=== PATIENT | male | born 1975 | race American Indian/Alaskan Native ===

== ENCOUNTER 2018-06-12 22:10 | Inpatient (IN) | payer MEDICAID ==
[2018-06-13] MEDS ORDERED: NACL 0.9% 1000 ML IV ONE (00:13)
[2018-06-13 00:45] LABS: Basophils % (Auto) 0.1 % (0.0-1.8); Eosinophils % (Auto) 0.2 % (0.0-4.3); Hematocrit 37.9 % (35.5-45.6); Hemoglobin 12.5 gm/dl (11.8-15.2); Lymphocytes # (Auto) 0.9 K/mm3 (1.2-5.4); Mean Corpuscular HGB Conc 33 % (32-34); Mean Corpuscular Volume 89 fl (84-94); Monocytes # (Auto) 0.3 K/mm3 (0.0-0.8); Monocytes % (Auto) 5.5 % (0.0-7.3); Platelet Count 197 K/mm3 (140-440); Red Blood Count 4.28 M/mm3 (3.65-5.03); Red Cell Distribution Width 14.5 % (13.2-15.2)
[2018-06-13 01:24] LABS: Alanine Aminotransferase 35 units/L (7-56); Albumin 4.2 g/dL (3.9-5); BUN/Creatinine Ratio 16; Blood Urea Nitrogen 23 mg/dL (9-20); Calcium 9.1 mg/dL (8.4-10.2); Hemolysis Index 37
--- NOTE | 2018-06-13 01:36 | XRay Report ---
FINAL REPORT EXAM: XR CHEST ROUTINE 2V HISTORY: cough, fever TECHNIQUE: PA and lateral views of the chest were submitted. FINDINGS: The lungs are hyperinflated. There is patchy airspace disease in the left lower lobe and lingula comp atible with pneumonia. The right lung is clear. The heart size is normal. Pleural fluid is not seen. The skeletal structures do not show any acute changes. IMPRESSION: COPD. Patchy pneumonia in the left lower lobe and lingula.
[2018-06-13] MEDS ORDERED: ZITHROMAX 500 MG in NACL 0.9% 250ML 250 ML IV ONE (01:49)
[2018-06-13] MEDS ORDERED: ROCEPHIN/NS 2 GM/100 ML 2 GM/100 ML BAG IV ONE (01:49)
--- NOTE | 2018-06-13 02:21 | Emergency Department Report ---
- General Chief Complaint: Upper Respiratory Infection Stated Complaint: FLU LIKE SX Time Seen by Provider: 06/13/18 00:15 Source: patient, EMS Mode of arrival: Ambulatory Limitations: No Limitations - History of Present Illness Initial Comments: Patient is a 42-year-old [place] male who has a past history of HIV who does not know his CD4 count and states he is on medications but does not show which ones who is coming in with 4 days of flulike symptoms. Patient states had a c ough congestion with subjective fevers or throat. Patient also has had body aches and diarrhea as well. Patient denies any vomiting. Patient states he has diarrhea every time he eats. Associated Symptoms: fever, chills, myalgias, diaphoresis, nasal congestion, sore throat, cough, diarrhea, weight loss. denies: headache, rhinorrhea, stiff neck, chest pain, shortness of breath, abdominal pain, nausea, vomiting, rash, confusion, right sweats, epistaxis, hoarseness, ear pain - Related Data Allergies Allergy/AdvReac Type Severity Reaction Status Date / Time No Known Allergies Allergy Verified 06/13/18 01:52 ED Review of Systems ROS: Stated complaint: FLU LIKE SX Other details as noted in HPI Comment: All other systems reviewed and negative ED Past Medical Hx - Past Medical History Previous Medical History?: Yes Hx HIV: Yes - Surgical History Past Surgical History?: No - Social History Smoking Status: Never Smoker ED Physical Exam - General Limitations: No Limitations General appearance: alert, in no apparent distress - Head Head exam: Present: atraumatic, normocephalic - Eye Eye exam: Present: normal appearance - ENT ENT exam: Present: mucous membranes moist - Neck Neck exam: Present: normal inspection - Respiratory Respiratory exam: Present: normal lung sounds bilaterally, rhonchi. Absent: respiratory distress, wheezes, rales, stridor - Cardiovascular Cardiovascular Exam: Present: regular rate, normal rhythm, normal heart sounds. Absent: systolic murmur, diastolic murmur, rubs, gallop - GI/Abdominal GI/Abdominal exam: Present: soft, normal bowel sounds. Absent: distended, tenderness, guarding, rebound - Rectal Rectal exam: Present: deferred - Extremities Exam Extremities exam: Present: normal inspection - Back Exam Back exam: Present: normal inspection - Neurological Exam Neurological exam: Present: alert, oriented X3 - Psychiatric Psychiatric exam: Present: normal affect, normal mood - Skin Skin exam: Present: warm, dry, intact, normal color. Absent: rash ED Course Vital Signs 06/12/18 06/12/18 06/13/18 22:35 23:45 00:46 Temperature 98.2 F 98.2 F Pulse Rate 89 89 89 Respiratory 20 20 19 Rate Blood Pressure 189/166 88/60 102/71 O2 Sat by Pulse 96 94 98 Oximetry 06/13/18 01:19 Temperature Pulse Rate 66 Respiratory 16 Rate Blood Pressure 94/66 O2 Sat by Pulse Oximetry ED Medical Decision Making - Lab Data Result diagrams: 06/13/18 00:31 06/13/18 00:31 Labs 06/13/18 06/13/18 06/13/18 00:31 00:31 00:31 WBC 4.6 RBC 4.28 Hgb 12.5 Hct 37.9 MCV 89 MCH 29 MCHC 33 RDW 14.5 Plt Count 197 Lymph % (Auto) 20.0 [place] % (Auto) 5.5 Eos % (Auto) 0.2 Baso % (Auto) 0.1 Lymph # 0.9 L [place] # 0.3 Eos # 0.0 Baso # 0.0 Seg Neutrophils % 74.2 H Seg Neutrophils # 3.4 VBG pH Sodium 141 Potassium 4.1 Chloride 102.9 Carbon Dioxide 19 L Anion Gap 23 BUN 23 H Creatinine 1.4 Estimated GFR > 60 BUN/Creatinine Ratio 16 Glucose 111 H Lactic Acid 2.90 H* Calcium 9.1 Total Bilirubin 0.20 AST 72 H ALT 35 Alkaline Phosphatase 117 Total Protein 8.5 H Albumin 4.2 Albumin/Globulin Ratio 1.0 06/13/18 00:31 WBC RBC Hgb Hct MCV MCH MCHC RDW Plt Count Lymph % (Auto) [place] % (Auto) Eos % (Auto) Baso % (Auto) Lymph # Cotton # Eos # Baso # Seg Neutrophils % Seg Neutrophils # VBG pH 7.313 L Sodium Potassium Chloride Carbon Dioxide Anion Gap BUN Creatinine Estimated GFR BUN/Creatinine Ratio Glucose Lactic Acid Calcium Total Bilirubin AST ALT Alkaline Phosphatase Total Protein Albumin Albumin/Globulin Ratio - EKG Data -: EKG Interpreted by Oh EKG shows normal: sinus rhythm, axis, intervals, QRS complexes, ST-T waves Rate: normal - EKG Data Interpretation: normal EKG - Radiology Data Chest x-ray shows changes consistent with COPD. There is patchy pneumonia in the left lower lobe and lingula - Medical Decision Making Patient's brief hypotension was corrected with IV fluids. Patient was subjective fevers at home and diagnosed with pneumonia here in emergency department. Because of his immunocompromised patient will be admitted to the hospitalist under Dr. Starkey. Critical Care Time: Yes (30) Critical care attestation.: If time is entered above; I have spent that time in minutes in the direct care of this critically ill patient, excluding procedure time. ED Disposition Clinical Impression: Pneumonia Qualifiers: Pneumonia type: due to unspecified organism Laterality: left Lung location: lower lobe of lung Qualified Code(s): J18.1 - Lobar pneumonia, unspecified organism Disposition: DC-09 OP ADMIT IP TO THIS HOSP Is pt being admited?: Yes Does the pt Need Aspirin: No Condition: Stable Instructions: Bacterial Pneumonia (ED) Referrals: PRIMARY CARE, [Primary Care Provider] - 3-5 Days Time of Disposition: 02:21
[2018-06-13] MEDS ORDERED: DIFLUCAN 200 MG/100 ML BAG IV ONE (02:34)
[2018-06-13] MEDS ORDERED: DIFLUCAN PO ONE (02:35)
[2018-06-13] MEDS ORDERED: SODIUM CHLORIDE FLUSH SYRINGE 10 ML IV PRN (02:57)
[2018-06-13] MEDS ORDERED: TYLENOL PO PRN (02:57)
[2018-06-13] MEDS ORDERED: ZOFRAN IV PRN (02:57)
--- NOTE | 2018-06-13 03:08 | History and Physical Report ---
History of Present Illness Date of examination: 06/13/18 History of present illness: 42-year-old male with a history of HIV, unknown CD4 count comes emergency room with complaints of cough productive of yellow phlegm, nausea vomiting and diarrhea 4 days. Also complaining of generalized weakness, difficulty eating Review of systems Constitutional: no weight loss, chills, fever Ears, eyes, nose, mouth and throat: no nasal congestion, no nasal discharge, no sinus pressure, no vision change, no red eye. Neck: No neck pain or rigidity. Cardiovascular: no palpitations, chest pain Respiratory: no shortness of breath Gastrointestinal: no hematochezia, abdominal pain Genitourinary : no frequency , no hematuria Musculoskeletal: no joint swelling or muscle ache Integumentary: no rash, no pruritis Neurological: no parathesias, no focal weakness Endocrine: no cold or heat intolerance, no polyuria or polydipsia Hematologic/Lymphatic: no easy bruising, no easy bleeding, no gland swelling Allergic/Immunologic: no urticaria, no angioedema. PAST MEDICAL HISTORY: HIV, unknown CD4 PAST SURGICAL HISTORY: None SOCIAL HISTORY: Denies alcohol, drugs, tobacco FAMILY HISTORY: Hypertension Medications and Allergies Allergies Allergy/AdvReac Type Severity Reaction Status Date / Time No Known Allergies Allergy Verified 06/13/18 01:52 Home Medications Medication Instructions Recorded Confirmed Last Taken Type Unobtainable 06/13/18 06/13/18 Unknown History Active Meds: Active Medications Acetaminophen (Tylenol) 650 mg PO Q4H PRN PRN Reason: Pain MILD(1-3)/Fever >100.5/VILLAREAL Azithromycin (Zithromax) 500 mg PO DAILY [facility] Enoxaparin Sodium (Lovenox) 30 mg SUB-Q QDAY [facility] Fluconazole (Diflucan) 200 mg PO ONCE ONE Stop: 06/13/18 02:36 Last Admin: 06/13/18 02:53 Dose: Not Given Documented by: Fluconazole (Diflucan) 100 mg PO QDAY [facility] Fluconazole (Diflucan) 200 mg in 100 mls @ 100 mls/hr IV ONCE ONE; Protocol Stop: 06/13/18 03:33 Last Admin: 06/13/18 03:02 Dose: 100 mls/hr Documented by: Sodium Chloride (Nacl 0.9% 1000 Ml) 1,000 mls @ 125 mls/hr IV DIRECT [facility] Ceftriaxone Sodium (Rocephin/Ns 1 Gm/50 Ml) 1 gm in 50 mls @ 100 mls/hr IV Q24HR [facility]; Protocol Ondansetron HCl (Zofran) 4 mg IV Q8H PRN PRN Reason: Nausea And Vomiting Sodium Chloride (Sodium Chloride Flush Syringe 10 Ml) 10 ml IV BID [facility] Sodium Chloride (Sodium Chloride Flush Syringe 10 Ml) 10 ml IV PRN PRN PRN Reason: LINE FLUSH Exam - Physical Exam Narrative exam: General Apperance: The patient lying in bed, breathing comfortable HEENT: Normocephalic, atraumatic. Pupils equally round and reactive to light, EOMI, no sclericterus or JVD or thyromegaly or nodule. , no carotid bruit, mucous membranes moist, positive white exudate, no erythema Heart: S1-S2, regular is rhythm Lungs: Crackles on the left, breathing comfortable Abdomen: Positive bowel sounds, soft, nontender, nondistended, no organomegaly Extremities: No edema cyanosis clubbing Skin: no rash, nodule, warm and dry Neuro: cranial nerves 2-12 intact, speech is fluent, motor/sensory intact - Constitutional Vitals: Temp Pulse Resp BP Pulse Ox 98.2 F 86 20 106/53 99 06/12/18 23:45 06/13/18 02:30 06/13/18 02:30 06/13/18 02:30 06/13/18 02:30 Results - Labs CBC & Chem 7: 06/13/18 00:31 06/13/18 00:31 Labs: Abnormal lab results 06/13/18 06/13/18 06/13/18 Range/Units 00:31 00:31 00:31 Lymph # 0.9 L (1.2-5.4) K/mm3 Seg Neutrophils % 74.2 H (40.0-70.0) % VBG pH (7.320-7.420) Carbon Dioxide 19 L (22-30) mmol/L BUN 23 H (9-20) mg/dL Glucose 111 H (75-100) mg/dL Lactic Acid 2.90 H* (0.7-2.0) mmol/L AST 72 H (5-40) units/L Total Protein 8.5 H (6.3-8.2) g/dL 06/13/18 06/13/18 Range/Units 00:31 02:09 Lymph # (1.2-5.4) K/mm3 Seg Neutrophils % (40.0-70.0) % VBG pH 7.313 L (7.320-7.420) Carbon Dioxide (22-30) mmol/L BUN (9-20) mg/dL Glucose (75-100) mg/dL Lactic Acid 2.10 H* (0.7-2.0) mmol/L AST (5-40) units/L Total Protein (6.3-8.2) g/dL - Imaging and Cardiology Chest x-ray: report reviewed Assessment and Plan Assessment Community-acquired pneumonia Oral candidiasis Diarrhea Plan Admit to medicine Start IV fluid, Rocephin, azithromycin Follow cultures, check stool cultures Start fluconazole DVT prophylaxis
[2018-06-13] MEDS: NACL 0.9% 1000 ML 1,000 ML IV SCH ×3 (04:55→21:42)
[2018-06-13 07:34] LABS: Basophils % (Auto) 0.4 % (0.0-1.8); Eosinophils % (Auto) 0.3 % (0.0-4.3); Hematocrit 29.2 % (35.5-45.6); Hemoglobin 9.5 gm/dl (11.8-15.2); Lymphocytes # (Auto) 0.4 K/mm3 (1.2-5.4); Lymphocytes % (Auto) 16.1 % (13.4-35.0); Mean Corpuscular HGB Conc 33 % (32-34); Mean Corpuscular Volume 86 fl (84-94); Monocytes # (Auto) 0.3 K/mm3 (0.0-0.8); Monocytes % (Auto) 10.5 % (0.0-7.3); Platelet Count 184 K/mm3 (140-440); Red Blood Count 3.39 M/mm3 (3.65-5.03)
[2018-06-13 08:12] LABS: BUN/Creatinine Ratio 14; Blood Urea Nitrogen 17 mg/dL (9-20); Calcium 7.9 mg/dL (8.4-10.2); Hemolysis Index 3
[2018-06-13] MEDS: LOVENOX SUB-Q SCH ×2 (09:04→09:06)
[2018-06-13] MEDS: SODIUM CHLORIDE FLUSH SYRINGE 10 ML IV SCH ×2 (09:05→21:43)
[2018-06-13] MEDS ORDERED: LOVENOX SUB-Q SCH (10:00)
--- NOTE | 2018-06-13 10:32 | Event Note ---
Date: 06/13/18 Patient reevaluated Doing better
[2018-06-14] MEDS: NACL 0.9% 1000 ML 1,000 ML IV SCH ×2 (04:11→16:37)
--- NOTE | 2018-06-14 08:26 | Progress Note ---
Assessment and Plan Assessment and plan: 42-year-old male with a history of HIV, unknown CD4 count comes emergency room with complaints of cough productive of yellow phlegm, nausea vomiting and diarrhea 4 days. Also complaining of generalized weakness, difficulty eating. In the ED the patient was Hypotensive requiring fluid resuscitation. Imaging was concrning for Patcy Pneumonia in the left lower lobe and Lingular. Rapid flu test was doen and is negative. Patient was admitted for monitoring due to his immunocompromised state. * Radiology Data: Chest x-ray shows changes consistent with COPD. There is patchy pneumonia in the left lower lobe and lingula Community-acquired pneumonia-Left lobar in an immunocompromised patient Oral candidiasis HIV Leukopenia Diarrhea Plan Continue supportive care Obtain ID consult Check status of the lymphocytes Start IV fluid, Rocephin, azithromycin Follow cultures, await check stool cultures Start fluconazole DVT prophylaxis History Interval history: Patient is seen today for: Diarrhea, shortness of breath Seen and examined at bedside; 24hour events reviewed; nursing staff ; no adverse overnight events reported to me; Denies any chest pain, nausea, vomiting. Still reports diarrhea. No fever noted blood pressure controlled Hospitalist Physical - Physical exam Narrative exam: VITAL SIGNS: Reviewed. GENERAL: The patient appeared ill appearing lethargic. Vital signs as documented. HEAD: No signs of head trauma. EYES: Pupils are equal. Extraocular motions intact. EARS: Hearing grossly intact. MOUTH: Oropharynx clear opacities over the phone. NECK: No adenopathy, no JVD. CHEST: Chest with diminished breath sounds bilaterally. No wheezes, rales, or rhonchi. CARDIAC: Regular rate and rhythm. S1 and S2, without murmurs, gallops, or rubs. VASCULAR: No Edema. Peripheral pulses normal and equal in all extremities. ABDOMEN: Soft, without detectable tenderness. No sign of distention. No rebound or guarding, and no masses palpated. Bowel Sounds normal. MUSCULOSKELETAL: Good range of motion of all major joints. Extremities without clubbing, cyanosis or edema. NEUROLOGIC EXAM: Awake but lethargic otherwise oriented x 3. No focal sensory or strength deficits. Speech normal. Follows commands. PSYCHIATRIC: Mood normal. SKIN: Cellulitic lesion over the perera - Constitutional Vitals: Temp Pulse Resp BP Pulse Ox 98.1 F 53 L 20 100/71 98 06/14/18 04:08 06/14/18 04:08 06/14/18 04:08 06/14/18 04:08 06/14/18 04:08 Results - Labs CBC & Chem 7: 06/13/18 07:11 06/13/18 07:11 Labs: Laboratory Last Values WBC 2.7 K/mm3 (4.5-11.0) L 06/13/18 07:11 RBC 3.39 M/mm3 (3.65-5.03) L 06/13/18 07:11 Hgb 9.5 gm/dl (11.8-15.2) L D 06/13/18 07:11 Hct 29.2 % (35.5-45.6) L D 06/13/18 07:11 MCV 86 fl (84-94) 06/13/18 07:11 MCH 28 pg (28-32) 06/13/18 07:11 MCHC 33 % (32-34) 06/13/18 07:11 RDW 14.0 % (13.2-15.2) 06/13/18 07:11 Plt Count 184 K/mm3 (140-440) 06/13/18 07:11 Lymph % (Auto) 16.1 % (13.4-35.0) 06/13/18 07:11 [place] % (Auto) 10.5 % (0.0-7.3) H 06/13/18 07:11 Eos % (Auto) 0.3 % (0.0-4.3) 06/13/18 07:11 Baso % (Auto) 0.4 % (0.0-1.8) 06/13/18 07:11 Lymph # 0.4 K/mm3 (1.2-5.4) L 06/13/18 07:11 [place] # 0.3 K/mm3 (0.0-0.8) 06/13/18 07:11 Eos # 0.0 K/mm3 (0.0-0.4) 06/13/18 07:11 Baso # 0.0 K/mm3 (0.0-0.1) 06/13/18 07:11 Seg Neutrophils % 72.7 % (40.0-70.0) H 06/13/18 07:11 Seg Neutrophils # 2.0 K/mm3 (1.8-7.7) 06/13/18 07:11 VBG pH 7.313 (7.320-7.420) L 06/13/18 00:31 Sodium 141 mmol/L (137-145) 06/13/18 07:11 Potassium 3.3 mmol/L (3.6-5.0) L 06/13/18 07:11 Chloride 109.8 mmol/L (98-107) H 06/13/18 07:11 Carbon Dioxide 19 mmol/L (22-30) L 06/13/18 07:11 Anion Gap 16 mmol/L 06/13/18 07:11 BUN 17 mg/dL (9-20) 06/13/18 07:11 Creatinine 1.2 mg/dL (0.8-1.5) 06/13/18 07:11 Estimated GFR > 60 ml/min 06/13/18 07:11 BUN/Creatinine Ratio 14 % 06/13/18 07:11 Glucose 88 mg/dL (75-100) 06/13/18 07:11 Lactic Acid 1.20 mmol/L (0.7-2.0) 06/13/18 07:11 Calcium 7.9 mg/dL (8.4-10.2) L 06/13/18 07:11 Total Bilirubin 0.20 mg/dL (0.1-1.2) 06/13/18 00:31 AST 72 units/L (5-40) H 06/13/18 00:31 ALT 35 units/L (7-56) 06/13/18 00:31 Alkaline Phosphatase 117 units/L (35-129) 06/13/18 00:31 Total Protein 8.5 g/dL (6.3-8.2) H 06/13/18 00:31 Albumin 4.2 g/dL (3.9-5) 06/13/18 00:31 Albumin/Globulin Ratio 1.0 % 06/13/18 00:31 C. difficile Toxin A&B Negative (Negative) 06/13/18 Unknown
[2018-06-14] MEDS ORDERED: DIFLUCAN PO SCH (10:00)
--- NOTE | 2018-06-14 10:18 | Consultation ---
History of Present Illness - Reason for Consult Consult date: 06/14/18 Community Acquired Pnuemonia, HIV Requesting physician: JOSH WELCH - History of Present Illness This patient is a 42 year old male with a past medical history of HIV. who does not know his current CD4 count, who came to the ED on 06/13/18 with complaints of a 4 day history of flulike symptoms. Patient states that he had cough, congestion, fevers body aches and diarrhea. On admission WBC 2.7, Creatine 1.2, Lactic acid 2.9, Temperature 98.2, HR 89, BP 102/71, Chest xray shows patchy pneumonia in the left lower lobe and linguina., C-Diff toxin A & B was negative. Patient is a poor historian, but states that he was diagnosed with HIV in 2009. He states that he gets his antiretroviral drugs at the [facility] on [address], however he has not taken his medication in over a year because of transportation issues, He remembers his last CD4 count being 40? He states that he has not been feeling well over the last month, but 4 days ago his symptoms of general malaise, nausea, vomiting and diarrhea became increasingly worse. Review of Systems: General: no fever, +chills, nightsweats, weight change, and decreased appetite Cutaneous: no rash, pruritus Head: no headaches or injury Eyes: no changes in vision, eye pain, double vision Ears: no ear pain, ear discharge, ringing or hearing loss Nose: no nose bleeding, stuffiness Mouth & throat: white lesions on the tongue and and inner cheeks, +sore throat Neck: + pain, and tenderness, no node enlargement/lumps Respiratory: +no cough, wheezing, sputum, hemoptysis, pleuritic chest pain Cardiovascular: no chest pain, leg edema, cyanosis, VILLALTA, orthopnea Musculoskeletal: generalized weakness, muscle aches, no joint swelling Gastrointestinal: + nausea, +vomiting, +diarrhea, , no constipation, melena, bright red blood in stools, fecal incontinence, jaundice Genitourinary/Reproductive: no frequent urination, no dysuria, hematuria, incontinence Neurogical: no seizures, no headaches, generalized weakness no weakness Psychiatric: stable mood; no excessive anxiety,+ depression, + moodiness Medications and Allergies Allergies Allergy/AdvReac Type Severity Reaction Status Date / Time No Known Allergies Allergy Verified 06/13/18 01:52 Home Medications Medication Instructions Recorded Confirmed Last Taken Type Unobtainable 06/13/18 06/13/18 Unknown History Active Meds: Active Medications Acetaminophen (Tylenol) 650 mg PO Q4H PRN PRN Reason: Pain MILD(1-3)/Fever >100.5/VILLAREAL Azithromycin (Zithromax) 500 mg PO DAILY [facility] Enoxaparin Sodium (Lovenox) 40 mg SUB-Q QDAY@1000 [facility] Last Admin: 06/13/18 09:06 Dose: Not Given Documented by: Fluconazole (Diflucan) 100 mg PO QDAY [facility] Sodium Chloride (Nacl 0.9% 1000 Ml) 1,000 mls @ 125 mls/hr IV DIRECT [facility] Last Admin: 06/14/18 04:11 Dose: 125 mls/hr Documented by: Ceftriaxone Sodium (Rocephin/Ns 1 Gm/50 Ml) 1 gm in 50 mls @ 100 mls/hr IV Q24HR [facility]; Protocol Ondansetron HCl (Zofran) 4 mg IV Q8H PRN PRN Reason: Nausea And Vomiting Sodium Chloride (Sodium Chloride Flush Syringe 10 Ml) 10 ml IV BID [facility] Last Admin: 06/13/18 21:43 Dose: 10 ml Documented by: Sodium Chloride (Sodium Chloride Flush Syringe 10 Ml) 10 ml IV PRN PRN PRN Reason: LINE FLUSH Physical Examination - Physical Exam Narrative exam: Constitutional: Alert, slightly agitated, cachexia , Generalized weakness Head, Ears, Nose: Normocephalic, atraumatic. External ears, nose normal Eyes: Conjunctivae/corneas clear. No icterus. No ptosis. Neck: Supple, no meningeal signs Oral: dentition poor., +thrush Cardiovascular: S1, S2 normal. Respiratory: Good air entry, clear to auscultation bilaterally, diminished at the bases GI: Soft, non-tender; bowel sounds normal. No peritoneal signs Musculoskeletal: No pedal edema, no cyanosis, generalized weakness. Skin: No rash or abscess. Dry skin Hem/Lymphatic: No palpable cervical or supraclavicular nodes. No lymphangitis Psych: Affect: Flat Neurological: Awake, mostly noncommunicative - Constitutional Vitals: Vital Signs Temp Pulse Resp BP Pulse Ox 98.1 F 53 L 20 100/71 98 06/14/18 04:08 06/14/18 04:08 06/14/18 04:08 06/14/18 04:08 06/14/18 08:52 Temperature -Last 24 Hours Temperature 98.1 F Temperature 98.4 F Temperature 98.4 F Temperature 98.4 F Temperature 98.6 F Results - Labs CBC & Chem 7: 06/13/18 07:11 06/13/18 07:11 Assessment and Plan Imaging 06/13/2018 Chest:COPD. Patchy pneumonia in the left lower lobe and linguina Cultures: 06/13/2018 Blood; no growth to date 06/13/2018 Stool: Negative 06/13/2018 Urine: no growth to date A/P: 42-year-old male with a past medical history of HIV, unknown CD4 count, admitted with: 1.Community Acquired Pneumonia - Chest xray reveals Pnuemonia in the left lower lobe. Immunocopromised, HIV positive. Curently being treated with azithormycin and ceftriaxone 2. HIV- Unknown CD4 count/ Viral. 3. Oral Carolann Albicans - Continue Fluconazole at 200mg q day. Will order Magic mouthwash. 4. Diarrhea - C-diff and stool cultures negative Plan: -f/u Influenza rapid -f/u CD4 and Viral load -continue fluconazole at 200 mg q day for oral candidiasis -Continue azithromycin and Ceftriaxone -send stool for Giardia antigen and Cryptosporidium -If odynophagia is not better in 2-3 days consider GI med eval for EGD/esophageal biopsy -Order Magic mouth wash -Order Bactrim DS 2 tabs q 8 hours [facility] M: [phone] O:[phone]
[2018-06-14] MEDS: ZITHROMAX PO SCH (11:07)
[2018-06-14] MEDS: LOVENOX SUB-Q SCH ×2 (11:07→11:19)
[2018-06-14] MEDS: ROCEPHIN/NS 1 GM/50 ML 1 GM/50 ML BAG IV SCH (11:08)
[2018-06-14] MEDS: SODIUM CHLORIDE FLUSH SYRINGE 10 ML IV SCH ×2 (11:09→21:14)
[2018-06-14] MEDS: BACTRIM DS PO SCH ×2 (16:38→21:13)
[2018-06-14] MEDS: MAGIC MOUTHWASH PO SCH ×2 (20:54→21:13)
[2018-06-15] MEDS: BACTRIM DS PO SCH ×3 (05:40→21:38)
[2018-06-15 06:01] LABS: Hematocrit 28.6 % (35.5-45.6); Hemoglobin 9.5 gm/dl (11.8-15.2); Mean Corpuscular HGB Conc 33 % (32-34); Mean Corpuscular Volume 86 fl (84-94); Platelet Count 177 K/mm3 (140-440); Red Blood Count 3.34 M/mm3 (3.65-5.03); Red Cell Distribution Width 13.9 % (13.2-15.2)
[2018-06-15 07:37] LABS: BUN/Creatinine Ratio 2; Blood Urea Nitrogen 2 mg/dL (9-20); Calcium 7.7 mg/dL (8.4-10.2); Hemolysis Index 2
--- NOTE | 2018-06-15 08:47 | Progress Note ---
Assessment and Plan Imaging 06/13/2018 Chest:COPD. Patchy pneumonia in the left lower lobe and linguina Cultures: 06/13/2018 Blood; no growth to date 06/13/2018 Stool: Negative 06/13/2018 Urine: no growth to date A/P: 42-year-old male with a past medical history of HIV, unknown CD4 count, admitted with: 1.Community Acquired Pneumonia - Chest xray reveals Pneumonia in the left lower lobe. Immunocompromised, HIV positive. Currently being treated with bactrim, azithromycin and ceftriaxone 2. HIV- Unknown CD4 count/ Viral. 3. Severe Oral Candidiasis- Continue Fluconazole at 200mg q day. Will order Magic mouthwash. 4. Diarrhea - C-diff and stool cultures negative, diarrhea continuing Plan: -consult GI to eval for esophageal candidadis -f/u Influenza rapid -f/u CD4 and Viral load - pending -continue fluconazole at 200 mg q day for oral candidiasis D2 / total 14 days -Continue azithromycin and Ceftriaxone D2 -f/u stool for Giardia antigen and Cryptosporidium -continue Bactrim DS 2 tabs q 8 hours D2 [facility] M: [phone] O:[phone] Subjective Date of service: 06/15/18 Interval history: Patient seen and examined. Continues to complain about difficulty swallowing. Acute distress observed. Objective - Exam Narrative Exam: Constitutional: Alert, , cachexia , Generalized weakness Head, Ears, Nose: Normocephalic, atraumatic. External ears, nose normal Eyes: Conjunctivae/corneas clear. No icterus. No ptosis. Neck: Supple, no meningeal signs Oral: dentition poor., +thrush Cardiovascular: S1, S2 normal. Respiratory: Good air entry, clear to auscultation bilaterally, diminished at the bases GI: Soft, non-tender; bowel sounds normal. No peritoneal signs Musculoskeletal: No pedal edema, no cyanosis, generalized weakness. Skin: No rash or abscess. Dry skin Hem/Lymphatic: No palpable cervical or supraclavicular nodes. No lymphangitis Psych: Affect: Flat Neurological: Awake, mostly noncommunicative - Constitutional Vitals: Vital Signs Temp Pulse Resp BP Pulse Ox 99.0 F 57 L 18 106/62 98 06/15/18 06:39 06/15/18 06:39 06/15/18 06:39 06/15/18 06:39 06/15/18 06:39 Temperature -Last 24 Hours Temperature 99.0 F Temperature 98.7 F Temperature 99.6 F Temperature 98.4 F - Labs CBC & Chem 7: 06/15/18 04:18 06/15/18 06:37 Labs: Abnormal lab results 06/15/18 06/15/18 Range/Units 04:18 06:37 WBC 2.1 L (4.5-11.0) K/mm3 RBC 3.34 L (3.65-5.03) M/mm3 Hgb 9.5 L (11.8-15.2) gm/dl Hct 28.6 L (35.5-45.6) % Potassium 3.1 L (3.6-5.0) mmol/L Chloride 112.7 H (98-107) mmol/L Carbon Dioxide 17 L (22-30) mmol/L BUN 2 L (9-20) mg/dL Calcium 7.7 L (8.4-10.2) mg/dL
[2018-06-15] MEDS: ROCEPHIN/NS 1 GM/50 ML 1 GM/50 ML BAG IV SCH (10:16)
[2018-06-15] MEDS: DIFLUCAN PO SCH (10:16)
[2018-06-15] MEDS: ZITHROMAX PO SCH (10:16)
[2018-06-15] MEDS: LOVENOX SUB-Q SCH ×2 (10:16→10:25)
[2018-06-15] MEDS: MAGIC MOUTHWASH PO SCH ×3 (10:16→20:19)
[2018-06-15] MEDS: SODIUM CHLORIDE FLUSH SYRINGE 10 ML IV SCH ×2 (10:17→21:37)
--- NOTE | 2018-06-15 10:58 | Progress Note ---
Assessment and Plan Assessment and plan: 42-year-old male with a history of HIV, unknown CD4 count comes emergency room with complaints of cough productive of yellow phlegm, nausea vomiting and diarrhea 4 days. Also complaining of generalized weakness, difficulty eating. In the ED the patient was Hypotensive requiring fluid resuscitation. Imaging was concrning for Patcy Pneumonia in the left lower lobe and Lingular. Rapid flu test was doen and is negative. Patient was admitted for monitoring due to his immunocompromised state. * Radiology Data: Chest x-ray shows changes consistent with COPD. There is patchy pneumonia in the left lower lobe and lingula Community-acquired pneumonia-Left lobar in an immunocompromised patient Oral candidiasis-sever HIV Leukopenia Diarrhea Plan Continue supportive care ID input noted Monitor for resolution of Leukopenia GI consult Check status of the lymphocytes Antibiotics per ID Continue fluconazole AND MAGIC MOUTHWASH Follow cultures, await check stool cultures DVT prophylaxis Plan discussed with patient and GI History Interval history: Patient is seen today for: Diarrhea, shortness of breath Seen and examined at bedside; 24hour events reviewed; nursing staff ; no adverse overnight events reported to me; Denies any chest pain, nausea, vomiting. No further diarrhea but reports significant oral pain No fever noted blood pressure controlled Hospitalist Physical - Physical exam Narrative exam: VITAL SIGNS: Reviewed. GENERAL: The patient appeared ill appearing lethargic. Vital signs as documented. HEAD: No signs of head trauma. EYES: Pupils are equal. Extraocular motions intact. EARS: Hearing grossly intact. MOUTH: Oropharynx clear opacities -severe. NECK: No adenopathy, no JVD. CHEST: Chest with diminished breath sounds bilaterally. No wheezes, rales, or rhonchi. CARDIAC: Regular rate and rhythm. S1 and S2, without murmurs, gallops, or rubs. VASCULAR: No Edema. Peripheral pulses normal and equal in all extremities. ABDOMEN: Soft, without detectable tenderness. No sign of distention. No rebound or guarding, and no masses palpated. Bowel Sounds normal. MUSCULOSKELETAL: Good range of motion of all major joints. Extremities without clubbing, cyanosis or edema. NEUROLOGIC EXAM: Awake but lethargic otherwise oriented x 3. No focal sensory or strength deficits. Speech normal. Follows commands. PSYCHIATRIC: Mood normal. SKIN: Cellulitic lesion over the perera - Constitutional Vitals: Temp Pulse Resp BP Pulse Ox 99.0 F 57 L 18 106/62 98 06/15/18 06:39 06/15/18 06:39 06/15/18 06:39 06/15/18 06:39 06/15/18 06:39 Results - Labs CBC & Chem 7: 06/15/18 04:18 06/15/18 06:37 Labs: Laboratory Last Values WBC 2.1 K/mm3 (4.5-11.0) L 06/15/18 04:18 RBC 3.34 M/mm3 (3.65-5.03) L 06/15/18 04:18 Hgb 9.5 gm/dl (11.8-15.2) L 06/15/18 04:18 Hct 28.6 % (35.5-45.6) L 06/15/18 04:18 MCV 86 fl (84-94) 06/15/18 04:18 MCH 28 pg (28-32) 06/15/18 04:18 MCHC 33 % (32-34) 06/15/18 04:18 RDW 13.9 % (13.2-15.2) 06/15/18 04:18 Plt Count 177 K/mm3 (140-440) 06/15/18 04:18 Lymph % (Auto) 16.1 % (13.4-35.0) 06/13/18 07:11 [place] % (Auto) 10.5 % (0.0-7.3) H 06/13/18 07:11 Eos % (Auto) 0.3 % (0.0-4.3) 06/13/18 07:11 Baso % (Auto) 0.4 % (0.0-1.8) 06/13/18 07:11 Lymph # 0.4 K/mm3 (1.2-5.4) L 06/13/18 07:11 [place] # 0.3 K/mm3 (0.0-0.8) 06/13/18 07:11 Eos # 0.0 K/mm3 (0.0-0.4) 06/13/18 07:11 Baso # 0.0 K/mm3 (0.0-0.1) 06/13/18 07:11 Seg Neutrophils % 72.7 % (40.0-70.0) H 06/13/18 07:11 Seg Neutrophils # 2.0 K/mm3 (1.8-7.7) 06/13/18 07:11 VBG pH 7.313 (7.320-7.420) L 06/13/18 00:31 Sodium 142 mmol/L (137-145) 06/15/18 06:37 Potassium 3.1 mmol/L (3.6-5.0) L 06/15/18 06:37 Chloride 112.7 mmol/L (98-107) H 06/15/18 06:37 Carbon Dioxide 17 mmol/L (22-30) L 06/15/18 06:37 Anion Gap 15 mmol/L 06/15/18 06:37 BUN 2 mg/dL (9-20) L 06/15/18 06:37 Creatinine 1.0 mg/dL (0.8-1.5) 06/15/18 06:37 Estimated GFR > 60 ml/min 06/15/18 06:37 BUN/Creatinine Ratio 2 % 06/15/18 06:37 Glucose 97 mg/dL (75-100) 06/15/18 06:37 Lactic Acid 1.20 mmol/L (0.7-2.0) 06/13/18 07:11 Calcium 7.7 mg/dL (8.4-10.2) L 06/15/18 06:37 Total Bilirubin 0.20 mg/dL (0.1-1.2) 06/13/18 00:31 AST 72 units/L (5-40) H 06/13/18 00:31 ALT 35 units/L (7-56) 06/13/18 00:31 Alkaline Phosphatase 117 units/L (35-129) 06/13/18 00:31 Total Protein 8.5 g/dL (6.3-8.2) H 06/13/18 00:31 Albumin 4.2 g/dL (3.9-5) 06/13/18 00:31 Albumin/Globulin Ratio 1.0 % 06/13/18 00:31 C. difficile Toxin A&B Negative (Negative) 06/13/18 Unknown
[2018-06-15] MEDS ORDERED: K-DUR PO ONE (12:00)
[2018-06-15] MEDS: NACL 0.9% 1000 ML 1,000 ML IV SCH (12:53)
--- NOTE | 2018-06-15 14:15 | Gastroenterology Consultation ---
Addendum entered and electronically signed by LUNA PECK MD 06/15/18 18:35: I have personally interviewed and examined the patient. I agree with the above A/P. The patient has gross oral candidiasis, and this will probably respond to IV fluconazole. Will monitor stool studies for diarrhea. Mechanical soft (or liquid diet) until symptoms improved. Original Note: History of Present Illness - Reason for Consult Consult date: 06/15/18 difficultly eating/oral candidiasis Requesting physician: JOSH WELCH - History of Present Illness Patient is a 42 y/o male with PMH of HIV (off antiretroviral meds for over a year; unknown CD4 count) who presented to ED with c/o flulike symptoms to include fever, cough, body aches, generalized weakness, and diarrhea. Upon admission, CXR showed pneumonia to which he was admitted and currently being treated for, along with HIV, leukopenia, diarrhea, and severe oral candidiasis with associated difficulty eating to which GI has been consulted. ID following. This afternoon patient was resting in bed, ill appearing, but w/o acute distress. Reports pain with swallowing x 4 days. Admits to recent wt loss due to current symptoms but denies CP, SOB, abd pain, N/V, dysphagia, signs of bleeding or constipation. Currently tolerating regular diet. No previous EGD. Past History Past Medical History: HIV/AIDS Past Surgical History: No surgical history Social history: denies: smoking, alcohol abuse Family history: hypertension Medications and Allergies Allergies Allergy/AdvReac Type Severity Reaction Status Date / Time No Known Allergies Allergy Verified 06/13/18 01:52 Home Medications Medication Instructions Recorded Confirmed Last Taken Type Unobtainable 06/13/18 06/13/18 Unknown History Active Meds: Active Medications Acetaminophen (Tylenol) 650 mg PO Q4H PRN PRN Reason: Pain MILD(1-3)/Fever >100.5/VILLAREAL Azithromycin (Zithromax) 500 mg PO DAILY ON LICENSE OF [facility] Last Admin: 06/15/18 10:16 Dose: 500 mg Documented by: Enoxaparin Sodium (Lovenox) 40 mg SUB-Q QDAY@1000 ON LICENSE OF [facility] Last Admin: 06/15/18 10:25 Dose: Not Given Documented by: Fluconazole (Diflucan) 200 mg PO QDAY ON LICENSE OF [facility] Last Admin: 06/15/18 10:16 Dose: 200 mg Documented by: Sodium Chloride (Nacl 0.9% 1000 Ml) 1,000 mls @ 125 mls/hr IV DIRECT ON LICENSE OF [facility] Last Admin: 06/15/18 12:53 Dose: 125 mls/hr Documented by: Ceftriaxone Sodium (Rocephin/Ns 1 Gm/50 Ml) 1 gm in 50 mls @ 100 mls/hr IV Q24HR ON LICENSE OF [facility]; Protocol Last Admin: 06/15/18 10:16 Dose: 100 mls/hr Documented by: Lidocaine HCl (Magic Mouthwash) 15 ml PO TID ON LICENSE OF [facility] Last Admin: 06/15/18 10:16 Dose: 15 ml Documented by: Ondansetron HCl (Zofran) 4 mg IV Q8H PRN PRN Reason: Nausea And Vomiting Sodium Chloride (Sodium Chloride Flush Syringe 10 Ml) 10 ml IV BID ON LICENSE OF [facility] Last Admin: 06/15/18 10:17 Dose: Not Given Documented by: Sodium Chloride (Sodium Chloride Flush Syringe 10 Ml) 10 ml IV PRN PRN PRN Reason: LINE FLUSH Trimethoprim/Sulfamethoxazole (Bactrim Ds) 2 each PO Q8HR ON LICENSE OF [facility] Last Admin: 06/15/18 05:40 Dose: 2 each Documented by: medications reviewed/updated as required Review of Systems - Review of Systems All systems: negative Constitutional: weight loss, chills, weakness, poor appetite Ears, Nose, Throat: mouth pain, painful swallowing Respiratory: cough Gastrointestinal: diarrhea Exam - Constitutional Vital Signs: Temp Pulse Resp BP Pulse Ox 99.0 F 57 L 18 106/62 98 06/15/18 06:39 06/15/18 06:39 06/15/18 06:39 06/15/18 06:39 06/15/18 06:39 General appearance: no acute distress, disheveled - EENT ENT: thrush - Respiratory Respiratory: bilateral: diminished - Cardiovascular Rhythm: regular Heart Sounds: Present: S1 & S2 - Gastrointestinal General gastrointestinal: Present: soft, non-tender, non-distended, normal bowel sounds - Neurologic Neurological: alert and oriented x3 - Labs CBC & Chem 7: 06/15/18 04:18 06/15/18 06:37 Lab Results: Laboratory Results - last 24 hr 06/15/18 06/15/18 04:18 06:37 WBC 2.1 L RBC 3.34 L Hgb 9.5 L Hct 28.6 L MCV 86 MCH 28 MCHC 33 RDW 13.9 Plt Count 177 Sodium 142 Potassium 3.1 L Chloride 112.7 H Carbon Dioxide 17 L Anion Gap 15 BUN 2 L Creatinine 1.0 Estimated GFR > 60 BUN/Creatinine Ratio 2 Glucose 97 Calcium 7.7 L Assessment and Plan 1.odynophagia -etiology-likely 2/2 mehnaz esophagitis vs other -clinically, patient report pain with swallowing but denies dysphagia, abd pain, or N/V. Tolerating diet -agree with fluconazole per ID recommendations -start on PPI -no plans for EGD at this time unless symptoms fail to improve/resolve -continue supportive care -further recommendations to follow 2.severe oral candidiasis 3.community acquired penumonia 3.HIV 4.diarrhea -C-diff and WBCs negative -stool culture, Giardia antigen, and cryptosporidium pending
[2018-06-15] MEDS: PROTONIX IV SCH (15:37)
[2018-06-16] MEDS: NACL 0.9% 1000 ML 1,000 ML IV SCH ×2 (06:08→22:54)
[2018-06-16] MEDS: BACTRIM DS PO SCH ×3 (06:08→23:00)
[2018-06-16] MEDS: MAGIC MOUTHWASH PO SCH ×3 (08:25→22:53)
--- NOTE | 2018-06-16 09:27 | Progress Note ---
Assessment and Plan Assessment and plan: 42-year-old male with a history of HIV, unknown CD4 count comes emergency room with complaints of cough productive of yellow phlegm, nausea vomiting and diarrhea 4 days. Also complaining of generalized weakness, difficulty eating. In the ED the patient was Hypotensive requiring fluid resuscitation. Imaging was concrning for Patcy Pneumonia in the left lower lobe and Lingular. Rapid flu test was doen and is negative. Patient was admitted for monitoring due to his immunocompromised state. * Radiology Data: Chest x-ray shows changes consistent with COPD. There is patchy pneumonia in the left lower lobe and lingula Community-acquired pneumonia-Left lobar in an immunocompromised patient Oral candidiasis-severe Hypotensive HIV Leukopenia Diarrhea Plan Continue supportive care ID input noted Increase fluid to 150cc/hr after 1 liter bolus Discuss with ID about changing flucanozole to IV GI input noted Monitor for resolution of Leukopenia Antibiotics per ID Continue fluconazole AND MAGIC MOUTHWASH Follow cultures, await check stool cultures DVT prophylaxis Plan discussed with patient and GI History Interval history: Patient is seen today for: Diarrhea, shortness of breath Seen and examined at bedside; 24hour events reviewed; nursing staff ; no adverse overnight events reported to me; Denies any chest pain, nausea, vomiting. No further diarrhea but reports significant oral pain and is still persist although some improvement. Patient is tolerating some by mouth. No fever noted blood pressure controlled Hospitalist Physical - Physical exam Narrative exam: VITAL SIGNS: Reviewed. GENERAL: The patient appeared ill appearing lethargic. Vital signs as documented. HEAD: No signs of head trauma. EYES: Pupils are equal. Extraocular motions intact. EARS: Hearing grossly intact. MOUTH: Oropharynx clear opacities -severe. NECK: No adenopathy, no JVD. CHEST: Chest with diminished breath sounds bilaterally. No wheezes, rales, or rhonchi. CARDIAC: Regular rate and rhythm. S1 and S2, without murmurs, gallops, or rubs. VASCULAR: No Edema. Peripheral pulses normal and equal in all extremities. ABDOMEN: Soft, without detectable tenderness. No sign of distention. No rebound or guarding, and no masses palpated. Bowel Sounds normal. MUSCULOSKELETAL: Good range of motion of all major joints. Extremities without clubbing, cyanosis or edema. NEUROLOGIC EXAM: Awake but lethargic otherwise oriented x 3. No focal sensory or strength deficits. Speech normal. Follows commands. PSYCHIATRIC: Mood normal. SKIN: Cellulitic lesion over the perera - Constitutional Vitals: Temp Pulse Resp BP Pulse Ox 98.8 F 57 L 18 89/53 95 06/16/18 05:37 06/16/18 05:37 06/16/18 05:37 06/16/18 05:37 06/16/18 05:37 Results - Labs CBC & Chem 7: 06/15/18 04:18 06/15/18 06:37 Labs: Laboratory Last Values WBC 2.1 K/mm3 (4.5-11.0) L 06/15/18 04:18 RBC 3.34 M/mm3 (3.65-5.03) L 06/15/18 04:18 Hgb 9.5 gm/dl (11.8-15.2) L 06/15/18 04:18 Hct 28.6 % (35.5-45.6) L 06/15/18 04:18 MCV 86 fl (84-94) 06/15/18 04:18 MCH 28 pg (28-32) 06/15/18 04:18 MCHC 33 % (32-34) 06/15/18 04:18 RDW 13.9 % (13.2-15.2) 06/15/18 04:18 Plt Count 177 K/mm3 (140-440) 06/15/18 04:18 Lymph % (Auto) 16.1 % (13.4-35.0) 06/13/18 07:11 [place] % (Auto) 10.5 % (0.0-7.3) H 06/13/18 07:11 Eos % (Auto) 0.3 % (0.0-4.3) 06/13/18 07:11 Baso % (Auto) 0.4 % (0.0-1.8) 06/13/18 07:11 Lymph # 0.4 K/mm3 (1.2-5.4) L 06/13/18 07:11 [place] # 0.3 K/mm3 (0.0-0.8) 06/13/18 07:11 Eos # 0.0 K/mm3 (0.0-0.4) 06/13/18 07:11 Baso # 0.0 K/mm3 (0.0-0.1) 06/13/18 07:11 Seg Neutrophils % 72.7 % (40.0-70.0) H 06/13/18 07:11 Seg Neutrophils # 2.0 K/mm3 (1.8-7.7) 06/13/18 07:11 VBG pH 7.313 (7.320-7.420) L 06/13/18 00:31 Sodium 142 mmol/L (137-145) 06/15/18 06:37 Potassium 3.1 mmol/L (3.6-5.0) L 06/15/18 06:37 Chloride 112.7 mmol/L (98-107) H 06/15/18 06:37 Carbon Dioxide 17 mmol/L (22-30) L 06/15/18 06:37 Anion Gap 15 mmol/L 06/15/18 06:37 BUN 2 mg/dL (9-20) L 06/15/18 06:37 Creatinine 1.0 mg/dL (0.8-1.5) 06/15/18 06:37 Estimated GFR > 60 ml/min 06/15/18 06:37 BUN/Creatinine Ratio 2 % 06/15/18 06:37 Glucose 97 mg/dL (75-100) 06/15/18 06:37 Lactic Acid 1.20 mmol/L (0.7-2.0) 06/13/18 07:11 Calcium 7.7 mg/dL (8.4-10.2) L 06/15/18 06:37 Total Bilirubin 0.20 mg/dL (0.1-1.2) 06/13/18 00:31 AST 72 units/L (5-40) H 06/13/18 00:31 ALT 35 units/L (7-56) 06/13/18 00:31 Alkaline Phosphatase 117 units/L (35-129) 06/13/18 00:31 Total Protein 8.5 g/dL (6.3-8.2) H 06/13/18 00:31 Albumin 4.2 g/dL (3.9-5) 06/13/18 00:31 Albumin/Globulin Ratio 1.0 % 06/13/18 00:31 C. difficile Toxin A&B Negative (Negative) 06/13/18 Unknown
[2018-06-16] MEDS ORDERED: NACL 0.9% 1000 ML 1,000 ML IV ONE (10:00)
[2018-06-16] MEDS: ROCEPHIN/NS 1 GM/50 ML 1 GM/50 ML BAG IV SCH (11:25)
[2018-06-16] MEDS: DIFLUCAN PO SCH (11:25)
[2018-06-16] MEDS: PROTONIX IV SCH (11:25)
[2018-06-16] MEDS: ZITHROMAX PO SCH (11:44)
[2018-06-16] MEDS: LOVENOX SUB-Q SCH (11:46)
[2018-06-16] MEDS: SODIUM CHLORIDE FLUSH SYRINGE 10 ML IV SCH (11:47)
--- NOTE | 2018-06-16 12:09 | Progress Note ---
Assessment and Plan Imaging 06/13/2018 Chest:COPD. Patchy pneumonia in the left lower lobe and linguina Cultures: 06/13/2018 Blood; no growth to date 06/13/2018 Stool: Negative 06/13/2018 Urine: no growth to date A/P: 42-year-old male with a past medical history of HIV, unknown CD4 count, admitted with: 1.Community Acquired Pneumonia - Chest xray reveals Pneumonia in the left lower lobe. Immunocompromised, HIV positive. Currently being treated with bactrim, azithromycin and ceftriaxone 2. HIV- Unknown CD4 count/ Viral. 3. Severe Oral Candidiasis- Continue Fluconazole at 200mg q day. Will order Magic mouthwash.GI consult for EGD - started on PPI 4. Diarrhea - C-diff and stool cultures negative, diarrhea continuing Plan: -f/u Influenza rapid -f/u CD4 and Viral load - pending -continue fluconazole at 200 mg q day for oral candidiasis D2 / total 14 days -Continue azithromycin and Ceftriaxone D2 -f/u stool for Giardia antigen and Cryptosporidium -continue Bactrim DS 2 tabs q 8 hours D2 [facility] M: [id number] O:[phone] Subjective Date of service: 06/16/18 Interval history: Patient seen and examined. Continues to complain about difficulty swallowing. Acute distress observed. Objective - Exam Narrative Exam: Constitutional: Alert, , cachexia , Generalized weakness Head, Ears, Nose: Normocephalic, atraumatic. External ears, nose normal Eyes: Conjunctivae/corneas clear. No icterus. No ptosis. Neck: Supple, no meningeal signs Oral: dentition poor., +thrush Cardiovascular: S1, S2 normal. Respiratory: Good air entry, clear to auscultation bilaterally, diminished at the bases GI: Soft, non-tender; bowel sounds normal. No peritoneal signs Musculoskeletal: No pedal edema, no cyanosis, generalized weakness. Skin: No rash or abscess. Dry skin Hem/Lymphatic: No palpable cervical or supraclavicular nodes. No lymphangitis Psych: Affect: Flat Neurological: Awake, mostly noncommunicative - Constitutional Vitals: Vital Signs Temp Pulse Resp BP Pulse Ox 98.8 F 57 L 18 89/53 95 06/16/18 05:37 06/16/18 05:37 06/16/18 05:37 06/16/18 05:37 06/16/18 05:37 Temperature -Last 24 Hours Temperature 98.8 F Temperature 99.3 F Temperature 99.4 F Temperature 98.5 F - Labs CBC & Chem 7: 06/15/18 04:18 06/15/18 06:37
--- NOTE | 2018-06-16 12:46 | Gastroenterology Progress Note ---
Addendum entered and electronically signed by LUNA PECK MD 06/16/18 22:39: I have personally interviewed and examined the patient. I agree with the above A/P. Patient clinically stable but still gravely ill. Will follow. No change in plan. Original Note: Assessment and Plan 1.odynophagia -etiology-likely 2/2 mehnaz esophagitis vs other -clinically, patient report continued mouth pain and discomfort with swallowing. No dysphagia, abd pain, or N/V. Tolerating diet. -continue fluconazole per ID recommendations -continue PPI -mechanical soft diet until symptoms improved -no plans for EGD at this time unless symptoms fail to improve/resolve -continue supportive care 2.severe oral candidiasis 3.community acquired penumonia 3.HIV 4.diarrhea -improved per nursing -C-diff and WBCs negative -stool culture, Giardia antigen, and cryptosporidium pending Subjective Date of service: 06/16/18 Principal diagnosis: oral candidiasis Interval history: No acute distress. Reports continued mouth pain and discomfort with swallowing, but able to tolerate diet. No dysphagia. Denies abd pain or N/V. Objective - Constitutional Vitals: Temp Pulse Resp BP Pulse Ox 99.1 F 57 L 18 95/62 96 06/16/18 11:44 06/16/18 11:44 06/16/18 11:44 06/16/18 11:44 06/16/18 11:44 General appearance: no acute distress - EENT ENT: thrush - Respiratory Respiratory: bilateral: diminished - Cardiovascular Rhythm: other (bradycardia) - Gastrointestinal General gastrointestinal: Present: soft, non-tender, non-distended, normal bowel sounds - Neurologic Neurological: alert and oriented x3 - Labs CBC & Chem 7: 06/15/18 04:18 06/15/18 06:37
[2018-06-16 20:45] LABS: CD4/CD8 Ratio 0.03 (0.86-5.00)
[2018-06-17 04:45] LABS: Hematocrit 30.7 % (35.5-45.6); Hemoglobin 10.1 gm/dl (11.8-15.2); Mean Corpuscular HGB Conc 33 % (32-34); Mean Corpuscular Volume 86 fl (84-94); Platelet Count 154 K/mm3 (140-440); Red Blood Count 3.57 M/mm3 (3.65-5.03); Red Cell Distribution Width 13.9 % (13.2-15.2)
[2018-06-17 05:01] LABS: BUN/Creatinine Ratio 3; Blood Urea Nitrogen 3 mg/dL (9-20); Calcium 7.5 mg/dL (8.4-10.2); Hemolysis Index 7
[2018-06-17] MEDS: NACL 0.9% 1000 ML 1,000 ML IV SCH ×2 (05:49→15:18)
[2018-06-17] MEDS: BACTRIM DS PO SCH ×3 (05:50→21:47)
[2018-06-17] MEDS ORDERED: MAGNESIUM SULFATE IV ONE (08:17)
--- NOTE | 2018-06-17 08:32 | Progress Note ---
Assessment and Plan Assessment and plan: 42-year-old male with a history of HIV, unknown CD4 count comes emergency room with complaints of cough productive of yellow phlegm, nausea vomiting and diarrhea 4 days. Also complaining of generalized weakness, difficulty eating. In the ED the patient was Hypotensive requiring fluid resuscitation. Imaging was concrning for Patcy Pneumonia in the left lower lobe and Lingular. Rapid flu test was doen and is negative. Patient was admitted for monitoring due to his immunocompromised state. * Radiology Data: Chest x-ray shows changes consistent with COPD. There is patchy pneumonia in the left lower lobe and lingula Community-acquired pneumonia-Left lobar in an immunocompromised patient Oral candidiasis-severe Hypotensive HIV Hypokalemia Leukopenia-PERSIST Diarrhea Plan Continue supportive care ID input noted Replace K Continue fluid at 150cc/hr Change flucanozole to IV GI input noted Monitor for resolution of Leukopenia Antibiotics per ID Continue fluconazole AND MAGIC MOUTHWASH cultures and stool studies so far unremarkable DVT prophylaxis Plan discussed with patient and GI ANTICIPATE DISCHARGE IN AM History Interval history: Patient is seen today for: Diarrhea, shortness of breath Seen and examined at bedside; 24hour events reviewed; nursing staff ; no adverse overnight events reported to me; Denies any chest pain, nausea, vomiting. No further diarrhea but reports significant oral pain and is still persist although some improvement. Patient is tolerating some by mouth. No fever noted blood pressure controlled Hospitalist Physical - Physical exam Narrative exam: VITAL SIGNS: Reviewed. GENERAL: The patient appeared ill appearing lethargic. Vital signs as documented. HEAD: No signs of head trauma. EYES: Pupils are equal. Extraocular motions intact. EARS: Hearing grossly intact. MOUTH: Oropharynx clear opacities -severe. NECK: No adenopathy, no JVD. CHEST: Chest with diminished breath sounds bilaterally. No wheezes, rales, or rhonchi. CARDIAC: Regular rate and rhythm. S1 and S2, without murmurs, gallops, or rubs. VASCULAR: No Edema. Peripheral pulses normal and equal in all extremities. ABDOMEN: Soft, without detectable tenderness. No sign of distention. No rebound or guarding, and no masses palpated. Bowel Sounds normal. MUSCULOSKELETAL: Good range of motion of all major joints. Extremities without clubbing, cyanosis or edema. NEUROLOGIC EXAM: Awake but lethargic otherwise oriented x 3. No focal sensory or strength deficits. Speech normal. Follows commands. PSYCHIATRIC: Mood normal. SKIN: Cellulitic lesion over the perera - Constitutional Vitals: Temp Pulse Resp BP Pulse Ox 98.9 F 53 L 24 100/72 98 06/17/18 04:39 06/17/18 04:39 06/17/18 04:39 06/17/18 04:39 06/17/18 04:39 Results - Labs CBC & Chem 7: 06/17/18 04:06 06/17/18 04:06 Labs: Laboratory Last Values WBC 2.0 K/mm3 (4.5-11.0) L 06/17/18 04:06 RBC 3.57 M/mm3 (3.65-5.03) L 06/17/18 04:06 Hgb 10.1 gm/dl (11.8-15.2) L 06/17/18 04:06 Hct 30.7 % (35.5-45.6) L 06/17/18 04:06 MCV 86 fl (84-94) 06/17/18 04:06 MCH 28 pg (28-32) 06/17/18 04:06 MCHC 33 % (32-34) 06/17/18 04:06 RDW 13.9 % (13.2-15.2) 06/17/18 04:06 Plt Count 154 K/mm3 (140-440) 06/17/18 04:06 Lymph % (Auto) 16.1 % (13.4-35.0) 06/13/18 07:11 [place] % (Auto) 10.5 % (0.0-7.3) H 06/13/18 07:11 Eos % (Auto) 0.3 % (0.0-4.3) 06/13/18 07:11 Baso % (Auto) 0.4 % (0.0-1.8) 06/13/18 07:11 Lymph # 0.4 K/mm3 (1.2-5.4) L 06/13/18 07:11 [place] # 0.3 K/mm3 (0.0-0.8) 06/13/18 07:11 Eos # 0.0 K/mm3 (0.0-0.4) 06/13/18 07:11 Baso # 0.0 K/mm3 (0.0-0.1) 06/13/18 07:11 Seg Neutrophils % 72.7 % (40.0-70.0) H 06/13/18 07:11 Seg Neutrophils # 2.0 K/mm3 (1.8-7.7) 06/13/18 07:11 Abs Lymphs (Manual) 313 cells/uL (850-3900) L 06/14/18 08:48 VBG pH 7.313 (7.320-7.420) L 06/13/18 00:31 Sodium 138 mmol/L (137-145) 06/17/18 04:06 Potassium 3.0 mmol/L (3.6-5.0) L 06/17/18 04:06 Chloride 109.0 mmol/L (98-107) H 06/17/18 04:06 Carbon Dioxide 18 mmol/L (22-30) L 06/17/18 04:06 Anion Gap 14 mmol/L 06/17/18 04:06 BUN 3 mg/dL (9-20) L 06/17/18 04:06 Creatinine 1.0 mg/dL (0.8-1.5) 06/17/18 04:06 Estimated GFR > 60 ml/min 06/17/18 04:06 BUN/Creatinine Ratio 3 % 06/17/18 04:06 Glucose 79 mg/dL (75-100) 06/17/18 04:06 Lactic Acid 1.20 mmol/L (0.7-2.0) 06/13/18 07:11 Calcium 7.5 mg/dL (8.4-10.2) L 06/17/18 04:06 Total Bilirubin 0.20 mg/dL (0.1-1.2) 06/13/18 00:31 AST 72 units/L (5-40) H 06/13/18 00:31 ALT 35 units/L (7-56) 06/13/18 00:31 Alkaline Phosphatase 117 units/L (35-129) 06/13/18 00:31 Total Protein 8.5 g/dL (6.3-8.2) H 06/13/18 00:31 Albumin 4.2 g/dL (3.9-5) 06/13/18 00:31 Albumin/Globulin Ratio 1.0 % 06/13/18 00:31 Lymph Enumerat CD4/CD8 0.03 (0.86-5.00) L 06/14/18 08:48 % CD3 Cells 91 % (57-85) H 06/14/18 08:48 Absolute CD3 Count 283 cells/uL (840-3060) L 06/14/18 08:48 % CD4 Cells 3 % (30-61) L 06/14/18 08:48 Absolute CD4 Count 11 cells/uL (490-1740) L 06/14/18 08:48 % CD8 Cells 86 % (12-42) H 06/14/18 08:48 Absolute CD8 Count 268 cells/uL (180-1170) 06/14/18 08:48 % CD19 Cells 2 % (6-29) L 06/14/18 08:48 Absolute CD19 Count 6 cells/uL (110-660) L 06/14/18 08:48 C. difficile Toxin A&B Negative (Negative) 06/13/18 Unknown Influenza A (Rapid) Negative (Negative) 06/13/18 12:22 Influenza B (Rapid) Negative (Negative) 06/13/18 12:22
[2018-06-17] MEDS ORDERED: POTASSIUM CHLORIDE FEEDTUBE ONE ×2 (09:00→15:30)
[2018-06-17] MEDS: MAGIC MOUTHWASH PO SCH ×3 (09:02→21:46)
--- NOTE | 2018-06-17 09:31 | Progress Note ---
Assessment and Plan Imaging 06/13/2018 Chest: COPD. Patchy pneumonia in the left lower lobe and linguina Cultures: 06/13/2018 Blood; no growth to date 06/13/2018 Stool: Negative 06/13/2018 Urine: no growth to date A/P: 42-year-old male with a past medical history of HIV, unknown CD4 count, admitted with: 1.Community Acquired Pneumonia - Chest xray reveals Pneumonia in the left lower lobe. Immunocompromised, HIV positive. Currently being treated with bactrim, azithromycin and ceftriaxone. Influenza negative 2. HIV/AIDS - CD4 count 11. Viral load pending 3. Severe Oral Candidiasis- Continue Fluconazole at 200mg q day and Magic mouthwash. Oral care BID, with assistance from bedside nurse- order placed. 4. Diarrhea - Diarrhea Improving - C.Diff , Giardia and Cryptosporidium negative. Plan: -f/u Viral load , obtain HIV genotype -continue fluconazole at 200 mg q day for oral candidiasis D2 / total 14 days -Continue azithromycin and Ceftriaxone D4 of D5, after day 5 will do azithromycin 1200 once a week indefinably -continue Bactrim DS 2 tabs q 8 hours D4 of D21, after will do Bactrim DS 1 tab q day until CD4 is >200 -request oral care by nursing staff -Psych consult to evaluate for depression -ID follow up 2 weeks after discharge x 1, then with primary HIV provider [facility] M: [phone] O:[phone] Subjective Date of service: 06/17/18 Principal diagnosis: oral candidiasis Interval history: Patient seen and examined. Depressed affect. Discussion about importance of going to [facility] for medication. Labs reviewed with patient, questions answered. Objective - Exam Narrative Exam: Constitutional: Alert, , cachexia , Generalized weakness Head, Ears, Nose: Normocephalic, atraumatic. External ears, nose normal Eyes: Conjunctivae/corneas clear. No icterus. No ptosis. Neck: Supple, no meningeal signs Oral: dentition poor., +thrush Cardiovascular: S1, S2 normal. Respiratory: Good air entry, clear to auscultation bilaterally, diminished at the bases GI: Soft, non-tender; bowel sounds normal. No peritoneal signs Musculoskeletal: No pedal edema, no cyanosis, generalized weakness. Skin: No rash or abscess. Dry skin Hem/Lymphatic: No palpable cervical or supraclavicular nodes. No lymphangitis Psych: Depressed Affect: Flat Neurological: Awake, mostly noncommunicative - Constitutional Vitals: Vital Signs Temp Pulse Resp BP Pulse Ox 98.9 F 53 L 24 100/72 98 06/17/18 04:39 06/17/18 04:39 06/17/18 04:39 06/17/18 04:39 06/17/18 04:39 Temperature -Last 24 Hours Temperature 98.9 F Temperature 98.6 F Temperature 99.1 F - Labs CBC & Chem 7: 06/17/18 04:06 06/17/18 04:06 Labs: Abnormal lab results 06/14/18 06/17/18 06/17/18 Range/Units 08:48 04:06 04:06 WBC 2.0 L (4.5-11.0) K/mm3 RBC 3.57 L (3.65-5.03) M/mm3 Hgb 10.1 L (11.8-15.2) gm/dl Hct 30.7 L (35.5-45.6) % Abs Lymphs (Manual) 313 L (850-3900) cells/uL Potassium 3.0 L (3.6-5.0) mmol/L Chloride 109.0 H (98-107) mmol/L Carbon Dioxide 18 L (22-30) mmol/L BUN 3 L (9-20) mg/dL Calcium 7.5 L (8.4-10.2) mg/dL Lymph Enumerat CD4/CD8 0.03 L (0.86-5.00) % CD3 Cells 91 H (57-85) % Absolute CD3 Count 283 L (840-3060) cells/uL % CD4 Cells 3 L (30-61) % Absolute CD4 Count 11 L (490-1740) cells/uL % CD8 Cells 86 H (12-42) % % CD19 Cells 2 L (6-29) % Absolute CD19 Count 6 L (110-660) cells/uL
[2018-06-17] MEDS ORDERED: MAGNESIUM SULFATE 1 GM in NACL 0.9% 50 ML IV ONE (10:00)
[2018-06-17] MEDS: PROTONIX IV SCH (10:17)
[2018-06-17] MEDS: ZITHROMAX PO SCH (10:17)
[2018-06-17] MEDS: LOVENOX SUB-Q SCH (10:17)
[2018-06-17] MEDS: SODIUM CHLORIDE FLUSH SYRINGE 10 ML IV SCH ×3 (10:18→21:47)
[2018-06-17] MEDS: DIFLUCAN 200 MG/100 ML BAG IV SCH (10:20)
[2018-06-17] MEDS: KCL 10MEQ/100ML 10 MEQ/100 ML BAG IV SCH ×2 (10:20→10:21)
[2018-06-17] MEDS: ROCEPHIN/NS 1 GM/50 ML 1 GM/50 ML BAG IV SCH (10:44)
--- NOTE | 2018-06-17 11:19 | Gastroenterology Progress Note ---
Addendum entered and electronically signed by LUNA PECK MD 06/17/18 14:58: I have personally interviewed and examined the patient. I agree with the above A/P. The patient's oral thrush is much better; suspect dysphagia will rapidly improve. Original Note: Assessment and Plan 1.odynophagia -etiology-likely 2/2 mehnaz esophagitis vs other -clinically, patient reports slight improvement in mouth pain and discomfort with swallowing today. No dysphagia, abd pain, or N/V. Tolerating diet. -continue fluconazole x 14days per ID recommendations -continue PPI -no plans for EGD at this time- will consider as outpatient if symptoms fail to resolve after completion of fluconazole treatment -continue supportive care -recommend patient follow up in clinic in ~3 weeks upon d/c -will sign off, please call if needed 2.severe oral candidiasis 3.community acquired penumonia 3.HIV 4.diarrhea -improved - stool studies negative Subjective Date of service: 06/17/18 Principal diagnosis: oral candidiasis Interval history: No acute distress. Reports slight improvement in mouth pain and pain with swallowing today. Denies abd pain, dysphagia, or N/V. Tolerating diet. Objective - Constitutional Vitals: Temp Pulse Resp BP Pulse Ox 98.9 F 53 L 24 100/72 98 06/17/18 04:39 06/17/18 04:39 06/17/18 04:39 06/17/18 04:39 06/17/18 04:39 General appearance: no acute distress - EENT ENT: thrush - Respiratory Respiratory: bilateral: CTA - Cardiovascular Rhythm: other (bradycardia) - Gastrointestinal General gastrointestinal: Present: soft, non-tender, non-distended, normal bowel sounds - Labs CBC & Chem 7: 06/17/18 04:06 06/17/18 04:06 Labs: Laboratory Results - last 24 hr 06/13/18 06/14/18 06/17/18 12:22 08:48 04:06 WBC 2.0 L RBC 3.57 L Hgb 10.1 L Hct 30.7 L MCV 86 MCH 28 MCHC 33 RDW 13.9 Plt Count 154 Abs Lymphs (Manual) 313 L Sodium Potassium Chloride Carbon Dioxide Anion Gap BUN Creatinine Estimated GFR BUN/Creatinine Ratio Glucose Calcium Lymph Enumerat CD4/CD8 0.03 L % CD3 Cells 91 H Absolute CD3 Count 283 L % CD4 Cells 3 L Absolute CD4 Count 11 L % CD8 Cells 86 H Absolute CD8 Count 268 % CD19 Cells 2 L Absolute CD19 Count 6 L Influenza A (Rapid) Negative Influenza B (Rapid) Negative 06/17/18 04:06 WBC RBC Hgb Hct MCV MCH MCHC RDW Plt Count Abs Lymphs (Manual) Sodium 138 Potassium 3.0 L Chloride 109.0 H Carbon Dioxide 18 L Anion Gap 14 BUN 3 L Creatinine 1.0 Estimated GFR > 60 BUN/Creatinine Ratio 3 Glucose 79 Calcium 7.5 L Lymph Enumerat CD4/CD8 % CD3 Cells Absolute CD3 Count % CD4 Cells Absolute CD4 Count % CD8 Cells Absolute CD8 Count % CD19 Cells Absolute CD19 Count Influenza A (Rapid) Influenza B (Rapid)
[2018-06-17 14:28] LABS: HIV-1 RNA QN PCR 6.93 Log cps/mL
[2018-06-18] MEDS: NACL 0.9% 1000 ML 1,000 ML IV SCH ×5 (04:31→16:30)
[2018-06-18 05:44] LABS: Hematocrit 29.7 % (35.5-45.6); Hemoglobin 9.9 gm/dl (11.8-15.2); Mean Corpuscular HGB Conc 33 % (32-34); Mean Corpuscular Volume 85 fl (84-94); Platelet Count 143 K/mm3 (140-440); Red Cell Distribution Width 14.2 % (13.2-15.2)
[2018-06-18 06:14] LABS: BUN/Creatinine Ratio 3; Blood Urea Nitrogen 3 mg/dL (9-20); Calcium 7.6 mg/dL (8.4-10.2); Hemolysis Index 7
[2018-06-18] MEDS: BACTRIM DS PO SCH ×3 (06:23→21:38)
[2018-06-18] MEDS ORDERED: MAGNESIUM SULFATE IV ONE (07:56)
[2018-06-18] MEDS: MAGIC MOUTHWASH PO SCH ×3 (09:00→21:38)
--- NOTE | 2018-06-18 09:10 | Discharge Summary ---
Providers - Providers Date of Admission: 06/13/18 02:57 Attending physician: JOSH WELCH MD 06/14/18 08:26 Consult to Physician [CONS] Routine Comment: Consulting Provider: HAILEY MARTINEZ Physician Instructions: Reason For Exam: PENUMONIA IN IMMUNOCOMPROMISED PATIENT 06/15/18 16:45 Consult to Physician [CONS] Routine Comment: Consulting Provider: LUNA PECK Physician Instructions: Reason For Exam: oral candidiasis 06/17/18 14:11 Consult to Mental Health [CONS] Routine Reason For Exam: DEPRESSION Place consult to:: MENTAL HEALTH Notified:: Phone number called:: [phone] Was contact made?: Yes If yes, spoke with:: rachel Time called:: 15:14 Primary care physician: CHILD THERAPIST Hospitalization Reason for admission: diarrhea Condition: Stable Hospital course: 42-year-old male with a history of HIV, unknown CD4 count comes emergency room with complaints of cough productive of yellow phlegm, nausea vomiting and diarrhea 4 days. Also complaining of generalized weakness, difficulty eating. In the ED the patient was Hypotensive requiring fluid resuscitation. Imaging was concrning for Patcy Pneumonia in the left lower lobe and Lingular. Rapid flu test was doen and is negative. Patient was admitted for monitoring due to his immunocompromised state. * Radiology Data: Chest x-ray shows changes consistent with COPD. There is patchy pneumonia in the left lower lobe and lingula On presentation the patient was sent by infectious disease with subsequent consults to gastroenterology due to severe oral candidiasis. The patient was followed off treatment of fluconazole IV multiple replacement of electrolytes with potassium remained significantly low. His diarrhea did improve we did have extensive discussion about his HIV/AIDS management the patient does not appear to comprehend a significant on the severity of his disease. I'll offer for placement in a personal shelter to assist with his management was declined by the patient. He was counseled on need to follow up at the [facility]. He did improve to being able to tolerate diet he remained hypotensive despite multiple fluids but was asymptomatic. We did add midodrine on discharge for him and again extensively counseled on compliance with medication. He was consulted but the patient refused to speak with him. Antibiotics recommendation was discussed and ordered. Community-acquired pneumonia-Left lobar in an immunocompromised patient Oral candidiasis-severe Hypotensive-shocklike state HIV/AIDS CD4 count is 11 Hypokalemia Leukopenia-PERSIST Diarrhea Depression Disposition: DC-01 TO HOME OR SELFCARE Time spent for discharge: 35 mins Core Measure Documentation - Palliative Care Palliative Care/ Comfort Measures: Not Applicable - Core Measures Any of the following diagnoses?: none Exam - Physical Exam Narrative exam: VITAL SIGNS: Reviewed. GENERAL: The patient appeared ill appearing lethargic. Vital signs as documented. HEAD: No signs of head trauma. EYES: Pupils are equal. Extraocular motions intact. EARS: Hearing grossly intact. MOUTH: Oropharynx clear opacities -severe. NECK: No adenopathy, no JVD. CHEST: Chest with diminished breath sounds bilaterally. No wheezes, rales, or rhonchi. CARDIAC: Regular rate and rhythm. S1 and S2, without murmurs, gallops, or rubs. VASCULAR: No Edema. Peripheral pulses normal and equal in all extremities. ABDOMEN: Soft, without detectable tenderness. No sign of distention. No rebound or guarding, and no masses palpated. Bowel Sounds normal. MUSCULOSKELETAL: Good range of motion of all major joints. Extremities without clubbing, cyanosis or edema. NEUROLOGIC EXAM: Awake and oriented x 3. No focal sensory or strength deficits. Speech normal. Follows commands. PSYCHIATRIC: Mood normal. SKIN: Cellulitic lesion over the perera - Constitutional Vitals: Temp Pulse Resp BP Pulse Ox 99.2 F 52 L 18 85/51 97 06/18/18 05:00 06/18/18 05:00 06/18/18 05:00 06/18/18 05:00 06/18/18 05:00 Plan Activity: advance as tolerated, fall precautions Diet: regular Special Instructions: record daily weights, smoking cessation Follow up with: PRIMARY CAREMD [Primary Care Provider] - 3-5 Days LUNA PECK MD [Staff Physician] - 14 Days DILLON BORDEN MD [Staff Physician] - 7 Days Prescriptions: Azithromycin [Zithromax TAB] 1,200 mg PO QWEEK #4 tablet Fluconazole [Diflucan] 200 mg PO DAILY #7 tablet Loperamide [Imodium] 2 mg PO Q2H PRN #60 capsule PRN Reason: Diarrhea Midodrine HCl 2.5 mg PO DAILY #30 tablet Nystas/Diphen/Xyl Visc/Mylanta [Magic Mouthwash] 15 ml PO TID 14 Days oral.liqd Pantoprazole [Protonix TAB] 40 mg PO DAILY #30 tablet Sulfamethoxazole/Trimethoprim [Bactrim DS TAB] 2 each PO Q8HR 16 Days tablet
--- NOTE | 2018-06-18 09:20 | Progress Note ---
Assessment and Plan Imaging 06/13/2018 Chest: COPD. Patchy pneumonia in the left lower lobe and linguina Cultures: 06/13/2018 Blood; no growth to date 06/13/2018 Stool: Negative 06/13/2018 Urine: no growth to date A/P: 42-year-old male with a past medical history of HIV, unknown CD4 count, admitted with: 1.Community Acquired Pneumonia - Chest xray reveals Pneumonia in the left lower lobe. Immunocompromised, HIV positive. Currently being treated with bactrim, azithromycin and ceftriaxone. Influenza negative 2. HIV/AIDS - CD4 count 11. Viral load [id number] 3. Severe Oral Candidiasis- Continue Fluconazole at 200mg q day and Magic mouthwash. Oral care BID, with assistance from bedside nurse- order placed. 4. Diarrhea - Diarrhea Improving - C.Diff , Giardia and Cryptosporidium negative. Plan: -f/u Viral load , obtain HIV genotype -continue fluconazole at 200 mg q day for oral candidiasis D2 / total 14 days -Continue azithromycin and Ceftriaxone D5 of D5, after day 5 will do azithromycin 1200 once a week indefinably, -continue Bactrim DS 2 tabs q 8 hours D5 of D21 after will do Bactrim DS 1 tab q day until CD4 is >200 -request oral care by nursing staff - F/u Psych consult to evaluate for depression -ID follow up 2 weeks after discharge x 1,- 07/01/18, then with primary HIV provider [facility] M: [phone] O:[phone] Subjective Date of service: 06/18/18 Principal diagnosis: oral candidiasis Interval history: Patient seen and examined. Depressed affect, denies suicidal ideation. Discussion about going to personal correction vs hospice. Statd he could take care of himself at home. Discussed following up with ID clinic on 07/01/17 to get results of HIV genotype. Discharge medications discussed, verbalized understanding. Objective - Exam Narrative Exam: Constitutional: Alert, , cachexia , Generalized weakness Head, Ears, Nose: Normocephalic, atraumatic. External ears, nose normal Eyes: Conjunctivae/corneas clear. No icterus. No ptosis. Neck: Supple, no meningeal signs Oral: dentition poor., +thrush Cardiovascular: S1, S2 normal. Respiratory: Good air entry, clear to auscultation bilaterally, diminished at the bases GI: Soft, non-tender; bowel sounds normal. No peritoneal signs Musculoskeletal: No pedal edema, no cyanosis, generalized weakness. Skin: No rash or abscess. Dry skin Hem/Lymphatic: No palpable cervical or supraclavicular nodes. No lymphangitis Psych: Depressed, no suicidal ideation expressed. Affect: Flat Neurological: Awake, mostly noncommunicative - Constitutional Vitals: Vital Signs Temp Pulse Resp BP Pulse Ox 99.2 F 52 L 18 85/51 97 06/18/18 05:00 06/18/18 05:00 06/18/18 05:00 06/18/18 05:00 06/18/18 05:00 Temperature -Last 24 Hours Temperature 99.2 F Temperature 99.4 F Temperature 98.4 F Temperature 97.8 F - Labs CBC & Chem 7: 06/18/18 04:21 06/18/18 04:21 Labs: Abnormal lab results 06/15/18 06/18/18 06/18/18 Range/Units 08:50 04:21 04:21 WBC 2.5 L (4.5-11.0) K/mm3 RBC 3.50 L (3.65-5.03) M/mm3 Hgb 9.9 L (11.8-15.2) gm/dl Hct 29.7 L (35.5-45.6) % Potassium 3.3 L (3.6-5.0) mmol/L Chloride 110.1 H (98-107) mmol/L Carbon Dioxide 17 L (22-30) mmol/L BUN 3 L (9-20) mg/dL Calcium 7.6 L (8.4-10.2) mg/dL HIV-1 RNA PCR copies/ml [id number] H Copies/mL HIV-1 RNA (PCR) log 6.93 H Log cps/mL
[2018-06-18] MEDS ORDERED: MAGNESIUM SULFATE 1 GM in NACL 0.9% 50 ML IV ONE (11:00)
[2018-06-18] MEDS: ROCEPHIN/NS 1 GM/50 ML 1 GM/50 ML BAG IV SCH (11:16)
[2018-06-18] MEDS: PROTONIX IV SCH (11:16)
[2018-06-18] MEDS: ZITHROMAX PO SCH (11:16)
[2018-06-18] MEDS: DIFLUCAN 200 MG/100 ML BAG IV SCH (11:17)
[2018-06-18] MEDS: KCL 10MEQ/100ML 10 MEQ/100 ML BAG IV SCH ×4 (11:17→16:20)
[2018-06-18] MEDS: LOVENOX SUB-Q SCH (11:17)
[2018-06-18] MEDS: SODIUM CHLORIDE FLUSH SYRINGE 10 ML IV SCH ×2 (11:19→21:40)
--- NOTE | 2018-06-18 12:53 | Query-Anemia ---
Bronwyn Lombardo__Margarita Date:____06/18/18 Sales Operations Consultant/CDS:__mandy Phone#:____[phone] Exercise your independent professional judgment when responding to this query. Questions asked do not imply a particular answer is desired or expected. We greatly appreciate your clarification on this issue. Clinical Documentation States: 42-year-old male with a past medical history of HIV, unknown CD4 count, admitted with: 1.Community Acquired Pneumonia - Chest xray reveals Pneumonia in the left lower lobe. Immunocompromised, HIV positive. Currently being treated with bactrim, azithromycin and ceftriaxone. Influenza negative 2. HIV/AIDS - CD4 count 11. Viral load pending 3. Severe Oral Candidiasis- Continue Fluconazole at 200mg q day and Magic mouthwash. Oral care BID, with assistance from bedside nurse- order placed. 4. Diarrhea Clinical Findings Show: 06/13/18 06/15/18 Hb 12.5 9.5 Hct 37.9 28.6 Etiology: [ ] Anemia due to acute blood loss [ ] Anemia due to chronic blood loss [ ] Anemia secondary to ESRD [ ] Anemia secondary to neoplastic disease [ ] Iron deficiency anemia due to malabsorption [ ] GI Bleed from: [ x] Anemia of chronic disease ,Other:__AIDS [ ] Precipitous Drop in Hemoglobin [ ] Precipitous Drop in Hematocrit [ ] Other: [ ] Unable to determine [ ] Comment/Explanation: Present on Admission: [ X] Yes (Y) [ ] Clinically undeterminable (W) [ ] No (N) Please also document response in your Progress Notes and/or Discharge Summary and indicate if the condition was present on admission. MTDD
--- NOTE | 2018-06-18 12:54 | Consultation ---
History of Present Illness - Reason for Consult Consult date: 06/18/18 Reason for consult: Mental Health Evaluation Requesting physician: JOSH WELCH - Chief Complaint Chief complaint: "I don't want to talk right now" - History of Present Psychiatric Illness 42-year-old AA male who has a past history of HIV who presented to the ER with flu like symptoms. Today the patient refused to talk during the assessment. He was asked several questions, he stated, "I don't want to talk." Medications and Allergies Allergies Allergy/AdvReac Type Severity Reaction Status Date / Time No Known Allergies Allergy Verified 06/13/18 01:52 Home Medications Medication Instructions Recorded Confirmed Last Taken Type Azithromycin [Zithromax TAB] 1,200 mg PO QWEEK #4 tablet 06/18/18 Unknown Rx Fluconazole [Diflucan] 200 mg PO DAILY #7 tablet 06/18/18 Unknown Rx Nystas/Diphen/Xyl Visc/Mylanta 15 ml PO TID 14 Days oral.liqd 06/18/18 Unknown Rx [Magic Mouthwash] Sulfamethoxazole/Trimethoprim 2 each PO Q8HR 16 Days tablet 06/18/18 Unknown Rx [Bactrim DS TAB] Active Meds: Active Medications Acetaminophen (Tylenol) 650 mg PO Q4H PRN PRN Reason: Pain MILD(1-3)/Fever >100.5/VILLAREAL Azithromycin (Zithromax) 500 mg PO DAILY [facility] Last Admin: 06/18/18 11:16 Dose: 500 mg Documented by: Enoxaparin Sodium (Lovenox) 40 mg SUB-Q QDAY@1000 GLEN Last Admin: 06/18/18 11:17 Dose: Not Given Documented by: Sodium Chloride (Nacl 0.9% 1000 Ml) 1,000 mls @ 150 mls/hr IV DIRECT GLEN Last Admin: 06/18/18 11:41 Dose: 125 mls/hr Documented by: Ceftriaxone Sodium (Rocephin/Ns 1 Gm/50 Ml) 1 gm in 50 mls @ 100 mls/hr IV Q24HR GLEN; Protocol Last Admin: 06/18/18 11:16 Dose: 100 mls/hr Documented by: Fluconazole (Diflucan) 200 mg in 100 mls @ 100 mls/hr IV Q24HR GLEN; Protocol Last Admin: 06/18/18 11:17 Dose: 100 mls/hr Documented by: Potassium Chloride (Kcl 10meq/100ml) 10 meq in 100 mls @ 100 mls/hr IV Q1H [facility] Stop: 06/18/18 13:59 Last Admin: 06/18/18 11:21 Dose: 100 mls/hr Documented by: Lidocaine HCl (Magic Mouthwash) 15 ml PO TID [facility] Last Admin: 06/18/18 09:00 Dose: 15 ml Documented by: Ondansetron HCl (Zofran) 4 mg IV Q8H PRN PRN Reason: Nausea And Vomiting Pantoprazole Sodium (Protonix) 40 mg IV QDAY [facility] Last Admin: 06/18/18 11:16 Dose: 40 mg Documented by: Sodium Chloride (Sodium Chloride Flush Syringe 10 Ml) 10 ml IV BID [facility] Last Admin: 06/18/18 11:19 Dose: 10 ml Documented by: Sodium Chloride (Sodium Chloride Flush Syringe 10 Ml) 10 ml IV PRN PRN PRN Reason: LINE FLUSH Trimethoprim/Sulfamethoxazole (Bactrim Ds) 2 each PO Q8HR [facility] Last Admin: 06/18/18 06:23 Dose: 2 each Documented by: Past psychiatric history - Past Medical History Past Medical History: HIV/AIDS Past Surgical History: Other (Unable to obtain ) - past Psychiatric treatment and history psychiatric treatment history: Unable to obtain a psy hx and a fam psy hx. - Social History Social history: other (Unable to obtain ) Mental Status Exam - Vital signs Last Vital Signs Temp 99.2 F 06/18/18 05:00 Pulse 52 L 06/18/18 05:00 Resp 18 06/18/18 05:00 BP 85/51 06/18/18 05:00 Pulse Ox 97 06/18/18 05:00 - Exam Narrative exam: Unable to complete the MSE because the patient refused to cooperate. Results Result Diagrams: 06/18/18 04:21 06/18/18 04:21 Abnormal lab results 06/15/18 06/18/18 06/18/18 Range/Units 08:50 04:21 04:21 WBC 2.5 L (4.5-11.0) K/mm3 RBC 3.50 L (3.65-5.03) M/mm3 Hgb 9.9 L (11.8-15.2) gm/dl Hct 29.7 L (35.5-45.6) % Potassium 3.3 L (3.6-5.0) mmol/L Chloride 110.1 H (98-107) mmol/L Carbon Dioxide 17 L (22-30) mmol/L BUN 3 L (9-20) mg/dL Calcium 7.6 L (8.4-10.2) mg/dL HIV-1 RNA PCR copies/ml [id number] H Copies/mL HIV-1 RNA (PCR) log 6.93 H Log cps/mL All other labs normal. Assessment and Plan Assessment and plan: Impression: The patient refused to talk during the assessment. Recommendation/Plan: Attempt to reassess the patient in 24 hours if he is still in the hospital. Will staff with Dr Reyes.
--- NOTE | 2018-06-18 16:28 | Progress Note ---
Assessment and Plan Assessment and plan: 42-year-old male with a history of HIV, unknown CD4 count comes emergency room with complaints of cough productive of yellow phlegm, nausea vomiting and diarrhea 4 days. Also complaining of generalized weakness, difficulty eating. In the ED the patient was Hypotensive requiring fluid resuscitation. Imaging was concrning for Patcy Pneumonia in the left lower lobe and Lingular. Rapid flu test was doen and is negative. Patient was admitted for monitoring due to his immunocompromised state. * Radiology Data: Chest x-ray shows changes consistent with COPD. There is patchy pneumonia in the left lower lobe and lingula Community-acquired pneumonia-Left lobar in an immunocompromised patient Oral candidiasis-severe Hypotensive-shocklike state HIV Hypokalemia Leukopenia-PERSIST Diarrhea Depression Plan Continue supportive care despite multiple fluids given patient's blood pressure did dip close to the 70s systolic will hold plan discharge give additional bolus of fluid and discharge in a.m. if remains stable with discussed possible placement at a personal assisted versus home hospice the patient declines both. He also refused to speak to psychiatry for presumed depression ID input noted Replace K Continue fluid at 150cc/hr Change flucanozole to IV GI input noted Monitor for resolution of Leukopenia Antibiotics per ID Continue fluconazole AND MAGIC MOUTHWASH cultures and stool studies so far unremarkable DVT prophylaxis Plan discussed with patient and GI ANTICIPATE DISCHARGE IN AM Poor prognosis History Interval history: Patient is seen today for: Diarrhea, shortness of breath Seen and examined at bedside; 24hour events reviewed; nursing staff ; no adverse overnight events reported to me; Denies any chest pain, nausea, vomiting. No further diarrhea improved today but hypotensive more than usual. Patient is tolerating some by mouth. No fever noted Hospitalist Physical - Physical exam Narrative exam: VITAL SIGNS: Reviewed. GENERAL: The patient appeared ill appearing lethargic. Vital signs as documented. HEAD: No signs of head trauma. EYES: Pupils are equal. Extraocular motions intact. EARS: Hearing grossly intact. MOUTH: Oropharynx clear opacities -severe. NECK: No adenopathy, no JVD. CHEST: Chest with diminished breath sounds bilaterally. No wheezes, rales, or rhonchi. CARDIAC: Regular rate and rhythm. S1 and S2, without murmurs, gallops, or rubs. VASCULAR: No Edema. Peripheral pulses normal and equal in all extremities. ABDOMEN: Soft, without detectable tenderness. No sign of distention. No rebound or guarding, and no masses palpated. Bowel Sounds normal. MUSCULOSKELETAL: Good range of motion of all major joints. Extremities without clubbing, cyanosis or edema. NEUROLOGIC EXAM: Awake but lethargic otherwise oriented x 3. No focal sensory or strength deficits. Speech normal. Follows commands. PSYCHIATRIC: Mood normal. SKIN: Cellulitic lesion over the perera - Constitutional Vitals: Temp Pulse Resp BP Pulse Ox 98.7 F 56 L 14 87/50 98 06/18/18 12:35 06/18/18 12:35 06/18/18 12:35 06/18/18 12:35 06/18/18 12:35 Results - Labs CBC & Chem 7: 06/18/18 04:21 06/18/18 04:21 Labs: Laboratory Last Values WBC 2.5 K/mm3 (4.5-11.0) L 06/18/18 04:21 RBC 3.50 M/mm3 (3.65-5.03) L 06/18/18 04:21 Hgb 9.9 gm/dl (11.8-15.2) L 06/18/18 04:21 Hct 29.7 % (35.5-45.6) L 06/18/18 04:21 MCV 85 fl (84-94) 06/18/18 04:21 MCH 28 pg (28-32) 06/18/18 04:21 MCHC 33 % (32-34) 06/18/18 04:21 RDW 14.2 % (13.2-15.2) 06/18/18 04:21 Plt Count 143 K/mm3 (140-440) 06/18/18 04:21 Lymph % (Auto) 16.1 % (13.4-35.0) 06/13/18 07:11 [place] % (Auto) 10.5 % (0.0-7.3) H 06/13/18 07:11 Eos % (Auto) 0.3 % (0.0-4.3) 06/13/18 07:11 Baso % (Auto) 0.4 % (0.0-1.8) 06/13/18 07:11 Lymph # 0.4 K/mm3 (1.2-5.4) L 06/13/18 07:11 [place]elope # 0.3 K/mm3 (0.0-0.8) 06/13/18 07:11 Eos # 0.0 K/mm3 (0.0-0.4) 06/13/18 07:11 Baso # 0.0 K/mm3 (0.0-0.1) 06/13/18 07:11 Seg Neutrophils % 72.7 % (40.0-70.0) H 06/13/18 07:11 Seg Neutrophils # 2.0 K/mm3 (1.8-7.7) 06/13/18 07:11 Abs Lymphs (Manual) 313 cells/uL (850-3900) L 06/14/18 08:48 VBG pH 7.313 (7.320-7.420) L 06/13/18 00:31 Sodium 141 mmol/L (137-145) 06/18/18 04:21 Potassium 3.3 mmol/L (3.6-5.0) L 06/18/18 04:21 Chloride 110.1 mmol/L (98-107) H 06/18/18 04:21 Carbon Dioxide 17 mmol/L (22-30) L 06/18/18 04:21 Anion Gap 17 mmol/L 06/18/18 04:21 BUN 3 mg/dL (9-20) L 06/18/18 04:21 Creatinine 0.9 mg/dL (0.8-1.5) 06/18/18 04:21 Estimated GFR > 60 ml/min 06/18/18 04:21 BUN/Creatinine Ratio 3 % 06/18/18 04:21 Glucose 79 mg/dL (75-100) 06/18/18 04:21 Lactic Acid 1.20 mmol/L (0.7-2.0) 06/13/18 07:11 Calcium 7.6 mg/dL (8.4-10.2) L 06/18/18 04:21 Total Bilirubin 0.20 mg/dL (0.1-1.2) 06/13/18 00:31 AST 72 units/L (5-40) H 06/13/18 00:31 ALT 35 units/L (7-56) 06/13/18 00:31 Alkaline Phosphatase 117 units/L (35-129) 06/13/18 00:31 Total Protein 8.5 g/dL (6.3-8.2) H 06/13/18 00:31 Albumin 4.2 g/dL (3.9-5) 06/13/18 00:31 Albumin/Globulin Ratio 1.0 % 06/13/18 00:31 Lymph Enumerat CD4/CD8 0.03 (0.86-5.00) L 06/14/18 08:48 % CD3 Cells 91 % (57-85) H 06/14/18 08:48 Absolute CD3 Count 283 cells/uL (840-3060) L 06/14/18 08:48 % CD4 Cells 3 % (30-61) L 06/14/18 08:48 Absolute CD4 Count 11 cells/uL (490-1740) L 06/14/18 08:48 % CD8 Cells 86 % (12-42) H 06/14/18 08:48 Absolute CD8 Count 268 cells/uL (180-1170) 06/14/18 08:48 % CD19 Cells 2 % (6-29) L 06/14/18 08:48 Absolute CD19 Count 6 cells/uL (110-660) L 06/14/18 08:48 C. difficile Toxin A&B Negative (Negative) 06/13/18 Unknown HIV-1 RNA PCR copies/ml [id number] Copies/mL H 06/15/18 08:50 HIV-1 RNA (PCR) log 6.93 Log cps/mL H 06/15/18 08:50 Influenza A (Rapid) Negative (Negative) 06/13/18 12:22 Influenza B (Rapid) Negative (Negative) 06/13/18 12:22 Nutrition/Malnutrition Assess - Dietary Evaluation Nutrition/Malnutrition Findings: Nutrition Notes Start: 06/18/18 10:23 Freq: Status: Active Protocol: Document 06/18/18 10:24 LM (Rec: 06/18/18 11:21 LM [id number]) Co-Sign 06/18/18 10:24 LP Nutrition Notes Need for Assessment generated from: LOS Initial or Follow up Assessment Other Pertinent Diagnosis Pneumonia, HIV, oral candidiasis Current Diet Mechanical soft Labs/Tests Reviewed Pertinent Medications Reviewed Height 5 ft 4 in Weight 56.5 kg [place] Body Weight (lbs) 130.0 BMI 21.4 Subjective/Other Information Screen for LOS. Pt had trouble speaking due to oral candidiasis. Pt siad he ate a little of his breakfast. Patient stated [employer]ICE he eats 3 meals a day. Pt was unaware of any weight changes or his usual body weight but stated he is always light. Offered ONS to pt and pt said he is going home today but was open to trying a supplement if not discharged. Burn Absent Trauma Absent #1 Nutrition Diagnosis Inadequate oral intake Etiology oral candidiasis As Evidenced by Signs and Symptoms Pt consuming less than 50% of meals Is patient on ventilator? No Is Patient Ambulatory and/or Out of Bed Yes REE-([facility]-ambulatory/OOB) [ 1788.800 NUTR.[id number]] Calculation Used for Recommendations [facility] Additional Notes Protein needs: 45-57 g (0.8-1 g/kg) Fluids: 1 mL/kcal Nutrition Intervention Change Diet Order: Continue mecahnical soft diet Add Supplement/Snack (indicate name/kcal Ensure Enlive Vanilla once a /protein ) day Provides kCal: 350 Provides Protein (gm) 20 Goal #1 Meet at least 75% of energy and protein needs Anticipated Discharge Needs: Unable to determine at this time Follow-Up By: 06/21/18 Additional Comments F/U for PO/ONS intakes, diet advancement
[2018-06-18] MEDS ORDERED: IMODIUM PO PRN (16:40)
[2018-06-19] MEDS: BACTRIM DS PO SCH (06:14)
[2018-06-19] MEDS: NACL 0.9% 1000 ML 1,000 ML IV SCH (06:14)
[2018-06-19] MEDS ORDERED: PROTONIX PO SCH (10:00)
[2018-06-19] MEDS ORDERED: PROAMATINE PO ONE (10:08)
[2018-06-19] MEDS: LOVENOX SUB-Q SCH (11:00)
[2018-06-19] MEDS: ROCEPHIN/NS 1 GM/50 ML 1 GM/50 ML BAG IV SCH (11:00)
[2018-06-19] MEDS: DIFLUCAN 200 MG/100 ML BAG IV SCH (12:00)
[2018-06-19] MEDS: ZITHROMAX PO SCH (12:02)
[2018-06-19] MEDS: MAGIC MOUTHWASH PO SCH (12:04)
[2018-06-19 13:55] VITALS: BP 92/57
--- NOTE | 2018-06-24 10:38 | Query- SIRS ---
Deagovind Lombardo__Margarita Date:___06/24/2018 Agricultural Economics Professor/CDS:___Leigha/Tara Phone#:___[phone] Exercise your independent professional judgment when responding to query. Questions asked do not imply a particular answer is desired or expected. We greatly appreciate your clarification on this issue. Clinical Documentation States: 42-year-old male with a history of HIV, unknown CD4 count comes emergency room with complaints of cough productive of yellow phlegm, nausea vomiting and diarrhea 4 days. Also complaining of generalized weakness, difficulty eating. In the ED the patient was Hypotensive requiring fluid resuscitation. Discharge summary "Community-acquired pneumonia-Left lobar in an immunocompromised patient Oral candidiasis-severe Hypotensive-shocklike state HIV/AIDS CD4 count is 11 Leukopenia-PERSIST." Clinical Findings Show (include reference to source document): WBC: 2.7 MA: 93 RR: 25 Based on the above clinical scenario and your knowledge of the patient, please indicate the most appropriate diagnosis: [x ] SIRS (non-infectious) with Acute Organ Dysfunction [ ] SIRS (non-infectious) without Acute Organ Dysfunction [ ] Other: [ ] Unable to determine [ ] Comment/Explanation: Present on Admission: [x ] Yes (Y) [ ] Clinically undeterminable (W) [ ] No (N) Please also document response in your Progress Notes and/or Discharge Summary and indicate if the condition was present on admission. ROMINAD
== END 2018-06-19 17:45 | disposition home or self-care (01) | DRG 974 ==
LOC: ED 22:10 → 3A 06-13 02:57
PROVIDERS: ADMIT Internal Medicine; ATTEND Internal Medicine
DX: B20 Human immunodeficiency virus [HIV] disease (principal); J18.1 Lobar pneumonia, unspecified organism; R65.11 Systemic inflammatory response syndrome (SIRS) of non-infectious origin with acute organ dysfunction; B37.0 Candidal stomatitis; R19.7 Diarrhea, unspecified; I95.9 Hypotension, unspecified; E87.6 Hypokalemia; R13.10 Dysphagia, unspecified; F32.9 Major depressive disorder, single episode, unspecified; D63.8 Anemia in other chronic diseases classified elsewhere; Z82.49 Family history of ischemic heart disease and other diseases of the circulatory system
CPT/HCPCS: 36415; 71046; 80048; 80053; 82024; 82140; 82805; 85007; 85025; 85027; 87040; 87045; 87086; 87177; 87324; 87400; 87536; 87901; 93005; 93010; 96361; 96365; 96367; 96375; G0378; C9113; J0456; J0696; J1450; J1650; J3475; J3480; J7030; J7050

== ENCOUNTER 2018-07-18 12:52 | Inpatient (IN) | payer MEDICAID ==
[2018-07-18] MEDS ORDERED: NACL 0.9% 1000 ML 1,000 ML IV ONE ×2 (14:14→15:25)
--- NOTE | 2018-07-18 14:47 | Emergency Department Report ---
ED General Adult HPI - General Chief complaint: Weakness Stated complaint: SWOLLEN LIPS/HYPOTENSION Time Seen by Provider: 07/18/18 12:57 Source: patient, EMS Mode of arrival: Stretcher Limitations: No Limitations - History of Present Illness Initial comments: 42-year-old male with a past medical history of AIDS with recent CD4 count of 11, severe or candidiasis, chronic diarrhea, and admission in June for acquired pneumonia and sepsis presents to the hospital from [facility] [place] [facility] for evaluation for possible continued mouth infection and decreased by mouth intake. Patient states he is able to drink but admits food intake has decreased. Patient noticed to have a significant white plaque on the inner portion of his lips, tongue, and oropharynx. As per medical record this was noted in June 2018 and he was to take fluconazole 200 mg daily and Magic mouth where with oral care twice a day. Patient was given a 7 day supply of fluconazole and a 14 day supply of Magic mouthwash, 16 day supply of Bactrim, and azithromycin 1200 mg every week 4 doses . Pt was also prescribed Midorine. Patient states the [facility] he is responsible for taking his oral medication and he nods that he is taking the meds. Patient does not speaking during examination and but he does nod yes or no to questions. He is able to talk somewhat but difficult to understand. I am unclear if he is currently on any antiretrovirals. He continues to have chronic diarrhea. Apparently patient did not want to come to the ER but [facility] insisted. Severity scale (0 -10): 0 - Related Data Previous Rx's Medication Instructions Recorded Last Taken Type Azithromycin [Zithromax TAB] 1,200 mg PO QWEEK #4 tablet 06/18/18 Unknown Rx Sulfamethoxazole/Trimethoprim 2 each PO Q8HR 16 Days tablet 06/18/18 Unknown Rx [Bactrim DS TAB] Loperamide [Imodium] 2 mg PO Q2H PRN #60 capsule 06/19/18 Unknown Rx Midodrine HCl 2.5 mg PO DAILY #30 tablet 06/19/18 Unknown Rx Pantoprazole [Protonix TAB] 40 mg PO DAILY #30 tablet 06/19/18 Unknown Rx Fluconazole [Diflucan] 200 mg PO DAILY #7 tablet 07/18/18 Unknown Rx Nystas/Diphen/Xyl Visc/Mylanta 15 ml PO TID 14 Days oral.liqd 07/18/18 Unknown Rx [Magic Mouthwash] Allergies Allergy/AdvReac Type Severity Reaction Status Date / Time No Known Allergies Allergy Verified 07/18/18 14:08 ED Review of Systems ROS: Stated complaint: SWOLLEN LIPS/HYPOTENSION Other details as noted in HPI Comment: All other systems reviewed and negative ED Past Medical Hx - Past Medical History Previous Medical History?: Yes Hx Congestive Heart Failure: No Hx Diabetes: No Hx Asthma: No Hx COPD: No Hx Tuberculosis: No Hx HIV: Yes - Social History Smoking Status: Never Smoker Substance Use Type: None - Medications Home Medications: Home Medications Medication Instructions Recorded Confirmed Last Taken Type Azithromycin [Zithromax TAB] 1,200 mg PO QWEEK #4 tablet 06/18/18 Unknown Rx Sulfamethoxazole/Trimethoprim 2 each PO Q8HR 16 Days tablet 06/18/18 Unknown Rx [Bactrim DS TAB] Loperamide [Imodium] 2 mg PO Q2H PRN #60 capsule 06/19/18 Unknown Rx Midodrine HCl 2.5 mg PO DAILY #30 tablet 06/19/18 Unknown Rx Pantoprazole [Protonix TAB] 40 mg PO DAILY #30 tablet 06/19/18 Unknown Rx Fluconazole [Diflucan] 200 mg PO DAILY #7 tablet 07/18/18 Unknown Rx Nystas/Diphen/Xyl Visc/Mylanta 15 ml PO TID 14 Days oral.liqd 07/18/18 Unknown Rx [Magic Mouthwash] ED Physical Exam - General Limitations: No Limitations - Other Other exam information: General: Thin and frail-appearing Head exam: Atraumatic, normocephalic Eyes exam: Normal appearance ENT: White plaque to lips, tongue, and oropharynx likely secondary to severe mehnaz Neck exam: Normal inspection, full range of motion, no meningismus nontender Respiratory exam: Clear to auscultation bilateral, no wheezes, rales, crackles Cardiovascular: Normal rate and rhythm Abdomen: Soft, nondistended, and nontender, with normal bowel sounds, no rebound, or guarding Extremity: Full range of motion normal inspection no deformity Back: Normal Inspection, full range of motion, no tenderness Neurologic: Alert, oriented x3, cranial nerves intact, no motor or sensory deficit Psychiatric: normal affect, normal mood Skin: Warm, dry, intact ED Course Vital Signs 07/18/18 14:03 Temperature 98.9 F Pulse Rate 101 H Respiratory 16 Rate Blood Pressure 103/73 O2 Sat by Pulse 98 Oximetry ED Medical Decision Making - Lab Data Result diagrams: 07/18/18 15:41 07/18/18 14:31 Lab Results 07/18/18 07/18/18 Range/Units 14:31 15:41 WBC 4.5 (4.5-11.0) K/mm3 RBC 3.89 (3.65-5.03) M/mm3 Hgb 10.9 L (11.8-15.2) gm/dl Hct 33.2 L (35.5-45.6) % MCV 86 (84-94) fl MCH 28 (28-32) pg MCHC 33 (32-34) % RDW 15.5 H (13.2-15.2) % Plt Count 225 (140-440) K/mm3 Lymph % (Auto) Claims Sorter [place] % (Auto) Claims Sorter Eos % (Auto) Claims Sorter Baso % (Auto) Claims Sorter Lymph # Claims Sorter [place] # Claims Sorter Eos # Claims Sorter Baso # Claims Sorter Seg Neutrophils % Claims Sorter Seg Neutrophils # Claims Sorter Sodium 140 (137-145) mmol/L Potassium 5.5 H (3.6-5.0) mmol/L Chloride 106.3 (98-107) mmol/L Carbon Dioxide 23 (22-30) mmol/L Anion Gap 16 mmol/L BUN 46 H (9-20) mg/dL Creatinine 0.8 (0.8-1.5) mg/dL Estimated GFR > 60 ml/min BUN/Creatinine Ratio 58 % Glucose 90 (75-100) mg/dL Calcium 9.4 (8.4-10.2) mg/dL Total Bilirubin 0.20 (0.1-1.2) mg/dL AST 85 H (5-40) units/L ALT 55 (7-56) units/L Alkaline Phosphatase 141 H (35-129) units/L Total Protein 7.9 (6.3-8.2) g/dL Albumin 3.7 L (3.9-5) g/dL Albumin/Globulin Ratio 0.9 % - Medical Decision Making Case was discussed with hospitalist who is agreeable to admit for dehydration and treatment of severe oral thrush and likely esophageal candidiasis. While speaking to the hospitalist, nurse informed me that patient has refused IV treatment, IV fluids, and does not want any further treatment. Patient will be signed out AGAINST MEDICAL ADVICE. he was prescribed medication for thrush. Kayexylate 15g ordered for mild hyperkalemia. Pt refused to take the med. - Differential Diagnosis dehydration, arthritis, esophageal candidiasis Critical Care Time: No Critical care attestation.: If time is entered above; I have spent that time in minutes in the direct care of this critically ill patient, excluding procedure time. ED Disposition Clinical Impression: Dehydration, AIDS, Oral candidosis, Hyperkalemia Disposition: LEFT AGAINST MED ADVICE Is pt being admited?: Yes Does the pt Need Aspirin: No Condition: Stable Instructions: Dehydration (ED), Oral Candidiasis (ED), Hyperkalemia (ED), Human Immunodeficiency Virus Infection (ED) Additional Instructions: Take the medication as prescribed. Follow up with your doctor or the clinic/doctor provided. Return if symptoms worsen as indicated by your discharge instructions Prescriptions: Fluconazole [Diflucan] 200 mg PO DAILY #7 tablet Nystas/Diphen/Xyl Visc/Mylanta [Magic Mouthwash] 15 ml PO TID 14 Days oral.liqd Referrals: ELDER WILSON MD [Staff Physician] - 3-5 Days your, ID doctor [Other] - 3-5 Days Forms: AMA Form Time of Disposition: 16:28
[2018-07-18 15:03] LABS: Alanine Aminotransferase 55 units/L (7-56); Albumin 3.7 g/dL (3.9-5); BUN/Creatinine Ratio 58; Blood Urea Nitrogen 46 mg/dL (9-20); Calcium 9.4 mg/dL (8.4-10.2); Hemolysis Index 22
[2018-07-18 15:54] LABS: Hematocrit 33.2 % (35.5-45.6); Hemoglobin 10.9 gm/dl (11.8-15.2); Mean Corpuscular HGB Conc 33 % (32-34); Mean Corpuscular Volume 86 fl (84-94); Platelet Count 225 K/mm3 (140-440); Red Blood Count 3.89 M/mm3 (3.65-5.03); Red Cell Distribution Width 15.5 % (13.2-15.2)
[2018-07-18] MEDS ORDERED: ZOFRAN IV PRN ×2 (16:26→16:28)
[2018-07-18] MEDS ORDERED: SODIUM CHLORIDE FLUSH SYRINGE 10 ML IV PRN (16:26)
[2018-07-18] MEDS ORDERED: TYLENOL PO PRN (16:26)
[2018-07-18] MEDS ORDERED: PROVENTIL IH PRN (16:28)
[2018-07-18] MEDS ORDERED: IMODIUM PO PRN (16:29)
--- NOTE | 2018-07-18 16:31 | History and Physical Report ---
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 Pt stats that he has experienced weakness and difficulty swallowing over the past 1 week. EMS notified and upon arrival the patient was found to be in distress. Pt spain sported to [facility] for further care and evaluation. Pt seen and evaluated in ED and found to have AIDS, Dysphagia secondary to Candidia Esophagitis. Pt denies fever, chills, CP, Palpitations, NVD, Trauma, skin rash, hemoptysis, productive cough, medication noncompliance, or recent ill contacts. Past History Past Medical History: HIV/AIDS Past Surgical History: No surgical history (reviewed) Social history: single. denies: smoking, alcohol abuse, prescription drug abuse Family history: no significant family history (reviewed) Medications and Allergies Allergies Allergy/AdvReac Type Severity Reaction Status Date / Time No Known Allergies Allergy Verified 07/18/18 14:08 Home Medications Medication Instructions Recorded Confirmed Last Taken Type Azithromycin [Zithromax TAB] 1,200 mg PO QWEEK #4 tablet 06/18/18 Unknown Rx Sulfamethoxazole/Trimethoprim 2 each PO Q8HR 16 Days tablet 06/18/18 Unknown Rx [Bactrim DS TAB] Loperamide [Imodium] 2 mg PO Q2H PRN #60 capsule 06/19/18 Unknown Rx Midodrine HCl 2.5 mg PO DAILY #30 tablet 06/19/18 Unknown Rx Pantoprazole [Protonix TAB] 40 mg PO DAILY #30 tablet 06/19/18 Unknown Rx Fluconazole [Diflucan] 200 mg PO DAILY #7 tablet 07/18/18 Unknown Rx Nystas/Diphen/Xyl Visc/Mylanta 15 ml PO TID 14 Days oral.liqd 07/18/18 Unknown Rx [Magic Mouthwash] Active Meds: Active Medications Acetaminophen (Tylenol) 650 mg PO Q4H PRN PRN Reason: Pain MILD(1-3)/Fever >100.5/VILLAREAL Acetaminophen (Tylenol) 650 mg PO Q4H PRN PRN Reason: Pain MILD(1-3)/Fever >100.5/VILLAREAL Albuterol (Proventil) 2.5 mg IH Q4HRT PRN PRN Reason: Shortness Of Breath Azithromycin (Zithromax) 1,200 mg PO QWEEK [facility] Famotidine (Pepcid) 20 mg IV BID [facility] Fluconazole (Diflucan) 200 mg PO DAILY [facility] Sodium Chloride (Nacl 0.9% 1000 Ml) 1,000 mls @ 100 mls/hr IV DIRECT GLEN Lidocaine HCl (Magic Mouthwash) 15 ml PO TID [facility] Loperamide HCl (Imodium) 2 mg PO Q2H PRN PRN Reason: Diarrhea Midodrine (Proamatine) 2.5 mg PO DAILY [facility] Ondansetron HCl (Zofran) 4 mg IV Q8H PRN PRN Reason: Nausea And Vomiting Ondansetron HCl (Zofran) 4 mg IV Q8H PRN PRN Reason: Nausea And Vomiting Sodium Chloride (Sodium Chloride Flush Syringe 10 Ml) 10 ml IV BID [facility] Sodium Chloride (Sodium Chloride Flush Syringe 10 Ml) 10 ml IV PRN PRN PRN Reason: LINE FLUSH Sodium Chloride (Sodium Chloride Flush Syringe 10 Ml) 10 ml IV BID [facility] Sodium Chloride (Sodium Chloride Flush Syringe 10 Ml) 10 ml IV PRN PRN PRN Reason: LINE FLUSH Trimethoprim/Sulfamethoxazole (Bactrim Ds) 2 each PO Q8HR [facility] Review of Systems Constitutional: weight loss, weakness, no fever, no chills Ears, nose, mouth and throat: mouth pain, dysphagia, no ear pain, no ear discharge, no tinnitis, no decreased hearing Cardiovascular: no chest pain, no orthopnea, no palpitations, no rapid/irregular heart beat, no edema Respiratory: no cough, no cough with sputum, no excessive sputum, no hemoptysis Gastrointestinal: no abdominal pain, no nausea, no vomiting, no diarrhea Genitourinary Male: no hematuria, no flank pain, no discharge, no urinary frequency, no urinary hesitancy Rectal: no pain, no incontinence, no bleeding Musculoskeletal: no neck stiffness, no neck pain, no shooting arm pain, no arm numbness/tingling, no low back pain Integumentary: no rash, no pruritis, no redness, no sores, no wounds Neurological: no paralysis, no weakness, no parathesias, no numbness, no tingling Psychiatric: no anxiety, no memory loss, no change in sleep habits, no sleep dis turbances, no insomnia, no hypersomnia Endocrine: no cold intolerance, no heat intolerance, no polyphagia, no excessive thirst, no polydipsia Hematologic/Lymphatic: no lymphadenopathy, no lymphedema Allergic/Immunologic: no urticaria, no allergic rhinitis, no wheezing, no persistent infections, no anaphylaxis, no angioedema Exam - Constitutional Vitals: Temp Pulse Resp BP Pulse Ox 98.9 F 101 H 16 103/73 98 07/18/18 14:03 07/18/18 14:03 07/18/18 14:03 07/18/18 14:03 07/18/18 14:03 General appearance: Present: mild distress, cachectic, disheveled - EENT Eyes: Present: PERRL ENT: hearing intact, thrush - Neck Neck: Present: supple, normal ROM - Respiratory Respiratory effort: normal Respiratory: bilateral: CTA - Cardiovascular Heart Sounds: Present: S1 & S2. Absent: rub, click - Extremities Extremities: pulses symmetrical, No edema Peripheral Pulses: within normal limits - Abdominal General gastrointestinal: Present: soft, non-tender, non-distended, normal bowel sounds Male genitourinary: Present: normal - Integumentary Integumentary: Present: clear, warm, dry - Musculoskeletal Musculoskeletal: generalized weakness - Psychiatric Psychiatric: appropriate mood/affect, intact judgment & insight - Neurologic Neurologic: CNII-XII intact, moves all extremities Results - Labs CBC & Chem 7: 07/18/18 15:41 07/18/18 14:31 Labs: Abnormal lab results 07/18/18 07/18/18 Range/Units 14:31 15:41 Hgb 10.9 L (11.8-15.2) gm/dl Hct 33.2 L (35.5-45.6) % RDW 15.5 H (13.2-15.2) % Potassium 5.5 H (3.6-5.0) mmol/L BUN 46 H (9-20) mg/dL AST 85 H (5-40) units/L Alkaline Phosphatase 141 H (35-129) units/L Albumin 3.7 L (3.9-5) g/dL Assessment and Plan - Patient Problems (1) AIDS Current Visit: Yes Status: Acute Plan to address problem: Outpatient ID F/U care, Continue PCP/MAC prophylaxis, Pending HIV Genotype, ID consulted (2) Oral candidiasis Current Visit: Yes Status: Acute Plan to address problem: IV fluconazole, suppportive care, magic mouthwash, oral care, oral suction prn (3) Volume depletion Current Visit: Yes Status: Acute Plan to address problem: IVF resuscitation, monitor uop q shift. (4) Severe malnutrition Current Visit: Yes Status: Acute Plan to address problem: Treat candidiasis, encourage increased protein intake, (5) DVT prophylaxis Current Visit: Yes Status: Acute Plan to address problem: SCD to BLE while in bed.
[2018-07-18] MEDS ORDERED: KIONEX PO ONE (16:33)
[2018-07-18] MEDS ORDERED: NACL 0.9% 1000 ML 1,000 ML ONE (20:01)
[2018-07-18] MEDS: MAGIC MOUTHWASH PO SCH (20:13)
[2018-07-18] MEDS: NACL 0.9% 1000 ML 1,000 ML IV SCH (20:13)
[2018-07-18] MEDS ORDERED: SODIUM CHLORIDE FLUSH SYRINGE 10 ML IV SCH (22:00)
[2018-07-18] MEDS: PEPCID IV SCH (22:44)
[2018-07-18] MEDS: BACTRIM DS PO SCH (22:45)
[2018-07-18] MEDS: SODIUM CHLORIDE FLUSH SYRINGE 10 ML IV SCH (22:45)
[2018-07-19] MEDS: BACTRIM DS PO SCH ×2 (06:50→14:17)
[2018-07-19] MEDS ORDERED: DIFLUCAN PO SCH (10:00)
[2018-07-19] MEDS ORDERED: DIFLUCAN 200 MG/100 ML BAG IV SCH (10:00)
[2018-07-19] MEDS: PROTONIX PO SCH (10:32)
[2018-07-19] MEDS: PEPCID IV SCH ×2 (10:32→21:06)
[2018-07-19] MEDS: SODIUM CHLORIDE FLUSH SYRINGE 10 ML IV SCH ×2 (10:38→21:07)
[2018-07-19] MEDS: NACL 0.9% 1000 ML 1,000 ML IV SCH (12:39)
[2018-07-19] MEDS: MAGIC MOUTHWASH PO SCH ×4 (12:40→21:06)
[2018-07-19] MEDS: PROAMATINE PO SCH (12:40)
--- NOTE | 2018-07-19 15:19 | Consultation ---
History of Present Illness - Reason for Consult Consult date: 07/19/18 HIV/AIDS Requesting physician: RISHABH GROVER - History of Present Illness This patient is a 42-year old male, known to ID from recent admission on 06/13/18- 06/19/18, for CAP, HIV/AIDS with a CD4 count of 11 and [place] load 847,0000., severe oral candidiasis and diarrhea. He now presents in the ED on 07/18/18 from [place] for evaluation for possible continued mouth infection and decreased oral intake. Upon further evaluation, he has significant white plaque on the inner portion of his lips, tongue and orophanynx. patient stated that he is able to drink but his food intake has decreased. He also stated that he continues to have chronic diarrhea. Upon discharge patient was given a 7- day supply of fluconazole and 14 day supply of magic mouthwash, 16 day supply of Bactrim and Azithromycin 1200mg every week times 4 doses. He was suppose to follow-up with our clinic 2 weeks after discharge on 07/01/18 and start ART therapy with an HIV provider at [place]. On admission WBC 4.5, Creatinine 0.8, AST 85, ALT 55, AP 141, Temperature 98.9, HR 91, Chest Xray was not done. Patient states that he currently lives at [facility]. He has not been able to take his oral meds or eat adequately because of the oral candidiasis, that has worsened since his last admission in June, He has not taken ART therapy for his HIV due to the center's "disorganization" per patient. He also failed to come to our clinic for follow-up because of transportation issues. Review of Systems: General: no fever, chills, nightsweats, + unintentional weight change, + change in appetite Cutaneous: no rash, pruritus Head: no headaches or injury Eyes: no changes in vision, eye pain, double vision Ears: no ear pain, ear discharge, ringing or hearing loss Nose: no nose bleeding, stuffiness Mouth & throat: significant white plaque on the inner portion of his lips, tongue, and oropharynx Neck: no pain, node enlargement/lumps, tyroid enlargement or tenderness Respiratory: no cough, wheezing, sputum, hemoptysis, pleuritic chest pain Cardiovascular: no chest pain, leg edema, cyanosis, VILLALTA, orthopnea Musculoskeletal: no decreased joint motion, bone or joint pain, joint swelling, muscle aches Gastrointestinal: no nausea, vomiting, hematemesis, + diarrhea Genitourinary/Reproductive: no frequent urination, no dysuria, hematuria, incontinence Neurogical: no seizures, no headaches, no weakness, no paresthesias, no loss of speech or vision; no memory loss, no vertigo, no tremors, no numbness Psychiatric: stable mood; +anxiety,+moodiness Past History Past Medical History: HIV/AIDS Past Surgical History: No surgical history (reviewed) Social history: single. denies: smoking, alcohol abuse, prescription drug abuse Family history: no significant family history (reviewed) Medications and Allergies Allergies Allergy/AdvReac Type Severity Reaction Status Date / Time No Known Allergies Allergy Verified 07/18/18 14:08 Home Medications Medication Instructions Recorded Confirmed Last Taken Type Azithromycin [Zithromax TAB] 1,200 mg PO QWEEK #4 tablet 06/18/18 Unknown Rx Sulfamethoxazole/Trimethoprim 2 each PO Q8HR 16 Days tablet 06/18/18 Unknown Rx [Bactrim DS TAB] Loperamide [Imodium] 2 mg PO Q2H PRN #60 capsule 06/19/18 Unknown Rx Midodrine HCl 2.5 mg PO DAILY #30 tablet 06/19/18 Unknown Rx Pantoprazole [Protonix TAB] 40 mg PO DAILY #30 tablet 06/19/18 Unknown Rx Fluconazole [Diflucan] 200 mg PO DAILY #7 tablet 07/18/18 Unknown Rx Nystas/Diphen/Xyl Visc/Mylanta 15 ml PO TID 14 Days oral.liqd 07/18/18 Unknown Rx [Magic Mouthwash] Active Meds: Active Medications Acetaminophen (Tylenol) 650 mg PO Q4H PRN PRN Reason: Pain MILD(1-3)/Fever >100.5/VILLAREAL Albuterol (Proventil) 2.5 mg IH Q4HRT PRN PRN Reason: Shortness Of Breath Azithromycin (Zithromax) 1,200 mg PO QWEEK [facility] Famotidine (Pepcid) 20 mg IV BID [facility] Last Admin: 07/19/18 10:32 Dose: 20 mg Documented by: Sodium Chloride (Nacl 0.9% 1000 Ml) 1,000 mls @ 100 mls/hr IV DIRECT [facility] Last Admin: 07/19/18 12:39 Dose: 100 mls/hr Documented by: Fluconazole (Diflucan) 200 mg in 100 mls @ 100 mls/hr IV Q24HR [facility]; Protocol Stop: 07/23/18 23:59 Last Admin: 07/19/18 10:32 Dose: 100 mls/hr Documented by: Lidocaine HCl (Magic Mouthwash) 15 ml PO TID [facility] Last Admin: 07/19/18 14:15 Dose: 15 ml Documented by: Loperamide HCl (Imodium) 2 mg PO Q2H PRN PRN Reason: Diarrhea Midodrine (Proamatine) 2.5 mg PO DAILY [facility] Last Admin: 07/19/18 12:40 Dose: 2.5 mg Documented by: Ondansetron HCl (Zofran) 4 mg IV Q8H PRN PRN Reason: Nausea And Vomiting Ondansetron HCl (Zofran) 4 mg IV Q8H PRN PRN Reason: Nausea And Vomiting Last Admin: 07/18/18 17:20 Dose: 4 mg Documented by: Pantoprazole Sodium (Protonix) 40 mg PO DAILY [facility] Last Admin: 07/19/18 10:32 Dose: 40 mg Documented by: Sodium Chloride (Sodium Chloride Flush Syringe 10 Ml) 10 ml IV PRN PRN PRN Reason: LINE FLUSH Sodium Chloride (Sodium Chloride Flush Syringe 10 Ml) 10 ml IV BID [facility] Last Admin: 07/19/18 10:38 Dose: 10 ml Documented by: Sodium Chloride (Sodium Chloride Flush Syringe 10 Ml) 10 ml IV PRN PRN PRN Reason: LINE FLUSH Trimethoprim/Sulfamethoxazole (Bactrim Ds) 2 each PO Q8HR [facility] Last Admin: 07/19/18 14:17 Dose: 2 each Documented by: Physical Examination - Physical Exam Narrative exam: Constitutional: Alert, anxious, acute distress observed Head, Ears, Nose: Normocephalic, atraumatic. External ears, nose normal Eyes: Conjunctivae/corneas clear. No icterus. No ptosis. Neck: Supple, no meningeal signs Oral: dentition poor., + Thrush ,significant white plaque on the inner portion of his lips, tongue, and oropharynx. Cardiovascular: S1, S2 normal. Respiratory: Good air entry, clear to auscultation bilaterally GI: Soft, non-tender; bowel sounds normal. No peritoneal signs Musculoskeletal: No pedal edema, no cyanosis. Skin: No rash or abscess. Hem/Lymphatic: No palpable cervical or supraclavicular nodes. No lymphangitis Psych: Mood ok. Affect flat Neurological: Awake, alert, +agitated. - Constitutional Vitals: Vital Signs Temp Pulse Resp BP Pulse Ox 97.6 F 78 18 97/59 94 07/19/18 12:10 07/19/18 12:10 07/19/18 12:10 07/19/18 12:10 07/19/18 12:10 Temperature -Last 24 Hours Temperature 97.6 F Temperature 98.9 F Temperature 97.5 F Results - Labs CBC & Chem 7: 07/18/18 15:41 07/18/18 14:31 Labs: Abnormal lab results 07/18/18 Range/Units 15:41 Hgb 10.9 L (11.8-15.2) gm/dl Hct 33.2 L (35.5-45.6) % RDW 15.5 H (13.2-15.2) % Assessment and Plan Cultures: none drawn A/P: 42-year-old male known to ID from recent admission on 06/23/18-06/19/18 for community acquired pneumonia, HIV/AIDS, oral candidiasis and diarrhea, now with: 1. Severe Oral Candidias: on exam significant white plaque on the oropharynx, tongue, inner and outer portion of lips. Will start Flucanazole 800mg IV loading dose, followed by 200 ml every 24 hours. Oral care BID, with assistance from bedside nurse. 2. HIV/AIDS: Last admission in June CD4 count 11. Viral load [id number] 3. Diarrhea: 4 loose stool yesterday, none today. Will obtain stool cultures, Ova and parasite antigen and Stool WBC 4. Severe Malnutrition: Plan: -Start Flucanazole 800mg IV loading dose, followed by 200 ml every 24 hours -continue Azithromycin 1200mg , PO q weeek -Continue Majic mouthwash -start Bactrium DS , PO every 24 hours -order stool cultures, Ova and parasite antigen and Stool WBC -Oral care BID with assistance from bedside nurse d/w Dr. Aleksey Vyas, [facility] M: [phone] O:[phone]
[2018-07-19] MEDS ORDERED: VIAFLEX EMPTY CONTAINER IV ONE (18:00)
[2018-07-19] MEDS ORDERED: DIFLUCAN IV ONE (18:00)
--- NOTE | 2018-07-19 18:35 | Progress Note ---
Assessment and Plan (1) AIDS Current Visit: Yes Status: Acute Plan to address problem: Outpatient ID F/U care, Continue PCP/MAC prophylaxis, Pending HIV Genotype, ID consulted (2) Oral candidiasis Current Visit: Yes Status: Acute Plan to address problem: IV fluconazole, suppportive care, magic mouthwash, oral care, oral suction prn Possible esophageal candidiasis (3) Volume depletion Current Visit: Yes Status: Acute Plan to address problem: IVF resuscitation, monitor uop q shift. (4) Severe malnutrition Current Visit: Yes Status: Acute Plan to address problem: Treat candidiasis, encourage increased protein intake, (5) DVT prophylaxis Current Visit: Yes Status: Acute Plan to address problem: SCD to BLE while in bed. Subjective Date of service: 07/19/18 Principal diagnosis: Candidiasis,AIDS Interval history: Same condition.Looks emaciated and distressed Objective - Constitutional Vitals: Vital Signs - 12hr 07/19/18 07/19/18 07/19/18 10:00 12:10 17:44 Temperature 97.6 F 97.9 F Pulse Rate 78 72 Respiratory 18 18 Rate Blood Pressure 97/59 92/65 O2 Sat by Pulse 99 94 98 Oximetry General appearance: Present: mild distress - EENT ENT: other (Oral candidiasis) - Cardiovascular Heart rate: 98 Extremities: no ischemia - Labs CBC & Chem 7: 07/18/18 15:41 07/18/18 14:31
--- NOTE | 2018-07-20 08:49 | Progress Note ---
Assessment and Plan Cultures: 07/20/18 Blood: In progress A/P: 42-year-old male known to ID from recent admission on 06/23/18-06/19/18 for community acquired pneumonia, HIV/AIDS, oral candidiasis and diarrhea, now with: 1. Severe Oral Candidias: likely associated mehnaz esophagitis. on exam significant white plaque on the oropharynx, tongue, inner and outer portion of lips. Will give Fluconazole 800 mg loading dose followed by 400 mg daily tomorrow onwards. Oral care BID, with assistance from bedside nurse. 2. HIV/AIDS: Last admission in June CD4 count 11. Viral load [id number] Remains non compliant with HIV therapy, did not follow up in our clinic as well. 3. Diarrhea: 4 loose stool yesterday, none today. Will obtain stool cultures, Ova and parasite antigen and Stool WBC 4. Severe Malnutrition: 5. New Fevers: etiology unclear, will order Blood Cultures , u/a and chest xray. -Chest Xray - There is mild residual patchy infiltrate in the left lower lobe and lingula. This has decreased by 25-50% since 06/13/18. The remainder of the lungs are clear. Plan: -Continue Flucanazole 400 mg every 24 hours -continue Azithromycin 1200mg , PO q week -Continue Majic mouthwash -Continue Bactrium DS , PO every 24 hours -f/u stool cultures, Ova and parasite antigen and Stool WBC - Continue Oral care BID with assistance from bedside nurse -Order Bloods cultures -Order U/A [facility] M: [phone] O:[phone] Subjective Date of service: 07/20/18 Principal diagnosis: Candidiasis,AIDS Interval history: Patient seen and examined. + thrush improvement noted. Stated that he was feeling somewhat better, continues to have problems swallowing. Objective - Exam Narrative Exam: Constitutional: Alert, anxious, acute distress observed Head, Ears, Nose: Normocephalic, atraumatic. External ears, nose normal Eyes: Conjunctivae/corneas clear. No icterus. No ptosis. Neck: Supple, no meningeal signs Oral: dentition poor., + Thrush ,significant white plaque on the inner portion of his lips, tongue, and oropharynx. Cardiovascular: S1, S2 normal. Respiratory: Good air entry, clear to auscultation bilaterally GI: Soft, non-tender; bowel sounds normal. No peritoneal signs Musculoskeletal: No pedal edema, no cyanosis. Skin: No rash or abscess. Hem/Lymphatic: No palpable cervical or supraclavicular nodes. No lymphangitis Psych: Mood ok. Affect flat Neurological: Awake, alert, less anxious - Constitutional Vitals: Vital Signs Temp Pulse Resp BP Pulse Ox 100.1 F H 78 20 94/59 99 07/20/18 04:24 07/20/18 04:24 07/20/18 04:24 07/20/18 04:24 07/20/18 04:24 Temperature -Last 24 Hours Temperature 100.1 F Temperature 99.9 F Temperature 97.9 F Temperature 97.6 F - Labs CBC & Chem 7: 07/20/18 10:32 07/18/18 14:31
--- NOTE | 2018-07-20 09:32 | XRay Report ---
AP CHEST: HISTORY: Spiking fevers There is mild residual patchy infiltrate in the left lower lobe and lingula. This has decreased by 25-50% since 06/13/18. The remainder of the lungs are clear. No pleural effusion or pneumothorax. Normal heart and mediastinal structures. Normal bony thorax. IMPRESSION: There is mild residual infiltrate at the left lung base as described.
[2018-07-20 11:06] LABS: Basophils % (Auto) 0.2 % (0.0-1.8); Eosinophils % (Auto) 0.1 % (0.0-4.3); Hematocrit 26.3 % (35.5-45.6); Hemoglobin 8.7 gm/dl (11.8-15.2); Lymphocytes # (Auto) 0.3 K/mm3 (1.2-5.4); Lymphocytes % (Auto) 11.7 % (13.4-35.0); Mean Corpuscular HGB Conc 33 % (32-34); Mean Corpuscular Volume 83 fl (84-94); Monocytes # (Auto) 0.3 K/mm3 (0.0-0.8); Monocytes % (Auto) 9.8 % (0.0-7.3); Platelet Count 199 K/mm3 (140-440); Red Blood Count 3.16 M/mm3 (3.65-5.03); Red Cell Distribution Width 15.2 % (13.2-15.2)
[2018-07-20] MEDS: NACL 0.9% 1000 ML 1,000 ML IV SCH (11:06)
[2018-07-20] MEDS: DIFLUCAN 200 ML IV SCH (11:08)
[2018-07-20] MEDS: ZITHROMAX PO SCH (11:08)
[2018-07-20] MEDS: PEPCID IV SCH ×2 (11:08→21:59)
[2018-07-20] MEDS: PROAMATINE PO SCH (11:09)
[2018-07-20] MEDS: PROTONIX PO SCH (11:09)
[2018-07-20] MEDS: BACTRIM DS PO SCH (11:09)
[2018-07-20] MEDS: MAGIC MOUTHWASH PO SCH ×4 (11:53→21:59)
[2018-07-20] MEDS: SODIUM CHLORIDE FLUSH SYRINGE 10 ML IV SCH ×2 (11:55→21:59)
--- NOTE | 2018-07-20 17:48 | Progress Note ---
Assessment and Plan Assessment and plan: (1) AIDS Current Visit: Yes Status: Acute Plan to address problem: Outpatient ID F/U care, Continue PCP/MAC prophylaxis, Pending HIV Genotype, ID consulted Patient is on azithromycin and bactrim Low CD4 count (2) Oral candidiasis Current Visit: Yes Status: Acute Plan to address problem: IV fluconazole, suppportive care, magic mouthwash, oral care, oral suction prn (3) Volume depletion Current Visit: Yes Status: Acute Plan to address problem: IVF resuscitation, monitor uop q shift. (4) Severe malnutrition Current Visit: Yes Status: Acute Plan to address problem: Treat candidiasis, encourage increased protein intake (5) DVT prophylaxis Current Visit: Yes Status: Acute Plan to address problem: SCD to BLE while in bed. ID wants him to continue inpatient treatment for next 2 days. History Interval history: Patient was seen and evaluated this morning, patient didn't have any complaints. Hospitalist Physical - Physical exam Narrative exam: Not in cardiopulmonary distress. The patient is emaciated. Vital signs as documented. Head exam is unremarkable. Lip swelling and oral thrush No scleral icterus . Neck is without jugular venous distension, thyromegaly, or carotid bruits. Lungs are clear to auscultation. Cardiac exam reveals regular rate and Rhythm. Abdominal exam reveals normal bowel sounds. Extremities are nonedematous and both femoral and pedal pulses are normal. CHILD CARE TEAM LEAD: Alert and oriented 3. No focal weakness. - Constitutional Vitals: Temp Pulse Resp BP Pulse Ox 98.4 F 89 20 92/65 96 07/20/18 17:38 07/20/18 17:38 07/20/18 17:38 07/20/18 17:38 07/20/18 17:38 General appearance: Present: mild distress Results - Labs CBC & Chem 7: 07/21/18 04:39 07/21/18 04:39 Labs: Laboratory Last Values WBC 2.6 K/mm3 (4.5-11.0) L 07/20/18 10:32 RBC 3.16 M/mm3 (3.65-5.03) L 07/20/18 10:32 Hgb 8.7 gm/dl (11.8-15.2) L 07/20/18 10:32 Hct 26.3 % (35.5-45.6) L D 07/20/18 10:32 MCV 83 fl (84-94) L 07/20/18 10:32 MCH 28 pg (28-32) 07/20/18 10:32 MCHC 33 % (32-34) 07/20/18 10:32 RDW 15.2 % (13.2-15.2) 07/20/18 10:32 Plt Count 199 K/mm3 (140-440) 07/20/18 10:32 Lymph % (Auto) 11.7 % (13.4-35.0) L 07/20/18 10:32 [place] % (Auto) 9.8 % (0.0-7.3) H 07/20/18 10:32 Eos % (Auto) 0.1 % (0.0-4.3) 07/20/18 10:32 Baso % (Auto) 0.2 % (0.0-1.8) 07/20/18 10:32 Lymph # 0.3 K/mm3 (1.2-5.4) L 07/20/18 10:32 [place] # 0.3 K/mm3 (0.0-0.8) 07/20/18 10:32 Eos # 0.0 K/mm3 (0.0-0.4) 07/20/18 10:32 Baso # 0.0 K/mm3 (0.0-0.1) 07/20/18 10:32 Seg Neutrophils % 78.2 % (40.0-70.0) H 07/20/18 10:32 Seg Neutrophils # 2.0 K/mm3 (1.8-7.7) 07/20/18 10:32 Sodium 140 mmol/L (137-145) 07/18/18 14:31 Potassium 5.5 mmol/L (3.6-5.0) H 07/18/18 14:31 Chloride 106.3 mmol/L (98-107) 07/18/18 14:31 Carbon Dioxide 23 mmol/L (22-30) 07/18/18 14:31 Anion Gap 16 mmol/L 07/18/18 14:31 BUN 46 mg/dL (9-20) H 07/18/18 14:31 Creatinine 0.8 mg/dL (0.8-1.5) 07/18/18 14:31 Estimated GFR > 60 ml/min 07/18/18 14:31 BUN/Creatinine Ratio 58 % 07/18/18 14:31 Glucose 90 mg/dL (75-100) 07/18/18 14:31 Calcium 9.4 mg/dL (8.4-10.2) 07/18/18 14:31 Total Bilirubin 0.20 mg/dL (0.1-1.2) 07/18/18 14:31 AST 85 units/L (5-40) H 07/18/18 14:31 ALT 55 units/L (7-56) 07/18/18 14:31 Alkaline Phosphatase 141 units/L (35-129) H 07/18/18 14:31 Total Protein 7.9 g/dL (6.3-8.2) 07/18/18 14:31 Albumin 3.7 g/dL (3.9-5) L 07/18/18 14:31 Albumin/Globulin Ratio 0.9 % 07/18/18 14:31 Nutrition/Malnutrition Assess - Dietary Evaluation Nutrition/Malnutrition Findings: Nutrition Notes Start: 07/20/18 14:03 Freq: Status: Active Protocol: Document 07/20/18 14:04 ER (Rec: 07/20/18 14:22 ER [id number]) Co-Sign 07/20/18 14:04 LP Nutrition Notes Need for Assessment generated from: Low BMI Initial or Follow up Assessment Other Pertinent Diagnosis AIDS, dysphagia, oral candidiasis, severe malnutrition Current Diet Regular diet Labs/Tests K: 5.5 Pertinent Medications Reviewed Height 5 ft 7 in Weight 50.6 kg [place] Body Weight (kg) 67.27 BMI 17.4 Subjective/Other Information Pt. screen for low BMI. Pt. denied having any N/V/D/C. RN was in the room at time of visit and encouraged pt. to talk. Pt. has had poor PO intake d/t chewing/swallowing difficulties and oral pain. Pt . would like to have Ensure Enlive strawberry TID. Burn Absent Trauma Absent Difficulty In Swallowing #1 Nutrition Diagnosis Predicted suboptimal energy intake Etiology dysphagia and oral candidiasis As Evidenced by Signs and Symptoms poor PO intake and oral pain secondary to candidiasis Is patient on ventilator? No Is Patient Ambulatory and/or Out of Bed No REE-([facility]-confined to bed) 1640.976 Kcal/Kg value to use for calculation 40 Approximate Energy Requirements Using 2023 kcal/Kg Calculation Used for Recommendations Kcal/kg Additional Notes PRO needs: 51-77g (1-1.5g/kg) Fluid needs: 1 mL/kcal Nutrition Intervention Add Supplement/Snack (indicate name/kcal Ensure Enlive TID (strawberry) /protein ) Provides kCal: 1,050 Provides Protein (gm) 60 Goal #1 Pt. to meet at least 80% of energy and protein needs through PO and ONS intakes. Goal #2 ONS tolerance Follow-Up By: 07/22/18 Additional Comments F/U: PO and ONS intake
[2018-07-20] MEDS: TYLENOL PO PRN (17:52)
[2018-07-20 20:32] LABS: Bilirubin,Urine NEG (Negative); Blood,Urine NEG (Negative); Color,Urine Yellow (Yellow); Protein,Urine <15 mg/dL mg/dL (Negative); Urobilinogen,Urine < 2.0 mg/dL (<2.0)
[2018-07-21] MEDS: NACL 0.9% 1000 ML 1,000 ML IV SCH ×2 (00:21→09:46)
[2018-07-21 05:36] LABS: Hematocrit 28.4 % (35.5-45.6); Hemoglobin 9.2 gm/dl (11.8-15.2); Mean Corpuscular HGB Conc 32 % (32-34); Mean Corpuscular Volume 86 fl (84-94); Platelet Count 182 K/mm3 (140-440); Red Blood Count 3.31 M/mm3 (3.65-5.03); Red Cell Distribution Width 15.7 % (13.2-15.2)
[2018-07-21 05:54] LABS: BUN/Creatinine Ratio 14; Blood Urea Nitrogen 11 mg/dL (9-20); Calcium 8.2 mg/dL (8.4-10.2); Hemolysis Index 5
[2018-07-21 06:18] LABS: Anisocytosis 1+; Band Neutrophils # (Manual) 0.1 K/mm3; Basophils % (Manual) 0 % (0.0-1.8); Eosinophils % (Manual) 0 % (0.0-4.3); Ovalocytes 2+; Poikilocytosis 2+; Total Cells Counted 50
[2018-07-21 06:19] LABS: Helmet Cells Few; Large Platelets Rare; Schistocytes Rare; Tear Drop Cells 1+
[2018-07-21] MEDS ORDERED: NACL 0.9% 1000 ML 500 ML IV SCH (08:00)
[2018-07-21] MEDS ORDERED: NACL 0.9% 500 ML 500 ML IV ONE (08:00)
--- NOTE | 2018-07-21 09:45 | Progress Note ---
Assessment and Plan Cultures: 07/20/18 Blood: No growth to date 07/20/18 Stool WBC : in progress 07/20/18 Crypto: negative 07/20/18 Giardia: negative A/P: 42-year-old male known to ID from recent admission on 06/23/18-06/19/18 for community acquired pneumonia, HIV/AIDS, oral candidiasis and diarrhea, now with: 1. Severe Oral Candidias: Improved likely associated mehnaz esophagitis. on exam significant white plaque on the oropharynx, tongue, inner and outer portion of lips. Will give Fluconazole 800 mg loading dose followed by 400 mg daily luis orrow onwards. Oral care BID, with assistance from bedside nurse. 2. HIV/AIDS: Last admission in June CD4 count 11. Viral load [id number] Remains non compliant with HIV therapy, did not follow up in our clinic as well. 3. Diarrhea: Improved 2 loose stools yesterday, none today. Stool cultures negative thus far 4. Severe Malnutrition: currently able to tolerate liquids, consider protein supplements 5. New Fevers: Resolved. etiology unclear, Blood cultures pending, U/A negative. -Chest Xray - There is mild residual patchy infiltrate in the left lower lobe and lingula. This has decreased by 25-50% since 06/13/18. The remainder of the lungs are clear. 6. Leukopenia: probably related to end stage HIV/AIDS Plan: -Continue Flucanazole 400 mg every 24 hours -continue Azithromycin 1200mg , PO q week -Continue Majic mouthwash -Continue Bactrium DS , PO every 24 hours - Continue Oral care BID with assistance from bedside nurse - f/u Bloods cultures [facility] M: [phone] O:[phone] Subjective Date of service: 07/21/18 Principal diagnosis: Candidiasis,AIDS Interval history: Patient seen and examined. + thrush improvement noted. Stated that he was feeling somewhat better, no diarrhea today. Continues to have problems eating, but can drink liquids now. Objective - Exam Narrative Exam: Constitutional: Alert, awake, no acute distress Head, Ears, Nose: Normocephalic, atraumatic. External ears, nose normal Eyes: Conjunctivae/corneas clear. No icterus. No ptosis. Neck: Supple, no meningeal signs Oral: dentition poor., + Thrush ,significant white plaque on the inner portion of his lips, tongue, and oropharynx.- improved Cardiovascular: S1, S2 normal. Respiratory: Good air entry, clear to auscultation bilaterally GI: Soft, non-tender; bowel sounds normal. No peritoneal signs Musculoskeletal: No pedal edema, no cyanosis. Skin: No rash or abscess. Hem/Lymphatic: No palpable cervical or supraclavicular nodes. No lymphangitis Psych: Mood ok. Affect flat Neurological: Awake, alert, more conversant - Constitutional Vitals: Vital Signs Temp Pulse Resp BP Pulse Ox 98.0 F 74 16 82/50 98 07/21/18 05:06 07/21/18 05:05 07/21/18 05:06 07/21/18 05:06 07/21/18 05:05 Temperature -Last 24 Hours Temperature 98.0 F Temperature 98.0 F Temperature 98.9 F Temperature 98.4 F Temperature 98.2 F Temperature 98.8 F - Labs CBC & Chem 7: 07/21/18 04:39 07/21/18 04:39 Labs: Abnormal lab results 07/20/18 07/21/18 07/21/18 Range/Units 10:32 04:39 04:39 WBC 2.6 L 2.3 L (4.5-11.0) K/mm3 RBC 3.16 L 3.31 L (3.65-5.03) M/mm3 Hgb 8.7 L 9.2 L (11.8-15.2) gm/dl Hct 26.3 L D 28.4 L (35.5-45.6) % MCV 83 L (84-94) fl RDW 15.7 H (13.2-15.2) % Lymph % (Auto) 11.7 L (13.4-35.0) % [place] % (Auto) 9.8 H (0.0-7.3) % Lymph # 0.3 L (1.2-5.4) K/mm3 Seg Neutrophils % 78.2 H (40.0-70.0) % Seg Neuts % (Manual) 88.0 H (40.0-70.0) % Lymphocytes % (Manual) 4.0 L (13.4-35.0) % Lymphocytes # (Manual) 0.1 L (1.2-5.4) K/mm3 Carbon Dioxide 21 L (22-30) mmol/L Calcium 8.2 L (8.4-10.2) mg/dL
[2018-07-21] MEDS: PROAMATINE PO SCH (09:46)
[2018-07-21] MEDS: BACTRIM DS PO SCH (09:46)
[2018-07-21] MEDS: PROTONIX PO SCH (09:46)
[2018-07-21] MEDS: PEPCID IV SCH (09:46)
[2018-07-21] MEDS: MAGIC MOUTHWASH PO SCH ×3 (09:46→19:47)
[2018-07-21] MEDS: SODIUM CHLORIDE FLUSH SYRINGE 10 ML IV SCH (09:48)
[2018-07-21] MEDS: DIFLUCAN 200 ML IV SCH (12:37)
--- NOTE | 2018-07-21 13:23 | Progress Note ---
Assessment and Plan Assessment and plan: (1) AIDS Current Visit: Yes Status: Acute Plan to address problem: Outpatient ID F/U care, Continue PCP/MAC prophylaxis, Pending HIV Genotype, ID consulted Patient is on azithromycin and bactrim Low CD4 count (2) Oral candidiasis Current Visit: Yes Status: Acute Plan to address problem: IV fluconazole, suppportive care, magic mouthwash, oral care, oral suction prn (3) Volume depletion Current Visit: Yes Status: Acute Plan to address problem: IVF resuscitation, monitor uop q shift. (4) Severe malnutrition Current Visit: Yes Status: Acute Plan to address problem: Treat candidiasis, encourage increased protein intake (5) DVT prophylaxis Current Visit: Yes Status: Acute Plan to address problem: SCD to BLE while in bed. ID wants him to continue inpatient treatment for next 2 days. Patient was hypotensive this morning and was given 500 mL of bolus. History Interval history: Patient was seen and evaluated this morning, patient didn't have any complaints. Hospitalist Physical - Physical exam Narrative exam: Not in cardiopulmonary distress. The patient is emaciated. Vital signs as documented. Head exam is unremarkable. Lip swelling and oral thrush No scleral icterus . Neck is without jugular venous distension, thyromegaly, or carotid bruits. Lungs are clear to auscultation. Cardiac exam reveals regular rate and Rhythm. Abdominal exam reveals normal bowel sounds. Extremities are nonedematous and both femoral and pedal pulses are normal. PHYS THERAPIST: Alert and oriented 3. No focal weakness. - Constitutional Vitals: Temp Pulse Resp BP Pulse Ox 98.0 F 98 H 16 98/71 98 07/21/18 05:06 07/21/18 09:54 07/21/18 05:06 07/21/18 09:54 07/21/18 05:05 General appearance: Present: mild distress Results - Labs CBC & Chem 7: 07/21/18 04:39 07/21/18 04:39 Labs: Laboratory Last Values WBC 2.3 K/mm3 (4.5-11.0) L 07/21/18 04:39 RBC 3.31 M/mm3 (3.65-5.03) L 07/21/18 04:39 Hgb 9.2 gm/dl (11.8-15.2) L 07/21/18 04:39 Hct 28.4 % (35.5-45.6) L 07/21/18 04:39 MCV 86 fl (84-94) 07/21/18 04:39 MCH 28 pg (28-32) 07/21/18 04:39 MCHC 32 % (32-34) 07/21/18 04:39 RDW 15.7 % (13.2-15.2) H 07/21/18 04:39 Plt Count 182 K/mm3 (140-440) 07/21/18 04:39 Lymph % (Auto) 11.7 % (13.4-35.0) L 07/20/18 10:32 [place] % (Auto) 9.8 % (0.0-7.3) H 07/20/18 10:32 Eos % (Auto) 0.1 % (0.0-4.3) 07/20/18 10:32 Baso % (Auto) 0.2 % (0.0-1.8) 07/20/18 10:32 Lymph # 0.3 K/mm3 (1.2-5.4) L 07/20/18 10:32 [place] # 0.3 K/mm3 (0.0-0.8) 07/20/18 10:32 Eos # 0.0 K/mm3 (0.0-0.4) 07/20/18 10:32 Baso # 0.0 K/mm3 (0.0-0.1) 07/20/18 10:32 Add Manual Diff Complete 07/21/18 04:39 Total Counted 50 07/21/18 04:39 Seg Neutrophils % 78.2 % (40.0-70.0) H 07/20/18 10:32 Seg Neuts % (Manual) 88.0 % (40.0-70.0) H 07/21/18 04:39 Band Neutrophils % 4.0 % 07/21/18 04:39 Lymphocytes % (Manual) 4.0 % (13.4-35.0) L 07/21/18 04:39 Reactive Lymphs % (Man) 0 % 07/21/18 04:39 Monocytes % (Manual) 4.0 % (0.0-7.3) 07/21/18 04:39 Eosinophils % (Manual) 0 % (0.0-4.3) 07/21/18 04:39 Basophils % (Manual) 0 % (0.0-1.8) 07/21/18 04:39 Metamyelocytes % 0 % 07/21/18 04:39 Myelocytes % 0 % 07/21/18 04:39 Promyelocytes % 0 % 07/21/18 04:39 Blast Cells % 0 % 07/21/18 04:39 Nucleated RBC % Not Reportable 07/21/18 04:39 Seg Neutrophils # 2.0 K/mm3 (1.8-7.7) 07/20/18 10:32 Seg Neutrophils # Man 2.0 K/mm3 (1.8-7.7) 07/21/18 04:39 Band Neutrophils # 0.1 K/mm3 07/21/18 04:39 Lymphocytes # (Manual) 0.1 K/mm3 (1.2-5.4) L 07/21/18 04:39 Abs React Lymphs (Man) 0.0 K/mm3 07/21/18 04:39 Monocytes # (Manual) 0.1 K/mm3 (0.0-0.8) 07/21/18 04:39 Eosinophils # (Manual) 0.0 K/mm3 (0.0-0.4) 07/21/18 04:39 Basophils # (Manual) 0.0 K/mm3 (0.0-0.1) 07/21/18 04:39 Metamyelocytes # 0.0 K/mm3 07/21/18 04:39 Myelocytes # 0.0 K/mm3 07/21/18 04:39 Promyelocytes # 0.0 K/mm3 07/21/18 04:39 Blast Cells # 0.0 K/mm3 07/21/18 04:39 WBC Morphology Not Reportable 07/21/18 04:39 Hypersegmented Neuts Not Reportable 07/21/18 04:39 Hyposegmented Neuts Not Reportable 07/21/18 04:39 Hypogranular Neuts Not Reportable 07/21/18 04:39 Smudge Cells Not Reportable 07/21/18 04:39 Toxic Granulation Not Reportable 07/21/18 04:39 Toxic Vacuolation Not Reportable 07/21/18 04:39 Dohle Bodies Not Reportable 07/21/18 04:39 Pelger-Huet Anomaly Not Reportable 07/21/18 04:39 Giovanni Rods Not Reportable 07/21/18 04:39 Platelet Estimate Appears normal 07/21/18 04:39 Clumped Platelets Not Reportable 07/21/18 04:39 Plt Clumps, EDTA Not Reportable 07/21/18 04:39 Large Platelets Rare 07/21/18 04:39 Giant Platelets Not Reportable 07/21/18 04:39 Platelet Satelliting Not Reportable 07/21/18 04:39 Plt Morphology Comment Not Reportable 07/21/18 04:39 RBC Morphology Not Reportable 07/21/18 04:39 Dimorphic RBCs Not Reportable 07/21/18 04:39 Polychromasia Not Reportable 07/21/18 04:39 Hypochromasia Not Reportable 07/21/18 04:39 Poikilocytosis 2+ 07/21/18 04:39 Anisocytosis 1+ 07/21/18 04:39 Microcytosis 1+ 07/21/18 04:39 Macrocytosis Not Reportable 07/21/18 04:39 Spherocytes Not Reportable 07/21/18 04:39 Pappenheimer Bodies Not Reportable 07/21/18 04:39 Sickle Cells Not Reportable 07/21/18 04:39 Target Cells Not Reportable 07/21/18 04:39 Tear Drop Cells 1+ 07/21/18 04:39 Ovalocytes 2+ 07/21/18 04:39 Helmet Cells Few 07/21/18 04:39 [place] Bodies Not Reportable 07/21/18 04:39 [place] Rings Not Reportable 07/21/18 04:39 Cinthya Cells Not Reportable 07/21/18 04:39 Bite Cells Not Reportable 07/21/18 04:39 Crenated Cell Not Reportable 07/21/18 04:39 Elliptocytes 2+ 07/21/18 04:39 Acanthocytes (Spur) Not Reportable 07/21/18 04:39 Rouleaux Not Reportable 07/21/18 04:39 Hemoglobin C Crystals Not Reportable 07/21/18 04:39 Schistocytes Rare 07/21/18 04:39 Malaria parasites Not Reportable 07/21/18 04:39 Carlos A Bodies Not Reportable 07/21/18 04:39 Hem Pathologist Commnt No 07/21/18 04:39 Sodium 138 mmol/L (137-145) 07/21/18 04:39 Potassium 4.0 mmol/L (3.6-5.0) D 07/21/18 04:39 Chloride 107.0 mmol/L (98-107) 07/21/18 04:39 Carbon Dioxide 21 mmol/L (22-30) L 07/21/18 04:39 Anion Gap 14 mmol/L 07/21/18 04:39 BUN 11 mg/dL (9-20) 07/21/18 04:39 Creatinine 0.8 mg/dL (0.8-1.5) 07/21/18 04:39 Estimated GFR > 60 ml/min 07/21/18 04:39 BUN/Creatinine Ratio 14 % 07/21/18 04:39 Glucose 79 mg/dL (75-100) 07/21/18 04:39 Calcium 8.2 mg/dL (8.4-10.2) L 07/21/18 04:39 Total Bilirubin 0.20 mg/dL (0.1-1.2) 07/18/18 14:31 AST 85 units/L (5-40) H 07/18/18 14:31 ALT 55 units/L (7-56) 07/18/18 14:31 Alkaline Phosphatase 141 units/L (35-129) H 07/18/18 14:31 Total Protein 7.9 g/dL (6.3-8.2) 07/18/18 14:31 Albumin 3.7 g/dL (3.9-5) L 07/18/18 14:31 Albumin/Globulin Ratio 0.9 % 07/18/18 14:31 Urine Color Yellow (Yellow) 07/20/18 19:16 Urine Turbidity Clear (Clear) 07/20/18 19:16 Urine pH 7.0 (5.0-7.0) 07/20/18 19:16 Ur Specific [place] 1.008 (1.003-1.030) 07/20/18 19:16 Urine Protein <15 mg/dl mg/dL (Negative) 07/20/18 19:16 Urine Glucose (UA) Neg mg/dL (Negative) 07/20/18 19:16 Urine Ketones Neg mg/dL (Negative) 07/20/18 19:16 Urine Blood Neg (Negative) 07/20/18 19:16 Urine Nitrite Neg (Negative) 07/20/18 19:16 Urine Bilirubin Neg (Negative) 07/20/18 19:16 Urine Urobilinogen < 2.0 mg/dL (<2.0) 07/20/18 19:16 Ur Leukocyte Esterase Neg (Negative) 07/20/18 19:16 Urine WBC (Auto) 2.0 /HPF (0.0-6.0) 07/20/18 19:16 Urine RBC (Auto) 3.0 /HPF (0.0-6.0) 07/20/18 19:16 Nutrition/Malnutrition Assess - Dietary Evaluation Nutrition/Malnutrition Findings: Nutrition Notes Start: 07/20/18 14:03 Freq: Status: Active Protocol: Document 07/20/18 14:04 ER (Rec: 07/20/18 14:22 ER [id number]) Co-Sign 07/20/18 14:04 LP Nutrition Notes Need for Assessment generated from: Low BMI Initial or Follow up Assessment Other Pertinent Diagnosis AIDS, dysphagia, oral candidiasis, severe malnutrition Current Diet Regular diet Labs/Tests K: 5.5 Pertinent Medications Reviewed Height 5 ft 7 in Weight 50.6 kg [place] Body Weight (kg) 67.27 BMI 17.4 Subjective/Other Information Pt. screen for low BMI. Pt. denied having any N/V/D/C. RN was in the room at time of visit and encouraged pt. to talk. Pt. has had poor PO intake d/t chewing/swallowing difficulties and oral pain. Pt . would like to have Ensure Enlive [place] TID. Burn Absent Trauma Absent Difficulty In Swallowing #1 Nutrition Diagnosis Predicted suboptimal energy intake Etiology dysphagia and oral candidiasis As Evidenced by Signs and Symptoms poor PO intake and oral pain secondary to candidiasis Is patient on ventilator? No Is Patient Ambulatory and/or Out of Bed No REE-([facility]-confined to bed) 1640.976 Kcal/Kg value to use for calculation 40 Approximate Energy Requirements Using 2023 kcal/Kg Calculation Used for Recommendations Kcal/kg Additional Notes PRO needs: 51-77g (1-1.5g/kg) Fluid needs: 1 mL/kcal Nutrition Intervention Add Supplement/Snack (indicate name/kcal Ensure Enlive TID (strawberry) /protein ) Provides kCal: 1,050 Provides Protein (gm) 60 Goal #1 Pt. to meet at least 80% of energy and protein needs through PO and ONS intakes. Goal #2 ONS tolerance Follow-Up By: 07/22/18 Additional Comments F/U: PO and ONS intake
--- NOTE | 2018-07-22 09:26 | Progress Note ---
Assessment and Plan Cultures: 07/20/18 Blood: No growth to date 07/20/18 Stool WBC : negative 07/20/18 Crypto: negative 07/20/18 Giardia: negative A/P: 42-year-old male known to ID from recent admission on 06/23/18-06/19/18 for community acquired pneumonia, HIV/AIDS, oral candidiasis and diarrhea, now with: 1. Severe Oral Candidias: Improved likely associated mehnaz esophagitis. on exam significant white plaque on the oropharynx, tongue, inner and outer portion of lips. Will give Fluconazole 800 mg loading dose followed by 400 mg daily tomorrow onwards. Oral care BID, with assistance from bedside nurse. 2. HIV/AIDS: Last admission in June CD4 count 11. Viral load [id number] Remains non compliant with HIV therapy, did not follow up in our clinic as well. 3. Diarrhea: Improved 2 loose stools yesterday, none today. Stool cultures negative thus far 4. Severe Malnutrition: currently able to tolerate liquids, consider protein supplements 5. New Fevers: Resolved. etiology unclear, Blood cultures pending, U/A negative. -Chest Xray - There is mild residual patchy infiltrate in the left lower lobe and lingula. This has decreased by 25-50% since 06/13/18. The remainder of the lungs are clear. 6. Leukopenia: probably related to end stage HIV/AIDS Plan: -Continue Flucanazole 400 mg every 24 hours -continue Azithromycin 1200mg , PO q week -Continue [place] mouthwash -Continue Bactrium DS , PO every 24 hours - Continue Oral care BID with assistance from bedside nurse - f/u Bloods cultures [facility] M: [phone] O:[phone] Subjective Date of service: 07/22/18 Principal diagnosis: Candidiasis,AIDS Interval history: Patient seen and examined. + thrush improvement noted. Stated that he was feeling somewhat better, no diarrhea today. Continues to drink fluids without complications, able to eat 50% of solid food tray. Objective - Exam Narrative Exam: Constitutional: Alert, awake, no acute distress Head, Ears, Nose: Normocephalic, atraumatic. External ears, nose normal Eyes: Conjunctivae/corneas clear. No icterus. No ptosis. Neck: Supple, no meningeal signs Oral: dentition poor., + Thrush ,significant white plaque on the inner portion of his lips, tongue, and oropharynx.- improved Cardiovascular: S1, S2 normal. Respiratory: Good air entry, clear to auscultation bilaterally GI: Soft, non-tender; bowel sounds normal. No peritoneal signs Musculoskeletal: No pedal edema, no cyanosis. Skin: No rash or abscess. Hem/Lymphatic: No palpable cervical or supraclavicular nodes. No lymphangitis Psych: Mood ok. Affect flat Neurological: Awake, alert, more conversant - Constitutional Vitals: Vital Signs Temp Pulse Resp BP Pulse Ox 99.4 F 83 20 99/60 99 07/22/18 06:18 07/22/18 06:18 07/22/18 06:18 07/22/18 06:18 07/22/18 06:18 Temperature -Last 24 Hours Temperature 99.4 F Temperature 99.4 F Temperature 100.8 F Temperature 99.1 F - Labs CBC & Chem 7: 07/21/18 04:39 07/21/18 04:39
[2018-07-22] MEDS: MAGIC MOUTHWASH PO SCH ×4 (09:52→23:13)
[2018-07-22] MEDS: DIFLUCAN 200 ML IV SCH (09:53)
[2018-07-22] MEDS: SODIUM CHLORIDE FLUSH SYRINGE 10 ML IV SCH (09:53)
[2018-07-22] MEDS: PROTONIX PO SCH (10:00)
[2018-07-22] MEDS: PROAMATINE PO SCH (10:00)
[2018-07-22] MEDS: BACTRIM DS PO SCH (10:00)
--- NOTE | 2018-07-22 13:56 | Progress Note ---
Assessment and Plan Assessment and plan: (1) AIDS Current Visit: Yes Status: Acute Plan to address problem: Outpatient ID F/U care, Continue PCP/MAC prophylaxis, Pending HIV Genotype, ID consulted Patient is on azithromycin and bactrim Low CD4 count (2) Oral candidiasis Current Visit: Yes Status: Acute Plan to address problem: IV fluconazole, suppportive care, magic mouthwash, oral care, oral suction prn (3) Volume depletion Current Visit: Yes Status: Acute Plan to address problem: IVF resuscitation, monitor uop q shift. (4) Severe malnutrition Current Visit: Yes Status: Acute Plan to address problem: Treat candidiasis, encourage increased protein intake (5) DVT prophylaxis Current Visit: Yes Status: Acute Plan to address problem: SCD to BLE while in bed. Disposition; per ID. History Interval history: Patient was seen and evaluated this morning, patient didn't have any complaints. No dysphagia. Hospitalist Physical - Physical exam Narrative exam: Not in cardiopulmonary distress. The patient is emaciated. Vital signs as documented. Head exam is unremarkable. Lip swelling and oral thrush No scleral icterus . Neck is without jugular venous distension, thyromegaly, or carotid bruits. Lungs are clear to auscultation. Cardiac exam reveals regular rate and Rhythm. Abdominal exam reveals normal bowel sounds. Extremities are nonedematous and both femoral and pedal pulses are normal. HAND COUNTER: Alert and oriented 3. No focal weakness. - Constitutional Vitals: Temp Pulse Resp BP Pulse Ox 98.3 F 78 18 96/63 98 07/22/18 12:06 07/22/18 12:06 07/22/18 12:06 07/22/18 12:06 07/22/18 12:06 General appearance: Present: mild distress Results - Labs CBC & Chem 7: 07/21/18 04:39 07/21/18 04:39 Labs: Laboratory Last Values WBC 2.3 K/mm3 (4.5-11.0) L 07/21/18 04:39 RBC 3.31 M/mm3 (3.65-5.03) L 07/21/18 04:39 Hgb 9.2 gm/dl (11.8-15.2) L 07/21/18 04:39 Hct 28.4 % (35.5-45.6) L 07/21/18 04:39 MCV 86 fl (84-94) 07/21/18 04:39 MCH 28 pg (28-32) 07/21/18 04:39 MCHC 32 % (32-34) 07/21/18 04:39 RDW 15.7 % (13.2-15.2) H 07/21/18 04:39 Plt Count 182 K/mm3 (140-440) 07/21/18 04:39 Lymph % (Auto) 11.7 % (13.4-35.0) L 07/20/18 10:32 [place] % (Auto) 9.8 % (0.0-7.3) H 07/20/18 10:32 Eos % (Auto) 0.1 % (0.0-4.3) 07/20/18 10:32 Baso % (Auto) 0.2 % (0.0-1.8) 07/20/18 10:32 Lymph # 0.3 K/mm3 (1.2-5.4) L 07/20/18 10:32 [place] # 0.3 K/mm3 (0.0-0.8) 07/20/18 10:32 Eos # 0.0 K/mm3 (0.0-0.4) 07/20/18 10:32 Baso # 0.0 K/mm3 (0.0-0.1) 07/20/18 10:32 Add Manual Diff Complete 07/21/18 04:39 Total Counted 50 07/21/18 04:39 Seg Neutrophils % 78.2 % (40.0-70.0) H 07/20/18 10:32 Seg Neuts % (Manual) 88.0 % (40.0-70.0) H 07/21/18 04:39 Band Neutrophils % 4.0 % 07/21/18 04:39 Lymphocytes % (Manual) 4.0 % (13.4-35.0) L 07/21/18 04:39 Reactive Lymphs % (Man) 0 % 07/21/18 04:39 Monocytes % (Manual) 4.0 % (0.0-7.3) 07/21/18 04:39 Eosinophils % (Manual) 0 % (0.0-4.3) 07/21/18 04:39 Basophils % (Manual) 0 % (0.0-1.8) 07/21/18 04:39 Metamyelocytes % 0 % 07/21/18 04:39 Myelocytes % 0 % 07/21/18 04:39 Promyelocytes % 0 % 07/21/18 04:39 Blast Cells % 0 % 07/21/18 04:39 Nucleated RBC % Not Reportable 07/21/18 04:39 Seg Neutrophils # 2.0 K/mm3 (1.8-7.7) 07/20/18 10:32 Seg Neutrophils # Man 2.0 K/mm3 (1.8-7.7) 07/21/18 04:39 Band Neutrophils # 0.1 K/mm3 07/21/18 04:39 Lymphocytes # (Manual) 0.1 K/mm3 (1.2-5.4) L 07/21/18 04:39 Abs React Lymphs (Man) 0.0 K/mm3 07/21/18 04:39 Monocytes # (Manual) 0.1 K/mm3 (0.0-0.8) 07/21/18 04:39 Eosinophils # (Manual) 0.0 K/mm3 (0.0-0.4) 07/21/18 04:39 Basophils # (Manual) 0.0 K/mm3 (0.0-0.1) 07/21/18 04:39 Metamyelocytes # 0.0 K/mm3 07/21/18 04:39 Myelocytes # 0.0 K/mm3 07/21/18 04:39 Promyelocytes # 0.0 K/mm3 07/21/18 04:39 Blast Cells # 0.0 K/mm3 07/21/18 04:39 WBC Morphology Not Reportable 07/21/18 04:39 Hypersegmented Neuts Not Reportable 07/21/18 04:39 Hyposegmented Neuts Not Reportable 07/21/18 04:39 Hypogranular Neuts Not Reportable 07/21/18 04:39 Smudge Cells Not Reportable 07/21/18 04:39 Toxic Granulation Not Reportable 07/21/18 04:39 Toxic Vacuolation Not Reportable 07/21/18 04:39 Dohle Bodies Not Reportable 07/21/18 04:39 Pelger-Huet Anomaly Not Reportable 07/21/18 04:39 Giovanni Rods Not Reportable 07/21/18 04:39 Platelet Estimate Appears normal 07/21/18 04:39 Clumped Platelets Not Reportable 07/21/18 04:39 Plt Clumps, EDTA Not Reportable 07/21/18 04:39 Large Platelets Rare 07/21/18 04:39 Giant Platelets Not Reportable 07/21/18 04:39 Platelet Satelliting Not Reportable 07/21/18 04:39 Plt Morphology Comment Not Reportable 07/21/18 04:39 RBC Morphology Not Reportable 07/21/18 04:39 Dimorphic RBCs Not Reportable 07/21/18 04:39 Polychromasia Not Reportable 07/21/18 04:39 Hypochromasia Not Reportable 07/21/18 04:39 Poikilocytosis 2+ 07/21/18 04:39 Anisocytosis 1+ 07/21/18 04:39 Microcytosis 1+ 07/21/18 04:39 Macrocytosis Not Reportable 07/21/18 04:39 Spherocytes Not Reportable 07/21/18 04:39 Pappenheimer Bodies Not Reportable 07/21/18 04:39 Sickle Cells Not Reportable 07/21/18 04:39 Target Cells Not Reportable 07/21/18 04:39 Tear Drop Cells 1+ 07/21/18 04:39 Ovalocytes 2+ 07/21/18 04:39 Helmet Cells Few 07/21/18 04:39 [place] Bodies Not Reportable 07/21/18 04:39 [place] Rings Not Reportable 07/21/18 04:39 Cinthya Cells Not Reportable 07/21/18 04:39 Bite Cells Not Reportable 07/21/18 04:39 Crenated Cell Not Reportable 07/21/18 04:39 Elliptocytes 2+ 07/21/18 04:39 Acanthocytes (Spur) Not Reportable 07/21/18 04:39 Rouleaux Not Reportable 07/21/18 04:39 Hemoglobin C Crystals Not Reportable 07/21/18 04:39 Schistocytes Rare 07/21/18 04:39 Malaria parasites Not Reportable 07/21/18 04:39 Carlos A Bodies Not Reportable 07/21/18 04:39 Hem Pathologist Commnt No 07/21/18 04:39 Sodium 138 mmol/L (137-145) 07/21/18 04:39 Potassium 4.0 mmol/L (3.6-5.0) D 07/21/18 04:39 Chloride 107.0 mmol/L (98-107) 07/21/18 04:39 Carbon Dioxide 21 mmol/L (22-30) L 07/21/18 04:39 Anion Gap 14 mmol/L 07/21/18 04:39 BUN 11 mg/dL (9-20) 07/21/18 04:39 Creatinine 0.8 mg/dL (0.8-1.5) 07/21/18 04:39 Estimated GFR > 60 ml/min 07/21/18 04:39 BUN/Creatinine Ratio 14 % 07/21/18 04:39 Glucose 79 mg/dL (75-100) 07/21/18 04:39 Calcium 8.2 mg/dL (8.4-10.2) L 07/21/18 04:39 Total Bilirubin 0.20 mg/dL (0.1-1.2) 07/18/18 14:31 AST 85 units/L (5-40) H 07/18/18 14:31 ALT 55 units/L (7-56) 07/18/18 14:31 Alkaline Phosphatase 141 units/L (35-129) H 07/18/18 14:31 Total Protein 7.9 g/dL (6.3-8.2) 07/18/18 14:31 Albumin 3.7 g/dL (3.9-5) L 07/18/18 14:31 Albumin/Globulin Ratio 0.9 % 07/18/18 14:31 Urine Color Yellow (Yellow) 07/20/18 19:16 Urine Turbidity Clear (Clear) 07/20/18 19:16 Urine pH 7.0 (5.0-7.0) 07/20/18 19:16 Ur Specific [place] 1.008 (1.003-1.030) 07/20/18 19:16 Urine Protein <15 mg/dl mg/dL (Negative) 07/20/18 19:16 Urine Glucose (UA) Neg mg/dL (Negative) 07/20/18 19:16 Urine Ketones Neg mg/dL (Negative) 07/20/18 19:16 Urine Blood Neg (Negative) 07/20/18 19:16 Urine Nitrite Neg (Negative) 07/20/18 19:16 Urine Bilirubin Neg (Negative) 07/20/18 19:16 Urine Urobilinogen < 2.0 mg/dL (<2.0) 07/20/18 19:16 Ur Leukocyte Esterase Neg (Negative) 07/20/18 19:16 Urine WBC (Auto) 2.0 /HPF (0.0-6.0) 07/20/18 19:16 Urine RBC (Auto) 3.0 /HPF (0.0-6.0) 07/20/18 19:16 Nutrition/Malnutrition Assess - Dietary Evaluation Nutrition/Malnutrition Findings: Nutrition Notes Start: 07/20/18 14:03 Freq: Status: Active Protocol: Document 07/22/18 11:05 TW (Rec: 07/22/18 12:04 [id number]) Co-Sign 07/22/18 11:05 Nutrition Notes Initial or Follow up Reassessment Other Pertinent Diagnosis AIDS, dysphagia, oral candidiasis, severe malnutrition Current Diet Regular diet w/Ensure Enlive [place] TID Labs/Tests Reviewed. Pertinent Medications Reviewed Height 5 ft 7 in Weight 45 kg [place] Body Weight (kg) 67.27 BMI 15.5 Weight change and time frame Current wt obtained by [facility]. Subjective/Other Information Pt stated his appetite is fair and that he is eating about half of his meals and Ensures. Pt denied swallowing difficulty. Percent of energy/protein needs met: 94%/100% Burn Absent Trauma Absent #1 Nutrition Diagnosis Predicted suboptimal energy intake As Evidenced by Signs and Symptoms Pt meeting 94% of kcal needs and 100% of protein needs Diagnosis Progress(for reassessment Improved documentation) Is patient on ventilator? No Is Patient Ambulatory and/or Out of Bed No REE-([facility]-confined to bed) 1573.848 Kcal/Kg value to use for calculation 40 Approximate Energy Requirements Using 1800 kcal/Kg Calculation Used for Recommendations Kcal/kg Additional Notes PRO needs: 55-77g (1.2-1.5g/kg ) Fluid needs: 1 mL/kcal Nutrition Intervention Add Supplement/Snack (indicate name/kcal Ensure Enlive TID (strawberry) /protein ) Provides kCal: 1,050 Provides Protein (gm) 60 Goal #1 Continue to meet at least 75% of energy and protein needs through PO and ONS intakes. Follow-Up By: 07/28/18 Additional Comments F/U: PO and ONS intake
[2018-07-22] MEDS: NACL 0.9% 1000 ML 1,000 ML IV SCH (19:35)
[2018-07-22] MEDS: TYLENOL PO PRN (23:14)
[2018-07-22] MEDS: SODIUM CHLORIDE FLUSH SYRINGE 10 ML IV PRN ×2 (23:15→23:16)
[2018-07-23] MEDS: MAGIC MOUTHWASH PO SCH ×5 (00:11→21:40)
[2018-07-23] MEDS: SODIUM CHLORIDE FLUSH SYRINGE 10 ML IV SCH ×4 (00:12→21:45)
[2018-07-23] MEDS: NACL 0.9% 1000 ML 1,000 ML IV SCH (06:06)
--- NOTE | 2018-07-23 09:51 | Progress Note ---
Assessment and Plan Cultures: 07/20/18 Blood: No growth to date 07/20/18 Stool WBC : negative 07/20/18 Crypto: negative 07/20/18 Giardia: negative A/P: 42-year-old male known to ID from recent admission on 06/23/18-06/19/18 for community acquired pneumonia, HIV/AIDS, oral candidiasis and diarrhea, now with: 1. Severe Oral Candidias: Worsening Oraphageal lesions on exam significant white plaque on the oropharynx, tongue, inner and outer portion of lips. Possibly resistant to Carolann. Will discontiue flucanazole and start micafungin. + increased inflammation and swelling around lips, will order CT of face and neck to evaluate infiltrate process. +/- HSV activation, will start acyclovir. 2. HIV/AIDS: Last admission in June CD4 count 11. Viral load [id number] Remains non compliant with HIV therapy, did not follow up in our clinic as well. 3. Diarrhea: Resolved 4. Severe Malnutrition: currently able to tolerate liquids, consider protein supplements 5. New Fevers: Resolved. etiology unclear, Blood cultures pending, U/A negative. -Chest Xray - There is mild residual patchy infiltrate in the left lower lobe and lingula. This has decreased by 25-50% since 06/13/18. The remainder of the lungs are clear. 6. Leukopenia: probably related to end stage HIV/AIDS Plan: -Discontnue Flucanazole, possibly resistant to Carolann. -Start Micafungin 100 mg IV q day -Start Acyclovir 400mg IV every 8 hours for possible HSV activation -continue Azithromycin 1200mg , PO q week -Continue Magic mouthwash -Continue Bactrium DS , PO every 24 hours -Continue Oral care BID with assistance from bedside nurse Dr. Ryder will be independent contractor this weekend , please call for questions. JAIME [facility] M: [phone] O:[phone] Subjective Date of service: 07/23/18 Principal diagnosis: Candidiasis,AIDS Interval history: Patient seen and examined. Unable to speak clearly today, worsening thrush. States that he is unable to eat solid foods, continues to drink fluids only. Also states that his lips are hurting. Objective - Exam Narrative Exam: Constitutional: Alert, awake, acute distress Head, Ears, Nose: Normocephalic, atraumatic. External ears, nose normal Eyes: Conjunctivae/corneas clear. No icterus. No ptosis. Neck: Supple, no meningeal signs Oral: dentition poor., + Thrush ,significant white plaque on the inner portion of his lips, tongue, and oropharynx.- Worsening Cardiovascular: S1, S2 normal. Respiratory: Good air entry, clear to auscultation bilaterally GI: Soft, non-tender; bowel sounds normal. No peritoneal signs Musculoskeletal: No pedal edema, no cyanosis. Skin: No rash or abscess. Hem/Lymphatic: No palpable cervical or supraclavicular nodes. No lymphangitis Psych: Mood ok. Affect flat Neurological: mostly nonconversant, difficult to speak , + thrush - Constitutional Vitals: Vital Signs Temp Pulse Resp BP Pulse Ox 98.6 F 75 18 90/58 90 07/23/18 07:45 07/23/18 07:45 07/23/18 07:45 07/23/18 07:45 07/23/18 07:45 Temperature -Last 24 Hours Temperature 98.6 F Temperature 98.8 F Temperature 100.6 F Temperature 99.1 F Temperature 98.3 F - Labs CBC & Chem 7: 07/21/18 04:39 07/21/18 04:39
[2018-07-23] MEDS: BACTRIM DS PO SCH (11:06)
[2018-07-23] MEDS: PROTONIX PO SCH (11:06)
[2018-07-23] MEDS: PROAMATINE PO SCH (11:07)
[2018-07-23] MEDS: DIFLUCAN 200 ML IV SCH (11:07)
--- NOTE | 2018-07-23 14:20 | Progress Note ---
Assessment and Plan Assessment and plan: (1) AIDS Current Visit: Yes Status: Acute Plan to address problem: Outpatient ID F/U care, Continue PCP/MAC prophylaxis, Pending HIV Genotype, ID consulted Patient is on azithromycin and bactrim Low CD4 count (2) Oral candidiasis getting worse on fluconazole - ID consulted and will change his anti fungals - CT neck and facial bones ordered - suppportive care, magic mouthwash, oral care, oral suction prn (3) Volume depletion Current Visit: Yes Status: Acute Plan to address problem: IVF resuscitation, monitor uop q shift. will give him bolus as needed (4) Severe malnutrition Current Visit: Yes Status: Acute Plan to address problem: Treat candidiasis, encourage increased protein intake (5) DVT prophylaxis Current Visit: Yes Status: Acute Plan to address problem: SCD to BLE while in bed. Disposition; per ID continue inpatient care, CT if there is mass patient needs ENT evaluation for possible biopsy. History Interval history: Patient was seen and evaluated this morning, patient said he is not able to eat and the swelling is getting worse. Hospitalist Physical - Physical exam Narrative exam: Not in cardiopulmonary distress. The patient is emaciated. Vital signs as documented. Head exam is unremarkable. Lip swelling and oral thrush No scleral icterus . Neck is without jugular venous distension, thyromegaly, or carotid bruits. Lungs are clear to auscultation. Cardiac exam reveals regular rate and Rhythm. Abdominal exam reveals normal bowel sounds. Extremities are nonedematous and both femoral and pedal pulses are normal. 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 No focal weakness. - Constitutional Vitals: Temp Pulse Resp BP Pulse Ox 99.1 F 81 19 92/57 96 07/23/18 12:26 07/23/18 12:26 07/23/18 12:26 07/23/18 12:26 07/23/18 12:26 General appearance: Present: mild distress Results - Labs CBC & Chem 7: 07/21/18 04:39 07/21/18 04:39 Labs: Laboratory Last Values WBC 2.3 K/mm3 (4.5-11.0) L 07/21/18 04:39 RBC 3.31 M/mm3 (3.65-5.03) L 07/21/18 04:39 Hgb 9.2 gm/dl (11.8-15.2) L 07/21/18 04:39 Hct 28.4 % (35.5-45.6) L 07/21/18 04:39 MCV 86 fl (84-94) 07/21/18 04:39 MCH 28 pg (28-32) 07/21/18 04:39 MCHC 32 % (32-34) 07/21/18 04:39 RDW 15.7 % (13.2-15.2) H 07/21/18 04:39 Plt Count 182 K/mm3 (140-440) 07/21/18 04:39 Lymph % (Auto) 11.7 % (13.4-35.0) L 07/20/18 10:32 [facility] % (Auto) 9.8 % (0.0-7.3) H 07/20/18 10:32 Eos % (Auto) 0.1 % (0.0-4.3) 07/20/18 10:32 Baso % (Auto) 0.2 % (0.0-1.8) 07/20/18 10:32 Lymph # 0.3 K/mm3 (1.2-5.4) L 07/20/18 10:32 [facility] # 0.3 K/mm3 (0.0-0.8) 07/20/18 10:32 Eos # 0.0 K/mm3 (0.0-0.4) 07/20/18 10:32 Baso # 0.0 K/mm3 (0.0-0.1) 07/20/18 10:32 Add Manual Diff Complete 07/21/18 04:39 Total Counted 50 07/21/18 04:39 Seg Neutrophils % 78.2 % (40.0-70.0) H 07/20/18 10:32 Seg Neuts % (Manual) 88.0 % (40.0-70.0) H 07/21/18 04:39 Band Neutrophils % 4.0 % 07/21/18 04:39 Lymphocytes % (Manual) 4.0 % (13.4-35.0) L 07/21/18 04:39 Reactive Lymphs % (Man) 0 % 07/21/18 04:39 Monocytes % (Manual) 4.0 % (0.0-7.3) 07/21/18 04:39 Eosinophils % (Manual) 0 % (0.0-4.3) 07/21/18 04:39 Basophils % (Manual) 0 % (0.0-1.8) 07/21/18 04:39 Metamyelocytes % 0 % 07/21/18 04:39 Myelocytes % 0 % 07/21/18 04:39 Promyelocytes % 0 % 07/21/18 04:39 Blast Cells % 0 % 07/21/18 04:39 Nucleated RBC % Not Reportable 07/21/18 04:39 Seg Neutrophils # 2.0 K/mm3 (1.8-7.7) 07/20/18 10:32 Seg Neutrophils # Man 2.0 K/mm3 (1.8-7.7) 07/21/18 04:39 Band Neutrophils # 0.1 K/mm3 07/21/18 04:39 Lymphocytes # (Manual) 0.1 K/mm3 (1.2-5.4) L 07/21/18 04:39 Abs React Lymphs (Man) 0.0 K/mm3 07/21/18 04:39 Monocytes # (Manual) 0.1 K/mm3 (0.0-0.8) 07/21/18 04:39 Eosinophils # (Manual) 0.0 K/mm3 (0.0-0.4) 07/21/18 04:39 Basophils # (Manual) 0.0 K/mm3 (0.0-0.1) 07/21/18 04:39 Metamyelocytes # 0.0 K/mm3 07/21/18 04:39 Myelocytes # 0.0 K/mm3 07/21/18 04:39 Promyelocytes # 0.0 K/mm3 07/21/18 04:39 Blast Cells # 0.0 K/mm3 07/21/18 04:39 WBC Morphology Not Reportable 07/21/18 04:39 Hypersegmented Neuts Not Reportable 07/21/18 04:39 Hyposegmented Neuts Not Reportable 07/21/18 04:39 Hypogranular Neuts Not Reportable 07/21/18 04:39 Smudge Cells Not Reportable 07/21/18 04:39 Toxic Granulation Not Reportable 07/21/18 04:39 Toxic Vacuolation Not Reportable 07/21/18 04:39 Dohle Bodies Not Reportable 07/21/18 04:39 Pelger-Huet Anomaly Not Reportable 07/21/18 04:39 Giovanni Rods Not Reportable 07/21/18 04:39 Platelet Estimate Appears normal 07/21/18 04:39 Clumped Platelets Not Reportable 07/21/18 04:39 Plt Clumps, EDTA Not Reportable 07/21/18 04:39 Large Platelets Rare 07/21/18 04:39 Giant Platelets Not Reportable 07/21/18 04:39 Platelet Satelliting Not Reportable 07/21/18 04:39 Plt Morphology Comment Not Reportable 07/21/18 04:39 RBC Morphology Not Reportable 07/21/18 04:39 Dimorphic RBCs Not Reportable 07/21/18 04:39 Polychromasia Not Reportable 07/21/18 04:39 Hypochromasia Not Reportable 07/21/18 04:39 Poikilocytosis 2+ 07/21/18 04:39 Anisocytosis 1+ 07/21/18 04:39 Microcytosis 1+ 07/21/18 04:39 Macrocytosis Not Reportable 07/21/18 04:39 Spherocytes Not Reportable 07/21/18 04:39 Pappenheimer Bodies Not Reportable 07/21/18 04:39 Sickle Cells Not Reportable 07/21/18 04:39 Target Cells Not Reportable 07/21/18 04:39 Tear Drop Cells 1+ 07/21/18 04:39 Ovalocytes 2+ 07/21/18 04:39 Helmet Cells Few 07/21/18 04:39 [place] Bodies Not Reportable 07/21/18 04:39 [employer] Rings Not Reportable 07/21/18 04:39 [place] Cells Not Reportable 07/21/18 04:39 Bite Cells Not Reportable 07/21/18 04:39 Crenated Cell Not Reportable 07/21/18 04:39 Elliptocytes 2+ 07/21/18 04:39 Acanthocytes (Spur) Not Reportable 07/21/18 04:39 Rouleaux Not Reportable 07/21/18 04:39 Hemoglobin C Crystals Not Reportable 07/21/18 04:39 Schistocytes Rare 07/21/18 04:39 Malaria parasites Not Reportable 07/21/18 04:39 Carlos A Bodies Not Reportable 07/21/18 04:39 Hem Pathologist Commnt No 07/21/18 04:39 Sodium 138 mmol/L (137-145) 07/21/18 04:39 Potassium 4.0 mmol/L (3.6-5.0) D 07/21/18 04:39 Chloride 107.0 mmol/L (98-107) 07/21/18 04:39 Carbon Dioxide 21 mmol/L (22-30) L 07/21/18 04:39 Anion Gap 14 mmol/L 07/21/18 04:39 BUN 11 mg/dL (9-20) 07/21/18 04:39 Creatinine 0.8 mg/dL (0.8-1.5) 07/21/18 04:39 Estimated GFR > 60 ml/min 07/21/18 04:39 BUN/Creatinine Ratio 14 % 07/21/18 04:39 Glucose 79 mg/dL (75-100) 07/21/18 04:39 Calcium 8.2 mg/dL (8.4-10.2) L 07/21/18 04:39 Total Bilirubin 0.20 mg/dL (0.1-1.2) 07/18/18 14:31 AST 85 units/L (5-40) H 07/18/18 14:31 ALT 55 units/L (7-56) 07/18/18 14:31 Alkaline Phosphatase 141 units/L (35-129) H 07/18/18 14:31 Total Protein 7.9 g/dL (6.3-8.2) 07/18/18 14:31 Albumin 3.7 g/dL (3.9-5) L 07/18/18 14:31 Albumin/Globulin Ratio 0.9 % 07/18/18 14:31 Urine Color Yellow (Yellow) 07/20/18 19:16 Urine Turbidity Clear (Clear) 07/20/18 19:16 Urine pH 7.0 (5.0-7.0) 07/20/18 19:16 Ur Specific [place] 1.008 (1.003-1.030) 07/20/18 19:16 Urine Protein <15 mg/dl mg/dL (Negative) 07/20/18 19:16 Urine Glucose (UA) Neg mg/dL (Negative) 07/20/18 19:16 Urine Ketones Neg mg/dL (Negative) 07/20/18 19:16 Urine Blood Neg (Negative) 07/20/18 19:16 Urine Nitrite Neg (Negative) 07/20/18 19:16 Urine Bilirubin Neg (Negative) 07/20/18 19:16 Urine Urobilinogen < 2.0 mg/dL (<2.0) 07/20/18 19:16 Ur Leukocyte Esterase Neg (Negative) 07/20/18 19:16 Urine WBC (Auto) 2.0 /HPF (0.0-6.0) 07/20/18 19:16 Urine RBC (Auto) 3.0 /HPF (0.0-6.0) 07/20/18 19:16 Nutrition/Malnutrition Assess - Dietary Evaluation Nutrition/Malnutrition Findings: Nutrition Notes Start: 07/20/18 14:03 Freq: Status: Active Protocol: Document 07/22/18 11:05 TW (Rec: 07/22/18 12:04 TW [id number]) Co-Sign 07/22/18 11:05 Nutrition Notes Initial or Follow up Reassessment Other Pertinent Diagnosis AIDS, dysphagia, oral candidiasis, severe malnutrition Current Diet Regular diet w/Ensure Enlive [place] TID Labs/Tests Reviewed. Pertinent Medications Reviewed Height 5 ft 7 in Weight 45 kg [place] Body Weight (kg) 67.27 BMI 15.5 Weight change and time frame [facility] Subjective/Other Information Pt stated his appetite is fair and that he is eating about half of his meals and Ensures. Pt denied swallowing difficulty. Percent of energy/protein needs met: 94%/100% Burn Absent Trauma Absent #1 Nutrition Diagnosis Predicted suboptimal energy intake As Evidenced by Signs and Symptoms Pt meeting 94% of kcal needs and 100% of protein needs Diagnosis Progress(for reassessment Improved documentation) Is patient on ventilator? No Is Patient Ambulatory and/or Out of Bed No REE-([place]-confined to bed) 1573.848 Kcal/Kg value to use for calculation 40 Approximate Energy Requirements Using 1800 kcal/Kg Calculation Used for Recommendations Kcal/kg Additional Notes PRO needs: 55-77g (1.2-1.5g/kg ) Fluid needs: 1 mL/kcal Nutrition Intervention Add Supplement/Snack (indicate name/kcal Ensure Enlive TID (strawberry) /protein ) Provides kCal: 1,050 Provides Protein (gm) 60 Goal #1 Continue to meet at least 75% of energy and protein needs through PO and ONS intakes. Follow-Up By: 07/28/18 Additional Comments F/U: PO and ONS intake
[2018-07-23] MEDS: NACL 0.9% IV SCH ×2 (14:53→21:39)
[2018-07-23] MEDS: MYCAMINE 100 MG in NACL 0.9% 100 ML IV SCH (14:53)
[2018-07-23] MEDS: ZOVIRAX IV SCH ×2 (14:53→21:39)
--- NOTE | 2018-07-23 16:56 | Cat Scan Report ---
FINAL REPORT EXAM: CT NECK W CON HISTORY: AIDS, worsening oropharyngeal lesions TECHNIQUE: CT examination of the neck with IV contrast PRIORS: None. FINDINGS: Visualized brain: No focal abnormality Paranasal sinuses: Slight mucosal thickening left maxillary and left sphenoid sinuses. Visualized lung apices: No focal abnormality [place] tonsils: No focal abnormality Parapharyngeal fat planes: No focal abnormality Nonspecific small hypodensity appears to contain ring enhancement in the right soft palate region marvin suring 6 x 12 mm. This may be a small abscess. Lymph nodes: No focal abnormality or gross enlargement Torus tubaris: No focal abnormality Fossa of [place]: No focal abnormality Parotid and submandibular glands: No focal abnormality Vessels: No focal abnormality Cervical spine: Multilevel degenerative change Epiglottis: No focal abnormality Vallecula: No focal abnormality Piriform sinus: No focal abnormality Vocal cord region: No focal abnormality Thyroid: No focal abnormality IMPRESSION: Nonspecific small hypodensity appears to contain ring enhancement in the right soft palate region marvin suring 6 x 12 mm. This may be a small abscess.
[2018-07-24] MEDS: TYLENOL PO PRN (00:36)
[2018-07-24] MEDS: NACL 0.9% 1000 ML 1,000 ML IV SCH ×2 (00:37→13:18)
[2018-07-24] MEDS: ZOVIRAX IV SCH ×3 (05:43→22:14)
[2018-07-24] MEDS: NACL 0.9% IV SCH ×3 (05:43→22:14)
[2018-07-24 06:56] LABS: BUN/Creatinine Ratio 29; Blood Urea Nitrogen 20 mg/dL (9-20); Calcium 8.4 mg/dL (8.4-10.2); Hemolysis Index 2
[2018-07-24] MEDS: PROAMATINE PO SCH (09:46)
[2018-07-24] MEDS: PROTONIX PO SCH (09:47)
[2018-07-24] MEDS: MYCAMINE 100 MG in NACL 0.9% 100 ML IV SCH (09:47)
[2018-07-24] MEDS: BACTRIM DS PO SCH (09:47)
[2018-07-24] MEDS: MAGIC MOUTHWASH PO SCH ×4 (09:50→22:14)
[2018-07-24] MEDS: SODIUM CHLORIDE FLUSH SYRINGE 10 ML IV SCH ×2 (09:51→22:15)
--- NOTE | 2018-07-24 12:28 | XRay Report ---
FINAL REPORT EXAM: XR CHEST 1V AP HISTORY: fever COMPARISON: Chest radiograph performed on 06/12/2018 TECHNIQUE: Frontal view of the chest FINDINGS: The cardiomediastinal silhouette is normal in appearance. There are patchy opacities in the left lung base, slightly increased since the previous study. The ri ght lung is clear. No pleural effusion or pneumothorax. No acute bony or soft tissue abnormality. IMPRESSION: Patchy pneumonia in the left lung base.
[2018-07-24] MEDS: UNASYN/NS 3 GM/100 ML 3 GM/100 ML BAG IV SCH ×2 (12:40→20:27)
--- NOTE | 2018-07-24 13:13 | Progress Note ---
Assessment and Plan Cultures: 07/20/18 Blood: No growth to date 07/20/18 Stool WBC : negative 07/20/18 Crypto: negative 07/20/18 Giardia: negative 07/23/2018 Blood culture: no growth at 24 hours A/P: 42-year-old male known to ID from recent admission on 06/23/18-06/19/18 for community acquired pneumonia, HIV/AIDS, oral candidiasis and diarrhea, now with: 1. 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 Minimal response to flucanazole, hence switched to IV micafungin on 07/23/2018. CT of face and neck also shows small right soft palatine abscess - added Unasyn on 07/24/2018. HSV reactivation cannot be ruled out, hence started acyclovir 07/23/2018. 2. HIV/AIDS: Last admission in June CD4 count 11. Viral load [id number]. Remains non compliant, did not follow up in our clinic as well. Guarded prognosis. 3. Diarrhea: Resolved 4. Severe Malnutrition: currently able to tolerate liquids, consider protein supplements. 5. New Fevers: Blood cultures no growth thus far, U/A negative. -Chest Xray - There is mild residual patchy infiltrate in the left lower lobe and lingula. This has decreased by 25-50% since 06/13/18. The remainder of the lungs are clear. 6. Leukopenia: probably related to end stage HIV/AIDS. Will check CMV PCR. Plan: -start IV Unasyn 3 gm q6 hrs -continue Micafungin 100 mg IV q day -continue Acyclovir 400mg IV every 8 hours -continue Azithromycin 1200mg PO q week -Continue Magic mouthwash -Continue Bactrim DS PO every 24 hours -Continue Oral care BID with assistance from bedside nurse -CMV PCR ordered for AM -if he fails to continues to worsen, may need transfer for ENT evaluation -if oral intake remains poor, may have to consider a PEG tube D/W Dr. Shaw. Chanel Ryder MD Subjective Date of service: 07/24/18 Principal diagnosis: Candidiasis,AIDS Interval history: Had another fever. Oral lesions remain, still painful. Oral intake limited. No diarrhea. No abdominal pain. Objective - Exam Narrative Exam: Constitutional: Alert, awake, no distress. Cachexia Head, Ears, Nose: Normocephalic, atraumatic. External ears, nose normal Eyes: Conjunctivae/corneas clear. No icterus. No ptosis. Neck: Supple, no meningeal signs Oral: dentition poor, + extensive whitish plaque / thrush involving lips, tongue, and oropharynx Cardiovascular: S1, S2 normal. Respiratory: Good air entry, clear to auscultation bilaterally GI: Soft, non-tender; bowel sounds normal. No peritoneal signs Musculoskeletal: No pedal edema, no cyanosis. Skin: No rash or abscess. Hem/Lymphatic: No palpable cervical or supraclavicular nodes. No lymphangitis Psych: Mood ok. Affect flat Neurological: awake, alert - Constitutional Vitals: Vital Signs Temp Pulse Resp BP Pulse Ox 98.2 F 83 18 107/61 98 07/24/18 12:14 07/24/18 12:14 07/24/18 12:14 07/24/18 12:14 07/24/18 12:14 Temperature -Last 24 Hours Temperature 98.2 F Temperature 98.4 F Temperature 101.0 F Temperature 100.1 F - Labs CBC & Chem 7: 07/21/18 04:39 07/24/18 05:57 Labs: Abnormal lab results 07/24/18 Range/Units 05:57 Chloride 107.2 H (98-107) mmol/L Creatinine 0.7 L (0.8-1.5) mg/dL - Imaging and cardiology CT Scan - head: report reviewed, image reviewed (CT neck, palate showed small right palatine abscess)
--- NOTE | 2018-07-24 13:31 | Progress Note ---
Assessment and Plan Assessment and plan: (1) AIDS Current Visit: Yes Status: Acute Plan to address problem: Outpatient ID F/U care, Continue PCP/MAC prophylaxis, Pending HIV Genotype, ID consulted Patient is on azithromycin and bactrim Low CD4 count (2) Oral candidiasis getting worse on fluconazole - ID consulted and will change his anti fungals to micafungin - CT neck and facial bones showed small palatine abscess - suppportive care, magic mouthwash, oral care, oral suction prn (3) Volume depletion Current Visit: Yes Status: Acute Plan to address problem: IVF resuscitation, monitor uop q shift. will give him bolus as needed (4) Severe malnutrition Current Visit: Yes Status: Acute Plan to address problem: Treat candidiasis, encourage increased protein intake (5) DVT prophylaxis Current Visit: Yes Status: Acute Plan to address problem: SCD to BLE while in bed. Disposition; per ID continue inpatient care, CT if there is mass patient needs ENT evaluation for possible biopsy. Patient has been shooting fever, CXR showed left sided infiltartes and patient started on unasyn. Patient is not eating but said he is using a lot of booster. I changed his diet to full liquid diet. History Interval history: Patient was seen and evaluated this morning, patient said he is not able to eat and the trush and swelling is not getting better. Hospitalist Physical - Physical exam Narrative exam: Not in cardiopulmonary distress. The patient is emaciated. Vital signs as documented. Head exam is unremarkable. Lip swelling and oral thrush No scleral icterus . Neck is without jugular venous distension, thyromegaly, or carotid bruits. Lungs are clear to auscultation. Cardiac exam reveals regular rate and Rhythm. Abdominal exam reveals normal bowel sounds. Extremities are nonedematous and both femoral and pedal pulses are normal. 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 No focal weakness. - Constitutional Vitals: Temp Pulse Resp BP Pulse Ox 98.2 F 83 18 107/61 98 07/24/18 12:14 07/24/18 12:14 07/24/18 12:14 07/24/18 12:14 07/24/18 12:14 General appearance: Present: mild distress Results - Labs CBC & Chem 7: 07/21/18 04:39 07/24/18 05:57 Labs: Laboratory Last Values WBC 2.3 K/mm3 (4.5-11.0) L 07/21/18 04:39 RBC 3.31 M/mm3 (3.65-5.03) L 07/21/18 04:39 Hgb 9.2 gm/dl (11.8-15.2) L 07/21/18 04:39 Hct 28.4 % (35.5-45.6) L 07/21/18 04:39 MCV 86 fl (84-94) 07/21/18 04:39 MCH 28 pg (28-32) 07/21/18 04:39 MCHC 32 % (32-34) 07/21/18 04:39 RDW 15.7 % (13.2-15.2) H 07/21/18 04:39 Plt Count 182 K/mm3 (140-440) 07/21/18 04:39 Lymph % (Auto) 11.7 % (13.4-35.0) L 07/20/18 10:32 [place] % (Auto) 9.8 % (0.0-7.3) H 07/20/18 10:32 Eos % (Auto) 0.1 % (0.0-4.3) 07/20/18 10:32 Baso % (Auto) 0.2 % (0.0-1.8) 07/20/18 10:32 Lymph # 0.3 K/mm3 (1.2-5.4) L 07/20/18 10:32 [place] # 0.3 K/mm3 (0.0-0.8) 07/20/18 10:32 Eos # 0.0 K/mm3 (0.0-0.4) 07/20/18 10:32 Baso # 0.0 K/mm3 (0.0-0.1) 07/20/18 10:32 Add Manual Diff Complete 07/21/18 04:39 Total Counted 50 07/21/18 04:39 Seg Neutrophils % 78.2 % (40.0-70.0) H 07/20/18 10:32 Seg Neuts % (Manual) 88.0 % (40.0-70.0) H 07/21/18 04:39 Band Neutrophils % 4.0 % 07/21/18 04:39 Lymphocytes % (Manual) 4.0 % (13.4-35.0) L 07/21/18 04:39 Reactive Lymphs % (Man) 0 % 07/21/18 04:39 Monocytes % (Manual) 4.0 % (0.0-7.3) 07/21/18 04:39 Eosinophils % (Manual) 0 % (0.0-4.3) 07/21/18 04:39 Basophils % (Manual) 0 % (0.0-1.8) 07/21/18 04:39 Metamyelocytes % 0 % 07/21/18 04:39 Myelocytes % 0 % 07/21/18 04:39 Promyelocytes % 0 % 07/21/18 04:39 Blast Cells % 0 % 07/21/18 04:39 Nucleated RBC % Not Reportable 07/21/18 04:39 Seg Neutrophils # 2.0 K/mm3 (1.8-7.7) 07/20/18 10:32 Seg Neutrophils # Man 2.0 K/mm3 (1.8-7.7) 07/21/18 04:39 Band Neutrophils # 0.1 K/mm3 07/21/18 04:39 Lymphocytes # (Manual) 0.1 K/mm3 (1.2-5.4) L 07/21/18 04:39 Abs React Lymphs (Man) 0.0 K/mm3 07/21/18 04:39 Monocytes # (Manual) 0.1 K/mm3 (0.0-0.8) 07/21/18 04:39 Eosinophils # (Manual) 0.0 K/mm3 (0.0-0.4) 07/21/18 04:39 Basophils # (Manual) 0.0 K/mm3 (0.0-0.1) 07/21/18 04:39 Metamyelocytes # 0.0 K/mm3 07/21/18 04:39 Myelocytes # 0.0 K/mm3 07/21/18 04:39 Promyelocytes # 0.0 K/mm3 07/21/18 04:39 Blast Cells # 0.0 K/mm3 07/21/18 04:39 WBC Morphology Not Reportable 07/21/18 04:39 Hypersegmented Neuts Not Reportable 07/21/18 04:39 Hyposegmented Neuts Not Reportable 07/21/18 04:39 Hypogranular Neuts Not Reportable 07/21/18 04:39 Smudge Cells Not Reportable 07/21/18 04:39 Toxic Granulation Not Reportable 07/21/18 04:39 Toxic Vacuolation Not Reportable 07/21/18 04:39 Dohle Bodies Not Reportable 07/21/18 04:39 Pelger-Huet Anomaly Not Reportable 07/21/18 04:39 Giovanni Rods Not Reportable 07/21/18 04:39 Platelet Estimate Appears normal 07/21/18 04:39 Clumped Platelets Not Reportable 07/21/18 04:39 Plt Clumps, EDTA Not Reportable 07/21/18 04:39 Large Platelets Rare 07/21/18 04:39 Giant Platelets Not Reportable 07/21/18 04:39 Platelet Satelliting Not Reportable 07/21/18 04:39 Plt Morphology Comment Not Reportable 07/21/18 04:39 RBC Morphology Not Reportable 07/21/18 04:39 Dimorphic RBCs Not Reportable 07/21/18 04:39 Polychromasia Not Reportable 07/21/18 04:39 Hypochromasia Not Reportable 07/21/18 04:39 Poikilocytosis 2+ 07/21/18 04:39 Anisocytosis 1+ 07/21/18 04:39 Microcytosis 1+ 07/21/18 04:39 Macrocytosis Not Reportable 07/21/18 04:39 Spherocytes Not Reportable 07/21/18 04:39 Pappenheimer Bodies Not Reportable 07/21/18 04:39 Sickle Cells Not Reportable 07/21/18 04:39 Target Cells Not Reportable 07/21/18 04:39 Tear Drop Cells 1+ 07/21/18 04:39 Ovalocytes 2+ 07/21/18 04:39 Helmet Cells Few 07/21/18 04:39 [place] Bodies Not Reportable 07/21/18 04:39 [place] Rings Not Reportable 07/21/18 04:39 [place] Cells Not Reportable 07/21/18 04:39 Bite Cells Not Reportable 07/21/18 04:39 Crenated Cell Not Reportable 07/21/18 04:39 Elliptocytes 2+ 07/21/18 04:39 Acanthocytes (Spur) Not Reportable 07/21/18 04:39 Rouleaux Not Reportable 07/21/18 04:39 Hemoglobin C Crystals Not Reportable 07/21/18 04:39 Schistocytes Rare 07/21/18 04:39 Malaria parasites Not Reportable 07/21/18 04:39 Carlos A Bodies Not Reportable 07/21/18 04:39 Hem Pathologist Commnt No 07/21/18 04:39 Sodium 138 mmol/L (137-145) 07/24/18 05:57 Potassium 4.1 mmol/L (3.6-5.0) 07/24/18 05:57 Chloride 107.2 mmol/L (98-107) H 07/24/18 05:57 Carbon Dioxide 22 mmol/L (22-30) 07/24/18 05:57 Anion Gap 13 mmol/L 07/24/18 05:57 BUN 20 mg/dL (9-20) 07/24/18 05:57 Creatinine 0.7 mg/dL (0.8-1.5) L 07/24/18 05:57 Estimated GFR > 60 ml/min 07/24/18 05:57 BUN/Creatinine Ratio 29 % 07/24/18 05:57 Glucose 99 mg/dL (75-100) 07/24/18 05:57 Calcium 8.4 mg/dL (8.4-10.2) 07/24/18 05:57 Total Bilirubin 0.20 mg/dL (0.1-1.2) 07/18/18 14:31 AST 85 units/L (5-40) H 07/18/18 14:31 ALT 55 units/L (7-56) 07/18/18 14:31 Alkaline Phosphatase 141 units/L (35-129) H 07/18/18 14:31 Total Protein 7.9 g/dL (6.3-8.2) 07/18/18 14:31 Albumin 3.7 g/dL (3.9-5) L 07/18/18 14:31 Albumin/Globulin Ratio 0.9 % 07/18/18 14:31 Urine Color Yellow (Yellow) 07/20/18 19:16 Urine Turbidity Clear (Clear) 07/20/18 19:16 Urine pH 7.0 (5.0-7.0) 07/20/18 19:16 Ur Specific [place] 1.008 (1.003-1.030) 07/20/18 19:16 Urine Protein <15 mg/dl mg/dL (Negative) 07/20/18 19:16 Urine Glucose (UA) Neg mg/dL (Negative) 07/20/18 19:16 Urine Ketones Neg mg/dL (Negative) 07/20/18 19:16 Urine Blood Neg (Negative) 07/20/18 19:16 Urine Nitrite Neg (Negative) 07/20/18 19:16 Urine Bilirubin Neg (Negative) 07/20/18 19:16 Urine Urobilinogen < 2.0 mg/dL (<2.0) 07/20/18 19:16 Ur Leukocyte Esterase Neg (Negative) 07/20/18 19:16 Urine WBC (Auto) 2.0 /HPF (0.0-6.0) 07/20/18 19:16 Urine RBC (Auto) 3.0 /HPF (0.0-6.0) 07/20/18 19:16 Nutrition/Malnutrition Assess - Dietary Evaluation Nutrition/Malnutrition Findings: Nutrition Notes Start: 07/20/18 14:03 Freq: Status: Active Protocol: Document 07/22/18 11:05 (Rec: 07/22/18 12:04 [email or web address]) Co-Sign 07/22/18 11:05 Nutrition Notes Initial or Follow up Reassessment Other Pertinent Diagnosis AIDS, dysphagia, oral candidiasis, severe malnutrition Current Diet Regular diet w/Ensure Enlive [place] TID Labs/Tests Reviewed. Pertinent Medications Reviewed Height 5 ft 7 in Weight 45 kg [place] Body Weight (kg) 67.27 BMI 15.5 Weight change and time frame [facility] Subjective/Other Information Pt stated his appetite is fair and that he is eating about half of his meals and Ensures. Pt denied swallowing difficulty. Percent of energy/protein needs met: 94%/100% Burn Absent Trauma Absent #1 Nutrition Diagnosis Predicted suboptimal energy intake As Evidenced by Signs and Symptoms Pt meeting 94% of kcal needs and 100% of protein needs Diagnosis Progress(for reassessment Improved documentation) Is patient on ventilator? No Is Patient Ambulatory and/or Out of Bed No REE-([facility]-confined to bed) 1573.848 Kcal/Kg value to use for calculation 40 Approximate Energy Requirements Using 1800 kcal/Kg Calculation Used for Recommendations Kcal/kg Additional Notes PRO needs: 55-77g (1.2-1.5g/kg ) Fluid needs: 1 mL/kcal Nutrition Intervention Add Supplement/Snack (indicate name/kcal Ensure Enlive TID (strawberry) /protein ) Provides kCal: 1,050 Provides Protein (gm) 60 Goal #1 Continue to meet at least 75% of energy and protein needs through PO and ONS intakes. Follow-Up By: 07/28/18 Additional Comments F/U: PO and ONS intake
[2018-07-25] MEDS: UNASYN/NS 3 GM/100 ML 3 GM/100 ML BAG IV SCH ×4 (01:26→17:07)
[2018-07-25] MEDS: ZOVIRAX IV SCH ×3 (05:00→22:45)
[2018-07-25] MEDS: NACL 0.9% IV SCH ×3 (05:00→22:45)
[2018-07-25] MEDS: NACL 0.9% 1000 ML 1,000 ML IV SCH ×2 (09:42→23:07)
[2018-07-25] MEDS: BACTRIM DS PO SCH (09:45)
[2018-07-25] MEDS: PROAMATINE PO SCH (09:45)
[2018-07-25] MEDS: MAGIC MOUTHWASH PO SCH ×4 (09:45→22:46)
[2018-07-25] MEDS: MYCAMINE 100 MG in NACL 0.9% 100 ML IV SCH (09:45)
[2018-07-25] MEDS: PROTONIX PO SCH (09:45)
[2018-07-25] MEDS: SODIUM CHLORIDE FLUSH SYRINGE 10 ML IV SCH ×2 (09:50→22:48)
--- NOTE | 2018-07-25 10:48 | Progress Note ---
Assessment and Plan Assessment and plan: (1) AIDS Current Visit: Yes Status: Acute Plan to address problem: Outpatient ID F/U care, Continue PCP/MAC prophylaxis, Pending HIV Genotype, ID consulted Patient is on azithromycin and bactrim Low CD4 count (2) Oral candidiasis getting worse on fluconazole - ID consulted and will change his anti fungals to micafungin - CT neck and facial bones showed small palatine abscess - suppportive care, magic mouthwash, oral care, oral suction prn (3) Volume depletion Current Visit: Yes Status: Acute Plan to address problem: IVF resuscitation, monitor uop q shift. will give him bolus as needed (4) Severe malnutrition Current Visit: Yes Status: Acute Plan to address problem: Treat candidiasis, encourage increased protein intake (5) DVT prophylaxis Current Visit: Yes Status: Acute Plan to address problem: SCD to BLE while in bed. Disposition; per ID continue inpatient care, CT if there is mass patient needs ENT evaluation for possible biopsy. Patient has been shooting fever, CXR showed left sided infiltartes and patient started on unasyn. Patient is not eating but said he is using a lot of booster. I changed his diet to full liquid diet. History Interval history: Patient was seen and evaluated this morning, patient said he is not able to eat and the oral trush and swelling is getting better. Hospitalist Physical - Physical exam Narrative exam: Not in cardiopulmonary distress. The patient is emaciated. Vital signs as documented. Head exam is unremarkable. Lip swelling and oral thrush No scleral icterus . Neck is without jugular venous distension, thyromegaly, or carotid bruits. Lungs are clear to auscultation. Cardiac exam reveals regular rate and Rhythm. Abdominal exam reveals normal bowel sounds. Extremities are nonedematous and both femoral and pedal pulses are normal. 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 No focal weakness. - Constitutional Vitals: Temp Pulse Resp BP Pulse Ox 98.1 F 88 20 95/55 95 07/25/18 05:29 07/25/18 05:29 07/25/18 05:29 07/25/18 09:47 07/25/18 05:29 General appearance: Present: mild distress Results - Labs CBC & Chem 7: 07/21/18 04:39 07/24/18 05:57 Labs: Laboratory Last Values WBC 2.3 K/mm3 (4.5-11.0) L 07/21/18 04:39 RBC 3.31 M/mm3 (3.65-5.03) L 07/21/18 04:39 Hgb 9.2 gm/dl (11.8-15.2) L 07/21/18 04:39 Hct 28.4 % (35.5-45.6) L 07/21/18 04:39 MCV 86 fl (84-94) 07/21/18 04:39 MCH 28 pg (28-32) 07/21/18 04:39 MCHC 32 % (32-34) 07/21/18 04:39 RDW 15.7 % (13.2-15.2) H 07/21/18 04:39 Plt Count 182 K/mm3 (140-440) 07/21/18 04:39 Lymph % (Auto) 11.7 % (13.4-35.0) L 07/20/18 10:32 [place] % (Auto) 9.8 % (0.0-7.3) H 07/20/18 10:32 Eos % (Auto) 0.1 % (0.0-4.3) 07/20/18 10:32 Baso % (Auto) 0.2 % (0.0-1.8) 07/20/18 10:32 Lymph # 0.3 K/mm3 (1.2-5.4) L 07/20/18 10:32 [place] # 0.3 K/mm3 (0.0-0.8) 07/20/18 10:32 Eos # 0.0 K/mm3 (0.0-0.4) 07/20/18 10:32 Baso # 0.0 K/mm3 (0.0-0.1) 07/20/18 10:32 Add Manual Diff Complete 07/21/18 04:39 Total Counted 50 07/21/18 04:39 Seg Neutrophils % 78.2 % (40.0-70.0) H 07/20/18 10:32 Seg Neuts % (Manual) 88.0 % (40.0-70.0) H 07/21/18 04:39 Band Neutrophils % 4.0 % 07/21/18 04:39 Lymphocytes % (Manual) 4.0 % (13.4-35.0) L 07/21/18 04:39 Reactive Lymphs % (Man) 0 % 07/21/18 04:39 Monocytes % (Manual) 4.0 % (0.0-7.3) 07/21/18 04:39 Eosinophils % (Manual) 0 % (0.0-4.3) 07/21/18 04:39 Basophils % (Manual) 0 % (0.0-1.8) 07/21/18 04:39 Metamyelocytes % 0 % 07/21/18 04:39 Myelocytes % 0 % 07/21/18 04:39 Promyelocytes % 0 % 07/21/18 04:39 Blast Cells % 0 % 07/21/18 04:39 Nucleated RBC % Not Reportable 07/21/18 04:39 Seg Neutrophils # 2.0 K/mm3 (1.8-7.7) 07/20/18 10:32 Seg Neutrophils # Man 2.0 K/mm3 (1.8-7.7) 07/21/18 04:39 Band Neutrophils # 0.1 K/mm3 07/21/18 04:39 Lymphocytes # (Manual) 0.1 K/mm3 (1.2-5.4) L 07/21/18 04:39 Abs React Lymphs (Man) 0.0 K/mm3 07/21/18 04:39 Monocytes # (Manual) 0.1 K/mm3 (0.0-0.8) 07/21/18 04:39 Eosinophils # (Manual) 0.0 K/mm3 (0.0-0.4) 07/21/18 04:39 Basophils # (Manual) 0.0 K/mm3 (0.0-0.1) 07/21/18 04:39 Metamyelocytes # 0.0 K/mm3 07/21/18 04:39 Myelocytes # 0.0 K/mm3 07/21/18 04:39 Promyelocytes # 0.0 K/mm3 07/21/18 04:39 Blast Cells # 0.0 K/mm3 07/21/18 04:39 WBC Morphology Not Reportable 07/21/18 04:39 Hypersegmented Neuts Not Reportable 07/21/18 04:39 Hyposegmented Neuts Not Reportable 07/21/18 04:39 Hypogranular Neuts Not Reportable 07/21/18 04:39 Smudge Cells Not Reportable 07/21/18 04:39 Toxic Granulation Not Reportable 07/21/18 04:39 Toxic Vacuolation Not Reportable 07/21/18 04:39 Dohle Bodies Not Reportable 07/21/18 04:39 Pelger-Huet Anomaly Not Reportable 07/21/18 04:39 Giovanni Rods Not Reportable 07/21/18 04:39 Platelet Estimate Appears normal 07/21/18 04:39 Clumped Platelets Not Reportable 07/21/18 04:39 Plt Clumps, EDTA Not Reportable 07/21/18 04:39 Large Platelets Rare 07/21/18 04:39 Giant Platelets Not Reportable 07/21/18 04:39 Platelet Satelliting Not Reportable 07/21/18 04:39 Plt Morphology Comment Not Reportable 07/21/18 04:39 RBC Morphology Not Reportable 07/21/18 04:39 Dimorphic RBCs Not Reportable 07/21/18 04:39 Polychromasia Not Reportable 07/21/18 04:39 Hypochromasia Not Reportable 07/21/18 04:39 Poikilocytosis 2+ 07/21/18 04:39 Anisocytosis 1+ 07/21/18 04:39 Microcytosis 1+ 07/21/18 04:39 Macrocytosis Not Reportable 07/21/18 04:39 Spherocytes Not Reportable 07/21/18 04:39 Pappenheimer Bodies Not Reportable 07/21/18 04:39 Sickle Cells Not Reportable 07/21/18 04:39 Target Cells Not Reportable 07/21/18 04:39 Tear Drop Cells 1+ 07/21/18 04:39 Ovalocytes 2+ 07/21/18 04:39 Helmet Cells Few 07/21/18 04:39 [place] Bodies Not Reportable 07/21/18 04:39 [place] Rings Not Reportable 07/21/18 04:39 [place] Cells Not Reportable 07/21/18 04:39 Bite Cells Not Reportable 07/21/18 04:39 Crenated Cell Not Reportable 07/21/18 04:39 Elliptocytes 2+ 07/21/18 04:39 Acanthocytes (Spur) Not Reportable 07/21/18 04:39 Rouleaux Not Reportable 07/21/18 04:39 Hemoglobin C Crystals Not Reportable 07/21/18 04:39 Schistocytes Rare 07/21/18 04:39 Malaria parasites Not Reportable 07/21/18 04:39 Carlos A Bodies Not Reportable 07/21/18 04:39 Hem Pathologist Commnt No 07/21/18 04:39 Sodium 138 mmol/L (137-145) 07/24/18 05:57 Potassium 4.1 mmol/L (3.6-5.0) 07/24/18 05:57 Chloride 107.2 mmol/L (98-107) H 07/24/18 05:57 Carbon Dioxide 22 mmol/L (22-30) 07/24/18 05:57 Anion Gap 13 mmol/L 07/24/18 05:57 BUN 20 mg/dL (9-20) 07/24/18 05:57 Creatinine 0.7 mg/dL (0.8-1.5) L 07/24/18 05:57 Estimated GFR > 60 ml/min 07/24/18 05:57 BUN/Creatinine Ratio 29 % 07/24/18 05:57 Glucose 99 mg/dL (75-100) 07/24/18 05:57 Calcium 8.4 mg/dL (8.4-10.2) 07/24/18 05:57 Total Bilirubin 0.20 mg/dL (0.1-1.2) 07/18/18 14:31 AST 85 units/L (5-40) H 07/18/18 14:31 ALT 55 units/L (7-56) 07/18/18 14:31 Alkaline Phosphatase 141 units/L (35-129) H 07/18/18 14:31 Total Protein 7.9 g/dL (6.3-8.2) 07/18/18 14:31 Albumin 3.7 g/dL (3.9-5) L 07/18/18 14:31 Albumin/Globulin Ratio 0.9 % 07/18/18 14:31 Urine Color Yellow (Yellow) 07/20/18 19:16 Urine Turbidity Clear (Clear) 07/20/18 19:16 Urine pH 7.0 (5.0-7.0) 07/20/18 19:16 Ur Specific [place] 1.008 (1.003-1.030) 07/20/18 19:16 Urine Protein <15 mg/dl mg/dL (Negative) 07/20/18 19:16 Urine Glucose (UA) Neg mg/dL (Negative) 07/20/18 19:16 Urine Ketones Neg mg/dL (Negative) 07/20/18 19:16 Urine Blood Neg (Negative) 07/20/18 19:16 Urine Nitrite Neg (Negative) 07/20/18 19:16 Urine Bilirubin Neg (Negative) 07/20/18 19:16 Urine Urobilinogen < 2.0 mg/dL (<2.0) 07/20/18 19:16 Ur Leukocyte Esterase Neg (Negative) 07/20/18 19:16 Urine WBC (Auto) 2.0 /HPF (0.0-6.0) 07/20/18 19:16 Urine RBC (Auto) 3.0 /HPF (0.0-6.0) 07/20/18 19:16 Nutrition/Malnutrition Assess - Dietary Evaluation Nutrition/Malnutrition Findings: Nutrition Notes Start: 07/20/18 14:03 Freq: Status: Active Protocol: Document 07/22/18 11:05 (Rec: 07/22/18 12:04 [email or web address]) Co-Sign 07/22/18 11:05 Nutrition Notes Initial or Follow up Reassessment Other Pertinent Diagnosis AIDS, dysphagia, oral candidiasis, severe malnutrition Current Diet Regular diet w/Ensure Enlive [place] TID Labs/Tests Reviewed. Pertinent Medications Reviewed Height 5 ft 7 in Weight 45 kg [place] Body Weight (kg) 67.27 BMI 15.5 Weight change and time frame [facility] Subjective/Other Information Pt stated his appetite is fair and that he is eating about half of his meals and Ensures. Pt denied swallowing difficulty. Percent of energy/protein needs met: 94%/100% Burn Absent Trauma Absent #1 Nutrition Diagnosis Predicted suboptimal energy intake As Evidenced by Signs and Symptoms Pt meeting 94% of kcal needs and 100% of protein needs Diagnosis Progress(for reassessment Improved documentation) Is patient on ventilator? No Is Patient Ambulatory and/or Out of Bed No REE-([facility]-confined to bed) 1573.848 Kcal/Kg value to use for calculation 40 Approximate Energy Requirements Using 1800 kcal/Kg Calculation Used for Recommendations Kcal/kg Additional Notes PRO needs: 55-77g (1.2-1.5g/kg ) Fluid needs: 1 mL/kcal Nutrition Intervention Add Supplement/Snack (indicate name/kcal Ensure Enlive TID (strawberry) /protein ) Provides kCal: 1,050 Provides Protein (gm) 60 Goal #1 Continue to meet at least 75% of energy and protein needs through PO and ONS intakes. Follow-Up By: 07/28/18 Additional Comments F/U: PO and ONS intake
[2018-07-26] MEDS: UNASYN/NS 3 GM/100 ML 3 GM/100 ML BAG IV SCH ×5 (00:03→23:47)
[2018-07-26] MEDS: TYLENOL PO PRN (00:03)
[2018-07-26] MEDS: ZOVIRAX IV SCH ×3 (06:23→22:29)
[2018-07-26] MEDS: NACL 0.9% IV SCH ×3 (06:23→22:29)
--- NOTE | 2018-07-26 09:55 | Progress Note ---
Assessment and Plan Cultures: 07/20/18 Blood: No growth to date 07/20/18 Stool WBC : negative 07/20/18 Crypto: negative 07/20/18 Giardia: negative 07/23/2018 Blood culture: no growth at 24 hours A/P: 42-year-old male known to ID from recent admission on 06/23/18-06/19/18 for community acquired pneumonia, HIV/AIDS, oral candidiasis and diarrhea, now with: 1. 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 Minimal res ponse to flucanazole, hence switched to IV micafungin on 07/23/2018. CT of face and neck also shows small right soft palatine abscess - added Unasyn on 07/24/2018. HSV reactivation cannot be ruled out, hence started acyclovir 07/23/2018. 2. HIV/AIDS: Last admission in June CD4 count 11. Viral load [id number]. Remains non compliant, did not follow up in our clinic as well. Guarded prognosis. 3. Diarrhea: Resolved 4. Severe Malnutrition: currently able to tolerate liquids, consider protein supplements. 5. New Fevers: Blood cultures no growth thus far, U/A negative. -Chest Xray - There is mild residual patchy infiltrate in the left lower lobe and lingula. This has decreased by 25-50% since 06/13/18. The remainder of the lungs are clear. 6. Leukopenia: probably related to end stage HIV/AIDS. Will check CMV PCR. Plan: -start IV Unasyn 3 gm q6 hrs -continue Micafungin 100 mg IV q day -continue Acyclovir 400mg IV every 8 hours -continue Azithromycin 1200mg PO q week -Continue Magic mouthwash -Continue Bactrim DS PO every 24 hours -Continue Oral care BID with assistance from bedside nurse -CMV PCR -pending [facility] M: [phone] O:[phone] Subjective Date of service: 07/26/18 Principal diagnosis: Candidiasis,AIDS Interval history: Patient seen and examined. Improved oropharyngeal lesions on mouth, tongue and inner jaws. Able to eat and drink without pain. Nurses notes, labs and reports reviewed, discussed with patient, verbalized understanding. Objective - Exam Narrative Exam: Constitutional: Alert, awake, no distress. Cachexia Head, Ears, Nose: Normocephalic, atraumatic. External ears, nose normal Eyes: Conjunctivae/corneas clear. No icterus. No ptosis. Neck: Supple, no meningeal signs Oral: dentition poor, + extensive whitish plaque / thrush involving lips, tongue, and oropharynx - improved Cardiovascular: S1, S2 normal. Respiratory: Good air entry, clear to auscultation bilaterally GI: Soft, non-tender; bowel sounds normal. No peritoneal signs Musculoskeletal: No pedal edema, no cyanosis. Skin: No rash or abscess. Hem/Lymphatic: No palpable cervical or supraclavicular nodes. No lymphangitis Psych: Mood ok. Affect flat Neurological: awake, alert - Constitutional Vitals: Vital Signs Temp Pulse Resp BP Pulse Ox 97.7 F 80 18 87/54 97 07/26/18 06:14 07/26/18 06:14 07/26/18 06:14 07/26/18 06:14 07/26/18 06:14 Temperature -Last 24 Hours Temperature 97.7 F Temperature 98.6 F Temperature 98.7 F Temperature 97.9 F Temperature 98.0 F - Labs CBC & Chem 7: 07/21/18 04:39 07/24/18 05:57 Labs: Abnormal lab results 07/25/18 Range/Units 22:00 POC Glucose 136 H (70-105)
[2018-07-26] MEDS: BACTRIM DS PO SCH (11:09)
[2018-07-26] MEDS: MYCAMINE 100 MG in NACL 0.9% 100 ML IV SCH (11:10)
[2018-07-26] MEDS: MAGIC MOUTHWASH PO SCH ×4 (11:10→22:31)
[2018-07-26] MEDS: PROAMATINE PO SCH (11:11)
[2018-07-26] MEDS: PROTONIX PO SCH (11:11)
[2018-07-26] MEDS: SODIUM CHLORIDE FLUSH SYRINGE 10 ML IV SCH ×2 (11:12→22:29)
--- NOTE | 2018-07-26 12:05 | Progress Note ---
Assessment and Plan Assessment and plan: (1) AIDS Current Visit: Yes Status: Acute Plan to address problem: Outpatient ID F/U care, Continue PCP/MAC prophylaxis, Pending HIV Genotype, ID consulted Patient is on azithromycin and bactrim Low CD4 count (2) Oral candidiasis getting worse on fluconazole - ID consulted and will change his anti fungals to micafungin - CT neck and facial bones showed small palatine abscess - There is marked improvement in the oral trush. - suppportive care, magic mouthwash, oral care, oral suction prn (3) Volume depletion Current Visit: Yes Status: Acute Plan to address problem: IVF resuscitation, monitor uop q shift. will give him bolus as needed (4) Severe malnutrition Current Visit: Yes Status: Acute Plan to address problem: Treat candidiasis, encourage increased protein intake (5) DVT prophylaxis Current Visit: Yes Status: Acute Plan to address problem: SCD to BLE while in bed. Disposition; per IDrecommendation. History Interval history: Patient was seen and evaluated this morning, patient looks better today, he was eating breakfast by the time I saw him. NO fever, no pain in the mouth. Hospitalist Physical - Physical exam Narrative exam: Not in cardiopulmonary distress. The patient is emaciated. Vital signs as documented. Lip swelling and trush resolving. No scleral icterus . Neck is without jugular venous distension, thyromegaly, or carotid bruits. Lungs are clear to auscultation. Cardiac exam reveals regular rate and Rhythm. Abdominal exam reveals normal bowel sounds. Extremities are nonedematous and both femoral and pedal pulses are normal. 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 No focal weakness. - Constitutional Vitals: Temp Pulse Resp BP Pulse Ox 97.7 F 80 18 87/54 97 07/26/18 06:14 07/26/18 06:14 07/26/18 06:14 07/26/18 06:14 07/26/18 06:14 General appearance: Present: mild distress Results - Labs CBC & Chem 7: 07/21/18 04:39 07/24/18 05:57 Labs: Laboratory Last Values WBC 2.3 K/mm3 (4.5-11.0) L 07/21/18 04:39 RBC 3.31 M/mm3 (3.65-5.03) L 07/21/18 04:39 Hgb 9.2 gm/dl (11.8-15.2) L 07/21/18 04:39 Hct 28.4 % (35.5-45.6) L 07/21/18 04:39 MCV 86 fl (84-94) 07/21/18 04:39 MCH 28 pg (28-32) 07/21/18 04:39 MCHC 32 % (32-34) 07/21/18 04:39 RDW 15.7 % (13.2-15.2) H 07/21/18 04:39 Plt Count 182 K/mm3 (140-440) 07/21/18 04:39 Lymph % (Auto) 11.7 % (13.4-35.0) L 07/20/18 10:32 [place] % (Auto) 9.8 % (0.0-7.3) H 07/20/18 10:32 Eos % (Auto) 0.1 % (0.0-4.3) 07/20/18 10:32 Baso % (Auto) 0.2 % (0.0-1.8) 07/20/18 10:32 Lymph # 0.3 K/mm3 (1.2-5.4) L 07/20/18 10:32 [place] # 0.3 K/mm3 (0.0-0.8) 07/20/18 10:32 Eos # 0.0 K/mm3 (0.0-0.4) 07/20/18 10:32 Baso # 0.0 K/mm3 (0.0-0.1) 07/20/18 10:32 Add Manual Diff Complete 07/21/18 04:39 Total Counted 50 07/21/18 04:39 Seg Neutrophils % 78.2 % (40.0-70.0) H 07/20/18 10:32 Seg Neuts % (Manual) 88.0 % (40.0-70.0) H 07/21/18 04:39 Band Neutrophils % 4.0 % 07/21/18 04:39 Lymphocytes % (Manual) 4.0 % (13.4-35.0) L 07/21/18 04:39 Reactive Lymphs % (Man) 0 % 07/21/18 04:39 Monocytes % (Manual) 4.0 % (0.0-7.3) 07/21/18 04:39 Eosinophils % (Manual) 0 % (0.0-4.3) 07/21/18 04:39 Basophils % (Manual) 0 % (0.0-1.8) 07/21/18 04:39 Metamyelocytes % 0 % 07/21/18 04:39 Myelocytes % 0 % 07/21/18 04:39 Promyelocytes % 0 % 07/21/18 04:39 Blast Cells % 0 % 07/21/18 04:39 Nucleated RBC % Not Reportable 07/21/18 04:39 Seg Neutrophils # 2.0 K/mm3 (1.8-7.7) 07/20/18 10:32 Seg Neutrophils # Man 2.0 K/mm3 (1.8-7.7) 07/21/18 04:39 Band Neutrophils # 0.1 K/mm3 07/21/18 04:39 Lymphocytes # (Manual) 0.1 K/mm3 (1.2-5.4) L 07/21/18 04:39 Abs React Lymphs (Man) 0.0 K/mm3 07/21/18 04:39 Monocytes # (Manual) 0.1 K/mm3 (0.0-0.8) 07/21/18 04:39 Eosinophils # (Manual) 0.0 K/mm3 (0.0-0.4) 07/21/18 04:39 Basophils # (Manual) 0.0 K/mm3 (0.0-0.1) 07/21/18 04:39 Metamyelocytes # 0.0 K/mm3 07/21/18 04:39 Myelocytes # 0.0 K/mm3 07/21/18 04:39 Promyelocytes # 0.0 K/mm3 07/21/18 04:39 Blast Cells # 0.0 K/mm3 07/21/18 04:39 WBC Morphology Not Reportable 07/21/18 04:39 Hypersegmented Neuts Not Reportable 07/21/18 04:39 Hyposegmented Neuts Not Reportable 07/21/18 04:39 Hypogranular Neuts Not Reportable 07/21/18 04:39 Smudge Cells Not Reportable 07/21/18 04:39 Toxic Granulation Not Reportable 07/21/18 04:39 Toxic Vacuolation Not Reportable 07/21/18 04:39 Dohle Bodies Not Reportable 07/21/18 04:39 Pelger-Huet Anomaly Not Reportable 07/21/18 04:39 Giovanni Rods Not Reportable 07/21/18 04:39 Platelet Estimate Appears normal 07/21/18 04:39 Clumped Platelets Not Reportable 07/21/18 04:39 Plt Clumps, EDTA Not Reportable 07/21/18 04:39 Large Platelets Rare 07/21/18 04:39 Giant Platelets Not Reportable 07/21/18 04:39 Platelet Satelliting Not Reportable 07/21/18 04:39 Plt Morphology Comment Not Reportable 07/21/18 04:39 RBC Morphology Not Reportable 07/21/18 04:39 Dimorphic RBCs Not Reportable 07/21/18 04:39 Polychromasia Not Reportable 07/21/18 04:39 Hypochromasia Not Reportable 07/21/18 04:39 Poikilocytosis 2+ 07/21/18 04:39 Anisocytosis 1+ 07/21/18 04:39 Microcytosis 1+ 07/21/18 04:39 Macrocytosis Not Reportable 07/21/18 04:39 Spherocytes Not Reportable 07/21/18 04:39 Pappenheimer Bodies Not Reportable 07/21/18 04:39 Sickle Cells Not Reportable 07/21/18 04:39 Target Cells Not Reportable 07/21/18 04:39 Tear Drop Cells 1+ 07/21/18 04:39 Ovalocytes 2+ 07/21/18 04:39 Helmet Cells Few 07/21/18 04:39 [place] Bodies Not Reportable 07/21/18 04:39 [place] Rings Not Reportable 07/21/18 04:39 [place] Cells Not Reportable 07/21/18 04:39 Bite Cells Not Reportable 07/21/18 04:39 Crenated Cell Not Reportable 07/21/18 04:39 Elliptocytes 2+ 07/21/18 04:39 Acanthocytes (Spur) Not Reportable 07/21/18 04:39 Rouleaux Not Reportable 07/21/18 04:39 Hemoglobin C Crystals Not Reportable 07/21/18 04:39 Schistocytes Rare 07/21/18 04:39 Malaria parasites Not Reportable 07/21/18 04:39 Carlos A Bodies Not Reportable 07/21/18 04:39 Hem Pathologist Commnt No 07/21/18 04:39 Sodium 138 mmol/L (137-145) 07/24/18 05:57 Potassium 4.1 mmol/L (3.6-5.0) 07/24/18 05:57 Chloride 107.2 mmol/L (98-107) H 07/24/18 05:57 Carbon Dioxide 22 mmol/L (22-30) 07/24/18 05:57 Anion Gap 13 mmol/L 07/24/18 05:57 BUN 20 mg/dL (9-20) 07/24/18 05:57 Creatinine 0.7 mg/dL (0.8-1.5) L 07/24/18 05:57 Estimated GFR > 60 ml/min 07/24/18 05:57 BUN/Creatinine Ratio 29 % 07/24/18 05:57 Glucose 99 mg/dL (75-100) 07/24/18 05:57 POC Glucose 136 (70-105) H 07/25/18 22:00 Calcium 8.4 mg/dL (8.4-10.2) 07/24/18 05:57 Total Bilirubin 0.20 mg/dL (0.1-1.2) 07/18/18 14:31 AST 85 units/L (5-40) H 07/18/18 14:31 ALT 55 units/L (7-56) 07/18/18 14:31 Alkaline Phosphatase 141 units/L (35-129) H 07/18/18 14:31 Total Protein 7.9 g/dL (6.3-8.2) 07/18/18 14:31 Albumin 3.7 g/dL (3.9-5) L 07/18/18 14:31 Albumin/Globulin Ratio 0.9 % 07/18/18 14:31 Urine Color Yellow (Yellow) 07/20/18 19:16 Urine Turbidity Clear (Clear) 07/20/18 19:16 Urine pH 7.0 (5.0-7.0) 07/20/18 19:16 Ur Specific [place] 1.008 (1.003-1.030) 07/20/18 19:16 Urine Protein <15 mg/dl mg/dL (Negative) 07/20/18 19:16 Urine Glucose (UA) Neg mg/dL (Negative) 07/20/18 19:16 Urine Ketones Neg mg/dL (Negative) 07/20/18 19:16 Urine Blood Neg (Negative) 07/20/18 19:16 Urine Nitrite Neg (Negative) 07/20/18 19:16 Urine Bilirubin Neg (Negative) 07/20/18 19:16 Urine Urobilinogen < 2.0 mg/dL (<2.0) 07/20/18 19:16 Ur Leukocyte Esterase Neg (Negative) 07/20/18 19:16 Urine WBC (Auto) 2.0 /HPF (0.0-6.0) 07/20/18 19:16 Urine RBC (Auto) 3.0 /HPF (0.0-6.0) 07/20/18 19:16 Nutrition/Malnutrition Assess - Dietary Evaluation Nutrition/Malnutrition Findings: Nutrition Notes Start: 07/20/18 14:03 Freq: Status: Active Protocol: Document 07/22/18 11:05 (Rec: 07/22/18 12:04 [email or web address]) Co-Sign 07/22/18 11:05 Nutrition Notes Initial or Follow up Reassessment Other Pertinent Diagnosis AIDS, dysphagia, oral candidiasis, severe malnutrition Current Diet Regular diet w/Ensure Enlive [place] TID Labs/Tests Reviewed. Pertinent Medications Reviewed Height 5 ft 7 in Weight 45 kg [place] Body Weight (kg) 67.27 BMI 15.5 Weight change and time frame [facility] Subjective/Other Information Pt stated his appetite is fair and that he is eating about half of his meals and Ensures. Pt denied swallowing difficulty. Percent of energy/protein needs met: 94%/100% Burn Absent Trauma Absent #1 Nutrition Diagnosis Predicted suboptimal energy intake As Evidenced by Signs and Symptoms Pt meeting 94% of kcal needs and 100% of protein needs Diagnosis Progress(for reassessment Improved documentation) Is patient on ventilator? No Is Patient Ambulatory and/or Out of Bed No REE-([facility]-confined to bed) 1573.848 Kcal/Kg value to use for calculation 40 Approximate Energy Requirements Using 1800 kcal/Kg Calculation Used for Recommendations Kcal/kg Additional Notes PRO needs: 55-77g (1.2-1.5g/kg ) Fluid needs: 1 mL/kcal Nutrition Intervention Add Supplement/Snack (indicate name/kcal Ensure Enlive TID (strawberry) /protein ) Provides kCal: 1,050 Provides Protein (gm) 60 Goal #1 Continue to meet at least 75% of energy and protein needs through PO and ONS intakes. Follow-Up By: 07/28/18 Additional Comments F/U: PO and ONS intake
[2018-07-26] MEDS: NACL 0.9% 1000 ML 1,000 ML IV SCH (13:29)
[2018-07-27] MEDS: NACL 0.9% 1000 ML 1,000 ML IV SCH ×2 (02:53→17:08)
[2018-07-27] MEDS: NACL 0.9% IV SCH ×3 (05:23→22:46)
[2018-07-27] MEDS: ZOVIRAX IV SCH ×3 (05:23→22:46)
[2018-07-27] MEDS: UNASYN/NS 3 GM/100 ML 3 GM/100 ML BAG IV SCH ×3 (05:24→17:09)
[2018-07-27] MEDS: MYCAMINE 100 MG in NACL 0.9% 100 ML IV SCH (09:27)
[2018-07-27] MEDS: PROTONIX PO SCH (09:27)
[2018-07-27] MEDS: PROAMATINE PO SCH (09:27)
[2018-07-27] MEDS: MAGIC MOUTHWASH PO SCH ×4 (09:28→22:46)
[2018-07-27] MEDS: SODIUM CHLORIDE FLUSH SYRINGE 10 ML IV SCH ×2 (09:28→22:47)
[2018-07-27] MEDS: BACTRIM DS PO SCH (09:28)
[2018-07-27] MEDS: ZITHROMAX PO SCH (09:29)
--- NOTE | 2018-07-27 09:50 | Progress Note ---
Assessment and Plan Cultures: 07/20/18 Blood: No growth to date 07/20/18 Stool WBC : negative 07/20/18 Crypto: negative 07/20/18 Giardia: negative 07/23/2018 Blood culture: no growth at 24 hours A/P: 42-year-old male known to ID from recent admission on 06/23/18-06/19/18 for community acquired pneumonia, HIV/AIDS, oral candidiasis and diarrhea, now with: 1. 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 Minimal res ponse to flucanazole, hence switched to IV micafungin on 07/23/2018. CT of face and neck also shows small right soft palatine abscess - added Unasyn on 07/24/2018. HSV reactivation cannot be ruled out, hence started acyclovir 07/23/2018- good response to Micafungin, Acyclovir and Unasyn. 2. HIV/AIDS: Last admission in June CD4 count 11. Viral load [id number]. Remains non compliant, did not follow up in our clinic as well. Guarded prognosis. 3. Diarrhea: Resolved 4. Severe Malnutrition: currently able to tolerate liquids, consider protein supplements. 5. New Fevers: Blood cultures no growth thus far, U/A negative. -Chest Xray - There is mild residual patchy infiltrate in the left lower lobe and lingula. This has decreased by 25-50% since 06/13/18. The remainder of the lungs are clear. 6. Leukopenia: probably related to end stage HIV/AIDS. Will check CMV PCR. Plan: -continue IV Unasyn 3 gm q6 hrs -continue Micafungin 100 mg IV q day -continue Acyclovir 400mg IV every 8 hours -continue Azithromycin 1200mg PO q week -Continue Magic mouthwash -Continue Bactrim DS PO every 24 hours -Continue Oral care BID with assistance from bedside nurse -CMV PCR -pending - upon discharge will do 3 weeks of micafungin 100mg IV q day ending 08-17-18 - PICC line ordered -Order placed with case management -f/u ID clinic 08-17-18 [facility] M: [phone] O:[phone] Subjective Date of service: 07/27/18 Principal diagnosis: Candidiasis,AIDS Interval history: Patient seen and examined. Improved oropharyngeal lesions on mouth, tongue and inner jaws. Able to eat and drink without pain. Nurses notes, labs and reports reviewed, discussed with patient, verbalized understanding. Objective - Exam Narrative Exam: Constitutional: Alert, awake, agitated. Cachexia Head, Ears, Nose: Normocephalic, atraumatic. External ears, nose normal Eyes: Conjunctivae/corneas clear. No icterus. No ptosis. Neck: Supple, no meningeal signs Oral: dentition poor, + extensive whitish plaque / thrush involving lips, tongue, and oropharynx - improved Cardiovascular: S1, S2 normal. Respiratory: Good air entry, clear to auscultation bilaterally GI: Soft, non-tender; bowel sounds normal. No peritoneal signs Musculoskeletal: No pedal edema, no cyanosis. Skin: No rash or abscess. Hem/Lymphatic: No palpable cervical or supraclavicular nodes. No lymphangitis Psych: agitated Neurological: awake, alert - Constitutional Vitals: Vital Signs Temp Pulse Resp BP Pulse Ox 98.0 F 102 H 16 92/58 98 07/27/18 05:48 07/27/18 05:50 07/27/18 05:48 07/27/18 05:48 07/27/18 05:50 Temperature -Last 24 Hours Temperature 98.0 F Temperature 99.1 F Temperature 98.7 F Temperature 98.3 F - Labs CBC & Chem 7: 07/21/18 04:39 07/24/18 05:57
--- NOTE | 2018-07-27 14:09 | Progress Note ---
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 Pt stats that he has experienced weakness and difficulty swallowing over the past 1 week. EMS notified and upon arrival the patient was found to be in distress. Pt transported to [facility] for further care and evaluation. Pt seen and evaluated in ED and found to have AIDS, Dysphagia secondary to Candidia Esophagitis. Pt denies fever, chills, CP, Palpitations, NVD, Trauma, skin rash, hemoptysis, productive cough, medication noncompliance, or recent ill contacts. He was recently discharged from the hospital following prolonged stay and was non complaint with follow up appt. Oral candidiasis getting worse on fluconazole - ID consulted and will change his anti fungals to micafungin - CT neck and facial bones showed small palatine abscess - Unasyn added and also Acylovir started - There is marked improvement in the oral trush. - suppportive care, magic mouthwash, oral care, oral suction prn AIDS -Outpatient ID F/U care, Continue PCP/MAC prophylaxis, Pending HIV Genotype, -Patient is on azithromycin and bactrim -Low CD4 count Compliance stressed Diarrhea: Resolved Dehyration: Continue to rehydrate Severe Malnutrition: Nutrition consult New Fevers: Blood cultures no growth thus far, U/A negative. -Chest Xray - There is mild residual patchy infiltrate in the left lower lobe and lingula. This has decreased by 25-50% since 06/13/18. The remainder of the lungs are clear. Leukopenia: probably related to end stage HIV/AIDS. Will check CMV PCR. History Interval history: Patient is seen today for: SEVERE ORAL CANDIDASIS Seen and examined at bedside; 24hour events reviewed; nursing staff ; no adverse overnight events reported to me; Denies any chest pain, nausea, vomiting, diarrhea No fever noted blood pressure controlled Hospitalist Physical - Physical exam Narrative exam: VITAL SIGNS: Reviewed. GENERAL: The patient appeared Chronically ill, emaciated, anorexic Vital signs as documented. HEAD: No signs of head trauma. EYES: Pupils are equal. Extraocular motions intact. EARS: Hearing grossly intact. MOUTH: severe oral thrush. NECK: No adenopathy, no JVD. CHEST: Chest with clear breath sounds bilaterally. No wheezes, rales, or rhonchi. CARDIAC: Regular rate and rhythm. S1 and S2, without murmurs, gallops, or rubs. VASCULAR: No Edema. Peripheral pulses normal and equal in all extremities. ABDOMEN: Soft, without detectable tenderness. No sign of distention. No rebound or guarding, and no masses palpated. Bowel Sounds normal. MUSCULOSKELETAL: Good range of motion of all major joints. Extremities without clubbing, cyanosis or edema. NEUROLOGIC EXAM: Alert and oriented x 3. No focal sensory or strength deficits. Speech normal. Follows commands. PSYCHIATRIC: Mood normal. SKIN: No rash or lesions. - Constitutional Vitals: Temp Pulse Resp BP Pulse Ox 98.3 F 89 20 96/68 98 07/27/18 11:52 07/27/18 11:52 07/27/18 11:52 07/27/18 11:52 07/27/18 11:52 General appearance: Present: mild distress Results - Labs CBC & Chem 7: 07/21/18 04:39 07/24/18 05:57 Labs: Laboratory Last Values WBC 2.3 K/mm3 (4.5-11.0) L 07/21/18 04:39 RBC 3.31 M/mm3 (3.65-5.03) L 07/21/18 04:39 Hgb 9.2 gm/dl (11.8-15.2) L 07/21/18 04:39 Hct 28.4 % (35.5-45.6) L 07/21/18 04:39 MCV 86 fl (84-94) 07/21/18 04:39 MCH 28 pg (28-32) 07/21/18 04:39 MCHC 32 % (32-34) 07/21/18 04:39 RDW 15.7 % (13.2-15.2) H 07/21/18 04:39 Plt Count 182 K/mm3 (140-440) 07/21/18 04:39 Lymph % (Auto) 11.7 % (13.4-35.0) L 07/20/18 10:32 [place] % (Auto) 9.8 % (0.0-7.3) H 07/20/18 10:32 Eos % (Auto) 0.1 % (0.0-4.3) 07/20/18 10:32 Baso % (Auto) 0.2 % (0.0-1.8) 07/20/18 10:32 Lymph # 0.3 K/mm3 (1.2-5.4) L 07/20/18 10:32 [place] # 0.3 K/mm3 (0.0-0.8) 07/20/18 10:32 Eos # 0.0 K/mm3 (0.0-0.4) 07/20/18 10:32 Baso # 0.0 K/mm3 (0.0-0.1) 07/20/18 10:32 Add Manual Diff Complete 07/21/18 04:39 Total Counted 50 07/21/18 04:39 Seg Neutrophils % 78.2 % (40.0-70.0) H 07/20/18 10:32 Seg Neuts % (Manual) 88.0 % (40.0-70.0) H 07/21/18 04:39 Band Neutrophils % 4.0 % 07/21/18 04:39 Lymphocytes % (Manual) 4.0 % (13.4-35.0) L 07/21/18 04:39 Reactive Lymphs % (Man) 0 % 07/21/18 04:39 Monocytes % (Manual) 4.0 % (0.0-7.3) 07/21/18 04:39 Eosinophils % (Manual) 0 % (0.0-4.3) 07/21/18 04:39 Basophils % (Manual) 0 % (0.0-1.8) 07/21/18 04:39 Metamyelocytes % 0 % 07/21/18 04:39 Myelocytes % 0 % 07/21/18 04:39 Promyelocytes % 0 % 07/21/18 04:39 Blast Cells % 0 % 07/21/18 04:39 Nucleated RBC % Not Reportable 07/21/18 04:39 Seg Neutrophils # 2.0 K/mm3 (1.8-7.7) 07/20/18 10:32 Seg Neutrophils # Man 2.0 K/mm3 (1.8-7.7) 07/21/18 04:39 Band Neutrophils # 0.1 K/mm3 07/21/18 04:39 Lymphocytes # (Manual) 0.1 K/mm3 (1.2-5.4) L 07/21/18 04:39 Abs React Lymphs (Man) 0.0 K/mm3 07/21/18 04:39 Monocytes # (Manual) 0.1 K/mm3 (0.0-0.8) 07/21/18 04:39 Eosinophils # (Manual) 0.0 K/mm3 (0.0-0.4) 07/21/18 04:39 Basophils # (Manual) 0.0 K/mm3 (0.0-0.1) 07/21/18 04:39 Metamyelocytes # 0.0 K/mm3 07/21/18 04:39 Myelocytes # 0.0 K/mm3 07/21/18 04:39 Promyelocytes # 0.0 K/mm3 07/21/18 04:39 Blast Cells # 0.0 K/mm3 07/21/18 04:39 WBC Morphology Not Reportable 07/21/18 04:39 Hypersegmented Neuts Not Reportable 07/21/18 04:39 Hyposegmented Neuts Not Reportable 07/21/18 04:39 Hypogranular Neuts Not Reportable 07/21/18 04:39 Smudge Cells Not Reportable 07/21/18 04:39 Toxic Granulation Not Reportable 07/21/18 04:39 Toxic Vacuolation Not Reportable 07/21/18 04:39 Dohle Bodies Not Reportable 07/21/18 04:39 Pelger-Huet Anomaly Not Reportable 07/21/18 04:39 Giovanni Rods Not Reportable 07/21/18 04:39 Platelet Estimate Appears normal 07/21/18 04:39 Clumped Platelets Not Reportable 07/21/18 04:39 Plt Clumps, EDTA Not Reportable 07/21/18 04:39 Large Platelets Rare 07/21/18 04:39 Giant Platelets Not Reportable 07/21/18 04:39 Platelet Satelliting Not Reportable 07/21/18 04:39 Plt Morphology Comment Not Reportable 07/21/18 04:39 RBC Morphology Not Reportable 07/21/18 04:39 Dimorphic RBCs Not Reportable 07/21/18 04:39 Polychromasia Not Reportable 07/21/18 04:39 Hypochromasia Not Reportable 07/21/18 04:39 Poikilocytosis 2+ 07/21/18 04:39 Anisocytosis 1+ 07/21/18 04:39 Microcytosis 1+ 07/21/18 04:39 Macrocytosis Not Reportable 07/21/18 04:39 Spherocytes Not Reportable 07/21/18 04:39 Pappenheimer Bodies Not Reportable 07/21/18 04:39 Sickle Cells Not Reportable 07/21/18 04:39 Target Cells Not Reportable 07/21/18 04:39 Tear Drop Cells 1+ 07/21/18 04:39 Ovalocytes 2+ 07/21/18 04:39 Helmet Cells Few 07/21/18 04:39 [place] Bodies Not Reportable 07/21/18 04:39 [place] Rings Not Reportable 07/21/18 04:39 [place] Cells Not Reportable 07/21/18 04:39 Bite Cells Not Reportable 07/21/18 04:39 Crenated Cell Not Reportable 07/21/18 04:39 Elliptocytes 2+ 07/21/18 04:39 Acanthocytes (Spur) Not Reportable 07/21/18 04:39 Rouleaux Not Reportable 07/21/18 04:39 Hemoglobin C Crystals Not Reportable 07/21/18 04:39 Schistocytes Rare 07/21/18 04:39 Malaria parasites Not Reportable 07/21/18 04:39 Carlos A Bodies Not Reportable 07/21/18 04:39 Hem Pathologist Commnt No 07/21/18 04:39 Sodium 138 mmol/L (137-145) 07/24/18 05:57 Potassium 4.1 mmol/L (3.6-5.0) 07/24/18 05:57 Chloride 107.2 mmol/L (98-107) H 07/24/18 05:57 Carbon Dioxide 22 mmol/L (22-30) 07/24/18 05:57 Anion Gap 13 mmol/L 07/24/18 05:57 BUN 20 mg/dL (9-20) 07/24/18 05:57 Creatinine 0.7 mg/dL (0.8-1.5) L 07/24/18 05:57 Estimated GFR > 60 ml/min 07/24/18 05:57 BUN/Creatinine Ratio 29 % 07/24/18 05:57 Glucose 99 mg/dL (75-100) 07/24/18 05:57 POC Glucose 136 (70-105) H 07/25/18 22:00 Calcium 8.4 mg/dL (8.4-10.2) 07/24/18 05:57 Total Bilirubin 0.20 mg/dL (0.1-1.2) 07/18/18 14:31 AST 85 units/L (5-40) H 07/18/18 14:31 ALT 55 units/L (7-56) 07/18/18 14:31 Alkaline Phosphatase 141 units/L (35-129) H 07/18/18 14:31 Total Protein 7.9 g/dL (6.3-8.2) 07/18/18 14:31 Albumin 3.7 g/dL (3.9-5) L 07/18/18 14:31 Albumin/Globulin Ratio 0.9 % 07/18/18 14:31 Urine Color Yellow (Yellow) 07/20/18 19:16 Urine Turbidity Clear (Clear) 07/20/18 19:16 Urine pH 7.0 (5.0-7.0) 07/20/18 19:16 Ur Specific [place] 1.008 (1.003-1.030) 07/20/18 19:16 Urine Protein <15 mg/dl mg/dL (Negative) 07/20/18 19:16 Urine Glucose (UA) Neg mg/dL (Negative) 07/20/18 19:16 Urine Ketones Neg mg/dL (Negative) 07/20/18 19:16 Urine Blood Neg (Negative) 07/20/18 19:16 Urine Nitrite Neg (Negative) 07/20/18 19:16 Urine Bilirubin Neg (Negative) 07/20/18 19:16 Urine Urobilinogen < 2.0 mg/dL (<2.0) 07/20/18 19:16 Ur Leukocyte Esterase Neg (Negative) 07/20/18 19:16 Urine WBC (Auto) 2.0 /HPF (0.0-6.0) 07/20/18 19:16 Urine RBC (Auto) 3.0 /HPF (0.0-6.0) 07/20/18 19:16 Nutrition/Malnutrition Assess - Dietary Evaluation Nutrition/Malnutrition Findings: Nutrition Notes Start: 07/20/18 14:03 Freq: Status: Active Protocol: Document 07/22/18 11:05 TW (Rec: 07/22/18 12:04 [facility] [id number]) Co-Sign 07/22/18 11:05 RM Nutrition Notes Initial or Follow up Reassessment Other Pertinent Diagnosis AIDS, dysphagia, oral candidiasis, severe malnutrition Current Diet Regular diet w/Ensure Enlive [place] TID Labs/Tests Reviewed. Pertinent Medications Reviewed Height 5 ft 7 in Weight 45 kg [place] Body Weight (kg) 67.27 BMI 15.5 Weight change and time frame Current wt obtained by bedscale. Subjective/Other Information Pt stated his appetite is fair and that he is eating about half of his meals and Ensures. Pt denied swallowing difficulty. Percent of energy/protein needs met: 94%/100% Burn Absent Trauma Absent #1 Nutrition Diagnosis Predicted suboptimal energy intake As Evidenced by Signs and Symptoms Pt meeting 94% of kcal needs and 100% of protein needs Diagnosis Progress(for reassessment Improved documentation) Is patient on ventilator? No Is Patient Ambulatory and/or Out of Bed No REE-([facility]-confined to bed) 1573.848 Kcal/Kg value to use for calculation 40 Approximate Energy Requirements Using 1800 kcal/Kg Calculation Used for Recommendations Kcal/kg Additional Notes PRO needs: 55-77g (1.2-1.5g/kg ) Fluid needs: 1 mL/kcal Nutrition Intervention Add Supplement/Snack (indicate name/kcal Ensure Enlive TID (strawberry) /protein ) Provides kCal: 1,050 Provides Protein (gm) 60 Goal #1 Continue to meet at least 75% of energy and protein needs through PO and ONS intakes. Follow-Up By: 07/28/18 Additional Comments F/U: PO and ONS intake
[2018-07-28] MEDS: UNASYN/NS 3 GM/100 ML 3 GM/100 ML BAG IV SCH ×4 (00:58→17:23)
[2018-07-28] MEDS: ZOVIRAX IV SCH ×3 (05:16→22:23)
[2018-07-28] MEDS: NACL 0.9% IV SCH ×3 (05:16→22:23)
[2018-07-28 06:09] LABS: Hemoglobin 9.1 gm/dl (11.8-15.2); Mean Corpuscular HGB Conc 32 % (32-34); Mean Corpuscular Volume 85 fl (84-94); Platelet Count 146 K/mm3 (140-440); Red Blood Count 3.29 M/mm3 (3.65-5.03); Red Cell Distribution Width 16.7 % (13.2-15.2)
[2018-07-28 06:29] LABS: BUN/Creatinine Ratio 32; Blood Urea Nitrogen 19 mg/dL (9-20); Calcium 8.5 mg/dL (8.4-10.2); Hemolysis Index 4
[2018-07-28] MEDS: NACL 0.9% 1000 ML 1,000 ML IV SCH (09:09)
--- NOTE | 2018-07-28 12:25 | XRay Report ---
PORTABLE CHEST INDICATION: Left upper arm PICC placement. COMPARISON: 07/24/2018 FINDINGS: Portable, frontal chest radiograph demonstrates new left upper extremity PICC tip about the cavoatrial junction. Stable cardiomediastinal silhouette. Patchy left lower lung infiltrate again noted. Clear remainder lungs without pleural effusions or CHF. EKG leads. CONCLUSION: Interval uncomplicated left upper extremity PICC placement, as described. Thank you for the opportunity to participate in this patient's care.
[2018-07-28] MEDS: PROTONIX PO SCH (12:50)
[2018-07-28] MEDS: MYCAMINE 100 MG in NACL 0.9% 100 ML IV SCH (12:50)
[2018-07-28] MEDS: PROAMATINE PO SCH (12:51)
[2018-07-28] MEDS: BACTRIM DS PO SCH (12:51)
[2018-07-28] MEDS: SODIUM CHLORIDE FLUSH SYRINGE 10 ML IV SCH ×2 (12:52→22:24)
--- NOTE | 2018-07-28 13:13 | Progress Note ---
Assessment and Plan Cultures: 07/20/18 Blood: No growth to date 07/20/18 Stool WBC : negative 07/20/18 Crypto: negative 07/20/18 Giardia: negative 07/23/2018 Blood culture: no growth A/P: 42-year-old male known to ID from recent admission on 06/23/18-06/19/18 for community acquired pneumonia, HIV/AIDS, oral candidiasis and diarrhea, now with: 1. 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 Minimal response to flucanazole, hence switched to IV micafungin on 07/23/2018. CT of face and neck also shows small right soft palatine abscess - added Unasyn on 07/24/2018. HSV reactivation cannot be ruled out, hence started acyclovir - good response to Micafungin, Acyclovir and Unasyn. 2. HIV/AIDS: Last admission in June CD4 count 11. Viral load [id number]. Remains non compliant, did not follow up in our clinic as well. Guarded prognosis. 3. Diarrhea: Resolved 4. Severe Malnutrition: currently able to tolerate liquids, consider protein supplements. 5. Fevers: Blood cultures no growth thus far, U/A negative. Resolved. Likely from untreated HIV/AIDS. 6. Leukopenia: probably related to end stage HIV/AIDS. f/u CMV PCR. Plan: -continue IV Unasyn 3 gm q6 hrs while inpatient, upon discharge, switch to PO Augmentin 875 mg BID -continue Micafungin 100 mg IV q day, will need to continue for 3 weeks ending 08/17/2018 via PICC -continue Acyclovir 400mg IV every 8 hours, upon discharge, switch to PO acyclovir 400 mg TID -continue Azithromycin 1200mg PO q week -Continue Magic mouthwash -Continue Bactrim DS PO every 24 hours -Continue Oral care -Order placed with case management -f/u ID clinic 08-17-18 Chanel Ryder MD Subjective Date of service: 07/28/18 Principal diagnosis: Candidiasis,AIDS Interval history: Patient complaining about why he got the PICC line. Explained the need for Rx. Eating drinking much better. No fever. No dysphagia. Objective - Exam Narrative Exam: Constitutional: Alert, awake, no distress. Cachexia Head, Ears, Nose: Normocephalic, atraumatic. External ears, nose normal Eyes: Conjunctivae/corneas clear. No icterus. No ptosis. Neck: Supple, no meningeal signs Oral: dentition poor, + thrush almost resolved Cardiovascular: S1, S2 normal. Respiratory: Good air entry, clear to auscultation bilaterally GI: Soft, non-tender; bowel sounds normal. No peritoneal signs Musculoskeletal: No pedal edema, no cyanosis. Skin: No rash or abscess. Hem/Lymphatic: No palpable cervical or supraclavicular nodes. No lymphangitis Psych: Mood ok. Affect flat Neurological: awake, alert - Constitutional Vitals: Vital Signs Temp Pulse Resp BP Pulse Ox 98.8 F 82 18 96/57 100 07/28/18 11:52 07/28/18 11:52 07/28/18 11:52 07/28/18 11:52 07/28/18 11:52 Temperature -Last 24 Hours Temperature 98.8 F Temperature 98.0 F Temperature 99.1 F Temperature 99.1 F - Labs CBC & Chem 7: 07/28/18 05:27 07/28/18 05:27 Labs: Abnormal lab results 07/28/18 07/28/18 Range/Units 05:27 05:27 WBC 1.3 L* (4.5-11.0) K/mm3 RBC 3.29 L (3.65-5.03) M/mm3 Hgb 9.1 L (11.8-15.2) gm/dl Hct 28.0 L (35.5-45.6) % RDW 16.7 H (13.2-15.2) % Sodium 135 L (137-145) mmol/L Chloride 107.4 H (98-107) mmol/L Carbon Dioxide 19 L (22-30) mmol/L Creatinine 0.6 L (0.8-1.5) mg/dL Glucose 102 H (75-100) mg/dL
[2018-07-28] MEDS: MAGIC MOUTHWASH PO SCH ×4 (14:00→22:24)
--- NOTE | 2018-07-28 17:11 | Progress Note ---
Assessment and Plan Assessment and plan: 42 YO Male Longterm Resident at [place] with AIDS with CD4 count of 11 on PCP/MAC Prophylaxis, Oral Candidiasis presents to ED for evaluation. Pt stats that he has experienced weakness and difficulty swallowing over the past 1 week. EMS notified and upon arrival the patient was found to be in distress. Pt transported to [facility] for further care and evaluation. Pt seen and evaluated in ED and found to have AIDS, Dysphagia secondary to Candidia Esophagitis. Pt denies fever, chills, CP, Palpitations, NVD, Trauma, skin rash, hemoptysis, productive cough, medication noncompliance, or recent ill contacts. He was recently discharged from the hospital following prolonged stay and was non complaint with follow up appt. 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 Minimal resp onse to flucanazole, hence switched to IV micafungin on 07/23/2018. CT of face and neck also shows small right soft palatine abscess - added Unasyn on 07/24/2018. HSV reactivation cannot be ruled out, hence started acyclovir 07/23/2018- good response to Micafungin, Acyclovir and Unasyn. 2. HIV/AIDS: Last admission in June CD4 count 11. Viral load [id number]. Remains non compliant, did not follow up in our clinic as well. Guarded prognosis. 3. Diarrhea: Resolved 4. Severe Malnutrition: currently able to tolerate liquids, consider protein supplements. 5. Fevers: Blood cultures no growth thus far, U/A negative. Resolved. Likely from untreated HIV/AIDS. 6. Leukopenia: probably related to end stage HIV/AIDS. f/u CMV PCR. Plan: -continue IV Unasyn 3 gm q6 hrs while inpatient, upon discharge, switch to PO Augmentin 875 mg BID -continue Micafungin 100 mg IV q day, will need to continue for 3 weeks ending 08/17/2018 via PICC -continue Acyclovir 400mg IV every 8 hours, upon discharge, switch to PO acyclovir 400 mg TID -continue Azithromycin 1200mg PO q week -Continue Magic mouthwash -Continue Bactrim DS PO every 24 hours -Continue Oral care Oral candidiasis getting worse on fluconazole - ID consulted and will change his anti fungals to micafungin - CT neck and facial bones showed small palatine abscess - Unasyn added and also Acylovir started - There is marked improvement in the oral trush. - suppportive care, magic mouthwash, oral care, oral suction prn AIDS -Outpatient ID F/U care, Continue PCP/MAC prophylaxis, Pending HIV Genotype, -Patient is on azithromycin and bactrim -Low CD4 count Compliance stressed Diarrhea: Resolved Dehydration: Continue to rehydrate Severe Malnutrition: Nutrition consult Sepsis: Blood cultures no growth thus far, U/A negative. -Chest Xray - There is mild residual patchy infiltrate in the left lower lobe and lingula. This has decreased by 25-50% since 06/13/18. The remainder of the lungs are clear. Leukopenia: probably related to end stage HIV/AIDS. Will check CMV PCR. DVT/GI prophy Anticipate discharge in am History Interval history: Patient is seen today for: SEVERE ORAL CANDIDASIS Seen and examined at bedside; 24hour events reviewed; nursing staff ; no adverse overnight events reported to me; Denies any chest pain, nausea, vomiting, diarrhea Picc line today. Sitting up at bedside. reports tolerating diet. Doubt comprehension of severity of illness No fever noted blood pressure controlled Hospitalist Physical - Physical exam Narrative exam: VITAL SIGNS: Reviewed. GENERAL: The patient appeared Chronically ill, emaciated, anorexic Vital signs as documented. HEAD: No signs of head trauma. EYES: Pupils are equal. Extraocular motions intact. EARS: Hearing grossly intact. MOUTH: severe oral thrush. NECK: No adenopathy, no JVD. CHEST: Chest with clear breath sounds bilaterally. No wheezes, rales, or rhonchi. CARDIAC: Regular rate and rhythm. S1 and S2, without murmurs, gallops, or rubs. VASCULAR: No Edema. Peripheral pulses normal and equal in all extremities. ABDOMEN: Soft, without detectable tenderness. No sign of distention. No rebound or guarding, and no masses palpated. Bowel Sounds normal. MUSCULOSKELETAL: Good range of motion of all major joints. Extremities without clubbing, cyanosis or edema. NEUROLOGIC EXAM: Alert and oriented x 3. No focal sensory or strength deficits. Speech normal. Follows commands. PSYCHIATRIC: Mood normal. SKIN: No rash or lesions. - Constitutional Vitals: Temp Pulse Resp BP Pulse Ox 98.8 F 82 18 96/57 100 07/28/18 11:52 07/28/18 11:52 07/28/18 11:52 07/28/18 11:52 07/28/18 11:52 General appearance: Present: mild distress Results - Labs CBC & Chem 7: 07/28/18 05:27 07/28/18 05:27 Labs: Laboratory Last Values WBC 1.3 K/mm3 (4.5-11.0) L* 07/28/18 05:27 RBC 3.29 M/mm3 (3.65-5.03) L 07/28/18 05:27 Hgb 9.1 gm/dl (11.8-15.2) L 07/28/18 05:27 Hct 28.0 % (35.5-45.6) L 07/28/18 05:27 MCV 85 fl (84-94) 07/28/18 05:27 MCH 28 pg (28-32) 07/28/18 05:27 MCHC 32 % (32-34) 07/28/18 05:27 RDW 16.7 % (13.2-15.2) H 07/28/18 05:27 Plt Count 146 K/mm3 (140-440) 07/28/18 05:27 Lymph % (Auto) 11.7 % (13.4-35.0) L 07/20/18 10:32 [place] % (Auto) 9.8 % (0.0-7.3) H 07/20/18 10:32 Eos % (Auto) 0.1 % (0.0-4.3) 07/20/18 10:32 Baso % (Auto) 0.2 % (0.0-1.8) 07/20/18 10:32 Lymph # 0.3 K/mm3 (1.2-5.4) L 07/20/18 10:32 [place] # 0.3 K/mm3 (0.0-0.8) 07/20/18 10:32 Eos # 0.0 K/mm3 (0.0-0.4) 07/20/18 10:32 Baso # 0.0 K/mm3 (0.0-0.1) 07/20/18 10:32 Add Manual Diff Complete 07/21/18 04:39 Total Counted 50 07/21/18 04:39 Seg Neutrophils % 78.2 % (40.0-70.0) H 07/20/18 10:32 Seg Neuts % (Manual) 88.0 % (40.0-70.0) H 07/21/18 04:39 Band Neutrophils % 4.0 % 07/21/18 04:39 Lymphocytes % (Manual) 4.0 % (13.4-35.0) L 07/21/18 04:39 Reactive Lymphs % (Man) 0 % 07/21/18 04:39 Monocytes % (Manual) 4.0 % (0.0-7.3) 07/21/18 04:39 Eosinophils % (Manual) 0 % (0.0-4.3) 07/21/18 04:39 Basophils % (Manual) 0 % (0.0-1.8) 07/21/18 04:39 Metamyelocytes % 0 % 07/21/18 04:39 Myelocytes % 0 % 07/21/18 04:39 Promyelocytes % 0 % 07/21/18 04:39 Blast Cells % 0 % 07/21/18 04:39 Nucleated RBC % Not Reportable 07/21/18 04:39 Seg Neutrophils # 2.0 K/mm3 (1.8-7.7) 07/20/18 10:32 Seg Neutrophils # Man 2.0 K/mm3 (1.8-7.7) 07/21/18 04:39 Band Neutrophils # 0.1 K/mm3 07/21/18 04:39 Lymphocytes # (Manual) 0.1 K/mm3 (1.2-5.4) L 07/21/18 04:39 Abs React Lymphs (Man) 0.0 K/mm3 07/21/18 04:39 Monocytes # (Manual) 0.1 K/mm3 (0.0-0.8) 07/21/18 04:39 Eosinophils # (Manual) 0.0 K/mm3 (0.0-0.4) 07/21/18 04:39 Basophils # (Manual) 0.0 K/mm3 (0.0-0.1) 07/21/18 04:39 Metamyelocytes # 0.0 K/mm3 07/21/18 04:39 Myelocytes # 0.0 K/mm3 07/21/18 04:39 Promyelocytes # 0.0 K/mm3 07/21/18 04:39 Blast Cells # 0.0 K/mm3 07/21/18 04:39 WBC Morphology Not Reportable 07/21/18 04:39 Hypersegmented Neuts Not Reportable 07/21/18 04:39 Hyposegmented Neuts Not Reportable 07/21/18 04:39 Hypogranular Neuts Not Reportable 07/21/18 04:39 Smudge Cells Not Reportable 07/21/18 04:39 Toxic Granulation Not Reportable 07/21/18 04:39 Toxic Vacuolation Not Reportable 07/21/18 04:39 Dohle Bodies Not Reportable 07/21/18 04:39 Pelger-Huet Anomaly Not Reportable 07/21/18 04:39 Giovanni Rods Not Reportable 07/21/18 04:39 Platelet Estimate Appears normal 07/21/18 04:39 Clumped Platelets Not Reportable 07/21/18 04:39 Plt Clumps, EDTA Not Reportable 07/21/18 04:39 Large Platelets Rare 07/21/18 04:39 Giant Platelets Not Reportable 07/21/18 04:39 Platelet Satelliting Not Reportable 07/21/18 04:39 Plt Morphology Comment Not Reportable 07/21/18 04:39 RBC Morphology Not Reportable 07/21/18 04:39 Dimorphic RBCs Not Reportable 07/21/18 04:39 Polychromasia Not Reportable 07/21/18 04:39 Hypochromasia Not Reportable 07/21/18 04:39 Poikilocytosis 2+ 07/21/18 04:39 Anisocytosis 1+ 07/21/18 04:39 Microcytosis 1+ 07/21/18 04:39 Macrocytosis Not Reportable 07/21/18 04:39 Spherocytes Not Reportable 07/21/18 04:39 Pappenheimer Bodies Not Reportable 07/21/18 04:39 Sickle Cells Not Reportable 07/21/18 04:39 Target Cells Not Reportable 07/21/18 04:39 Tear Drop Cells 1+ 07/21/18 04:39 Ovalocytes 2+ 07/21/18 04:39 Helmet Cells Few 07/21/18 04:39 [place]-Ward Bodies Not Reportable 07/21/18 04:39 [place] Rings Not Reportable 07/21/18 04:39 Cinthya Cells Not Reportable 07/21/18 04:39 Bite Cells Not Reportable 07/21/18 04:39 Crenated Cell Not Reportable 07/21/18 04:39 Elliptocytes 2+ 07/21/18 04:39 Acanthocytes (Spur) Not Reportable 07/21/18 04:39 Rouleaux Not Reportable 07/21/18 04:39 Hemoglobin C Crystals Not Reportable 07/21/18 04:39 Schistocytes Rare 07/21/18 04:39 Malaria parasites Not Reportable 07/21/18 04:39 Carlos A Bodies Not Reportable 07/21/18 04:39 Hem Pathologist Commnt No 07/21/18 04:39 Sodium 135 mmol/L (137-145) L 07/28/18 05:27 Potassium 4.2 mmol/L (3.6-5.0) 07/28/18 05:27 Chloride 107.4 mmol/L (98-107) H 07/28/18 05:27 Carbon Dioxide 19 mmol/L (22-30) L 07/28/18 05:27 Anion Gap 13 mmol/L 07/28/18 05:27 BUN 19 mg/dL (9-20) 07/28/18 05:27 Creatinine 0.6 mg/dL (0.8-1.5) L 07/28/18 05:27 Estimated GFR > 60 ml/min 07/28/18 05:27 BUN/Creatinine Ratio 32 % 07/28/18 05:27 Glucose 102 mg/dL (75-100) H 07/28/18 05:27 POC Glucose 136 (70-105) H 07/25/18 22:00 Calcium 8.5 mg/dL (8.4-10.2) 07/28/18 05:27 Total Bilirubin 0.20 mg/dL (0.1-1.2) 07/18/18 14:31 AST 85 units/L (5-40) H 07/18/18 14:31 ALT 55 units/L (7-56) 07/18/18 14:31 Alkaline Phosphatase 141 units/L (35-129) H 07/18/18 14:31 Total Protein 7.9 g/dL (6.3-8.2) 07/18/18 14:31 Albumin 3.7 g/dL (3.9-5) L 07/18/18 14:31 Albumin/Globulin Ratio 0.9 % 07/18/18 14:31 Urine Color Yellow (Yellow) 07/20/18 19:16 Urine Turbidity Clear (Clear) 07/20/18 19:16 Urine pH 7.0 (5.0-7.0) 07/20/18 19:16 Ur Specific [place] 1.008 (1.003-1.030) 07/20/18 19:16 Urine Protein <15 mg/dl mg/dL (Negative) 07/20/18 19:16 Urine Glucose (UA) Neg mg/dL (Negative) 07/20/18 19:16 Urine Ketones Neg mg/dL (Negative) 07/20/18 19:16 Urine Blood Neg (Negative) 07/20/18 19:16 Urine Nitrite Neg (Negative) 07/20/18 19:16 Urine Bilirubin Neg (Negative) 07/20/18 19:16 Urine Urobilinogen < 2.0 mg/dL (<2.0) 07/20/18 19:16 Ur Leukocyte Esterase Neg (Negative) 07/20/18 19:16 Urine WBC (Auto) 2.0 /HPF (0.0-6.0) 07/20/18 19:16 Urine RBC (Auto) 3.0 /HPF (0.0-6.0) 07/20/18 19:16 Nutrition/Malnutrition Assess - Dietary Evaluation Nutrition/Malnutrition Findings: Nutrition Notes Start: 07/20/18 14:03 Freq: Status: Active Protocol: Document 07/28/18 13:30 (Rec: 07/28/18 14:11 [email or web address]) Co-Sign 07/28/18 13:30 LP Nutrition Notes Initial or Follow up Reassessment Other Pertinent Diagnosis AIDS, dysphagia, oral candidiasis, severe malnutrition Current Diet Regular diet w/Ensure Enlive Brogan TID Labs/Tests Reviewed Pertinent Medications Reviewed Height 5 ft 7 in Weight 52 kg [place] Body Weight (kg) 67.27 BMI 17.9 Weight change and time frame Current wt. obtained form bed scale Subjective/Other Information Pt f/u for PO and ONS intakes. Observed 25% of breakfast tray eaten. Observed unopened strawberry Ensure in room. Pt. stated he did not like the Ensure. Also observed a half empty boost in room that pt. stated someone brought for him . Pt. denied chewing/ swallowing difficulties. Burn Absent Trauma Absent #2 Nutrition Diagnosis Increased nutrient needs ( specify in comment below) Comments: Protein Etiology HIV-related oppurtunistic infection As Evidenced by Signs and Symptoms oral candidiasis #1 Nutrition Diagnosis Predicted suboptimal energy intake Diagnosis Progress(for reassessment Resolved documentation) Is patient on ventilator? No Is Patient Ambulatory and/or Out of Bed Yes REE-([facility]-ambulatory/OOB) [ 1792.219 NUTR.[id number]] Kcal/Kg value to use for calculation 43 Approximate Energy Requirements Using 2236 kcal/Kg Calculation Used for Recommendations Kcal/kg Additional Notes Pro needs:65g-78g/day (1.25-1. 5 g/kg BW) Fluid needs: 1 ml/kcal Nutrition Intervention Change Diet Order: Continue Regular Diet Add Supplement/Snack (indicate name/kcal D/C Ensure Enlive /protein ) Goal #1 Meet at least 75% of energy protein needs via PO and ONS intakes Anticipated Discharge Needs: Regular Diet with ONS PRN Follow-Up By: 07/29/18 Additional Comments F/u: NFPA for malnutrition Dx, amount of Boost consumed daily - Attestation Statement I have reviewed and agreed w/ Malnutrition eval & tx plan: Yes
[2018-07-29] MEDS: UNASYN/NS 3 GM/100 ML 3 GM/100 ML BAG IV SCH ×5 (01:01→23:31)
[2018-07-29] MEDS: ZOVIRAX IV SCH ×3 (05:17→21:36)
[2018-07-29] MEDS: NACL 0.9% IV SCH ×3 (05:17→21:36)
[2018-07-29] MEDS: NACL 0.9% 1000 ML 1,000 ML IV SCH (06:52)
--- NOTE | 2018-07-29 08:06 | Discharge Summary ---
Providers - Providers Date of Admission: 07/18/18 16:26 Attending physician: JOSH WELCH MD 07/18/18 19:57 Consult to Physician [CONS] Routine Comment: Consulting Provider: DILLON BORDEN Physician Instructions: Reason For Exam: Aids 07/27/18 15:50 Consult to Case Management [CONS] Urgent Services Needed at Discharge: Home Health Services Notified:: yes Additional Physician Instructions: [facility] M [phone] O [phone] F [phone] OUTPATIENT PARENTERAL ANTIBIOTIC THERAPY ORDERS Diagnoses: Mehnaz Esophagitis/Small soft palate abscess Antimicrobial administration: upon discharge will do Micafungin 100mg IV q day ending 08-17-18 Remove PICC line after last dose unless otherwise instructed. Lines: PICC Lab monitoring: CBC, BUN, Creatinine, ALT, AST, CK, once a week preferly on Thursday morning. Please fax results to [phone] and call [phone] for critical lab results. Dee Vyas NP/ Dr. Ryder Date: 07/27/18 07/27/18 15:54 PICC Line Placement [Consult to PICC Line RN] [CONS] Urgent Reason For Exam: out patient antibiotic therapy Type Line:: PICC Primary care physician: PUBLIC HEALTH TECHNICIAN Hospitalization Reason for admission: sepsis Condition: Stable Hospital course: 42 YO Male Fpc Resident at [place] with AIDS with CD4 count of 11 on PCP/MAC Prophylaxis, Oral Candidiasis presents to ED for evaluation. Pt stats that he has experienced weakness and difficulty swallowing over the past 1 week. EMS notified and upon arrival the patient was found to be in distress. Pt transported to [facility] for further care and evaluation. Pt seen and evaluated in ED and found to have AIDS, Dysphagia secondary to Candidia Esophagitis. Pt denies fever, chills, CP, Palpitations, NVD, Trauma, skin rash, hemoptysis, productive cough, medication noncompliance, or recent ill contacts. He was recently discharged from the hospital following prolonged stay and was non complaint with follow up appt. Per Pysch Severe Oral Candidiasis, Improved, small soft palate abscess, likely mehnaz esophagitis: Worsening oropharyngeal lesions, significant white plaque on the oropharynx, tongue, inner and outer portion of lips, buccal mucosa. Minimal response to flucanazole, hence switched to IV micafungin on 07/23/2018. CT of face and neck also shows small right soft palatine abscess - added Unasyn on 07/24/2018. HSV reactivation cannot be ruled out, hence started acyclovir 07/23/2018- good response to Micafungin, Acyclovir and Unasyn. 2. HIV/AIDS: Last admission in June CD4 count 11. Viral load [id number]. Remains non compliant, did not follow up in our clinic as well. Guarded prognosis. 3. Diarrhea: Resolved 4. Severe Malnutrition: currently able to tolerate liquids, consider protein supplements. 5. Fevers: Blood cultures no growth thus far, U/A negative. Resolved. Likely from untreated HIV/AIDS. 6. Leukopenia: probably related to end stage HIV/AIDS. f/u CMV PCR. Plan: -continue IV Unasyn 3 gm q6 hrs while inpatient, upon discharge, switch to PO Augmentin 875 mg BID -continue Micafungin 100 mg IV q day, will need to continue for 3 weeks ending 08/17/2018 via PICC -continue Acyclovir 400mg IV every 8 hours, upon discharge, switch to PO acyclovir 400 mg TID -continue Azithromycin 1200mg PO q week -Continue Magic mouthwash -Continue Bactrim DS PO every 24 hours -Continue Oral care Oral candidiasis getting worse on fluconazole - ID consulted and will change his anti fungals to micafungin - CT neck and facial bones showed small palatine abscess - Unasyn added and also Acylovir started - There is marked improvement in the oral trush. - suppportive care, magic mouthwash, oral care, oral suction prn AIDS -Outpatient ID F/U care, Continue PCP/MAC prophylaxis, Pending HIV Genotype, -Patient is on azithromycin and bactrim -Low CD4 count Compliance stressed Diarrhea: Resolved Dehydration: Continue to rehydrate Severe Malnutrition: Nutrition consult Sepsis: Blood cultures no growth thus far, U/A negative. -Chest Xray - There is mild residual patchy infiltrate in the left lower lobe and lingula. This has decreased by 25-50% since 06/13/18. The remainder of the lungs are clear. Leukopenia: probably related to end stage HIV/AIDS. Will check CMV PCR. DVT/GI prophy Anticipate discharge in am [facility] Time spent for discharge: 35 mins Core Measure Documentation - Palliative Care Palliative Care/ Comfort Measures: Not Applicable - Core Measures Any of the following diagnoses?: none Exam - Physical Exam Narrative exam: VITAL SIGNS: Reviewed. GENERAL: The patient appeared Chronically ill, emaciated, anorexic Vital signs as documented. HEAD: No signs of head trauma. EYES: Pupils are equal. Extraocular motions intact. EARS: Hearing grossly intact. MOUTH: severe oral thrush. NECK: No adenopathy, no JVD. CHEST: Chest with clear breath sounds bilaterally. No wheezes, rales, or rhonchi. CARDIAC: Regular rate and rhythm. S1 and S2, without murmurs, gallops, or rubs. VASCULAR: No Edema. Peripheral pulses normal and equal in all extremities. ABDOMEN: Soft, without detectable tenderness. No sign of distention. No rebound or guarding, and no masses palpated. Bowel Sounds normal. MUSCULOSKELETAL: Good range of motion of all major joints. Extremities without clubbing, cyanosis or edema. NEUROLOGIC EXAM: Alert and oriented x 3. No focal sensory or strength deficits. Speech normal. Follows commands. PSYCHIATRIC: Mood normal. SKIN: No rash or lesions. - Constitutional Vitals: Temp Pulse Resp BP Pulse Ox 97.7 F 113 H 18 106/76 97 07/29/18 05:58 07/29/18 05:58 07/29/18 05:58 07/29/18 05:58 07/29/18 05:58 Plan Activity: advance as tolerated, fall precautions Diet: regular Special Instructions: record daily weights, record daily BP diary Follow up with: your, ID doctor [Other] - 3-5 Days ELDER WILSON MD [Staff Physician] - 3-5 Days Prescriptions: Fluconazole [Diflucan] 200 mg PO DAILY #7 tablet Fluconazole [Diflucan TAB] 400 mg PO QDAY 30 Days #60 tablet Nystas/Diphen/Xyl Visc/Mylanta [Magic Mouthwash] 15 ml PO TID 14 Days oral.liqd Nystas/Diphen/Xyl Visc/Mylanta [Magic Mouthwash] 15 ml PO TID 30 Days #1 udc Sulfamethoxazole/Trimethoprim [Bactrim DS TAB] 1 each PO QDAY 30 Days #30 tablet
--- NOTE | 2018-07-29 10:02 | Progress Note ---
Assessment and Plan Cultures: 07/20/18 Blood: No growth to date 07/20/18 Stool WBC : negative 07/20/18 Crypto: negative 07/20/18 Giardia: negative 07/23/2018 Blood culture: no growth A/P: 42-year-old male known to ID from recent admission on 06/23/18-06/19/18 for community acquired pneumonia, HIV/AIDS, oral candidiasis and diarrhea, now with: 1. 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 Minimal response to flucanazole, hence switched to IV micafungin on 07/23/2018. CT of face and neck also shows small right soft palatine abscess - added Unasyn on 07/24/2018. HSV reactivation cannot be ruled out, hence started acyclovir 07/23/2018- good response to Micafungin, Acyclovir and Unasyn. 2. HIV/AIDS: Last admission in June CD4 count 11. Viral load [id number]. Remains non compliant, did not follow up in our clinic as well. Guarded prognosis. 3. Diarrhea: Resolved 4. Severe Malnutrition: currently able to tolerate liquids, consider protein supplements. 5. Fevers: Blood cultures no growth thus far, U/A negative. Resolved. Likely from untreated HIV/AIDS. 6. Leukopenia: probably related to end stage HIV/AIDS. f/u CMV PCR. Plan: -continue IV Unasyn 3 gm q6 hrs while inpatient, upon discharge, switch to PO Augmentin 875 mg BID -continue Micafungin 100 mg IV q day, will need to continue for 3 weeks ending 08/17/2018 via PICC -continue Acyclovir 400mg IV every 8 hours, upon discharge, switch to PO acyclovir 400 mg TID -continue Azithromycin 1200mg PO q week -Continue Magic mouthwash -Continue Bactrim DS PO every 24 hours -Continue Oral care -Order placed with case management -f/u ID clinic 08-17-18 @ 09:20 AM [facility] M: [phone] O:[phone] Subjective Date of service: 07/29/18 Principal diagnosis: Candidiasis,AIDS Interval history: Patient seen and examined. Improved oropharyngeal lesions on mouth, tongue and inner jaws. Able to eat and drink without pain. Discussed importance of following up with ID on 08-17-18. patient doesn't have a phone. Verbalized un derstanding. Objective - Exam Narrative Exam: Constitutional: Alert, awake, no acute distress. Cachexia Head, Ears, Nose: Normocephalic, atraumatic. External ears, nose normal Eyes: Conjunctivae/corneas clear. No icterus. No ptosis. Neck: Supple, no meningeal signs Oral: dentition poor, + extensive whitish plaque / thrush involving lips, tongue, and oropharynx - improved Cardiovascular: S1, S2 normal. Respiratory: Good air entry, clear to auscultation bilaterally GI: Soft, non-tender; bowel sounds normal. No peritoneal signs Musculoskeletal: No pedal edema, no cyanosis. Skin: No rash or abscess. Hem/Lymphatic: No palpable cervical or supraclavicular nodes. No lymphangitis Psych: agitated Neurological: awake, alert - Constitutional Vitals: Vital Signs Temp Pulse Resp BP Pulse Ox 97.7 F 113 H 18 106/76 97 07/29/18 05:58 07/29/18 05:58 07/29/18 05:58 07/29/18 05:58 07/29/18 05:58 Temperature -Last 24 Hours Temperature 97.7 F Temperature 98.6 F Temperature 98.8 F - Labs CBC & Chem 7: 07/28/18 05:27 07/28/18 05:27
[2018-07-29] MEDS: PROAMATINE PO SCH (11:23)
[2018-07-29] MEDS: PROTONIX PO SCH (11:24)
[2018-07-29] MEDS: SODIUM CHLORIDE FLUSH SYRINGE 10 ML IV SCH ×2 (11:25→21:37)
[2018-07-29] MEDS: MYCAMINE 100 MG in NACL 0.9% 100 ML IV SCH (11:29)
[2018-07-29] MEDS: MAGIC MOUTHWASH PO SCH ×4 (11:36→21:37)
[2018-07-29] MEDS: BACTRIM DS PO SCH (11:36)
--- NOTE | 2018-07-29 14:26 | Progress Note ---
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 Pt stats that he has experienced weakness and difficulty swallowing over the past 1 week. EMS notified and upon arrival the patient was found to be in distress. Pt transported to [facility] for further care and evaluation. Pt seen and evaluated in ED and found to have AIDS, Dysphagia secondary to Candidia Esophagitis. Pt denies fever, chills, CP, Palpitations, NVD, Trauma, skin rash, hemoptysis, productive cough, medication noncompliance, or recent ill contacts. He was recently discharged from the hospital following prolonged stay and was non complaint with follow up appt. 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 Minimal resp onse to flucanazole, hence switched to IV micafungin on 07/23/2018. CT of face and neck also shows small right soft palatine abscess - added Unasyn on 07/24/2018. HSV reactivation cannot be ruled out, hence started acyclovir 07/23/2018- good response to Micafungin, Acyclovir and Unasyn. 2. HIV/AIDS: Last admission in June CD4 count 11. Viral load [id number]. Remains non compliant, did not follow up in our clinic as well. Guarded prognosis. 3. Diarrhea: Resolved 4. Severe Malnutrition: currently able to tolerate liquids, consider protein supplements. 5. Fevers: Blood cultures no growth thus far, U/A negative. Resolved. Likely from untreated HIV/AIDS. 6. Leukopenia: probably related to end stage HIV/AIDS. f/u CMV PCR. Plan: -continue IV Unasyn 3 gm q6 hrs while inpatient, upon discharge, switch to PO Augmentin 875 mg BID -continue Micafungin 100 mg IV q day, will need to continue for 3 weeks ending 08/17/2018 via PICC -continue Acyclovir 400mg IV every 8 hours, upon discharge, switch to PO acyclovir 400 mg TID -continue Azithromycin 1200mg PO q week -Continue Magic mouthwash -Continue Bactrim DS PO every 24 hours -Continue Oral care Oral candidiasis getting worse on fluconazole - ID consulted and will change his anti fungals to micafungin - CT neck and facial bones showed small palatine abscess - Unasyn added and also Acylovir started - There is marked improvement in the oral trush. - suppportive care, magic mouthwash, oral care, oral suction prn AIDS -Outpatient ID F/U care, Continue PCP/MAC prophylaxis, Pending HIV Genotype, -Patient is on azithromycin and bactrim -Low CD4 count Compliance stressed Diarrhea: Resolved Dehydration: Continue to rehydrate Severe Malnutrition: Nutrition consult Sepsis: Blood cultures no growth thus far, U/A negative. -Chest Xray - There is mild residual patchy infiltrate in the left lower lobe and lingula. This has decreased by 25-50% since 06/13/18. The remainder of the lungs are clear. Leukopenia: probably related to end stage HIV/AIDS. Will check CMV PCR. DVT/GI prophy Cleared for discharge awaiting insurance History Interval history: Patient is seen today for: SEVERE ORAL CANDIDASIS Seen and examined at bedside; 24hour events reviewed; nursing staff ; no adverse overnight events reported to me; Denies any chest pain, nausea, vomiting, diarrhea Sitting up at bedside. reports tolerating diet. Doubt comprehension of severity of illness No fever noted blood pressure controlled Hospitalist Physical - Physical exam Narrative exam: VITAL SIGNS: Reviewed. GENERAL: The patient appeared Chronically ill, emaciated, anorexic Vital signs as documented. HEAD: No signs of head trauma. EYES: Pupils are equal. Extraocular motions intact. EARS: Hearing grossly intact. MOUTH: severe oral thrush. NECK: No adenopathy, no JVD. CHEST: Chest with clear breath sounds bilaterally. No wheezes, rales, or rhonchi. CARDIAC: Regular rate and rhythm. S1 and S2, without murmurs, gallops, or rubs. VASCULAR: No Edema. Peripheral pulses normal and equal in all extremities. ABDOMEN: Soft, without detectable tenderness. No sign of distention. No rebound or guarding, and no masses palpated. Bowel Sounds normal. MUSCULOSKELETAL: Good range of motion of all major joints. Extremities without clubbing, cyanosis or edema. NEUROLOGIC EXAM: Alert and oriented x 3. No focal sensory or strength deficits. Speech normal. Follows commands. PSYCHIATRIC: Mood normal. SKIN: No rash or lesions. - Constitutional Vitals: Temp Pulse Resp BP Pulse Ox 97.8 F 69 18 94/62 96 07/29/18 13:11 07/29/18 13:11 07/29/18 05:58 07/29/18 13:11 07/29/18 13:11 General appearance: Present: mild distress Results - Labs CBC & Chem 7: 07/28/18 05:27 07/28/18 05:27 Labs: Laboratory Last Values WBC 1.3 K/mm3 (4.5-11.0) L* 07/28/18 05:27 RBC 3.29 M/mm3 (3.65-5.03) L 07/28/18 05:27 Hgb 9.1 gm/dl (11.8-15.2) L 07/28/18 05:27 Hct 28.0 % (35.5-45.6) L 07/28/18 05:27 MCV 85 fl (84-94) 07/28/18 05:27 MCH 28 pg (28-32) 07/28/18 05:27 MCHC 32 % (32-34) 07/28/18 05:27 RDW 16.7 % (13.2-15.2) H 07/28/18 05:27 Plt Count 146 K/mm3 (140-440) 07/28/18 05:27 Lymph % (Auto) 11.7 % (13.4-35.0) L 07/20/18 10:32 [place] % (Auto) 9.8 % (0.0-7.3) H 07/20/18 10:32 Eos % (Auto) 0.1 % (0.0-4.3) 07/20/18 10:32 Baso % (Auto) 0.2 % (0.0-1.8) 07/20/18 10:32 Lymph # 0.3 K/mm3 (1.2-5.4) L 07/20/18 10:32 [place] # 0.3 K/mm3 (0.0-0.8) 07/20/18 10:32 Eos # 0.0 K/mm3 (0.0-0.4) 07/20/18 10:32 Baso # 0.0 K/mm3 (0.0-0.1) 07/20/18 10:32 Add Manual Diff Complete 07/21/18 04:39 Total Counted 50 02/13/19 04:39 Seg Neutrophils % 78.2 % (40.0-70.0) H 07/20/18 10:32 Seg Neuts % (Manual) 88.0 % (40.0-70.0) H 07/21/18 04:39 Band Neutrophils % 4.0 % 07/21/18 04:39 Lymphocytes % (Manual) 4.0 % (13.4-35.0) L 07/21/18 04:39 Reactive Lymphs % (Man) 0 % 07/21/18 04:39 Monocytes % (Manual) 4.0 % (0.0-7.3) 07/21/18 04:39 Eosinophils % (Manual) 0 % (0.0-4.3) 07/21/18 04:39 Basophils % (Manual) 0 % (0.0-1.8) 07/21/18 04:39 Metamyelocytes % 0 % 07/21/18 04:39 Myelocytes % 0 % 07/21/18 04:39 Promyelocytes % 0 % 07/21/18 04:39 Blast Cells % 0 % 07/21/18 04:39 Nucleated RBC % Not Reportable 07/21/18 04:39 Seg Neutrophils # 2.0 K/mm3 (1.8-7.7) 07/20/18 10:32 Seg Neutrophils # Man 2.0 K/mm3 (1.8-7.7) 07/21/18 04:39 Band Neutrophils # 0.1 K/mm3 07/21/18 04:39 Lymphocytes # (Manual) 0.1 K/mm3 (1.2-5.4) L 07/21/18 04:39 Abs React Lymphs (Man) 0.0 K/mm3 07/21/18 04:39 Monocytes # (Manual) 0.1 K/mm3 (0.0-0.8) 07/21/18 04:39 Eosinophils # (Manual) 0.0 K/mm3 (0.0-0.4) 07/21/18 04:39 Basophils # (Manual) 0.0 K/mm3 (0.0-0.1) 07/21/18 04:39 Metamyelocytes # 0.0 K/mm3 07/21/18 04:39 Myelocytes # 0.0 K/mm3 07/21/18 04:39 Promyelocytes # 0.0 K/mm3 07/21/18 04:39 Blast Cells # 0.0 K/mm3 07/21/18 04:39 WBC Morphology Not Reportable 07/21/18 04:39 Hypersegmented Neuts Not Reportable 07/21/18 04:39 Hyposegmented Neuts Not Reportable 07/21/18 04:39 Hypogranular Neuts Not Reportable 07/21/18 04:39 Smudge Cells Not Reportable 07/21/18 04:39 Toxic Granulation Not Reportable 07/21/18 04:39 Toxic Vacuolation Not Reportable 07/21/18 04:39 Dohle Bodies Not Reportable 07/21/18 04:39 Pelger-Huet Anomaly Not Reportable 07/21/18 04:39 Giovanni Rods Not Reportable 07/21/18 04:39 Platelet Estimate Appears normal 07/21/18 04:39 Clumped Platelets Not Reportable 07/21/18 04:39 Plt Clumps, EDTA Not Reportable 07/21/18 04:39 Large Platelets Rare 07/21/18 04:39 Giant Platelets Not Reportable 07/21/18 04:39 Platelet Satelliting Not Reportable 07/21/18 04:39 Plt Morphology Comment Not Reportable 07/21/18 04:39 RBC Morphology Not Reportable 07/21/18 04:39 Dimorphic RBCs Not Reportable 07/21/18 04:39 Polychromasia Not Reportable 07/21/18 04:39 Hypochromasia Not Reportable 07/21/18 04:39 Poikilocytosis 2+ 07/21/18 04:39 Anisocytosis 1+ 07/21/18 04:39 Microcytosis 1+ 07/21/18 04:39 Macrocytosis Not Reportable 07/21/18 04:39 Spherocytes Not Reportable 07/21/18 04:39 Pappenheimer Bodies Not Reportable 07/21/18 04:39 Sickle Cells Not Reportable 07/21/18 04:39 Target Cells Not Reportable 07/21/18 04:39 Tear Drop Cells 1+ 07/21/18 04:39 Ovalocytes 2+ 07/21/18 04:39 Helmet Cells Few 07/21/18 04:39 [place] Bodies Not Reportable 07/21/18 04:39 [place] Rings Not Reportable 07/21/18 04:39 [place] Cells Not Reportable 07/21/18 04:39 Bite Cells Not Reportable 07/21/18 04:39 Crenated Cell Not Reportable 07/21/18 04:39 Elliptocytes 2+ 07/21/18 04:39 Acanthocytes (Spur) Not Reportable 07/21/18 04:39 Rouleaux Not Reportable 07/21/18 04:39 Hemoglobin C Crystals Not Reportable 07/21/18 04:39 Schistocytes Rare 07/21/18 04:39 Malaria parasites Not Reportable 07/21/18 04:39 Carlos A Bodies Not Reportable 07/21/18 04:39 Hem Pathologist Commnt No 07/21/18 04:39 Sodium 135 mmol/L (137-145) L 07/28/18 05:27 Potassium 4.2 mmol/L (3.6-5.0) 07/28/18 05:27 Chloride 107.4 mmol/L (98-107) H 07/28/18 05:27 Carbon Dioxide 19 mmol/L (22-30) L 07/28/18 05:27 Anion Gap 13 mmol/L 07/28/18 05:27 BUN 19 mg/dL (9-20) 07/28/18 05:27 Creatinine 0.6 mg/dL (0.8-1.5) L 07/28/18 05:27 Estimated GFR > 60 ml/min 07/28/18 05:27 BUN/Creatinine Ratio 32 % 07/28/18 05:27 Glucose 102 mg/dL (75-100) H 07/28/18 05:27 POC Glucose 136 (70-105) H 07/25/18 22:00 Calcium 8.5 mg/dL (8.4-10.2) 07/28/18 05:27 Total Bilirubin 0.20 mg/dL (0.1-1.2) 07/18/18 14:31 AST 85 units/L (5-40) H 07/18/18 14:31 ALT 55 units/L (7-56) 07/18/18 14:31 Alkaline Phosphatase 141 units/L (35-129) H 07/18/18 14:31 Total Protein 7.9 g/dL (6.3-8.2) 07/18/18 14:31 Albumin 3.7 g/dL (3.9-5) L 07/18/18 14:31 Albumin/Globulin Ratio 0.9 % 07/18/18 14:31 Urine Color Yellow (Yellow) 07/20/18 19:16 Urine Turbidity Clear (Clear) 07/20/18 19:16 Urine pH 7.0 (5.0-7.0) 07/20/18 19:16 Ur Specific [place] 1.008 (1.003-1.030) 07/20/18 19:16 Urine Protein <15 mg/dl mg/dL (Negative) 07/20/18 19:16 Urine Glucose (UA) Neg mg/dL (Negative) 07/20/18 19:16 Urine Ketones Neg mg/dL (Negative) 07/20/18 19:16 Urine Blood Neg (Negative) 07/20/18 19:16 Urine Nitrite Neg (Negative) 07/20/18 19:16 Urine Bilirubin Neg (Negative) 07/20/18 19:16 Urine Urobilinogen < 2.0 mg/dL (<2.0) 07/20/18 19:16 Ur Leukocyte Esterase Neg (Negative) 07/20/18 19:16 Urine WBC (Auto) 2.0 /HPF (0.0-6.0) 07/20/18 19:16 Urine RBC (Auto) 3.0 /HPF (0.0-6.0) 07/20/18 19:16 Nutrition/Malnutrition Assess - Dietary Evaluation Nutrition/Malnutrition Findings: Nutrition Notes Start: 07/20/18 14:03 Freq: Status: Active Protocol: Document 07/28/18 13:30 (Rec: 07/28/18 14:11 [email or web address]) Co-Sign 07/28/18 13:30 LP Nutrition Notes Initial or Follow up Reassessment Other Pertinent Diagnosis AIDS, dysphagia, oral candidiasis, severe malnutrition Current Diet Regular diet w/Ensure Enlive [place] TID Labs/Tests Reviewed Pertinent Medications Reviewed Height 5 ft 7 in Weight 52 kg [place] Body Weight (kg) 67.27 BMI 17.9 Weight change and time frame Current wt. obtained form bed scale Subjective/Other Information Pt f/u for PO and ONS intakes. Observed 25% of breakfast tray eaten. Observed unopened strawberry Ensure in room. Pt. stated he did not like the Ensure. Also observed a half empty boost in room that pt. stated someone brought for him . Pt. denied chewing/ swallowing difficulties. Burn Absent Trauma Absent #2 Nutrition Diagnosis Increased nutrient needs ( specify in comment below) Comments: Protein Etiology HIV-related oppurtunistic infection As Evidenced by Signs and Symptoms oral candidiasis #1 Nutrition Diagnosis Predicted suboptimal energy intake Diagnosis Progress(for reassessment Resolved documentation) Is patient on ventilator? No Is Patient Ambulatory and/or Out of Bed Yes [facility] [ 1792.219 NUTR.MSJOOB] Kcal/Kg value to use for calculation 43 Approximate Energy Requirements Using 2236 kcal/Kg Calculation Used for Recommendations Kcal/kg Additional Notes Pro needs:65g-78g/day (1.25-1. 5 g/kg BW) Fluid needs: 1 ml/kcal Nutrition Intervention Change Diet Order: Continue Regular Diet Add Supplement/Snack (indicate name/kcal D/C Ensure Enlive /protein ) Goal #1 Meet at least 75% of energy protein needs via PO and ONS intakes Anticipated Discharge Needs: Regular Diet with ONS PRN Follow-Up By: 07/30/18 Additional Comments F/u: NFPA for malnutrition Dx, amount of Boost consumed daily
[2018-07-30] MEDS: UNASYN/NS 3 GM/100 ML 3 GM/100 ML BAG IV SCH ×3 (05:34→19:35)
[2018-07-30] MEDS: NACL 0.9% IV SCH ×3 (06:11→22:41)
[2018-07-30] MEDS: ZOVIRAX IV SCH ×3 (06:11→22:41)
[2018-07-30] MEDS: PROTONIX PO SCH (09:36)
[2018-07-30] MEDS: MYCAMINE 100 MG in NACL 0.9% 100 ML IV SCH (09:36)
[2018-07-30] MEDS: BACTRIM DS PO SCH (09:36)
[2018-07-30] MEDS: PROAMATINE PO SCH (09:36)
[2018-07-30] MEDS: SODIUM CHLORIDE FLUSH SYRINGE 10 ML IV SCH ×2 (09:48→22:42)
[2018-07-30] MEDS: MAGIC MOUTHWASH PO SCH ×4 (09:49→21:55)
--- NOTE | 2018-07-30 10:52 | Progress Note ---
Assessment and Plan Cultures: 07/20/18 Blood: No growth to date 07/20/18 Stool WBC : negative 07/20/18 Crypto: negative 07/20/18 Giardia: negative 07/23/2018 Blood culture: no growth A/P: 42-year-old male known to ID from recent admission on 06/23/18-06/19/18 for community acquired pneumonia, HIV/AIDS, oral candidiasis and diarrhea, now with: 1. 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 Minimal response to flucanazole, hence switched to IV micafungin on 07/23/2018. CT of face and neck also shows small right soft palatine abscess - added Unasyn on 07/24/2018. HSV reactivation cannot be ruled out, hence started acyclovir 07/23/2018- good response to Micafungin, Acyclovir and Unasyn. 2. HIV/AIDS: Last admission in June CD4 count 11. Viral load [id number]. HIV Genotype 111 with NRTI restrictions. Remains non compliant, did not follow up in our clinic as well. Guarded prognosis. 3. Diarrhea: Resolved 4. Severe Malnutrition: currently able to tolerate liquids, consider protein supplements. 5. Fevers: Blood cultures no growth thus far, U/A negative. Resolved. Likely from untreated HIV/AIDS. 6. Leukopenia: probably related to end stage HIV/AIDS. f/u CMV PCR. Plan: -continue IV Unasyn 3 gm q6 hrs while inpatient, upon discharge, switch to PO Augmentin 875 mg BID -continue Micafungin 100 mg IV q day, will need to continue for 3 weeks ending 08/17/2018 via PICC -continue Acyclovir 400mg IV every 8 hours, upon discharge, switch to PO acyclovir 400 mg TID -continue Azithromycin 1200mg PO q week -Continue Magic mouthwash -Continue Bactrim DS PO every 24 hours -Continue Oral care -Order placed with case management -f/u ID clinic 08-17-18 @ 09:[address] 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 Please call for questions. [facility] M: [phone] O:[phone] Subjective Date of service: 07/30/18 Principal diagnosis: Candidiasis,AIDS Interval history: Patient seen and examined. Improved oropharyngeal lesions on mouth, tongue and inner jaws. Able to eat and drink without pain. Discussed importance of following up with ID on 08-17-18. patient doesn't have a phone. Verbalized understanding. Objective - Exam Narrative Exam: Constitutional: Alert, awake, no acute distress. Cachexia Head, Ears, Nose: Normocephalic, atraumatic. External ears, nose normal Eyes: Conjunctivae/corneas clear. No icterus. No ptosis. Neck: Supple, no meningeal signs Oral: dentition poor, + extensive whitish plaque / thrush involving lips, tongue, and oropharynx - improved Cardiovascular: S1, S2 normal. Respiratory: Good air entry, clear to auscultation bilaterally GI: Soft, non-tender; bowel sounds normal. No peritoneal signs Musculoskeletal: No pedal edema, no cyanosis. Skin: No rash or abscess. Hem/Lymphatic: No palpable cervical or supraclavicular nodes. No lymphangitis Psych: agitated Neurological: awake, alert - Constitutional Vitals: Vital Signs Temp Pulse Resp BP Pulse Ox 97.9 F 76 16 98/58 97 07/30/18 04:48 07/30/18 04:48 07/30/18 04:48 07/30/18 04:48 07/30/18 04:48 Temperature -Last 24 Hours Temperature 97.9 F Temperature 97.9 F Temperature 97.7 F Temperature 97.8 F - Labs CBC & Chem 7: 07/28/18 05:27 07/28/18 05:27
[2018-07-30] MEDS: NACL 0.9% 1000 ML 1,000 ML IV SCH (12:32)
--- NOTE | 2018-07-30 14:36 | Progress Note ---
Assessment and Plan Assessment and plan: 42 YO Male Long-Term Resident at [place] with AIDS with CD4 count of 11 on PCP/MAC Prophylaxis, Oral Candidiasis presents to ED for evaluation. Pt stats that he has experienced weakness and difficulty swallowing over the past 1 week. EMS notified and upon arrival the patient was found to be in distress. Pt transported to [facility] for further care and evaluation. Pt seen and evaluated in ED and found to have AIDS, Dysphagia secondary to Candidia Esophagitis. Pt denies fever, chills, CP, Palpitations, NVD, Trauma, skin rash, hemoptysis, productive cough, medication noncompliance, or recent ill contacts. He was recently discharged from the hospital following prolonged stay and was non complaint with follow up appt. Per Pysch ID input noted AIDS -Outpatient ID F/U care, Continue PCP/MAC prophylaxis, Pending HIV Genotype, -Patient is on azithromycin and bactrim -Low CD4 count Compliance stressed Diarrhea: Resolved Dehydration: Continue to rehydrate Severe Malnutrition: Nutrition consult Sepsis: Blood cultures no growth thus far, U/A negative. -Chest Xray - There is mild residual patchy infiltrate in the left lower lobe and lingula. This has decreased by 25-50% since 06/13/18. The remainder of the lungs are clear. - Management per ID Leukopenia: probably related to end stage HIV/AIDS. Poor prognosis DVT/GI prophy Cleared for discharge awaiting insurance History Interval history: Patient is seen today for: SEVERE ORAL CANDIDASIS Seen and examined at bedside; 24hour events reviewed; nursing staff ; no adverse overnight events reported to me; Denies any chest pain, nausea, vomiting, diarrhea Reports tolerating diet. Doubt comprehension of severity of illness No fever noted blood pressure controlled Hospitalist Physical - Physical exam Narrative exam: VITAL SIGNS: Reviewed. GENERAL: The patient appeared Chronically ill, emaciated, anorexic Vital signs as documented. HEAD: No signs of head trauma. EYES: Pupils are equal. Extraocular motions intact. EARS: Hearing grossly intact. MOUTH: severe oral thrush. NECK: No adenopathy, no JVD. CHEST: Chest with clear breath sounds bilaterally. No wheezes, rales, or rhonchi. CARDIAC: Regular rate and rhythm. S1 and S2, without murmurs, gallops, or rubs. VASCULAR: No Edema. Peripheral pulses normal and equal in all extremities. ABDOMEN: Soft, without detectable tenderness. No sign of distention. No rebound or guarding, and no masses palpated. Bowel Sounds normal. MUSCULOSKELETAL: Good range of motion of all major joints. Extremities without clubbing, cyanosis or edema. NEUROLOGIC EXAM: Alert and oriented x 3. lethargic. No focal sensory or strength deficits. Speech normal. Follows commands. PSYCHIATRIC: Mood normal. SKIN: No rash or lesions. - Constitutional Vitals: Temp Pulse Resp BP Pulse Ox 97.9 F 76 16 98/58 97 07/30/18 04:48 07/30/18 04:48 07/30/18 04:48 07/30/18 04:48 07/30/18 04:48 General appearance: Present: mild distress Results - Labs CBC & Chem 7: 07/28/18 05:27 07/28/18 05:27 Labs: Laboratory Last Values WBC 1.3 K/mm3 (4.5-11.0) L* 07/28/18 05:27 RBC 3.29 M/mm3 (3.65-5.03) L 07/28/18 05:27 Hgb 9.1 gm/dl (11.8-15.2) L 07/28/18 05:27 Hct 28.0 % (35.5-45.6) L 07/28/18 05:27 MCV 85 fl (84-94) 07/28/18 05:27 MCH 28 pg (28-32) 07/28/18 05:27 MCHC 32 % (32-34) 07/28/18 05:27 RDW 16.7 % (13.2-15.2) H 07/28/18 05:27 Plt Count 146 K/mm3 (140-440) 07/28/18 05:27 Lymph % (Auto) 11.7 % (13.4-35.0) L 07/20/18 10:32 [place] % (Auto) 9.8 % (0.0-7.3) H 07/20/18 10:32 Eos % (Auto) 0.1 % (0.0-4.3) 07/20/18 10:32 Baso % (Auto) 0.2 % (0.0-1.8) 07/20/18 10:32 Lymph # 0.3 K/mm3 (1.2-5.4) L 07/20/18 10:32 [place] # 0.3 K/mm3 (0.0-0.8) 07/20/18 10:32 Eos # 0.0 K/mm3 (0.0-0.4) 07/20/18 10:32 Baso # 0.0 K/mm3 (0.0-0.1) 07/20/18 10:32 Add Manual Diff Complete 07/21/18 04:39 Total Counted 50 07/21/18 04:39 Seg Neutrophils % 78.2 % (40.0-70.0) H 07/20/18 10:32 Seg Neuts % (Manual) 88.0 % (40.0-70.0) H 07/21/18 04:39 Band Neutrophils % 4.0 % 07/21/18 04:39 Lymphocytes % (Manual) 4.0 % (13.4-35.0) L 07/21/18 04:39 Reactive Lymphs % (Man) 0 % 07/21/18 04:39 Monocytes % (Manual) 4.0 % (0.0-7.3) 07/21/18 04:39 Eosinophils % (Manual) 0 % (0.0-4.3) 07/21/18 04:39 Basophils % (Manual) 0 % (0.0-1.8) 07/21/18 04:39 Metamyelocytes % 0 % 07/21/18 04:39 Myelocytes % 0 % 07/21/18 04:39 Promyelocytes % 0 % 07/21/18 04:39 Blast Cells % 0 % 07/21/18 04:39 Nucleated RBC % Not Reportable 07/21/18 04:39 Seg Neutrophils # 2.0 K/mm3 (1.8-7.7) 07/20/18 10:32 Seg Neutrophils # Man 2.0 K/mm3 (1.8-7.7) 07/21/18 04:39 Band Neutrophils # 0.1 K/mm3 07/21/18 04:39 Lymphocytes # (Manual) 0.1 K/mm3 (1.2-5.4) L 07/21/18 04:39 Abs React Lymphs (Man) 0.0 K/mm3 07/21/18 04:39 Monocytes # (Manual) 0.1 K/mm3 (0.0-0.8) 07/21/18 04:39 Eosinophils # (Manual) 0.0 K/mm3 (0.0-0.4) 07/21/18 04:39 Basophils # (Manual) 0.0 K/mm3 (0.0-0.1) 07/21/18 04:39 Metamyelocytes # 0.0 K/mm3 07/21/18 04:39 Myelocytes # 0.0 K/mm3 07/21/18 04:39 Promyelocytes # 0.0 K/mm3 07/21/18 04:39 Blast Cells # 0.0 K/mm3 07/21/18 04:39 WBC Morphology Not Reportable 07/21/18 04:39 Hypersegmented Neuts Not Reportable 07/21/18 04:39 Hyposegmented Neuts Not Reportable 07/21/18 04:39 Hypogranular Neuts Not Reportable 07/21/18 04:39 Smudge Cells Not Reportable 07/21/18 04:39 Toxic Granulation Not Reportable 07/21/18 04:39 Toxic Vacuolation Not Reportable 07/21/18 04:39 Dohle Bodies Not Reportable 07/21/18 04:39 Pelger-Huet Anomaly Not Reportable 07/21/18 04:39 Giovanni Rods Not Reportable 07/21/18 04:39 Platelet Estimate Appears normal 07/21/18 04:39 Clumped Platelets Not Reportable 07/21/18 04:39 Plt Clumps, EDTA Not Reportable 07/21/18 04:39 Large Platelets Rare 07/21/18 04:39 Giant Platelets Not Reportable 07/21/18 04:39 Platelet Satelliting Not Reportable 07/21/18 04:39 Plt Morphology Comment Not Reportable 07/21/18 04:39 RBC Morphology Not Reportable 07/21/18 04:39 Dimorphic RBCs Not Reportable 07/21/18 04:39 Polychromasia Not Reportable 07/21/18 04:39 Hypochromasia Not Reportable 07/21/18 04:39 Poikilocytosis 2+ 07/21/18 04:39 Anisocytosis 1+ 07/21/18 04:39 Microcytosis 1+ 07/21/18 04:39 Macrocytosis Not Reportable 07/21/18 04:39 Spherocytes Not Reportable 07/21/18 04:39 Pappenheimer Bodies Not Reportable 07/21/18 04:39 Sickle Cells Not Reportable 07/21/18 04:39 Target Cells Not Reportable 07/21/18 04:39 Tear Drop Cells 1+ 07/21/18 04:39 Ovalocytes 2+ 07/21/18 04:39 Helmet Cells Few 07/21/18 04:39 [place] Bodies Not Reportable 07/21/18 04:39 [place] Rings Not Reportable 07/21/18 04:39 [place] Cells Not Reportable 07/21/18 04:39 Bite Cells Not Reportable 07/21/18 04:39 Crenated Cell Not Reportable 07/21/18 04:39 Elliptocytes 2+ 07/21/18 04:39 Acanthocytes (Spur) Not Reportable 07/21/18 04:39 Rouleaux Not Reportable 07/21/18 04:39 Hemoglobin C Crystals Not Reportable 07/21/18 04:39 Schistocytes Rare 07/21/18 04:39 Malaria parasites Not Reportable 07/21/18 04:39 Carlos A Bodies Not Reportable 07/21/18 04:39 Hem Pathologist Commnt No 07/21/18 04:39 Sodium 135 mmol/L (137-145) L 07/28/18 05:27 Potassium 4.2 mmol/L (3.6-5.0) 07/28/18 05:27 Chloride 107.4 mmol/L (98-107) H 07/28/18 05:27 Carbon Dioxide 19 mmol/L (22-30) L 07/28/18 05:27 Anion Gap 13 mmol/L 07/28/18 05:27 BUN 19 mg/dL (9-20) 07/28/18 05:27 Creatinine 0.6 mg/dL (0.8-1.5) L 07/28/18 05:27 Estimated GFR > 60 ml/min 07/28/18 05:27 BUN/Creatinine Ratio 32 % 07/28/18 05:27 Glucose 102 mg/dL (75-100) H 07/28/18 05:27 POC Glucose 136 (70-105) H 07/25/18 22:00 Calcium 8.5 mg/dL (8.4-10.2) 07/28/18 05:27 Total Bilirubin 0.20 mg/dL (0.1-1.2) 07/18/18 14:31 AST 85 units/L (5-40) H 07/18/18 14:31 ALT 55 units/L (7-56) 07/18/18 14:31 Alkaline Phosphatase 141 units/L (35-129) H 07/18/18 14:31 Total Protein 7.9 g/dL (6.3-8.2) 07/18/18 14:31 Albumin 3.7 g/dL (3.9-5) L 07/18/18 14:31 Albumin/Globulin Ratio 0.9 % 07/18/18 14:31 Urine Color Yellow (Yellow) 07/20/18 19:16 Urine Turbidity Clear (Clear) 07/20/18 19:16 Urine pH 7.0 (5.0-7.0) 07/20/18 19:16 Ur Specific [place] 1.008 (1.003-1.030) 07/20/18 19:16 Urine Protein <15 mg/dl mg/dL (Negative) 07/20/18 19:16 Urine Glucose (UA) Neg mg/dL (Negative) 07/20/18 19:16 Urine Ketones Neg mg/dL (Negative) 07/20/18 19:16 Urine Blood Neg (Negative) 07/20/18 19:16 Urine Nitrite Neg (Negative) 07/20/18 19:16 Urine Bilirubin Neg (Negative) 07/20/18 19:16 Urine Urobilinogen < 2.0 mg/dL (<2.0) 07/20/18 19:16 Ur Leukocyte Esterase Neg (Negative) 07/20/18 19:16 Urine WBC (Auto) 2.0 /HPF (0.0-6.0) 07/20/18 19:16 Urine RBC (Auto) 3.0 /HPF (0.0-6.0) 07/20/18 19:16 CMV DNA PCR log marble coper/mL See scanned result 07/25/18 04:56 Nutrition/Malnutrition Assess - Dietary Evaluation Nutrition/Malnutrition Findings: Nutrition Notes Start: 07/20/18 14:03 Freq: Status: Active Protocol: Document 07/30/18 11:57 KH (Rec: 07/30/18 12:40 [email or web address]) Co-Sign 07/30/18 11:57 LP Nutrition Notes Initial or Follow up Reassessment Other Pertinent Diagnosis AIDS, dysphagia, oral candidiasis, severe malnutrition Current Diet Regular Diet Labs/Tests Reviewed Pertinent Medications Reviewed Height 5 ft 7 in Weight 52 kg [place] Body Weight (kg) 67.27 BMI 17.9 Subjective/Other Information Pt f/u for PO intakes and Boost intake. Observed ot. breakfast tray with 75% of food eaten. Pt stated he has not had a Boost in a couple of days. Pt. agreed to try Ensure High Protein due to not liking consistency of Ensure Enlive. Percent of energy/protein needs met: 78%/100% Burn Absent Trauma Absent #2 Nutrition Diagnosis Increased nutrient needs ( specify in comment below) Diagnosis Progress(for reassessment Continues documentation) #1 Nutrition Diagnosis Predicted suboptimal energy intake Diagnosis Progress(for reassessment Resolved documentation) Is patient on ventilator? No Is Patient Ambulatory and/or Out of Bed Yes REE-([place]-ambulatory/OOB) [ 1792.219 NUTR.MSJOOB] Kcal/Kg value to use for calculation 43 Approximate Energy Requirements Using 2236 kcal/Kg Calculation Used for Recommendations Kcal/kg Additional Notes Pro needs:65g-78g/day (1.25-1. 5 g/kg BW) Fluid needs: 1 ml/kcal Nutrition Intervention Change Diet Order: Continue Regular Diet Add Supplement/Snack (indicate name/kcal Ensure High Protein /protein ) Provides kCal: 160 Provides Protein (gm) 16 Goal #1 Meet at least 80% of energy protein needs via PO and ONS intakes Anticipated Discharge Needs: Regular Diet with ONS PRN Follow-Up By: 08/03/18 Additional Comments F/u for PO and ONS intakes
[2018-07-31] MEDS: UNASYN/NS 3 GM/100 ML 3 GM/100 ML BAG IV SCH ×4 (00:06→18:10)
[2018-07-31] MEDS: NACL 0.9% IV SCH ×3 (05:46→23:43)
[2018-07-31] MEDS: ZOVIRAX IV SCH ×3 (05:46→23:43)
[2018-07-31 06:55] LABS: Hematocrit 23.2 % (35.5-45.6); Mean Corpuscular HGB Conc 34 % (32-34); Mean Corpuscular Volume 84 fl (84-94); Platelet Count 142 K/mm3 (140-440); Red Blood Count 2.78 M/mm3 (3.65-5.03); Red Cell Distribution Width 16.6 % (13.2-15.2)
[2018-07-31 07:00] LABS: BUN/Creatinine Ratio 13; Blood Urea Nitrogen 9 mg/dL (9-20); Calcium 7.7 mg/dL (8.4-10.2); Hemolysis Index 3
[2018-07-31] MEDS: BACTRIM DS PO SCH (10:43)
[2018-07-31] MEDS: MYCAMINE 100 MG in NACL 0.9% 100 ML IV SCH (10:43)
[2018-07-31] MEDS: PROTONIX PO SCH (10:45)
[2018-07-31] MEDS: MAGIC MOUTHWASH PO SCH ×4 (10:45→23:44)
[2018-07-31] MEDS: PROAMATINE PO SCH (10:45)
[2018-07-31] MEDS: SODIUM CHLORIDE FLUSH SYRINGE 10 ML IV SCH ×2 (10:46→23:44)
[2018-07-31] MEDS ORDERED: NACL 0.9% 1000 ML 1,000 ML IV ONE (14:47)
--- NOTE | 2018-07-31 14:47 | Progress Note ---
Assessment and Plan Assessment and plan: 42 YO Male [facility] Resident at [place] with AIDS with CD4 count of 11 on PCP/MAC Prophylaxis, Oral Candidiasis presents to ED for evaluation. Pt stats that he has experienced weakness and difficulty swallowing over the past 1 week. EMS notified and upon arrival the patient was found to be in distress. Pt transported to [facility] for further care and evaluation. Pt seen and evaluated in ED and found to have AIDS, Dysphagia secondary to Candidia Esophagitis. Pt denies fever, chills, CP, Palpitations, NVD, Trauma, skin rash, hemoptysis, productive cough, medication noncompliance, or recent ill contacts. He was recently discharged from the hospital following prolonged stay and was non complaint with follow up appt. Per Pysch ID input noted AIDS -Outpatient ID F/U care, Continue PCP/MAC prophylaxis, -Patient is on azithromycin and bactrim -Low CD4 count Compliance stressed Diarrhea: Resolved Hypotension: Give some more fluids Dehydration: Continue to rehydrate Severe Malnutrition: Nutrition consult Sepsis: Blood cultures no growth thus far, U/A negative. -Chest Xray - There is mild residual patchy infiltrate in the left lower lobe and lingula. This has decreased by 25-50% since 06/13/18. The remainder of the lungs are clear. - Management per ID Leukopenia: probably related to end stage HIV/AIDS. Poor prognosis DVT/GI prophy Cleared for discharge awaiting insurance History Interval history: Patient is seen today for: SEVERE ORAL CANDIDASIS Seen and examined at bedside; 24hour events reviewed; nursing staff ; no adverse overnight events reported to me; Denies any chest pain, nausea, vomiting, diarrhea Reports tolerating diet. Doubt comprehension of severity of illness No fever noted blood pressure controlled Hospitalist Physical - Physical exam Narrative exam: VITAL SIGNS: Reviewed. GENERAL: The patient appeared Chronically ill, emaciated, anorexic Vital signs as documented. HEAD: No signs of head trauma. EYES: Pupils are equal. Extraocular motions intact. EARS: Hearing grossly intact. MOUTH: severe oral thrush. NECK: No adenopathy, no JVD. CHEST: Chest with clear breath sounds bilaterally. No wheezes, rales, or rhonchi. CARDIAC: Regular rate and rhythm. S1 and S2, without murmurs, gallops, or rubs. VASCULAR: No Edema. Peripheral pulses normal and equal in all extremities. ABDOMEN: Soft, without detectable tenderness. No sign of distention. No rebound or guarding, and no masses palpated. Bowel Sounds normal. MUSCULOSKELETAL: Good range of motion of all major joints. Extremities without clubbing, cyanosis or edema. NEUROLOGIC EXAM: Alert and oriented x 3. lethargic. No focal sensory or strength deficits. Speech normal. Follows commands. PSYCHIATRIC: Mood normal. SKIN: No rash or lesions. - Constitutional Vitals: Temp Pulse Resp BP Pulse Ox 97.7 F 71 20 85/53 100 07/31/18 05:25 07/31/18 06:00 07/31/18 05:25 07/31/18 06:00 07/31/18 06:00 General appearance: Present: mild distress Results - Labs CBC & Chem 7: 07/31/18 Unknown 07/31/18 Unknown Labs: Laboratory Last Values WBC 1.1 K/mm3 (4.5-11.0) L* 07/31/18 Unknown RBC 2.78 M/mm3 (3.65-5.03) L 07/31/18 Unknown Hgb 8.0 gm/dl (11.8-15.2) L 07/31/18 Unknown Hct 23.2 % (35.5-45.6) L 07/31/18 Unknown MCV 84 fl (84-94) 07/31/18 Unknown MCH 29 pg (28-32) 07/31/18 Unknown MCHC 34 % (32-34) 07/31/18 Unknown RDW 16.6 % (13.2-15.2) H 07/31/18 Unknown Plt Count 142 K/mm3 (140-440) 07/31/18 Unknown Lymph % (Auto) 11.7 % (13.4-35.0) L 07/20/18 10:32 [place] % (Auto) 9.8 % (0.0-7.3) H 07/20/18 10:32 Eos % (Auto) 0.1 % (0.0-4.3) 07/20/18 10:32 Baso % (Auto) 0.2 % (0.0-1.8) 07/20/18 10:32 Lymph # 0.3 K/mm3 (1.2-5.4) L 07/20/18 10:32 [place] # 0.3 K/mm3 (0.0-0.8) 07/20/18 10:32 Eos # 0.0 K/mm3 (0.0-0.4) 07/20/18 10:32 Baso # 0.0 K/mm3 (0.0-0.1) 07/20/18 10:32 Add Manual Diff Complete 07/21/18 04:39 Total Counted 50 07/21/18 04:39 Seg Neutrophils % 78.2 % (40.0-70.0) H 07/20/18 10:32 Seg Neuts % (Manual) 88.0 % (40.0-70.0) H 07/21/18 04:39 Band Neutrophils % 4.0 % 07/21/18 04:39 Lymphocytes % (Manual) 4.0 % (13.4-35.0) L 07/21/18 04:39 Reactive Lymphs % (Man) 0 % 07/21/18 04:39 Monocytes % (Manual) 4.0 % (0.0-7.3) 07/21/18 04:39 Eosinophils % (Manual) 0 % (0.0-4.3) 07/21/18 04:39 Basophils % (Manual) 0 % (0.0-1.8) 07/21/18 04:39 Metamyelocytes % 0 % 07/21/18 04:39 Myelocytes % 0 % 07/21/18 04:39 Promyelocytes % 0 % 07/21/18 04:39 Blast Cells % 0 % 07/21/18 04:39 Nucleated RBC % Not Reportable 07/21/18 04:39 Seg Neutrophils # 2.0 K/mm3 (1.8-7.7) 07/20/18 10:32 Seg Neutrophils # Man 2.0 K/mm3 (1.8-7.7) 07/21/18 04:39 Band Neutrophils # 0.1 K/mm3 07/21/18 04:39 Lymphocytes # (Manual) 0.1 K/mm3 (1.2-5.4) L 07/21/18 04:39 Abs React Lymphs (Man) 0.0 K/mm3 07/21/18 04:39 Monocytes # (Manual) 0.1 K/mm3 (0.0-0.8) 07/21/18 04:39 Eosinophils # (Manual) 0.0 K/mm3 (0.0-0.4) 07/21/18 04:39 Basophils # (Manual) 0.0 K/mm3 (0.0-0.1) 07/21/18 04:39 Metamyelocytes # 0.0 K/mm3 07/21/18 04:39 Myelocytes # 0.0 K/mm3 07/21/18 04:39 Promyelocytes # 0.0 K/mm3 07/21/18 04:39 Blast Cells # 0.0 K/mm3 07/21/18 04:39 WBC Morphology Not Reportable 07/21/18 04:39 Hypersegmented Neuts Not Reportable 07/21/18 04:39 Hyposegmented Neuts Not Reportable 07/21/18 04:39 Hypogranular Neuts Not Reportable 07/21/18 04:39 Smudge Cells Not Reportable 07/21/18 04:39 Toxic Granulation Not Reportable 07/21/18 04:39 Toxic Vacuolation Not Reportable 07/21/18 04:39 Dohle Bodies Not Reportable 07/21/18 04:39 Pelger-Huet Anomaly Not Reportable 07/21/18 04:39 Giovanni Rods Not Reportable 07/21/18 04:39 Platelet Estimate Appears normal 07/21/18 04:39 Clumped Platelets Not Reportable 07/21/18 04:39 Plt Clumps, EDTA Not Reportable 07/21/18 04:39 Large Platelets Rare 07/21/18 04:39 Giant Platelets Not Reportable 07/21/18 04:39 Platelet Satelliting Not Reportable 07/21/18 04:39 Plt Morphology Comment Not Reportable 07/21/18 04:39 RBC Morphology Not Reportable 07/21/18 04:39 Dimorphic RBCs Not Reportable 07/21/18 04:39 Polychromasia Not Reportable 07/21/18 04:39 Hypochromasia Not Reportable 07/21/18 04:39 Poikilocytosis 2+ 07/21/18 04:39 Anisocytosis 1+ 07/21/18 04:39 Microcytosis 1+ 07/21/18 04:39 Macrocytosis Not Reportable 07/21/18 04:39 Spherocytes Not Reportable 07/21/18 04:39 Pappenheimer Bodies Not Reportable 07/21/18 04:39 Sickle Cells Not Reportable 07/21/18 04:39 Target Cells Not Reportable 07/21/18 04:39 Tear Drop Cells 1+ 07/21/18 04:39 Ovalocytes 2+ 07/21/18 04:39 Helmet Cells Few 07/21/18 04:39 [place] Bodies Not Reportable 07/21/18 04:39 [place] Rings Not Reportable 07/21/18 04:39 C[place]ya Cells Not Reportable 07/21/18 04:39 Bite Cells Not Reportable 07/21/18 04:39 Crenated Cell Not Reportable 07/21/18 04:39 Elliptocytes 2+ 07/21/18 04:39 Acanthocytes (Spur) Not Reportable 07/21/18 04:39 Rouleaux Not Reportable 07/21/18 04:39 Hemoglobin C Crystals Not Reportable 07/21/18 04:39 Schistocytes Rare 07/21/18 04:39 Malaria parasites Not Reportable 07/21/18 04:39 Carlos A Bodies Not Reportable 07/21/18 04:39 Hem Pathologist Commnt No 07/21/18 04:39 Sodium 136 mmol/L (137-145) L 07/31/18 Unknown Potassium 3.5 mmol/L (3.6-5.0) L 07/31/18 Unknown Chloride 109.1 mmol/L (98-107) H 07/31/18 Unknown Carbon Dioxide 18 mmol/L (22-30) L 07/31/18 Unknown Anion Gap 12 mmol/L 07/31/18 Unknown BUN 9 mg/dL (9-20) 07/31/18 Unknown Creatinine 0.7 mg/dL (0.8-1.5) L 07/31/18 Unknown Estimated GFR > 60 ml/min 07/31/18 Unknown BUN/Creatinine Ratio 13 % 07/31/18 Unknown Glucose 116 mg/dL (75-100) H 07/31/18 Unknown POC Glucose 136 (70-105) H 07/25/18 22:00 Calcium 7.7 mg/dL (8.4-10.2) L 07/31/18 Unknown Total Bilirubin 0.20 mg/dL (0.1-1.2) 07/18/18 14:31 AST 85 units/L (5-40) H 07/18/18 14:31 ALT 55 units/L (7-56) 07/18/18 14:31 Alkaline Phosphatase 141 units/L (35-129) H 07/18/18 14:31 Total Protein 7.9 g/dL (6.3-8.2) 07/18/18 14:31 Albumin 3.7 g/dL (3.9-5) L 07/18/18 14:31 Albumin/Globulin Ratio 0.9 % 07/18/18 14:31 Urine Color Yellow (Yellow) 07/20/18 19:16 Urine Turbidity Clear (Clear) 07/20/18 19:16 Urine pH 7.0 (5.0-7.0) 07/20/18 19:16 Ur Specific [place] 1.008 (1.003-1.030) 07/20/18 19:16 Urine Protein <15 mg/dl mg/dL (Negative) 07/20/18 19:16 Urine Glucose (UA) Neg mg/dL (Negative) 07/20/18 19:16 Urine Ketones Neg mg/dL (Negative) 07/20/18 19:16 Urine Blood Neg (Negative) 07/20/18 19:16 Urine Nitrite Neg (Negative) 07/20/18 19:16 Urine Bilirubin Neg (Negative) 07/20/18 19:16 Urine Urobilinogen < 2.0 mg/dL (<2.0) 07/20/18 19:16 Ur Leukocyte Esterase Neg (Negative) 07/20/18 19:16 Urine WBC (Auto) 2.0 /HPF (0.0-6.0) 07/20/18 19:16 Urine RBC (Auto) 3.0 /HPF (0.0-6.0) 07/20/18 19:16 CMV DNA PCR log helicopter pilot/mL See scanned result 07/25/18 04:56 Nutrition/Malnutrition Assess - Dietary Evaluation Nutrition/Malnutrition Findings: Nutrition Notes Start: 07/20/18 14:03 Freq: Status: Active Protocol: Document 07/30/18 11:57 GABRIEL (Rec: 07/30/18 12:40 [email or web address]) Co-Sign 07/30/18 11:57 LP Nutrition Notes Initial or Follow up Reassessment Other Pertinent Diagnosis AIDS, dysphagia, oral candidiasis, severe malnutrition Current Diet Regular Diet Labs/Tests Reviewed Pertinent Medications Reviewed Height 5 ft 7 in Weight 52 kg [place] Body Weight (kg) 67.27 BMI 17.9 Subjective/Other Information Pt f/u for PO intakes and Boost intake. Observed ot. breakfast tray with 75% of food eaten. Pt stated he has not had a Boost in a couple of days. Pt. agreed to try Ensure High Protein due to not liking consistency of Ensure Enlive. Percent of energy/protein needs met: 78%/100% Burn Absent Trauma Absent #2 Nutrition Diagnosis Increased nutrient needs ( specify in comment below) Diagnosis Progress(for reassessment Continues documentation) #1 Nutrition Diagnosis Predicted suboptimal energy intake Diagnosis Progress(for reassessment Resolved documentation) Is patient on ventilator? No Is Patient Ambulatory and/or Out of Bed Yes REE-([place] or-ambulatory/OOB) [ 1792.219 NUTR.MSJOOB] Kcal/Kg value to use for calculation 43 Approximate Energy Requirements Using 2236 kcal/Kg Calculation Used for Recommendations Kcal/kg Additional Notes Pro needs:65g-78g/day (1.25-1. 5 g/kg BW) Fluid needs: 1 ml/kcal Nutrition Intervention Change Diet Order: Continue Regular Diet Add Supplement/Snack (indicate name/kcal Ensure High Protein /protein ) Provides kCal: 160 Provides Protein (gm) 16 Goal #1 Meet at least 80% of energy protein needs via PO and ONS intakes Anticipated Discharge Needs: Regular Diet with ONS PRN Follow-Up By: 08/03/18 Additional Comments F/u for PO and ONS intakes
[2018-08-01] MEDS: UNASYN/NS 3 GM/100 ML 3 GM/100 ML BAG IV SCH ×5 (00:55→22:46)
[2018-08-01] MEDS: ZOVIRAX IV SCH ×3 (05:08→22:46)
[2018-08-01] MEDS: NACL 0.9% IV SCH ×3 (05:08→22:46)
[2018-08-01] MEDS: MYCAMINE 100 MG in NACL 0.9% 100 ML IV SCH (10:44)
[2018-08-01] MEDS: PROAMATINE PO SCH (10:45)
[2018-08-01] MEDS: SODIUM CHLORIDE FLUSH SYRINGE 10 ML IV SCH ×2 (10:45→22:47)
[2018-08-01] MEDS: SODIUM BICARBONATE PO SCH ×2 (10:45→22:46)
[2018-08-01] MEDS: PROTONIX PO SCH (10:45)
[2018-08-01] MEDS: BACTRIM DS PO SCH (10:45)
[2018-08-01] MEDS: MAGIC MOUTHWASH PO SCH ×4 (10:46→22:47)
[2018-08-01] MEDS: NACL 0.9% 1000 ML 1,000 ML IV SCH (10:58)
--- NOTE | 2018-08-01 11:06 | Progress Note ---
Assessment and Plan Cultures: 07/20/18 Blood: No growth to date 07/20/18 Stool WBC : negative 07/20/18 Crypto: negative 07/20/18 Giardia: negative 07/23/2018 Blood culture: no growth A/P: 42-year-old male known to ID from recent admission on 06/23/18-06/19/18 for community acquired pneumonia, HIV/AIDS, oral candidiasis and diarrhea, now with: 1. 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 Minimal response to flucanazole, hence switched to IV micafungin on 07/23/2018. CT of face and neck also shows small right soft palatine abscess - added Unasyn on 07/24/2018. HSV reactivation cannot be ruled out, hence started acyclovir 07/23/2018- good response to Micafungin, Acyclovir and Unasyn. 2. HIV/AIDS: Last admission in June CD4 count 11. Viral load [id number]. HIV Genotype 111 with NRTI restrictions. Remains non compliant, did not follow up in our clinic as well. Guarded prognosis. CMV negative 3. Diarrhea: Resolved 4. Severe Malnutrition: currently able to tolerate liquids, consider protein supplements. 5. Fevers: Resolved. Blood cultures no growth thus far, U/A negative. Resolved. Likely from untreated HIV/AIDS. 6. Leukopenia: probably related to end stage HIV/AIDS. f/u CMV PCR. Plan: -continue IV Unasyn 3 gm q6 hrs while inpatient, upon discharge, switch to PO Augmentin 875 mg BID -continue Micafungin 100 mg IV q day, will need to continue for 3 weeks ending 08/17/2018 via PICC -continue Acyclovir 400mg IV every 8 hours, upon discharge, switch to PO acyclovir 400 mg TID -continue Azithromycin 1200mg PO q week -Continue Magic mouthwash -Continue Bactrim DS PO every 24 hours -Continue Oral care -Order placed with case management -f/u ID clinic 08-17-18 @ 09:[address] Carranza will be [employer] consultant this weekend, . Please call for questions. [facility] M: [phone] O:[phone] Subjective Date of service: 08/01/18 Principal diagnosis: Candidiasis,AIDS Interval history: Patient seen and examined. Improved oropharyngeal lesions on mouth, tongue and inner jaws. Able to eat and drink without pain. No fevers. Objective - Exam Narrative Exam: Constitutional: Alert, awake, no acute distress. Cachexia Head, Ears, Nose: Normocephalic, atraumatic. External ears, nose normal Eyes: Conjunctivae/corneas clear. No icterus. No ptosis. Neck: Supple, no meningeal signs Oral: dentition poor, + extensive whitish plaque / thrush involving lips, tongue, and oropharynx - improved Cardiovascular: S1, S2 normal. Respiratory: Good air entry, clear to auscultation bilaterally GI: Soft, non-tender; bowel sounds normal. No peritoneal signs Musculoskeletal: No pedal edema, no cyanosis. Skin: No rash or abscess. Hem/Lymphatic: No palpable cervical or supraclavicular nodes. No lymphangitis Psych: affect: ok Neurological: awake, alert - Constitutional Vitals: Vital Signs Temp Pulse Resp BP Pulse Ox 98.8 F 79 16 99/61 100 08/01/18 00:24 08/01/18 00:24 08/01/18 00:24 08/01/18 00:24 08/01/18 00:24 Temperature -Last 24 Hours Temperature 98.8 F Temperature 98.9 F Temperature 97.7 F - Labs CBC & Chem 7: 07/31/18 Unknown 07/31/18 Unknown
--- NOTE | 2018-08-01 11:58 | Progress Note ---
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 Pt stats that he has experienced weakness and difficulty swallowing over the past 1 week. EMS notified and upon arrival the patient was found to be in distress. Pt transported to [facility] for further care and evaluation. Pt seen and evaluated in ED and found to have AIDS, Dysphagia secondary to Candidia Esophagitis. Pt denies fever, chills, CP, Palpitations, NVD, Trauma, skin rash, hemoptysis, productive cough, medication noncompliance, or recent ill contacts. He was recently discharged from the hospital following prolonged stay and was non complaint with follow up appt. Per Pysch ID input noted AIDS -Outpatient ID F/U care, Continue PCP/MAC prophylaxis, -Patient is on azithromycin and bactrim -Low CD4 count Compliance stressed Diarrhea: Resolved Hypotension: Give some more fluids Dehydration: Continue to rehydrate Severe Malnutrition: Nutrition consult Sepsis: Blood cultures no growth thus far, U/A negative. -Chest Xray - There is mild residual patchy infiltrate in the left lower lobe and lingula. This has decreased by 25-50% since 06/13/18. The remainder of the lungs are clear. - Management per ID Leukopenia: probably related to end stage HIV/AIDS. Poor prognosis Nuetropenic precautions DVT/GI prophy Cleared for discharge awaiting insurance History Interval history: Patient is seen today for: SEVERE ORAL CANDIDASIS Seen and examined at bedside; 24hour events reviewed; nursing staff ; no adverse overnight events reported to me; Denies any chest pain, nausea, vomiting, diarrhea Reports tolerating diet. Doubt comprehension of severity of illness No fever noted blood pressure controlled Hospitalist Physical - Physical exam Narrative exam: VITAL SIGNS: Reviewed. GENERAL: The patient appeared Chronically ill, emaciated, anorexic Vital signs as documented. HEAD: No signs of head trauma. EYES: Pupils are equal. Extraocular motions intact. EARS: Hearing grossly intact. MOUTH: severe oral thrush. NECK: No adenopathy, no JVD. CHEST: Chest with clear breath sounds bilaterally. No wheezes, rales, or rhonchi. CARDIAC: Regular rate and rhythm. S1 and S2, without murmurs, gallops, or rubs. VASCULAR: No Edema. Peripheral pulses normal and equal in all extremities. ABDOMEN: Soft, without detectable tenderness. No sign of distention. No rebound or guarding, and no masses palpated. Bowel Sounds normal. MUSCULOSKELETAL: Good range of motion of all major joints. Extremities without clubbing, cyanosis or edema. NEUROLOGIC EXAM: Alert and oriented x 3. lethargic. No focal sensory or strength deficits. Speech normal. Follows commands. PSYCHIATRIC: Mood normal. SKIN: No rash or lesions. - Constitutional Vitals: Temp Pulse Resp BP Pulse Ox 98.8 F 79 16 99/61 100 08/01/18 00:24 08/01/18 00:24 08/01/18 00:24 08/01/18 00:24 08/01/18 00:24 General appearance: Present: mild distress Results - Labs CBC & Chem 7: 07/31/18 Unknown 07/31/18 Unknown Labs: Laboratory Last Values WBC 1.1 K/mm3 (4.5-11.0) L* 07/31/18 Unknown RBC 2.78 M/mm3 (3.65-5.03) L 07/31/18 Unknown Hgb 8.0 gm/dl (11.8-15.2) L 07/31/18 Unknown Hct 23.2 % (35.5-45.6) L 07/31/18 Unknown MCV 84 fl (84-94) 07/31/18 Unknown MCH 29 pg (28-32) 07/31/18 Unknown MCHC 34 % (32-34) 07/31/18 Unknown RDW 16.6 % (13.2-15.2) H 07/31/18 Unknown Plt Count 142 K/mm3 (140-440) 07/31/18 Unknown Lymph % (Auto) 11.7 % (13.4-35.0) L 07/20/18 10:32 [place] % (Auto) 9.8 % (0.0-7.3) H 07/20/18 10:32 Eos % (Auto) 0.1 % (0.0-4.3) 07/20/18 10:32 Baso % (Auto) 0.2 % (0.0-1.8) 07/20/18 10:32 Lymph # 0.3 K/mm3 (1.2-5.4) L 07/20/18 10:32 [place] # 0.3 K/mm3 (0.0-0.8) 07/20/18 10:32 Eos # 0.0 K/mm3 (0.0-0.4) 07/20/18 10:32 Baso # 0.0 K/mm3 (0.0-0.1) 07/20/18 10:32 Add Manual Diff Complete 07/21/18 04:39 Total Counted 50 07/21/18 04:39 Seg Neutrophils % 78.2 % (40.0-70.0) H 07/20/18 10:32 Seg Neuts % (Manual) 88.0 % (40.0-70.0) H 07/21/18 04:39 Band Neutrophils % 4.0 % 07/21/18 04:39 Lymphocytes % (Manual) 4.0 % (13.4-35.0) L 07/21/18 04:39 Reactive Lymphs % (Man) 0 % 07/21/18 04:39 Monocytes % (Manual) 4.0 % (0.0-7.3) 07/21/18 04:39 Eosinophils % (Manual) 0 % (0.0-4.3) 07/21/18 04:39 Basophils % (Manual) 0 % (0.0-1.8) 07/21/18 04:39 Metamyelocytes % 0 % 07/21/18 04:39 Myelocytes % 0 % 07/21/18 04:39 Promyelocytes % 0 % 07/21/18 04:39 Blast Cells % 0 % 07/21/18 04:39 Nucleated RBC % Not Reportable 07/21/18 04:39 Seg Neutrophils # 2.0 K/mm3 (1.8-7.7) 07/20/18 10:32 Seg Neutrophils # Man 2.0 K/mm3 (1.8-7.7) 07/21/18 04:39 Band Neutrophils # 0.1 K/mm3 07/21/18 04:39 Lymphocytes # (Manual) 0.1 K/mm3 (1.2-5.4) L 07/21/18 04:39 Abs React Lymphs (Man) 0.0 K/mm3 07/21/18 04:39 Monocytes # (Manual) 0.1 K/mm3 (0.0-0.8) 07/21/18 04:39 Eosinophils # (Manual) 0.0 K/mm3 (0.0-0.4) 07/21/18 04:39 Basophils # (Manual) 0.0 K/mm3 (0.0-0.1) 07/21/18 04:39 Metamyelocytes # 0.0 K/mm3 07/21/18 04:39 Myelocytes # 0.0 K/mm3 07/21/18 04:39 Promyelocytes # 0.0 K/mm3 07/21/18 04:39 Blast Cells # 0.0 K/mm3 07/21/18 04:39 WBC Morphology Not Reportable 07/21/18 04:39 Hypersegmented Neuts Not Reportable 07/21/18 04:39 Hyposegmented Neuts Not Reportable 07/21/18 04:39 Hypogranular Neuts Not Reportable 07/21/18 04:39 Smudge Cells Not Reportable 07/21/18 04:39 Toxic Granulation Not Reportable 07/21/18 04:39 Toxic Vacuolation Not Reportable 07/21/18 04:39 Dohle Bodies Not Reportable 07/21/18 04:39 Pelger-Huet Anomaly Not Reportable 07/21/18 04:39 Giovanni Rods Not Reportable 07/21/18 04:39 Platelet Estimate Appears normal 07/21/18 04:39 Clumped Platelets Not Reportable 07/21/18 04:39 Plt Clumps, EDTA Not Reportable 07/21/18 04:39 Large Platelets Rare 07/21/18 04:39 Giant Platelets Not Reportable 07/21/18 04:39 Platelet Satelliting Not Reportable 07/21/18 04:39 Plt Morphology Comment Not Reportable 07/21/18 04:39 RBC Morphology Not Reportable 07/21/18 04:39 Dimorphic RBCs Not Reportable 07/21/18 04:39 Polychromasia Not Reportable 07/21/18 04:39 Hypochromasia Not Reportable 07/21/18 04:39 Poikilocytosis 2+ 07/21/18 04:39 Anisocytosis 1+ 07/21/18 04:39 Microcytosis 1+ 07/21/18 04:39 Macrocytosis Not Reportable 07/21/18 04:39 Spherocytes Not Reportable 07/21/18 04:39 Pappenheimer Bodies Not Reportable 07/21/18 04:39 Sickle Cells Not Reportable 07/21/18 04:39 Target Cells Not Reportable 07/21/18 04:39 Tear Drop Cells 1+ 07/21/18 04:39 Ovalocytes 2+ 07/21/18 04:39 Helmet Cells Few 07/21/18 04:39 Holbrook-Dermott Bodies Not Reportable 07/21/18 04:39 [place] Rings Not Reportable 07/21/18 04:39 Cinthya Cells Not Reportable 07/21/18 04:39 Bite Cells Not Reportable 07/21/18 04:39 Crenated Cell Not Reportable 07/21/18 04:39 Elliptocytes 2+ 07/21/18 04:39 Acanthocytes (Spur) Not Reportable 07/21/18 04:39 Rouleaux Not Reportable 07/21/18 04:39 Hemoglobin C Crystals Not Reportable 07/21/18 04:39 Schistocytes Rare 07/21/18 04:39 Malaria parasites Not Reportable 07/21/18 04:39 Carlos A Bodies Not Reportable 07/21/18 04:39 Hem Pathologist Commnt No 07/21/18 04:39 Sodium 136 mmol/L (137-145) L 07/31/18 Unknown Potassium 3.5 mmol/L (3.6-5.0) L 07/31/18 Unknown Chloride 109.1 mmol/L (98-107) H 07/31/18 Unknown Carbon Dioxide 18 mmol/L (22-30) L 07/31/18 Unknown Anion Gap 12 mmol/L 07/31/18 Unknown BUN 9 mg/dL (9-20) 07/31/18 Unknown Creatinine 0.7 mg/dL (0.8-1.5) L 07/31/18 Unknown Estimated GFR > 60 ml/min 07/31/18 Unknown BUN/Creatinine Ratio 13 % 07/31/18 Unknown Glucose 116 mg/dL (75-100) H 07/31/18 Unknown POC Glucose 136 (70-105) H 07/25/18 22:00 Calcium 7.7 mg/dL (8.4-10.2) L 07/31/18 Unknown Total Bilirubin 0.20 mg/dL (0.1-1.2) 07/18/18 14:31 AST 85 units/L (5-40) H 07/18/18 14:31 ALT 55 units/L (7-56) 07/18/18 14:31 Alkaline Phosphatase 141 units/L (35-129) H 07/18/18 14:31 Total Protein 7.9 g/dL (6.3-8.2) 07/18/18 14:31 Albumin 3.7 g/dL (3.9-5) L 07/18/18 14:31 Albumin/Globulin Ratio 0.9 % 07/18/18 14:31 Urine Color Yellow (Yellow) 07/20/18 19:16 Urine Turbidity Clear (Clear) 07/20/18 19:16 Urine pH 7.0 (5.0-7.0) 07/20/18 19:16 Ur Specific [place] 1.008 (1.003-1.030) 07/20/18 19:16 Urine Protein <15 mg/dl mg/dL (Negative) 07/20/18 19:16 Urine Glucose (UA) Neg mg/dL (Negative) 07/20/18 19:16 Urine Ketones Neg mg/dL (Negative) 07/20/18 19:16 Urine Blood Neg (Negative) 07/20/18 19:16 Urine Nitrite Neg (Negative) 07/20/18 19:16 Urine Bilirubin Neg (Negative) 07/20/18 19:16 Urine Urobilinogen < 2.0 mg/dL (<2.0) 07/20/18 19:16 Ur Leukocyte Esterase Neg (Negative) 07/20/18 19:16 Urine WBC (Auto) 2.0 /HPF (0.0-6.0) 07/20/18 19:16 Urine RBC (Auto) 3.0 /HPF (0.0-6.0) 07/20/18 19:16 CMV DNA PCR log [employer]/mL See scanned result 07/25/18 04:56 Nutrition/Malnutrition Assess - Dietary Evaluation Nutrition/Malnutrition Findings: Nutrition Notes Start: 07/20/18 14:03 Freq: Status: Active Protocol: Document 07/30/18 11:57 GABRIEL (Rec: 07/30/18 12:40 [email or web address]) Co-Sign 07/30/18 11:57 LP Nutrition Notes Initial or Follow up Reassessment Other Pertinent Diagnosis AIDS, dysphagia, oral candidiasis, severe malnutrition Current Diet Regular Diet Labs/Tests Reviewed Pertinent Medications Reviewed Height 5 ft 7 in Weight 52 kg [place] Body Weight (kg) 67.27 BMI 17.9 Subjective/Other Information Pt f/u for PO intakes and Boost intake. Observed ot. breakfast tray with 75% of food eaten. Pt stated he has not had a Boost in a couple of days. Pt. agreed to try Ensure High Protein due to not liking consistency of Ensure Enlive. Percent of energy/protein needs met: 78%/100% Burn Absent Trauma Absent #2 Nutrition Diagnosis Increased nutrient needs ( specify in comment below) Diagnosis Progress(for reassessment Continues documentation) #1 Nutrition Diagnosis Predicted suboptimal energy intake Diagnosis Progress(for reassessment Resolved documentation) Is patient on ventilator? No Is Patient Ambulatory and/or Out of Bed Yes REE-(Pratt-St. or-ambulatory/OOB) [ 1792.219 NUTR.MSJOOB] Kcal/Kg value to use for calculation 43 Approximate Energy Requirements Using 2236 kcal/Kg Calculation Used for Recommendations Kcal/kg Additional Notes Pro needs:65g-78g/day (1.25-1. 5 g/kg BW) Fluid needs: 1 ml/kcal Nutrition Intervention Change Diet Order: Continue Regular Diet Add Supplement/Snack (indicate name/kcal Ensure High Protein /protein ) Provides kCal: 160 Provides Protein (gm) 16 Goal #1 Meet at least 80% of energy protein needs via PO and ONS intakes Anticipated Discharge Needs: Regular Diet with ONS PRN Follow-Up By: 08/03/18 Additional Comments F/u for PO and ONS intakes
[2018-08-02] MEDS: UNASYN/NS 3 GM/100 ML 3 GM/100 ML BAG IV SCH ×6 (01:43→23:30)
[2018-08-02] MEDS: NACL 0.9% 1000 ML 1,000 ML IV SCH ×2 (04:02→23:29)
[2018-08-02] MEDS: TYLENOL PO PRN (04:45)
[2018-08-02] MEDS: ZOVIRAX IV SCH ×3 (05:10→21:42)
[2018-08-02] MEDS: NACL 0.9% IV SCH ×3 (05:10→21:42)
[2018-08-02 07:02] LABS: Hematocrit 24.2 % (35.5-45.6); Hemoglobin 8.4 gm/dl (11.8-15.2); Mean Corpuscular HGB Conc 35 % (32-34); Mean Corpuscular Volume 83 fl (84-94); Platelet Count 120 K/mm3 (140-440); Red Cell Distribution Width 16.8 % (13.2-15.2)
[2018-08-02 07:15] LABS: BUN/Creatinine Ratio 9; Blood Urea Nitrogen 6 mg/dL (9-20); Calcium 7.9 mg/dL (8.4-10.2); Hemolysis Index 3
[2018-08-02] MEDS ORDERED: POTASSIUM CHLORIDE PO NR (08:49)
--- NOTE | 2018-08-02 09:34 | Progress Note ---
Assessment and Plan Cultures: 07/20/18 Blood: No growth to date 07/20/18 Stool WBC : negative 07/20/18 Crypto: negative 07/20/18 Giardia: negative 07/23/2018 Blood culture: no growth A/P: 42-year-old male known to ID from recent admission on 06/23/18-06/19/18 for community acquired pneumonia, HIV/AIDS, oral candidiasis and diarrhea, now with: 1. 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 Minimal response to flucanazole, hence switched to IV micafungin on 07/23/2018. CT of face and neck also shows small right soft palatine abscess - added Unasyn on 07/24/2018. HSV reactivation cannot be ruled out, hence started acyclovir 07/23/2018- good response to Micafungin, Acyclovir and Unasyn. 2. HIV/AIDS: Last admission in June CD4 count 11. Viral load [id number]. HIV Genotype 111 with NRTI restrictions. Remains non compliant, did not follow up in our clinic as well. Guarded prognosis. CMV negative 3. Diarrhea: Resolved 4. Severe Malnutrition: currently able to tolerate liquids, consider protein supplements. 5. Fevers: Resolved. Blood cultures no growth thus far, U/A negative. Resolved. Likely from untreated HIV/AIDS. 6. Leukopenia: probably related to end stage HIV/AIDS. f/u CMV PCR. Plan: -continue IV Unasyn 3 gm q6 hrs while inpatient, upon discharge, switch to PO Augmentin 875 mg BID -continue Micafungin 100 mg IV q day, will need to continue for 3 weeks ending 08/17/2018 via PICC -continue Acyclovir 400mg IV every 8 hours, upon discharge, switch to PO acyclovir 400 mg TID -continue Azithromycin 1200mg PO q week -Continue Magic mouthwash -Continue Bactrim DS PO every 24 hours -Order placed with case management -f/u ID clinic 08-17-18 @ 09:20 AM [facility] M: [phone] O:[phone] Subjective Date of service: 08/02/18 Principal diagnosis: Candidiasis,AIDS Interval history: Patient seen and examined. Denied pain, SOB or fevers. Reported generalized w eakness. Objective - Exam Narrative Exam: Constitutional: Alert, awake, generalized weakness. Cachexia Head, Ears, Nose: Normocephalic, atraumatic. External ears, nose normal Eyes: Conjunctivae/corneas clear. No icterus. No ptosis. Neck: Supple, no meningeal signs Oral: dentition poor, minimal thrush observed Cardiovascular: S1, S2 normal. Respiratory: Good air entry, clear to auscultation bilaterally GI: Soft, non-tender; bowel sounds normal. No peritoneal signs Musculoskeletal: No pedal edema, no cyanosis. Skin: No rash or abscess. Hem/Lymphatic: No palpable cervical or supraclavicular nodes. No lymphangitis Psych: affect: ok Neurological: awake, alert - Constitutional Vitals: Vital Signs Temp Pulse Resp BP Pulse Ox 98.6 F 85 18 97/59 98 08/02/18 05:17 08/02/18 05:17 08/02/18 05:17 08/02/18 05:17 08/02/18 05:17 Temperature -Last 24 Hours Temperature 98.6 F Temperature 99.3 F Temperature 98.8 F Temperature 98.3 F - Labs CBC & Chem 7: 08/02/18 06:40 08/02/18 06:40 Labs: Abnormal lab results 08/02/18 08/02/18 Range/Units 06:40 06:40 WBC 1.1 L* (4.5-11.0) K/mm3 RBC 2.90 L (3.65-5.03) M/mm3 Hgb 8.4 L (11.8-15.2) gm/dl Hct 24.2 L (35.5-45.6) % MCV 83 L (84-94) fl MCHC 35 H (32-34) % RDW 16.8 H (13.2-15.2) % Plt Count 120 L (140-440) K/mm3 Potassium 3.4 L (3.6-5.0) mmol/L Chloride 109.6 H (98-107) mmol/L BUN 6 L (9-20) mg/dL Creatinine 0.7 L (0.8-1.5) mg/dL Glucose 104 H (75-100) mg/dL Calcium 7.9 L (8.4-10.2) mg/dL
[2018-08-02] MEDS: BACTRIM DS PO SCH (09:41)
[2018-08-02] MEDS: PROTONIX PO SCH (09:41)
[2018-08-02] MEDS: PROAMATINE PO SCH (09:41)
[2018-08-02] MEDS: SODIUM BICARBONATE PO SCH ×2 (09:41→21:42)
[2018-08-02] MEDS: SODIUM CHLORIDE FLUSH SYRINGE 10 ML IV SCH ×2 (09:42→21:43)
[2018-08-02] MEDS: MAGIC MOUTHWASH PO SCH ×4 (09:52→21:42)
[2018-08-02] MEDS: MYCAMINE 100 MG in NACL 0.9% 100 ML IV SCH (12:38)
--- NOTE | 2018-08-02 22:18 | Progress Note ---
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 Pt stats that he has experienced weakness and difficulty swallowing over the past 1 week. EMS notified and upon arrival the patient was found to be in distress. Pt transported to [facility] for further care and evaluation. Pt seen and evaluated in ED and found to have AIDS, Dysphagia secondary to Candidia Esophagitis. Pt denies fever, chills, CP, Palpitations, NVD, Trauma, skin rash, hemoptysis, productive cough, medication noncompliance, or recent ill contacts. He was recently discharged from the hospital following prolonged stay and was non complaint with follow up appt. Per Pysch ID input noted AIDS -Outpatient ID F/U care, Continue PCP/MAC prophylaxis, -Patient is on azithromycin and bactrim -Low CD4 count -Compliance stressed Diarrhea: Resolved Hypotension: Give some more fluids Dehydration: Continue to rehydrate Severe Malnutrition: Nutrition consult Non compliance: Counselling provided Sepsis: Blood cultures no growth thus far, U/A negative. -Chest Xray - There is mild residual patchy infiltrate in the left lower lobe and lingula. This has decreased by 25-50% since 06/13/18. The remainder of the lungs are clear. - Management per ID Leukopenia: probably related to end stage HIV/AIDS. Poor prognosis Nuetropenic precautions DVT/GI prophy Cleared for discharge awaiting insurance for medication approval History Interval history: Patient is seen today for: SEVERE ORAL CANDIDASIS Seen and examined at bedside; 24hour events reviewed; nursing staff ; no adverse overnight events reported to me; Denies any chest pain, nausea, vomiting, diarrhea Reports tolerating diet. Doubt comprehension of severity of illness No fever noted blood pressure controlled Hospitalist Physical - Physical exam Narrative exam: VITAL SIGNS: Reviewed. GENERAL: The patient appeared Chronically ill, emaciated, anorexic Vital signs as documented. HEAD: No signs of head trauma. EYES: Pupils are equal. Extraocular motions intact. EARS: Hearing grossly intact. MOUTH: severe oral thrush. NECK: No adenopathy, no JVD. CHEST: Chest with clear breath sounds bilaterally. No wheezes, rales, or rhonchi. CARDIAC: Regular rate and rhythm. S1 and S2, without murmurs, gallops, or rubs. VASCULAR: No Edema. Peripheral pulses normal and equal in all extremities. ABDOMEN: Soft, without detectable tenderness. No sign of distention. No rebound or guarding, and no masses palpated. Bowel Sounds normal. MUSCULOSKELETAL: Good range of motion of all major joints. Extremities without clubbing, cyanosis or edema. NEUROLOGIC EXAM: Alert and oriented x 3. lethargic. No focal sensory or strength deficits. Speech normal. Follows commands. PSYCHIATRIC: Mood normal. SKIN: No rash or lesions. - Constitutional Vitals: Temp Pulse Resp BP Pulse Ox 98.5 F 80 20 92/56 98 08/02/18 17:01 08/02/18 17:01 08/02/18 17:01 08/02/18 17:01 08/02/18 17:01 General appearance: Present: mild distress Results - Labs CBC & Chem 7: 08/02/18 06:40 08/02/18 06:40 Labs: Laboratory Last Values WBC 1.1 K/mm3 (4.5-11.0) L* 08/02/18 06:40 RBC 2.90 M/mm3 (3.65-5.03) L 08/02/18 06:40 Hgb 8.4 gm/dl (11.8-15.2) L 08/02/18 06:40 Hct 24.2 % (35.5-45.6) L 08/02/18 06:40 MCV 83 fl (84-94) L 08/02/18 06:40 MCH 29 pg (28-32) 08/02/18 06:40 MCHC 35 % (32-34) H 08/02/18 06:40 RDW 16.8 % (13.2-15.2) H 08/02/18 06:40 Plt Count 120 K/mm3 (140-440) L 08/02/18 06:40 Lymph % (Auto) 11.7 % (13.4-35.0) L 07/20/18 10:32 [place] % (Auto) 9.8 % (0.0-7.3) H 07/20/18 10:32 Eos % (Auto) 0.1 % (0.0-4.3) 07/20/18 10:32 Baso % (Auto) 0.2 % (0.0-1.8) 07/20/18 10:32 Lymph # 0.3 K/mm3 (1.2-5.4) L 07/20/18 10:32 Levy # 0.3 K/mm3 (0.0-0.8) 07/20/18 10:32 Eos # 0.0 K/mm3 (0.0-0.4) 07/20/18 10:32 Baso # 0.0 K/mm3 (0.0-0.1) 07/20/18 10:32 Add Manual Diff Complete 07/21/18 04:39 Total Counted 50 07/21/18 04:39 Seg Neutrophils % 78.2 % (40.0-70.0) H 07/20/18 10:32 Seg Neuts % (Manual) 88.0 % (40.0-70.0) H 07/21/18 04:39 Band Neutrophils % 4.0 % 07/21/18 04:39 Lymphocytes % (Manual) 4.0 % (13.4-35.0) L 07/21/18 04:39 Reactive Lymphs % (Man) 0 % 07/21/18 04:39 Monocytes % (Manual) 4.0 % (0.0-7.3) 07/21/18 04:39 Eosinophils % (Manual) 0 % (0.0-4.3) 07/21/18 04:39 Basophils % (Manual) 0 % (0.0-1.8) 07/21/18 04:39 Metamyelocytes % 0 % 07/21/18 04:39 Myelocytes % 0 % 07/21/18 04:39 Promyelocytes % 0 % 07/21/18 04:39 Blast Cells % 0 % 07/21/18 04:39 Nucleated RBC % Not Reportable 07/21/18 04:39 Seg Neutrophils # 2.0 K/mm3 (1.8-7.7) 07/20/18 10:32 Seg Neutrophils # Man 2.0 K/mm3 (1.8-7.7) 07/21/18 04:39 Band Neutrophils # 0.1 K/mm3 07/21/18 04:39 Lymphocytes # (Manual) 0.1 K/mm3 (1.2-5.4) L 07/21/18 04:39 Abs React Lymphs (Man) 0.0 K/mm3 07/21/18 04:39 Monocytes # (Manual) 0.1 K/mm3 (0.0-0.8) 07/21/18 04:39 Eosinophils # (Manual) 0.0 K/mm3 (0.0-0.4) 07/21/18 04:39 Basophils # (Manual) 0.0 K/mm3 (0.0-0.1) 07/21/18 04:39 Metamyelocytes # 0.0 K/mm3 07/21/18 04:39 Myelocytes # 0.0 K/mm3 07/21/18 04:39 Promyelocytes # 0.0 K/mm3 07/21/18 04:39 Blast Cells # 0.0 K/mm3 07/21/18 04:39 WBC Morphology Not Reportable 07/21/18 04:39 Hypersegmented Neuts Not Reportable 07/21/18 04:39 Hyposegmented Neuts Not Reportable 07/21/18 04:39 Hypogranular Neuts Not Reportable 07/21/18 04:39 Smudge Cells Not Reportable 07/21/18 04:39 Toxic Granulation Not Reportable 07/21/18 04:39 Toxic Vacuolation Not Reportable 07/21/18 04:39 Dohle Bodies Not Reportable 07/21/18 04:39 Pelger-Huet Anomaly Not Reportable 07/21/18 04:39 Giovanni Rods Not Reportable 07/21/18 04:39 Platelet Estimate Appears normal 07/21/18 04:39 Clumped Platelets Not Reportable 07/21/18 04:39 Plt Clumps, EDTA Not Reportable 07/21/18 04:39 Large Platelets Rare 07/21/18 04:39 Giant Platelets Not Reportable 07/21/18 04:39 Platelet Satelliting Not Reportable 07/21/18 04:39 Plt Morphology Comment Not Reportable 07/21/18 04:39 RBC Morphology Not Reportable 07/21/18 04:39 Dimorphic RBCs Not Reportable 07/21/18 04:39 Polychromasia Not Reportable 07/21/18 04:39 Hypochromasia Not Reportable 07/21/18 04:39 Poikilocytosis 2+ 07/21/18 04:39 Anisocytosis 1+ 07/21/18 04:39 Microcytosis 1+ 07/21/18 04:39 Macrocytosis Not Reportable 07/21/18 04:39 Spherocytes Not Reportable 07/21/18 04:39 Pappenheimer Bodies Not Reportable 07/21/18 04:39 Sickle Cells Not Reportable 07/21/18 04:39 Target Cells Not Reportable 07/21/18 04:39 Tear Drop Cells 1+ 07/21/18 04:39 Ovalocytes 2+ 07/21/18 04:39 Helmet Cells Few 07/21/18 04:39 [place] Bodies Not Reportable 07/21/18 04:39 [place] Rings Not Reportable 07/21/18 04:39 [place] Cells Not Reportable 07/21/18 04:39 Bite Cells Not Reportable 07/21/18 04:39 Crenated Cell Not Reportable 07/21/18 04:39 Elliptocytes 2+ 07/21/18 04:39 Acanthocytes (Spur) Not Reportable 07/21/18 04:39 Rouleaux Not Reportable 07/21/18 04:39 Hemoglobin C Crystals Not Reportable 07/21/18 04:39 Schistocytes Rare 07/21/18 04:39 Malaria parasites Not Reportable 07/21/18 04:39 Carlos A Bodies Not Reportable 07/21/18 04:39 Hem Pathologist Commnt No 07/21/18 04:39 Sodium 139 mmol/L (137-145) 08/02/18 06:40 Potassium 3.4 mmol/L (3.6-5.0) L 08/02/18 06:40 Chloride 109.6 mmol/L (98-107) H 08/02/18 06:40 Carbon Dioxide 22 mmol/L (22-30) 08/02/18 06:40 Anion Gap 11 mmol/L 08/02/18 06:40 BUN 6 mg/dL (9-20) L 08/02/18 06:40 Creatinine 0.7 mg/dL (0.8-1.5) L 08/02/18 06:40 Estimated GFR > 60 ml/min 08/02/18 06:40 BUN/Creatinine Ratio 9 % 08/02/18 06:40 Glucose 104 mg/dL (75-100) H 08/02/18 06:40 POC Glucose 136 (70-105) H 07/25/18 22:00 Calcium 7.9 mg/dL (8.4-10.2) L 08/02/18 06:40 Total Bilirubin 0.20 mg/dL (0.1-1.2) 07/18/18 14:31 AST 85 units/L (5-40) H 07/18/18 14:31 ALT 55 units/L (7-56) 07/18/18 14:31 Alkaline Phosphatase 141 units/L (35-129) H 07/18/18 14:31 Total Protein 7.9 g/dL (6.3-8.2) 07/18/18 14:31 Albumin 3.7 g/dL (3.9-5) L 07/18/18 14:31 Albumin/Globulin Ratio 0.9 % 07/18/18 14:31 Urine Color Yellow (Yellow) 07/20/18 19:16 Urine Turbidity Clear (Clear) 07/20/18 19:16 Urine pH 7.0 (5.0-7.0) 07/20/18 19:16 Ur Specific [place] 1.008 (1.003-1.030) 07/20/18 19:16 Urine Protein <15 mg/dl mg/dL (Negative) 07/20/18 19:16 Urine Glucose (UA) Neg mg/dL (Negative) 07/20/18 19:16 Urine Ketones Neg mg/dL (Negative) 07/20/18 19:16 Urine Blood Neg (Negative) 07/20/18 19:16 Urine Nitrite Neg (Negative) 07/20/18 19:16 Urine Bilirubin Neg (Negative) 07/20/18 19:16 Urine Urobilinogen < 2.0 mg/dL (<2.0) 07/20/18 19:16 Ur Leukocyte Esterase Neg (Negative) 07/20/18 19:16 Urine WBC (Auto) 2.0 /HPF (0.0-6.0) 07/20/18 19:16 Urine RBC (Auto) 3.0 /HPF (0.0-6.0) 07/20/18 19:16 CMV DNA PCR log copy messenger/mL See scanned result 07/25/18 04:56 Nutrition/Malnutrition Assess - Dietary Evaluation Nutrition/Malnutrition Findings: Nutrition Notes Start: 07/20/18 14:03 Freq: Status: Active Protocol: Document 07/30/18 11:57 GABRIEL (Rec: 07/30/18 12:40 KH [email or web address]) Co-Sign 07/30/18 11:57 LP Nutrition Notes Initial or Follow up Reassessment Other Pertinent Diagnosis AIDS, dysphagia, oral candidiasis, severe malnutrition Current Diet Regular Diet Labs/Tests Reviewed Pertinent Medications Reviewed Height 5 ft 7 in Weight 52 kg [place] Body Weight (kg) 67.27 BMI 17.9 Subjective/Other Information Pt f/u for PO intakes and Boost intake. Observed ot. breakfast tray with 75% of food eaten. Pt stated he has not had a Boost in a couple of days. Pt. agreed to try Ensure High Protein due to not liking consistency of Ensure Enlive. Percent of energy/protein needs met: 78%/100% Burn Absent Trauma Absent #2 Nutrition Diagnosis Increased nutrient needs ( specify in comment below) Diagnosis Progress(for reassessment Continues documentation) #1 Nutrition Diagnosis Predicted suboptimal energy intake Diagnosis Progress(for reassessment Resolved documentation) Is patient on ventilator? No Is Patient Ambulatory and/or Out of Bed Yes REE-([place]-St. Jeor-ambulatory/OOB) [ 1792.219 NUTR.MSJOOB] Kcal/Kg value to use for calculation 43 Approximate Energy Requirements Using 2236 kcal/Kg Calculation Used for Recommendations Kcal/kg Additional Notes Pro needs:65g-78g/day (1.25-1. 5 g/kg BW) Fluid needs: 1 ml/kcal Nutrition Intervention Change Diet Order: Continue Regular Diet Add Supplement/Snack (indicate name/kcal Ensure High Protein /protein ) Provides kCal: 160 Provides Protein (gm) 16 Goal #1 Meet at least 80% of energy protein needs via PO and ONS intakes Anticipated Discharge Needs: Regular Diet with ONS PRN Follow-Up By: 08/03/18 Additional Comments F/u for PO and ONS intakes
[2018-08-03] MEDS: ZOVIRAX IV SCH ×3 (05:04→21:20)
[2018-08-03] MEDS: NACL 0.9% IV SCH ×3 (05:04→21:20)
[2018-08-03] MEDS: UNASYN/NS 3 GM/100 ML 3 GM/100 ML BAG IV SCH ×3 (05:04→18:03)
[2018-08-03] MEDS: TYLENOL PO PRN ×2 (05:10→21:21)
[2018-08-03] MEDS: PROTONIX PO SCH (09:26)
[2018-08-03] MEDS: PROAMATINE PO SCH (09:26)
[2018-08-03] MEDS: SODIUM BICARBONATE PO SCH ×2 (09:26→21:20)
[2018-08-03] MEDS: BACTRIM DS PO SCH (09:26)
[2018-08-03] MEDS: MYCAMINE 100 MG in NACL 0.9% 100 ML IV SCH (09:27)
[2018-08-03] MEDS: SODIUM CHLORIDE FLUSH SYRINGE 10 ML IV SCH ×2 (09:27→21:21)
[2018-08-03] MEDS: MAGIC MOUTHWASH PO SCH ×4 (09:37→21:20)
--- NOTE | 2018-08-03 09:52 | Progress Note ---
Assessment and Plan Cultures: 07/20/18 Blood: No growth to date 07/20/18 Stool WBC : negative 07/20/18 Crypto: negative 07/20/18 Giardia: negative 07/23/2018 Blood culture: no growth A/P: 42-year-old male known to ID from recent admission on 06/23/18-06/19/18 for community acquired pneumonia, HIV/AIDS, oral candidiasis and diarrhea, now with: 1. 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 Minimal response to flucanazole, hence switched to IV micafungin on 07/23/2018. CT of face and neck also shows small right soft palatine abscess - added Unasyn on 07/24/2018. HSV reactivation cannot be ruled out, hence started acyclovir 07/23/2018- good response to Micafungin, Acyclovir and Unasyn. 2. HIV/AIDS: Last admission in June CD4 count 11. Viral load [id number]. HIV Genotype 111 with NRTI restrictions. Remains non compliant, did not follow up in our clinic as well. Guarded prognosis. CMV negative 3. Diarrhea: Resolved 4. Severe Malnutrition: currently able to tolerate liquids, consider protein supplements. 5. Fevers: Resolved. Blood cultures no growth thus far, U/A negative. Resolved. Likely from untreated HIV/AIDS. 6. Leukopenia: probably related to end stage HIV/AIDS. f/u CMV PCR. Plan: -continue IV Unasyn 3 gm q6 hrs while inpatient, upon discharge, switch to PO Augmentin 875 mg BID -continue Micafungin 100 mg IV q day, will need to continue for 3 weeks ending 08/17/2018 via PICC -continue Acyclovir 400mg IV every 8 hours, upon discharge, switch to PO acyclovir 400 mg TID -continue Azithromycin 1200mg PO q week -Continue Magic mouthwash -Continue Bactrim DS PO every 24 hours -Order placed with case management -f/u ID clinic 08-17-18 @ 09:20 AM -If unable to place in SNF for opat, may discharge with Posaconazole delayed- release 300mg PO BID times one day, then 300mg PO qday until 08/17/18 -Prescriptions on the chart, discussed with case management. Dee Vyas NP [facility] M: [phone] O:[phone] Subjective Date of service: 08/03/18 Principal diagnosis: Candidiasis,AIDS Interval history: Patient seen and examined. Denied pain, SOB or fevers. Reported generalized weakness. Objective - Exam Narrative Exam: Constitutional: Alert, awake, generalized weakness. Cachexia Head, Ears, Nose: Normocephalic, atraumatic. External ears, nose normal Eyes: Conjunctivae/corneas clear. No icterus. No ptosis. Neck: Supple, no meningeal signs Oral: dentition poor, minimal thrush observed Cardiovascular: S1, S2 normal. Respiratory: Good air entry, clear to auscultation bilaterally GI: Soft, non-tender; bowel sounds normal. No peritoneal signs Musculoskeletal: No pedal edema, no cyanosis. Skin: No rash or abscess. Hem/Lymphatic: No palpable cervical or supraclavicular nodes. No lymphangitis Psych: affect: ok Neurological: awake, alert - Constitutional Vitals: Vital Signs Temp Pulse Resp BP Pulse Ox 99.0 F 96 H 18 97/65 99 08/03/18 05:23 08/03/18 05:23 08/03/18 05:23 08/03/18 05:23 08/03/18 05:23 Temperature -Last 24 Hours Temperature 99.0 F Temperature 98.9 F Temperature 98.5 F Temperature 98.4 F - Labs CBC & Chem 7: 08/02/18 06:40 08/02/18 06:40
--- NOTE | 2018-08-03 10:04 | Progress Note ---
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 Pt stats that he has experienced weakness and difficulty swallowing over the past 1 week. EMS notified and upon arrival the patient was found to be in distress. Pt transported to [facility] for further care and evaluation. Pt seen and evaluated in ED and found to have AIDS, Dysphagia secondary to Candidia Esophagitis. Pt denies fever, chills, CP, Palpitations, NVD, Trauma, skin rash, hemoptysis, productive cough, medication noncompliance, or recent ill contacts. He was recently discharged from the hospital following prolonged stay and was non complaint with follow up appt. ID input noted AIDS -Outpatient ID F/U care, Continue PCP/MAC prophylaxis, -Patient is on azithromycin and bactrim -Low CD4 count -Compliance stressed Diarrhea: Resolved Hypotension: Give some more fluids Dehydration: Continue to rehydrate Severe Malnutrition: Nutrition consult Non compliance: Counselling provided Sepsis: Blood cultures no growth thus far, U/A negative. -Chest Xray - There is mild residual patchy infiltrate in the left lower lobe and lingula. This has decreased by 25-50% since 06/13/18. - Management per ID Leukopenia: probably related to end stage HIV/AIDS. Poor prognosis Nuetropenic precautions DVT/GI prophy Cleared for discharge awaiting insurance for medication approval History Interval history: Feels better Less gen weakness No pain currently Hospitalist Physical - Physical exam Narrative exam: GEN: Not in acute distress, lying in bed HEENT: Normocephalic, atraumatic, Neck: supple, No JVD Lungs: Clear to auscultation bilaterally, no crackles or wheeze Heart:S1 and S2 regular, no murmurs, rubs or gallop, Abd:soft, non tender, non distended, normal bowel sounds Ext: No edema, no clubbing or cyanosis Neuro:Awake,alert, moves all ext - Constitutional Vitals: Temp Pulse Resp BP Pulse Ox 99.0 F 96 H 18 97/65 99 08/03/18 05:23 08/03/18 05:23 08/03/18 05:23 08/03/18 05:23 08/03/18 05:23 Results - Labs CBC & Chem 7: 08/04/18 Unknown 08/04/18 Unknown Labs: Laboratory Last Values WBC 1.1 K/mm3 (4.5-11.0) L* 08/02/18 06:40 RBC 2.90 M/mm3 (3.65-5.03) L 08/02/18 06:40 Hgb 8.4 gm/dl (11.8-15.2) L 08/02/18 06:40 Hct 24.2 % (35.5-45.6) L 08/02/18 06:40 MCV 83 fl (84-94) L 08/02/18 06:40 MCH 29 pg (28-32) 08/02/18 06:40 MCHC 35 % (32-34) H 08/02/18 06:40 RDW 16.8 % (13.2-15.2) H 08/02/18 06:40 Plt Count 120 K/mm3 (140-440) L 08/02/18 06:40 Lymph % (Auto) 11.7 % (13.4-35.0) L 07/20/18 10:32 [place] % (Auto) 9.8 % (0.0-7.3) H 07/20/18 10:32 Eos % (Auto) 0.1 % (0.0-4.3) 07/20/18 10:32 Baso % (Auto) 0.2 % (0.0-1.8) 07/20/18 10:32 Lymph # 0.3 K/mm3 (1.2-5.4) L 07/20/18 10:32 [place] # 0.3 K/mm3 (0.0-0.8) 07/20/18 10:32 Eos # 0.0 K/mm3 (0.0-0.4) 07/20/18 10:32 Baso # 0.0 K/mm3 (0.0-0.1) 07/20/18 10:32 Add Manual Diff Complete 07/21/18 04:39 Total Counted 50 07/21/18 04:39 Seg Neutrophils % 78.2 % (40.0-70.0) H 07/20/18 10:32 Seg Neuts % (Manual) 88.0 % (40.0-70.0) H 07/21/18 04:39 Band Neutrophils % 4.0 % 07/21/18 04:39 Lymphocytes % (Manual) 4.0 % (13.4-35.0) L 07/21/18 04:39 Reactive Lymphs % (Man) 0 % 07/21/18 04:39 Monocytes % (Manual) 4.0 % (0.0-7.3) 07/21/18 04:39 Eosinophils % (Manual) 0 % (0.0-4.3) 07/21/18 04:39 Basophils % (Manual) 0 % (0.0-1.8) 07/21/18 04:39 Metamyelocytes % 0 % 07/21/18 04:39 Myelocytes % 0 % 07/21/18 04:39 Promyelocytes % 0 % 07/21/18 04:39 Blast Cells % 0 % 07/21/18 04:39 Nucleated RBC % Not Reportable 07/21/18 04:39 Seg Neutrophils # 2.0 K/mm3 (1.8-7.7) 07/20/18 10:32 Seg Neutrophils # Man 2.0 K/mm3 (1.8-7.7) 07/21/18 04:39 Band Neutrophils # 0.1 K/mm3 07/21/18 04:39 Lymphocytes # (Manual) 0.1 K/mm3 (1.2-5.4) L 07/21/18 04:39 Abs React Lymphs (Man) 0.0 K/mm3 07/21/18 04:39 Monocytes # (Manual) 0.1 K/mm3 (0.0-0.8) 07/21/18 04:39 Eosinophils # (Manual) 0.0 K/mm3 (0.0-0.4) 07/21/18 04:39 Basophils # (Manual) 0.0 K/mm3 (0.0-0.1) 07/21/18 04:39 Metamyelocytes # 0.0 K/mm3 07/21/18 04:39 Myelocytes # 0.0 K/mm3 07/21/18 04:39 Promyelocytes # 0.0 K/mm3 07/21/18 04:39 Blast Cells # 0.0 K/mm3 07/21/18 04:39 WBC Morphology Not Reportable 07/21/18 04:39 Hypersegmented Neuts Not Reportable 07/21/18 04:39 Hyposegmented Neuts Not Reportable 07/21/18 04:39 Hypogranular Neuts Not Reportable 07/21/18 04:39 Smudge Cells Not Reportable 07/21/18 04:39 Toxic Granulation Not Reportable 07/21/18 04:39 Toxic Vacuolation Not Reportable 07/21/18 04:39 Dohle Bodies Not Reportable 07/21/18 04:39 Pelger-Huet Anomaly Not Reportable 07/21/18 04:39 Giovanni Rods Not Reportable 07/21/18 04:39 Platelet Estimate Appears normal 07/21/18 04:39 Clumped Platelets Not Reportable 07/21/18 04:39 Plt Clumps, EDTA Not Reportable 07/21/18 04:39 Large Platelets Rare 07/21/18 04:39 Giant Platelets Not Reportable 07/21/18 04:39 Platelet Satelliting Not Reportable 07/21/18 04:39 Plt Morphology Comment Not Reportable 07/21/18 04:39 RBC Morphology Not Reportable 07/21/18 04:39 Dimorphic RBCs Not Reportable 07/21/18 04:39 Polychromasia Not Reportable 07/21/18 04:39 Hypochromasia Not Reportable 07/21/18 04:39 Poikilocytosis 2+ 07/21/18 04:39 Anisocytosis 1+ 07/21/18 04:39 Microcytosis 1+ 07/21/18 04:39 Macrocytosis Not Reportable 07/21/18 04:39 Spherocytes Not Reportable 07/21/18 04:39 Pappenheimer Bodies Not Reportable 07/21/18 04:39 Sickle Cells Not Reportable 07/21/18 04:39 Target Cells Not Reportable 07/21/18 04:39 Tear Drop Cells 1+ 07/21/18 04:39 Ovalocytes 2+ 07/21/18 04:39 Helmet Cells Few 07/21/18 04:39 [place] Bodies Not Reportable 07/21/18 04:39 [place] Rings Not Reportable 07/21/18 04:39 [place] Cells Not Reportable 07/21/18 04:39 Bite Cells Not Reportable 07/21/18 04:39 Crenated Cell Not Reportable 07/21/18 04:39 Elliptocytes 2+ 07/21/18 04:39 Acanthocytes (Spur) Not Reportable 07/21/18 04:39 Rouleaux Not Reportable 07/21/18 04:39 Hemoglobin C Crystals Not Reportable 07/21/18 04:39 Schistocytes Rare 07/21/18 04:39 Malaria parasites Not Reportable 07/21/18 04:39 Carlos A Bodies Not Reportable 07/21/18 04:39 Hem Pathologist Commnt No 07/21/18 04:39 Sodium 139 mmol/L (137-145) 08/02/18 06:40 Potassium 3.4 mmol/L (3.6-5.0) L 08/02/18 06:40 Chloride 109.6 mmol/L (98-107) H 08/02/18 06:40 Carbon Dioxide 22 mmol/L (22-30) 08/02/18 06:40 Anion Gap 11 mmol/L 08/02/18 06:40 BUN 6 mg/dL (9-20) L 08/02/18 06:40 Creatinine 0.7 mg/dL (0.8-1.5) L 08/02/18 06:40 Estimated GFR > 60 ml/min 08/02/18 06:40 BUN/Creatinine Ratio 9 % 08/02/18 06:40 Glucose 104 mg/dL (75-100) H 08/02/18 06:40 POC Glucose 136 (70-105) H 07/25/18 22:00 Calcium 7.9 mg/dL (8.4-10.2) L 08/02/18 06:40 Total Bilirubin 0.20 mg/dL (0.1-1.2) 07/18/18 14:31 AST 85 units/L (5-40) H 07/18/18 14:31 ALT 55 units/L (7-56) 07/18/18 14:31 Alkaline Phosphatase 141 units/L (35-129) H 07/18/18 14:31 Total Protein 7.9 g/dL (6.3-8.2) 07/18/18 14:31 Albumin 3.7 g/dL (3.9-5) L 07/18/18 14:31 Albumin/Globulin Ratio 0.9 % 07/18/18 14:31 Urine Color Yellow (Yellow) 07/20/18 19:16 Urine Turbidity Clear (Clear) 07/20/18 19:16 Urine pH 7.0 (5.0-7.0) 07/20/18 19:16 Ur Specific [place] 1.008 (1.003-1.030) 07/20/18 19:16 Urine Protein <15 mg/dl mg/dL (Negative) 07/20/18 19:16 Urine Glucose (UA) Neg mg/dL (Negative) 07/20/18 19:16 Urine Ketones Neg mg/dL (Negative) 07/20/18 19:16 Urine Blood Neg (Negative) 07/20/18 19:16 Urine Nitrite Neg (Negative) 07/20/18 19:16 Urine Bilirubin Neg (Negative) 07/20/18 19:16 Urine Urobilinogen < 2.0 mg/dL (<2.0) 07/20/18 19:16 Ur Leukocyte Esterase Neg (Negative) 07/20/18 19:16 Urine WBC (Auto) 2.0 /HPF (0.0-6.0) 07/20/18 19:16 Urine RBC (Auto) 3.0 /HPF (0.0-6.0) 07/20/18 19:16 CMV DNA PCR log presidential helicopter crew chief/mL See scanned result 07/25/18 04:56 Nutrition/Malnutrition Assess - Dietary Evaluation Nutrition/Malnutrition Findings: Nutrition Notes Start: 07/20/18 14:03 Freq: Status: Active Protocol: Document 07/30/18 11:57 (Rec: 07/30/18 12:40 [email or web address]) Co-Sign 07/30/18 11:57 LP Nutrition Notes Initial or Follow up Reassessment Other Pertinent Diagnosis AIDS, dysphagia, oral candidiasis, severe malnutrition Current Diet Regular Diet Labs/Tests Reviewed Pertinent Medications Reviewed Height 5 ft 7 in Weight 52 kg [place] Body Weight (kg) 67.27 BMI 17.9 Subjective/Other Information Pt f/u for PO intakes and Boost intake. Observed ot. breakfast tray with 75% of food eaten. Pt stated he has not had a Boost in a couple of days. Pt. agreed to try Ensure High Protein due to not liking consistency of Ensure Enlive. Percent of energy/protein needs met: 78%/100% Burn Absent Trauma Absent #2 Nutrition Diagnosis Increased nutrient needs ( specify in comment below) Diagnosis Progress(for reassessment Continues documentation) #1 Nutrition Diagnosis Predicted suboptimal energy intake Diagnosis Progress(for reassessment Resolved documentation) Is patient on ventilator? No Is Patient Ambulatory and/or Out of Bed Yes REE-([place]-St. Jeor-ambulatory/OOB) [ 1792.219 NUTR.MSJOOB] Kcal/Kg value to use for calculation 43 Approximate Energy Requirements Using 2236 kcal/Kg Calculation Used for Recommendations Kcal/kg Additional Notes Pro needs:65g-78g/day (1.25-1. 5 g/kg BW) Fluid needs: 1 ml/kcal Nutrition Intervention Change Diet Order: Continue Regular Diet Add Supplement/Snack (indicate name/kcal Ensure High Protein /protein ) Provides kCal: 160 Provides Protein (gm) 16 Goal #1 Meet at least 80% of energy protein needs via PO and ONS intakes Anticipated Discharge Needs: Regular Diet with ONS PRN Follow-Up By: 08/03/18 Additional Comments F/u for PO and ONS intakes
[2018-08-03] MEDS ORDERED: ZITHROMAX PO SCH (12:00)
[2018-08-03] MEDS: NACL 0.9% 1000 ML 1,000 ML IV SCH (22:39)
[2018-08-04] MEDS: UNASYN/NS 3 GM/100 ML 3 GM/100 ML BAG IV SCH ×3 (00:27→12:00)
[2018-08-04] MEDS: NACL 0.9% IV SCH ×2 (05:13→14:15)
[2018-08-04] MEDS: ZOVIRAX IV SCH ×2 (05:13→14:15)
[2018-08-04 08:04] LABS: Hematocrit 24.3 % (35.5-45.6); Hemoglobin 8.2 gm/dl (11.8-15.2); Mean Corpuscular HGB Conc 34 % (32-34); Mean Corpuscular Volume 84 fl (84-94); Red Cell Distribution Width 17.4 % (13.2-15.2)
[2018-08-04 08:12] LABS: Platelet Count 99 K/mm3 (140-440)
[2018-08-04 08:13] LABS: BUN/Creatinine Ratio 26; Blood Urea Nitrogen 13 mg/dL (9-20); Calcium 8.2 mg/dL (8.4-10.2); Hemolysis Index 37
--- NOTE | 2018-08-04 09:07 | Progress Note ---
Assessment and Plan Cultures: 07/20/18 Blood: No growth to date 07/20/18 Stool WBC : negative 07/20/18 Crypto: negative 07/20/18 Giardia: negative 07/23/2018 Blood culture: no growth A/P: 42-year-old male known to ID from recent admission on 06/23/18-06/19/18 for community acquired pneumonia, HIV/AIDS, oral candidiasis and diarrhea, now with: 1. 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 Minimal response to flucanazole, hence switched to IV micafungin on 07/23/2018. CT of face and neck also shows small right soft palatine abscess - added Unasyn on 07/24/2018. HSV reactivation cannot be ruled out, hence started acyclovir 07/23/2018- good response to Micafungin, Acyclovir and Unasyn. 2. HIV/AIDS: Last admission in June CD4 count 11. Viral load [id number]. HIV Genotype 111 with NRTI restrictions. Remains non compliant, did not follow up in our clinic as well. Guarded prognosis. CMV negative 3. Diarrhea: Resolved 4. Severe Malnutrition: currently able to tolerate liquids, consider protein supplements. 5. Fevers: Resolved. Blood cultures no growth thus far, U/A negative. Resolved. Likely from untreated HIV/AIDS. 6. Leukopenia: probably related to end stage HIV/AIDS. f/u CMV PCR. Plan: -discontinue Unysyn Continue Micafungin while inpatient -continue Acyclovir 400mg IV every 8 hours while inpatient -continue Azithromycin 1200mg PO q week while inpatient -Continue Magic mouthwash -Continue Bactrim DS PO every 24 hours D/C PICC line prior to discharge ok to discharge on PO acyclovir 400 mg TID, Azithromycin 1200mg PO q week, B actrim DS PO every 24 hours - 30 day RX on chart discharge with Posaconazole delayed-release 300mg PO BID times one day, then 300mg PO qday until 08/17/18 Prescriptions on the chart, discussed with case management. will follow up with [facility] -Oswaldo Andrade -f/u ID clinic 08-17-18 @ 09:20 AM - [facility] M: [phone] O:[phone] Subjective Date of service: 08/04/18 Principal diagnosis: Candidiasis,AIDS Interval history: Patient seen and examined. Denied pain, SOB or fevers. Discussion about going home on PO medications. Explained the importance of adherence to medication regimen, verbalized understanding. Will follow up at [facility] for HIV medication. Objective - Exam Narrative Exam: Constitutional: Alert, awake, generalized weakness. Cachexia Head, Ears, Nose: Normocephalic, atraumatic. External ears, nose normal Eyes: Conjunctivae/corneas clear. No icterus. No ptosis. Neck: Supple, no meningeal signs Oral: dentition poor, minimal thrush observed Cardiovascular: S1, S2 normal. Respiratory: Good air entry, clear to auscultation bilaterally GI: Soft, non-tender; bowel sounds normal. No peritoneal signs Musculoskeletal: No pedal edema, no cyanosis. Skin: No rash or abscess. Hem/Lymphatic: No palpable cervical or supraclavicular nodes. No lymphangitis Psych: affect: ok Neurological: awake, alert - Constitutional Vitals: Vital Signs Temp Pulse Resp BP Pulse Ox 98.7 F 79 20 108/61 98 08/04/18 05:27 08/04/18 05:33 08/04/18 05:33 08/04/18 05:33 08/04/18 05:33 Temperature -Last 24 Hours Temperature 98.7 F Temperature 98.4 F Temperature 97.5 F Temperature 97.8 F - Labs CBC & Chem 7: 08/04/18 Unknown 08/04/18 Unknown Labs: Abnormal lab results 08/04/18 08/04/18 Range/Units Unknown Unknown WBC 1.1 L* (4.5-11.0) K/mm3 RBC 2.90 L (3.65-5.03) M/mm3 Hgb 8.2 L (11.8-15.2) gm/dl Hct 24.3 L (35.5-45.6) % RDW 17.4 H (13.2-15.2) % Plt Count 99 L (140-440) K/mm3 Chloride 111.4 H (98-107) mmol/L Creatinine 0.5 L (0.8-1.5) mg/dL Calcium 8.2 L (8.4-10.2) mg/dL
[2018-08-04] MEDS: MYCAMINE 100 MG in NACL 0.9% 100 ML IV SCH (10:57)
[2018-08-04] MEDS: SODIUM BICARBONATE PO SCH (10:57)
[2018-08-04] MEDS: BACTRIM DS PO SCH (10:57)
[2018-08-04] MEDS: MAGIC MOUTHWASH PO SCH ×3 (10:57→17:16)
[2018-08-04] MEDS: PROTONIX PO SCH (10:57)
[2018-08-04] MEDS: SODIUM CHLORIDE FLUSH SYRINGE 10 ML IV SCH (10:58)
[2018-08-04] MEDS: PROAMATINE PO SCH (10:58)
--- NOTE | 2018-08-04 12:36 | Discharge Summary ---
Providers - Providers Date of Admission: 07/18/18 16:26 Date of discharge: 08/04/18 Attending physician: BRITTANI BORGES 07/18/18 19:57 Consult to Physician [CONS] Routine Comment: Consulting Provider: DILLON BORDEN Physician Instructions: Reason For Exam: Aids 07/27/18 15:50 Consult to Case Management [CONS] Urgent Services Needed at Discharge: Home Health Services Notified:: yes Additional Physician Instructions: [facility] M [phone] O [phone] F [phone] OUTPATIENT PARENTERAL ANTIBIOTIC THERAPY ORDERS Diagnoses: Carolann Esophagitis/Small soft palate abscess Antimicrobial administration: upon discharge will do Micafungin 100mg IV q day ending 08-17-18 F/u appointment 08-17-18 @ 9:20 a.m. Remove PICC line after last dose unless otherwise instructed. Lines: PICC Lab monitoring: CBC, BUN, Creatinine, ALT, AST, once a week preferly on Thursday morning. Please fax results to [phone] and call [phone] for critical lab results. Dee Vyas NP/ Dr. Martinez Date: 07/27/18 07/27/18 15:54 PICC Line Placement [Consult to PICC Line RN] [CONS] Urgent Reason For Exam: out patient antibiotic therapy Type Line:: PICC Primary care physician: INDUSTRIAL DESIGN ENGINEER Hospitalization Condition: Stable Hospital course: Patient is 42 YO Male Long-Term Resident at [facility] with AIDS with CD4 count of 11 on PCP/MAC Prophylaxis, Oral Candidiasis presents to ED for evaluation. Pt stats that he has experienced weakness and difficulty swallowing over the past 1 week. EMS notified and upon arrival the patient was found to be in distress. Pt transported to [facility] for further care and evaluation. Pt seen and evaluated in ED and found to have AIDS, Dysphagia secondary to oral candidiasis. Patient was admitted, evaluated by ID Physician. He was diagnosed with sepsis. Leukopenia, was having fevers. CT showed abscess in palate. He was on Micafungin, Acyclovir and Unasyn. He improved very slowly. Initial plan was to discharge to SNF but he was not accepted. he was therefore discharged home on Posaconazole and Acyclovir, Bactrim and Azithromycin. Total time spent on discharge 34 mins Disposition: DC- TO HOME OR SELFCARE - Discharge Diagnoses (1) Sepsis Status: Acute (2) AIDS Status: Acute (3) Dehydration Status: Acute (4) Oral candidiasis Status: Acute (5) Pneumonia Status: Acute Qualifiers: Pneumonia type: due to unspecified organism Laterality: left Lung location: lower lobe of lung Qualified Code(s): J18.1 - Lobar pneumonia, unspecified organism (6) Severe malnutrition Status: Acute (7) Volume depletion Status: Acute Core Measure Documentation - Palliative Care Palliative Care/ Comfort Measures: Not Applicable - Core Measures Any of the following diagnoses?: none Exam - Constitutional Vitals: Temp Pulse Resp BP Pulse Ox 98.7 F 79 20 108/61 98 08/04/18 05:27 08/04/18 05:33 08/04/18 05:33 08/04/18 05:33 08/04/18 05:33 Plan Activity: advance as tolerated Diet: regular Special Instructions: home health RN Additional Instructions: 1.Follow up with PCP or [facility] in 1 week. 2.Follow up with Dr. Martinez on 08/17/18 at 9:20am Follow up with: your, ID doctor [Other] - 3-5 Days HAILEY MARTINEZ MD [Staff Physician] - 08/17/18 9:20 am ELDER WILSON MD [Staff Physician] - 3-5 Days Prescriptions: Sulfamethoxazole/Trimethoprim [Bactrim DS TAB] 1 each PO QDAY 30 Days #30 tablet RX: Loperamide [Imodium] 2 mg PO Q2H PRN #30 capsule PRN Reason: Diarrhea RX: Nystas/Diphen/Xyl Visc/Mylanta [Magic Mouthwash] 15 ml PO TID 14 Days oral.liqd RX: Nystas/Diphen/Xyl Visc/Mylanta [Magic Mouthwash] 15 ml PO TID 30 Days #1 udc RX: Midodrine HCl 2.5 mg PO DAILY #30 tablet RX: Posaconazole [Noxafil] 300 mg PO BID 1 Days #6 tablet. RX: Posaconazole [Noxafil] 300 mg PO QDAY 13 Days #39 tablet. RX: Azithromycin [Zithromax TAB] 1,200 mg PO QDAY 30 Days #8 tablet RX: Acyclovir [Zovirax Tab] 400 mg PO Q8H 30 Days #90 tab
[2018-08-04 17:35] VITALS: BP 91/66
== END 2018-08-04 16:30 | disposition home or self-care (01) | DRG 974 ==
LOC: ED 12:52 → 3A 16:26
PROVIDERS: ADMIT Internal Medicine; ATTEND Internal Medicine
PROC: 02HV33Z Insertion of Infusion Device into Superior Vena Cava, Percutaneous Approach (ICD-10-PCS; principal; 2018-07-28)
DX: B20 Human immunodeficiency virus [HIV] disease (principal); E43 Unspecified severe protein-calorie malnutrition; E86.0 Dehydration; A41.9 Sepsis, unspecified organism; B37.0 Candidal stomatitis; E87.5 Hyperkalemia; B37.81 Candidal esophagitis; E86.9 Volume depletion, unspecified; R13.10 Dysphagia, unspecified; K12.2 Cellulitis and abscess of mouth; R19.7 Diarrhea, unspecified; Z79.899 Other long term (current) drug therapy; Z91.19 Patient's noncompliance with other medical treatment and regimen; Z68.1 Body mass index [BMI] 19.9 or less, adult
CPT/HCPCS: 36415; 70491; 71045; 80048; 80053; 81001; 82962; 85007; 85025; 85027; 87040; 87045; 87177; 87497; 96361; 96374; G0378; J0133; J0295; J1450; J2248; J2405; J7030; J7040; Q9967

== ENCOUNTER 2018-09-04 19:05 | Inpatient (IN) | payer MEDICAID ==
[2018-09-04] MEDS ORDERED: NACL 0.9% 1000 ML 1,000 ML IV ONE (20:37)
--- NOTE | 2018-09-04 20:39 | Emergency Department Report ---
HPI - General Time Seen by Provider: 09/04/18 19:56 - HPI HPI: 42-year-old Afro-[place]ish male presents to the emergency department via EMS from his residence at [place] with complaint of altered mental status. The patient is apparently altered per his roommate at that facility. The patient is a poor historian and just says "I feel sick." He has a past medical history of HI V/AIDS and has been here in the past secondary to dehydration, malnutrition, severe oral thrush and previous community-acquired pneumonia. ED Past Medical Hx - Past Medical History Hx Congestive Heart Failure: No Hx Diabetes: No Hx Deep Vein Thrombosis: No Hx Asthma: No Hx COPD: No Hx Tuberculosis: No Hx HIV: Yes - Surgical History Hx Pacemaker: No Hx Internal Defibrillator: No - Social History Smoking Status: Unknown if ever smoked Substance Use Type: Other - Medications Home Medications: Home Medications Medication Instructions Recorded Confirmed Last Taken Type Azithromycin [Zithromax TAB] 1,200 mg PO QWEEK #4 tablet 06/18/18 07/26/18 Unknown Rx Pantoprazole [Protonix TAB] 40 mg PO DAILY #30 tablet 06/19/18 07/26/18 Unknown Rx Nystas/Diphen/Xyl Visc/Mylanta 15 ml PO TID 14 Days oral.liqd 07/18/18 Unknown Rx [Magic Mouthwash] Nystas/Diphen/Xyl Visc/Mylanta 15 ml PO TID 30 Days #1 udc 07/23/18 Unknown Rx [Magic Mouthwash] Sulfamethoxazole/Trimethoprim 1 each PO QDAY 30 Days #30 tablet 07/23/18 Unknown Rx [Bactrim DS TAB] Posaconazole [Noxafil] 300 mg PO BID 1 Days #6 tablet. 08/03/18 Unknown Rx Posaconazole [Noxafil] 300 mg PO QDAY 13 Days #39 08/03/18 Unknown Rx tablet. Acyclovir [Zovirax Tab] 400 mg PO Q8H 30 Days #90 tab 08/04/18 Unknown Rx Azithromycin [Zithromax TAB] 1,200 mg PO QDAY 30 Days #8 tablet 08/04/18 Unknown Rx Loperamide [Imodium] 2 mg PO Q2H PRN #30 capsule 08/04/18 Unknown Rx Midodrine HCl 2.5 mg PO DAILY #30 tablet 08/04/18 Unknown Rx ED Review of Systems ROS: Stated complaint: AMS Other details as noted in HPI Comment: Unobtainable due to pts medical conditions Physical Exam - Physical Exam Vital Signs: Vital Signs 09/04/18 20:22 Temperature 98.7 F Pulse Rate 98 H Respiratory 14 Rate Blood Pressure 107/58 O2 Sat by Pulse 100 Oximetry Physical Exam: GENERAL: Patient is ill-appearing. HEENT: Normocephalic. Atraumatic. Patient has moist mucous membranes. There is oral thrush. EYES: Extraocular motions are intact. Pupils are equal and reactive to light bilaterally. NECK: Supple. Trachea is midline. CHEST/LUNGS: Clear to auscultation. There is no respiratory distress noted. HEART/CARDIOVASCULAR: Regular. There is no tachycardia. There is no obvious murmur. ABDOMEN: Abdomen is soft, nontender. Patient has normal bowel sounds. There is no abdominal distention. SKIN: Skin is warm and dry. NEURO: The patient is awake, alert but confused. Cranial nerves II through XII grossly intact. Withdraws from painful stimuli. MUSCULOSKELETAL: There is no tenderness or deformity. There is no evidence of acute injury. ED Course Vital Signs 09/04/18 20:22 Temperature 98.7 F Pulse Rate 98 H Respiratory 14 Rate Blood Pressure 107/58 O2 Sat by Pulse 100 Oximetry ED Medical Decision Making - Lab Data Result diagrams: 09/04/18 21:00 09/04/18 21:00 - EKG Data -: EKG Interpreted by Me EKG shows normal: sinus rhythm, axis, intervals, QRS complexes (Q waves to the septal leads.), ST-T waves Rate: tachycardia (105 bpm) - EKG Data When compared to previous EKG there are: previous EKG unavailable Interpretation: other (sinus tachycardia at 105 bpm, Q waves to the septal leads) - Radiology Data Radiology results: report reviewed PROCEDURE: CT HEAD/BRAIN WO CON TECHNIQUE: Computerized tomography of the head was performed without contrast material. CT DOSE LENGTH PRODUCT: 996 mGycm HISTORY: Altered Mental Status COMPARISONS: None . FINDINGS: Skull and scalp: Normal . Paranasal sinuses: Mucosal thickening is noted involving bilateral maxillary and ethmoid sinuses. . Ventricles and subarachnoid spaces: Prominent consistent with cerebral atrophy appropriate for patient's age. . Cerebrum: No evidence of hemorrhage, acute infarction or mass . Cerebellum and brainstem: No evidence of hemorrhage, acute infarction or mass . Vasculature: Normal . Other: None . ASPECTS: 10 IMPRESSION: No acute intracranial abnormality Chronic Maxillary and ethmoid sinusitis. This document is electronically signed by Rodrigo Davidson MD., September 04 2018 10:06:10 PM ET Transcribed By: [facility] [place] Dictated By: RODRIGO DAVIDSON Electronically Authenticated By: RODRIGO DAVIDSON Signed Date/Time: 09/04/182207 PROCEDURE: XR CHEST 1V AP TECHNIQUE: Frontal portable view of the chest HISTORY: AMS COMPARISONS: Chest x-ray dated July 28, 2018 FINDINGS: There is prominence of the interstitial markings in both lungs similar in appearance to the previous study. There has been interval decrease in the degree of patchy pulmonary consolidation in the left lung base. There is no evidence of pneumothorax or pleural fluid collection. The cardiomediastinal silhouette is normal in appearance. The bony structures are unremarkable. IMPRESSION: 1. Interval decrease in degree of pulmonary consolidation left lung base. 2. Otherwise no significant change since previous study dated July 28, 2017. If further imaging is required, CT chest may be helpful. This document is electronically signed by Miranda Fuller MD., September 04 2018 09:35:43 PM ET Transcribed By: Dictated By: MIRANDA FULLER MD Electronically Authenticated By: MIRANDA FULLER MD Signed Date/Time: 09/04/182136 PROCEDURE: US ABDOMEN LIMITED TECHNIQUE: Real-time sonography was performed of the gallbladder with image documentation. HISTORY: RUQ abd pain COMPARISONS: None . FINDINGS: The gallbladder lumen is contracted. The common bile duct is normal and measures 2 mm. Portions of the liver, right kidney and pancreas imaged are normal. . IMPRESSION: The gallbladder lumen is contracted. The common bile duct is normal measuring 2 mm. . This document is electronically signed by Roxy Corbin DO., September 05 2018 12:58:35 AM ET Transcribed By: [facility] Dictated By: ROXY CORBIN MD Electronically Authenticated By: ROXY CORBIN MD Signed Date/Time: 09/05/18 0100 - Medical Decision Making This patient presents to the emergency department from his alf house for evaluation of altered mental status. Patient does appear confused. At first, the patient had to urinate, he just turned to his side and started urinating on the floor. However later he was redirectable to use a bedside urinal. Patient is able to tell that he is not feeling well but he is not forthcoming about any signs or symptoms. He is ill-appearing with a cachectic appearance. He has oral thrush and appears dehydrated. CT of the head without contrast does not show any bleed, shift, mass, ischemia, or any other acute process. Chest x-ray shows interval improvement of previous pneumonia and/or consolidation. Patient's lab show some anemia, elevated LFTs and bilirubin. An ultrasound was done that was unremarkable and just shows a contracted gallbladder lumen. Patient was given IV fluid resuscitation. He will be admitted to the hospital for further evaluation and treatment and was accepted for admission by the hospitalist, Dr. Luong. - Differential Diagnosis AIDS, Pneumonia, Malnourishment, Dehydration, UTI Critical Care Time: No Critical care attestation.: If time is entered above; I have spent that time in minutes in the direct care of this critically ill patient, excluding procedure time. ED Disposition Clinical Impression: AIDS, Dehydration, Severe malnutrition, Thrush, oral, Lactic acidosis Disposition: OP ADMIT IP TO THIS HOSP Is pt being admited?: Yes Condition: Fair Referrals: PRIMARY CARE, [Primary Care Provider] - 3-5 Days Time of Disposition: 01:16
--- NOTE | 2018-09-04 21:37 | XRay Report ---
PROCEDURE: XR CHEST 1V AP TECHNIQUE: Frontal portable view of the chest HISTORY: AMS COMPARISONS: Chest x-ray dated July 28, 2018 FINDINGS: There is prominence of the interstitial markings in both lungs similar in appearance to the previous study. There has been interval decrease in the degree of patchy pulmonary consolidation in the left lung bas e. There is no evidence of pneumothorax or pleural fluid collection. The cardiomediastinal silhouette is normal in appearance. The bony structures are unremarkable. IMPRESSION: 1. Interval decrease in degree of pulmonary consolidation left lung base. 2. Otherwise no significant change since previous study dated July 28, 2017. If further imaging is required, CT chest may be helpful. This document is electronically signed by Miranda Fuller MD., September 04 2018 09:35:43 PM ET
[2018-09-04 21:49] LABS: Alanine Aminotransferase 136 units/L (7-56); Albumin 3.5 g/dL (3.9-5); BUN/Creatinine Ratio 31; Blood Urea Nitrogen 31 mg/dL (9-20); Calcium 8.2 mg/dL (8.4-10.2); Hemolysis Index 2
[2018-09-04 21:56] LABS: Basophils % (Auto) 0.3 % (0.0-1.8); Eosinophils % (Auto) 0.1 % (0.0-4.3); Hematocrit 28.9 % (35.5-45.6); Hemoglobin 9.6 gm/dl (11.8-15.2); Lymphocytes # (Auto) 0.7 K/mm3 (1.2-5.4); Lymphocytes % (Auto) 14.7 % (13.4-35.0); Mean Corpuscular HGB Conc 33 % (32-34); Mean Corpuscular Volume 89 fl (84-94); Monocytes # (Auto) 0.6 K/mm3 (0.0-0.8); Monocytes % (Auto) 12.5 % (0.0-7.3); Red Blood Count 3.23 M/mm3 (3.65-5.03); Red Cell Distribution Width 18.8 % (13.2-15.2)
--- NOTE | 2018-09-04 22:08 | Cat Scan Report ---
PROCEDURE: CT HEAD/BRAIN WO CON TECHNIQUE: Computerized tomography of the head was performed without contrast material. CT DOSE LENGTH PRODUCT: 996 mGycm HISTORY: Altered Mental Status COMPARISONS: None . FINDINGS: Skull and scalp: Normal . Paranasal sinuses: Mucosal thickening is noted involving bilateral maxillary and ethmoid sinuses. . Ventricles and subarachnoid spaces: Prominent consistent with cerebral atrophy appropriate for patie nt's age. . Cerebrum: No evidence of hemorrhage, acute infarction or mass . Cerebellum and brainstem: No evidence of hemorrhage, acute infarction or mass . Vasculature: Normal . Other: None . ASPECTS: 10 IMPRESSION: No acute intracranial abnormality Chronic Maxillary and ethmoid sinusitis. This document is electronically signed by Haris Davidson MD., September 04 2018 10:06:10 PM ET
[2018-09-04 22:09] LABS: Platelet Count 195 K/mm3 (140-440)
[2018-09-05 00:07] LABS: Bacteria,Urine 1+ /HPF (Negative); Bilirubin,Urine NEG (Negative); Blood,Urine NEG (Negative); Color,Urine Yellow (Yellow); Mucus,Urine FEW /HPF; Protein,Urine <15 mg/dL mg/dL (Negative); Urobilinogen,Urine < 2.0 mg/dL (<2.0)
[2018-09-05 00:22] LABS: Amphetamine Screen,Urine PRESUMPTIVE NEGATIVE; Benzodiazepines Screen,Urine PRESUMPTIVE NEGATIVE; Cannabinoid Screen,Urine PRESUMPTIVE NEGATIVE; Cocaine Screen,Urine PRESUMPTIVE NEGATIVE; Methadone Screen,Urine PRESUMPTIVE NEGATIVE; Opiate Screen,Urine PRESUMPTIVE NEGATIVE
--- NOTE | 2018-09-05 01:00 | Ultrasound Report ---
PROCEDURE: US ABDOMEN LIMITED TECHNIQUE: Real-time sonography was performed of the gallbladder with image documentation. HISTORY: RUQ abd pain COMPARISONS: None . FINDINGS: The gallbladder lumen is contracted. The common bile duct is normal and measures 2 mm. Portions of th e liver, right kidney and pancreas imaged are normal. . IMPRESSION: The gallbladder lumen is contracted. The common bile duct is normal measuring 2 mm. . This document is electronically signed by Roxy Corbin DO., September 05 2018 12:58:35 AM ET
[2018-09-05] MEDS ORDERED: ZOFRAN IV PRN (02:48)
[2018-09-05] MEDS ORDERED: SODIUM CHLORIDE FLUSH SYRINGE 10 ML IV PRN (02:48)
[2018-09-05] MEDS ORDERED: NACL 0.9% 1000 ML 1,000 ML IV ONE (03:01)
--- NOTE | 2018-09-05 04:33 | History and Physical Report ---
History of Present Illness Date of examination: 09/05/18 Date of admission: 09/05/18 02:48 Chief complaint: Altered mental status per report History of present illness: Patient is a 43-year-old -[place] male with history of HIV-AIDS who presented to the ED via EMS on account of altered mental status. Patient was unable to give history due to altered mental status. It was reported that the patient's roommate noted that he was confused and then called EMS. No other reported history and no family member was available during my history taking Past History Past Medical History: other (HIV/AIDS) Past Surgical History: Other (unable to obtain due to altered mental status) Social history: other (unable to obtain due to altered mental status) Family history: other (unable to obtain due to altered mental status) Medications and Allergies Allergies Allergy/AdvReac Type Severity Reaction Status Date / Time No Known Allergies Allergy Verified 07/18/18 14:08 Home Medications Medication Instructions Recorded Confirmed Last Taken Type Azithromycin [Zithromax TAB] 1,200 mg PO QWEEK #4 tablet 06/18/18 07/26/18 Unknown Rx Pantoprazole [Protonix TAB] 40 mg PO DAILY #30 tablet 06/19/18 07/26/18 Unknown Rx Nystas/Diphen/Xyl Visc/Mylanta 15 ml PO TID 14 Days oral.liqd 07/18/18 Unknown Rx [Magic Mouthwash] Nystas/Diphen/Xyl Visc/Mylanta 15 ml PO TID 30 Days #1 udc 07/23/18 Unknown Rx [Magic Mouthwash] Sulfamethoxazole/Trimethoprim 1 each PO QDAY 30 Days #30 tablet 07/23/18 Unknown Rx [Bactrim DS TAB] Posaconazole [Noxafil] 300 mg PO BID 1 Days #6 tablet. 08/03/18 Unknown Rx Posaconazole [Noxafil] 300 mg PO QDAY 13 Days #39 08/03/18 Unknown Rx tablet. Acyclovir [Zovirax Tab] 400 mg PO Q8H 30 Days #90 tab 08/04/18 Unknown Rx Azithromycin [Zithromax TAB] 1,200 mg PO QDAY 30 Days #8 tablet 08/04/18 Unknown Rx Loperamide [Imodium] 2 mg PO Q2H PRN #30 capsule 08/04/18 Unknown Rx Midodrine HCl 2.5 mg PO DAILY #30 tablet 08/04/18 Unknown Rx Active Meds: Active Medications Acetaminophen (Tylenol) 650 mg PO Q4H PRN PRN Reason: Pain MILD(1-3)/Fever >100.5/VILLAREAL Acetaminophen/Hydrocodone Bitart ([place] 5/325) 1 each PO Q4H PRN PRN Reason: Pain, Moderate (4-6) Enoxaparin Sodium (Lovenox) 40 mg SUB-Q QDAY GLEN Famotidine (Pepcid) 10 mg IV BID GLEN Fluconazole (Diflucan) 200 mg in 100 mls @ 100 mls/hr IV Q24HR GLEN; Protocol Dextrose/Sodium Chloride (D5ns) 1,000 mls @ 100 mls/hr IV DIRECT GLEN Ondansetron HCl (Zofran) 4 mg IV Q8H PRN PRN Reason: Nausea And Vomiting Sodium Chloride (Sodium Chloride Flush Syringe 10 Ml) 10 ml IV BID GLEN Sodium Chloride (Sodium Chloride Flush Syringe 10 Ml) 10 ml IV PRN PRN PRN Reason: LINE FLUSH Review of Systems ROS unobtainable: due to mental status (altered mental status) Exam - Constitutional Vitals: Temp Pulse Resp BP Pulse Ox 98.7 F 98 H 14 107/58 100 09/04/18 20:22 09/04/18 20:22 09/04/18 20:22 09/04/18 20:22 09/04/18 20:22 General appearance: Present: no acute distress, disheveled - EENT Eyes: Present: PERRL, EOM intact ENT: hearing intact, other (oral thrush noted) - Neck Neck: Present: supple, normal ROM - Respiratory Respiratory effort: normal Respiratory: bilateral: CTA - Cardiovascular Rhythm: regular Heart Sounds: Present: S1 & S2 - Extremities Extremities: No edema Peripheral Pulses: within normal limits - Abdominal General gastrointestinal: Present: soft, non-tender, non-distended, normal bowel sounds Male genitourinary: Present: deferred - Integumentary Integumentary: Present: clear, warm, dry - Musculoskeletal Musculoskeletal: generalized weakness - Psychiatric Psychiatric: other (could not be assessed due to altered mental status) - Neurologic Neurologic: moves all extremities Results - Labs CBC & Chem 7: 09/04/18 21:00 09/04/18 21:00 Labs: Laboratory Last Values WBC 4.8 K/mm3 (4.5-11.0) 09/04/18 21:00 RBC 3.23 M/mm3 (3.65-5.03) L 09/04/18 21:00 Hgb 9.6 gm/dl (11.8-15.2) L 09/04/18 21:00 Hct 28.9 % (35.5-45.6) L 09/04/18 21:00 MCV 89 fl (84-94) 09/04/18 21:00 MCH 30 pg (28-32) 09/04/18 21:00 MCHC 33 % (32-34) 09/04/18 21:00 RDW 18.8 % (13.2-15.2) H 09/04/18 21:00 Plt Count 195 K/mm3 (140-440) 09/04/18 21:00 Lymph % (Auto) 14.7 % (13.4-35.0) 09/04/18 21:00 [place] % (Auto) 12.5 % (0.0-7.3) H 09/04/18 21:00 Eos % (Auto) 0.1 % (0.0-4.3) 09/04/18 21:00 Baso % (Auto) 0.3 % (0.0-1.8) 09/04/18 21:00 Lymph # 0.7 K/mm3 (1.2-5.4) L 09/04/18 21:00 [place] # 0.6 K/mm3 (0.0-0.8) 09/04/18 21:00 Eos # 0.0 K/mm3 (0.0-0.4) 09/04/18 21:00 Baso # 0.0 K/mm3 (0.0-0.1) 09/04/18 21:00 Seg Neutrophils % 72.4 % (40.0-70.0) H 09/04/18 21:00 Seg Neutrophils # 3.5 K/mm3 (1.8-7.7) 09/04/18 21:00 Sodium 142 mmol/L (137-145) 09/04/18 21:00 Potassium 4.6 mmol/L (3.6-5.0) 09/04/18 21:00 Chloride 109.9 mmol/L (98-107) H 09/04/18 21:00 Carbon Dioxide 21 mmol/L (22-30) L 09/04/18 21:00 Anion Gap 16 mmol/L 09/04/18 21:00 BUN 31 mg/dL (9-20) H 09/04/18 21:00 Creatinine 1.0 mg/dL (0.8-1.5) 09/04/18 21:00 Estimated GFR > 60 ml/min 09/04/18 21:00 BUN/Creatinine Ratio 31 % 09/04/18 21:00 Glucose 92 mg/dL (75-100) 09/04/18 21:00 Lactic Acid 1.30 mmol/L (0.7-2.0) 09/05/18 03:50 Calcium 8.2 mg/dL (8.4-10.2) L 09/04/18 21:00 Total Bilirubin 0.30 mg/dL (0.1-1.2) 09/04/18 21:00 AST 200 units/L (5-40) H 09/04/18 21:00 ALT 136 units/L (7-56) H 09/04/18 21:00 Alkaline Phosphatase 138 units/L (35-129) H 09/04/18 21:00 Ammonia 64.0 umol/L (25-60) H 09/04/18 22:32 Total Creatine Kinase 101 units/L (55-170) 09/04/18 21:00 Troponin T 0.020 ng/mL (0.00-0.029) 09/04/18 21:00 Total Protein 7.1 g/dL (6.3-8.2) 09/04/18 21:00 Albumin 3.5 g/dL (3.9-5) L 09/04/18 21:00 Albumin/Globulin Ratio 1.0 % 09/04/18 21:00 TSH 0.960 mlU/mL (0.270-4.200) 09/04/18 21:00 Urine Color Yellow (Yellow) 09/04/18 23:30 Urine Turbidity Clear (Clear) 09/04/18 23:30 Urine pH 6.0 (5.0-7.0) 09/04/18 23:30 Ur Specific [place] 1.012 (1.003-1.030) 09/04/18 23:30 Urine Protein <15 mg/dl mg/dL (Negative) 09/04/18 23:30 Urine Glucose (UA) Neg mg/dL (Negative) 09/04/18 23:30 Urine Ketones Neg mg/dL (Negative) 09/04/18 23:30 Urine Blood Neg (Negative) 09/04/18 23:30 Urine Nitrite Neg (Negative) 09/04/18 23:30 Urine Bilirubin Neg (Negative) 09/04/18 23:30 Urine Urobilinogen < 2.0 mg/dL (<2.0) 09/04/18 23:30 Ur Leukocyte Esterase Neg (Negative) 09/04/18 23:30 Urine WBC (Auto) 1.0 /HPF (0.0-6.0) 09/04/18 23:30 Urine RBC (Auto) 2.0 /HPF (0.0-6.0) 09/04/18 23:30 Urine Bacteria (Auto) 1+ /HPF (Negative) 09/04/18 23:30 Urine Mucus Few /HPF 09/04/18 23:30 Urine Opiates Screen Presumptive negative 09/04/18 23:30 Urine Methadone Screen Presumptive negative 09/04/18 23:30 Ur Barbiturates Screen Presumptive negative 09/04/18 23:30 Ur Phencyclidine Scrn Presumptive negative 09/04/18 23:30 Ur Amphetamines Screen Presumptive negative 09/04/18 23:30 U Benzodiazepines Scrn Presumptive negative 09/04/18 23:30 Urine Cocaine Screen Presumptive negative 09/04/18 23:30 U Marijuana (THC) Screen Presumptive negative 09/04/18 23:30 Drugs of Abuse Note Disclamer 09/04/18 23:30 Plasma/Serum Alcohol < 0.01 % (0-0.07) 09/04/18 21:00 Assessment and Plan Assessment and plan: Oropharyngeal candidiasis -On IV Diflucan Acute metabolic encephalopathy -Head CT scan negative Adult failure to thrive -Dietitian consulted Recent history of pneumonia -Chest x-ray showed some improvement -Chest CT scan for further evaluation HIV/AIDS -ID consulted Transaminitis -We'll hydrate patient and monitor levels -Abdominal ultrasound neg Lactic acidosis -Resolved status post IV hydration Metabolic acidosis -On IV fluid, will monitor bicarbonate level Anemia of chronic disease -H&H stable Hyperammonemia -Lactulose ordered DVT prophylaxis with Lovenox Disposition: For discharge when medically stable Time spent: 38 minutes
--- NOTE | 2018-09-05 05:26 | Cat Scan Report ---
PROCEDURE: CT CHEST WO CON TECHNIQUE: Routine axial imaging was obtained of the chest without contrast with sagittal and myers l reconstructions. HISTORY: pneumonia COMPARISONS: Chest x-ray 09/04/2018 FINDINGS: There are patchy infiltrates in the left lower lobe. There are additional smaller infiltrates in the right lower lobe right middle lobe and left upper lobe to much lesser extent. Pleural fluid is not se en. There are atelectatic changes in the left lower lobe. There are scattered blebs in the left lung. The heart size is normal. There is no evidence of pericardial effusion. The thoracic aorta is normal in caliber. Adenopathy is not seen. In the upper abdomen the adrenal glands appear normal. The skele bao structures are well-maintained. IMPRESSION: Bilateral pneumonia with findings most prominent in the left lower lobe as described. Bronchiectatic changes in left lower lobe noted also. Scattered blebs in the left lung.. This document is electronically signed by Charles Hathaway MD., September 05 2018 05:24:17 AM ET
[2018-09-05] MEDS: CEPHULAC PO SCH ×2 (09:58→21:49)
[2018-09-05] MEDS: LOVENOX SUB-Q SCH ×2 (09:58→10:12)
[2018-09-05] MEDS: PEPCID IV SCH ×2 (09:58→21:49)
[2018-09-05] MEDS: SODIUM CHLORIDE FLUSH SYRINGE 10 ML IV SCH ×2 (09:59→21:53)
[2018-09-05] MEDS: DIFLUCAN 200 MG/100 ML BAG IV SCH (11:44)
--- NOTE | 2018-09-05 11:48 | Progress Note ---
Assessment and Plan Assessment and plan: Patient is a 42 yo man with a history of HIV/AIDs and anemia who [facility] with [facility]. Patient was just discharged from here on 08/04/2018 for sepsis, LLL, lingula pneumonia and severe oral candidiasis * CT chest wo contrast IMPRESSION: Bilateral pneumonia with findings most prominent in the left lower lobe as described. Bronchiectatic changes in left lower lobe noted also. Scattered blebs in the left lung.. * GB Ultrasound IMPRESSION: The gallbladder lumen is contracted. The common bile duct is normal measuring 2 mm[address] . * CT head without contrast Impression: No acute intracranial abnormality, chronic maxillary and ethmoid sinusitis -AMS due to acute metabolic encephalopathy from FTT/malnutrition, improving: consulted [employer], daily calorie count -HIV/AIDs: consulted ID -AOCD: monitor cbc daily -Severe Malnutrition: consulted [employer] -Acute Renal Failure, vasomotor nephropathy, poa, Cr is 1.0, up from baseline of 0.5: treat with IVF and bmp/cmp daily, if doesn't Cr doesn't improved get u/s -Oral Candidiasis, treated, tolerating a diet, will monitor, GI consulted -Worsening Transaminitis: consult GI, cmp daily, reviewed GB ultrasound -Non-adherence to medical therapy: counseling done -Lactic acidosis, Resolved status post IV hydration -Metabolic acidosis: On IV fluid, will monitor bicarbonate level -Hyperammonemia-Lactulose ordered DVT prophylaxis with Lovenox Disposition: continue inpatient care prolonged inpatient services 35 minutes History Interval history: Patient was seen and examined. Follow-up on current diagnosis. Overnight uneventful. Patient denies any chest pain, shortness breath, nausea/vomiting or severe headaches. Imaging, nursing note, chart, labs and old chart reviewed. Discussed with patient. PMH: as hpi PSH: SH: FH: ROS: Constitutional: denies: fever ENT: denies: throat or neck pain Respiratory: denies: cough, shortness of breath Cardiovascular: denies: chest pain Endocrine: denies unexplained weight loss or gain Gastrointestinal: denies: abdominal pain, nausea Genitourinary: denies: dysuria Rectal: denies no incontinence, no bleeding, no itching, no discharge Musculoskeletal: denies swelling, myaglia, muscle weakness Skin: denies: rash Neurological: denies: headache Hematological/Lymphatic: denies: easy bleeding or easy bruising Allergic/Immunologic: no urticaria, no allergic rhinitis, no anaphylaxis Psych: denies sadness or hopelessness, SI/HI If blood glucose (BG) is 150-200 then give 2 units of insulin, if BG 201-250 give 4 units, if BG 251-300 give 6 u, if BG 301-350 give 8 units, if BG 351-400 give 10 units, if BG 401-450 give 12 units, if BG 451-500 give 14 units. Call MD immediately if BG>400 or BG<70 Gen: WDWN, NAD, Awake, Alert, Orientated HEENT: NCAT, EOMI, PERRL, OP Clear Neck: supple, no adenopathy, no thyromegaly, no JVD CVS/Heart: RRR, normal S1S2, pulses present bilaterally Chest/Lungs: CTA B, Symmetrical chest expansion, good air entry bilaterally GI/Abdomen: soft, NTND, good bowel sounds, no guarding or rebound /Bladder: no suprapubic tenderness, no CVA or paraspinal tenderness Extermity/Skin: no c/c/e, no obvious rash MSK: FROM x 4 Neuro: CN 2-12 grossly intact, no new focal deficits Psych: calm Hospitalist Physical - Constitutional Vitals: Temp Pulse Resp BP Pulse Ox 99.6 F 74 20 99/61 93 09/05/18 05:21 09/05/18 05:21 09/05/18 05:21 09/05/18 11:20 09/05/18 11:33 General appearance: Present: no acute distress, disheveled Results - Labs CBC & Chem 7: 09/04/18 21:00 09/04/18 21:00 Labs: Laboratory Last Values WBC 4.8 K/mm3 (4.5-11.0) 09/04/18 21:00 RBC 3.23 M/mm3 (3.65-5.03) L 09/04/18 21:00 Hgb 9.6 gm/dl (11.8-15.2) L 09/04/18 21:00 Hct 28.9 % (35.5-45.6) L 09/04/18 21:00 MCV 89 fl (84-94) 09/04/18 21:00 MCH 30 pg (28-32) 09/04/18 21:00 MCHC 33 % (32-34) 09/04/18 21:00 RDW 18.8 % (13.2-15.2) H 09/04/18 21:00 Plt Count 195 K/mm3 (140-440) 09/04/18 21:00 Lymph % (Auto) 14.7 % (13.4-35.0) 09/04/18 21:00 [place] % (Auto) 12.5 % (0.0-7.3) H 09/04/18 21:00 Eos % (Auto) 0.1 % (0.0-4.3) 09/04/18 21:00 Baso % (Auto) 0.3 % (0.0-1.8) 09/04/18 21:00 Lymph # 0.7 K/mm3 (1.2-5.4) L 09/04/18 21:00 [place] # 0.6 K/mm3 (0.0-0.8) 09/04/18 21:00 Eos # 0.0 K/mm3 (0.0-0.4) 09/04/18 21:00 Baso # 0.0 K/mm3 (0.0-0.1) 09/04/18 21:00 Seg Neutrophils % 72.4 % (40.0-70.0) H 09/04/18 21:00 Seg Neutrophils # 3.5 K/mm3 (1.8-7.7) 09/04/18 21:00 Sodium 142 mmol/L (137-145) 09/04/18 21:00 Potassium 4.6 mmol/L (3.6-5.0) 09/04/18 21:00 Chloride 109.9 mmol/L (98-107) H 09/04/18 21:00 Carbon Dioxide 21 mmol/L (22-30) L 09/04/18 21:00 Anion Gap 16 mmol/L 09/04/18 21:00 BUN 31 mg/dL (9-20) H 09/04/18 21:00 Creatinine 1.0 mg/dL (0.8-1.5) 09/04/18 21:00 Estimated GFR > 60 ml/min 09/04/18 21:00 BUN/Creatinine Ratio 31 % 09/04/18 21:00 Glucose 92 mg/dL (75-100) 09/04/18 21:00 Lactic Acid 1.30 mmol/L (0.7-2.0) 09/05/18 03:50 Calcium 8.2 mg/dL (8.4-10.2) L 09/04/18 21:00 Total Bilirubin 0.30 mg/dL (0.1-1.2) 09/04/18 21:00 AST 200 units/L (5-40) H 09/04/18 21:00 ALT 136 units/L (7-56) H 09/04/18 21:00 Alkaline Phosphatase 138 units/L (35-129) H 09/04/18 21:00 Ammonia 64.0 umol/L (25-60) H 09/04/18 22:32 Total Creatine Kinase 101 units/L (55-170) 09/04/18 21:00 Troponin T 0.020 ng/mL (0.00-0.029) 09/04/18 21:00 Total Protein 7.1 g/dL (6.3-8.2) 09/04/18 21:00 Albumin 3.5 g/dL (3.9-5) L 09/04/18 21:00 Albumin/Globulin Ratio 1.0 % 09/04/18 21:00 TSH 0.960 mlU/mL (0.270-4.200) 09/04/18 21:00 Urine Color Yellow (Yellow) 09/04/18 23:30 Urine Turbidity Clear (Clear) 09/04/18 23:30 Urine pH 6.0 (5.0-7.0) 09/04/18 23:30 Ur Specific [place] 1.012 (1.003-1.030) 09/04/18 23:30 Urine Protein <15 mg/dl mg/dL (Negative) 09/04/18 23:30 Urine Glucose (UA) Neg mg/dL (Negative) 09/04/18 23:30 Urine Ketones Neg mg/dL (Negative) 09/04/18 23:30 Urine Blood Neg (Negative) 09/04/18 23:30 Urine Nitrite Neg (Negative) 09/04/18 23:30 Urine Bilirubin Neg (Negative) 09/04/18 23:30 Urine Urobilinogen < 2.0 mg/dL (<2.0) 09/04/18 23:30 Ur Leukocyte Esterase Neg (Negative) 09/04/18 23:30 Urine WBC (Auto) 1.0 /HPF (0.0-6.0) 09/04/18 23:30 Urine RBC (Auto) 2.0 /HPF (0.0-6.0) 09/04/18 23:30 Urine Bacteria (Auto) 1+ /HPF (Negative) 09/04/18 23:30 Urine Mucus Few /HPF 09/04/18 23:30 Urine Opiates Screen Presumptive negative 09/04/18 23:30 Urine Methadone Screen Presumptive negative 09/04/18 23:30 Ur Barbiturates Screen Presumptive negative 09/04/18 23:30 Ur Phencyclidine Scrn Presumptive negative 09/04/18 23:30 Ur Amphetamines Screen Presumptive negative 09/04/18 23:30 U Benzodiazepines Scrn Presumptive negative 09/04/18 23:30 Urine Cocaine Screen Presumptive negative 09/04/18 23:30 U Marijuana (THC) Screen Presumptive negative 09/04/18 23:30 Drugs of Abuse Note Disclamer 09/04/18 23:30 Plasma/Serum Alcohol < 0.01 % (0-0.07) 09/04/18 21:00 Active Medications - Current Medications Current Medications: Generic Name Dose Route Start Last Admin Trade Name Freq PRN Reason Stop Dose Admin Acetaminophen 650 mg 09/05/18 02:48 Tylenol PO Q4H PRN Pain MILD(1-3)/Fever >100.5/VILLAREAL Acetaminophen/Hydrocodone Bitart 1 each 09/05/18 02:48 [place] 5/325 PO Q4H PRN Pain, Moderate (4-6) Enoxaparin Sodium 40 mg 09/05/18 10:00 09/05/18 10:12 Lovenox SUB-Q Not Given QDAY GLEN Famotidine 10 mg 09/05/18 10:00 09/05/18 09:58 Pepcid IV 10 mg BID GLEN Administration Fluconazole 200 mg in 100 mls @ 100 mls/hr 09/05/18 10:00 Diflucan IV Q24HR GLEN Protocol Dextrose/Sodium Chloride 1,000 mls @ 100 mls/hr 09/05/18 04:00 D5ns IV DIRECT GLEN Lactulose 20 gm 09/05/18 10:00 09/05/18 09:58 Cephulac PO 09/08/18 09:59 20 gm BID GLEN Administration Ondansetron HCl 4 mg 09/05/18 02:48 Zofran IV Q8H PRN Nausea And Vomiting Sodium Chloride 10 ml 09/05/18 10:00 09/05/18 09:59 Sodium Chloride Flush Syringe 10 Ml IV 10 ml BID GLEN Administration Sodium Chloride 10 ml 09/05/18 02:48 Sodium Chloride Flush Syringe 10 Ml IV PRN PRN LINE FLUSH
--- NOTE | 2018-09-05 15:27 | Gastroenterology Consultation ---
History of Present Illness - Reason for Consult Consult date: 09/05/18 elevated liver enzymes Requesting physician: YADIRA DUNBAR - History of Present Illness This is a 43 yo male with pmh of HIV/AIDS with noncompliance, oral candidiasis admitted for altered mental status and confusion. History limited. GI consulted for elevated liver enzymes. Patient reports mid abdominal pain but unable to give much history regarding the pain. No prior history of liver disease or family hx of liver disease. Work up so far with abdominal US, which was unremarkable with normal appearing liver. Past History Past Medical History: other (HIV/AIDS) Past Surgical History: Other (unable to obtain due to altered mental status) Social history: other (unable to obtain due to altered mental status) Family history: other (unable to obtain due to altered mental status) Medications and Allergies Allergies Allergy/AdvReac Type Severity Reaction Status Date / Time No Known Allergies Allergy Verified 07/18/18 14:08 Home Medications Medication Instructions Recorded Confirmed Last Taken Type Azithromycin [Zithromax TAB] 1,200 mg PO QWEEK #4 tablet 06/18/18 07/26/18 Unknown Rx Pantoprazole [Protonix TAB] 40 mg PO DAILY #30 tablet 06/19/18 07/26/18 Unknown Rx Nystas/Diphen/Xyl Visc/Mylanta 15 ml PO TID 14 Days oral.liqd 07/18/18 Unknown Rx [Magic Mouthwash] Nystas/Diphen/Xyl Visc/Mylanta 15 ml PO TID 30 Days #1 udc 07/23/18 Unknown Rx [Magic Mouthwash] Sulfamethoxazole/Trimethoprim 1 each PO QDAY 30 Days #30 tablet 07/23/18 Unknown Rx [Bactrim DS TAB] Posaconazole [Noxafil] 300 mg PO BID 1 Days #6 tablet. 08/03/18 Unknown Rx Posaconazole [Noxafil] 300 mg PO QDAY 13 Days #39 08/03/18 Unknown Rx tablet. Acyclovir [Zovirax Tab] 400 mg PO Q8H 30 Days #90 tab 08/04/18 Unknown Rx Azithromycin [Zithromax TAB] 1,200 mg PO QDAY 30 Days #8 tablet 08/04/18 Unknown Rx Loperamide [Imodium] 2 mg PO Q2H PRN #30 capsule 08/04/18 Unknown Rx Midodrine HCl 2.5 mg PO DAILY #30 tablet 08/04/18 Unknown Rx Active Meds: Active Medications Acetaminophen (Tylenol) 650 mg PO Q4H PRN PRN Reason: Pain MILD(1-3)/Fever >100.5/VILLAREAL Acetaminophen/Hydrocodone Bitart ([place] 5/325) 1 each PO Q4H PRN PRN Reason: Pain, Moderate (4-6) Enoxaparin Sodium (Lovenox) 40 mg SUB-Q QDAY [facility] Last Admin: 09/05/18 10:12 Dose: Not Given Documented by: Famotidine (Pepcid) 10 mg IV BID [facility] Last Admin: 09/05/18 09:58 Dose: 10 mg Documented by: Fluconazole (Diflucan) 200 mg in 100 mls @ 100 mls/hr IV Q24HR [facility]; Protocol Last Admin: 09/05/18 11:44 Dose: 100 mls/hr Documented by: Dextrose/Sodium Chloride (D5ns) 1,000 mls @ 100 mls/hr IV DIRECT GLEN Lactulose (Cephulac) 20 gm PO BID [facility] Stop: 09/08/18 09:59 Last Admin: 09/05/18 09:58 Dose: 20 gm Documented by: Ondansetron HCl (Zofran) 4 mg IV Q8H PRN PRN Reason: Nausea And Vomiting Sodium Chloride (Sodium Chloride Flush Syringe 10 Ml) 10 ml IV BID [facility] Last Admin: 09/05/18 09:59 Dose: 10 ml Documented by: Sodium Chloride (Sodium Chloride Flush Syringe 10 Ml) 10 ml IV PRN PRN PRN Reason: LINE FLUSH Review of Systems - Review of Systems ROS unobtainable: due to mental status Exam - Constitutional Vital Signs: Temp Pulse Resp BP Pulse Ox 99.6 F 74 20 99/61 93 09/05/18 05:21 09/05/18 05:21 09/05/18 05:21 09/05/18 11:20 09/05/18 11:33 General appearance: no acute distress, well-nourished - EENT Eyes: EOM intact ENT: hearing intact, thrush - Neck Neck: supple, no masses or JVD - Respiratory Respiratory effort: normal Respiratory: bilateral: CTA - Breasts Breasts: deferred - Cardiovascular Rhythm: regular Heart Sounds: Present: S1 & S2. Absent: gallop, rub Extremities: pulses intact, No edema, normal color, Full ROM - Gastrointestinal General gastrointestinal: Present: soft, non-tender, non-distended, normal bowel sounds - Integumentary Integumentary: Present: clear, warm, dry - Neurologic Neurological: oriented to person, oriented to place - Psychiatric Psychiatric: cooperative - Labs CBC & Chem 7: 09/04/18 21:00 09/04/18 21:00 Lab Results: Laboratory Results - last 24 hr 09/04/18 09/04/18 09/04/18 21:00 21:00 21:00 WBC 4.8 RBC 3.23 L Hgb 9.6 L Hct 28.9 L MCV 89 MCH 30 MCHC 33 RDW 18.8 H Plt Count 195 Lymph % (Auto) 14.7 [place] % (Auto) 12.5 H Eos % (Auto) 0.1 Baso % (Auto) 0.3 Lymph # 0.7 L [place] # 0.6 Eos # 0.0 Baso # 0.0 Seg Neutrophils % 72.4 H Seg Neutrophils # 3.5 Sodium 142 Potassium 4.6 Chloride 109.9 H Carbon Dioxide 21 L Anion Gap 16 BUN 31 H Creatinine 1.0 Estimated GFR > 60 BUN/Creatinine Ratio 31 Glucose 92 Lactic Acid Calcium 8.2 L Total Bilirubin 0.30 AST 200 H ALT 136 H Alkaline Phosphatase 138 H Ammonia Total Creatine Kinase 101 Troponin T 0.020 Total Protein 7.1 Albumin 3.5 L Albumin/Globulin Ratio 1.0 TSH 0.960 Urine Color Urine Turbidity Urine pH Ur Specific [place] Urine Protein Urine Glucose (UA) Urine Ketones Urine Blood Urine Nitrite Urine Bilirubin Urine Urobilinogen Ur Leukocyte Esterase Urine WBC (Auto) Urine RBC (Auto) Urine Bacteria (Auto) Urine Mucus Urine Opiates Screen Urine Methadone Screen Ur Barbiturates Screen Ur Phencyclidine Scrn Ur Amphetamines Screen U Benzodiazepines Scrn Urine Cocaine Screen U Marijuana (THC) Screen Drugs of Abuse Note Plasma/Serum Alcohol 09/04/18 09/04/18 09/04/18 21:00 22:32 22:32 WBC RBC Hgb Hct MCV MCH MCHC RDW Plt Count Lymph % (Auto) [place] % (Auto) Eos % (Auto) Baso % (Auto) Lymph # [place] # Eos # Baso # Seg Neutrophils % Seg Neutrophils # Sodium Potassium Chloride Carbon Dioxide Anion Gap BUN Creatinine Estimated GFR BUN/Creatinine Ratio Glucose Lactic Acid 2.40 H* Calcium Total Bilirubin AST ALT Alkaline Phosphatase Ammonia 64.0 H Total Creatine Kinase Troponin T Total Protein Albumin Albumin/Globulin Ratio TSH Urine Color Urine Turbidity Urine pH Ur Specific [place] Urine Protein Urine Glucose (UA) Urine Ketones Urine Blood Urine Nitrite Urine Bilirubin Urine Urobilinogen Ur Leukocyte Esterase Urine WBC (Auto) Urine RBC (Auto) Urine Bacteria (Auto) Urine Mucus Urine Opiates Screen Urine Methadone Screen Ur Barbiturates Screen Ur Phencyclidine Scrn Ur Amphetamines Screen U Benzodiazepines Scrn Urine Cocaine Screen U Marijuana (THC) Screen Drugs of Abuse Note Plasma/Serum Alcohol < 0.01 09/04/18 09/04/18 09/05/18 23:30 23:30 03:50 WBC RBC Hgb Hct MCV MCH MCHC RDW Plt Count Lymph % (Auto) [place] % (Auto) Eos % (Auto) Baso % (Auto) Lymph # [place] # Eos # Baso # Seg Neutrophils % Seg Neutrophils # Sodium Potassium Chloride Carbon Dioxide Anion Gap BUN Creatinine Estimated GFR BUN/Creatinine Ratio Glucose Lactic Acid 1.30 Calcium Total Bilirubin AST ALT Alkaline Phosphatase Ammonia Total Creatine Kinase Troponin T Total Protein Albumin Albumin/Globulin Ratio TSH Urine Color Yellow Urine Turbidity Clear Urine pH 6.0 Ur Specific [place] 1.012 Urine Protein <15 mg/dl Urine Glucose (UA) Neg Urine Ketones Neg Urine Blood Neg Urine Nitrite Neg Urine Bilirubin Neg Urine Urobilinogen < 2.0 Ur Leukocyte Esterase Neg Urine WBC (Auto) 1.0 Urine RBC (Auto) 2.0 Urine Bacteria (Auto) 1+ Urine Mucus Few Urine Opiates Screen Presumptive negative Urine Methadone Screen Presumptive negative Ur Barbiturates Screen Presumptive negative Ur Phencyclidine Scrn Presumptive negative Ur Amphetamines Screen Presumptive negative U Benzodiazepines Scrn Presumptive negative Urine Cocaine Screen Presumptive negative U Marijuana (THC) Screen Presumptive negative Drugs of Abuse Note Disclamer Plasma/Serum Alcohol - Imaging Ultrasound: report reviewed Assessment and Plan This is a 43 yo male with pmh of HIV/AIDS with noncompliance, oral candidiasis admitted for altered mental status and confusion. History limited. GI consulted for elevated liver enzymes. # Elevated liver enzymes - AST/ALT/Alk phos 200/136/138, this is increased from prior mild elevation noted during last admission. - more of hepatocelluar pattern. - abdominal US unremarkable. - may be due to ischemic hepatitis, HIV/AIDs hepatopathy, infectious etiology with viral hepatitis, vs drug toxicity. Rec: - will check hepatitis panel and other liver serologies. - monitor CMP and INR. - will follow. - agree with ID consult. Reviewed patient's current medication
[2018-09-05 17:24] LABS: Alanine Aminotransferase 138 units/L (7-56); Albumin 3.1 g/dL (3.9-5); BUN/Creatinine Ratio 24; Blood Urea Nitrogen 19 mg/dL (9-20); Calcium 8.1 mg/dL (8.4-10.2); Hemolysis Index 3
[2018-09-05 17:25] LABS: Iron 91 ug/dL (49-181); Total Iron Binding Capacity 223 mcg/dL (250-450)
[2018-09-05 17:35] LABS: INR 0.99 (0.87-1.13)
[2018-09-05] MEDS: PROAMATINE PO SCH (19:48)
[2018-09-05] MEDS: D5NS 1,000 ML IV SCH (19:51)
[2018-09-06] MEDS: D5NS 1,000 ML IV SCH ×2 (06:58→18:36)
[2018-09-06] MEDS ORDERED: PROAMATINE PO SCH (08:00)
[2018-09-06] MEDS: PROAMATINE PO SCH ×3 (09:28→19:05)
[2018-09-06] MEDS: LOVENOX SUB-Q SCH (09:29)
[2018-09-06] MEDS: PEPCID IV SCH ×2 (09:29→22:00)
[2018-09-06] MEDS: CEPHULAC PO SCH ×2 (09:30→22:01)
[2018-09-06] MEDS: DIFLUCAN 200 MG/100 ML BAG IV SCH (09:59)
[2018-09-06] MEDS: SODIUM CHLORIDE FLUSH SYRINGE 10 ML IV SCH ×2 (10:00→22:01)
[2018-09-06 11:10] LABS: Basophils % (Auto) 0.3 % (0.0-1.8); Eosinophils % (Auto) 0.2 % (0.0-4.3); Hematocrit 23.7 % (35.5-45.6); Hemoglobin 7.7 gm/dl (11.8-15.2); Lymphocytes # (Auto) 0.2 K/mm3 (1.2-5.4); Mean Corpuscular HGB Conc 33 % (32-34); Mean Corpuscular Volume 89 fl (84-94); Monocytes # (Auto) 0.2 K/mm3 (0.0-0.8); Monocytes % (Auto) 8.4 % (0.0-7.3); Platelet Count 135 K/mm3 (140-440); Red Blood Count 2.67 M/mm3 (3.65-5.03); Red Cell Distribution Width 18.7 % (13.2-15.2)
[2018-09-06 11:32] LABS: Alanine Aminotransferase 143 units/L (7-56); Albumin 2.8 g/dL (3.9-5); BUN/Creatinine Ratio 14; Blood Urea Nitrogen 10 mg/dL (9-20); Calcium 7.8 mg/dL (8.4-10.2); Hemolysis Index 4
[2018-09-06 11:37] LABS: Bilirubin,Direct < 0.2 mg/dL (0-0.2)
--- NOTE | 2018-09-06 12:29 | Progress Note ---
Assessment and Plan Assessment and plan: Patient is a 42 yo man with a history of HIV/AIDs and anemia who presented to [facility] ED with AMS. Patient was just discharged from here on 08/04/2018 for sepsis, LLL, lingula pneumonia and severe oral candidiasis * CT chest wo contrast IMPRESSION: Bilateral pneumonia with findings most prominent in the left lower lobe as described. Bronchiectatic changes in left lower lobe noted also. Scattered blebs in the left lung.. * GB Ultrasound IMPRESSION: The gallbladder lumen is contracted. The common bile duct is normal measuring 2 mm[address] . * CT head without contrast Impression: No acute intracranial abnormality, chronic maxillary and ethmoid sinusitis -AMS due to acute metabolic encephalopathy from FTT/malnutrition, improving: consulted [employer], -HIV/AIDs: consulted ID -Worsening Transaminitis: consulted GI, cmp daily, reviewed GB ultrasound -AOCD: monitor cbc daily -Severe Malnutrition: consulted [employer] -Acute Renal Failure, vasomotor nephropathy, poa, Cr is 1.0, up from baseline of 0.5: treat with IVF and bmp/cmp daily, if doesn't Cr doesn't improved get u/s -Oral Candidiasis, treated, tolerating a diet, will monitor, GI consulted -Non-adherence to medical therapy: counseling done -Lactic acidosis, Resolved status post IV hydration -Metabolic acidosis: On IV fluid, will monitor bicarbonate level -Hyperammonemia-Lactulose ordered but patient refuses DVT prophylaxis with Lovenox but pt is refusing, counseling done again Disposition: continue inpatient care History Interval history: Patient was seen and examined. Follow-up on current diagnosis of AMS. Overnight uneventful. Patient denies any chest pain, shortness breath, nausea/vomiting or severe headaches. Imaging, nursing note, chart, labs and old chart reviewed. Discussed with patient. Hospitalist Physical - Physical exam Narrative exam: Gen: cachetic, unkempt, NAD, Awake, Alert, Orientated x 3 HEENT: NCAT, EOMI, PERRL, OP dry and crusty, whitish Neck: supple, no adenopathy, no thyromegaly, no JVD CVS/Heart: RRR, normal S1S2, pulses present bilaterally Chest/Lungs: CTA B, Symmetrical chest expansion, good air entry bilaterally GI/Abdomen: soft, NTND, good bowel sounds, no guarding or rebound /Bladder: no suprapubic tenderness, no CVA or paraspinal tenderness Extermity/Skin: no c/c/e, no obvious rash MSK: FROM x 4 Neuro: CN 2-12 grossly intact, no new focal deficits Psych: calm - Constitutional Vitals: Temp Pulse Resp BP Pulse Ox 98.5 F 59 L 20 99/59 96 09/06/18 11:59 09/06/18 11:59 09/06/18 11:59 09/06/18 11:59 09/06/18 11:59 General appearance: Present: no acute distress, disheveled Results - Labs CBC & Chem 7: 09/06/18 10:40 09/06/18 10:40 Labs: Laboratory Last Values WBC 2.4 K/mm3 (4.5-11.0) L 09/06/18 10:40 RBC 2.67 M/mm3 (3.65-5.03) L 09/06/18 10:40 Hgb 7.7 gm/dl (11.8-15.2) L 09/06/18 10:40 Hct 23.7 % (35.5-45.6) L 09/06/18 10:40 MCV 89 fl (84-94) 09/06/18 10:40 MCH 29 pg (28-32) 09/06/18 10:40 MCHC 33 % (32-34) 09/06/18 10:40 RDW 18.7 % (13.2-15.2) H 09/06/18 10:40 Plt Count 135 K/mm3 (140-440) L 09/06/18 10:40 Lymph % (Auto) 10.0 % (13.4-35.0) L 09/06/18 10:40 [place] % (Auto) 8.4 % (0.0-7.3) H 09/06/18 10:40 Eos % (Auto) 0.2 % (0.0-4.3) 09/06/18 10:40 Baso % (Auto) 0.3 % (0.0-1.8) 09/06/18 10:40 Lymph # 0.2 K/mm3 (1.2-5.4) L 09/06/18 10:40 [place] # 0.2 K/mm3 (0.0-0.8) 09/06/18 10:40 Eos # 0.0 K/mm3 (0.0-0.4) 09/06/18 10:40 Baso # 0.0 K/mm3 (0.0-0.1) 09/06/18 10:40 Seg Neutrophils % 81.1 % (40.0-70.0) H 09/06/18 10:40 Seg Neutrophils # 1.9 K/mm3 (1.8-7.7) 09/06/18 10:40 PT 13.7 Sec. (12.2-14.9) 09/05/18 16: INR 0.99 (0.87-1.13) 09/05/18 16:19 Sodium 141 mmol/L (137-145) 09/06/18 10:40 Potassium 4.0 mmol/L (3.6-5.0) 09/06/18 10:40 Chloride 112.1 mmol/L (98-107) H 09/06/18 10:40 Carbon Dioxide 19 mmol/L (22-30) L 09/06/18 10:40 Anion Gap 14 mmol/L 09/06/18 10:40 BUN 10 mg/dL (9-20) 09/06/18 10:40 Creatinine 0.7 mg/dL (0.8-1.5) L 09/06/18 10:40 Estimated GFR > 60 ml/min 09/06/18 10:40 BUN/Creatinine Ratio 14 % 09/06/18 10:40 Glucose 92 mg/dL (75-100) 09/06/18 10:40 Lactic Acid 1.30 mmol/L (0.7-2.0) 09/05/18 03:50 Calcium 7.8 mg/dL (8.4-10.2) L 09/06/18 10:40 Iron 91 ug/dL (49-181) 09/05/18 16: TIBC 223 mcg/dL (250-450) L 09/05/18 16: Ferritin 2880.0 ng/mL (13.0-400.0) H 09/05/18 16:19 Total Bilirubin 0.20 mg/dL (0.1-1.2) 09/06/18 10:40 Direct Bilirubin < 0.2 mg/dL (0-0.2) 09/06/18 10:40 Indirect Bilirubin 0.0 mg/dL 09/06/18 10:40 AST 263 units/L (5-40) H 09/06/18 10:40 ALT 143 units/L (7-56) H 09/06/18 10:40 Alkaline Phosphatase 110 units/L (35-129) 09/06/18 10:40 Ammonia 64.0 umol/L (25-60) H 09/04/18 22:32 Total Creatine Kinase 101 units/L (55-170) 09/04/18 21:00 Troponin T 0.020 ng/mL (0.00-0.029) 09/04/18 21:00 Total Protein 6.1 g/dL (6.3-8.2) L 09/06/18 10:40 Albumin 2.8 g/dL (3.9-5) L 09/06/18 10:40 Albumin/Globulin Ratio 0.8 % 09/06/18 10:40 TSH 0.960 mlU/mL (0.270-4.200) 09/04/18 21:00 Urine Color Yellow (Yellow) 09/04/18 23:30 Urine Turbidity Clear (Clear) 09/04/18 23:30 Urine pH 6.0 (5.0-7.0) 09/04/18 23:30 Ur Specific [place] 1.012 (1.003-1.030) 09/04/18 23:30 Urine Protein <15 mg/dl mg/dL (Negative) 09/04/18 23:30 Urine Glucose (UA) Neg mg/dL (Negative) 09/04/18 23:30 Urine Ketones Neg mg/dL (Negative) 09/04/18 23:30 Urine Blood Neg (Negative) 09/04/18 23:30 Urine Nitrite Neg (Negative) 09/04/18 23:30 Urine Bilirubin Neg (Negative) 09/04/18 23:30 Urine Urobilinogen < 2.0 mg/dL (<2.0) 09/04/18 23:30 Ur Leukocyte Esterase Neg (Negative) 09/04/18 23:30 Urine WBC (Auto) 1.0 /HPF (0.0-6.0) 09/04/18 23:30 Urine RBC (Auto) 2.0 /HPF (0.0-6.0) 09/04/18 23:30 Urine Bacteria (Auto) 1+ /HPF (Negative) 09/04/18 23:30 Urine Mucus Few /HPF 09/04/18 23:30 Urine Opiates Screen Presumptive negative 09/04/18 23:30 Urine Methadone Screen Presumptive negative 09/04/18 23:30 Ur Barbiturates Screen Presumptive negative 09/04/18 23:30 Ur Phencyclidine Scrn Presumptive negative 09/04/18 23:30 Ur Amphetamines Screen Presumptive negative 09/04/18 23:30 U Benzodiazepines Scrn Presumptive negative 09/04/18 23:30 Urine Cocaine Screen Presumptive negative 09/04/18 23:30 U Marijuana (THC) Screen Presumptive negative 09/04/18 23:30 Drugs of Abuse Note Disclamer 09/04/18 23:30 Plasma/Serum Alcohol < 0.01 % (0-0.07) 09/04/18 21:00 Active Medications - Current Medications Current Medications: Generic Name Dose Route Start Last Admin Trade Name Freq PRN Reason Stop Dose Admin Acetaminophen 650 mg 09/05/18 02:48 Tylenol PO Q4H PRN Pain MILD(1-3)/Fever >100.5/VILLAREAL Acetaminophen/Hydrocodone Bitart 1 each 09/05/18 02:48 [place] 5/325 PO Q4H PRN Pain, Moderate (4-6) Enoxaparin Sodium 40 mg 09/05/18 10:00 09/06/18 09:29 Lovenox SUB-Q Not Given QDAY GLEN Famotidine 10 mg 09/05/18 10:00 09/06/18 09:29 Pepcid IV 10 mg BID GLEN Administration Fluconazole 200 mg in 100 mls @ 100 mls/hr 09/05/18 10:00 09/06/18 09:59 Diflucan IV 100 mls/hr Q24HR GLEN Administration Protocol Dextrose/Sodium Chloride 1,000 mls @ 100 mls/hr 09/05/18 04:00 09/06/18 06:58 D5ns IV 100 mls/hr DIRECT GLEN Administration Lactulose 20 gm 09/05/18 10:00 09/06/18 09:30 Cephulac PO 09/08/18 09:59 Not Given BID GLEN Midodrine 10 mg 09/05/18 19:00 09/06/18 09:28 Proamatine PO 10 mg TID@0800,1200,1600 GLEN Administration Ondansetron HCl 4 mg 09/05/18 02:48 Zofran IV Q8H PRN Nausea And Vomiting Sodium Chloride 10 ml 09/05/18 10:00 09/06/18 10:00 Sodium Chloride Flush Syringe 10 Ml IV 10 ml BID GLEN Administration Sodium Chloride 10 ml 09/05/18 02:48 Sodium Chloride Flush Syringe 10 Ml IV PRN PRN LINE FLUSH
--- NOTE | 2018-09-06 14:26 | Gastroenterology Progress Note ---
Assessment and Plan This is a 43 yo male with pmh of HIV/AIDS with noncompliance, oral candidiasis admitted for altered mental status and confusion. History limited. GI consulted for elevated liver enzymes. # Elevated liver enzymes - AST/ALT/Alk phos 200/136/138, this is increased from prior mild elevation noted during last admission. - more of hepatocelluar pattern. - abdominal US unremarkable but notes only portions of liver examined. . - may be due to ischemic hepatitis, HIV/AIDs hepatopathy, infectious etiology with viral hepatitis, vs drug toxicity. Rec: - viral hepatitis panel and ASMA/AMA/iron studies pending. - will order CT abdomen to evaluate for underlying liver disease. - monitor CMP and INR. - will follow. - agree with ID consult. Reviewed patient's current medication Subjective Date of service: 09/06/18 Interval history: Patient reports no appetite but no nausea/vomiting. Mild abdominal discomfort. Not answering much questions. Objective - Constitutional Vitals: Temp Pulse Resp BP Pulse Ox 98.5 F 59 L 20 99/59 96 09/06/18 11:59 09/06/18 11:59 09/06/18 11:59 09/06/18 11:59 09/06/18 11:59 - EENT ENT: hearing intact, thrush, ulcerations - Neck Neck: supple, normal ROM - Respiratory Respiratory effort: normal Respiratory: bilateral: CTA - Cardiovascular Rhythm: regular - Extremities Extremities: pulses intact, No edema, normal color, Full ROM - Gastrointestinal General gastrointestinal: Present: soft, non-tender, non-distended, normal bowel sounds - Integumentary Integumentary: Present: clear, warm, dry - Neurologic Neurological: alert and oriented x3 - Labs CBC & Chem 7: 09/06/18 10:40 09/06/18 10:40 Labs: Laboratory Results - last 24 hr 09/05/18 09/05/18 09/05/18 16:19 16:19 16:19 WBC RBC Hgb Hct MCV MCH MCHC RDW Plt Count Lymph % (Auto) [place] % (Auto) Eos % (Auto) Baso % (Auto) Lymph # [place] # Eos # Baso # Seg Neutrophils % Seg Neutrophils # PT 13.7 INR 0.99 Sodium 139 Potassium 4.3 Chloride 112.4 H Carbon Dioxide 19 L Anion Gap 12 BUN 19 Creatinine 0.8 Estimated GFR > 60 BUN/Creatinine Ratio 24 Glucose 95 Calcium 8.1 L Iron 91 TIBC 223 L Ferritin Total Bilirubin 0.30 Direct Bilirubin Indirect Bilirubin AST 241 H ALT 138 H Alkaline Phosphatase 114 Total Protein 6.9 Albumin 3.1 L Albumin/Globulin Ratio 0.8 09/05/18 09/06/18 09/06/18 16:19 10:40 10:40 WBC 2.4 L RBC 2.67 L Hgb 7.7 L Hct 23.7 L MCV 89 MCH 29 MCHC 33 RDW 18.7 H Plt Count 135 L Lymph % (Auto) 10.0 L [place] % (Auto) 8.4 H Eos % (Auto) 0.2 Baso % (Auto) 0.3 Lymph # 0.2 L [place] # 0.2 Eos # 0.0 Baso # 0.0 Seg Neutrophils % 81.1 H Seg Neutrophils # 1.9 PT INR Sodium 141 Potassium 4.0 Chloride 112.1 H Carbon Dioxide 19 L Anion Gap 14 BUN 10 Creatinine 0.7 L Estimated GFR > 60 BUN/Creatinine Ratio 14 Glucose 92 Calcium 7.8 L Iron TIBC Ferritin 2880.0 H Total Bilirubin 0.20 Direct Bilirubin < 0.2 Indirect Bilirubin 0.0 AST 263 H ALT 143 H Alkaline Phosphatase 110 Total Protein 6.1 L Albumin 2.8 L Albumin/Globulin Ratio 0.8
--- NOTE | 2018-09-06 18:37 | Cat Scan Report ---
PROCEDURE: CT ABDOMEN W CON TECHNIQUE: After the injection of IV contrast routine axial cuts were acquired through the abdomen CTDI 15 DLP 581 HISTORY: elevated liver enzymes, abdominal pain COMPARISONS: None FINDINGS: Emphysematous changes at the lung bases with assumed chronic changes and cystic changes At the left base there are several faint nodules the largest of which measures 6 mm and is noncalcifi ed and is slightly spiculated highly recommend comparison to prior study and/or further workup this a lso could be related to scar but cannot rule out primary or secondary malignancy No focal consolidation with air bronchograms Small hiatal hernia Thick wall nondistended stomach The lack of internal body fat and lack oral contrast evaluation for free air or abscess, there is no definite large collection of free air but a contained perforation cannot be completely ruled out Prominent but not truly dilated slightly thick walled enhancing fluid-filled loops of small bowel que stion enteritis but no true small bowel obstruction Nondistended gallbladder with plus minus trace fluid in the gallbladder fossa No biliary tract dilatation Liver pancreas and spleen are unremarkable but evaluation of these structures is limited secondary to technique with the patient's arms overlying the abdominal cavity The liver is slightly inhomogeneous without definite discrete lesion No inflammatory changes around the pancreas No splenomegaly No adrenal lesion Kidneys enhance homogeneously Duplicated ureters right kidney Possible small right parapelvic cyst comparison to prior study or follow-up sonogram may be helpful No hydronephrosis No aortic dissection No aortic aneurysm No retroperitoneal collection Osseous structures appear age-appropriate Of note only the abdominal cavity was evaluated IMPRESSION: At the left base there are several faint nodules the largest of which measures 6 mm and is noncalcifi ed and is slightly spiculated highly recommend comparison to prior study and/or further workup this a lso could be related to scar but cannot rule out primary or secondary malignancy Prominent but not truly dilated slightly thick walled enhancing fluid-filled loops of small bowel que stion enteritis but no true small bowel obstruction Nondistended gallbladder with plus minus trace fluid in the gallbladder fossa No biliary tract dilatation. Kidneys enhance homogeneously Duplicated ureters right kidney Possible small right parapelvic cyst comparison to prior study or follow-up sonogram may be helpful No hydronephrosis This document is electronically signed by Luis Fernando Graves MD., September 06 2018 06:35:45 PM ET
[2018-09-06] MEDS: TYLENOL PO PRN (23:52)
[2018-09-07] MEDS ORDERED: NACL 0.9% 1000 ML 1,000 ML IV ONE (06:12)
[2018-09-07] MEDS: DIFLUCAN 200 MG/100 ML BAG IV SCH (09:15)
[2018-09-07] MEDS: PROAMATINE PO SCH ×3 (09:15→19:11)
[2018-09-07] MEDS: CEPHULAC PO SCH ×2 (09:16→22:35)
[2018-09-07] MEDS: LOVENOX SUB-Q SCH (09:16)
[2018-09-07] MEDS: PEPCID IV SCH ×2 (09:17→22:35)
[2018-09-07] MEDS: SODIUM CHLORIDE FLUSH SYRINGE 10 ML IV SCH ×2 (09:17→22:35)
[2018-09-07 11:28] LABS: Iron 26 ug/dL (49-181); Total Iron Binding Capacity 212 mcg/dL (250-450)
--- NOTE | 2018-09-07 15:41 | Progress Note ---
Assessment and Plan /AMS due to acute metabolic encephalopathy from FTT/malnutrition, improving: consulted Trim And Burr Operator, /HIV/AIDs: consulted ID, patient is noncompliant /Worsening Transaminitis: consulted GI, cmp daily, - abdominal US unremarkable but notes only portions of liver examined. - reviewed CT abdomen showing possible enteritis and somewhat inhomogenous liver. - may be due to ischemic hepatitis, HIV/AIDs hepatopathy, infectious etiology with viral hepatitis, vs drug toxicity. /AOCD: monitor cbc daily /Severe Malnutrition: consulted Trim And Burr Operator /? Acute Renal Failure, vasomotor nephropathy, poa, Cr is 1.0, up from baseline of 0.5: treat with IVF and bmp/cmp daily, /Oral Candidiasis, treated, tolerating a diet, will monitor, GI consulted /Non-adherence to medical therapy: counseling done /Lactic acidosis, Resolved status post IV hydration /Hyperammonemia-Lactulose ordered but patient refuses /Chronic hypotension, on midodrine DVT prophylaxis with Lovenox but pt is refusing, counseling done again Disposition: continue inpatient care Brief History Patient is a 42 yo man with a history of HIV/AIDs and anemia who presented to [facility] ED with AMS. Patient was just discharged from here on 08/04/2018 for sepsis, LLL, lingula pneumonia and severe oral candidiasis * CT chest wo contrast IMPRESSION: Bilateral pneumonia with findings most prominent in the left lower lobe as described. Bronchiectatic changes in left lower lobe noted also. Scattered blebs in the left lung.. * GB Ultrasound IMPRESSION: The gallbladder lumen is contracted. The common bile duct is normal measuring 2 mm. . * CT head without contrast Impression: No acute intracranial abnormality, chronic maxillary and ethmoid sinusitis Hospitalist Physical Gen: cachetic, unkempt, NAD, Awake, Alert, Orientated x 3 HEENT: NCAT, EOMI, PERRL, OP dry and crusty, whitish Neck: supple, no adenopathy, no thyromegaly, no JVD CVS/Heart: RRR, normal S1S2, pulses present bilaterally Chest/Lungs: CTA B, Symmetrical chest expansion, good air entry bilaterally GI/Abdomen: soft, NTND, good bowel sounds, no guarding or rebound /Bladder: no suprapubic tenderness, no CVA or paraspinal tenderness Extermity/Skin: no c/c/e, no obvious rash MSK: FROM x 4 Neuro: CN 2-12 grossly intact, no new focal deficits Psych: calm Subjective Date of service: 09/07/18 Interval history: Patient seen and examined c/o poor appetite, poor historian denies any chest pain Objective - Constitutional Vitals: Vital Signs - 12hr 09/07/18 09/07/18 09/07/18 06:04 09:00 11:08 Temperature 98.6 F 98.6 F Pulse Rate 73 80 63 Respiratory 16 20 18 Rate Blood Pressure 76/45 95/62 Blood Pressure 98/66 [Right] O2 Sat by Pulse 96 95 Oximetry - Labs CBC & Chem 7: 09/09/18 07:31 09/09/18 07:03 Labs: Abnormal lab results 09/07/18 09/07/18 Range/Units 10:38 10:38 Iron 26 L (49-181) ug/dL TIBC 212 L (250-450) mcg/dL Ferritin 2762.0 H (13.0-400.0) ng/mL
--- NOTE | 2018-09-07 15:58 | Gastroenterology Progress Note ---
Assessment and Plan This is a 43 yo male with pmh of HIV/AIDS with noncompliance, oral candidiasis admitted for altered mental status and confusion. History limited. GI consulted for elevated liver enzymes. # Elevated liver enzymes - AST/ALT/Alk phos 200/136/138, this is increased from prior mild elevation noted during last admission. Liver enzymes remains elevated but stable. - more of hepatocelluar pattern. - abdominal US unremarkable but notes only portions of liver examined. - reviewed CT abdomen showing possible enteritis and somewhat inhomogenous liver. - may be due to ischemic hepatitis, HIV/AIDs hepatopathy, infectious etiology with viral hepatitis, vs drug toxicity. Rec: - viral hepatitis panel and ASMA/AMA/iron studies pending. - order HSV/CMV testing. - monitor CMP and INR. - will follow. - agree with ID consult. Spoke with Dr. Ryder today. Subjective Date of service: 09/07/18 Interval history: No acute events o/n. Patient denies abdominal pain, nausea/vomiting. Objective - Constitutional Vitals: Temp Pulse Resp BP Pulse Ox 98.6 F 63 18 95/62 95 09/07/18 11:08 09/07/18 11:08 09/07/18 11:08 09/07/18 11:08 09/07/18 11:08 - EENT ENT: hearing intact, poor dentition, thrush - Neck Neck: supple, normal ROM - Respiratory Respiratory effort: normal Respiratory: bilateral: CTA - Cardiovascular Rhythm: regular - Extremities Extremities: pulses intact, No edema, normal color, Full ROM - Gastrointestinal General gastrointestinal: Present: soft, non-tender, non-distended, normal bowel sounds - Integumentary Integumentary: Present: clear, warm, dry - Musculoskeletal Musculoskeletal: deferred - Labs CBC & Chem 7: 09/06/18 10:40 09/06/18 10:40 Labs: Laboratory Results - last 24 hr 09/07/18 09/07/18 10:38 10:38 Iron 26 L TIBC 212 L Ferritin 2762.0 H - Imaging CT scan: report reviewed
--- NOTE | 2018-09-07 18:35 | Consultation ---
History of Present Illness - Reason for Consult Consult date: 09/07/18 HIV/AIDS Requesting physician: JOSEFINA FAIR - History of Present Illness This patient is a 42 year old male, know to ID from previous admission on 06/23/18-06/19/18 and 07/18/18- 08/04/18 for CAP, HIV/AIDS, severe oral candidiasis and diarrhea. In June CD4 count 11. Viral Load [id number]. HIV genotype 111 with NRTI restrictions. CMV negative. Patient followed up with ID clinic on 08-17-18 with his mother but was still noncompliant with his HAART medication with [facility]. He now [facility] ED on 09/05/18 with altered mental status. On admission WBC 4.6, Creatinine 0.7, Temperature 98.7, HR 91, BP 80/55. U/A was not consistent with a UTI. Chest xray showed no evidence of pneumothorax or pleural fluid collection. Head CT show no acute intracranial abnormality and chronic maxilllary and ethmoid sinusitis. Review of systems unobtainable patient has altered mental status. Past History Past Medical History: other (HIV/AIDS) Past Surgical History: Other (unable to obtain due to altered mental status) Social history: other (unable to obtain due to altered mental status) Family history: other (unable to obtain due to altered mental status) Medications and Allergies Allergies Allergy/AdvReac Type Severity Reaction Status Date / Time No Known Allergies Allergy Verified 07/18/18 14:08 Home Medications Medication Instructions Recorded Confirmed Last Taken Type Azithromycin [Zithromax TAB] 1,200 mg PO QWEEK #4 tablet 06/18/18 07/26/18 Unknown Rx Pantoprazole [Protonix TAB] 40 mg PO DAILY #30 tablet 06/19/18 07/26/18 Unknown Rx Nystas/Diphen/Xyl Visc/Mylanta 15 ml PO TID 14 Days oral.liqd 07/18/18 Unknown Rx [Magic Mouthwash] Nystas/Diphen/Xyl Visc/Mylanta 15 ml PO TID 30 Days #1 udc 07/23/18 Unknown Rx [Magic Mouthwash] Sulfamethoxazole/Trimethoprim 1 each PO QDAY 30 Days #30 tablet 07/23/18 Unknown Rx [Bactrim DS TAB] Posaconazole [Noxafil] 300 mg PO BID 1 Days #6 tablet. 08/03/18 Unknown Rx Posaconazole [Noxafil] 300 mg PO QDAY 13 Days #39 08/03/18 Unknown Rx tablet. Acyclovir [Zovirax Tab] 400 mg PO Q8H 30 Days #90 tab 08/04/18 Unknown Rx Azithromycin [Zithromax TAB] 1,200 mg PO QDAY 30 Days #8 tablet 08/04/18 Unknown Rx Loperamide [Imodium] 2 mg PO Q2H PRN #30 capsule 08/04/18 Unknown Rx Midodrine HCl 2.5 mg PO DAILY #30 tablet 08/04/18 Unknown Rx Active Meds: Active Medications Acetaminophen (Tylenol) 650 mg PO Q4H PRN PRN Reason: Pain MILD(1-3)/Fever >100.5/VILLAREAL Last Admin: 09/06/18 23:52 Dose: 650 mg Documented by: Acetaminophen/Hydrocodone Bitart (Holden 5/325) 1 each PO Q4H PRN PRN Reason: Pain, Moderate (4-6) Enoxaparin Sodium (Lovenox) 40 mg SUB-Q QDAY [facility] Last Admin: 09/07/18 09:16 Dose: Not Given Documented by: Famotidine (Pepcid) 10 mg IV BID [facility] Last Admin: 09/07/18 09:17 Dose: 10 mg Documented by: Fluconazole (Diflucan) 200 mg in 100 mls @ 100 mls/hr IV Q24HR [facility]; Protocol Last Admin: 09/07/18 09:15 Dose: 100 mls/hr Documented by: Dextrose/Sodium Chloride (D5ns) 1,000 mls @ 100 mls/hr IV DIRECT [facility] Last Admin: 09/06/18 18:36 Dose: 100 mls/hr Documented by: Lactulose (Cephulac) 20 gm PO BID [facility] Stop: 09/08/18 09:59 Last Admin: 09/07/18 09:16 Dose: Not Given Documented by: Midodrine (Proamatine) 10 mg PO TID@0800,1200,1600 [facility] Last Admin: 09/07/18 15:02 Dose: 10 mg Documented by: Ondansetron HCl (Zofran) 4 mg IV Q8H PRN PRN Reason: Nausea And Vomiting Sodium Chloride (Sodium Chloride Flush Syringe 10 Ml) 10 ml IV BID [facility] Last Admin: 09/07/18 09:17 Dose: 10 ml Documented by: Sodium Chloride (Sodium Chloride Flush Syringe 10 Ml) 10 ml IV PRN PRN PRN Reason: LINE FLUSH Physical Examination - Physical Exam Narrative exam: Constitutional: Alert, cooperative. Altered mental status Head, Ears, Nose: Normocephalic, atraumatic. External ears, nose normal Eyes: Conjunctivae/corneas clear. No icterus. No ptosis. Neck: Supple, no meningeal signs Oral: dentition poor. , Oral thrush white plague on orophaynx tongue, inner and outer portion of lips. Cardiovascular: S1, S2 normal. Respiratory: Good air entry, clear to auscultation bilaterally GI: Soft, non-tender; bowel sounds normal. No peritoneal signs Musculoskeletal: No pedal edema, no cyanosis. Skin: No rash or abscess. Hem/Lymphatic: No palpable cervical or supraclavicular nodes. No lymphangitis Psych: Mood ok. Affect flat Neurological: Awake, Altered mental status. - Constitutional Vitals: Vital Signs Temp Pulse Resp BP Pulse Ox 99.8 F H 61 18 100/62 98 09/07/18 18:05 09/07/18 18:05 09/07/18 18:05 09/07/18 18:05 09/07/18 18:05 Temperature -Last 24 Hours Temperature 99.8 F Temperature 98.6 F Temperature 98.6 F Temperature 102.3 F Results - Labs CBC & Chem 7: 09/06/18 10:40 09/06/18 10:40 Labs: Abnormal lab results 09/07/18 09/07/18 Range/Units 10:38 10:38 Iron 26 L (49-181) ug/dL TIBC 212 L (250-450) mcg/dL Ferritin 2762.0 H (13.0-400.0) ng/mL Assessment and Plan No blood cultures drawn A/P: 42 year old male, know to ID from previous admission on 06/23/18-06/19/18 and 07/18/18- 08/04/18 for CAP, HIV/AIDS, severe oral candidiasis and diarrhea., last admission in June CD4 count 11. Viral Load [id number]. HIV genotype 111 with NRTI restrictions. CMV negative. Patient followed up with ID clinic on 08-17-18 with his mother but was still noncompliant with his HAART therapy medication with [facility]. Now admitted with: 1. Altered Mental Status: patient was brought to the ER by roomate for AMS. On exam appeared somewhat altered, not answering questions appropriately. CT head shows no acute intracranial abnormality. + chronic maxillary and ethmoid sinusitis. DDX toxoplasmosis, meningoencephalitis, PML. Will order MRI brain with contrast. 2. Oral Candidiasis: Previous admission 07/23/18, CT of face and neck showed small right soft palatine abscess. Minimal response to flucanazole, switched to to IV micafungin. On exam + oral candidiasis, tongue and inner and outer portion of the lips, Will start Micafungin. 3. HIV/AIDS: Last admission in June CD4 count 11. Viral load [id number]. Remains non-compliant with follow up at [facility] for HAART therapy medication. 4. Severe Malnutrition: Plan: -start Micafungin 100 mg IV q day -start Bactrim 1 DS q day -Order MRI Brain with contrast -Order Cryptoccocal antigen d/w Dr. Alkesey Vyas, PASTEURIZER HELPER [facility] M: [phone] O:[phone]
[2018-09-07] MEDS: D5NS 1,000 ML IV SCH (19:30)
[2018-09-07] MEDS: BACTRIM DS PO SCH (22:34)
[2018-09-07] MEDS: MYCAMINE 100 MG in NACL 0.9% 100 ML IV SCH (22:34)
[2018-09-08] MEDS: D5NS 1,000 ML IV SCH ×2 (04:13→11:58)
[2018-09-08] MEDS: TYLENOL PO PRN (05:09)
[2018-09-08 06:56] LABS: Basophils % (Auto) 0.2 % (0.0-1.8); Hematocrit 25.2 % (35.5-45.6); Hemoglobin 8.3 gm/dl (11.8-15.2); Lymphocytes # (Auto) 0.3 K/mm3 (1.2-5.4); Lymphocytes % (Auto) 6.1 % (13.4-35.0); Mean Corpuscular HGB Conc 33 % (32-34); Mean Corpuscular Volume 88 fl (84-94); Monocytes # (Auto) 0.3 K/mm3 (0.0-0.8); Monocytes % (Auto) 6.4 % (0.0-7.3); Platelet Count 123 K/mm3 (140-440); Red Blood Count 2.86 M/mm3 (3.65-5.03); Red Cell Distribution Width 18.3 % (13.2-15.2)
[2018-09-08 07:18] LABS: BUN/Creatinine Ratio 8; Blood Urea Nitrogen 6 mg/dL (9-20); Calcium 7.5 mg/dL (8.4-10.2); Hemolysis Index 2
[2018-09-08] MEDS: PROAMATINE PO SCH ×3 (08:00→18:35)
--- NOTE | 2018-09-08 09:04 | Progress Note ---
Assessment and Plan Culture 09/07/2018 Cryptococcal Antigen: negative 09/07/2018 Blood: In progress A/P: 42 year old male, know to ID from previous admission on 06/23/18-06/19/18 and 07/18/18- 08/04/18 for CAP, HIV/AIDS, severe oral candidiasis and diarrhea., last admission in June CD4 count 11. Viral Load [id number]. HIV genotype 111 with NRTI restrictions. CMV negative. Patient followed up with ID clinic on 08-17-18 with his mother but was still noncompliant with his HAART therapy medication with [facility]. Now admitted with: 1. Altered Mental Status: Due to acute metabolic encephalopathy. On exam appeared somewhat altered, not answering questions appropriately. CT head shows no acute intracranial abnormality. + chronic maxillary and ethmoid sinusitis. Will need MRI to eval for possibility of INDIGO MIXER lesions: toxoplasma, PML, space occupying lesions, Cryptococcal meningitis. Brain MRI report pending. 2. Oral Candidiasis: Previous admission 07/23/18, CT of face and neck showed small right soft palatine abscess. Minimal response to flucanazole, switched to to IV micafungin. On exam + oral candidiasis, tongue and inner and outer portion of the lips, Will start Micafungin. 3. HIV/AIDS: Last admission in June CD4 count 11. Viral load [id number]. Remains non-compliant with follow up at [facility] for HAART therapy medication. 4. Severe Malnutrition: dietary consult 5. Worsening Transaminitis: elevated liver enzymes from last admission. Abdominal ultrasound unremarkable. CT abdomen showing possible enteritis and somewhat inhomogenous liver. may be due to ischemic hepatitis, HIV/AIDs hepatopathy, infectious etiology with viral hepatitis, vs drug toxicity- GI following. 6. New Fevers: noted fever spike of 102.2, etiology unknown. Multifactoral, noted above. Blood cultures ordered. 7. CAP vs PCP: Chest CT shows Bilateral pneumonia with findings most prominent in the left lower lobe as described. Bronchiectatic changes in left lower lobe noted also. Scattered blebs in the left lung.. Started IV Bactrim for PCP pneumonia. Plan: -continue Micafungin 100 mg IV q day, D2 -Switch to Bactrim IV - f/u MRI Brain - report pending -f/u blood cultures -Ordered Fungal blood cultures, fungitell -order CMV PCR -consider hospice, patient remains noncompliant with HIV Dee Vyas NP [facility] M: [phone] O:[phone] Subjective Date of service: 09/08/18 Interval history: Patient seen and examined. Asleep, easily arousable. Non-conversant. No acute distress observed. Objective - Exam Narrative Exam: Constitutional: Asleep, easily arousable. no acute distress. AMS. cachexia Head, Ears, Nose: Normocephalic, atraumatic. External ears, nose normal Eyes: Conjunctivae/corneas clear. No icterus. No ptosis. Neck: Supple, no meningeal signs Oral: dentition poor. , Oral thrush white plague on orophaynx tongue, inner and outer portion of lips. Cardiovascular: S1, S2 normal. Respiratory: Good air entry, clear to auscultation bilaterally GI: Soft, non-tender; bowel sounds normal. No peritoneal signs Musculoskeletal: No pedal edema, no cyanosis. Skin: No rash or abscess. Hem/Lymphatic: No palpable cervical or supraclavicular nodes. No lymphangitis Psych: Mood ok. Affect flat Neurological: Sleepy, easily arousable, mostly non- conversant - Constitutional Vitals: Vital Signs Temp Pulse Resp BP Pulse Ox 100.6 F H 96 H 20 92/52 96 09/08/18 06:14 09/08/18 04:41 09/08/18 04:41 09/08/18 04:41 09/08/18 04:41 Temperature -Last 24 Hours Temperature 100.6 F Temperature 102.2 F Temperature 98.6 F Temperature 99.8 F Temperature 98.6 F - Labs CBC & Chem 7: 09/08/18 06:39 09/08/18 06:39 Labs: Abnormal lab results 09/07/18 09/07/18 09/08/18 Range/Units 10:38 10:38 06:39 RBC 2.86 L (3.65-5.03) M/mm3 Hgb 8.3 L (11.8-15.2) gm/dl Hct 25.2 L (35.5-45.6) % RDW 18.3 H (13.2-15.2) % Plt Count 123 L (140-440) K/mm3 Lymph % (Auto) 6.1 L (13.4-35.0) % Lymph # 0.3 L (1.2-5.4) K/mm3 Seg Neutrophils % 87.3 H (40.0-70.0) % Potassium (3.6-5.0) mmol/L Chloride (98-107) mmol/L Carbon Dioxide (22-30) mmol/L BUN (9-20) mg/dL Glucose (75-100) mg/dL Calcium (8.4-10.2) mg/dL Iron 26 L (49-181) ug/dL TIBC 212 L (250-450) mcg/dL Ferritin 2762.0 H (13.0-400.0) ng/mL 09/08/18 Range/Units 06:39 RBC (3.65-5.03) M/mm3 Hgb (11.8-15.2) gm/dl Hct (35.5-45.6) % RDW (13.2-15.2) % Plt Count (140-440) K/mm3 Lymph % (Auto) (13.4-35.0) % Lymph # (1.2-5.4) K/mm3 Seg Neutrophils % (40.0-70.0) % Potassium 3.2 L (3.6-5.0) mmol/L Chloride 111.9 H (98-107) mmol/L Carbon Dioxide 13 L (22-30) mmol/L BUN 6 L (9-20) mg/dL Glucose 118 H (75-100) mg/dL Calcium 7.5 L (8.4-10.2) mg/dL Iron (49-181) ug/dL TIBC (250-450) mcg/dL Ferritin (13.0-400.0) ng/mL
[2018-09-08 09:53] LABS: Hepatitis B Surface Antigen Non-Reactive (Negative); Hepatitis C Virus Antibody Non-Reactive (NonReactive)
[2018-09-08] MEDS: PEPCID IV SCH ×2 (11:46→21:44)
[2018-09-08] MEDS: LOVENOX SUB-Q SCH (11:46)
[2018-09-08] MEDS: BACTRIM DS PO SCH ×2 (11:46→12:08)
[2018-09-08] MEDS: SODIUM CHLORIDE FLUSH SYRINGE 10 ML IV SCH ×2 (11:49→21:44)
--- NOTE | 2018-09-08 12:06 | Gastroenterology Progress Note ---
Assessment and Plan This is a 43 yo male with pmh of HIV/AIDS with noncompliance, oral candidiasis admitted for altered mental status and confusion. History limited. GI consulted for elevated liver enzymes. 1 Elevated liver enzymes - AST/ALT/Alk phos 263/143/110, this is increased from prior mild elevation noted during last admission. Liver enzymes remains elevated but stable. - more of hepatocelluar pattern. -hepatitis panel negative -iron 26, TIBC 212, Ferritin 2762 - abdominal US unremarkable but notes only portions of liver examined. - reviewed CT abdomen showing possible enteritis and somewhat inhomogenous liver. - may be due to ischemic hepatitis, HIV/AIDs hepatopathy, infectious etiology with viral hepatitis, vs drug toxicity. Rec: - ASMA/AMA pending. - order HSV/CMV testing. - monitor CMP and INR. - ID following - will follow 2.Altered mental status -MRI pending to eval for possibility of COLOR MATCHER lesions: toxoplasma, PML, space occupying lesions, Cryptococcal meningitis. 3.oral candidiasis -on micafungin 4.HIV/AIDS -noncompliant with f/u at [facility] for HAART therapy medication 5.fever -blood cultures pending Subjective Date of service: 09/08/18 Principal diagnosis: elevated LFTs, oral candidiasis Interval history: No acute distress. Denies abd pain or N/V. Objective - Constitutional Vitals: Temp Pulse Resp BP Pulse Ox 100.6 F H 96 H 20 92/52 96 09/08/18 06:14 09/08/18 04:41 09/08/18 04:41 09/08/18 04:41 09/08/18 04:41 General appearance: no acute distress - EENT ENT: thrush - Respiratory Respiratory effort: normal - Cardiovascular Rhythm: regular - Gastrointestinal General gastrointestinal: Present: soft, non-tender, non-distended, normal bowel sounds - Labs CBC & Chem 7: 09/08/18 06:39 09/08/18 06:39 Labs: Laboratory Results - last 24 hr 09/07/18 09/08/18 09/08/18 10:38 06:39 06:39 WBC 5.2 RBC 2.86 L Hgb 8.3 L Hct 25.2 L MCV 88 MCH 29 MCHC 33 RDW 18.3 H Plt Count 123 L Lymph % (Auto) 6.1 L [place] % (Auto) 6.4 Eos % (Auto) 0.0 Baso % (Auto) 0.2 Lymph # 0.3 L [place] # 0.3 Eos # 0.0 Baso # 0.0 Seg Neutrophils % 87.3 H Seg Neutrophils # 4.5 Sodium Potassium Chloride Carbon Dioxide Anion Gap BUN Creatinine Estimated GFR BUN/Creatinine Ratio Glucose Calcium Ferritin 2762.0 H Hepatitis A IgM Ab Non-reactive Hep Bs Antigen Non-reactive Hep B Core IgM Ab Non-reactive Hepatitis C Antibody Non-reactive 09/08/18 06:39 WBC RBC Hgb Hct MCV MCH MCHC RDW Plt Count Lymph % (Auto) [place] % (Auto) Eos % (Auto) Baso % (Auto) Lymph # [place] # Eos # Baso # Seg Neutrophils % Seg Neutrophils # Sodium 137 Potassium 3.2 L Chloride 111.9 H Carbon Dioxide 13 L Anion Gap 15 BUN 6 L Creatinine 0.8 Estimated GFR > 60 BUN/Creatinine Ratio 8 Glucose 118 H Calcium 7.5 L Ferritin Hepatitis A IgM Ab Hep Bs Antigen Hep B Core IgM Ab Hepatitis C Antibody
[2018-09-08 14:36] LABS: Alanine Aminotransferase 87 units/L (7-56); Albumin 2.6 g/dL (3.9-5)
[2018-09-08 14:41] LABS: Bilirubin,Direct < 0.2 mg/dL (0-0.2)
--- NOTE | 2018-09-08 17:00 | Progress Note ---
Assessment and Plan /AMS due to acute metabolic encephalopathy: CT head shows no acute intracranial abnormality. + chronic maxillary and ethmoid sinusitis. Per ID Will need MRI to eval for possibility of SOLUTIONS ENGINEER lesions: toxoplasma, PML, space occupying lesions, Cryptococcal meningitis. Brain MRI report pending. Continue supportive care /HIV/AIDs: consulted ID, patient is noncompliant. Offered hospice per ID, he and family making decision /Worsening Transaminitis: consulted GI, cmp daily, - abdominal US unremarkable but notes only portions of liver examined. - reviewed CT abdomen showing possible enteritis and somewhat inhomogenous liver. - may be due to ischemic hepatitis, HIV/AIDs hepatopathy, infectious etiology with viral hepatitis, vs drug toxicity. /AOCD: monitor cbc daily /Severe Malnutrition: consulted Superintendent Operating /? Acute Renal Failure, vasomotor nephropathy, poa, Cr is 1.0, up from baseline of 0.5: treat with IVF and bmp/cmp daily, /Oral Candidiasis, treated, tolerating a diet, will monitor, GI consulted /Non-adherence to medical therapy: counseling done /Lactic acidosis, Resolved status post IV hydration /Hyperammonemia-Lactulose ordered but patient refuses /Chronic hypotension, on midodrine DVT prophylaxis with Lovenox but pt is refusing, counseling done again Disposition: continue inpatient care Brief History Patient is a 42 yo man with a history of HIV/AIDs and anemia who presented to [facility] ED with AMS. Patient was just discharged from here on 08/04/2018 for sepsis, LLL, lingula pneumonia and severe oral candidiasis * CT chest wo contrast IMPRESSION: Bilateral pneumonia with findings most prominent in the left lower lobe as described. Bronchiectatic changes in left lower lobe noted also. Scattered blebs in the left lung.. * GB Ultrasound IMPRESSION: The gallbladder lumen is contracted. The common bile duct is normal measuring 2 mm. . * CT head without contrast Impression: No acute intracranial abnormality, chronic maxillary and ethmoid sinusitis Hospitalist Physical Gen: cachetic, unkempt, NAD, Awake, Alert, does not answers appropriately HEENT: NCAT, EOMI, PERRL, OP dry and crusty, whitish Neck: supple, no adenopathy, no thyromegaly, no JVD CVS/Heart: RRR, normal S1S2, pulses present bilaterally Chest/Lungs: CTA B, Symmetrical chest expansion, good air entry bilaterally GI/Abdomen: soft, NTND, good bowel sounds, no guarding or rebound /Bladder: no suprapubic tenderness, no CVA or paraspinal tenderness Extermity/Skin: no c/c/e, no obvious rash MSK: FROM x 4 Neuro: CN 2-12 grossly intact, no new focal deficits Psych: calm Subjective Date of service: 09/08/18 Principal diagnosis: elevated LFTs, oral candidiasis Interval history: Patient seen and examined c/o poor appetite, poor historian denies any chest pain Clinically unchanged Objective - Constitutional Vitals: Vital Signs - 12hr 09/08/18 09/08/18 06:14 11:41 Temperature 100.6 F H 98.2 F Pulse Rate 77 Respiratory 18 Rate Blood Pressure 94/51 O2 Sat by Pulse 98 Oximetry - Labs CBC & Chem 7: 09/09/18 07:31 09/09/18 07:03 Labs: Abnormal lab results 09/08/18 09/08/18 09/08/18 Range/Units 06:39 06:39 13:43 RBC 2.86 L (3.65-5.03) M/mm3 Hgb 8.3 L (11.8-15.2) gm/dl Hct 25.2 L (35.5-45.6) % RDW 18.3 H (13.2-15.2) % Plt Count 123 L (140-440) K/mm3 Lymph % (Auto) 6.1 L (13.4-35.0) % Lymph # 0.3 L (1.2-5.4) K/mm3 Seg Neutrophils % 87.3 H (40.0-70.0) % Potassium 3.2 L (3.6-5.0) mmol/L Chloride 111.9 H (98-107) mmol/L Carbon Dioxide 13 L (22-30) mmol/L BUN 6 L (9-20) mg/dL Glucose 118 H (75-100) mg/dL Calcium 7.5 L (8.4-10.2) mg/dL AST 117 H (5-40) units/L ALT 87 H (7-56) units/L Total Protein 5.6 L (6.3-8.2) g/dL Albumin 2.6 L (3.9-5) g/dL
[2018-09-08] MEDS ORDERED: D5W IV SCH (18:00)
[2018-09-08] MEDS ORDERED: BACTRIM IV SCH (18:00)
[2018-09-08] MEDS: BACTRIM IV SCH (18:37)
[2018-09-08] MEDS: D5W IV SCH (18:37)
--- NOTE | 2018-09-08 19:39 | Magnetic Resonance Report ---
PROCEDURE: MRI brain without with contrast. TECHNIQUE: Magnetic resonance imaging of the brain was performed before and after the IV injection o f paramagnetic contrast. HISTORY: Altered mental status, HIV. COMPARISONS: CT head 09/04/2018. FINDINGS: There is mild cerebral atrophy. There is mild FLAIR signal abnormality in the periventricular deep wh ite matter. This may represent chronic microvascular ischemic change. There are no mass lesions. Ther e is no intracranial hemorrhage. There are no signs of restricted diffusion. There are no signs of ab normal contrast enhancement. The mastoid air cells and paranasal sinuses are well aerated. IMPRESSION: Mild cerebral atrophy and mild white matter disease. This document is electronically signed by Martir Bradshaw MD., September 08 2018 07:36:56 PM ET
[2018-09-08] MEDS: MYCAMINE 100 MG in NACL 0.9% 100 ML IV SCH (21:44)
[2018-09-09] MEDS ORDERED: NACL 0.9% 250ML 250 ML IV ONE (00:01)
[2018-09-09] MEDS: BACTRIM IV SCH ×3 (02:16→18:21)
[2018-09-09] MEDS: D5W IV SCH ×3 (02:16→18:21)
[2018-09-09] MEDS: D5NS 1,000 ML IV SCH ×3 (05:50→18:27)
[2018-09-09] MEDS: TYLENOL PO PRN (06:44)
[2018-09-09] MEDS ORDERED: NACL 0.9% 1000 ML 1,000 ML ONE (07:18)
[2018-09-09] MEDS: PROAMATINE PO SCH ×3 (07:36→17:25)
[2018-09-09 07:46] LABS: Hematocrit 24.6 % (35.5-45.6); Hemoglobin 8.2 gm/dl (11.8-15.2); Mean Corpuscular HGB Conc 33 % (32-34); Mean Corpuscular Volume 87 fl (84-94); Platelet Count 136 K/mm3 (140-440); Red Blood Count 2.82 M/mm3 (3.65-5.03); Red Cell Distribution Width 18.8 % (13.2-15.2)
[2018-09-09] MEDS ORDERED: NACL 0.9% 1000 ML 1,000 ML IV ONE (08:00)
[2018-09-09] MEDS ORDERED: LEVOPHED DRIP 4 MG/NS 250 ML 4 MG/250 ML BAG IV SCH (08:00)
[2018-09-09 08:02] LABS: Alanine Aminotransferase 86 units/L (7-56); Albumin 2.6 g/dL (3.9-5); BUN/Creatinine Ratio 4; Blood Urea Nitrogen 4 mg/dL (9-20); Calcium 7.5 mg/dL (8.4-10.2); Hemolysis Index 2
[2018-09-09] MEDS: LOVENOX SUB-Q SCH (09:03)
[2018-09-09] MEDS: PEPCID IV SCH ×2 (09:03→22:55)
[2018-09-09] MEDS: SODIUM CHLORIDE FLUSH SYRINGE 10 ML IV SCH ×2 (09:15→23:07)
[2018-09-09] MEDS ORDERED: K-DUR PO ONE (10:00)
--- NOTE | 2018-09-09 10:23 | Event Note ---
Date: 09/09/18 Transferred to ICU for low blood pressure/fevers. Patient seen and examined. vitals, labs,medications, chart and imaging reviewed. Patient has responded to IVF and is not requiring vasopressor support for now. No hemodynamic instability at this time. Transfer IMCU, continue with volume support. Will follow closely. Full consult to follow.
--- NOTE | 2018-09-09 10:53 | Gastroenterology Progress Note ---
Assessment and Plan This is a 43 yo male with pmh of HIV/AIDS with noncompliance, oral candidiasis admitted for altered mental status and confusion. History limited. GI consulted for elevated liver enzymes. # Elevated liver enzymes - AST/ALT/Alk phos 200/136/138 on admission, this is increased from prior mild elevation noted during last admission. - more of hepatocelluar pattern. - abdominal US unremarkable but notes only portions of liver examined. - reviewed CT abdomen showing possible enteritis and somewhat inhomogenous liver. - may be due to ischemic hepatitis, HIV/AIDs hepatopathy, infectious etiology with viral hepatitis, vs drug toxicity. - acute hepatitis panel negative. - Liver enzymes trending down and stable currently. - transferred to ICU with code met for hypotension and fever on 09/09/2018, this morning. Rec: - ASMA/AMA/iron studies pending. - HSV/CMV testing pending. - monitor CMP and INR. - will follow. - ID on board. - management for sepsis per primary team. - will follow labs with CMP. no further recommendations at this time. Can consider liver biopsy either inpatient or outpatient once acute issues with sep sis resolve. Subjective Date of service: 09/09/18 Principal diagnosis: elevated LFTs, oral candidiasis Interval history: Patient transferred to ICU for hypotension and fever. Denies abdominal pain. Limited history. Objective - Constitutional Vitals: Temp Pulse Resp BP Pulse Ox 98.7 F 62 24 93/61 97 09/09/18 08:20 09/09/18 09:31 09/09/18 09:31 09/09/18 09:31 09/09/18 09:31 - EENT ENT: hearing intact, poor dentition, thrush - Neck Neck: supple - Respiratory Respiratory effort: normal Respiratory: bilateral: CTA - Cardiovascular Rhythm: regular - Extremities Extremities: pulses intact, No edema, normal color, Full ROM - Gastrointestinal General gastrointestinal: Present: soft, non-tender, non-distended, normal bowel sounds - Integumentary Integumentary: Present: clear, warm - Psychiatric Psychiatric: cooperative - Labs CBC & Chem 7: 09/09/18 07:31 09/09/18 07:03 Labs: Laboratory Results - last 24 hr 09/05/18 09/05/18 09/08/18 16:19 16:19 13:43 WBC RBC Hgb Hct MCV MCH MCHC RDW Plt Count Sodium Potassium Chloride Carbon Dioxide Anion Gap BUN Creatinine Estimated GFR BUN/Creatinine Ratio Glucose POC Glucose Calcium Total Bilirubin 0.30 Direct Bilirubin < 0.2 AST 117 H ALT 87 H Alkaline Phosphatase 111 Total Protein 5.6 L Albumin 2.6 L Albumin/Globulin Ratio 0.9 Sm (Starkey) Antibody <1.0 Mitochondria M2 Ab <=20.0 09/09/18 09/09/18 09/09/18 07:03 07:18 07:31 WBC 3.5 L RBC 2.82 L Hgb 8.2 L Hct 24.6 L MCV 87 MCH 29 MCHC 33 RDW 18.8 H Plt Count 136 L Sodium 138 Potassium 3.5 L Chloride 108.6 H Carbon Dioxide 15 L Anion Gap 18 BUN 4 L Creatinine 0.9 Estimated GFR > 60 BUN/Creatinine Ratio 4 Glucose 91 POC Glucose 91 Calcium 7.5 L Total Bilirubin 0.20 Direct Bilirubin AST 130 H ALT 86 H Alkaline Phosphatase 114 Total Protein 6.0 L Albumin 2.6 L Albumin/Globulin Ratio 0.8 Sm (Starkey) Antibody Mitochondria M2 Ab - Imaging MRI: report reviewed
--- NOTE | 2018-09-09 13:26 | Consultation ---
History of Present Illness Consult date: 09/09/18 Requesting physician: SNEHA ZARAGOZA Reason for consult: other (Severe sepsis) History of present illness: This patient is a 42 year old male,previous admission on 06/23/18-06/19/18 and 07/18/18- 08/04/18 for CAP, HIV/AIDS, severe oral candidiasis and diarrhea. In June CD4 count 11. Viral Load [id number]. HIV genotype 111 with NRTI restrictions. He presented to [facility] ED with AMS. * CT chest wo contrast IMPRESSION: Bilateral pneumonia with findings most prominent in the left lower lobe as described. * Bronchiectatic changes in left lower lobe noted also. Scattered blebs in the left lung.. * GB Ultrasound IMPRESSION: The gallbladder lumen is contracted. The common bile duct is normal measuring 2 mm. . * CT head without contrast Impression: No acute intracranial abnormality, chronic maxillary and ethmoid sinusitis On admission WBC 4.6, Creatinine 0.7, Temperature 98.7, HR 91, BP 80/55. U/A was not consistent with a UTI. Chest xray showed no evidence of pneumothorax or pleural fluid collection. Was being treated on the medical floor. He developed hypotension this morning, he received a fluid bolus and was transferred to the ICU in anticipation that he may need vasopressor support. I have been consulted for critical care management. Patient was seen and examined. Vitals, labs medications, chart and imaging reviewed. He is awake and alert, monosyllabic answers to questions. Review of systems Constitutional: denies: fever ENT: denies: throat or neck pain Respiratory: denies: cough, shortness of breath Cardiovascular: denies: chest pain Endocrine: denies unexplained weight loss or gain Gastrointestinal: denies: abdominal pain, nausea Genitourinary: denies: dysuria Rectal: denies no incontinence, no bleeding, no itching, no discharge Musculoskeletal: denies swelling, myaglia, muscle weakness Skin: denies: rash Neurological: denies: headache Hematological/Lymphatic: denies: easy bleeding or easy bruising Allergic/Immunologic: no urticaria, no allergic rhinitis, no anaphylaxis Psych: denies sadness or hopelessness, SI/HI Past History Past Medical History: other (HIV/AIDS) Past Surgical History: Other (unable to obtain due to altered mental status) Social history: other (unable to obtain due to altered mental status) Family history: other (unable to obtain due to altered mental status) Medications and Allergies Allergies Allergy/AdvReac Type Severity Reaction Status Date / Time No Known Allergies Allergy Verified 07/18/18 14:08 Home Medications Medication Instructions Recorded Confirmed Last Taken Type Azithromycin [Zithromax TAB] 1,200 mg PO QWEEK #4 tablet 06/18/18 07/26/18 Unknown Rx Pantoprazole [Protonix TAB] 40 mg PO DAILY #30 tablet 06/19/18 07/26/18 Unknown Rx Nystas/Diphen/Xyl Visc/Mylanta 15 ml PO TID 14 Days oral.liqd 07/18/18 Unknown Rx [Magic Mouthwash] Nystas/Diphen/Xyl Visc/Mylanta 15 ml PO TID 30 Days #1 udc 07/23/18 Unknown Rx [Magic Mouthwash] Sulfamethoxazole/Trimethoprim 1 each PO QDAY 30 Days #30 tablet 07/23/18 Unknown Rx [Bactrim DS TAB] Posaconazole [Noxafil] 300 mg PO BID 1 Days #6 tablet. 08/03/18 Unknown Rx Posaconazole [Noxafil] 300 mg PO QDAY 13 Days #39 08/03/18 Unknown Rx tablet. Acyclovir [Zovirax Tab] 400 mg PO Q8H 30 Days #90 tab 08/04/18 Unknown Rx Azithromycin [Zithromax TAB] 1,200 mg PO QDAY 30 Days #8 tablet 08/04/18 Unknown Rx Loperamide [Imodium] 2 mg PO Q2H PRN #30 capsule 08/04/18 Unknown Rx Midodrine HCl 2.5 mg PO DAILY #30 tablet 08/04/18 Unknown Rx Active Meds: Active Medications Acetaminophen (Tylenol) 650 mg PO Q4H PRN PRN Reason: Pain MILD(1-3)/Fever >100.5/VILLAREAL Last Admin: 09/09/18 06:44 Dose: 650 mg Documented by: Acetaminophen/Hydrocodone Bitart ([place] 5/325) 1 each PO Q4H PRN PRN Reason: Pain, Moderate (4-6) Enoxaparin Sodium (Lovenox) 40 mg SUB-Q QDAY [facility] Last Admin: 09/09/18 09:03 Dose: 40 mg Documented by: Famotidine (Pepcid) 10 mg IV BID [facility] Last Admin: 09/09/18 09:03 Dose: 10 mg Documented by: Dextrose/Sodium Chloride (D5ns) 1,000 mls @ 100 mls/hr IV DIRECT [facility] Last Admin: 09/09/18 09:04 Dose: 100 mls/hr Documented by: Micafungin Sodium 100 mg/ (Sodium Chloride) 100 mls @ 100 mls/hr IV DAILY@2000 [facility]; Protocol Last Admin: 09/08/18 21:44 Dose: 100 mls/hr Documented by: Trimethoprim/Sulfamethoxazole (320 mg/ Dextrose) 520 mls @ 343.75 mls/hr IV Q8H [facility] Last Admin: 09/09/18 09:21 Dose: 343.75 mls/hr Documented by: Norepinephrine (Levophed Drip 4 Mg/Ns 250 Ml) 4 mg in 250 mls @ 7.5 mls/hr IV TITR [facility]; Protocol Last Titration: 09/09/18 13:15 Dose: 0 mcg/min, 0 mls/hr Documented by: Midodrine (Proamatine) 10 mg PO TID@0800,1200,1600 [facility] Last Admin: 09/09/18 13:12 Dose: 10 mg Documented by: Ondansetron HCl (Zofran) 4 mg IV Q8H PRN PRN Reason: Nausea And Vomiting Sodium Chloride (Sodium Chloride Flush Syringe 10 Ml) 10 ml IV BID [facility] Last Admin: 09/09/18 09:15 Dose: 10 ml Documented by: Sodium Chloride (Sodium Chloride Flush Syringe 10 Ml) 10 ml IV PRN PRN PRN Reason: LINE FLUSH Physical Examination Vital signs: Vital Signs Temp Pulse Resp BP Pulse Ox 98.7 F 98 H 14 107/58 100 09/04/18 20:22 09/04/18 20:22 09/04/18 20:22 09/04/18 20:22 09/04/18 20:22 Gen: WDWN, NAD, Awake, Alert, Oriented, chronically ill looking with wasting of his temples HEENT: NCAT, EOMI, PERRL, OP Clear Neck: supple, no adenopathy, no thyromegaly, no JVD CVS/Heart: RRR, normal S1S2, pulses present bilaterally Chest/Lungs: CTA B, Symmetrical chest expansion, good air entry bilaterally GI/Abdomen: soft, NTND, good bowel sounds, no guarding or rebound /Bladder: no suprapubic tenderness, no CVA or paraspinal tenderness Extermity/Skin: no c/c/e, no obvious rash MSK: FROM x 4 Neuro: CN 2-12 grossly intact, no new focal deficits Psych: calm, flat affect Results - Laboratory Findings CBC and BMP: 09/10/18 04:26 09/10/18 04:26 PT/INR, D-dimer PT 13.7 Sec. (12.2-14.9) 09/05/18 16:19 INR 0.99 (0.87-1.13) 09/05/18 16:19 Abnormal lab findings: Abnormal Labs 09/04/18 09/04/18 09/04/18 21:00 21:00 22:32 WBC RBC 3.23 L Hgb 9.6 L Hct 28.9 L RDW 18.8 H Plt Count Lymph % (Auto) [place] % (Auto) 12.5 H Lymph # 0.7 L Seg Neutrophils % 72.4 H Potassium Chloride 109.9 H Carbon Dioxide 21 L BUN 31 H Creatinine Glucose Lactic Acid 2.40 H* Calcium 8.2 L Iron TIBC Ferritin AST 200 H ALT 136 H Alkaline Phosphatase 138 H Ammonia Total Protein Albumin 3.5 L 09/04/18 09/05/18 09/05/18 22:32 16:19 16:19 WBC RBC Hgb Hct RDW Plt Count Lymph % (Auto) [place] % (Auto) Lymph # Seg Neutrophils % Potassium Chloride 112.4 H Carbon Dioxide 19 L BUN Creatinine Glucose Lactic Acid Calcium 8.1 L Iron TIBC 223 L Ferritin AST 241 H ALT 138 H Alkaline Phosphatase Ammonia 64.0 H Total Protein Albumin 3.1 L 09/05/18 09/06/18 09/06/18 16:19 10:40 10:40 WBC 2.4 L RBC 2.67 L Hgb 7.7 L Hct 23.7 L RDW 18.7 H Plt Count 135 L Lymph % (Auto) 10.0 L [place] % (Auto) 8.4 H Lymph # 0.2 L Seg Neutrophils % 81.1 H Potassium Chloride 112.1 H Carbon Dioxide 19 L BUN Creatinine 0.7 L Glucose Lactic Acid Calcium 7.8 L Iron TIBC Ferritin 2880.0 H AST 263 H ALT 143 H Alkaline Phosphatase Ammonia Total Protein 6.1 L Albumin 2.8 L 09/07/18 09/07/18 09/08/18 10:38 10:38 06:39 WBC RBC 2.86 L Hgb 8.3 L Hct 25.2 L RDW 18.3 H Plt Count 123 L Lymph % (Auto) 6.1 L [place] % (Auto) Lymph # 0.3 L Seg Neutrophils % 87.3 H Potassium Chloride Carbon Dioxide BUN Creatinine Glucose Lactic Acid Calcium Iron 26 L TIBC 212 L Ferritin 2762.0 H AST ALT Alkaline Phosphatase Ammonia Total Protein Albumin 09/08/18 09/08/18 09/09/18 06:39 13:43 07:03 WBC RBC Hgb Hct RDW Plt Count Lymph % (Auto) [place] % (Auto) Lymph # Seg Neutrophils % Potassium 3.2 L 3.5 L Chloride 111.9 H 108.6 H Carbon Dioxide 13 L 15 L BUN 6 L 4 L Creatinine Glucose 118 H Lactic Acid Calcium 7.5 L 7.5 L Iron TIBC Ferritin AST 117 H 130 H ALT 87 H 86 H Alkaline Phosphatase Ammonia Total Protein 5.6 L 6.0 L Albumin 2.6 L 2.6 L 09/09/18 07:31 WBC 3.5 L RBC 2.82 L Hgb 8.2 L Hct 24.6 L RDW 18.8 H Plt Count 136 L Lymph % (Auto) [place] % (Auto) Lymph # Seg Neutrophils % Potassium Chloride Carbon Dioxide BUN Creatinine Glucose Lactic Acid Calcium Iron TIBC Ferritin AST ALT Alkaline Phosphatase Ammonia Total Protein Albumin - Diagnostic Findings Chest x-ray: image reviewed CT scan - chest: image reviewed Assessment and Plan Severe sepsis on background of chronic hypotension AMS due to acute metabolic encephalopathy: HIV/AIDS Panycytopenia Severe protein calorie malnutrition Transaminitis - may be due to ischemic hepatitis, HIV/AIDs hepatopathy, infectious etiology w ith viral hepatitis, vs drug toxicity. Anemia of chronic disease Acute Renal Failure, resolved Oral Candidiasis Non-adherence to medical therapy Hyperammonemia -Volume resuscitate as tolerated. He is asymptomatic with the hypotension. -Continue midodrine -Anti-infective per ID service -Nutritional support -SCDs for VTE prophylaxis, patient declines pharmacologic prophylaxis -PT/OT to treat -Limit blood draws, in view of anemia Discussed care plan with hospitalist service. Plan to transfer [facility], once his systolic blood pressure improves. He remains asymptomatic
--- NOTE | 2018-09-09 14:12 | Progress Note ---
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 + chronic maxillary and ethmoid sinusitis. s/p MRI brain to eval for possibility of [employer]E [employer]AX EXPERT lesions: toxoplasma, PML, space occupying lesions, Cryptococcal meningitis. Brain MRI report showed no acute process. Continue supportive care /HIV/AIDs: consulted ID, patient is noncompliant. Offered hospice per ID, patient refused /Worsening Transaminitis: consulted GI, cmp daily, - abdominal US unremarkable but notes only portions of liver examined. - reviewed CT abdomen showing possible enteritis and somewhat inhomogenous liver. - may be due to ischemic hepatitis, HIV/AIDs hepatopathy, infectious etiology with viral hepatitis, vs drug toxicity. /AOCD: monitor cbc daily /Severe Malnutrition: consulted Medication Care Manager /? Acute Renal Failure, vasomotor nephropathy, poa, Cr is 1.0, up from baseline of 0.5: treat with IVF and bmp/cmp daily, /Oral Candidiasis, treated, tolerating diet, will monitor, /Non-adherence to medical therapy: counseling done /Lactic acidosis, Resolved status post IV hydration /Hyperammonemia-Lactulose ordered but patient refuses DVT prophylaxis with Lovenox but pt is refusing, counseling done again Disposition: continue inpatient care The high probability of a clinically significant, sudden or life threatening deterioration of the [multiple] system(s) required my full and direct attention, intervention and personal management. The aggregate critical care time was [45] minutes. This time is in addition to time spent performing reported procedures but includes the following: [x] Data Review and interpretation [x] Patient assessment and monitoring of vital signs [x] Documentation [x] Medication orders and management Brief History Patient is a 42 yo man with a history of HIV/AIDs and anemia who presented to [facility] ED with AMS. Patient was just discharged from here on 08/04/2018 for sepsis, LLL, lingula pneumonia and severe oral candidiasis * CT chest wo contrast IMPRESSION: Bilateral pneumonia with findings most prominent in the left lower lobe as described. Bronchiectatic changes in left lower lobe noted also. Scattered blebs in the left lung.. * GB Ultrasound IMPRESSION: The gallbladder lumen is contracted. The common bile duct is normal measuring 2 mm. . * CT head without contrast Impression: No acute intracranial abnormality, chronic maxillary and ethmoid sinusitis * MRI Brain; Mild cerebral atrophy and mild white matter disease. Hospitalist Physical Gen: cachetic, NAD, Awake, Alert, does not answers appropriately HEENT: NCAT, EOMI, PERRL, OP dry and crusty, whitish Neck: supple, no adenopathy, no thyromegaly, no JVD CVS/Heart: + S1S2, pulses present bilaterally Chest/Lungs: CTA B, Symmetrical chest expansion, good air entry bilaterally GI/Abdomen: soft, NTND, good bowel sounds, no guarding or rebound /Bladder: no suprapubic tenderness, no CVA or paraspinal tenderness Extermity/Skin: no c/c/e, no obvious rash MSK: FROM x 4 Neuro: CN 2-12 grossly intact, no new focal deficits Psych: calm Subjective Date of service: 09/09/18 Principal diagnosis: elevated LFTs, oral candidiasis Interval history: Patient seen and examined Code med called this am for low BP patient's BP did not improve with Iv fluid, transferred to ICU for pressor support Objective - Constitutional Vitals: Vital Signs - 12hr 09/09/18 09/09/18 09/09/18 06:03 06:42 07:22 Temperature 101.9 F H 101.6 F H Pulse Rate 79 84 Pulse Rate [ From Monitor] Respiratory 20 18 Rate Blood Pressure 102/60 86/50 76/41 O2 Sat by Pulse 93 99 Oximetry 09/09/18 09/09/18 09/09/18 07:32 08:06 08:20 Temperature 98.5 F 98.7 F Pulse Rate 80 54 L 58 L Pulse Rate [ From Monitor] Respiratory 18 18 18 Rate Blood Pressure 85/43 79/40 99/61 O2 Sat by Pulse 98 98 98 Oximetry 09/09/18 09/09/18 09/09/18 08:41 08:50 08:51 Temperature 98.8 F Pulse Rate 61 53 L Pulse Rate [ From Monitor] Respiratory 15 24 Rate Blood Pressure 87/56 O2 Sat by Pulse 89 Oximetry 09/09/18 09/09/18 09/09/18 09:01 09:11 09:21 Temperature Pulse Rate 57 L 52 L 48 L Pulse Rate [ From Monitor] Respiratory 22 20 22 Rate Blood Pressure 87/56 83/57 83/57 O2 Sat by Pulse 88 98 97 Oximetry 09/09/18 09/09/18 09/09/18 09:31 09:40 09:50 Temperature Pulse Rate 62 51 L 46 L Pulse Rate [ From Monitor] Respiratory 24 24 20 Rate Blood Pressure 93/61 93/61 96/63 O2 Sat by Pulse 97 95 98 Oximetry 09/09/18 09/09/18 09/09/18 10:00 10:11 10:21 Temperature Pulse Rate 48 L 53 L 48 L Pulse Rate [ 48 L From Monitor] Respiratory 22 19 23 Rate Blood Pressure 96/63 109/73 109/73 O2 Sat by Pulse 99 99 98 Oximetry 09/09/18 09/09/18 09/09/18 10:30 10:41 10:50 Temperature Pulse Rate 45 L 47 L 50 L Pulse Rate [ From Monitor] Respiratory 22 22 23 Rate Blood Pressure 89/52 91/56 91/56 O2 Sat by Pulse 99 98 98 Oximetry 09/09/18 09/09/18 09/09/18 11:00 11:11 11:20 Temperature Pulse Rate 53 L 51 L 52 L Pulse Rate [ From Monitor] Respiratory 20 22 22 Rate Blood Pressure 86/50 86/50 92/69 O2 Sat by Pulse 97 100 Oximetry 09/09/18 09/09/18 09/09/18 11:31 11:40 11:50 Temperature Pulse Rate 51 L 49 L 53 L Pulse Rate [ From Monitor] Respiratory 22 20 23 Rate Blood Pressure 86/56 86/56 86/56 O2 Sat by Pulse 85 97 90 Oximetry 09/09/18 09/09/18 09/09/18 12:00 12:11 12:21 Temperature 98.2 F Pulse Rate 54 L 53 L 53 L Pulse Rate [ 54 L From Monitor] Respiratory 20 22 23 Rate Blood Pressure 86/58 86/58 78/53 O2 Sat by Pulse 97 98 98 Oximetry 09/09/18 09/09/18 09/09/18 12:30 12:41 12:49 Temperature 98.2 F Pulse Rate 57 L 50 L Pulse Rate [ From Monitor] Respiratory 19 22 Rate Blood Pressure 80/57 82/54 O2 Sat by Pulse 95 100 Oximetry 09/09/18 09/09/18 12:51 13:00 Temperature Pulse Rate 51 L 47 L Pulse Rate [ From Monitor] Respiratory 22 13 Rate Blood Pressure 85/55 85/55 O2 Sat by Pulse 100 100 Oximetry - Labs CBC & Chem 7: 09/09/18 07:31 09/09/18 07:03 Labs: Abnormal lab results 09/08/18 09/09/18 09/09/18 Range/Units 13:43 07:03 07:31 WBC 3.5 L (4.5-11.0) K/mm3 RBC 2.82 L (3.65-5.03) M/mm3 Hgb 8.2 L (11.8-15.2) gm/dl Hct 24.6 L (35.5-45.6) % RDW 18.8 H (13.2-15.2) % Plt Count 136 L (140-440) K/mm3 Potassium 3.5 L (3.6-5.0) mmol/L Chloride 108.6 H (98-107) mmol/L Carbon Dioxide 15 L (22-30) mmol/L BUN 4 L (9-20) mg/dL Calcium 7.5 L (8.4-10.2) mg/dL AST 117 H 130 H (5-40) units/L ALT 87 H 86 H (7-56) units/L Total Protein 5.6 L 6.0 L (6.3-8.2) g/dL Albumin 2.6 L 2.6 L (3.9-5) g/dL
--- NOTE | 2018-09-09 16:21 | Progress Note ---
Assessment and Plan Culture 09/08/2018 Blood culture: no growth 09/08/2018 Serum Cr Ag: negative 09/09/2018 Blood culture: in process A/P: 42 year old male, know to ID from previous admissions on 06/23/18-06/19/18 and 07/18/18- 08/04/18 for pneumonia, HIV/AIDS, severe oral candidiasis and diarrhea. CD4 count 11. Viral Load [id number]. HIV genotype 06/18/2018 with few resistance mutations. CMV negative. Patient remains noncompliant with his HAART therapy. Now admitted with: 1. Altered Mental Status: Does not seem that different from baseline. 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 CT head shows no acute intracranial abnormality. + chronic maxillary and ethmoid sinusitis. MRI images showing brain atrophy, no focal lesions to suggest toxoplasma, PML, ventriculitis, [employer]ING lymphoma or other space occupying lesions. Crypto Ag is negative. 2. Oral Candidiasis: h/o resistant Carolann. Continue IV micafungin. 3. HIV/AIDS: Last admission in June CD4 count 11. Viral load [id number]. Remains non-compliant. Prognosis is poor. 4. Severe Malnutrition: related to HIV AIDS 5. Transaminitis: elevated liver enzymes from last admission. Abdominal ultrasound unremarkable. CT abdomen showing possible enteritis and somewhat inhomogenous liver. may be due to ischemic hepatitis, HIV/AIDS hepatopathy, infectious etiology with viral hepatitis, vs drug toxicity- GI following. Stable to improving. Evaluating for disseminated MAC, fungal/mycolytic blood cultures in process. 6. New Fevers, hypotension and bradycardia. 7. CAP vs PCP: Chest CT shows Bilateral pneumonia with findings most prominent in the left lower lobe as described. Bronchiectatic changes in left lower lobe noted also. Scattered blebs in the left lung. Continue IV Bactrim for PCP pneumonia. Plan: -continue Micafungin 100 mg IV q day, D3 -continue Bactrim IV D2 -started IV Cefepime 1 gm q8 hrs -patient with new bradycardia. Consider TTE, EKG. ?HIV related cardiomyopathy -f/u blood cultures -f/u fungal blood cultures, fungitell -f/u CMV PCR -prognosis remains extremely poor. Hospice would be appropriate especially since patient has remained non compliant and is not interested in HIV therapy Discussed with Dr. Jimenes. Chanel Ryder MD Infectious Diseases Subjective Date of service: 09/09/18 Principal diagnosis: elevated LFTs, oral candidiasis Interval history: Patient got moved to ICU due to hypotension and fever. Got fluids. Feeling better. Denies any complaints, but patient is a poor historian. Objective - Exam Narrative Exam: Constitutional: Alert, awake, no distress. Cachexia Head, Ears, Nose: Normocephalic, atraumatic. External ears, nose normal Eyes: Conjunctivae/corneas clear. No icterus. No ptosis. Neck: Supple, no meningeal signs Oral: dentition poor, + thrush improving Cardiovascular: S1, S2 normal. Respiratory: Good air entry, clear to auscultation bilaterally GI: Soft, non-tender; bowel sounds normal. No peritoneal signs Musculoskeletal: No pedal edema, no cyanosis. Skin: No rash or abscess. Hem/Lymphatic: No palpable cervical or supraclavicular nodes. No lymphangitis Psych: Affect flat Neurological: awake, alert - Constitutional Vitals: Vital Signs Temp Pulse Resp BP Pulse Ox 98.2 F 46 L 14 114/79 98 09/09/18 12:49 09/09/18 14:41 09/09/18 14:41 09/09/18 14:41 09/09/18 14:41 Temperature -Last 24 Hours Temperature 98.2 F Temperature 98.2 F Temperature 98.8 F Temperature 98.7 F Temperature 98.5 F Temperature 101.6 F Temperature 101.9 F Temperature 98.1 F Temperature 99.0 F Temperature 97.7 F - Labs CBC & Chem 7: 09/09/18 07:31 09/09/18 07:03 Labs: Abnormal lab results 09/09/18 09/09/18 Range/Units 07:03 07:31 WBC 3.5 L (4.5-11.0) K/mm3 RBC 2.82 L (3.65-5.03) M/mm3 Hgb 8.2 L (11.8-15.2) gm/dl Hct 24.6 L (35.5-45.6) % RDW 18.8 H (13.2-15.2) % Plt Count 136 L (140-440) K/mm3 Potassium 3.5 L (3.6-5.0) mmol/L Chloride 108.6 H (98-107) mmol/L Carbon Dioxide 15 L (22-30) mmol/L BUN 4 L (9-20) mg/dL Calcium 7.5 L (8.4-10.2) mg/dL AST 130 H (5-40) units/L ALT 86 H (7-56) units/L Total Protein 6.0 L (6.3-8.2) g/dL Albumin 2.6 L (3.9-5) g/dL
[2018-09-09] MEDS: BABY ASPIRIN PO SCH (17:25)
[2018-09-09] MEDS: MAXIPIME/NS 1 GM/100 ML 1 GM/100 ML BAG IV SCH ×2 (18:44→22:57)
[2018-09-09] MEDS: MYCAMINE 100 MG in NACL 0.9% 100 ML IV SCH (21:08)
[2018-09-10] MEDS: D5W IV SCH ×3 (03:46→20:30)
[2018-09-10] MEDS: BACTRIM IV SCH ×3 (03:46→20:30)
[2018-09-10 05:17] LABS: Hematocrit 27.1 % (35.5-45.6); Mean Corpuscular HGB Conc 33 % (32-34); Mean Corpuscular Volume 87 fl (84-94); Platelet Count 139 K/mm3 (140-440); Red Cell Distribution Width 18.6 % (13.2-15.2)
[2018-09-10] MEDS: MAXIPIME/NS 1 GM/100 ML 1 GM/100 ML BAG IV SCH ×3 (05:34→22:10)
[2018-09-10 06:48] LABS: Alanine Aminotransferase 76 units/L (7-56); Albumin 2.8 g/dL (3.9-5); BUN/Creatinine Ratio 6; Blood Urea Nitrogen 5 mg/dL (9-20); Calcium 7.7 mg/dL (8.4-10.2); Hemolysis Index 2
[2018-09-10 07:01] LABS: Anisocytosis 2+; Basophils % (Manual) 0 % (0.0-1.8); Eosinophils % (Manual) 0 % (0.0-4.3); Ovalocytes 2+; Total Cells Counted 100
[2018-09-10 07:02] LABS: Platelet Estimate Consistent w Auto
[2018-09-10] MEDS: PROAMATINE PO SCH ×3 (09:48→17:58)
[2018-09-10] MEDS: PEPCID IV SCH ×2 (09:48→22:02)
[2018-09-10] MEDS: D5NS 1,000 ML IV SCH ×2 (09:49→22:04)
[2018-09-10] MEDS: BABY ASPIRIN PO SCH (09:49)
[2018-09-10] MEDS: LOVENOX SUB-Q SCH (09:49)
--- NOTE | 2018-09-10 10:26 | Gastroenterology Progress Note ---
Assessment and Plan 1. Elevated liver enzymes - AST/ALT/Alk phos 200/136/138 on admission, this is increased from prior mild elevation noted during last admission. - more of hepatocelluar pattern. - abdominal US unremarkable but notes only portions of liver examined. - reviewed CT abdomen showing possible enteritis and somewhat inhomogenous liver. - may be due to ischemic hepatitis, HIV/AIDs hepatopathy, infectious etiology wi th viral hepatitis, vs drug toxicity. - acute hepatitis panel negative. - Liver enzymes trending down each day and stable currently. - transferred to ICU with code met for hypotension and fever on 09/09/2018 - oral candidiasis-. Continue IV micafungin as per ID Rec: - ASMA-negative/AMA- negative/iron studies pending. - HSV/CMV testing pending. - monitor CMP and INR- check INR in AM - ID on board.- per note, pt is not interested in treatment for HIV. - management for sepsis per primary team. - will follow labs with CMP. no further recommendations at this time. Can consider liver biopsy either inpatient or outpatient once acute issues with sepsis resolve. Subjective Date of service: 09/10/18 Principal diagnosis: elevated LFTs, oral candidiasis Interval history: No acute events overnight. Objective - Constitutional Vitals: Temp Pulse Resp BP Pulse Ox 100 F H 75 28 H 93/46 98 09/10/18 08:00 09/10/18 08:30 09/10/18 08:30 09/10/18 08:30 09/10/18 08:30 General appearance: no acute distress - EENT Eyes: EOM intact ENT: hearing intact - Cardiovascular Rhythm: regular Heart Sounds: Present: S1 & S2 - Gastrointestinal General gastrointestinal: Present: soft, non-tender - Integumentary Integumentary: Present: warm, dry - Neurologic Neurological: alert and oriented x3 - Psychiatric Psychiatric: depressed - Labs CBC & Chem 7: 09/10/18 04:26 09/10/18 04:26 Labs: Laboratory Results - last 24 hr 09/09/18 09/10/18 09/10/18 19:26 00:20 04:26 WBC 2.1 L RBC 3.10 L Hgb 9.0 L Hct 27.1 L MCV 87 MCH 29 MCHC 33 RDW 18.6 H Plt Count 139 L Add Manual Diff Complete Total Counted 100 Seg Neuts % (Manual) 77.0 H Band Neutrophils % 0 Lymphocytes % (Manual) 11.0 L Reactive Lymphs % (Man) 1.0 Monocytes % (Manual) 11.0 H Eosinophils % (Manual) 0 Basophils % (Manual) 0 Metamyelocytes % 0 Myelocytes % 0 Promyelocytes % 0 Blast Cells % 0 Nucleated RBC % Not Reportable Seg Neutrophils # Man 1.6 L Band Neutrophils # 0.0 Lymphocytes # (Manual) 0.2 L Abs React Lymphs (Man) 0.0 Monocytes # (Manual) 0.2 Eosinophils # (Manual) 0.0 Basophils # (Manual) 0.0 Metamyelocytes # 0.0 Myelocytes # 0.0 Promyelocytes # 0.0 Blast Cells # 0.0 WBC Morphology Not Reportable Hypersegmented Neuts Not Reportable Hyposegmented Neuts Not Reportable Hypogranular Neuts Not Reportable Smudge Cells Not Reportable Toxic Granulation Not Reportable Toxic Vacuolation Not Reportable Dohle Bodies Not Reportable Pelger-Huet Anomaly Not Reportable Giovanni Rods Not Reportable Platelet Estimate Consistent w auto Clumped Platelets Not Reportable Plt Clumps, EDTA Not Reportable Large Platelets Not Reportable Giant Platelets Not Reportable Platelet Satelliting Not Reportable Plt Morphology Comment Not Reportable RBC Morphology Not Reportable Dimorphic RBCs Not Reportable Polychromasia Not Reportable Hypochromasia Not Reportable Poikilocytosis Not Reportable Anisocytosis 2+ Microcytosis Not Reportable Macrocytosis Not Reportable Spherocytes Not Reportable Pappenheimer Bodies Not Reportable Sickle Cells Not Reportable Target Cells Not Reportable Tear Drop Cells Not Reportable Ovalocytes 2+ Helmet Cells Not Reportable [place] Bodies Not Reportable [place] Rings Not Reportable [place] Cells Not Reportable Bite Cells Not Reportable Crenated Cell Not Reportable Elliptocytes Not Reportable Acanthocytes (Spur) Not Reportable Rouleaux Not Reportable Hemoglobin C Crystals Not Reportable Schistocytes Not Reportable Malaria parasites Not Reportable Carlos A Bodies Not Reportable Hem Pathologist Commnt No Sodium Potassium Chloride Carbon Dioxide Anion Gap BUN Creatinine Estimated GFR BUN/Creatinine Ratio Glucose Calcium Total Bilirubin AST ALT Alkaline Phosphatase Troponin T < 0.010 < 0.010 Total Protein Albumin Albumin/Globulin Ratio 09/10/18 09/10/18 04:26 04:26 WBC RBC Hgb Hct MCV MCH MCHC RDW Plt Count Add Manual Diff Total Counted Seg Neuts % (Manual) Band Neutrophils % Lymphocytes % (Manual) Reactive Lymphs % (Man) Monocytes % (Manual) Eosinophils % (Manual) Basophils % (Manual) Metamyelocytes % Myelocytes % Promyelocytes % Blast Cells % Nucleated RBC % Seg Neutrophils # Man Band Neutrophils # Lymphocytes # (Manual) Abs React Lymphs (Man) Monocytes # (Manual) Eosinophils # (Manual) Basophils # (Manual) Metamyelocytes # Myelocytes # Promyelocytes # Blast Cells # WBC Morphology Hypersegmented Neuts Hyposegmented Neuts Hypogranular Neuts Smudge Cells Toxic Granulation Toxic Vacuolation Dohle Bodies Pelger-Huet Anomaly Giovanni Rods Platelet Estimate Clumped Platelets Plt Clumps, EDTA Large Platelets Giant Platelets Platelet Satelliting Plt Morphology Comment RBC Morphology Dimorphic RBCs Polychromasia Hypochromasia Poikilocytosis Anisocytosis Microcytosis Macrocytosis Spherocytes Pappenheimer Bodies Sickle Cells Target Cells Tear Drop Cells Ovalocytes Helmet Cells [place] Bodies [place] Rings [place] Cells Bite Cells Crenated Cell Elliptocytes Acanthocytes (Spur) Rouleaux Hemoglobin C Crystals Schistocytes Malaria parasites Carlos A Bodies Hem Pathologist Commnt Sodium 138 Potassium 3.8 Chloride 112.7 H Carbon Dioxide 14 L Anion Gap 15 BUN 5 L Creatinine 0.9 Estimated GFR > 60 BUN/Creatinine Ratio 6 Glucose 109 H Calcium 7.7 L Total Bilirubin 0.20 AST 110 H ALT 76 H Alkaline Phosphatase 120 Troponin T < 0.010 Total Protein 6.0 L Albumin 2.8 L Albumin/Globulin Ratio 0.9
--- NOTE | 2018-09-10 11:55 | Progress Note ---
Assessment and Plan Severe sepsis on background of chronic hypotension AMS due to acute metabolic encephalopathy: HIV/AIDS Panycytopenia Severe protein calorie malnutrition Transaminitis - may be due to ischemic hepatitis, HIV/AIDs hepatopathy, infectious etiology with viral hepatitis, vs drug toxicity. Anemia of chronic disease Acute Renal Failure, resolved Oral Candidiasis Non-adherence to medical therapy Hyperammonemia Metabolic acidosis - Conitue with gentle IVF. He remains asymptomatic with the hypotension. -Continue midodrine -Anti-infective per ID service -Nutritional support, discussed possibility of nutritional supplements -SCDs for VTE prophylaxis, patient declines pharmacologic prophylaxis -PT/OT to treat -Limit blood draws, in view of anemia OK to transfer out of the ICU He remains asymptomatic Subjective Date of service: 09/10/18 Principal diagnosis: elevated LFTs, oral candidiasis Interval history: Patient is seen today for: severe sepsis, hypotension, acute encephaloapthy, HIV-AIDS Seen and examined at bedside; 24-hour events reviewed; nursing and respiratory care staff consulted; no adverse overnight events reported to me; Blood pressure is labile, but patient remains asymptomatic. He denies any fevers, no chills. Appetite is poor. He has a flat affect. Denies any chest pain, no shortness of breath. Objective - Exam Narrative Exam: Constitutional: Alert, awake, no distress. Cachexia Head, Ears, Nose: Normocephalic, atraumatic. External ears, nose normal Eyes: Conjunctivae/corneas clear. No icterus. No ptosis. Neck: Supple, no meningeal signs Oral: dentition poor, + thrush improving Cardiovascular: S1, S2 normal. Respiratory: Good air entry, clear to auscultation bilaterally GI: Soft, non-tender; bowel sounds normal. No peritoneal signs Musculoskeletal: No pedal edema, no cyanosis. Skin: No rash or abscess. Hem/Lymphatic: No palpable cervical or supraclavicular nodes. No lymphangitis Psych: Affect flat Neurological: awake, alert Vital Signs - 12hr 09/09/18 09/09/18 09/10/18 23:51 23:55 00:01 Temperature 98.2 F Pulse Rate 54 L 59 L Pulse Rate [ From Monitor] Respiratory 23 21 Rate Blood Pressure 122/71 120/50 O2 Sat by Pulse 100 100 Oximetry 09/10/18 09/10/18 09/10/18 00:11 00:21 00:31 Temperature Pulse Rate 96 H 69 63 Pulse Rate [ From Monitor] Respiratory 32 H 27 H 28 H Rate Blood Pressure 120/50 121/59 105/85 O2 Sat by Pulse 98 100 96 Oximetry 09/10/18 09/10/18 09/10/18 00:41 00:51 01:00 Temperature Pulse Rate 63 64 62 Pulse Rate [ From Monitor] Respiratory 29 H 28 H 27 H Rate Blood Pressure 105/85 111/62 130/98 O2 Sat by Pulse 93 94 98 Oximetry 09/10/18 09/10/18 09/10/18 01:11 01:21 01:30 Temperature Pulse Rate 62 60 61 Pulse Rate [ From Monitor] Respiratory 27 H 28 H 26 H Rate Blood Pressure 130/98 108/54 106/64 O2 Sat by Pulse 99 99 100 Oximetry 09/10/18 09/10/18 09/10/18 01:45 02:01 02:15 Temperature Pulse Rate 68 63 66 Pulse Rate [ From Monitor] Respiratory 27 H 30 H 27 H Rate Blood Pressure 107/60 96/47 106/55 O2 Sat by Pulse 99 100 Oximetry 09/10/18 09/10/18 09/10/18 02:30 02:45 03:00 Temperature Pulse Rate 68 64 66 Pulse Rate [ From Monitor] Respiratory 25 H 28 H 27 H Rate Blood Pressure 104/45 101/35 98/49 O2 Sat by Pulse 100 97 97 Oximetry 09/10/18 09/10/18 09/10/18 03:15 03:30 03:45 Temperature Pulse Rate 72 75 66 Pulse Rate [ From Monitor] Respiratory 26 H 25 H 26 H Rate Blood Pressure 98/49 91/57 100/40 O2 Sat by Pulse 96 94 Oximetry 09/10/18 09/10/18 09/10/18 04:00 04:15 04:30 Temperature 101 F H Pulse Rate 67 67 77 Pulse Rate [ 60 From Monitor] Respiratory 28 H 25 H 26 H Rate Blood Pressure 104/48 105/49 105/49 O2 Sat by Pulse 97 98 96 Oximetry 09/10/18 09/10/18 09/10/18 04:45 05:00 05:15 Temperature Pulse Rate 67 65 80 Pulse Rate [ From Monitor] Respiratory 25 H 23 22 Rate Blood Pressure 99/54 121/58 100/49 O2 Sat by Pulse 98 100 99 Oximetry 09/10/18 09/10/18 09/10/18 05:31 05:45 06:00 Temperature Pulse Rate 73 70 94 H Pulse Rate [ From Monitor] Respiratory 24 23 27 H Rate Blood Pressure 100/49 101/54 101/54 O2 Sat by Pulse 97 99 94 Oximetry 09/10/18 09/10/18 09/10/18 06:15 06:30 06:45 Temperature Pulse Rate 77 76 78 Pulse Rate [ From Monitor] Respiratory 27 H 25 H 24 Rate Blood Pressure 97/55 97/55 102/57 O2 Sat by Pulse 96 96 97 Oximetry 09/10/18 09/10/18 09/10/18 07:01 07:15 07:30 Temperature Pulse Rate 75 71 78 Pulse Rate [ From Monitor] Respiratory 21 25 H 17 Rate Blood Pressure 99/53 99/53 94/51 O2 Sat by Pulse 96 97 97 Oximetry 09/10/18 09/10/18 09/10/18 07:45 08:00 08:15 Temperature 100 F H Pulse Rate 98 H 71 69 Pulse Rate [ From Monitor] Respiratory 28 H 25 H 18 Rate Blood Pressure 94/51 92/49 97/41 O2 Sat by Pulse 88 98 97 Oximetry 09/10/18 08:30 Temperature Pulse Rate 75 Pulse Rate [ From Monitor] Respiratory 28 H Rate Blood Pressure 93/46 O2 Sat by Pulse 98 Oximetry CBC and BMP: 09/10/18 04:26 09/10/18 04:26 ABG, PT/INR, D-dimer: PT/INR, D-dimer PT 13.7 Sec. (12.2-14.9) 09/05/18 16:19 INR 0.99 (0.87-1.13) 09/05/18 16:19 Abnormal lab findings: Abnormal Labs 09/04/18 09/04/18 09/04/18 21:00 21:00 22:32 WBC RBC 3.23 L Hgb 9.6 L Hct 28.9 L RDW 18.8 H Plt Count Lymph % (Auto) Bartholomew % (Auto) 12.5 H Lymph # 0.7 L Seg Neutrophils % 72.4 H Seg Neuts % (Manual) Lymphocytes % (Manual) Monocytes % (Manual) Seg Neutrophils # Man Lymphocytes # (Manual) Potassium Chloride 109.9 H Carbon Dioxide 21 L BUN 31 H Creatinine Glucose Lactic Acid 2.40 H* Calcium 8.2 L Iron TIBC Ferritin AST 200 H ALT 136 H Alkaline Phosphatase 138 H Ammonia Total Protein Albumin 3.5 L 09/04/18 09/05/18 09/05/18 22:32 16:19 16:19 WBC RBC Hgb Hct RDW Plt Count Lymph % (Auto) Bartholomew % (Auto) Lymph # Seg Neutrophils % Seg Neuts % (Manual) Lymphocytes % (Manual) Monocytes % (Manual) Seg Neutrophils # Man Lymphocytes # (Manual) Potassium Chloride 112.4 H Carbon Dioxide 19 L BUN Creatinine Glucose Lactic Acid Calcium 8.1 L Iron TIBC 223 L Ferritin AST 241 H ALT 138 H Alkaline Phosphatase Ammonia 64.0 H Total Protein Albumin 3.1 L 09/05/18 09/06/18 09/06/18 16:19 10:40 10:40 WBC 2.4 L RBC 2.67 L Hgb 7.7 L Hct 23.7 L RDW 18.7 H Plt Count 135 L Lymph % (Auto) 10.0 L Bartholomew % (Auto) 8.4 H Lymph # 0.2 L Seg Neutrophils % 81.1 H Seg Neuts % (Manual) Lymphocytes % (Manual) Monocytes % (Manual) Seg Neutrophils # Man Lymphocytes # (Manual) Potassium Chloride 112.1 H Carbon Dioxide 19 L BUN Creatinine 0.7 L Glucose Lactic Acid Calcium 7.8 L Iron TIBC Ferritin 2880.0 H AST 263 H ALT 143 H Alkaline Phosphatase Ammonia Total Protein 6.1 L Albumin 2.8 L 09/07/18 09/07/18 09/08/18 10:38 10:38 06:39 WBC RBC 2.86 L Hgb 8.3 L Hct 25.2 L RDW 18.3 H Plt Count 123 L Lymph % (Auto) 6.1 L Bartholomew % (Auto) Lymph # 0.3 L Seg Neutrophils % 87.3 H Seg Neuts % (Manual) Lymphocytes % (Manual) Monocytes % (Manual) Seg Neutrophils # Man Lymphocytes # (Manual) Potassium Chloride Carbon Dioxide BUN Creatinine Glucose Lactic Acid Calcium Iron 26 L TIBC 212 L Ferritin 2762.0 H AST ALT Alkaline Phosphatase Ammonia Total Protein Albumin 09/08/18 09/08/18 09/09/18 06:39 13:43 07:03 WBC RBC Hgb Hct RDW Plt Count Lymph % (Auto) Bartholomew % (Auto) Lymph # Seg Neutrophils % Seg Neuts % (Manual) Lymphocytes % (Manual) Monocytes % (Manual) Seg Neutrophils # Man Lymphocytes # (Manual) Potassium 3.2 L 3.5 L Chloride 111.9 H 108.6 H Carbon Dioxide 13 L 15 L BUN 6 L 4 L Creatinine Glucose 118 H Lactic Acid Calcium 7.5 L 7.5 L Iron TIBC Ferritin AST 117 H 130 H ALT 87 H 86 H Alkaline Phosphatase Ammonia Total Protein 5.6 L 6.0 L Albumin 2.6 L 2.6 L 09/09/18 09/10/18 09/10/18 07:31 04:26 04:26 WBC 3.5 L 2.1 L RBC 2.82 L 3.10 L Hgb 8.2 L 9.0 L Hct 24.6 L 27.1 L RDW 18.8 H 18.6 H Plt Count 136 L 139 L Lymph % (Auto) Bartholomew % (Auto) Lymph # Seg Neutrophils % Seg Neuts % (Manual) 77.0 H Lymphocytes % (Manual) 11.0 L Monocytes % (Manual) 11.0 H Seg Neutrophils # Man 1.6 L Lymphocytes # (Manual) 0.2 L Potassium Chloride 112.7 H Carbon Dioxide 14 L BUN 5 L Creatinine Glucose 109 H Lactic Acid Calcium 7.7 L Iron TIBC Ferritin AST 110 H ALT 76 H Alkaline Phosphatase Ammonia Total Protein 6.0 L Albumin 2.8 L
--- NOTE | 2018-09-10 11:59 | Consultation ---
History of Present Illness Consult date: 09/10/18 Requesting physician: SNEHA ZARAGOZA Consult reason: bradycardia History of present illness: The pt is a 42 YO male with past medical history of HIV/AIDS, noncompliant with his HAART therapy. He is previously unknown to our practice. He presented on 09/05 from his residence at [place] for evaluation of AMS. He has been subsequently diagnosed with PNA, suspected sepsis with septic shock, encephalopathy, transaminitis. He was noted to have sinus bradycardia on telemetry and thus cardiology has been consulted. On evaluation, pt is lethargic and provides no historial information. He is in NSR with HR 60s. Tele reviewed - HR low of 41bpm noted since admission. Past History Past Medical History: other (HIV/AIDS) Past Surgical History: Other (unable to obtain due to altered mental status) Social history: other (unable to obtain due to altered mental status) Family history: other (unable to obtain due to altered mental status) Medications and Allergies Allergies Allergy/AdvReac Type Severity Reaction Status Date / Time No Known Allergies Allergy Verified 07/18/18 14:08 Home Medications Medication Instructions Recorded Confirmed Last Taken Type Azithromycin [Zithromax TAB] 1,200 mg PO QWEEK #4 tablet 06/18/18 07/26/18 Unknown Rx Pantoprazole [Protonix TAB] 40 mg PO DAILY #30 tablet 06/19/18 07/26/18 Unknown Rx Nystas/Diphen/Xyl Visc/Mylanta 15 ml PO TID 14 Days oral.liqd 07/18/18 Unknown Rx [Magic Mouthwash] Nystas/Diphen/Xyl Visc/Mylanta 15 ml PO TID 30 Days #1 udc 07/23/18 Unknown Rx [Magic Mouthwash] Sulfamethoxazole/Trimethoprim 1 each PO QDAY 30 Days #30 tablet 07/23/18 Unknown Rx [Bactrim DS TAB] Posaconazole [Noxafil] 300 mg PO BID 1 Days #6 tablet. 08/03/18 Unknown Rx Posaconazole [Noxafil] 300 mg PO QDAY 13 Days #39 08/03/18 Unknown Rx tablet. Acyclovir [Zovirax Tab] 400 mg PO Q8H 30 Days #90 tab 08/04/18 Unknown Rx Azithromycin [Zithromax TAB] 1,200 mg PO QDAY 30 Days #8 tablet 08/04/18 Unknown Rx Loperamide [Imodium] 2 mg PO Q2H PRN #30 capsule 08/04/18 Unknown Rx Midodrine HCl 2.5 mg PO DAILY #30 tablet 08/04/18 Unknown Rx Active Meds: Active Medications Acetaminophen (Tylenol) 650 mg PO Q4H PRN PRN Reason: Pain MILD(1-3)/Fever >100.5/VILLAREAL Last Admin: 09/09/18 06:44 Dose: 650 mg Documented by: Acetaminophen/Hydrocodone Bitart (Scheller 5/325) 1 each PO Q4H PRN PRN Reason: Pain, Moderate (4-6) Aspirin (Baby Aspirin) 81 mg PO QDAY [facility] Last Admin: 09/10/18 09:49 Dose: 81 mg Documented by: Enoxaparin Sodium (Lovenox) 40 mg SUB-Q QDAY [facility] Last Admin: 09/10/18 09:49 Dose: 40 mg Documented by: Famotidine (Pepcid) 10 mg IV BID [facility] Last Admin: 09/10/18 09:48 Dose: 10 mg Documented by: Dextrose/Sodium Chloride (D5ns) 1,000 mls @ 100 mls/hr IV DIRECT [facility] Last Admin: 09/10/18 09:49 Dose: 100 mls/hr Documented by: Micafungin Sodium 100 mg/ (Sodium Chloride) 100 mls @ 100 mls/hr IV DAILY@2000 [facility]; Protocol Last Admin: 09/09/18 21:08 Dose: 100 mls/hr Documented by: Trimethoprim/Sulfamethoxazole (320 mg/ Dextrose) 520 mls @ 343.75 mls/hr IV Q8H [facility] Last Admin: 09/10/18 09:49 Dose: 343.75 mls/hr Documented by: Norepinephrine (Levophed Drip 4 Mg/Ns 250 Ml) 4 mg in 250 mls @ 7.5 mls/hr IV TITR [facility]; Protocol Last Titration: 09/09/18 18:01 Dose: 0 mcg/min, 0 mls/hr Documented by: Cefepime HCl (Maxipime/Ns 1 Gm/100 Ml) 1 gm in 100 mls @ 200 mls/hr IV Q8HR [facility]; Protocol Last Admin: 09/10/18 05:34 Dose: 200 mls/hr Documented by: Midodrine (Proamatine) 10 mg PO TID@0800,1200,1600 [facility] Last Admin: 09/10/18 09:48 Dose: 10 mg Documented by: Ondansetron HCl (Zofran) 4 mg IV Q8H PRN PRN Reason: Nausea And Vomiting Sodium Chloride (Sodium Chloride Flush Syringe 10 Ml) 10 ml IV BID [facility] Last Admin: 09/09/18 23:07 Dose: 10 ml Documented by: Sodium Chloride (Sodium Chloride Flush Syringe 10 Ml) 10 ml IV PRN PRN PRN Reason: LINE FLUSH Review of Systems All systems: negative (no current complaints) Physical Examination Vital Signs Temp Pulse Resp BP Pulse Ox 98.7 F 98 H 14 107/58 100 09/04/18 20:22 09/04/18 20:22 09/04/18 20:22 09/04/18 20:22 09/04/18 20:22 General appearance: no acute distress, cachectic, other (lethargic) HEENT: Positive: PERRL Neck: Positive: neck supple, trachea midline Cardiac: Positive: Reg Rate and Rhythm, S1/S2 Lungs: Positive: Decreased Breath Sounds Neuro: Positive: Grossly Intact Abdomen: Negative: Tender Skin: Negative: Rash, Wound Musculoskeletal: No Pain Extremities: Absent: edema Results 09/10/18 04:26 09/10/18 04:26 Cardiac Enzymes 09/10/18 Range/Units 04:26 AST 110 H (5-40) units/L CBC 09/10/18 Range/Units 04:26 WBC 2.1 L (4.5-11.0) K/mm3 RBC 3.10 L (3.65-5.03) M/mm3 Hgb 9.0 L (11.8-15.2) gm/dl Hct 27.1 L (35.5-45.6) % Plt Count 139 L (140-440) K/mm3 Comprehensive Metabolic Panel 09/10/18 Range/Units 04:26 Sodium 138 (137-145) mmol/L Potassium 3.8 (3.6-5.0) mmol/L Chloride 112.7 H (98-107) mmol/L Carbon Dioxide 14 L (22-30) mmol/L BUN 5 L (9-20) mg/dL Creatinine 0.9 (0.8-1.5) mg/dL Glucose 109 H (75-100) mg/dL Calcium 7.7 L (8.4-10.2) mg/dL AST 110 H (5-40) units/L ALT 76 H (7-56) units/L Alkaline Phosphatase 120 (35-129) units/L Total Protein 6.0 L (6.3-8.2) g/dL Albumin 2.8 L (3.9-5) g/dL - Imaging and Cardiology Echo: pending EKG: report reviewed, image reviewed EKG interpretations - Telemetry EKG Rhythm: Sinus Rhythm - EKG Sinus rhythms and dysrhythmias: sinus rhythm Assessment and Plan TSH WNL. F/u echo. Cont to avoid AV sherwin blocking agents. Cont supportive measures. The patient has been seen in conjunction with Dr. Moore who agrees with the assessment and plan of care. - Patient Problems (1) Sinus bradycardia Current Visit: Yes Status: Acute (2) HIV (human immunodeficiency virus infection) Current Visit: Yes Status: Chronic (3) AIDS Current Visit: Yes Status: Chronic (4) Altered mental status Current Visit: Yes Status: Acute (5) Sepsis Current Visit: Yes Status: Suspected (6) Sepsis associated hypotension Current Visit: Yes Status: Suspected (7) Pneumonia Current Visit: Yes Status: Acute Qualifiers: Pneumonia type: due to unspecified organism Laterality: left Lung location: lower lobe of lung Qualified Code(s): J18.1 - Lobar pneumonia, unspecified organism (8) Oral candidiasis Current Visit: Yes Status: Acute (9) Pancytopenia Current Visit: Yes Status: Acute (10) Transaminitis Current Visit: Yes Status: Acute (11) Severe malnutrition Current Visit: Yes Status: Chronic
[2018-09-10] MEDS: SODIUM CHLORIDE FLUSH SYRINGE 10 ML IV SCH ×2 (13:07→22:19)
--- NOTE | 2018-09-10 14:34 | Progress Note ---
Assessment and Plan Culture 09/08/2018 Blood culture: no growth 09/08/2018 Serum Cr Ag: negative 09/09/2018 Blood culture: no growth thus far Fungal blood culture: in process A/P: 42 year old male, know to ID from previous admissions on 06/23/18-06/19/18 and 07/18/18- 08/04/18 for pneumonia, HIV/AIDS, severe oral candidiasis and diarrhea. CD4 count 11. Viral Load [id number]. HIV genotype 06/18/2018 with few resistance mutations. CMV negative. Patient remains noncompliant with his HAART therapy. Now admitted with: 1. Altered Mental Status/Acute encephalopathy: Seems back to baseline. 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 CT head shows no acute intracranial abnormality. + chronic maxillary and ethmoid sinusitis. MRI images showing brain atrophy, no focal lesions to suggest toxoplasma, PML, ventriculitis, [employer] lymphoma or other space occupying lesions. Crypto Ag is negative. 2. Oral Candidiasis: h/o resistant Carolann. improved, will switch to Nystatin. 3. HIV/AIDS: Last admission in June CD4 count 11. Viral load high. Remains non-compliant. Prognosis is poor. 4. Severe Malnutrition: related to HIV AIDS 5. Transaminitis: elevated liver enzymes from last admission. Abdominal ultrasound unremarkable. CT abdomen showing possible enteritis and somewhat inhomogenous liver. may be due to ischemic hepatitis, HIV/AIDS hepatopathy, infectious etiology with viral hepatitis, vs drug toxicity- GI following. Stable to improving. Evaluating for disseminated MAC, fungal/mycolytic blood cultures in process. 6. New Fevers, hypotension and bradycardia: on empiric abx. Follow up TTE. 7. CAP vs PCP: Chest CT shows Bilateral pneumonia with findings most prominent in the left lower lobe as described. Bronchiectatic changes in left lower lobe noted also. Scattered blebs in the left lung. Continue IV Bactrim for PCP pneumonia. Plan: -continue Micafungin 100 mg IV q day, D4 today, thrush has resolved, will switch to nystatin swish and swallow -continue Bactrim IV D3 -continue IV Cefepime 1 gm q8 hrs D2 -f/u TTE -f/u fungal blood cultures, fungitell -f/u CMV PCR -prognosis remains extremely poor. Hospice would be appropriate especially since patient has remained non compliant and is not interested in HIV therapy Chanel Ryder MD Infectious Diseases Subjective Date of service: 09/10/18 Principal diagnosis: elevated LFTs, oral candidiasis Interval history: One fever of 101F. Remains in ICU. Denies any complaints. Bradycardia + in the 40s. Objective - Exam Narrative Exam: Constitutional: Alert, awake, no distress. Cachexia Head, Ears, Nose: Normocephalic, atraumatic. External ears, nose normal Eyes: Conjunctivae/corneas clear. No icterus. No ptosis. Neck: Supple, no meningeal signs Oral: dentition poor, + thrush resolved Cardiovascular: S1, S2 normal. Respiratory: Good air entry, clear to auscultation bilaterally GI: Soft, non-tender; bowel sounds normal. No peritoneal signs Musculoskeletal: No pedal edema, no cyanosis. Skin: No rash or abscess. Hem/Lymphatic: No palpable cervical or supraclavicular nodes. No lymphangitis Psych: Affect flat Neurological: awake, alert - Constitutional Vitals: Vital Signs Temp Pulse Resp BP Pulse Ox 98.9 F 63 16 99/55 97 09/10/18 12:00 09/10/18 13:15 09/10/18 13:15 09/10/18 13:15 09/10/18 13:15 Temperature -Last 24 Hours Temperature 98.9 F Temperature 100 F Temperature 101 F Temperature 98.2 F Temperature 98.5 F Temperature 97.8 F - Labs CBC & Chem 7: 09/10/18 04:26 09/10/18 04:26 Labs: Abnormal lab results 09/10/18 09/10/18 Range/Units 04:26 04:26 WBC 2.1 L (4.5-11.0) K/mm3 RBC 3.10 L (3.65-5.03) M/mm3 Hgb 9.0 L (11.8-15.2) gm/dl Hct 27.1 L (35.5-45.6) % RDW 18.6 H (13.2-15.2) % Plt Count 139 L (140-440) K/mm3 Seg Neuts % (Manual) 77.0 H (40.0-70.0) % Lymphocytes % (Manual) 11.0 L (13.4-35.0) % Monocytes % (Manual) 11.0 H (0.0-7.3) % Seg Neutrophils # Man 1.6 L (1.8-7.7) K/mm3 Lymphocytes # (Manual) 0.2 L (1.2-5.4) K/mm3 Chloride 112.7 H (98-107) mmol/L Carbon Dioxide 14 L (22-30) mmol/L BUN 5 L (9-20) mg/dL Glucose 109 H (75-100) mg/dL Calcium 7.7 L (8.4-10.2) mg/dL AST 110 H (5-40) units/L ALT 76 H (7-56) units/L Total Protein 6.0 L (6.3-8.2) g/dL Albumin 2.8 L (3.9-5) g/dL
[2018-09-10] MEDS: NYSTATIN PO SCH (22:02)
[2018-09-10 22:20] LABS: ANA Screen, IFA Negative (Negative)
[2018-09-11] MEDS: BACTRIM IV SCH ×3 (02:01→18:20)
[2018-09-11] MEDS: D5W IV SCH ×3 (02:01→18:20)
[2018-09-11] MEDS: MAXIPIME/NS 1 GM/100 ML 1 GM/100 ML BAG IV SCH ×3 (05:36→22:14)
[2018-09-11 05:48] LABS: INR 1.12 (0.87-1.13)
[2018-09-11] MEDS: PROAMATINE PO SCH ×3 (08:32→17:27)
[2018-09-11] MEDS: NYSTATIN PO SCH ×4 (08:32→22:15)
[2018-09-11] MEDS: PEPCID IV SCH ×2 (09:38→22:14)
[2018-09-11] MEDS: BABY ASPIRIN PO SCH (09:38)
[2018-09-11] MEDS: LOVENOX SUB-Q SCH ×2 (09:39→09:55)
[2018-09-11] MEDS: SODIUM CHLORIDE FLUSH SYRINGE 10 ML IV SCH ×2 (09:42→22:15)
--- NOTE | 2018-09-11 10:00 | Progress Note ---
Assessment and Plan TTE revealed ef ~35% tele reveals sinus rhythm - hr 50s-70s - no avb or pause Still seems mildly volume depleted in the milieu of CAP/sepsis start gentle IVF Stress mpi once infection improves discussed with Dr. Sanchez - Patient Problems (1) Altered mental status Current Visit: Yes Status: Acute (2) Anemia Current Visit: Yes Status: Acute (3) Dehydration Current Visit: Yes Status: Acute (4) Lactic acidosis Current Visit: Yes Status: Acute (5) Oral candidiasis Current Visit: Yes Status: Acute (6) Pancytopenia Current Visit: Yes Status: Acute (7) Pneumonia Current Visit: Yes Status: Acute Qualifiers: Pneumonia type: due to unspecified organism Laterality: left Lung location: lower lobe of lung Qualified Code(s): J18.1 - Lobar pneumonia, unspecified organism (8) Sinus bradycardia Current Visit: Yes Status: Acute (9) HIV (human immunodeficiency virus infection) Current Visit: Yes Status: Chronic (10) Severe malnutrition Current Visit: Yes Status: Chronic (11) Sepsis Current Visit: Yes Status: Suspected (12) Sepsis associated hypotension Current Visit: Yes Status: Suspected (13) Thrush, oral Current Visit: No Status: Acute Subjective Date of service: 09/11/18 Principal diagnosis: elevated LFTs, oral candidiasis Interval history: no complaints Objective Vital Signs Temp Pulse Pulse Resp BP Pulse Ox 09/11/18 04:38 97.3 F L 53 L 18 75/41 99 09/11/18 00:39 97.5 F L 54 L 18 82/52 99 09/10/18 23:32 52 L 09/10/18 20:45 41 L 16 96 09/10/18 20:17 97.4 F L 48 L 20 73/39 98 09/10/18 18:30 43 L 18 116/70 99 09/10/18 18:16 45 L 14 116/70 97 09/10/18 18:00 41 L 18 116/70 100 09/10/18 17:46 39 L 20 107/57 100 09/10/18 17:30 43 L 20 107/57 100 09/10/18 17:16 40 L 19 99 09/10/18 17:00 40 L 17 107/57 100 09/10/18 16:45 41 L 20 104/57 100 09/10/18 16:31 46 L 20 104/57 99 09/10/18 16:15 43 L 15 104/57 98 09/10/18 16:00 97.9 F 39 L 44 L 18 104/57 98 09/10/18 15:45 45 L 17 109/56 97 09/10/18 15:31 47 L 20 109/56 96 09/10/18 15:15 47 L 20 109/56 98 09/10/18 15:00 47 L 15 87/48 96 09/10/18 14:45 58 L 20 109/56 97 09/10/18 14:31 42 L 20 109/56 99 09/10/18 14:15 43 L 19 109/56 100 09/10/18 14:00 43 L 22 109/56 100 09/10/18 13:45 44 L 22 99/55 100 09/10/18 13:31 44 L 20 99/55 98 09/10/18 13:15 63 16 99/55 97 09/10/18 13:00 54 L 22 99/55 99 09/10/18 12:45 62 16 101/55 98 09/10/18 12:31 63 24 101/55 89 09/10/18 12:15 61 17 101/55 100 09/10/18 12:00 98.9 F 59 L 23 101/55 100 09/10/18 11:45 64 20 93/50 97 09/10/18 11:31 70 15 93/50 100 09/10/18 11:15 56 L 25 H 100/49 100 09/10/18 11:00 61 25 H 100/49 99 09/10/18 10:45 67 21 93/50 100 09/10/18 10:30 61 26 H 93/50 09/10/18 10:15 67 24 91/46 99 09/10/18 10:00 66 27 H 90/47 99 - Physical Examination HEENT: Positive: PERRL Neck: Positive: neck supple, trachea midline Neuro: Positive: Grossly Intact Abdomen: Negative: Tender Skin: Negative: Rash, Wound Musculoskeletal: No Pain Extremities: Absent: edema - Labs and Meds Cardiac Enzymes 09/04/18 09/04/18 09/04/18 Range/Units 21:00 21:00 21:00 WBC 4.8 (4.5-11.0) K/mm3 RBC 3.23 L (3.65-5.03) M/mm3 Hgb 9.6 L (11.8-15.2) gm/dl Hct 28.9 L (35.5-45.6) % MCV 89 (84-94) fl MCH 30 (28-32) pg MCHC 33 (32-34) % RDW 18.8 H (13.2-15.2) % Plt Count 195 (140-440) K/mm3 Lymph % (Auto) 14.7 (13.4-35.0) % Ross % (Auto) 12.5 H (0.0-7.3) % Eos % (Auto) 0.1 (0.0-4.3) % Baso % (Auto) 0.3 (0.0-1.8) % Lymph # 0.7 L (1.2-5.4) K/mm3 Ross # 0.6 (0.0-0.8) K/mm3 Eos # 0.0 (0.0-0.4) K/mm3 Baso # 0.0 (0.0-0.1) K/mm3 Add Manual Diff Total Counted Seg Neutrophils % 72.4 H (40.0-70.0) % Seg Neuts % (Manual) (40.0-70.0) % Band Neutrophils % % Lymphocytes % (Manual) (13.4-35.0) % Reactive Lymphs % (Man) % Monocytes % (Manual) (0.0-7.3) % Eosinophils % (Manual) (0.0-4.3) % Basophils % (Manual) (0.0-1.8) % Metamyelocytes % % Myelocytes % % Promyelocytes % % Blast Cells % % Nucleated RBC % Seg Neutrophils # 3.5 (1.8-7.7) K/mm3 Seg Neutrophils # Man (1.8-7.7) K/mm3 Band Neutrophils # K/mm3 Lymphocytes # (Manual) (1.2-5.4) K/mm3 Abs React Lymphs (Man) K/mm3 Monocytes # (Manual) (0.0-0.8) K/mm3 Eosinophils # (Manual) (0.0-0.4) K/mm3 Basophils # (Manual) (0.0-0.1) K/mm3 Metamyelocytes # K/mm3 Myelocytes # K/mm3 Promyelocytes # K/mm3 Blast Cells # K/mm3 WBC Morphology Hypersegmented Neuts Hyposegmented Neuts Hypogranular Neuts Smudge Cells Toxic Granulation Toxic Vacuolation Dohle Bodies Pelger-Huet Anomaly Giovanni Rods Platelet Estimate Clumped Platelets Plt Clumps, EDTA Large Platelets Giant Platelets Platelet Satelliting Plt Morphology Comment RBC Morphology Dimorphic RBCs Polychromasia Hypochromasia Poikilocytosis Anisocytosis Microcytosis Macrocytosis Spherocytes Pappenheimer Bodies Sickle Cells Target Cells Tear Drop Cells Ovalocytes Helmet Cells [place] Bodies [place] Rings Cinthya Cells Bite Cells Crenated Cell Elliptocytes Acanthocytes (Spur) Rouleaux Hemoglobin C Crystals Schistocytes Malaria parasites Carlos A Bodies Hem Pathologist Commnt PT (12.2-14.9) Sec. INR (0.87-1.13) Sodium 142 (137-145) mmol/L Potassium 4.6 (3.6-5.0) mmol/L Chloride 109.9 H (98-107) mmol/L Carbon Dioxide 21 L (22-30) mmol/L Anion Gap 16 mmol/L BUN 31 H (9-20) mg/dL Creatinine 1.0 (0.8-1.5) mg/dL Estimated GFR > 60 ml/min BUN/Creatinine Ratio 31 % Glucose 92 (75-100) mg/dL POC Glucose (70-105) Lactic Acid (0.7-2.0) mmol/L Calcium 8.2 L (8.4-10.2) mg/dL Iron (49-181) ug/dL TIBC (250-450) mcg/dL Ferritin (13.0-400.0) ng/mL Total Bilirubin 0.30 (0.1-1.2) mg/dL Direct Bilirubin (0-0.2) mg/dL Indirect Bilirubin mg/dL ALT 136 H (7-56) units/L Alkaline Phosphatase 138 H (35-129) units/L Ammonia (25-60) umol/L Total Creatine Kinase 101 (55-170) units/L Troponin T 0.020 (0.00-0.029) ng/mL Total Protein 7.1 (6.3-8.2) g/dL Albumin 3.5 L (3.9-5) g/dL Albumin/Globulin Ratio 1.0 % TSH 0.960 (0.270-4.200) mlU/mL Urine Color (Yellow) Urine Turbidity (Clear) Urine pH (5.0-7.0) Ur Specific [place] (1.003-1.030) Urine Protein (Negative) mg/dL Urine Glucose (UA) (Negative) mg/dL Urine Ketones (Negative) mg/dL Urine Blood (Negative) Urine Nitrite (Negative) Urine Bilirubin (Negative) Urine Urobilinogen (<2.0) mg/dL Ur Leukocyte Esterase (Negative) Urine WBC (Auto) (0.0-6.0) /HPF Urine RBC (Auto) (0.0-6.0) /HPF Urine Bacteria (Auto) (Negative) /HPF Urine Mucus /HPF Urine Opiates Screen Urine Methadone Screen Ur Barbiturates Screen Ur Phencyclidine Scrn Ur Amphetamines Screen U Benzodiazepines Scrn Urine Cocaine Screen U Marijuana (THC) Screen Drugs of Abuse Note Plasma/Serum Alcohol (0-0.07) % JAMEEL Screen (Negative) Sm (Starkey) Antibody (<1.0) AI Mitochondria M2 Ab (<=20.0) U Hepatitis A IgM Ab (NonReactive) Hep Bs Antigen (Negative) Hep B Core IgM Ab (NonReactive) Hepatitis C Antibody (NonReactive) 09/04/18 09/04/18 09/04/18 Range/Units 21:00 22:32 22:32 WBC (4.5-11.0) K/mm3 RBC (3.65-5.03) M/mm3 Hgb (11.8-15.2) gm/dl Hct (35.5-45.6) % MCV (84-94) fl MCH (28-32) pg MCHC (32-34) % RDW (13.2-15.2) % Plt Count (140-440) K/mm3 Lymph % (Auto) (13.4-35.0) % Ross % (Auto) (0.0-7.3) % Eos % (Auto) (0.0-4.3) % Baso % (Auto) (0.0-1.8) % Lymph # (1.2-5.4) K/mm3 Ross # (0.0-0.8) K/mm3 Eos # (0.0-0.4) K/mm3 Baso # (0.0-0.1) K/mm3 Add Manual Diff Total Counted Seg Neutrophils % (40.0-70.0) % Seg Neuts % (Manual) (40.0-70.0) % Band Neutrophils % % Lymphocytes % (Manual) (13.4-35.0) % Reactive Lymphs % (Man) % Monocytes % (Manual) (0.0-7.3) % Eosinophils % (Manual) (0.0-4.3) % Basophils % (Manual) (0.0-1.8) % Metamyelocytes % % Myelocytes % % Promyelocytes % % Blast Cells % % Nucleated RBC % Seg Neutrophils # (1.8-7.7) K/mm3 Seg Neutrophils # Man (1.8-7.7) K/mm3 Band Neutrophils # K/mm3 Lymphocytes # (Manual) (1.2-5.4) K/mm3 Abs React Lymphs (Man) K/mm3 Monocytes # (Manual) (0.0-0.8) K/mm3 Eosinophils # (Manual) (0.0-0.4) K/mm3 Basophils # (Manual) (0.0-0.1) K/mm3 Metamyelocytes # K/mm3 Myelocytes # K/mm3 Promyelocytes # K/mm3 Blast Cells # K/mm3 WBC Morphology Hypersegmented Neuts Hyposegmented Neuts Hypogranular Neuts Smudge Cells Toxic Granulation Toxic Vacuolation Dohle Bodies Pelger-Huet Anomaly Giovanni Rods Platelet Estimate Clumped Platelets Plt Clumps, EDTA Large Platelets Giant Platelets Platelet Satelliting Plt Morphology Comment RBC Morphology Dimorphic RBCs Polychromasia Hypochromasia Poikilocytosis Anisocytosis Microcytosis Macrocytosis Spherocytes Pappenheimer Bodies Sickle Cells Target Cells Tear Drop Cells Ovalocytes Helmet Cells [place] Bodies [place] Rings Ages [place] Cells Bite Cells Crenated Cell Elliptocytes Acanthocytes (Spur) Rouleaux Hemoglobin C Crystals Schistocytes Malaria parasites Carlos A Bodies Hem Pathologist Commnt PT (12.2-14.9) Sec. INR (0.87-1.13) Sodium (137-145) mmol/L Potassium (3.6-5.0) mmol/L Chloride (98-107) mmol/L Carbon Dioxide (22-30) mmol/L Anion Gap mmol/L BUN (9-20) mg/dL Creatinine (0.8-1.5) mg/dL Estimated GFR ml/min BUN/Creatinine Ratio % Glucose (75-100) mg/dL POC Glucose (70-105) Lactic Acid 2.40 H* (0.7-2.0) mmol/L Calcium (8.4-10.2) mg/dL Iron (49-181) ug/dL TIBC (250-450) mcg/dL Ferritin (13.0-400.0) ng/mL Total Bilirubin (0.1-1.2) mg/dL Direct Bilirubin (0-0.2) mg/dL Indirect Bilirubin mg/dL ALT (7-56) units/L Alkaline Phosphatase (35-129) units/L Ammonia 64.0 H (25-60) umol/L Total Creatine Kinase (55-170) units/L Troponin T (0.00-0.029) ng/mL Total Protein (6.3-8.2) g/dL Albumin (3.9-5) g/dL Albumin/Globulin Ratio % TSH (0.270-4.200) mlU/mL Urine Color (Yellow) Urine Turbidity (Clear) Urine pH (5.0-7.0) Ur Specific [place] (1.003-1.030) Urine Protein (Negative) mg/dL Urine Glucose (UA) (Negative) mg/dL Urine Ketones (Negative) mg/dL Urine Blood (Negative) Urine Nitrite (Negative) Urine Bilirubin (Negative) Urine Urobilinogen (<2.0) mg/dL Ur Leukocyte Esterase (Negative) Urine WBC (Auto) (0.0-6.0) /HPF Urine RBC (Auto) (0.0-6.0) /HPF Urine Bacteria (Auto) (Negative) /HPF Urine Mucus /HPF Urine Opiates Screen Urine Methadone Screen Ur Barbiturates Screen Ur Phencyclidine Scrn Ur Amphetamines Screen U Benzodiazepines Scrn Urine Cocaine Screen U Marijuana (THC) Screen Drugs of Abuse Note Plasma/Serum Alcohol < 0.01 (0-0.07) % JAMEEL Screen (Negative) Sm (Starkey) Antibody (<1.0) AI Mitochondria M2 Ab (<=20.0) U Hepatitis A IgM Ab (NonReactive) Hep Bs Antigen (Negative) Hep B Core IgM Ab (NonReactive) Hepatitis C Antibody (NonReactive) 09/04/18 09/04/18 09/05/18 Range/Units 23:30 23:30 03:50 WBC (4.5-11.0) K/mm3 RBC (3.65-5.03) M/mm3 Hgb (11.8-15.2) gm/dl Hct (35.5-45.6) % MCV (84-94) fl MCH (28-32) pg MCHC (32-34) % RDW (13.2-15.2) % Plt Count (140-440) K/mm3 Lymph % (Auto) (13.4-35.0) % Ross % (Auto) (0.0-7.3) % Eos % (Auto) (0.0-4.3) % Baso % (Auto) (0.0-1.8) % Lymph # (1.2-5.4) K/mm3 Ross # (0.0-0.8) K/mm3 Eos # (0.0-0.4) K/mm3 Baso # (0.0-0.1) K/mm3 Add Manual Diff Total Counted Seg Neutrophils % (40.0-70.0) % Seg Neuts % (Manual) (40.0-70.0) % Band Neutrophils % % Lymphocytes % (Manual) (13.4-35.0) % Reactive Lymphs % (Man) % Monocytes % (Manual) (0.0-7.3) % Eosinophils % (Manual) (0.0-4.3) % Basophils % (Manual) (0.0-1.8) % Metamyelocytes % % Myelocytes % % Promyelocytes % % Blast Cells % % Nucleated RBC % Seg Neutrophils # (1.8-7.7) K/mm3 Seg Neutrophils # Man (1.8-7.7) K/mm3 Band Neutrophils # K/mm3 Lymphocytes # (Manual) (1.2-5.4) K/mm3 Abs React Lymphs (Man) K/mm3 Monocytes # (Manual) (0.0-0.8) K/mm3 Eosinophils # (Manual) (0.0-0.4) K/mm3 Basophils # (Manual) (0.0-0.1) K/mm3 Metamyelocytes # K/mm3 Myelocytes # K/mm3 Promyelocytes # K/mm3 Blast Cells # K/mm3 WBC Morphology Hypersegmented Neuts Hyposegmented Neuts Hypogranular Neuts Smudge Cells Toxic Granulation Toxic Vacuolation Dohle Bodies Pelger-Huet Anomaly Giovanni Rods Platelet Estimate Clumped Platelets Plt Clumps, EDTA Large Platelets Giant Platelets Platelet Satelliting Plt Morphology Comment RBC Morphology Dimorphic RBCs Polychromasia Hypochromasia Poikilocytosis Anisocytosis Microcytosis Macrocytosis Spherocytes Pappenheimer Bodies Sickle Cells Target Cells Tear Drop Cells Ovalocytes Helmet Cells [place] Bodies [place] Rings Ages [place] Cells Bite Cells Crenated Cell Elliptocytes Acanthocytes (Spur) Rouleaux Hemoglobin C Crystals Schistocytes Malaria parasites Carlos A Bodies Hem Pathologist Commnt PT (12.2-14.9) Sec. INR (0.87-1.13) Sodium (137-145) mmol/L Potassium (3.6-5.0) mmol/L Chloride (98-107) mmol/L Carbon Dioxide (22-30) mmol/L Anion Gap mmol/L BUN (9-20) mg/dL Creatinine (0.8-1.5) mg/dL Estimated GFR ml/min BUN/Creatinine Ratio % Glucose (75-100) mg/dL POC Glucose (70-105) Lactic Acid 1.30 (0.7-2.0) mmol/L Calcium (8.4-10.2) mg/dL Iron (49-181) ug/dL TIBC (250-450) mcg/dL Ferritin (13.0-400.0) ng/mL Total Bilirubin (0.1-1.2) mg/dL Direct Bilirubin (0-0.2) mg/dL Indirect Bilirubin mg/dL ALT (7-56) units/L Alkaline Phosphatase (35-129) units/L Ammonia (25-60) umol/L Total Creatine Kinase (55-170) units/L Troponin T (0.00-0.029) ng/mL Total Protein (6.3-8.2) g/dL Albumin (3.9-5) g/dL Albumin/Globulin Ratio % TSH (0.270-4.200) mlU/mL Urine Color Yellow (Yellow) Urine Turbidity Clear (Clear) Urine pH 6.0 (5.0-7.0) Ur Specific [place] 1.012 (1.003-1.030) Urine Protein <15 mg/dl (Negative) mg/dL Urine Glucose (UA) Neg (Negative) mg/dL Urine Ketones Neg (Negative) mg/dL Urine Blood Neg (Negative) Urine Nitrite Neg (Negative) Urine Bilirubin Neg (Negative) Urine Urobilinogen < 2.0 (<2.0) mg/dL Ur Leukocyte Esterase Neg (Negative) Urine WBC (Auto) 1.0 (0.0-6.0) /HPF Urine RBC (Auto) 2.0 (0.0-6.0) /HPF Urine Bacteria (Auto) 1+ (Negative) /HPF Urine Mucus Few /HPF Urine Opiates Screen Presumptive negative Urine Methadone Screen Presumptive negative Ur Barbiturates Screen Presumptive negative Ur Phencyclidine Scrn Presumptive negative Ur Amphetamines Screen Presumptive negative U Benzodiazepines Scrn Presumptive negative Urine Cocaine Screen Presumptive negative U Marijuana (THC) Screen Presumptive negative Drugs of Abuse Note Disclamer Plasma/Serum Alcohol (0-0.07) % JAMEEL Screen (Negative) Sm (Starkey) Antibody (<1.0) AI Mitochondria M2 Ab (<=20.0) U Hepatitis A IgM Ab (NonReactive) Hep Bs Antigen (Negative) Hep B Core IgM Ab (NonReactive) Hepatitis C Antibody (NonReactive) 09/05/18 09/05/18 09/05/18 Range/Units 16:19 16:19 16:19 WBC (4.5-11.0) K/mm3 RBC (3.65-5.03) M/mm3 Hgb (11.8-15.2) gm/dl Hct (35.5-45.6) % MCV (84-94) fl MCH (28-32) pg MCHC (32-34) % RDW (13.2-15.2) % Plt Count (140-440) K/mm3 Lymph % (Auto) (13.4-35.0) % Ross % (Auto) (0.0-7.3) % Eos % (Auto) (0.0-4.3) % Baso % (Auto) (0.0-1.8) % Lymph # (1.2-5.4) K/mm3 Ross # (0.0-0.8) K/mm3 Eos # (0.0-0.4) K/mm3 Baso # (0.0-0.1) K/mm3 Add Manual Diff Total Counted Seg Neutrophils % (40.0-70.0) % Seg Neuts % (Manual) (40.0-70.0) % Band Neutrophils % % Lymphocytes % (Manual) (13.4-35.0) % Reactive Lymphs % (Man) % Monocytes % (Manual) (0.0-7.3) % Eosinophils % (Manual) (0.0-4.3) % Basophils % (Manual) (0.0-1.8) % Metamyelocytes % % Myelocytes % % Promyelocytes % % Blast Cells % % Nucleated RBC % Seg Neutrophils # (1.8-7.7) K/mm3 Seg Neutrophils # Man (1.8-7.7) K/mm3 Band Neutrophils # K/mm3 Lymphocytes # (Manual) (1.2-5.4) K/mm3 Abs React Lymphs (Man) K/mm3 Monocytes # (Manual) (0.0-0.8) K/mm3 Eosinophils # (Manual) (0.0-0.4) K/mm3 Basophils # (Manual) (0.0-0.1) K/mm3 Metamyelocytes # K/mm3 Myelocytes # K/mm3 Promyelocytes # K/mm3 Blast Cells # K/mm3 WBC Morphology Hypersegmented Neuts Hyposegmented Neuts Hypogranular Neuts Smudge Cells Toxic Granulation Toxic Vacuolation Dohle Bodies Pelger-Huet Anomaly Giovanni Rods Platelet Estimate Clumped Platelets Plt Clumps, EDTA Large Platelets Giant Platelets Platelet Satelliting Plt Morphology Comment RBC Morphology Dimorphic RBCs Polychromasia Hypochromasia Poikilocytosis Anisocytosis Microcytosis Macrocytosis Spherocytes Pappenheimer Bodies Sickle Cells Target Cells Tear Drop Cells Ovalocytes Helmet Cells [place] Bodies [place] Rings Cinthya Cells Bite Cells Crenated Cell Elliptocytes Acanthocytes (Spur) Rouleaux Hemoglobin C Crystals Schistocytes Malaria parasites Carlos A Bodies Hem Pathologist Commnt PT 13.7 (12.2-14.9) Sec. INR 0.99 (0.87-1.13) Sodium 139 (137-145) mmol/L Potassium 4.3 (3.6-5.0) mmol/L Chloride 112.4 H (98-107) mmol/L Carbon Dioxide 19 L (22-30) mmol/L Anion Gap 12 mmol/L BUN 19 (9-20) mg/dL Creatinine 0.8 (0.8-1.5) mg/dL Estimated GFR > 60 ml/min BUN/Creatinine Ratio 24 % Glucose 95 (75-100) mg/dL POC Glucose (70-105) Lactic Acid (0.7-2.0) mmol/L Calcium 8.1 L (8.4-10.2) mg/dL Iron 91 (49-181) ug/dL TIBC 223 L (250-450) mcg/dL Ferritin (13.0-400.0) ng/mL Total Bilirubin 0.30 (0.1-1.2) mg/dL Direct Bilirubin (0-0.2) mg/dL Indirect Bilirubin mg/dL ALT 138 H (7-56) units/L Alkaline Phosphatase 114 (35-129) units/L Ammonia (25-60) umol/L Total Creatine Kinase (55-170) units/L Troponin T (0.00-0.029) ng/mL Total Protein 6.9 (6.3-8.2) g/dL Albumin 3.1 L (3.9-5) g/dL Albumin/Globulin Ratio 0.8 % TSH (0.270-4.200) mlU/mL Urine Color (Yellow) Urine Turbidity (Clear) Urine pH (5.0-7.0) Ur Specific [place] (1.003-1.030) Urine Protein (Negative) mg/dL Urine Glucose (UA) (Negative) mg/dL Urine Ketones (Negative) mg/dL Urine Blood (Negative) Urine Nitrite (Negative) Urine Bilirubin (Negative) Urine Urobilinogen (<2.0) mg/dL Ur Leukocyte Esterase (Negative) Urine WBC (Auto) (0.0-6.0) /HPF Urine RBC (Auto) (0.0-6.0) /HPF Urine Bacteria (Auto) (Negative) /HPF Urine Mucus /HPF Urine Opiates Screen Urine Methadone Screen Ur Barbiturates Screen Ur Phencyclidine Scrn Ur Amphetamines Screen U Benzodiazepines Scrn Urine Cocaine Screen U Marijuana (THC) Screen Drugs of Abuse Note Plasma/Serum Alcohol (0-0.07) % JAMEEL Screen (Negative) Sm (Starkey) Antibody (<1.0) AI Mitochondria M2 Ab (<=20.0) U Hepatitis A IgM Ab (NonReactive) Hep Bs Antigen (Negative) Hep B Core IgM Ab (NonReactive) Hepatitis C Antibody (NonReactive) 09/05/18 09/05/18 09/05/18 Range/Units 16:19 16:19 16:19 WBC (4.5-11.0) K/mm3 RBC (3.65-5.03) M/mm3 Hgb (11.8-15.2) gm/dl Hct (35.5-45.6) % MCV (84-94) fl MCH (28-32) pg MCHC (32-34) % RDW (13.2-15.2) % Plt Count (140-440) K/mm3 Lymph % (Auto) (13.4-35.0) % Ross % (Auto) (0.0-7.3) % Eos % (Auto) (0.0-4.3) % Baso % (Auto) (0.0-1.8) % Lymph # (1.2-5.4) K/mm3 Ross # (0.0-0.8) K/mm3 Eos # (0.0-0.4) K/mm3 Baso # (0.0-0.1) K/mm3 Add Manual Diff Total Counted Seg Neutrophils % (40.0-70.0) % Seg Neuts % (Manual) (40.0-70.0) % Band Neutrophils % % Lymphocytes % (Manual) (13.4-35.0) % Reactive Lymphs % (Man) % Monocytes % (Manual) (0.0-7.3) % Eosinophils % (Manual) (0.0-4.3) % Basophils % (Manual) (0.0-1.8) % Metamyelocytes % % Myelocytes % % Promyelocytes % % Blast Cells % % Nucleated RBC % Seg Neutrophils # (1.8-7.7) K/mm3 Seg Neutrophils # Man (1.8-7.7) K/mm3 Band Neutrophils # K/mm3 Lymphocytes # (Manual) (1.2-5.4) K/mm3 Abs React Lymphs (Man) K/mm3 Monocytes # (Manual) (0.0-0.8) K/mm3 Eosinophils # (Manual) (0.0-0.4) K/mm3 Basophils # (Manual) (0.0-0.1) K/mm3 Metamyelocytes # K/mm3 Myelocytes # K/mm3 Promyelocytes # K/mm3 Blast Cells # K/mm3 WBC Morphology Hypersegmented Neuts Hyposegmented Neuts Hypogranular Neuts Smudge Cells Toxic Granulation Toxic Vacuolation Dohle Bodies Pelger-Huet Anomaly Giovanni Rods Platelet Estimate Clumped Platelets Plt Clumps, EDTA Large Platelets Giant Platelets Platelet Satelliting Plt Morphology Comment RBC Morphology Dimorphic RBCs Polychromasia Hypochromasia Poikilocytosis Anisocytosis Microcytosis Macrocytosis Spherocytes Pappenheimer Bodies Sickle Cells Target Cells Tear Drop Cells Ovalocytes Helmet Cells [place] Bodies [place] Rings Ages [place] Cells Bite Cells Crenated Cell Elliptocytes Acanthocytes (Spur) Rouleaux Hemoglobin C Crystals Schistocytes Malaria parasites Carlos A Bodies Hem Pathologist Commnt PT (12.2-14.9) Sec. INR (0.87-1.13) Sodium (137-145) mmol/L Potassium (3.6-5.0) mmol/L Chloride (98-107) mmol/L Carbon Dioxide (22-30) mmol/L Anion Gap mmol/L BUN (9-20) mg/dL Creatinine (0.8-1.5) mg/dL Estimated GFR ml/min BUN/Creatinine Ratio % Glucose (75-100) mg/dL POC Glucose (70-105) Lactic Acid (0.7-2.0) mmol/L Calcium (8.4-10.2) mg/dL Iron (49-181) ug/dL TIBC (250-450) mcg/dL Ferritin 2880.0 H (13.0-400.0) ng/mL Total Bilirubin (0.1-1.2) mg/dL Direct Bilirubin (0-0.2) mg/dL Indirect Bilirubin mg/dL ALT (7-56) units/L Alkaline Phosphatase (35-129) units/L Ammonia (25-60) umol/L Total Creatine Kinase (55-170) units/L Troponin T (0.00-0.029) ng/mL Total Protein (6.3-8.2) g/dL Albumin (3.9-5) g/dL Albumin/Globulin Ratio % TSH (0.270-4.200) mlU/mL Urine Color (Yellow) Urine Turbidity (Clear) Urine pH (5.0-7.0) Ur Specific [place] (1.003-1.030) Urine Protein (Negative) mg/dL Urine Glucose (UA) (Negative) mg/dL Urine Ketones (Negative) mg/dL Urine Blood (Negative) Urine Nitrite (Negative) Urine Bilirubin (Negative) Urine Urobilinogen (<2.0) mg/dL Ur Leukocyte Esterase (Negative) Urine WBC (Auto) (0.0-6.0) /HPF Urine RBC (Auto) (0.0-6.0) /HPF Urine Bacteria (Auto) (Negative) /HPF Urine Mucus /HPF Urine Opiates Screen Urine Methadone Screen Ur Barbiturates Screen Ur Phencyclidine Scrn Ur Amphetamines Screen U Benzodiazepines Scrn Urine Cocaine Screen U Marijuana (THC) Screen Drugs of Abuse Note Plasma/Serum Alcohol (0-0.07) % JAMEEL Screen Negative (Negative) Sm ([place]) Antibody (<1.0) AI Mitochondria M2 Ab <=20.0 (<=20.0) U Hepatitis A IgM Ab (NonReactive) Hep Bs Antigen (Negative) Hep B Core IgM Ab (NonReactive) Hepatitis C Antibody (NonReactive) 09/05/18 09/06/18 09/06/18 Range/Units 16:19 10:40 10:40 WBC 2.4 L (4.5-11.0) K/mm3 RBC 2.67 L (3.65-5.03) M/mm3 Hgb 7.7 L (11.8-15.2) gm/dl Hct 23.7 L (35.5-45.6) % MCV 89 (84-94) fl MCH 29 (28-32) pg MCHC 33 (32-34) % RDW 18.7 H (13.2-15.2) % Plt Count 135 L (140-440) K/mm3 Lymph % (Auto) 10.0 L (13.4-35.0) % Ross % (Auto) 8.4 H (0.0-7.3) % Eos % (Auto) 0.2 (0.0-4.3) % Baso % (Auto) 0.3 (0.0-1.8) % Lymph # 0.2 L (1.2-5.4) K/mm3 Ross # 0.2 (0.0-0.8) K/mm3 Eos # 0.0 (0.0-0.4) K/mm3 Baso # 0.0 (0.0-0.1) K/mm3 Add Manual Diff Total Counted Seg Neutrophils % 81.1 H (40.0-70.0) % Seg Neuts % (Manual) (40.0-70.0) % Band Neutrophils % % Lymphocytes % (Manual) (13.4-35.0) % Reactive Lymphs % (Man) % Monocytes % (Manual) (0.0-7.3) % Eosinophils % (Manual) (0.0-4.3) % Basophils % (Manual) (0.0-1.8) % Metamyelocytes % % Myelocytes % % Promyelocytes % % Blast Cells % % Nucleated RBC % Seg Neutrophils # 1.9 (1.8-7.7) K/mm3 Seg Neutrophils # Man (1.8-7.7) K/mm3 Band Neutrophils # K/mm3 Lymphocytes # (Manual) (1.2-5.4) K/mm3 Abs React Lymphs (Man) K/mm3 Monocytes # (Manual) (0.0-0.8) K/mm3 Eosinophils # (Manual) (0.0-0.4) K/mm3 Basophils # (Manual) (0.0-0.1) K/mm3 Metamyelocytes # K/mm3 Myelocytes # K/mm3 Promyelocytes # K/mm3 Blast Cells # K/mm3 WBC Morphology Hypersegmented Neuts Hyposegmented Neuts Hypogranular Neuts Smudge Cells Toxic Granulation Toxic Vacuolation Dohle Bodies Pelger-Huet Anomaly Giovanni Rods Platelet Estimate Clumped Platelets Plt Clumps, EDTA Large Platelets Giant Platelets Platelet Satelliting Plt Morphology Comment RBC Morphology Dimorphic RBCs Polychromasia Hypochromasia Poikilocytosis Anisocytosis Microcytosis Macrocytosis Spherocytes Pappenheimer Bodies Sickle Cells Target Cells Tear Drop Cells Ovalocytes Helmet Cells [place] Bodies [place] Rings Cinthya Cells Bite Cells Crenated Cell Elliptocytes Acanthocytes (Spur) Rouleaux Hemoglobin C Crystals Schistocytes Malaria parasites Carlos A Bodies Hem Pathologist Commnt PT (12.2-14.9) Sec. INR (0.87-1.13) Sodium 141 (137-145) mmol/L Potassium 4.0 (3.6-5.0) mmol/L Chloride 112.1 H (98-107) mmol/L Carbon Dioxide 19 L (22-30) mmol/L Anion Gap 14 mmol/L BUN 10 (9-20) mg/dL Creatinine 0.7 L (0.8-1.5) mg/dL Estimated GFR > 60 ml/min BUN/Creatinine Ratio 14 % Glucose 92 (75-100) mg/dL POC Glucose (70-105) Lactic Acid (0.7-2.0) mmol/L Calcium 7.8 L (8.4-10.2) mg/dL Iron (49-181) ug/dL TIBC (250-450) mcg/dL Ferritin (13.0-400.0) ng/mL Total Bilirubin 0.20 (0.1-1.2) mg/dL Direct Bilirubin < 0.2 (0-0.2) mg/dL Indirect Bilirubin 0.0 mg/dL ALT 143 H (7-56) units/L Alkaline Phosphatase 110 (35-129) units/L Ammonia (25-60) umol/L Total Creatine Kinase (55-170) units/L Troponin T (0.00-0.029) ng/mL Total Protein 6.1 L (6.3-8.2) g/dL Albumin 2.8 L (3.9-5) g/dL Albumin/Globulin Ratio 0.8 % TSH (0.270-4.200) mlU/mL Urine Color (Yellow) Urine Turbidity (Clear) Urine pH (5.0-7.0) Ur Specific [place] (1.003-1.030) Urine Protein (Negative) mg/dL Urine Glucose (UA) (Negative) mg/dL Urine Ketones (Negative) mg/dL Urine Blood (Negative) Urine Nitrite (Negative) Urine Bilirubin (Negative) Urine Urobilinogen (<2.0) mg/dL Ur Leukocyte Esterase (Negative) Urine WBC (Auto) (0.0-6.0) /HPF Urine RBC (Auto) (0.0-6.0) /HPF Urine Bacteria (Auto) (Negative) /HPF Urine Mucus /HPF Urine Opiates Screen Urine Methadone Screen Ur Barbiturates Screen Ur Phencyclidine Scrn Ur Amphetamines Screen U Benzodiazepines Scrn Urine Cocaine Screen U Marijuana (THC) Screen Drugs of Abuse Note Plasma/Serum Alcohol (0-0.07) % JAMEEL Screen (Negative) Sm (Starkey) Antibody <1.0 (<1.0) AI Mitochondria M2 Ab (<=20.0) U Hepatitis A IgM Ab (NonReactive) Hep Bs Antigen (Negative) Hep B Core IgM Ab (NonReactive) Hepatitis C Antibody (NonReactive) 09/07/18 09/07/18 09/08/18 Range/Units 10:38 10:38 06:39 WBC (4.5-11.0) K/mm3 RBC (3.65-5.03) M/mm3 Hgb (11.8-15.2) gm/dl Hct (35.5-45.6) % MCV (84-94) fl MCH (28-32) pg MCHC (32-34) % RDW (13.2-15.2) % Plt Count (140-440) K/mm3 Lymph % (Auto) (13.4-35.0) % Ross % (Auto) (0.0-7.3) % Eos % (Auto) (0.0-4.3) % Baso % (Auto) (0.0-1.8) % Lymph # (1.2-5.4) K/mm3 Ross # (0.0-0.8) K/mm3 Eos # (0.0-0.4) K/mm3 Baso # (0.0-0.1) K/mm3 Add Manual Diff Total Counted Seg Neutrophils % (40.0-70.0) % Seg Neuts % (Manual) (40.0-70.0) % Band Neutrophils % % Lymphocytes % (Manual) (13.4-35.0) % Reactive Lymphs % (Man) % Monocytes % (Manual) (0.0-7.3) % Eosinophils % (Manual) (0.0-4.3) % Basophils % (Manual) (0.0-1.8) % Metamyelocytes % % Myelocytes % % Promyelocytes % % Blast Cells % % Nucleated RBC % Seg Neutrophils # (1.8-7.7) K/mm3 Seg Neutrophils # Man (1.8-7.7) K/mm3 Band Neutrophils # K/mm3 Lymphocytes # (Manual) (1.2-5.4) K/mm3 Abs React Lymphs (Man) K/mm3 Monocytes # (Manual) (0.0-0.8) K/mm3 Eosinophils # (Manual) (0.0-0.4) K/mm3 Basophils # (Manual) (0.0-0.1) K/mm3 Metamyelocytes # K/mm3 Myelocytes # K/mm3 Promyelocytes # K/mm3 Blast Cells # K/mm3 WBC Morphology Hypersegmented Neuts Hyposegmented Neuts Hypogranular Neuts Smudge Cells Toxic Granulation Toxic Vacuolation Dohle Bodies Pelger-Huet Anomaly Giovanni Rods Platelet Estimate Clumped Platelets Plt Clumps, EDTA Large Platelets Giant Platelets Platelet Satelliting Plt Morphology Comment RBC Morphology Dimorphic RBCs Polychromasia Hypochromasia Poikilocytosis Anisocytosis Microcytosis Macrocytosis Spherocytes Pappenheimer Bodies Sickle Cells Target Cells Tear Drop Cells Ovalocytes Helmet Cells [place] Bodies [place] Rings Cinthya Cells Bite Cells Crenated Cell Elliptocytes Acanthocytes (Spur) Rouleaux Hemoglobin C Crystals Schistocytes Malaria parasites Carlos A Bodies Hem Pathologist Commnt PT (12.2-14.9) Sec. INR (0.87-1.13) Sodium (137-145) mmol/L Potassium (3.6-5.0) mmol/L Chloride (98-107) mmol/L Carbon Dioxide (22-30) mmol/L Anion Gap mmol/L BUN (9-20) mg/dL Creatinine (0.8-1.5) mg/dL Estimated GFR ml/min BUN/Creatinine Ratio % Glucose (75-100) mg/dL POC Glucose (70-105) Lactic Acid (0.7-2.0) mmol/L Calcium (8.4-10.2) mg/dL Iron 26 L (49-181) ug/dL TIBC 212 L (250-450) mcg/dL Ferritin 2762.0 H (13.0-400.0) ng/mL Total Bilirubin (0.1-1.2) mg/dL Direct Bilirubin (0-0.2) mg/dL Indirect Bilirubin mg/dL ALT (7-56) units/L Alkaline Phosphatase (35-129) units/L Ammonia (25-60) umol/L Total Creatine Kinase (55-170) units/L Troponin T (0.00-0.029) ng/mL Total Protein (6.3-8.2) g/dL Albumin (3.9-5) g/dL Albumin/Globulin Ratio % TSH (0.270-4.200) mlU/mL Urine Color (Yellow) Urine Turbidity (Clear) Urine pH (5.0-7.0) Ur Specific [place] (1.003-1.030) Urine Protein (Negative) mg/dL Urine Glucose (UA) (Negative) mg/dL Urine Ketones (Negative) mg/dL Urine Blood (Negative) Urine Nitrite (Negative) Urine Bilirubin (Negative) Urine Urobilinogen (<2.0) mg/dL Ur Leukocyte Esterase (Negative) Urine WBC (Auto) (0.0-6.0) /HPF Urine RBC (Auto) (0.0-6.0) /HPF Urine Bacteria (Auto) (Negative) /HPF Urine Mucus /HPF Urine Opiates Screen Urine Methadone Screen Ur Barbiturates Screen Ur Phencyclidine Scrn Ur Amphetamines Screen U Benzodiazepines Scrn Urine Cocaine Screen U Marijuana (THC) Screen Drugs of Abuse Note Plasma/Serum Alcohol (0-0.07) % JAMEEL Screen (Negative) Sm (Starkey) Antibody (<1.0) AI Mitochondria M2 Ab (<=20.0) U Hepatitis A IgM Ab Non-reactive (NonReactive) Hep Bs Antigen Non-reactive (Negative) Hep B Core IgM Ab Non-reactive (NonReactive) Hepatitis C Antibody Non-reactive (NonReactive) 09/08/18 09/08/18 09/08/18 Range/Units 06:39 06:39 13:43 WBC 5.2 (4.5-11.0) K/mm3 RBC 2.86 L (3.65-5.03) M/mm3 Hgb 8.3 L (11.8-15.2) gm/dl Hct 25.2 L (35.5-45.6) % MCV 88 (84-94) fl MCH 29 (28-32) pg MCHC 33 (32-34) % RDW 18.3 H (13.2-15.2) % Plt Count 123 L (140-440) K/mm3 Lymph % (Auto) 6.1 L (13.4-35.0) % Ross % (Auto) 6.4 (0.0-7.3) % Eos % (Auto) 0.0 (0.0-4.3) % Baso % (Auto) 0.2 (0.0-1.8) % Lymph # 0.3 L (1.2-5.4) K/mm3 Ross # 0.3 (0.0-0.8) K/mm3 Eos # 0.0 (0.0-0.4) K/mm3 Baso # 0.0 (0.0-0.1) K/mm3 Add Manual Diff Total Counted Seg Neutrophils % 87.3 H (40.0-70.0) % Seg Neuts % (Manual) (40.0-70.0) % Band Neutrophils % % Lymphocytes % (Manual) (13.4-35.0) % Reactive Lymphs % (Man) % Monocytes % (Manual) (0.0-7.3) % Eosinophils % (Manual) (0.0-4.3) % Basophils % (Manual) (0.0-1.8) % Metamyelocytes % % Myelocytes % % Promyelocytes % % Blast Cells % % Nucleated RBC % Seg Neutrophils # 4.5 (1.8-7.7) K/mm3 Seg Neutrophils # Man (1.8-7.7) K/mm3 Band Neutrophils # K/mm3 Lymphocytes # (Manual) (1.2-5.4) K/mm3 Abs React Lymphs (Man) K/mm3 Monocytes # (Manual) (0.0-0.8) K/mm3 Eosinophils # (Manual) (0.0-0.4) K/mm3 Basophils # (Manual) (0.0-0.1) K/mm3 Metamyelocytes # K/mm3 Myelocytes # K/mm3 Promyelocytes # K/mm3 Blast Cells # K/mm3 WBC Morphology Hypersegmented Neuts Hyposegmented Neuts Hypogranular Neuts Smudge Cells Toxic Granulation Toxic Vacuolation Dohle Bodies Pelger-Huet Anomaly Giovanni Rods Platelet Estimate Clumped Platelets Plt Clumps, EDTA Large Platelets Giant Platelets Platelet Satelliting Plt Morphology Comment RBC Morphology Dimorphic RBCs Polychromasia Hypochromasia Poikilocytosis Anisocytosis Microcytosis Macrocytosis Spherocytes Pappenheimer Bodies Sickle Cells Target Cells Tear Drop Cells Ovalocytes Helmet Cells [place] Bodies [place] Rings Ages [place] Cells Bite Cells Crenated Cell Elliptocytes Acanthocytes (Spur) Rouleaux Hemoglobin C Crystals Schistocytes Malaria parasites Carlos A Bodies Hem Pathologist Commnt PT (12.2-14.9) Sec. INR (0.87-1.13) Sodium 137 (137-145) mmol/L Potassium 3.2 L (3.6-5.0) mmol/L Chloride 111.9 H (98-107) mmol/L Carbon Dioxide 13 L (22-30) mmol/L Anion Gap 15 mmol/L BUN 6 L (9-20) mg/dL Creatinine 0.8 (0.8-1.5) mg/dL Estimated GFR > 60 ml/min BUN/Creatinine Ratio 8 % Glucose 118 H (75-100) mg/dL POC Glucose (70-105) Lactic Acid (0.7-2.0) mmol/L Calcium 7.5 L (8.4-10.2) mg/dL Iron (49-181) ug/dL TIBC (250-450) mcg/dL Ferritin (13.0-400.0) ng/mL Total Bilirubin 0.30 (0.1-1.2) mg/dL Direct Bilirubin < 0.2 (0-0.2) mg/dL Indirect Bilirubin mg/dL ALT 87 H (7-56) units/L Alkaline Phosphatase 111 (35-129) units/L Ammonia (25-60) umol/L Total Creatine Kinase (55-170) units/L Troponin T (0.00-0.029) ng/mL Total Protein 5.6 L (6.3-8.2) g/dL Albumin 2.6 L (3.9-5) g/dL Albumin/Globulin Ratio 0.9 % TSH (0.270-4.200) mlU/mL Urine Color (Yellow) Urine Turbidity (Clear) Urine pH (5.0-7.0) Ur Specific [place] (1.003-1.030) Urine Protein (Negative) mg/dL Urine Glucose (UA) (Negative) mg/dL Urine Ketones (Negative) mg/dL Urine Blood (Negative) Urine Nitrite (Negative) Urine Bilirubin (Negative) Urine Urobilinogen (<2.0) mg/dL Ur Leukocyte Esterase (Negative) Urine WBC (Auto) (0.0-6.0) /HPF Urine RBC (Auto) (0.0-6.0) /HPF Urine Bacteria (Auto) (Negative) /HPF Urine Mucus /HPF Urine Opiates Screen Urine Methadone Screen Ur Barbiturates Screen Ur Phencyclidine Scrn Ur Amphetamines Screen U Benzodiazepines Scrn Urine Cocaine Screen U Marijuana (THC) Screen Drugs of Abuse Note Plasma/Serum Alcohol (0-0.07) % JAMEEL Screen (Negative) Sm (Starkey) Antibody (<1.0) AI Mitochondria M2 Ab (<=20.0) U Hepatitis A IgM Ab (NonReactive) Hep Bs Antigen (Negative) Hep B Core IgM Ab (NonReactive) Hepatitis C Antibody (NonReactive) 09/09/18 09/09/18 09/09/18 Range/Units 07:03 07:18 07:31 WBC 3.5 L (4.5-11.0) K/mm3 RBC 2.82 L (3.65-5.03) M/mm3 Hgb 8.2 L (11.8-15.2) gm/dl Hct 24.6 L (35.5-45.6) % MCV 87 (84-94) fl MCH 29 (28-32) pg MCHC 33 (32-34) % RDW 18.8 H (13.2-15.2) % Plt Count 136 L (140-440) K/mm3 Lymph % (Auto) (13.4-35.0) % Ross % (Auto) (0.0-7.3) % Eos % (Auto) (0.0-4.3) % Baso % (Auto) (0.0-1.8) % Lymph # (1.2-5.4) K/mm3 Ross # (0.0-0.8) K/mm3 Eos # (0.0-0.4) K/mm3 Baso # (0.0-0.1) K/mm3 Add Manual Diff Total Counted Seg Neutrophils % (40.0-70.0) % Seg Neuts % (Manual) (40.0-70.0) % Band Neutrophils % % Lymphocytes % (Manual) (13.4-35.0) % Reactive Lymphs % (Man) % Monocytes % (Manual) (0.0-7.3) % Eosinophils % (Manual) (0.0-4.3) % Basophils % (Manual) (0.0-1.8) % Metamyelocytes % % Myelocytes % % Promyelocytes % % Blast Cells % % Nucleated RBC % Seg Neutrophils # (1.8-7.7) K/mm3 Seg Neutrophils # Man (1.8-7.7) K/mm3 Band Neutrophils # K/mm3 Lymphocytes # (Manual) (1.2-5.4) K/mm3 Abs React Lymphs (Man) K/mm3 Monocytes # (Manual) (0.0-0.8) K/mm3 Eosinophils # (Manual) (0.0-0.4) K/mm3 Basophils # (Manual) (0.0-0.1) K/mm3 Metamyelocytes # K/mm3 Myelocytes # K/mm3 Promyelocytes # K/mm3 Blast Cells # K/mm3 WBC Morphology Hypersegmented Neuts Hyposegmented Neuts Hypogranular Neuts Smudge Cells Toxic Granulation Toxic Vacuolation Dohle Bodies Pelger-Huet Anomaly Giovanni Rods Platelet Estimate Clumped Platelets Plt Clumps, EDTA Large Platelets Giant Platelets Platelet Satelliting Plt Morphology Comment RBC Morphology Dimorphic RBCs Polychromasia Hypochromasia Poikilocytosis Anisocytosis Microcytosis Macrocytosis Spherocytes Pappenheimer Bodies Sickle Cells Target Cells Tear Drop Cells Ovalocytes Helmet Cells [place] Bodies [place] Rings Cinthya Cells Bite Cells Crenated Cell Elliptocytes Acanthocytes (Spur) Rouleaux Hemoglobin C Crystals Schistocytes Malaria parasites Carlos A Bodies Hem Pathologist Commnt PT (12.2-14.9) Sec. INR (0.87-1.13) Sodium 138 (137-145) mmol/L Potassium 3.5 L (3.6-5.0) mmol/L Chloride 108.6 H (98-107) mmol/L Carbon Dioxide 15 L (22-30) mmol/L Anion Gap 18 mmol/L BUN 4 L (9-20) mg/dL Creatinine 0.9 (0.8-1.5) mg/dL Estimated GFR > 60 ml/min BUN/Creatinine Ratio 4 % Glucose 91 (75-100) mg/dL POC Glucose 91 (70-105) Lactic Acid (0.7-2.0) mmol/L Calcium 7.5 L (8.4-10.2) mg/dL Iron (49-181) ug/dL TIBC (250-450) mcg/dL Ferritin (13.0-400.0) ng/mL Total Bilirubin 0.20 (0.1-1.2) mg/dL Direct Bilirubin (0-0.2) mg/dL Indirect Bilirubin mg/dL ALT 86 H (7-56) units/L Alkaline Phosphatase 114 (35-129) units/L Ammonia (25-60) umol/L Total Creatine Kinase (55-170) units/L Troponin T (0.00-0.029) ng/mL Total Protein 6.0 L (6.3-8.2) g/dL Albumin 2.6 L (3.9-5) g/dL Albumin/Globulin Ratio 0.8 % TSH (0.270-4.200) mlU/mL Urine Color (Yellow) Urine Turbidity (Clear) Urine pH (5.0-7.0) Ur Specific [place] (1.003-1.030) Urine Protein (Negative) mg/dL Urine Glucose (UA) (Negative) mg/dL Urine Ketones (Negative) mg/dL Urine Blood (Negative) Urine Nitrite (Negative) Urine Bilirubin (Negative) Urine Urobilinogen (<2.0) mg/dL Ur Leukocyte Esterase (Negative) Urine WBC (Auto) (0.0-6.0) /HPF Urine RBC (Auto) (0.0-6.0) /HPF Urine Bacteria (Auto) (Negative) /HPF Urine Mucus /HPF Urine Opiates Screen Urine Methadone Screen Ur Barbiturates Screen Ur Phencyclidine Scrn Ur Amphetamines Screen U Benzodiazepines Scrn Urine Cocaine Screen U Marijuana (THC) Screen Drugs of Abuse Note Plasma/Serum Alcohol (0-0.07) % JAMEEL Screen (Negative) Sm (Starkey) Antibody (<1.0) AI Mitochondria M2 Ab (<=20.0) U Hepatitis A IgM Ab (NonReactive) Hep Bs Antigen (Negative) Hep B Core IgM Ab (NonReactive) Hepatitis C Antibody (NonReactive) 09/09/18 09/10/18 09/10/18 Range/Units 19:26 00:20 04:26 WBC 2.1 L (4.5-11.0) K/mm3 RBC 3.10 L (3.65-5.03) M/mm3 Hgb 9.0 L (11.8-15.2) gm/dl Hct 27.1 L (35.5-45.6) % MCV 87 (84-94) fl MCH 29 (28-32) pg MCHC 33 (32-34) % RDW 18.6 H (13.2-15.2) % Plt Count 139 L (140-440) K/mm3 Lymph % (Auto) (13.4-35.0) % Ross % (Auto) (0.0-7.3) % Eos % (Auto) (0.0-4.3) % Baso % (Auto) (0.0-1.8) % Lymph # (1.2-5.4) K/mm3 Ross # (0.0-0.8) K/mm3 Eos # (0.0-0.4) K/mm3 Baso # (0.0-0.1) K/mm3 Add Manual Diff Complete Total Counted 100 Seg Neutrophils % (40.0-70.0) % Seg Neuts % (Manual) 77.0 H (40.0-70.0) % Band Neutrophils % 0 % Lymphocytes % (Manual) 11.0 L (13.4-35.0) % Reactive Lymphs % (Man) 1.0 % Monocytes % (Manual) 11.0 H (0.0-7.3) % Eosinophils % (Manual) 0 (0.0-4.3) % Basophils % (Manual) 0 (0.0-1.8) % Metamyelocytes % 0 % Myelocytes % 0 % Promyelocytes % 0 % Blast Cells % 0 % Nucleated RBC % Not Reportable Seg Neutrophils # (1.8-7.7) K/mm3 Seg Neutrophils # Man 1.6 L (1.8-7.7) K/mm3 Band Neutrophils # 0.0 K/mm3 Lymphocytes # (Manual) 0.2 L (1.2-5.4) K/mm3 Abs React Lymphs (Man) 0.0 K/mm3 Monocytes # (Manual) 0.2 (0.0-0.8) K/mm3 Eosinophils # (Manual) 0.0 (0.0-0.4) K/mm3 Basophils # (Manual) 0.0 (0.0-0.1) K/mm3 Metamyelocytes # 0.0 K/mm3 Myelocytes # 0.0 K/mm3 Promyelocytes # 0.0 K/mm3 Blast Cells # 0.0 K/mm3 WBC Morphology Not Reportable Hypersegmented Neuts Not Reportable Hyposegmented Neuts Not Reportable Hypogranular Neuts Not Reportable Smudge Cells Not Reportable Toxic Granulation Not Reportable Toxic Vacuolation Not Reportable Dohle Bodies Not Reportable Pelger-Huet Anomaly Not Reportable Giovanni Rods Not Reportable Platelet Estimate Consistent w auto Clumped Platelets Not Reportable Plt Clumps, EDTA Not Reportable Large Platelets Not Reportable Giant Platelets Not Reportable Platelet Satelliting Not Reportable Plt Morphology Comment Not Reportable RBC Morphology Not Reportable Dimorphic RBCs Not Reportable Polychromasia Not Reportable Hypochromasia Not Reportable Poikilocytosis Not Reportable Anisocytosis 2+ Microcytosis Not Reportable Macrocytosis Not Reportable Spherocytes Not Reportable Pappenheimer Bodies Not Reportable Sickle Cells Not Reportable Target Cells Not Reportable Tear Drop Cells Not Reportable Ovalocytes 2+ Helmet Cells Not Reportable [place] Bodies Not Reportable [place] Rings Not Reportable Ages [place] Cells Not Reportable Bite Cells Not Reportable Crenated Cell Not Reportable Elliptocytes Not Reportable Acanthocytes (Spur) Not Reportable Rouleaux Not Reportable Hemoglobin C Crystals Not Reportable Schistocytes Not Reportable Malaria parasites Not Reportable Carlos A Bodies Not Reportable Hem Pathologist Commnt No PT (12.2-14.9) Sec. INR (0.87-1.13) Sodium (137-145) mmol/L Potassium (3.6-5.0) mmol/L Chloride (98-107) mmol/L Carbon Dioxide (22-30) mmol/L Anion Gap mmol/L BUN (9-20) mg/dL Creatinine (0.8-1.5) mg/dL Estimated GFR ml/min BUN/Creatinine Ratio % Glucose (75-100) mg/dL POC Glucose (70-105) Lactic Acid (0.7-2.0) mmol/L Calcium (8.4-10.2) mg/dL Iron (49-181) ug/dL TIBC (250-450) mcg/dL Ferritin (13.0-400.0) ng/mL Total Bilirubin (0.1-1.2) mg/dL Direct Bilirubin (0-0.2) mg/dL Indirect Bilirubin mg/dL ALT (7-56) units/L Alkaline Phosphatase (35-129) units/L Ammonia (25-60) umol/L Total Creatine Kinase (55-170) units/L Troponin T < 0.010 < 0.010 (0.00-0.029) ng/mL Total Protein (6.3-8.2) g/dL Albumin (3.9-5) g/dL Albumin/Globulin Ratio % TSH (0.270-4.200) mlU/mL Urine Color (Yellow) Urine Turbidity (Clear) Urine pH (5.0-7.0) Ur Specific [place] (1.003-1.030) Urine Protein (Negative) mg/dL Urine Glucose (UA) (Negative) mg/dL Urine Ketones (Negative) mg/dL Urine Blood (Negative) Urine Nitrite (Negative) Urine Bilirubin (Negative) Urine Urobilinogen (<2.0) mg/dL Ur Leukocyte Esterase (Negative) Urine WBC (Auto) (0.0-6.0) /HPF Urine RBC (Auto) (0.0-6.0) /HPF Urine Bacteria (Auto) (Negative) /HPF Urine Mucus /HPF Urine Opiates Screen Urine Methadone Screen Ur Barbiturates Screen Ur Phencyclidine Scrn Ur Amphetamines Screen U Benzodiazepines Scrn Urine Cocaine Screen U Marijuana (THC) Screen Drugs of Abuse Note Plasma/Serum Alcohol (0-0.07) % JAMEEL Screen (Negative) Sm (Starkey) Antibody (<1.0) AI Mitochondria M2 Ab (<=20.0) U Hepatitis A IgM Ab (NonReactive) Hep Bs Antigen (Negative) Hep B Core IgM Ab (NonReactive) Hepatitis C Antibody (NonReactive) 09/10/18 09/10/18 09/10/18 Range/Units 04:26 04:26 12:14 WBC (4.5-11.0) K/mm3 RBC (3.65-5.03) M/mm3 Hgb (11.8-15.2) gm/dl Hct (35.5-45.6) % MCV (84-94) fl MCH (28-32) pg MCHC (32-34) % RDW (13.2-15.2) % Plt Count (140-440) K/mm3 Lymph % (Auto) (13.4-35.0) % Ross % (Auto) (0.0-7.3) % Eos % (Auto) (0.0-4.3) % Baso % (Auto) (0.0-1.8) % Lymph # (1.2-5.4) K/mm3 Ross # (0.0-0.8) K/mm3 Eos # (0.0-0.4) K/mm3 Baso # (0.0-0.1) K/mm3 Add Manual Diff Total Counted Seg Neutrophils % (40.0-70.0) % Seg Neuts % (Manual) (40.0-70.0) % Band Neutrophils % % Lymphocytes % (Manual) (13.4-35.0) % Reactive Lymphs % (Man) % Monocytes % (Manual) (0.0-7.3) % Eosinophils % (Manual) (0.0-4.3) % Basophils % (Manual) (0.0-1.8) % Metamyelocytes % % Myelocytes % % Promyelocytes % % Blast Cells % % Nucleated RBC % Seg Neutrophils # (1.8-7.7) K/mm3 Seg Neutrophils # Man (1.8-7.7) K/mm3 Band Neutrophils # K/mm3 Lymphocytes # (Manual) (1.2-5.4) K/mm3 Abs React Lymphs (Man) K/mm3 Monocytes # (Manual) (0.0-0.8) K/mm3 Eosinophils # (Manual) (0.0-0.4) K/mm3 Basophils # (Manual) (0.0-0.1) K/mm3 Metamyelocytes # K/mm3 Myelocytes # K/mm3 Promyelocytes # K/mm3 Blast Cells # K/mm3 WBC Morphology Hypersegmented Neuts Hyposegmented Neuts Hypogranular Neuts Smudge Cells Toxic Granulation Toxic Vacuolation Dohle Bodies Pelger-Huet Anomaly Giovanni Rods Platelet Estimate Clumped Platelets Plt Clumps, EDTA Large Platelets Giant Platelets Platelet Satelliting Plt Morphology Comment RBC Morphology Dimorphic RBCs Polychromasia Hypochromasia Poikilocytosis Anisocytosis Microcytosis Macrocytosis Spherocytes Pappenheimer Bodies Sickle Cells Target Cells Tear Drop Cells Ovalocytes Helmet Cells [place] Bodies [place] Rings Ages [place] Cells Bite Cells Crenated Cell Elliptocytes Acanthocytes (Spur) Rouleaux Hemoglobin C Crystals Schistocytes Malaria parasites Carlos A Bodies Hem Pathologist Commnt PT (12.2-14.9) Sec. INR (0.87-1.13) Sodium 138 (137-145) mmol/L Potassium 3.8 (3.6-5.0) mmol/L Chloride 112.7 H (98-107) mmol/L Carbon Dioxide 14 L (22-30) mmol/L Anion Gap 15 mmol/L BUN 5 L (9-20) mg/dL Creatinine 0.9 (0.8-1.5) mg/dL Estimated GFR > 60 ml/min BUN/Creatinine Ratio 6 % Glucose 109 H (75-100) mg/dL POC Glucose (70-105) Lactic Acid (0.7-2.0) mmol/L Calcium 7.7 L (8.4-10.2) mg/dL Iron (49-181) ug/dL TIBC (250-450) mcg/dL Ferritin (13.0-400.0) ng/mL Total Bilirubin 0.20 (0.1-1.2) mg/dL Direct Bilirubin (0-0.2) mg/dL Indirect Bilirubin mg/dL ALT 76 H (7-56) units/L Alkaline Phosphatase 120 (35-129) units/L Ammonia (25-60) umol/L Total Creatine Kinase (55-170) units/L Troponin T < 0.010 < 0.010 (0.00-0.029) ng/mL Total Protein 6.0 L (6.3-8.2) g/dL Albumin 2.8 L (3.9-5) g/dL Albumin/Globulin Ratio 0.9 % TSH (0.270-4.200) mlU/mL Urine Color (Yellow) Urine Turbidity (Clear) Urine pH (5.0-7.0) Ur Specific [place] (1.003-1.030) Urine Protein (Negative) mg/dL Urine Glucose (UA) (Negative) mg/dL Urine Ketones (Negative) mg/dL Urine Blood (Negative) Urine Nitrite (Negative) Urine Bilirubin (Negative) Urine Urobilinogen (<2.0) mg/dL Ur Leukocyte Esterase (Negative) Urine WBC (Auto) (0.0-6.0) /HPF Urine RBC (Auto) (0.0-6.0) /HPF Urine Bacteria (Auto) (Negative) /HPF Urine Mucus /HPF Urine Opiates Screen Urine Methadone Screen Ur Barbiturates Screen Ur Phencyclidine Scrn Ur Amphetamines Screen U Benzodiazepines Scrn Urine Cocaine Screen U Marijuana (THC) Screen Drugs of Abuse Note Plasma/Serum Alcohol (0-0.07) % JAMEEL Screen (Negative) Sm (Starkey) Antibody (<1.0) AI Mitochondria M2 Ab (<=20.0) U Hepatitis A IgM Ab (NonReactive) Hep Bs Antigen (Negative) Hep B Core IgM Ab (NonReactive) Hepatitis C Antibody (NonReactive) 09/11/18 Range/Units 05:22 WBC (4.5-11.0) K/mm3 RBC (3.65-5.03) M/mm3 Hgb (11.8-15.2) gm/dl Hct (35.5-45.6) % MCV (84-94) fl MCH (28-32) pg MCHC (32-34) % RDW (13.2-15.2) % Plt Count (140-440) K/mm3 Lymph % (Auto) (13.4-35.0) % Ross % (Auto) (0.0-7.3) % Eos % (Auto) (0.0-4.3) % Baso % (Auto) (0.0-1.8) % Lymph # (1.2-5.4) K/mm3 Ross # (0.0-0.8) K/mm3 Eos # (0.0-0.4) K/mm3 Baso # (0.0-0.1) K/mm3 Add Manual Diff Total Counted Seg Neutrophils % (40.0-70.0) % Seg Neuts % (Manual) (40.0-70.0) % Band Neutrophils % % Lymphocytes % (Manual) (13.4-35.0) % Reactive Lymphs % (Man) % Monocytes % (Manual) (0.0-7.3) % Eosinophils % (Manual) (0.0-4.3) % Basophils % (Manual) (0.0-1.8) % Metamyelocytes % % Myelocytes % % Promyelocytes % % Blast Cells % % Nucleated RBC % Seg Neutrophils # (1.8-7.7) K/mm3 Seg Neutrophils # Man (1.8-7.7) K/mm3 Band Neutrophils # K/mm3 Lymphocytes # (Manual) (1.2-5.4) K/mm3 Abs React Lymphs (Man) K/mm3 Monocytes # (Manual) (0.0-0.8) K/mm3 Eosinophils # (Manual) (0.0-0.4) K/mm3 Basophils # (Manual) (0.0-0.1) K/mm3 Metamyelocytes # K/mm3 Myelocytes # K/mm3 Promyelocytes # K/mm3 Blast Cells # K/mm3 WBC Morphology Hypersegmented Neuts Hyposegmented Neuts Hypogranular Neuts Smudge Cells Toxic Granulation Toxic Vacuolation Dohle Bodies Pelger-Huet Anomaly Giovanni Rods Platelet Estimate Clumped Platelets Plt Clumps, EDTA Large Platelets Giant Platelets Platelet Satelliting Plt Morphology Comment RBC Morphology Dimorphic RBCs Polychromasia Hypochromasia Poikilocytosis Anisocytosis Microcytosis Macrocytosis Spherocytes Pappenheimer Bodies Sickle Cells Target Cells Tear Drop Cells Ovalocytes Helmet Cells [place] Bodies [place] Rings Cinthya Cells Bite Cells Crenated Cell Elliptocytes Acanthocytes (Spur) Rouleaux Hemoglobin C Crystals Schistocytes Malaria parasites Carlos A Bodies Hem Pathologist Commnt PT 15.1 H (12.2-14.9) Sec. INR 1.12 (0.87-1.13) Sodium (137-145) mmol/L Potassium (3.6-5.0) mmol/L Chloride (98-107) mmol/L Carbon Dioxide (22-30) mmol/L Anion Gap mmol/L BUN (9-20) mg/dL Creatinine (0.8-1.5) mg/dL Estimated GFR ml/min BUN/Creatinine Ratio % Glucose (75-100) mg/dL POC Glucose (70-105) Lactic Acid (0.7-2.0) mmol/L Calcium (8.4-10.2) mg/dL Iron (49-181) ug/dL TIBC (250-450) mcg/dL Ferritin (13.0-400.0) ng/mL Total Bilirubin (0.1-1.2) mg/dL Direct Bilirubin (0-0.2) mg/dL Indirect Bilirubin mg/dL ALT (7-56) units/L Alkaline Phosphatase (35-129) units/L Ammonia (25-60) umol/L Total Creatine Kinase (55-170) units/L Troponin T (0.00-0.029) ng/mL Total Protein (6.3-8.2) g/dL Albumin (3.9-5) g/dL Albumin/Globulin Ratio % TSH (0.270-4.200) mlU/mL Urine Color (Yellow) Urine Turbidity (Clear) Urine pH (5.0-7.0) Ur Specific Grover (1.003-1.030) Urine Protein (Negative) mg/dL Urine Glucose (UA) (Negative) mg/dL Urine Ketones (Negative) mg/dL Urine Blood (Negative) Urine Nitrite (Negative) Urine Bilirubin (Negative) Urine Urobilinogen (<2.0) mg/dL Ur Leukocyte Esterase (Negative) Urine WBC (Auto) (0.0-6.0) /HPF Urine RBC (Auto) (0.0-6.0) /HPF Urine Bacteria (Auto) (Negative) /HPF Urine Mucus /HPF Urine Opiates Screen Urine Methadone Screen Ur Barbiturates Screen Ur Phencyclidine Scrn Ur Amphetamines Screen U Benzodiazepines Scrn Urine Cocaine Screen U Marijuana (THC) Screen Drugs of Abuse Note Plasma/Serum Alcohol (0-0.07) % JAMEEL Screen (Negative) Sm ([place]) Antibody (<1.0) AI Mitochondria M2 Ab (<=20.0) U Hepatitis A IgM Ab (NonReactive) Hep Bs Antigen (Negative) Hep B Core IgM Ab (NonReactive) Hepatitis C Antibody (NonReactive) Coagulation 09/11/18 Range/Units 05:22 PT 15.1 H (12.2-14.9) Sec. INR 1.12 (0.87-1.13) - Imaging and Cardiology EKG: report reviewed, image reviewed Echo: pending - EKG Sinus rhythms and dysrhythmias: sinus rhythm
--- NOTE | 2018-09-11 11:56 | Progress Note ---
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 + chronic maxillary and ethmoid sinusitis. s/p MRI brain to eval for possibility of PRODUCE [employer]NER lesions: toxoplasma, PML, space occupying lesions, Cryptococcal meningitis. Brain MRI report showed no acute pr ocess. Continue supportive care HIV/AIDs: consulted ID, patient is noncompliant. Offered hospice per ID, patient refused Worsening Transaminitis: consulted GI, cmp daily, - abdominal US unremarkable but notes only portions of liver examined. - reviewed CT abdomen showing possible enteritis and somewhat inhomogenous liver. - may be due to ischemic hepatitis, HIV/AIDs hepatopathy, infectious etiology with viral hepatitis, vs drug toxicity. AOCD: monitor cbc daily Severe Malnutrition: consulted [employer] Acute Renal Failure, vasomotor nephropathy, poa, Cr is 1.0, up from baseline of 0.5: treat with IVF and bmp/cmp daily, Oral Candidiasis, treated, tolerating diet, will monitor, Non-adherence to medical therapy: counseling done Lactic acidosis, Resolved status post IV hydration Hyperammonemia-Lactulose ordered but patient refuses DVT prophylaxis with Lovenox but pt is refusing, counseling done again Subjective Date of service: 09/10/18 Principal diagnosis: elevated LFTs, oral candidiasis Interval history: Symptomatically better Objective - Constitutional Vitals: Vital Signs - 12hr 09/11/18 09/11/18 00:39 04:38 Temperature 97.5 F L 97.3 F L Pulse Rate 54 L 53 L Respiratory 18 18 Rate Blood Pressure 82/52 75/41 O2 Sat by Pulse 99 99 Oximetry General appearance: Present: no acute distress, well-nourished - EENT Eyes: PERRL, EOM intact ENT: hearing intact, clear oral mucosa Ears: bilateral: normal - Neck Neck: supple, normal ROM - Respiratory Respiratory effort: normal Respiratory: bilateral: CTA - Breasts Breasts: normal - Cardiovascular Rhythm: regular Heart Sounds: Present: S1 & S2. Absent: gallop, rub Extremities: pulses intact, No edema, normal color, Full ROM - Gastrointestinal General gastrointestinal: Present: soft, non-tender, non-distended, normal bowel sounds - Genitourinary Male genitourinary: normal - Integumentary Integumentary: clear, warm, dry - Musculoskeletal Musculoskeletal: 1, strength equal bilaterally - Neurologic Neurologic: moves all extremities - Psychiatric Psychiatric: memory intact, appropriate mood/affect, intact judgment & insight - Labs CBC & Chem 7: 09/10/18 04:26 09/10/18 04:26 Labs: Abnormal lab results 09/11/18 Range/Units 05:22 PT 15.1 H (12.2-14.9) Sec.
--- NOTE | 2018-09-11 12:00 | Progress Note ---
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 Offered hospice per ID, patient refused Worsening Transaminitis: consulted GI, cmp daily, - abdominal US unremarkable but notes only portions of liver examined. - reviewed CT abdomen showing possible enteritis and somewhat inhomogenous liver. - may be due to ischemic hepatitis, HIV/AIDs hepatopathy, infectious etiology with viral hepatitis, vs drug toxicity. Severe Malnutrition: consulted [employer] Acute Renal Failure, vasomotor nephropathy, poa, Cr is 1.0, up from baseline of 0.5: treat with IVF and bmp/cmp daily, Oral Candidiasis Improved Non-adherence to medical therapy: counseling done Lactic acidosis, Resolved status post IV hydration Hyperammonemia-Lactulose ordered but patient refuses DVT prophylaxis Lovenox but pt is refusing, counseling done again Subjective Date of service: 09/11/18 Principal diagnosis: elevated LFTs, oral candidiasis Interval history: Symptomatically better Objective - Constitutional Vitals: Vital Signs - 12hr 09/11/18 09/11/18 00:39 04:38 Temperature 97.5 F L 97.3 F L Pulse Rate 54 L 53 L Respiratory 18 18 Rate Blood Pressure 82/52 75/41 O2 Sat by Pulse 99 99 Oximetry General appearance: Present: no acute distress, well-nourished - EENT Eyes: PERRL, EOM intact ENT: hearing intact, clear oral mucosa Ears: bilateral: normal - Neck Neck: supple, normal ROM - Respiratory Respiratory effort: normal Respiratory: bilateral: CTA - Breasts Breasts: normal - Cardiovascular Heart rate: 78 Rhythm: regular Heart Sounds: Present: S1 & S2. Absent: gallop, rub Extremities: no ischemia, pulses intact, No edema, normal color, Full ROM - Gastrointestinal General gastrointestinal: Present: soft, non-tender, non-distended, normal bowel sounds - Genitourinary Male genitourinary: normal - Integumentary Integumentary: clear, warm, dry - Musculoskeletal Musculoskeletal: 1, strength equal bilaterally - Neurologic Neurologic: moves all extremities - Psychiatric Psychiatric: memory intact, appropriate mood/affect, intact judgment & insight - Labs CBC & Chem 7: 09/10/18 04:26 09/10/18 04:26 Labs: Abnormal lab results 09/11/18 Range/Units 05:22 PT 15.1 H (12.2-14.9) Sec.
[2018-09-11] MEDS: NACL 0.9% 1000 ML 1,000 ML IV SCH (13:23)
--- NOTE | 2018-09-11 21:44 | Progress Note ---
Assessment and Plan Patient sleeping at this time on room air. No acute respiratory distress.O2 saturation 100%. - Patient Problems (1) Pneumonia Current Visit: Yes Status: Acute Qualifiers: Pneumonia type: due to unspecified organism Laterality: left Lung location: lower lobe of lung Qualified Code(s): J18.1 - Lobar pneumonia, unspecified organism Plan to address problem: Patient is on Cefepime and bactium. (2) AIDS Current Visit: Yes Status: Chronic Plan to address problem: Management as per infectious diseases. (3) Altered mental status Current Visit: Yes Status: Acute Plan to address problem: Can not assess at this time. Patient sleeping. (4) Oral candidiasis Current Visit: Yes Status: Acute Plan to address problem: Patient getting nystatin. Subjective Date of service: 09/11/18 Principal diagnosis: elevated LFTs, oral candidiasis Interval history: Patient sleeping at this time on room air. No acute respiratory distress.O2 saturation 100%. Objective Vital Signs - 12hr 09/11/18 09/11/18 09/11/18 10:00 13:00 16:18 Temperature 98.4 F Pulse Rate 54 L 46 L Pulse Rate [ 41 L From Monitor] Respiratory 16 18 Rate Blood Pressure 89/55 92/54 O2 Sat by Pulse 96 96 98 Oximetry 09/11/18 20:43 Temperature Pulse Rate Pulse Rate [ 55 L From Monitor] Respiratory 16 Rate Blood Pressure O2 Sat by Pulse 96 Oximetry Constitutional: no acute distress, asleep Eyes: non-icteric ENT: oropharynx moist Neck: supple, no lymphadenopathy Ascultation: Bilateral: diminished breath sounds, other (Prolonged expiratory phase.) Cardiovascular: regular rate and rhythm Gastrointestinal: normoactive bowel sounds, soft, non-tender Integumentary: normal Extremities: no cyanosis, no edema Neurologic: other (Patient is sleeping.) Psychiatric: other (Patient sleeping.) CBC and BMP: 09/10/18 04:26 09/10/18 04:26 ABG, PT/INR, D-dimer: PT/INR, D-dimer PT 15.1 Sec. (12.2-14.9) H 09/11/18 05:22 INR 1.12 (0.87-1.13) 09/11/18 05:22 Abnormal lab findings: Abnormal Labs 09/04/18 09/04/18 09/04/18 21:00 21:00 22:32 WBC RBC 3.23 L Hgb 9.6 L Hct 28.9 L RDW 18.8 H Plt Count Lymph % (Auto) [place] % (Auto) 12.5 H Lymph # 0.7 L Seg Neutrophils % 72.4 H Seg Neuts % (Manual) Lymphocytes % (Manual) Monocytes % (Manual) Seg Neutrophils # Man Lymphocytes # (Manual) PT Potassium Chloride 109.9 H Carbon Dioxide 21 L BUN 31 H Creatinine Glucose Lactic Acid 2.40 H* Calcium 8.2 L Iron TIBC Ferritin AST 200 H ALT 136 H Alkaline Phosphatase 138 H Ammonia Total Protein Albumin 3.5 L 09/04/18 09/05/18 09/05/18 22:32 16:19 16:19 WBC RBC Hgb Hct RDW Plt Count Lymph % (Auto) [place] % (Auto) Lymph # Seg Neutrophils % Seg Neuts % (Manual) Lymphocytes % (Manual) Monocytes % (Manual) Seg Neutrophils # Man Lymphocytes # (Manual) PT Potassium Chloride 112.4 H Carbon Dioxide 19 L BUN Creatinine Glucose Lactic Acid Calcium 8.1 L Iron TIBC 223 L Ferritin AST 241 H ALT 138 H Alkaline Phosphatase Ammonia 64.0 H Total Protein Albumin 3.1 L 09/05/18 09/06/18 09/06/18 16:19 10:40 10:40 WBC 2.4 L RBC 2.67 L Hgb 7.7 L Hct 23.7 L RDW 18.7 H Plt Count 135 L Lymph % (Auto) 10.0 L [place] % (Auto) 8.4 H Lymph # 0.2 L Seg Neutrophils % 81.1 H Seg Neuts % (Manual) Lymphocytes % (Manual) Monocytes % (Manual) Seg Neutrophils # Man Lymphocytes # (Manual) PT Potassium Chloride 112.1 H Carbon Dioxide 19 L BUN Creatinine 0.7 L Glucose Lactic Acid Calcium 7.8 L Iron TIBC Ferritin 2880.0 H AST 263 H ALT 143 H Alkaline Phosphatase Ammonia Total Protein 6.1 L Albumin 2.8 L 09/07/18 09/07/18 09/08/18 10:38 10:38 06:39 WBC RBC 2.86 L Hgb 8.3 L Hct 25.2 L RDW 18.3 H Plt Count 123 L Lymph % (Auto) 6.1 L [place] % (Auto) Lymph # 0.3 L Seg Neutrophils % 87.3 H Seg Neuts % (Manual) Lymphocytes % (Manual) Monocytes % (Manual) Seg Neutrophils # Man Lymphocytes # (Manual) PT Potassium Chloride Carbon Dioxide BUN Creatinine Glucose Lactic Acid Calcium Iron 26 L TIBC 212 L Ferritin 2762.0 H AST ALT Alkaline Phosphatase Ammonia Total Protein Albumin 09/08/18 09/08/18 09/09/18 06:39 13:43 07:03 WBC RBC Hgb Hct RDW Plt Count Lymph % (Auto) [place] % (Auto) Lymph # Seg Neutrophils % Seg Neuts % (Manual) Lymphocytes % (Manual) Monocytes % (Manual) Seg Neutrophils # Man Lymphocytes # (Manual) PT Potassium 3.2 L 3.5 L Chloride 111.9 H 108.6 H Carbon Dioxide 13 L 15 L BUN 6 L 4 L Creatinine Glucose 118 H Lactic Acid Calcium 7.5 L 7.5 L Iron TIBC Ferritin AST 117 H 130 H ALT 87 H 86 H Alkaline Phosphatase Ammonia Total Protein 5.6 L 6.0 L Albumin 2.6 L 2.6 L 09/09/18 09/10/18 09/10/18 07:31 04:26 04:26 WBC 3.5 L 2.1 L RBC 2.82 L 3.10 L Hgb 8.2 L 9.0 L Hct 24.6 L 27.1 L RDW 18.8 H 18.6 H Plt Count 136 L 139 L Lymph % (Auto) [place] % (Auto) Lymph # Seg Neutrophils % Seg Neuts % (Manual) 77.0 H Lymphocytes % (Manual) 11.0 L Monocytes % (Manual) 11.0 H Seg Neutrophils # Man 1.6 L Lymphocytes # (Manual) 0.2 L PT Potassium Chloride 112.7 H Carbon Dioxide 14 L BUN 5 L Creatinine Glucose 109 H Lactic Acid Calcium 7.7 L Iron TIBC Ferritin AST 110 H ALT 76 H Alkaline Phosphatase Ammonia Total Protein 6.0 L Albumin 2.8 L 09/11/18 05:22 WBC RBC Hgb Hct RDW Plt Count Lymph % (Auto) [place] % (Auto) Lymph # Seg Neutrophils % Seg Neuts % (Manual) Lymphocytes % (Manual) Monocytes % (Manual) Seg Neutrophils # Man Lymphocytes # (Manual) PT 15.1 H Potassium Chloride Carbon Dioxide BUN Creatinine Glucose Lactic Acid Calcium Iron TIBC Ferritin AST ALT Alkaline Phosphatase Ammonia Total Protein Albumin CT scan - chest: report reviewed (Reported bilateral infiltrates, more prominenet left lower lobe.Also reported broncheotic changes on left side.), image reviewed
[2018-09-12] MEDS: BACTRIM IV SCH ×2 (02:37→10:25)
[2018-09-12] MEDS: D5W IV SCH ×2 (02:37→10:25)
[2018-09-12] MEDS: MAXIPIME/NS 1 GM/100 ML 1 GM/100 ML BAG IV SCH ×2 (05:28→14:34)
--- NOTE | 2018-09-12 09:54 | Progress Note ---
Assessment and Plan Culture 09/08/2018 Blood culture: no growth 09/08/2018 Serum Cr Ag: negative 09/09/2018 Blood culture: no growth thus far Fungal blood culture: in process A/P: 42 year old male, know to ID from previous admissions on 06/23/18-06/19/18 and 07/18/18- 08/04/18 for pneumonia, HIV/AIDS, severe oral candidiasis and diarrhea. CD4 count 11. Viral Load [id number]. HIV genotype 06/18/2018 with few resistance mutations. CMV negative. Patient remains noncompliant with his HAART therapy. Now admitted with: 1. Altered Mental Status/Acute encephalopathy: Seems back to baseline. 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 CT head shows no acute intracranial abnormality. + chronic maxillary and ethmoid sinusitis. 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 Crypto Ag is negative. TTE shows no valvular vegetation. 2. Oral Candidiasis: h/o resistant Carolann. improved. Continue Nystatin 3. HIV/AIDS: Last admission in June CD4 count 11. Viral load high. Remains non-compliant. Prognosis is poor. 4. Severe Malnutrition: related to HIV AIDS 5. Transaminitis: elevated liver enzymes from last admission. Abdominal ultrasound unremarkable. CT abdomen showing possible enteritis and somewhat inhomogenous liver. may be due to ischemic hepatitis, HIV/AIDS hepatopathy, infectious etiology with viral hepatitis, vs drug toxicity- GI following. Stable to improving. Evaluating for disseminated MAC, fungal/mycolytic blood cultures in process. HAV, HBV, HCV - nonreactive 6. New Fevers, hypotension and bradycardia: on empiric abx. TTE shows not valvular vegetation. 7. CAP vs PCP: Chest CT shows Bilateral pneumonia with findings most prominent in the left lower lobe as described. Bronchiectatic changes in left lower lobe noted also. Scattered blebs in the left lung. Continue IV Bactrim for PCP pneumonia. Plan: -continue nystatin swish and swallow -switch bactrim to PO -Discontinue Cefepime 1 gm q8 hrs -f/u fungal blood cultures, fungitell -f/u CMV PCR -prognosis remains extremely poor. Hospice would be appropriate patient can resume his PO flucanazole upon discharge [facility] M: [phone] O:[phone] Subjective Date of service: 09/12/18 Principal diagnosis: elevated LFTs, oral candidiasis Interval history: Patient seen and examined. Asleep, easily arousable. Non-conversant. No acute distress observed. Objective - Exam Narrative Exam: Constitutional: Asleep, easily arousable. no acute distress.. cachexia Head, Ears, Nose: Normocephalic, atraumatic. External ears, nose normal Eyes: Conjunctivae/corneas clear. No icterus. No ptosis. Neck: Supple, no meningeal signs Oral: dentition poor. , Oral thrush white plague on orophaynx tongue, inner and outer portion of lips. Cardiovascular: S1, S2 normal. Respiratory: Good air entry, clear to auscultation bilaterally GI: Soft, non-tender; bowel sounds normal. No peritoneal signs Musculoskeletal: No pedal edema, no cyanosis. Skin: No rash or abscess. Hem/Lymphatic: No palpable cervical or supraclavicular nodes. No lymphangitis Psych: Mood ok. Affect flat Neurological: Sleepy, easily arousable, mostly non- conversant - Constitutional Vitals: Vital Signs Temp Pulse Resp BP Pulse Ox 98.5 F 52 L 20 87/44 97 09/12/18 04:29 09/12/18 00:00 09/12/18 04:29 09/12/18 04:25 09/12/18 00:00 Temperature -Last 24 Hours Temperature 98.5 F Temperature 98.5 F Temperature 98.6 F Temperature 98.6 F Temperature 98.6 F Temperature 98.6 F Temperature 98.4 F - Labs CBC & Chem 7: 09/10/18 04:26 09/12/18 12:28
[2018-09-12] MEDS: PEPCID IV SCH ×2 (10:19→21:44)
[2018-09-12] MEDS: BABY ASPIRIN PO SCH (10:19)
[2018-09-12] MEDS: PROAMATINE PO SCH ×3 (10:19→16:25)
[2018-09-12] MEDS: SODIUM CHLORIDE FLUSH SYRINGE 10 ML IV SCH ×2 (10:24→21:46)
[2018-09-12] MEDS: LOVENOX SUB-Q SCH (10:24)
[2018-09-12] MEDS: NYSTATIN PO SCH ×3 (10:27→21:46)
--- NOTE | 2018-09-12 10:40 | Progress Note ---
Assessment and Plan no changes overnight TTE revealed ef ~35% not a candidate for bb/giancarlo at this point tele reveals sinus rhythm - hr 50s-70s - no avb or pause Still seems mildly volume depleted in the milieu of CAP/sepsis cont gentle IVF given grave prognosis, consider conservative approach from a cardiac perspective hospice has been recommended by ID discussed with Dr. Sanchez - Patient Problems (1) Altered mental status Current Visit: Yes Status: Acute (2) Anemia Current Visit: Yes Status: Acute (3) Dehydration Current Visit: Yes Status: Acute (4) Lactic acidosis Current Visit: Yes Status: Acute (5) Oral candidiasis Current Visit: Yes Status: Acute (6) Pancytopenia Current Visit: Yes Status: Acute (7) Pneumonia Current Visit: Yes Status: Acute Qualifiers: Pneumonia type: due to unspecified organism Laterality: left Lung location: lower lobe of lung Qualified Code(s): J18.1 - Lobar pneumonia, unspecified organism (8) Sinus bradycardia Current Visit: Yes Status: Acute (9) HIV (human immunodeficiency virus infection) Current Visit: Yes Status: Chronic (10) Severe malnutrition Current Visit: Yes Status: Chronic (11) Sepsis Current Visit: Yes Status: Suspected (12) Sepsis associated hypotension Current Visit: Yes Status: Suspected (13) Thrush, oral Current Visit: No Status: Acute Subjective Date of service: 09/12/18 Principal diagnosis: elevated LFTs, oral candidiasis Interval history: no complaints Objective Vital Signs Temp Pulse Pulse Resp BP BP Pulse Ox 09/12/18 10:16 70 20 85/45 98 09/12/18 10:12 98.7 F 09/12/18 04:29 98.5 F 20 09/12/18 04:25 98.5 F 20 87/44 09/12/18 00:00 98.6 F 52 L 20 69/50 97 09/11/18 23:52 98.6 F 20 69/40 09/11/18 22:28 41 L 09/11/18 22:00 98.6 F 73 20 100/64 100 09/11/18 20:43 55 L 16 96 09/11/18 19:27 98.6 F 20 100/64 09/11/18 16:18 98.4 F 46 L 18 92/54 98 09/11/18 13:00 54 L 89/55 96 - Physical Examination HEENT: Positive: PERRL Neck: Positive: neck supple, trachea midline Neuro: Positive: Grossly Intact Abdomen: Negative: Tender Skin: Negative: Rash, Wound Musculoskeletal: No Pain Extremities: Absent: edema - Imaging and Cardiology EKG: report reviewed, image reviewed Echo: pending - EKG Sinus rhythms and dysrhythmias: sinus rhythm
--- NOTE | 2018-09-12 11:49 | Progress Note ---
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 Improved HIV/AIDs: Low CD4 count Transaminitis: Recheck CMP Severe Malnutrition: Nutritional supplements Acute Renal Failure--Improved Oral Candidiasis Improved On Nystatin Non-adherence to medical therapy: counseling done Lactic acidosis, Resolved status post IV hydration Hyperammonemia-Lactulose ordered but patient refuses Recheck Ammonia level DVT prophylaxis Lovenox but pt is refusing, counseling done again Disposition Home versus NH Subjective Date of service: 09/12/18 Principal diagnosis: elevated LFTs, oral candidiasis Interval history: Symptomatically better Objective - Constitutional Vitals: Vital Signs - 12hr 09/11/18 09/12/18 09/12/18 23:52 00:00 04:25 Temperature 98.6 F 98.6 F 98.5 F Pulse Rate 52 L Pulse Rate [ Apical] Pulse Rate [ From Monitor] Respiratory 20 20 20 Rate Blood Pressure 69/40 87/44 Blood Pressure 69/50 [Right] O2 Sat by Pulse 97 Oximetry 09/12/18 09/12/18 09/12/18 04:29 10:00 10:12 Temperature 98.5 F 98.7 F Pulse Rate Pulse Rate [ 67 Apical] Pulse Rate [ 67 From Monitor] Respiratory 20 16 Rate Blood Pressure Blood Pressure [Right] O2 Sat by Pulse 96 Oximetry 09/12/18 10:16 Temperature Pulse Rate 70 Pulse Rate [ Apical] Pulse Rate [ From Monitor] Respiratory 20 Rate Blood Pressure 85/45 Blood Pressure [Right] O2 Sat by Pulse 98 Oximetry General appearance: Present: no acute distress, well-nourished - EENT Eyes: PERRL, EOM intact ENT: hearing intact, clear oral mucosa Ears: bilateral: normal - Neck Neck: supple, normal ROM - Respiratory Respiratory effort: normal Respiratory: bilateral: CTA - Breasts Breasts: normal - Cardiovascular Heart rate: 51 Rhythm: regular Heart Sounds: Present: S1 & S2. Absent: gallop, rub Extremities: no ischemia, pulses intact, No edema, normal color, Full ROM - Gastrointestinal General gastrointestinal: Present: soft, non-tender, non-distended, normal bowel sounds Rectal Exam: deferred - Genitourinary Male genitourinary: normal - Integumentary Integumentary: clear, warm, dry - Musculoskeletal Musculoskeletal: 1, strength equal bilaterally - Neurologic Neurologic: moves all extremities - Psychiatric Psychiatric: memory intact, appropriate mood/affect, intact judgment & insight - Allied health notes Allied health notes reviewed: nursing, case management - Labs CBC & Chem 7: 09/10/18 04:26 09/10/18 04:26 - Imaging and cardiology EKG: report reviewed
[2018-09-12] MEDS ORDERED: D5W 1,000 ML IV SCH (12:00)
[2018-09-12 13:03] LABS: Alanine Aminotransferase 77 units/L (7-56); Albumin 2.6 g/dL (3.9-5); BUN/Creatinine Ratio 5; Blood Urea Nitrogen 6 mg/dL (9-20); Calcium 7.4 mg/dL (8.4-10.2); Hemolysis Index 7
[2018-09-12] MEDS: BACTRIM DS PO SCH ×2 (16:26→21:46)
--- NOTE | 2018-09-12 17:26 | Progress Note ---
Assessment and Plan Patient sleeping at this time on room air. No acute respiratory distress.O2 saturation 96%. - Patient Problems (1) Pneumonia Current Visit: Yes Status: Acute Qualifiers: Pneumonia type: due to unspecified organism Laterality: left Lung location: lower lobe of lung Qualified Code(s): J18.1 - Lobar pneumonia, unspecified organism Plan to address problem: Patient is on Cefepime and bactium. (2) AIDS Current Visit: Yes Status: Chronic Plan to address problem: Management as per infectious diseases. (3) Altered mental status Current Visit: Yes Status: Acute Plan to address problem: Can not assess at this time. Patient sleeping. (4) Oral candidiasis Current Visit: Yes Status: Acute Plan to address problem: Patient getting nystatin. Subjective Date of service: 09/12/18 Principal diagnosis: elevated LFTs, oral candidiasis Interval history: Patient sleeping at this time on room air. No acute respiratory distress.O2 saturation 96%. Objective Vital Signs - 12hr 09/12/18 09/12/18 09/12/18 10:00 10:12 10:16 Temperature 98.7 F Pulse Rate 70 Pulse Rate [ 67 Apical] Pulse Rate [ 67 From Monitor] Respiratory 16 20 Rate Blood Pressure 85/45 O2 Sat by Pulse 96 98 Oximetry Constitutional: no acute distress, asleep Eyes: non-icteric ENT: oropharynx moist Neck: supple, no lymphadenopathy Ascultation: Bilateral: diminished breath sounds, other (Prolonged expiratory phase.) Cardiovascular: regular rate and rhythm Gastrointestinal: normoactive bowel sounds, soft, non-tender Integumentary: normal Extremities: no cyanosis, no edema Neurologic: other (Patient is sleeping.) Psychiatric: other (Patient sleeping.) CBC and BMP: 09/13/18 07:23 09/12/18 12:28 ABG, PT/INR, D-dimer: PT/INR, D-dimer PT 15.1 Sec. (12.2-14.9) H 09/11/18 05:22 INR 1.12 (0.87-1.13) 09/11/18 05:22 Abnormal lab findings: Abnormal Labs 09/04/18 09/04/18 09/04/18 21:00 21:00 22:32 WBC RBC 3.23 L Hgb 9.6 L Hct 28.9 L RDW 18.8 H Plt Count Lymph % (Auto) [place] % (Auto) 12.5 H Lymph # 0.7 L Seg Neutrophils % 72.4 H Seg Neuts % (Manual) Lymphocytes % (Manual) Monocytes % (Manual) Seg Neutrophils # Man Lymphocytes # (Manual) PT Sodium Potassium Chloride 109.9 H Carbon Dioxide 21 L BUN 31 H Creatinine Glucose Lactic Acid 2.40 H* Calcium 8.2 L Iron TIBC Ferritin AST 200 H ALT 136 H Alkaline Phosphatase 138 H Ammonia Total Protein Albumin 3.5 L 09/04/18 09/05/18 09/05/18 22:32 16:19 16:19 WBC RBC Hgb Hct RDW Plt Count Lymph % (Auto) [place] % (Auto) Lymph # Seg Neutrophils % Seg Neuts % (Manual) Lymphocytes % (Manual) Monocytes % (Manual) Seg Neutrophils # Man Lymphocytes # (Manual) PT Sodium Potassium Chloride 112.4 H Carbon Dioxide 19 L BUN Creatinine Glucose Lactic Acid Calcium 8.1 L Iron TIBC 223 L Ferritin AST 241 H ALT 138 H Alkaline Phosphatase Ammonia 64.0 H Total Protein Albumin 3.1 L 09/05/18 09/06/18 09/06/18 16:19 10:40 10:40 WBC 2.4 L RBC 2.67 L Hgb 7.7 L Hct 23.7 L RDW 18.7 H Plt Count 135 L Lymph % (Auto) 10.0 L [place] % (Auto) 8.4 H Lymph # 0.2 L Seg Neutrophils % 81.1 H Seg Neuts % (Manual) Lymphocytes % (Manual) Monocytes % (Manual) Seg Neutrophils # Man Lymphocytes # (Manual) PT Sodium Potassium Chloride 112.1 H Carbon Dioxide 19 L BUN Creatinine 0.7 L Glucose Lactic Acid Calcium 7.8 L Iron TIBC Ferritin 2880.0 H AST 263 H ALT 143 H Alkaline Phosphatase Ammonia Total Protein 6.1 L Albumin 2.8 L 09/07/18 09/07/18 09/08/18 10:38 10:38 06:39 WBC RBC 2.86 L Hgb 8.3 L Hct 25.2 L RDW 18.3 H Plt Count 123 L Lymph % (Auto) 6.1 L [place] % (Auto) Lymph # 0.3 L Seg Neutrophils % 87.3 H Seg Neuts % (Manual) Lymphocytes % (Manual) Monocytes % (Manual) Seg Neutrophils # Man Lymphocytes # (Manual) PT Sodium Potassium Chloride Carbon Dioxide BUN Creatinine Glucose Lactic Acid Calcium Iron 26 L TIBC 212 L Ferritin 2762.0 H AST ALT Alkaline Phosphatase Ammonia Total Protein Albumin 09/08/18 09/08/18 09/09/18 06:39 13:43 07:03 WBC RBC Hgb Hct RDW Plt Count Lymph % (Auto) [place] % (Auto) Lymph # Seg Neutrophils % Seg Neuts % (Manual) Lymphocytes % (Manual) Monocytes % (Manual) Seg Neutrophils # Man Lymphocytes # (Manual) PT Sodium Potassium 3.2 L 3.5 L Chloride 111.9 H 108.6 H Carbon Dioxide 13 L 15 L BUN 6 L 4 L Creatinine Glucose 118 H Lactic Acid Calcium 7.5 L 7.5 L Iron TIBC Ferritin AST 117 H 130 H ALT 87 H 86 H Alkaline Phosphatase Ammonia Total Protein 5.6 L 6.0 L Albumin 2.6 L 2.6 L 09/09/18 09/10/18 09/10/18 07:31 04:26 04:26 WBC 3.5 L 2.1 L RBC 2.82 L 3.10 L Hgb 8.2 L 9.0 L Hct 24.6 L 27.1 L RDW 18.8 H 18.6 H Plt Count 136 L 139 L Lymph % (Auto) [place] % (Auto) Lymph # Seg Neutrophils % Seg Neuts % (Manual) 77.0 H Lymphocytes % (Manual) 11.0 L Monocytes % (Manual) 11.0 H Seg Neutrophils # Man 1.6 L Lymphocytes # (Manual) 0.2 L PT Sodium Potassium Chloride 112.7 H Carbon Dioxide 14 L BUN 5 L Creatinine Glucose 109 H Lactic Acid Calcium 7.7 L Iron TIBC Ferritin AST 110 H ALT 76 H Alkaline Phosphatase Ammonia Total Protein 6.0 L Albumin 2.8 L 09/11/18 09/12/18 05:22 12:28 WBC RBC Hgb Hct RDW Plt Count Lymph % (Auto) [place] % (Auto) Lymph # Seg Neutrophils % Seg Neuts % (Manual) Lymphocytes % (Manual) Monocytes % (Manual) Seg Neutrophils # Man Lymphocytes # (Manual) PT 15.1 H Sodium 133 L Potassium 3.5 L Chloride 108.8 H Carbon Dioxide 14 L BUN 6 L Creatinine Glucose 123 H Lactic Acid Calcium 7.4 L Iron TIBC Ferritin AST 126 H ALT 77 H Alkaline Phosphatase Ammonia Total Protein 5.7 L Albumin 2.6 L
[2018-09-12] MEDS ORDERED: NACL 0.9% 250ML 250 ML IV ONE (23:26)
[2018-09-13 07:52] LABS: Hematocrit 25.5 % (35.5-45.6); Hemoglobin 8.2 gm/dl (11.8-15.2); Mean Corpuscular HGB Conc 32 % (32-34); Mean Corpuscular Volume 90 fl (84-94); Platelet Count 103 K/mm3 (140-440); Red Blood Count 2.82 M/mm3 (3.65-5.03); Red Cell Distribution Width 19.5 % (13.2-15.2)
[2018-09-13 09:58] LABS: Basophils % (Manual) 0 % (0.0-1.8); Eosinophils % (Manual) 0 % (0.0-4.3); Total Cells Counted 100
[2018-09-13 09:59] LABS: Anisocytosis 2+; Poikilocytosis 2+
[2018-09-13 10:00] LABS: Ovalocytes 2+; Platelet Estimate Consistent w Auto
--- NOTE | 2018-09-13 10:43 | Progress Note ---
Assessment and Plan Culture 09/08/2018 Blood culture: no growth 09/08/2018 Serum Cr Ag: negative 09/09/2018 Blood culture: no growth thus far Fungal blood culture: in process A/P: 42 year old male, know to ID from previous admissions on 06/23/18-06/19/18 and 07/18/18- 08/04/18 for pneumonia, HIV/AIDS, severe oral candidiasis and diarrhea. CD4 count 11. Viral Load [id number]. HIV genotype 06/18/2018 with few resistance mutations. CMV negative. Patient remains noncompliant with his HAART therapy. Now admitted with: 1. Altered Mental Status/Acute encephalopathy: Seems back to baseline. 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 CT head shows no acute intracranial abnormality. + chronic maxillary and ethmoid sinusitis. MRI images showing brain atrophy, no focal lesions to suggest toxoplasma, PML, ventriculitis, [employer] lymphoma or other space occupying lesions. Crypto Ag is negative. TTE shows no valvular vegetation, EF 30-35 %. -Fungitell: negative 2. Oral Candidiasis: h/o resistant Carolann. improved. Continue Nystatin 3. HIV/AIDS: Last admission in June CD4 count 11. Viral load high. Remains non-compliant. Prognosis is poor. 4. Severe Malnutrition: related to HIV AIDS 5. Transaminitis: elevated liver enzymes from last admission. Abdominal ultrasound unremarkable. CT abdomen showing possible enteritis and somewhat inhomogenous liver. may be due to ischemic hepatitis, HIV/AIDS hepatopathy, infectious etiology with viral hepatitis, vs drug toxicity- GI following. Stable to improving. Evaluating for disseminated MAC, fungal/mycolytic blood cultures in process. HAV, HBV, HCV - nonreactive 6. New Fevers : Improved. TTE shows not valvular vegetation. 7. CAP vs PCP: Chest CT shows Bilateral pneumonia with findings most prominent in the left lower lobe as described. Bronchiectatic changes in left lower lobe noted also. Scattered blebs in the left lung. Continue IV Bactrim for PCP pneumonia. 8. Leukopenia: New onset. noted hypotension. monitor closely. Plan: -continue nystatin swish and swallow -change Bactrim to 1 DS daily -f/u CMV PCR -AFB Culture sent [facility] M: [phone] O:[phone] Subjective Date of service: 09/13/18 Principal diagnosis: elevated LFTs, oral candidiasis Interval history: Patient seen and examined. Denies pain or SOB. No fevers. Mother at bedside. Nurses notes, labs and reports reviewed, discussed with patient and mother. Verbalized understanding. Objective - Exam Narrative Exam: Constitutional: Awake. Alert. no acute distress.. cachexia Head, Ears, Nose: Normocephalic, atraumatic. External ears, nose normal Eyes: Conjunctivae/corneas clear. No icterus. No ptosis. Neck: Supple, no meningeal signs Oral: dentition poor. , Oral thrush white plague on orophaynx tongue, inner and outer portion of lips. Cardiovascular: S1, S2 normal. Respiratory: Good air entry, clear to auscultation bilaterally GI: Soft, non-tender; bowel sounds normal. No peritoneal signs Musculoskeletal: No pedal edema, no cyanosis. Skin: No rash or abscess. Hem/Lymphatic: No palpable cervical or supraclavicular nodes. No lymphangitis Psych: Mood ok. Affect flat Neurological: Awake. Alert. no acute distress - Constitutional Vitals: Vital Signs Temp Pulse Resp BP Pulse Ox 97.9 F 60 18 74/42 97 09/13/18 08:48 09/13/18 08:48 09/13/18 08:48 09/13/18 08:48 09/13/18 08:48 Temperature -Last 24 Hours Temperature 97.9 F Temperature 98.5 F Temperature 98.4 F Temperature 98.2 F Temperature 98.0 F - Labs CBC & Chem 7: 09/13/18 07:23 09/12/18 12:28 Labs: Abnormal lab results 09/12/18 09/13/18 Range/Units 12:28 07:23 WBC 1.1 L* (4.5-11.0) K/mm3 RBC 2.82 L (3.65-5.03) M/mm3 Hgb 8.2 L (11.8-15.2) gm/dl Hct 25.5 L (35.5-45.6) % RDW 19.5 H (13.2-15.2) % Plt Count 103 L (140-440) K/mm3 Monocytes % (Manual) 18.0 H (0.0-7.3) % Seg Neutrophils # Man 0.6 L (1.8-7.7) K/mm3 Lymphocytes # (Manual) 0.3 L (1.2-5.4) K/mm3 Sodium 133 L (137-145) mmol/L Potassium 3.5 L (3.6-5.0) mmol/L Chloride 108.8 H (98-107) mmol/L Carbon Dioxide 14 L (22-30) mmol/L BUN 6 L (9-20) mg/dL Glucose 123 H (75-100) mg/dL Calcium 7.4 L (8.4-10.2) mg/dL AST 126 H (5-40) units/L ALT 77 H (7-56) units/L Total Protein 5.7 L (6.3-8.2) g/dL Albumin 2.6 L (3.9-5) g/dL
[2018-09-13] MEDS: PROAMATINE PO SCH ×3 (10:57→19:34)
[2018-09-13] MEDS: BABY ASPIRIN PO SCH (10:57)
[2018-09-13] MEDS: PEPCID IV SCH ×2 (10:58→21:38)
[2018-09-13] MEDS: NYSTATIN PO SCH ×3 (10:58→21:38)
[2018-09-13] MEDS: BACTRIM DS PO SCH (10:58)
[2018-09-13] MEDS: SODIUM CHLORIDE FLUSH SYRINGE 10 ML IV SCH ×2 (11:02→21:39)
[2018-09-13] MEDS: LOVENOX SUB-Q SCH (11:02)
--- NOTE | 2018-09-13 12:13 | Progress Note ---
Assessment and Plan no changes overnight TTE revealed ef ~35% not a candidate for bb/giancarlo at this point. cont IVF. tele reveals sinus rhythm - hr 60s - no avb or pause given grave prognosis, consider conservative approach from a cardiac perspective hospice has been recommended by ID The patient has been seen in conjunction with Dr. Suero who agrees with the assessment and plan of care. - Patient Problems (1) Sinus bradycardia Current Visit: Yes Status: Acute (2) HIV (human immunodeficiency virus infection) Current Visit: Yes Status: Chronic (3) AIDS Current Visit: Yes Status: Chronic (4) Altered mental status Current Visit: Yes Status: Acute (5) Sepsis Current Visit: Yes Status: Suspected (6) Sepsis associated hypotension Current Visit: Yes Status: Suspected (7) Pneumonia Current Visit: Yes Status: Acute Qualifiers: Pneumonia type: due to unspecified organism Laterality: left Lung location: lower lobe of lung Qualified Code(s): J18.1 - Lobar pneumonia, unspecified organism (8) Oral candidiasis Current Visit: Yes Status: Acute (9) Pancytopenia Current Visit: Yes Status: Acute (10) Transaminitis Current Visit: Yes Status: Acute (11) Severe malnutrition Current Visit: Yes Status: Chronic (12) Cardiomyopathy Current Visit: Yes Status: Chronic Subjective Date of service: 09/13/18 Principal diagnosis: elevated LFTs, oral candidiasis Interval history: pt resting in bed, no current complaints. in SR HR 60s on tele. Objective Last Vital Signs Temp 97.9 F 09/13/18 08:48 Pulse 60 09/13/18 08:48 Resp 18 09/13/18 08:48 BP 74/42 09/13/18 08:48 Pulse Ox 97 09/13/18 08:48 - Physical Examination General: No Apparent Distress HEENT: Positive: PERRL Neck: Positive: neck supple, trachea midline Cardiac: Positive: Reg Rate and Rhythm, S1/S2 Lungs: Positive: Decreased Breath Sounds Neuro: Positive: Grossly Intact Abdomen: Negative: Tender Skin: Negative: Rash, Wound Musculoskeletal: No Pain Extremities: Absent: edema - Labs and Meds Cardiac Enzymes 09/12/18 Range/Units 12:28 AST 126 H (5-40) units/L CBC 09/13/18 Range/Units 07:23 WBC 1.1 L* (4.5-11.0) K/mm3 RBC 2.82 L (3.65-5.03) M/mm3 Hgb 8.2 L (11.8-15.2) gm/dl Hct 25.5 L (35.5-45.6) % Plt Count 103 L (140-440) K/mm3 Comprehensive Metabolic Panel 09/12/18 Range/Units 12:28 Sodium 133 L (137-145) mmol/L Potassium 3.5 L (3.6-5.0) mmol/L Chloride 108.8 H (98-107) mmol/L Carbon Dioxide 14 L (22-30) mmol/L BUN 6 L (9-20) mg/dL Creatinine 1.1 (0.8-1.5) mg/dL Glucose 123 H (75-100) mg/dL Calcium 7.4 L (8.4-10.2) mg/dL AST 126 H (5-40) units/L ALT 77 H (7-56) units/L Alkaline Phosphatase 124 (35-129) units/L Total Protein 5.7 L (6.3-8.2) g/dL Albumin 2.6 L (3.9-5) g/dL - Imaging and Cardiology EKG: report reviewed Echo: report reviewed - Telemetry EKG Rhythm: Sinus Rhythm - EKG Sinus rhythms and dysrhythmias: sinus rhythm
--- NOTE | 2018-09-13 18:00 | Progress Note ---
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 Improved HIV/AIDs: Low CD4 count Transaminitis: Recheck CMP Severe Malnutrition: Nutritional supplements Acute Renal Failure--Improved Oral Candidiasis Improved On Nystatin Non-adherence to medical therapy: counseling done Lactic acidosis, Resolved status post IV hydration Hyperammonemia-Lactulose ordered but patient refuses Recheck Ammonia level DVT prophylaxis Lovenox but pt is refusing, counseling done again Disposition Home versus NH Subjective Date of service: 09/13/18 Principal diagnosis: elevated LFTs, oral candidiasis Interval history: Symptomatically better Objective - Constitutional Vitals: Vital Signs - 12hr 09/13/18 08:48 Temperature 97.9 F Pulse Rate 60 Respiratory 18 Rate Blood Pressure 74/42 O2 Sat by Pulse 97 Oximetry General appearance: Present: no acute distress, well-nourished - EENT Eyes: PERRL, EOM intact ENT: hearing intact, clear oral mucosa Ears: bilateral: normal - Neck Neck: supple, normal ROM - Respiratory Respiratory effort: normal Respiratory: bilateral: CTA - Breasts Breasts: normal - Cardiovascular Heart rate: 78 Rhythm: regular Heart Sounds: Present: S1 & S2. Absent: gallop, rub Extremities: no ischemia, pulses intact, No edema, normal color, Full ROM - Gastrointestinal General gastrointestinal: Present: soft, non-tender, non-distended, normal bowel sounds Rectal Exam: deferred - Genitourinary Male genitourinary: normal - Integumentary Integumentary: clear, warm, dry - Musculoskeletal Musculoskeletal: 1, strength equal bilaterally - Neurologic Neurologic: moves all extremities - Psychiatric Psychiatric: memory intact, appropriate mood/affect, intact judgment & insight - Allied health notes Allied health notes reviewed: nursing, case management - Labs CBC & Chem 7: 09/13/18 07:23 09/12/18 12:28 Labs: Abnormal lab results 09/13/18 Range/Units 07:23 WBC 1.1 L* (4.5-11.0) K/mm3 RBC 2.82 L (3.65-5.03) M/mm3 Hgb 8.2 L (11.8-15.2) gm/dl Hct 25.5 L (35.5-45.6) % RDW 19.5 H (13.2-15.2) % Plt Count 103 L (140-440) K/mm3 Monocytes % (Manual) 18.0 H (0.0-7.3) % Seg Neutrophils # Man 0.6 L (1.8-7.7) K/mm3 Lymphocytes # (Manual) 0.3 L (1.2-5.4) K/mm3
--- NOTE | 2018-09-13 22:15 | Progress Note ---
Assessment and Plan Patient awake, weak. On room air. No acute respiratory distress.O2 saturation 98%. - Patient Problems (1) Pneumonia Current Visit: Yes Status: Acute Qualifiers: Pneumonia type: due to unspecified organism Laterality: left Lung location: lower lobe of lung Qualified Code(s): J18.1 - Lobar pneumonia, unspecified organism Plan to address problem: Patient is on Cefepime and bactium. (2) AIDS Current Visit: Yes Status: Chronic Plan to address problem: Management as per infectious diseases. (3) Altered mental status Current Visit: Yes Status: Acute Plan to address problem: Can not assess at this time. Patient sleeping. (4) Oral candidiasis Current Visit: Yes Status: Acute Plan to address problem: Patient getting nystatin. Subjective Date of service: 09/13/18 Principal diagnosis: elevated LFTs, oral candidiasis Interval history: Patient awake, weak. On room air. No acute respiratory distress.O2 saturation 98%. Objective Vital Signs - 12hr 09/13/18 09/13/18 09/13/18 16:40 20:59 21:00 Temperature 98.0 F Pulse Rate 39 L 48 L Respiratory 18 16 Rate Blood Pressure 76/42 70/40 Blood Pressure [Right] O2 Sat by Pulse 99 97 Oximetry 09/13/18 21:12 Temperature 98.0 F Pulse Rate 47 L Respiratory 16 Rate Blood Pressure Blood Pressure 70/40 [Right] O2 Sat by Pulse 98 Oximetry Constitutional: no acute distress, alert, other (Weak) Eyes: non-icteric ENT: oropharynx moist Neck: supple, no lymphadenopathy Ascultation: Bilateral: diminished breath sounds, other (Prolonged expiratory phase.) Cardiovascular: regular rate and rhythm Gastrointestinal: normoactive bowel sounds, soft, non-tender Integumentary: normal Extremities: no cyanosis, no edema Neurologic: other (Patient is sleeping.) Psychiatric: other (Patient sleeping.) CBC and BMP: 09/13/18 07:23 09/12/18 12:28 ABG, PT/INR, D-dimer: PT/INR, D-dimer PT 15.1 Sec. (12.2-14.9) H 09/11/18 05:22 INR 1.12 (0.87-1.13) 09/11/18 05:22 Abnormal lab findings: Abnormal Labs 09/04/18 09/04/18 09/04/18 21:00 21:00 22:32 WBC RBC 3.23 L Hgb 9.6 L Hct 28.9 L RDW 18.8 H Plt Count Lymph % (Auto) [place] % (Auto) 12.5 H Lymph # 0.7 L Seg Neutrophils % 72.4 H Seg Neuts % (Manual) Lymphocytes % (Manual) Monocytes % (Manual) Seg Neutrophils # Man Lymphocytes # (Manual) PT Sodium Potassium Chloride 109.9 H Carbon Dioxide 21 L BUN 31 H Creatinine Glucose Lactic Acid 2.40 H* Calcium 8.2 L Iron TIBC Ferritin AST 200 H ALT 136 H Alkaline Phosphatase 138 H Ammonia Total Protein Albumin 3.5 L 09/04/18 09/05/18 09/05/18 22:32 16:19 16:19 WBC RBC Hgb Hct RDW Plt Count Lymph % (Auto) [place] % (Auto) Lymph # Seg Neutrophils % Seg Neuts % (Manual) Lymphocytes % (Manual) Monocytes % (Manual) Seg Neutrophils # Man Lymphocytes # (Manual) PT Sodium Potassium Chloride 112.4 H Carbon Dioxide 19 L BUN Creatinine Glucose Lactic Acid Calcium 8.1 L Iron TIBC 223 L Ferritin AST 241 H ALT 138 H Alkaline Phosphatase Ammonia 64.0 H Total Protein Albumin 3.1 L 09/05/18 09/06/18 09/06/18 16:19 10:40 10:40 WBC 2.4 L RBC 2.67 L Hgb 7.7 L Hct 23.7 L RDW 18.7 H Plt Count 135 L Lymph % (Auto) 10.0 L [place] % (Auto) 8.4 H Lymph # 0.2 L Seg Neutrophils % 81.1 H Seg Neuts % (Manual) Lymphocytes % (Manual) Monocytes % (Manual) Seg Neutrophils # Man Lymphocytes # (Manual) PT Sodium Potassium Chloride 112.1 H Carbon Dioxide 19 L BUN Creatinine 0.7 L Glucose Lactic Acid Calcium 7.8 L Iron TIBC Ferritin 2880.0 H AST 263 H ALT 143 H Alkaline Phosphatase Ammonia Total Protein 6.1 L Albumin 2.8 L 09/07/18 09/07/18 09/08/18 10:38 10:38 06:39 WBC RBC 2.86 L Hgb 8.3 L Hct 25.2 L RDW 18.3 H Plt Count 123 L Lymph % (Auto) 6.1 L [place] % (Auto) Lymph # 0.3 L Seg Neutrophils % 87.3 H Seg Neuts % (Manual) Lymphocytes % (Manual) Monocytes % (Manual) Seg Neutrophils # Man Lymphocytes # (Manual) PT Sodium Potassium Chloride Carbon Dioxide BUN Creatinine Glucose Lactic Acid Calcium Iron 26 L TIBC 212 L Ferritin 2762.0 H AST ALT Alkaline Phosphatase Ammonia Total Protein Albumin 09/08/18 09/08/18 09/09/18 06:39 13:43 07:03 WBC RBC Hgb Hct RDW Plt Count Lymph % (Auto) [place] % (Auto) Lymph # Seg Neutrophils % Seg Neuts % (Manual) Lymphocytes % (Manual) Monocytes % (Manual) Seg Neutrophils # Man Lymphocytes # (Manual) PT Sodium Potassium 3.2 L 3.5 L Chloride 111.9 H 108.6 H Carbon Dioxide 13 L 15 L BUN 6 L 4 L Creatinine Glucose 118 H Lactic Acid Calcium 7.5 L 7.5 L Iron TIBC Ferritin AST 117 H 130 H ALT 87 H 86 H Alkaline Phosphatase Ammonia Total Protein 5.6 L 6.0 L Albumin 2.6 L 2.6 L 09/09/18 09/10/18 09/10/18 07:31 04:26 04:26 WBC 3.5 L 2.1 L RBC 2.82 L 3.10 L Hgb 8.2 L 9.0 L Hct 24.6 L 27.1 L RDW 18.8 H 18.6 H Plt Count 136 L 139 L Lymph % (Auto) [place] % (Auto) Lymph # Seg Neutrophils % Seg Neuts % (Manual) 77.0 H Lymphocytes % (Manual) 11.0 L Monocytes % (Manual) 11.0 H Seg Neutrophils # Man 1.6 L Lymphocytes # (Manual) 0.2 L PT Sodium Potassium Chloride 112.7 H Carbon Dioxide 14 L BUN 5 L Creatinine Glucose 109 H Lactic Acid Calcium 7.7 L Iron TIBC Ferritin AST 110 H ALT 76 H Alkaline Phosphatase Ammonia Total Protein 6.0 L Albumin 2.8 L 09/11/18 09/12/18 09/13/18 05:22 12:28 07:23 WBC 1.1 L* RBC 2.82 L Hgb 8.2 L Hct 25.5 L RDW 19.5 H Plt Count 103 L Lymph % (Auto) [place] % (Auto) Lymph # Seg Neutrophils % Seg Neuts % (Manual) Lymphocytes % (Manual) Monocytes % (Manual) 18.0 H Seg Neutrophils # Man 0.6 L Lymphocytes # (Manual) 0.3 L PT 15.1 H Sodium 133 L Potassium 3.5 L Chloride 108.8 H Carbon Dioxide 14 L BUN 6 L Creatinine Glucose 123 H Lactic Acid Calcium 7.4 L Iron TIBC Ferritin AST 126 H ALT 77 H Alkaline Phosphatase Ammonia Total Protein 5.7 L Albumin 2.6 L
[2018-09-14] MEDS: BABY ASPIRIN PO SCH (09:18)
[2018-09-14] MEDS: NYSTATIN PO SCH ×3 (09:18→20:15)
[2018-09-14] MEDS: BACTRIM DS PO SCH (09:18)
[2018-09-14] MEDS: PROAMATINE PO SCH ×3 (09:18→17:03)
[2018-09-14] MEDS: LOVENOX SUB-Q SCH (09:18)
[2018-09-14] MEDS: SODIUM CHLORIDE FLUSH SYRINGE 10 ML IV SCH ×2 (09:19→21:43)
[2018-09-14] MEDS: PEPCID IV SCH ×2 (09:26→21:42)
--- NOTE | 2018-09-14 09:58 | Progress Note ---
Assessment and Plan Culture 09/08/2018 Blood culture: no growth 09/08/2018 Serum Cr Ag: negative 09/09/2018 Blood culture: no growth thus far Fungal blood culture: in process A/P: 42 year old male, know to ID from previous admissions on 06/23/18-06/19/18 and 07/18/18- 08/04/18 for pneumonia, HIV/AIDS, severe oral candidiasis and diarrhea. CD4 count 11. Viral Load [id number]. HIV genotype 06/18/2018 with few resistance mutations. CMV negative. Patient remains noncompliant with his HAART therapy. Now admitted with: 1. Altered Mental Status/Acute encephalopathy: Seems back to baseline. 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 CT head shows no acute intracranial abnormality. + chronic maxillary and ethmoid sinusitis. MRI images showing brain atrophy, no focal lesions to suggest toxoplasma, PML, ventriculitis, MOTOR BUILDER WINDER lymphoma or other space occupying lesions. Crypto Ag is negative. TTE shows no valvular vegetation, EF 30-35 %. -Fungitell: negative 2. Oral Candidiasis: h/o resistant Carolann. improved. Continue Nystatin 3. HIV/AIDS: Last admission in June CD4 count 11. Viral load high. Remains non-compliant. Prognosis is poor. 4. Severe Malnutrition: related to HIV AIDS 5. Transaminitis: elevated liver enzymes from last admission. Abdominal ultrasound unremarkable. CT abdomen showing possible enteritis and somewhat inhomogenous liver. may be due to ischemic hepatitis, HIV/AIDS hepatopathy, infectious etiology with viral hepatitis, vs drug toxicity- GI following. Stable to improving. Evaluating for disseminated MAC, fungal/mycolytic blood cultures in process. HAV, HBV, HCV - nonreactive 6. New Fevers : Improved. TTE shows not valvular vegetation. 7. CAP vs PCP: Chest CT shows Bilateral pneumonia with findings most prominent in the left lower lobe as described. Bronchiectatic changes in left lower lobe noted also. Scattered blebs in the left lung. Fungitell negative, so PCP quite less likely. bilateral ground glass opacities could be fluid given cardiomyopathy and low EF. 8. Leukopenia: ?Bactrim related. Plan: -continue nystatin swish and swallow -continue Bactrim to 1 DS daily -f/u CMV PCR -f/u AFB fungal blood culture -CBC ordered for tomorrow Dee Vyas, [employer] [facility] M: [phone] O:[phone] Subjective Date of service: 09/14/18 Principal diagnosis: elevated LFTs, oral candidiasis Interval history: Patient seen and examined. Denies pain or SOB. No fevers. States that he is feeling better today. Objective - Exam Narrative Exam: Constitutional: Awake. Alert. no acute distress.. cachexia Head, Ears, Nose: Normocephalic, atraumatic. External ears, nose normal Eyes: Conjunctivae/corneas clear. No icterus. No ptosis. Neck: Supple, no meningeal signs Oral: dentition poor. , Oral thrush improved Cardiovascular: S1, S2 normal. Respiratory: Good air entry, clear to auscultation bilaterally GI: Soft, non-tender; bowel sounds normal. No peritoneal signs Musculoskeletal: No pedal edema, no cyanosis. Skin: No rash or abscess. Hem/Lymphatic: No palpable cervical or supraclavicular nodes. No lymphangitis Psych: Mood ok. Affect flat Neurological: Awake. Alert. no acute distress - Constitutional Vitals: Vital Signs Temp Pulse Resp BP Pulse Ox 98.8 F 83 18 84/48 96 09/14/18 07:39 09/14/18 07:41 09/14/18 07:39 09/14/18 07:39 09/14/18 04:35 Temperature -Last 24 Hours Temperature 98.8 F Temperature 98.9 F Temperature 98.2 F Temperature 98.0 F Temperature 98.0 F - Labs CBC & Chem 7: 09/13/18 07:23 09/12/18 12:28 Labs: Abnormal lab results 09/13/18 Range/Units 07:23 Monocytes % (Manual) 18.0 H (0.0-7.3) % Seg Neutrophils # Man 0.6 L (1.8-7.7) K/mm3 Lymphocytes # (Manual) 0.3 L (1.2-5.4) K/mm3
--- NOTE | 2018-09-14 11:08 | Progress Note ---
Assessment and Plan no changes overnight TTE revealed ef ~35% not a candidate for bb/giancarlo at this point. cont IVF. tele reveals sinus rhythm - hr 70s - no avb or pause given grave prognosis, consider conservative approach from a cardiac perspective Pt for hospice versus NH/SNF Will follow on as needed basis. The patient has been seen in conjunction with Dr. Suero who agrees with the assessment and plan of care. - Patient Problems (1) Sinus bradycardia Current Visit: Yes Status: Acute (2) HIV (human immunodeficiency virus infection) Current Visit: Yes Status: Chronic (3) AIDS Current Visit: Yes Status: Chronic (4) Altered mental status Current Visit: Yes Status: Acute (5) Sepsis Current Visit: Yes Status: Suspected (6) Sepsis associated hypotension Current Visit: Yes Status: Suspected (7) Pneumonia Current Visit: Yes Status: Acute Qualifiers: Pneumonia type: due to unspecified organism Laterality: left Lung location: lower lobe of lung Qualified Code(s): J18.1 - Lobar pneumonia, unspecified organism (8) Oral candidiasis Current Visit: Yes Status: Acute (9) Pancytopenia Current Visit: Yes Status: Acute (10) Transaminitis Current Visit: Yes Status: Acute (11) Severe malnutrition Current Visit: Yes Status: Chronic (12) Cardiomyopathy Current Visit: Yes Status: Chronic Subjective Date of service: 09/14/18 Principal diagnosis: elevated LFTs, oral candidiasis Interval history: pt resting in bed, no current complaints. in SR HR 70s on tele. Objective Vital Signs Temp Pulse Pulse Resp BP BP Pulse Ox 09/14/18 07:41 83 09/14/18 07:39 98.8 F 18 84/48 09/14/18 04:37 98.9 F 09/14/18 04:35 71 16 74/41 96 09/14/18 00:05 98.2 F 57 L 16 70/41 99 09/13/18 22:00 41 L 09/13/18 21:12 98.0 F 47 L 16 70/40 98 09/13/18 21:00 48 L 97 09/13/18 20:59 16 70/40 09/13/18 20:15 41 L 09/13/18 16:40 98.0 F 39 L 18 76/42 99 - Physical Examination General: No Apparent Distress HEENT: Positive: PERRL Neck: Positive: neck supple, trachea midline Cardiac: Positive: Reg Rate and Rhythm, S1/S2 Lungs: Positive: Decreased Breath Sounds Neuro: Positive: Grossly Intact Abdomen: Negative: Tender Skin: Negative: Rash, Wound Musculoskeletal: No Pain Extremities: Absent: edema - Imaging and Cardiology EKG: report reviewed Echo: report reviewed - EKG Sinus rhythms and dysrhythmias: sinus rhythm
--- NOTE | 2018-09-14 16:28 | Progress Note ---
Assessment and Plan Assessment and plan: Patient is a 42 yo man with a history of HIV/AIDs and anemia who presented to [facility] with AMS on 09/04/18. Patient was just discharged from here on 08/04/2018 for sepsis, LLL, lingula pneumonia and severe oral candidiasis * CT chest wo contrast IMPRESSION: Bilateral pneumonia with findings most prominent in the left lower lobe as described. Bronchiectatic changes in left lower lobe noted also. Scattered blebs in the left lung.. * GB Ultrasound IMPRESSION: The gallbladder lumen is contracted. The common bile duct is normal measuring 2 mm. * CT head without contrast Impression: No acute intracranial abnormality, chronic maxillary and ethmoid sinusitis -Hypotension, acute on chronic hypotension, bp has been low since Jun 2018 (as far as our records go), so I don't believe the chronic hypotension is sepsis related, his effective circulatory volume is low due to his malnutrition from severe HIV/AIDs which causing the pancytopenia, severe malnutrition, oral thrush, etc... Cardiology and ID recommends Hospice, but patient refuses. Continue present management -AMS due to acute metabolic encephalopathy from FTT/malnutrition, improving: consulted Utility Division Project Manager, -HIV/AIDs with pancytopenia/bone marrow failure most likely: consulted ID -Worsening Transaminitis: consulted GI, cmp daily, reviewed GB ultrasound -AOCD: monitor cbc daily -Severe Malnutrition: consulted Utility Division Project Manager -Acute Renal Failure, vasomotor nephropathy, poa, Cr is 1.0, up from baseline of 0.5: repeat BMP in am -Oral Candidiasis, treated, tolerating a diet, will monitor, GI evaluated -Non-adherence to medical therapy: counseling done -Lactic acidosis, Resolved status post IV hydration -Metabolic acidosis: On IV fluid, will monitor bicarbonate level -Hyperammonemia-Lactulose ordered but patient refuses DVT prophylaxis with Lovenox but pt is refusing, counseling done again Disposition: continue inpatient care History Interval history: Patient was seen and examined. Follow-up on current diagnosis of hypotension. Overnight uneventful. Patient denies any chest pain, shortness breath, nausea/vomiting or severe headaches. Imaging, nursing note, chart, labs and old chart reviewed. Discussed with patient. Hospitalist Physical - Physical exam Narrative exam: Gen: cachetic, unkempt, NAD, Awake, Alert, Orientated x 3 HEENT: NCAT, EOMI, PERRL, OP dry and crusty, whitish Neck: supple, no adenopathy, no thyromegaly, no JVD CVS/Heart: RRR, normal S1S2, pulses present bilaterally Chest/Lungs: CTA B, Symmetrical chest expansion, good air entry bilaterally GI/Abdomen: soft, NTND, good bowel sounds, no guarding or rebound /Bladder: no suprapubic tenderness, no CVA or paraspinal tenderness Extermity/Skin: no c/c/e, no obvious rash MSK: FROM x 4 Neuro: CN 2-12 grossly intact, no new focal deficits Psych: calm - Constitutional Vitals: Temp Pulse Resp BP Pulse Ox 97.3 F L 88 16 83/54 91 09/14/18 12:54 09/14/18 12:52 09/14/18 12:52 09/14/18 12:52 09/14/18 12:52 General appearance: Present: no acute distress, well-nourished Results - Labs CBC & Chem 7: 09/13/18 07:23 09/12/18 12:28 Labs: Laboratory Last Values WBC 1.1 K/mm3 (4.5-11.0) L* 09/13/18 07:23 RBC 2.82 M/mm3 (3.65-5.03) L 09/13/18 07:23 Hgb 8.2 gm/dl (11.8-15.2) L 09/13/18 07:23 Hct 25.5 % (35.5-45.6) L 09/13/18 07:23 MCV 90 fl (84-94) 09/13/18 07:23 MCH 29 pg (28-32) 09/13/18 07:23 MCHC 32 % (32-34) 09/13/18 07:23 RDW 19.5 % (13.2-15.2) H 09/13/18 07:23 Plt Count 103 K/mm3 (140-440) L 09/13/18 07:23 Lymph % (Auto) 6.1 % (13.4-35.0) L 09/08/18 06:39 [place] % (Auto) Cosmetic Sales Assistant 09/13/18 07:23 Eos % (Auto) 0.0 % (0.0-4.3) 09/08/18 06:39 Baso % (Auto) 0.2 % (0.0-1.8) 09/08/18 06:39 Lymph # 0.3 K/mm3 (1.2-5.4) L 09/08/18 06:39 [place] # 0.3 K/mm3 (0.0-0.8) 09/08/18 06:39 Eos # 0.0 K/mm3 (0.0-0.4) 09/08/18 06:39 Baso # 0.0 K/mm3 (0.0-0.1) 09/08/18 06:39 Add Manual Diff Complete 09/13/18 07:23 Total Counted 100 09/13/18 07:23 Seg Neutrophils % 87.3 % (40.0-70.0) H 09/08/18 06:39 Seg Neuts % (Manual) 57.0 % (40.0-70.0) 09/13/18 07:23 Band Neutrophils % 0 % 09/13/18 07:23 Lymphocytes % (Manual) 25.0 % (13.4-35.0) 09/13/18 07:23 Reactive Lymphs % (Man) 0 % 09/13/18 07:23 Monocytes % (Manual) 18.0 % (0.0-7.3) H 09/13/18 07:23 Eosinophils % (Manual) 0 % (0.0-4.3) 09/13/18 07:23 Basophils % (Manual) 0 % (0.0-1.8) 09/13/18 07:23 Metamyelocytes % 0 % 09/13/18 07:23 Myelocytes % 0 % 09/13/18 07:23 Promyelocytes % 0 % 09/13/18 07:23 Blast Cells % 0 % 09/13/18 07:23 Nucleated RBC % Not Reportable 09/13/18 07:23 Seg Neutrophils # 4.5 K/mm3 (1.8-7.7) 09/08/18 06:39 Seg Neutrophils # Man 0.6 K/mm3 (1.8-7.7) L 09/13/18 07:23 Band Neutrophils # 0.0 K/mm3 09/13/18 07:23 Lymphocytes # (Manual) 0.3 K/mm3 (1.2-5.4) L 09/13/18 07:23 Abs React Lymphs (Man) 0.0 K/mm3 09/13/18 07:23 Monocytes # (Manual) 0.2 K/mm3 (0.0-0.8) 09/13/18 07:23 Eosinophils # (Manual) 0.0 K/mm3 (0.0-0.4) 09/13/18 07:23 Basophils # (Manual) 0.0 K/mm3 (0.0-0.1) 09/13/18 07:23 Metamyelocytes # 0.0 K/mm3 09/13/18 07:23 Myelocytes # 0.0 K/mm3 09/13/18 07:23 Promyelocytes # 0.0 K/mm3 09/13/18 07:23 Blast Cells # 0.0 K/mm3 09/13/18 07:23 WBC Morphology Not Reportable 09/13/18 07:23 Hypersegmented Neuts Not Reportable 09/13/18 07:23 Hyposegmented Neuts Not Reportable 09/13/18 07:23 Hypogranular Neuts Not Reportable 09/13/18 07:23 Smudge Cells Not Reportable 09/13/18 07:23 Toxic Granulation Not Reportable 09/13/18 07:23 Toxic Vacuolation Not Reportable 09/13/18 07:23 Dohle Bodies Not Reportable 09/13/18 07:23 Pelger-Huet Anomaly Not Reportable 09/13/18 07:23 Giovanni Rods Not Reportable 09/13/18 07:23 Platelet Estimate Consistent w auto 09/13/18 07:23 Clumped Platelets Not Reportable 09/13/18 07:23 Plt Clumps, EDTA Not Reportable 09/13/18 07:23 Large Platelets Not Reportable 09/13/18 07:23 Giant Platelets Not Reportable 09/13/18 07:23 Platelet Satelliting Not Reportable 09/13/18 07:23 Plt Morphology Comment Not Reportable 09/13/18 07:23 RBC Morphology Not Reportable 09/13/18 07:23 Dimorphic RBCs Not Reportable 09/13/18 07:23 Polychromasia Not Reportable 09/13/18 07:23 Hypochromasia Not Reportable 09/13/18 07:23 Poikilocytosis 2+ 09/13/18 07:23 Anisocytosis 2+ 09/13/18 07:23 Microcytosis Not Reportable 09/13/18 07:23 Macrocytosis Not Reportable 09/13/18 07:23 Spherocytes Not Reportable 09/13/18 07:23 Pappenheimer Bodies Not Reportable 09/13/18 07:23 Sickle Cells Not Reportable 09/13/18 07:23 Target Cells Not Reportable 09/13/18 07:23 Tear Drop Cells Not Reportable 09/13/18 07:23 Ovalocytes 2+ 09/13/18 07:23 Helmet Cells Not Reportable 09/13/18 07:23 Holbrook-Worth Bodies Not Reportable 09/13/18 07:23 Bessie Rings Not Reportable 09/13/18 07:23 Cinthya Cells Not Reportable 09/13/18 07:23 Bite Cells Not Reportable 09/13/18 07:23 Crenated Cell Not Reportable 09/13/18 07:23 Elliptocytes Not Reportable 09/13/18 07:23 Acanthocytes (Spur) Not Reportable 09/13/18 07:23 Rouleaux Not Reportable 09/13/18 07:23 Hemoglobin C Crystals Not Reportable 09/13/18 07:23 Schistocytes Not Reportable 09/13/18 07:23 Malaria parasites Not Reportable 09/13/18 07:23 Carlos A Bodies Not Reportable 09/13/18 07:23 Hem Pathologist Commnt No 09/13/18 07:23 PT 15.1 Sec. (12.2-14.9) H 09/11/18 05:22 INR 1.12 (0.87-1.13) 09/11/18 05:22 Sodium 133 mmol/L (137-145) L 09/12/18 12:28 Potassium 3.5 mmol/L (3.6-5.0) L 09/12/18 12:28 Chloride 108.8 mmol/L (98-107) H 09/12/18 12:28 Carbon Dioxide 14 mmol/L (22-30) L 09/12/18 12:28 Anion Gap 14 mmol/L 09/12/18 12:28 BUN 6 mg/dL (9-20) L 09/12/18 12:28 Creatinine 1.1 mg/dL (0.8-1.5) 09/12/18 12:28 Estimated GFR > 60 ml/min 09/12/18 12:28 BUN/Creatinine Ratio 5 % 09/12/18 12:28 Glucose 123 mg/dL (75-100) H 09/12/18 12:28 POC Glucose 91 (70-105) 09/09/18 07:18 Lactic Acid 1.30 mmol/L (0.7-2.0) 09/05/18 03:50 Calcium 7.4 mg/dL (8.4-10.2) L 09/12/18 12:28 Iron 26 ug/dL (49-181) L 09/07/18 10:38 TIBC 212 mcg/dL (250-450) L 09/07/18 10:38 Ferritin 2762.0 ng/mL (13.0-400.0) H 09/07/18 10:38 Total Bilirubin < 0.20 mg/dL (0.1-1.2) 09/12/18 12:28 Direct Bilirubin < 0.2 mg/dL (0-0.2) 09/08/18 13:43 Indirect Bilirubin 0.0 mg/dL 09/06/18 10:40 AST 126 units/L (5-40) H 09/12/18 12:28 ALT 77 units/L (7-56) H 09/12/18 12:28 Alkaline Phosphatase 124 units/L (35-129) 09/12/18 12:28 Ammonia 51.0 umol/L (25-60) 09/12/18 12:28 Total Creatine Kinase 101 units/L (55-170) 09/04/18 21:00 Troponin T < 0.010 ng/mL (0.00-0.029) 09/10/18 12:14 Total Protein 5.7 g/dL (6.3-8.2) L 09/12/18 12:28 Albumin 2.6 g/dL (3.9-5) L 09/12/18 12:28 Albumin/Globulin Ratio 0.8 % 09/12/18 12:28 TSH 0.960 mlU/mL (0.270-4.200) 09/04/18 21:00 Urine Color Yellow (Yellow) 09/04/18 23:30 Urine Turbidity Clear (Clear) 09/04/18 23:30 Urine pH 6.0 (5.0-7.0) 09/04/18 23:30 Ur Specific [place] 1.012 (1.003-1.030) 09/04/18 23:30 Urine Protein <15 mg/dl mg/dL (Negative) 09/04/18 23:30 Urine Glucose (UA) Neg mg/dL (Negative) 09/04/18 23:30 Urine Ketones Neg mg/dL (Negative) 09/04/18 23:30 Urine Blood Neg (Negative) 09/04/18 23:30 Urine Nitrite Neg (Negative) 09/04/18 23:30 Urine Bilirubin Neg (Negative) 09/04/18 23:30 Urine Urobilinogen < 2.0 mg/dL (<2.0) 09/04/18 23:30 Ur Leukocyte Esterase Neg (Negative) 09/04/18 23:30 Urine WBC (Auto) 1.0 /HPF (0.0-6.0) 09/04/18 23:30 Urine RBC (Auto) 2.0 /HPF (0.0-6.0) 09/04/18 23:30 Urine Bacteria (Auto) 1+ /HPF (Negative) 09/04/18 23:30 Urine Mucus Few /HPF 09/04/18 23:30 Urine Opiates Screen Presumptive negative 09/04/18 23:30 Urine Methadone Screen Presumptive negative 09/04/18 23:30 Ur Barbiturates Screen Presumptive negative 09/04/18 23:30 Ur Phencyclidine Scrn Presumptive negative 09/04/18 23:30 Ur Amphetamines Screen Presumptive negative 09/04/18 23:30 U Benzodiazepines Scrn Presumptive negative 09/04/18 23:30 Urine Cocaine Screen Presumptive negative 09/04/18 23:30 U Marijuana (THC) Screen Presumptive negative 09/04/18 23:30 Drugs of Abuse Note Disclamer 09/04/18 23:30 Plasma/Serum Alcohol < 0.01 % (0-0.07) 09/04/18 21:00 JAMEEL Screen Negative (Negative) 09/05/18 16:19 Sm ([place]) Antibody <1.0 AI (<1.0) 09/05/18 16:19 Mitochondria M2 Ab <=20.0 U (<=20.0) 09/05/18 16:19 Hepatitis A IgM Ab Non-reactive (NonReactive) 09/08/18 06:39 Hep Bs Antigen Non-reactive (Negative) 09/08/18 06:39 Hep B Core IgM Ab Non-reactive (NonReactive) 09/08/18 06:39 Hepatitis C Antibody Non-reactive (NonReactive) 09/08/18 06:39 Miscellaneous Test Flexitest 1 09/09/18 07:03 Active Medications - Current Medications Current Medications: Generic Name Dose Route Start Last Admin Trade Name Freq PRN Reason Stop Dose Admin Acetaminophen 650 mg 09/05/18 02:48 09/09/18 06:44 Tylenol PO 650 mg Q4H PRN Administration Pain MILD(1-3)/Fever >100.5/VILLAREAL Acetaminophen/Hydrocodone Bitart 1 each 09/05/18 02:48 [place] 5/325 PO Q4H PRN Pain, Moderate (4-6) Aspirin 81 mg 09/09/18 17:00 09/14/18 09:18 Baby Aspirin PO 81 mg QDAY GLEN Administration Enoxaparin Sodium 40 mg 09/05/18 10:00 09/14/18 09:18 Lovenox SUB-Q Not Given QDAY GLEN Famotidine 10 mg 09/05/18 10:00 09/14/18 09:26 Pepcid IV Not Given BID GLEN Sodium Chloride 1,000 mls @ 42 mls/hr 09/11/18 10:00 09/11/18 13:23 Nacl 0.9% 1000 Ml IV 42 mls/hr DIRECT GLEN Administration Midodrine 10 mg 09/05/18 19:00 09/14/18 12:24 Proamatine PO 10 mg TID@0800,1200,1600 GLEN Administration Nystatin 500,000 unit 09/10/18 20:00 09/14/18 15:08 Nystatin PO Not Given TID GLEN Ondansetron HCl 4 mg 09/05/18 02:48 09/10/18 13:06 Zofran IV 4 mg Q8H PRN Administration Nausea And Vomiting Sodium Chloride 10 ml 09/05/18 10:00 09/14/18 09:19 Sodium Chloride Flush Syringe 10 Ml IV 10 ml BID GLEN Administration Sodium Chloride 10 ml 09/05/18 02:48 Sodium Chloride Flush Syringe 10 Ml IV PRN PRN LINE FLUSH Trimethoprim/Sulfamethoxazole 1 each 09/14/18 10:00 09/14/18 09:18 Bactrim Ds PO 1 each DAILY GLEN Administration Nutrition/Malnutrition Assess - Dietary Evaluation Nutrition/Malnutrition Findings: Nutrition Notes Start: 09/06/18 15:57 Freq: Status: Active Protocol: Document 09/14/18 15:00 LM (Rec: 09/14/18 15:07 LM [id number]) Co-Sign 09/14/18 15:00 LP Nutrition Notes Initial or Follow up Reassessment Other Pertinent Diagnosis HIV/AIDS, encephalopathy, noncompliance Labs/Tests Reviewed Pertinent Medications Reviewed Height 5 ft 3 in Weight 46 kg [place] Body Weight (kg) 56.36 BMI 17.9 Subjective/Other Information Pt was reluctant to answer questions. Pt stated he has no appetite and did not eat breakfast. Patient stated he was not drinking ONS. Pt not started on appetite stimulant. Hospice being considered for hospice. Percent of energy/protein needs met: 0%/0% Burn Absent Trauma Absent #1 Nutrition Diagnosis Malnutrition Diagnosis Progress(for reassessment Continues documentation) Is patient on ventilator? No Is Patient Ambulatory and/or Out of Bed No REE-([place]-St. Jeor-confined to bed) 1509.636 Calculation Used for Recommendations [place]-St Jeor Additional Notes Pro needs 1.2-1.5g/k-69 g /day Fluid needs 1ml/kcal Nutrition Intervention Change Diet Order: Continue current Add Supplement/Snack (indicate name/kcal D/C /protein ) Goal #1 Meet at least 75% of calorie and protein needs Anticipated Discharge Needs: Regular diet Follow-Up By: 09/17/18 Additional Comments F/U: intakes
--- NOTE | 2018-09-14 19:43 | Progress Note ---
Assessment and Plan Patient awake, weak. On room air. No acute respiratory distress.O2 saturation 100%. - Patient Problems (1) Pneumonia Current Visit: Yes Status: Acute Qualifiers: Pneumonia type: due to unspecified organism Laterality: left Lung location: lower lobe of lung Qualified Code(s): J18.1 - Lobar pneumonia, unspecified organism Plan to address problem: Patient is on Cefepime and bactium. (2) AIDS Current Visit: Yes Status: Chronic Plan to address problem: Management as per infectious diseases. (3) Altered mental status Current Visit: Yes Status: Acute Plan to address problem: Management as per primary care and neurology. (4) Oral candidiasis Current Visit: Yes Status: Acute Plan to address problem: Patient getting nystatin. Subjective Date of service: 09/14/18 Principal diagnosis: elevated LFTs, oral candidiasis Interval history: Patient awake, weak. On room air. No acute respiratory distress.O2 saturation 100%. Objective Vital Signs - 12hr 09/14/18 09/14/18 09/14/18 07:41 12:52 12:54 Temperature 97.3 F L Pulse Rate 83 88 Respiratory 16 Rate Blood Pressure 83/54 O2 Sat by Pulse 91 Oximetry 09/14/18 09/14/18 18:18 18:20 Temperature 97.5 F L Pulse Rate 59 L Respiratory 20 Rate Blood Pressure 77/49 O2 Sat by Pulse 100 Oximetry Constitutional: no acute distress, alert, other (Weak) Eyes: non-icteric ENT: oropharynx moist Neck: supple, no lymphadenopathy Ascultation: Bilateral: diminished breath sounds, other (Prolonged expiratory phase.) Cardiovascular: regular rate and rhythm Gastrointestinal: normoactive bowel sounds, soft, non-tender Integumentary: normal Extremities: no cyanosis, no edema Neurologic: other (Patient is sleeping.) Psychiatric: other (Patient sleeping.) CBC and BMP: 09/13/18 07:23 09/12/18 12:28 ABG, PT/INR, D-dimer: PT/INR, D-dimer PT 15.1 Sec. (12.2-14.9) H 09/11/18 05:22 INR 1.12 (0.87-1.13) 09/11/18 05:22 Abnormal lab findings: Abnormal Labs 09/04/18 09/04/18 09/04/18 21:00 21:00 22:32 WBC RBC 3.23 L Hgb 9.6 L Hct 28.9 L RDW 18.8 H Plt Count Lymph % (Auto) [place] % (Auto) 12.5 H Lymph # 0.7 L Seg Neutrophils % 72.4 H Seg Neuts % (Manual) Lymphocytes % (Manual) Monocytes % (Manual) Seg Neutrophils # Man Lymphocytes # (Manual) PT Sodium Potassium Chloride 109.9 H Carbon Dioxide 21 L BUN 31 H Creatinine Glucose Lactic Acid 2.40 H* Calcium 8.2 L Iron TIBC Ferritin AST 200 H ALT 136 H Alkaline Phosphatase 138 H Ammonia Total Protein Albumin 3.5 L 09/04/18 09/05/18 09/05/18 22:32 16:19 16:19 WBC RBC Hgb Hct RDW Plt Count Lymph % (Auto) [place] % (Auto) Lymph # Seg Neutrophils % Seg Neuts % (Manual) Lymphocytes % (Manual) Monocytes % (Manual) Seg Neutrophils # Man Lymphocytes # (Manual) PT Sodium Potassium Chloride 112.4 H Carbon Dioxide 19 L BUN Creatinine Glucose Lactic Acid Calcium 8.1 L Iron TIBC 223 L Ferritin AST 241 H ALT 138 H Alkaline Phosphatase Ammonia 64.0 H Total Protein Albumin 3.1 L 09/05/18 09/06/18 09/06/18 16:19 10:40 10:40 WBC 2.4 L RBC 2.67 L Hgb 7.7 L Hct 23.7 L RDW 18.7 H Plt Count 135 L Lymph % (Auto) 10.0 L [place] % (Auto) 8.4 H Lymph # 0.2 L Seg Neutrophils % 81.1 H Seg Neuts % (Manual) Lymphocytes % (Manual) Monocytes % (Manual) Seg Neutrophils # Man Lymphocytes # (Manual) PT Sodium Potassium Chloride 112.1 H Carbon Dioxide 19 L BUN Creatinine 0.7 L Glucose Lactic Acid Calcium 7.8 L Iron TIBC Ferritin 2880.0 H AST 263 H ALT 143 H Alkaline Phosphatase Ammonia Total Protein 6.1 L Albumin 2.8 L 09/07/18 09/07/18 09/08/18 10:38 10:38 06:39 WBC RBC 2.86 L Hgb 8.3 L Hct 25.2 L RDW 18.3 H Plt Count 123 L Lymph % (Auto) 6.1 L [place] % (Auto) Lymph # 0.3 L Seg Neutrophils % 87.3 H Seg Neuts % (Manual) Lymphocytes % (Manual) Monocytes % (Manual) Seg Neutrophils # Man Lymphocytes # (Manual) PT Sodium Potassium Chloride Carbon Dioxide BUN Creatinine Glucose Lactic Acid Calcium Iron 26 L TIBC 212 L Ferritin 2762.0 H AST ALT Alkaline Phosphatase Ammonia Total Protein Albumin 09/08/18 09/08/18 09/09/18 06:39 13:43 07:03 WBC RBC Hgb Hct RDW Plt Count Lymph % (Auto) [place] % (Auto) Lymph # Seg Neutrophils % Seg Neuts % (Manual) Lymphocytes % (Manual) Monocytes % (Manual) Seg Neutrophils # Man Lymphocytes # (Manual) PT Sodium Potassium 3.2 L 3.5 L Chloride 111.9 H 108.6 H Carbon Dioxide 13 L 15 L BUN 6 L 4 L Creatinine Glucose 118 H Lactic Acid Calcium 7.5 L 7.5 L Iron TIBC Ferritin AST 117 H 130 H ALT 87 H 86 H Alkaline Phosphatase Ammonia Total Protein 5.6 L 6.0 L Albumin 2.6 L 2.6 L 09/09/18 09/10/18 09/10/18 07:31 04:26 04:26 WBC 3.5 L 2.1 L RBC 2.82 L 3.10 L Hgb 8.2 L 9.0 L Hct 24.6 L 27.1 L RDW 18.8 H 18.6 H Plt Count 136 L 139 L Lymph % (Auto) [place] % (Auto) Lymph # Seg Neutrophils % Seg Neuts % (Manual) 77.0 H Lymphocytes % (Manual) 11.0 L Monocytes % (Manual) 11.0 H Seg Neutrophils # Man 1.6 L Lymphocytes # (Manual) 0.2 L PT Sodium Potassium Chloride 112.7 H Carbon Dioxide 14 L BUN 5 L Creatinine Glucose 109 H Lactic Acid Calcium 7.7 L Iron TIBC Ferritin AST 110 H ALT 76 H Alkaline Phosphatase Ammonia Total Protein 6.0 L Albumin 2.8 L 09/11/18 09/12/18 09/13/18 05:22 12:28 07:23 WBC 1.1 L* RBC 2.82 L Hgb 8.2 L Hct 25.5 L RDW 19.5 H Plt Count 103 L Lymph % (Auto) [place] % (Auto) Lymph # Seg Neutrophils % Seg Neuts % (Manual) Lymphocytes % (Manual) Monocytes % (Manual) 18.0 H Seg Neutrophils # Man 0.6 L Lymphocytes # (Manual) 0.3 L PT 15.1 H Sodium 133 L Potassium 3.5 L Chloride 108.8 H Carbon Dioxide 14 L BUN 6 L Creatinine Glucose 123 H Lactic Acid Calcium 7.4 L Iron TIBC Ferritin AST 126 H ALT 77 H Alkaline Phosphatase Ammonia Total Protein 5.7 L Albumin 2.6 L
[2018-09-15 01:23] LABS: Hematocrit 29.5 % (35.5-45.6); Hemoglobin 9.7 gm/dl (11.8-15.2); Mean Corpuscular HGB Conc 33 % (32-34); Mean Corpuscular Volume 87 fl (84-94); Red Blood Count 3.38 M/mm3 (3.65-5.03)
[2018-09-15 01:42] LABS: Platelet Count 95 K/mm3 (140-440)
[2018-09-15 02:13] LABS: Total Cells Counted 100
[2018-09-15 02:14] LABS: Basophils % (Manual) 0 % (0.0-1.8); Eosinophils % (Manual) 0 % (0.0-4.3); RBC Morphology Normal
[2018-09-15 05:35] LABS: BUN/Creatinine Ratio 12; Blood Urea Nitrogen 15 mg/dL (9-20); Calcium 8.6 mg/dL (8.4-10.2); Hemolysis Index 7
[2018-09-15] MEDS: PROAMATINE PO SCH ×3 (08:39→17:04)
[2018-09-15] MEDS: NYSTATIN PO SCH ×3 (08:39→20:54)
[2018-09-15] MEDS: BACTRIM DS PO SCH (10:05)
[2018-09-15] MEDS: PEPCID IV SCH ×2 (10:05→23:16)
[2018-09-15] MEDS: BABY ASPIRIN PO SCH (10:05)
[2018-09-15] MEDS: LOVENOX SUB-Q SCH (10:05)
[2018-09-15] MEDS: SODIUM CHLORIDE FLUSH SYRINGE 10 ML IV SCH ×2 (10:06→23:16)
[2018-09-15] MEDS: NACL 0.9% 1000 ML 1,000 ML IV SCH ×2 (10:13→17:06)
--- NOTE | 2018-09-15 11:12 | Progress Note ---
Assessment and Plan Culture 09/08/2018 Blood culture: no growth 09/08/2018 Serum Cr Ag: negative 09/09/2018 Blood culture: no growth thus far Fungal blood culture: in process A/P: 42 year old male, know to ID from previous admissions on 06/23/18-06/19/18 and 07/18/18- 08/04/18 for pneumonia, HIV/AIDS, severe oral candidiasis and diarrhea. CD4 count 11. Viral Load [id number]. HIV genotype 06/18/2018 with few resistance mutations. CMV negative. Patient remains noncompliant with his HAART therapy. Now admitted with: 1. Altered Mental Status/Acute encephalopathy: Back to baseline. 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 CT head shows no acute intracranial abnormality. + chronic maxillary and ethmoid sinusitis. MRI images showing brain atrophy, no focal lesions to suggest toxoplasma, PML, ventriculitis, REPRODUCTIVE ENDOCRINOLOGIST lymphoma or other space occupying lesions. Crypto Ag is negative. TTE shows no valvular vegetation, EF 30-35 %. -Fungitell: negative -CMV DNR - <200 2. Oral Candidiasis: h/o resistant Carolann. improved. Continue Nystatin 3. HIV/AIDS: Last admission in June CD4 count 11. Viral load high. Remains non-compliant. Prognosis is poor. 4. Severe Malnutrition: related to HIV AIDS 5. Transaminitis: elevated liver enzymes from last admission. Abdominal ultrasound unremarkable. CT abdomen showing possible enteritis and somewhat inhomogenous liver. may be due to ischemic hepatitis, HIV/AIDS hepatopathy, infectious etiology with viral hepatitis, vs drug toxicity- GI following. Stable to improving. Evaluating for disseminated MAC, fungal/mycolytic blood cultures in process. HAV, HBV, HCV - nonreactive 6. New Fevers : Improved. 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 CAP vs PCP: Chest CT shows Bilateral pneumonia with findings most prominent in the left lower lobe as described. Bronchiectatic changes in left lower lobe noted also. Scattered blebs in the left lung. Fungitell negative, so PCP quite less likely. bilateral ground glass opacities could be fluid given cardiomyopathy and low EF. 8. Leukopenia: ?Bactrim related. Plan: -continue nystatin swish and swallow -continue Bactrim to 1 DS daily -f/u AFB fungal blood culture Dr. Ryder discussed hospice option with Mom. Coming to the hospital tomorrow for family meeting. [facility] M: [phone] O:[phone] Subjective Date of service: 09/15/18 Principal diagnosis: elevated LFTs, oral candidiasis Interval history: Patient seen and examined. Denies pain or SOB. No fevers. States that he is feeling better today. Objective - Exam Narrative Exam: Constitutional: Awake. Alert. no acute distress.. cachexia Head, Ears, Nose: Normocephalic, atraumatic. External ears, nose normal Eyes: Conjunctivae/corneas clear. No icterus. No ptosis. Neck: Supple, no meningeal signs Oral: dentition poor. , Oral thrush improved Cardiovascular: S1, S2 normal. Respiratory: Good air entry, clear to auscultation bilaterally GI: Soft, non-tender; bowel sounds normal. No peritoneal signs Musculoskeletal: No pedal edema, no cyanosis. Skin: No rash or abscess. Hem/Lymphatic: No palpable cervical or supraclavicular nodes. No lymphangitis Psych: Mood ok. Affect flat Neurological: Awake. Alert. no acute distress - Constitutional Vitals: Vital Signs Temp Pulse Resp BP Pulse Ox 97.9 F 68 14 79/48 100 09/15/18 09:19 09/15/18 08:40 09/15/18 09:19 09/15/18 09:19 09/15/18 08:40 Temperature -Last 24 Hours Temperature 97.9 F Temperature 97.6 F Temperature 97.7 F Temperature 97.4 F Temperature 97.5 F Temperature 97.3 F - Labs CBC & Chem 7: 09/15/18 00:51 09/15/18 04:31 Labs: Abnormal lab results 09/15/18 09/15/18 Range/Units 00:51 04:31 WBC 1.2 L* (4.5-11.0) K/mm3 RBC 3.38 L (3.65-5.03) M/mm3 Hgb 9.7 L (11.8-15.2) gm/dl Hct 29.5 L (35.5-45.6) % RDW 19.0 H (13.2-15.2) % Plt Count 95 L (140-440) K/mm3 Monocytes % (Manual) 24.0 H (0.0-7.3) % Seg Neutrophils # Man 0.6 L (1.8-7.7) K/mm3 Lymphocytes # (Manual) 0.3 L (1.2-5.4) K/mm3 Chloride 112.0 H (98-107) mmol/L Carbon Dioxide 13 L (22-30) mmol/L Glucose 65 L (75-100) mg/dL
--- NOTE | 2018-09-15 13:39 | Event Note ---
Date: 09/15/18 Called patient's mother on the phone, left voicemail to call us back. Would like to discuss hospice since prognosis remains poor.
--- NOTE | 2018-09-15 17:49 | Progress Note ---
Assessment and Plan Assessment and plan: Patient is a 42 yo man with a history of HIV/AIDs and anemia who presented to [facility] with AMS on 09/04/18. Patient was just discharged from here on 08/04/2018 for sepsis, LLL, lingula pneumonia and severe oral candidiasis * CT chest wo contrast IMPRESSION: Bilateral pneumonia with findings most prominent in the left lower lobe as described. Bronchiectatic changes in left lower lobe noted also. Scattered blebs in the left lung.. * GB Ultrasound IMPRESSION: The gallbladder lumen is contracted. The common bile duct is normal measuring 2 mm. * CT head without contrast Impression: No acute intracranial abnormality, chronic maxillary and ethmoid sinusitis -Hypotension, acute on chronic hypotension, bp has been low since Jun 2018 (as far as our records go), so I don't believe the chronic hypotension is sepsis related, his effective circulatory volume is low due to his malnutrition from severe HIV/AIDs which causing the pancytopenia, severe malnutrition, oral thrush, etc... Cardiology and ID recommends Hospice, but patient refuses. 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: consulted ID -Worsening Transaminitis: consulted GI, cmp daily, reviewed GB ultrasound -AOCD: monitor cbc daily -Severe Malnutrition: consulted [employer] -Acute Renal Failure, vasomotor nephropathy, poa, Cr is 1.0, up from baseline of 0.5: repeat BMP in am -Oral Candidiasis, treated, tolerating a diet, will monitor, GI evaluated -Non-adherence to medical therapy: counseling done -Lactic acidosis, Resolved status post IV hydration -Metabolic acidosis: On IV fluid, will monitor bicarbonate level -Hyperammonemia-Lactulose ordered but patient refuses DVT prophylaxis with Lovenox but pt is refusing, counseling done again Disposition: continue inpatient care IV line out and Patient refusing new iv line, I had to speak with him and he agree then I gave him a bolus of NSS. We spoke about hospice and compliance. He denies SI/HI but would not answered about being depressed. I will consult Mental health for possible depression. Meeting with mother tomorrow. History Interval history: Patient was seen and examined. Follow-up on current diagnosis of hypotension. Overnight uneventful. Patient denies any chest pain, shortness breath, nausea/vomiting or severe headaches. Imaging, nursing note, chart, labs and old chart reviewed. Discussed with patient. Hospitalist Physical - Physical exam Narrative exam: Gen: cachetic, unkempt, NAD, Awake, Alert, Orientated x 3 HEENT: NCAT, EOMI, PERRL, OP dry and crusty, whitish Neck: supple, no adenopathy, no thyromegaly, no JVD CVS/Heart: RRR, normal S1S2, pulses present bilaterally Chest/Lungs: CTA B, Symmetrical chest expansion, good air entry bilaterally GI/Abdomen: soft, NTND, good bowel sounds, no guarding or rebound /Bladder: no suprapubic tenderness, no CVA or paraspinal tenderness Extermity/Skin: no c/c/e, no obvious rash MSK: FROM x 4 Neuro: CN 2-12 grossly intact, no new focal deficits Psych: calm - Constitutional Vitals: Temp Pulse Resp BP Pulse Ox 97.7 F 43 L 12 84/51 100 09/15/18 16:38 09/15/18 16:38 09/15/18 16:38 09/15/18 16:38 09/15/18 16:38 General appearance: Present: no acute distress, well-nourished Results - Labs CBC & Chem 7: 09/15/18 00:51 09/15/18 04:31 Labs: Laboratory Last Values WBC 1.2 K/mm3 (4.5-11.0) L* 09/15/18 00:51 RBC 3.38 M/mm3 (3.65-5.03) L 09/15/18 00:51 Hgb 9.7 gm/dl (11.8-15.2) L 09/15/18 00:51 Hct 29.5 % (35.5-45.6) L 09/15/18 00:51 MCV 87 fl (84-94) 09/15/18 00:51 MCH 29 pg (28-32) 09/15/18 00:51 MCHC 33 % (32-34) 09/15/18 00:51 RDW 19.0 % (13.2-15.2) H 09/15/18 00:51 Plt Count 95 K/mm3 (140-440) L 09/15/18 00:51 Lymph % (Auto) 6.1 % (13.4-35.0) L 09/08/18 06:39 [place] % (Auto) Theology Professor 09/15/18 00:51 Eos % (Auto) 0.0 % (0.0-4.3) 09/08/18 06:39 Baso % (Auto) 0.2 % (0.0-1.8) 09/08/18 06:39 Lymph # 0.3 K/mm3 (1.2-5.4) L 09/08/18 06:39 [place] # 0.3 K/mm3 (0.0-0.8) 09/08/18 06:39 Eos # 0.0 K/mm3 (0.0-0.4) 09/08/18 06:39 Baso # 0.0 K/mm3 (0.0-0.1) 09/08/18 06:39 Add Manual Diff Complete 09/15/18 00:51 Total Counted 100 09/15/18 00:51 Seg Neutrophils % 87.3 % (40.0-70.0) H 09/08/18 06:39 Seg Neuts % (Manual) 50.0 % (40.0-70.0) 09/15/18 00:51 Band Neutrophils % 0 % 09/15/18 00:51 Lymphocytes % (Manual) 26.0 % (13.4-35.0) 09/15/18 00:51 Reactive Lymphs % (Man) 0 % 09/15/18 00:51 Monocytes % (Manual) 24.0 % (0.0-7.3) H 09/15/18 00:51 Eosinophils % (Manual) 0 % (0.0-4.3) 09/15/18 00:51 Basophils % (Manual) 0 % (0.0-1.8) 09/15/18 00:51 Metamyelocytes % 0 % 09/15/18 00:51 Myelocytes % 0 % 09/15/18 00:51 Promyelocytes % 0 % 09/15/18 00:51 Blast Cells % 0 % 09/15/18 00:51 Nucleated RBC % Not Reportable 09/15/18 00:51 Seg Neutrophils # 4.5 K/mm3 (1.8-7.7) 09/08/18 06:39 Seg Neutrophils # Man 0.6 K/mm3 (1.8-7.7) L 09/15/18 00:51 Band Neutrophils # 0.0 K/mm3 09/15/18 00:51 Lymphocytes # (Manual) 0.3 K/mm3 (1.2-5.4) L 09/15/18 00:51 Abs React Lymphs (Man) 0.0 K/mm3 09/15/18 00:51 Monocytes # (Manual) 0.3 K/mm3 (0.0-0.8) 09/15/18 00:51 Eosinophils # (Manual) 0.0 K/mm3 (0.0-0.4) 09/15/18 00:51 Basophils # (Manual) 0.0 K/mm3 (0.0-0.1) 09/15/18 00:51 Metamyelocytes # 0.0 K/mm3 09/15/18 00:51 Myelocytes # 0.0 K/mm3 09/15/18 00:51 Promyelocytes # 0.0 K/mm3 09/15/18 00:51 Blast Cells # 0.0 K/mm3 09/15/18 00:51 WBC Morphology Not Reportable 09/15/18 00:51 Hypersegmented Neuts Not Reportable 09/15/18 00:51 Hyposegmented Neuts Not Reportable 09/15/18 00:51 Hypogranular Neuts Not Reportable 09/15/18 00:51 Smudge Cells Not Reportable 09/15/18 00:51 Toxic Granulation Not Reportable 09/15/18 00:51 Toxic Vacuolation Not Reportable 09/15/18 00:51 Dohle Bodies Not Reportable 09/15/18 00:51 Pelger-Huet Anomaly Not Reportable 09/15/18 00:51 Giovanni Rods Not Reportable 09/15/18 00:51 Platelet Estimate Not Reportable 09/15/18 00:51 Clumped Platelets Not Reportable 09/15/18 00:51 Plt Clumps, EDTA Not Reportable 09/15/18 00:51 Large Platelets Not Reportable 09/15/18 00:51 Giant Platelets Not Reportable 09/15/18 00:51 Platelet Satelliting Not Reportable 09/15/18 00:51 Plt Morphology Comment Not Reportable 09/15/18 00:51 RBC Morphology Normal 09/15/18 00:51 Dimorphic RBCs Not Reportable 09/15/18 00:51 Polychromasia Not Reportable 09/15/18 00:51 Hypochromasia Not Reportable 09/15/18 00:51 Poikilocytosis Not Reportable 09/15/18 00:51 Anisocytosis Not Reportable 09/15/18 00:51 Microcytosis Not Reportable 09/15/18 00:51 Macrocytosis Not Reportable 09/15/18 00:51 Spherocytes Not Reportable 09/15/18 00:51 Pappenheimer Bodies Not Reportable 09/15/18 00:51 Sickle Cells Not Reportable 09/15/18 00:51 Target Cells Not Reportable 09/15/18 00:51 Tear Drop Cells Not Reportable 09/15/18 00:51 Ovalocytes Not Reportable 09/15/18 00:51 Helmet Cells Not Reportable 09/15/18 00:51 [place] Bodies Not Reportable 09/15/18 00:51 [place] Rings Not Reportable 09/15/18 00:51 Cinthya Cells Not Reportable 09/15/18 00:51 Bite Cells Not Reportable 09/15/18 00:51 Crenated Cell Not Reportable 09/15/18 00:51 Elliptocytes Not Reportable 09/15/18 00:51 Acanthocytes (Spur) Not Reportable 09/15/18 00:51 Rouleaux Not Reportable 09/15/18 00:51 Hemoglobin C Crystals Not Reportable 09/15/18 00:51 Schistocytes Not Reportable 09/15/18 00:51 Malaria parasites Not Reportable 09/15/18 00:51 Carlos A Bodies Not Reportable 09/15/18 00:51 Hem Pathologist Commnt No 09/15/18 00:51 PT 15.1 Sec. (12.2-14.9) H 09/11/18 05:22 INR 1.12 (0.87-1.13) 09/11/18 05:22 Sodium 140 mmol/L (137-145) D 09/15/18 04:31 Potassium 3.9 mmol/L (3.6-5.0) 09/15/18 04:31 Chloride 112.0 mmol/L (98-107) H 09/15/18 04:31 Carbon Dioxide 13 mmol/L (22-30) L 09/15/18 04:31 Anion Gap 19 mmol/L 09/15/18 04:31 BUN 15 mg/dL (9-20) 09/15/18 04:31 Creatinine 1.3 mg/dL (0.8-1.5) 09/15/18 04:31 Estimated GFR > 60 ml/min 09/15/18 04:31 BUN/Creatinine Ratio 12 % 09/15/18 04:31 Glucose 65 mg/dL (75-100) L 09/15/18 04:31 POC Glucose 91 (70-105) 09/09/18 07:18 Lactic Acid 1.30 mmol/L (0.7-2.0) 09/05/18 03:50 Calcium 8.6 mg/dL (8.4-10.2) D 09/15/18 04:31 Iron 26 ug/dL (49-181) L 09/07/18 10:38 TIBC 212 mcg/dL (250-450) L 09/07/18 10:38 Ferritin 2762.0 ng/mL (13.0-400.0) H 09/07/18 10:38 Total Bilirubin < 0.20 mg/dL (0.1-1.2) 09/12/18 12:28 Direct Bilirubin < 0.2 mg/dL (0-0.2) 09/08/18 13:43 Indirect Bilirubin 0.0 mg/dL 09/06/18 10:40 AST 126 units/L (5-40) H 09/12/18 12:28 ALT 77 units/L (7-56) H 09/12/18 12:28 Alkaline Phosphatase 124 units/L (35-129) 09/12/18 12:28 Ammonia 51.0 umol/L (25-60) 09/12/18 12:28 Total Creatine Kinase 101 units/L (55-170) 09/04/18 21:00 Troponin T < 0.010 ng/mL (0.00-0.029) 09/10/18 12:14 Total Protein 5.7 g/dL (6.3-8.2) L 09/12/18 12:28 Albumin 2.6 g/dL (3.9-5) L 09/12/18 12:28 Albumin/Globulin Ratio 0.8 % 09/12/18 12:28 TSH 0.960 mlU/mL (0.270-4.200) 09/04/18 21:00 Urine Color Yellow (Yellow) 09/04/18 23:30 Urine Turbidity Clear (Clear) 09/04/18 23:30 Urine pH 6.0 (5.0-7.0) 09/04/18 23:30 Ur Specific [place] 1.012 (1.003-1.030) 09/04/18 23:30 Urine Protein <15 mg/dl mg/dL (Negative) 09/04/18 23:30 Urine Glucose (UA) Neg mg/dL (Negative) 09/04/18 23:30 Urine Ketones Neg mg/dL (Negative) 09/04/18 23:30 Urine Blood Neg (Negative) 09/04/18 23:30 Urine Nitrite Neg (Negative) 09/04/18 23:30 Urine Bilirubin Neg (Negative) 09/04/18 23:30 Urine Urobilinogen < 2.0 mg/dL (<2.0) 09/04/18 23:30 Ur Leukocyte Esterase Neg (Negative) 09/04/18 23:30 Urine WBC (Auto) 1.0 /HPF (0.0-6.0) 09/04/18 23:30 Urine RBC (Auto) 2.0 /HPF (0.0-6.0) 09/04/18 23:30 Urine Bacteria (Auto) 1+ /HPF (Negative) 09/04/18 23:30 Urine Mucus Few /HPF 09/04/18 23:30 Urine Opiates Screen Presumptive negative 09/04/18 23:30 Urine Methadone Screen Presumptive negative 09/04/18 23:30 Ur Barbiturates Screen Presumptive negative 09/04/18 23:30 Ur Phencyclidine Scrn Presumptive negative 09/04/18 23:30 Ur Amphetamines Screen Presumptive negative 09/04/18 23:30 U Benzodiazepines Scrn Presumptive negative 09/04/18 23:30 Urine Cocaine Screen Presumptive negative 09/04/18 23:30 U Marijuana (THC) Screen Presumptive negative 09/04/18 23:30 Drugs of Abuse Note Disclamer 09/04/18 23:30 Plasma/Serum Alcohol < 0.01 % (0-0.07) 09/04/18 21:00 JAMEEL Screen Negative (Negative) 09/05/18 16:19 Sm ([place]) Antibody <1.0 AI (<1.0) 09/05/18 16:19 Mitochondria M2 Ab <=20.0 U (<=20.0) 09/05/18 16:19 CMV DNA PCR log copra sampler/mL See scanned results 09/08/18 16:50 Hepatitis A IgM Ab Non-reactive (NonReactive) 09/08/18 06:39 Hep Bs Antigen Non-reactive (Negative) 09/08/18 06:39 Hep B Core IgM Ab Non-reactive (NonReactive) 09/08/18 06:39 Hepatitis C Antibody Non-reactive (NonReactive) 09/08/18 06:39 Miscellaneous Test Flexitest 1 09/09/18 07:03 Active Medications - Current Medications Current Medications: Generic Name Dose Route Start Last Admin Trade Name Freq PRN Reason Stop Dose Admin Acetaminophen 650 mg 09/05/18 02:48 09/09/18 06:44 Tylenol PO 650 mg Q4H PRN Administration Pain MILD(1-3)/Fever >100.5/VILLAREAL Acetaminophen/Hydrocodone Bitart 1 each 09/05/18 02:48 [place] 5/325 PO Q4H PRN Pain, Moderate (4-6) Aspirin 81 mg 09/09/18 17:00 09/15/18 10:05 Baby Aspirin PO 81 mg QDAY GLEN Administration Enoxaparin Sodium 40 mg 09/05/18 10:00 09/15/18 10:05 Lovenox SUB-Q Not Given QDAY GLEN Famotidine 10 mg 09/05/18 10:00 09/15/18 10:05 Pepcid IV 10 mg BID GLEN Administration Sodium Chloride 1,000 mls @ 42 mls/hr 09/11/18 10:00 09/15/18 17:06 Nacl 0.9% 1000 Ml IV 42 mls/hr DIRECT GLEN Administration Midodrine 10 mg 09/05/18 19:00 09/15/18 17:04 Proamatine PO 10 mg TID@0800,1200,1600 GLEN Administration Nystatin 500,000 unit 09/10/18 20:00 09/15/18 14:31 Nystatin PO Not Given TID GLEN Ondansetron HCl 4 mg 09/05/18 02:48 09/10/18 13:06 Zofran IV 4 mg Q8H PRN Administration Nausea And Vomiting Sodium Chloride 10 ml 09/05/18 10:00 09/15/18 10:06 Sodium Chloride Flush Syringe 10 Ml IV 10 ml BID GLEN Administration Sodium Chloride 10 ml 09/05/18 02:48 Sodium Chloride Flush Syringe 10 Ml IV PRN PRN LINE FLUSH Trimethoprim/Sulfamethoxazole 1 each 09/14/18 10:00 09/15/18 10:05 Bactrim Ds PO 1 each DAILY GLEN Administration Nutrition/Malnutrition Assess - Dietary Evaluation Nutrition/Malnutrition Findings: Nutrition Notes Start: 09/06/18 15:57 Freq: Status: Active Protocol: Document 09/14/18 15:00 LM (Rec: 09/14/18 15:07 LM [id number]) Co-Sign 09/14/18 15:00 LP Nutrition Notes Initial or Follow up Reassessment Other Pertinent Diagnosis HIV/AIDS, encephalopathy, noncompliance Labs/Tests Reviewed Pertinent Medications Reviewed Height 5 ft 3 in Weight 46 kg [place] Body Weight (kg) 56.36 BMI 17.9 Subjective/Other Information Pt was reluctant to answer questions. Pt stated he has no appetite and did not eat breakfast. Patient stated he was not drinking ONS. Pt not started on appetite stimulant. Hospice being considered for hospice. Percent of energy/protein needs met: 0%/0% Burn Absent Trauma Absent #1 Nutrition Diagnosis Malnutrition Diagnosis Progress(for reassessment Continues documentation) Is patient on ventilator? No Is Patient Ambulatory and/or Out of Bed No [facility] [phone] Calculation Used for Recommendations [facility] Additional Notes Pro needs 1.2-1.5g/k-69 g /day Fluid needs 1ml/kcal Nutrition Intervention Change Diet Order: Continue current Add Supplement/Snack (indicate name/kcal D/C /protein ) Goal #1 Meet at least 75% of calorie and protein needs Anticipated Discharge Needs: Regular diet Follow-Up By: 09/17/18 Additional Comments F/U: intakes
--- NOTE | 2018-09-15 18:02 | Progress Note ---
Assessment and Plan Patient sleeping at this time On room air. No acute respiratory distress.O2 saturation 99%.Patient afebrile but he has leukopenia. - Patient Problems (1) Pneumonia Current Visit: Yes Status: Acute Qualifiers: Pneumonia type: due to unspecified organism Laterality: left Lung location: lower lobe of lung Qualified Code(s): J18.1 - Lobar pneumonia, unspecified organism Plan to address problem: Patient is on Cefepime and bactium. (2) AIDS Current Visit: Yes Status: Chronic Plan to address problem: Management as per infectious diseases. (3) Altered mental status Current Visit: Yes Status: Acute Plan to address problem: Management as per primary care and neurology. (4) Oral candidiasis Current Visit: Yes Status: Acute Plan to address problem: Patient getting nystatin. Subjective Date of service: 09/15/18 Principal diagnosis: elevated LFTs, oral candidiasis Interval history: Patient sleeping at this time On room air. No acute respiratory distress.O2 saturation 99%.Patient afebrile but he has leukopenia. Objective Vital Signs - 12hr 09/15/18 09/15/18 09/15/18 08:40 09:19 10:00 Temperature 97.9 F Pulse Rate 68 59 L Pulse Rate [ 48 L From Monitor] Respiratory 18 14 18 Rate Blood Pressure 79/48 Blood Pressure 74/48 [Right] O2 Sat by Pulse 100 Oximetry 09/15/18 09/15/18 09/15/18 12:06 14:29 16:38 Temperature 97.2 F L 97.7 F Pulse Rate 61 40 L 43 L Pulse Rate [ From Monitor] Respiratory 12 18 12 Rate Blood Pressure 65/36 84/51 Blood Pressure 89/58 [Right] O2 Sat by Pulse 99 99 100 Oximetry Constitutional: no acute distress, alert, other (Weak) Eyes: non-icteric ENT: oropharynx moist Neck: supple, no lymphadenopathy Ascultation: Bilateral: diminished breath sounds, other (Prolonged expiratory phase.) Cardiovascular: regular rate and rhythm Gastrointestinal: normoactive bowel sounds, soft, non-tender Integumentary: normal Extremities: no cyanosis, no edema Neurologic: other (Patient is sleeping.) Psychiatric: other (Patient sleeping.) CBC and BMP: 09/15/18 00:51 09/15/18 04:31 ABG, PT/INR, D-dimer: PT/INR, D-dimer PT 15.1 Sec. (12.2-14.9) H 09/11/18 05:22 INR 1.12 (0.87-1.13) 09/11/18 05:22 Abnormal lab findings: Abnormal Labs 09/04/18 09/04/18 09/04/18 21:00 21:00 22:32 WBC RBC 3.23 L Hgb 9.6 L Hct 28.9 L RDW 18.8 H Plt Count Lymph % (Auto) [place] % (Auto) 12.5 H Lymph # 0.7 L Seg Neutrophils % 72.4 H Seg Neuts % (Manual) Lymphocytes % (Manual) Monocytes % (Manual) Seg Neutrophils # Man Lymphocytes # (Manual) PT Sodium Potassium Chloride 109.9 H Carbon Dioxide 21 L BUN 31 H Creatinine Glucose Lactic Acid 2.40 H* Calcium 8.2 L Iron TIBC Ferritin AST 200 H ALT 136 H Alkaline Phosphatase 138 H Ammonia Total Protein Albumin 3.5 L 09/04/18 09/05/18 09/05/18 22:32 16:19 16:19 WBC RBC Hgb Hct RDW Plt Count Lymph % (Auto) [place] % (Auto) Lymph # Seg Neutrophils % Seg Neuts % (Manual) Lymphocytes % (Manual) Monocytes % (Manual) Seg Neutrophils # Man Lymphocytes # (Manual) PT Sodium Potassium Chloride 112.4 H Carbon Dioxide 19 L BUN Creatinine Glucose Lactic Acid Calcium 8.1 L Iron TIBC 223 L Ferritin AST 241 H ALT 138 H Alkaline Phosphatase Ammonia 64.0 H Total Protein Albumin 3.1 L 09/05/18 09/06/18 09/06/18 16:19 10:40 10:40 WBC 2.4 L RBC 2.67 L Hgb 7.7 L Hct 23.7 L RDW 18.7 H Plt Count 135 L Lymph % (Auto) 10.0 L [place] % (Auto) 8.4 H Lymph # 0.2 L Seg Neutrophils % 81.1 H Seg Neuts % (Manual) Lymphocytes % (Manual) Monocytes % (Manual) Seg Neutrophils # Man Lymphocytes # (Manual) PT Sodium Potassium Chloride 112.1 H Carbon Dioxide 19 L BUN Creatinine 0.7 L Glucose Lactic Acid Calcium 7.8 L Iron TIBC Ferritin 2880.0 H AST 263 H ALT 143 H Alkaline Phosphatase Ammonia Total Protein 6.1 L Albumin 2.8 L 09/07/18 09/07/18 09/08/18 10:38 10:38 06:39 WBC RBC 2.86 L Hgb 8.3 L Hct 25.2 L RDW 18.3 H Plt Count 123 L Lymph % (Auto) 6.1 L [place] % (Auto) Lymph # 0.3 L Seg Neutrophils % 87.3 H Seg Neuts % (Manual) Lymphocytes % (Manual) Monocytes % (Manual) Seg Neutrophils # Man Lymphocytes # (Manual) PT Sodium Potassium Chloride Carbon Dioxide BUN Creatinine Glucose Lactic Acid Calcium Iron 26 L TIBC 212 L Ferritin 2762.0 H AST ALT Alkaline Phosphatase Ammonia Total Protein Albumin 09/08/18 09/08/18 09/09/18 06:39 13:43 07:03 WBC RBC Hgb Hct RDW Plt Count Lymph % (Auto) [place] % (Auto) Lymph # Seg Neutrophils % Seg Neuts % (Manual) Lymphocytes % (Manual) Monocytes % (Manual) Seg Neutrophils # Man Lymphocytes # (Manual) PT Sodium Potassium 3.2 L 3.5 L Chloride 111.9 H 108.6 H Carbon Dioxide 13 L 15 L BUN 6 L 4 L Creatinine Glucose 118 H Lactic Acid Calcium 7.5 L 7.5 L Iron TIBC Ferritin AST 117 H 130 H ALT 87 H 86 H Alkaline Phosphatase Ammonia Total Protein 5.6 L 6.0 L Albumin 2.6 L 2.6 L 09/09/18 09/10/18 09/10/18 07:31 04:26 04:26 WBC 3.5 L 2.1 L RBC 2.82 L 3.10 L Hgb 8.2 L 9.0 L Hct 24.6 L 27.1 L RDW 18.8 H 18.6 H Plt Count 136 L 139 L Lymph % (Auto) [place] % (Auto) Lymph # Seg Neutrophils % Seg Neuts % (Manual) 77.0 H Lymphocytes % (Manual) 11.0 L Monocytes % (Manual) 11.0 H Seg Neutrophils # Man 1.6 L Lymphocytes # (Manual) 0.2 L PT Sodium Potassium Chloride 112.7 H Carbon Dioxide 14 L BUN 5 L Creatinine Glucose 109 H Lactic Acid Calcium 7.7 L Iron TIBC Ferritin AST 110 H ALT 76 H Alkaline Phosphatase Ammonia Total Protein 6.0 L Albumin 2.8 L 09/11/18 09/12/18 09/13/18 05:22 12:28 07:23 WBC 1.1 L* RBC 2.82 L Hgb 8.2 L Hct 25.5 L RDW 19.5 H Plt Count 103 L Lymph % (Auto) [place] % (Auto) Lymph # Seg Neutrophils % Seg Neuts % (Manual) Lymphocytes % (Manual) Monocytes % (Manual) 18.0 H Seg Neutrophils # Man 0.6 L Lymphocytes # (Manual) 0.3 L PT 15.1 H Sodium 133 L Potassium 3.5 L Chloride 108.8 H Carbon Dioxide 14 L BUN 6 L Creatinine Glucose 123 H Lactic Acid Calcium 7.4 L Iron TIBC Ferritin AST 126 H ALT 77 H Alkaline Phosphatase Ammonia Total Protein 5.7 L Albumin 2.6 L 09/15/18 09/15/18 00:51 04:31 WBC 1.2 L* RBC 3.38 L Hgb 9.7 L Hct 29.5 L RDW 19.0 H Plt Count 95 L Lymph % (Auto) [place] % (Auto) Lymph # Seg Neutrophils % Seg Neuts % (Manual) Lymphocytes % (Manual) Monocytes % (Manual) 24.0 H Seg Neutrophils # Man 0.6 L Lymphocytes # (Manual) 0.3 L PT Sodium Potassium Chloride 112.0 H Carbon Dioxide 13 L BUN Creatinine Glucose 65 L Lactic Acid Calcium Iron TIBC Ferritin AST ALT Alkaline Phosphatase Ammonia Total Protein Albumin
[2018-09-16] MEDS: NACL 0.9% 1000 ML 1,000 ML IV SCH ×2 (07:04→22:32)
[2018-09-16] MEDS: NYSTATIN PO SCH ×3 (09:40→22:40)
[2018-09-16] MEDS: PROAMATINE PO SCH ×3 (09:40→17:25)
[2018-09-16] MEDS: PEPCID IV SCH ×2 (09:40→22:32)
[2018-09-16] MEDS: BABY ASPIRIN PO SCH (09:40)
[2018-09-16] MEDS: SODIUM CHLORIDE FLUSH SYRINGE 10 ML IV SCH ×2 (09:41→22:32)
[2018-09-16] MEDS: BACTRIM DS PO SCH (09:41)
[2018-09-16] MEDS: LOVENOX SUB-Q SCH (09:41)
--- NOTE | 2018-09-16 10:58 | Consultation ---
History of Present Illness - Reason for Consult Consult date: 09/16/18 Reason for consult: Mental Health EValuation Requesting physician: YADIRA DUNBAR - Chief Complaint Chief complaint: "Can you come back tomorrow" - History of Present Psychiatric Illness 42-year-old Afro[place]er male presents to the emergency department via EMS from his residence at [place] with complaint of altered mental status. Today the patient is calm during the assessment. Psychiatry was consulted to see the patient for depression. The patient was asked several questions about his mental health, he replied, "Can you come back tomorrow. " No gestures of SI/HI's. Medications and Allergies Allergies Allergy/AdvReac Type Severity Reaction Status Date / Time No Known Allergies Allergy Verified 07/18/18 14:08 Home Medications Medication Instructions Recorded Confirmed Last Taken Type Azithromycin [Zithromax TAB] 1,200 mg PO QWEEK #4 tablet 06/18/18 09/14/18 Unknown Rx Pantoprazole [Protonix TAB] 40 mg PO DAILY #30 tablet 06/19/18 09/14/18 Unknown Rx Nystas/Diphen/Xyl Visc/Mylanta 15 ml PO TID 14 Days oral.liqd 07/18/18 09/14/18 Unknown Rx [Magic Mouthwash] Nystas/Diphen/Xyl Visc/Mylanta 15 ml PO TID 30 Days #1 udc 07/23/18 09/14/18 Unknown Rx [Magic Mouthwash] Sulfamethoxazole/Trimethoprim 1 each PO QDAY 30 Days #30 tablet 07/23/18 09/14/18 Unknown Rx [Bactrim DS TAB] Posaconazole [Noxafil] 300 mg PO BID 1 Days #6 tablet. 08/03/18 09/14/18 Unknown Rx Posaconazole [Noxafil] 300 mg PO QDAY 13 Days #39 08/03/18 09/14/18 Unknown Rx tablet. Acyclovir [Zovirax Tab] 400 mg PO Q8H 30 Days #90 tab 08/04/18 09/14/18 Unknown Rx Azithromycin [Zithromax TAB] 1,200 mg PO QDAY 30 Days #8 tablet 08/04/18 09/14/18 Unknown Rx Loperamide [Imodium] 2 mg PO Q2H PRN #30 capsule 08/04/18 09/14/18 Unknown Rx Midodrine HCl 2.5 mg PO DAILY #30 tablet 08/04/18 09/14/18 Unknown Rx Active Meds: Active Medications Acetaminophen (Tylenol) 650 mg PO Q4H PRN PRN Reason: Pain MILD(1-3)/Fever >100.5/VILLAREAL Last Admin: 09/09/18 06:44 Dose: 650 mg Documented by: Acetaminophen/Hydrocodone Bitart (Peck 5/325) 1 each PO Q4H PRN PRN Reason: Pain, Moderate (4-6) Aspirin (Baby Aspirin) 81 mg PO QDAY [facility] Last Admin: 09/16/18 09:40 Dose: 81 mg Documented by: Enoxaparin Sodium (Lovenox) 40 mg SUB-Q QDAY [facility] Last Admin: 09/16/18 09:41 Dose: Not Given Documented by: Famotidine (Pepcid) 10 mg IV BID [facility] Last Admin: 09/16/18 09:40 Dose: 10 mg Documented by: Sodium Chloride (Nacl 0.9% 1000 Ml) 1,000 mls @ 100 mls/hr IV DIRECT [facility] Midodrine (Proamatine) 10 mg PO TID@0800,1200,1600 [facility] Last Admin: 09/16/18 09:40 Dose: 10 mg Documented by: Nystatin (Nystatin) 500,000 unit PO TID [facility] Last Admin: 09/16/18 09:40 Dose: 500,000 unit Documented by: Ondansetron HCl (Zofran) 4 mg IV Q8H PRN PRN Reason: Nausea And Vomiting Last Admin: 09/10/18 13:06 Dose: 4 mg Documented by: Sodium Chloride (Sodium Chloride Flush Syringe 10 Ml) 10 ml IV BID [facility] Last Admin: 09/16/18 09:41 Dose: 10 ml Documented by: Sodium Chloride (Sodium Chloride Flush Syringe 10 Ml) 10 ml IV PRN PRN PRN Reason: LINE FLUSH Trimethoprim/Sulfamethoxazole (Bactrim Ds) 1 each PO DAILY [facility] Last Admin: 09/16/18 09:41 Dose: 1 each Documented by: Past psychiatric history - Past Medical History Past Medical History: HIV/AIDS Past Surgical History: No surgical history - past Psychiatric treatment and history psychiatric treatment history: Denies a psy hx and fam psy hx. - Social History Social history: lives with family Mental Status Exam - Vital signs Last Vital Signs Temp 97.8 F 09/16/18 07:57 Pulse 64 09/16/18 07:57 Resp 12 09/16/18 07:57 BP 76/43 09/16/18 07:57 Pulse Ox 99 09/16/18 07:57 - Exam Narrative exam: Unable to complete the MSE because the patient would like to been again in 24 hours. Results Result Diagrams: 09/15/18 00:51 09/15/18 04:31 All other labs normal. Assessment and Plan Assessment and plan: Impression: Today the patient is calm during the assessment. Recommendation/Plan: Reassess the patient in 24 hours. Will staff with Dr Estella Juarez.
--- NOTE | 2018-09-16 10:58 | Progress Note ---
Assessment and Plan Culture 09/08/2018 Blood culture: no growth 09/08/2018 Serum Cr Ag: negative 09/09/2018 Blood culture: no growth thus far Fungal blood culture: in process A/P: 42 year old male, know to ID from previous admissions on 06/23/18-06/19/18 and 07/18/18- 08/04/18 for pneumonia, HIV/AIDS, severe oral candidiasis and diarrhea. CD4 count 11. Viral Load [id number]. HIV genotype 06/18/2018 with few resistance mutations. CMV negative. Patient remains noncompliant with his HAART therapy. Now admitted with: 1. Altered Mental Status/Acute encephalopathy: Back to baseline. 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 CT head shows no acute intracranial abnormality. + chronic maxillary and ethmoid sinusitis. MRI images showing brain atrophy, no focal lesions to suggest toxoplasma, PML, ventriculitis, MAINTENANCE MANAGER lymphoma or other space occupying lesions. Crypto Ag is negative. TTE shows no valvular vegetation, EF 30-35 %. -Fungitell: negative -CMV DNR - <200 2. Oral Candidiasis: h/o resistant Carolann. improved. Continue Nystatin 3. HIV/AIDS: Last admission in June CD4 count 11. Viral load high. Remains non-compliant. Prognosis is poor. 4. Severe Malnutrition: related to HIV AIDS 5. Transaminitis: elevated liver enzymes from last admission. Abdominal ultrasound unremarkable. CT abdomen showing possible enteritis and somewhat inhomogenous liver. may be due to ischemic hepatitis, HIV/AIDS hepatopathy, infectious etiology with viral hepatitis, vs drug toxicity- GI following. Stable to improving. Evaluating for disseminated MAC, fungal/mycolytic blood cultures in process. HAV, HBV, HCV - nonreactive 6. New Fevers : Improved. 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 CAP vs PCP: Chest CT shows Bilateral pneumonia with findings most prominent in the left lower lobe as described. Bronchiectatic changes in left lower lobe noted also. Scattered blebs in the left lung. Fungitell negative, so PCP quite less likely. bilateral ground glass opacities could be fluid given cardiomyopathy and low EF. 8. Leukopenia: ?Bactrim related. Plan: -continue nystatin swish and swallow -continue Bactrim to 1 DS daily -f/u AFB fungal blood culture -Patient agrees to go to SNF per family meeting today. Message sent to case management [facility] [employer] [facility] M: [id number] O:[phone] Subjective Date of service: 09/16/18 Principal diagnosis: elevated LFTs, oral candidiasis Interval history: Patient seen and examined. Denies pain or SOB. No fevers. Objective - Exam Narrative Exam: Constitutional: Awake. Alert. no acute distress.. cachexia Head, Ears, Nose: Normocephalic, atraumatic. External ears, nose normal Eyes: Conjunctivae/corneas clear. No icterus. No ptosis. Neck: Supple, no meningeal signs Oral: dentition poor. , Oral thrush improved Cardiovascular: S1, S2 normal. Respiratory: Good air entry, clear to auscultation bilaterally GI: Soft, non-tender; bowel sounds normal. No peritoneal signs Musculoskeletal: No pedal edema, no cyanosis. Skin: No rash or abscess. Hem/Lymphatic: No palpable cervical or supraclavicular nodes. No lymphangitis Psych: Mood ok. Affect flat Neurological: Awake. Alert. no acute distress - Constitutional Vitals: Vital Signs Temp Pulse Resp BP Pulse Ox 97.8 F 64 12 76/43 99 09/16/18 07:57 09/16/18 07:57 09/16/18 07:57 09/16/18 07:57 09/16/18 07:57 Temperature -Last 24 Hours Temperature 97.8 F Temperature 98.0 F Temperature 98.0 F Temperature 97.3 F Temperature 97.7 F Temperature 97.2 F - Labs CBC & Chem 7: 09/15/18 00:51 09/15/18 04:31
--- NOTE | 2018-09-16 13:14 | Progress Note ---
Assessment and Plan Assessment and plan: Patient is a 42 yo man with a history of HIV/AIDs and anemia who presented to [facility] ED with AMS on 09/04/18. Patient was just discharged from here on 08/04/2018 for sepsis, LLL, lingula pneumonia and severe oral candidiasis * CT chest wo contrast IMPRESSION: Bilateral pneumonia with findings most prominent in the left lower lobe as described. Bronchiectatic changes in left lower lobe noted also. Scattered blebs in the left lung.. * GB Ultrasound IMPRESSION: The gallbladder lumen is contracted. The common bile duct is normal measuring 2 mm. * CT head without contrast Impression: No acute intracranial abnormality, chronic maxillary and ethmoid sinusitis -Hypotension, acute on chronic hypotension, bp has been low since Jun 2018 (as far as our records go), so I don't believe the chronic hypotension is sepsis related, his effective circulatory volume is low due to his malnutrition from severe HIV/AIDs which causing the pancytopenia, severe malnutrition, oral thrush, etc... Cardiology and ID recommends Hospice, but patient refuses. Continue present management -AMS due to acute metabolic encephalopathy from FTT/malnutrition, improving: consulted Provider Network Mgr, -HIV/AIDs with pancytopenia/bone marrow failure most likely: consulted ID -Worsening Transaminitis: consulted GI, cmp daily, reviewed GB ultrasound -AOCD: monitor cbc daily -Severe Malnutrition: consulted Provider Network Mgr -Acute Renal Failure, vasomotor nephropathy, poa, Cr is 1.0, up from baseline of 0.5: repeat BMP in am -Oral Candidiasis, treated, tolerating a diet, will monitor, GI evaluated -Non-adherence to medical therapy: counseling done -Lactic acidosis, Resolved status post IV hydration -Metabolic acidosis: On IV fluid, will monitor bicarbonate level -Hyperammonemia-Lactulose ordered but patient refuses DVT prophylaxis with Lovenox but pt is refusing, counseling done again Disposition: continue inpatient care IV line out and Patient refusing new iv line, I had to speak with him and he agree then I gave him a bolus of NSS. We spoke about hospice and compliance. He denies SI/HI but would not answered about being depressed. I will consult Mental health for possible depression. Patient is refusing to engage in psych eval uation. Still waiting on mother to come to discuss hospice and overall care History Interval history: Patient was seen and examined. Follow-up on current diagnosis of hypotension. Overnight uneventful. Patient denies any chest pain, shortness breath, nausea /vomiting or severe headaches. Imaging, nursing note, chart, labs and old chart reviewed. Discussed with patient. Hospitalist Physical - Physical exam Narrative exam: Gen: cachetic, unkempt, NAD, Awake, Alert, Orientated x 3 HEENT: NCAT, EOMI, PERRL, OP dry and crusty, whitish Neck: supple, no adenopathy, no thyromegaly, no JVD CVS/Heart: RRR, normal S1S2, pulses present bilaterally Chest/Lungs: CTA B, Symmetrical chest expansion, good air entry bilaterally GI/Abdomen: soft, NTND, good bowel sounds, no guarding or rebound /Bladder: no suprapubic tenderness, no CVA or paraspinal tenderness Extermity/Skin: no c/c/e, no obvious rash MSK: FROM x 4 Neuro: CN 2-12 grossly intact, no new focal deficits Psych: calm - Constitutional Vitals: Temp Pulse Resp BP Pulse Ox 97.7 F 67 20 90/56 98 09/16/18 11:42 09/16/18 11:42 09/16/18 11:42 09/16/18 11:42 09/16/18 11:42 General appearance: Present: no acute distress, well-nourished Results - Labs CBC & Chem 7: 09/15/18 00:51 09/15/18 04:31 Labs: Laboratory Last Values WBC 1.2 K/mm3 (4.5-11.0) L* 09/15/18 00:51 RBC 3.38 M/mm3 (3.65-5.03) L 09/15/18 00:51 Hgb 9.7 gm/dl (11.8-15.2) L 09/15/18 00:51 Hct 29.5 % (35.5-45.6) L 09/15/18 00:51 MCV 87 fl (84-94) 09/15/18 00:51 MCH 29 pg (28-32) 09/15/18 00:51 MCHC 33 % (32-34) 09/15/18 00:51 RDW 19.0 % (13.2-15.2) H 09/15/18 00:51 Plt Count 95 K/mm3 (140-440) L 09/15/18 00:51 Lymph % (Auto) 6.1 % (13.4-35.0) L 09/08/18 06:39 [place] % (Auto) Client Service Coordinator 09/15/18 00:51 Eos % (Auto) 0.0 % (0.0-4.3) 09/08/18 06:39 Baso % (Auto) 0.2 % (0.0-1.8) 09/08/18 06:39 Lymph # 0.3 K/mm3 (1.2-5.4) L 09/08/18 06:39 [place] # 0.3 K/mm3 (0.0-0.8) 09/08/18 06:39 Eos # 0.0 K/mm3 (0.0-0.4) 09/08/18 06:39 Baso # 0.0 K/mm3 (0.0-0.1) 09/08/18 06:39 Add Manual Diff Complete 09/15/18 00:51 Total Counted 100 09/15/18 00:51 Seg Neutrophils % 87.3 % (40.0-70.0) H 09/08/18 06:39 Seg Neuts % (Manual) 50.0 % (40.0-70.0) 09/15/18 00:51 Band Neutrophils % 0 % 09/15/18 00:51 Lymphocytes % (Manual) 26.0 % (13.4-35.0) 09/15/18 00:51 Reactive Lymphs % (Man) 0 % 09/15/18 00:51 Monocytes % (Manual) 24.0 % (0.0-7.3) H 09/15/18 00:51 Eosinophils % (Manual) 0 % (0.0-4.3) 09/15/18 00:51 Basophils % (Manual) 0 % (0.0-1.8) 09/15/18 00:51 Metamyelocytes % 0 % 09/15/18 00:51 Myelocytes % 0 % 09/15/18 00:51 Promyelocytes % 0 % 09/15/18 00:51 Blast Cells % 0 % 09/15/18 00:51 Nucleated RBC % Not Reportable 09/15/18 00:51 Seg Neutrophils # 4.5 K/mm3 (1.8-7.7) 09/08/18 06:39 Seg Neutrophils # Man 0.6 K/mm3 (1.8-7.7) L 09/15/18 00:51 Band Neutrophils # 0.0 K/mm3 09/15/18 00:51 Lymphocytes # (Manual) 0.3 K/mm3 (1.2-5.4) L 09/15/18 00:51 Abs React Lymphs (Man) 0.0 K/mm3 09/15/18 00:51 Monocytes # (Manual) 0.3 K/mm3 (0.0-0.8) 09/15/18 00:51 Eosinophils # (Manual) 0.0 K/mm3 (0.0-0.4) 09/15/18 00:51 Basophils # (Manual) 0.0 K/mm3 (0.0-0.1) 09/15/18 00:51 Metamyelocytes # 0.0 K/mm3 09/15/18 00:51 Myelocytes # 0.0 K/mm3 09/15/18 00:51 Promyelocytes # 0.0 K/mm3 09/15/18 00:51 Blast Cells # 0.0 K/mm3 09/15/18 00:51 WBC Morphology Not Reportable 09/15/18 00:51 Hypersegmented Neuts Not Reportable 09/15/18 00:51 Hyposegmented Neuts Not Reportable 09/15/18 00:51 Hypogranular Neuts Not Reportable 09/15/18 00:51 Smudge Cells Not Reportable 09/15/18 00:51 Toxic Granulation Not Reportable 09/15/18 00:51 Toxic Vacuolation Not Reportable 09/15/18 00:51 Dohle Bodies Not Reportable 09/15/18 00:51 Pel[place]uet Anomaly Not Reportable 09/15/18 00:51 Giovanni Rods Not Reportable 09/15/18 00:51 Platelet Estimate Not Reportable 09/15/18 00:51 Clumped Platelets Not Reportable 09/15/18 00:51 Plt Clumps, EDTA Not Reportable 09/15/18 00:51 Large Platelets Not Reportable 09/15/18 00:51 Giant Platelets Not Reportable 09/15/18 00:51 Platelet Satelliting Not Reportable 09/15/18 00:51 Plt Morphology Comment Not Reportable 09/15/18 00:51 RBC Morphology Normal 09/15/18 00:51 Dimorphic RBCs Not Reportable 09/15/18 00:51 Polychromasia Not Reportable 09/15/18 00:51 Hypochromasia Not Reportable 09/15/18 00:51 Poikilocytosis Not Reportable 09/15/18 00:51 Anisocytosis Not Reportable 09/15/18 00:51 Microcytosis Not Reportable 09/15/18 00:51 Macrocytosis Not Reportable 09/15/18 00:51 Spherocytes Not Reportable 09/15/18 00:51 Pappenheimer Bodies Not Reportable 09/15/18 00:51 Sickle Cells Not Reportable 09/15/18 00:51 Target Cells Not Reportable 09/15/18 00:51 Tear Drop Cells Not Reportable 09/15/18 00:51 Ovalocytes Not Reportable 09/15/18 00:51 Helmet Cells Not Reportable 09/15/18 00:51 [place] Bodies Not Reportable 09/15/18 00:51 [place] Rings Not Reportable 09/15/18 00:51 [place] Cells Not Reportable 09/15/18 00:51 Bite Cells Not Reportable 09/15/18 00:51 Crenated Cell Not Reportable 09/15/18 00:51 Elliptocytes Not Reportable 09/15/18 00:51 Acanthocytes (Spur) Not Reportable 09/15/18 00:51 Rouleaux Not Reportable 09/15/18 00:51 Hemoglobin C Crystals Not Reportable 09/15/18 00:51 Schistocytes Not Reportable 09/15/18 00:51 Malaria parasites Not Reportable 09/15/18 00:51 Carlos A Bodies Not Reportable 09/15/18 00:51 Hem Pathologist Commnt No 09/15/18 00:51 PT 15.1 Sec. (12.2-14.9) H 09/11/18 05:22 INR 1.12 (0.87-1.13) 09/11/18 05:22 Sodium 140 mmol/L (137-145) D 09/15/18 04:31 Potassium 3.9 mmol/L (3.6-5.0) 09/15/18 04:31 Chloride 112.0 mmol/L (98-107) H 09/15/18 04:31 Carbon Dioxide 13 mmol/L (22-30) L 09/15/18 04:31 Anion Gap 19 mmol/L 09/15/18 04:31 BUN 15 mg/dL (9-20) 09/15/18 04:31 Creatinine 1.3 mg/dL (0.8-1.5) 09/15/18 04:31 Estimated GFR > 60 ml/min 09/15/18 04:31 BUN/Creatinine Ratio 12 % 09/15/18 04:31 Glucose 65 mg/dL (75-100) L 09/15/18 04:31 POC Glucose 91 (70-105) 09/09/18 07:18 Lactic Acid 1.30 mmol/L (0.7-2.0) 09/05/18 03:50 Calcium 8.6 mg/dL (8.4-10.2) D 09/15/18 04:31 Iron 26 ug/dL (49-181) L 09/07/18 10:38 TIBC 212 mcg/dL (250-450) L 09/07/18 10:38 Ferritin 2762.0 ng/mL (13.0-400.0) H 09/07/18 10:38 Total Bilirubin < 0.20 mg/dL (0.1-1.2) 09/12/18 12:28 Direct Bilirubin < 0.2 mg/dL (0-0.2) 09/08/18 13:43 Indirect Bilirubin 0.0 mg/dL 09/06/18 10:40 AST 126 units/L (5-40) H 09/12/18 12:28 ALT 77 units/L (7-56) H 09/12/18 12:28 Alkaline Phosphatase 124 units/L (35-129) 09/12/18 12:28 Ammonia 51.0 umol/L (25-60) 09/12/18 12:28 Total Creatine Kinase 101 units/L (55-170) 09/04/18 21:00 Troponin T < 0.010 ng/mL (0.00-0.029) 09/10/18 12:14 Total Protein 5.7 g/dL (6.3-8.2) L 09/12/18 12:28 Albumin 2.6 g/dL (3.9-5) L 09/12/18 12:28 Albumin/Globulin Ratio 0.8 % 09/12/18 12:28 TSH 0.960 mlU/mL (0.270-4.200) 09/04/18 21:00 Urine Color Yellow (Yellow) 09/04/18 23:30 Urine Turbidity Clear (Clear) 09/04/18 23:30 Urine pH 6.0 (5.0-7.0) 09/04/18 23:30 Ur Specific [place] 1.012 (1.003-1.030) 09/04/18 23:30 Urine Protein <15 mg/dl mg/dL (Negative) 09/04/18 23:30 Urine Glucose (UA) Neg mg/dL (Negative) 09/04/18 23:30 Urine Ketones Neg mg/dL (Negative) 09/04/18 23:30 Urine Blood Neg (Negative) 09/04/18 23:30 Urine Nitrite Neg (Negative) 09/04/18 23:30 Urine Bilirubin Neg (Negative) 09/04/18 23:30 Urine Urobilinogen < 2.0 mg/dL (<2.0) 09/04/18 23:30 Ur Leukocyte Esterase Neg (Negative) 09/04/18 23:30 Urine WBC (Auto) 1.0 /HPF (0.0-6.0) 09/04/18 23:30 Urine RBC (Auto) 2.0 /HPF (0.0-6.0) 09/04/18 23:30 Urine Bacteria (Auto) 1+ /HPF (Negative) 09/04/18 23:30 Urine Mucus Few /HPF 09/04/18 23:30 Urine Opiates Screen Presumptive negative 09/04/18 23:30 Urine Methadone Screen Presumptive negative 09/04/18 23:30 Ur Barbiturates Screen Presumptive negative 09/04/18 23:30 Ur Phencyclidine Scrn Presumptive negative 09/04/18 23:30 Ur Amphetamines Screen Presumptive negative 09/04/18 23:30 U Benzodiazepines Scrn Presumptive negative 09/04/18 23:30 Urine Cocaine Screen Presumptive negative 09/04/18 23:30 U Marijuana (THC) Screen Presumptive negative 09/04/18 23:30 Drugs of Abuse Note Disclamer 09/04/18 23:30 Plasma/Serum Alcohol < 0.01 % (0-0.07) 09/04/18 21:00 JAMEEL Screen Negative (Negative) 09/05/18 16:19 Sm ([place]) Antibody <1.0 AI (<1.0) 09/05/18 16:19 Mitochondria M2 Ab <=20.0 U (<=20.0) 09/05/18 16:19 CMV DNA PCR log marketing copywriter/mL See scanned results 09/08/18 16:50 Hepatitis A IgM Ab Non-reactive (NonReactive) 09/08/18 06:39 Hep Bs Antigen Non-reactive (Negative) 09/08/18 06:39 Hep B Core IgM Ab Non-reactive (NonReactive) 09/08/18 06:39 Hepatitis C Antibody Non-reactive (NonReactive) 09/08/18 06:39 Miscellaneous Test Flexitest 1 09/09/18 07:03 Active Medications - Current Medications Current Medications: Generic Name Dose Route Start Last Admin Trade Name Freq PRN Reason Stop Dose Admin Acetaminophen 650 mg 09/05/18 02:48 09/09/18 06:44 Tylenol PO 650 mg Q4H PRN Administration Pain MILD(1-3)/Fever >100.5/VILLAREAL Acetaminophen/Hydrocodone Bitart 1 each 09/05/18 02:48 [place] 5/325 PO Q4H PRN Pain, Moderate (4-6) Aspirin 81 mg 09/09/18 17:00 09/16/18 09:40 Baby Aspirin PO 81 mg QDAY GLEN Administration Enoxaparin Sodium 40 mg 09/05/18 10:00 09/16/18 09:41 Lovenox SUB-Q Not Given QDAY GLEN Famotidine 10 mg 09/05/18 10:00 09/16/18 09:40 Pepcid IV 10 mg BID GLEN Administration Sodium Chloride 1,000 mls @ 100 mls/hr 09/16/18 08:00 Nacl 0.9% 1000 Ml IV DIRECT GLEN Midodrine 10 mg 09/05/18 19:00 09/16/18 12:18 Proamatine PO 10 mg TID@0800,1200,1600 GLEN Administration Nystatin 500,000 unit 09/10/18 20:00 09/16/18 09:40 Nystatin PO 500,000 unit TID GLEN Administration Ondansetron HCl 4 mg 09/05/18 02:48 09/10/18 13:06 Zofran IV 4 mg Q8H PRN Administration Nausea And Vomiting Sodium Chloride 10 ml 09/05/18 10:00 09/16/18 09:41 Sodium Chloride Flush Syringe 10 Ml IV 10 ml BID GLEN Administration Sodium Chloride 10 ml 09/05/18 02:48 Sodium Chloride Flush Syringe 10 Ml IV PRN PRN LINE FLUSH Trimethoprim/Sulfamethoxazole 1 each 09/14/18 10:00 09/16/18 09:41 Bactrim Ds PO 1 each DAILY GLEN Administration Nutrition/Malnutrition Assess - Dietary Evaluation Nutrition/Malnutrition Findings: Nutrition Notes Start: 09/06/18 15:57 Freq: Status: Active Protocol: Document 09/14/18 15:00 LM (Rec: 09/14/18 15:07 LM [id number]) Co-Sign 09/14/18 15:00 LP Nutrition Notes Initial or Follow up Reassessment Other Pertinent Diagnosis HIV/AIDS, encephalopathy, noncompliance Labs/Tests Reviewed Pertinent Medications Reviewed Height 5 ft 3 in Weight 46 kg [place] Body Weight (kg) 56.36 BMI 17.9 Subjective/Other Information Pt was reluctant to answer questions. Pt stated he has no appetite and did not eat breakfast. Patient stated he was not drinking ONS. Pt not started on appetite stimulant. Hospice being considered for hospice. Percent of energy/protein needs met: 0%/0% Burn Absent Trauma Absent #1 Nutrition Diagnosis Malnutrition Diagnosis Progress(for reassessment Continues documentation) Is patient on ventilator? No Is Patient Ambulatory and/or Out of Bed No REE-([facility]o-confined to bed) [phone] Calculation Used for Recommendations [facility] Additional Notes Pro needs 1.2-1.5g/k-69 g /day Fluid needs 1ml/kcal Nutrition Intervention Change Diet Order: Continue current Add Supplement/Snack (indicate name/kcal D/C /protein ) Goal #1 Meet at least 75% of calorie and protein needs Anticipated Discharge Needs: Regular diet Follow-Up By: 09/17/18 Additional Comments F/U: intakes
--- NOTE | 2018-09-16 17:11 | Progress Note ---
Assessment and Plan Severe sepsis on background of chronic hypotension AMS due to acute metabolic encephalopathy HIV/AIDS Panycytopenia Severe protein calorie malnutrition Transaminitis -may be due to ischemic hepatitis, HIV/AIDS hepatopathy, infectious etiology with viral hepatitis, vs drug toxicity. Anemia of chronic disease Acute Renal Failure, resolved Oral Candidiasis Non-adherence to medical therapy Hyperammonemia Metabolic acidosis -Continue with gentle IVF, with boluses as needed He is encephaloapthic with the hypotension, which is a change from baseline for him Monitor respiratory status during fluid resuscitation -Continue midodrine -Anti-infective per ID service -Nutritional support, discussed possibility of nutritional supplements -SCDs for VTE prophylaxis, patient declines pharmacologic prophylaxis -PT/OT to evaluate and treat -Limit blood draws, in view of anemia -Patient's blood pressure is at baseline, at this time there is no indication for vasopressor support If the need arises, start on norepinephrine and titrate to MAP >60 -Supportive transfusions as indicated -Mobility for pressure ulcer prevention. Discussed with hospitalist service Discussed with ICU team during the bedside IDT rounds CONDITION: CRITICAL PROGNOSIS: GUARDED CODE STATUS: FULL CODE Subjective Date of service: 09/16/18 Principal diagnosis: elevated LFTs, oral candidiasis Interval history: Patient is seen today for: severe sepsis, hypotension, acute encephaloapthy, HIV-AIDS Seen and examined at bedside; 24-hour events reviewed; nursing and respiratory care staff consulted; no adverse overnight events reported to me; Transferred from the general medical floor to the ICU for hypotension not responsive to fluid resuscitation and mental status changes. Vasopressor support being considered Blood pressure is labile, but patient remains asymptomatic. He denies any fevers, no chills. Appetite is poor. He has a flat affect, with very slow responses Denies any chest pain, no shortness of breath. Objective - Exam Narrative Exam: General appearance: Somnolent, cachetic, chronically ill looking Eyes: anicteric sclerae, moist conjunctivae; no lid-lag; PERRLA HENT: Atraumatic; normoephalic, dry oral mucosa, thrush Neck: Trachea midline; supple, no thyromegaly or lymphadenopathy Lungs: CTA, with mild increase in respiratory effort and no intercostal retractions CV: RRR, no murmurs, S1,S2 Abdomen: Soft, non-tender; no masses or hepatosplenomegaly Extremities: no edema, no cyanosis, no clubbing Skin: Normal temperature, turgor and texture; no rash, ulcers or subcutaneous nodules Psych: no agitated. Neuro: somnloent but rousable, slow responses to questions Vital Signs - 12hr 09/16/18 09/16/18 07:57 11:42 Temperature 97.8 F 97.7 F Pulse Rate 64 67 Respiratory 12 20 Rate Blood Pressure 76/43 90/56 O2 Sat by Pulse 99 98 Oximetry Constitutional: no acute distress, alert, other (Weak) Eyes: non-icteric ENT: oropharynx moist Neck: supple, no lymphadenopathy Ascultation: Bilateral: diminished breath sounds, other (Prolonged expiratory phase.) Cardiovascular: regular rate and rhythm Gastrointestinal: normoactive bowel sounds, soft, non-tender Integumentary: normal Extremities: no cyanosis, no edema Neurologic: other (Patient is sleeping.) Psychiatric: other (Patient sleeping.) CBC and BMP: 10/02/18 06:00 10/02/18 06:00 ABG, PT/INR, D-dimer: PT/INR, D-dimer PT 15.1 Sec. (12.2-14.9) H 09/11/18 05:22 INR 1.12 (0.87-1.13) 09/11/18 05:22 Abnormal lab findings: Abnormal Labs 09/04/18 09/04/18 09/04/18 21:00 21:00 22:32 WBC RBC 3.23 L Hgb 9.6 L Hct 28.9 L RDW 18.8 H Plt Count Lymph % (Auto) [place] % (Auto) 12.5 H Lymph # 0.7 L Seg Neutrophils % 72.4 H Seg Neuts % (Manual) Lymphocytes % (Manual) Monocytes % (Manual) Seg Neutrophils # Man Lymphocytes # (Manual) PT Sodium Potassium Chloride 109.9 H Carbon Dioxide 21 L BUN 31 H Creatinine Glucose Lactic Acid 2.40 H* Calcium 8.2 L Iron TIBC Ferritin AST 200 H ALT 136 H Alkaline Phosphatase 138 H Ammonia Total Protein Albumin 3.5 L 09/04/18 09/05/18 09/05/18 22:32 16:19 16:19 WBC RBC Hgb Hct RDW Plt Count Lymph % (Auto) [place] % (Auto) Lymph # Seg Neutrophils % Seg Neuts % (Manual) Lymphocytes % (Manual) Monocytes % (Manual) Seg Neutrophils # Man Lymphocytes # (Manual) PT Sodium Potassium Chloride 112.4 H Carbon Dioxide 19 L BUN Creatinine Glucose Lactic Acid Calcium 8.1 L Iron TIBC 223 L Ferritin AST 241 H ALT 138 H Alkaline Phosphatase Ammonia 64.0 H Total Protein Albumin 3.1 L 09/05/18 09/06/18 09/06/18 16:19 10:40 10:40 WBC 2.4 L RBC 2.67 L Hgb 7.7 L Hct 23.7 L RDW 18.7 H Plt Count 135 L Lymph % (Auto) 10.0 L [place] % (Auto) 8.4 H Lymph # 0.2 L Seg Neutrophils % 81.1 H Seg Neuts % (Manual) Lymphocytes % (Manual) Monocytes % (Manual) Seg Neutrophils # Man Lymphocytes # (Manual) PT Sodium Potassium Chloride 112.1 H Carbon Dioxide 19 L BUN Creatinine 0.7 L Glucose Lactic Acid Calcium 7.8 L Iron TIBC Ferritin 2880.0 H AST 263 H ALT 143 H Alkaline Phosphatase Ammonia Total Protein 6.1 L Albumin 2.8 L 09/07/18 09/07/18 09/08/18 10:38 10:38 06:39 WBC RBC 2.86 L Hgb 8.3 L Hct 25.2 L RDW 18.3 H Plt Count 123 L Lymph % (Auto) 6.1 L [place] % (Auto) Lymph # 0.3 L Seg Neutrophils % 87.3 H Seg Neuts % (Manual) Lymphocytes % (Manual) Monocytes % (Manual) Seg Neutrophils # Man Lymphocytes # (Manual) PT Sodium Potassium Chloride Carbon Dioxide BUN Creatinine Glucose Lactic Acid Calcium Iron 26 L TIBC 212 L Ferritin 2762.0 H AST ALT Alkaline Phosphatase Ammonia Total Protein Albumin 09/08/18 09/08/18 09/09/18 06:39 13:43 07:03 WBC RBC Hgb Hct RDW Plt Count Lymph % (Auto) [place] % (Auto) Lymph # Seg Neutrophils % Seg Neuts % (Manual) Lymphocytes % (Manual) Monocytes % (Manual) Seg Neutrophils # Man Lymphocytes # (Manual) PT Sodium Potassium 3.2 L 3.5 L Chloride 111.9 H 108.6 H Carbon Dioxide 13 L 15 L BUN 6 L 4 L Creatinine Glucose 118 H Lactic Acid Calcium 7.5 L 7.5 L Iron TIBC Ferritin AST 117 H 130 H ALT 87 H 86 H Alkaline Phosphatase Ammonia Total Protein 5.6 L 6.0 L Albumin 2.6 L 2.6 L 09/09/18 09/10/18 09/10/18 07:31 04:26 04:26 WBC 3.5 L 2.1 L RBC 2.82 L 3.10 L Hgb 8.2 L 9.0 L Hct 24.6 L 27.1 L RDW 18.8 H 18.6 H Plt Count 136 L 139 L Lymph % (Auto) [place] % (Auto) Lymph # Seg Neutrophils % Seg Neuts % (Manual) 77.0 H Lymphocytes % (Manual) 11.0 L Monocytes % (Manual) 11.0 H Seg Neutrophils # Man 1.6 L Lymphocytes # (Manual) 0.2 L PT Sodium Potassium Chloride 112.7 H Carbon Dioxide 14 L BUN 5 L Creatinine Glucose 109 H Lactic Acid Calcium 7.7 L Iron TIBC Ferritin AST 110 H ALT 76 H Alkaline Phosphatase Ammonia Total Protein 6.0 L Albumin 2.8 L 09/11/18 09/12/18 09/13/18 05:22 12:28 07:23 WBC 1.1 L* RBC 2.82 L Hgb 8.2 L Hct 25.5 L RDW 19.5 H Plt Count 103 L Lymph % (Auto) [place] % (Auto) Lymph # Seg Neutrophils % Seg Neuts % (Manual) Lymphocytes % (Manual) Monocytes % (Manual) 18.0 H Seg Neutrophils # Man 0.6 L Lymphocytes # (Manual) 0.3 L PT 15.1 H Sodium 133 L Potassium 3.5 L Chloride 108.8 H Carbon Dioxide 14 L BUN 6 L Creatinine Glucose 123 H Lactic Acid Calcium 7.4 L Iron TIBC Ferritin AST 126 H ALT 77 H Alkaline Phosphatase Ammonia Total Protein 5.7 L Albumin 2.6 L 09/15/18 09/15/18 00:51 04:31 WBC 1.2 L* RBC 3.38 L Hgb 9.7 L Hct 29.5 L RDW 19.0 H Plt Count 95 L Lymph % (Auto) [place] % (Auto) Lymph # Seg Neutrophils % Seg Neuts % (Manual) Lymphocytes % (Manual) Monocytes % (Manual) 24.0 H Seg Neutrophils # Man 0.6 L Lymphocytes # (Manual) 0.3 L PT Sodium Potassium Chloride 112.0 H Carbon Dioxide 13 L BUN Creatinine Glucose 65 L Lactic Acid Calcium Iron TIBC Ferritin AST ALT Alkaline Phosphatase Ammonia Total Protein Albumin
[2018-09-17] MEDS: NYSTATIN PO SCH ×5 (08:22→20:47)
[2018-09-17] MEDS: PEPCID IV SCH ×3 (10:23→22:16)
[2018-09-17] MEDS: PROAMATINE PO SCH ×3 (10:43→16:38)
--- NOTE | 2018-09-17 10:44 | Progress Note ---
Assessment and Plan Culture 09/08/2018 Blood culture: no growth 09/08/2018 Serum Cr Ag: negative 09/09/2018 Blood culture: no growth thus far Fungal blood culture: in process A/P: 42 year old male, know to ID from previous admissions on 06/23/18-06/19/18 and 07/18/18- 08/04/18 for pneumonia, HIV/AIDS, severe oral candidiasis and diarrhea. CD4 count 11. Viral Load [id number]. HIV genotype 06/18/2018 with few resistance mutations. CMV negative. Patient remains noncompliant with his HAART therapy. Now admitted with: 1. Altered Mental Status/Acute encephalopathy: Back to baseline. 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 CT head shows no acute intracranial abnormality. + chronic maxillary and ethmoid sinusitis. MRI images showing brain atrophy, no focal lesions to suggest toxoplasma, PML, ventriculitis, TURF FARMER lymphoma or other space occupying lesions. Crypto Ag is negative. TTE shows no valvular vegetation, EF 30-35 %. -Fungitell: negative -CMV DNR - <200 2. Oral Candidiasis: h/o resistant Carolann. improved. Continue Nystatin 3. HIV/AIDS: Last admission in June CD4 count 11. Viral load high. Remains non-compliant. Prognosis is poor. 4. Severe Malnutrition: related to HIV AIDS 5. Transaminitis: elevated liver enzymes from last admission. Abdominal ultrasound unremarkable. CT abdomen showing possible enteritis and somewhat inhomogenous liver. may be due to ischemic hepatitis, HIV/AIDS hepatopathy, infectious etiology with viral hepatitis, vs drug toxicity- GI following. Stable to improving. Evaluating for disseminated MAC, fungal/mycolytic blood cultures in process. HAV, HBV, HCV - nonreactive 6. New Fevers : Improved. 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 CAP vs PCP: Chest CT shows Bilateral pneumonia with findings most prominent in the left lower lobe as described. Bronchiectatic changes in left lower lobe noted also. Scattered blebs in the left lung. Fungitell negative, so PCP quite less likely. bilateral ground glass opacities could be fluid given cardiomyopathy and low EF. 8. Leukopenia: ?Bactrim related. Plan: -continue nystatin swish and swallow -continue Bactrim to 1 DS daily -f/u AFB fungal blood culture -f/u SNF placement per case management -Plan to start HIV medication prior to discharge to SNF Dr. Carranza will be sap security consultant on Thursday [phone], Dr. Ryder will be making rounds on Thursday [phone], please call for questions. [facility] M: [phone] O:[phone] Subjective Date of service: 09/17/18 Principal diagnosis: elevated LFTs, oral candidiasis Interval history: Patient seen and examined. Denies pain or SOB. No fevers. Mostly non- conversant. Objective - Exam Narrative Exam: Constitutional: Awake. Alert. no acute distress.. cachexia Head, Ears, Nose: Normocephalic, atraumatic. External ears, nose normal Eyes: Conjunctivae/corneas clear. No icterus. No ptosis. Neck: Supple, no meningeal signs Oral: dentition poor. , Oral thrush improved Cardiovascular: S1, S2 normal. Respiratory: Good air entry, clear to auscultation bilaterally GI: Soft, non-tender; bowel sounds normal. No peritoneal signs Musculoskeletal: No pedal edema, no cyanosis. Skin: No rash or abscess. Hem/Lymphatic: No palpable cervical or supraclavicular nodes. No lymphangitis Psych: Mood ok. Affect flat, non conversant Neurological: Awake. Alert. no acute distress - Constitutional Vitals: Vital Signs Temp Pulse Resp BP Pulse Ox 97.9 F 81 16 96/58 98 09/17/18 04:08 09/17/18 04:08 09/17/18 04:08 09/17/18 04:08 09/17/18 04:08 Temperature -Last 24 Hours Temperature 97.9 F Temperature 98.8 F Temperature 98.7 F Temperature 98.8 F Temperature 97.7 F - Labs CBC & Chem 7: 09/17/18 10:52 09/15/18 04:31
[2018-09-17] MEDS: BACTRIM DS PO SCH (10:46)
[2018-09-17] MEDS: LOVENOX SUB-Q SCH (10:46)
[2018-09-17] MEDS: BABY ASPIRIN PO SCH (10:46)
[2018-09-17 11:10] LABS: Hematocrit 27.2 % (35.5-45.6); Hemoglobin 8.9 gm/dl (11.8-15.2); Mean Corpuscular HGB Conc 33 % (32-34); Mean Corpuscular Volume 90 fl (84-94); Red Blood Count 3.03 M/mm3 (3.65-5.03); Red Cell Distribution Width 19.5 % (13.2-15.2)
[2018-09-17 11:12] LABS: Platelet Count 59 K/mm3 (140-440)
--- NOTE | 2018-09-17 11:12 | Progress Note ---
Assessment and Plan Assessment and plan: Patient is a 42 yo man with a history of HIV/AIDs and anemia who presented to [facility] ED with AMS on 09/04/18. Patient was just discharged from here on 08/04/2018 for sepsis, LLL, lingula pneumonia and severe oral candidiasis * CT chest wo contrast IMPRESSION: Bilateral pneumonia with findings most prominent in the left lower lobe as described. Bronchiectatic changes in left lower lobe noted also. Scattered blebs in the left lung.. * GB Ultrasound IMPRESSION: The gallbladder lumen is contracted. The common bile duct is normal measuring 2 mm. * CT head without contrast Impression: No acute intracranial abnormality, chronic maxillary and ethmoid sinusitis -Hypotension, acute on chronic hypotension, bp has been low since Jun 2018 (as far as our records go), so I don't believe the chronic hypotension is sepsis related, his effective circulatory volume is low due to his malnutrition from severe HIV/AIDs which causing the pancytopenia, severe malnutrition, oral thrush, etc... Cardiology and ID recommends Hospice, but patient refuses. 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: consulted ID -Worsening Transaminitis: consulted GI, cmp daily, reviewed GB ultrasound -AOCD: monitor cbc daily -Severe Malnutrition: consulted Wheat Farmer -Acute Renal Failure, vasomotor nephropathy, poa, Cr is 1.0, up from baseline of 0.5: repeat BMP in am -Oral Candidiasis, treated, tolerating a diet, will monitor, GI evaluated -Non-adherence to medical therapy: counseling done -Lactic acidosis, Resolved status post IV hydration -Metabolic acidosis: On IV fluid, will monitor bicarbonate level -Hyperammonemia-Lactulose ordered but patient refuses DVT prophylaxis with Lovenox but pt is refusing, counseling done again Disposition: continue inpatient care IV line out and Patient refusing new iv line, I had to speak with him and he agree then I gave him a bolus of NSS. We spoke about hospice and compliance. He denies SI/HI but would not answered about being depressed. I will consult Mental health for possible depression. Patient is refusing to engage in psych evaluation. Mother did not come to discuss hospice and overall care, Trying to get to SNF, [facility] SNF has accepted but waiting for medicaid verification from patient. History Interval history: Patient was seen and examined. Follow-up on current diagnosis of hypotension. Overnight uneventful. Patient denies any chest pain, shortness breath, nausea/vomiting or severe headaches. Imaging, nursing note, chart, labs and old chart reviewed. Discussed with patient. Hospitalist Physical - Physical exam Narrative exam: Gen: cachetic, unkempt, NAD, Awake, Alert, Orientated x 3 HEENT: NCAT, EOMI, PERRL, OP dry and crusty, whitish Neck: supple, no adenopathy, no thyromegaly, no JVD CVS/Heart: RRR, normal S1S2, pulses present bilaterally Chest/Lungs: CTA B, Symmetrical chest expansion, good air entry bilaterally GI/Abdomen: soft, NTND, good bowel sounds, no guarding or rebound /Bladder: no suprapubic tenderness, no CVA or paraspinal tenderness Extermity/Skin: no c/c/e, no obvious rash MSK: FROM x 4 Neuro: CN 2-12 grossly intact, no new focal deficits Psych: calm - Constitutional Vitals: Temp Pulse Resp BP Pulse Ox 97.9 F 81 16 96/58 98 09/17/18 04:08 09/17/18 04:08 09/17/18 04:08 09/17/18 04:08 09/17/18 04:08 General appearance: Present: no acute distress, well-nourished Results - Labs CBC & Chem 7: 09/15/18 00:51 09/15/18 04:31 Labs: Laboratory Last Values WBC 1.2 K/mm3 (4.5-11.0) L* 09/15/18 00:51 RBC 3.38 M/mm3 (3.65-5.03) L 09/15/18 00:51 Hgb 9.7 gm/dl (11.8-15.2) L 09/15/18 00:51 Hct 29.5 % (35.5-45.6) L 09/15/18 00:51 MCV 87 fl (84-94) 09/15/18 00:51 MCH 29 pg (28-32) 09/15/18 00:51 MCHC 33 % (32-34) 09/15/18 00:51 RDW 19.0 % (13.2-15.2) H 09/15/18 00:51 Plt Count 95 K/mm3 (140-440) L 09/15/18 00:51 Lymph % (Auto) 6.1 % (13.4-35.0) L 09/08/18 06:39 Mcdonald % (Auto) [place] 09/15/18 00:51 Eos % (Auto) 0.0 % (0.0-4.3) 09/08/18 06:39 Baso % (Auto) 0.2 % (0.0-1.8) 09/08/18 06:39 Lymph # 0.3 K/mm3 (1.2-5.4) L 09/08/18 06:39 Mcdonald # 0.3 K/mm3 (0.0-0.8) 09/08/18 06:39 Eos # 0.0 K/mm3 (0.0-0.4) 09/08/18 06:39 Baso # 0.0 K/mm3 (0.0-0.1) 09/08/18 06:39 Add Manual Diff Complete 09/15/18 00:51 Total Counted 100 09/15/18 00:51 Seg Neutrophils % 87.3 % (40.0-70.0) H 09/08/18 06:39 Seg Neuts % (Manual) 50.0 % (40.0-70.0) 09/15/18 00:51 Band Neutrophils % 0 % 09/15/18 00:51 Lymphocytes % (Manual) 26.0 % (13.4-35.0) 09/15/18 00:51 Reactive Lymphs % (Man) 0 % 09/15/18 00:51 Monocytes % (Manual) 24.0 % (0.0-7.3) H 09/15/18 00:51 Eosinophils % (Manual) 0 % (0.0-4.3) 09/15/18 00:51 Basophils % (Manual) 0 % (0.0-1.8) 09/15/18 00:51 Metamyelocytes % 0 % 09/15/18 00:51 Myelocytes % 0 % 09/15/18 00:51 Promyelocytes % 0 % 09/15/18 00:51 Blast Cells % 0 % 09/15/18 00:51 Nucleated RBC % Not Reportable 09/15/18 00:51 Seg Neutrophils # 4.5 K/mm3 (1.8-7.7) 09/08/18 06:39 Seg Neutrophils # Man 0.6 K/mm3 (1.8-7.7) L 09/15/18 00:51 Band Neutrophils # 0.0 K/mm3 09/15/18 00:51 Lymphocytes # (Manual) 0.3 K/mm3 (1.2-5.4) L 09/15/18 00:51 Abs React Lymphs (Man) 0.0 K/mm3 09/15/18 00:51 Monocytes # (Manual) 0.3 K/mm3 (0.0-0.8) 09/15/18 00:51 Eosinophils # (Manual) 0.0 K/mm3 (0.0-0.4) 09/15/18 00:51 Basophils # (Manual) 0.0 K/mm3 (0.0-0.1) 09/15/18 00:51 Metamyelocytes # 0.0 K/mm3 09/15/18 00:51 Myelocytes # 0.0 K/mm3 09/15/18 00:51 Promyelocytes # 0.0 K/mm3 09/15/18 00:51 Blast Cells # 0.0 K/mm3 09/15/18 00:51 WBC Morphology Not Reportable 09/15/18 00:51 Hypersegmented Neuts Not Reportable 09/15/18 00:51 Hyposegmented Neuts Not Reportable 09/15/18 00:51 Hypogranular Neuts Not Reportable 09/15/18 00:51 Smudge Cells Not Reportable 09/15/18 00:51 Toxic Granulation Not Reportable 09/15/18 00:51 Toxic Vacuolation Not Reportable 09/15/18 00:51 Dohle Bodies Not Reportable 09/15/18 00:51 Pelger-Huet Anomaly Not Reportable 09/15/18 00:51 Giovanni Rods Not Reportable 09/15/18 00:51 Platelet Estimate Not Reportable 09/15/18 00:51 Clumped Platelets Not Reportable 09/15/18 00:51 Plt Clumps, EDTA Not Reportable 09/15/18 00:51 Large Platelets Not Reportable 09/15/18 00:51 Giant Platelets Not Reportable 09/15/18 00:51 Platelet Satelliting Not Reportable 09/15/18 00:51 Plt Morphology Comment Not Reportable 09/15/18 00:51 RBC Morphology Normal 09/15/18 00:51 Dimorphic RBCs Not Reportable 09/15/18 00:51 Polychromasia Not Reportable 09/15/18 00:51 Hypochromasia Not Reportable 09/15/18 00:51 Poikilocytosis Not Reportable 09/15/18 00:51 Anisocytosis Not Reportable 09/15/18 00:51 Microcytosis Not Reportable 09/15/18 00:51 Macrocytosis Not Reportable 09/15/18 00:51 Spherocytes Not Reportable 09/15/18 00:51 Pappenheimer Bodies Not Reportable 09/15/18 00:51 Sickle Cells Not Reportable 09/15/18 00:51 Target Cells Not Reportable 09/15/18 00:51 Tear Drop Cells Not Reportable 09/15/18 00:51 Ovalocytes Not Reportable 09/15/18 00:51 Helmet Cells Not Reportable 09/15/18 00:51 [place] Bodies Not Reportable 09/15/18 00:51 [place] Rings Not Reportable 09/15/18 00:51 Cinthya Cells Not Reportable 09/15/18 00:51 Bite Cells Not Reportable 09/15/18 00:51 Crenated Cell Not Reportable 09/15/18 00:51 Elliptocytes Not Reportable 09/15/18 00:51 Acanthocytes (Spur) Not Reportable 09/15/18 00:51 Rouleaux Not Reportable 09/15/18 00:51 Hemoglobin C Crystals Not Reportable 09/15/18 00:51 Schistocytes Not Reportable 09/15/18 00:51 Malaria parasites Not Reportable 09/15/18 00:51 Carlos A Bodies Not Reportable 09/15/18 00:51 Hem Pathologist Commnt No 09/15/18 00:51 PT 15.1 Sec. (12.2-14.9) H 09/11/18 05:22 INR 1.12 (0.87-1.13) 09/11/18 05:22 Sodium 140 mmol/L (137-145) D 09/15/18 04:31 Potassium 3.9 mmol/L (3.6-5.0) 09/15/18 04:31 Chloride 112.0 mmol/L (98-107) H 09/15/18 04:31 Carbon Dioxide 13 mmol/L (22-30) L 09/15/18 04:31 Anion Gap 19 mmol/L 09/15/18 04:31 BUN 15 mg/dL (9-20) 09/15/18 04:31 Creatinine 1.3 mg/dL (0.8-1.5) 09/15/18 04:31 Estimated GFR > 60 ml/min 09/15/18 04:31 BUN/Creatinine Ratio 12 % 09/15/18 04:31 Glucose 65 mg/dL (75-100) L 09/15/18 04:31 POC Glucose 91 (70-105) 09/09/18 07:18 Lactic Acid 1.30 mmol/L (0.7-2.0) 09/05/18 03:50 Calcium 8.6 mg/dL (8.4-10.2) D 09/15/18 04:31 Iron 26 ug/dL (49-181) L 09/07/18 10:38 TIBC 212 mcg/dL (250-450) L 09/07/18 10:38 Ferritin 2762.0 ng/mL (13.0-400.0) H 09/07/18 10:38 Total Bilirubin < 0.20 mg/dL (0.1-1.2) 09/12/18 12:28 Direct Bilirubin < 0.2 mg/dL (0-0.2) 09/08/18 13:43 Indirect Bilirubin 0.0 mg/dL 09/06/18 10:40 AST 126 units/L (5-40) H 09/12/18 12:28 ALT 77 units/L (7-56) H 09/12/18 12:28 Alkaline Phosphatase 124 units/L (35-129) 09/12/18 12:28 Ammonia 51.0 umol/L (25-60) 09/12/18 12:28 Total Creatine Kinase 101 units/L (55-170) 09/04/18 21:00 Troponin T < 0.010 ng/mL (0.00-0.029) 09/10/18 12:14 Total Protein 5.7 g/dL (6.3-8.2) L 09/12/18 12:28 Albumin 2.6 g/dL (3.9-5) L 09/12/18 12:28 Albumin/Globulin Ratio 0.8 % 09/12/18 12:28 TSH 0.960 mlU/mL (0.270-4.200) 09/04/18 21:00 Urine Color Yellow (Yellow) 09/04/18 23:30 Urine Turbidity Clear (Clear) 09/04/18 23:30 Urine pH 6.0 (5.0-7.0) 09/04/18 23:30 Ur Specific [place] 1.012 (1.003-1.030) 09/04/18 23:30 Urine Protein <15 mg/dl mg/dL (Negative) 09/04/18 23:30 Urine Glucose (UA) Neg mg/dL (Negative) 09/04/18 23:30 Urine Ketones Neg mg/dL (Negative) 09/04/18 23:30 Urine Blood Neg (Negative) 09/04/18 23:30 Urine Nitrite Neg (Negative) 09/04/18 23:30 Urine Bilirubin Neg (Negative) 09/04/18 23:30 Urine Urobilinogen < 2.0 mg/dL (<2.0) 09/04/18 23:30 Ur Leukocyte Esterase Neg (Negative) 09/04/18 23:30 Urine WBC (Auto) 1.0 /HPF (0.0-6.0) 09/04/18 23:30 Urine RBC (Auto) 2.0 /HPF (0.0-6.0) 09/04/18 23:30 Urine Bacteria (Auto) 1+ /HPF (Negative) 09/04/18 23:30 Urine Mucus Few /HPF 09/04/18 23:30 Urine Opiates Screen Presumptive negative 09/04/18 23:30 Urine Methadone Screen Presumptive negative 09/04/18 23:30 Ur Barbiturates Screen Presumptive negative 09/04/18 23:30 Ur Phencyclidine Scrn Presumptive negative 09/04/18 23:30 Ur Amphetamines Screen Presumptive negative 09/04/18 23:30 U Benzodiazepines Scrn Presumptive negative 09/04/18 23:30 Urine Cocaine Screen Presumptive negative 09/04/18 23:30 U Marijuana (THC) Screen Presumptive negative 09/04/18 23:30 Drugs of Abuse Note Disclamer 09/04/18 23:30 Plasma/Serum Alcohol < 0.01 % (0-0.07) 09/04/18 21:00 JAMEEL Screen Negative (Negative) 09/05/18 16:19 Sm (Starkey) Antibody <1.0 AI (<1.0) 09/05/18 16:19 Mitochondria M2 Ab <=20.0 U (<=20.0) 09/05/18 16:19 CMV DNA PCR log electron microscopist/mL See scanned results 09/08/18 16:50 Hepatitis A IgM Ab Non-reactive (NonReactive) 09/08/18 06:39 Hep Bs Antigen Non-reactive (Negative) 09/08/18 06:39 Hep B Core IgM Ab Non-reactive (NonReactive) 09/08/18 06:39 Hepatitis C Antibody Non-reactive (NonReactive) 09/08/18 06:39 Miscellaneous Test Flexitest 1 09/09/18 07:03 Active Medications - Current Medications Current Medications: Generic Name Dose Route Start Last Admin Trade Name Freq PRN Reason Stop Dose Admin Acetaminophen 650 mg 09/05/18 02:48 09/09/18 06:44 Tylenol PO 650 mg Q4H PRN Administration Pain MILD(1-3)/Fever >100.5/VILLAREAL Acetaminophen/Hydrocodone Bitart 1 each 09/05/18 02:48 Ivel 5/325 PO Q4H PRN Pain, Moderate (4-6) Aspirin 81 mg 09/09/18 17:00 09/17/18 10:46 Baby Aspirin PO 81 mg QDAY GLEN Administration Enoxaparin Sodium 40 mg 09/05/18 10:00 09/17/18 10:46 Lovenox SUB-Q Not Given QDAY GLEN Famotidine 10 mg 09/05/18 10:00 09/17/18 10:46 Pepcid IV 10 mg BID GLEN Administration Sodium Chloride 1,000 mls @ 100 mls/hr 09/16/18 08:00 09/16/18 22:32 Nacl 0.9% 1000 Ml IV 100 mls/hr DIRECT GLEN Administration Midodrine 10 mg 09/05/18 19:00 09/17/18 10:43 Proamatine PO 10 mg TID@0800,1200,1600 GLEN Administration Nystatin 500,000 unit 09/10/18 20:00 09/17/18 10:42 Nystatin PO 500,000 unit TID GLEN Administration Ondansetron HCl 4 mg 09/05/18 02:48 09/10/18 13:06 Zofran IV 4 mg Q8H PRN Administration Nausea And Vomiting Sodium Chloride 10 ml 09/05/18 10:00 09/16/18 22:32 Sodium Chloride Flush Syringe 10 Ml IV 10 ml BID GLEN Administration Sodium Chloride 10 ml 09/05/18 02:48 Sodium Chloride Flush Syringe 10 Ml IV PRN PRN LINE FLUSH Trimethoprim/Sulfamethoxazole 1 each 09/14/18 10:00 09/17/18 10:46 Bactrim Ds PO 1 each DAILY GLEN Administration Nutrition/Malnutrition Assess - Dietary Evaluation Nutrition/Malnutrition Findings: Nutrition Notes Start: 09/06/18 15:57 Freq: Status: Active Protocol: Document 09/14/18 15:00 LM (Rec: 09/14/18 15:07 LM [id number]) Co-Sign 09/14/18 15:00 LP Nutrition Notes Initial or Follow up Reassessment Other Pertinent Diagnosis HIV/AIDS, encephalopathy, noncompliance Labs/Tests Reviewed Pertinent Medications Reviewed Height 5 ft 3 in Weight 46 kg Candor Body Weight (kg) 56.36 BMI 17.9 Subjective/Other Information Pt was reluctant to answer questions. Pt stated he has no appetite and did not eat breakfast. Patient stated he was not drinking ONS. Pt not started on appetite stimulant. Hospice being considered for hospice. Percent of energy/protein needs met: 0%/0% Burn Absent Trauma Absent #1 Nutrition Diagnosis Malnutrition Diagnosis Progress(for reassessment Continues documentation) Is patient on ventilator? No Is Patient Ambulatory and/or Out of Bed No REE-([facility]-confined to bed) [phone] Calculation Used for Recommendations [facility] Additional Notes Pro needs 1.2-1.5g/k-69 g /day Fluid needs 1ml/kcal Nutrition Intervention Change Diet Order: Continue current Add Supplement/Snack (indicate name/kcal D/C /protein ) Goal #1 Meet at least 75% of calorie and protein needs Anticipated Discharge Needs: Regular diet Follow-Up By: 09/17/18 Additional Comments F/U: intakes
--- NOTE | 2018-09-17 11:24 | Progress Note ---
Subjective - Reason for Consult Consult date: 09/17/18 Reason for consult: Psychiatry Follow-up - Chief Complaint Chief complaint: "I am okay" 42-year-old Afro-German male presents to the emergency department via EMS from his residence at [place] with complaint of altered mental status. Today the patient is calm, but refused to be interviewed per the psy assessment. He stated, "I'm okay, I'm good." I the provider attempted several times to engage the patient, again he stated, "I'm okay." No gestures of SI/HI's. Mental Status Exam - Vital signs Last Vital Signs Temp 97.9 F 09/17/18 04:08 Pulse 81 09/17/18 04:08 Resp 16 09/17/18 04:08 BP 96/58 09/17/18 04:08 Pulse Ox 98 09/17/18 04:08 - Exam Narrative exam: Unable to complete the MSE because the patient refuse to cooperate. Assessment and Plan Impression: Today the patient is calm, but refused to be interviewed per the psy assessment. Recommendation/Plan: psy sign off. Will staff with Dr Estella Juarez.
[2018-09-17 12:23] LABS: Basophils % (Manual) 0 % (0.0-1.8); Eosinophils % (Manual) 0 % (0.0-4.3); Total Cells Counted 50
[2018-09-17 12:27] LABS: Anisocytosis 2+; Poikilocytosis 3+
[2018-09-17 12:28] LABS: Ovalocytes 2+; Sickle Cells Rare; Tear Drop Cells 1+
[2018-09-17 12:29] LABS: Platelet Estimate Consistent w Auto
--- NOTE | 2018-09-17 13:40 | Progress Note ---
Assessment and Plan Severe sepsis on background of chronic hypotension AMS due to acute metabolic encephalopathy HIV/AIDS Panycytopenia Severe protein calorie malnutrition Transaminitis -may be due to ischemic hepatitis, HIV/AIDS hepatopathy, infectious etiology with viral hepatitis, vs drug toxicity. Anemia of chronic disease Acute Renal Failure, resolved Oral Candidiasis Non-adherence to medical therapy Hyperammonemia Metabolic acidosis -Continue with gentle IVF, with boluses as needed He is encephaloapthic with the hypotension, which is a change from baseline for him Monitor respiratory status during fluid resuscitation -Continue midodrine -Anti-infective per ID service -Nutritional support, discussed possibility of nutritional supplements -SCDs for VTE prophylaxis, patient declines pharmacologic prophylaxis -PT/OT to evaluate and treat -Limit blood draws, in view of anemia -Patient's blood pressure is at baseline, at this time there is no indication for vasopressor support If the need arises, start on norepinephrine and titrate to MAP >60 -Supportive transfusions as indicated -Mobility for pressure ulcer prevention. Discussed with hospitalist service Discussed with ICU team during the bedside IDT rounds OK to transfer out of the ICU to telemetry floor CONDITION: CRITICAL PROGNOSIS: GUARDED CODE STATUS: FULL CODE Subjective Date of service: 09/17/18 Principal diagnosis: elevated LFTs, oral candidiasis Interval history: Patient is seen today for: severe sepsis, hypotension, acute encephaloapthy, HIV-AIDS Seen and examined at bedside; 24-hour events reviewed; nursing and respiratory care staff consulted; no adverse overnight events reported to me; Blood pressure is labile, but patient remains asymptomatic. He denies any fevers, no chills. Appetite is poor. He has a flat affect. Denies any chest pain, no shortness of breath. Objective - Exam Narrative Exam: General appearance: Somnolent, cachetic, chronically ill looking Eyes: anicteric sclerae, moist conjunctivae; no lid-lag; PERRLA HENT: Atraumatic; normoephalic, dry oral mucosa, thrush Neck: Trachea midline; supple, no thyromegaly or lymphadenopathy Lungs: CTA, with mild increase in respiratory effort and no intercostal retractions CV: RRR, no murmurs, S1,S2 Abdomen: Soft, non-tender; no masses or hepatosplenomegaly Extremities: no edema, no cyanosis, no clubbing Skin: Normal temperature, turgor and texture; no rash, ulcers or subcutaneous nodules Psych: no agitated. Neuro: somnloent but rousable, slow responses to questions Vital Signs - 12hr 09/17/18 04:08 Temperature 97.9 F Pulse Rate 81 Respiratory 16 Rate Blood Pressure 96/58 O2 Sat by Pulse 98 Oximetry Constitutional: no acute distress, alert, other (Weak) Eyes: non-icteric ENT: oropharynx moist Neck: supple, no lymphadenopathy Ascultation: Bilateral: diminished breath sounds, other (Prolonged expiratory phase.) Cardiovascular: regular rate and rhythm Gastrointestinal: normoactive bowel sounds, soft, non-tender Integumentary: normal Extremities: no cyanosis, no edema Neurologic: other (Patient is sleeping.) Psychiatric: other (Patient sleeping.) CBC and BMP: 10/02/18 06:00 10/02/18 06:00 ABG, PT/INR, D-dimer: PT/INR, D-dimer PT 15.1 Sec. (12.2-14.9) H 09/11/18 05:22 INR 1.12 (0.87-1.13) 09/11/18 05:22 Abnormal lab findings: Abnormal Labs 09/04/18 09/04/18 09/04/18 21:00 21:00 22:32 WBC RBC 3.23 L Hgb 9.6 L Hct 28.9 L RDW 18.8 H Plt Count Lymph % (Auto) [place] % (Auto) 12.5 H Lymph # 0.7 L Seg Neutrophils % 72.4 H Seg Neuts % (Manual) Lymphocytes % (Manual) Monocytes % (Manual) Nucleated RBC % Seg Neutrophils # Man Lymphocytes # (Manual) PT Sodium Potassium Chloride 109.9 H Carbon Dioxide 21 L BUN 31 H Creatinine Glucose Lactic Acid 2.40 H* Calcium 8.2 L Iron TIBC Ferritin AST 200 H ALT 136 H Alkaline Phosphatase 138 H Ammonia Total Protein Albumin 3.5 L 09/04/18 09/05/18 09/05/18 22:32 16:19 16:19 WBC RBC Hgb Hct RDW Plt Count Lymph % (Auto) [place] % (Auto) Lymph # Seg Neutrophils % Seg Neuts % (Manual) Lymphocytes % (Manual) Monocytes % (Manual) Nucleated RBC % Seg Neutrophils # Man Lymphocytes # (Manual) PT Sodium Potassium Chloride 112.4 H Carbon Dioxide 19 L BUN Creatinine Glucose Lactic Acid Calcium 8.1 L Iron TIBC 223 L Ferritin AST 241 H ALT 138 H Alkaline Phosphatase Ammonia 64.0 H Total Protein Albumin 3.1 L 09/05/18 09/06/18 09/06/18 16:19 10:40 10:40 WBC 2.4 L RBC 2.67 L Hgb 7.7 L Hct 23.7 L RDW 18.7 H Plt Count 135 L Lymph % (Auto) 10.0 L [place] % (Auto) 8.4 H Lymph # 0.2 L Seg Neutrophils % 81.1 H Seg Neuts % (Manual) Lymphocytes % (Manual) Monocytes % (Manual) Nucleated RBC % Seg Neutrophils # Man Lymphocytes # (Manual) PT Sodium Potassium Chloride 112.1 H Carbon Dioxide 19 L BUN Creatinine 0.7 L Glucose Lactic Acid Calcium 7.8 L Iron TIBC Ferritin 2880.0 H AST 263 H ALT 143 H Alkaline Phosphatase Ammonia Total Protein 6.1 L Albumin 2.8 L 09/07/18 09/07/18 09/08/18 10:38 10:38 06:39 WBC RBC 2.86 L Hgb 8.3 L Hct 25.2 L RDW 18.3 H Plt Count 123 L Lymph % (Auto) 6.1 L [place] % (Auto) Lymph # 0.3 L Seg Neutrophils % 87.3 H Seg Neuts % (Manual) Lymphocytes % (Manual) Monocytes % (Manual) Nucleated RBC % Seg Neutrophils # Man Lymphocytes # (Manual) PT Sodium Potassium Chloride Carbon Dioxide BUN Creatinine Glucose Lactic Acid Calcium Iron 26 L TIBC 212 L Ferritin 2762.0 H AST ALT Alkaline Phosphatase Ammonia Total Protein Albumin 09/08/18 09/08/18 09/09/18 06:39 13:43 07:03 WBC RBC Hgb Hct RDW Plt Count Lymph % (Auto) [place] % (Auto) Lymph # Seg Neutrophils % Seg Neuts % (Manual) Lymphocytes % (Manual) Monocytes % (Manual) Nucleated RBC % Seg Neutrophils # Man Lymphocytes # (Manual) PT Sodium Potassium 3.2 L 3.5 L Chloride 111.9 H 108.6 H Carbon Dioxide 13 L 15 L BUN 6 L 4 L Creatinine Glucose 118 H Lactic Acid Calcium 7.5 L 7.5 L Iron TIBC Ferritin AST 117 H 130 H ALT 87 H 86 H Alkaline Phosphatase Ammonia Total Protein 5.6 L 6.0 L Albumin 2.6 L 2.6 L 0409/10/18 09/10/18 07:31 04:26 04:26 WBC 3.5 L 2.1 L RBC 2.82 L 3.10 L Hgb 8.2 L 9.0 L Hct 24.6 L 27.1 L RDW 18.8 H 18.6 H Plt Count 136 L 139 L Lymph % (Auto) [place] % (Auto) Lymph # Seg Neutrophils % Seg Neuts % (Manual) 77.0 H Lymphocytes % (Manual) 11.0 L Monocytes % (Manual) 11.0 H Nucleated RBC % Seg Neutrophils # Man 1.6 L Lymphocytes # (Manual) 0.2 L PT Sodium Potassium Chloride 112.7 H Carbon Dioxide 14 L BUN 5 L Creatinine Glucose 109 H Lactic Acid Calcium 7.7 L Iron TIBC Ferritin AST 110 H ALT 76 H Alkaline Phosphatase Ammonia Total Protein 6.0 L Albumin 2.8 L 09/11/18 09/12/18 09/13/18 05:22 12:28 07:23 WBC 1.1 L* RBC 2.82 L Hgb 8.2 L Hct 25.5 L RDW 19.5 H Plt Count 103 L Lymph % (Auto) [place] % (Auto) Lymph # Seg Neutrophils % Seg Neuts % (Manual) Lymphocytes % (Manual) Monocytes % (Manual) 18.0 H Nucleated RBC % Seg Neutrophils # Man 0.6 L Lymphocytes # (Manual) 0.3 L PT 15.1 H Sodium 133 L Potassium 3.5 L Chloride 108.8 H Carbon Dioxide 14 L BUN 6 L Creatinine Glucose 123 H Lactic Acid Calcium 7.4 L Iron TIBC Ferritin AST 126 H ALT 77 H Alkaline Phosphatase Ammonia Total Protein 5.7 L Albumin 2.6 L 09/15/18 09/15/18 09/17/18 00:51 04:31 10:52 WBC 1.2 L* 1.2 L* RBC 3.38 L 3.03 L Hgb 9.7 L 8.9 L Hct 29.5 L 27.2 L RDW 19.0 H 19.5 H Plt Count 95 L 59 L Lymph % (Auto) [place] % (Auto) Lymph # Seg Neutrophils % Seg Neuts % (Manual) Lymphocytes % (Manual) Monocytes % (Manual) 24.0 H 14.0 H Nucleated RBC % 2.0 H Seg Neutrophils # Man 0.6 L 0.8 L Lymphocytes # (Manual) 0.3 L 0.2 L PT Sodium Potassium Chloride 112.0 H Carbon Dioxide 13 L BUN Creatinine Glucose 65 L Lactic Acid Calcium Iron TIBC Ferritin AST ALT Alkaline Phosphatase Ammonia Total Protein Albumin
[2018-09-17] MEDS: NACL 0.9% 1000 ML 1,000 ML IV SCH (20:47)
[2018-09-17] MEDS: SODIUM CHLORIDE FLUSH SYRINGE 10 ML IV SCH (22:17)
[2018-09-18] MEDS ORDERED: NACL 0.9% 1000 ML 1,000 ML IV ONE (00:35)
[2018-09-18] MEDS: NYSTATIN PO SCH ×4 (09:24→20:50)
[2018-09-18] MEDS: PEPCID IV SCH ×2 (09:24→21:26)
[2018-09-18] MEDS: BABY ASPIRIN PO SCH (09:24)
[2018-09-18] MEDS: BACTRIM DS PO SCH (09:24)
[2018-09-18] MEDS: PROAMATINE PO SCH ×3 (09:25→19:10)
[2018-09-18] MEDS: LOVENOX SUB-Q SCH ×2 (09:25→09:35)
[2018-09-18] MEDS: NACL 0.9% 1000 ML 1,000 ML IV SCH (09:26)
[2018-09-18] MEDS: SODIUM CHLORIDE FLUSH SYRINGE 10 ML IV SCH ×3 (09:29→21:26)
[2018-09-18] MEDS ORDERED: NACL 0.9% 500 ML 500 ML IV ONE (10:00)
--- NOTE | 2018-09-18 12:58 | Progress Note ---
Assessment and Plan Assessment and plan: Patient is a 42 yo man with a history of HIV/AIDs and anemia who presented to [facility] ED with AMS on 09/04/18. Patient was just discharged from here on 08/04/2018 for sepsis, LLL, lingula pneumonia and severe oral candidiasis * CT chest wo contrast IMPRESSION: Bilateral pneumonia with findings most prominent in the left lower lobe as described. Bronchiectatic changes in left lower lobe noted also. Scattered blebs in the left lung.. * GB Ultrasound IMPRESSION: The gallbladder lumen is contracted. The common bile duct is normal measuring 2 mm. * CT head without contrast Impression: No acute intracranial abnormality, chronic maxillary and ethmoid sinusitis -Hypotension, acute on chronic hypotension, bp has been low since Jun 2018 (as far as our records go), so I don't believe the chronic hypotension is sepsis related, his effective circulatory volume is low due to his malnutrition from severe HIV/AIDs which causing the pancytopenia, severe malnutrition, oral thrush, etc... Cardiology and ID recommends Hospice, but patient refuses. Continue present management -AMS due to acute metabolic encephalopathy from HIV encephalopathy/FTT/malnutrition, improving: consulted Program Manager Slp, -HIV/AIDs with pancytopenia/bone marrow failure most likely: consulted ID -Worsening Transaminitis: consulted GI, cmp daily, reviewed GB ultrasound -AOCD: monitor cbc daily -Severe Malnutrition: consulted Program Manager Slp -Acute Renal Failure, vasomotor nephropathy, poa, Cr is 1.0, up from baseline of 0.5: repeat BMP in am -Oral Candidiasis, treated, tolerating a diet, will monitor, GI evaluated -Non-adherence to medical therapy: counseling done -Lactic acidosis, Resolved status post IV hydration -Metabolic acidosis: On IV fluid, will monitor bicarbonate level -Hyperammonemia-Lactulose ordered but patient refuses DVT prophylaxis with Lovenox but pt is refusing, counseling done again Disposition: continue inpatient care IV line out and Patient refusing new iv line, I had to speak with him and he agree then I gave him a bolus of NSS. We spoke about hospice and compliance. He denies SI/HI but would not answered about being depressed. I will consult Mental health for possible depression. Patient is refusing to engage in psych evaluation. Mother did not come to discuss hospice and overall care, Trying to get to SNF, [facility] has accepted but waiting for medicaid verification from patient. History Interval history: Patient was seen and examined. Follow-up on current diagnosis of hypotension. Overnight uneventful. Patient denies any chest pain, shortness breath, nausea/vomiting or severe headaches. Imaging, nursing note, chart, labs and old chart reviewed. Discussed with patient. Hospitalist Physical - Physical exam Narrative exam: Gen: cachetic, unkempt, NAD, Awake, Alert, Orientated x 3 HEENT: NCAT, EOMI, PERRL, OP dry and crusty, whitish Neck: supple, no adenopathy, no thyromegaly, no JVD CVS/Heart: RRR, normal S1S2, pulses present bilaterally Chest/Lungs: CTA B, Symmetrical chest expansion, good air entry bilaterally GI/Abdomen: soft, NTND, good bowel sounds, no guarding or rebound /Bladder: no suprapubic tenderness, no CVA or paraspinal tenderness Extermity/Skin: no c/c/e, no obvious rash MSK: FROM x 4 Neuro: CN 2-12 grossly intact, no new focal deficits Psych: calm - Constitutional Vitals: Temp Pulse Resp BP Pulse Ox 97.4 F L 87 18 137/91 100 09/18/18 11:56 09/18/18 08:54 09/18/18 11:56 09/18/18 11:56 09/18/18 08:54 General appearance: Present: no acute distress, well-nourished Results - Labs CBC & Chem 7: 09/17/18 10:52 09/15/18 04:31 Labs: Laboratory Last Values WBC 1.2 K/mm3 (4.5-11.0) L* 09/17/18 10:52 RBC 3.03 M/mm3 (3.65-5.03) L 09/17/18 10:52 Hgb 8.9 gm/dl (11.8-15.2) L 09/17/18 10:52 Hct 27.2 % (35.5-45.6) L 09/17/18 10:52 MCV 90 fl (84-94) 09/17/18 10:52 MCH 29 pg (28-32) 09/17/18 10:52 MCHC 33 % (32-34) 09/17/18 10:52 RDW 19.5 % (13.2-15.2) H 09/17/18 10:52 Plt Count 59 K/mm3 (140-440) L 09/17/18 10:52 Lymph % (Auto) 6.1 % (13.4-35.0) L 09/08/18 06:39 [place] % (Auto) Diving Supervisor 09/17/18 10:52 Eos % (Auto) 0.0 % (0.0-4.3) 09/08/18 06:39 Baso % (Auto) 0.2 % (0.0-1.8) 09/08/18 06:39 Lymph # 0.3 K/mm3 (1.2-5.4) L 09/08/18 06:39 [place] # 0.3 K/mm3 (0.0-0.8) 09/08/18 06:39 Eos # 0.0 K/mm3 (0.0-0.4) 09/08/18 06:39 Baso # 0.0 K/mm3 (0.0-0.1) 09/08/18 06:39 Add Manual Diff Complete 09/17/18 10:52 Total Counted 50 09/17/18 10:52 Seg Neutrophils % 87.3 % (40.0-70.0) H 09/08/18 06:39 Seg Neuts % (Manual) 68.0 % (40.0-70.0) 09/17/18 10:52 Band Neutrophils % 0 % 09/17/18 10:52 Lymphocytes % (Manual) 16.0 % (13.4-35.0) 09/17/18 10:52 Reactive Lymphs % (Man) 2.0 % 09/17/18 10:52 Monocytes % (Manual) 14.0 % (0.0-7.3) H 09/17/18 10:52 Eosinophils % (Manual) 0 % (0.0-4.3) 09/17/18 10:52 Basophils % (Manual) 0 % (0.0-1.8) 09/17/18 10:52 Metamyelocytes % 0 % 09/17/18 10:52 Myelocytes % 0 % 09/17/18 10:52 Promyelocytes % 0 % 09/17/18 10:52 Blast Cells % 0 % 09/17/18 10:52 Nucleated RBC % 2.0 % (0.0-0.9) H 09/17/18 10:52 Seg Neutrophils # 4.5 K/mm3 (1.8-7.7) 09/08/18 06:39 Seg Neutrophils # Man 0.8 K/mm3 (1.8-7.7) L 09/17/18 10:52 Band Neutrophils # 0.0 K/mm3 09/17/18 10:52 Lymphocytes # (Manual) 0.2 K/mm3 (1.2-5.4) L 09/17/18 10:52 Abs React Lymphs (Man) 0.0 K/mm3 09/17/18 10:52 Monocytes # (Manual) 0.2 K/mm3 (0.0-0.8) 09/17/18 10:52 Eosinophils # (Manual) 0.0 K/mm3 (0.0-0.4) 09/17/18 10:52 Basophils # (Manual) 0.0 K/mm3 (0.0-0.1) 09/17/18 10:52 Metamyelocytes # 0.0 K/mm3 09/17/18 10:52 Myelocytes # 0.0 K/mm3 09/17/18 10:52 Promyelocytes # 0.0 K/mm3 09/17/18 10:52 Blast Cells # 0.0 K/mm3 09/17/18 10:52 WBC Morphology Not Reportable 09/17/18 10:52 Hypersegmented Neuts Not Reportable 09/17/18 10:52 Hyposegmented Neuts Not Reportable 09/17/18 10:52 Hypogranular Neuts Not Reportable 09/17/18 10:52 Smudge Cells Not Reportable 09/17/18 10:52 Toxic Granulation Not Reportable 09/17/18 10:52 Toxic Vacuolation Not Reportable 09/17/18 10:52 Dohle Bodies Not Reportable 09/17/18 10:52 Pelger-Huet Anomaly Not Reportable 09/17/18 10:52 Giovanni Rods Not Reportable 09/17/18 10:52 Platelet Estimate Consistent w auto 09/17/18 10:52 Clumped Platelets Not Reportable 09/17/18 10:52 Plt Clumps, EDTA Not Reportable 09/17/18 10:52 Large Platelets Not Reportable 09/17/18 10:52 Giant Platelets Not Reportable 09/17/18 10:52 Platelet Satelliting Not Reportable 09/17/18 10:52 Plt Morphology Comment Not Reportable 09/17/18 10:52 RBC Morphology Not Reportable 09/17/18 10:52 Dimorphic RBCs Not Reportable 09/17/18 10:52 Polychromasia Not Reportable 09/17/18 10:52 Hypochromasia Not Reportable 09/17/18 10:52 Poikilocytosis 3+ 09/17/18 10:52 Anisocytosis 2+ 09/17/18 10:52 Microcytosis Not Reportable 09/17/18 10:52 Macrocytosis Not Reportable 09/17/18 10:52 Spherocytes Not Reportable 09/17/18 10:52 Pappenheimer Bodies Not Reportable 09/17/18 10:52 Sickle Cells Rare 09/17/18 10:52 Target Cells Not Reportable 09/17/18 10:52 Tear Drop Cells 1+ 09/17/18 10:52 Ovalocytes 2+ 09/17/18 10:52 Helmet Cells Not Reportable 09/17/18 10:52 Holbrook-Herkimer Bodies Not Reportable 09/17/18 10:52 [place] Rings Not Reportable 09/17/18 10:52 Cinthya Cells Not Reportable 09/17/18 10:52 Bite Cells Not Reportable 09/17/18 10:52 Crenated Cell Not Reportable 09/17/18 10:52 Elliptocytes 1+ 09/17/18 10:52 Acanthocytes (Spur) Not Reportable 09/17/18 10:52 Rouleaux Not Reportable 09/17/18 10:52 Hemoglobin C Crystals Not Reportable 09/17/18 10:52 Schistocytes Not Reportable 09/17/18 10:52 Malaria parasites Not Reportable 09/17/18 10:52 Carlos A Bodies Not Reportable 09/17/18 10:52 Hem Pathologist Commnt No 09/17/18 10:52 PT 15.1 Sec. (12.2-14.9) H 09/11/18 05:22 INR 1.12 (0.87-1.13) 09/11/18 05:22 Sodium 140 mmol/L (137-145) D 09/15/18 04:31 Potassium 3.9 mmol/L (3.6-5.0) 09/15/18 04:31 Chloride 112.0 mmol/L (98-107) H 09/15/18 04:31 Carbon Dioxide 13 mmol/L (22-30) L 09/15/18 04:31 Anion Gap 19 mmol/L 09/15/18 04:31 BUN 15 mg/dL (9-20) 09/15/18 04:31 Creatinine 1.3 mg/dL (0.8-1.5) 09/15/18 04:31 Estimated GFR > 60 ml/min 09/15/18 04:31 BUN/Creatinine Ratio 12 % 09/15/18 04:31 Glucose 65 mg/dL (75-100) L 09/15/18 04:31 POC Glucose 91 (70-105) 09/09/18 07:18 Lactic Acid 1.30 mmol/L (0.7-2.0) 09/05/18 03:50 Calcium 8.6 mg/dL (8.4-10.2) D 09/15/18 04:31 Iron 26 ug/dL (49-181) L 09/07/18 10:38 TIBC 212 mcg/dL (250-450) L 09/07/18 10:38 Ferritin 2762.0 ng/mL (13.0-400.0) H 09/07/18 10:38 Total Bilirubin < 0.20 mg/dL (0.1-1.2) 09/12/18 12:28 Direct Bilirubin < 0.2 mg/dL (0-0.2) 09/08/18 13:43 Indirect Bilirubin 0.0 mg/dL 09/06/18 10:40 AST 126 units/L (5-40) H 09/12/18 12:28 ALT 77 units/L (7-56) H 09/12/18 12:28 Alkaline Phosphatase 124 units/L (35-129) 09/12/18 12:28 Ammonia 51.0 umol/L (25-60) 09/12/18 12:28 Total Creatine Kinase 101 units/L (55-170) 09/04/18 21:00 Troponin T < 0.010 ng/mL (0.00-0.029) 09/10/18 12:14 Total Protein 5.7 g/dL (6.3-8.2) L 09/12/18 12:28 Albumin 2.6 g/dL (3.9-5) L 09/12/18 12:28 Albumin/Globulin Ratio 0.8 % 09/12/18 12:28 TSH 0.960 mlU/mL (0.270-4.200) 09/04/18 21:00 Urine Color Yellow (Yellow) 09/04/18 23:30 Urine Turbidity Clear (Clear) 09/04/18 23:30 Urine pH 6.0 (5.0-7.0) 09/04/18 23:30 Ur Specific [place] 1.012 (1.003-1.030) 09/04/18 23:30 Urine Protein <15 mg/dl mg/dL (Negative) 09/04/18 23:30 Urine Glucose (UA) Neg mg/dL (Negative) 09/04/18 23:30 Urine Ketones Neg mg/dL (Negative) 09/04/18 23:30 Urine Blood Neg (Negative) 09/04/18 23:30 Urine Nitrite Neg (Negative) 09/04/18 23:30 Urine Bilirubin Neg (Negative) 09/04/18 23:30 Urine Urobilinogen < 2.0 mg/dL (<2.0) 09/04/18 23:30 Ur Leukocyte Esterase Neg (Negative) 09/04/18 23:30 Urine WBC (Auto) 1.0 /HPF (0.0-6.0) 09/04/18 23:30 Urine RBC (Auto) 2.0 /HPF (0.0-6.0) 09/04/18 23:30 Urine Bacteria (Auto) 1+ /HPF (Negative) 09/04/18 23:30 Urine Mucus Few /HPF 09/04/18 23:30 Urine Opiates Screen Presumptive negative 09/04/18 23:30 Urine Methadone Screen Presumptive negative 09/04/18 23:30 Ur Barbiturates Screen Presumptive negative 09/04/18 23:30 Ur Phencyclidine Scrn Presumptive negative 09/04/18 23:30 Ur Amphetamines Screen Presumptive negative 09/04/18 23:30 U Benzodiazepines Scrn Presumptive negative 09/04/18 23:30 Urine Cocaine Screen Presumptive negative 09/04/18 23:30 U Marijuana (THC) Screen Presumptive negative 09/04/18 23:30 Drugs of Abuse Note Disclamer 09/04/18 23:30 Plasma/Serum Alcohol < 0.01 % (0-0.07) 09/04/18 21:00 JAMEEL Screen Negative (Negative) 09/05/18 16:19 Sm ([place]) Antibody <1.0 AI (<1.0) 09/05/18 16:19 Mitochondria M2 Ab <=20.0 U (<=20.0) 09/05/18 16:19 CMV DNA PCR log gyroscope technician/mL See scanned results 09/08/18 16:50 Hepatitis A IgM Ab Non-reactive (NonReactive) 09/08/18 06:39 Hep Bs Antigen Non-reactive (Negative) 09/08/18 06:39 Hep B Core IgM Ab Non-reactive (NonReactive) 09/08/18 06:39 Hepatitis C Antibody Non-reactive (NonReactive) 09/08/18 06:39 Miscellaneous Test Flexitest 1 09/09/18 07:03 Active Medications - Current Medications Current Medications: Generic Name Dose Route Start Last Admin Trade Name Freq PRN Reason Stop Dose Admin Acetaminophen 650 mg 09/05/18 02:48 09/09/18 06:44 Tylenol PO 650 mg Q4H PRN Administration Pain MILD(1-3)/Fever >100.5/VILLAREAL Acetaminophen/Hydrocodone Bitart 1 each 09/05/18 02:48 [place] 5/325 PO Q4H PRN Pain, Moderate (4-6) Aspirin 81 mg 09/09/18 17:00 09/18/18 09:24 Baby Aspirin PO 81 mg QDAY GLEN Administration Enoxaparin Sodium 40 mg 09/05/18 10:00 09/18/18 09:35 Lovenox SUB-Q Not Given QDAY GLEN Famotidine 10 mg 09/05/18 10:00 09/18/18 09:24 Pepcid IV 10 mg BID GLEN Administration Sodium Chloride 1,000 mls @ 100 mls/hr 09/16/18 08:00 09/18/18 09:26 Nacl 0.9% 1000 Ml IV 100 mls/hr DIRECT GLEN Administration Midodrine 10 mg 09/05/18 19:00 09/18/18 09:25 Proamatine PO 10 mg TID@0800,1200,1600 GLEN Administration Nystatin 500,000 unit 09/10/18 20:00 09/18/18 09:34 Nystatin PO Not Given TID GLEN Ondansetron HCl 4 mg 09/05/18 02:48 09/10/18 13:06 Zofran IV 4 mg Q8H PRN Administration Nausea And Vomiting Sodium Chloride 10 ml 09/05/18 10:00 09/18/18 09:29 Sodium Chloride Flush Syringe 10 Ml IV 10 ml BID GLEN Administration Sodium Chloride 10 ml 09/05/18 02:48 Sodium Chloride Flush Syringe 10 Ml IV PRN PRN LINE FLUSH Trimethoprim/Sulfamethoxazole 1 each 09/14/18 10:00 09/18/18 09:24 Bactrim Ds PO 1 each DAILY GLEN Administration Nutrition/Malnutrition Assess - Dietary Evaluation Nutrition/Malnutrition Findings: Nutrition Notes Start: 09/06/18 15:57 Freq: Status: Active Protocol: Document 09/17/18 17:00 RM (Rec: 09/17/18 17:03 RM [id number]) Nutrition Notes Initial or Follow up Reassessment Other Pertinent Diagnosis HIV/AIDS, encephalopathy, noncompliance Current Diet Regular + Ensure Clear daily Labs/Tests Reviewed Pertinent Medications Reviewed Height 5 ft 3 in Weight 47.6 kg [place] Body Weight (kg) 56.36 BMI 18.6 Subjective/Other Information Pt stated that his appetite alright and would not answer further questions. Noted various uneaten foods at bedside including cecilia crackers and soup. Noted open Ensure Clear with very little drunk. Percent of energy/protein needs met: 0%/0% Burn Absent Trauma Absent #1 Nutrition Diagnosis Malnutrition Diagnosis Progress(for reassessment Continues documentation) Is patient on ventilator? No Is Patient Ambulatory and/or Out of Bed No REE-([facility]-confined to bed) 1528.812 Calculation Used for Recommendations [facility][1] Additional Notes Pro needs 1.2-1.5g/k-69 g /day Fluid needs 1ml/kcal Nutrition Intervention Change Diet Order: Continue current Add Supplement/Snack (indicate name/kcal Was not previously D/C'd. /protein ) Ensure Clear 1 daily Goal #1 Meet at least 75% of calorie and protein needs Anticipated Discharge Needs: Regular diet Follow-Up By: 09/20/18 Additional Comments Follow for PO and ONS intakes
--- NOTE | 2018-09-18 14:34 | Progress Note ---
Assessment and Plan Severe sepsis on background of chronic hypotension AMS due to acute metabolic encephalopathy Cardiomyopathy, EF 30-35% HIV/AIDS Leukopenia Severe protein calorie malnutrition Transaminitis - may be due to ischemic hepatitis, HIV/AIDs hepatopathy, infectious etiology with viral hepatitis, vs drug toxicity. Anemia of chronic disease Acute Renal Failure, resolved Oral Candidiasis Non-adherence to medical therapy Hyperammonemia Metabolic acidosis - Continue with gentle IVF -Continue midodrine -Anti-infective per ID service -Nutritional support, -SCDs for VTE prophylaxis, patient declines pharmacologic prophylaxis -PT/OT/ mobility as tolerated -Leukopenia--multifactorial, bone marrow suppression from infection and med ications. At increased risk for infections, monitor closely.May need BMAT f the bone marrow does not show signs of recovery -Cardioprotective measures -Appetite stimulants -Limit blood draws, in view of anemia Continue with all supportive care Subjective Date of service: 09/18/18 Principal diagnosis: elevated LFTs, oral candidiasis Interval history: Patient is seen today for: severe sepsis, hypotension, acute encephaloapthy, HIV-AIDS Seen and examined at bedside; 24-hour events reviewed; nursing and respiratory care staff consulted; no adverse overnight events reported to me;He denies any fevers, no chills. Appetite is improving. He has a flat affect. Denies any chest pain, no shortness of breath. Objective Vital Signs - 12hr 09/18/18 09/18/18 09/18/18 04:33 04:50 08:05 Temperature 98.0 F 98.0 F Pulse Rate 65 73 Respiratory 18 18 Rate Blood Pressure 78/47 68/46 Blood Pressure [Right] O2 Sat by Pulse 82 L Oximetry 09/18/18 09/18/18 09/18/18 08:54 11:51 11:56 Temperature 98.3 F 97.4 F L Pulse Rate 87 Respiratory 18 18 Rate Blood Pressure 94/71 137/91 Blood Pressure 84/58 [Right] O2 Sat by Pulse 100 Oximetry Constitutional: no acute distress, alert, other (Weak) Eyes: non-icteric ENT: oropharynx moist Neck: supple, no lymphadenopathy, no JVD Effort: normal Ascultation: Bilateral: diminished breath sounds, other (Prolonged expiratory phase.) Cardiovascular: regular rate and rhythm, other (S1,S2, no murmurs, gallops or rubs) Gastrointestinal: normoactive bowel sounds, soft, non-tender Integumentary: normal Extremities: no cyanosis, no edema, other (thin) Neurologic: non-focal exam, pupils equal and round, motor strength normal and Psychiatric: mood appropriate, other (flat affect, appears to have some cognitive deficit) CBC and BMP: 10/02/18 06:00 10/02/18 06:00 ABG, PT/INR, D-dimer: PT/INR, D-dimer PT 15.1 Sec. (12.2-14.9) H 09/11/18 05:22 INR 1.12 (0.87-1.13) 09/11/18 05:22 Abnormal lab findings: Abnormal Labs 09/04/18 09/04/18 09/04/18 21:00 21:00 22:32 WBC RBC 3.23 L Hgb 9.6 L Hct 28.9 L RDW 18.8 H Plt Count Lymph % (Auto) [place] % (Auto) 12.5 H Lymph # 0.7 L Seg Neutrophils % 72.4 H Seg Neuts % (Manual) Lymphocytes % (Manual) Monocytes % (Manual) Nucleated RBC % Seg Neutrophils # Man Lymphocytes # (Manual) PT Sodium Potassium Chloride 109.9 H Carbon Dioxide 21 L BUN 31 H Creatinine Glucose Lactic Acid 2.40 H* Calcium 8.2 L Iron TIBC Ferritin AST 200 H ALT 136 H Alkaline Phosphatase 138 H Ammonia Total Protein Albumin 3.5 L 09/04/18 09/05/18 09/05/18 22:32 16:19 16:19 WBC RBC Hgb Hct RDW Plt Count Lymph % (Auto) [place] % (Auto) Lymph # Seg Neutrophils % Seg Neuts % (Manual) Lymphocytes % (Manual) Monocytes % (Manual) Nucleated RBC % Seg Neutrophils # Man Lymphocytes # (Manual) PT Sodium Potassium Chloride 112.4 H Carbon Dioxide 19 L BUN Creatinine Glucose Lactic Acid Calcium 8.1 L Iron TIBC 223 L Ferritin AST 241 H ALT 138 H Alkaline Phosphatase Ammonia 64.0 H Total Protein Albumin 3.1 L 09/05/18 09/06/18 09/06/18 16:19 10:40 10:40 WBC 2.4 L RBC 2.67 L Hgb 7.7 L Hct 23.7 L RDW 18.7 H Plt Count 135 L Lymph % (Auto) 10.0 L [place] % (Auto) 8.4 H Lymph # 0.2 L Seg Neutrophils % 81.1 H Seg Neuts % (Manual) Lymphocytes % (Manual) Monocytes % (Manual) Nucleated RBC % Seg Neutrophils # Man Lymphocytes # (Manual) PT Sodium Potassium Chloride 112.1 H Carbon Dioxide 19 L BUN Creatinine 0.7 L Glucose Lactic Acid Calcium 7.8 L Iron TIBC Ferritin 2880.0 H AST 263 H ALT 143 H Alkaline Phosphatase Ammonia Total Protein 6.1 L Albumin 2.8 L 09/07/18 09/07/18 09/08/18 10:38 10:38 06:39 WBC RBC 2.86 L Hgb 8.3 L Hct 25.2 L RDW 18.3 H Plt Count 123 L Lymph % (Auto) 6.1 L [place] % (Auto) Lymph # 0.3 L Seg Neutrophils % 87.3 H Seg Neuts % (Manual) Lymphocytes % (Manual) Monocytes % (Manual) Nucleated RBC % Seg Neutrophils # Man Lymphocytes # (Manual) PT Sodium Potassium Chloride Carbon Dioxide BUN Creatinine Glucose Lactic Acid Calcium Iron 26 L TIBC 212 L Ferritin 2762.0 H AST ALT Alkaline Phosphatase Ammonia Total Protein Albumin 09/08/18 09/08/18 09/09/18 06:39 13:43 07:03 WBC RBC Hgb Hct RDW Plt Count Lymph % (Auto) [place] % (Auto) Lymph # Seg Neutrophils % Seg Neuts % (Manual) Lymphocytes % (Manual) Monocytes % (Manual) Nucleated RBC % Seg Neutrophils # Man Lymphocytes # (Manual) PT Sodium Potassium 3.2 L 3.5 L Chloride 111.9 H 108.6 H Carbon Dioxide 13 L 15 L BUN 6 L 4 L Creatinine Glucose 118 H Lactic Acid Calcium 7.5 L 7.5 L Iron TIBC Ferritin AST 117 H 130 H ALT 87 H 86 H Alkaline Phosphatase Ammonia Total Protein 5.6 L 6.0 L Albumin 2.6 L 2.6 L 09/09/18 09/10/18 09/10/18 07:31 04:26 04:26 WBC 3.5 L 2.1 L RBC 2.82 L 3.10 L Hgb 8.2 L 9.0 L Hct 24.6 L 27.1 L RDW 18.8 H 18.6 H Plt Count 136 L 139 L Lymph % (Auto) [place] % (Auto) Lymph # Seg Neutrophils % Seg Neuts % (Manual) 77.0 H Lymphocytes % (Manual) 11.0 L Monocytes % (Manual) 11.0 H Nucleated RBC % Seg Neutrophils # Man 1.6 L Lymphocytes # (Manual) 0.2 L PT Sodium Potassium Chloride 112.7 H Carbon Dioxide 14 L BUN 5 L Creatinine Glucose 109 H Lactic Acid Calcium 7.7 L Iron TIBC Ferritin AST 110 H ALT 76 H Alkaline Phosphatase Ammonia Total Protein 6.0 L Albumin 2.8 L 09/11/18 09/12/18 09/13/18 05:22 12:28 07:23 WBC 1.1 L* RBC 2.82 L Hgb 8.2 L Hct 25.5 L RDW 19.5 H Plt Count 103 L Lymph % (Auto) [place] % (Auto) Lymph # Seg Neutrophils % Seg Neuts % (Manual) Lymphocytes % (Manual) Monocytes % (Manual) 18.0 H Nucleated RBC % Seg Neutrophils # Man 0.6 L Lymphocytes # (Manual) 0.3 L PT 15.1 H Sodium 133 L Potassium 3.5 L Chloride 108.8 H Carbon Dioxide 14 L BUN 6 L Creatinine Glucose 123 H Lactic Acid Calcium 7.4 L Iron TIBC Ferritin AST 126 H ALT 77 H Alkaline Phosphatase Ammonia Total Protein 5.7 L Albumin 2.6 L 09/15/18 09/15/18 09/17/18 00:51 04:31 10:52 WBC 1.2 L* 1.2 L* RBC 3.38 L 3.03 L Hgb 9.7 L 8.9 L Hct 29.5 L 27.2 L RDW 19.0 H 19.5 H Plt Count 95 L 59 L Lymph % (Auto) [place] % (Auto) Lymph # Seg Neutrophils % Seg Neuts % (Manual) Lymphocytes % (Manual) Monocytes % (Manual) 24.0 H 14.0 H Nucleated RBC % 2.0 H Seg Neutrophils # Man 0.6 L 0.8 L Lymphocytes # (Manual) 0.3 L 0.2 L PT Sodium Potassium Chloride 112.0 H Carbon Dioxide 13 L BUN Creatinine Glucose 65 L Lactic Acid Calcium Iron TIBC Ferritin AST ALT Alkaline Phosphatase Ammonia Total Protein Albumin Additional Studies: Transthoracic echocardiogram shows severely depressed LVEF with EF 30-35% Allied health notes reviewed: nursing
[2018-09-19] MEDS: PEPCID IV SCH ×2 (11:43→23:18)
[2018-09-19] MEDS: BACTRIM DS PO SCH (11:43)
[2018-09-19] MEDS: BABY ASPIRIN PO SCH (11:43)
[2018-09-19] MEDS: PROAMATINE PO SCH ×3 (11:43→19:00)
[2018-09-19] MEDS: LOVENOX SUB-Q SCH ×2 (11:44→11:58)
[2018-09-19] MEDS: SODIUM CHLORIDE FLUSH SYRINGE 10 ML IV SCH ×2 (11:56→22:50)
[2018-09-19] MEDS: NYSTATIN PO SCH ×3 (11:58→22:50)
--- NOTE | 2018-09-19 12:44 | Progress Note ---
Assessment and Plan Assessment and plan: Patient is a 42 yo man with a history of HIV/AIDs and anemia who presented to [facility] ED with AMS on 09/04/18. Patient was just discharged from here on 08/04/2018 for sepsis, LLL, lingula pneumonia and severe oral candidiasis * CT chest wo contrast IMPRESSION: Bilateral pneumonia with findings most prominent in the left lower lobe as described. Bronchiectatic changes in left lower lobe noted also. Scattered blebs in the left lung.. * GB Ultrasound IMPRESSION: The gallbladder lumen is contracted. The common bile duct is normal measuring 2 mm. * CT head without contrast Impression: No acute intracranial abnormality, chronic maxillary and ethmoid sinusitis -Hypotension, acute on chronic hypotension, bp has been low since Jun 2018 (as far as our records go), so I don't believe the chronic hypotension is sepsis related, his effective circulatory volume is low due to his malnutrition from severe HIV/AIDs which causing the pancytopenia, severe malnutrition, oral thrush, etc... Cardiology and ID recommends Hospice, but patient refuses. Continue present management -AMS due to acute metabolic encephalopathy from HIV encephalopathy/FTT/malnutrition, improving: consulted Corporate Accountant, -HIV/AIDs with pancytopenia/bone marrow failure most likely: consulted ID -Worsening Transaminitis: consulted GI, cmp daily, reviewed GB ultrasound -AOCD: monitor cbc daily -Severe Malnutrition: consulted Corporate Accountant -Acute Renal Failure, vasomotor nephropathy, poa, Cr is 1.0, up from baseline of 0.5: repeat BMP in am -Oral Candidiasis, treated, tolerating a diet, will monitor, GI evaluated -Non-adherence to medical therapy: counseling done -Lactic acidosis, Resolved status post IV hydration -Metabolic acidosis: On IV fluid, will monitor bicarbonate level -Hyperammonemia-Lactulose ordered but patient refuses DVT prophylaxis with Lovenox but pt is refusing, counseling done again Disposition: continue inpatient care IV line out and Patient refusing new iv line, I had to speak with him and he agree then I gave him a bolus of NSS. We spoke about hospice and compliance. He denies SI/HI but would not answered about being depressed. I will consult Mental health for possible depression. Patient is refusing to engage in psych evaluation. Mother did not come to discuss hospice and overall care, Trying to get to SNF, [facility] has accepted but waiting for medicaid verification from patient. History Interval history: Patient was seen and examined. Follow-up on current diagnosis of hypotension. Overnight uneventful. Patient denies any chest pain, shortness breath, nausea/vomiting or severe headaches. Imaging, nursing note, chart, labs and old chart reviewed. Discussed with patient. Hospitalist Physical - Physical exam Narrative exam: Gen: cachetic, unkempt, NAD, Awake, Alert, Orientated x 3 HEENT: NCAT, EOMI, PERRL, OP dry and crusty, whitish Neck: supple, no adenopathy, no thyromegaly, no JVD CVS/Heart: RRR, normal S1S2, pulses present bilaterally Chest/Lungs: CTA B, Symmetrical chest expansion, good air entry bilaterally GI/Abdomen: soft, NTND, good bowel sounds, no guarding or rebound /Bladder: no suprapubic tenderness, no CVA or paraspinal tenderness Extermity/Skin: no c/c/e, no obvious rash MSK: FROM x 4 Neuro: CN 2-12 grossly intact, no new focal deficits Psych: calm - Constitutional Vitals: Temp Pulse Resp BP Pulse Ox 98.1 F 72 18 99/66 100 09/18/18 16:53 09/18/18 22:00 09/18/18 16:53 09/18/18 20:00 09/18/18 08:54 General appearance: Present: no acute distress, well-nourished Results - Labs CBC & Chem 7: 09/17/18 10:52 09/15/18 04:31 Labs: Laboratory Last Values WBC 1.2 K/mm3 (4.5-11.0) L* 09/17/18 10:52 RBC 3.03 M/mm3 (3.65-5.03) L 09/17/18 10:52 Hgb 8.9 gm/dl (11.8-15.2) L 09/17/18 10:52 Hct 27.2 % (35.5-45.6) L 09/17/18 10:52 MCV 90 fl (84-94) 09/17/18 10:52 MCH 29 pg (28-32) 09/17/18 10:52 MCHC 33 % (32-34) 09/17/18 10:52 RDW 19.5 % (13.2-15.2) H 09/17/18 10:52 Plt Count 59 K/mm3 (140-440) L 09/17/18 10:52 Lymph % (Auto) 6.1 % (13.4-35.0) L 09/08/18 06:39 [place] % (Auto) [employer] 09/17/18 10:52 Eos % (Auto) 0.0 % (0.0-4.3) 09/08/18 06:39 Baso % (Auto) 0.2 % (0.0-1.8) 09/08/18 06:39 Lymph # 0.3 K/mm3 (1.2-5.4) L 09/08/18 06:39 [place] # 0.3 K/mm3 (0.0-0.8) 09/08/18 06:39 Eos # 0.0 K/mm3 (0.0-0.4) 09/08/18 06:39 Baso # 0.0 K/mm3 (0.0-0.1) 09/08/18 06:39 Add Manual Diff Complete 09/17/18 10:52 Total Counted 50 09/17/18 10:52 Seg Neutrophils % 87.3 % (40.0-70.0) H 09/08/18 06:39 Seg Neuts % (Manual) 68.0 % (40.0-70.0) 09/17/18 10:52 Band Neutrophils % 0 % 09/17/18 10:52 Lymphocytes % (Manual) 16.0 % (13.4-35.0) 09/17/18 10:52 Reactive Lymphs % (Man) 2.0 % 09/17/18 10:52 Monocytes % (Manual) 14.0 % (0.0-7.3) H 09/17/18 10:52 Eosinophils % (Manual) 0 % (0.0-4.3) 09/17/18 10:52 Basophils % (Manual) 0 % (0.0-1.8) 09/17/18 10:52 Metamyelocytes % 0 % 09/17/18 10:52 Myelocytes % 0 % 09/17/18 10:52 Promyelocytes % 0 % 09/17/18 10:52 Blast Cells % 0 % 09/17/18 10:52 Nucleated RBC % 2.0 % (0.0-0.9) H 09/17/18 10:52 Seg Neutrophils # 4.5 K/mm3 (1.8-7.7) 09/08/18 06:39 Seg Neutrophils # Man 0.8 K/mm3 (1.8-7.7) L 09/17/18 10:52 Band Neutrophils # 0.0 K/mm3 09/17/18 10:52 Lymphocytes # (Manual) 0.2 K/mm3 (1.2-5.4) L 09/17/18 10:52 Abs React Lymphs (Man) 0.0 K/mm3 09/17/18 10:52 Monocytes # (Manual) 0.2 K/mm3 (0.0-0.8) 09/17/18 10:52 Eosinophils # (Manual) 0.0 K/mm3 (0.0-0.4) 09/17/18 10:52 Basophils # (Manual) 0.0 K/mm3 (0.0-0.1) 09/17/18 10:52 Metamyelocytes # 0.0 K/mm3 09/17/18 10:52 Myelocytes # 0.0 K/mm3 09/17/18 10:52 Promyelocytes # 0.0 K/mm3 09/17/18 10:52 Blast Cells # 0.0 K/mm3 09/17/18 10:52 WBC Morphology Not Reportable 09/17/18 10:52 Hypersegmented Neuts Not Reportable 09/17/18 10:52 Hyposegmented Neuts Not Reportable 09/17/18 10:52 Hypogranular Neuts Not Reportable 09/17/18 10:52 Smudge Cells Not Reportable 09/17/18 10:52 Toxic Granulation Not Reportable 09/17/18 10:52 Toxic Vacuolation Not Reportable 09/17/18 10:52 Dohle Bodies Not Reportable 09/17/18 10:52 Pelger-Huet Anomaly Not Reportable 09/17/18 10:52 Giovanni Rods Not Reportable 09/17/18 10:52 Platelet Estimate Consistent w auto 09/17/18 10:52 Clumped Platelets Not Reportable 09/17/18 10:52 Plt Clumps, EDTA Not Reportable 09/17/18 10:52 Large Platelets Not Reportable 09/17/18 10:52 Giant Platelets Not Reportable 09/17/18 10:52 Platelet Satelliting Not Reportable 09/17/18 10:52 Plt Morphology Comment Not Reportable 09/17/18 10:52 RBC Morphology Not Reportable 09/17/18 10:52 Dimorphic RBCs Not Reportable 09/17/18 10:52 Polychromasia Not Reportable 09/17/18 10:52 Hypochromasia Not Reportable 09/17/18 10:52 Poikilocytosis 3+ 09/17/18 10:52 Anisocytosis 2+ 09/17/18 10:52 Microcytosis Not Reportable 09/17/18 10:52 Macrocytosis Not Reportable 09/17/18 10:52 Spherocytes Not Reportable 09/17/18 10:52 Pappenheimer Bodies Not Reportable 09/17/18 10:52 Sickle Cells Rare 09/17/18 10:52 Target Cells Not Reportable 09/17/18 10:52 Tear Drop Cells 1+ 09/17/18 10:52 Ovalocytes 2+ 09/17/18 10:52 Helmet Cells Not Reportable 09/17/18 10:52 [place] Bodies Not Reportable 09/17/18 10:52 [place] Rings Not Reportable 09/17/18 10:52 Cinthya Cells Not Reportable 09/17/18 10:52 Bite Cells Not Reportable 09/17/18 10:52 Crenated Cell Not Reportable 09/17/18 10:52 Elliptocytes 1+ 09/17/18 10:52 Acanthocytes (Spur) Not Reportable 09/17/18 10:52 Rouleaux Not Reportable 09/17/18 10:52 Hemoglobin C Crystals Not Reportable 09/17/18 10:52 Schistocytes Not Reportable 09/17/18 10:52 Malaria parasites Not Reportable 09/17/18 10:52 Carlos A Bodies Not Reportable 09/17/18 10:52 Hem Pathologist Commnt No 09/17/18 10:52 PT 15.1 Sec. (12.2-14.9) H 09/11/18 05:22 INR 1.12 (0.87-1.13) 09/11/18 05:22 Sodium 140 mmol/L (137-145) D 09/15/18 04:31 Potassium 3.9 mmol/L (3.6-5.0) 09/15/18 04:31 Chloride 112.0 mmol/L (98-107) H 09/15/18 04:31 Carbon Dioxide 13 mmol/L (22-30) L 09/15/18 04:31 Anion Gap 19 mmol/L 09/15/18 04:31 BUN 15 mg/dL (9-20) 09/15/18 04:31 Creatinine 1.3 mg/dL (0.8-1.5) 09/15/18 04:31 Estimated GFR > 60 ml/min 09/15/18 04:31 BUN/Creatinine Ratio 12 % 09/15/18 04:31 Glucose 65 mg/dL (75-100) L 09/15/18 04:31 POC Glucose 91 (70-105) 09/09/18 07:18 Lactic Acid 1.30 mmol/L (0.7-2.0) 09/05/18 03:50 Calcium 8.6 mg/dL (8.4-10.2) D 09/15/18 04:31 Iron 26 ug/dL (49-181) L 09/07/18 10:38 TIBC 212 mcg/dL (250-450) L 09/07/18 10:38 Ferritin 2762.0 ng/mL (13.0-400.0) H 09/07/18 10:38 Total Bilirubin < 0.20 mg/dL (0.1-1.2) 09/12/18 12:28 Direct Bilirubin < 0.2 mg/dL (0-0.2) 09/08/18 13:43 Indirect Bilirubin 0.0 mg/dL 09/06/18 10:40 AST 126 units/L (5-40) H 09/12/18 12:28 ALT 77 units/L (7-56) H 09/12/18 12:28 Alkaline Phosphatase 124 units/L (35-129) 09/12/18 12:28 Ammonia 51.0 umol/L (25-60) 09/12/18 12:28 Total Creatine Kinase 101 units/L (55-170) 09/04/18 21:00 Troponin T < 0.010 ng/mL (0.00-0.029) 09/10/18 12:14 Total Protein 5.7 g/dL (6.3-8.2) L 09/12/18 12:28 Albumin 2.6 g/dL (3.9-5) L 09/12/18 12:28 Albumin/Globulin Ratio 0.8 % 09/12/18 12:28 TSH 0.960 mlU/mL (0.270-4.200) 09/04/18 21:00 Urine Color Yellow (Yellow) 09/04/18 23:30 Urine Turbidity Clear (Clear) 09/04/18 23:30 Urine pH 6.0 (5.0-7.0) 09/04/18 23:30 Ur Specific [place] 1.012 (1.003-1.030) 09/04/18 23:30 Urine Protein <15 mg/dl mg/dL (Negative) 09/04/18 23:30 Urine Glucose (UA) Neg mg/dL (Negative) 09/04/18 23:30 Urine Ketones Neg mg/dL (Negative) 09/04/18 23:30 Urine Blood Neg (Negative) 09/04/18 23:30 Urine Nitrite Neg (Negative) 09/04/18 23:30 Urine Bilirubin Neg (Negative) 09/04/18 23:30 Urine Urobilinogen < 2.0 mg/dL (<2.0) 09/04/18 23:30 Ur Leukocyte Esterase Neg (Negative) 09/04/18 23:30 Urine WBC (Auto) 1.0 /HPF (0.0-6.0) 09/04/18 23:30 Urine RBC (Auto) 2.0 /HPF (0.0-6.0) 09/04/18 23:30 Urine Bacteria (Auto) 1+ /HPF (Negative) 09/04/18 23:30 Urine Mucus Few /HPF 09/04/18 23:30 Urine Opiates Screen Presumptive negative 09/04/18 23:30 Urine Methadone Screen Presumptive negative 09/04/18 23:30 Ur Barbiturates Screen Presumptive negative 09/04/18 23:30 Ur Phencyclidine Scrn Presumptive negative 09/04/18 23:30 Ur Amphetamines Screen Presumptive negative 09/04/18 23:30 U Benzodiazepines Scrn Presumptive negative 09/04/18 23:30 Urine Cocaine Screen Presumptive negative 09/04/18 23:30 U Marijuana (THC) Screen Presumptive negative 09/04/18 23:30 Drugs of Abuse Note Disclamer 09/04/18 23:30 Plasma/Serum Alcohol < 0.01 % (0-0.07) 09/04/18 21:00 JAMEEL Screen Negative (Negative) 09/05/18 16:19 Sm ([place]) Antibody <1.0 AI (<1.0) 09/05/18 16:19 Mitochondria M2 Ab <=20.0 U (<=20.0) 09/05/18 16:19 CMV DNA PCR log copy preparer/mL See scanned results 09/08/18 16:50 Hepatitis A IgM Ab Non-reactive (NonReactive) 09/08/18 06:39 Hep Bs Antigen Non-reactive (Negative) 09/08/18 06:39 Hep B Core IgM Ab Non-reactive (NonReactive) 09/08/18 06:39 Hepatitis C Antibody Non-reactive (NonReactive) 09/08/18 06:39 Miscellaneous Test Flexitest 1 09/09/18 07:03 Active Medications - Current Medications Current Medications: Generic Name Dose Route Start Last Admin Trade Name Freq PRN Reason Stop Dose Admin Acetaminophen 650 mg 09/05/18 02:48 09/09/18 06:44 Tylenol PO 650 mg Q4H PRN Administration Pain MILD(1-3)/Fever >100.5/VILLAREAL Acetaminophen/Hydrocodone Bitart 1 each 09/05/18 02:48 [place] 5/325 PO Q4H PRN Pain, Moderate (4-6) Aspirin 81 mg 09/09/18 17:00 09/19/18 11:43 Baby Aspirin PO 81 mg QDAY GLEN Administration Enoxaparin Sodium 40 mg 09/05/18 10:00 09/19/18 11:58 Lovenox SUB-Q Not Given QDAY GLEN Famotidine 10 mg 09/05/18 10:00 09/19/18 11:43 Pepcid IV 10 mg BID GLEN Administration Sodium Chloride 1,000 mls @ 100 mls/hr 09/16/18 08:00 09/18/18 09:26 Nacl 0.9% 1000 Ml IV 100 mls/hr DIRECT GLEN Administration Midodrine 10 mg 09/05/18 19:00 09/19/18 11:43 Proamatine PO 10 mg TID@0800,1200,1600 GLEN Administration Nystatin 500,000 unit 09/10/18 20:00 09/19/18 11:58 Nystatin PO Not Given TID GLEN Ondansetron HCl 4 mg 09/05/18 02:48 09/10/18 13:06 Zofran IV 4 mg Q8H PRN Administration Nausea And Vomiting Sodium Chloride 10 ml 09/05/18 10:00 09/19/18 11:56 Sodium Chloride Flush Syringe 10 Ml IV 10 ml BID GLEN Administration Sodium Chloride 10 ml 09/05/18 02:48 Sodium Chloride Flush Syringe 10 Ml IV PRN PRN LINE FLUSH Trimethoprim/Sulfamethoxazole 1 each 09/14/18 10:00 09/19/18 11:43 Bactrim Ds PO 1 each DAILY GLEN Administration Nutrition/Malnutrition Assess - Dietary Evaluation Nutrition/Malnutrition Findings: Nutrition Notes Start: 09/06/18 15:57 Freq: Status: Active Protocol: Document 09/17/18 17:00 RM (Rec: 09/17/18 17:03 RM [id number]) Nutrition Notes Initial or Follow up Reassessment Other Pertinent Diagnosis HIV/AIDS, encephalopathy, noncompliance Current Diet Regular + Ensure Clear daily Labs/Tests Reviewed Pertinent Medications Reviewed Height 5 ft 3 in Weight 47.6 kg [place] Body Weight (kg) 56.36 BMI 18.6 Subjective/Other Information Pt stated that his appetite alright and would not answer further questions. Noted various uneaten foods at bedside including cecilia crackers and soup. Noted open Ensure Clear with very little drunk. Percent of energy/protein needs met: 0%/0% Burn Absent Trauma Absent #1 Nutrition Diagnosis Malnutrition Diagnosis Progress(for reassessment Continues documentation) Is patient on ventilator? No Is Patient Ambulatory and/or Out of Bed No REE-([facility]-confined to bed) 1528.812 Calculation Used for Recommendations [facility] Additional Notes Pro needs 1.2-1.5g/k-69 g /day Fluid needs 1ml/kcal Nutrition Intervention Change Diet Order: Continue current Add Supplement/Snack (indicate name/kcal Was not previously D/C'd. /protein ) Ensure Clear 1 daily Goal #1 Meet at least 75% of calorie and protein needs Anticipated Discharge Needs: Regular diet Follow-Up By: 09/20/18 Additional Comments Follow for PO and ONS intakes
--- NOTE | 2018-09-19 16:28 | Progress Note ---
Assessment and Plan Severe sepsis on background of chronic hypotension AMS due to acute metabolic encephalopathy: HIV/AIDS Panycytopenia Severe protein calorie malnutrition Transaminitis - may be due to ischemic hepatitis, HIV/AIDs hepatopathy, infectious etiology with viral hepatitis, vs drug toxicity. Anemia of chronic disease Acute Renal Failure, resolved Oral Candidiasis Non-adherence to medical therapy Hyperammonemia Metabolic acidosis - Continue with gentle IVF. He remains asymptomatic with the hypotension. -Continue midodrine -Anti-infective per ID service -Nutritional support, discussed possibility of nutritional supplements -SCDs for VTE prophylaxis, patient declines pharmacologic prophylaxis -PT/OT to treat -Limit blood draws, in view of anemia Continue all supportive care Subjective Date of service: 09/19/18 Principal diagnosis: elevated LFTs, oral candidiasis Interval history: Patient is seen today for: severe sepsis, hypotension, acute encephaloapthy, HIV-AIDS Seen and examined at bedside; 24-hour events reviewed; nursing and respiratory care staff consulted; no adverse overnight events reported to me; Blood pressure is labile, but patient remains asymptomatic. He denies any fevers, no chills. Appetite is poor. He has a flat affect. Denies any chest pain, no shortness of breath. Objective Constitutional: no acute distress, alert, other (Weak) Eyes: non-icteric ENT: oropharynx moist Neck: supple, no lymphadenopathy Ascultation: Bilateral: diminished breath sounds, other (Prolonged expiratory phase.) Cardiovascular: regular rate and rhythm Gastrointestinal: normoactive bowel sounds, soft, non-tender Integumentary: normal Extremities: no cyanosis, no edema Neurologic: other (Patient is sleeping.) Psychiatric: other (Patient sleeping.) CBC and BMP: 10/02/18 06:00 10/02/18 06:00 ABG, PT/INR, D-dimer: PT/INR, D-dimer PT 15.1 Sec. (12.2-14.9) H 09/11/18 05:22 INR 1.12 (0.87-1.13) 09/11/18 05:22 Abnormal lab findings: Abnormal Labs 09/04/18 09/04/18 09/04/18 21:00 21:00 22:32 WBC RBC 3.23 L Hgb 9.6 L Hct 28.9 L RDW 18.8 H Plt Count Lymph % (Auto) [place] % (Auto) 12.5 H Lymph # 0.7 L Seg Neutrophils % 72.4 H Seg Neuts % (Manual) Lymphocytes % (Manual) Monocytes % (Manual) Nucleated RBC % Seg Neutrophils # Man Lymphocytes # (Manual) PT Sodium Potassium Chloride 109.9 H Carbon Dioxide 21 L BUN 31 H Creatinine Glucose Lactic Acid 2.40 H* Calcium 8.2 L Iron TIBC Ferritin AST 200 H ALT 136 H Alkaline Phosphatase 138 H Ammonia Total Protein Albumin 3.5 L 09/04/18 09/05/18 09/05/18 22:32 16:19 16:19 WBC RBC Hgb Hct RDW Plt Count Lymph % (Auto) [place] % (Auto) Lymph # Seg Neutrophils % Seg Neuts % (Manual) Lymphocytes % (Manual) Monocytes % (Manual) Nucleated RBC % Seg Neutrophils # Man Lymphocytes # (Manual) PT Sodium Potassium Chloride 112.4 H Carbon Dioxide 19 L BUN Creatinine Glucose Lactic Acid Calcium 8.1 L Iron TIBC 223 L Ferritin AST 241 H ALT 138 H Alkaline Phosphatase Ammonia 64.0 H Total Protein Albumin 3.1 L 09/05/18 09/06/18 09/06/18 16:19 10:40 10:40 WBC 2.4 L RBC 2.67 L Hgb 7.7 L Hct 23.7 L RDW 18.7 H Plt Count 135 L Lymph % (Auto) 10.0 L [place] % (Auto) 8.4 H Lymph # 0.2 L Seg Neutrophils % 81.1 H Seg Neuts % (Manual) Lymphocytes % (Manual) Monocytes % (Manual) Nucleated RBC % Seg Neutrophils # Man Lymphocytes # (Manual) PT Sodium Potassium Chloride 112.1 H Carbon Dioxide 19 L BUN Creatinine 0.7 L Glucose Lactic Acid Calcium 7.8 L Iron TIBC Ferritin 2880.0 H AST 263 H ALT 143 H Alkaline Phosphatase Ammonia Total Protein 6.1 L Albumin 2.8 L 09/07/18 09/07/18 09/08/18 10:38 10:38 06:39 WBC RBC 2.86 L Hgb 8.3 L Hct 25.2 L RDW 18.3 H Plt Count 123 L Lymph % (Auto) 6.1 L [place] % (Auto) Lymph # 0.3 L Seg Neutrophils % 87.3 H Seg Neuts % (Manual) Lymphocytes % (Manual) Monocytes % (Manual) Nucleated RBC % Seg Neutrophils # Man Lymphocytes # (Manual) PT Sodium Potassium Chloride Carbon Dioxide BUN Creatinine Glucose Lactic Acid Calcium Iron 26 L TIBC 212 L Ferritin 2762.0 H AST ALT Alkaline Phosphatase Ammonia Total Protein Albumin 09/08/18 09/08/18 09/09/18 06:39 13:43 07:03 WBC RBC Hgb Hct RDW Plt Count Lymph % (Auto) [place] % (Auto) Lymph # Seg Neutrophils % Seg Neuts % (Manual) Lymphocytes % (Manual) Monocytes % (Manual) Nucleated RBC % Seg Neutrophils # Man Lymphocytes # (Manual) PT Sodium Potassium 3.2 L 3.5 L Chloride 111.9 H 108.6 H Carbon Dioxide 13 L 15 L BUN 6 L 4 L Creatinine Glucose 118 H Lactic Acid Calcium 7.5 L 7.5 L Iron TIBC Ferritin AST 117 H 130 H ALT 87 H 86 H Alkaline Phosphatase Ammonia Total Protein 5.6 L 6.0 L Albumin 2.6 L 2.6 L 09/09/18 09/10/18 09/10/18 07:31 04:26 04:26 WBC 3.5 L 2.1 L RBC 2.82 L 3.10 L Hgb 8.2 L 9.0 L Hct 24.6 L 27.1 L RDW 18.8 H 18.6 H Plt Count 136 L 139 L Lymph % (Auto) [place] % (Auto) Lymph # Seg Neutrophils % Seg Neuts % (Manual) 77.0 H Lymphocytes % (Manual) 11.0 L Monocytes % (Manual) 11.0 H Nucleated RBC % Seg Neutrophils # Man 1.6 L Lymphocytes # (Manual) 0.2 L PT Sodium Potassium Chloride 112.7 H Carbon Dioxide 14 L BUN 5 L Creatinine Glucose 109 H Lactic Acid Calcium 7.7 L Iron TIBC Ferritin AST 110 H ALT 76 H Alkaline Phosphatase Ammonia Total Protein 6.0 L Albumin 2.8 L 09/11/18 09/12/18 09/13/18 05:22 12:28 07:23 WBC 1.1 L* RBC 2.82 L Hgb 8.2 L Hct 25.5 L RDW 19.5 H Plt Count 103 L Lymph % (Auto) [place] % (Auto) Lymph # Seg Neutrophils % Seg Neuts % (Manual) Lymphocytes % (Manual) Monocytes % (Manual) 18.0 H Nucleated RBC % Seg Neutrophils # Man 0.6 L Lymphocytes # (Manual) 0.3 L PT 15.1 H Sodium 133 L Potassium 3.5 L Chloride 108.8 H Carbon Dioxide 14 L BUN 6 L Creatinine Glucose 123 H Lactic Acid Calcium 7.4 L Iron TIBC Ferritin AST 126 H ALT 77 H Alkaline Phosphatase Ammonia Total Protein 5.7 L Albumin 2.6 L 09/15/18 09/15/18 09/17/18 00:51 04:31 10:52 WBC 1.2 L* 1.2 L* RBC 3.38 L 3.03 L Hgb 9.7 L 8.9 L Hct 29.5 L 27.2 L RDW 19.0 H 19.5 H Plt Count 95 L 59 L Lymph % (Auto) [place] % (Auto) Lymph # Seg Neutrophils % Seg Neuts % (Manual) Lymphocytes % (Manual) Monocytes % (Manual) 24.0 H 14.0 H Nucleated RBC % 2.0 H Seg Neutrophils # Man 0.6 L 0.8 L Lymphocytes # (Manual) 0.3 L 0.2 L PT Sodium Potassium Chloride 112.0 H Carbon Dioxide 13 L BUN Creatinine Glucose 65 L Lactic Acid Calcium Iron TIBC Ferritin AST ALT Alkaline Phosphatase Ammonia Total Protein Albumin
[2018-09-19] MEDS ORDERED: NACL 0.9% 500 ML 500 ML IV ONE (23:52)
--- NOTE | 2018-09-20 11:04 | Progress Note ---
Assessment and Plan Assessment and plan: Patient is a 42 yo man with a history of HIV/AIDs and anemia who presented to [facility] ED with AMS on 09/04/18. Patient was just discharged from here on 08/04/2018 for sepsis, LLL, lingula pneumonia and severe oral candidiasis * CT chest wo contrast IMPRESSION: Bilateral pneumonia with findings most prominent in the left lower lobe as described. Bronchiectatic changes in left lower lobe noted also. Scattered blebs in the left lung.. * GB Ultrasound IMPRESSION: The gallbladder lumen is contracted. The common bile duct is normal measuring 2 mm. * CT head without contrast Impression: No acute intracranial abnormality, chronic maxillary and ethmoid sinusitis -Hypotension, acute on chronic hypotension, bp has been low since Jun 2018 (as far as our records go), so I don't believe the chronic hypotension is sepsis related, his effective circulatory volume is low due to his malnutrition from severe HIV/AIDs which causing the pancytopenia, severe malnutrition, oral thrush, etc... Cardiology and ID recommends Hospice, but patient refuses. Continue present management -AMS due to acute metabolic encephalopathy from HIV encephalopathy/FTT/malnutrition, improving: consulted Assistant Professor Of English, -HIV/AIDs with pancytopenia/bone marrow failure most likely: consulted ID -Worsening Transaminitis: consulted GI, cmp daily, reviewed GB ultrasound -AOCD: monitor cbc daily -Severe Malnutrition: consulted Assistant Professor Of English -Acute Renal Failure, vasomotor nephropathy, poa, Cr is 1.0, up from baseline of 0.5: repeat BMP in am -Oral Candidiasis, treated, tolerating a diet, will monitor, GI evaluated -Non-adherence to medical therapy: counseling done -Lactic acidosis, Resolved status post IV hydration -Metabolic acidosis: On IV fluid, will monitor bicarbonate level -Hyperammonemia-Lactulose ordered but patient refuses DVT prophylaxis with Lovenox but pt is refusing, counseling done again Disposition: continue inpatient care IV line out and Patient refusing new iv line, I had to speak with him and he agree then I gave him a bolus of NSS. We spoke about hospice and compliance. He denies SI/HI but would not answered about being depressed. I will consult Mental health for possible depression. Patient is refusing to engage in psych evaluation. Mother did not come to discuss hospice and overall care, Trying to get to SNF, [facility] has accepted but waiting for medicaid verification from patient. Transfer to [facility] History Interval history: Patient was seen and examined. Follow-up on current diagnosis of hypotension. Overnight uneventful. Patient denies any chest pain, shortness breath, nausea/vomiting or severe headaches. Imaging, nursing note, chart, labs and old chart reviewed. Discussed with patient. Hospitalist Physical - Physical exam Narrative exam: Gen: cachetic, unkempt, NAD, Awake, Alert, Orientated x 3 HEENT: NCAT, EOMI, PERRL, OP dry and crusty, whitish Neck: supple, no adenopathy, no thyromegaly, no JVD CVS/Heart: RRR, normal S1S2, pulses present bilaterally Chest/Lungs: CTA B, Symmetrical chest expansion, good air entry bilaterally GI/Abdomen: soft, NTND, good bowel sounds, no guarding or rebound /Bladder: no suprapubic tenderness, no CVA or paraspinal tenderness Extermity/Skin: no c/c/e, no obvious rash MSK: FROM x 4 Neuro: CN 2-12 grossly intact, no new focal deficits Psych: calm - Constitutional Vitals: Temp Pulse Resp BP Pulse Ox 97.9 F 95 H 18 112/67 100 09/20/18 09:06 09/20/18 09:06 09/20/18 09:06 09/20/18 09:06 09/20/18 09:06 General appearance: Present: no acute distress, well-nourished Results - Labs CBC & Chem 7: 09/17/18 10:52 09/15/18 04:31 Labs: Laboratory Last Values WBC 1.2 K/mm3 (4.5-11.0) L* 09/17/18 10:52 RBC 3.03 M/mm3 (3.65-5.03) L 09/17/18 10:52 Hgb 8.9 gm/dl (11.8-15.2) L 09/17/18 10:52 Hct 27.2 % (35.5-45.6) L 09/17/18 10:52 MCV 90 fl (84-94) 09/17/18 10:52 MCH 29 pg (28-32) 09/17/18 10:52 MCHC 33 % (32-34) 09/17/18 10:52 RDW 19.5 % (13.2-15.2) H 09/17/18 10:52 Plt Count 59 K/mm3 (140-440) L 09/17/18 10:52 Lymph % (Auto) 6.1 % (13.4-35.0) L 09/08/18 06:39 Evangeline % (Auto) Veneer Glue Jointer Feedback 09/17/18 10:52 Eos % (Auto) 0.0 % (0.0-4.3) 09/08/18 06:39 Baso % (Auto) 0.2 % (0.0-1.8) 09/08/18 06:39 Lymph # 0.3 K/mm3 (1.2-5.4) L 09/08/18 06:39 Evangeline # 0.3 K/mm3 (0.0-0.8) 09/08/18 06:39 Eos # 0.0 K/mm3 (0.0-0.4) 09/08/18 06:39 Baso # 0.0 K/mm3 (0.0-0.1) 09/08/18 06:39 Add Manual Diff Complete 09/17/18 10:52 Total Counted 50 09/17/18 10:52 Seg Neutrophils % 87.3 % (40.0-70.0) H 09/08/18 06:39 Seg Neuts % (Manual) 68.0 % (40.0-70.0) 09/17/18 10:52 Band Neutrophils % 0 % 09/17/18 10:52 Lymphocytes % (Manual) 16.0 % (13.4-35.0) 09/17/18 10:52 Reactive Lymphs % (Man) 2.0 % 09/17/18 10:52 Monocytes % (Manual) 14.0 % (0.0-7.3) H 09/17/18 10:52 Eosinophils % (Manual) 0 % (0.0-4.3) 09/17/18 10:52 Basophils % (Manual) 0 % (0.0-1.8) 09/17/18 10:52 Metamyelocytes % 0 % 09/17/18 10:52 Myelocytes % 0 % 09/17/18 10:52 Promyelocytes % 0 % 09/17/18 10:52 Blast Cells % 0 % 09/17/18 10:52 Nucleated RBC % 2.0 % (0.0-0.9) H 09/17/18 10:52 Seg Neutrophils # 4.5 K/mm3 (1.8-7.7) 09/08/18 06:39 Seg Neutrophils # Man 0.8 K/mm3 (1.8-7.7) L 09/17/18 10:52 Band Neutrophils # 0.0 K/mm3 09/17/18 10:52 Lymphocytes # (Manual) 0.2 K/mm3 (1.2-5.4) L 09/17/18 10:52 Abs React Lymphs (Man) 0.0 K/mm3 09/17/18 10:52 Monocytes # (Manual) 0.2 K/mm3 (0.0-0.8) 09/17/18 10:52 Eosinophils # (Manual) 0.0 K/mm3 (0.0-0.4) 09/17/18 10:52 Basophils # (Manual) 0.0 K/mm3 (0.0-0.1) 09/17/18 10:52 Metamyelocytes # 0.0 K/mm3 09/17/18 10:52 Myelocytes # 0.0 K/mm3 09/17/18 10:52 Promyelocytes # 0.0 K/mm3 09/17/18 10:52 Blast Cells # 0.0 K/mm3 09/17/18 10:52 WBC Morphology Not Reportable 09/17/18 10:52 Hypersegmented Neuts Not Reportable 09/17/18 10:52 Hyposegmented Neuts Not Reportable 09/17/18 10:52 Hypogranular Neuts Not Reportable 09/17/18 10:52 Smudge Cells Not Reportable 09/17/18 10:52 Toxic Granulation Not Reportable 09/17/18 10:52 Toxic Vacuolation Not Reportable 09/17/18 10:52 Dohle Bodies Not Reportable 09/17/18 10:52 Pelger-Huet Anomaly Not Reportable 09/17/18 10:52 Giovanni Rods Not Reportable 09/17/18 10:52 Platelet Estimate Consistent w auto 09/17/18 10:52 Clumped Platelets Not Reportable 09/17/18 10:52 Plt Clumps, EDTA Not Reportable 09/17/18 10:52 Large Platelets Not Reportable 09/17/18 10:52 Giant Platelets Not Reportable 09/17/18 10:52 Platelet Satelliting Not Reportable 09/17/18 10:52 Plt Morphology Comment Not Reportable 09/17/18 10:52 RBC Morphology Not Reportable 09/17/18 10:52 Dimorphic RBCs Not Reportable 09/17/18 10:52 Polychromasia Not Reportable 09/17/18 10:52 Hypochromasia Not Reportable 09/17/18 10:52 Poikilocytosis 3+ 09/17/18 10:52 Anisocytosis 2+ 09/17/18 10:52 Microcytosis Not Reportable 09/17/18 10:52 Macrocytosis Not Reportable 09/17/18 10:52 Spherocytes Not Reportable 09/17/18 10:52 Pappenheimer Bodies Not Reportable 09/17/18 10:52 Sickle Cells Rare 09/17/18 10:52 Target Cells Not Reportable 09/17/18 10:52 Tear Drop Cells 1+ 09/17/18 10:52 Ovalocytes 2+ 09/17/18 10:52 Helmet Cells Not Reportable 09/17/18 10:52 [place] Bodies Not Reportable 09/17/18 10:52 [place] Rings Not Reportable 09/17/18 10:52 Cinthya Cells Not Reportable 09/17/18 10:52 Bite Cells Not Reportable 09/17/18 10:52 Crenated Cell Not Reportable 09/17/18 10:52 Elliptocytes 1+ 09/17/18 10:52 Acanthocytes (Spur) Not Reportable 09/17/18 10:52 Rouleaux Not Reportable 09/17/18 10:52 Hemoglobin C Crystals Not Reportable 09/17/18 10:52 Schistocytes Not Reportable 09/17/18 10:52 Malaria parasites Not Reportable 09/17/18 10:52 Carlos A Bodies Not Reportable 09/17/18 10:52 Hem Pathologist Commnt No 09/17/18 10:52 PT 15.1 Sec. (12.2-14.9) H 09/11/18 05:22 INR 1.12 (0.87-1.13) 09/11/18 05:22 Sodium 140 mmol/L (137-145) D 09/15/18 04:31 Potassium 3.9 mmol/L (3.6-5.0) 09/15/18 04:31 Chloride 112.0 mmol/L (98-107) H 09/15/18 04:31 Carbon Dioxide 13 mmol/L (22-30) L 09/15/18 04:31 Anion Gap 19 mmol/L 09/15/18 04:31 BUN 15 mg/dL (9-20) 09/15/18 04:31 Creatinine 1.3 mg/dL (0.8-1.5) 09/15/18 04:31 Estimated GFR > 60 ml/min 09/15/18 04:31 BUN/Creatinine Ratio 12 % 09/15/18 04:31 Glucose 65 mg/dL (75-100) L 09/15/18 04:31 POC Glucose 91 (70-105) 09/09/18 07:18 Lactic Acid 1.30 mmol/L (0.7-2.0) 09/05/18 03:50 Calcium 8.6 mg/dL (8.4-10.2) D 09/15/18 04:31 Iron 26 ug/dL (49-181) L 09/07/18 10:38 TIBC 212 mcg/dL (250-450) L 09/07/18 10:38 Ferritin 2762.0 ng/mL (13.0-400.0) H 09/07/18 10:38 Total Bilirubin < 0.20 mg/dL (0.1-1.2) 09/12/18 12:28 Direct Bilirubin < 0.2 mg/dL (0-0.2) 09/08/18 13:43 Indirect Bilirubin 0.0 mg/dL 09/06/18 10:40 AST 126 units/L (5-40) H 09/12/18 12:28 ALT 77 units/L (7-56) H 09/12/18 12:28 Alkaline Phosphatase 124 units/L (35-129) 09/12/18 12:28 Ammonia 51.0 umol/L (25-60) 09/12/18 12:28 Total Creatine Kinase 101 units/L (55-170) 09/04/18 21:00 Troponin T < 0.010 ng/mL (0.00-0.029) 09/10/18 12:14 Total Protein 5.7 g/dL (6.3-8.2) L 09/12/18 12:28 Albumin 2.6 g/dL (3.9-5) L 09/12/18 12:28 Albumin/Globulin Ratio 0.8 % 09/12/18 12:28 TSH 0.960 mlU/mL (0.270-4.200) 09/04/18 21:00 Urine Color Yellow (Yellow) 09/04/18 23:30 Urine Turbidity Clear (Clear) 09/04/18 23:30 Urine pH 6.0 (5.0-7.0) 09/04/18 23:30 Ur Specific [place] 1.012 (1.003-1.030) 09/04/18 23:30 Urine Protein <15 mg/dl mg/dL (Negative) 09/04/18 23:30 Urine Glucose (UA) Neg mg/dL (Negative) 09/04/18 23:30 Urine Ketones Neg mg/dL (Negative) 09/04/18 23:30 Urine Blood Neg (Negative) 09/04/18 23:30 Urine Nitrite Neg (Negative) 09/04/18 23:30 Urine Bilirubin Neg (Negative) 09/04/18 23:30 Urine Urobilinogen < 2.0 mg/dL (<2.0) 09/04/18 23:30 Ur Leukocyte Esterase Neg (Negative) 09/04/18 23:30 Urine WBC (Auto) 1.0 /HPF (0.0-6.0) 09/04/18 23:30 Urine RBC (Auto) 2.0 /HPF (0.0-6.0) 09/04/18 23:30 Urine Bacteria (Auto) 1+ /HPF (Negative) 09/04/18 23:30 Urine Mucus Few /HPF 09/04/18 23:30 Urine Opiates Screen Presumptive negative 09/04/18 23:30 Urine Methadone Screen Presumptive negative 09/04/18 23:30 Ur Barbiturates Screen Presumptive negative 09/04/18 23:30 Ur Phencyclidine Scrn Presumptive negative 09/04/18 23:30 Ur Amphetamines Screen Presumptive negative 09/04/18 23:30 U Benzodiazepines Scrn Presumptive negative 09/04/18 23:30 Urine Cocaine Screen Presumptive negative 09/04/18 23:30 U Marijuana (THC) Screen Presumptive negative 09/04/18 23:30 Drugs of Abuse Note Disclamer 09/04/18 23:30 Plasma/Serum Alcohol < 0.01 % (0-0.07) 09/04/18 21:00 JAMEEL Screen Negative (Negative) 09/05/18 16:19 Sm ([place]) Antibody <1.0 AI (<1.0) 09/05/18 16:19 Mitochondria M2 Ab <=20.0 U (<=20.0) 09/05/18 16:19 CMV DNA PCR log gyroscopic instrument mechanic/mL See scanned results 09/08/18 16:50 Hepatitis A IgM Ab Non-reactive (NonReactive) 09/08/18 06:39 Hep Bs Antigen Non-reactive (Negative) 09/08/18 06:39 Hep B Core IgM Ab Non-reactive (NonReactive) 09/08/18 06:39 Hepatitis C Antibody Non-reactive (NonReactive) 09/08/18 06:39 Miscellaneous Test Flexitest 1 09/09/18 07:03 Active Medications - Current Medications Current Medications: Generic Name Dose Route Start Last Admin Trade Name Freq PRN Reason Stop Dose Admin Acetaminophen 650 mg 09/05/18 02:48 09/09/18 06:44 Tylenol PO 650 mg Q4H PRN Administration Pain MILD(1-3)/Fever >100.5/VILLAREAL Acetaminophen/Hydrocodone Bitart 1 each 09/05/18 02:48 [place] 5/325 PO Q4H PRN Pain, Moderate (4-6) Aspirin 81 mg 09/09/18 17:00 09/19/18 11:43 Baby Aspirin PO 81 mg QDAY GLEN Administration Enoxaparin Sodium 40 mg 09/05/18 10:00 09/19/18 11:58 Lovenox SUB-Q Not Given QDAY GLEN Famotidine 10 mg 09/05/18 10:00 09/19/18 23:18 Pepcid IV 10 mg BID GLEN Administration Sodium Chloride 1,000 mls @ 100 mls/hr 09/16/18 08:00 09/18/18 09:26 Nacl 0.9% 1000 Ml IV 100 mls/hr DIRECT GLEN Administration Midodrine 10 mg 09/05/18 19:00 09/19/18 19:00 Proamatine PO Not Given TID@0800,1200,1600 GLEN Nystatin 500,000 unit 09/10/18 20:00 09/19/18 22:50 Nystatin PO Not Given TID GLEN Ondansetron HCl 4 mg 09/05/18 02:48 09/10/18 13:06 Zofran IV 4 mg Q8H PRN Administration Nausea And Vomiting Sodium Chloride 10 ml 09/05/18 10:00 09/19/18 22:50 Sodium Chloride Flush Syringe 10 Ml IV 10 ml BID GLEN Administration Sodium Chloride 10 ml 09/05/18 02:48 Sodium Chloride Flush Syringe 10 Ml IV PRN PRN LINE FLUSH Trimethoprim/Sulfamethoxazole 1 each 09/14/18 10:00 09/19/18 11:43 Bactrim Ds PO 1 each DAILY GLEN Administration Nutrition/Malnutrition Assess - Dietary Evaluation Nutrition/Malnutrition Findings: Nutrition Notes Start: 09/06/18 15:57 Freq: Status: Active Protocol: Document 09/17/18 17:00 RM (Rec: 09/17/18 17:03 RM [id number]) Nutrition Notes Initial or Follow up Reassessment Other Pertinent Diagnosis HIV/AIDS, encephalopathy, noncompliance Current Diet Regular + Ensure Clear daily Labs/Tests Reviewed Pertinent Medications Reviewed Height 5 ft 3 in Weight 47.6 kg [place] Body Weight (kg) 56.36 BMI 18.6 Subjective/Other Information Pt stated that his appetite alright and would not answer further questions. Noted various uneaten foods at bedside including cecilia crackers and soup. Noted open Ensure Clear with very little drunk. Percent of energy/protein needs met: 0%/0% Burn Absent Trauma Absent #1 Nutrition Diagnosis Malnutrition Diagnosis Progress(for reassessment Continues documentation) Is patient on ventilator? No Is Patient Ambulatory and/or Out of Bed No REE-([place]-St. Jeor-confined to bed) 1528.812 Calculation Used for Recommendations [place]-St Jeor Additional Notes Pro needs 1.2-1.5g/k-69 g /day Fluid needs 1ml/kcal Nutrition Intervention Change Diet Order: Continue current Add Supplement/Snack (indicate name/kcal Was not previously D/C'd. /protein ) Ensure Clear 1 daily Goal #1 Meet at least 75% of calorie and protein needs Anticipated Discharge Needs: Regular diet Follow-Up By: 09/20/18 Additional Comments Follow for PO and ONS intakes
--- NOTE | 2018-09-20 12:13 | Progress Note ---
Assessment and Plan Culture 09/08/2018 Blood culture: no growth 09/08/2018 Serum Cr Ag: negative 09/09/2018 Blood culture: no growth thus far Fungal blood culture: in process A/P: 42 year old male, know to ID from previous admissions on 06/23/18-06/19/18 and 07/18/18- 08/04/18 for pneumonia, HIV/AIDS, severe oral candidiasis and diarrhea. CD4 count 11. Viral Load [id number]. HIV genotype 06/18/2018 with few resistance mutations. CMV negative. Patient remains noncompliant with his HAART therapy. Now admitted with: 1. Altered Mental Status/Acute encephalopathy: Back to baseline. 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 CT head shows no acute intracranial abnormality. + chronic maxillary and ethmoid sinusitis. MRI images showing brain atrophy, no focal lesions to suggest toxoplasma, PML, ventriculitis, EVISCERATOR lymphoma or other space occupying lesions. Crypto Ag is negative. TTE shows no valvular vegetation, EF 30-35 %. -Fungitell: negative -CMV DNR - <200 2. Oral Candidiasis: h/o resistant Carolann. improved. Continue Nystatin 3. HIV/AIDS: Last admission in June CD4 count 11. Viral load high. Prognosis is poor. Agreed to go to SNF. Will start HIV therapy with Tivicay, Entriva and Tenofovir today. 4. Severe Malnutrition: related to HIV AIDS 5. Transaminitis: elevated liver enzymes from last admission. Abdominal ultra sound unremarkable. CT abdomen showing possible enteritis and somewhat inhomogenous liver. may be due to ischemic hepatitis, HIV/AIDS hepatopathy, infectious etiology with viral hepatitis, vs drug toxicity- GI following. Stable to improving. Evaluating for disseminated MAC, fungal/mycolytic blood cultures in process. HAV, HBV, HCV - nonreactive 6. New Fevers : Improved. 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 CAP vs PCP: Chest CT shows Bilateral pneumonia with findings most prominent in the left lower lobe as described. Bronchiectatic changes in left lower lobe noted also. Scattered blebs in the left lung. Fungitell negative, so PCP quite less likely. bilateral ground glass opacities could be fluid given cardiomyopathy and low EF. 8. Leukopenia: ?Bactrim related. Plan: -continue nystatin swish and swallow -continue Bactrim to 1 DS daily -f/u AFB fungal blood culture -start HIV therapy with Tivicay, Entriva and Tenofovir- ordered -f/u SNF placement per case management CBC ordered for tomorrow [facility] M: [id number] O:[phone] Subjective Date of service: 09/20/18 Principal diagnosis: elevated LFTs, oral candidiasis Interval history: Patient seen and examined. Denies pain or SOB. No fevers. Mostly non- conversant. +Generalized weakness. Objective - Exam Narrative Exam: Constitutional: Awake. Generalized weakness. cachexia Head, Ears, Nose: Normocephalic, atraumatic. External ears, nose normal Eyes: Conjunctivae/corneas clear. No icterus. No ptosis. Neck: Supple, no meningeal signs Oral: dentition poor. , Oral thrush improved Cardiovascular: S1, S2 normal. Respiratory: Good air entry, clear to auscultation bilaterally GI: Soft, non-tender; bowel sounds normal. No peritoneal signs Musculoskeletal: No pedal edema, no cyanosis. Skin: No rash or abscess. Hem/Lymphatic: No palpable cervical or supraclavicular nodes. No lymphangitis Psych: Mood ok. Affect flat, non conversant Neurological: Awake. Alert. no acute distress - Constitutional Vitals: Vital Signs Temp Pulse Resp BP Pulse Ox 97.9 F 95 H 18 112/67 100 09/20/18 09:06 09/20/18 09:06 09/20/18 09:06 09/20/18 09:06 09/20/18 09:06 Temperature -Last 24 Hours Temperature 97.9 F Temperature 99.0 F Temperature 98.5 F - Labs CBC & Chem 7: 09/17/18 10:52 09/15/18 04:31
[2018-09-20] MEDS: PEPCID IV SCH ×2 (12:35→21:54)
[2018-09-20] MEDS: BABY ASPIRIN PO SCH (12:35)
[2018-09-20] MEDS: BACTRIM DS PO SCH (12:35)
[2018-09-20] MEDS: PROAMATINE PO SCH ×3 (12:36→18:11)
[2018-09-20] MEDS: SODIUM CHLORIDE FLUSH SYRINGE 10 ML IV SCH ×2 (12:36→21:55)
[2018-09-20] MEDS: NYSTATIN PO SCH ×3 (12:54→21:54)
[2018-09-20] MEDS: LOVENOX SUB-Q SCH (12:55)
[2018-09-20] MEDS ORDERED: EMTRIVA 200 MG, VIREAD 300 MG PO SCH (14:00)
[2018-09-20] MEDS: VIREAD PO SCH ×2 (18:06→18:21)
[2018-09-20] MEDS: EMTRIVA PO SCH ×2 (18:06→18:20)
[2018-09-20] MEDS: TIVICAY PO SCH ×2 (18:08→18:21)
--- NOTE | 2018-09-20 20:18 | Progress Note ---
Assessment and Plan Patient sleeping at this time On room air. No acute respiratory distress.O2 saturation 95%.Patient running low grade temp at times and has has leukopenia. - Patient Problems (1) Pneumonia Current Visit: Yes Status: Acute Qualifiers: Pneumonia type: due to unspecified organism Laterality: left Lung location: lower lobe of lung Qualified Code(s): J18.1 - Lobar pneumonia, unspecified organism Plan to address problem: Patient is on bactium. (2) AIDS Current Visit: Yes Status: Chronic Plan to address problem: Management as per infectious diseases. (3) Altered mental status Current Visit: Yes Status: Acute Plan to address problem: Management as per primary care and neurology. (4) Oral candidiasis Current Visit: Yes Status: Acute Plan to address problem: Patient getting nystatin. Subjective Date of service: 09/20/18 Principal diagnosis: elevated LFTs, oral candidiasis Interval history: Patient sleeping at this time On room air. No acute respiratory distress.O2 saturation 95%.Patient running low grade temp at times and has has leukopenia. Objective Vital Signs - 12hr 09/20/18 09/20/18 09/20/18 09:06 13:57 18:23 Temperature 97.9 F 97.6 F Pulse Rate 95 H 108 H Respiratory 18 20 Rate Blood Pressure 112/67 70/48 Blood Pressure 98/52 [Right] O2 Sat by Pulse 100 95 Oximetry Constitutional: no acute distress, alert, other (Weak) Eyes: non-icteric ENT: oropharynx moist Neck: supple, no lymphadenopathy Ascultation: Bilateral: diminished breath sounds, other (Prolonged expiratory phase.) Cardiovascular: regular rate and rhythm Gastrointestinal: normoactive bowel sounds, soft, non-tender Integumentary: normal Extremities: no cyanosis, no edema Neurologic: other (Patient is sleeping.) Psychiatric: other (Patient sleeping.) CBC and BMP: 09/17/18 10:52 09/15/18 04:31 ABG, PT/INR, D-dimer: PT/INR, D-dimer PT 15.1 Sec. (12.2-14.9) H 09/11/18 05:22 INR 1.12 (0.87-1.13) 09/11/18 05:22 Abnormal lab findings: Abnormal Labs 09/04/18 09/04/18 09/04/18 21:00 21:00 22:32 WBC RBC 3.23 L Hgb 9.6 L Hct 28.9 L RDW 18.8 H Plt Count Lymph % (Auto) Cannon % (Auto) 12.5 H Lymph # 0.7 L Seg Neutrophils % 72.4 H Seg Neuts % (Manual) Lymphocytes % (Manual) Monocytes % (Manual) Nucleated RBC % Seg Neutrophils # Man Lymphocytes # (Manual) PT Sodium Potassium Chloride 109.9 H Carbon Dioxide 21 L BUN 31 H Creatinine Glucose Lactic Acid 2.40 H* Calcium 8.2 L Iron TIBC Ferritin AST 200 H ALT 136 H Alkaline Phosphatase 138 H Ammonia Total Protein Albumin 3.5 L 09/04/18 09/05/18 09/05/18 22:32 16:19 16:19 WBC RBC Hgb Hct RDW Plt Count Lymph % (Auto) [place] % (Auto) Lymph # Seg Neutrophils % Seg Neuts % (Manual) Lymphocytes % (Manual) Monocytes % (Manual) Nucleated RBC % Seg Neutrophils # Man Lymphocytes # (Manual) PT Sodium Potassium Chloride 112.4 H Carbon Dioxide 19 L BUN Creatinine Glucose Lactic Acid Calcium 8.1 L Iron TIBC 223 L Ferritin AST 241 H ALT 138 H Alkaline Phosphatase Ammonia 64.0 H Total Protein Albumin 3.1 L 09/05/18 09/06/18 09/06/18 16:19 10:40 10:40 WBC 2.4 L RBC 2.67 L Hgb 7.7 L Hct 23.7 L RDW 18.7 H Plt Count 135 L Lymph % (Auto) 10.0 L [place] % (Auto) 8.4 H Lymph # 0.2 L Seg Neutrophils % 81.1 H Seg Neuts % (Manual) Lymphocytes % (Manual) Monocytes % (Manual) Nucleated RBC % Seg Neutrophils # Man Lymphocytes # (Manual) PT Sodium Potassium Chloride 112.1 H Carbon Dioxide 19 L BUN Creatinine 0.7 L Glucose Lactic Acid Calcium 7.8 L Iron TIBC Ferritin 2880.0 H AST 263 H ALT 143 H Alkaline Phosphatase Ammonia Total Protein 6.1 L Albumin 2.8 L 09/07/18 09/07/18 09/08/18 10:38 10:38 06:39 WBC RBC 2.86 L Hgb 8.3 L Hct 25.2 L RDW 18.3 H Plt Count 123 L Lymph % (Auto) 6.1 L [place] % (Auto) Lymph # 0.3 L Seg Neutrophils % 87.3 H Seg Neuts % (Manual) Lymphocytes % (Manual) Monocytes % (Manual) Nucleated RBC % Seg Neutrophils # Man Lymphocytes # (Manual) PT Sodium Potassium Chloride Carbon Dioxide BUN Creatinine Glucose Lactic Acid Calcium Iron 26 L TIBC 212 L Ferritin 2762.0 H AST ALT Alkaline Phosphatase Ammonia Total Protein Albumin 09/08/18 09/08/18 09/09/18 06:39 13:43 07:03 WBC RBC Hgb Hct RDW Plt Count Lymph % (Auto) [place] % (Auto) Lymph # Seg Neutrophils % Seg Neuts % (Manual) Lymphocytes % (Manual) Monocytes % (Manual) Nucleated RBC % Seg Neutrophils # Man Lymphocytes # (Manual) PT Sodium Potassium 3.2 L 3.5 L Chloride 111.9 H 108.6 H Carbon Dioxide 13 L 15 L BUN 6 L 4 L Creatinine Glucose 118 H Lactic Acid Calcium 7.5 L 7.5 L Iron TIBC Ferritin AST 117 H 130 H ALT 87 H 86 H Alkaline Phosphatase Ammonia Total Protein 5.6 L 6.0 L Albumin 2.6 L 2.6 L 09/09/18 09/10/18 09/10/18 07:31 04:26 04:26 WBC 3.5 L 2.1 L RBC 2.82 L 3.10 L Hgb 8.2 L 9.0 L Hct 24.6 L 27.1 L RDW 18.8 H 18.6 H Plt Count 136 L 139 L Lymph % (Auto) [place] % (Auto) Lymph # Seg Neutrophils % Seg Neuts % (Manual) 77.0 H Lymphocytes % (Manual) 11.0 L Monocytes % (Manual) 11.0 H Nucleated RBC % Seg Neutrophils # Man 1.6 L Lymphocytes # (Manual) 0.2 L PT Sodium Potassium Chloride 112.7 H Carbon Dioxide 14 L BUN 5 L Creatinine Glucose 109 H Lactic Acid Calcium 7.7 L Iron TIBC Ferritin AST 110 H ALT 76 H Alkaline Phosphatase Ammonia Total Protein 6.0 L Albumin 2.8 L 09/11/18 09/12/18 09/13/18 05:22 12:28 07:23 WBC 1.1 L* RBC 2.82 L Hgb 8.2 L Hct 25.5 L RDW 19.5 H Plt Count 103 L Lymph % (Auto) [place] % (Auto) Lymph # Seg Neutrophils % Seg Neuts % (Manual) Lymphocytes % (Manual) Monocytes % (Manual) 18.0 H Nucleated RBC % Seg Neutrophils # Man 0.6 L Lymphocytes # (Manual) 0.3 L PT 15.1 H Sodium 133 L Potassium 3.5 L Chloride 108.8 H Carbon Dioxide 14 L BUN 6 L Creatinine Glucose 123 H Lactic Acid Calcium 7.4 L Iron TIBC Ferritin AST 126 H ALT 77 H Alkaline Phosphatase Ammonia Total Protein 5.7 L Albumin 2.6 L 09/15/18 09/15/18 09/17/18 00:51 04:31 10:52 WBC 1.2 L* 1.2 L* RBC 3.38 L 3.03 L Hgb 9.7 L 8.9 L Hct 29.5 L 27.2 L RDW 19.0 H 19.5 H Plt Count 95 L 59 L Lymph % (Auto) [place] % (Auto) Lymph # Seg Neutrophils % Seg Neuts % (Manual) Lymphocytes % (Manual) Monocytes % (Manual) 24.0 H 14.0 H Nucleated RBC % 2.0 H Seg Neutrophils # Man 0.6 L 0.8 L Lymphocytes # (Manual) 0.3 L 0.2 L PT Sodium Potassium Chloride 112.0 H Carbon Dioxide 13 L BUN Creatinine Glucose 65 L Lactic Acid Calcium Iron TIBC Ferritin AST ALT Alkaline Phosphatase Ammonia Total Protein Albumin
[2018-09-21] MEDS ORDERED: NACL 0.9% 250ML 250 ML IV ONE (06:26)
[2018-09-21] MEDS: PROAMATINE PO SCH ×3 (08:59→18:00)
[2018-09-21] MEDS: NACL 0.9% 1000 ML 1,000 ML IV SCH (08:59)
[2018-09-21] MEDS: EMTRIVA PO SCH (09:00)
[2018-09-21] MEDS: BABY ASPIRIN PO SCH ×3 (09:00→09:36)
[2018-09-21] MEDS: BACTRIM DS PO SCH ×3 (09:00→09:36)
[2018-09-21] MEDS: PEPCID IV SCH ×2 (09:00→22:13)
[2018-09-21] MEDS: VIREAD PO SCH (09:01)
[2018-09-21] MEDS: NYSTATIN PO SCH ×4 (09:01→22:12)
[2018-09-21] MEDS: LOVENOX SUB-Q SCH ×2 (09:01→09:12)
[2018-09-21] MEDS: SODIUM CHLORIDE FLUSH SYRINGE 10 ML IV SCH ×2 (09:02→22:15)
[2018-09-21] MEDS: TIVICAY PO SCH ×2 (09:11→09:17)
--- NOTE | 2018-09-21 09:36 | Progress Note ---
Assessment and Plan Culture 09/08/2018 Blood culture: no growth 09/08/2018 Serum Cr Ag: negative 09/09/2018 Blood culture: no growth thus far Fungal blood culture: in process A/P: 42 year old male, know to ID from previous admissions on 06/23/18-06/19/18 and 07/18/18- 08/04/18 for pneumonia, HIV/AIDS, severe oral candidiasis and diarrhea. CD4 count 11. Viral Load [id number]. HIV genotype 06/18/2018 with few resistance mutations. CMV negative. Patient remains noncompliant with his HAART therapy. Now admitted with: 1. Altered Mental Status/Acute encephalopathy: Back to baseline. 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 CT head shows no acute intracranial abnormality. + chronic maxillary and ethmoid sinusitis. MRI images showing brain atrophy, no focal lesions to suggest toxoplasma, PML, ventriculitis, TAKER OFF lymphoma or other space occupying lesions. Crypto Ag is negative. TTE shows no valvular vegetation, EF 30-35 %. -Fungitell: negative -CMV DNR - <200 2. Oral Candidiasis: Improved, h/o resistant Carolann. Continue Nystatin 3. HIV/AIDS: Last admission in June CD4 count 11. Viral load high. Prognosis is poor. Agreed to go to SNF. HIV therapy started 09/20/18 with Truvada + Tivicay. 4. Severe Malnutrition: related to HIV AIDS 5. Transaminitis: elevated liver enzymes from last admission. Abdominal u ltrasound unremarkable. CT abdomen showing possible enteritis and somewhat inhomogenous liver. may be due to ischemic hepatitis, HIV/AIDS hepatopathy, infectious etiology with viral hepatitis, vs drug toxicity- GI following. Stable to improving. Evaluating for disseminated MAC, fungal/mycolytic blood cultures in process. HAV, HBV, HCV - nonreactive 6. New Fevers : Resolved. 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 CAP vs PCP: Chest CT shows Bilateral pneumonia with findings most prominent in the left lower lobe as described. Bronchiectatic changes in left lower lobe noted also. Scattered blebs in the left lung. Fungitell negative, so PCP quite less likely. bilateral ground glass opacities could be fluid given cardiomyopathy and low EF. 8. Leukopenia: likely from untreated HIV and AIDS. Antiretroviral treatment started 09/20/18. Plan: -continue nystatin swish and swallow -continue Bactrim to 1 DS daily -f/u AFB fungal blood culture Continue Truvada + Tivicay -f/u SNF placement per case management CBC ordered for tomorrow [facility] M: [phone] O:[phone] Subjective Date of service: 09/21/18 Principal diagnosis: elevated LFTs, oral candidiasis Interval history: Patient seen and examined. Denies pain or SOB. No fevers. Mostly non- conversant. +Generalized weakness. Objective - Exam Narrative Exam: Constitutional: Awake. Generalized weakness. cachexia Head, Ears, Nose: Normocephalic, atraumatic. External ears, nose normal Eyes: Conjunctivae/corneas clear. No icterus. No ptosis. Neck: Supple, no meningeal signs Oral: dentition poor. , Oral thrush improved Cardiovascular: S1, S2 normal. Respiratory: Good air entry, clear to auscultation bilaterally GI: Soft, non-tender; bowel sounds normal. No peritoneal signs Musculoskeletal: No pedal edema, no cyanosis. Skin: No rash or abscess. Hem/Lymphatic: No palpable cervical or supraclavicular nodes. No lymphangitis Psych: Mood ok. Affect flat, non conversant Neurological: Awake. Alert. no acute distress - Constitutional Vitals: Vital Signs Temp Pulse Resp BP Pulse Ox 98.5 F 84 18 86/50 97 09/20/18 23:08 09/21/18 08:51 09/20/18 23:08 09/21/18 08:51 09/20/18 23:08 Temperature -Last 24 Hours Temperature 98.5 F Temperature 98.7 F Temperature 97.6 F - Labs CBC & Chem 7: 09/17/18 10:52 09/15/18 04:31
--- NOTE | 2018-09-21 10:55 | Progress Note ---
Assessment and Plan Assessment and plan: HIV encephalopathy. CT head shows no acute intracranial abnormality. + chronic maxillary and ethmoid sinusitis. MRI images showing brain atrophy, no focal lesions to suggest toxopl asma, PML, ventriculitis, [employer] lymphoma or other space occupying lesions. Crypto Ag is negative. TTE shows no valvular vegetation, EF 30-35 %. -Fungitell: negative -CMV DNR - <200 Chronic hypotension. 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 h/o resistant Carolann. improved. Continue Nystatin Severe protein calorie malnutrition. related to HIV AIDS. HIV/AIDS. Last admission in June CD4 count 11. Viral load high. Prognosis is poor. Agreed to go to SNF. HIV therapy started 09/20/18 with Truvada + Tivicay. Continue Bactrim DS daily. Transaminitis. Abdominal ultrasound unremarkable. CT abdomen showing possible enteritis and somewhat inhomogenous liver. may be due to ischemic hepatitis, HIV/AIDS hepatopathy, infectious etiology with viral hepatitis, vs drug toxicity- GI following. Stable to improving. Evaluating for disseminated MAC, fungal/mycolytic blood cultures in process. 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 TTE no valvular vegetation, EF 30-35% Bilateral pneumonia. Chest CT shows Bilateral pneumonia with findings most prominent in the left lower lobe as described. Bronchiectatic changes in left lower lobe noted also. Scattered blebs in the left lung. Fungitell negative, so PCP quite less likely. bilateral ground glass opacities could be fluid given cardiomyopathy and low EF. Pancytopenia. Etiology secondary HIV/AIDS Disposition. Awaiting SNF placement. Cardiology and ID recommends Hospice, but patient refuses. History Interval history: Patient is a 42 yo man with a history of HIV/AIDs and anemia who presented to [facility] ED with AMS on 09/04/18. Patient was just discharged from here on 08/04/2018 for sepsis, LLL, lingula pneumonia and severe oral candidiasis. Encephalopathy was attributed to acute metabolic encephalopathy from HIV encephalopathy/FTT/malnutrition, which has resolved. The patient has noted to have hypotension which is felt to be acute on chronic and not sepsis related. His effective circulatory volume is low due to his malnutrition from severe HIV/AIDS. Patient also noted to have other complications related to this including pancytopenia and oral candidiasis which has been treated. No new issues overnight. Hospitalist Physical - Constitutional Vitals: Temp Pulse Resp BP Pulse Ox 98.5 F 84 18 86/50 97 09/20/18 23:08 09/21/18 08:51 09/20/18 23:08 09/21/18 08:51 09/20/18 23:08 General appearance: Present: no acute distress, well-nourished - EENT Eyes: Present: PERRL, EOM intact ENT: hearing intact, clear oral mucosa, dentition normal - Neck Neck: Present: supple, normal ROM - Respiratory Respiratory effort: normal Respiratory: bilateral: CTA - Cardiovascular Rhythm: regular Heart Sounds: Present: S1 & S2. Absent: gallop, rub - Extremities Extremities: no ischemia, No edema, Full ROM - Abdominal General gastrointestinal: soft, non-tender, non-distended, normal bowel sounds - Integumentary Integumentary: Present: clear, warm, dry - Neurologic Neurologic: CNII-XII intact, moves all extremities Results - Labs CBC & Chem 7: 09/17/18 10:52 09/15/18 04:31 Labs: Laboratory Last Values WBC 1.2 K/mm3 (4.5-11.0) L* 09/17/18 10:52 RBC 3.03 M/mm3 (3.65-5.03) L 09/17/18 10:52 Hgb 8.9 gm/dl (11.8-15.2) L 09/17/18 10:52 Hct 27.2 % (35.5-45.6) L 09/17/18 10:52 MCV 90 fl (84-94) 09/17/18 10:52 MCH 29 pg (28-32) 09/17/18 10:52 MCHC 33 % (32-34) 09/17/18 10:52 RDW 19.5 % (13.2-15.2) H 09/17/18 10:52 Plt Count 59 K/mm3 (140-440) L 09/17/18 10:52 Lymph % (Auto) 6.1 % (13.4-35.0) L 09/08/18 06:39 [place] % (Auto) Senior Strategy Analyst 09/17/18 10:52 Eos % (Auto) 0.0 % (0.0-4.3) 09/08/18 06:39 Baso % (Auto) 0.2 % (0.0-1.8) 09/08/18 06:39 Lymph # 0.3 K/mm3 (1.2-5.4) L 09/08/18 06:39 [place] # 0.3 K/mm3 (0.0-0.8) 09/08/18 06:39 Eos # 0.0 K/mm3 (0.0-0.4) 09/08/18 06:39 Baso # 0.0 K/mm3 (0.0-0.1) 09/08/18 06:39 Add Manual Diff Complete 09/17/18 10:52 Total Counted 50 09/17/18 10:52 Seg Neutrophils % 87.3 % (40.0-70.0) H 09/08/18 06:39 Seg Neuts % (Manual) 68.0 % (40.0-70.0) 09/17/18 10:52 Band Neutrophils % 0 % 09/17/18 10:52 Lymphocytes % (Manual) 16.0 % (13.4-35.0) 09/17/18 10:52 Reactive Lymphs % (Man) 2.0 % 09/17/18 10:52 Monocytes % (Manual) 14.0 % (0.0-7.3) H 09/17/18 10:52 Eosinophils % (Manual) 0 % (0.0-4.3) 09/17/18 10:52 Basophils % (Manual) 0 % (0.0-1.8) 09/17/18 10:52 Metamyelocytes % 0 % 09/17/18 10:52 Myelocytes % 0 % 09/17/18 10:52 Promyelocytes % 0 % 09/17/18 10:52 Blast Cells % 0 % 09/17/18 10:52 Nucleated RBC % 2.0 % (0.0-0.9) H 09/17/18 10:52 Seg Neutrophils # 4.5 K/mm3 (1.8-7.7) 09/08/18 06:39 Seg Neutrophils # Man 0.8 K/mm3 (1.8-7.7) L 09/17/18 10:52 Band Neutrophils # 0.0 K/mm3 09/17/18 10:52 Lymphocytes # (Manual) 0.2 K/mm3 (1.2-5.4) L 09/17/18 10:52 Abs React Lymphs (Man) 0.0 K/mm3 09/17/18 10:52 Monocytes # (Manual) 0.2 K/mm3 (0.0-0.8) 09/17/18 10:52 Eosinophils # (Manual) 0.0 K/mm3 (0.0-0.4) 09/17/18 10:52 Basophils # (Manual) 0.0 K/mm3 (0.0-0.1) 09/17/18 10:52 Metamyelocytes # 0.0 K/mm3 09/17/18 10:52 Myelocytes # 0.0 K/mm3 09/17/18 10:52 Promyelocytes # 0.0 K/mm3 09/17/18 10:52 Blast Cells # 0.0 K/mm3 09/17/18 10:52 WBC Morphology Not Reportable 09/17/18 10:52 Hypersegmented Neuts Not Reportable 09/17/18 10:52 Hyposegmented Neuts Not Reportable 09/17/18 10:52 Hypogranular Neuts Not Reportable 09/17/18 10:52 Smudge Cells Not Reportable 09/17/18 10:52 Toxic Granulation Not Reportable 09/17/18 10:52 Toxic Vacuolation Not Reportable 09/17/18 10:52 Dohle Bodies Not Reportable 09/17/18 10:52 Pelger-Huet Anomaly Not Reportable 09/17/18 10:52 Giovanni Rods Not Reportable 09/17/18 10:52 Platelet Estimate Consistent w auto 09/17/18 10:52 Clumped Platelets Not Reportable 09/17/18 10:52 Plt Clumps, EDTA Not Reportable 09/17/18 10:52 Large Platelets Not Reportable 09/17/18 10:52 Giant Platelets Not Reportable 09/17/18 10:52 Platelet Satelliting Not Reportable 09/17/18 10:52 Plt Morphology Comment Not Reportable 09/17/18 10:52 RBC Morphology Not Reportable 09/17/18 10:52 Dimorphic RBCs Not Reportable 09/17/18 10:52 Polychromasia Not Reportable 09/17/18 10:52 Hypochromasia Not Reportable 09/17/18 10:52 Poikilocytosis 3+ 09/17/18 10:52 Anisocytosis 2+ 09/17/18 10:52 Microcytosis Not Reportable 09/17/18 10:52 Macrocytosis Not Reportable 09/17/18 10:52 Spherocytes Not Reportable 09/17/18 10:52 Pappenheimer Bodies Not Reportable 09/17/18 10:52 Sickle Cells Rare 09/17/18 10:52 Target Cells Not Reportable 09/17/18 10:52 Tear Drop Cells 1+ 09/17/18 10:52 Ovalocytes 2+ 09/17/18 10:52 Helmet Cells Not Reportable 09/17/18 10:52 [place] Bodies Not Reportable 09/17/18 10:52 [place] Rings Not Reportable 09/17/18 10:52 [place] Cells Not Reportable 09/17/18 10:52 Bite Cells Not Reportable 09/17/18 10:52 Crenated Cell Not Reportable 09/17/18 10:52 Elliptocytes 1+ 09/17/18 10:52 Acanthocytes (Spur) Not Reportable 09/17/18 10:52 Rouleaux Not Reportable 09/17/18 10:52 Hemoglobin C Crystals Not Reportable 09/17/18 10:52 Schistocytes Not Reportable 09/17/18 10:52 Malaria parasites Not Reportable 09/17/18 10:52 Carlos A Bodies Not Reportable 09/17/18 10:52 Hem Pathologist Commnt No 09/17/18 10:52 PT 15.1 Sec. (12.2-14.9) H 09/11/18 05:22 INR 1.12 (0.87-1.13) 09/11/18 05:22 Sodium 140 mmol/L (137-145) D 09/15/18 04:31 Potassium 3.9 mmol/L (3.6-5.0) 09/15/18 04:31 Chloride 112.0 mmol/L (98-107) H 09/15/18 04:31 Carbon Dioxide 13 mmol/L (22-30) L 09/15/18 04:31 Anion Gap 19 mmol/L 09/15/18 04:31 BUN 15 mg/dL (9-20) 09/15/18 04:31 Creatinine 1.3 mg/dL (0.8-1.5) 09/15/18 04:31 Estimated GFR > 60 ml/min 09/15/18 04:31 BUN/Creatinine Ratio 12 % 09/15/18 04:31 Glucose 65 mg/dL (75-100) L 09/15/18 04:31 POC Glucose 91 (70-105) 09/09/18 07:18 Lactic Acid 1.30 mmol/L (0.7-2.0) 09/05/18 03:50 Calcium 8.6 mg/dL (8.4-10.2) D 09/15/18 04:31 Iron 26 ug/dL (49-181) L 09/07/18 10:38 TIBC 212 mcg/dL (250-450) L 09/07/18 10:38 Ferritin 2762.0 ng/mL (13.0-400.0) H 09/07/18 10:38 Total Bilirubin < 0.20 mg/dL (0.1-1.2) 09/12/18 12:28 Direct Bilirubin < 0.2 mg/dL (0-0.2) 09/08/18 13:43 Indirect Bilirubin 0.0 mg/dL 09/06/18 10:40 AST 126 units/L (5-40) H 09/12/18 12:28 ALT 77 units/L (7-56) H 09/12/18 12:28 Alkaline Phosphatase 124 units/L (35-129) 09/12/18 12:28 Ammonia 51.0 umol/L (25-60) 09/12/18 12:28 Total Creatine Kinase 101 units/L (55-170) 09/04/18 21:00 Troponin T < 0.010 ng/mL (0.00-0.029) 09/10/18 12:14 Total Protein 5.7 g/dL (6.3-8.2) L 09/12/18 12:28 Albumin 2.6 g/dL (3.9-5) L 09/12/18 12:28 Albumin/Globulin Ratio 0.8 % 09/12/18 12:28 TSH 0.960 mlU/mL (0.270-4.200) 09/04/18 21:00 Urine Color Yellow (Yellow) 09/04/18 23:30 Urine Turbidity Clear (Clear) 09/04/18 23:30 Urine pH 6.0 (5.0-7.0) 09/04/18 23:30 Ur Specific [place] 1.012 (1.003-1.030) 09/04/18 23:30 Urine Protein <15 mg/dl mg/dL (Negative) 09/04/18 23:30 Urine Glucose (UA) Neg mg/dL (Negative) 09/04/18 23:30 Urine Ketones Neg mg/dL (Negative) 09/04/18 23:30 Urine Blood Neg (Negative) 09/04/18 23:30 Urine Nitrite Neg (Negative) 09/04/18 23:30 Urine Bilirubin Neg (Negative) 09/04/18 23:30 Urine Urobilinogen < 2.0 mg/dL (<2.0) 09/04/18 23:30 Ur Leukocyte Esterase Neg (Negative) 09/04/18 23:30 Urine WBC (Auto) 1.0 /HPF (0.0-6.0) 09/04/18 23:30 Urine RBC (Auto) 2.0 /HPF (0.0-6.0) 09/04/18 23:30 Urine Bacteria (Auto) 1+ /HPF (Negative) 09/04/18 23:30 Urine Mucus Few /HPF 09/04/18 23:30 Urine Opiates Screen Presumptive negative 09/04/18 23:30 Urine Methadone Screen Presumptive negative 09/04/18 23:30 Ur Barbiturates Screen Presumptive negative 09/04/18 23:30 Ur Phencyclidine Scrn Presumptive negative 09/04/18 23:30 Ur Amphetamines Screen Presumptive negative 09/04/18 23:30 U Benzodiazepines Scrn Presumptive negative 09/04/18 23:30 Urine Cocaine Screen Presumptive negative 09/04/18 23:30 U Marijuana (THC) Screen Presumptive negative 09/04/18 23:30 Drugs of Abuse Note Disclamer 09/04/18 23:30 Plasma/Serum Alcohol < 0.01 % (0-0.07) 09/04/18 21:00 JAMEEL Screen Negative (Negative) 09/05/18 16:19 Sm ([place]) Antibody <1.0 AI (<1.0) 09/05/18 16:19 Mitochondria M2 Ab <=20.0 U (<=20.0) 09/05/18 16:19 CMV DNA PCR log certified flex endoscope reprocessor/mL See scanned results 09/08/18 16:50 Hepatitis A IgM Ab Non-reactive (NonReactive) 09/08/18 06:39 Hep Bs Antigen Non-reactive (Negative) 09/08/18 06:39 Hep B Core IgM Ab Non-reactive (NonReactive) 09/08/18 06:39 Hepatitis C Antibody Non-reactive (NonReactive) 09/08/18 06:39 Miscellaneous Test Flexitest 1 09/09/18 07:03 Active Medications - Current Medications Current Medications: Generic Name Dose Route Start Last Admin Trade Name Freq PRN Reason Stop Dose Admin Acetaminophen 650 mg 09/05/18 02:48 09/09/18 06:44 Tylenol PO 650 mg Q4H PRN Administration Pain MILD(1-3)/Fever >100.5/VILLAREAL Acetaminophen/Hydrocodone Bitart 1 each 09/05/18 02:48 [place] 5/325 PO Q4H PRN Pain, Moderate (4-6) Aspirin 81 mg 09/09/18 17:00 09/21/18 09:36 Baby Aspirin PO 81 mg QDAY GLEN Administration Emtricitabine 200 mg 09/20/18 14:00 09/21/18 09:00 Emtriva PO 200 mg QDAY GLEN Administration Enoxaparin Sodium 40 mg 09/05/18 10:00 09/21/18 09:12 Lovenox SUB-Q Not Given QDAY GLEN Famotidine 10 mg 09/05/18 10:00 09/21/18 09:00 Pepcid IV 10 mg BID GLEN Administration Sodium Chloride 1,000 mls @ 100 mls/hr 09/16/18 08:00 09/21/18 08:59 Nacl 0.9% 1000 Ml IV 100 mls/hr DIRECT GLEN Administration Midodrine 10 mg 09/05/18 19:00 09/21/18 08:59 Proamatine PO 10 mg TID@0800,1200,1600 GLEN Administration Nystatin 500,000 unit 09/10/18 20:00 09/21/18 09:09 Nystatin PO Not Given TID GLEN Ondansetron HCl 4 mg 09/05/18 02:48 09/10/18 13:06 Zofran IV 4 mg Q8H PRN Administration Nausea And Vomiting Sodium Chloride 10 ml 09/05/18 10:00 09/21/18 09:02 Sodium Chloride Flush Syringe 10 Ml IV 10 ml BID GLEN Administration Sodium Chloride 10 ml 09/05/18 02:48 Sodium Chloride Flush Syringe 10 Ml IV PRN PRN LINE FLUSH Tenofovir Disoproxil Fumarate 300 mg 09/20/18 14:00 09/21/18 09:01 Viread PO 300 mg QDAY GLEN Administration Trimethoprim/Sulfamethoxazole 1 each 09/14/18 10:00 09/21/18 09:36 Bactrim Ds PO 1 each DAILY GLEN Administration Nutrition/Malnutrition Assess - Dietary Evaluation Nutrition/Malnutrition Findings: Nutrition Notes Start: 09/06/18 15:57 Freq: Status: Active Protocol: Document 09/20/18 15:51 RM (Rec: 09/20/18 15:58 RM [email or web address]) Nutrition Notes Initial or Follow up Reassessment Other Pertinent Diagnosis HIV/AIDS, noncompliance, oral candidiasis Current Diet Regular + Ensure Clear daily Labs/Tests Reviewed Pertinent Medications Reviewed Height 5 ft 3 in Weight 47.6 kg Amelia Body Weight (kg) 56.36 BMI 18.6 Subjective/Other Information Pt answers yes or no questions with nods or head shaking. Pt declined offer of Ensure Enlive again. Denied mouth pain when eating. Pt nurse stated that pt is not eating but drinks the Ensure Clear. Pt has not been meeint nutritional needs X 11 days. May need PEG placed if intake does not improve. Percent of energy/protein needs met: 16%/15% Burn Absent Trauma Absent #1 Nutrition Diagnosis Malnutrition Diagnosis Progress(for reassessment Continues documentation) Is patient on ventilator? No Is Patient Ambulatory and/or Out of Bed No REE-([facility]-confined to bed) 1528.812 Calculation Used for Recommendations [facility] Additional Notes Pro needs 1.2-1.5g/k-69 g /day Fluid needs 1ml/kcal Nutrition Intervention Change Diet Order: Continue current or TF consult Add Supplement/Snack (indicate name/kcal Ensure Clear 1 daily /protein ) Provides kCal: 240 Provides Protein (gm) 8 Goal #1 Meet at least 75% of calorie and protein needs Anticipated Discharge Needs: Regular diet Follow-Up By: 09/23/18 Additional Comments Follow for PO and ONS intakes
--- NOTE | 2018-09-21 13:54 | Progress Note ---
Assessment and Plan Patient awake and weak, resting at this time on room air. No acute respiratory distress. O2 saturation 98%. Patient aferbile and has leukopenia. - Patient Problems (1) Pneumonia Current Visit: Yes Status: Acute Qualifiers: Pneumonia type: due to unspecified organism Laterality: left Lung location: lower lobe of lung Qualified Code(s): J18.1 - Lobar pneumonia, unspecified organism Plan to address problem: Patient is on bactium. (2) AIDS Current Visit: Yes Status: Chronic Plan to address problem: Management as per infectious diseases. (3) Altered mental status Current Visit: Yes Status: Acute Plan to address problem: Management as per primary care and neurology. (4) Oral candidiasis Current Visit: Yes Status: Acute Plan to address problem: Patient getting nystatin. Subjective Date of service: 09/21/18 Principal diagnosis: elevated LFTs, oral candidiasis Interval history: Patient awake and weak, resting at this time on room air. No acute respiratory distress. O2 saturation 98%. Patient aferbile and has leukopenia. Objective Vital Signs - 12hr 09/21/18 09/21/18 09/21/18 05:37 05:59 08:51 Temperature 98.3 F Pulse Rate 84 Respiratory 16 Rate Blood Pressure 70/42 Blood Pressure 80/50 86/50 [Right] O2 Sat by Pulse Oximetry 09/21/18 12:02 Temperature 98.1 F Pulse Rate 63 Respiratory 20 Rate Blood Pressure 69/38 Blood Pressure [Right] O2 Sat by Pulse 98 Oximetry Constitutional: no acute distress, alert, other (Weak) Eyes: non-icteric ENT: oropharynx moist Neck: supple, no lymphadenopathy Ascultation: Bilateral: diminished breath sounds, other (Prolonged expiratory phase.) Cardiovascular: regular rate and rhythm Gastrointestinal: normoactive bowel sounds, soft, non-tender Integumentary: normal Extremities: no cyanosis, no edema Neurologic: other (Patient is sleeping.) Psychiatric: other (Patient sleeping.) CBC and BMP: 09/21/18 15:26 09/15/18 04:31 ABG, PT/INR, D-dimer: PT/INR, D-dimer PT 15.1 Sec. (12.2-14.9) H 09/11/18 05:22 INR 1.12 (0.87-1.13) 04/06/19 05:22 Abnormal lab findings: Abnormal Labs 09/04/18 09/04/18 09/04/18 21:00 21:00 22:32 WBC RBC 3.23 L Hgb 9.6 L Hct 28.9 L RDW 18.8 H Plt Count Lymph % (Auto) Franklin % (Auto) 12.5 H Lymph # 0.7 L Seg Neutrophils % 72.4 H Seg Neuts % (Manual) Lymphocytes % (Manual) Monocytes % (Manual) Nucleated RBC % Seg Neutrophils # Man Lymphocytes # (Manual) PT Sodium Potassium Chloride 109.9 H Carbon Dioxide 21 L BUN 31 H Creatinine Glucose Lactic Acid 2.40 H* Calcium 8.2 L Iron TIBC Ferritin AST 200 H ALT 136 H Alkaline Phosphatase 138 H Ammonia Total Protein Albumin 3.5 L 09/04/18 09/05/18 09/05/18 22:32 16:19 16:19 WBC RBC Hgb Hct RDW Plt Count Lymph % (Auto) Franklin % (Auto) Lymph # Seg Neutrophils % Seg Neuts % (Manual) Lymphocytes % (Manual) Monocytes % (Manual) Nucleated RBC % Seg Neutrophils # Man Lymphocytes # (Manual) PT Sodium Potassium Chloride 112.4 H Carbon Dioxide 19 L BUN Creatinine Glucose Lactic Acid Calcium 8.1 L Iron TIBC 223 L Ferritin AST 241 H ALT 138 H Alkaline Phosphatase Ammonia 64.0 H Total Protein Albumin 3.1 L 09/05/18 09/06/18 09/06/18 16:19 10:40 10:40 WBC 2.4 L RBC 2.67 L Hgb 7.7 L Hct 23.7 L RDW 18.7 H Plt Count 135 L Lymph % (Auto) 10.0 L Franklin % (Auto) 8.4 H Lymph # 0.2 L Seg Neutrophils % 81.1 H Seg Neuts % (Manual) Lymphocytes % (Manual) Monocytes % (Manual) Nucleated RBC % Seg Neutrophils # Man Lymphocytes # (Manual) PT Sodium Potassium Chloride 112.1 H Carbon Dioxide 19 L BUN Creatinine 0.7 L Glucose Lactic Acid Calcium 7.8 L Iron TIBC Ferritin 2880.0 H AST 263 H ALT 143 H Alkaline Phosphatase Ammonia Total Protein 6.1 L Albumin 2.8 L 09/07/18 09/07/18 09/08/18 10:38 10:38 06:39 WBC RBC 2.86 L Hgb 8.3 L Hct 25.2 L RDW 18.3 H Plt Count 123 L Lymph % (Auto) 6.1 L Franklin % (Auto) Lymph # 0.3 L Seg Neutrophils % 87.3 H Seg Neuts % (Manual) Lymphocytes % (Manual) Monocytes % (Manual) Nucleated RBC % Seg Neutrophils # Man Lymphocytes # (Manual) PT Sodium Potassium Chloride Carbon Dioxide BUN Creatinine Glucose Lactic Acid Calcium Iron 26 L TIBC 212 L Ferritin 2762.0 H AST ALT Alkaline Phosphatase Ammonia Total Protein Albumin 09/08/18 09/08/18 09/09/18 06:39 13:43 07:03 WBC RBC Hgb Hct RDW Plt Count Lymph % (Auto) Franklin % (Auto) Lymph # Seg Neutrophils % Seg Neuts % (Manual) Lymphocytes % (Manual) Monocytes % (Manual) Nucleated RBC % Seg Neutrophils # Man Lymphocytes # (Manual) PT Sodium Potassium 3.2 L 3.5 L Chloride 111.9 H 108.6 H Carbon Dioxide 13 L 15 L BUN 6 L 4 L Creatinine Glucose 118 H Lactic Acid Calcium 7.5 L 7.5 L Iron TIBC Ferritin AST 117 H 130 H ALT 87 H 86 H Alkaline Phosphatase Ammonia Total Protein 5.6 L 6.0 L Albumin 2.6 L 2.6 L 09/09/18 09/10/18 09/10/18 07:31 04:26 04:26 WBC 3.5 L 2.1 L RBC 2.82 L 3.10 L Hgb 8.2 L 9.0 L Hct 24.6 L 27.1 L RDW 18.8 H 18.6 H Plt Count 136 L 139 L Lymph % (Auto) Franklin % (Auto) Lymph # Seg Neutrophils % Seg Neuts % (Manual) 77.0 H Lymphocytes % (Manual) 11.0 L Monocytes % (Manual) 11.0 H Nucleated RBC % Seg Neutrophils # Man 1.6 L Lymphocytes # (Manual) 0.2 L PT Sodium Potassium Chloride 112.7 H Carbon Dioxide 14 L BUN 5 L Creatinine Glucose 109 H Lactic Acid Calcium 7.7 L Iron TIBC Ferritin AST 110 H ALT 76 H Alkaline Phosphatase Ammonia Total Protein 6.0 L Albumin 2.8 L 09/11/18 09/12/18 09/13/18 05:22 12:28 07:23 WBC 1.1 L* RBC 2.82 L Hgb 8.2 L Hct 25.5 L RDW 19.5 H Plt Count 103 L Lymph % (Auto) Franklin % (Auto) Lymph # Seg Neutrophils % Seg Neuts % (Manual) Lymphocytes % (Manual) Monocytes % (Manual) 18.0 H Nucleated RBC % Seg Neutrophils # Man 0.6 L Lymphocytes # (Manual) 0.3 L PT 15.1 H Sodium 133 L Potassium 3.5 L Chloride 108.8 H Carbon Dioxide 14 L BUN 6 L Creatinine Glucose 123 H Lactic Acid Calcium 7.4 L Iron TIBC Ferritin AST 126 H ALT 77 H Alkaline Phosphatase Ammonia Total Protein 5.7 L Albumin 2.6 L 09/15/18 09/15/18 09/17/18 00:51 04:31 10:52 WBC 1.2 L* 1.2 L* RBC 3.38 L 3.03 L Hgb 9.7 L 8.9 L Hct 29.5 L 27.2 L RDW 19.0 H 19.5 H Plt Count 95 L 59 L Lymph % (Auto) Franklin % (Auto) Lymph # Seg Neutrophils % Seg Neuts % (Manual) Lymphocytes % (Manual) Monocytes % (Manual) 24.0 H 14.0 H Nucleated RBC % 2.0 H Seg Neutrophils # Man 0.6 L 0.8 L Lymphocytes # (Manual) 0.3 L 0.2 L PT Sodium Potassium Chloride 112.0 H Carbon Dioxide 13 L BUN Creatinine Glucose 65 L Lactic Acid Calcium Iron TIBC Ferritin AST ALT Alkaline Phosphatase Ammonia Total Protein Albumin
[2018-09-21 15:37] LABS: Hematocrit 26.3 % (35.5-45.6); Hemoglobin 8.8 gm/dl (11.8-15.2); Mean Corpuscular HGB Conc 33 % (32-34); Mean Corpuscular Volume 89 fl (84-94); Red Blood Count 2.94 M/mm3 (3.65-5.03)
[2018-09-21 17:17] LABS: Basophils % (Manual) 0 % (0.0-1.8); Eosinophils % (Manual) 0 % (0.0-4.3); Total Cells Counted 25
[2018-09-21 17:19] LABS: Anisocytosis 2+; Platelet Estimate Appears Decreased; Poikilocytosis 3+
[2018-09-21 17:20] LABS: Tear Drop Cells 1+
[2018-09-21 17:22] LABS: Platelet Count 26 K/mm3 (140-440)
[2018-09-22] MEDS: NYSTATIN PO SCH ×4 (09:06→23:03)
[2018-09-22] MEDS: PROAMATINE PO SCH ×3 (09:07→17:54)
--- NOTE | 2018-09-22 09:57 | Progress Note ---
Assessment and Plan Culture 09/08/2018 Blood culture: no growth 09/08/2018 Serum Cr Ag: negative 09/09/2018 Blood culture: no growth thus far Fungal blood culture: no growth to date A/P: 42 year old male, know to ID from previous admissions on 06/23/18-06/19/18 and 07/18/18- 08/04/18 for pneumonia, HIV/AIDS, severe oral candidiasis and diarrhea. CD4 count 11. Viral Load [id number]. HIV genotype 06/18/2018 with few resistance mutations. CMV negative. Patient remains noncompliant with his HAART therapy. Now admitted with: 1. Altered Mental Status/Acute encephalopathy: Back to baseline. 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 CT head shows no acute intracranial abnormality. + chronic maxillary and ethmoid sinusitis. MRI images showing brain atrophy, no focal lesions to suggest toxoplasma, PML, ventriculitis, [employer] lymphoma or other space occupying lesions. Crypto Ag is negative. TTE shows no valvular vegetation, EF 30-35 %. -Fungitell: negative -CMV DNR - <200 2. Oral Candidiasis: Improved, h/o resistant Carolann. Continue Nystatin 3. HIV/AIDS: Last admission in June CD4 count 11. Viral load high. Prognosis is poor. Agreed to go to SNF. HIV therapy started 09/20/18 with Truvada + Tivicay. Currently compliant with medication regimen at hospital. 4. Severe Malnutrition: related to HIV AIDS 5. Transaminitis: elevated liver enzymes from last admission. Abdominal ultrasound unremarkable. CT abdomen showing possible enteritis and somewhat inhomogenous liver. may be due to ischemic hepatitis, HIV/AIDS hepatopathy, infectious etiology with viral hepatitis, vs drug toxicity- GI following. Stable to improving. Evaluating for disseminated MAC, fungal/mycolytic blood cultures in process. HAV, HBV, HCV - nonreactive 6. New Fevers : Resolved. 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 CAP vs PCP: Chest CT shows Bilateral pneumonia with findings most prominent in the left lower lobe as described. Bronchiectatic changes in left lower lobe noted also. Scattered blebs in the left lung. Fungitell negative, so PCP quite less likely. bilateral ground glass opacities could be fluid given cardiomyopathy and low EF. 8. Leukopenia: likely from untreated HIV and AIDS. Antiretroviral treatment started 09/20/18. Plan: -continue nystatin swish and swallow -continue Bactrim to 1 DS daily -f/u AFB fungal blood culture Continue Truvada + Tivicay -f/u SNF placement per case management [facility] M: [phone] O:[phone] Subjective Date of service: 09/22/18 Principal diagnosis: elevated LFTs, oral candidiasis Interval history: Patient seen and examined. Denies pain or SOB. No fevers. Stated that he was taking his medications. Objective - Exam Narrative Exam: Constitutional: Awake. Generalized weakness. cachexia Head, Ears, Nose: Normocephalic, atraumatic. External ears, nose normal Eyes: Conjunctivae/corneas clear. No icterus. No ptosis. Neck: Supple, no meningeal signs Oral: dentition poor. , Oral thrush improved Cardiovascular: S1, S2 normal. Respiratory: Good air entry, clear to auscultation bilaterally GI: Soft, non-tender; bowel sounds normal. No peritoneal signs Musculoskeletal: No pedal edema, no cyanosis. Skin: No rash or abscess. Hem/Lymphatic: No palpable cervical or supraclavicular nodes. No lymphangitis Psych: Mood ok. Affect flat, Neurological: Awake. Alert. no acute distress - Constitutional Vitals: Vital Signs Temp Pulse Resp BP Pulse Ox 98.5 F 82 32 H 80/46 100 09/22/18 05:31 09/22/18 05:31 09/22/18 05:31 09/22/18 05:31 09/22/18 05:31 Temperature -Last 24 Hours Temperature 98.5 F Temperature 99.0 F Temperature 97.4 F Temperature 98.1 F - Labs CBC & Chem 7: 09/21/18 15:26 09/15/18 04:31 Labs: Abnormal lab results 09/21/18 Range/Units 15:26 WBC 1.6 L* (4.5-11.0) K/mm3 RBC 2.94 L (3.65-5.03) M/mm3 Hgb 8.8 L (11.8-15.2) gm/dl Hct 26.3 L (35.5-45.6) % RDW 20.0 H (13.2-15.2) % Plt Count 26 L (140-440) K/mm3 Monocytes % (Manual) 12.0 H (0.0-7.3) % Seg Neutrophils # Man 1.0 L (1.8-7.7) K/mm3 Lymphocytes # (Manual) 0.4 L (1.2-5.4) K/mm3
[2018-09-22] MEDS: LOVENOX SUB-Q SCH ×2 (10:32→10:45)
[2018-09-22] MEDS: BABY ASPIRIN PO SCH (10:32)
[2018-09-22] MEDS: BACTRIM DS PO SCH (10:32)
[2018-09-22] MEDS: PEPCID IV SCH (10:32)
[2018-09-22] MEDS: EMTRIVA PO SCH (10:33)
[2018-09-22] MEDS: VIREAD PO SCH (10:34)
[2018-09-22] MEDS: SODIUM CHLORIDE FLUSH SYRINGE 10 ML IV SCH ×2 (10:34→23:00)
--- NOTE | 2018-09-22 11:55 | Progress Note ---
Assessment and Plan Assessment and plan: HIV encephalopathy. CT head shows no acute intracranial abnormality. + chronic maxillary and ethmoid sinusitis. 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 Crypto Ag is negative. TTE shows no valvular vegetation, EF 30-35 %. -Fungitell: negative -CMV DNR - <200 Chronic hypotension. 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 h/o resistant Carolann. improved. Continue Nystatin Severe protein calorie malnutrition. related to HIV AIDS. HIV/AIDS. Last admission in June CD4 count 11. Viral load high. Prognosis is poor. Agreed to go to SNF. HIV therapy started 09/20/18 with Truvada + Tivicay. Continue Bactrim DS daily. Transaminitis. Abdominal ultrasound unremarkable. CT abdomen showing possible enteritis and somewhat inhomogenous liver. may be due to ischemic hepatitis, HIV/AIDS hepatopathy, infectious etiology with viral hepatitis, vs drug toxicity- GI following. Stable to improving. Evaluating for disseminated MAC, fungal/mycolytic blood cultures in process. 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 TTE no valvular vegetation, EF 30-35% Bilateral pneumonia. Chest CT shows Bilateral pneumonia with findings most prominent in the left lower lobe as described. Bronchiectatic changes in left lower lobe noted also. Scattered blebs in the left lung. Fungitell negative, so PCP quite less likely. bilateral ground glass opacities could be fluid given cardiomyopathy and low EF. Pancytopenia. Etiology secondary HIV/AIDS Disposition. Awaiting SNF placement. Cardiology and ID recommends Hospice, but patient refuses. History Interval history: Patient is a 42 yo man with a history of HIV/AIDs and anemia who presented to [facility] ED with AMS on 09/04/18. Patient was just discharged from here on 08/04/2018 for sepsis, LLL, lingula pneumonia and severe oral candidiasis. Encephalopathy was attributed to acute metabolic encephalopathy from HIV encephalopathy/FTT/malnutrition, which has resolved. The patient has noted to have hypotension which is felt to be acute on chronic and not sepsis related. His effective circulatory volume is low due to his malnutrition from severe HIV/AIDS. Patient also noted to have other complications related to this including pancytopenia and oral candidiasis which has been treated. No new issues overnight. Hospitalist Physical - Constitutional Vitals: Temp Pulse Resp BP Pulse Ox 98.5 F 82 32 H 80/46 100 09/22/18 05:31 09/22/18 05:31 09/22/18 05:31 09/22/18 05:31 09/22/18 05:31 General appearance: Present: no acute distress, well-nourished - EENT Eyes: Present: PERRL, EOM intact ENT: hearing intact, clear oral mucosa, dentition normal - Neck Neck: Present: supple, normal ROM - Respiratory Respiratory effort: normal Respiratory: bilateral: CTA - Cardiovascular Rhythm: regular Heart Sounds: Present: S1 & S2. Absent: gallop, rub - Extremities Extremities: no ischemia, No edema, Full ROM - Abdominal General gastrointestinal: soft, non-tender, non-distended, normal bowel sounds - Integumentary Integumentary: Present: clear, warm, dry - Neurologic Neurologic: CNII-XII intact, moves all extremities Results - Labs CBC & Chem 7: 09/21/18 15:26 09/15/18 04:31 Labs: Laboratory Last Values WBC 1.6 K/mm3 (4.5-11.0) L* 09/21/18 15:26 RBC 2.94 M/mm3 (3.65-5.03) L 09/21/18 15:26 Hgb 8.8 gm/dl (11.8-15.2) L 09/21/18 15:26 Hct 26.3 % (35.5-45.6) L 09/21/18 15:26 MCV 89 fl (84-94) 09/21/18 15:26 MCH 30 pg (28-32) 09/21/18 15:26 MCHC 33 % (32-34) 09/21/18 15:26 RDW 20.0 % (13.2-15.2) H 09/21/18 15:26 Plt Count 26 K/mm3 (140-440) L 09/21/18 15:26 Lymph % (Auto) 6.1 % (13.4-35.0) L 09/08/18 06:39 Day % (Auto) Woven Label Designer 09/17/18 10:52 Eos % (Auto) 0.0 % (0.0-4.3) 09/08/18 06:39 Baso % (Auto) 0.2 % (0.0-1.8) 09/08/18 06:39 Lymph # 0.3 K/mm3 (1.2-5.4) L 09/08/18 06:39 Day # 0.3 K/mm3 (0.0-0.8) 09/08/18 06:39 Eos # 0.0 K/mm3 (0.0-0.4) 09/08/18 06:39 Baso # 0.0 K/mm3 (0.0-0.1) 09/08/18 06:39 Add Manual Diff Complete 09/21/18 15:26 Total Counted 25 09/21/18 15:26 Seg Neutrophils % 87.3 % (40.0-70.0) H 09/08/18 06:39 Seg Neuts % (Manual) 64.0 % (40.0-70.0) 09/21/18 15:26 Band Neutrophils % 0 % 09/21/18 15:26 Lymphocytes % (Manual) 24.0 % (13.4-35.0) 09/21/18 15:26 Reactive Lymphs % (Man) 0 % 09/21/18 15:26 Monocytes % (Manual) 12.0 % (0.0-7.3) H 09/21/18 15:26 Eosinophils % (Manual) 0 % (0.0-4.3) 09/21/18 15:26 Basophils % (Manual) 0 % (0.0-1.8) 09/21/18 15:26 Metamyelocytes % 0 % 09/21/18 15:26 Myelocytes % 0 % 09/21/18 15:26 Promyelocytes % 0 % 09/21/18 15:26 Blast Cells % 0 % 09/21/18 15:26 Nucleated RBC % Not Reportable 09/21/18 15:26 Seg Neutrophils # 4.5 K/mm3 (1.8-7.7) 09/08/18 06:39 Seg Neutrophils # Man 1.0 K/mm3 (1.8-7.7) L 09/21/18 15:26 Band Neutrophils # 0.0 K/mm3 09/21/18 15:26 Lymphocytes # (Manual) 0.4 K/mm3 (1.2-5.4) L 09/21/18 15:26 Abs React Lymphs (Man) 0.0 K/mm3 09/21/18 15:26 Monocytes # (Manual) 0.2 K/mm3 (0.0-0.8) 09/21/18 15:26 Eosinophils # (Manual) 0.0 K/mm3 (0.0-0.4) 09/21/18 15:26 Basophils # (Manual) 0.0 K/mm3 (0.0-0.1) 09/21/18 15:26 Metamyelocytes # 0.0 K/mm3 09/21/18 15:26 Myelocytes # 0.0 K/mm3 09/21/18 15:26 Promyelocytes # 0.0 K/mm3 09/21/18 15:26 Blast Cells # 0.0 K/mm3 09/21/18 15:26 WBC Morphology Not Reportable 09/21/18 15:26 Hypersegmented Neuts Not Reportable 09/21/18 15:26 Hyposegmented Neuts Not Reportable 09/21/18 15:26 Hypogranular Neuts Not Reportable 09/21/18 15:26 Smudge Cells Not Reportable 09/21/18 15:26 Toxic Granulation Not Reportable 09/21/18 15:26 Toxic Vacuolation Not Reportable 09/21/18 15:26 Dohle Bodies Not Reportable 09/21/18 15:26 Pelger-Huet Anomaly Not Reportable 09/21/18 15:26 Giovanni Rods Not Reportable 09/21/18 15:26 Platelet Estimate Appears decreased 09/21/18 15:26 Clumped Platelets Not Reportable 09/21/18 15:26 Plt Clumps, EDTA Not Reportable 09/21/18 15:26 Large Platelets Not Reportable 09/21/18 15:26 Giant Platelets Not Reportable 09/21/18 15:26 Platelet Satelliting Not Reportable 09/21/18 15:26 Plt Morphology Comment Not Reportable 09/21/18 15:26 RBC Morphology Not Reportable 09/21/18 15:26 Dimorphic RBCs Not Reportable 09/21/18 15:26 Polychromasia Not Reportable 09/21/18 15:26 Hypochromasia Not Reportable 09/21/18 15:26 Poikilocytosis 3+ 09/21/18 15:26 Anisocytosis 2+ 09/21/18 15:26 Microcytosis Not Reportable 09/21/18 15:26 Macrocytosis Not Reportable 09/21/18 15:26 Spherocytes Not Reportable 09/21/18 15:26 Pappenheimer Bodies Not Reportable 09/21/18 15:26 Sickle Cells Not Reportable 09/21/18 15:26 Target Cells Not Reportable 09/21/18 15:26 Tear Drop Cells 1+ 09/21/18 15:26 Ovalocytes Not Reportable 09/21/18 15:26 Helmet Cells Not Reportable 09/21/18 15:26 [place] Bodies Not Reportable 09/21/18 15:26 [place] Rings Not Reportable 09/21/18 15:26 [place] Cells Not Reportable 09/21/18 15:26 Bite Cells Not Reportable 09/21/18 15:26 Crenated Cell Not Reportable 09/21/18 15:26 Elliptocytes 2+ 09/21/18 15:26 Acanthocytes (Spur) Not Reportable 09/21/18 15:26 Rouleaux Not Reportable 09/21/18 15:26 Hemoglobin C Crystals Not Reportable 09/21/18 15:26 Schistocytes Not Reportable 09/21/18 15:26 Malaria parasites Not Reportable 09/21/18 15:26 Carlos A Bodies Not Reportable 09/21/18 15:26 Hem Pathologist Commnt No 09/21/18 15:26 PT 15.1 Sec. (12.2-14.9) H 09/11/18 05:22 INR 1.12 (0.87-1.13) 09/11/18 05:22 Sodium 140 mmol/L (137-145) D 09/15/18 04:31 Potassium 3.9 mmol/L (3.6-5.0) 09/15/18 04:31 Chloride 112.0 mmol/L (98-107) H 09/15/18 04:31 Carbon Dioxide 13 mmol/L (22-30) L 09/15/18 04:31 Anion Gap 19 mmol/L 09/15/18 04:31 BUN 15 mg/dL (9-20) 09/15/18 04:31 Creatinine 1.3 mg/dL (0.8-1.5) 09/15/18 04:31 Estimated GFR > 60 ml/min 09/15/18 04:31 BUN/Creatinine Ratio 12 % 09/15/18 04:31 Glucose 65 mg/dL (75-100) L 09/15/18 04:31 POC Glucose 91 (70-105) 09/09/18 07:18 Lactic Acid 1.30 mmol/L (0.7-2.0) 09/05/18 03:50 Calcium 8.6 mg/dL (8.4-10.2) D 09/15/18 04:31 Iron 26 ug/dL (49-181) L 09/07/18 10:38 TIBC 212 mcg/dL (250-450) L 09/07/18 10:38 Ferritin 2762.0 ng/mL (13.0-400.0) H 09/07/18 10:38 Total Bilirubin < 0.20 mg/dL (0.1-1.2) 09/12/18 12:28 Direct Bilirubin < 0.2 mg/dL (0-0.2) 09/08/18 13:43 Indirect Bilirubin 0.0 mg/dL 09/06/18 10:40 AST 126 units/L (5-40) H 09/12/18 12:28 ALT 77 units/L (7-56) H 09/12/18 12:28 Alkaline Phosphatase 124 units/L (35-129) 09/12/18 12:28 Ammonia 51.0 umol/L (25-60) 09/12/18 12:28 Total Creatine Kinase 101 units/L (55-170) 09/04/18 21:00 Troponin T < 0.010 ng/mL (0.00-0.029) 09/10/18 12:14 Total Protein 5.7 g/dL (6.3-8.2) L 09/12/18 12:28 Albumin 2.6 g/dL (3.9-5) L 09/12/18 12:28 Albumin/Globulin Ratio 0.8 % 09/12/18 12:28 TSH 0.960 mlU/mL (0.270-4.200) 09/04/18 21:00 Urine Color Yellow (Yellow) 09/04/18 23:30 Urine Turbidity Clear (Clear) 09/04/18 23:30 Urine pH 6.0 (5.0-7.0) 09/04/18 23:30 Ur Specific [place] 1.012 (1.003-1.030) 09/04/18 23:30 Urine Protein <15 mg/dl mg/dL (Negative) 09/04/18 23:30 Urine Glucose (UA) Neg mg/dL (Negative) 09/04/18 23:30 Urine Ketones Neg mg/dL (Negative) 09/04/18 23:30 Urine Blood Neg (Negative) 09/04/18 23:30 Urine Nitrite Neg (Negative) 09/04/18 23:30 Urine Bilirubin Neg (Negative) 09/04/18 23:30 Urine Urobilinogen < 2.0 mg/dL (<2.0) 09/04/18 23:30 Ur Leukocyte Esterase Neg (Negative) 09/04/18 23:30 Urine WBC (Auto) 1.0 /HPF (0.0-6.0) 09/04/18 23:30 Urine RBC (Auto) 2.0 /HPF (0.0-6.0) 09/04/18 23:30 Urine Bacteria (Auto) 1+ /HPF (Negative) 09/04/18 23:30 Urine Mucus Few /HPF 09/04/18 23:30 Urine Opiates Screen Presumptive negative 09/04/18 23:30 Urine Methadone Screen Presumptive negative 09/04/18 23:30 Ur Barbiturates Screen Presumptive negative 09/04/18 23:30 Ur Phencyclidine Scrn Presumptive negative 09/04/18 23:30 Ur Amphetamines Screen Presumptive negative 09/04/18 23:30 U Benzodiazepines Scrn Presumptive negative 09/04/18 23:30 Urine Cocaine Screen Presumptive negative 09/04/18 23:30 U Marijuana (THC) Screen Presumptive negative 09/04/18 23:30 Drugs of Abuse Note Disclamer 09/04/18 23:30 Plasma/Serum Alcohol < 0.01 % (0-0.07) 09/04/18 21:00 JAMEEL Screen Negative (Negative) 09/05/18 16:19 Sm ([place]) Antibody <1.0 AI (<1.0) 09/05/18 16:19 Mitochondria M2 Ab <=20.0 U (<=20.0) 09/05/18 16:19 CMV DNA PCR log copy center specialist/mL See scanned results 09/08/18 16:50 Hepatitis A IgM Ab Non-reactive (NonReactive) 09/08/18 06:39 Hep Bs Antigen Non-reactive (Negative) 09/08/18 06:39 Hep B Core IgM Ab Non-reactive (NonReactive) 09/08/18 06:39 Hepatitis C Antibody Non-reactive (NonReactive) 09/08/18 06:39 Miscellaneous Test Flexitest 1 09/09/18 07:03 Active Medications - Current Medications Current Medications: Generic Name Dose Route Start Last Admin Trade Name Freq PRN Reason Stop Dose Admin Acetaminophen 650 mg 09/05/18 02:48 09/09/18 06:44 Tylenol PO 650 mg Q4H PRN Administration Pain MILD(1-3)/Fever >100.5/VILLAREAL Acetaminophen/Hydrocodone Bitart 1 each 09/05/18 02:48 Foster 5/325 PO Q4H PRN Pain, Moderate (4-6) Aspirin 81 mg 09/09/18 17:00 09/22/18 10:32 Baby Aspirin PO 81 mg QDAY GLEN Administration Emtricitabine 200 mg 09/20/18 14:00 09/22/18 10:33 Emtriva PO 200 mg QDAY GLEN Administration Enoxaparin Sodium 40 mg 09/05/18 10:00 09/22/18 10:32 Lovenox SUB-Q 40 mg QDAY GLEN Administration Famotidine 10 mg 09/22/18 22:00 Pepcid PO BID GLEN Sodium Chloride 1,000 mls @ 100 mls/hr 09/16/18 08:00 09/21/18 08:59 Nacl 0.9% 1000 Ml IV 100 mls/hr DIRECT GLEN Administration Midodrine 10 mg 09/05/18 19:00 09/22/18 09:07 Proamatine PO 10 mg TID@0800,1200,1600 GLEN Administration Nystatin 500,000 unit 09/10/18 20:00 09/22/18 09:06 Nystatin PO 500,000 unit TID GLEN Administration Ondansetron HCl 4 mg 09/05/18 02:48 09/10/18 13:06 Zofran IV 4 mg Q8H PRN Administration Nausea And Vomiting Sodium Chloride 10 ml 09/05/18 10:00 09/22/18 10:34 Sodium Chloride Flush Syringe 10 Ml IV 10 ml BID GLEN Administration Sodium Chloride 10 ml 09/05/18 02:48 Sodium Chloride Flush Syringe 10 Ml IV PRN PRN LINE FLUSH Tenofovir Disoproxil Fumarate 300 mg 09/20/18 14:00 09/22/18 10:34 Viread PO 300 mg QDAY GLEN Administration Trimethoprim/Sulfamethoxazole 1 each 09/14/18 10:00 09/22/18 10:32 Bactrim Ds PO 1 each DAILY GLEN Administration Nutrition/Malnutrition Assess - Dietary Evaluation Nutrition/Malnutrition Findings: Nutrition Notes Start: 09/06/18 15:57 Freq: Status: Active Protocol: Document 09/20/18 15:51 RM (Rec: 09/20/18 15:58 RM [id number]) Nutrition Notes Initial or Follow up Reassessment Other Pertinent Diagnosis HIV/AIDS, noncompliance, oral candidiasis Current Diet Regular + Ensure Clear daily Labs/Tests Reviewed Pertinent Medications Reviewed Height 5 ft 3 in Weight 47.6 kg [place] Body Weight (kg) 56.36 BMI 18.6 Subjective/Other Information Pt answers yes or no questions with nods or head shaking. Pt declined offer of Ensure Enlive again. Denied mouth pain when eating. Pt nurse stated that pt is not eating but drinks the Ensure Clear. Pt has not been meeint nutritional needs X 11 days. May need PEG placed if intake does not improve. Percent of energy/protein needs met: 16%/15% Burn Absent Trauma Absent #1 Nutrition Diagnosis Malnutrition Diagnosis Progress(for reassessment Continues documentation) Is patient on ventilator? No Is Patient Ambulatory and/or Out of Bed No REE-([facility]-confined to bed) [phone] Calculation Used for Recommendations [facility] Additional Notes Pro needs 1.2-1.5g/k-69 g /day Fluid needs 1ml/kcal Nutrition Intervention Change Diet Order: Continue current or TF consult Add Supplement/Snack (indicate name/kcal Ensure Clear 1 daily /protein ) Provides kCal: 240 Provides Protein (gm) 8 Goal #1 Meet at least 75% of calorie and protein needs Anticipated Discharge Needs: Regular diet Follow-Up By: 09/23/18 Additional Comments Follow for PO and ONS intakes
[2018-09-22] MEDS: TIVICAY PO SCH (12:06)
--- NOTE | 2018-09-22 14:03 | Progress Note ---
Assessment and Plan Patient awake and weak, resting at this time on room air. No acute respiratory distress. O2 saturation 99%. Patient aferbile and has leukopenia. - Patient Problems (1) Pneumonia Current Visit: Yes Status: Acute Qualifiers: Pneumonia type: due to unspecified organism Laterality: left Lung location: lower lobe of lung Qualified Code(s): J18.1 - Lobar pneumonia, unspecified organism Plan to address problem: Patient is on bactium. (2) AIDS Current Visit: Yes Status: Chronic Plan to address problem: Management as per infectious diseases. (3) Altered mental status Current Visit: Yes Status: Acute Plan to address problem: Management as per primary care and neurology. (4) Oral candidiasis Current Visit: Yes Status: Acute Plan to address problem: Patient getting nystatin. Subjective Date of service: 09/22/18 Principal diagnosis: elevated LFTs, oral candidiasis Interval history: Patient awake and weak, resting at this time on room air. No acute respiratory distress. O2 saturation 99%. Patient aferbile and has leukopenia. Objective Vital Signs - 12hr 09/22/18 09/22/18 05:31 11:16 Temperature 98.5 F 98.1 F Pulse Rate 82 62 Respiratory 32 H 16 Rate Blood Pressure 80/46 88/54 O2 Sat by Pulse 100 99 Oximetry Constitutional: no acute distress, alert, other (Weak) Eyes: non-icteric ENT: oropharynx moist Neck: supple, no lymphadenopathy Ascultation: Bilateral: diminished breath sounds, other (Prolonged expiratory phase.) Cardiovascular: regular rate and rhythm Gastrointestinal: normoactive bowel sounds, soft, non-tender Integumentary: normal Extremities: no cyanosis, no edema Neurologic: other (Patient is sleeping.) Psychiatric: other (Patient sleeping.) CBC and BMP: 09/21/18 15:26 09/15/18 04:31 ABG, PT/INR, D-dimer: PT/INR, D-dimer PT 15.1 Sec. (12.2-14.9) H 09/11/18 05:22 INR 1.12 (0.87-1.13) 09/11/18 05:22 Abnormal lab findings: Abnormal Labs 09/04/18 09/04/18 09/04/18 21:00 21:00 22:32 WBC RBC 3.23 L Hgb 9.6 L Hct 28.9 L RDW 18.8 H Plt Count Lymph % (Auto) [place] % (Auto) 12.5 H Lymph # 0.7 L Seg Neutrophils % 72.4 H Seg Neuts % (Manual) Lymphocytes % (Manual) Monocytes % (Manual) Nucleated RBC % Seg Neutrophils # Man Lymphocytes # (Manual) PT Sodium Potassium Chloride 109.9 H Carbon Dioxide 21 L BUN 31 H Creatinine Glucose Lactic Acid 2.40 H* Calcium 8.2 L Iron TIBC Ferritin AST 200 H ALT 136 H Alkaline Phosphatase 138 H Ammonia Total Protein Albumin 3.5 L 09/04/18 09/05/18 09/05/18 22:32 16:19 16:19 WBC RBC Hgb Hct RDW Plt Count Lymph % (Auto) [place] % (Auto) Lymph # Seg Neutrophils % Seg Neuts % (Manual) Lymphocytes % (Manual) Monocytes % (Manual) Nucleated RBC % Seg Neutrophils # Man Lymphocytes # (Manual) PT Sodium Potassium Chloride 112.4 H Carbon Dioxide 19 L BUN Creatinine Glucose Lactic Acid Calcium 8.1 L Iron TIBC 223 L Ferritin AST 241 H ALT 138 H Alkaline Phosphatase Ammonia 64.0 H Total Protein Albumin 3.1 L 09/05/18 09/06/18 09/06/18 16:19 10:40 10:40 WBC 2.4 L RBC 2.67 L Hgb 7.7 L Hct 23.7 L RDW 18.7 H Plt Count 135 L Lymph % (Auto) 10.0 L [place] % (Auto) 8.4 H Lymph # 0.2 L Seg Neutrophils % 81.1 H Seg Neuts % (Manual) Lymphocytes % (Manual) Monocytes % (Manual) Nucleated RBC % Seg Neutrophils # Man Lymphocytes # (Manual) PT Sodium Potassium Chloride 112.1 H Carbon Dioxide 19 L BUN Creatinine 0.7 L Glucose Lactic Acid Calcium 7.8 L Iron TIBC Ferritin 2880.0 H AST 263 H ALT 143 H Alkaline Phosphatase Ammonia Total Protein 6.1 L Albumin 2.8 L 09/07/18 09/07/18 09/08/18 10:38 10:38 06:39 WBC RBC 2.86 L Hgb 8.3 L Hct 25.2 L RDW 18.3 H Plt Count 123 L Lymph % (Auto) 6.1 L [place] % (Auto) Lymph # 0.3 L Seg Neutrophils % 87.3 H Seg Neuts % (Manual) Lymphocytes % (Manual) Monocytes % (Manual) Nucleated RBC % Seg Neutrophils # Man Lymphocytes # (Manual) PT Sodium Potassium Chloride Carbon Dioxide BUN Creatinine Glucose Lactic Acid Calcium Iron 26 L TIBC 212 L Ferritin 2762.0 H AST ALT Alkaline Phosphatase Ammonia Total Protein Albumin 09/08/18 09/08/18 09/09/18 06:39 13:43 07:03 WBC RBC Hgb Hct RDW Plt Count Lymph % (Auto) [place] % (Auto) Lymph # Seg Neutrophils % Seg Neuts % (Manual) Lymphocytes % (Manual) Monocytes % (Manual) Nucleated RBC % Seg Neutrophils # Man Lymphocytes # (Manual) PT Sodium Potassium 3.2 L 3.5 L Chloride 111.9 H 108.6 H Carbon Dioxide 13 L 15 L BUN 6 L 4 L Creatinine Glucose 118 H Lactic Acid Calcium 7.5 L 7.5 L Iron TIBC Ferritin AST 117 H 130 H ALT 87 H 86 H Alkaline Phosphatase Ammonia Total Protein 5.6 L 6.0 L Albumin 2.6 L 2.6 L 09/09/18 09/10/18 09/10/18 07:31 04:26 04:26 WBC 3.5 L 2.1 L RBC 2.82 L 3.10 L Hgb 8.2 L 9.0 L Hct 24.6 L 27.1 L RDW 18.8 H 18.6 H Plt Count 136 L 139 L Lymph % (Auto) [place] % (Auto) Lymph # Seg Neutrophils % Seg Neuts % (Manual) 77.0 H Lymphocytes % (Manual) 11.0 L Monocytes % (Manual) 11.0 H Nucleated RBC % Seg Neutrophils # Man 1.6 L Lymphocytes # (Manual) 0.2 L PT Sodium Potassium Chloride 112.7 H Carbon Dioxide 14 L BUN 5 L Creatinine Glucose 109 H Lactic Acid Calcium 7.7 L Iron TIBC Ferritin AST 110 H ALT 76 H Alkaline Phosphatase Ammonia Total Protein 6.0 L Albumin 2.8 L 09/11/18 09/12/18 09/13/18 05:22 12:28 07:23 WBC 1.1 L* RBC 2.82 L Hgb 8.2 L Hct 25.5 L RDW 19.5 H Plt Count 103 L Lymph % (Auto) [place] % (Auto) Lymph # Seg Neutrophils % Seg Neuts % (Manual) Lymphocytes % (Manual) Monocytes % (Manual) 18.0 H Nucleated RBC % Seg Neutrophils # Man 0.6 L Lymphocytes # (Manual) 0.3 L PT 15.1 H Sodium 133 L Potassium 3.5 L Chloride 108.8 H Carbon Dioxide 14 L BUN 6 L Creatinine Glucose 123 H Lactic Acid Calcium 7.4 L Iron TIBC Ferritin AST 126 H ALT 77 H Alkaline Phosphatase Ammonia Total Protein 5.7 L Albumin 2.6 L 09/15/18 09/15/18 09/17/18 00:51 04:31 10:52 WBC 1.2 L* 1.2 L* RBC 3.38 L 3.03 L Hgb 9.7 L 8.9 L Hct 29.5 L 27.2 L RDW 19.0 H 19.5 H Plt Count 95 L 59 L Lymph % (Auto) [place] % (Auto) Lymph # Seg Neutrophils % Seg Neuts % (Manual) Lymphocytes % (Manual) Monocytes % (Manual) 24.0 H 14.0 H Nucleated RBC % 2.0 H Seg Neutrophils # Man 0.6 L 0.8 L Lymphocytes # (Manual) 0.3 L 0.2 L PT Sodium Potassium Chloride 112.0 H Carbon Dioxide 13 L BUN Creatinine Glucose 65 L Lactic Acid Calcium Iron TIBC Ferritin AST ALT Alkaline Phosphatase Ammonia Total Protein Albumin 09/21/18 15:26 WBC 1.6 L* RBC 2.94 L Hgb 8.8 L Hct 26.3 L RDW 20.0 H Plt Count 26 L Lymph % (Auto) [place] % (Auto) Lymph # Seg Neutrophils % Seg Neuts % (Manual) Lymphocytes % (Manual) Monocytes % (Manual) 12.0 H Nucleated RBC % Seg Neutrophils # Man 1.0 L Lymphocytes # (Manual) 0.4 L PT Sodium Potassium Chloride Carbon Dioxide BUN Creatinine Glucose Lactic Acid Calcium Iron TIBC Ferritin AST ALT Alkaline Phosphatase Ammonia Total Protein Albumin
[2018-09-22] MEDS: NACL 0.9% 1000 ML 1,000 ML IV SCH (16:18)
[2018-09-22] MEDS: PEPCID PO SCH ×2 (22:54→23:04)
[2018-09-23] MEDS: NACL 0.9% 1000 ML 1,000 ML IV SCH ×2 (02:17→12:46)
[2018-09-23] MEDS: PROAMATINE PO SCH ×3 (08:00→16:35)
[2018-09-23] MEDS: NYSTATIN PO SCH ×3 (08:00→21:36)
[2018-09-23] MEDS: BABY ASPIRIN PO SCH (10:00)
[2018-09-23] MEDS: BACTRIM DS PO SCH (10:00)
[2018-09-23] MEDS: VIREAD PO SCH (10:00)
[2018-09-23] MEDS: EMTRIVA PO SCH (10:00)
[2018-09-23] MEDS: SODIUM CHLORIDE FLUSH SYRINGE 10 ML IV SCH ×2 (10:00→21:37)
[2018-09-23] MEDS: PEPCID PO SCH ×3 (10:00→21:42)
[2018-09-23] MEDS: TIVICAY PO SCH (10:00)
--- NOTE | 2018-09-23 10:17 | Progress Note ---
Assessment and Plan Culture 09/08/2018 Blood culture: no growth 09/08/2018 Serum Cr Ag: negative 09/09/2018 Blood culture: no growth thus far Fungal blood culture: no growth to date A/P: 42 year old male, know to ID from previous admissions on 06/23/18-06/19/18 and 07/18/18- 08/04/18 for pneumonia, HIV/AIDS, severe oral candidiasis and diarrhea. CD4 count 11. Viral Load [id number]. HIV genotype 06/18/2018 with few resistance mutations. CMV negative. Patient remains noncompliant with his HAART therapy. Now admitted with: 1. Altered Mental Status/Acute encephalopathy: Continuing today. 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 CT head shows no acute intracranial abnormality. + chronic maxillary and ethmoid sinusitis. MRI images showing brain atrophy, no focal lesions to suggest toxoplasma, PML, ventriculitis, COMPUTER CONSOLE OPERATOR lymphoma or other space occupying lesions. Crypto Ag is negative. TTE shows no valvular vegetation, EF 30-35 %. -Fungitell: negative -CMV DNR - <200 2. Oral Candidiasis: Improved, h/o resistant Carolann. Continue Nystatin 3. HIV/AIDS: Last admission in June CD4 count 11. Viral load high. Prognosis is poor. Agreed to go to SNF. HIV therapy started 09/20/18 with Truvada + Tivicay. Currently compliant with medication regimen at hospital. 4. Severe Malnutrition: related to HIV AIDS 5. Transaminitis: elevated liver enzymes from last admission. Abdominal ultrasound unremarkable. CT abdomen showing possible enteritis and somewhat inhomogenous liver. may be due to ischemic hepatitis, HIV/AIDS hepatopathy, infectious etiology with viral hepatitis, vs drug toxicity- GI following. Stable to improving. Evaluating for disseminated MAC, fungal/mycolytic blood cultures in process. HAV, HBV, HCV - nonreactive 6. New Fevers : Resolved. 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 CAP vs PCP: Chest CT shows Bilateral pneumonia with findings most prominent in the left lower lobe as described. Bronchiectatic changes in left lower lobe noted also. Scattered blebs in the left lung. Fungitell negative, so PCP quite less likely. bilateral ground glass opacities could be fluid given cardiomyopathy and low EF. 8. Leukopenia: likely from untreated HIV and AIDS. Antiretroviral treatment started 09/20/18. Plan: -continue nystatin swish and swallow -continue Bactrim to 1 DS daily -f/u AFB fungal blood culture Continue Truvada + Tivicay -f/u SNF placement per case management [facility] M: [phone] O:[phone] Subjective Date of service: 09/23/18 Principal diagnosis: elevated LFTs, oral candidiasis Interval history: Patient seen and examined. In restraints with increased confusion. No acute distress observed. No fevers. Objective - Exam Narrative Exam: Constitutional: Awake. Confused. cachexia. No acute distress Head, Ears, Nose: Normocephalic, atraumatic. External ears, nose normal Eyes: Conjunctivae/corneas clear. No icterus. No ptosis. Neck: Supple, no meningeal signs Oral: dentition poor. , Oral thrush improved Cardiovascular: S1, S2 normal. Respiratory: Good air entry, clear to auscultation bilaterally GI: Soft, non-tender; bowel sounds normal. No peritoneal signs Musculoskeletal: No pedal edema, no cyanosis. Skin: No rash or abscess. Hem/Lymphatic: No palpable cervical or supraclavicular nodes. No lymphangitis Psych: Mood ok. Affect flat, Neurological: Awake. Alert. no acute distress - Constitutional Vitals: Vital Signs Temp Pulse Resp BP Pulse Ox 97.6 F 74 20 85/53 100 09/23/18 05:10 09/23/18 05:10 09/23/18 05:10 09/23/18 05:10 09/23/18 05:10 Temperature -Last 24 Hours Temperature 97.6 F Temperature 97.5 F Temperature 98.4 F Temperature 98.1 F - Labs CBC & Chem 7: 09/21/18 15:26 09/15/18 04:31
--- NOTE | 2018-09-23 11:45 | Progress Note ---
Assessment and Plan Assessment and plan: HIV encephalopathy. CT head shows no acute intracranial abnormality. + chronic maxillary and ethmoid sinusitis. MRI images showing brain atrophy, no focal lesions to suggest toxopl asma, PML, ventriculitis, CAN STERILIZER lymphoma or other space occupying lesions. Crypto Ag is negative. TTE shows no valvular vegetation, EF 30-35 %. -Fungitell: negative -CMV DNR - <200 Unfortunately, patient required restraints this morning due to agitation. Continue to monitor, educated nursing with reorientation. Chronic hypotension. 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 h/o resistant Carolann. improved. Continue Nystatin Severe protein calorie malnutrition. related to HIV AIDS. HIV/AIDS. Last admission in June CD4 count 11. Viral load high. Prognosis is poor. Agreed to go to SNF. HIV therapy started 09/20/18 with Truvada + Tivicay. Continue Bactrim DS daily. Transaminitis. Abdominal ultrasound unremarkable. CT abdomen showing possible enteritis and somewhat inhomogenous liver. may be due to ischemic hepatitis, HIV/AIDS hepatopathy, infectious etiology with viral hepatitis, vs drug toxicity- GI following. Stable to improving. Evaluating for disseminated MAC, fungal/mycolytic blood cultures in process. 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 TTE no valvular vegetation, EF 30-35% Bilateral pneumonia. Chest CT shows Bilateral pneumonia with findings most prominent in the left lower lobe as described. Bronchiectatic changes in left lower lobe noted also. Scattered blebs in the left lung. Fungitell negative, so PCP quite less likely. bilateral ground glass opacities could be fluid given cardiomyopathy and low EF. Pancytopenia. Etiology secondary HIV/AIDS Disposition. Awaiting SNF placement. Cardiology and ID recommends Hospice, but patient refuses. History Interval history: Patient is a 42 yo man with a history of HIV/AIDs and anemia who presented to [facility] ED with AMS on 09/04/18. Patient was just discharged from here on 08/04/2018 for sepsis, LLL, lingula pneumonia and severe oral candidiasis. Encephalopathy was attributed to acute metabolic encephalopathy from HIV encephalopathy/ FTT/malnutrition, which has resolved. The patient has noted to have hypotension which is felt to be acute on chronic and not sepsis related. His effective circulatory volume is low due to his malnutrition from severe HIV/AIDS. Patient also noted to have other complications related to this including pancytopenia and oral candidiasis which has been treated. No new issues overnight. Hospitalist Physical - Constitutional Vitals: Temp Pulse Resp BP Pulse Ox 97.6 F 74 20 85/53 100 09/23/18 05:10 09/23/18 05:10 09/23/18 05:10 09/23/18 05:10 09/23/18 05:10 General appearance: Present: no acute distress, well-nourished - EENT Eyes: Present: PERRL, EOM intact ENT: hearing intact, clear oral mucosa, dentition normal - Neck Neck: Present: supple, normal ROM - Respiratory Respiratory effort: normal Respiratory: bilateral: CTA - Cardiovascular Rhythm: regular Heart Sounds: Present: S1 & S2. Absent: gallop, rub - Extremities Extremities: no ischemia, No edema, Full ROM - Abdominal General gastrointestinal: soft, non-tender, non-distended, normal bowel sounds - Integumentary Integumentary: Present: clear, warm, dry - Neurologic Neurologic: CNII-XII intact, moves all extremities Results - Labs CBC & Chem 7: 09/21/18 15:26 09/15/18 04:31 Labs: Laboratory Last Values WBC 1.6 K/mm3 (4.5-11.0) L* 09/21/18 15:26 RBC 2.94 M/mm3 (3.65-5.03) L 09/21/18 15:26 Hgb 8.8 gm/dl (11.8-15.2) L 09/21/18 15:26 Hct 26.3 % (35.5-45.6) L 09/21/18 15:26 MCV 89 fl (84-94) 09/21/18 15:26 MCH 30 pg (28-32) 09/21/18 15:26 MCHC 33 % (32-34) 09/21/18 15:26 RDW 20.0 % (13.2-15.2) H 09/21/18 15:26 Plt Count 26 K/mm3 (140-440) L 09/21/18 15:26 Lymph % (Auto) 6.1 % (13.4-35.0) L 09/08/18 06:39 Stanley % (Auto) Rn Charge 09/17/18 10:52 Eos % (Auto) 0.0 % (0.0-4.3) 09/08/18 06:39 Baso % (Auto) 0.2 % (0.0-1.8) 09/08/18 06:39 Lymph # 0.3 K/mm3 (1.2-5.4) L 09/08/18 06:39 Stanley # 0.3 K/mm3 (0.0-0.8) 09/08/18 06:39 Eos # 0.0 K/mm3 (0.0-0.4) 09/08/18 06:39 Baso # 0.0 K/mm3 (0.0-0.1) 09/08/18 06:39 Add Manual Diff Complete 09/21/18 15:26 Total Counted 25 09/21/18 15:26 Seg Neutrophils % 87.3 % (40.0-70.0) H 09/08/18 06:39 Seg Neuts % (Manual) 64.0 % (40.0-70.0) 09/21/18 15:26 Band Neutrophils % 0 % 09/21/18 15:26 Lymphocytes % (Manual) 24.0 % (13.4-35.0) 09/21/18 15:26 Reactive Lymphs % (Man) 0 % 09/21/18 15:26 Monocytes % (Manual) 12.0 % (0.0-7.3) H 09/21/18 15:26 Eosinophils % (Manual) 0 % (0.0-4.3) 09/21/18 15:26 Basophils % (Manual) 0 % (0.0-1.8) 09/21/18 15:26 Metamyelocytes % 0 % 09/21/18 15:26 Myelocytes % 0 % 09/21/18 15:26 Promyelocytes % 0 % 09/21/18 15:26 Blast Cells % 0 % 09/21/18 15:26 Nucleated RBC % Not Reportable 09/21/18 15:26 Seg Neutrophils # 4.5 K/mm3 (1.8-7.7) 09/08/18 06:39 Seg Neutrophils # Man 1.0 K/mm3 (1.8-7.7) L 09/21/18 15:26 Band Neutrophils # 0.0 K/mm3 09/21/18 15:26 Lymphocytes # (Manual) 0.4 K/mm3 (1.2-5.4) L 09/21/18 15:26 Abs React Lymphs (Man) 0.0 K/mm3 09/21/18 15:26 Monocytes # (Manual) 0.2 K/mm3 (0.0-0.8) 09/21/18 15:26 Eosinophils # (Manual) 0.0 K/mm3 (0.0-0.4) 09/21/18 15:26 Basophils # (Manual) 0.0 K/mm3 (0.0-0.1) 09/21/18 15:26 Metamyelocytes # 0.0 K/mm3 09/21/18 15:26 Myelocytes # 0.0 K/mm3 09/21/18 15:26 Promyelocytes # 0.0 K/mm3 09/21/18 15:26 Blast Cells # 0.0 K/mm3 09/21/18 15:26 WBC Morphology Not Reportable 09/21/18 15:26 Hypersegmented Neuts Not Reportable 09/21/18 15:26 Hyposegmented Neuts Not Reportable 09/21/18 15:26 Hypogranular Neuts Not Reportable 09/21/18 15:26 Smudge Cells Not Reportable 09/21/18 15:26 Toxic Granulation Not Reportable 09/21/18 15:26 Toxic Vacuolation Not Reportable 09/21/18 15:26 Dohle Bodies Not Reportable 09/21/18 15:26 Pelger-Huet Anomaly Not Reportable 09/21/18 15:26 Giovanni Rods Not Reportable 09/21/18 15:26 Platelet Estimate Appears decreased 09/21/18 15:26 Clumped Platelets Not Reportable 09/21/18 15:26 Plt Clumps, EDTA Not Reportable 09/21/18 15:26 Large Platelets Not Reportable 09/21/18 15:26 Giant Platelets Not Reportable 09/21/18 15:26 Platelet Satelliting Not Reportable 09/21/18 15:26 Plt Morphology Comment Not Reportable 09/21/18 15:26 RBC Morphology Not Reportable 09/21/18 15:26 Dimorphic RBCs Not Reportable 09/21/18 15:26 Polychromasia Not Reportable 09/21/18 15:26 Hypochromasia Not Reportable 09/21/18 15:26 Poikilocytosis 3+ 09/21/18 15:26 Anisocytosis 2+ 09/21/18 15:26 Microcytosis Not Reportable 09/21/18 15:26 Macrocytosis Not Reportable 09/21/18 15:26 Spherocytes Not Reportable 09/21/18 15:26 Pappenheimer Bodies Not Reportable 09/21/18 15:26 Sickle Cells Not Reportable 09/21/18 15:26 Target Cells Not Reportable 09/21/18 15:26 Tear Drop Cells 1+ 09/21/18 15:26 Ovalocytes Not Reportable 09/21/18 15:26 Helmet Cells Not Reportable 09/21/18 15:26 [place]-Institute Bodies Not Reportable 09/21/18 15:26 [place] Rings Not Reportable 09/21/18 15:26 Edmonson Cells Not Reportable 09/21/18 15:26 Bite Cells Not Reportable 09/21/18 15:26 Crenated Cell Not Reportable 09/21/18 15:26 Elliptocytes 2+ 09/21/18 15:26 Acanthocytes (Spur) Not Reportable 09/21/18 15:26 Rouleaux Not Reportable 09/21/18 15:26 Hemoglobin C Crystals Not Reportable 09/21/18 15:26 Schistocytes Not Reportable 09/21/18 15:26 Malaria parasites Not Reportable 09/21/18 15:26 Carlos A Bodies Not Reportable 09/21/18 15:26 Hem Pathologist Commnt No 09/21/18 15:26 PT 15.1 Sec. (12.2-14.9) H 09/11/18 05:22 INR 1.12 (0.87-1.13) 09/11/18 05:22 Sodium 140 mmol/L (137-145) D 09/15/18 04:31 Potassium 3.9 mmol/L (3.6-5.0) 09/15/18 04:31 Chloride 112.0 mmol/L (98-107) H 09/15/18 04:31 Carbon Dioxide 13 mmol/L (22-30) L 09/15/18 04:31 Anion Gap 19 mmol/L 09/15/18 04:31 BUN 15 mg/dL (9-20) 09/15/18 04:31 Creatinine 1.3 mg/dL (0.8-1.5) 09/15/18 04:31 Estimated GFR > 60 ml/min 09/15/18 04:31 BUN/Creatinine Ratio 12 % 09/15/18 04:31 Glucose 65 mg/dL (75-100) L 09/15/18 04:31 POC Glucose 91 (70-105) 09/09/18 07:18 Lactic Acid 1.30 mmol/L (0.7-2.0) 09/05/18 03:50 Calcium 8.6 mg/dL (8.4-10.2) D 09/15/18 04:31 Iron 26 ug/dL (49-181) L 09/07/18 10:38 TIBC 212 mcg/dL (250-450) L 09/07/18 10:38 Ferritin 2762.0 ng/mL (13.0-400.0) H 09/07/18 10:38 Total Bilirubin < 0.20 mg/dL (0.1-1.2) 09/12/18 12:28 Direct Bilirubin < 0.2 mg/dL (0-0.2) 09/08/18 13:43 Indirect Bilirubin 0.0 mg/dL 09/06/18 10:40 AST 126 units/L (5-40) H 09/12/18 12:28 ALT 77 units/L (7-56) H 09/12/18 12:28 Alkaline Phosphatase 124 units/L (35-129) 09/12/18 12:28 Ammonia 51.0 umol/L (25-60) 09/12/18 12:28 Total Creatine Kinase 101 units/L (55-170) 09/04/18 21:00 Troponin T < 0.010 ng/mL (0.00-0.029) 09/10/18 12:14 Total Protein 5.7 g/dL (6.3-8.2) L 09/12/18 12:28 Albumin 2.6 g/dL (3.9-5) L 09/12/18 12:28 Albumin/Globulin Ratio 0.8 % 09/12/18 12:28 TSH 0.960 mlU/mL (0.270-4.200) 09/04/18 21:00 Urine Color Yellow (Yellow) 09/04/18 23:30 Urine Turbidity Clear (Clear) 09/04/18 23:30 Urine pH 6.0 (5.0-7.0) 09/04/18 23:30 Ur Specific [place] 1.012 (1.003-1.030) 09/04/18 23:30 Urine Protein <15 mg/dl mg/dL (Negative) 09/04/18 23:30 Urine Glucose (UA) Neg mg/dL (Negative) 09/04/18 23:30 Urine Ketones Neg mg/dL (Negative) 09/04/18 23:30 Urine Blood Neg (Negative) 09/04/18 23:30 Urine Nitrite Neg (Negative) 09/04/18 23:30 Urine Bilirubin Neg (Negative) 09/04/18 23:30 Urine Urobilinogen < 2.0 mg/dL (<2.0) 09/04/18 23:30 Ur Leukocyte Esterase Neg (Negative) 09/04/18 23:30 Urine WBC (Auto) 1.0 /HPF (0.0-6.0) 09/04/18 23:30 Urine RBC (Auto) 2.0 /HPF (0.0-6.0) 09/04/18 23:30 Urine Bacteria (Auto) 1+ /HPF (Negative) 09/04/18 23:30 Urine Mucus Few /HPF 09/04/18 23:30 Urine Opiates Screen Presumptive negative 09/04/18 23:30 Urine Methadone Screen Presumptive negative 09/04/18 23:30 Ur Barbiturates Screen Presumptive negative 09/04/18 23:30 Ur Phencyclidine Scrn Presumptive negative 09/04/18 23:30 Ur Amphetamines Screen Presumptive negative 09/04/18 23:30 U Benzodiazepines Scrn Presumptive negative 09/04/18 23:30 Urine Cocaine Screen Presumptive negative 09/04/18 23:30 U Marijuana (THC) Screen Presumptive negative 09/04/18 23:30 Drugs of Abuse Note Disclamer 09/04/18 23:30 Plasma/Serum Alcohol < 0.01 % (0-0.07) 09/04/18 21:00 JAMEEL Screen Negative (Negative) 09/05/18 16:19 Sm ([place]) Antibody <1.0 AI (<1.0) 09/05/18 16:19 Mitochondria M2 Ab <=20.0 U (<=20.0) 09/05/18 16:19 CMV DNA PCR log endoscopy technician/mL See scanned results 09/08/18 16:50 Hepatitis A IgM Ab Non-reactive (NonReactive) 09/08/18 06:39 Hep Bs Antigen Non-reactive (Negative) 09/08/18 06:39 Hep B Core IgM Ab Non-reactive (NonReactive) 09/08/18 06:39 Hepatitis C Antibody Non-reactive (NonReactive) 09/08/18 06:39 Miscellaneous Test Flexitest 1 09/09/18 07:03 Active Medications - Current Medications Current Medications: Generic Name Dose Route Start Last Admin Trade Name Freq PRN Reason Stop Dose Admin Acetaminophen 650 mg 09/05/18 02:48 09/09/18 06:44 Tylenol PO 650 mg Q4H PRN Administration Pain MILD(1-3)/Fever >100.5/VILLAREAL Acetaminophen/Hydrocodone Bitart 1 each 09/05/18 02:48 [place] 5/325 PO Q4H PRN Pain, Moderate (4-6) Aspirin 81 mg 09/09/18 17:00 09/23/18 10:00 Baby Aspirin PO 81 mg QDAY GLEN Administration Emtricitabine 200 mg 09/20/18 14:00 09/23/18 10:00 Emtriva PO 200 mg QDAY GLEN Administration Famotidine 10 mg 09/22/18 22:00 09/23/18 10:00 Pepcid PO 10 mg BID GLEN Administration Sodium Chloride 1,000 mls @ 100 mls/hr 09/16/18 08:00 09/23/18 02:17 Nacl 0.9% 1000 Ml IV 100 mls/hr DIRECT GLEN Administration Midodrine 10 mg 09/05/18 19:00 09/23/18 08:00 Proamatine PO 10 mg TID@0800,1200,1600 GLEN Administration Nystatin 500,000 unit 09/10/18 20:00 09/23/18 08:00 Nystatin PO 500,000 unit TID GLEN Administration Ondansetron HCl 4 mg 09/05/18 02:48 09/10/18 13:06 Zofran IV 4 mg Q8H PRN Administration Nausea And Vomiting Sodium Chloride 10 ml 09/05/18 10:00 09/23/18 10:00 Sodium Chloride Flush Syringe 10 Ml IV 10 ml BID GLEN Administration Sodium Chloride 10 ml 09/05/18 02:48 Sodium Chloride Flush Syringe 10 Ml IV PRN PRN LINE FLUSH Tenofovir Disoproxil Fumarate 300 mg 09/20/18 14:00 09/23/18 10:00 Viread PO 300 mg QDAY GLEN Administration Trimethoprim/Sulfamethoxazole 1 each 09/14/18 10:00 09/23/18 10:00 Bactrim Ds PO 1 each DAILY GLEN Administration Nutrition/Malnutrition Assess - Dietary Evaluation Nutrition/Malnutrition Findings: Nutrition Notes Start: 09/06/18 15:57 Freq: Status: Active Protocol: Document 09/23/18 10:34 CP (Rec: 09/23/18 10:35 CP [id number]) Co-Sign 09/23/18 10:34 LP Nutrition Notes Initial or Follow up Reassessment Other Pertinent Diagnosis HIV/AIDS, noncompliance, oral candidiasis Current Diet Regular + Ensure Clear daily Labs/Tests Reviewed Pertinent Medications Reviewed Height 5 ft 3 in Weight 47.6 kg [place] Body Weight (kg) 56.36 BMI 18.6 Subjective/Other Information Pt hands were restrained during time of visit. Pt reported that his appetite was okay and he didn't eat due to the restraints. Percent of energy/protein needs met: 0%/0% Burn Absent Trauma Absent #1 Nutrition Diagnosis Malnutrition Diagnosis Progress(for reassessment Continues documentation) Is patient on ventilator? No Is Patient Ambulatory and/or Out of Bed No REE-([facility]-confined to bed) 1528.812 Calculation Used for Recommendations [facility] Additional Notes Pro needs 1.2-1.5g/k-69 g /day Fluid needs 1ml/kcal Nutrition Intervention Change Diet Order: Continue current or TF consult Add Supplement/Snack (indicate name/kcal Ensure Clear 1 daily /protein ) Provides kCal: 240 Provides Protein (gm) 8 Goal #1 Meet at least 75% of calorie and protein needs Anticipated Discharge Needs: Regular diet Follow-Up By: 09/27/18 Additional Comments Follow for PO and ONS intakes
--- NOTE | 2018-09-23 13:31 | Progress Note ---
Assessment and Plan Severe sepsis on background of chronic hypotension AMS due to acute metabolic encephalopathy: HIV/AIDS Panycytopenia Severe protein calorie malnutrition Transaminitis - may be due to ischemic hepatitis, HIV/AIDs hepatopathy, infectious etiology with viral hepatitis, vs drug toxicity. Anemia of chronic disease Acute Renal Failure, resolved Oral Candidiasis Non-adherence to medical therapy Hyperammonemia Metabolic acidosis - added megace to stimulate appetite - aspiration precautions - Conitue with gentle IVF (He remains asymptomatic with the hypotension) - Continue midodrine - consider stress steroids - Anti-infective per ID service - Nutritional support, discussed possibility of nutritional supplements - SCDs for VTE prophylaxis, patient declines pharmacologic prophylaxis - PT/OT to treat - Limit blood draws, in view of anemia - continue other care per attending ... re-evaluate in am & prn Subjective Date of service: 09/23/18 Principal diagnosis: severe sepsis, hypotension, acute encephaloapthy, HIV-AIDS Interval history: Patient is seen today for: severe sepsis, hypotension, acute encephaloapthy, HIV-AIDS Seen and examined at bedside; 24-hour events reviewed; nursing and respiratory care staff consulted; no adverse overnight events reported to me; resting in bed; still with cognitive dysfunction; denies acute chest pains; remains on supplemental oxygen; no emesis or overt aspiration; BP's overall less labile but still some low MAP's Objective Vital Signs - 12hr 09/23/18 09/23/18 09/23/18 05:10 11:45 12:38 Temperature 97.6 F 97 F L Pulse Rate 74 68 Respiratory 20 20 Rate Blood Pressure 85/53 93/65 O2 Sat by Pulse 100 97 Oximetry Constitutional: no acute distress, alert, other (Weak) Eyes: non-icteric ENT: oropharynx moist, oropharyngeal exudate pre, other (mallampati 2) Neck: supple, no lymphadenopathy, no JVD, other Ascultation: Bilateral: clear, diminished breath sounds, other (Prolonged expiratory phase.) Cardiovascular: regular rate and rhythm Gastrointestinal: normoactive bowel sounds, soft, non-tender, non-distended Integumentary: normal Extremities: no cyanosis, no edema, pulses normal, no ischemia or petechiae Neurologic: non-focal exam (grossly), pupils equal and round, other (weak; mild cognitive dysfunction) Psychiatric: other (affect flat) CBC and BMP: 09/24/18 00:33 04/10/19 04:31 ABG, PT/INR, D-dimer: PT/INR, D-dimer PT 15.1 Sec. (12.2-14.9) H 09/11/18 05:22 INR 1.12 (0.87-1.13) 09/11/18 05:22 Abnormal lab findings: Abnormal Labs 09/04/18 09/04/18 09/04/18 21:00 21:00 22:32 WBC RBC 3.23 L Hgb 9.6 L Hct 28.9 L RDW 18.8 H Plt Count Lymph % (Auto) [place] % (Auto) 12.5 H Lymph # 0.7 L Seg Neutrophils % 72.4 H Seg Neuts % (Manual) Lymphocytes % (Manual) Monocytes % (Manual) Nucleated RBC % Seg Neutrophils # Man Lymphocytes # (Manual) PT Sodium Potassium Chloride 109.9 H Carbon Dioxide 21 L BUN 31 H Creatinine Glucose Lactic Acid 2.40 H* Calcium 8.2 L Iron TIBC Ferritin AST 200 H ALT 136 H Alkaline Phosphatase 138 H Ammonia Total Protein Albumin 3.5 L 09/04/18 09/05/18 09/05/18 22:32 16:19 16:19 WBC RBC Hgb Hct RDW Plt Count Lymph % (Auto) [place] % (Auto) Lymph # Seg Neutrophils % Seg Neuts % (Manual) Lymphocytes % (Manual) Monocytes % (Manual) Nucleated RBC % Seg Neutrophils # Man Lymphocytes # (Manual) PT Sodium Potassium Chloride 112.4 H Carbon Dioxide 19 L BUN Creatinine Glucose Lactic Acid Calcium 8.1 L Iron TIBC 223 L Ferritin AST 241 H ALT 138 H Alkaline Phosphatase Ammonia 64.0 H Total Protein Albumin 3.1 L 09/05/18 09/06/18 09/06/18 16:19 10:40 10:40 WBC 2.4 L RBC 2.67 L Hgb 7.7 L Hct 23.7 L RDW 18.7 H Plt Count 135 L Lymph % (Auto) 10.0 L [place] % (Auto) 8.4 H Lymph # 0.2 L Seg Neutrophils % 81.1 H Seg Neuts % (Manual) Lymphocytes % (Manual) Monocytes % (Manual) Nucleated RBC % Seg Neutrophils # Man Lymphocytes # (Manual) PT Sodium Potassium Chloride 112.1 H Carbon Dioxide 19 L BUN Creatinine 0.7 L Glucose Lactic Acid Calcium 7.8 L Iron TIBC Ferritin 2880.0 H AST 263 H ALT 143 H Alkaline Phosphatase Ammonia Total Protein 6.1 L Albumin 2.8 L 09/07/18 09/07/18 09/08/18 10:38 10:38 06:39 WBC RBC 2.86 L Hgb 8.3 L Hct 25.2 L RDW 18.3 H Plt Count 123 L Lymph % (Auto) 6.1 L [place] % (Auto) Lymph # 0.3 L Seg Neutrophils % 87.3 H Seg Neuts % (Manual) Lymphocytes % (Manual) Monocytes % (Manual) Nucleated RBC % Seg Neutrophils # Man Lymphocytes # (Manual) PT Sodium Potassium Chloride Carbon Dioxide BUN Creatinine Glucose Lactic Acid Calcium Iron 26 L TIBC 212 L Ferritin 2762.0 H AST ALT Alkaline Phosphatase Ammonia Total Protein Albumin 09/08/18 09/08/18 09/09/18 06:39 13:43 07:03 WBC RBC Hgb Hct RDW Plt Count Lymph % (Auto) [place] % (Auto) Lymph # Seg Neutrophils % Seg Neuts % (Manual) Lymphocytes % (Manual) Monocytes % (Manual) Nucleated RBC % Seg Neutrophils # Man Lymphocytes # (Manual) PT Sodium Potassium 3.2 L 3.5 L Chloride 111.9 H 108.6 H Carbon Dioxide 13 L 15 L BUN 6 L 4 L Creatinine Glucose 118 H Lactic Acid Calcium 7.5 L 7.5 L Iron TIBC Ferritin AST 117 H 130 H ALT 87 H 86 H Alkaline Phosphatase Ammonia Total Protein 5.6 L 6.0 L Albumin 2.6 L 2.6 L 09/09/18 09/10/18 09/10/18 07:31 04:26 04:26 WBC 3.5 L 2.1 L RBC 2.82 L 3.10 L Hgb 8.2 L 9.0 L Hct 24.6 L 27.1 L RDW 18.8 H 18.6 H Plt Count 136 L 139 L Lymph % (Auto) [place] % (Auto) Lymph # Seg Neutrophils % Seg Neuts % (Manual) 77.0 H Lymphocytes % (Manual) 11.0 L Monocytes % (Manual) 11.0 H Nucleated RBC % Seg Neutrophils # Man 1.6 L Lymphocytes # (Manual) 0.2 L PT Sodium Potassium Chloride 112.7 H Carbon Dioxide 14 L BUN 5 L Creatinine Glucose 109 H Lactic Acid Calcium 7.7 L Iron TIBC Ferritin AST 110 H ALT 76 H Alkaline Phosphatase Ammonia Total Protein 6.0 L Albumin 2.8 L 09/11/18 09/12/18 09/13/18 05:22 12:28 07:23 WBC 1.1 L* RBC 2.82 L Hgb 8.2 L Hct 25.5 L RDW 19.5 H Plt Count 103 L Lymph % (Auto) [place] % (Auto) Lymph # Seg Neutrophils % Seg Neuts % (Manual) Lymphocytes % (Manual) Monocytes % (Manual) 18.0 H Nucleated RBC % Seg Neutrophils # Man 0.6 L Lymphocytes # (Manual) 0.3 L PT 15.1 H Sodium 133 L Potassium 3.5 L Chloride 108.8 H Carbon Dioxide 14 L BUN 6 L Creatinine Glucose 123 H Lactic Acid Calcium 7.4 L Iron TIBC Ferritin AST 126 H ALT 77 H Alkaline Phosphatase Ammonia Total Protein 5.7 L Albumin 2.6 L 09/15/18 09/15/18 09/17/18 00:51 04:31 10:52 WBC 1.2 L* 1.2 L* RBC 3.38 L 3.03 L Hgb 9.7 L 8.9 L Hct 29.5 L 27.2 L RDW 19.0 H 19.5 H Plt Count 95 L 59 L Lymph % (Auto) [place] % (Auto) Lymph # Seg Neutrophils % Seg Neuts % (Manual) Lymphocytes % (Manual) Monocytes % (Manual) 24.0 H 14.0 H Nucleated RBC % 2.0 H Seg Neutrophils # Man 0.6 L 0.8 L Lymphocytes # (Manual) 0.3 L 0.2 L PT Sodium Potassium Chloride 112.0 H Carbon Dioxide 13 L BUN Creatinine Glucose 65 L Lactic Acid Calcium Iron TIBC Ferritin AST ALT Alkaline Phosphatase Ammonia Total Protein Albumin 09/21/18 15:26 WBC 1.6 L* RBC 2.94 L Hgb 8.8 L Hct 26.3 L RDW 20.0 H Plt Count 26 L Lymph % (Auto) [place] % (Auto) Lymph # Seg Neutrophils % Seg Neuts % (Manual) Lymphocytes % (Manual) Monocytes % (Manual) 12.0 H Nucleated RBC % Seg Neutrophils # Man 1.0 L Lymphocytes # (Manual) 0.4 L PT Sodium Potassium Chloride Carbon Dioxide BUN Creatinine Glucose Lactic Acid Calcium Iron TIBC Ferritin AST ALT Alkaline Phosphatase Ammonia Total Protein Albumin Chest x-ray: image reviewed (clear) Allied health notes reviewed: nursing
[2018-09-23] MEDS: NORCO 5/325 PO PRN ×2 (13:38→16:35)
[2018-09-23] MEDS ORDERED: ATROPINE IV ONE (22:16)
[2018-09-24 01:17] LABS: Hematocrit 23.8 % (35.5-45.6); Hemoglobin 7.8 gm/dl (11.8-15.2); Mean Corpuscular HGB Conc 33 % (32-34); Mean Corpuscular Volume 89 fl (84-94); Red Blood Count 2.67 M/mm3 (3.65-5.03)
[2018-09-24 01:18] LABS: Platelet Count 28 K/mm3 (140-440); Red Cell Distribution Width 20.3 % (13.2-15.2)
[2018-09-24 04:12] LABS: Band Neutrophils # (Manual) 0.1 K/mm3; Basophils % (Manual) 0 % (0.0-1.8); Eosinophils % (Manual) 0 % (0.0-4.3); Total Cells Counted 50
[2018-09-24 04:13] LABS: Anisocytosis 2+; Poikilocytosis 2+; Tear Drop Cells 1+
[2018-09-24 04:14] LABS: Platelet Estimate Consistent w Auto
--- NOTE | 2018-09-24 06:47 | Event Note ---
Date: 09/23/18 was called for pt around for 30, nurse reports that the pt's heart rate has been between 36-high 40 all day, pt was seen and assessed, he is awake and moving around, pt's nurse reports no change in mental status, his blood pressure was in the low 100's, with no no acute distress. Atropine was ordered to keep at pt's beside. Pt's nurse called again with the same reports, I called cardiology consult, spoke with Dr Velasquez who recommend transfer pt to [facility] for close monitoring and he will see the pt in am.
[2018-09-24] MEDS: NYSTATIN PO SCH ×3 (08:41→20:56)
[2018-09-24] MEDS: PROAMATINE PO SCH ×3 (08:41→17:39)
--- NOTE | 2018-09-24 09:13 | Progress Note ---
Assessment and Plan Severe sepsis on background of chronic hypotension AMS due to acute metabolic encephalopathy: HIV/AIDS Leukopenia Bilateral alveolar infiltrates on CT chest Cardiomyopathy EF 30-35% Asymptomatic bradycardia Severe protein calorie malnutrition Transaminitis - may be due to ischemic hepatitis, HIV/AIDs hepatopathy, infectious etiology with viral hepatitis, vs drug toxicity. Anemia of chronic disease Acute Renal Failure, resolved Oral Candidiasis Non-adherence to medical therapy Hyperammonemia Metabolic acidosis - Telemetry monitoring, for bradycardia -Continue to monitor hemodynamics - Continue blood pressure support - Anti-infective per ID service - Nutritional support, - SCDs for VTE prophylaxis, patient declines pharmacologic prophylaxis - PT/OT ,mobility -Supportive care -Cardioprotective measures, will need adjust of AV sherwin blockers, defer Cardiology -Continue to trend WCC - Limit blood draws, in view of anemia Prognosis remains guarded. He remains full code. Continue to monitor hemodynamics closely. Subjective Date of service: 09/24/18 Principal diagnosis: elevated LFTs, oral candidiasis Interval history: Patient is seen today for: severe sepsis, hypotension, acute encephaloapthy, HIV-AIDS Seen and examined at bedside; 24-hour events reviewed; nursing and respiratory care staff consulted; RN reports bradycardia overnight, patient was asymptomatic with low normal blood pressure He denies any fevers, no chills. Appetite is improving. More interactive Denies any chest pain, no shortness of breath. Objective Vital Signs - 12hr 09/23/18 09/23/18 09/23/18 22:00 22:20 23:00 Temperature 97.0 F L Pulse Rate 38 L 58 L Pulse Rate [ 44 L Apical] Respiratory 20 20 16 Rate Blood Pressure 92/67 O2 Sat by Pulse 98 98 Oximetry 09/24/18 09/24/18 09/24/18 03:43 04:42 09:06 Temperature 98.1 F Pulse Rate 40 L 61 69 Pulse Rate [ Apical] Respiratory 18 20 Rate Blood Pressure 85/57 81/53 O2 Sat by Pulse 99 100 Oximetry 09/24/18 09/24/18 09:08 09:10 Temperature 97.9 F Pulse Rate 75 Pulse Rate [ Apical] Respiratory Rate Blood Pressure O2 Sat by Pulse Oximetry Constitutional: no acute distress, alert, other (Weak) Eyes: non-icteric ENT: oropharynx moist Neck: supple, no lymphadenopathy Effort: normal Ascultation: Bilateral: diminished breath sounds, other (Prolonged expiratory phase.) Cardiovascular: regular rate and rhythm (Bradycardia), other (S1,S2) Gastrointestinal: normoactive bowel sounds, soft, non-tender, non-distended Integumentary: normal Extremities: no cyanosis, no edema, pulses normal, no ischemia or petechiae Neurologic: non-focal exam, pupils equal and round, CN II-XII normal, other (some cognitive delay) Psychiatric: other (Patient sleeping.) CBC and BMP: 10/02/18 06:00 10/02/18 06:00 ABG, PT/INR, D-dimer: PT/INR, D-dimer PT 15.1 Sec. (12.2-14.9) H 09/11/18 05:22 INR 1.12 (0.87-1.13) 09/11/18 05:22 Abnormal lab findings: Abnormal Labs 09/04/18 09/04/18 09/04/18 21:00 21:00 22:32 WBC RBC 3.23 L Hgb 9.6 L Hct 28.9 L RDW 18.8 H Plt Count Lymph % (Auto) [place] % (Auto) 12.5 H Lymph # 0.7 L Seg Neutrophils % 72.4 H Seg Neuts % (Manual) Lymphocytes % (Manual) Monocytes % (Manual) Nucleated RBC % Seg Neutrophils # Man Lymphocytes # (Manual) PT Sodium Potassium Chloride 109.9 H Carbon Dioxide 21 L BUN 31 H Creatinine Glucose Lactic Acid 2.40 H* Calcium 8.2 L Iron TIBC Ferritin AST 200 H ALT 136 H Alkaline Phosphatase 138 H Ammonia Total Protein Albumin 3.5 L 09/04/18 09/05/18 09/05/18 22:32 16:19 16:19 WBC RBC Hgb Hct RDW Plt Count Lymph % (Auto) [place] % (Auto) Lymph # Seg Neutrophils % Seg Neuts % (Manual) Lymphocytes % (Manual) Monocytes % (Manual) Nucleated RBC % Seg Neutrophils # Man Lymphocytes # (Manual) PT Sodium Potassium Chloride 112.4 H Carbon Dioxide 19 L BUN Creatinine Glucose Lactic Acid Calcium 8.1 L Iron TIBC 223 L Ferritin AST 241 H ALT 138 H Alkaline Phosphatase Ammonia 64.0 H Total Protein Albumin 3.1 L 09/05/18 09/06/18 09/06/18 16:19 10:40 10:40 WBC 2.4 L RBC 2.67 L Hgb 7.7 L Hct 23.7 L RDW 18.7 H Plt Count 135 L Lymph % (Auto) 10.0 L [place] % (Auto) 8.4 H Lymph # 0.2 L Seg Neutrophils % 81.1 H Seg Neuts % (Manual) Lymphocytes % (Manual) Monocytes % (Manual) Nucleated RBC % Seg Neutrophils # Man Lymphocytes # (Manual) PT Sodium Potassium Chloride 112.1 H Carbon Dioxide 19 L BUN Creatinine 0.7 L Glucose Lactic Acid Calcium 7.8 L Iron TIBC Ferritin 2880.0 H AST 263 H ALT 143 H Alkaline Phosphatase Ammonia Total Protein 6.1 L Albumin 2.8 L 09/07/18 09/07/18 09/08/18 10:38 10:38 06:39 WBC RBC 2.86 L Hgb 8.3 L Hct 25.2 L RDW 18.3 H Plt Count 123 L Lymph % (Auto) 6.1 L [place] % (Auto) Lymph # 0.3 L Seg Neutrophils % 87.3 H Seg Neuts % (Manual) Lymphocytes % (Manual) Monocytes % (Manual) Nucleated RBC % Seg Neutrophils # Man Lymphocytes # (Manual) PT Sodium Potassium Chloride Carbon Dioxide BUN Creatinine Glucose Lactic Acid Calcium Iron 26 L TIBC 212 L Ferritin 2762.0 H AST ALT Alkaline Phosphatase Ammonia Total Protein Albumin 09/08/18 09/08/18 09/09/18 06:39 13:43 07:03 WBC RBC Hgb Hct RDW Plt Count Lymph % (Auto) [place] % (Auto) Lymph # Seg Neutrophils % Seg Neuts % (Manual) Lymphocytes % (Manual) Monocytes % (Manual) Nucleated RBC % Seg Neutrophils # Man Lymphocytes # (Manual) PT Sodium Potassium 3.2 L 3.5 L Chloride 111.9 H 108.6 H Carbon Dioxide 13 L 15 L BUN 6 L 4 L Creatinine Glucose 118 H Lactic Acid Calcium 7.5 L 7.5 L Iron TIBC Ferritin AST 117 H 130 H ALT 87 H 86 H Alkaline Phosphatase Ammonia Total Protein 5.6 L 6.0 L Albumin 2.6 L 2.6 L 09/09/18 09/10/18 09/10/18 07:31 04:26 04:26 WBC 3.5 L 2.1 L RBC 2.82 L 3.10 L Hgb 8.2 L 9.0 L Hct 24.6 L 27.1 L RDW 18.8 H 18.6 H Plt Count 136 L 139 L Lymph % (Auto) [place] % (Auto) Lymph # Seg Neutrophils % Seg Neuts % (Manual) 77.0 H Lymphocytes % (Manual) 11.0 L Monocytes % (Manual) 11.0 H Nucleated RBC % Seg Neutrophils # Man 1.6 L Lymphocytes # (Manual) 0.2 L PT Sodium Potassium Chloride 112.7 H Carbon Dioxide 14 L BUN 5 L Creatinine Glucose 109 H Lactic Acid Calcium 7.7 L Iron TIBC Ferritin AST 110 H ALT 76 H Alkaline Phosphatase Ammonia Total Protein 6.0 L Albumin 2.8 L 09/11/18 09/12/18 09/13/18 05:22 12:28 07:23 WBC 1.1 L* RBC 2.82 L Hgb 8.2 L Hct 25.5 L RDW 19.5 H Plt Count 103 L Lymph % (Auto) [place] % (Auto) Lymph # Seg Neutrophils % Seg Neuts % (Manual) Lymphocytes % (Manual) Monocytes % (Manual) 18.0 H Nucleated RBC % Seg Neutrophils # Man 0.6 L Lymphocytes # (Manual) 0.3 L PT 15.1 H Sodium 133 L Potassium 3.5 L Chloride 108.8 H Carbon Dioxide 14 L BUN 6 L Creatinine Glucose 123 H Lactic Acid Calcium 7.4 L Iron TIBC Ferritin AST 126 H ALT 77 H Alkaline Phosphatase Ammonia Total Protein 5.7 L Albumin 2.6 L 09/15/18 09/15/18 09/17/18 00:51 04:31 10:52 WBC 1.2 L* 1.2 L* RBC 3.38 L 3.03 L Hgb 9.7 L 8.9 L Hct 29.5 L 27.2 L RDW 19.0 H 19.5 H Plt Count 95 L 59 L Lymph % (Auto) [place] % (Auto) Lymph # Seg Neutrophils % Seg Neuts % (Manual) Lymphocytes % (Manual) Monocytes % (Manual) 24.0 H 14.0 H Nucleated RBC % 2.0 H Seg Neutrophils # Man 0.6 L 0.8 L Lymphocytes # (Manual) 0.3 L 0.2 L PT Sodium Potassium Chloride 112.0 H Carbon Dioxide 13 L BUN Creatinine Glucose 65 L Lactic Acid Calcium Iron TIBC Ferritin AST ALT Alkaline Phosphatase Ammonia Total Protein Albumin 09/21/18 09/24/18 15:26 00:33 WBC 1.6 L* 0.7 L* RBC 2.94 L 2.67 L Hgb 8.8 L 7.8 L Hct 26.3 L 23.8 L RDW 20.0 H 20.3 H Plt Count 26 L 28 L Lymph % (Auto) [place] % (Auto) Lymph # Seg Neutrophils % Seg Neuts % (Manual) Lymphocytes % (Manual) Monocytes % (Manual) 12.0 H 10.0 H Nucleated RBC % Seg Neutrophils # Man 1.0 L 0.4 L Lymphocytes # (Manual) 0.4 L 0.1 L PT Sodium Potassium Chloride Carbon Dioxide BUN Creatinine Glucose Lactic Acid Calcium Iron TIBC Ferritin AST ALT Alkaline Phosphatase Ammonia Total Protein Albumin Allied health notes reviewed: nursing
--- NOTE | 2018-09-24 10:11 | Progress Note ---
Assessment and Plan Culture 09/08/2018 Blood culture: no growth 09/08/2018 Serum Cr Ag: negative 09/09/2018 Blood culture: no growth thus far Fungal blood culture: no growth to date A/P: 42 year old male, know to ID from previous admissions on 06/23/18-06/19/18 and 07/18/18- 08/04/18 for pneumonia, HIV/AIDS, severe oral candidiasis and diarrhea. CD4 count 11. Viral Load [id number]. HIV genotype 06/18/2018 with few resistance mutations. CMV negative. Patient remains noncompliant with his HAART therapy. Now admitted with: 1. Altered Mental Status/Acute encephalopathy: Improved, back to baseline today. 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 CT head shows no acute intracranial abnormality. + chronic maxillary and ethmoid sinusitis. MRI images showing brain atrophy, no focal lesions to suggest toxoplasma, PML, ventriculitis, [employer] lymphoma or other space occupying lesions. Crypto Ag is negative. TTE shows no valvular vegetation, EF 30-35 %. -Fungitell: negative -CMV DNR - <200 2. Oral Candidiasis: White plaque on the oropharynx, tongue and inner and outer portion of the lips. h/o resistant Carolann. Continue Nystatin. Start micafungin. 3. HIV/AIDS: Last admission in June CD4 count 11. Viral load high. Prognosis is poor. Agreed to go to SNF. HIV therapy started 09/20/18 with Truvada + Tivicay. Currently compliant with medication regimen at hospital. 4. Severe Malnutrition: related to HIV AIDS 5. Transaminitis: elevated liver enzymes from last admission. Abdominal ultrasound unremarkable. CT abdomen showing possible enteritis and somewhat inhomogenous liver. may be due to ischemic hepatitis, HIV/AIDS hepatopathy, infectious etiology with viral hepatitis, vs drug toxicity- GI following. Stable to improving. Evaluating for disseminated MAC, fungal/mycolytic blood cultures in process. HAV, HBV, HCV - nonreactive 6. New Fevers : Resolved. 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 CAP vs PCP: Chest CT shows Bilateral pneumonia with findings most prominent in the left lower lobe as described. Bronchiectatic changes in left lower lobe noted also. Scattered blebs in the left lung. Fungitell negative, so PCP quite less likely. bilateral ground glass opacities could be fluid given cardiomyopathy and low EF. 8. Pancytopenia: likely from untreated HIV and AIDS. Antiretroviral treatment started 09/20/18. Will request bone marrow biopsy for histopath and fungal AFB stain. Plan: -continue nystatin swish and swallow -continue Bactrim to 1 DS daily -Start Micafungin 100mg IV q day -f/u AFB fungal blood culture -Continue Truvada + Tivicay -Request bone marrow biopsy for histopath and fungal AFB stain -CMV, DNA, PCR blood, HHV [address] Ryder is flotation tender this weekend [phone], please call for questions. [facility] M: [phone] O:[phone] Subjective Date of service: 09/24/18 Principal diagnosis: severe sepsis, hypotension, acute encephaloapthy, HIV-AIDS Interval history: Patient seen and examined. More alert today, less confused. Denies pain, SOB . No fevers. Objective - Exam Narrative Exam: Constitutional: Awake. Confused. cachexia. No acute distress Head, Ears, Nose: Normocephalic, atraumatic. External ears, nose normal Eyes: Conjunctivae/corneas clear. No icterus. No ptosis. Neck: Supple, no meningeal signs Oral: dentition poor. ,Oral candidiasis , white plaque on the oropharynx, tongue, inner and outer portion of the lips. Cardiovascular: S1, S2 normal. Respiratory: Good air entry, clear to auscultation bilaterally GI: Soft, non-tender; bowel sounds normal. No peritoneal signs Musculoskeletal: No pedal edema, no cyanosis. Skin: No rash or abscess. Hem/Lymphatic: No palpable cervical or supraclavicular nodes. No lymphangitis Psych: Mood ok. Affect flat, Neurological: Awake. Alert. no acute distress - Constitutional Vitals: Vital Signs Temp Pulse Resp BP Pulse Ox 97.9 F 75 20 81/53 100 09/24/18 09:08 09/24/18 09:10 09/24/18 09:06 09/24/18 09:06 09/24/18 09:06 Temperature -Last 24 Hours Temperature 97.9 F Temperature 98.1 F Temperature 97.0 F Temperature 98.7 F Temperature 97.7 F Temperature 97 F - Labs CBC & Chem 7: 09/24/18 00:33 09/15/18 04:31 Labs: Abnormal lab results 09/24/18 Range/Units 00:33 WBC 0.7 L* (4.5-11.0) K/mm3 RBC 2.67 L (3.65-5.03) M/mm3 Hgb 7.8 L (11.8-15.2) gm/dl Hct 23.8 L (35.5-45.6) % RDW 20.3 H (13.2-15.2) % Plt Count 28 L (140-440) K/mm3 Monocytes % (Manual) 10.0 H (0.0-7.3) % Seg Neutrophils # Man 0.4 L (1.8-7.7) K/mm3 Lymphocytes # (Manual) 0.1 L (1.2-5.4) K/mm3
[2018-09-24] MEDS: BABY ASPIRIN PO SCH (11:17)
[2018-09-24] MEDS: VIREAD PO SCH (11:17)
[2018-09-24] MEDS: EMTRIVA PO SCH (11:17)
[2018-09-24] MEDS: MEGACE PO SCH (11:17)
[2018-09-24] MEDS: PEPCID PO SCH ×2 (11:18→22:25)
[2018-09-24] MEDS: BACTRIM DS PO SCH (11:18)
[2018-09-24] MEDS: TIVICAY PO SCH (11:19)
[2018-09-24] MEDS: SODIUM CHLORIDE FLUSH SYRINGE 10 ML IV SCH ×2 (11:19→22:26)
--- NOTE | 2018-09-24 12:35 | Progress Note ---
Assessment and Plan Assessment and plan: HIV encephalopathy. CT head shows no acute intracranial abnormality. + chronic maxillary and ethmoid sinusitis. MRI images showing brain atrophy, no focal lesions to suggest toxopl asma, PML, ventriculitis, SECURITY INSTALLER lymphoma or other space occupying lesions. Crypto Ag is negative. TTE shows no valvular vegetation, EF 30-35 %. -Fungitell: negative -CMV DNR - <200 Unfortunately, patient required restraints this morning due to agitation. Continue to monitor, educated nursing with reorientation. Chronic hypotension. 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 h/o resistant Carolann. improved. Continue Nystatin Severe protein calorie malnutrition. related to HIV AIDS. HIV/AIDS. Last admission in June CD4 count 11. Viral load high. Prognosis is poor. Agreed to go to SNF. HIV therapy started 09/20/18 with Truvada + Tivicay. Continue Bactrim DS daily. Transaminitis. Abdominal ultrasound unremarkable. CT abdomen showing possible enteritis and somewhat inhomogenous liver. may be due to ischemic hepatitis, HIV/AIDS hepatopathy, infectious etiology with viral hepatitis, vs drug toxicity- GI following. Stable to improving. Evaluating for disseminated MAC, fungal/mycolytic blood cultures in process. 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 TTE no valvular vegetation, EF 30-35% Bilateral pneumonia. Chest CT shows Bilateral pneumonia with findings most prominent in the left lower lobe as described. Bronchiectatic changes in left lower lobe noted also. Scattered blebs in the left lung. Fungitell negative, so PCP quite less likely. bilateral ground glass opacities could be fluid given cardiomyopathy and low EF. Pancytopenia with severe thrombocytopenia. Etiology secondary HIV/AIDS. ID recommends hematology consultation. Patient may need Neupogen. Check HIT panel Disposition. Awaiting SNF placement. Cardiology and ID recommends Hospice, but patient refuses. History Interval history: Patient is a 42 yo man with a history of HIV/AIDs and anemia who presented to [facility] ED with AMS on 09/04/18. Patient was just discharged from here on 08/04/2018 for sepsis, LLL, lingula pneumonia and severe oral candidiasis. Encephalopathy was attributed to acute metabolic encephalopathy from HIV e ncephalopathy/FTT/malnutrition, which has resolved. The patient has noted to have hypotension which is felt to be acute on chronic and not sepsis related. His effective circulatory volume is low due to his malnutrition from severe HIV/AIDS. Patient also noted to have other complications related to this including pancytopenia and oral candidiasis which has been treated. No new issues overnight. Hospitalist Physical - Constitutional Vitals: Temp Pulse Resp BP Pulse Ox 97.9 F 75 20 81/53 100 09/24/18 09:08 09/24/18 09:10 09/24/18 09:06 09/24/18 09:06 09/24/18 09:06 General appearance: Present: no acute distress, well-nourished - EENT Eyes: Present: PERRL, EOM intact ENT: hearing intact, clear oral mucosa, dentition normal - Neck Neck: Present: supple, normal ROM - Respiratory Respiratory effort: normal Respiratory: bilateral: CTA - Cardiovascular Rhythm: regular Heart Sounds: Present: S1 & S2. Absent: gallop, rub - Extremities Extremities: no ischemia, No edema, Full ROM - Abdominal General gastrointestinal: soft, non-tender, non-distended, normal bowel sounds - Integumentary Integumentary: Present: clear, warm, dry - Neurologic Neurologic: CNII-XII intact, moves all extremities Results - Labs CBC & Chem 7: 09/24/18 00:33 09/15/18 04:31 Labs: Laboratory Last Values WBC 0.7 K/mm3 (4.5-11.0) L* 09/24/18 00:33 RBC 2.67 M/mm3 (3.65-5.03) L 09/24/18 00:33 Hgb 7.8 gm/dl (11.8-15.2) L 09/24/18 00:33 Hct 23.8 % (35.5-45.6) L 09/24/18 00:33 MCV 89 fl (84-94) 09/24/18 00:33 MCH 29 pg (28-32) 09/24/18 00:33 MCHC 33 % (32-34) 09/24/18 00:33 RDW 20.3 % (13.2-15.2) H 09/24/18 00:33 Plt Count 28 K/mm3 (140-440) L 09/24/18 00:33 Lymph % (Auto) 6.1 % (13.4-35.0) L 09/08/18 06:39 Orange % (Auto) Residential Advisor 09/24/18 00:33 Eos % (Auto) 0.0 % (0.0-4.3) 09/08/18 06:39 Baso % (Auto) 0.2 % (0.0-1.8) 09/08/18 06:39 Lymph # 0.3 K/mm3 (1.2-5.4) L 09/08/18 06:39 Orange # 0.3 K/mm3 (0.0-0.8) 09/08/18 06:39 Eos # 0.0 K/mm3 (0.0-0.4) 09/08/18 06:39 Baso # 0.0 K/mm3 (0.0-0.1) 09/08/18 06:39 Add Manual Diff Complete 09/24/18 00:33 Total Counted 50 09/24/18 00:33 Seg Neutrophils % 87.3 % (40.0-70.0) H 09/08/18 06:39 Seg Neuts % (Manual) 62.0 % (40.0-70.0) 09/24/18 00:33 Band Neutrophils % 14.0 % 09/24/18 00:33 Lymphocytes % (Manual) 14.0 % (13.4-35.0) 09/24/18 00:33 Reactive Lymphs % (Man) 0 % 09/24/18 00:33 Monocytes % (Manual) 10.0 % (0.0-7.3) H 09/24/18 00:33 Eosinophils % (Manual) 0 % (0.0-4.3) 09/24/18 00:33 Basophils % (Manual) 0 % (0.0-1.8) 09/24/18 00:33 Metamyelocytes % 0 % 09/24/18 00:33 Myelocytes % 0 % 09/24/18 00:33 Promyelocytes % 0 % 09/24/18 00:33 Blast Cells % 0 % 09/24/18 00:33 Nucleated RBC % Not Reportable 09/24/18 00:33 Seg Neutrophils # 4.5 K/mm3 (1.8-7.7) 09/08/18 06:39 Seg Neutrophils # Man 0.4 K/mm3 (1.8-7.7) L 09/24/18 00:33 Band Neutrophils # 0.1 K/mm3 09/24/18 00:33 Lymphocytes # (Manual) 0.1 K/mm3 (1.2-5.4) L 09/24/18 00:33 Abs React Lymphs (Man) 0.0 K/mm3 09/24/18 00:33 Monocytes # (Manual) 0.1 K/mm3 (0.0-0.8) 09/24/18 00:33 Eosinophils # (Manual) 0.0 K/mm3 (0.0-0.4) 09/24/18 00:33 Basophils # (Manual) 0.0 K/mm3 (0.0-0.1) 09/24/18 00:33 Metamyelocytes # 0.0 K/mm3 09/24/18 00:33 Myelocytes # 0.0 K/mm3 09/24/18 00:33 Promyelocytes # 0.0 K/mm3 09/24/18 00:33 Blast Cells # 0.0 K/mm3 09/24/18 00:33 WBC Morphology Not Reportable 09/24/18 00:33 Hypersegmented Neuts Not Reportable 09/24/18 00:33 Hyposegmented Neuts Not Reportable 09/24/18 00:33 Hypogranular Neuts Not Reportable 09/24/18 00:33 Smudge Cells Not Reportable 09/24/18 00:33 Toxic Granulation Not Reportable 09/24/18 00:33 Toxic Vacuolation Not Reportable 09/24/18 00:33 Dohle Bodies Not Reportable 09/24/18 00:33 Pelger-Huet Anomaly Not Reportable 09/24/18 00:33 Giovanni Rods Not Reportable 09/24/18 00:33 Platelet Estimate Consistent w auto 09/24/18 00:33 Clumped Platelets Not Reportable 09/24/18 00:33 Plt Clumps, EDTA Not Reportable 09/24/18 00:33 Large Platelets Not Reportable 09/24/18 00:33 Giant Platelets Not Reportable 09/24/18 00:33 Platelet Satelliting Not Reportable 09/24/18 00:33 Plt Morphology Comment Not Reportable 09/24/18 00:33 RBC Morphology Not Reportable 09/24/18 00:33 Dimorphic RBCs Not Reportable 09/24/18 00:33 Polychromasia Not Reportable 09/24/18 00:33 Hypochromasia Not Reportable 09/24/18 00:33 Poikilocytosis 2+ 09/24/18 00:33 Anisocytosis 2+ 09/24/18 00:33 Microcytosis Not Reportable 09/24/18 00:33 Macrocytosis Not Reportable 09/24/18 00:33 Spherocytes Not Reportable 09/24/18 00:33 Pappenheimer Bodies Not Reportable 09/24/18 00:33 Sickle Cells Not Reportable 09/24/18 00:33 Target Cells Not Reportable 09/24/18 00:33 Tear Drop Cells 1+ 09/24/18 00:33 Ovalocytes Not Reportable 09/24/18 00:33 Helmet Cells Not Reportable 09/24/18 00:33 Holbrook-Baldwin Bodies Not Reportable 09/24/18 00:33 [place] Rings Not Reportable 09/24/18 00:33 [place] Cells Not Reportable 09/24/18 00:33 Bite Cells Not Reportable 09/24/18 00:33 Crenated Cell Not Reportable 09/24/18 00:33 Elliptocytes 2+ 09/24/18 00:33 Acanthocytes (Spur) Not Reportable 09/24/18 00:33 Rouleaux Not Reportable 09/24/18 00:33 Hemoglobin C Crystals Not Reportable 09/24/18 00:33 Schistocytes Not Reportable 09/24/18 00:33 Malaria parasites Not Reportable 09/24/18 00:33 Carlos A Bodies Not Reportable 09/24/18 00:33 Hem Pathologist Commnt No 09/24/18 00:33 PT 15.1 Sec. (12.2-14.9) H 09/11/18 05:22 INR 1.12 (0.87-1.13) 09/11/18 05:22 Sodium 140 mmol/L (137-145) D 09/15/18 04:31 Potassium 3.9 mmol/L (3.6-5.0) 09/15/18 04:31 Chloride 112.0 mmol/L (98-107) H 09/15/18 04:31 Carbon Dioxide 13 mmol/L (22-30) L 09/15/18 04:31 Anion Gap 19 mmol/L 09/15/18 04:31 BUN 15 mg/dL (9-20) 09/15/18 04:31 Creatinine 1.3 mg/dL (0.8-1.5) 09/15/18 04:31 Estimated GFR > 60 ml/min 09/15/18 04:31 BUN/Creatinine Ratio 12 % 09/15/18 04:31 Glucose 65 mg/dL (75-100) L 09/15/18 04:31 POC Glucose 91 (70-105) 09/09/18 07:18 Lactic Acid 1.30 mmol/L (0.7-2.0) 09/05/18 03:50 Calcium 8.6 mg/dL (8.4-10.2) D 09/15/18 04:31 Iron 26 ug/dL (49-181) L 09/07/18 10:38 TIBC 212 mcg/dL (250-450) L 09/07/18 10:38 Ferritin 2762.0 ng/mL (13.0-400.0) H 09/07/18 10:38 Total Bilirubin < 0.20 mg/dL (0.1-1.2) 09/12/18 12:28 Direct Bilirubin < 0.2 mg/dL (0-0.2) 09/08/18 13:43 Indirect Bilirubin 0.0 mg/dL 09/06/18 10:40 AST 126 units/L (5-40) H 09/12/18 12:28 ALT 77 units/L (7-56) H 09/12/18 12:28 Alkaline Phosphatase 124 units/L (35-129) 09/12/18 12:28 Ammonia 51.0 umol/L (25-60) 09/12/18 12:28 Total Creatine Kinase 101 units/L (55-170) 09/04/18 21:00 Troponin T < 0.010 ng/mL (0.00-0.029) 09/10/18 12:14 Total Protein 5.7 g/dL (6.3-8.2) L 09/12/18 12:28 Albumin 2.6 g/dL (3.9-5) L 09/12/18 12:28 Albumin/Globulin Ratio 0.8 % 09/12/18 12:28 TSH 0.960 mlU/mL (0.270-4.200) 09/04/18 21:00 Urine Color Yellow (Yellow) 09/04/18 23:30 Urine Turbidity Clear (Clear) 09/04/18 23:30 Urine pH 6.0 (5.0-7.0) 09/04/18 23:30 Ur Specific Kelley 1.012 (1.003-1.030) 09/04/18 23:30 Urine Protein <15 mg/dl mg/dL (Negative) 09/04/18 23:30 Urine Glucose (UA) Neg mg/dL (Negative) 09/04/18 23:30 Urine Ketones Neg mg/dL (Negative) 09/04/18 23:30 Urine Blood Neg (Negative) 09/04/18 23:30 Urine Nitrite Neg (Negative) 09/04/18 23:30 Urine Bilirubin Neg (Negative) 09/04/18 23:30 Urine Urobilinogen < 2.0 mg/dL (<2.0) 09/04/18 23:30 Ur Leukocyte Esterase Neg (Negative) 09/04/18 23:30 Urine WBC (Auto) 1.0 /HPF (0.0-6.0) 09/04/18 23:30 Urine RBC (Auto) 2.0 /HPF (0.0-6.0) 09/04/18 23:30 Urine Bacteria (Auto) 1+ /HPF (Negative) 09/04/18 23:30 Urine Mucus Few /HPF 09/04/18 23:30 Urine Opiates Screen Presumptive negative 09/04/18 23:30 Urine Methadone Screen Presumptive negative 09/04/18 23:30 Ur Barbiturates Screen Presumptive negative 09/04/18 23:30 Ur Phencyclidine Scrn Presumptive negative 09/04/18 23:30 Ur Amphetamines Screen Presumptive negative 09/04/18 23:30 U Benzodiazepines Scrn Presumptive negative 09/04/18 23:30 Urine Cocaine Screen Presumptive negative 09/04/18 23:30 U Marijuana (THC) Screen Presumptive negative 09/04/18 23:30 Drugs of Abuse Note Disclamer 09/04/18 23:30 Plasma/Serum Alcohol < 0.01 % (0-0.07) 09/04/18 21:00 JAMEEL Screen Negative (Negative) 09/05/18 16:19 Sm (Starkey) Antibody <1.0 AI (<1.0) 09/05/18 16:19 Mitochondria M2 Ab <=20.0 U (<=20.0) 09/05/18 16:19 CMV DNA PCR log copy center specialist/mL See scanned results 09/08/18 16:50 Hepatitis A IgM Ab Non-reactive (NonReactive) 09/08/18 06:39 Hep Bs Antigen Non-reactive (Negative) 09/08/18 06:39 Hep B Core IgM Ab Non-reactive (NonReactive) 09/08/18 06:39 Hepatitis C Antibody Non-reactive (NonReactive) 09/08/18 06:39 Miscellaneous Test Flexitest 1 09/09/18 07:03 Active Medications - Current Medications Current Medications: Generic Name Dose Route Start Last Admin Trade Name Freq PRN Reason Stop Dose Admin Acetaminophen 650 mg 09/05/18 02:48 09/09/18 06:44 Tylenol PO 650 mg Q4H PRN Administration Pain MILD(1-3)/Fever >100.5/VILLAREAL Aspirin 81 mg 09/09/18 17:00 09/24/18 11:17 Baby Aspirin PO 81 mg QDAY GLEN Administration Emtricitabine 200 mg 09/20/18 14:00 09/24/18 11:17 Emtriva PO 200 mg QDAY GLEN Administration Famotidine 10 mg 09/22/18 22:00 09/24/18 11:18 Pepcid PO 10 mg BID GLEN Administration Sodium Chloride 1,000 mls @ 100 mls/hr 09/16/18 08:00 09/23/18 12:46 Nacl 0.9% 1000 Ml IV 100 mls/hr DIRECT GLEN Administration Megestrol Acetate 400 mg 09/24/18 10:00 09/24/18 11:17 Megace PO 400 mg QDAY GLEN Administration Midodrine 10 mg 09/05/18 19:00 09/24/18 08:41 Proamatine PO 10 mg TID@0800,1200,1600 GLEN Administration Nystatin 500,000 unit 09/10/18 20:00 09/24/18 08:41 Nystatin PO 500,000 unit TID GLEN Administration Ondansetron HCl 4 mg 09/05/18 02:48 09/10/18 13:06 Zofran IV 4 mg Q8H PRN Administration Nausea And Vomiting Sodium Chloride 10 ml 09/05/18 10:00 09/24/18 11:19 Sodium Chloride Flush Syringe 10 Ml IV 10 ml BID GLEN Administration Sodium Chloride 10 ml 09/05/18 02:48 Sodium Chloride Flush Syringe 10 Ml IV PRN PRN LINE FLUSH Tenofovir Disoproxil Fumarate 300 mg 09/20/18 14:00 09/24/18 11:17 Viread PO 300 mg QDAY GLEN Administration Trimethoprim/Sulfamethoxazole 1 each 09/14/18 10:00 09/24/18 11:18 Bactrim Ds PO 1 each DAILY GLEN Administration Nutrition/Malnutrition Assess - Dietary Evaluation Nutrition/Malnutrition Findings: Nutrition Notes Start: 09/06/18 15:57 Freq: Status: Active Protocol: Document 09/23/18 10:34 CP (Rec: 09/23/18 10:35 CP [id number]) Co-Sign 09/23/18 10:34 LP Nutrition Notes Initial or Follow up Reassessment Other Pertinent Diagnosis HIV/AIDS, noncompliance, oral candidiasis Current Diet Regular + Ensure Clear daily Labs/Tests Reviewed Pertinent Medications Reviewed Height 5 ft 3 in Weight 47.6 kg [place] Body Weight (kg) 56.36 BMI 18.6 Subjective/Other Information Pt hands were restrained during time of visit. Pt reported that his appetite was okay and he didn't eat due to the restraints. Percent of energy/protein needs met: 0%/0% Burn Absent Trauma Absent #1 Nutrition Diagnosis Malnutrition Diagnosis Progress(for reassessment Continues documentation) Is patient on ventilator? No Is Patient Ambulatory and/or Out of Bed No REE-([facility]-confined to bed) 1528.812 Calculation Used for Recommendations [facility] Additional Notes Pro needs 1.2-1.5g/k-69 g /day Fluid needs 1ml/kcal Nutrition Intervention Change Diet Order: Continue current or TF consult Add Supplement/Snack (indicate name/kcal Ensure Clear 1 daily /protein ) Provides kCal: 240 Provides Protein (gm) 8 Goal #1 Meet at least 75% of calorie and protein needs Anticipated Discharge Needs: Regular diet Follow-Up By: 09/27/18 Additional Comments Follow for PO and ONS intakes
[2018-09-24] MEDS: MYCAMINE 100 MG in NACL 0.9% 100 ML IV SCH (18:00)
[2018-09-25] MEDS: BABY ASPIRIN PO SCH (11:09)
[2018-09-25] MEDS: PEPCID PO SCH ×2 (11:09→22:29)
[2018-09-25] MEDS: MYCAMINE 100 MG in NACL 0.9% 100 ML IV SCH (11:09)
[2018-09-25] MEDS: EMTRIVA PO SCH (11:09)
[2018-09-25] MEDS: PROAMATINE PO SCH ×2 (11:10→14:28)
[2018-09-25] MEDS: MEGACE PO SCH (11:10)
[2018-09-25] MEDS: VIREAD PO SCH (11:10)
[2018-09-25] MEDS: BACTRIM DS PO SCH (11:10)
[2018-09-25] MEDS: NYSTATIN PO SCH ×3 (11:11→22:29)
[2018-09-25] MEDS: TIVICAY PO SCH (11:11)
--- NOTE | 2018-09-25 11:23 | Event Note ---
Date: 09/25/18 [id number]
--- NOTE | 2018-09-25 11:26 | Progress Note ---
Assessment and Plan Assessment and plan: HIV encephalopathy. CT head shows no acute intracranial abnormality. + chronic maxillary and ethmoid sinusitis. MRI images showing brain atrophy, no focal lesions to suggest toxopl asma, PML, ventriculitis, SPOT WORKER lymphoma or other space occupying lesions. Crypto Ag is negative. TTE shows no valvular vegetation, EF 30-35 %. -Fungitell: negative -CMV DNR - <200 Unfortunately, patient required restraints this morning due to agitation. Continue to monitor, educated nursing with reorientation. Chronic hypotension. 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 Cardiology with no further recommendations. Patient with grave prognosis, cardiology recommending conservative approach. Oral candidiasis. h/o resistant Carolann. improved. Continue Nystatin Severe protein calorie malnutrition. related to HIV AIDS. HIV/AIDS. Last admission in June CD4 count 11. Viral load high. Prognosis is poor. Agreed to go to SNF. HIV therapy started 09/20/18 with Truvada + Tivicay. Continue Bactrim DS daily. Transaminitis. Abdominal ultrasound unremarkable. CT abdomen showing possible enteritis and somewhat inhomogenous liver. may be due to ischemic hepatitis, HIV/AIDS hepatopathy, infectious etiology with viral hepatitis, vs drug toxicity- GI following. Stable to improving. Evaluating for disseminated MAC, fungal/mycolytic blood cultures in process. 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 TTE no valvular vegetation, EF 30-35% Bilateral pneumonia. Chest CT shows Bilateral pneumonia with findings most prominent in the left lower lobe as described. Bronchiectatic changes in left lower lobe noted also. Scattered blebs in the left lung. Fungitell negative, so PCP quite less likely. bilateral ground glass opacities could be fluid given cardiomyopathy and low EF. Pancytopenia with severe thrombocytopenia. Etiology secondary HIV/AIDS. ID recommends hematology consultation. Patient may need Neupogen. Check HIT panel Disposition. Awaiting SNF placement. Cardiology and ID recommend Hospice, but patient refuses. History Interval history: Patient is a 42 yo man with a history of HIV/AIDs and anemia who presented to [facility] ED with AMS on 09/04/18. Patient was just discharged from here on 08/04/2018 for sepsis, LLL, lingula pneumonia and severe oral candidiasis. Encephalopathy was attributed to acute metabolic encephalopathy from HIV encephalopathy/FTT/malnutrition, which has resolved. The patient has noted to have hypotension which is felt to be acute on chronic and not sepsis related. H is effective circulatory volume is low due to his malnutrition from severe HIV/AIDS. Patient also noted to have other complications related to this including pancytopenia and oral candidiasis which has been treated. No new issues overnight. Hospitalist Physical - Constitutional Vitals: Temp Pulse Resp BP Pulse Ox 98.2 F 81 18 78/48 98 09/25/18 04:54 09/25/18 09:18 09/25/18 04:54 09/25/18 04:54 09/25/18 04:54 General appearance: Present: no acute distress, well-nourished - EENT Eyes: Present: PERRL, EOM intact ENT: hearing intact, clear oral mucosa, dentition normal - Neck Neck: Present: supple, normal ROM - Respiratory Respiratory effort: normal Respiratory: bilateral: CTA - Cardiovascular Rhythm: regular Heart Sounds: Present: S1 & S2. Absent: gallop, rub - Extremities Extremities: no ischemia, No edema, Full ROM - Abdominal General gastrointestinal: soft, non-tender, non-distended, normal bowel sounds - Integumentary Integumentary: Present: clear, warm, dry - Neurologic Neurologic: CNII-XII intact, moves all extremities Results - Labs CBC & Chem 7: 09/24/18 00:33 09/15/18 04:31 Labs: Laboratory Last Values WBC 0.7 K/mm3 (4.5-11.0) L* 09/24/18 00:33 RBC 2.67 M/mm3 (3.65-5.03) L 09/24/18 00:33 Hgb 7.8 gm/dl (11.8-15.2) L 09/24/18 00:33 Hct 23.8 % (35.5-45.6) L 09/24/18 00:33 MCV 89 fl (84-94) 09/24/18 00:33 MCH 29 pg (28-32) 09/24/18 00:33 MCHC 33 % (32-34) 09/24/18 00:33 RDW 20.3 % (13.2-15.2) H 09/24/18 00:33 Plt Count 28 K/mm3 (140-440) L 09/24/18 00:33 Lymph % (Auto) 6.1 % (13.4-35.0) L 09/08/18 06:39 [place] % (Auto) Call Center Coordinator 09/24/18 00:33 Eos % (Auto) 0.0 % (0.0-4.3) 09/08/18 06:39 Baso % (Auto) 0.2 % (0.0-1.8) 09/08/18 06:39 Lymph # 0.3 K/mm3 (1.2-5.4) L 09/08/18 06:39 [place] # 0.3 K/mm3 (0.0-0.8) 09/08/18 06:39 Eos # 0.0 K/mm3 (0.0-0.4) 09/08/18 06:39 Baso # 0.0 K/mm3 (0.0-0.1) 09/08/18 06:39 Add Manual Diff Complete 09/24/18 00:33 Total Counted 50 09/24/18 00:33 Seg Neutrophils % 87.3 % (40.0-70.0) H 09/08/18 06:39 Seg Neuts % (Manual) 62.0 % (40.0-70.0) 09/24/18 00:33 Band Neutrophils % 14.0 % 09/24/18 00:33 Lymphocytes % (Manual) 14.0 % (13.4-35.0) 09/24/18 00:33 Reactive Lymphs % (Man) 0 % 09/24/18 00:33 Monocytes % (Manual) 10.0 % (0.0-7.3) H 09/24/18 00:33 Eosinophils % (Manual) 0 % (0.0-4.3) 09/24/18 00:33 Basophils % (Manual) 0 % (0.0-1.8) 09/24/18 00:33 Metamyelocytes % 0 % 09/24/18 00:33 Myelocytes % 0 % 09/24/18 00:33 Promyelocytes % 0 % 09/24/18 00:33 Blast Cells % 0 % 09/24/18 00:33 Nucleated RBC % Not Reportable 09/24/18 00:33 Seg Neutrophils # 4.5 K/mm3 (1.8-7.7) 09/08/18 06:39 Seg Neutrophils # Man 0.4 K/mm3 (1.8-7.7) L 09/24/18 00:33 Band Neutrophils # 0.1 K/mm3 09/24/18 00:33 Lymphocytes # (Manual) 0.1 K/mm3 (1.2-5.4) L 09/24/18 00:33 Abs React Lymphs (Man) 0.0 K/mm3 09/24/18 00:33 Monocytes # (Manual) 0.1 K/mm3 (0.0-0.8) 09/24/18 00:33 Eosinophils # (Manual) 0.0 K/mm3 (0.0-0.4) 09/24/18 00:33 Basophils # (Manual) 0.0 K/mm3 (0.0-0.1) 09/24/18 00:33 Metamyelocytes # 0.0 K/mm3 09/24/18 00:33 Myelocytes # 0.0 K/mm3 09/24/18 00:33 Promyelocytes # 0.0 K/mm3 09/24/18 00:33 Blast Cells # 0.0 K/mm3 09/24/18 00:33 WBC Morphology Not Reportable 09/24/18 00:33 Hypersegmented Neuts Not Reportable 09/24/18 00:33 Hyposegmented Neuts Not Reportable 09/24/18 00:33 Hypogranular Neuts Not Reportable 09/24/18 00:33 Smudge Cells Not Reportable 09/24/18 00:33 Toxic Granulation Not Reportable 09/24/18 00:33 Toxic Vacuolation Not Reportable 09/24/18 00:33 Dohle Bodies Not Reportable 09/24/18 00:33 Pelger-Huet Anomaly Not Reportable 09/24/18 00:33 Giovanni Rods Not Reportable 09/24/18 00:33 Platelet Estimate Consistent w auto 09/24/18 00:33 Clumped Platelets Not Reportable 09/24/18 00:33 Plt Clumps, EDTA Not Reportable 09/24/18 00:33 Large Platelets Not Reportable 09/24/18 00:33 Giant Platelets Not Reportable 09/24/18 00:33 Platelet Satelliting Not Reportable 09/24/18 00:33 Plt Morphology Comment Not Reportable 09/24/18 00:33 RBC Morphology Not Reportable 09/24/18 00:33 Dimorphic RBCs Not Reportable 09/24/18 00:33 Polychromasia Not Reportable 09/24/18 00:33 Hypochromasia Not Reportable 09/24/18 00:33 Poikilocytosis 2+ 09/24/18 00:33 Anisocytosis 2+ 09/24/18 00:33 Microcytosis Not Reportable 09/24/18 00:33 Macrocytosis Not Reportable 09/24/18 00:33 Spherocytes Not Reportable 09/24/18 00:33 Pappenheimer Bodies Not Reportable 09/24/18 00:33 Sickle Cells Not Reportable 09/24/18 00:33 Target Cells Not Reportable 09/24/18 00:33 Tear Drop Cells 1+ 09/24/18 00:33 Ovalocytes Not Reportable 09/24/18 00:33 Helmet Cells Not Reportable 09/24/18 00:33 [place] Bodies Not Reportable 09/24/18 00:33 [place] Rings Not Reportable 09/24/18 00:33 [place] Cells Not Reportable 09/24/18 00:33 Bite Cells Not Reportable 09/24/18 00:33 Crenated Cell Not Reportable 09/24/18 00:33 Elliptocytes 2+ 09/24/18 00:33 Acanthocytes (Spur) Not Reportable 09/24/18 00:33 Rouleaux Not Reportable 09/24/18 00:33 Hemoglobin C Crystals Not Reportable 09/24/18 00:33 Schistocytes Not Reportable 09/24/18 00:33 Malaria parasites Not Reportable 09/24/18 00:33 Carlos A Bodies Not Reportable 09/24/18 00:33 Hem Pathologist Commnt No 09/24/18 00:33 PT 15.1 Sec. (12.2-14.9) H 09/11/18 05:22 INR 1.12 (0.87-1.13) 09/11/18 05:22 Sodium 140 mmol/L (137-145) D 09/15/18 04:31 Potassium 3.9 mmol/L (3.6-5.0) 09/15/18 04:31 Chloride 112.0 mmol/L (98-107) H 09/15/18 04:31 Carbon Dioxide 13 mmol/L (22-30) L 09/15/18 04:31 Anion Gap 19 mmol/L 09/15/18 04:31 BUN 15 mg/dL (9-20) 09/15/18 04:31 Creatinine 1.3 mg/dL (0.8-1.5) 09/15/18 04:31 Estimated GFR > 60 ml/min 09/15/18 04:31 BUN/Creatinine Ratio 12 % 09/15/18 04:31 Glucose 65 mg/dL (75-100) L 09/15/18 04:31 POC Glucose 91 (70-105) 09/09/18 07:18 Lactic Acid 1.30 mmol/L (0.7-2.0) 09/05/18 03:50 Calcium 8.6 mg/dL (8.4-10.2) D 09/15/18 04:31 Iron 26 ug/dL (49-181) L 09/07/18 10:38 TIBC 212 mcg/dL (250-450) L 09/07/18 10:38 Ferritin 2762.0 ng/mL (13.0-400.0) H 09/07/18 10:38 Total Bilirubin < 0.20 mg/dL (0.1-1.2) 09/12/18 12:28 Direct Bilirubin < 0.2 mg/dL (0-0.2) 09/08/18 13:43 Indirect Bilirubin 0.0 mg/dL 09/06/18 10:40 AST 126 units/L (5-40) H 09/12/18 12:28 ALT 77 units/L (7-56) H 09/12/18 12:28 Alkaline Phosphatase 124 units/L (35-129) 09/12/18 12:28 Ammonia 51.0 umol/L (25-60) 09/12/18 12:28 Total Creatine Kinase 101 units/L (55-170) 09/04/18 21:00 Troponin T < 0.010 ng/mL (0.00-0.029) 09/10/18 12:14 Total Protein 5.7 g/dL (6.3-8.2) L 09/12/18 12:28 Albumin 2.6 g/dL (3.9-5) L 09/12/18 12:28 Albumin/Globulin Ratio 0.8 % 09/12/18 12:28 TSH 0.960 mlU/mL (0.270-4.200) 09/04/18 21:00 Urine Color Yellow (Yellow) 09/04/18 23:30 Urine Turbidity Clear (Clear) 09/04/18 23:30 Urine pH 6.0 (5.0-7.0) 09/04/18 23:30 Ur Specific [place] 1.012 (1.003-1.030) 09/04/18 23:30 Urine Protein <15 mg/dl mg/dL (Negative) 09/04/18 23:30 Urine Glucose (UA) Neg mg/dL (Negative) 09/04/18 23:30 Urine Ketones Neg mg/dL (Negative) 09/04/18 23:30 Urine Blood Neg (Negative) 09/04/18 23:30 Urine Nitrite Neg (Negative) 09/04/18 23:30 Urine Bilirubin Neg (Negative) 09/04/18 23:30 Urine Urobilinogen < 2.0 mg/dL (<2.0) 09/04/18 23:30 Ur Leukocyte Esterase Neg (Negative) 09/04/18 23:30 Urine WBC (Auto) 1.0 /HPF (0.0-6.0) 09/04/18 23:30 Urine RBC (Auto) 2.0 /HPF (0.0-6.0) 09/04/18 23:30 Urine Bacteria (Auto) 1+ /HPF (Negative) 09/04/18 23:30 Urine Mucus Few /HPF 09/04/18 23:30 Urine Opiates Screen Presumptive negative 09/04/18 23:30 Urine Methadone Screen Presumptive negative 09/04/18 23:30 Ur Barbiturates Screen Presumptive negative 09/04/18 23:30 Ur Phencyclidine Scrn Presumptive negative 09/04/18 23:30 Ur Amphetamines Screen Presumptive negative 09/04/18 23:30 U Benzodiazepines Scrn Presumptive negative 09/04/18 23:30 Urine Cocaine Screen Presumptive negative 09/04/18 23:30 U Marijuana (THC) Screen Presumptive negative 09/04/18 23:30 Drugs of Abuse Note Disclamer 09/04/18 23:30 Plasma/Serum Alcohol < 0.01 % (0-0.07) 09/04/18 21:00 JAMEEL Screen Negative (Negative) 09/05/18 16:19 Sm ([place]) Antibody <1.0 AI (<1.0) 09/05/18 16:19 Mitochondria M2 Ab <=20.0 U (<=20.0) 09/05/18 16:19 CMV DNA PCR log endoscopy support specialist/mL See scanned results 09/08/18 16:50 Hepatitis A IgM Ab Non-reactive (NonReactive) 09/08/18 06:39 Hep Bs Antigen Non-reactive (Negative) 09/08/18 06:39 Hep B Core IgM Ab Non-reactive (NonReactive) 09/08/18 06:39 Hepatitis C Antibody Non-reactive (NonReactive) 09/08/18 06:39 Miscellaneous Test Flexitest 1 09/09/18 07:03 Active Medications - Current Medications Current Medications: Generic Name Dose Route Start Last Admin Trade Name Freq PRN Reason Stop Dose Admin Acetaminophen 650 mg 09/05/18 02:48 09/09/18 06:44 Tylenol PO 650 mg Q4H PRN Administration Pain MILD(1-3)/Fever >100.5/VILLAREAL Aspirin 81 mg 09/09/18 17:00 09/25/18 11:09 Baby Aspirin PO 81 mg QDAY GLEN Administration Emtricitabine 200 mg 09/20/18 14:00 09/25/18 11:09 Emtriva PO 200 mg QDAY GLEN Administration Famotidine 10 mg 09/22/18 22:00 09/25/18 11:09 Pepcid PO 10 mg BID GLEN Administration Sodium Chloride 1,000 mls @ 100 mls/hr 09/16/18 08:00 09/23/18 12:46 Nacl 0.9% 1000 Ml IV 100 mls/hr DIRECT GLEN Administration Micafungin Sodium 100 mg/ 100 mls @ 100 mls/hr 09/24/18 14:00 09/25/18 11:09 Sodium Chloride IV 100 mls/hr QDAY GLEN Administration Protocol Megestrol Acetate 400 mg 09/24/18 10:00 09/25/18 11:10 Megace PO 400 mg QDAY GLEN Administration Midodrine 10 mg 09/05/18 19:00 09/25/18 11:10 Proamatine PO 10 mg TID@0800,1200,1600 GLEN Administration Nystatin 500,000 unit 09/10/18 20:00 09/25/18 11:11 Nystatin PO 500,000 unit TID GLEN Administration Ondansetron HCl 4 mg 09/05/18 02:48 09/10/18 13:06 Zofran IV 4 mg Q8H PRN Administration Nausea And Vomiting Sodium Chloride 10 ml 09/05/18 10:00 09/24/18 22:26 Sodium Chloride Flush Syringe 10 Ml IV 10 ml BID GLEN Administration Sodium Chloride 10 ml 09/05/18 02:48 Sodium Chloride Flush Syringe 10 Ml IV PRN PRN LINE FLUSH Tenofovir Disoproxil Fumarate 300 mg 09/20/18 14:00 09/25/18 11:10 Viread PO 300 mg QDAY GLEN Administration Trimethoprim/Sulfamethoxazole 1 each 09/14/18 10:00 09/25/18 11:10 Bactrim Ds PO 1 each DAILY GLEN Administration Nutrition/Malnutrition Assess - Dietary Evaluation Nutrition/Malnutrition Findings: Nutrition Notes Start: 09/06/18 15:57 Freq: Status: Active Protocol: Document 09/23/18 10:34 CP (Rec: 09/23/18 10:35 CP [id number]) Co-Sign 09/23/18 10:34 LP Nutrition Notes Initial or Follow up Reassessment Other Pertinent Diagnosis HIV/AIDS, noncompliance, oral candidiasis Current Diet Regular + Ensure Clear daily Labs/Tests Reviewed Pertinent Medications Reviewed Height 5 ft 3 in Weight 47.6 kg [place] Body Weight (kg) 56.36 BMI 18.6 Subjective/Other Information Pt hands were restrained during time of visit. Pt reported that his appetite was okay and he didn't eat due to the restraints. Percent of energy/protein needs met: 0%/0% Burn Absent Trauma Absent #1 Nutrition Diagnosis Malnutrition Diagnosis Progress(for reassessment Continues documentation) Is patient on ventilator? No Is Patient Ambulatory and/or Out of Bed No REE-([place]-St. Jeor-confined to bed) [phone] Calculation Used for [facility]ations [facility] Additional Notes Pro needs 1.2-1.5g/k-69 g /day Fluid needs 1ml/kcal Nutrition Intervention Change Diet Order: Continue current or TF consult Add Supplement/Snack (indicate name/kcal Ensure Clear 1 daily /protein ) Provides kCal: 240 Provides Protein (gm) 8 Goal #1 Meet at least 75% of calorie and protein needs Anticipated Discharge Needs: Regular diet Follow-Up By: 09/27/18 Additional Comments Follow for PO and ONS intakes
[2018-09-25] MEDS: SODIUM CHLORIDE FLUSH SYRINGE 10 ML IV SCH ×2 (11:27→22:29)
--- NOTE | 2018-09-25 13:38 | Progress Note ---
Assessment and Plan .Patient awake and weak, resting at this time on room air. No acute respiratory distress. O2 saturation 89%.Recommend O2 2 litres via nasal canula. Patient aferbile and has leukopenia. - Patient Problems (1) Pneumonia Current Visit: Yes Status: Acute Qualifiers: Pneumonia type: due to unspecified organism Laterality: left Lung location: lower lobe of lung Qualified Code(s): J18.1 - Lobar pneumonia, unspecified organism Plan to address problem: Patient is on bactium. (2) AIDS Current Visit: Yes Status: Chronic Plan to address problem: Management as per infectious diseases. (3) Altered mental status Current Visit: Yes Status: Acute Plan to address problem: Management as per primary care and neurology. (4) Oral candidiasis Current Visit: Yes Status: Acute Plan to address problem: Patient getting nystatin. Subjective Date of service: 09/25/18 Principal diagnosis: severe sepsis, hypotension, acute encephaloapthy, HIV-AIDS Interval history: Patient awake and weak, resting at this time on room air. No acute respiratory distress. O2 saturation 89%.Recommend O2 2 litres via nasal canula. Patient aferbile and has leukopenia. Objective Vital Signs - 12hr 09/25/18 09/25/18 04:54 09:18 Temperature 98.2 F Pulse Rate 79 81 Respiratory 18 Rate Blood Pressure 78/48 O2 Sat by Pulse 98 Oximetry Constitutional: no acute distress, alert, other (Weak) Eyes: non-icteric ENT: oropharynx moist, oropharyngeal exudate pre, other (mallampati 2) Neck: supple, no lymphadenopathy, no JVD, other Ascultation: Bilateral: diminished breath sounds, other (Prolonged expiratory phase.) Cardiovascular: regular rate and rhythm Gastrointestinal: normoactive bowel sounds, soft, non-tender, non-distended Integumentary: normal Extremities: no cyanosis, no edema, pulses normal, no ischemia or petechiae Neurologic: non-focal exam (grossly), pupils equal and round, other (weak; mild cognitive dysfunction) Psychiatric: other (affect flat) CBC and BMP: 09/24/18 00:33 09/15/18 04:31 ABG, PT/INR, D-dimer: PT/INR, D-dimer PT 15.1 Sec. (12.2-14.9) H 09/11/18 05:22 INR 1.12 (0.87-1.13) 09/11/18 05:22 Abnormal lab findings: Abnormal Labs 09/04/18 09/04/18 09/04/18 21:00 21:00 22:32 WBC RBC 3.23 L Hgb 9.6 L Hct 28.9 L RDW 18.8 H Plt Count Lymph % (Auto) [place] % (Auto) 12.5 H Lymph # 0.7 L Seg Neutrophils % 72.4 H Seg Neuts % (Manual) Lymphocytes % (Manual) Monocytes % (Manual) Nucleated RBC % Seg Neutrophils # Man Lymphocytes # (Manual) PT Sodium Potassium Chloride 109.9 H Carbon Dioxide 21 L BUN 31 H Creatinine Glucose Lactic Acid 2.40 H* Calcium 8.2 L Iron TIBC Ferritin AST 200 H ALT 136 H Alkaline Phosphatase 138 H Ammonia Total Protein Albumin 3.5 L 09/04/18 09/05/18 09/05/18 22:32 16:19 16:19 WBC RBC Hgb Hct RDW Plt Count Lymph % (Auto) [place] % (Auto) Lymph # Seg Neutrophils % Seg Neuts % (Manual) Lymphocytes % (Manual) Monocytes % (Manual) Nucleated RBC % Seg Neutrophils # Man Lymphocytes # (Manual) PT Sodium Potassium Chloride 112.4 H Carbon Dioxide 19 L BUN Creatinine Glucose Lactic Acid Calcium 8.1 L Iron TIBC 223 L Ferritin AST 241 H ALT 138 H Alkaline Phosphatase Ammonia 64.0 H Total Protein Albumin 3.1 L 09/05/18 09/06/18 09/06/18 16:19 10:40 10:40 WBC 2.4 L RBC 2.67 L Hgb 7.7 L Hct 23.7 L RDW 18.7 H Plt Count 135 L Lymph % (Auto) 10.0 L [place] % (Auto) 8.4 H Lymph # 0.2 L Seg Neutrophils % 81.1 H Seg Neuts % (Manual) Lymphocytes % (Manual) Monocytes % (Manual) Nucleated RBC % Seg Neutrophils # Man Lymphocytes # (Manual) PT Sodium Potassium Chloride 112.1 H Carbon Dioxide 19 L BUN Creatinine 0.7 L Glucose Lactic Acid Calcium 7.8 L Iron TIBC Ferritin 2880.0 H AST 263 H ALT 143 H Alkaline Phosphatase Ammonia Total Protein 6.1 L Albumin 2.8 L 09/07/18 09/07/18 09/08/18 10:38 10:38 06:39 WBC RBC 2.86 L Hgb 8.3 L Hct 25.2 L RDW 18.3 H Plt Count 123 L Lymph % (Auto) 6.1 L [place] % (Auto) Lymph # 0.3 L Seg Neutrophils % 87.3 H Seg Neuts % (Manual) Lymphocytes % (Manual) Monocytes % (Manual) Nucleated RBC % Seg Neutrophils # Man Lymphocytes # (Manual) PT Sodium Potassium Chloride Carbon Dioxide BUN Creatinine Glucose Lactic Acid Calcium Iron 26 L TIBC 212 L Ferritin 2762.0 H AST ALT Alkaline Phosphatase Ammonia Total Protein Albumin 09/08/18 09/08/18 09/09/18 06:39 13:43 07:03 WBC RBC Hgb Hct RDW Plt Count Lymph % (Auto) [place] % (Auto) Lymph # Seg Neutrophils % Seg Neuts % (Manual) Lymphocytes % (Manual) Monocytes % (Manual) Nucleated RBC % Seg Neutrophils # Man Lymphocytes # (Manual) PT Sodium Potassium 3.2 L 3.5 L Chloride 111.9 H 108.6 H Carbon Dioxide 13 L 15 L BUN 6 L 4 L Creatinine Glucose 118 H Lactic Acid Calcium 7.5 L 7.5 L Iron TIBC Ferritin AST 117 H 130 H ALT 87 H 86 H Alkaline Phosphatase Ammonia Total Protein 5.6 L 6.0 L Albumin 2.6 L 2.6 L 09/09/18 09/10/18 09/10/18 07:31 04:26 04:26 WBC 3.5 L 2.1 L RBC 2.82 L 3.10 L Hgb 8.2 L 9.0 L Hct 24.6 L 27.1 L RDW 18.8 H 18.6 H Plt Count 136 L 139 L Lymph % (Auto) [place] % (Auto) Lymph # Seg Neutrophils % Seg Neuts % (Manual) 77.0 H Lymphocytes % (Manual) 11.0 L Monocytes % (Manual) 11.0 H Nucleated RBC % Seg Neutrophils # Man 1.6 L Lymphocytes # (Manual) 0.2 L PT Sodium Potassium Chloride 112.7 H Carbon Dioxide 14 L BUN 5 L Creatinine Glucose 109 H Lactic Acid Calcium 7.7 L Iron TIBC Ferritin AST 110 H ALT 76 H Alkaline Phosphatase Ammonia Total Protein 6.0 L Albumin 2.8 L 09/11/18 09/12/18 09/13/18 05:22 12:28 07:23 WBC 1.1 L* RBC 2.82 L Hgb 8.2 L Hct 25.5 L RDW 19.5 H Plt Count 103 L Lymph % (Auto) [place] % (Auto) Lymph # Seg Neutrophils % Seg Neuts % (Manual) Lymphocytes % (Manual) Monocytes % (Manual) 18.0 H Nucleated RBC % Seg Neutrophils # Man 0.6 L Lymphocytes # (Manual) 0.3 L PT 15.1 H Sodium 133 L Potassium 3.5 L Chloride 108.8 H Carbon Dioxide 14 L BUN 6 L Creatinine Glucose 123 H Lactic Acid Calcium 7.4 L Iron TIBC Ferritin AST 126 H ALT 77 H Alkaline Phosphatase Ammonia Total Protein 5.7 L Albumin 2.6 L 09/15/18 09/15/18 09/17/18 00:51 04:31 10:52 WBC 1.2 L* 1.2 L* RBC 3.38 L 3.03 L Hgb 9.7 L 8.9 L Hct 29.5 L 27.2 L RDW 19.0 H 19.5 H Plt Count 95 L 59 L Lymph % (Auto) [place] % (Auto) Lymph # Seg Neutrophils % Seg Neuts % (Manual) Lymphocytes % (Manual) Monocytes % (Manual) 24.0 H 14.0 H Nucleated RBC % 2.0 H Seg Neutrophils # Man 0.6 L 0.8 L Lymphocytes # (Manual) 0.3 L 0.2 L PT Sodium Potassium Chloride 112.0 H Carbon Dioxide 13 L BUN Creatinine Glucose 65 L Lactic Acid Calcium Iron TIBC Ferritin AST ALT Alkaline Phosphatase Ammonia Total Protein Albumin 09/21/18 09/24/18 15:26 00:33 WBC 1.6 L* 0.7 L* RBC 2.94 L 2.67 L Hgb 8.8 L 7.8 L Hct 26.3 L 23.8 L RDW 20.0 H 20.3 H Plt Count 26 L 28 L Lymph % (Auto) [place] % (Auto) Lymph # Seg Neutrophils % Seg Neuts % (Manual) Lymphocytes % (Manual) Monocytes % (Manual) 12.0 H 10.0 H Nucleated RBC % Seg Neutrophils # Man 1.0 L 0.4 L Lymphocytes # (Manual) 0.4 L 0.1 L PT Sodium Potassium Chloride Carbon Dioxide BUN Creatinine Glucose Lactic Acid Calcium Iron TIBC Ferritin AST ALT Alkaline Phosphatase Ammonia Total Protein Albumin Allied health notes reviewed: nursing
[2018-09-26] MEDS: NYSTATIN PO SCH ×3 (08:08→23:25)
[2018-09-26] MEDS: PROAMATINE PO SCH ×4 (08:09→18:33)
--- NOTE | 2018-09-26 09:24 | Progress Note ---
Assessment and Plan Assessment and plan: HIV encephalopathy. CT head shows no acute intracranial abnormality. + chronic maxillary and ethmoid sinusitis. MRI images showing brain atrophy, no focal lesions to suggest toxopl asma, PML, ventriculitis, STATE ASSESSED PROPERTIES DIRECTOR lymphoma or other space occupying lesions. Crypto Ag is negative. TTE shows no valvular vegetation, EF 30-35 %. -Fungitell: negative -CMV DNR - <200 Unfortunately, patient required restraints this morning due to agitation. Continue to monitor, educated nursing with reorientation. Chronic hypotension. 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 Cardiology with no further recommendations. Patient with grave prognosis, cardiology recommending conservative approach. Oral candidiasis. h/o resistant Carolann. improved. Continue Nystatin Severe protein calorie malnutrition. related to HIV AIDS. HIV/AIDS. Last admission in June CD4 count 11. Viral load high. Prognosis is poor. Agreed to go to SNF. HIV therapy started 09/20/18 with Truvada + Tivicay. Continue Bactrim DS daily. Transaminitis. Abdominal ultrasound unremarkable. CT abdomen showing possible enteritis and somewhat inhomogenous liver. may be due to ischemic hepatitis, HIV/AIDS hepatopathy, infectious etiology with viral hepatitis, vs drug toxicity- GI following. Stable to improving. Evaluating for disseminated MAC, fungal/mycolytic blood cultures in process. 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 TTE no valvular vegetation, EF 30-35% Bilateral pneumonia. Chest CT shows Bilateral pneumonia with findings most prominent in the left lower lobe as described. Bronchiectatic changes in left lower lobe noted also. Scattered blebs in the left lung. Fungitell negative, so PCP quite less likely. bilateral ground glass opacities could be fluid given cardiomyopathy and low EF. Pancytopenia with severe thrombocytopenia. Etiology secondary HIV/AIDS. ID recommends hematology consultation. Patient may need Neupogen. Check HIT panel Disposition. Awaiting SNF placement. Cardiology and ID recommend Hospice, but patient refuses. History Interval history: Patient is a 42 yo man with a history of HIV/AIDs and anemia who presented to [facility] ED with AMS on 09/04/18. Patient was just discharged from here on 08/04/2018 for sepsis, LLL, lingula pneumonia and severe oral candidiasis. Encephalopathy was attributed to acute metabolic encephalopathy from HIV encephalopathy/FTT/malnutrition, which has resolved. The patient has noted to have hypotension which is felt to be acute on chronic and not sepsis related. H is effective circulatory volume is low due to his malnutrition from severe HIV/AIDS. Patient also noted to have other complications related to this including pancytopenia and oral candidiasis which has been treated. No new issues overnight. Hospitalist Physical - Constitutional Vitals: Temp Pulse Resp BP Pulse Ox 98.5 F 72 16 85/52 99 09/26/18 09:14 09/26/18 09:13 09/26/18 09:13 09/26/18 09:13 09/26/18 09:13 General appearance: Present: no acute distress, well-nourished - EENT Eyes: Present: PERRL, EOM intact ENT: hearing intact, clear oral mucosa, dentition normal - Neck Neck: Present: supple, normal ROM - Respiratory Respiratory effort: normal Respiratory: bilateral: CTA - Cardiovascular Rhythm: regular Heart Sounds: Present: S1 & S2. Absent: gallop, rub - Extremities Extremities: no ischemia, No edema, Full ROM - Abdominal General gastrointestinal: soft, non-tender, non-distended, normal bowel sounds - Integumentary Integumentary: Present: clear, warm, dry - Neurologic Neurologic: CNII-XII intact, moves all extremities Results - Labs CBC & Chem 7: 09/24/18 00:33 09/15/18 04:31 Labs: Laboratory Last Values WBC 0.7 K/mm3 (4.5-11.0) L* 09/24/18 00:33 RBC 2.67 M/mm3 (3.65-5.03) L 09/24/18 00:33 Hgb 7.8 gm/dl (11.8-15.2) L 09/24/18 00:33 Hct 23.8 % (35.5-45.6) L 09/24/18 00:33 MCV 89 fl (84-94) 09/24/18 00:33 MCH 29 pg (28-32) 09/24/18 00:33 MCHC 33 % (32-34) 09/24/18 00:33 RDW 20.3 % (13.2-15.2) H 09/24/18 00:33 Plt Count 28 K/mm3 (140-440) L 09/24/18 00:33 Lymph % (Auto) 6.1 % (13.4-35.0) L 09/08/18 06:39 Travis % (Auto) Blasting [employer] Miner 09/24/18 00:33 Eos % (Auto) 0.0 % (0.0-4.3) 09/08/18 06:39 Baso % (Auto) 0.2 % (0.0-1.8) 09/08/18 06:39 Lymph # 0.3 K/mm3 (1.2-5.4) L 09/08/18 06:39 Travis # 0.3 K/mm3 (0.0-0.8) 09/08/18 06:39 Eos # 0.0 K/mm3 (0.0-0.4) 09/08/18 06:39 Baso # 0.0 K/mm3 (0.0-0.1) 09/08/18 06:39 Add Manual Diff Complete 09/24/18 00:33 Total Counted 50 09/24/18 00:33 Seg Neutrophils % 87.3 % (40.0-70.0) H 09/08/18 06:39 Seg Neuts % (Manual) 62.0 % (40.0-70.0) 09/24/18 00:33 Band Neutrophils % 14.0 % 09/24/18 00:33 Lymphocytes % (Manual) 14.0 % (13.4-35.0) 09/24/18 00:33 Reactive Lymphs % (Man) 0 % 09/24/18 00:33 Monocytes % (Manual) 10.0 % (0.0-7.3) H 09/24/18 00:33 Eosinophils % (Manual) 0 % (0.0-4.3) 09/24/18 00:33 Basophils % (Manual) 0 % (0.0-1.8) 09/24/18 00:33 Metamyelocytes % 0 % 09/24/18 00:33 Myelocytes % 0 % 09/24/18 00:33 Promyelocytes % 0 % 09/24/18 00:33 Blast Cells % 0 % 09/24/18 00:33 Nucleated RBC % Not Reportable 09/24/18 00:33 Seg Neutrophils # 4.5 K/mm3 (1.8-7.7) 09/08/18 06:39 Seg Neutrophils # Man 0.4 K/mm3 (1.8-7.7) L 09/24/18 00:33 Band Neutrophils # 0.1 K/mm3 09/24/18 00:33 Lymphocytes # (Manual) 0.1 K/mm3 (1.2-5.4) L 09/24/18 00:33 Abs React Lymphs (Man) 0.0 K/mm3 09/24/18 00:33 Monocytes # (Manual) 0.1 K/mm3 (0.0-0.8) 09/24/18 00:33 Eosinophils # (Manual) 0.0 K/mm3 (0.0-0.4) 09/24/18 00:33 Basophils # (Manual) 0.0 K/mm3 (0.0-0.1) 09/24/18 00:33 Metamyelocytes # 0.0 K/mm3 09/24/18 00:33 Myelocytes # 0.0 K/mm3 09/24/18 00:33 Promyelocytes # 0.0 K/mm3 09/24/18 00:33 Blast Cells # 0.0 K/mm3 09/24/18 00:33 WBC Morphology Not Reportable 09/24/18 00:33 Hypersegmented Neuts Not Reportable 09/24/18 00:33 Hyposegmented Neuts Not Reportable 09/24/18 00:33 Hypogranular Neuts Not Reportable 09/24/18 00:33 Smudge Cells Not Reportable 09/24/18 00:33 Toxic Granulation Not Reportable 09/24/18 00:33 Toxic Vacuolation Not Reportable 09/24/18 00:33 Dohle Bodies Not Reportable 09/24/18 00:33 Pelger-Huet Anomaly Not Reportable 09/24/18 00:33 Giovanni Rods Not Reportable 09/24/18 00:33 Platelet Estimate Consistent w auto 09/24/18 00:33 Clumped Platelets Not Reportable 09/24/18 00:33 Plt Clumps, EDTA Not Reportable 09/24/18 00:33 Large Platelets Not Reportable 09/24/18 00:33 Giant Platelets Not Reportable 09/24/18 00:33 Platelet Satelliting Not Reportable 09/24/18 00:33 Plt Morphology Comment Not Reportable 09/24/18 00:33 RBC Morphology Not Reportable 09/24/18 00:33 Dimorphic RBCs Not Reportable 09/24/18 00:33 Polychromasia Not Reportable 09/24/18 00:33 Hypochromasia Not Reportable 09/24/18 00:33 Poikilocytosis 2+ 09/24/18 00:33 Anisocytosis 2+ 09/24/18 00:33 Microcytosis Not Reportable 09/24/18 00:33 Macrocytosis Not Reportable 09/24/18 00:33 Spherocytes Not Reportable 09/24/18 00:33 Pappenheimer Bodies Not Reportable 09/24/18 00:33 Sickle Cells Not Reportable 09/24/18 00:33 Target Cells Not Reportable 09/24/18 00:33 Tear Drop Cells 1+ 09/24/18 00:33 Ovalocytes Not Reportable 09/24/18 00:33 Helmet Cells Not Reportable 09/24/18 00:33 Holbrook-Barronett Bodies Not Reportable 09/24/18 00:33 [place] Rings Not Reportable 09/24/18 00:33 [place] Cells Not Reportable 09/24/18 00:33 Bite Cells Not Reportable 09/24/18 00:33 Crenated Cell Not Reportable 09/24/18 00:33 Elliptocytes 2+ 09/24/18 00:33 Acanthocytes (Spur) Not Reportable 09/24/18 00:33 Rouleaux Not Reportable 09/24/18 00:33 Hemoglobin C Crystals Not Reportable 09/24/18 00:33 Schistocytes Not Reportable 09/24/18 00:33 Malaria parasites Not Reportable 09/24/18 00:33 Carlos A Bodies Not Reportable 09/24/18 00:33 Hem Pathologist Commnt No 09/24/18 00:33 PT 15.1 Sec. (12.2-14.9) H 09/11/18 05:22 INR 1.12 (0.87-1.13) 09/11/18 05:22 Sodium 140 mmol/L (137-145) D 09/15/18 04:31 Potassium 3.9 mmol/L (3.6-5.0) 09/15/18 04:31 Chloride 112.0 mmol/L (98-107) H 09/15/18 04:31 Carbon Dioxide 13 mmol/L (22-30) L 09/15/18 04:31 Anion Gap 19 mmol/L 09/15/18 04:31 BUN 15 mg/dL (9-20) 09/15/18 04:31 Creatinine 1.3 mg/dL (0.8-1.5) 09/15/18 04:31 Estimated GFR > 60 ml/min 09/15/18 04:31 BUN/Creatinine Ratio 12 % 09/15/18 04:31 Glucose 65 mg/dL (75-100) L 09/15/18 04:31 POC Glucose 91 (70-105) 09/09/18 07:18 Lactic Acid 1.30 mmol/L (0.7-2.0) 09/05/18 03:50 Calcium 8.6 mg/dL (8.4-10.2) D 09/15/18 04:31 Iron 26 ug/dL (49-181) L 09/07/18 10:38 TIBC 212 mcg/dL (250-450) L 09/07/18 10:38 Ferritin 2762.0 ng/mL (13.0-400.0) H 09/07/18 10:38 Total Bilirubin < 0.20 mg/dL (0.1-1.2) 09/12/18 12:28 Direct Bilirubin < 0.2 mg/dL (0-0.2) 09/08/18 13:43 Indirect Bilirubin 0.0 mg/dL 09/06/18 10:40 AST 126 units/L (5-40) H 09/12/18 12:28 ALT 77 units/L (7-56) H 09/12/18 12:28 Alkaline Phosphatase 124 units/L (35-129) 09/12/18 12:28 Ammonia 51.0 umol/L (25-60) 09/12/18 12:28 Total Creatine Kinase 101 units/L (55-170) 09/04/18 21:00 Troponin T < 0.010 ng/mL (0.00-0.029) 09/10/18 12:14 Total Protein 5.7 g/dL (6.3-8.2) L 09/12/18 12:28 Albumin 2.6 g/dL (3.9-5) L 09/12/18 12:28 Albumin/Globulin Ratio 0.8 % 09/12/18 12:28 TSH 0.960 mlU/mL (0.270-4.200) 09/04/18 21:00 Urine Color Yellow (Yellow) 09/04/18 23:30 Urine Turbidity Clear (Clear) 09/04/18 23:30 Urine pH 6.0 (5.0-7.0) 09/04/18 23:30 Ur Specific [place] 1.012 (1.003-1.030) 09/04/18 23:30 Urine Protein <15 mg/dl mg/dL (Negative) 09/04/18 23:30 Urine Glucose (UA) Neg mg/dL (Negative) 09/04/18 23:30 Urine Ketones Neg mg/dL (Negative) 09/04/18 23:30 Urine Blood Neg (Negative) 09/04/18 23:30 Urine Nitrite Neg (Negative) 09/04/18 23:30 Urine Bilirubin Neg (Negative) 09/04/18 23:30 Urine Urobilinogen < 2.0 mg/dL (<2.0) 09/04/18 23:30 Ur Leukocyte Esterase Neg (Negative) 09/04/18 23:30 Urine WBC (Auto) 1.0 /HPF (0.0-6.0) 09/04/18 23:30 Urine RBC (Auto) 2.0 /HPF (0.0-6.0) 09/04/18 23:30 Urine Bacteria (Auto) 1+ /HPF (Negative) 09/04/18 23:30 Urine Mucus Few /HPF 09/04/18 23:30 Urine Opiates Screen Presumptive negative 09/04/18 23:30 Urine Methadone Screen Presumptive negative 09/04/18 23:30 Ur Barbiturates Screen Presumptive negative 09/04/18 23:30 Ur Phencyclidine Scrn Presumptive negative 09/04/18 23:30 Ur Amphetamines Screen Presumptive negative 09/04/18 23:30 U Benzodiazepines Scrn Presumptive negative 09/04/18 23:30 Urine Cocaine Screen Presumptive negative 09/04/18 23:30 U Marijuana (THC) Screen Presumptive negative 09/04/18 23:30 Drugs of Abuse Note Disclamer 09/04/18 23:30 Plasma/Serum Alcohol < 0.01 % (0-0.07) 09/04/18 21:00 JAMEEL Screen Negative (Negative) 09/05/18 16:19 Sm (Starkey) Antibody <1.0 AI (<1.0) 09/05/18 16:19 Mitochondria M2 Ab <=20.0 U (<=20.0) 09/05/18 16:19 CMV DNA PCR log helicopter technician/mL See scanned results 09/08/18 16:50 Hepatitis A IgM Ab Non-reactive (NonReactive) 09/08/18 06:39 Hep Bs Antigen Non-reactive (Negative) 09/08/18 06:39 Hep B Core IgM Ab Non-reactive (NonReactive) 09/08/18 06:39 Hepatitis C Antibody Non-reactive (NonReactive) 09/08/18 06:39 Miscellaneous Test Flexitest 1 09/09/18 07:03 Active Medications - Current Medications Current Medications: Generic Name Dose Route Start Last Admin Trade Name Freq PRN Reason Stop Dose Admin Acetaminophen 650 mg 09/05/18 02:48 09/09/18 06:44 Tylenol PO 650 mg Q4H PRN Administration Pain MILD(1-3)/Fever >100.5/VILLAREAL Emtricitabine 200 mg 09/20/18 14:00 09/25/18 11:09 Emtriva PO 200 mg QDAY GLEN Administration Famotidine 10 mg 09/22/18 22:00 09/25/18 22:29 Pepcid PO 10 mg BID GLEN Administration Sodium Chloride 1,000 mls @ 100 mls/hr 09/16/18 08:00 09/23/18 12:46 Nacl 0.9% 1000 Ml IV 100 mls/hr DIRECT GLEN Administration Micafungin Sodium 100 mg/ 100 mls @ 100 mls/hr 09/24/18 14:00 09/25/18 11:09 Sodium Chloride IV 100 mls/hr QDAY GLEN Administration Protocol Megestrol Acetate 400 mg 09/24/18 10:00 09/25/18 11:10 Megace PO 400 mg QDAY GLEN Administration Midodrine 10 mg 09/05/18 19:00 09/25/18 14:28 Proamatine PO 10 mg TID@0800,1200,1600 GLEN Administration Nystatin 500,000 unit 09/10/18 20:00 09/25/18 22:29 Nystatin PO 500,000 unit TID GLEN Administration Ondansetron HCl 4 mg 09/05/18 02:48 09/10/18 13:06 Zofran IV 4 mg Q8H PRN Administration Nausea And Vomiting Sodium Chloride 10 ml 09/05/18 10:00 09/25/18 22:29 Sodium Chloride Flush Syringe 10 Ml IV 10 ml BID GLEN Administration Sodium Chloride 10 ml 09/05/18 02:48 Sodium Chloride Flush Syringe 10 Ml IV PRN PRN LINE FLUSH Tenofovir Disoproxil Fumarate 300 mg 09/20/18 14:00 09/25/18 11:10 Viread PO 300 mg QDAY GLEN Administration Trimethoprim/Sulfamethoxazole 1 each 09/14/18 10:00 09/25/18 11:10 Bactrim Ds PO 1 each DAILY GLEN Administration Nutrition/Malnutrition Assess - Dietary Evaluation Nutrition/Malnutrition Findings: Nutrition Notes Start: 09/06/18 15:57 Freq: Status: Active Protocol: Document 09/23/18 10:34 CP (Rec: 09/23/18 10:35 CP [id number]) Co-Sign 09/23/18 10:34 LP Nutrition Notes Initial or Follow up Reassessment Other Pertinent Diagnosis HIV/AIDS, noncompliance, oral candidiasis Current Diet Regular + Ensure Clear daily Labs/Tests Reviewed Pertinent Medications Reviewed Height 5 ft 3 in Weight 47.6 kg [place] Body Weight (kg) 56.36 BMI 18.6 Subjective/Other Information Pt hands were restrained during time of visit. Pt reported that his appetite was okay and he didn't eat due to the restraints. Percent of energy/protein needs met: 0%/0% Burn Absent Trauma Absent #1 Nutrition Diagnosis Malnutrition Diagnosis Progress(for reassessment Continues documentation) Is patient on ventilator? No Is Patient Ambulatory and/or Out of Bed No REE-([facility]-confined to bed) 1528.812 Calculation Used for Recommendations [facility] Additional Notes Pro needs 1.2-1.5g/k-69 g /day Fluid needs 1ml/kcal Nutrition Intervention Change Diet Order: Continue current or TF consult Add Supplement/Snack (indicate name/kcal Ensure Clear 1 daily /protein ) Provides kCal: 240 Provides Protein (gm) 8 Goal #1 Meet at least 75% of calorie and protein needs Anticipated Discharge Needs: Regular diet Follow-Up By: 09/27/18 Additional Comments Follow for PO and ONS intakes
[2018-09-26] MEDS: MEGACE PO SCH (11:23)
--- NOTE | 2018-09-26 11:38 | Consultation ---
Referred by Dr. Turner. REASON FOR CONSULTATION: Anemia, thrombocytopenia, leukopenia. HISTORY OF PRESENT ILLNESS: I saw the patient, a 42-year-old male in the medical floor. The patient was admitted on 09/05/2018, he has history of HIV/AIDS. He came to the hospital because of altered mentation. During this admission the patient has been seen by the Infectious Disease team, pulmonary team, Cardiology team, and GI team. The patient underwent extensive investigations and he was treated for HIV encephalopathy, oral candidiasis, pneumonia. The patient has been placed on medications, which includes micafungin, Bactrim. Blood counts have been going down. His white cell count at admission was 4.8 on 09/04/2018 and is now 0.7, hemoglobin was 9.6 on admission and now it is 7.8, platelets was 195 at admission and now 28. I have been asked to evaluate the patient. Pulmonary team has been following him for the pneumonia. GI team and Cardiology team saw the patient. ALLERGIES: None. HOME MEDICATIONS: As per the notes Zithromax, nystatin, posaconazole. REVIEW OF SYSTEMS: No chest pain, no abdominal pain, no vomiting, no diarrhea. PHYSICAL EXAMINATION: VITAL SIGNS: Temperature 98, pulse 79, respirations 20, BP 87/67. HEENT: Pallor present. No icterus. NECK: No neck lymph nodes. HEART: S1, S2. LUNGS: Decreased air entry. ABDOMEN: Soft. EXTREMITIES: No calf tenderness. LABORATORY DATA: White cell 0.7, hemoglobin 7.8, MCV 89, platelet 28, potassium 3.9, creatinine 1.3, calcium 8.6, bilirubin 0.2, AST 126, ALT is 77. RADIOLOGY: CT abdomen was done. Chest CT was done. Brain MRI was done. No splenomegaly, slightly inhomogeneous liver. ASSESSMENT: 1. Anemia, leukopenia, thrombocytopenia. The question arises if this is HIV related, medication related, or infection related. I will look into deficiency administration. We will look into bone marrow aspiration biopsy including culture. 2. We will do smear evaluation. 3. Abnormal liver function test. 4. Iron is low, but ferritin is high, may be inflammatory etiology. 5. Human immunodeficiency virus. 6. The ID team following. 7. Micafungin. I spoke with the pharmacy, based on the timing of the episodes. The patient was on IV Bactrim and then oral Bactrim, micafungin was used for a few days and stopped and restarted. 8. History of Carolann. 9. History of being treated for pneumonia. 10. Malnutrition. I will follow the patient during inpatient stay. We will look into bone marrow biopsy. JOB# [id number] NM/NTS
[2018-09-26] MEDS: TIVICAY PO SCH (11:55)
[2018-09-26] MEDS: VIREAD PO SCH (11:55)
[2018-09-26] MEDS: PEPCID PO SCH ×2 (12:00→23:25)
[2018-09-26] MEDS: EMTRIVA PO SCH (12:05)
[2018-09-26] MEDS: BACTRIM DS PO SCH (12:11)
[2018-09-26] MEDS: MYCAMINE 100 MG in NACL 0.9% 100 ML IV SCH (12:53)
[2018-09-26] MEDS: SODIUM CHLORIDE FLUSH SYRINGE 10 ML IV SCH ×2 (13:24→23:25)
[2018-09-26 15:37] LABS: Alanine Aminotransferase 128 units/L (7-56); Albumin 3.1 g/dL (3.9-5); BUN/Creatinine Ratio 20; Blood Urea Nitrogen 18 mg/dL (9-20); Calcium 8.7 mg/dL (8.4-10.2); Hemolysis Index 13
--- NOTE | 2018-09-26 15:37 | Progress Note ---
Assessment and Plan .Patient awake and weak, resting at this time on room air. No acute respiratory distress. O2 saturation 96%. Recommend O2 2 litres via nasal canula. Patient aferbile and has leukopenia. - Patient Problems (1) Pneumonia Current Visit: Yes Status: Acute Qualifiers: Pneumonia type: due to unspecified organism Laterality: left Lung location: lower lobe of lung Qualified Code(s): J18.1 - Lobar pneumonia, unspecified organism Plan to address problem: Patient is on bactium. (2) AIDS Current Visit: Yes Status: Chronic Plan to address problem: Management as per infectious diseases. (3) Altered mental status Current Visit: Yes Status: Acute Plan to address problem: Management as per primary care and neurology. (4) Oral candidiasis Current Visit: Yes Status: Acute Plan to address problem: Patient getting nystatin. Subjective Date of service: 09/26/18 Principal diagnosis: severe sepsis, hypotension, acute encephaloapthy, HIV-AIDS Interval history: Patient awake and weak, resting at this time on room air. No acute respiratory distress. O2 saturation 96%. Recommend O2 2 litres via nasal cannula. Patient aferbile and has leukopenia. Objective Vital Signs - 12hr 09/26/18 09/26/18 09/26/18 03:59 09:13 09:14 Temperature 98.6 F 98.5 F Pulse Rate 80 72 Respiratory 20 16 Rate Blood Pressure 91/61 85/52 O2 Sat by Pulse 99 99 Oximetry 09/26/18 13:52 Temperature Pulse Rate 82 Respiratory Rate Blood Pressure 87/55 O2 Sat by Pulse 100 Oximetry Constitutional: no acute distress, alert, other (Weak) Eyes: non-icteric ENT: oropharynx moist, oropharyngeal exudate pre, other (mallampati 2) Neck: supple, no lymphadenopathy, no JVD, other Ascultation: Bilateral: diminished breath sounds, other (Prolonged expiratory phase.) Cardiovascular: regular rate and rhythm Gastrointestinal: normoactive bowel sounds, soft, non-tender, non-distended Integumentary: normal Extremities: no cyanosis, no edema, pulses normal, no ischemia or petechiae Neurologic: non-focal exam (grossly), pupils equal and round, other (weak; mild cognitive dysfunction) Psychiatric: other (affect flat) CBC and BMP: 09/27/18 06:28 09/27/18 06:28 ABG, PT/INR, D-dimer: PT/INR, D-dimer PT 15.1 Sec. (12.2-14.9) H 09/11/18 05:22 INR 1.12 (0.87-1.13) 09/11/18 05:22 Abnormal lab findings: Abnormal Labs 09/04/18 09/04/18 09/04/18 21:00 21:00 22:32 WBC RBC 3.23 L Hgb 9.6 L Hct 28.9 L RDW 18.8 H Plt Count Lymph % (Auto) [place] % (Auto) 12.5 H Lymph # 0.7 L Seg Neutrophils % 72.4 H Seg Neuts % (Manual) Lymphocytes % (Manual) Monocytes % (Manual) Nucleated RBC % Seg Neutrophils # Man Lymphocytes # (Manual) PT Sodium Potassium Chloride 109.9 H Carbon Dioxide 21 L BUN 31 H Creatinine Glucose Lactic Acid 2.40 H* Calcium 8.2 L Iron TIBC Ferritin AST 200 H ALT 136 H Alkaline Phosphatase 138 H Ammonia Total Protein Albumin 3.5 L Vitamin B12 09/04/18 09/05/18 09/05/18 22:32 16:19 16:19 WBC RBC Hgb Hct RDW Plt Count Lymph % (Auto) [place] % (Auto) Lymph # Seg Neutrophils % Seg Neuts % (Manual) Lymphocytes % (Manual) Monocytes % (Manual) Nucleated RBC % Seg Neutrophils # Man Lymphocytes # (Manual) PT Sodium Potassium Chloride 112.4 H Carbon Dioxide 19 L BUN Creatinine Glucose Lactic Acid Calcium 8.1 L Iron TIBC 223 L Ferritin AST 241 H ALT 138 H Alkaline Phosphatase Ammonia 64.0 H Total Protein Albumin 3.1 L Vitamin B12 09/05/18 09/06/18 09/06/18 16:19 10:40 10:40 WBC 2.4 L RBC 2.67 L Hgb 7.7 L Hct 23.7 L RDW 18.7 H Plt Count 135 L Lymph % (Auto) 10.0 L [place] % (Auto) 8.4 H Lymph # 0.2 L Seg Neutrophils % 81.1 H Seg Neuts % (Manual) Lymphocytes % (Manual) Monocytes % (Manual) Nucleated RBC % Seg Neutrophils # Man Lymphocytes # (Manual) PT Sodium Potassium Chloride 112.1 H Carbon Dioxide 19 L BUN Creatinine 0.7 L Glucose Lactic Acid Calcium 7.8 L Iron TIBC Ferritin 2880.0 H AST 263 H ALT 143 H Alkaline Phosphatase Ammonia Total Protein 6.1 L Albumin 2.8 L Vitamin B12 09/07/18 09/07/18 09/08/18 10:38 10:38 06:39 WBC RBC 2.86 L Hgb 8.3 L Hct 25.2 L RDW 18.3 H Plt Count 123 L Lymph % (Auto) 6.1 L [place] % (Auto) Lymph # 0.3 L Seg Neutrophils % 87.3 H Seg Neuts % (Manual) Lymphocytes % (Manual) Monocytes % (Manual) Nucleated RBC % Seg Neutrophils # Man Lymphocytes # (Manual) PT Sodium Potassium Chloride Carbon Dioxide BUN Creatinine Glucose Lactic Acid Calcium Iron 26 L TIBC 212 L Ferritin 2762.0 H AST ALT Alkaline Phosphatase Ammonia Total Protein Albumin Vitamin B12 09/08/18 09/08/18 09/09/18 06:39 13:43 07:03 WBC RBC Hgb Hct RDW Plt Count Lymph % (Auto) [place] % (Auto) Lymph # Seg Neutrophils % Seg Neuts % (Manual) Lymphocytes % (Manual) Monocytes % (Manual) Nucleated RBC % Seg Neutrophils # Man Lymphocytes # (Manual) PT Sodium Potassium 3.2 L 3.5 L Chloride 111.9 H 108.6 H Carbon Dioxide 13 L 15 L BUN 6 L 4 L Creatinine Glucose 118 H Lactic Acid Calcium 7.5 L 7.5 L Iron TIBC Ferritin AST 117 H 130 H ALT 87 H 86 H Alkaline Phosphatase Ammonia Total Protein 5.6 L 6.0 L Albumin 2.6 L 2.6 L Vitamin B12 09/09/18 09/10/18 09/10/18 07:31 04:26 04:26 WBC 3.5 L 2.1 L RBC 2.82 L 3.10 L Hgb 8.2 L 9.0 L Hct 24.6 L 27.1 L RDW 18.8 H 18.6 H Plt Count 136 L 139 L Lymph % (Auto) [place] % (Auto) Lymph # Seg Neutrophils % Seg Neuts % (Manual) 77.0 H Lymphocytes % (Manual) 11.0 L Monocytes % (Manual) 11.0 H Nucleated RBC % Seg Neutrophils # Man 1.6 L Lymphocytes # (Manual) 0.2 L PT Sodium Potassium Chloride 112.7 H Carbon Dioxide 14 L BUN 5 L Creatinine Glucose 109 H Lactic Acid Calcium 7.7 L Iron TIBC Ferritin AST 110 H ALT 76 H Alkaline Phosphatase Ammonia Total Protein 6.0 L Albumin 2.8 L Vitamin B12 09/11/18 09/12/18 09/13/18 05:22 12:28 07:23 WBC 1.1 L* RBC 2.82 L Hgb 8.2 L Hct 25.5 L RDW 19.5 H Plt Count 103 L Lymph % (Auto) [place] % (Auto) Lymph # Seg Neutrophils % Seg Neuts % (Manual) Lymphocytes % (Manual) Monocytes % (Manual) 18.0 H Nucleated RBC % Seg Neutrophils # Man 0.6 L Lymphocytes # (Manual) 0.3 L PT 15.1 H Sodium 133 L Potassium 3.5 L Chloride 108.8 H Carbon Dioxide 14 L BUN 6 L Creatinine Glucose 123 H Lactic Acid Calcium 7.4 L Iron TIBC Ferritin AST 126 H ALT 77 H Alkaline Phosphatase Ammonia Total Protein 5.7 L Albumin 2.6 L Vitamin B12 09/15/18 09/15/18 09/17/18 00:51 04:31 10:52 WBC 1.2 L* 1.2 L* RBC 3.38 L 3.03 L Hgb 9.7 L 8.9 L Hct 29.5 L 27.2 L RDW 19.0 H 19.5 H Plt Count 95 L 59 L Lymph % (Auto) [place] % (Auto) Lymph # Seg Neutrophils % Seg Neuts % (Manual) Lymphocytes % (Manual) Monocytes % (Manual) 24.0 H 14.0 H Nucleated RBC % 2.0 H Seg Neutrophils # Man 0.6 L 0.8 L Lymphocytes # (Manual) 0.3 L 0.2 L PT Sodium Potassium Chloride 112.0 H Carbon Dioxide 13 L BUN Creatinine Glucose 65 L Lactic Acid Calcium Iron TIBC Ferritin AST ALT Alkaline Phosphatase Ammonia Total Protein Albumin Vitamin B12 09/21/18 09/24/18 09/26/18 15:26 00:33 07:54 WBC 1.6 L* 0.7 L* RBC 2.94 L 2.67 L Hgb 8.8 L 7.8 L Hct 26.3 L 23.8 L RDW 20.0 H 20.3 H Plt Count 26 L 28 L Lymph % (Auto) [place] % (Auto) Lymph # Seg Neutrophils % Seg Neuts % (Manual) Lymphocytes % (Manual) Monocytes % (Manual) 12.0 H 10.0 H Nucleated RBC % Seg Neutrophils # Man 1.0 L 0.4 L Lymphocytes # (Manual) 0.4 L 0.1 L PT Sodium Potassium Chloride Carbon Dioxide BUN Creatinine Glucose Lactic Acid Calcium Iron TIBC Ferritin AST ALT Alkaline Phosphatase Ammonia Total Protein Albumin Vitamin B12 1010 H Allied health notes reviewed: nursing
[2018-09-26 16:39] LABS: Hematocrit 25.6 % (35.5-45.6); Hemoglobin 8.3 gm/dl (11.8-15.2); Mean Corpuscular HGB Conc 33 % (32-34); Mean Corpuscular Volume 90 fl (84-94); Red Blood Count 2.85 M/mm3 (3.65-5.03)
[2018-09-26 16:50] LABS: Platelet Count 83 K/mm3 (140-440); Red Cell Distribution Width 20.2 % (13.2-15.2)
[2018-09-26 17:39] LABS: Anisocytosis 2+; Basophils % (Manual) 0 % (0.0-1.8); Eosinophils % (Manual) 0 % (0.0-4.3); Hypochromasia 1+; Ovalocytes 1+; Platelet Estimate Consistent w Auto; Poikilocytosis 1+; Tear Drop Cells 1+; Total Cells Counted 100
[2018-09-27 07:03] LABS: BUN/Creatinine Ratio 23; Blood Urea Nitrogen 23 mg/dL (9-20); Calcium 8.5 mg/dL (8.4-10.2); Hemolysis Index 1
--- NOTE | 2018-09-27 07:24 | Hem/Onc Progress Note ---
Assessment and Plan 1. Anemia, leukopenia, thrombocytopenia. The question arises if this is HIV related, medication related, or infection related. deficiency Ix. bone marrow aspiration biopsy including culture. 2. smear evaluation. 3. Abnormal liver function test. 4. Iron is low, but ferritin is high, may be inflammatory etiology. 5. Human immunodeficiency virus. 6. The ID team following. 7. Micafungin. I had spoken with the pharmacy, based on the timing of the episodes. The patient was on IV Bactrim and then oral Bactrim, micafungin was used for a few days and stopped and restarted. 8. History of Carolann. 9. History of being treated for pneumonia. 10. Malnutrition. I will follow the patient during inpatient stay. order bone marrow biopsy. 09/27 - wbc - plt better path called to say schistocytes - but plt better [id number] ordered - Patient Problems (1) Pancytopenia Current Visit: Yes Status: Acute Subjective Date of service: 09/27/18 Principal diagnosis: low plt Interval history: no bleeding Objective - Constitutional Vitals: Last Vital Signs Temp 99.1 F 09/27/18 01:13 Pulse 64 09/27/18 01:13 Resp 16 09/27/18 01:13 BP 90/60 09/27/18 01:13 Pulse Ox 97 09/27/18 01:13 Pain Intensity (0-10): denies any pain General appearance: no acute distress Performance status: 3-limited selfcare - EENT Eyes: EOM intact ENT: hearing intact Lymph node exam: negative cervical - Neck Neck: normal ROM - Respiratory Respiratory effort: Positive: normal Respiratory: bilateral: diminished - Cardiovascular Heart Sounds: Present: S1 & S2 Extremities: No edema - Gastrointestinal General gastrointestinal: Present: soft, non-tender Rectal Exam: deferred - Genitourinary Male genitourinary: Present: deferred - Integumentary Integumentary: warm - Musculoskeletal Musculoskeletal: generalized weakness - Neurologic Neurologic: moves all extremities - Labs Lab Results: Laboratory Results - last 24 hr 09/26/18 09/26/18 09/26/18 07:54 07:54 14:59 WBC 2.0 L RBC 2.85 L Hgb 8.3 L Hct 25.6 L MCV 90 MCH 29 MCHC 33 RDW 20.2 H Plt Count 83 L D Add Manual Diff Complete Total Counted 100 Seg Neuts % (Manual) 67.0 Band Neutrophils % 1.0 Lymphocytes % (Manual) 11.0 L Reactive Lymphs % (Man) 2.0 Monocytes % (Manual) 19.0 H Eosinophils % (Manual) 0 Basophils % (Manual) 0 Metamyelocytes % 0 Myelocytes % 0 Promyelocytes % 0 Blast Cells % 0 Nucleated RBC % Not Reportable Seg Neutrophils # Man 1.3 L Band Neutrophils # 0.0 Lymphocytes # (Manual) 0.2 L Abs React Lymphs (Man) 0.0 Monocytes # (Manual) 0.4 Eosinophils # (Manual) 0.0 Basophils # (Manual) 0.0 Metamyelocytes # 0.0 Myelocytes # 0.0 Promyelocytes # 0.0 Blast Cells # 0.0 WBC Morphology Not Reportable Hypersegmented Neuts Not Reportable Hyposegmented Neuts Not Reportable Hypogranular Neuts Not Reportable Smudge Cells Not Reportable Toxic Granulation Not Reportable Toxic Vacuolation Not Reportable Dohle Bodies Not Reportable Pelger-Huet Anomaly Not Reportable Giovanni Rods Not Reportable Platelet Estimate Consistent w auto Clumped Platelets Not Reportable Plt Clumps, EDTA Not Reportable Large Platelets Not Reportable Giant Platelets Not Reportable Platelet Satelliting Not Reportable Plt Morphology Comment Not Reportable RBC Morphology Not Reportable Dimorphic RBCs Not Reportable Polychromasia Not Reportable Hypochromasia 1+ Poikilocytosis 1+ Anisocytosis 2+ Microcytosis Not Reportable Macrocytosis Not Reportable Spherocytes Not Reportable Pappenheimer Bodies Not Reportable Sickle Cells Not Reportable Target Cells Not Reportable Tear Drop Cells 1+ Ovalocytes 1+ Helmet Cells Not Reportable [place] Bodies Not Reportable [place] Rings Not Reportable [place] Cells Not Reportable Bite Cells Not Reportable Crenated Cell Not Reportable Elliptocytes 1+ Acanthocytes (Spur) Not Reportable Rouleaux Not Reportable Hemoglobin C Crystals Not Reportable Schistocytes Not Reportable Malaria parasites Not Reportable Carlos A Bodies Not Reportable Hem Pathologist Commnt No Sodium Potassium Chloride Carbon Dioxide Anion Gap BUN Creatinine Estimated GFR BUN/Creatinine Ratio Glucose Calcium Total Bilirubin AST ALT Alkaline Phosphatase Total Protein Albumin Albumin/Globulin Ratio Vitamin B12 1010 H Folate 7.69 09/26/18 09/27/18 14:59 06:28 WBC RBC Hgb Hct MCV MCH MCHC RDW Plt Count Add Manual Diff Total Counted Seg Neuts % (Manual) Band Neutrophils % Lymphocytes % (Manual) Reactive Lymphs % (Man) Monocytes % (Manual) Eosinophils % (Manual) Basophils % (Manual) Metamyelocytes % Myelocytes % Promyelocytes % Blast Cells % Nucleated RBC % Seg Neutrophils # Man Band Neutrophils # Lymphocytes # (Manual) Abs React Lymphs (Man) Monocytes # (Manual) Eosinophils # (Manual) Basophils # (Manual) Metamyelocytes # Myelocytes # Promyelocytes # Blast Cells # WBC Morphology Hypersegmented Neuts Hyposegmented Neuts Hypogranular Neuts Smudge Cells Toxic Granulation Toxic Vacuolation Dohle Bodies Pelger-Huet Anomaly Giovanni Rods Platelet Estimate Clumped Platelets Plt Clumps, EDTA Large Platelets Giant Platelets Platelet Satelliting Plt Morphology Comment RBC Morphology Dimorphic RBCs Polychromasia Hypochromasia Poikilocytosis Anisocytosis Microcytosis Macrocytosis Spherocytes Pappenheimer Bodies Sickle Cells Target Cells Tear Drop Cells Ovalocytes Helmet Cells [place] Bodies [place] Rings Cinthya Cells Bite Cells Crenated Cell Elliptocytes Acanthocytes (Spur) Rouleaux Hemoglobin C Crystals Schistocytes Malaria parasites Carlos A Bodies Hem Pathologist Commnt Sodium 143 142 Potassium 4.4 4.8 Chloride 108.0 H 110.5 H Carbon Dioxide 24 24 Anion Gap 15 12 BUN 18 23 H Creatinine 0.9 1.0 Estimated GFR > 60 > 60 BUN/Creatinine Ratio 20 23 Glucose 102 H 81 Calcium 8.7 8.5 Total Bilirubin 0.20 AST 364 H ALT 128 H Alkaline Phosphatase 311 H Total Protein 6.9 Albumin 3.1 L Albumin/Globulin Ratio 0.8 Vitamin B12 Folate Medications & Allergies - Medications Allergies/Adverse Reactions: Allergies No Known Allergies Allergy (Verified 07/18/18 14:08) Home Medications: Home Medications Medication Instructions Recorded Confirmed Last Taken Type Azithromycin [Zithromax TAB] 1,200 mg PO QWEEK #4 tablet 06/18/18 09/14/18 Unknown Rx Pantoprazole [Protonix TAB] 40 mg PO DAILY #30 tablet 06/19/18 09/14/18 Unknown Rx Nystas/Diphen/Xyl Visc/Mylanta 15 ml PO TID 14 Days oral.liqd 07/18/18 09/14/18 Unknown Rx [Magic Mouthwash] Nystas/Diphen/Xyl Visc/Mylanta 15 ml PO TID 30 Days #1 udc 07/23/18 09/14/18 Unknown Rx [Magic Mouthwash] Sulfamethoxazole/Trimethoprim 1 each PO QDAY 30 Days #30 tablet 07/23/18 09/14/18 Unknown Rx [Bactrim DS TAB] Posaconazole [Noxafil] 300 mg PO BID 1 Days #6 tablet. 08/03/18 09/14/18 Unknown Rx Posaconazole [Noxafil] 300 mg PO QDAY 13 Days #39 08/03/18 09/14/18 Unknown Rx tablet. Acyclovir [Zovirax Tab] 400 mg PO Q8H 30 Days #90 tab 08/04/18 09/14/18 Unknown Rx Azithromycin [Zithromax TAB] 1,200 mg PO QDAY 30 Days #8 tablet 08/04/18 09/14/18 Unknown Rx Loperamide [Imodium] 2 mg PO Q2H PRN #30 capsule 08/04/18 09/14/18 Unknown Rx Midodrine HCl 2.5 mg PO DAILY #30 tablet 08/04/18 09/14/18 Unknown Rx Active Medications: Generic Name Dose Route Start Last Admin Trade Name Freq PRN Reason Stop Dose Admin Acetaminophen 650 mg 09/05/18 02:48 09/09/18 06:44 Tylenol PO 650 mg Q4H PRN Administration Pain MILD(1-3)/Fever >100.5/VILLAREAL Emtricitabine 200 mg 09/20/18 14:00 09/26/18 12:05 Emtriva PO 200 mg QDAY GLEN Administration Famotidine 10 mg 09/22/18 22:00 09/26/18 23:25 Pepcid PO 10 mg BID GLEN Administration Sodium Chloride 1,000 mls @ 100 mls/hr 09/16/18 08:00 09/23/18 12:46 Nacl 0.9% 1000 Ml IV 100 mls/hr DIRECT GLEN Administration Micafungin Sodium 100 mg/ 100 mls @ 100 mls/hr 09/24/18 14:00 09/26/18 12:53 Sodium Chloride IV 100 mls/hr QDAY GLEN Administration Protocol Megestrol Acetate 400 mg 09/24/18 10:00 09/26/18 11:23 Megace PO 400 mg QDAY GLEN Administration Midodrine 10 mg 09/05/18 19:00 09/26/18 18:33 Proamatine PO 10 mg TID@0800,1200,1600 GLEN Administration Nystatin 500,000 unit 09/10/18 20:00 09/26/18 23:25 Nystatin PO 500,000 unit TID GLEN Administration Ondansetron HCl 4 mg 09/05/18 02:48 09/10/18 13:06 Zofran IV 4 mg Q8H PRN Administration Nausea And Vomiting Sodium Chloride 10 ml 09/05/18 10:00 09/26/18 23:25 Sodium Chloride Flush Syringe 10 Ml IV 10 ml BID GLEN Administration Sodium Chloride 10 ml 09/05/18 02:48 Sodium Chloride Flush Syringe 10 Ml IV PRN PRN LINE FLUSH Tenofovir Disoproxil Fumarate 300 mg 09/20/18 14:00 09/26/18 11:55 Viread PO 300 mg QDAY GLEN Administration Trimethoprim/Sulfamethoxazole 1 each 09/14/18 10:00 09/26/18 12:11 Bactrim Ds PO 1 each DAILY GLEN Administration
[2018-09-27 07:44] LABS: Hematocrit 25.5 % (35.5-45.6); Hemoglobin 8.4 gm/dl (11.8-15.2); Mean Corpuscular HGB Conc 33 % (32-34); Mean Corpuscular Volume 89 fl (84-94); Red Blood Count 2.88 M/mm3 (3.65-5.03); Red Cell Distribution Width 19.4 % (13.2-15.2)
[2018-09-27 07:45] LABS: Platelet Count 84 K/mm3 (140-440)
[2018-09-27] MEDS: PROAMATINE PO SCH ×4 (08:35→17:22)
[2018-09-27 10:40] LABS: INR 0.91 (0.87-1.13)
[2018-09-27 10:41] LABS: Partial Thromboplastin Time 30.4 Sec. (24.2-36.6)
--- NOTE | 2018-09-27 11:28 | Progress Note ---
Assessment and Plan Assessment and plan: HIV encephalopathy. CT head shows no acute intracranial abnormality. + chronic maxillary and ethmoid sinusitis. MRI images showing brain atrophy, no focal lesions to suggest toxopl asma, PML, ventriculitis, DIE OPERATOR lymphoma or other space occupying lesions. Crypto Ag is negative. TTE shows no valvular vegetation, EF 30-35 %. -Fungitell: negative -CMV DNR - <200 Unfortunately, patient required restraints this morning due to agitation. Continue to monitor, educated nursing with reorientation. Chronic hypotension. 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 Cardiology with no further recommendations. Patient with grave prognosis, cardiology recommending conservative approach. Oral candidiasis. h/o resistant Carolann. improved. Continue Nystatin Severe protein calorie malnutrition. related to HIV AIDS. HIV/AIDS. Last admission in June CD4 count 11. Viral load high. Prognosis is poor. Agreed to go to SNF. HIV therapy started 09/20/18 with Truvada + Tivicay. Continue Bactrim DS daily. Transaminitis. Abdominal ultrasound unremarkable. CT abdomen showing possible enteritis and somewhat inhomogenous liver. may be due to ischemic hepatitis, HIV/AIDS hepatopathy, infectious etiology with viral hepatitis, vs drug toxicity- GI following. Stable to improving. Evaluating for disseminated MAC, fungal/mycolytic blood cultures in process. 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 TTE no valvular vegetation, EF 30-35% Bilateral pneumonia. Chest CT shows Bilateral pneumonia with findings most prominent in the left lower lobe as described. Bronchiectatic changes in left lower lobe noted also. Scattered blebs in the left lung. Fungitell negative, so PCP quite less likely. bilateral ground glass opacities could be fluid given cardiomyopathy and low EF. Pancytopenia with severe thrombocytopenia. Etiology secondary HIV/AIDS. ID recommends hematology consultation. Patient may need Neupogen. Check HIT panel Disposition. Awaiting SNF placement. Cardiology and ID recommend Hospice, but patient refuses. History Interval history: Patient is a 42 yo man with a history of HIV/AIDs and anemia who presented to [facility] ED with AMS on 09/04/18. Patient was just discharged from here on 08/04/2018 for sepsis, LLL, lingula pneumonia and severe oral candidiasis. Encephalopathy was attributed to acute metabolic encephalopathy from HIV encephalopathy/FTT/malnutrition, which has resolved. The patient has noted to have hypotension which is felt to be acute on chronic and not sepsis related. H is effective circulatory volume is low due to his malnutrition from severe HIV/AIDS. Patient also noted to have other complications related to this including pancytopenia and oral candidiasis which has been treated. No new issues overnight. Hospitalist Physical - Constitutional Vitals: Temp Pulse Resp BP Pulse Ox 97.7 F 66 14 74/39 97 09/27/18 08:22 09/27/18 08:22 09/27/18 08:22 09/27/18 08:22 09/27/18 08:22 General appearance: Present: no acute distress, well-nourished - EENT Eyes: Present: PERRL, EOM intact ENT: hearing intact, clear oral mucosa, dentition normal - Neck Neck: Present: supple, normal ROM - Respiratory Respiratory effort: normal Respiratory: bilateral: CTA - Cardiovascular Rhythm: regular Heart Sounds: Present: S1 & S2. Absent: gallop, rub - Extremities Extremities: no ischemia, No edema, Full ROM - Abdominal General gastrointestinal: soft, non-tender, non-distended, normal bowel sounds - Integumentary Integumentary: Present: clear, warm, dry - Neurologic Neurologic: CNII-XII intact, moves all extremities Results - Labs CBC & Chem 7: 09/27/18 06:28 09/27/18 06:28 Labs: Laboratory Last Values WBC 2.0 K/mm3 (4.5-11.0) L 09/27/18 06:28 RBC 2.88 M/mm3 (3.65-5.03) L 09/27/18 06:28 Hgb 8.4 gm/dl (11.8-15.2) L 09/27/18 06:28 Hct 25.5 % (35.5-45.6) L 09/27/18 06:28 MCV 89 fl (84-94) 09/27/18 06:28 MCH 29 pg (28-32) 09/27/18 06:28 MCHC 33 % (32-34) 09/27/18 06:28 RDW 19.4 % (13.2-15.2) H 09/27/18 06:28 Plt Count 84 K/mm3 (140-440) L 09/27/18 06:28 Lymph % (Auto) 6.1 % (13.4-35.0) L 09/08/18 06:39 Gibson % (Auto) Flight Test Supervisor 09/27/18 06:28 Eos % (Auto) 0.0 % (0.0-4.3) 09/08/18 06:39 Baso % (Auto) 0.2 % (0.0-1.8) 09/08/18 06:39 Lymph # 0.3 K/mm3 (1.2-5.4) L 09/08/18 06:39 Gibson # 0.3 K/mm3 (0.0-0.8) 09/08/18 06:39 Eos # 0.0 K/mm3 (0.0-0.4) 09/08/18 06:39 Baso # 0.0 K/mm3 (0.0-0.1) 09/08/18 06:39 Add Manual Diff Complete 09/26/18 14:59 Total Counted 100 09/26/18 14:59 Seg Neutrophils % 87.3 % (40.0-70.0) H 09/08/18 06:39 Seg Neuts % (Manual) 67.0 % (40.0-70.0) 09/26/18 14:59 Band Neutrophils % 1.0 % 09/26/18 14:59 Lymphocytes % (Manual) 11.0 % (13.4-35.0) L 09/26/18 14:59 Reactive Lymphs % (Man) 2.0 % 09/26/18 14:59 Monocytes % (Manual) 19.0 % (0.0-7.3) H 09/26/18 14:59 Eosinophils % (Manual) 0 % (0.0-4.3) 09/26/18 14:59 Basophils % (Manual) 0 % (0.0-1.8) 09/26/18 14:59 Metamyelocytes % 0 % 09/26/18 14:59 Myelocytes % 0 % 09/26/18 14:59 Promyelocytes % 0 % 09/26/18 14:59 Blast Cells % 0 % 09/26/18 14:59 Nucleated RBC % Not Reportable 09/26/18 14:59 Seg Neutrophils # 4.5 K/mm3 (1.8-7.7) 09/08/18 06:39 Seg Neutrophils # Man 1.3 K/mm3 (1.8-7.7) L 09/26/18 14:59 Band Neutrophils # 0.0 K/mm3 09/26/18 14:59 Lymphocytes # (Manual) 0.2 K/mm3 (1.2-5.4) L 09/26/18 14:59 Abs React Lymphs (Man) 0.0 K/mm3 09/26/18 14:59 Monocytes # (Manual) 0.4 K/mm3 (0.0-0.8) 09/26/18 14:59 Eosinophils # (Manual) 0.0 K/mm3 (0.0-0.4) 09/26/18 14:59 Basophils # (Manual) 0.0 K/mm3 (0.0-0.1) 09/26/18 14:59 Metamyelocytes # 0.0 K/mm3 09/26/18 14:59 Myelocytes # 0.0 K/mm3 09/26/18 14:59 Promyelocytes # 0.0 K/mm3 09/26/18 14:59 Blast Cells # 0.0 K/mm3 09/26/18 14:59 WBC Morphology Not Reportable 09/26/18 14:59 Hypersegmented Neuts Not Reportable 09/26/18 14:59 Hyposegmented Neuts Not Reportable 09/26/18 14:59 Hypogranular Neuts Not Reportable 09/26/18 14:59 Smudge Cells Not Reportable 09/26/18 14:59 Toxic Granulation Not Reportable 09/26/18 14:59 Toxic Vacuolation Not Reportable 09/26/18 14:59 Dohle Bodies Not Reportable 09/26/18 14:59 Pelger-Huet Anomaly Not Reportable 09/26/18 14:59 Giovanni Rods Not Reportable 09/26/18 14:59 Platelet Estimate Consistent w auto 09/26/18 14:59 Clumped Platelets Not Reportable 09/26/18 14:59 Plt Clumps, EDTA Not Reportable 09/26/18 14:59 Large Platelets Not Reportable 09/26/18 14:59 Giant Platelets Not Reportable 09/26/18 14:59 Platelet Satelliting Not Reportable 09/26/18 14:59 Plt Morphology Comment Not Reportable 09/26/18 14:59 RBC Morphology Not Reportable 09/26/18 14:59 Dimorphic RBCs Not Reportable 09/26/18 14:59 Polychromasia Not Reportable 09/26/18 14:59 Hypochromasia 1+ 09/26/18 14:59 Poikilocytosis 1+ 09/26/18 14:59 Anisocytosis 2+ 09/26/18 14:59 Microcytosis Not Reportable 09/26/18 14:59 Macrocytosis Not Reportable 09/26/18 14:59 Spherocytes Not Reportable 09/26/18 14:59 Pappenheimer Bodies Not Reportable 09/26/18 14:59 Sickle Cells Not Reportable 09/26/18 14:59 Target Cells Not Reportable 09/26/18 14:59 Tear Drop Cells 1+ 09/26/18 14:59 Ovalocytes 1+ 09/26/18 14:59 Helmet Cells Not Reportable 09/26/18 14:59 [place] Bodies Not Reportable 09/26/18 14:59 [place]field Rings Not Reportable 09/26/18 14:59 Munson Cells Not Reportable 09/26/18 14:59 Bite Cells Not Reportable 09/26/18 14:59 Crenated Cell Not Reportable 09/26/18 14:59 Elliptocytes 1+ 09/26/18 14:59 Acanthocytes (Spur) Not Reportable 09/26/18 14:59 Rouleaux Not Reportable 09/26/18 14:59 Hemoglobin C Crystals Not Reportable 09/26/18 14:59 Schistocytes Not Reportable 09/26/18 14:59 Malaria parasites Not Reportable 09/26/18 14:59 Carlos A Bodies Not Reportable 09/26/18 14:59 Hem Pathologist Commnt No 09/26/18 14:59 PT 12.8 Sec. (12.2-14.9) 09/27/18 10:21 INR 0.91 (0.87-1.13) 09/27/18 10:21 APTT 30.4 Sec. (24.2-36.6) 09/27/18 10:21 Sodium 142 mmol/L (137-145) 09/27/18 06:28 Potassium 4.8 mmol/L (3.6-5.0) 09/27/18 06:28 Chloride 110.5 mmol/L (98-107) H 09/27/18 06:28 Carbon Dioxide 24 mmol/L (22-30) 09/27/18 06:28 Anion Gap 12 mmol/L 09/27/18 06:28 BUN 23 mg/dL (9-20) H 09/27/18 06:28 Creatinine 1.0 mg/dL (0.8-1.5) 09/27/18 06:28 Estimated GFR > 60 ml/min 09/27/18 06:28 BUN/Creatinine Ratio 23 % 09/27/18 06:28 Glucose 81 mg/dL (75-100) 09/27/18 06:28 POC Glucose 91 (70-105) 09/09/18 07:18 Lactic Acid 1.30 mmol/L (0.7-2.0) 09/05/18 03:50 Calcium 8.5 mg/dL (8.4-10.2) 09/27/18 06:28 Iron 26 ug/dL (49-181) L 09/07/18 10:38 TIBC 212 mcg/dL (250-450) L 09/07/18 10:38 Ferritin 2762.0 ng/mL (13.0-400.0) H 09/07/18 10:38 Total Bilirubin 0.20 mg/dL (0.1-1.2) 09/26/18 14:59 Direct Bilirubin < 0.2 mg/dL (0-0.2) 09/08/18 13:43 Indirect Bilirubin 0.0 mg/dL 09/06/18 10:40 AST 364 units/L (5-40) H 09/26/18 14:59 ALT 128 units/L (7-56) H 09/26/18 14:59 Alkaline Phosphatase 311 units/L (35-129) H 09/26/18 14:59 Ammonia 51.0 umol/L (25-60) 09/12/18 12:28 Total Creatine Kinase 101 units/L (55-170) 09/04/18 21:00 Troponin T < 0.010 ng/mL (0.00-0.029) 09/10/18 12:14 Total Protein 6.9 g/dL (6.3-8.2) 09/26/18 14:59 Albumin 3.1 g/dL (3.9-5) L 09/26/18 14:59 Albumin/Globulin Ratio 0.8 % 09/26/18 14:59 Vitamin B12 1010 pg/mL (211-911) H 09/26/18 07:54 Folate 7.69 ng/mL (7.3-26.0) 09/26/18 07:54 TSH 0.960 mlU/mL (0.270-4.200) 09/04/18 21:00 Urine Color Yellow (Yellow) 09/04/18 23:30 Urine Turbidity Clear (Clear) 09/04/18 23:30 Urine pH 6.0 (5.0-7.0) 09/04/18 23:30 Ur Specific Draper 1.012 (1.003-1.030) 09/04/18 23:30 Urine Protein <15 mg/dl mg/dL (Negative) 09/04/18 23:30 Urine Glucose (UA) Neg mg/dL (Negative) 09/04/18 23:30 Urine Ketones Neg mg/dL (Negative) 09/04/18 23:30 Urine Blood Neg (Negative) 09/04/18 23:30 Urine Nitrite Neg (Negative) 09/04/18 23:30 Urine Bilirubin Neg (Negative) 09/04/18 23:30 Urine Urobilinogen < 2.0 mg/dL (<2.0) 09/04/18 23:30 Ur Leukocyte Esterase Neg (Negative) 09/04/18 23:30 Urine WBC (Auto) 1.0 /HPF (0.0-6.0) 09/04/18 23:30 Urine RBC (Auto) 2.0 /HPF (0.0-6.0) 09/04/18 23:30 Urine Bacteria (Auto) 1+ /HPF (Negative) 09/04/18 23:30 Urine Mucus Few /HPF 09/04/18 23:30 Urine Opiates Screen Presumptive negative 09/04/18 23:30 Urine Methadone Screen Presumptive negative 09/04/18 23:30 Ur Barbiturates Screen Presumptive negative 09/04/18 23:30 Ur Phencyclidine Scrn Presumptive negative 09/04/18 23:30 Ur Amphetamines Screen Presumptive negative 09/04/18 23:30 U Benzodiazepines Scrn Presumptive negative 09/04/18 23:30 Urine Cocaine Screen Presumptive negative 09/04/18 23:30 U Marijuana (THC) Screen Presumptive negative 09/04/18 23:30 Drugs of Abuse Note Disclamer 09/04/18 23:30 Plasma/Serum Alcohol < 0.01 % (0-0.07) 09/04/18 21:00 JAMEEL Screen Negative (Negative) 09/05/18 16:19 Sm (Starkey) Antibody <1.0 AI (<1.0) 09/05/18 16:19 Mitochondria M2 Ab <=20.0 U (<=20.0) 09/05/18 16:19 CMV DNA PCR log junior copywriter/mL See scanned results 09/08/18 16:50 Hepatitis A IgM Ab Non-reactive (NonReactive) 09/08/18 06:39 Hep Bs Antigen Non-reactive (Negative) 09/08/18 06:39 Hep B Core IgM Ab Non-reactive (NonReactive) 09/08/18 06:39 Hepatitis C Antibody Non-reactive (NonReactive) 09/08/18 06:39 Miscellaneous Test Flexitest 1 09/09/18 07:03 Active Medications - Current Medications Current Medications: Generic Name Dose Route Start Last Admin Trade Name Freq PRN Reason Stop Dose Admin Acetaminophen 650 mg 09/05/18 02:48 09/09/18 06:44 Tylenol PO 650 mg Q4H PRN Administration Pain MILD(1-3)/Fever >100.5/VILLAREAL Emtricitabine 200 mg 09/20/18 14:00 09/26/18 12:05 Emtriva PO 200 mg QDAY GLEN Administration Famotidine 10 mg 09/22/18 22:00 09/26/18 23:25 Pepcid PO 10 mg BID GLEN Administration Sodium Chloride 1,000 mls @ 100 mls/hr 09/16/18 08:00 09/23/18 12:46 Nacl 0.9% 1000 Ml IV 100 mls/hr DIRECT GLEN Administration Micafungin Sodium 100 mg/ 100 mls @ 100 mls/hr 09/24/18 14:00 09/26/18 12:53 Sodium Chloride IV 100 mls/hr QDAY GLEN Administration Protocol Megestrol Acetate 400 mg 09/24/18 10:00 09/26/18 11:23 Megace PO 400 mg QDAY GLEN Administration Midodrine 10 mg 09/05/18 19:00 09/27/18 08:35 Proamatine PO 10 mg TID@0800,1200,1600 GLEN Administration Nystatin 500,000 unit 09/10/18 20:00 09/26/18 23:25 Nystatin PO 500,000 unit TID GLEN Administration Ondansetron HCl 4 mg 09/05/18 02:48 09/10/18 13:06 Zofran IV 4 mg Q8H PRN Administration Nausea And Vomiting Sodium Chloride 10 ml 09/05/18 10:00 09/26/18 23:25 Sodium Chloride Flush Syringe 10 Ml IV 10 ml BID GLEN Administration Sodium Chloride 10 ml 09/05/18 02:48 Sodium Chloride Flush Syringe 10 Ml IV PRN PRN LINE FLUSH Tenofovir Disoproxil Fumarate 300 mg 09/20/18 14:00 09/26/18 11:55 Viread PO 300 mg QDAY GLEN Administration Trimethoprim/Sulfamethoxazole 1 each 09/14/18 10:00 09/26/18 12:11 Bactrim Ds PO 1 each DAILY GLEN Administration Nutrition/Malnutrition Assess - Dietary Evaluation Nutrition/Malnutrition Findings: Nutrition Notes Start: 09/06/18 15:57 Freq: Status: Active Protocol: Document 09/23/18 10:34 CP (Rec: 09/23/18 10:35 CP [id number]) Co-Sign 09/23/18 10:34 LP Nutrition Notes Initial or Follow up Reassessment Other Pertinent Diagnosis HIV/AIDS, noncompliance, oral candidiasis Current Diet Regular + Ensure Clear daily Labs/Tests Reviewed Pertinent Medications Reviewed Height 5 ft 3 in Weight 47.6 kg [place] Body Weight (kg) 56.36 BMI 18.6 Subjective/Other Information Pt hands were restrained during time of visit. Pt reported that his appetite was okay and he didn't eat due to the restraints. Percent of energy/protein needs met: 0%/0% Burn Absent Trauma Absent #1 Nutrition Diagnosis Malnutrition Diagnosis Progress(for reassessment Continues documentation) Is patient on ventilator? No Is Patient Ambulatory and/or Out of Bed No REE-([facility]-confined to bed) 1528.812 Calculation Used for Recommendations [facility] Additional Notes Pro needs 1.2-1.5g/k-69 g /day Fluid needs 1ml/kcal Nutrition Intervention Change Diet Order: Continue current or TF consult Add Supplement/Snack (indicate name/kcal Ensure Clear 1 daily /protein ) Provides kCal: 240 Provides Protein (gm) 8 Goal #1 Meet at least 75% of calorie and protein needs Anticipated Discharge Needs: Regular diet Follow-Up By: 09/27/18 Additional Comments Follow for PO and ONS intakes
[2018-09-27] MEDS: EMTRIVA PO SCH (12:27)
[2018-09-27] MEDS: SODIUM CHLORIDE FLUSH SYRINGE 10 ML IV SCH ×2 (12:28→22:24)
[2018-09-27] MEDS: BACTRIM DS PO SCH (12:28)
[2018-09-27] MEDS: PEPCID PO SCH ×2 (12:28→22:23)
[2018-09-27] MEDS: MEGACE PO SCH (12:28)
[2018-09-27] MEDS: TIVICAY PO SCH (12:28)
[2018-09-27] MEDS: VIREAD PO SCH (12:29)
--- NOTE | 2018-09-27 12:38 | Progress Note ---
Assessment and Plan Culture 09/08/2018 Blood culture: no growth 09/08/2018 Serum Cr Ag: negative 09/09/2018 Blood culture: no growth thus far 09/09/2018 urine culture no growth Fungal blood culture: no growth to date A/P: 42 year old male, know to ID from previous admissions on 06/23/18-06/19/18 and 07/18/18- 08/04/18 for pneumonia, HIV/AIDS, severe oral candidiasis and diarrhea. CD4 count 11. Viral Load [id number]. HIV genotype 06/18/2018 with few resistance mutations. CMV negative. Patient remains noncompliant with his HAART therapy. N ow admitted with: 1. Altered Mental Status/Acute Encephalopathy: Improved. 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 CT head shows no acute intracranial abnormality. + chronic maxillary and ethmoid sinusitis. 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 Crypto Ag is negative. TTE shows no valvular vegetation, EF 30-35 %.Fungitell: negative. CMV DNR - <200 2. Oral Candidiasis: better on micafungin; White plaque on the oropharynx, tongue and inner and outer portion of the lips. h/o resistant Carolann. Continue Nystatin. 3. HIV/AIDS: Last admission in June CD4 count 11. Viral load high. Prognosis is poor.HIV therapy started 09/20/18 with Truvada + Tivicay. Currently compliant with medication regimen at hospital. 4. Severe Malnutrition: related to HIV AIDS 5. Transaminitis: worsening ? unclear etiology. Abdominal ultrasound unremarkable. CT abdomen showing possible enteritis and somewhat inhomogenous liver. may be due to ischemic hepatitis, HIV/AIDS hepatopathy, infectious etiology with viral hepatitis, vs drug toxicity- GI following. Stable to i mproving. Evaluating for disseminated MAC, fungal/mycolytic blood cultures in process. HAV, HBV, HCV - nonreactive 6. New Fevers : Resolved. 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 CAP vs PCP: Chest CT shows Bilateral pneumonia with findings most prominent in the left lower lobe as described. Bronchiectatic changes in left lower lobe noted also. Scattered blebs in the left lung. Fungitell negative, so PCP quite less likely. bilateral ground glass opacities could be fluid given cardiomyopathy and low EF. 8. Pancytopenia: better today; likely from untreated HIV and AIDS. Antiretroviral treatment started 09/20/18. Plan: -monitor LFTs, repeat viral hepatitis panel and RUQ US -stop bactrim as worsening LFTs and pancytopenia -start mepron fro PJP prophylaxis -continue nystatin swish and swallow -continue Micafungin 100mg IV q day D4 -f/u AFB fungal blood culture -Continue Truvada + Tivicay -Request bone marrow biopsy for histopath and fungal AFB stain. Appreciate Hem/onc consult -CMV, DNA, PCR blood, HHV 8 PCR in serum - ordered on 09/24 Will follow Sofia Landrum MD Infectious Diseases [employer] [facility] M [phone] O [phone] Subjective Date of service: 09/27/18 Principal diagnosis: severe sepsis, hypotension, acute encephaloapthy, HIV-AIDS Interval history: Patient feels better, no fever, drinking liquids. Objective - Exam Narrative Exam: General appearance: Alert in NAD Eyes: anicteric sclerae, moist conjunctivae; no lid-lag; PERRLA HENT: Atraumatic; oropharynx clear Neck: Trachea midline; supple, no thyromegaly or lymphadenopathy Lungs: CTA, with normal respiratory effort and no intercostal retractions CV: RRR, no murmurs Abdomen: Soft, non-tender; no masses or hepatosplenomegaly Extremities: mild deyanira feet edema Skin: Normal temperature, turgor and texture; no rash, ulcers or subcutaneous nodules Psych: no agitated. Neuro: alert and oriented x 2 - Constitutional Vitals: Vital Signs Temp Pulse Resp BP Pulse Ox 97.4 F L 61 18 115/43 96 09/27/18 11:51 09/27/18 11:51 09/27/18 11:51 09/27/18 11:51 09/27/18 11:51 Temperature -Last 24 Hours Temperature 97.4 F Temperature 97.7 F Temperature 99.1 F Temperature 98.3 F - Labs CBC & Chem 7: 09/27/18 06:28 09/27/18 06:28 Labs: Abnormal lab results 09/26/18 09/26/18 09/27/18 Range/Units 14:59 14:59 06:28 WBC 2.0 L 2.0 L (4.5-11.0) K/mm3 RBC 2.85 L 2.88 L (3.65-5.03) M/mm3 Hgb 8.3 L 8.4 L (11.8-15.2) gm/dl Hct 25.6 L 25.5 L (35.5-45.6) % RDW 20.2 H 19.4 H (13.2-15.2) % Plt Count 83 L D 84 L (140-440) K/mm3 Lymphocytes % (Manual) 11.0 L (13.4-35.0) % Monocytes % (Manual) 19.0 H (0.0-7.3) % Seg Neutrophils # Man 1.3 L (1.8-7.7) K/mm3 Lymphocytes # (Manual) 0.2 L (1.2-5.4) K/mm3 Chloride 108.0 H (98-107) mmol/L BUN (9-20) mg/dL Glucose 102 H (75-100) mg/dL AST 364 H (5-40) units/L ALT 128 H (7-56) units/L Alkaline Phosphatase 311 H (35-129) units/L Albumin 3.1 L (3.9-5) g/dL 09/27/18 Range/Units 06:28 WBC (4.5-11.0) K/mm3 RBC (3.65-5.03) M/mm3 Hgb (11.8-15.2) gm/dl Hct (35.5-45.6) % RDW (13.2-15.2) % Plt Count (140-440) K/mm3 Lymphocytes % (Manual) (13.4-35.0) % Monocytes % (Manual) (0.0-7.3) % Seg Neutrophils # Man (1.8-7.7) K/mm3 Lymphocytes # (Manual) (1.2-5.4) K/mm3 Chloride 110.5 H (98-107) mmol/L BUN 23 H (9-20) mg/dL Glucose (75-100) mg/dL AST (5-40) units/L ALT (7-56) units/L Alkaline Phosphatase (35-129) units/L Albumin (3.9-5) g/dL
[2018-09-27 12:48] LABS: Basophils % (Manual) 0 % (0.0-1.8); Eosinophils % (Manual) 0 % (0.0-4.3); Total Cells Counted 100
[2018-09-27 12:49] LABS: Hypochromasia 1+; Ovalocytes 1+; Platelet Estimate Consistent w Auto
[2018-09-27] MEDS: NYSTATIN PO SCH ×3 (14:06→22:23)
[2018-09-27] MEDS: MYCAMINE 100 MG in NACL 0.9% 100 ML IV SCH (14:24)
[2018-09-27 16:50] LABS: Hepatitis B Surface Antigen Non-Reactive (Negative); Hepatitis C Virus Antibody Non-Reactive (NonReactive)
[2018-09-27 17:18] LABS: Heparin-Induced Platelet Antib Negative (Negative); Unfractionated Heparin Negative (Negative)
--- NOTE | 2018-09-27 19:24 | Progress Note ---
Assessment and Plan .Patient awake and weak, resting at this time on room air. No acute respiratory distress. O2 saturation 100%. Patient aferbile and has leukopenia. - Patient Problems (1) Pneumonia Current Visit: Yes Status: Acute Qualifiers: Pneumonia type: due to unspecified organism Laterality: left Lung location: lower lobe of lung Qualified Code(s): J18.1 - Lobar pneumonia, unspecified organism Plan to address problem: Patient was on bactium. (2) AIDS Current Visit: Yes Status: Chronic Plan to address problem: Management as per infectious diseases. (3) Altered mental status Current Visit: Yes Status: Acute Plan to address problem: Management as per primary care and neurology. (4) Oral candidiasis Current Visit: Yes Status: Acute Plan to address problem: Patient getting nystatin. Subjective Date of service: 09/27/18 Principal diagnosis: severe sepsis, hypotension, acute encephaloapthy, HIV-AIDS Interval history: Patient awake and weak, resting at this time on room air. No acute respiratory distress. O2 saturation 100%. Patient aferbile and has leukopenia. Objective Vital Signs - 12hr 09/27/18 09/27/18 09/27/18 08:11 08:22 11:45 Temperature 97.7 F Pulse Rate 66 74 Respiratory 14 Rate Blood Pressure 74/39 88/56 O2 Sat by Pulse 98 97 96 Oximetry 09/27/18 09/27/18 11:51 16:30 Temperature 97.4 F L 97.9 F Pulse Rate 61 62 Respiratory 18 18 Rate Blood Pressure 115/43 87/61 O2 Sat by Pulse 96 96 Oximetry Constitutional: no acute distress, alert, other (Weak) Eyes: non-icteric ENT: oropharynx moist, oropharyngeal exudate pre, other (mallampati 2) Neck: supple, no lymphadenopathy, no JVD, other Ascultation: Bilateral: diminished breath sounds, other (Prolonged expiratory phase.) Cardiovascular: regular rate and rhythm Gastrointestinal: normoactive bowel sounds, soft, non-tender, non-distended Integumentary: normal Extremities: no cyanosis, no edema, pulses normal, no ischemia or petechiae Neurologic: non-focal exam (grossly), pupils equal and round, other (weak; mild cognitive dysfunction) Psychiatric: other (affect flat) CBC and BMP: 09/27/18 06:28 09/27/18 06:28 ABG, PT/INR, D-dimer: PT/INR, D-dimer PT 12.8 Sec. (12.2-14.9) 09/27/18 10:21 INR 0.91 (0.87-1.13) 09/27/18 10:21 Abnormal lab findings: Abnormal Labs 09/04/18 09/04/18 09/04/18 21:00 21:00 22:32 WBC RBC 3.23 L Hgb 9.6 L Hct 28.9 L RDW 18.8 H Plt Count Lymph % (Auto) Williamson % (Auto) 12.5 H Lymph # 0.7 L Seg Neutrophils % 72.4 H Seg Neuts % (Manual) Lymphocytes % (Manual) Monocytes % (Manual) Nucleated RBC % Seg Neutrophils # Man Lymphocytes # (Manual) PT Sodium Potassium Chloride 109.9 H Carbon Dioxide 21 L BUN 31 H Creatinine Glucose Lactic Acid 2.40 H* Calcium 8.2 L Iron TIBC Ferritin AST 200 H ALT 136 H Alkaline Phosphatase 138 H Ammonia Total Protein Albumin 3.5 L Vitamin B12 09/04/18 09/05/18 09/05/18 22:32 16:19 16:19 WBC RBC Hgb Hct RDW Plt Count Lymph % (Auto) Williamson % (Auto) Lymph # Seg Neutrophils % Seg Neuts % (Manual) Lymphocytes % (Manual) Monocytes % (Manual) Nucleated RBC % Seg Neutrophils # Man Lymphocytes # (Manual) PT Sodium Potassium Chloride 112.4 H Carbon Dioxide 19 L BUN Creatinine Glucose Lactic Acid Calcium 8.1 L Iron TIBC 223 L Ferritin AST 241 H ALT 138 H Alkaline Phosphatase Ammonia 64.0 H Total Protein Albumin 3.1 L Vitamin B12 09/05/18 09/06/18 09/06/18 16:19 10:40 10:40 WBC 2.4 L RBC 2.67 L Hgb 7.7 L Hct 23.7 L RDW 18.7 H Plt Count 135 L Lymph % (Auto) 10.0 L Williamson % (Auto) 8.4 H Lymph # 0.2 L Seg Neutrophils % 81.1 H Seg Neuts % (Manual) Lymphocytes % (Manual) Monocytes % (Manual) Nucleated RBC % Seg Neutrophils # Man Lymphocytes # (Manual) PT Sodium Potassium Chloride 112.1 H Carbon Dioxide 19 L BUN Creatinine 0.7 L Glucose Lactic Acid Calcium 7.8 L Iron TIBC Ferritin 2880.0 H AST 263 H ALT 143 H Alkaline Phosphatase Ammonia Total Protein 6.1 L Albumin 2.8 L Vitamin B12 09/07/18 09/07/18 09/08/18 10:38 10:38 06:39 WBC RBC 2.86 L Hgb 8.3 L Hct 25.2 L RDW 18.3 H Plt Count 123 L Lymph % (Auto) 6.1 L Williamson % (Auto) Lymph # 0.3 L Seg Neutrophils % 87.3 H Seg Neuts % (Manual) Lymphocytes % (Manual) Monocytes % (Manual) Nucleated RBC % Seg Neutrophils # Man Lymphocytes # (Manual) PT Sodium Potassium Chloride Carbon Dioxide BUN Creatinine Glucose Lactic Acid Calcium Iron 26 L TIBC 212 L Ferritin 2762.0 H AST ALT Alkaline Phosphatase Ammonia Total Protein Albumin Vitamin B12 09/08/18 09/08/18 09/09/18 06:39 13:43 07:03 WBC RBC Hgb Hct RDW Plt Count Lymph % (Auto) Williamson % (Auto) Lymph # Seg Neutrophils % Seg Neuts % (Manual) Lymphocytes % (Manual) Monocytes % (Manual) Nucleated RBC % Seg Neutrophils # Man Lymphocytes # (Manual) PT Sodium Potassium 3.2 L 3.5 L Chloride 111.9 H 108.6 H Carbon Dioxide 13 L 15 L BUN 6 L 4 L Creatinine Glucose 118 H Lactic Acid Calcium 7.5 L 7.5 L Iron TIBC Ferritin AST 117 H 130 H ALT 87 H 86 H Alkaline Phosphatase Ammonia Total Protein 5.6 L 6.0 L Albumin 2.6 L 2.6 L Vitamin B12 09/09/18 09/10/18 09/10/18 07:31 04:26 04:26 WBC 3.5 L 2.1 L RBC 2.82 L 3.10 L Hgb 8.2 L 9.0 L Hct 24.6 L 27.1 L RDW 18.8 H 18.6 H Plt Count 136 L 139 L Lymph % (Auto) Williamson % (Auto) Lymph # Seg Neutrophils % Seg Neuts % (Manual) 77.0 H Lymphocytes % (Manual) 11.0 L Monocytes % (Manual) 11.0 H Nucleated RBC % Seg Neutrophils # Man 1.6 L Lymphocytes # (Manual) 0.2 L PT Sodium Potassium Chloride 112.7 H Carbon Dioxide 14 L BUN 5 L Creatinine Glucose 109 H Lactic Acid Calcium 7.7 L Iron TIBC Ferritin AST 110 H ALT 76 H Alkaline Phosphatase Ammonia Total Protein 6.0 L Albumin 2.8 L Vitamin B12 09/11/18 09/12/18 09/13/18 05:22 12:28 07:23 WBC 1.1 L* RBC 2.82 L Hgb 8.2 L Hct 25.5 L RDW 19.5 H Plt Count 103 L Lymph % (Auto) Williamson % (Auto) Lymph # Seg Neutrophils % Seg Neuts % (Manual) Lymphocytes % (Manual) Monocytes % (Manual) 18.0 H Nucleated RBC % Seg Neutrophils # Man 0.6 L Lymphocytes # (Manual) 0.3 L PT 15.1 H Sodium 133 L Potassium 3.5 L Chloride 108.8 H Carbon Dioxide 14 L BUN 6 L Creatinine Glucose 123 H Lactic Acid Calcium 7.4 L Iron TIBC Ferritin AST 126 H ALT 77 H Alkaline Phosphatase Ammonia Total Protein 5.7 L Albumin 2.6 L Vitamin B12 09/15/18 09/15/18 09/17/18 00:51 04:31 10:52 WBC 1.2 L* 1.2 L* RBC 3.38 L 3.03 L Hgb 9.7 L 8.9 L Hct 29.5 L 27.2 L RDW 19.0 H 19.5 H Plt Count 95 L 59 L Lymph % (Auto) Williamson % (Auto) Lymph # Seg Neutrophils % Seg Neuts % (Manual) Lymphocytes % (Manual) Monocytes % (Manual) 24.0 H 14.0 H Nucleated RBC % 2.0 H Seg Neutrophils # Man 0.6 L 0.8 L Lymphocytes # (Manual) 0.3 L 0.2 L PT Sodium Potassium Chloride 112.0 H Carbon Dioxide 13 L BUN Creatinine Glucose 65 L Lactic Acid Calcium Iron TIBC Ferritin AST ALT Alkaline Phosphatase Ammonia Total Protein Albumin Vitamin B12 09/21/18 09/24/18 09/26/18 15:26 00:33 07:54 WBC 1.6 L* 0.7 L* RBC 2.94 L 2.67 L Hgb 8.8 L 7.8 L Hct 26.3 L 23.8 L RDW 20.0 H 20.3 H Plt Count 26 L 28 L Lymph % (Auto) Williamson % (Auto) Lymph # Seg Neutrophils % Seg Neuts % (Manual) Lymphocytes % (Manual) Monocytes % (Manual) 12.0 H 10.0 H Nucleated RBC % Seg Neutrophils # Man 1.0 L 0.4 L Lymphocytes # (Manual) 0.4 L 0.1 L PT Sodium Potassium Chloride Carbon Dioxide BUN Creatinine Glucose Lactic Acid Calcium Iron TIBC Ferritin AST ALT Alkaline Phosphatase Ammonia Total Protein Albumin Vitamin B12 1010 H 09/26/18 09/26/18 09/27/18 14:59 14:59 06:28 WBC 2.0 L 2.0 L RBC 2.85 L 2.88 L Hgb 8.3 L 8.4 L Hct 25.6 L 25.5 L RDW 20.2 H 19.4 H Plt Count 83 L D 84 L Lymph % (Auto) Williamson % (Auto) Lymph # Seg Neutrophils % Seg Neuts % (Manual) 72.0 H Lymphocytes % (Manual) 11.0 L Monocytes % (Manual) 19.0 H 10.0 H Nucleated RBC % Seg Neutrophils # Man 1.3 L 1.4 L Lymphocytes # (Manual) 0.2 L 0.3 L PT Sodium Potassium Chloride 108.0 H Carbon Dioxide BUN Creatinine Glucose 102 H Lactic Acid Calcium Iron TIBC Ferritin AST 364 H ALT 128 H Alkaline Phosphatase 311 H Ammonia Total Protein Albumin 3.1 L Vitamin B12 09/27/18 06:28 WBC RBC Hgb Hct RDW Plt Count Lymph % (Auto) Williamson % (Auto) Lymph # Seg Neutrophils % Seg Neuts % (Manual) Lymphocytes % (Manual) Monocytes % (Manual) Nucleated RBC % Seg Neutrophils # Man Lymphocytes # (Manual) PT Sodium Potassium Chloride 110.5 H Carbon Dioxide BUN 23 H Creatinine Glucose Lactic Acid Calcium Iron TIBC Ferritin AST ALT Alkaline Phosphatase Ammonia Total Protein Albumin Vitamin B12 Allied health notes reviewed: nursing
[2018-09-28 06:40] LABS: Hematocrit 24.6 % (35.5-45.6); Hemoglobin 8.1 gm/dl (11.8-15.2); Mean Corpuscular HGB Conc 33 % (32-34); Mean Corpuscular Volume 90 fl (84-94); Platelet Count 117 K/mm3 (140-440); Red Blood Count 2.74 M/mm3 (3.65-5.03)
[2018-09-28 06:41] LABS: Red Cell Distribution Width 20.3 % (13.2-15.2)
[2018-09-28 07:03] LABS: BUN/Creatinine Ratio 25; Blood Urea Nitrogen 27 mg/dL (9-20); Hemolysis Index 9
--- NOTE | 2018-09-28 08:52 | Ultrasound Report ---
ULTRASOUND ABDOMEN LIMITED: TECHNIQUE: Transabdominal ultrasound with color Doppler interrogation. HISTORY: Right upper quadrant ultrasound with worsening LFTs. COMPARISON: CT abdomen with contrast dated 09/06/18. FINDINGS: LIVER: Normal. BILIARY SYSTEM: Normal. The CBD measures 2.2 mm. PANCREAS: Normal. RIGHT KIDNEY: The right kidney is slightly echogenic but normal size. No focal lesion or hydronephrosis. PROXIMAL AORTA: Normal. ASCITES: None. IMPRESSION: Unremarkable liver and biliary system. Mild medical renal disease.
[2018-09-28 08:53] LABS: Basophils % (Manual) 0 % (0.0-1.8); Eosinophils % (Manual) 0 % (0.0-4.3); Total Cells Counted 100
[2018-09-28 08:54] LABS: Anisocytosis 1+; Ovalocytes 2+; Poikilocytosis 3+; Tear Drop Cells Few
[2018-09-28 08:55] LABS: Platelet Estimate Consistent w Auto
[2018-09-28] MEDS: NYSTATIN PO SCH ×4 (09:00→23:01)
[2018-09-28] MEDS: PROAMATINE PO SCH ×5 (09:21→19:23)
[2018-09-28] MEDS ORDERED: SUBLIMAZE IV NR (09:30)
[2018-09-28] MEDS ORDERED: VERSED IV NR (09:30)
--- NOTE | 2018-09-28 10:01 | Progress Note ---
Assessment and Plan Culture 09/08/2018 Blood culture: no growth 09/08/2018 Serum Cr Ag: negative 09/09/2018 Blood culture: no growth thus far 09/09/2018 urine culture no growth Fungal blood culture: no growth to date A/P: 42 year old male, know to ID from previous admissions on 06/23/18-06/19/18 and 07/18/18- 08/04/18 for pneumonia, HIV/AIDS, severe oral candidiasis and diarrhea. CD4 count 11. Viral Load [id number]. HIV genotype 06/18/2018 with few resistance mutations. CMV negative. Patient remains noncompliant with his HAART therapy. Now admitted with: 1. Altered Mental Status/Acute Encephalopathy: Continuing. 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 CT head shows no acute intracranial abnormality. + chronic maxillary and ethmoid sinusitis. MRI images showing brain atrophy, no focal lesions to suggest toxoplasma, PML, ventriculitis, [employer] lymphoma or other space occupying lesions. Crypto Ag is negative. TTE shows no valvular vegetation, EF 30-35 %.Fungitell: negative. CMV DNR - <200 2. Oral Candidiasis: better on micafungin; White plaque on the oropharynx, tongue and inner and outer portion of the lips. h/o resistant Carolann. Continue Nystatin. 3. HIV/AIDS: Last admission in June CD4 count 11. Viral load high. Prognosis is poor.HIV therapy started 09/20/18 with Truvada + Tivicay. Currently compliant with medication regimen at hospital. 4. Severe Malnutrition: related to HIV AIDS 5. Transaminitis: worsening ? unclear etiology. Abdominal ultrasound unremarkable. CT abdomen showing possible enteritis and somewhat inhomogenous liver. may be due to ischemic hepatitis, HIV/AIDS hepatopathy, infectious etiology with viral hepatitis, vs drug toxicity- GI following. Stable to improving. Evaluating for disseminated MAC, fungal/mycolytic blood cultures in process. HAV, HBV, HCV - nonreactive RUQ ultrasound - Unremarkable liver and biliary system. Mild medical renal disease. 6. New Fevers : Resolved. 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 CAP vs PCP: Chest CT shows Bilateral pneumonia with findings most prominent in the left lower lobe as described. Bronchiectatic changes in left lower lobe noted also. Scattered blebs in the left lung. Fungitell negative, so PCP quite less likely. bilateral ground glass opacities could be fluid given cardiomyopathy and low EF. 8. Pancytopenia: better today; likely from untreated HIV and AIDS. Antiretroviral treatment started 09/20/18. 9. Diarrhea: new onset. Will order OVA & Parasite antigen, Giardia and cryptosporidium antigen. Abdominal US ordered. Plan: - continue mepron fro PJP prophylaxis -continue nystatin swish and swallow -continue Micafungin 100mg IV q day D5 -f/u AFB fungal blood culture -Continue Truvada + Tivicay -Request bone marrow biopsy for histopath and fungal AFB stain. Appreciate Hem/ onc consult -CMV, DNA, PCR blood, HHV 8 PCR in serum - ordered on 09/24 OVA & Parasite antigen, Giardia and cryptosporidium antigen ordered for new onset diarrhea -Abdominal US ordered [facility] M: [id number] O:[phone] Subjective Date of service: 09/28/18 Principal diagnosis: severe sepsis, hypotension, acute encephaloapthy, HIV-AIDS Interval history: Patient seen and examined. Alert and confused. Not answering questions appropriately. Agitated. Objective - Exam Narrative Exam: Constitutional: Awake. Acute encephalopathy. . cachexia. No acute distress Head, Ears, Nose: Normocephalic, atraumatic. External ears, nose normal Eyes: Conjunctivae/corneas clear. No icterus. No ptosis. Neck: Supple, no meningeal signs Oral: dentition poor. ,Oral candidiasis , white plaque on the oropharynx, tongue, inner and outer portion of the lips- improved Cardiovascular: S1, S2 normal. Respiratory: Good air entry, clear to auscultation bilaterally GI: Soft,, + tenderness on exam, bowel sounds normal. No peritoneal signs. + diarrhea Musculoskeletal: No pedal edema, no cyanosis. Skin: No rash or abscess. Hem/Lymphatic: No palpable cervical or supraclavicular nodes. No lymphangitis Psych: Mood ok. Affect flat, Neurological: Awake. Alert. no acute distress - Constitutional Vitals: Vital Signs Temp Pulse Resp BP Pulse Ox 97.7 F 64 18 89/58 98 09/28/18 09:10 09/28/18 09:09 09/28/18 09:09 09/28/18 09:09 09/28/18 09:09 Temperature -Last 24 Hours Temperature 97.7 F Temperature 98.0 F Temperature 98.0 F Temperature 97.9 F Temperature 98.7 F Temperature 97.4 F - Labs CBC & Chem 7: 09/28/18 06:03 09/28/18 06:03 Labs: Abnormal lab results 09/27/18 09/28/18 09/28/18 Range/Units 06:28 06:03 06:03 WBC 2.1 L (4.5-11.0) K/mm3 RBC 2.74 L (3.65-5.03) M/mm3 Hgb 8.1 L (11.8-15.2) gm/dl Hct 24.6 L (35.5-45.6) % RDW 20.3 H (13.2-15.2) % Plt Count 117 L (140-440) K/mm3 Seg Neuts % (Manual) 72.0 H 78.0 H (40.0-70.0) % Monocytes % (Manual) 10.0 H 8.0 H (0.0-7.3) % Seg Neutrophils # Man 1.4 L 1.6 L (1.8-7.7) K/mm3 Lymphocytes # (Manual) 0.3 L 0.3 L (1.2-5.4) K/mm3 Chloride 108.4 H (98-107) mmol/L BUN 27 H (9-20) mg/dL
[2018-09-28] MEDS: MEGACE PO SCH (10:23)
[2018-09-28] MEDS: VIREAD PO SCH (10:24)
[2018-09-28] MEDS: TIVICAY PO SCH (10:25)
[2018-09-28] MEDS: PEPCID PO SCH ×2 (10:25→22:58)
[2018-09-28] MEDS: EMTRIVA PO SCH (10:26)
[2018-09-28] MEDS: MYCAMINE 100 MG in NACL 0.9% 100 ML IV SCH (10:29)
--- NOTE | 2018-09-28 11:13 | Hem/Onc Progress Note ---
Assessment and Plan 1. Anemia, leukopenia, thrombocytopenia. The question arises if this is HIV related, medication related, or infection related. deficiency Ix. bone marrow aspiration biopsy including culture. 2. smear evaluation. 3. Abnormal liver function test. 4. Iron is low, but ferritin is high, may be inflammatory etiology. 5. Human immunodeficiency virus. 6. The ID team following. 7. Micafungin. I had spoken with the pharmacy, based on the timing of the episodes. The patient was on IV Bactrim and then oral Bactrim, micafungin was used for a few days and stopped and restarted. 8. History of Carolann. 9. History of being treated for pneumonia. 10. Malnutrition. I will follow the patient during inpatient stay. eval bone marrow biopsy. 09/28 - wbc - plt better path called to say schistocytes - but plt better [id number] ordered BMBx not done as pt had low BP d/w ID - and dr gandhi cause of low plt unclear as plt improved befor oral bactrim could be stopped - Patient Problems (1) Pancytopenia Current Visit: Yes Status: Acute Subjective Date of service: 09/28/18 Principal diagnosis: low plt Interval history: no bleeding Objective - Constitutional Vitals: Last Vital Signs Temp 97.7 F 09/28/18 09:10 Pulse 64 09/28/18 09:09 Resp 18 09/28/18 09:09 BP 89/58 09/28/18 09:09 Pulse Ox 98 09/28/18 09:09 Pain Intensity (0-10): denies any pain General appearance: no acute distress Performance status: 4-completely disabled - EENT Eyes: EOM intact ENT: hearing intact Lymph node exam: negative cervical - Neck Neck: normal ROM - Respiratory Respiratory effort: Positive: normal Respiratory: bilateral: CTA - Cardiovascular Heart Sounds: Present: S1 & S2 Extremities: No edema - Gastrointestinal General gastrointestinal: Present: soft, non-tender Rectal Exam: deferred - Genitourinary Male genitourinary: Present: deferred - Integumentary Integumentary: warm - Musculoskeletal Musculoskeletal: generalized weakness - Neurologic Neurologic: moves all extremities - Labs Lab Results: Laboratory Results - last 24 hr 09/24/18 09/24/18 09/27/18 00:33 10:14 06:28 WBC RBC Hgb Hct MCV MCH MCHC RDW Plt Count Bleckley % (Auto) Add Manual Diff Complete Total Counted 100 Seg Neuts % (Manual) 72.0 H Band Neutrophils % 0 Lymphocytes % (Manual) 17.0 Reactive Lymphs % (Man) 1.0 Monocytes % (Manual) 10.0 H Eosinophils % (Manual) 0 Basophils % (Manual) 0 Metamyelocytes % 0 Myelocytes % 0 Promyelocytes % 0 Blast Cells % 0 Nucleated RBC % Not Reportable Seg Neutrophils # Man 1.4 L Band Neutrophils # 0.0 Lymphocytes # (Manual) 0.3 L Abs React Lymphs (Man) 0.0 Monocytes # (Manual) 0.2 Eosinophils # (Manual) 0.0 Basophils # (Manual) 0.0 Metamyelocytes # 0.0 Myelocytes # 0.0 Promyelocytes # 0.0 Blast Cells # 0.0 Pathologist Review WBC Morphology Not Reportable Hypersegmented Neuts Not Reportable Hyposegmented Neuts Not Reportable Hypogranular Neuts Not Reportable Smudge Cells Not Reportable Toxic Granulation Not Reportable Toxic Vacuolation Not Reportable Dohle Bodies Not Reportable Pelger-Huet Anomaly Not Reportable Giovanni Rods Not Reportable Platelet Estimate Consistent w auto Clumped Platelets Not Reportable Plt Clumps, EDTA Not Reportable Large Platelets Not Reportable Giant Platelets Not Reportable Platelet Satelliting Not Reportable Plt Morphology Comment Not Reportable RBC Morphology Not Reportable Dimorphic RBCs Not Reportable Polychromasia Not Reportable Hypochromasia 1+ Poikilocytosis Not Reportable Anisocytosis Not Reportable Microcytosis Not Reportable Macrocytosis Not Reportable Spherocytes Not Reportable Pappenheimer Bodies Not Reportable Sickle Cells Not Reportable Target Cells Not Reportable Tear Drop Cells Not Reportable Ovalocytes 1+ Helmet Cells Not Reportable Holbrook-Leonardo Bodies Not Reportable Hinton Rings Not Reportable Cinthya Cells Not Reportable Bite Cells Not Reportable Crenated Cell Not Reportable Elliptocytes Not Reportable Acanthocytes (Spur) Not Reportable Rouleaux Not Reportable Hemoglobin C Crystals Not Reportable Schistocytes Not Reportable Malaria parasites Not Reportable Carlos A Bodies Not Reportable Hem Pathologist Commnt No Heparin Anti-Xa, Unfract Negative Sodium Potassium Chloride Carbon Dioxide Anion Gap BUN Creatinine Estimated GFR BUN/Creatinine Ratio Glucose Calcium C-Reactive Protein Heparin-induced Plt Ab Negative UF Heparin High Dose 0 KIERAN UFH Low Dose 0.1 0 KIERAN UFH Low Dose 0.5 0 Hepatitis A IgM Ab Hep Bs Antigen Hep B Core IgM Ab Hepatitis C Antibody 09/27/18 09/27/18 09/28/18 15:56 15:56 06:03 WBC 2.1 L RBC 2.74 L Hgb 8.1 L Hct 24.6 L MCV 90 MCH 30 MCHC 33 RDW 20.3 H Plt Count 117 L Bleckley % (Auto) Custom Applicator Add Manual Diff Complete Total Counted 100 Seg Neuts % (Manual) 78.0 H Band Neutrophils % 0 Lymphocytes % (Manual) 14.0 Reactive Lymphs % (Man) 0 Monocytes % (Manual) 8.0 H Eosinophils % (Manual) 0 Basophils % (Manual) 0 Metamyelocytes % 0 Myelocytes % 0 Promyelocytes % 0 Blast Cells % 0 Nucleated RBC % Not Reportable Seg Neutrophils # Man 1.6 L Band Neutrophils # 0.0 Lymphocytes # (Manual) 0.3 L Abs React Lymphs (Man) 0.0 Monocytes # (Manual) 0.2 Eosinophils # (Manual) 0.0 Basophils # (Manual) 0.0 Metamyelocytes # 0.0 Myelocytes # 0.0 Promyelocytes # 0.0 Blast Cells # 0.0 Pathologist Review WBC Morphology Not Reportable Hypersegmented Neuts Not Reportable Hyposegmented Neuts Not Reportable Hypogranular Neuts Not Reportable Smudge Cells Not Reportable Toxic Granulation Not Reportable Toxic Vacuolation Not Reportable Dohle Bodies Not Reportable Pelger-Huet Anomaly Not Reportable Giovanni Rods Not Reportable Platelet Estimate Consistent w auto Clumped Platelets Not Reportable Plt Clumps, EDTA Not Reportable Large Platelets Not Reportable Giant Platelets Not Reportable Platelet Satelliting Not Reportable Plt Morphology Comment Not Reportable RBC Morphology Not Reportable Dimorphic RBCs Not Reportable Polychromasia Not Reportable Hypochromasia Not Reportable Poikilocytosis 3+ Anisocytosis 1+ Microcytosis Not Reportable Macrocytosis Not Reportable Spherocytes Not Reportable Pappenheimer Bodies Not Reportable Sickle Cells Not Reportable Target Cells Not Reportable Tear Drop Cells Few Ovalocytes 2+ Helmet Cells Not Reportable Holbrook-Leonardo Bodies Not Reportable [place] Rings Not Reportable [place]utherlin Cells Not Reportable Bite Cells Not Reportable Crenated Cell Not Reportable Elliptocytes 1+ Acanthocytes (Spur) Not Reportable Rouleaux Not Reportable Hemoglobin C Crystals Not Reportable Schistocytes Not Reportable Malaria parasites Not Reportable Carlos A Bodies Not Reportable Hem Pathologist Commnt No Heparin Anti-Xa, Unfract Sodium Potassium Chloride Carbon Dioxide Anion Gap BUN Creatinine Estimated GFR BUN/Creatinine Ratio Glucose Calcium C-Reactive Protein 0.30 Heparin-induced Plt Ab UF Heparin High Dose KIERAN UFH Low Dose 0.1 KIERAN UFH Low Dose 0.5 Hepatitis A IgM Ab Non-reactive Hep Bs Antigen Non-reactive Hep B Core IgM Ab Non-reactive Hepatitis C Antibody Non-reactive 09/28/18 06:03 WBC RBC Hgb Hct MCV MCH MCHC RDW Plt Count Bleckley % (Auto) Add Manual Diff Total Counted Seg Neuts % (Manual) Band Neutrophils % Lymphocytes % (Manual) Reactive Lymphs % (Man) Monocytes % (Manual) Eosinophils % (Manual) Basophils % (Manual) Metamyelocytes % Myelocytes % Promyelocytes % Blast Cells % Nucleated RBC % Seg Neutrophils # Man Band Neutrophils # Lymphocytes # (Manual) Abs React Lymphs (Man) Monocytes # (Manual) Eosinophils # (Manual) Basophils # (Manual) Metamyelocytes # Myelocytes # Promyelocytes # Blast Cells # Pathologist Review WBC Morphology Hypersegmented Neuts Hyposegmented Neuts Hypogranular Neuts Smudge Cells Toxic Granulation Toxic Vacuolation Dohle Bodies Pelger-Huet Anomaly Giovanni Rods Platelet Estimate Clumped Platelets Plt Clumps, EDTA Large Platelets Giant Platelets Platelet Satelliting Plt Morphology Comment RBC Morphology Dimorphic RBCs Polychromasia Hypochromasia Poikilocytosis Anisocytosis Microcytosis Macrocytosis Spherocytes Pappenheimer Bodies Sickle Cells Target Cells Tear Drop Cells Ovalocytes Helmet Cells Holbrook-Leonardo Bodies Hinton Rings Cinthya Cells Bite Cells Crenated Cell Elliptocytes Acanthocytes (Spur) Rouleaux Hemoglobin C Crystals Schistocytes Malaria parasites Carlos A Bodies Hem Pathologist Commnt Heparin Anti-Xa, Unfract Sodium 145 Potassium 4.6 Chloride 108.4 H Carbon Dioxide 24 Anion Gap 17 BUN 27 H Creatinine 1.1 Estimated GFR > 60 BUN/Creatinine Ratio 25 Glucose 91 Calcium 9.0 C-Reactive Protein Heparin-induced Plt Ab UF Heparin High Dose KIERAN UFH Low Dose 0.1 KIERAN UFH Low Dose 0.5 Hepatitis A IgM Ab Hep Bs Antigen Hep B Core IgM Ab Hepatitis C Antibody Medications & Allergies - Medications Allergies/Adverse Reactions: Allergies No Known Allergies Allergy (Verified 07/18/18 14:08) Home Medications: Home Medications Medication Instructions Recorded Confirmed Last Taken Type RX: Azithromycin [Zithromax TAB] 1,200 mg PO QWEEK #4 tablet 06/18/18 09/14/18 Unknown Rx RX: Pantoprazole [Protonix TAB] 40 mg PO DAILY #30 tablet 06/19/18 09/14/18 Unknown Rx RX: Nystas/Diphen/Xyl Visc/Mylanta 15 ml PO TID 14 Days oral.liqd 07/18/18 09/14/18 Unknown Rx [Magic Mouthwash] RX: Nystas/Diphen/Xyl Visc/Mylanta 15 ml PO TID 30 Days #1 udc 07/23/18 09/14/18 Unknown Rx [Magic Mouthwash] Sulfamethoxazole/Trimethoprim 1 each PO QDAY 30 Days #30 tablet 07/23/18 09/14/18 Unknown Rx [Bactrim DS TAB] RX: Posaconazole [Noxafil] 300 mg PO BID 1 Days #6 tablet. 08/03/18 09/14/18 Unknown Rx RX: Posaconazole [Noxafil] 300 mg PO QDAY 13 Days #39 08/03/18 09/14/18 Unknown Rx tablet. RX: Acyclovir [Zovirax Tab] 400 mg PO Q8H 30 Days #90 tab 08/04/18 09/14/18 Unknown Rx RX: Azithromycin [Zithromax TAB] 1,200 mg PO QDAY 30 Days #8 tablet 08/04/18 09/14/18 Unknown Rx RX: Loperamide [Imodium] 2 mg PO Q2H PRN #30 capsule 08/04/18 09/14/18 Unknown Rx RX: Midodrine HCl 2.5 mg PO DAILY #30 tablet 08/04/18 09/14/18 Unknown Rx Active Medications: Generic Name Dose Route Start Last Admin Trade Name Freq PRN Reason Stop Dose Admin Acetaminophen 650 mg 09/05/18 02:48 09/09/18 06:44 Tylenol PO 650 mg Q4H PRN Administration Pain MILD(1-3)/Fever >100.5/VILLAREAL Emtricitabine 200 mg 09/20/18 14:00 09/28/18 10:26 Emtriva PO 200 mg QDAY GLEN Administration Famotidine 10 mg 09/22/18 22:00 09/28/18 10:25 Pepcid PO 10 mg BID GLEN Administration Fentanyl 100 mcg 09/28/18 09:30 Sublimaze IV 09/28/18 16:00 ONCE NR Sodium Chloride 1,000 mls @ 100 mls/hr 09/16/18 08:00 09/23/18 12:46 Nacl 0.9% 1000 Ml IV 100 mls/hr DIRECT GLEN Administration Micafungin Sodium 100 mg/ 100 mls @ 100 mls/hr 09/24/18 14:00 09/28/18 10:29 Sodium Chloride IV 100 mls/hr QDAY GLEN Administration Protocol Megestrol Acetate 400 mg 09/24/18 10:00 09/28/18 10:23 Megace PO 400 mg QDAY GLEN Administration Midazolam HCl 5 mg 09/28/18 09:30 Versed IV 09/28/18 16:00 ONCE NR Midodrine 10 mg 09/05/18 19:00 09/28/18 10:25 Proamatine PO 10 mg TID@0800,1200,1600 GLEN Administration Nystatin 500,000 unit 09/10/18 20:00 09/27/18 22:23 Nystatin PO 500,000 unit TID GLEN Administration Ondansetron HCl 4 mg 09/05/18 02:48 09/10/18 13:06 Zofran IV 4 mg Q8H PRN Administration Nausea And Vomiting Sodium Chloride 10 ml 09/05/18 10:00 09/27/18 22:24 Sodium Chloride Flush Syringe 10 Ml IV 10 ml BID GLEN Administration Sodium Chloride 10 ml 09/05/18 02:48 Sodium Chloride Flush Syringe 10 Ml IV PRN PRN LINE FLUSH Tenofovir Disoproxil Fumarate 300 mg 09/20/18 14:00 09/28/18 10:24 Viread PO 300 mg QDAY GLEN Administration
[2018-09-28] MEDS: SODIUM CHLORIDE FLUSH SYRINGE 10 ML IV SCH ×2 (11:40→22:59)
--- NOTE | 2018-09-28 12:01 | Progress Note ---
Assessment and Plan Assessment and plan: HIV encephalopathy. CT head shows no acute intracranial abnormality. + chronic maxillary and ethmoid sinusitis. MRI images showing brain atrophy, no focal lesions to suggest toxoplasma, PML, ventriculitis, [employer] lymphoma or other space occupying lesions. Crypto Ag is negative. TTE shows no valvular vegetation, EF 30-35 %. -Fungitell: negative -CMV DNR - <200 Unfortunately, patient required restraints this morning due to agitation. Continue to monitor, educated nursing with reorientation. Chronic hypotension. 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 Cardiology with no further recommendations. Patient with grave prognosis, cardiology recommending conservative approach. Oral candidiasis. h/o resistant Carolann. improved. Continue Nystatin Severe protein calorie malnutrition. related to HIV AIDS. HIV/AIDS. Last admission in June CD4 count 11. Viral load high. Prognosis is poor. Agreed to go to SNF. HIV therapy started 09/20/18 with Truvada + Tivicay. Continue Bactrim DS daily. Transaminitis. Abdominal ultrasound unremarkable. CT abdomen showing possible enteritis and somewhat inhomogenous liver. may be due to ischemic hepatitis, HIV/AIDS hepatopathy, infectious etiology with viral hepatitis, vs drug toxicity- GI following. Stable to improving. Evaluating for disseminated MAC, fungal/mycolytic blood cultures in process. 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 TTE no valvular vegetation, EF 30-35% Bilateral pneumonia. Chest CT shows Bilateral pneumonia with findings most prominent in the left lower lobe as described. Bronchiectatic changes in left lower lobe noted also. Scattered blebs in the left lung. Fungitell negative, so PCP quite less likely. bilateral ground glass opacities could be fluid given cardiomyopathy and low EF. Pancytopenia with severe thrombocytopenia. Etiology secondary HIV/AIDS. ID recommends hematology consultation. Patient may need Neupogen. Check HIT panel Disposition. Awaiting SNF placement. Cardiology and ID recommend Hospice, but patient refuses. History Interval history: Patient seen and examined Medical records reviewed Patient has no new complaints Hospitalist Physical - Constitutional Vitals: Temp Pulse Resp BP Pulse Ox 97.7 F 64 18 89/58 98 09/28/18 09:10 09/28/18 09:09 09/28/18 09:09 09/28/18 09:09 09/28/18 09:09 General appearance: Present: no acute distress, well-nourished - EENT Eyes: Present: PERRL, EOM intact - Neck Neck: Present: supple, normal ROM - Respiratory Respiratory effort: normal Respiratory: bilateral: diminished, negative: rales, rhonchi, wheezing - Cardiovascular Rhythm: regular Heart Sounds: Present: S1 & S2 - Extremities Extremities: no ischemia, No edema - Abdominal General gastrointestinal: soft, non-tender, non-distended, normal bowel sounds - Integumentary Integumentary: Present: clear, warm - Psychiatric Psychiatric: appropriate mood/affect, cooperative - Neurologic Neurologic: CNII-XII intact, moves all extremities Results - Labs CBC & Chem 7: 09/28/18 06:03 09/28/18 06:03 Labs: Laboratory Last Values WBC 2.1 K/mm3 (4.5-11.0) L 09/28/18 06:03 RBC 2.74 M/mm3 (3.65-5.03) L 09/28/18 06:03 Hgb 8.1 gm/dl (11.8-15.2) L 09/28/18 06:03 Hct 24.6 % (35.5-45.6) L 09/28/18 06:03 MCV 90 fl (84-94) 09/28/18 06:03 MCH 30 pg (28-32) 09/28/18 06:03 MCHC 33 % (32-34) 09/28/18 06:03 RDW 20.3 % (13.2-15.2) H 09/28/18 06:03 Plt Count 117 K/mm3 (140-440) L 09/28/18 06:03 Lymph % (Auto) 6.1 % (13.4-35.0) L 09/08/18 06:39 [place] % (Auto) [employer]gl[employer] Al[employer] Operator 09/28/18 06:03 Eos % (Auto) 0.0 % (0.0-4.3) 09/08/18 06:39 Baso % (Auto) 0.2 % (0.0-1.8) 09/08/18 06:39 Lymph # 0.3 K/mm3 (1.2-5.4) L 09/08/18 06:39 [place] # 0.3 K/mm3 (0.0-0.8) 09/08/18 06:39 Eos # 0.0 K/mm3 (0.0-0.4) 09/08/18 06:39 Baso # 0.0 K/mm3 (0.0-0.1) 09/08/18 06:39 Add Manual Diff Complete 09/28/18 06:03 Total Counted 100 09/28/18 06:03 Seg Neutrophils % 87.3 % (40.0-70.0) H 09/08/18 06:39 Seg Neuts % (Manual) 78.0 % (40.0-70.0) H 09/28/18 06:03 Band Neutrophils % 0 % 09/28/18 06:03 Lymphocytes % (Manual) 14.0 % (13.4-35.0) 09/28/18 06:03 Reactive Lymphs % (Man) 0 % 09/28/18 06:03 Monocytes % (Manual) 8.0 % (0.0-7.3) H 09/28/18 06:03 Eosinophils % (Manual) 0 % (0.0-4.3) 09/28/18 06:03 Basophils % (Manual) 0 % (0.0-1.8) 09/28/18 06:03 Metamyelocytes % 0 % 09/28/18 06:03 Myelocytes % 0 % 09/28/18 06:03 Promyelocytes % 0 % 09/28/18 06:03 Blast Cells % 0 % 09/28/18 06:03 Nucleated RBC % Not Reportable 09/28/18 06:03 Seg Neutrophils # 4.5 K/mm3 (1.8-7.7) 09/08/18 06:39 Seg Neutrophils # Man 1.6 K/mm3 (1.8-7.7) L 09/28/18 06:03 Band Neutrophils # 0.0 K/mm3 09/28/18 06:03 Lymphocytes # (Manual) 0.3 K/mm3 (1.2-5.4) L 09/28/18 06:03 Abs React Lymphs (Man) 0.0 K/mm3 09/28/18 06:03 Monocytes # (Manual) 0.2 K/mm3 (0.0-0.8) 09/28/18 06:03 Eosinophils # (Manual) 0.0 K/mm3 (0.0-0.4) 09/28/18 06:03 Basophils # (Manual) 0.0 K/mm3 (0.0-0.1) 09/28/18 06:03 Metamyelocytes # 0.0 K/mm3 09/28/18 06:03 Myelocytes # 0.0 K/mm3 09/28/18 06:03 Promyelocytes # 0.0 K/mm3 09/28/18 06:03 Blast Cells # 0.0 K/mm3 09/28/18 06:03 Pathologist Review 09/24/18 00:33 WBC Morphology Not Reportable 09/28/18 06:03 Hypersegmented Neuts Not Reportable 09/28/18 06:03 Hyposegmented Neuts Not Reportable 09/28/18 06:03 Hypogranular Neuts Not Reportable 09/28/18 06:03 Smudge Cells Not Reportable 09/28/18 06:03 Toxic Granulation Not Reportable 09/28/18 06:03 Toxic Vacuolation Not Reportable 09/28/18 06:03 Dohle Bodies Not Reportable 09/28/18 06:03 Pelger-Huet Anomaly Not Reportable 09/28/18 06:03 Giovanni Rods Not Reportable 09/28/18 06:03 Platelet Estimate Consistent w auto 09/28/18 06:03 Clumped Platelets Not Reportable 09/28/18 06:03 Plt Clumps, EDTA Not Reportable 09/28/18 06:03 Large Platelets Not Reportable 09/28/18 06:03 Giant Platelets Not Reportable 09/28/18 06:03 Platelet Satelliting Not Reportable 09/28/18 06:03 Plt Morphology Comment Not Reportable 09/28/18 06:03 RBC Morphology Not Reportable 09/28/18 06:03 Dimorphic RBCs Not Reportable 09/28/18 06:03 Polychromasia Not Reportable 09/28/18 06:03 Hypochromasia Not Reportable 09/28/18 06:03 Poikilocytosis 3+ 09/28/18 06:03 Anisocytosis 1+ 09/28/18 06:03 Microcytosis Not Reportable 09/28/18 06:03 Macrocytosis Not Reportable 09/28/18 06:03 Spherocytes Not Reportable 09/28/18 06:03 Pappenheimer Bodies Not Reportable 09/28/18 06:03 Sickle Cells Not Reportable 09/28/18 06:03 Target Cells Not Reportable 09/28/18 06:03 Tear Drop Cells Few 09/28/18 06:03 Ovalocytes 2+ 09/28/18 06:03 Helmet Cells Not Reportable 09/28/18 06:03 Hol[place]-Phelan Bodies Not Reportable 09/28/18 06:03 [place] Rings Not Reportable 09/28/18 06:03 Cinthya Cells Not Reportable 09/28/18 06:03 Bite Cells Not Reportable 09/28/18 06:03 Crenated Cell Not Reportable 09/28/18 06:03 Elliptocytes 1+ 09/28/18 06:03 Acanthocytes (Spur) Not Reportable 09/28/18 06:03 Rouleaux Not Reportable 09/28/18 06:03 Hemoglobin C Crystals Not Reportable 09/28/18 06:03 Schistocytes Not Reportable 09/28/18 06:03 Malaria parasites Not Reportable 09/28/18 06:03 Carlos A Bodies Not Reportable 09/28/18 06:03 Hem Pathologist Commnt No 09/28/18 06:03 PT 12.8 Sec. (12.2-14.9) 09/27/18 10:21 INR 0.91 (0.87-1.13) 09/27/18 10:21 APTT 30.4 Sec. (24.2-36.6) 09/27/18 10:21 Heparin Anti-Xa, Unfract Negative (Negative) 09/24/18 10:14 Sodium 145 mmol/L (137-145) 09/28/18 06:03 Potassium 4.6 mmol/L (3.6-5.0) 09/28/18 06:03 Chloride 108.4 mmol/L (98-107) H 09/28/18 06:03 Carbon Dioxide 24 mmol/L (22-30) 09/28/18 06:03 Anion Gap 17 mmol/L 09/28/18 06:03 BUN 27 mg/dL (9-20) H 09/28/18 06:03 Creatinine 1.1 mg/dL (0.8-1.5) 09/28/18 06:03 Estimated GFR > 60 ml/min 09/28/18 06:03 BUN/Creatinine Ratio 25 % 09/28/18 06:03 Glucose 91 mg/dL (75-100) 09/28/18 06:03 POC Glucose 91 (70-105) 09/09/18 07:18 Lactic Acid 1.30 mmol/L (0.7-2.0) 09/05/18 03:50 Calcium 9.0 mg/dL (8.4-10.2) 09/28/18 06:03 Iron 26 ug/dL (49-181) L 09/07/18 10:38 TIBC 212 mcg/dL (250-450) L 09/07/18 10:38 Ferritin 2762.0 ng/mL (13.0-400.0) H 09/07/18 10:38 Total Bilirubin 0.20 mg/dL (0.1-1.2) 09/26/18 14:59 Direct Bilirubin < 0.2 mg/dL (0-0.2) 09/08/18 13:43 Indirect Bilirubin 0.0 mg/dL 09/06/18 10:40 AST 364 units/L (5-40) H 09/26/18 14:59 ALT 128 units/L (7-56) H 09/26/18 14:59 Alkaline Phosphatase 311 units/L (35-129) H 09/26/18 14:59 Ammonia 51.0 umol/L (25-60) 09/12/18 12:28 Total Creatine Kinase 101 units/L (55-170) 09/04/18 21:00 Troponin T < 0.010 ng/mL (0.00-0.029) 09/10/18 12:14 C-Reactive Protein 0.30 mg/dL (0.00-1.30) 09/27/18 15:56 Total Protein 6.9 g/dL (6.3-8.2) 09/26/18 14:59 Albumin 3.1 g/dL (3.9-5) L 09/26/18 14:59 Albumin/Globulin Ratio 0.8 % 09/26/18 14:59 Vitamin B12 1010 pg/mL (211-911) H 09/26/18 07:54 Folate 7.69 ng/mL (7.3-26.0) 09/26/18 07:54 TSH 0.960 mlU/mL (0.270-4.200) 09/04/18 21:00 Urine Color Yellow (Yellow) 09/04/18 23:30 Urine Turbidity Clear (Clear) 09/04/18 23:30 Urine pH 6.0 (5.0-7.0) 09/04/18 23:30 Ur Specific [place] 1.012 (1.003-1.030) 09/04/18 23:30 Urine Protein <15 mg/dl mg/dL (Negative) 09/04/18 23:30 Urine Glucose (UA) Neg mg/dL (Negative) 09/04/18 23:30 Urine Ketones Neg mg/dL (Negative) 09/04/18 23:30 Urine Blood Neg (Negative) 09/04/18 23:30 Urine Nitrite Neg (Negative) 09/04/18 23:30 Urine Bilirubin Neg (Negative) 09/04/18 23:30 Urine Urobilinogen < 2.0 mg/dL (<2.0) 09/04/18 23:30 Ur Leukocyte Esterase Neg (Negative) 09/04/18 23:30 Urine WBC (Auto) 1.0 /HPF (0.0-6.0) 09/04/18 23:30 Urine RBC (Auto) 2.0 /HPF (0.0-6.0) 09/04/18 23:30 Urine Bacteria (Auto) 1+ /HPF (Negative) 09/04/18 23:30 Urine Mucus Few /HPF 09/04/18 23:30 Urine Opiates Screen Presumptive negative 09/04/18 23:30 Urine Methadone Screen Presumptive negative 09/04/18 23:30 Ur Barbiturates Screen Presumptive negative 09/04/18 23:30 Ur Phencyclidine Scrn Presumptive negative 09/04/18 23:30 Ur Amphetamines Screen Presumptive negative 09/04/18 23:30 U Benzodiazepines Scrn Presumptive negative 09/04/18 23:30 Urine Cocaine Screen Presumptive negative 09/04/18 23:30 U Marijuana (THC) Screen Presumptive negative 09/04/18 23:30 Drugs of Abuse Note Disclamer 09/04/18 23:30 Plasma/Serum Alcohol < 0.01 % (0-0.07) 09/04/18 21:00 JAMEEL Screen Negative (Negative) 09/05/18 16:19 Sm ([place]) Antibody <1.0 AI (<1.0) 09/05/18 16:19 Mitochondria M2 Ab <=20.0 U (<=20.0) 09/05/18 16:19 Heparin-induced Plt Ab Negative (Negative) 09/24/18 10:14 UF Heparin High Dose 0 % Release 09/24/18 10:14 KIERAN UFH Low Dose 0.1 0 % Release 09/24/18 10:14 KIERAN UFH Low Dose 0.5 0 % Release 09/24/18 10:14 CMV DNA PCR log copier operator/mL See scanned results 09/08/18 16:50 Hepatitis A IgM Ab Non-reactive (NonReactive) 09/27/18 15:56 Hep Bs Antigen Non-reactive (Negative) 09/27/18 15:56 Hep B Core IgM Ab Non-reactive (NonReactive) 09/27/18 15:56 Hepatitis C Antibody Non-reactive (NonReactive) 09/27/18 15:56 Miscellaneous Test Flexitest 1 09/09/18 07:03 Active Medications - Current Medications Current Medications: Generic Name Dose Route Start Last Admin Trade Name Freq PRN Reason Stop Dose Admin Acetaminophen 650 mg 09/05/18 02:48 09/09/18 06:44 Tylenol PO 650 mg Q4H PRN Administration Pain MILD(1-3)/Fever >100.5/VILLAREAL Emtricitabine 200 mg 09/20/18 14:00 09/28/18 10:26 Emtriva PO 200 mg QDAY GLEN Administration Famotidine 10 mg 09/22/18 22:00 09/28/18 10:25 Pepcid PO 10 mg BID GLEN Administration Fentanyl 100 mcg 09/28/18 09:30 Sublimaze IV 09/28/18 16:00 ONCE NR Sodium Chloride 1,000 mls @ 100 mls/hr 09/16/18 08:00 09/23/18 12:46 Nacl 0.9% 1000 Ml IV 100 mls/hr DIRECT GLEN Administration Micafungin Sodium 100 mg/ 100 mls @ 100 mls/hr 09/24/18 14:00 09/28/18 10:29 Sodium Chloride IV 100 mls/hr QDAY GLEN Administration Protocol Megestrol Acetate 400 mg 09/24/18 10:00 09/28/18 10:23 Megace PO 400 mg QDAY GLEN Administration Midazolam HCl 5 mg 09/28/18 09:30 Versed IV 09/28/18 16:00 ONCE NR Midodrine 10 mg 09/05/18 19:00 09/28/18 10:25 Proamatine PO 10 mg TID@0800,1200,1600 GLEN Administration Nystatin 500,000 unit 09/10/18 20:00 09/27/18 22:23 Nystatin PO 500,000 unit TID GLEN Administration Ondansetron HCl 4 mg 09/05/18 02:48 09/10/18 13:06 Zofran IV 4 mg Q8H PRN Administration Nausea And Vomiting Sodium Chloride 10 ml 09/05/18 10:00 09/28/18 11:40 Sodium Chloride Flush Syringe 10 Ml IV 10 ml BID GLEN Administration Sodium Chloride 10 ml 09/05/18 02:48 Sodium Chloride Flush Syringe 10 Ml IV PRN PRN LINE FLUSH Tenofovir Disoproxil Fumarate 300 mg 09/20/18 14:00 09/28/18 10:24 Viread PO 300 mg QDAY GLEN Administration Nutrition/Malnutrition Assess - Dietary Evaluation Nutrition/Malnutrition Findings: Nutrition Notes Start: 09/06/18 15:57 Freq: Status: Active Protocol: Document 09/27/18 14:12 RM (Rec: 09/27/18 14:16 RM [id number]) Nutrition Notes Initial or Follow up Reassessment Other Pertinent Diagnosis HIV/AIDS, noncompliance, oral candidiasis Current Diet Regular + Ensure Enlive TID Labs/Tests Reviewed Pertinent Medications Reviewed Height 5 ft 3 in Weight 48.1 kg [place] Body Weight (kg) 56.36 BMI 18.8 Subjective/Other Information Pt stated that he eats bites of his meals but drinks the Ensure Enlive. Noted empty Ensure Enlive bottle at bedside. Pt requested Ensure Enlive at time of visit and screenplay writer brought it to him. Percent of energy/protein needs met: 68%/100% Burn Absent Trauma Absent #1 Nutrition Diagnosis Malnutrition Diagnosis Progress(for reassessment Continues documentation) Is patient on ventilator? No Is Patient Ambulatory and/or Out of Bed No REE-([place]-St. Jeor-confined to bed) 4414.273 Calculation Used for Recommendations [place]-St Jeor Additional Notes Pro needs 1.2-1.5g/k-69 g /day Fluid needs 1ml/kcal Nutrition Intervention Change Diet Order: Continue current Add Supplement/Snack (indicate name/kcal Ensure Enlive TID /protein ) Provides kCal: 1,050 Provides Protein (gm) 60 Goal #1 Meet at least 75% of calorie and protein needs Anticipated Discharge Needs: Regular diet Follow-Up By: 09/30/18 Additional Comments Follow for PO and ONS intakes
[2018-09-28 12:12] LABS: Alanine Aminotransferase 138 units/L (7-56); Albumin 3.4 g/dL (3.9-5)
[2018-09-28 12:16] LABS: Bilirubin,Direct < 0.2 mg/dL (0-0.2)
[2018-09-28] MEDS: MEPRON PO SCH ×2 (20:27→22:58)
--- NOTE | 2018-09-28 20:56 | Progress Note ---
Assessment and Plan Patient sleeping on room air at this time.. No acute respiratory distress. O2 saturation 98%. Patient aferbile and has leukopenia. - Patient Problems (1) Pneumonia Current Visit: Yes Status: Acute Qualifiers: Pneumonia type: due to unspecified organism Laterality: left Lung location: lower lobe of lung Qualified Code(s): J18.1 - Lobar pneumonia, unspecified organism Plan to address problem: Patient was on bactium. (2) AIDS Current Visit: Yes Status: Chronic Plan to address problem: Management as per infectious diseases. (3) Altered mental status Current Visit: Yes Status: Acute Plan to address problem: Management as per primary care and neurology. (4) Oral candidiasis Current Visit: Yes Status: Acute Plan to address problem: Patient getting nystatin. Subjective Date of service: 09/28/18 Principal diagnosis: low plt Interval history: Patient sleeping on room air at this time.. No acute respiratory distress. O2 saturation 98%. Patient aferbile and has leukopenia. Objective Vital Signs - 12hr 09/28/18 09/28/18 09/28/18 09:09 09:10 12:36 Temperature 97.7 F Pulse Rate 64 Respiratory 18 18 Rate Blood Pressure 89/58 98/64 Blood Pressure [Left] O2 Sat by Pulse 98 Oximetry 09/28/18 09/28/18 09/28/18 12:42 17:30 17:31 Temperature 98.2 F 97.7 F Pulse Rate 53 L 80 Respiratory 20 Rate Blood Pressure 98/62 Blood Pressure 98/64 [Left] O2 Sat by Pulse 100 Oximetry 09/28/18 19:18 Temperature 98.4 F Pulse Rate 89 Respiratory 16 Rate Blood Pressure 104/70 Blood Pressure [Left] O2 Sat by Pulse 98 Oximetry Constitutional: no acute distress, alert, other (Weak) Eyes: non-icteric ENT: oropharynx moist, oropharyngeal exudate pre, other (mallampati 2) Neck: supple, no lymphadenopathy, no JVD, other Ascultation: Bilateral: diminished breath sounds, other (Prolonged expiratory phase.) Cardiovascular: regular rate and rhythm Gastrointestinal: normoactive bowel sounds, soft, non-tender, non-distended Integumentary: normal Extremities: no cyanosis, no edema, pulses normal, no ischemia or petechiae Neurologic: non-focal exam (grossly), pupils equal and round, other (weak; mild cognitive dysfunction) Psychiatric: other (affect flat) CBC and BMP: 09/28/18 06:03 09/28/18 06:03 ABG, PT/INR, D-dimer: PT/INR, D-dimer PT 12.8 Sec. (12.2-14.9) 09/27/18 10:21 INR 0.91 (0.87-1.13) 09/27/18 10:21 Abnormal lab findings: Abnormal Labs 09/04/18 09/04/18 09/04/18 21:00 21:00 22:32 WBC RBC 3.23 L Hgb 9.6 L Hct 28.9 L RDW 18.8 H Plt Count Lymph % (Auto) [place] % (Auto) 12.5 H Lymph # 0.7 L Seg Neutrophils % 72.4 H Seg Neuts % (Manual) Lymphocytes % (Manual) Monocytes % (Manual) Nucleated RBC % Seg Neutrophils # Man Lymphocytes # (Manual) PT Sodium Potassium Chloride 109.9 H Carbon Dioxide 21 L BUN 31 H Creatinine Glucose Lactic Acid 2.40 H* Calcium 8.2 L Iron TIBC Ferritin AST 200 H ALT 136 H Alkaline Phosphatase 138 H Ammonia Total Protein Albumin 3.5 L Vitamin B12 09/04/18 09/05/18 09/05/18 22:32 16:19 16:19 WBC RBC Hgb Hct RDW Plt Count Lymph % (Auto) [place] % (Auto) Lymph # Seg Neutrophils % Seg Neuts % (Manual) Lymphocytes % (Manual) Monocytes % (Manual) Nucleated RBC % Seg Neutrophils # Man Lymphocytes # (Manual) PT Sodium Potassium Chloride 112.4 H Carbon Dioxide 19 L BUN Creatinine Glucose Lactic Acid Calcium 8.1 L Iron TIBC 223 L Ferritin AST 241 H ALT 138 H Alkaline Phosphatase Ammonia 64.0 H Total Protein Albumin 3.1 L Vitamin B12 09/05/18 09/06/18 09/06/18 16:19 10:40 10:40 WBC 2.4 L RBC 2.67 L Hgb 7.7 L Hct 23.7 L RDW 18.7 H Plt Count 135 L Lymph % (Auto) 10.0 L [place] % (Auto) 8.4 H Lymph # 0.2 L Seg Neutrophils % 81.1 H Seg Neuts % (Manual) Lymphocytes % (Manual) Monocytes % (Manual) Nucleated RBC % Seg Neutrophils # Man Lymphocytes # (Manual) PT Sodium Potassium Chloride 112.1 H Carbon Dioxide 19 L BUN Creatinine 0.7 L Glucose Lactic Acid Calcium 7.8 L Iron TIBC Ferritin 2880.0 H AST 263 H ALT 143 H Alkaline Phosphatase Ammonia Total Protein 6.1 L Albumin 2.8 L Vitamin B12 09/07/18 09/07/18 09/08/18 10:38 10:38 06:39 WBC RBC 2.86 L Hgb 8.3 L Hct 25.2 L RDW 18.3 H Plt Count 123 L Lymph % (Auto) 6.1 L [place] % (Auto) Lymph # 0.3 L Seg Neutrophils % 87.3 H Seg Neuts % (Manual) Lymphocytes % (Manual) Monocytes % (Manual) Nucleated RBC % Seg Neutrophils # Man Lymphocytes # (Manual) PT Sodium Potassium Chloride Carbon Dioxide BUN Creatinine Glucose Lactic Acid Calcium Iron 26 L TIBC 212 L Ferritin 2762.0 H AST ALT Alkaline Phosphatase Ammonia Total Protein Albumin Vitamin B12 09/08/18 09/08/18 09/09/18 06:39 13:43 07:03 WBC RBC Hgb Hct RDW Plt Count Lymph % (Auto) [place] % (Auto) Lymph # Seg Neutrophils % Seg Neuts % (Manual) Lymphocytes % (Manual) Monocytes % (Manual) Nucleated RBC % Seg Neutrophils # Man Lymphocytes # (Manual) PT Sodium Potassium 3.2 L 3.5 L Chloride 111.9 H 108.6 H Carbon Dioxide 13 L 15 L BUN 6 L 4 L Creatinine Glucose 118 H Lactic Acid Calcium 7.5 L 7.5 L Iron TIBC Ferritin AST 117 H 130 H ALT 87 H 86 H Alkaline Phosphatase Ammonia Total Protein 5.6 L 6.0 L Albumin 2.6 L 2.6 L Vitamin B12 09/09/18 09/10/18 09/10/18 07:31 04:26 04:26 WBC 3.5 L 2.1 L RBC 2.82 L 3.10 L Hgb 8.2 L 9.0 L Hct 24.6 L 27.1 L RDW 18.8 H 18.6 H Plt Count 136 L 139 L Lymph % (Auto) [place] % (Auto) Lymph # Seg Neutrophils % Seg Neuts % (Manual) 77.0 H Lymphocytes % (Manual) 11.0 L Monocytes % (Manual) 11.0 H Nucleated RBC % Seg Neutrophils # Man 1.6 L Lymphocytes # (Manual) 0.2 L PT Sodium Potassium Chloride 112.7 H Carbon Dioxide 14 L BUN 5 L Creatinine Glucose 109 H Lactic Acid Calcium 7.7 L Iron TIBC Ferritin AST 110 H ALT 76 H Alkaline Phosphatase Ammonia Total Protein 6.0 L Albumin 2.8 L Vitamin B12 09/11/18 09/12/18 09/13/18 05:22 12:28 07:23 WBC 1.1 L* RBC 2.82 L Hgb 8.2 L Hct 25.5 L RDW 19.5 H Plt Count 103 L Lymph % (Auto) [place] % (Auto) Lymph # Seg Neutrophils % Seg Neuts % (Manual) Lymphocytes % (Manual) Monocytes % (Manual) 18.0 H Nucleated RBC % Seg Neutrophils # Man 0.6 L Lymphocytes # (Manual) 0.3 L PT 15.1 H Sodium 133 L Potassium 3.5 L Chloride 108.8 H Carbon Dioxide 14 L BUN 6 L Creatinine Glucose 123 H Lactic Acid Calcium 7.4 L Iron TIBC Ferritin AST 126 H ALT 77 H Alkaline Phosphatase Ammonia Total Protein 5.7 L Albumin 2.6 L Vitamin B12 09/15/18 09/15/18 09/17/18 00:51 04:31 10:52 WBC 1.2 L* 1.2 L* RBC 3.38 L 3.03 L Hgb 9.7 L 8.9 L Hct 29.5 L 27.2 L RDW 19.0 H 19.5 H Plt Count 95 L 59 L Lymph % (Auto) [place] % (Auto) Lymph # Seg Neutrophils % Seg Neuts % (Manual) Lymphocytes % (Manual) Monocytes % (Manual) 24.0 H 14.0 H Nucleated RBC % 2.0 H Seg Neutrophils # Man 0.6 L 0.8 L Lymphocytes # (Manual) 0.3 L 0.2 L PT Sodium Potassium Chloride 112.0 H Carbon Dioxide 13 L BUN Creatinine Glucose 65 L Lactic Acid Calcium Iron TIBC Ferritin AST ALT Alkaline Phosphatase Ammonia Total Protein Albumin Vitamin B12 09/21/18 09/24/18 09/26/18 15:26 00:33 07:54 WBC 1.6 L* 0.7 L* RBC 2.94 L 2.67 L Hgb 8.8 L 7.8 L Hct 26.3 L 23.8 L RDW 20.0 H 20.3 H Plt Count 26 L 28 L Lymph % (Auto) [place] % (Auto) Lymph # Seg Neutrophils % Seg Neuts % (Manual) Lymphocytes % (Manual) Monocytes % (Manual) 12.0 H 10.0 H Nucleated RBC % Seg Neutrophils # Man 1.0 L 0.4 L Lymphocytes # (Manual) 0.4 L 0.1 L PT Sodium Potassium Chloride Carbon Dioxide BUN Creatinine Glucose Lactic Acid Calcium Iron TIBC Ferritin AST ALT Alkaline Phosphatase Ammonia Total Protein Albumin Vitamin B12 1010 H 09/26/18 09/26/18 09/27/18 14:59 14:59 06:28 WBC 2.0 L 2.0 L RBC 2.85 L 2.88 L Hgb 8.3 L 8.4 L Hct 25.6 L 25.5 L RDW 20.2 H 19.4 H Plt Count 83 L D 84 L Lymph % (Auto) [place] % (Auto) Lymph # Seg Neutrophils % Seg Neuts % (Manual) 72.0 H Lymphocytes % (Manual) 11.0 L Monocytes % (Manual) 19.0 H 10.0 H Nucleated RBC % Seg Neutrophils # Man 1.3 L 1.4 L Lymphocytes # (Manual) 0.2 L 0.3 L PT Sodium Potassium Chloride 108.0 H Carbon Dioxide BUN Creatinine Glucose 102 H Lactic Acid Calcium Iron TIBC Ferritin AST 364 H ALT 128 H Alkaline Phosphatase 311 H Ammonia Total Protein Albumin 3.1 L Vitamin B12 09/27/18 09/28/18 09/28/18 06:28 06:03 06:03 WBC 2.1 L RBC 2.74 L Hgb 8.1 L Hct 24.6 L RDW 20.3 H Plt Count 117 L Lymph % (Auto) [place] % (Auto) Lymph # Seg Neutrophils % Seg Neuts % (Manual) 78.0 H Lymphocytes % (Manual) Monocytes % (Manual) 8.0 H Nucleated RBC % Seg Neutrophils # Man 1.6 L Lymphocytes # (Manual) 0.3 L PT Sodium Potassium Chloride 110.5 H 108.4 H Carbon Dioxide BUN 23 H 27 H Creatinine Glucose Lactic Acid Calcium Iron TIBC Ferritin AST ALT Alkaline Phosphatase Ammonia Total Protein Albumin Vitamin B12 09/28/18 06:03 WBC RBC Hgb Hct RDW Plt Count Lymph % (Auto) [place] % (Auto) Lymph # Seg Neutrophils % Seg Neuts % (Manual) Lymphocytes % (Manual) Monocytes % (Manual) Nucleated RBC % Seg Neutrophils # Man Lymphocytes # (Manual) PT Sodium Potassium Chloride Carbon Dioxide BUN Creatinine Glucose Lactic Acid Calcium Iron TIBC Ferritin AST 380 H ALT 138 H Alkaline Phosphatase 317 H Ammonia Total Protein Albumin 3.4 L Vitamin B12 Allied health notes reviewed: nursing
--- NOTE | 2018-09-29 07:30 | Hem/Onc Progress Note ---
Assessment and Plan 1. Anemia, leukopenia, thrombocytopenia. The question arises if this is HIV related, medication related, or infection related. deficiency Ix. bone marrow aspiration biopsy including culture. 2. smear evaluation. 3. Abnormal liver function test. 4. Iron is low, but ferritin is high, may be inflammatory etiology. 5. Human immunodeficiency virus. 6. The ID team following. 7. Micafungin. I had spoken with the pharmacy, based on the timing of the episodes. The patient was on IV Bactrim and then oral Bactrim, micafungin was used for a few days and stopped and restarted. 8. History of Carolann. 9. History of being treated for pneumonia. 10. Malnutrition. I will follow the patient during inpatient stay. eval bone marrow biopsy. 09/29 - wbc - plt better path smear - schistocytes - but plt better [id number] ordered BMBx not done as pt had low BP - today BP better - pt NPO for same cause of low plt unclear as plt improved before oral bactrim could be stopped micafungin vs oral bactrim vs other causes BMBx to look for granulomas and culture - Patient Problems (1) Pancytopenia Current Visit: Yes Status: Acute Subjective Date of service: 09/29/18 Principal diagnosis: low plt , abc and hb Interval history: no bleeding Objective - Constitutional Vitals: Last Vital Signs Temp 98.2 F 09/29/18 03:35 Pulse 57 L 09/29/18 03:35 Resp 12 09/29/18 03:35 BP 101/66 09/29/18 03:35 Pulse Ox 99 09/29/18 03:35 Pain Intensity (0-10): denies any pain General appearance: no acute distress Performance status: 4-completely disabled - EENT Eyes: EOM intact ENT: hearing intact Lymph node exam: negative cervical - Neck Neck: normal ROM - Respiratory Respiratory effort: Positive: normal Respiratory: bilateral: CTA - Cardiovascular Heart Sounds: Present: S1 & S2 Extremities: No edema - Gastrointestinal General gastrointestinal: Present: soft, non-tender Rectal Exam: deferred - Genitourinary Male genitourinary: Present: deferred - Integumentary Integumentary: warm - Musculoskeletal Musculoskeletal: generalized weakness - Neurologic Neurologic: moves all extremities - Labs Lab Results: Laboratory Results - last 24 hr 09/24/18 09/28/18 09/28/18 10:14 06:03 06:03 Add Manual Diff Complete Total Counted 100 Seg Neuts % (Manual) 78.0 H Band Neutrophils % 0 Lymphocytes % (Manual) 14.0 Reactive Lymphs % (Man) 0 Monocytes % (Manual) 8.0 H Eosinophils % (Manual) 0 Basophils % (Manual) 0 Metamyelocytes % 0 Myelocytes % 0 Promyelocytes % 0 Blast Cells % 0 Nucleated RBC % Not Reportable Seg Neutrophils # Man 1.6 L Band Neutrophils # 0.0 Lymphocytes # (Manual) 0.3 L Abs React Lymphs (Man) 0.0 Monocytes # (Manual) 0.2 Eosinophils # (Manual) 0.0 Basophils # (Manual) 0.0 Metamyelocytes # 0.0 Myelocytes # 0.0 Promyelocytes # 0.0 Blast Cells # 0.0 WBC Morphology Not Reportable Hypersegmented Neuts Not Reportable Hyposegmented Neuts Not Reportable Hypogranular Neuts Not Reportable Smudge Cells Not Reportable Toxic Granulation Not Reportable Toxic Vacuolation Not Reportable Dohle Bodies Not Reportable Pelger-Huet Anomaly Not Reportable Giovanni Rods Not Reportable Platelet Estimate Consistent w auto Clumped Platelets Not Reportable Plt Clumps, EDTA Not Reportable Large Platelets Not Reportable Giant Platelets Not Reportable Platelet Satelliting Not Reportable Plt Morphology Comment Not Reportable RBC Morphology Not Reportable Dimorphic RBCs Not Reportable Polychromasia Not Reportable Hypochromasia Not Reportable Poikilocytosis 3+ Anisocytosis 1+ Microcytosis Not Reportable Macrocytosis Not Reportable Spherocytes Not Reportable Pappenheimer Bodies Not Reportable Sickle Cells Not Reportable Target Cells Not Reportable Tear Drop Cells Few Ovalocytes 2+ Helmet Cells Not Reportable [place] Bodies Not Reportable [place] Rings Not Reportable [place] Cells Not Reportable Bite Cells Not Reportable Crenated Cell Not Reportable Elliptocytes 1+ Acanthocytes (Spur) Not Reportable Rouleaux Not Reportable Hemoglobin C Crystals Not Reportable Schistocytes Not Reportable Malaria parasites Not Reportable Carlos A Bodies Not Reportable Hem Pathologist Commnt No Total Bilirubin 0.30 Direct Bilirubin < 0.2 Indirect Bilirubin 0.1 AST 380 H ALT 138 H Alkaline Phosphatase 317 H Total Protein 7.8 Albumin 3.4 L Albumin/Globulin Ratio 0.8 Miscellaneous Test Flexitest 1 Medications & Allergies - Medications Allergies/Adverse Reactions: Allergies No Known Allergies Allergy (Verified 07/18/18 14:08) Home Medications: Home Medications Medication Instructions Recorded Confirmed Last Taken Type Azithromycin [Zithromax TAB] 1,200 mg PO QWEEK #4 tablet 06/18/18 09/14/18 Unknown Rx Pantoprazole [Protonix TAB] 40 mg PO DAILY #30 tablet 06/19/18 09/14/18 Unknown Rx Nystas/Diphen/Xyl Visc/Mylanta 15 ml PO TID 14 Days oral.liqd 07/18/18 09/14/18 Unknown Rx [Magic Mouthwash] Nystas/Diphen/Xyl Visc/Mylanta 15 ml PO TID 30 Days #1 udc 07/23/18 09/14/18 Unknown Rx [Magic Mouthwash] Sulfamethoxazole/Trimethoprim 1 each PO QDAY 30 Days #30 tablet 07/23/18 09/14/18 Unknown Rx [Bactrim DS TAB] Posaconazole [Noxafil] 300 mg PO BID 1 Days #6 tablet. 08/03/18 09/14/18 Unknown Rx Posaconazole [Noxafil] 300 mg PO QDAY 13 Days #39 08/03/18 09/14/18 Unknown Rx tablet. Acyclovir [Zovirax Tab] 400 mg PO Q8H 30 Days #90 tab 08/04/18 09/14/18 Unknown Rx Azithromycin [Zithromax TAB] 1,200 mg PO QDAY 30 Days #8 tablet 08/04/18 09/14/18 Unknown Rx Loperamide [Imodium] 2 mg PO Q2H PRN #30 capsule 08/04/18 09/14/18 Unknown Rx Midodrine HCl 2.5 mg PO DAILY #30 tablet 08/04/18 09/14/18 Unknown Rx Active Medications: Generic Name Dose Route Start Last Admin Trade Name Freq PRN Reason Stop Dose Admin Acetaminophen 650 mg 09/05/18 02:48 09/09/18 06:44 Tylenol PO 650 mg Q4H PRN Administration Pain MILD(1-3)/Fever >100.5/VILLAREAL Atovaquone 750 mg 09/28/18 13:00 09/28/18 22:58 Mepron PO 750 mg BID GLEN Administration Emtricitabine 200 mg 09/20/18 14:00 09/28/18 10:26 Emtriva PO 200 mg QDAY GLEN Administration Famotidine 10 mg 09/22/18 22:00 09/28/18 22:58 Pepcid PO 10 mg BID GLEN Administration Sodium Chloride 1,000 mls @ 100 mls/hr 09/16/18 08:00 09/23/18 12:46 Nacl 0.9% 1000 Ml IV 100 mls/hr DIRECT GLEN Administration Micafungin Sodium 100 mg/ 100 mls @ 100 mls/hr 09/24/18 14:00 09/28/18 10:29 Sodium Chloride IV 100 mls/hr QDAY GLEN Administration Protocol Megestrol Acetate 400 mg 09/24/18 10:00 09/28/18 10:23 Megace PO 400 mg QDAY GLEN Administration Midodrine 10 mg 09/05/18 19:00 09/28/18 19:23 Proamatine PO 10 mg TID@0800,1200,1600 GLEN Administration Nystatin 500,000 unit 09/10/18 20:00 09/28/18 23:01 Nystatin PO 500,000 unit TID GLEN Administration Ondansetron HCl 4 mg 09/05/18 02:48 09/10/18 13:06 Zofran IV 4 mg Q8H PRN Administration Nausea And Vomiting Sodium Chloride 10 ml 09/05/18 10:00 09/28/18 22:59 Sodium Chloride Flush Syringe 10 Ml IV 10 ml BID GLEN Administration Sodium Chloride 10 ml 09/05/18 02:48 Sodium Chloride Flush Syringe 10 Ml IV PRN PRN LINE FLUSH Tenofovir Disoproxil Fumarate 300 mg 09/20/18 14:00 09/28/18 10:24 Viread PO 300 mg QDAY GLEN Administration
[2018-09-29 08:06] LABS: Hematocrit 26.6 % (35.5-45.6); Hemoglobin 8.6 gm/dl (11.8-15.2); Mean Corpuscular HGB Conc 32 % (32-34); Mean Corpuscular Volume 92 fl (84-94); Platelet Count 132 K/mm3 (140-440)
[2018-09-29 08:13] LABS: Red Cell Distribution Width 20.4 % (13.2-15.2)
[2018-09-29 08:29] LABS: Alanine Aminotransferase 130 units/L (7-56); Albumin 3.5 g/dL (3.9-5); BUN/Creatinine Ratio 26; Blood Urea Nitrogen 26 mg/dL (9-20); Hemolysis Index 18
[2018-09-29] MEDS: EMTRIVA PO SCH (09:54)
[2018-09-29] MEDS: VIREAD PO SCH (09:54)
[2018-09-29] MEDS: TIVICAY PO SCH (09:54)
[2018-09-29] MEDS: PEPCID PO SCH ×2 (09:55→22:11)
[2018-09-29] MEDS: MEGACE PO SCH (09:55)
[2018-09-29] MEDS: NYSTATIN PO SCH ×3 (09:55→20:46)
[2018-09-29] MEDS: PROAMATINE PO SCH ×3 (09:55→17:07)
[2018-09-29] MEDS: MEPRON PO SCH ×2 (09:56→22:11)
[2018-09-29] MEDS: SODIUM CHLORIDE FLUSH SYRINGE 10 ML IV SCH ×2 (09:56→22:11)
--- NOTE | 2018-09-29 10:43 | Progress Note ---
Assessment and Plan Culture 09/08/2018 Blood culture: no growth 09/08/2018 Serum Cr Ag: negative 09/09/2018 Blood culture: no growth thus far 09/09/2018 urine culture no growth Fungal blood culture: no growth to date A/P: 42 year old male, know to ID from previous admissions on 06/23/18-06/19/18 and 07/18/18- 08/04/18 for pneumonia, HIV/AIDS, severe oral candidiasis and diarrhea. CD4 count 11. Viral Load [id number]. HIV genotype 06/18/2018 with few resistance mutations. CMV negative. Patient remains noncompliant with his HAART therapy. Now admitted with: 1. Altered Mental Status/Acute Encephalopathy: Continuing. 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 CT head shows no acute intracranial abnormality. + chronic maxillary and ethmoid sinusitis. MRI images showing brain atrophy, no focal lesions to suggest toxoplasma, PML, ventriculitis, [employer] lymphoma or other space occupying lesions. Crypto Ag is negative. TTE shows no valvular vegetation, EF 30-35 %.Fungitell: negative. CMV DNR - <200 2. Oral Candidiasis: better on micafungin; White plaque on the oropharynx, tongue and inner and outer portion of the lips. h/o resistant Carolann. Continue Nystatin. 3. HIV/AIDS: Last admission in June CD4 count 11. Viral load high. Prognosis is poor.HIV therapy started 09/20/18 with Truvada + Tivicay. Currently compliant with medication regimen at hospital. CMV DNA PCR- negative, HHV8 PCR- negative. 4. Severe Malnutrition: related to HIV AIDS 5. Transaminitis: worsening ? unclear etiology. Abdominal ultrasound unremarkable. CT abdomen showing possible enteritis and somewhat inhomogenous l iver. may be due to ischemic hepatitis, HIV/AIDS hepatopathy, infectious etiology with viral hepatitis, vs drug toxicity- GI following. Stable to improving. Evaluating for disseminated MAC, fungal/mycolytic blood cultures in process. HAV, HBV, HCV - nonreactive RUQ ultrasound - Unremarkable liver and biliary system. Mild medical renal disease. 6. New Fevers : Resolved. 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 CAP vs PCP: Chest CT shows Bilateral pneumonia with findings most prominent in the left lower lobe as described. Bronchiectatic changes in left lower lobe noted also. Scattered blebs in the left lung. Fungitell negative, so PCP quite less likely. bilateral ground glass opacities could be fluid given cardiomyopathy and low EF. 8. Pancytopenia: better today; likely from untreated HIV and AIDS. Antiretroviral treatment started 09/20/18. 9. Diarrhea: Resolved per nursing. OVA & Parasite antigen ,Giardia and crypto sporidium antigen ordered. CT Abdomen unremarkable. Plan: - continue mepron fro PJP prophylaxis -continue nystatin swish and swallow -continue Micafungin 100mg IV q day D6 -f/u AFB fungal blood culture -Continue Truvada + Tivicay -F/u bone marrow biopsy for histopath and fungal AFB stain- Per CT unable to do biopsy because of hypotension --F/u OVA & Parasite antigen, Giardia and cryptosporidium antigen [facility] M: [phone] O:[phone] Subjective Date of service: 09/29/18 Principal diagnosis: low plt , abc and hb Interval history: Patient seen and examined. Asleep, easy to arouse. Calm with continued confusion. Objective - Exam Narrative Exam: Constitutional: Asleep, easy to arouse. Acute encephalopathy. . cachexia. No acute distress Head, Ears, Nose: Normocephalic, atraumatic. External ears, nose normal Eyes: Conjunctivae/corneas clear. No icterus. No ptosis. Neck: Supple, no meningeal signs Oral: dentition poor. ,Oral candidiasis , white plaque on the oropharynx, tongue, inner and outer portion of the lips- improved Cardiovascular: S1, S2 normal. Respiratory: Good air entry, clear to auscultation bilaterally GI: Soft,, + tenderness on exam, bowel sounds normal. No peritoneal signs. + diarrhea Musculoskeletal: No pedal edema, no cyanosis. Skin: No rash or abscess. Hem/Lymphatic: No palpable cervical or supraclavicular nodes. No lymphangitis Psych: Mood ok. Affect flat, Neurological: Asleep, easily arousable. no acute distress - Constitutional Vitals: Vital Signs Temp Pulse Resp BP Pulse Ox 98.2 F 74 18 86/46 100 09/29/18 10:33 09/29/18 08:59 09/29/18 08:59 09/29/18 08:59 09/29/18 08:59 Temperature -Last 24 Hours Temperature 98.2 F Temperature 98.2 F Temperature 98.4 F Temperature 98.4 F Temperature 97.7 F Temperature 98.2 F - Labs CBC & Chem 7: 09/29/18 07:04 09/29/18 07:04 Labs: Abnormal lab results 09/28/18 09/29/18 09/29/18 Range/Units 06:03 07:04 07:04 WBC 1.5 L* (4.5-11.0) K/mm3 RBC 2.90 L (3.65-5.03) M/mm3 Hgb 8.6 L (11.8-15.2) gm/dl Hct 26.6 L (35.5-45.6) % RDW 20.4 H (13.2-15.2) % Plt Count 132 L (140-440) K/mm3 BUN 26 H (9-20) mg/dL AST 380 H 304 H (5-40) units/L ALT 138 H 130 H (7-56) units/L Alkaline Phosphatase 317 H 306 H (35-129) units/L Albumin 3.4 L 3.5 L (3.9-5) g/dL
[2018-09-29 11:33] LABS: Basophils % (Manual) 0 % (0.0-1.8); Eosinophils % (Manual) 0 % (0.0-4.3); Total Cells Counted 100
[2018-09-29 11:34] LABS: Anisocytosis 1+; Macrocytosis Few; Ovalocytes 1+; Platelet Estimate Consistent w Auto
--- NOTE | 2018-09-29 13:17 | Progress Note ---
Assessment and Plan Patient sleeping on room air at this time.. No acute respiratory distress. O2 saturation 97%. Patient aferbile and has leukopenia.No change in patients condition. - Patient Problems (1) Pneumonia Current Visit: Yes Status: Acute Qualifiers: Pneumonia type: due to unspecified organism Laterality: left Lung location: lower lobe of lung Qualified Code(s): J18.1 - Lobar pneumonia, unspecified organism Plan to address problem: watching the patient off antibiotics. Patient is on micafungin. (2) AIDS Current Visit: Yes Status: Chronic Plan to address problem: Management as per infectious diseases. (3) Altered mental status Current Visit: Yes Status: Acute Plan to address problem: Management as per primary care and neurology. (4) Oral candidiasis Current Visit: Yes Status: Acute Plan to address problem: Patient getting nystatin. Subjective Date of service: 09/29/18 Principal diagnosis: low plt , abc and hb Interval history: Patient sleeping on room air at this time.. No acute respiratory distress. O2 saturation 97%. Patient aferbile and has leukopenia.No change in patients condition. Objective Vital Signs - 12hr 09/29/18 09/29/18 09/29/18 03:35 08:59 10:33 Temperature 98.2 F 98.2 F Pulse Rate 57 L 74 Respiratory 12 18 Rate Blood Pressure 101/66 86/46 O2 Sat by Pulse 99 100 Oximetry Constitutional: no acute distress, asleep, other (Weak) Eyes: non-icteric ENT: oropharynx moist, oropharyngeal exudate pre, other (mallampati 2) Neck: supple, no lymphadenopathy, no JVD, other Ascultation: Bilateral: diminished breath sounds, other (Prolonged expiratory phase.) Cardiovascular: regular rate and rhythm Gastrointestinal: normoactive bowel sounds, soft, non-tender, non-distended Integumentary: normal Extremities: no cyanosis, no edema, pulses normal, no ischemia or petechiae Neurologic: non-focal exam (grossly), pupils equal and round, other (weak; mild cognitive dysfunction) Psychiatric: other (affect flat) CBC and BMP: 09/29/18 07:04 09/29/18 07:04 ABG, PT/INR, D-dimer: PT/INR, D-dimer PT 12.8 Sec. (12.2-14.9) 09/27/18 10:21 INR 0.91 (0.87-1.13) 09/27/18 10:21 Abnormal lab findings: Abnormal Labs 09/04/18 09/04/18 09/04/18 21:00 21:00 22:32 WBC RBC 3.23 L Hgb 9.6 L Hct 28.9 L RDW 18.8 H Plt Count Lymph % (Auto) [place] % (Auto) 12.5 H Lymph # 0.7 L Seg Neutrophils % 72.4 H Seg Neuts % (Manual) Lymphocytes % (Manual) Monocytes % (Manual) Nucleated RBC % Seg Neutrophils # Man Lymphocytes # (Manual) PT Sodium Potassium Chloride 109.9 H Carbon Dioxide 21 L BUN 31 H Creatinine Glucose Lactic Acid 2.40 H* Calcium 8.2 L Iron TIBC Ferritin AST 200 H ALT 136 H Alkaline Phosphatase 138 H Ammonia Total Protein Albumin 3.5 L Vitamin B12 09/04/18 09/05/18 09/05/18 22:32 16:19 16:19 WBC RBC Hgb Hct RDW Plt Count Lymph % (Auto) [place] % (Auto) Lymph # Seg Neutrophils % Seg Neuts % (Manual) Lymphocytes % (Manual) Monocytes % (Manual) Nucleated RBC % Seg Neutrophils # Man Lymphocytes # (Manual) PT Sodium Potassium Chloride 112.4 H Carbon Dioxide 19 L BUN Creatinine Glucose Lactic Acid Calcium 8.1 L Iron TIBC 223 L Ferritin AST 241 H ALT 138 H Alkaline Phosphatase Ammonia 64.0 H Total Protein Albumin 3.1 L Vitamin B12 09/05/18 09/06/18 09/06/18 16:19 10:40 10:40 WBC 2.4 L RBC 2.67 L Hgb 7.7 L Hct 23.7 L RDW 18.7 H Plt Count 135 L Lymph % (Auto) 10.0 L [place] % (Auto) 8.4 H Lymph # 0.2 L Seg Neutrophils % 81.1 H Seg Neuts % (Manual) Lymphocytes % (Manual) Monocytes % (Manual) Nucleated RBC % Seg Neutrophils # Man Lymphocytes # (Manual) PT Sodium Potassium Chloride 112.1 H Carbon Dioxide 19 L BUN Creatinine 0.7 L Glucose Lactic Acid Calcium 7.8 L Iron TIBC Ferritin 2880.0 H AST 263 H ALT 143 H Alkaline Phosphatase Ammonia Total Protein 6.1 L Albumin 2.8 L Vitamin B12 09/07/18 09/07/18 09/08/18 10:38 10:38 06:39 WBC RBC 2.86 L Hgb 8.3 L Hct 25.2 L RDW 18.3 H Plt Count 123 L Lymph % (Auto) 6.1 L [place] % (Auto) Lymph # 0.3 L Seg Neutrophils % 87.3 H Seg Neuts % (Manual) Lymphocytes % (Manual) Monocytes % (Manual) Nucleated RBC % Seg Neutrophils # Man Lymphocytes # (Manual) PT Sodium Potassium Chloride Carbon Dioxide BUN Creatinine Glucose Lactic Acid Calcium Iron 26 L TIBC 212 L Ferritin 2762.0 H AST ALT Alkaline Phosphatase Ammonia Total Protein Albumin Vitamin B12 09/08/18 09/08/18 09/09/18 06:39 13:43 07:03 WBC RBC Hgb Hct RDW Plt Count Lymph % (Auto) [place] % (Auto) Lymph # Seg Neutrophils % Seg Neuts % (Manual) Lymphocytes % (Manual) Monocytes % (Manual) Nucleated RBC % Seg Neutrophils # Man Lymphocytes # (Manual) PT Sodium Potassium 3.2 L 3.5 L Chloride 111.9 H 108.6 H Carbon Dioxide 13 L 15 L BUN 6 L 4 L Creatinine Glucose 118 H Lactic Acid Calcium 7.5 L 7.5 L Iron TIBC Ferritin AST 117 H 130 H ALT 87 H 86 H Alkaline Phosphatase Ammonia Total Protein 5.6 L 6.0 L Albumin 2.6 L 2.6 L Vitamin B12 09/09/18 09/10/18 09/10/18 07:31 04:26 04:26 WBC 3.5 L 2.1 L RBC 2.82 L 3.10 L Hgb 8.2 L 9.0 L Hct 24.6 L 27.1 L RDW 18.8 H 18.6 H Plt Count 136 L 139 L Lymph % (Auto) [place] % (Auto) Lymph # Seg Neutrophils % Seg Neuts % (Manual) 77.0 H Lymphocytes % (Manual) 11.0 L Monocytes % (Manual) 11.0 H Nucleated RBC % Seg Neutrophils # Man 1.6 L Lymphocytes # (Manual) 0.2 L PT Sodium Potassium Chloride 112.7 H Carbon Dioxide 14 L BUN 5 L Creatinine Glucose 109 H Lactic Acid Calcium 7.7 L Iron TIBC Ferritin AST 110 H ALT 76 H Alkaline Phosphatase Ammonia Total Protein 6.0 L Albumin 2.8 L Vitamin B12 09/11/18 09/12/18 09/13/18 05:22 12:28 07:23 WBC 1.1 L* RBC 2.82 L Hgb 8.2 L Hct 25.5 L RDW 19.5 H Plt Count 103 L Lymph % (Auto) [place] % (Auto) Lymph # Seg Neutrophils % Seg Neuts % (Manual) Lymphocytes % (Manual) Monocytes % (Manual) 18.0 H Nucleated RBC % Seg Neutrophils # Man 0.6 L Lymphocytes # (Manual) 0.3 L PT 15.1 H Sodium 133 L Potassium 3.5 L Chloride 108.8 H Carbon Dioxide 14 L BUN 6 L Creatinine Glucose 123 H Lactic Acid Calcium 7.4 L Iron TIBC Ferritin AST 126 H ALT 77 H Alkaline Phosphatase Ammonia Total Protein 5.7 L Albumin 2.6 L Vitamin B12 09/15/18 09/15/18 09/17/18 00:51 04:31 10:52 WBC 1.2 L* 1.2 L* RBC 3.38 L 3.03 L Hgb 9.7 L 8.9 L Hct 29.5 L 27.2 L RDW 19.0 H 19.5 H Plt Count 95 L 59 L Lymph % (Auto) [place] % (Auto) Lymph # Seg Neutrophils % Seg Neuts % (Manual) Lymphocytes % (Manual) Monocytes % (Manual) 24.0 H 14.0 H Nucleated RBC % 2.0 H Seg Neutrophils # Man 0.6 L 0.8 L Lymphocytes # (Manual) 0.3 L 0.2 L PT Sodium Potassium Chloride 112.0 H Carbon Dioxide 13 L BUN Creatinine Glucose 65 L Lactic Acid Calcium Iron TIBC Ferritin AST ALT Alkaline Phosphatase Ammonia Total Protein Albumin Vitamin B12 09/21/18 09/24/18 09/26/18 15:26 00:33 07:54 WBC 1.6 L* 0.7 L* RBC 2.94 L 2.67 L Hgb 8.8 L 7.8 L Hct 26.3 L 23.8 L RDW 20.0 H 20.3 H Plt Count 26 L 28 L Lymph % (Auto) [place] % (Auto) Lymph # Seg Neutrophils % Seg Neuts % (Manual) Lymphocytes % (Manual) Monocytes % (Manual) 12.0 H 10.0 H Nucleated RBC % Seg Neutrophils # Man 1.0 L 0.4 L Lymphocytes # (Manual) 0.4 L 0.1 L PT Sodium Potassium Chloride Carbon Dioxide BUN Creatinine Glucose Lactic Acid Calcium Iron TIBC Ferritin AST ALT Alkaline Phosphatase Ammonia Total Protein Albumin Vitamin B12 1010 H 09/26/18 09/26/18 09/27/18 14:59 14:59 06:28 WBC 2.0 L 2.0 L RBC 2.85 L 2.88 L Hgb 8.3 L 8.4 L Hct 25.6 L 25.5 L RDW 20.2 H 19.4 H Plt Count 83 L D 84 L Lymph % (Auto) [place] % (Auto) Lymph # Seg Neutrophils % Seg Neuts % (Manual) 72.0 H Lymphocytes % (Manual) 11.0 L Monocytes % (Manual) 19.0 H 10.0 H Nucleated RBC % Seg Neutrophils # Man 1.3 L 1.4 L Lymphocytes # (Manual) 0.2 L 0.3 L PT Sodium Potassium Chloride 108.0 H Carbon Dioxide BUN Creatinine Glucose 102 H Lactic Acid Calcium Iron TIBC Ferritin AST 364 H ALT 128 H Alkaline Phosphatase 311 H Ammonia Total Protein Albumin 3.1 L Vitamin B12 09/27/18 09/28/18 09/28/18 06:28 06:03 06:03 WBC 2.1 L RBC 2.74 L Hgb 8.1 L Hct 24.6 L RDW 20.3 H Plt Count 117 L Lymph % (Auto) [place] % (Auto) Lymph # Seg Neutrophils % Seg Neuts % (Manual) 78.0 H Lymphocytes % (Manual) Monocytes % (Manual) 8.0 H Nucleated RBC % Seg Neutrophils # Man 1.6 L Lymphocytes # (Manual) 0.3 L PT Sodium Potassium Chloride 110.5 H 108.4 H Carbon Dioxide BUN 23 H 27 H Creatinine Glucose Lactic Acid Calcium Iron TIBC Ferritin AST ALT Alkaline Phosphatase Ammonia Total Protein Albumin Vitamin B12 09/28/18 09/29/18 09/29/18 06:03 07:04 07:04 WBC 1.5 L* RBC 2.90 L Hgb 8.6 L Hct 26.6 L RDW 20.4 H Plt Count 132 L Lymph % (Auto) [place] % (Auto) Lymph # Seg Neutrophils % Seg Neuts % (Manual) Lymphocytes % (Manual) Monocytes % (Manual) 16.0 H Nucleated RBC % 3.0 H Seg Neutrophils # Man 0.8 L Lymphocytes # (Manual) 0.4 L PT Sodium Potassium Chloride Carbon Dioxide BUN 26 H Creatinine Glucose Lactic Acid Calcium Iron TIBC Ferritin AST 380 H 304 H ALT 138 H 130 H Alkaline Phosphatase 317 H 306 H Ammonia Total Protein Albumin 3.4 L 3.5 L Vitamin B12 Allied health notes reviewed: nursing
[2018-09-29] MEDS: MYCAMINE 100 MG in NACL 0.9% 100 ML IV SCH (17:01)
--- NOTE | 2018-09-29 19:03 | Progress Note ---
Assessment and Plan Assessment and plan: Pancytopenia with severe thrombocytopenia. Etiology secondary HIV/AIDS. ID recommends hematology consultation. Patient may need Neupogen. Check HIT panel HIV encephalopathy. CT head shows no acute intracranial abnormality. + chronic maxillary and ethmoid sinusitis. MRI images showing brain atrophy, no focal lesions to suggest toxoplasma, PML, ventriculitis, [place] lymphoma or other space occupying lesions. Crypto Ag is negative. TTE shows no valvular vegetation, EF 30-35 %. -Fungitell: negative -CMV DNR - <200 Unfortunately, patient required restraints this morning due to agitation. Continue to monitor, educated nursing with reorientation. Chronic hypotension. 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 Cardiology with no further recommendations. Patient with grave prognosis, cardiology recommending conservative approach. Oral candidiasis. h/o resistant Carolann. improved. Continue Nystatin Severe protein calorie malnutrition. related to HIV AIDS. HIV/AIDS. Last admission in June CD4 count 11. Viral load high. Prognosis is poor. Agreed to go to SNF. HIV therapy started 09/20/18 with Truvada + Tivicay. Continue Bactrim DS daily. Transaminitis. Abdominal ultrasound unremarkable. CT abdomen showing possible enteritis and somewhat inhomogenous liver. may be due to ischemic hepatitis, HIV/AIDS hepatopathy, infectious etiology with viral hepatitis, vs drug toxicity- GI following. Stable to improving. Evaluating for disseminated MAC, fungal/mycolytic blood cultures in process. 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 TTE no valvular vegetation, EF 30-35% Bilateral pneumonia. Chest CT shows Bilateral pneumonia with findings most prominent in the left lower lobe as described. Bronchiectatic changes in left lower lobe noted also. Scattered blebs in the left lung. Fungitell negative, so PCP quite less likely. bilateral ground glass opacities could be fluid given cardiomyopathy and low EF. Disposition. Awaiting SNF placement. Cardiology and ID recommend Hospice, but patient refuses. History Interval history: Patient seen and examined medical history reviewed Patient looks critically, cachectic Vital signs noted Hospitalist Physical - Constitutional Vitals: Temp Pulse Resp BP Pulse Ox 97.9 F 54 L 18 88/59 97 09/29/18 16:43 09/29/18 16:43 09/29/18 16:43 09/29/18 16:43 09/29/18 16:43 General appearance: Present: no acute distress, well-nourished - EENT Eyes: Present: PERRL, EOM intact - Neck Neck: Present: supple, normal ROM - Respiratory Respiratory effort: normal Respiratory: bilateral: diminished, negative: rales, rhonchi, wheezing - Cardiovascular Rhythm: regular Heart Sounds: Present: S1 & S2 - Extremities Extremities: no ischemia, No edema - Abdominal General gastrointestinal: soft, non-tender, non-distended, normal bowel sounds - Integumentary Integumentary: Present: clear, warm - Psychiatric Psychiatric: appropriate mood/affect, cooperative - Neurologic Neurologic: CNII-XII intact, moves all extremities Results - Labs CBC & Chem 7: 10/02/18 06:00 10/02/18 06:00 Labs: Laboratory Last Values WBC 1.5 K/mm3 (4.5-11.0) L* 09/29/18 07:04 RBC 2.90 M/mm3 (3.65-5.03) L 09/29/18 07:04 Hgb 8.6 gm/dl (11.8-15.2) L 09/29/18 07:04 Hct 26.6 % (35.5-45.6) L 09/29/18 07:04 MCV 92 fl (84-94) 09/29/18 07:04 MCH 30 pg (28-32) 09/29/18 07:04 MCHC 32 % (32-34) 09/29/18 07:04 RDW 20.4 % (13.2-15.2) H 09/29/18 07:04 Plt Count 132 K/mm3 (140-440) L 09/29/18 07:04 Lymph % (Auto) 6.1 % (13.4-35.0) L 09/08/18 06:39 Dawson % (Auto) [place] [employer] 09/28/18 06:03 Eos % (Auto) 0.0 % (0.0-4.3) 09/08/18 06:39 Baso % (Auto) 0.2 % (0.0-1.8) 09/08/18 06:39 Lymph # 0.3 K/mm3 (1.2-5.4) L 09/08/18 06:39 Dawson # 0.3 K/mm3 (0.0-0.8) 09/08/18 06:39 Eos # 0.0 K/mm3 (0.0-0.4) 09/08/18 06:39 Baso # 0.0 K/mm3 (0.0-0.1) 09/08/18 06:39 Add Manual Diff Complete 09/29/18 07:04 Total Counted 100 09/29/18 07:04 Seg Neutrophils % 87.3 % (40.0-70.0) H 09/08/18 06:39 Seg Neuts % (Manual) 56.0 % (40.0-70.0) 09/29/18 07:04 Band Neutrophils % 1.0 % 09/29/18 07:04 Lymphocytes % (Manual) 27.0 % (13.4-35.0) 09/29/18 07:04 Reactive Lymphs % (Man) 0 % 09/29/18 07:04 Monocytes % (Manual) 16.0 % (0.0-7.3) H 09/29/18 07:04 Eosinophils % (Manual) 0 % (0.0-4.3) 09/29/18 07:04 Basophils % (Manual) 0 % (0.0-1.8) 09/29/18 07:04 Metamyelocytes % 0 % 09/29/18 07:04 Myelocytes % 0 % 09/29/18 07:04 Promyelocytes % 0 % 09/29/18 07:04 Blast Cells % 0 % 09/29/18 07:04 Nucleated RBC % 3.0 % (0.0-0.9) H 09/29/18 07:04 Seg Neutrophils # 4.5 K/mm3 (1.8-7.7) 09/08/18 06:39 Seg Neutrophils # Man 0.8 K/mm3 (1.8-7.7) L 09/29/18 07:04 Band Neutrophils # 0.0 K/mm3 09/29/18 07:04 Lymphocytes # (Manual) 0.4 K/mm3 (1.2-5.4) L 09/29/18 07:04 Abs React Lymphs (Man) 0.0 K/mm3 09/29/18 07:04 Monocytes # (Manual) 0.2 K/mm3 (0.0-0.8) 09/29/18 07:04 Eosinophils # (Manual) 0.0 K/mm3 (0.0-0.4) 09/29/18 07:04 Basophils # (Manual) 0.0 K/mm3 (0.0-0.1) 09/29/18 07:04 Metamyelocytes # 0.0 K/mm3 09/29/18 07:04 Myelocytes # 0.0 K/mm3 09/29/18 07:04 Promyelocytes # 0.0 K/mm3 09/29/18 07:04 Blast Cells # 0.0 K/mm3 09/29/18 07:04 Pathologist Review 09/24/18 00:33 WBC Morphology Not Reportable 09/29/18 07:04 Hypersegmented Neuts Not Reportable 09/29/18 07:04 Hyposegmented Neuts Not Reportable 09/29/18 07:04 Hypogranular Neuts Not Reportable 09/29/18 07:04 Smudge Cells Not Reportable 09/29/18 07:04 Toxic Granulation Not Reportable 09/29/18 07:04 Toxic Vacuolation Not Reportable 09/29/18 07:04 Dohle Bodies Not Reportable 09/29/18 07:04 Pelger-Huet Anomaly Not Reportable 09/29/18 07:04 Givo[place] Rods Not Reportable 09/29/18 07:04 Platelet Estimate Consistent w auto 09/29/18 07:04 Clumped Platelets Not Reportable 09/29/18 07:04 Plt Clumps, EDTA Not Reportable 09/29/18 07:04 Large Platelets Not Reportable 09/29/18 07:04 Giant Platelets Not Reportable 09/29/18 07:04 Platelet Satelliting Not Reportable 09/29/18 07:04 Plt Morphology Comment Not Reportable 09/29/18 07:04 RBC Morphology Not Reportable 09/29/18 07:04 Dimorphic RBCs Not Reportable 09/29/18 07:04 Polychromasia Not Reportable 09/29/18 07:04 Hypochromasia Not Reportable 09/29/18 07:04 Poikilocytosis Not Reportable 09/29/18 07:04 Anisocytosis 1+ 09/29/18 07:04 Microcytosis Not Reportable 09/29/18 07:04 Macrocytosis Few 09/29/18 07:04 Spherocytes Not Reportable 09/29/18 07:04 Pappenheimer Bodies Not Reportable 09/29/18 07:04 Sickle Cells Not Reportable 09/29/18 07:04 Target Cells Not Reportable 09/29/18 07:04 Tear Drop Cells Not Reportable 09/29/18 07:04 Ovalocytes 1+ 09/29/18 07:04 Helmet Cells Not Reportable 09/29/18 07:04 [place] Bodies Not Reportable 09/29/18 07:04 [place] Rings Not Reportable 09/29/18 07:04 [place] Cells Not Reportable 09/29/18 07:04 Bite Cells Not Reportable 09/29/18 07:04 Crenated Cell Not Reportable 09/29/18 07:04 Elliptocytes Not Reportable 09/29/18 07:04 Acanthocytes (Spur) Not Reportable 09/29/18 07:04 Rouleaux Not Reportable 09/29/18 07:04 Hemoglobin C Crystals Not Reportable 09/29/18 07:04 Schistocytes Not Reportable 09/29/18 07:04 Malaria parasites Not Reportable 09/29/18 07:04 Carlos A Bodies Not Reportable 09/29/18 07:04 Hem Pathologist Commnt No 09/29/18 07:04 PT 12.8 Sec. (12.2-14.9) 09/27/18 10:21 INR 0.91 (0.87-1.13) 09/27/18 10:21 APTT 30.4 Sec. (24.2-36.6) 09/27/18 10:21 Heparin Anti-Xa, Unfract Negative (Negative) 09/24/18 10:14 Sodium 141 mmol/L (137-145) 09/29/18 07:04 Potassium 4.5 mmol/L (3.6-5.0) 09/29/18 07:04 Chloride 106.8 mmol/L (98-107) 09/29/18 07:04 Carbon Dioxide 23 mmol/L (22-30) 09/29/18 07:04 Anion Gap 16 mmol/L 09/29/18 07:04 BUN 26 mg/dL (9-20) H 09/29/18 07:04 Creatinine 1.0 mg/dL (0.8-1.5) 09/29/18 07:04 Estimated GFR > 60 ml/min 09/29/18 07:04 BUN/Creatinine Ratio 26 % 09/29/18 07:04 Glucose 86 mg/dL (75-100) 09/29/18 07:04 POC Glucose 91 (70-105) 09/09/18 07:18 Lactic Acid 1.30 mmol/L (0.7-2.0) 09/05/18 03:50 Calcium 9.0 mg/dL (8.4-10.2) 09/29/18 07:04 Iron 26 ug/dL (49-181) L 09/07/18 10:38 TIBC 212 mcg/dL (250-450) L 09/07/18 10:38 Ferritin 2762.0 ng/mL (13.0-400.0) H 09/07/18 10:38 Total Bilirubin 0.30 mg/dL (0.1-1.2) 09/29/18 07:04 Direct Bilirubin < 0.2 mg/dL (0-0.2) 09/28/18 06:03 Indirect Bilirubin 0.1 mg/dL 09/28/18 06:03 AST 304 units/L (5-40) H 09/29/18 07:04 ALT 130 units/L (7-56) H 09/29/18 07:04 Alkaline Phosphatase 306 units/L (35-129) H 09/29/18 07:04 Ammonia 51.0 umol/L (25-60) 09/12/18 12:28 Total Creatine Kinase 101 units/L (55-170) 09/04/18 21:00 Troponin T < 0.010 ng/mL (0.00-0.029) 09/10/18 12:14 C-Reactive Protein 0.30 mg/dL (0.00-1.30) 09/27/18 15:56 Total Protein 7.9 g/dL (6.3-8.2) 09/29/18 07:04 Albumin 3.5 g/dL (3.9-5) L 09/29/18 07:04 Albumin/Globulin Ratio 0.8 % 09/29/18 07:04 Vitamin B12 1010 pg/mL (211-911) H 09/26/18 07:54 Folate 7.69 ng/mL (7.3-26.0) 09/26/18 07:54 TSH 0.960 mlU/mL (0.270-4.200) 09/04/18 21:00 Urine Color Yellow (Yellow) 09/04/18 23:30 Urine Turbidity Clear (Clear) 09/04/18 23:30 Urine pH 6.0 (5.0-7.0) 09/04/18 23:30 Ur Specific [place] 1.012 (1.003-1.030) 09/04/18 23:30 Urine Protein <15 mg/dl mg/dL (Negative) 09/04/18 23:30 Urine Glucose (UA) Neg mg/dL (Negative) 09/04/18 23:30 Urine Ketones Neg mg/dL (Negative) 09/04/18 23:30 Urine Blood Neg (Negative) 09/04/18 23:30 Urine Nitrite Neg (Negative) 09/04/18 23:30 Urine Bilirubin Neg (Negative) 09/04/18 23:30 Urine Urobilinogen < 2.0 mg/dL (<2.0) 09/04/18 23:30 Ur Leukocyte Esterase Neg (Negative) 09/04/18 23:30 Urine WBC (Auto) 1.0 /HPF (0.0-6.0) 09/04/18 23:30 Urine RBC (Auto) 2.0 /HPF (0.0-6.0) 09/04/18 23:30 Urine Bacteria (Auto) 1+ /HPF (Negative) 09/04/18 23:30 Urine Mucus Few /HPF 09/04/18 23:30 Urine Opiates Screen Presumptive negative 09/04/18 23:30 Urine Methadone Screen Presumptive negative 09/04/18 23:30 Ur Barbiturates Screen Presumptive negative 09/04/18 23:30 Ur Phencyclidine Scrn Presumptive negative 09/04/18 23:30 Ur Amphetamines Screen Presumptive negative 09/04/18 23:30 U Benzodiazepines Scrn Presumptive negative 09/04/18 23:30 Urine Cocaine Screen Presumptive negative 09/04/18 23:30 U Marijuana (THC) Screen Presumptive negative 09/04/18 23:30 Drugs of Abuse Note Disclamer 09/04/18 23:30 Plasma/Serum Alcohol < 0.01 % (0-0.07) 09/04/18 21:00 JAMEEL Screen Negative (Negative) 09/05/18 16:19 Sm ([place]) Antibody <1.0 AI (<1.0) 09/05/18 16:19 Mitochondria M2 Ab <=20.0 U (<=20.0) 09/05/18 16:19 Heparin-induced Plt Ab Negative (Negative) 09/24/18 10:14 UF Heparin High Dose 0 % Release 09/24/18 10:14 KIERAN UFH Low Dose 0.1 0 % Release 09/24/18 10:14 KIERAN UFH Low Dose 0.5 0 % Release 09/24/18 10:14 CMV DNA PCR log cop breaker/mL See scanned results 09/08/18 16:50 Hepatitis A IgM Ab Non-reactive (NonReactive) 09/27/18 15:56 Hep Bs Antigen Non-reactive (Negative) 09/27/18 15:56 Hep B Core IgM Ab Non-reactive (NonReactive) 09/27/18 15:56 Hepatitis C Antibody Non-reactive (NonReactive) 09/27/18 15:56 Miscellaneous Test Flexitest 1 09/24/18 10:14 Active Medications - Current Medications Current Medications: Generic Name Dose Route Start Last Admin Trade Name Freq PRN Reason Stop Dose Admin Acetaminophen 650 mg 09/05/18 02:48 09/09/18 06:44 Tylenol PO 650 mg Q4H PRN Administration Pain MILD(1-3)/Fever >100.5/VILLAREAL Atovaquone 750 mg 09/28/18 13:00 09/29/18 09:56 Mepron PO 750 mg BID GLEN Administration Emtricitabine 200 mg 09/20/18 14:00 09/29/18 09:54 Emtriva PO 200 mg QDAY GLEN Administration Famotidine 10 mg 09/22/18 22:00 09/29/18 09:55 Pepcid PO 10 mg BID GLEN Administration Sodium Chloride 1,000 mls @ 100 mls/hr 09/16/18 08:00 09/23/18 12:46 Nacl 0.9% 1000 Ml IV 100 mls/hr DIRECT GLEN Administration Micafungin Sodium 100 mg/ 100 mls @ 100 mls/hr 09/24/18 14:00 09/29/18 17:01 Sodium Chloride IV Not Given QDAY GLEN Protocol Megestrol Acetate 400 mg 09/24/18 10:00 09/29/18 09:55 Megace PO 400 mg QDAY GLEN Administration Midodrine 10 mg 09/05/18 19:00 09/29/18 17:07 Proamatine PO 10 mg TID@0800,1200,1600 GLEN Administration Nystatin 500,000 unit 09/10/18 20:00 09/29/18 17:07 Nystatin PO 500,000 unit TID GLEN Administration Ondansetron HCl 4 mg 09/05/18 02:48 09/10/18 13:06 Zofran IV 4 mg Q8H PRN Administration Nausea And Vomiting Sodium Chloride 10 ml 09/05/18 10:00 09/29/18 09:56 Sodium Chloride Flush Syringe 10 Ml IV 10 ml BID GLEN Administration Sodium Chloride 10 ml 09/05/18 02:48 Sodium Chloride Flush Syringe 10 Ml IV PRN PRN LINE FLUSH Tenofovir Disoproxil Fumarate 300 mg 09/20/18 14:00 09/29/18 09:54 Viread PO 300 mg QDAY GLEN Administration Nutrition/Malnutrition Assess - Dietary Evaluation Nutrition/Malnutrition Findings: Nutrition Notes Start: 09/06/18 15:57 Freq: Status: Active Protocol: Document 09/27/18 14:12 RM (Rec: 09/27/18 14:16 RM [id number]) Nutrition Notes Initial or Follow up Reassessment Other Pertinent Diagnosis HIV/AIDS, noncompliance, oral candidiasis Current Diet Regular + Ensure Enlive TID Labs/Tests Reviewed Pertinent Medications Reviewed Height 5 ft 3 in Weight 48.1 kg [place] Body Weight (kg) 56.36 BMI 18.8 Subjective/Other Information Pt stated that he eats bites of his meals but drinks the Ensure Enlive. Noted empty Ensure Enlive bottle at bedside. Pt requested Ensure Enlive at time of visit and expert medical writer brought it to him. Percent of energy/protein needs met: 68%/100% Burn Absent Trauma Absent #1 Nutrition Diagnosis Malnutrition Diagnosis Progress(for reassessment Continues documentation) Is patient on ventilator? No Is Patient Ambulatory and/or Out of Bed No REE-(Arrington-St. Jeor-confined to bed) [phone] Calculation Used for Recommendations Arrington-St Jeor Additional Notes Pro needs 1.2-1.5g/k-69 g /day Fluid needs 1ml/kcal Nutrition Intervention Change Diet Order: Continue current Add Supplement/Snack (indicate name/kcal Ensure Enlive TID /protein ) Provides kCal: 1,050 Provides Protein (gm) 60 Goal #1 Meet at least 75% of calorie and protein needs Anticipated Discharge Needs: Regular diet Follow-Up By: 09/30/18 Additional Comments Follow for PO and ONS intakes
[2018-09-30] MEDS: NYSTATIN PO SCH ×3 (08:00→21:52)
--- NOTE | 2018-09-30 08:05 | Hem/Onc Progress Note ---
Assessment and Plan 1. Anemia, leukopenia, thrombocytopenia. The question arises if this is HIV related, medication related, or infection related. deficiency Ix. bone marrow aspiration biopsy including culture. 2. smear evaluation. 3. Abnormal liver function test. 4. Iron is low, but ferritin is high, may be inflammatory etiology. 5. Human immunodeficiency virus. 6. The ID team following. 7. Micafungin. I had spoken with the pharmacy, based on the timing of the episodes. The patient was on IV Bactrim and then oral Bactrim, micafungin was used for a few days and stopped and restarted. 8. History of Carolann. 9. History of being treated for pneumonia. 10. Malnutrition. I will follow the patient during inpatient stay. eval bone marrow biopsy. 09/30 - wbc - plt better path smear - schistocytes - but plt better [id number] ordered BMBx not done as pt had low BP - pt NPO for same cause of low plt unclear as plt improved before oral bactrim could be stopped micafungin vs oral bactrim vs other causes BMBx to look for granulomas and culture today ANC 1, hb and plt better - Patient Problems (1) Pancytopenia Current Visit: Yes Status: Acute Subjective Date of service: 09/30/18 Principal diagnosis: pancytopenia Interval history: did not get BMBx is NPO for same Objective - Constitutional Vitals: Last Vital Signs Temp 99.0 F 09/30/18 05:42 Pulse 64 09/30/18 05:42 Resp 18 09/30/18 05:42 BP 90/58 09/30/18 05:42 Pulse Ox 97 09/30/18 05:42 Pain Intensity (0-10): denies any pain General appearance: no acute distress Performance status: 4-completely disabled - EENT Eyes: EOM intact ENT: hearing intact - Neck Neck: normal ROM - Respiratory Respiratory effort: Positive: normal Respiratory: bilateral: CTA - Cardiovascular Heart Sounds: Present: S1 & S2 Extremities: No edema - Gastrointestinal General gastrointestinal: Present: soft, non-tender Rectal Exam: deferred - Genitourinary Male genitourinary: Present: deferred - Integumentary Integumentary: warm - Musculoskeletal Musculoskeletal: generalized weakness - Neurologic Neurologic: moves all extremities - Labs Lab Results: Laboratory Results - last 24 hr 09/29/18 09/29/18 07:04 07:04 WBC 1.5 L* RBC 2.90 L Hgb 8.6 L Hct 26.6 L MCV 92 MCH 30 MCHC 32 RDW 20.4 H Plt Count 132 L Add Manual Diff Complete Total Counted 100 Seg Neuts % (Manual) 56.0 Band Neutrophils % 1.0 Lymphocytes % (Manual) 27.0 Reactive Lymphs % (Man) 0 Monocytes % (Manual) 16.0 H Eosinophils % (Manual) 0 Basophils % (Manual) 0 Metamyelocytes % 0 Myelocytes % 0 Promyelocytes % 0 Blast Cells % 0 Nucleated RBC % 3.0 H Seg Neutrophils # Man 0.8 L Band Neutrophils # 0.0 Lymphocytes # (Manual) 0.4 L Abs React Lymphs (Man) 0.0 Monocytes # (Manual) 0.2 Eosinophils # (Manual) 0.0 Basophils # (Manual) 0.0 Metamyelocytes # 0.0 Myelocytes # 0.0 Promyelocytes # 0.0 Blast Cells # 0.0 WBC Morphology Not Reportable Hypersegmented Neuts Not Reportable Hyposegmented Neuts Not Reportable Hypogranular Neuts Not Reportable Smudge Cells Not Reportable Toxic Granulation Not Reportable Toxic Vacuolation Not Reportable Dohle Bodies Not Reportable Pelger-Huet Anomaly Not Reportable [place] Rods Not Reportable Platelet Estimate Consistent w auto Clumped Platelets Not Reportable Plt Clumps, EDTA Not Reportable Large Platelets Not Reportable Giant Platelets Not Reportable Platelet Satelliting Not Reportable Plt Morphology Comment Not Reportable RBC Morphology Not Reportable Dimorphic RBCs Not Reportable Polychromasia Not Reportable Hypochromasia Not Reportable Poikilocytosis Not Reportable Anisocytosis 1+ Microcytosis Not Reportable Macrocytosis Few Spherocytes Not Reportable Pappenheimer Bodies Not Reportable Sickle Cells Not Reportable Target Cells Not Reportable Tear Drop Cells Not Reportable Ovalocytes 1+ Helmet Cells Not Reportable [place] Bodies Not Reportable [place] Rings Not Reportable [place] Cells Not Reportable Bite Cells Not Reportable Crenated Cell Not Reportable Elliptocytes Not Reportable Acanthocytes (Spur) Not Reportable Rouleaux Not Reportable Hemoglobin C Crystals Not Reportable Schistocytes Not Reportable Malaria parasites Not Reportable Carlos A Bodies Not Reportable Hem Pathologist Commnt No Sodium 141 Potassium 4.5 Chloride 106.8 Carbon Dioxide 23 Anion Gap 16 BUN 26 H Creatinine 1.0 Estimated GFR > 60 BUN/Creatinine Ratio 26 Glucose 86 Calcium 9.0 Total Bilirubin 0.30 AST 304 H ALT 130 H Alkaline Phosphatase 306 H Total Protein 7.9 Albumin 3.5 L Albumin/Globulin Ratio 0.8 Medications & Allergies - Medications Allergies/Adverse Reactions: Allergies No Known Allergies Allergy (Verified 07/18/18 14:08) Home Medications: Home Medications Medication Instructions Recorded Confirmed Last Taken Type Azithromycin [Zithromax TAB] 1,200 mg PO QWEEK #4 tablet 06/18/18 09/14/18 Unknown Rx Pantoprazole [Protonix TAB] 40 mg PO DAILY #30 tablet 06/19/18 09/14/18 Unknown Rx Nystas/Diphen/Xyl Visc/Mylanta 15 ml PO TID 14 Days oral.liqd 07/18/18 09/14/18 Unknown Rx [Magic Mouthwash] Nystas/Diphen/Xyl Visc/Mylanta 15 ml PO TID 30 Days #1 udc 07/23/18 09/14/18 Unknown Rx [Magic Mouthwash] Sulfamethoxazole/Trimethoprim 1 each PO QDAY 30 Days #30 tablet 07/23/18 Unknown Rx [Bactrim DS TAB] Posaconazole [Noxafil] 300 mg PO BID 1 Days #6 tablet. 08/03/18 09/14/18 Unknown Rx Posaconazole [Noxafil] 300 mg PO QDAY 13 Days #39 08/03/18 09/14/18 Unknown Rx tablet. Acyclovir [Zovirax Tab] 400 mg PO Q8H 30 Days #90 tab 08/04/18 09/14/18 Unknown Rx Azithromycin [Zithromax TAB] 1,200 mg PO QDAY 30 Days #8 tablet 08/04/18 09/14/18 Unknown Rx Loperamide [Imodium] 2 mg PO Q2H PRN #30 capsule 08/04/18 09/14/18 Unknown Rx Midodrine HCl 2.5 mg PO DAILY #30 tablet 08/04/18 09/14/18 Unknown Rx Active Medications: Generic Name Dose Route Start Last Admin Trade Name Freq PRN Reason Stop Dose Admin Acetaminophen 650 mg 09/05/18 02:48 09/09/18 06:44 Tylenol PO 650 mg Q4H PRN Administration Pain MILD(1-3)/Fever >100.5/VILLAREAL Atovaquone 750 mg 09/28/18 13:00 09/29/18 22:11 Mepron PO 750 mg BID GLEN Administration Emtricitabine 200 mg 09/20/18 14:00 09/29/18 09:54 Emtriva PO 200 mg QDAY GLEN Administration Famotidine 10 mg 09/22/18 22:00 09/29/18 22:11 Pepcid PO 10 mg BID GLEN Administration Sodium Chloride 1,000 mls @ 100 mls/hr 09/16/18 08:00 09/23/18 12:46 Nacl 0.9% 1000 Ml IV 100 mls/hr DIRECT GLEN Administration Micafungin Sodium 100 mg/ 100 mls @ 100 mls/hr 09/24/18 14:00 09/29/18 17:01 Sodium Chloride IV Not Given QDAY [facility] Protocol Megestrol Acetate 400 mg 09/24/18 10:00 09/29/18 09:55 Megace PO 400 mg QDAY GLEN Administration Midodrine 10 mg 09/05/18 19:00 09/29/18 17:07 Proamatine PO 10 mg TID@0800,1200,1600 GLEN Administration Nystatin 500,000 unit 09/10/18 20:00 09/29/18 20:46 Nystatin PO 500,000 unit TID GLEN Administration Ondansetron HCl 4 mg 09/05/18 02:48 09/10/18 13:06 Zofran IV 4 mg Q8H PRN Administration Nausea And Vomiting Sodium Chloride 10 ml 09/05/18 10:00 09/29/18 22:11 Sodium Chloride Flush Syringe 10 Ml IV 10 ml BID GLEN Administration Sodium Chloride 10 ml 09/05/18 02:48 Sodium Chloride Flush Syringe 10 Ml IV PRN PRN LINE FLUSH Tenofovir Disoproxil Fumarate 300 mg 09/20/18 14:00 09/29/18 09:54 Viread PO 300 mg QDAY GLEN Administration
--- NOTE | 2018-09-30 09:09 | Progress Note ---
Assessment and Plan Severe sepsis on background of chronic hypotension AMS due to acute metabolic encephalopathy: HIV/AIDS Panycytopenia Severe protein calorie malnutrition Transaminitis - may be due to ischemic hepatitis, HIV/AIDs hepatopathy, infectious etiology with viral hepatitis, vs drug toxicity. Anemia of chronic disease Acute Renal Failure, resolved Oral Candidiasis Non-adherence to medical therapy Hyperammonemia Metabolic acidosis - Continue midodrine - Anti-infective per ID service - Nutritional support, o appetite stimulant - SCDs for VTE prophylaxis, patient declines pharmacologic prophylaxis - PT/OT to treat - Limit blood draws, in view of anemia Dispo planning per primary service Continue all supportive care Subjective Date of service: 09/30/18 Principal diagnosis: pancytopenia Interval history: Patient is seen today for: severe sepsis, hypotension, acute encephaloapthy, HIV-AIDS Seen and examined at bedside; 24-hour events reviewed; nursing and respiratory care staff consulted; no adverse overnight events reported to me; resting in bed; still with cognitive dysfunction; denies acute chest pains; off supplemental oxygen; no emesis or overt aspiration; appetite much improved Objective Vital Signs - 12hr 09/30/18 09/30/18 00:06 05:42 Temperature 99.0 F 99.0 F Pulse Rate 52 L 64 Respiratory 16 18 Rate Blood Pressure 99/69 90/58 O2 Sat by Pulse 98 97 Oximetry Constitutional: no acute distress, asleep, other (Weak) Eyes: non-icteric ENT: oropharynx moist, oropharyngeal exudate pre, other (mallampati 2) Neck: supple, no lymphadenopathy, no JVD, other Ascultation: Bilateral: clear, diminished breath sounds, other (Prolonged expiratory phase.) Cardiovascular: regular rate and rhythm Gastrointestinal: normoactive bowel sounds, soft, non-tender, non-distended Integumentary: normal Extremities: no cyanosis, no edema, pulses normal, no ischemia or petechiae Neurologic: non-focal exam (grossly), pupils equal and round, other (weak; mild cognitive dysfunction) Psychiatric: other (affect flat) CBC and BMP: 10/01/18 07:30 10/01/18 07:30 ABG, PT/INR, D-dimer: PT/INR, D-dimer PT 12.8 Sec. (12.2-14.9) 09/27/18 10:21 INR 0.91 (0.87-1.13) 09/27/18 10:21 Abnormal lab findings: Abnormal Labs 09/04/18 09/04/18 09/04/18 21:00 21:00 22:32 WBC RBC 3.23 L Hgb 9.6 L Hct 28.9 L RDW 18.8 H Plt Count Lymph % (Auto) [place] % (Auto) 12.5 H Lymph # 0.7 L Seg Neutrophils % 72.4 H Seg Neuts % (Manual) Lymphocytes % (Manual) Monocytes % (Manual) Nucleated RBC % Seg Neutrophils # Man Lymphocytes # (Manual) PT Sodium Potassium Chloride 109.9 H Carbon Dioxide 21 L BUN 31 H Creatinine Glucose Lactic Acid 2.40 H* Calcium 8.2 L Iron TIBC Ferritin AST 200 H ALT 136 H Alkaline Phosphatase 138 H Ammonia Total Protein Albumin 3.5 L Vitamin B12 09/04/18 09/05/18 09/05/18 22:32 16:19 16:19 WBC RBC Hgb Hct RDW Plt Count Lymph % (Auto) [place] % (Auto) Lymph # Seg Neutrophils % Seg Neuts % (Manual) Lymphocytes % (Manual) Monocytes % (Manual) Nucleated RBC % Seg Neutrophils # Man Lymphocytes # (Manual) PT Sodium Potassium Chloride 112.4 H Carbon Dioxide 19 L BUN Creatinine Glucose Lactic Acid Calcium 8.1 L Iron TIBC 223 L Ferritin AST 241 H ALT 138 H Alkaline Phosphatase Ammonia 64.0 H Total Protein Albumin 3.1 L Vitamin B12 09/05/18 09/06/18 09/06/18 16:19 10:40 10:40 WBC 2.4 L RBC 2.67 L Hgb 7.7 L Hct 23.7 L RDW 18.7 H Plt Count 135 L Lymph % (Auto) 10.0 L [place] % (Auto) 8.4 H Lymph # 0.2 L Seg Neutrophils % 81.1 H Seg Neuts % (Manual) Lymphocytes % (Manual) Monocytes % (Manual) Nucleated RBC % Seg Neutrophils # Man Lymphocytes # (Manual) PT Sodium Potassium Chloride 112.1 H Carbon Dioxide 19 L BUN Creatinine 0.7 L Glucose Lactic Acid Calcium 7.8 L Iron TIBC Ferritin 2880.0 H AST 263 H ALT 143 H Alkaline Phosphatase Ammonia Total Protein 6.1 L Albumin 2.8 L Vitamin B12 09/07/18 09/07/18 09/08/18 10:38 10:38 06:39 WBC RBC 2.86 L Hgb 8.3 L Hct 25.2 L RDW 18.3 H Plt Count 123 L Lymph % (Auto) 6.1 L [place] % (Auto) Lymph # 0.3 L Seg Neutrophils % 87.3 H Seg Neuts % (Manual) Lymphocytes % (Manual) Monocytes % (Manual) Nucleated RBC % Seg Neutrophils # Man Lymphocytes # (Manual) PT Sodium Potassium Chloride Carbon Dioxide BUN Creatinine Glucose Lactic Acid Calcium Iron 26 L TIBC 212 L Ferritin 2762.0 H AST ALT Alkaline Phosphatase Ammonia Total Protein Albumin Vitamin B12 09/08/18 09/08/18 09/09/18 06:39 13:43 07:03 WBC RBC Hgb Hct RDW Plt Count Lymph % (Auto) [place] % (Auto) Lymph # Seg Neutrophils % Seg Neuts % (Manual) Lymphocytes % (Manual) Monocytes % (Manual) Nucleated RBC % Seg Neutrophils # Man Lymphocytes # (Manual) PT Sodium Potassium 3.2 L 3.5 L Chloride 111.9 H 108.6 H Carbon Dioxide 13 L 15 L BUN 6 L 4 L Creatinine Glucose 118 H Lactic Acid Calcium 7.5 L 7.5 L Iron TIBC Ferritin AST 117 H 130 H ALT 87 H 86 H Alkaline Phosphatase Ammonia Total Protein 5.6 L 6.0 L Albumin 2.6 L 2.6 L Vitamin B12 09/09/18 09/10/18 09/10/18 07:31 04:26 04:26 WBC 3.5 L 2.1 L RBC 2.82 L 3.10 L Hgb 8.2 L 9.0 L Hct 24.6 L 27.1 L RDW 18.8 H 18.6 H Plt Count 136 L 139 L Lymph % (Auto) Canadian % (Auto) Lymph # Seg Neutrophils % Seg Neuts % (Manual) 77.0 H Lymphocytes % (Manual) 11.0 L Monocytes % (Manual) 11.0 H Nucleated RBC % Seg Neutrophils # Man 1.6 L Lymphocytes # (Manual) 0.2 L PT Sodium Potassium Chloride 112.7 H Carbon Dioxide 14 L BUN 5 L Creatinine Glucose 109 H Lactic Acid Calcium 7.7 L Iron TIBC Ferritin AST 110 H ALT 76 H Alkaline Phosphatase Ammonia Total Protein 6.0 L Albumin 2.8 L Vitamin B12 09/11/18 09/12/18 09/13/18 05:22 12:28 07:23 WBC 1.1 L* RBC 2.82 L Hgb 8.2 L Hct 25.5 L RDW 19.5 H Plt Count 103 L Lymph % (Auto) [place] % (Auto) Lymph # Seg Neutrophils % Seg Neuts % (Manual) Lymphocytes % (Manual) Monocytes % (Manual) 18.0 H Nucleated RBC % Seg Neutrophils # Man 0.6 L Lymphocytes # (Manual) 0.3 L PT 15.1 H Sodium 133 L Potassium 3.5 L Chloride 108.8 H Carbon Dioxide 14 L BUN 6 L Creatinine Glucose 123 H Lactic Acid Calcium 7.4 L Iron TIBC Ferritin AST 126 H ALT 77 H Alkaline Phosphatase Ammonia Total Protein 5.7 L Albumin 2.6 L Vitamin B12 09/15/18 09/15/18 09/17/18 00:51 04:31 10:52 WBC 1.2 L* 1.2 L* RBC 3.38 L 3.03 L Hgb 9.7 L 8.9 L Hct 29.5 L 27.2 L RDW 19.0 H 19.5 H Plt Count 95 L 59 L Lymph % (Auto) [place] % (Auto) Lymph # Seg Neutrophils % Seg Neuts % (Manual) Lymphocytes % (Manual) Monocytes % (Manual) 24.0 H 14.0 H Nucleated RBC % 2.0 H Seg Neutrophils # Man 0.6 L 0.8 L Lymphocytes # (Manual) 0.3 L 0.2 L PT Sodium Potassium Chloride 112.0 H Carbon Dioxide 13 L BUN Creatinine Glucose 65 L Lactic Acid Calcium Iron TIBC Ferritin AST ALT Alkaline Phosphatase Ammonia Total Protein Albumin Vitamin B12 09/21/18 09/24/18 09/26/18 15:26 00:33 07:54 WBC 1.6 L* 0.7 L* RBC 2.94 L 2.67 L Hgb 8.8 L 7.8 L Hct 26.3 L 23.8 L RDW 20.0 H 20.3 H Plt Count 26 L 28 L Lymph % (Auto) [place] % (Auto) Lymph # Seg Neutrophils % Seg Neuts % (Manual) Lymphocytes % (Manual) Monocytes % (Manual) 12.0 H 10.0 H Nucleated RBC % Seg Neutrophils # Man 1.0 L 0.4 L Lymphocytes # (Manual) 0.4 L 0.1 L PT Sodium Potassium Chloride Carbon Dioxide BUN Creatinine Glucose Lactic Acid Calcium Iron TIBC Ferritin AST ALT Alkaline Phosphatase Ammonia Total Protein Albumin Vitamin B12 1010 H 04/21/19 04/21/19 04/22/19 14:59 14:59 06:28 WBC 2.0 L 2.0 L RBC 2.85 L 2.88 L Hgb 8.3 L 8.4 L Hct 25.6 L 25.5 L RDW 20.2 H 19.4 H Plt Count 83 L D 84 L Lymph % (Auto) [place] % (Auto) Lymph # Seg Neutrophils % Seg Neuts % (Manual) 72.0 H Lymphocytes % (Manual) 11.0 L Monocytes % (Manual) 19.0 H 10.0 H Nucleated RBC % Seg Neutrophils # Man 1.3 L 1.4 L Lymphocytes # (Manual) 0.2 L 0.3 L PT Sodium Potassium Chloride 108.0 H Carbon Dioxide BUN Creatinine Glucose 102 H Lactic Acid Calcium Iron TIBC Ferritin AST 364 H ALT 128 H Alkaline Phosphatase 311 H Ammonia Total Protein Albumin 3.1 L Vitamin B12 09/27/18 09/28/18 09/28/18 06:28 06:03 06:03 WBC 2.1 L RBC 2.74 L Hgb 8.1 L Hct 24.6 L RDW 20.3 H Plt Count 117 L Lymph % (Auto) [place] % (Auto) Lymph # Seg Neutrophils % Seg Neuts % (Manual) 78.0 H Lymphocytes % (Manual) Monocytes % (Manual) 8.0 H Nucleated RBC % Seg Neutrophils # Man 1.6 L Lymphocytes # (Manual) 0.3 L PT Sodium Potassium Chloride 110.5 H 108.4 H Carbon Dioxide BUN 23 H 27 H Creatinine Glucose Lactic Acid Calcium Iron TIBC Ferritin AST ALT Alkaline Phosphatase Ammonia Total Protein Albumin Vitamin B12 09/28/18 09/29/18 09/29/18 06:03 07:04 07:04 WBC 1.5 L* RBC 2.90 L Hgb 8.6 L Hct 26.6 L RDW 20.4 H Plt Count 132 L Lymph % (Auto) [place] % (Auto) Lymph # Seg Neutrophils % Seg Neuts % (Manual) Lymphocytes % (Manual) Monocytes % (Manual) 16.0 H Nucleated RBC % 3.0 H Seg Neutrophils # Man 0.8 L Lymphocytes # (Manual) 0.4 L PT Sodium Potassium Chloride Carbon Dioxide BUN 26 H Creatinine Glucose Lactic Acid Calcium Iron TIBC Ferritin AST 380 H 304 H ALT 138 H 130 H Alkaline Phosphatase 317 H 306 H Ammonia Total Protein Albumin 3.4 L 3.5 L Vitamin B12 Allied health notes reviewed: nursing
--- NOTE | 2018-09-30 09:40 | Progress Note ---
Assessment and Plan Culture 09/08/2018 Blood culture: no growth 09/08/2018 Serum Cr Ag: negative 09/09/2018 Blood culture: no growth thus far 09/09/2018 urine culture no growth Fungal blood culture: no growth to date A/P: 42 year old male, know to ID from previous admissions on 06/23/18-06/19/18 and 07/18/18- 08/04/18 for pneumonia, HIV/AIDS, severe oral candidiasis and diarrhea. CD4 count 11. Viral Load [id number]. HIV genotype 06/18/2018 with few resistance mutations. CMV negative. Patient remains noncompliant with his HAART therapy. Now admitted with: 1. Altered Mental Status/Acute Encephalopathy: Continuing. 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 CT head shows no acute intracranial abnormality. + chronic maxillary and ethmoid sinusitis. MRI images showing brain atrophy, no focal lesions to suggest toxoplasma, PML, ventriculitis, HIV PREVENTION SPECIALIST lymphoma or other space occupying lesions. Crypto Ag is negative. TTE shows no valvular vegetation, EF 30-35 %.Fungitell: negative. CMV DNR - <200 2. Oral Candidiasis: better on micafungin; White plaque on the oropharynx, tongue and inner and outer portion of the lips. h/o resistant Carolann. Continue Nystatin. 3. HIV/AIDS: Last admission in June CD4 count 11. Viral load high. Prognosis is poor.HIV therapy started 09/20/18 with Truvada + Tivicay. Currently compliant with medication regimen at hospital. CMV DNA PCR- negative, HHV8 PCR- negative. 4. Severe Malnutrition: related to HIV AIDS 5. Transaminitis: worsening ? unclear etiology. Abdominal ultrasound unremarkable. CT abdomen showing possible enteritis and somewhat inhomogenous l iver. may be due to ischemic hepatitis, HIV/AIDS hepatopathy, infectious etiology with viral hepatitis, vs drug toxicity- GI following. Stable to improving. Evaluating for disseminated MAC, fungal/mycolytic blood cultures in process. HAV, HBV, HCV - nonreactive RUQ ultrasound - Unremarkable liver and biliary system. Mild medical renal disease. 6. New Fevers : Resolved. 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 CAP vs PCP: Chest CT shows Bilateral pneumonia with findings most prominent in the left lower lobe as described. Bronchiectatic changes in left lower lobe noted also. Scattered blebs in the left lung. Fungitell negative, so PCP quite less likely. bilateral ground glass opacities could be fluid given cardiomyopathy and low EF. 8. Pancytopenia: better today; likely from untreated HIV and AIDS. Antiretroviral treatment started 09/20/18. 9. Diarrhea: Resolved per nursing. unable to obtain samples for OVA & Parasite antigen ,Giardia and cryptosporidium antigen ordered. CT Abdomen unremarkable. Plan: - continue mepron fro PJP prophylaxis -continue nystatin swish and swallow -continue Micafungin 100mg IV q day D7 -Continue Truvada + Tivicay --f/u AFB fungal blood culture -F/u bone marrow biopsy for histopath and fungal AFB stain- CT made aware of his chronic hypotension, ok to proceed with CT -guided BM biopsy [facility] M: [id number] O:[phone] Subjective Date of service: 09/30/18 Principal diagnosis: pancytopenia Interval history: Patient seen and examined. Asleep, easy to arouse. Calm with continued confusion. Objective - Exam Narrative Exam: Constitutional: Asleep, easy to arouse. Acute encephalopathy. . cachexia. No a cute distress Head, Ears, Nose: Normocephalic, atraumatic. External ears, nose normal Eyes: Conjunctivae/corneas clear. No icterus. No ptosis. Neck: Supple, no meningeal signs Oral: dentition poor. ,Oral candidiasis , white plaque on the oropharynx, tongue, inner and outer portion of the lips- improved Cardiovascular: S1, S2 normal. Respiratory: Good air entry, clear to auscultation bilaterally GI: Soft,, + tenderness on exam, bowel sounds normal. No peritoneal signs. + diarrhea Musculoskeletal: No pedal edema, no cyanosis. Skin: No rash or abscess. Hem/Lymphatic: No palpable cervical or supraclavicular nodes. No lymphangitis Psych: Mood ok. Affect flat, Neurological: Asleep, easily arousable. no acute distress - Constitutional Vitals: Vital Signs Temp Pulse Resp BP Pulse Ox 99.0 F 64 18 90/58 97 09/30/18 05:42 09/30/18 05:42 09/30/18 05:42 09/30/18 05:42 09/30/18 05:42 Temperature -Last 24 Hours Temperature 99.0 F Temperature 99.0 F Temperature 97.9 F Temperature 98.2 F - Labs CBC & Chem 7: 09/29/18 07:04 09/29/18 07:04 Labs: Abnormal lab results 09/29/18 Range/Units 07:04 Monocytes % (Manual) 16.0 H (0.0-7.3) % Nucleated RBC % 3.0 H (0.0-0.9) % Seg Neutrophils # Man 0.8 L (1.8-7.7) K/mm3 Lymphocytes # (Manual) 0.4 L (1.2-5.4) K/mm3
[2018-09-30] MEDS: PROAMATINE PO SCH ×3 (10:56→18:27)
[2018-09-30] MEDS: MYCAMINE 100 MG in NACL 0.9% 100 ML IV SCH (10:56)
[2018-09-30] MEDS: PEPCID PO SCH ×2 (10:56→21:52)
--- NOTE | 2018-09-30 11:32 | Progress Note ---
Assessment and Plan Assessment and plan: CT head shows no acute intracranial abnormality. + chronic maxillary and ethmoid sinusitis. MRI images showing brain atrophy, no focal lesions to suggest toxoplasma, PML, ventriculitis, BUSINESS COORDINATOR lymphoma or other space occupying lesions. Crypto Ag is negative. TTE shows no valvular vegetation, EF 30-35 %. -Fungitell: negative -CMV DNR - <200 Unfortunately, patient required restraints this morning due to agitation. Continue to monitor, educated nursing with reorientation. Chronic hypotension. 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 Cardiology with no further recommendations. Patient with grave prognosis, cardiology recommending conservative approach. Oral candidiasis. h/o resistant Carolann. improved. Continue Nystatin Severe protein calorie malnutrition. related to HIV AIDS. HIV/AIDS. Last admission in June CD4 count 11. Viral load high. Prognosis is poor. Agreed to go to SNF. HIV therapy started 09/20/18 with Truvada + Tivicay. Continue Bactrim DS daily. Transaminitis. Abdominal ultrasound unremarkable. CT abdomen showing possible enteritis and somewhat inhomogenous liver. may be due to ischemic hepatitis, HIV /AIDS hepatopathy, infectious etiology with viral hepatitis, vs drug toxicity- GI following. Stable to improving. Evaluating for disseminated MAC, fungal/mycolytic blood cultures in process. 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 TTE no valvular vegetation, EF 30-35% Bilateral pneumonia. Chest CT shows Bilateral pneumonia with findings most prominent in the left lower lobe as described. Bronchiectatic changes in left lower lobe noted also. Scattered blebs in the left lung. Fungitell negative, so PCP quite less likely. bilateral ground glass opacities could be fluid given cardiomyopathy and low EF. Disposition. Awaiting SNF placement. Cardiology and ID recommend Hospice, but patient refuses. History Interval history: Patient seen and examined medical records reviewed Chronically and critically ill looking Complains of generalized weakness Vital signs noted Hospitalist Physical - Constitutional Vitals: Temp Pulse Resp BP Pulse Ox 99.0 F 64 18 90/58 97 09/30/18 05:42 09/30/18 05:42 09/30/18 05:42 09/30/18 05:42 09/30/18 05:42 General appearance: Present: no acute distress, well-nourished - EENT Eyes: Present: PERRL, EOM intact - Respiratory Respiratory effort: normal Respiratory: bilateral: diminished, rhonchi, negative: rales, wheezing - Cardiovascular Rhythm: regular Heart Sounds: Present: S1 & S2 - Extremities Extremities: no ischemia, No edema - Abdominal General gastrointestinal: soft, non-tender, non-distended, normal bowel sounds - Integumentary Integumentary: Present: clear, warm - Psychiatric Psychiatric: appropriate mood/affect, cooperative - Neurologic Neurologic: moves all extremities Results - Labs CBC & Chem 7: 09/29/18 07:04 09/29/18 07:04 Labs: Laboratory Last Values WBC 1.5 K/mm3 (4.5-11.0) L* 09/29/18 07:04 RBC 2.90 M/mm3 (3.65-5.03) L 09/29/18 07:04 Hgb 8.6 gm/dl (11.8-15.2) L 09/29/18 07:04 Hct 26.6 % (35.5-45.6) L 09/29/18 07:04 MCV 92 fl (84-94) 09/29/18 07:04 MCH 30 pg (28-32) 09/29/18 07:04 MCHC 32 % (32-34) 09/29/18 07:04 RDW 20.4 % (13.2-15.2) H 09/29/18 07:04 Plt Count 132 K/mm3 (140-440) L 09/29/18 07:04 Lymph % (Auto) 6.1 % (13.4-35.0) L 09/08/18 06:39 [place] % (Auto) Senior Health Educator 09/28/18 06:03 Eos % (Auto) 0.0 % (0.0-4.3) 09/08/18 06:39 Baso % (Auto) 0.2 % (0.0-1.8) 09/08/18 06:39 Lymph # 0.3 K/mm3 (1.2-5.4) L 09/08/18 06:39 [place] # 0.3 K/mm3 (0.0-0.8) 09/08/18 06:39 Eos # 0.0 K/mm3 (0.0-0.4) 09/08/18 06:39 Baso # 0.0 K/mm3 (0.0-0.1) 09/08/18 06:39 Add Manual Diff Complete 09/29/18 07:04 Total Counted 100 09/29/18 07:04 Seg Neutrophils % 87.3 % (40.0-70.0) H 09/08/18 06:39 Seg Neuts % (Manual) 56.0 % (40.0-70.0) 09/29/18 07:04 Band Neutrophils % 1.0 % 09/29/18 07:04 Lymphocytes % (Manual) 27.0 % (13.4-35.0) 09/29/18 07:04 Reactive Lymphs % (Man) 0 % 09/29/18 07:04 Monocytes % (Manual) 16.0 % (0.0-7.3) H 09/29/18 07:04 Eosinophils % (Manual) 0 % (0.0-4.3) 09/29/18 07:04 Basophils % (Manual) 0 % (0.0-1.8) 09/29/18 07:04 Metamyelocytes % 0 % 09/29/18 07:04 Myelocytes % 0 % 09/29/18 07:04 Promyelocytes % 0 % 09/29/18 07:04 Blast Cells % 0 % 09/29/18 07:04 Nucleated RBC % 3.0 % (0.0-0.9) H 09/29/18 07:04 Seg Neutrophils # 4.5 K/mm3 (1.8-7.7) 09/08/18 06:39 Seg Neutrophils # Man 0.8 K/mm3 (1.8-7.7) L 09/29/18 07:04 Band Neutrophils # 0.0 K/mm3 09/29/18 07:04 Lymphocytes # (Manual) 0.4 K/mm3 (1.2-5.4) L 09/29/18 07:04 Abs React Lymphs (Man) 0.0 K/mm3 09/29/18 07:04 Monocytes # (Manual) 0.2 K/mm3 (0.0-0.8) 09/29/18 07:04 Eosinophils # (Manual) 0.0 K/mm3 (0.0-0.4) 09/29/18 07:04 Basophils # (Manual) 0.0 K/mm3 (0.0-0.1) 09/29/18 07:04 Metamyelocytes # 0.0 K/mm3 09/29/18 07:04 Myelocytes # 0.0 K/mm3 09/29/18 07:04 Promyelocytes # 0.0 K/mm3 09/29/18 07:04 Blast Cells # 0.0 K/mm3 09/29/18 07:04 Pathologist Review 09/24/18 00:33 WBC Morphology Not Reportable 09/29/18 07:04 Hypersegmented Neuts Not Reportable 09/29/18 07:04 Hyposegmented Neuts Not Reportable 09/29/18 07:04 Hypogranular Neuts Not Reportable 09/29/18 07:04 Smudge Cells Not Reportable 09/29/18 07:04 Toxic Granulation Not Reportable 09/29/18 07:04 Toxic Vacuolation Not Reportable 09/29/18 07:04 Dohle Bodies Not Reportable 09/29/18 07:04 Pelger-Huet Anomaly Not Reportable 09/29/18 07:04 Giovanni Rods Not Reportable 09/29/18 07:04 Platelet Estimate Consistent w auto 09/29/18 07:04 Clumped Platelets Not Reportable 09/29/18 07:04 Plt Clumps, EDTA Not Reportable 09/29/18 07:04 Large Platelets Not Reportable 09/29/18 07:04 Giant Platelets Not Reportable 09/29/18 07:04 Platelet Satelliting Not Reportable 09/29/18 07:04 Plt Morphology Comment Not Reportable 09/29/18 07:04 RBC Morphology Not Reportable 09/29/18 07:04 Dimorphic RBCs Not Reportable 09/29/18 07:04 Polychromasia Not Reportable 09/29/18 07:04 Hypochromasia Not Reportable 09/29/18 07:04 Poikilocytosis Not Reportable 09/29/18 07:04 Anisocytosis 1+ 09/29/18 07:04 Microcytosis Not Reportable 09/29/18 07:04 Macrocytosis Few 09/29/18 07:04 Spherocytes Not Reportable 09/29/18 07:04 Pappenheimer Bodies Not Reportable 09/29/18 07:04 Sickle Cells Not Reportable 09/29/18 07:04 Target Cells Not Reportable 09/29/18 07:04 Tear Drop Cells Not Reportable 09/29/18 07:04 Ovalocytes 1+ 09/29/18 07:04 Helmet Cells Not Reportable 09/29/18 07:04 [place] Bodies Not Reportable 09/29/18 07:04 [place] Rings Not Reportable 09/29/18 07:04 Cinthya Cells Not Reportable 09/29/18 07:04 Bite Cells Not Reportable 09/29/18 07:04 Crenated Cell Not Reportable 09/29/18 07:04 Elliptocytes Not Reportable 09/29/18 07:04 Acanthocytes (Spur) Not Reportable 09/29/18 07:04 Rouleaux Not Reportable 09/29/18 07:04 Hemoglobin C Crystals Not Reportable 09/29/18 07:04 Schistocytes Not Reportable 09/29/18 07:04 Malaria parasites Not Reportable 09/29/18 07:04 Carlos A Bodies Not Reportable 09/29/18 07:04 Hem Pathologist Commnt No 09/29/18 07:04 PT 12.8 Sec. (12.2-14.9) 09/27/18 10:21 INR 0.91 (0.87-1.13) 09/27/18 10:21 APTT 30.4 Sec. (24.2-36.6) 09/27/18 10:21 Heparin Anti-Xa, Unfract Negative (Negative) 09/24/18 10:14 Sodium 141 mmol/L (137-145) 09/29/18 07:04 Potassium 4.5 mmol/L (3.6-5.0) 09/29/18 07:04 Chloride 106.8 mmol/L (98-107) 09/29/18 07:04 Carbon Dioxide 23 mmol/L (22-30) 09/29/18 07:04 Anion Gap 16 mmol/L 09/29/18 07:04 BUN 26 mg/dL (9-20) H 09/29/18 07:04 Creatinine 1.0 mg/dL (0.8-1.5) 09/29/18 07:04 Estimated GFR > 60 ml/min 09/29/18 07:04 BUN/Creatinine Ratio 26 % 09/29/18 07:04 Glucose 86 mg/dL (75-100) 09/29/18 07:04 POC Glucose 91 (70-105) 09/09/18 07:18 Lactic Acid 1.30 mmol/L (0.7-2.0) 09/05/18 03:50 Calcium 9.0 mg/dL (8.4-10.2) 09/29/18 07:04 Iron 26 ug/dL (49-181) L 09/07/18 10:38 TIBC 212 mcg/dL (250-450) L 09/07/18 10:38 Ferritin 2762.0 ng/mL (13.0-400.0) H 09/07/18 10:38 Total Bilirubin 0.30 mg/dL (0.1-1.2) 09/29/18 07:04 Direct Bilirubin < 0.2 mg/dL (0-0.2) 09/28/18 06:03 Indirect Bilirubin 0.1 mg/dL 09/28/18 06:03 AST 304 units/L (5-40) H 09/29/18 07:04 ALT 130 units/L (7-56) H 09/29/18 07:04 Alkaline Phosphatase 306 units/L (35-129) H 09/29/18 07:04 Ammonia 51.0 umol/L (25-60) 09/12/18 12:28 Total Creatine Kinase 101 units/L (55-170) 09/04/18 21:00 Troponin T < 0.010 ng/mL (0.00-0.029) 09/10/18 12:14 C-Reactive Protein 0.30 mg/dL (0.00-1.30) 09/27/18 15:56 Total Protein 7.9 g/dL (6.3-8.2) 09/29/18 07:04 Albumin 3.5 g/dL (3.9-5) L 09/29/18 07:04 Albumin/Globulin Ratio 0.8 % 09/29/18 07:04 Vitamin B12 1010 pg/mL (211-911) H 09/26/18 07:54 Folate 7.69 ng/mL (7.3-26.0) 09/26/18 07:54 TSH 0.960 mlU/mL (0.270-4.200) 09/04/18 21:00 Urine Color Yellow (Yellow) 09/04/18 23:30 Urine Turbidity Clear (Clear) 09/04/18 23:30 Urine pH 6.0 (5.0-7.0) 09/04/18 23:30 Ur Specific [place] 1.012 (1.003-1.030) 09/04/18 23:30 Urine Protein <15 mg/dl mg/dL (Negative) 09/04/18 23:30 Urine Glucose (UA) Neg mg/dL (Negative) 09/04/18 23:30 Urine Ketones Neg mg/dL (Negative) 09/04/18 23:30 Urine Blood Neg (Negative) 09/04/18 23:30 Urine Nitrite Neg (Negative) 09/04/18 23:30 Urine Bilirubin Neg (Negative) 09/04/18 23:30 Urine Urobilinogen < 2.0 mg/dL (<2.0) 09/04/18 23:30 Ur Leukocyte Esterase Neg (Negative) 09/04/18 23:30 Urine WBC (Auto) 1.0 /HPF (0.0-6.0) 09/04/18 23:30 Urine RBC (Auto) 2.0 /HPF (0.0-6.0) 09/04/18 23:30 Urine Bacteria (Auto) 1+ /HPF (Negative) 09/04/18 23:30 Urine Mucus Few /HPF 09/04/18 23:30 Urine Opiates Screen Presumptive negative 09/04/18 23:30 Urine Methadone Screen Presumptive negative 09/04/18 23:30 Ur Barbiturates Screen Presumptive negative 09/04/18 23:30 Ur Phencyclidine Scrn Presumptive negative 09/04/18 23:30 Ur Amphetamines Screen Presumptive negative 09/04/18 23:30 U Benzodiazepines Scrn Presumptive negative 09/04/18 23:30 Urine Cocaine Screen Presumptive negative 09/04/18 23:30 U Marijuana (THC) Screen Presumptive negative 09/04/18 23:30 Drugs of Abuse Note Disclamer 09/04/18 23:30 Plasma/Serum Alcohol < 0.01 % (0-0.07) 09/04/18 21:00 JAMEEL Screen Negative (Negative) 09/05/18 16:19 Sm ([place]) Antibody <1.0 AI (<1.0) 09/05/18 16:19 Mitochondria M2 Ab <=20.0 U (<=20.0) 09/05/18 16:19 Heparin-induced Plt Ab Negative (Negative) 09/24/18 10:14 UF Heparin High Dose 0 % Release 09/24/18 10:14 KIERAN UFH Low Dose 0.1 0 % Release 09/24/18 10:14 KIERAN UFH Low Dose 0.5 0 % Release 09/24/18 10:14 CMV DNA PCR log hat copyist/mL See scanned results 09/08/18 16:50 Hepatitis A IgM Ab Non-reactive (NonReactive) 09/27/18 15:56 Hep Bs Antigen Non-reactive (Negative) 09/27/18 15:56 Hep B Core IgM Ab Non-reactive (NonReactive) 09/27/18 15:56 Hepatitis C Antibody Non-reactive (NonReactive) 09/27/18 15:56 Miscellaneous Test Flexitest 1 09/24/18 10:14 Active Medications - Current Medications Current Medications: Generic Name Dose Route Start Last Admin Trade Name Freq PRN Reason Stop Dose Admin Acetaminophen 650 mg 09/05/18 02:48 09/09/18 06:44 Tylenol PO 650 mg Q4H PRN Administration Pain MILD(1-3)/Fever >100.5/VILLAREAL Atovaquone 750 mg 09/28/18 13:00 09/29/18 22:11 Mepron PO 750 mg BID GLEN Administration Emtricitabine 200 mg 09/20/18 14:00 09/29/18 09:54 Emtriva PO 200 mg QDAY GLEN Administration Famotidine 10 mg 09/22/18 22:00 09/30/18 10:56 Pepcid PO 10 mg BID GLEN Administration Sodium Chloride 1,000 mls @ 100 mls/hr 09/16/18 08:00 09/23/18 12:46 Nacl 0.9% 1000 Ml IV 100 mls/hr DIRECT GLEN Administration Micafungin Sodium 100 mg/ 100 mls @ 100 mls/hr 09/24/18 14:00 09/30/18 10:56 Sodium Chloride IV 100 mls/hr QDAY GLEN Administration Protocol Megestrol Acetate 400 mg 09/24/18 10:00 09/29/18 09:55 Megace PO 400 mg QDAY GLEN Administration Midodrine 10 mg 09/05/18 19:00 09/30/18 10:56 Proamatine PO 10 mg TID@0800,1200,1600 GLEN Administration Nystatin 500,000 unit 09/10/18 20:00 09/29/18 20:46 Nystatin PO 500,000 unit TID GLEN Administration Ondansetron HCl 4 mg 09/05/18 02:48 09/10/18 13:06 Zofran IV 4 mg Q8H PRN Administration Nausea And Vomiting Sodium Chloride 10 ml 09/05/18 10:00 09/29/18 22:11 Sodium Chloride Flush Syringe 10 Ml IV 10 ml BID GLEN Administration Sodium Chloride 10 ml 09/05/18 02:48 Sodium Chloride Flush Syringe 10 Ml IV PRN PRN LINE FLUSH Tenofovir Disoproxil Fumarate 300 mg 09/20/18 14:00 09/29/18 09:54 Viread PO 300 mg QDAY GLEN Administration Nutrition/Malnutrition Assess - Dietary Evaluation Nutrition/Malnutrition Findings: Nutrition Notes Start: 09/06/18 15:57 Freq: Status: Active Protocol: Document 09/27/18 14:12 RM (Rec: 09/27/18 14:16 RM [id number]) Nutrition Notes Initial or Follow up Reassessment Other Pertinent Diagnosis HIV/AIDS, noncompliance, oral candidiasis Current Diet Regular + Ensure Enlive TID Labs/Tests Reviewed Pertinent Medications Reviewed Height 5 ft 3 in Weight 48.1 kg [place] Body Weight (kg) 56.36 BMI 18.8 Subjective/Other Information Pt stated that he eats bites of his meals but drinks the Ensure Enlive. Noted empty Ensure Enlive bottle at bedside. Pt requested Ensure Enlive at time of visit and screen writer brought it to him. Percent of energy/protein needs met: 68%/100% Burn Absent Trauma Absent #1 Nutrition Diagnosis Malnutrition Diagnosis Progress(for reassessment Continues documentation) Is patient on ventilator? No Is Patient Ambulatory and/or Out of Bed No REE-(Calhoun-St. Jeor-confined to bed) [phone] Calculation Used for Recommendations Calhoun-St Jeor Additional Notes Pro needs 1.2-1.5g/k-69 g /day Fluid needs 1ml/kcal Nutrition Intervention Change Diet Order: Continue current Add Supplement/Snack (indicate name/kcal Ensure Enlive TID /protein ) Provides kCal: 1,050 Provides Protein (gm) 60 Goal #1 Meet at least 75% of calorie and protein needs Anticipated Discharge Needs: Regular diet Follow-Up By: 09/30/18 Additional Comments Follow for PO and ONS intakes
[2018-09-30] MEDS: EMTRIVA PO SCH (12:12)
[2018-09-30] MEDS: MEPRON PO SCH ×2 (12:12→21:52)
[2018-09-30] MEDS: VIREAD PO SCH (12:13)
[2018-09-30] MEDS: MEGACE PO SCH (12:14)
[2018-09-30] MEDS: TIVICAY PO SCH (12:14)
[2018-09-30] MEDS: SODIUM CHLORIDE FLUSH SYRINGE 10 ML IV SCH ×2 (12:14→21:52)
[2018-09-30] MEDS: TYLENOL PO PRN (21:52)
[2018-10-01 01:04] LABS: Hemoglobin 8.9 gm/dl (11.8-15.2); Mean Corpuscular HGB Conc 33 % (32-34); Mean Corpuscular Volume 92 fl (84-94); Platelet Count 184 K/mm3 (140-440); Red Blood Count 2.93 M/mm3 (3.65-5.03); Red Cell Distribution Width 20.3 % (13.2-15.2)
[2018-10-01 03:44] LABS: Basophils % (Manual) 0 % (0.0-1.8); Eosinophils % (Manual) 0 % (0.0-4.3); Total Cells Counted 100
[2018-10-01 03:45] LABS: Ovalocytes 2+
[2018-10-01 03:46] LABS: Large Platelets 1+; Platelet Estimate Consistent w Auto; Tear Drop Cells 1+
[2018-10-01 07:51] LABS: Hematocrit 27.8 % (35.5-45.6); Mean Corpuscular HGB Conc 32 % (32-34); Mean Corpuscular Volume 92 fl (84-94); Platelet Count 183 K/mm3 (140-440); Red Blood Count 3.02 M/mm3 (3.65-5.03)
[2018-10-01 07:56] LABS: Red Cell Distribution Width 20.6 % (13.2-15.2)
[2018-10-01 08:15] LABS: BUN/Creatinine Ratio 28; Blood Urea Nitrogen 31 mg/dL (9-20); Calcium 9.3 mg/dL (8.4-10.2); Hemolysis Index 3
--- NOTE | 2018-10-01 08:15 | Hem/Onc Progress Note ---
Assessment and Plan 1. Anemia, leukopenia, thrombocytopenia. The question arises if this is HIV related, medication related, or infection related. deficiency Ix. bone marrow aspiration biopsy including culture. 2. smear evaluation. 3. Abnormal liver function test. 4. Iron is low, but ferritin is high, may be inflammatory etiology. 5. Human immunodeficiency virus. 6. The ID team following. 7. Micafungin. I had spoken with the pharmacy, based on the timing of the episodes. The patient was on IV Bactrim and then oral Bactrim, micafungin was used for a few days and stopped and restarted. 8. History of Carolann. 9. History of being treated for pneumonia. 10. Malnutrition. I will follow the patient during inpatient stay. eval bone marrow biopsy. 10/01 - wbc - plt better - than before path smear - schistocytes - but plt better [id number] ordered BMBx not done as pt had low BP - as plt now better - willcancel the bmbx - d/w Dr greenberg ID cause of low plt unclear as plt improved before oral bactrim could be stopped micafungin vs oral bactrim vs other causes - Patient Problems (1) Pancytopenia Current Visit: Yes Status: Acute Subjective Date of service: 10/01/18 Principal diagnosis: hiv - cytopenia Interval history: pt did not have bmbx Objective - Constitutional Vitals: Last Vital Signs Temp 97.6 F 10/01/18 06:12 Pulse 66 10/01/18 06:12 Resp 15 10/01/18 06:12 BP 83/52 10/01/18 06:12 Pulse Ox 87 10/01/18 06:12 Pain Intensity (0-10): denies any pain General appearance: no acute distress Performance status: 4-completely disabled - EENT Eyes: EOM intact ENT: hearing intact Lymph node exam: negative cervical - Neck Neck: normal ROM - Respiratory Respiratory effort: Positive: normal Respiratory: bilateral: CTA - Cardiovascular Heart Sounds: Present: S1 & S2 Extremities: No edema - Gastrointestinal General gastrointestinal: Present: soft, non-tender Rectal Exam: deferred - Genitourinary Male genitourinary: Present: deferred - Integumentary Integumentary: warm - Musculoskeletal Musculoskeletal: generalized weakness - Neurologic Neurologic: moves all extremities - Labs Lab Results: Laboratory Results - last 24 hr 09/28/18 10/01/18 10/01/18 06:03 00:10 07:30 WBC 2.1 L 1.4 L* RBC 2.93 L 3.02 L Hgb 8.9 L 9.0 L Hct 27.0 L 27.8 L MCV 92 92 MCH 30 30 MCHC 33 32 RDW 20.3 H 20.6 H Plt Count 184 183 [place] % (Auto) Insurance Risk Surveyor Add Manual Diff Complete Total Counted 100 Seg Neuts % (Manual) 64.0 Band Neutrophils % 0 Lymphocytes % (Manual) 21.0 Reactive Lymphs % (Man) 0 Monocytes % (Manual) 15.0 H Eosinophils % (Manual) 0 Basophils % (Manual) 0 Metamyelocytes % 0 Myelocytes % 0 Promyelocytes % 0 Blast Cells % 0 Nucleated RBC % 1.0 H Seg Neutrophils # Man 1.3 L Band Neutrophils # 0.0 Lymphocytes # (Manual) 0.4 L Abs React Lymphs (Man) 0.0 Monocytes # (Manual) 0.3 Eosinophils # (Manual) 0.0 Basophils # (Manual) 0.0 Metamyelocytes # 0.0 Myelocytes # 0.0 Promyelocytes # 0.0 Blast Cells # 0.0 WBC Morphology Not Reportable Hypersegmented Neuts Not Reportable Hyposegmented Neuts Not Reportable Hypogranular Neuts Not Reportable Smudge Cells Not Reportable Toxic Granulation Not Reportable Toxic Vacuolation Not Reportable Dohle Bodies Not Reportable Pelger-Huet Anomaly Not Reportable Giovanni Rods Not Reportable Platelet Estimate Consistent w auto Clumped Platelets Not Reportable Plt Clumps, EDTA Not Reportable Large Platelets 1+ Giant Platelets Not Reportable Platelet Satelliting Not Reportable Plt Morphology Comment Not Reportable RBC Morphology Not Reportable Dimorphic RBCs Not Reportable Polychromasia Not Reportable Hypochromasia Not Reportable Poikilocytosis Not Reportable Anisocytosis Not Reportable Microcytosis Not Reportable Macrocytosis Not Reportable Spherocytes Not Reportable Pappenheimer Bodies Not Reportable Sickle Cells Not Reportable Target Cells Not Reportable Tear Drop Cells 1+ Ovalocytes 2+ Helmet Cells Not Reportable [place] Bodies Not Reportable [place] Rings Not Reportable Cinthya Cells Not Reportable Bite Cells Not Reportable Crenated Cell Not Reportable Elliptocytes 2+ Acanthocytes (Spur) Not Reportable Rouleaux Not Reportable Hemoglobin C Crystals Not Reportable Schistocytes Not Reportable Malaria parasites Not Reportable Carlos A Bodies Not Reportable Hem Pathologist Commnt No Miscellaneous Test Flexitest 1 Medications & Allergies - Medications Allergies/Adverse Reactions: Allergies No Known Allergies Allergy (Verified 07/18/18 14:08) Home Medications: Home Medications Medication Instructions Recorded Confirmed Last Taken Type Azithromycin [Zithromax TAB] 1,200 mg PO QWEEK #4 tablet 06/18/18 09/14/18 Unknown Rx Pantoprazole [Protonix TAB] 40 mg PO DAILY #30 tablet 06/19/18 09/14/18 Unknown Rx Nystas/Diphen/Xyl Visc/Mylanta 15 ml PO TID 14 Days oral.liqd 07/18/18 09/14/18 Unknown Rx [Magic Mouthwash] Nystas/Diphen/Xyl Visc/Mylanta 15 ml PO TID 30 Days #1 udc 07/23/18 09/14/18 Unknown Rx [Magic Mouthwash] Sulfamethoxazole/Trimethoprim 1 each PO QDAY 30 Days #30 tablet 07/23/18 09/14/18 Unknown Rx [Bactrim DS TAB] Posaconazole [Noxafil] 300 mg PO BID 1 Days #6 tablet. 08/03/18 09/14/18 Unkn own Rx Posaconazole [Noxafil] 300 mg PO QDAY 13 Days #39 08/03/18 09/14/18 Unknown Rx tablet. Acyclovir [Zovirax Tab] 400 mg PO Q8H 30 Days #90 tab 08/04/18 09/14/18 Unknown Rx Azithromycin [Zithromax TAB] 1,200 mg PO QDAY 30 Days #8 tablet 08/04/18 09/14/18 Unknown Rx Loperamide [Imodium] 2 mg PO Q2H PRN #30 capsule 08/04/18 09/14/18 Unknown Rx Midodrine HCl 2.5 mg PO DAILY #30 tablet 08/04/18 09/14/18 Unknown Rx Active Medications: Generic Name Dose Route Start Last Admin Trade Name Freq PRN Reason Stop Dose Admin Acetaminophen 650 mg 09/05/18 02:48 09/30/18 21:52 Tylenol PO 650 mg Q4H PRN Administration Pain MILD(1-3)/Fever >100.5/VILLAREAL Atovaquone 750 mg 09/28/18 13:00 09/30/18 21:52 Mepron PO 750 mg BID GLEN Administration Emtricitabine 200 mg 09/20/18 14:00 09/30/18 12:12 Emtriva PO 200 mg QDAY GLEN Administration Famotidine 10 mg 09/22/18 22:00 09/30/18 21:52 Pepcid PO 10 mg BID GLEN Administration Sodium Chloride 1,000 mls @ 100 mls/hr 09/16/18 08:00 09/23/18 12:46 Nacl 0.9% 1000 Ml IV 100 mls/hr DIRECT GLEN Administration Micafungin Sodium 100 mg/ 100 mls @ 100 mls/hr 09/24/18 14:00 09/30/18 10:56 Sodium Chloride IV 100 mls/hr QDAY GLEN Administration Protocol Megestrol Acetate 400 mg 09/24/18 10:00 09/30/18 12:14 Megace PO 400 mg QDAY GLEN Administration Midodrine 10 mg 09/05/18 19:00 09/30/18 18:27 Proamatine PO 10 mg TID@0800,1200,1600 GLEN Administration Nystatin 500,000 unit 09/10/18 20:00 09/30/18 21:52 Nystatin PO 500,000 unit TID GLEN Administration Ondansetron HCl 4 mg 09/05/18 02:48 09/10/18 13:06 Zofran IV 4 mg Q8H PRN Administration Nausea And Vomiting Sodium Chloride 10 ml 09/05/18 10:00 09/30/18 21:52 Sodium Chloride Flush Syringe 10 Ml IV 10 ml BID GLEN Administration Sodium Chloride 10 ml 09/05/18 02:48 Sodium Chloride Flush Syringe 10 Ml IV PRN PRN LINE FLUSH Tenofovir Disoproxil Fumarate 300 mg 09/20/18 14:00 09/30/18 12:13 Viread PO 300 mg QDAY GLEN Administration
[2018-10-01] MEDS: PEPCID PO SCH ×2 (10:00→23:24)
[2018-10-01] MEDS: PROAMATINE PO SCH ×3 (10:01→17:47)
[2018-10-01] MEDS: MYCAMINE 100 MG in NACL 0.9% 100 ML IV SCH (10:01)
[2018-10-01] MEDS: NYSTATIN PO SCH ×3 (10:01→23:07)
[2018-10-01 10:50] LABS: Anisocytosis 1+; Basophils % (Manual) 0 % (0.0-1.8); Eosinophils % (Manual) 0 % (0.0-4.3); Hypochromasia 1+; Total Cells Counted 100
[2018-10-01 10:51] LABS: Large Platelets Few; Ovalocytes 2+; Platelet Estimate Consistent w Auto; Tear Drop Cells Few
[2018-10-01] MEDS ORDERED: NACL 0.9% 500 ML 500 ML IV ONE (11:23)
--- NOTE | 2018-10-01 11:25 | Progress Note ---
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 + chronic maxillary and ethmoid sinusitis. MRI images showing brain atrophy, no focal lesions to suggest toxoplasma, PML, ventriculitis, STAGE BUILDER lymphoma or other space occupying lesions. Crypto Ag is negative. TTE shows no valvular vegetation, EF 30-35 %. -Fungitell: negative, -CMV DNR - <200 --Chronic hypotension. Multifactorial Fluid boluses, supportive care --Pancytopenia; platelets slightly improved, hematology following, discussed with Dr. Radford No indication for bone marrow biopsy at this point --Sinus bradycardia. Resolved Cardiology with no further recommendations. Cardiology conservative management --Oral candidiasis. h/o resistant Carolann. improved. Continue Nystatin and micafungin per ID --Severe protein calorie malnutrition. related to HIV AIDS., Additional supplements and supportive care --HIV/AIDS. Last admission in June CD4 count 11. Viral load high. Prognosis is poor. Agreed to go to SNF. HIV therapy started 09/20/18 with Truvada + Tivicay. Continue Bactrim DS daily. --Transaminitis. Abdominal ultrasound unremarkable. CT abdomen showing possible enteritis and somewhat inhomogenous liver. may be due to ischemic hepatitis, HIV/AIDS hepatopathy, infectious etiology with viral hepatitis, vs drug toxicity- GI following. Stable to improving. Evaluating for disseminated MAC, fungal/mycolytic blood cultures in process. 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 TTE no valvular vegetation, EF 30-35% --Bilateral pneumonia. Chest CT shows Bilateral pneumonia with findings most prominent in the left lower lobe as described. Bronchiectatic changes in left lower lobe noted also. Scattered blebs in the left lung. Fungitell negative, so PCP quite less likely. bilateral ground glass opacities could be fluid given cardiomyopathy and low EF. --Disposition. Awaiting SNF placement. Cardiology and ID recommend Hospice, but patient refuses. Consults and recommendations noted and appreciated DC planning. Case management, processing SNF placement Plan of care is reviewed with the patient and his nurse History Interval history: Patient seen and examined medical records reviewed Clinically no change, leukopenia No new events by the nursing staff Vital signs noted Hospitalist Physical - Constitutional Vitals: Temp Pulse Resp BP Pulse Ox 97.6 F 66 15 83/52 87 10/01/18 06:12 10/01/18 06:12 10/01/18 06:12 10/01/18 06:12 10/01/18 06:12 General appearance: Present: no acute distress, cachectic, disheveled - EENT Eyes: Present: PERRL, EOM intact - Neck Neck: Present: supple, normal ROM - Respiratory Respiratory effort: normal Respiratory: bilateral: diminished, negative: rales, rhonchi, wheezing - Cardiovascular Rhythm: regular Heart Sounds: Present: S1 & S2 - Extremities Extremities: no ischemia, No edema - Abdominal General gastrointestinal: soft, non-tender, non-distended, normal bowel sounds - Integumentary Integumentary: Present: clear, warm - Psychiatric Psychiatric: appropriate mood/affect, cooperative - Neurologic Neurologic: CNII-XII intact, moves all extremities Results - Labs CBC & Chem 7: 10/01/18 07:30 10/01/18 07:30 Labs: Laboratory Last Values WBC 1.4 K/mm3 (4.5-11.0) L* 10/01/18 07:30 RBC 3.02 M/mm3 (3.65-5.03) L 10/01/18 07:30 Hgb 9.0 gm/dl (11.8-15.2) L 10/01/18 07:30 Hct 27.8 % (35.5-45.6) L 10/01/18 07:30 MCV 92 fl (84-94) 10/01/18 07:30 MCH 30 pg (28-32) 10/01/18 07:30 MCHC 32 % (32-34) 10/01/18 07:30 RDW 20.6 % (13.2-15.2) H 10/01/18 07:30 Plt Count 183 K/mm3 (140-440) 10/01/18 07:30 Lymph % (Auto) 6.1 % (13.4-35.0) L 09/08/18 06:39 Collier % (Auto) Lance Crewmember/Mlrs Sergeant 10/01/18 07:30 Eos % (Auto) 0.0 % (0.0-4.3) 09/08/18 06:39 Baso % (Auto) 0.2 % (0.0-1.8) 09/08/18 06:39 Lymph # 0.3 K/mm3 (1.2-5.4) L 09/08/18 06:39 Collier # 0.3 K/mm3 (0.0-0.8) 09/08/18 06:39 Eos # 0.0 K/mm3 (0.0-0.4) 09/08/18 06:39 Baso # 0.0 K/mm3 (0.0-0.1) 09/08/18 06:39 Add Manual Diff Complete 10/01/18 07:30 Total Counted 100 10/01/18 07:30 Seg Neutrophils % 87.3 % (40.0-70.0) H 09/08/18 06:39 Seg Neuts % (Manual) 47.0 % (40.0-70.0) 10/01/18 07:30 Band Neutrophils % 0 % 10/01/18 07:30 Lymphocytes % (Manual) 35.0 % (13.4-35.0) 10/01/18 07:30 Reactive Lymphs % (Man) 0 % 10/01/18 07:30 Monocytes % (Manual) 18.0 % (0.0-7.3) H 10/01/18 07:30 Eosinophils % (Manual) 0 % (0.0-4.3) 10/01/18 07:30 Basophils % (Manual) 0 % (0.0-1.8) 10/01/18 07:30 Metamyelocytes % 0 % 10/01/18 07:30 Myelocytes % 0 % 10/01/18 07:30 Promyelocytes % 0 % 10/01/18 07:30 Blast Cells % 0 % 10/01/18 07:30 Nucleated RBC % Not Reportable 10/01/18 07:30 Seg Neutrophils # 4.5 K/mm3 (1.8-7.7) 09/08/18 06:39 Seg Neutrophils # Man 0.7 K/mm3 (1.8-7.7) L 10/01/18 07:30 Band Neutrophils # 0.0 K/mm3 10/01/18 07:30 Lymphocytes # (Manual) 0.5 K/mm3 (1.2-5.4) L 10/01/18 07:30 Abs React Lymphs (Man) 0.0 K/mm3 10/01/18 07:30 Monocytes # (Manual) 0.3 K/mm3 (0.0-0.8) 10/01/18 07:30 Eosinophils # (Manual) 0.0 K/mm3 (0.0-0.4) 10/01/18 07:30 Basophils # (Manual) 0.0 K/mm3 (0.0-0.1) 10/01/18 07:30 Metamyelocytes # 0.0 K/mm3 10/01/18 07:30 Myelocytes # 0.0 K/mm3 10/01/18 07:30 Promyelocytes # 0.0 K/mm3 10/01/18 07:30 Blast Cells # 0.0 K/mm3 10/01/18 07:30 Pathologist Review 09/24/18 00:33 WBC Morphology Not Reportable 10/01/18 07:30 Hypersegmented Neuts Not Reportable 10/01/18 07:30 Hyposegmented Neuts Not Reportable 10/01/18 07:30 Hypogranular Neuts Not Reportable 10/01/18 07:30 Smudge Cells Not Reportable 10/01/18 07:30 Toxic Granulation Not Reportable 10/01/18 07:30 Toxic Vacuolation Not Reportable 10/01/18 07:30 Dohle Bodies Not Reportable 10/01/18 07:30 Pelger-Huet Anomaly Not Reportable 10/01/18 07:30 Giovanni Rods Not Reportable 10/01/18 07:30 Platelet Estimate Consistent w auto 10/01/18 07:30 Clumped Platelets Not Reportable 10/01/18 07:30 Plt Clumps, EDTA Not Reportable 10/01/18 07:30 Large Platelets Few 10/01/18 07:30 Giant Platelets Not Reportable 10/01/18 07:30 Platelet Satelliting Not Reportable 10/01/18 07:30 Plt Morphology Comment Not Reportable 10/01/18 07:30 RBC Morphology Not Reportable 10/01/18 07:30 Dimorphic RBCs Not Reportable 10/01/18 07:30 Polychromasia Not Reportable 10/01/18 07:30 Hypochromasia 1+ 10/01/18 07:30 Poikilocytosis Not Reportable 10/01/18 07:30 Anisocytosis 1+ 10/01/18 07:30 Microcytosis Not Reportable 10/01/18 07:30 Macrocytosis Not Reportable 10/01/18 07:30 Spherocytes Not Reportable 10/01/18 07:30 Pappenheimer Bodies Not Reportable 10/01/18 07:30 Sickle Cells Not Reportable 10/01/18 07:30 Target Cells Not Reportable 10/01/18 07:30 Tear Drop Cells Few 10/01/18 07:30 Ovalocytes 2+ 10/01/18 07:30 Helmet Cells Not Reportable 10/01/18 07:30 [place] Bodies Not Reportable 10/01/18 07:30 [place] Rings Not Reportable 10/01/18 07:30 Cinthya Cells Not Reportable 10/01/18 07:30 Bite Cells Not Reportable 10/01/18 07:30 Crenated Cell Not Reportable 10/01/18 07:30 Elliptocytes 2+ 10/01/18 07:30 Acanthocytes (Spur) Not Reportable 10/01/18 07:30 Rouleaux Not Reportable 10/01/18 07:30 Hemoglobin C Crystals Not Reportable 10/01/18 07:30 Schistocytes Not Reportable 10/01/18 07:30 Malaria parasites Not Reportable 10/01/18 07:30 Carlos A Bodies Not Reportable 10/01/18 07:30 Hem Pathologist Commnt No 10/01/18 07:30 PT 12.8 Sec. (12.2-14.9) 09/27/18 10:21 INR 0.91 (0.87-1.13) 09/27/18 10:21 APTT 30.4 Sec. (24.2-36.6) 09/27/18 10:21 Heparin Anti-Xa, Unfract Negative (Negative) 09/24/18 10:14 Sodium 143 mmol/L (137-145) 10/01/18 07:30 Potassium 4.6 mmol/L (3.6-5.0) 10/01/18 07:30 Chloride 110.0 mmol/L (98-107) H 10/01/18 07:30 Carbon Dioxide 22 mmol/L (22-30) 10/01/18 07:30 Anion Gap 16 mmol/L 10/01/18 07:30 BUN 31 mg/dL (9-20) H 10/01/18 07:30 Creatinine 1.1 mg/dL (0.8-1.5) 10/01/18 07:30 Estimated GFR > 60 ml/min 10/01/18 07:30 BUN/Creatinine Ratio 28 % 10/01/18 07:30 Glucose 95 mg/dL (75-100) 10/01/18 07:30 POC Glucose 91 (70-105) 09/09/18 07:18 Lactic Acid 1.30 mmol/L (0.7-2.0) 09/05/18 03:50 Calcium 9.3 mg/dL (8.4-10.2) 10/01/18 07:30 Magnesium 2.30 mg/dL (1.7-2.3) 10/01/18 07:30 Iron 26 ug/dL (49-181) L 09/07/18 10:38 TIBC 212 mcg/dL (250-450) L 09/07/18 10:38 Ferritin 2762.0 ng/mL (13.0-400.0) H 09/07/18 10:38 Total Bilirubin 0.30 mg/dL (0.1-1.2) 09/29/18 07:04 Direct Bilirubin < 0.2 mg/dL (0-0.2) 09/28/18 06:03 Indirect Bilirubin 0.1 mg/dL 09/28/18 06:03 AST 304 units/L (5-40) H 09/29/18 07:04 ALT 130 units/L (7-56) H 09/29/18 07:04 Alkaline Phosphatase 306 units/L (35-129) H 09/29/18 07:04 Ammonia 51.0 umol/L (25-60) 09/12/18 12:28 Total Creatine Kinase 101 units/L (55-170) 09/04/18 21:00 Troponin T < 0.010 ng/mL (0.00-0.029) 09/10/18 12:14 C-Reactive Protein 0.30 mg/dL (0.00-1.30) 09/27/18 15:56 Total Protein 7.9 g/dL (6.3-8.2) 09/29/18 07:04 Albumin 3.5 g/dL (3.9-5) L 09/29/18 07:04 Albumin/Globulin Ratio 0.8 % 09/29/18 07:04 Vitamin B12 1010 pg/mL (211-911) H 09/26/18 07:54 Folate 7.69 ng/mL (7.3-26.0) 09/26/18 07:54 TSH 0.960 mlU/mL (0.270-4.200) 09/04/18 21:00 Urine Color Yellow (Yellow) 09/04/18 23:30 Urine Turbidity Clear (Clear) 09/04/18 23:30 Urine pH 6.0 (5.0-7.0) 09/04/18 23:30 Ur Specific [place] 1.012 (1.003-1.030) 09/04/18 23:30 Urine Protein <15 mg/dl mg/dL (Negative) 09/04/18 23:30 Urine Glucose (UA) Neg mg/dL (Negative) 09/04/18 23:30 Urine Ketones Neg mg/dL (Negative) 09/04/18 23:30 Urine Blood Neg (Negative) 09/04/18 23:30 Urine Nitrite Neg (Negative) 09/04/18 23:30 Urine Bilirubin Neg (Negative) 09/04/18 23:30 Urine Urobilinogen < 2.0 mg/dL (<2.0) 09/04/18 23:30 Ur Leukocyte Esterase Neg (Negative) 09/04/18 23:30 Urine WBC (Auto) 1.0 /HPF (0.0-6.0) 09/04/18 23:30 Urine RBC (Auto) 2.0 /HPF (0.0-6.0) 09/04/18 23:30 Urine Bacteria (Auto) 1+ /HPF (Negative) 09/04/18 23:30 Urine Mucus Few /HPF 09/04/18 23:30 Urine Opiates Screen Presumptive negative 09/04/18 23:30 Urine Methadone Screen Presumptive negative 09/04/18 23:30 Ur Barbiturates Screen Presumptive negative 09/04/18 23:30 Ur Phencyclidine Scrn Presumptive negative 09/04/18 23:30 Ur Amphetamines Screen Presumptive negative 09/04/18 23:30 U Benzodiazepines Scrn Presumptive negative 09/04/18 23:30 Urine Cocaine Screen Presumptive negative 09/04/18 23:30 U Marijuana (THC) Screen Presumptive negative 09/04/18 23:30 Drugs of Abuse Note Disclamer 09/04/18 23:30 Plasma/Serum Alcohol < 0.01 % (0-0.07) 09/04/18 21:00 JAMEEL Screen Negative (Negative) 09/05/18 16:19 Sm ([place]) Antibody <1.0 AI (<1.0) 09/05/18 16:19 Mitochondria M2 Ab <=20.0 U (<=20.0) 09/05/18 16:19 Heparin-induced Plt Ab Negative (Negative) 09/24/18 10:14 UF Heparin High Dose 0 % Release 09/24/18 10:14 KIERAN UFH Low Dose 0.1 0 % Release 09/24/18 10:14 KIERAN UFH Low Dose 0.5 0 % Release 09/24/18 10:14 CMV DNA PCR log helicopter dispatcher/mL See scanned results 09/08/18 16:50 Hepatitis A IgM Ab Non-reactive (NonReactive) 09/27/18 15:56 Hep Bs Antigen Non-reactive (Negative) 09/27/18 15:56 Hep B Core IgM Ab Non-reactive (NonReactive) 09/27/18 15:56 Hepatitis C Antibody Non-reactive (NonReactive) 09/27/18 15:56 Miscellaneous Test Flexitest 1 09/28/18 06:03 Active Medications - Current Medications Current Medications: Generic Name Dose Route Start Last Admin Trade Name Freq PRN Reason Stop Dose Admin Acetaminophen 650 mg 09/05/18 02:48 09/30/18 21:52 Tylenol PO 650 mg Q4H PRN Administration Pain MILD(1-3)/Fever >100.5/VILLAREAL Atovaquone 750 mg 09/28/18 13:00 09/30/18 21:52 Mepron PO 750 mg BID GLEN Administration Emtricitabine 200 mg 09/20/18 14:00 09/30/18 12:12 Emtriva PO 200 mg QDAY GLEN Administration Famotidine 10 mg 09/22/18 22:00 09/30/18 21:52 Pepcid PO 10 mg BID GLEN Administration Sodium Chloride 1,000 mls @ 100 mls/hr 09/16/18 08:00 09/23/18 12:46 Nacl 0.9% 1000 Ml IV 100 mls/hr DIRECT GLEN Administration Micafungin Sodium 100 mg/ 100 mls @ 100 mls/hr 09/24/18 14:00 10/01/18 10:01 Sodium Chloride IV 100 mls/hr QDAY GLEN Administration Protocol Sodium Chloride 500 mls @ 999 mls/hr 10/01/18 11:23 Nacl 0.9% 500 Ml IV 10/01/18 11:53 ONCE ONE Megestrol Acetate 400 mg 09/24/18 10:00 09/30/18 12:14 Megace PO 400 mg QDAY GLEN Administration Midodrine 10 mg 09/05/18 19:00 10/01/18 10:01 Proamatine PO 10 mg TID@0800,1200,1600 GLEN Administration Nystatin 500,000 unit 09/10/18 20:00 10/01/18 10:01 Nystatin PO 500,000 unit TID GLEN Administration Ondansetron HCl 4 mg 09/05/18 02:48 09/10/18 13:06 Zofran IV 4 mg Q8H PRN Administration Nausea And Vomiting Sodium Chloride 10 ml 09/05/18 10:00 09/30/18 21:52 Sodium Chloride Flush Syringe 10 Ml IV 10 ml BID GLEN Administration Sodium Chloride 10 ml 09/05/18 02:48 Sodium Chloride Flush Syringe 10 Ml IV PRN PRN LINE FLUSH Tenofovir Disoproxil Fumarate 300 mg 09/20/18 14:00 09/30/18 12:13 Viread PO 300 mg QDAY GLEN Administration Nutrition/Malnutrition Assess - Dietary Evaluation Nutrition/Malnutrition Findings: Nutrition Notes Start: 09/06/18 15:57 Freq: Status: Active Protocol: Document 09/30/18 14:55 RM (Rec: 09/30/18 14:59 RM [id number]) Nutrition Notes Initial or Follow up Reassessment Other Pertinent Diagnosis HIV/AIDS, noncompliance, oral candidiasis, Pneu, AMS Current Diet Regular + Ensure Enlive TID Labs/Tests Reviewed Pertinent Medications Reviewed Height 5 ft 3 in Weight 48.1 kg [place] Body Weight (kg) 56.36 BMI 18.8 Subjective/Other Information Pt eating breakfast at time of visit. Pt stated that he eats 50% of his meals. Also stated that he drinks the Ensure Enlive. Percent of energy/protein needs met: 100%/100% Burn Absent Trauma Absent #1 Nutrition Diagnosis Malnutrition Diagnosis Progress(for reassessment Continues documentation) Is patient on ventilator? No Is Patient Ambulatory and/or Out of Bed No REE-(Howell-St. Jeor-confined to bed) 1534.800 Calculation Used for Recommendations Howell-St Jeor Additional Notes Pro needs 1.2-1.5g/k-69 g /day Fluid needs 1ml/kcal Nutrition Intervention Change Diet Order: Continue current Add Supplement/Snack (indicate name/kcal Ensure Enlive TID /protein ) Provides kCal: 1,050 Provides Protein (gm) 60 Goal #1 Continue to meet at least 75% of calorie and protein needs Anticipated Discharge Needs: Regular diet Follow-Up By: 10/07/18 Additional Comments Follow for PO and ONS intakes
[2018-10-01] MEDS: TIVICAY PO SCH (12:46)
[2018-10-01] MEDS: MEPRON PO SCH ×2 (12:46→23:24)
[2018-10-01] MEDS: EMTRIVA PO SCH (12:47)
[2018-10-01] MEDS: MEGACE PO SCH (12:47)
[2018-10-01] MEDS: VIREAD PO SCH (12:47)
[2018-10-01] MEDS: SODIUM CHLORIDE FLUSH SYRINGE 10 ML IV SCH ×2 (12:48→23:41)
--- NOTE | 2018-10-01 14:24 | Progress Note ---
Assessment and Plan Culture 09/08/2018 Blood culture: no growth 09/08/2018 Serum Cr Ag: negative 09/09/2018 Blood culture: no growth thus far 09/09/2018 urine culture no growth Fungal blood culture: no growth to date A/P: 42 year old male, know to ID from previous admissions on 06/23/18-06/19/18 and 07/18/18- 08/04/18 for pneumonia, HIV/AIDS, severe oral candidiasis and diarrhea. CD4 count 11. Viral Load [id number]. HIV genotype 06/18/2018 with few resistance mutations. CMV negative. Patient remains noncompliant with his HAART therapy. N ow admitted with: 1. Altered Mental Status/Acute Encephalopathy: Improved. 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 CT head shows no acute intracranial abnormality. + chronic maxillary and ethmoid sinusitis. MRI images showing brain atrophy, no focal lesions to suggest toxoplasma, PML, ventriculitis, COMMUNITY ORGANIZER lymphoma or other space occupying lesions. Crypto Ag is negative. TTE shows no valvular vegetation, EF 30-35 %.Fungitell: negative. CMV DNR - <200 2. Oral Candidiasis: better on micafungin; White plaque on the oropharynx, tongue and inner and outer portion of the lips. h/o resistant Carolann. Continue Nystatin. 3. HIV/AIDS: Last admission in June CD4 count 11. Viral load high. Prognosis is poor.HIV therapy started 09/20/18 with Truvada + Tivicay. Currently compliant with medication regimen at hospital. 4. Severe Malnutrition: related to HIV AIDS 5. Transaminitis: worsening ? unclear etiology. Abdominal ultrasound unremarkable. CT abdomen showing possible enteritis and somewhat inhomogenous liver. may be due to ischemic hepatitis, HIV/AIDS hepatopathy, infectious etiology with viral hepatitis, vs drug toxicity- GI following. Stable to i mproving. Evaluating for disseminated MAC, fungal/mycolytic blood cultures in process. HAV, HBV, HCV - nonreactive x2 6. New Fevers : Resolved. 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 CAP vs PCP: Chest CT shows Bilateral pneumonia with findings most prominent in the left lower lobe as described. Bronchiectatic changes in left lower lobe noted also. Scattered blebs in the left lung. Fungitell negative, so PCP quite less likely. bilateral ground glass opacities could be fluid given cardiomyopathy and low EF. 8. Pancytopenia: better today, throbocytopenia resolved; likely from untreated HIV and AIDS. Antiretroviral treatment started 09/20/18. HHV-8 negative, repeat CMV PCR on 09/24 negative. Plan: -continue mepron 750 mg PO BID for PJP prophylaxis - add azithromycin 1200 mg po qweek -continue nystatin swish and swallow -stop Micafungin 100mg IV q day D8 -Continue Truvada + Tivicay started 09/20/18 -f/u AFB fungal blood culture -hold off bone marrow as count recovering -ok to d/c with ID clinic [place] [address] Carranza, please send him on Truvada (200mg/300mg) 1 tab q day + Tivicay 50 mg PO qday (1 month 1 refill), nystatin SS BID, mepron 750 mg PO BID (1 month 1 refill) and azithromyicn 1200 mg PO qweek. Will follow Sofia Landrum MD Infectious Diseases Box Closing Machine Operator [facility] ([facility]) M [phone] O [phone] Subjective Date of service: 10/01/18 Principal diagnosis: hiv - cytopenia Interval history: Patient feels better, no fever . Objective - Exam Narrative Exam: General appearance: Alert in NAD Eyes: anicteric sclerae, moist conjunctivae; no lid-lag; PERRLA HENT: Atraumatic; oropharynx clear Neck: Trachea midline; supple, no thyromegaly or lymphadenopathy Lungs: CTA, with normal respiratory effort and no intercostal retractions CV: RRR, no murmurs Abdomen: Soft, non-tender; no masses or hepatosplenomegaly Extremities: mild deyanira feet edema Skin: Normal temperature, turgor and texture; no rash, ulcers or subcutaneous nodules Psych: no agitated. Neuro: alert and oriented x 2 - Constitutional Vitals: Vital Signs Temp Pulse Resp BP Pulse Ox 97.7 F 90 18 93/68 96 10/01/18 11:52 10/01/18 11:52 10/01/18 11:52 10/01/18 11:52 10/01/18 11:52 Temperature -Last 24 Hours Temperature 97.7 F Temperature 97.6 F Temperature 98.2 F Temperature 98.0 F - Labs CBC & Chem 7: 10/01/18 07:30 10/01/18 07:30 Labs: Abnormal lab results 10/01/18 10/01/18 10/01/18 Range/Units 00:10 07:30 07:30 WBC 2.1 L 1.4 L* (4.5-11.0) K/mm3 RBC 2.93 L 3.02 L (3.65-5.03) M/mm3 Hgb 8.9 L 9.0 L (11.8-15.2) gm/dl Hct 27.0 L 27.8 L (35.5-45.6) % RDW 20.3 H 20.6 H (13.2-15.2) % Monocytes % (Manual) 15.0 H 18.0 H (0.0-7.3) % Nucleated RBC % 1.0 H (0.0-0.9) % Seg Neutrophils # Man 1.3 L 0.7 L (1.8-7.7) K/mm3 Lymphocytes # (Manual) 0.4 L 0.5 L (1.2-5.4) K/mm3 Chloride 110.0 H (98-107) mmol/L BUN 31 H (9-20) mg/dL
[2018-10-01] MEDS: NACL 0.9% 1000 ML 1,000 ML IV SCH (16:34)
[2018-10-02] MEDS: NACL 0.9% 1000 ML 1,000 ML IV SCH ×2 (01:33→22:51)
[2018-10-02 06:33] LABS: Hematocrit 26.6 % (35.5-45.6); Hemoglobin 8.6 gm/dl (11.8-15.2); Mean Corpuscular HGB Conc 32 % (32-34); Mean Corpuscular Volume 93 fl (84-94); Platelet Count 173 K/mm3 (140-440); Red Blood Count 2.85 M/mm3 (3.65-5.03)
[2018-10-02 06:35] LABS: Red Cell Distribution Width 20.3 % (13.2-15.2)
[2018-10-02 06:56] LABS: Alanine Aminotransferase 105 units/L (7-56); Albumin 3.2 g/dL (3.9-5); BUN/Creatinine Ratio 25; Blood Urea Nitrogen 20 mg/dL (9-20); Calcium 8.8 mg/dL (8.4-10.2); Hemolysis Index 9
[2018-10-02 07:25] LABS: Band Neutrophils # (Manual) 0.1 K/mm3; Basophils % (Manual) 0 % (0.0-1.8); Total Cells Counted 100
[2018-10-02 07:26] LABS: Anisocytosis 1+
[2018-10-02 07:27] LABS: Platelet Estimate Consistent w Auto
[2018-10-02] MEDS: NYSTATIN PO SCH ×3 (08:00→22:59)
--- NOTE | 2018-10-02 08:11 | Hem/Onc Progress Note ---
Assessment and Plan 1. Anemia, leukopenia, thrombocytopenia. The question arises if this is HIV related, medication related, or infection related. deficiency Ix. bone marrow aspiration biopsy including culture. 2. smear evaluation. 3. Abnormal liver function test. 4. Iron is low, but ferritin is high, may be inflammatory etiology. 5. Human immunodeficiency virus. 6. The ID team following. 7. Micafungin. I had spoken with the pharmacy, based on the timing of the episodes. The patient was on IV Bactrim and then oral Bactrim, micafungin was used for a few days and stopped and restarted. 8. History of Carolann. 9. History of being treated for pneumonia. 10. Malnutrition. I will follow the patient during inpatient stay. eval bone marrow biopsy. 10/02 - plt better - than before path smear - schistocytes - but plt better [id number] ordered as plt now better - will cancel the bmbx - d/w Dr greenberg ID cause of low plt unclear as plt improved before oral bactrim could be stopped micafungin vs oral bactrim vs other causes low wbc - low ANC - in isolation for TB - Patient Problems (1) Pancytopenia Current Visit: Yes Status: Acute Subjective Date of service: 10/02/18 Principal diagnosis: low wbc and plt Interval history: in [place] for TB Objective - Constitutional Vitals: Last Vital Signs Temp 97.8 F 10/02/18 05:54 Pulse 62 10/02/18 05:54 Resp 15 10/02/18 05:54 BP 83/51 10/02/18 05:54 Pulse Ox 76 L 10/02/18 05:54 Pain Intensity (0-10): denies any pain General appearance: no acute distress Performance status: 3-limited selfcare - EENT Eyes: EOM intact ENT: clear oral mucosa Lymph node exam: negative cervical - Neck Neck: normal ROM - Respiratory Respiratory effort: Positive: normal Respiratory: bilateral: diminished - Cardiovascular Heart Sounds: Present: S1 & S2 Extremities: No edema - Gastrointestinal General gastrointestinal: Present: soft Rectal Exam: deferred - Genitourinary Male genitourinary: Present: deferred - Integumentary Integumentary: warm - Musculoskeletal Musculoskeletal: generalized weakness - Labs Lab Results: Laboratory Results - last 24 hr 09/24/18 09/24/18 10/01/18 10:14 10:24 07:30 WBC RBC Hgb Hct MCV MCH MCHC RDW Plt Count [place] % (Auto) Add Manual Diff Total Counted Seg Neuts % (Manual) Band Neutrophils % Lymphocytes % (Manual) Reactive Lymphs % (Man) Monocytes % (Manual) Eosinophils % (Manual) Basophils % (Manual) Metamyelocytes % Myelocytes % Promyelocytes % Blast Cells % Nucleated RBC % Seg Neutrophils # Man Band Neutrophils # Lymphocytes # (Manual) Abs React Lymphs (Man) Monocytes # (Manual) Eosinophils # (Manual) Basophils # (Manual) Metamyelocytes # Myelocytes # Promyelocytes # Blast Cells # WBC Morphology Hypersegmented Neuts Hyposegmented Neuts Hypogranular Neuts Smudge Cells Toxic Granulation Toxic Vacuolation Dohle Bodies Pelger-Huet Anomaly Giovanni Rods Platelet Estimate Clumped Platelets Plt Clumps, EDTA Large Platelets Giant Platelets Platelet Satelliting Plt Morphology Comment RBC Morphology Dimorphic RBCs Polychromasia Hypochromasia Poikilocytosis Anisocytosis Microcytosis Macrocytosis Spherocytes Pappenheimer Bodies Sickle Cells Target Cells Tear Drop Cells Ovalocytes Helmet Cells [place] Bodies Raven Rings Cinthya Cells Bite Cells Crenated Cell Elliptocytes Acanthocytes (Spur) Rouleaux Hemoglobin C Crystals Schistocytes Malaria parasites Carlos A Bodies Hem Pathologist Commnt Sodium 143 Potassium 4.6 Chloride 110.0 H Carbon Dioxide 22 Anion Gap 16 BUN 31 H Creatinine 1.1 Estimated GFR > 60 BUN/Creatinine Ratio 28 Glucose 95 Calcium 9.3 Magnesium 2.30 Total Bilirubin AST ALT Alkaline Phosphatase Total Protein Albumin Albumin/Globulin Ratio Serotonin Release Assay See scanned results CMV DNA PCR log coppersmith helper/mL See scanned results 10/01/18 10/02/18 10/02/18 07:30 06:00 06:00 WBC 1.3 L* RBC 2.85 L Hgb 8.6 L Hct 26.6 L MCV 93 MCH 30 MCHC 32 RDW 20.3 H Plt Count 173 [place] % (Auto) Account Administrator Add Manual Diff Complete Complete Total Counted 100 100 Seg Neuts % (Manual) 47.0 61.0 Band Neutrophils % 0 5.0 Lymphocytes % (Manual) 35.0 23.0 Reactive Lymphs % (Man) 0 0 Monocytes % (Manual) 18.0 H 11.0 H Eosinophils % (Manual) 0 Basophils % (Manual) 0 0 Metamyelocytes % 0 0 Myelocytes % 0 0 Promyelocytes % 0 0 Blast Cells % 0 0 Nucleated RBC % Not Reportable Not Reportable Seg Neutrophils # Man 0.7 L 0.8 L Band Neutrophils # 0.0 0.1 Lymphocytes # (Manual) 0.5 L 0.3 L Abs React Lymphs (Man) 0.0 0.0 Monocytes # (Manual) 0.3 0.1 Eosinophils # (Manual) 0.0 0.0 Basophils # (Manual) 0.0 0.0 Metamyelocytes # 0.0 0.0 Myelocytes # 0.0 0.0 Promyelocytes # 0.0 0.0 Blast Cells # 0.0 0.0 WBC Morphology Not Reportable Not Reportable Hypersegmented Neuts Not Reportable Not Reportable Hyposegmented Neuts Not Reportable Not Reportable Hypogranular Neuts Not Reportable Not Reportable Smudge Cells Not Reportable Not Reportable Toxic Granulation Not Reportable Not Reportable Toxic Vacuolation Not Reportable Not Reportable Dohle Bodies Not Reportable Not Reportable Pelger-Huet Anomaly Not Reportable Not Reportable Giovanni Rods Not Reportable Not Reportable Platelet Estimate Consistent w auto Consistent w auto Clumped Platelets Not Reportable Not Reportable Plt Clumps, EDTA Not Reportable Not Reportable Large Platelets Few Not Reportable Giant Platelets Not Reportable Not Reportable Platelet Satelliting Not Reportable Not Reportable Plt Morphology Comment Not Reportable Not Reportable RBC Morphology Not Reportable Not Reportable Dimorphic RBCs Not Reportable Not Reportable Polychromasia Not Reportable Not Reportable Hypochromasia 1+ Not Reportable Poikilocytosis Not Reportable Not Reportable Anisocytosis 1+ 1+ Microcytosis Not Reportable Not Reportable Macrocytosis Not Reportable Not Reportable Spherocytes Not Reportable Not Reportable Pappenheimer Bodies Not Reportable Not Reportable Sickle Cells Not Reportable Not Reportable Target Cells Not Reportable Not Reportable Tear Drop Cells Few Not Reportable Ovalocytes 2+ Not Reportable Helmet Cells Not Reportable Not Reportable [place]o Bodies Not Reportable Not Reportable Raven Rings Not Reportable Not Reportable Cinthya Cells Not Reportable Not Reportable Bite Cells Not Reportable Not Reportable Crenated Cell Not Reportable Not Reportable Elliptocytes 2+ 1+ Acanthocytes (Spur) Not Reportable Not Reportable Rouleaux Not Reportable Not Reportable Hemoglobin C Crystals Not Reportable Not Reportable Schistocytes Not Reportable Not Reportable Malaria parasites Not Reportable Not Reportable Carlos A Bodies Not Reportable Not Reportable Hem Pathologist Commnt No No Sodium 143 Potassium 4.3 Chloride 110.8 H Carbon Dioxide 22 Anion Gap 15 BUN 20 Creatinine 0.8 Estimated GFR > 60 BUN/Creatinine Ratio 25 Glucose 82 Calcium 8.8 Magnesium Total Bilirubin 0.20 AST 189 H ALT 105 H Alkaline Phosphatase 230 H Total Protein 7.1 Albumin 3.2 L Albumin/Globulin Ratio 0.8 Serotonin Release Assay CMV DNA PCR log coppersmith helper/mL Medications & Allergies - Medications Allergies/Adverse Reactions: Allergies No Known Allergies Allergy (Verified 07/18/18 14:08) Home Medications: Home Medications Medication Instructions Recorded Confirmed Last Taken Type Azithromycin [Zithromax TAB] 1,200 mg PO QWEEK #4 tablet 06/18/18 09/14/18 Unknown Rx Pantoprazole [Protonix TAB] 40 mg PO DAILY #30 tablet 06/19/18 09/14/18 Unknown Rx Nystas/Diphen/Xyl Visc/Mylanta 15 ml PO TID 14 Days oral.liqd 07/18/18 09/14/18 Unknown Rx [Magic Mouthwash] Nystas/Diphen/Xyl Visc/Mylanta 15 ml PO TID 30 Days #1 udc 07/23/18 09/14/18 Unknown Rx [Magic Mouthwash] Sulfamethoxazole/Trimethoprim 1 each PO QDAY 30 Days #30 tablet 07/23/18 09/14/18 Unknown Rx [Bactrim DS TAB] Posaconazole [Noxafil] 300 mg PO BID 1 Days #6 tablet. 08/03/18 09/14/18 Unknown Rx Posaconazole [Noxafil] 300 mg PO QDAY 13 Days #39 08/03/18 09/14/18 Unknown Rx tablet. Acyclovir [Zovirax Tab] 400 mg PO Q8H 30 Days #90 tab 08/04/18 09/14/18 Unknown Rx Azithromycin [Zithromax TAB] 1,200 mg PO QDAY 30 Days #8 tablet 08/04/18 09/14/18 Unknown Rx Loperamide [Imodium] 2 mg PO Q2H PRN #30 capsule 08/04/18 09/14/18 Unknown Rx Midodrine HCl 2.5 mg PO DAILY #30 tablet 08/04/18 09/14/18 Unknown Rx Active Medications: Generic Name Dose Route Start Last Admin Trade Name Rodríguez PRN Reason Stop Dose Admin Acetaminophen 650 mg 09/05/18 02:48 09/30/18 21:52 Tylenol PO 650 mg Q4H PRN Administration Pain MILD(1-3)/Fever >100.5/VILLAREAL Atovaquone 750 mg 09/28/18 13:00 10/01/18 23:24 Mepron PO Not Given BID GLEN Emtricitabine 200 mg 09/20/18 14:00 10/01/18 12:47 Emtriva PO 200 mg QDAY GLEN Administration Famotidine 10 mg 09/22/18 22:00 10/01/18 23:24 Pepcid PO 10 mg BID GLEN Administration Sodium Chloride 1,000 mls @ 100 mls/hr 09/16/18 08:00 10/02/18 01:33 Nacl 0.9% 1000 Ml IV 100 mls/hr DIRECT GLEN Administration Micafungin Sodium 100 mg/ 100 mls @ 100 mls/hr 09/24/18 14:00 10/01/18 10:01 Sodium Chloride IV 100 mls/hr QDAY GLEN Administration Protocol Megestrol Acetate 400 mg 09/24/18 10:00 10/01/18 12:47 Megace PO 400 mg QDAY GLEN Administration Midodrine 10 mg 09/05/18 19:00 10/01/18 17:47 Proamatine PO 10 mg TID@0800,1200,1600 GLEN Administration Nystatin 500,000 unit 09/10/18 20:00 10/01/18 23:07 Nystatin PO Not Given TID GLEN Ondansetron HCl 4 mg 09/05/18 02:48 09/10/18 13:06 Zofran IV 4 mg Q8H PRN Administration Nausea And Vomiting Sodium Chloride 10 ml 09/05/18 10:00 10/01/18 23:41 Sodium Chloride Flush Syringe 10 Ml IV Not Given BID GLEN Sodium Chloride 10 ml 09/05/18 02:48 Sodium Chloride Flush Syringe 10 Ml IV PRN PRN LINE FLUSH Tenofovir Disoproxil Fumarate 300 mg 09/20/18 14:00 10/01/18 12:47 Viread PO 300 mg QDAY GLEN Administration
--- NOTE | 2018-10-02 08:30 | Progress Note ---
Assessment and Plan Assessment and plan: --Pancytopenia; severe neutropenia ,platelets slightly improved, hematology following, discussed with Dr. Radford No indication for bone marrow biopsy at this point, due to underlying HIV AIDS -- HIV/ AIDS: Management per ID, Last admission in June CD4 count 11. Viral load high. Prognosis is poor. Agreed to go to SNF. HIV therapy started 09/20/18 with Truvada + Tivicay. Continue Bactrim DS daily. 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 + chronic maxillary and ethmoid sinusitis. MRI images showing brain atrophy, no focal lesions to suggest toxoplasma, PML, ventriculitis, CARDIAC CATH TECHNICIAN lymphoma or other space occupying lesions. Crypto Ag is negative. TTE shows no valvular vegetation, EF 30-35 %. -Fungitell: negative, -CMV DNR - <200 --Chronic hypertension: Multifactorial Fluid boluses, supportive care --Sinus bradycardia. Resolved ,Cardiology evaluated ,conservative management --Oral candidiasis: h/o resistant Carolann. improved. Continue Nystatin and micafungin per ID --Severe protein calorie malnutrition related to HIV AIDS., Nutritional supplements and supportive care --Transaminitis; Abdominal ultrasound unremarkable. CT abdomen showing possible enteritis and somewhat inhomogenous liver. may be due to ischemic hepatitis, HIV/AIDS hepatopathy, infectious etiology with viral hepatitis, vs drug toxicity- GI following. Stable to improving. Evaluating for disseminated MAC, fungal/mycolytic blood cultures in process. 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 Bronchiectatic changes in left lower lobe noted also. Scattered blebs in the left lung. Fungitell negative, so PCP quite less likely. bilateral ground glass opacities could be fluid given cardiomyopathy and low EF. --Disposition: awaiting SNF placement. Cardiology and ID recommend Hospice, but patient refuses. Consults and recommendations noted and appreciated DC planning. Case management, processing SNF placement Plan of care is reviewed with the patient and his nurse History Interval history: Patient seen and examined medical records reviewed Patient feels better no new complaints Vital signs noted Hospitalist Physical - Constitutional Vitals: Temp Pulse Resp BP Pulse Ox 97.8 F 62 15 83/51 76 L 04/27/19 05:54 10/02/18 05:54 10/02/18 05:54 10/02/18 05:54 10/02/18 05:54 General appearance: Present: no acute distress, cachectic, disheveled - EENT Eyes: Present: PERRL, EOM intact - Neck Neck: Present: supple, normal ROM - Respiratory Respiratory effort: normal Respiratory: bilateral: diminished, negative: rales, rhonchi, wheezing - Cardiovascular Rhythm: regular Heart Sounds: Present: S1 & S2 - Extremities Extremities: no ischemia, No edema - Abdominal General gastrointestinal: soft, non-tender, non-distended, normal bowel sounds - Integumentary Integumentary: Present: clear, warm - Psychiatric Psychiatric: appropriate mood/affect - Neurologic Neurologic: CNII-XII intact, moves all extremities Results - Labs CBC & Chem 7: 10/02/18 06:00 10/02/18 06:00 Labs: Laboratory Last Values WBC 1.3 K/mm3 (4.5-11.0) L* 10/02/18 06:00 RBC 2.85 M/mm3 (3.65-5.03) L 10/02/18 06:00 Hgb 8.6 gm/dl (11.8-15.2) L 10/02/18 06:00 Hct 26.6 % (35.5-45.6) L 10/02/18 06:00 MCV 93 fl (84-94) 10/02/18 06:00 MCH 30 pg (28-32) 10/02/18 06:00 MCHC 32 % (32-34) 10/02/18 06:00 RDW 20.3 % (13.2-15.2) H 10/02/18 06:00 Plt Count 173 K/mm3 (140-440) 10/02/18 06:00 Lymph % (Auto) 6.1 % (13.4-35.0) L 09/08/18 06:39 [place] % (Auto) Track [employer] Rep[employer] Supervisor 10/02/18 06:00 Eos % (Auto) 0.0 % (0.0-4.3) 09/08/18 06:39 Baso % (Auto) 0.2 % (0.0-1.8) 09/08/18 06:39 Lymph # 0.3 K/mm3 (1.2-5.4) L 09/08/18 06:39 [place] # 0.3 K/mm3 (0.0-0.8) 09/08/18 06:39 Eos # 0.0 K/mm3 (0.0-0.4) 09/08/18 06:39 Baso # 0.0 K/mm3 (0.0-0.1) 09/08/18 06:39 Add Manual Diff Complete 10/02/18 06:00 Total Counted 100 10/02/18 06:00 Seg Neutrophils % 87.3 % (40.0-70.0) H 09/08/18 06:39 Seg Neuts % (Manual) 61.0 % (40.0-70.0) 10/02/18 06:00 Band Neutrophils % 5.0 % 10/02/18 06:00 Lymphocytes % (Manual) 23.0 % (13.4-35.0) 10/02/18 06:00 Reactive Lymphs % (Man) 0 % 10/02/18 06:00 Monocytes % (Manual) 11.0 % (0.0-7.3) H 10/02/18 06:00 Eosinophils % (Manual) 0 % (0.0-4.3) 10/01/18 07:30 Basophils % (Manual) 0 % (0.0-1.8) 10/02/18 06:00 Metamyelocytes % 0 % 10/02/18 06:00 Myelocytes % 0 % 10/02/18 06:00 Promyelocytes % 0 % 10/02/18 06:00 Blast Cells % 0 % 10/02/18 06:00 Nucleated RBC % Not Reportable 10/02/18 06:00 Seg Neutrophils # 4.5 K/mm3 (1.8-7.7) 09/08/18 06:39 Seg Neutrophils # Man 0.8 K/mm3 (1.8-7.7) L 10/02/18 06:00 Band Neutrophils # 0.1 K/mm3 10/02/18 06:00 Lymphocytes # (Manual) 0.3 K/mm3 (1.2-5.4) L 10/02/18 06:00 Abs React Lymphs (Man) 0.0 K/mm3 10/02/18 06:00 Monocytes # (Manual) 0.1 K/mm3 (0.0-0.8) 10/02/18 06:00 Eosinophils # (Manual) 0.0 K/mm3 (0.0-0.4) 10/02/18 06:00 Basophils # (Manual) 0.0 K/mm3 (0.0-0.1) 10/02/18 06:00 Metamyelocytes # 0.0 K/mm3 10/02/18 06:00 Myelocytes # 0.0 K/mm3 10/02/18 06:00 Promyelocytes # 0.0 K/mm3 10/02/18 06:00 Blast Cells # 0.0 K/mm3 10/02/18 06:00 Pathologist Review 09/24/18 00:33 WBC Morphology Not Reportable 10/02/18 06:00 Hypersegmented Neuts Not Reportable 10/02/18 06:00 Hyposegmented Neuts Not Reportable 10/02/18 06:00 Hypogranular Neuts Not Reportable 10/02/18 06:00 Smudge Cells Not Reportable 10/02/18 06:00 Toxic Granulation Not Reportable 10/02/18 06:00 Toxic Vacuolation Not Reportable 10/02/18 06:00 Dohle Bodies Not Reportable 10/02/18 06:00 Pelger-Huet Anomaly Not Reportable 10/02/18 06:00 Giovanni Rods Not Reportable 10/02/18 06:00 Platelet Estimate Consistent w auto 10/02/18 06:00 Clumped Platelets Not Reportable 10/02/18 06:00 Plt Clumps, EDTA Not Reportable 10/02/18 06:00 Large Platelets Not Reportable 10/02/18 06:00 Giant Platelets Not Reportable 10/02/18 06:00 Platelet Satelliting Not Reportable 10/02/18 06:00 Plt Morphology Comment Not Reportable 10/02/18 06:00 RBC Morphology Not Reportable 10/02/18 06:00 Dimorphic RBCs Not Reportable 10/02/18 06:00 Polychromasia Not Reportable 10/02/18 06:00 Hypochromasia Not Reportable 10/02/18 06:00 Poikilocytosis Not Reportable 10/02/18 06:00 Anisocytosis 1+ 10/02/18 06:00 Microcytosis Not Reportable 10/02/18 06:00 Macrocytosis Not Reportable 10/02/18 06:00 Spherocytes Not Reportable 10/02/18 06:00 Pappenheimer Bodies Not Reportable 10/02/18 06:00 Sickle Cells Not Reportable 10/02/18 06:00 Target Cells Not Reportable 10/02/18 06:00 Tear Drop Cells Not Reportable 10/02/18 06:00 Ovalocytes Not Reportable 10/02/18 06:00 Helmet Cells Not Reportable 10/02/18 06:00 [place] Bodies Not Reportable 10/02/18 06:00 [place] Rings Not Reportable 10/02/18 06:00 [place] Cells Not Reportable 10/02/18 06:00 Bite Cells Not Reportable 10/02/18 06:00 Crenated Cell Not Reportable 10/02/18 06:00 Elliptocytes 1+ 10/02/18 06:00 Acanthocytes (Spur) Not Reportable 10/02/18 06:00 Rouleaux Not Reportable 10/02/18 06:00 Hemoglobin C Crystals Not Reportable 10/02/18 06:00 Schistocytes Not Reportable 10/02/18 06:00 Malaria parasites Not Reportable 10/02/18 06:00 Carlos A Bodies Not Reportable 10/02/18 06:00 Hem Pathologist Commnt No 10/02/18 06:00 PT 12.8 Sec. (12.2-14.9) 09/27/18 10:21 INR 0.91 (0.87-1.13) 09/27/18 10:21 APTT 30.4 Sec. (24.2-36.6) 09/27/18 10:21 Heparin Anti-Xa, Unfract Negative (Negative) 09/24/18 10:14 Sodium 143 mmol/L (137-145) 10/02/18 06:00 Potassium 4.3 mmol/L (3.6-5.0) 10/02/18 06:00 Chloride 110.8 mmol/L (98-107) H 10/02/18 06:00 Carbon Dioxide 22 mmol/L (22-30) 10/02/18 06:00 Anion Gap 15 mmol/L 10/02/18 06:00 BUN 20 mg/dL (9-20) 10/02/18 06:00 Creatinine 0.8 mg/dL (0.8-1.5) 10/02/18 06:00 Estimated GFR > 60 ml/min 10/02/18 06:00 BUN/Creatinine Ratio 25 % 10/02/18 06:00 Glucose 82 mg/dL (75-100) 10/02/18 06:00 POC Glucose 91 (70-105) 09/09/18 07:18 Lactic Acid 1.30 mmol/L (0.7-2.0) 09/05/18 03:50 Calcium 8.8 mg/dL (8.4-10.2) 10/02/18 06:00 Magnesium 2.30 mg/dL (1.7-2.3) 10/01/18 07:30 Iron 26 ug/dL (49-181) L 09/07/18 10:38 TIBC 212 mcg/dL (250-450) L 09/07/18 10:38 Ferritin 2762.0 ng/mL (13.0-400.0) H 09/07/18 10:38 Total Bilirubin 0.20 mg/dL (0.1-1.2) 10/02/18 06:00 Direct Bilirubin < 0.2 mg/dL (0-0.2) 09/28/18 06:03 Indirect Bilirubin 0.1 mg/dL 09/28/18 06:03 AST 189 units/L (5-40) H 10/02/18 06:00 ALT 105 units/L (7-56) H 10/02/18 06:00 Alkaline Phosphatase 230 units/L (35-129) H 10/02/18 06:00 Ammonia 51.0 umol/L (25-60) 09/12/18 12:28 Total Creatine Kinase 101 units/L (55-170) 09/04/18 21:00 Troponin T < 0.010 ng/mL (0.00-0.029) 09/10/18 12:14 C-Reactive Protein 0.30 mg/dL (0.00-1.30) 09/27/18 15:56 Total Protein 7.1 g/dL (6.3-8.2) 10/02/18 06:00 Albumin 3.2 g/dL (3.9-5) L 10/02/18 06:00 Albumin/Globulin Ratio 0.8 % 10/02/18 06:00 Serotonin Release Assay See scanned results 09/24/18 10:14 Vitamin B12 1010 pg/mL (211-911) H 09/26/18 07:54 Folate 7.69 ng/mL (7.3-26.0) 09/26/18 07:54 TSH 0.960 mlU/mL (0.270-4.200) 09/04/18 21:00 Urine Color Yellow (Yellow) 09/04/18 23:30 Urine Turbidity Clear (Clear) 09/04/18 23:30 Urine pH 6.0 (5.0-7.0) 09/04/18 23:30 Ur Specific [place] 1.012 (1.003-1.030) 09/04/18 23:30 Urine Protein <15 mg/dl mg/dL (Negative) 09/04/18 23:30 Urine Glucose (UA) Neg mg/dL (Negative) 09/04/18 23:30 Urine Ketones Neg mg/dL (Negative) 09/04/18 23:30 Urine Blood Neg (Negative) 09/04/18 23:30 Urine Nitrite Neg (Negative) 09/04/18 23:30 Urine Bilirubin Neg (Negative) 09/04/18 23:30 Urine Urobilinogen < 2.0 mg/dL (<2.0) 09/04/18 23:30 Ur Leukocyte Esterase Neg (Negative) 09/04/18 23:30 Urine WBC (Auto) 1.0 /HPF (0.0-6.0) 09/04/18 23:30 Urine RBC (Auto) 2.0 /HPF (0.0-6.0) 09/04/18 23:30 Urine Bacteria (Auto) 1+ /HPF (Negative) 09/04/18 23:30 Urine Mucus Few /HPF 09/04/18 23:30 Urine Opiates Screen Presumptive negative 09/04/18 23:30 Urine Methadone Screen Presumptive negative 09/04/18 23:30 Ur Barbiturates Screen Presumptive negative 09/04/18 23:30 Ur Phencyclidine Scrn Presumptive negative 09/04/18 23:30 Ur Amphetamines Screen Presumptive negative 09/04/18 23:30 U Benzodiazepines Scrn Presumptive negative 09/04/18 23:30 Urine Cocaine Screen Presumptive negative 03/30/19 23:30 U Marijuana (THC) Screen Presumptive negative 09/04/18 23:30 Drugs of Abuse Note Disclamer 09/04/18 23:30 Plasma/Serum Alcohol < 0.01 % (0-0.07) 09/04/18 21:00 JAMEEL Screen Negative (Negative) 09/05/18 16:19 Sm ([place]) Antibody <1.0 AI (<1.0) 09/05/18 16:19 Mitochondria M2 Ab <=20.0 U (<=20.0) 09/05/18 16:19 Heparin-induced Plt Ab Negative (Negative) 09/24/18 10:14 UF Heparin High Dose 0 % Release 09/24/18 10:14 KIERAN UFH Low Dose 0.1 0 % Release 09/24/18 10:14 KIERAN UFH Low Dose 0.5 0 % Release 09/24/18 10:14 CMV DNA PCR log copy supervisor/mL See scanned results 09/24/18 10:24 Hepatitis A IgM Ab Non-reactive (NonReactive) 09/27/18 15:56 Hep Bs Antigen Non-reactive (Negative) 09/27/18 15:56 Hep B Core IgM Ab Non-reactive (NonReactive) 09/27/18 15:56 Hepatitis C Antibody Non-reactive (NonReactive) 09/27/18 15:56 Miscellaneous Test Flexitest 1 09/28/18 06:03 Active Medications - Current Medications Current Medications: Generic Name Dose Route Start Last Admin Trade Name Freq PRN Reason Stop Dose Admin Acetaminophen 650 mg 09/05/18 02:48 09/30/18 21:52 Tylenol PO 650 mg Q4H PRN Administration Pain MILD(1-3)/Fever >100.5/VILLAREAL Atovaquone 750 mg 09/28/18 13:00 10/01/18 23:24 Mepron PO Not Given BID GLEN Emtricitabine 200 mg 09/20/18 14:00 10/01/18 12:47 Emtriva PO 200 mg QDAY GLEN Administration Famotidine 10 mg 09/22/18 22:00 10/01/18 23:24 Pepcid PO 10 mg BID GLEN Administration Sodium Chloride 1,000 mls @ 100 mls/hr 09/16/18 08:00 10/02/18 01:33 Nacl 0.9% 1000 Ml IV 100 mls/hr DIRECT GLEN Administration Micafungin Sodium 100 mg/ 100 mls @ 100 mls/hr 09/24/18 14:00 10/01/18 10:01 Sodium Chloride IV 100 mls/hr QDAY GLEN Administration Protocol Megestrol Acetate 400 mg 09/24/18 10:00 10/01/18 12:47 Megace PO 400 mg QDAY GLEN Administration Midodrine 10 mg 09/05/18 19:00 10/01/18 17:47 Proamatine PO 10 mg TID@0800,1200,1600 GLEN Administration Nystatin 500,000 unit 09/10/18 20:00 10/01/18 23:07 Nystatin PO Not Given TID GLEN Ondansetron HCl 4 mg 09/05/18 02:48 09/10/18 13:06 Zofran IV 4 mg Q8H PRN Administration Nausea And Vomiting Sodium Chloride 10 ml 09/05/18 10:00 10/01/18 23:41 Sodium Chloride Flush Syringe 10 Ml IV Not Given BID GLEN Sodium Chloride 10 ml 09/05/18 02:48 Sodium Chloride Flush Syringe 10 Ml IV PRN PRN LINE FLUSH Tenofovir Disoproxil Fumarate 300 mg 09/20/18 14:00 10/01/18 12:47 Viread PO 300 mg QDAY GLEN Administration Nutrition/Malnutrition Assess - Dietary Evaluation Nutrition/Malnutrition Findings: Nutrition Notes Start: 09/06/18 15:57 Freq: Status: Active Protocol: Document 09/30/18 14:55 RM (Rec: 09/30/18 14:59 RM [id number]) Nutrition Notes Initial or Follow up Reassessment Other Pertinent Diagnosis HIV/AIDS, noncompliance, oral candidiasis, Pneu, AMS Current Diet Regular + Ensure Enlive TID Labs/Tests Reviewed Pertinent Medications Reviewed Height 5 ft 3 in Weight 48.1 kg [place] Body Weight (kg) 56.36 BMI 18.8 Subjective/Other Information Pt eating breakfast at time of visit. Pt stated that he eats 50% of his meals. Also stated that he drinks the Ensure Enlive. Percent of energy/protein needs met: 100%/100% Burn Absent Trauma Absent #1 Nutrition Diagnosis Malnutrition Diagnosis Progress(for reassessment Continues documentation) Is patient on ventilator? No Is Patient Ambulatory and/or Out of Bed No REE-([facility]-confined to bed) [phone] Calculation Used for Recommendations Kirti Jasso Additional Notes Pro needs 1.2-1.5g/k-69 g /day Fluid needs 1ml/kcal Nutrition Intervention Change Diet Order: Continue current Add Supplement/Snack (indicate name/kcal Ensure Enlive TID /protein ) Provides kCal: 1,050 Provides Protein (gm) 60 Goal #1 Continue to meet at least 75% of calorie and protein needs Anticipated Discharge Needs: Regular diet Follow-Up By: 10/07/18 Additional Comments Follow for PO and ONS intakes
[2018-10-02] MEDS: SODIUM CHLORIDE FLUSH SYRINGE 10 ML IV SCH ×2 (10:00→22:51)
--- NOTE | 2018-10-02 12:41 | Progress Note ---
Assessment and Plan Severe sepsis on background of chronic hypotension AMS due to acute metabolic encephalopathy: HIV/AIDS Panycytopenia Severe protein calorie malnutrition Transaminitis - may be due to ischemic hepatitis, HIV/AIDs hepatopathy, infectious etiology with viral hepatitis, vs drug toxicity. Anemia of chronic disease Acute Renal Failure, resolved Oral Candidiasis Non-adherence to medical therapy Hyperammonemia Metabolic acidosis - continue megace to stimulate appetite - continue aspiration precautions - gentle volume resuscitation prn re: hypotension while continuing midodrine - complete anti-infective per ID service (on Micafungin) - continue nutritional support, discussed possibility of nutritional supplements - SCDs for VTE prophylaxis, patient declines pharmacologic prophylaxis - continue PT/OT/ increase ambulation as tolerated - Limit blood draws, in view of anemia - continue other care per attending ... re-evaluate in am & prn Subjective Date of service: 10/02/18 Principal diagnosis: severe sepsis, hypotension, acute encephaloapthy, HIV-AIDS Interval history: Patient is seen today for: severe sepsis, hypotension, acute encephaloapthy, HIV-AIDS Seen and examined at bedside; 24-hour events reviewed; nursing and respiratory care staff consulted; no adverse overnight events reported to me; resting in bed; poor appetite; remains very weak; denies acute chest or other pain; No N/V/F/C Objective Vital Signs - 12hr 10/02/18 05:54 Temperature 97.8 F Pulse Rate 62 Respiratory 15 Rate Blood Pressure 83/51 O2 Sat by Pulse 76 L Oximetry Constitutional: no acute distress, alert, other (Weak) Eyes: non-icteric ENT: oropharynx moist Neck: supple, no lymphadenopathy Effort: normal Ascultation: Bilateral: clear, diminished breath sounds, other (Prolonged expiratory phase.) Percussion: Bilateral: not dull Cardiovascular: regular rate and rhythm Gastrointestinal: normoactive bowel sounds, soft, non-tender, non-distended Integumentary: other (poor turgor) Extremities: no cyanosis, no edema, pulses normal, no ischemia or petechiae Neurologic: non-focal exam (grossly), pupils equal and round, CN II-XII normal, other (very weak) Psychiatric: other (flat affect) CBC and BMP: 10/03/18 05:58 10/02/18 06:00 ABG, PT/INR, D-dimer: PT/INR, D-dimer PT 12.8 Sec. (12.2-14.9) 09/27/18 10:21 INR 0.91 (0.87-1.13) 09/27/18 10:21 Abnormal lab findings: Abnormal Labs 09/04/18 09/04/18 09/04/18 21:00 21:00 22:32 WBC RBC 3.23 L Hgb 9.6 L Hct 28.9 L RDW 18.8 H Plt Count Lymph % (Auto) [place] % (Auto) 12.5 H Lymph # 0.7 L Seg Neutrophils % 72.4 H Seg Neuts % (Manual) Lymphocytes % (Manual) Monocytes % (Manual) Nucleated RBC % Seg Neutrophils # Man Lymphocytes # (Manual) PT Sodium Potassium Chloride 109.9 H Carbon Dioxide 21 L BUN 31 H Creatinine Glucose Lactic Acid 2.40 H* Calcium 8.2 L Iron TIBC Ferritin AST 200 H ALT 136 H Alkaline Phosphatase 138 H Ammonia Total Protein Albumin 3.5 L Vitamin B12 09/04/18 09/05/18 09/05/18 22:32 16:19 16:19 WBC RBC Hgb Hct RDW Plt Count Lymph % (Auto) [place] % (Auto) Lymph # Seg Neutrophils % Seg Neuts % (Manual) Lymphocytes % (Manual) Monocytes % (Manual) Nucleated RBC % Seg Neutrophils # Man Lymphocytes # (Manual) PT Sodium Potassium Chloride 112.4 H Carbon Dioxide 19 L BUN Creatinine Glucose Lactic Acid Calcium 8.1 L Iron TIBC 223 L Ferritin AST 241 H ALT 138 H Alkaline Phosphatase Ammonia 64.0 H Total Protein Albumin 3.1 L Vitamin B12 09/05/18 09/06/18 09/06/18 16:19 10:40 10:40 WBC 2.4 L RBC 2.67 L Hgb 7.7 L Hct 23.7 L RDW 18.7 H Plt Count 135 L Lymph % (Auto) 10.0 L [place] % (Auto) 8.4 H Lymph # 0.2 L Seg Neutrophils % 81.1 H Seg Neuts % (Manual) Lymphocytes % (Manual) Monocytes % (Manual) Nucleated RBC % Seg Neutrophils # Man Lymphocytes # (Manual) PT Sodium Potassium Chloride 112.1 H Carbon Dioxide 19 L BUN Creatinine 0.7 L Glucose Lactic Acid Calcium 7.8 L Iron TIBC Ferritin 2880.0 H AST 263 H ALT 143 H Alkaline Phosphatase Ammonia Total Protein 6.1 L Albumin 2.8 L Vitamin B12 09/07/18 09/07/18 09/08/18 10:38 10:38 06:39 WBC RBC 2.86 L Hgb 8.3 L Hct 25.2 L RDW 18.3 H Plt Count 123 L Lymph % (Auto) 6.1 L [place] % (Auto) Lymph # 0.3 L Seg Neutrophils % 87.3 H Seg Neuts % (Manual) Lymphocytes % (Manual) Monocytes % (Manual) Nucleated RBC % Seg Neutrophils # Man Lymphocytes # (Manual) PT Sodium Potassium Chloride Carbon Dioxide BUN Creatinine Glucose Lactic Acid Calcium Iron 26 L TIBC 212 L Ferritin 2762.0 H AST ALT Alkaline Phosphatase Ammonia Total Protein Albumin Vitamin B12 09/08/18 09/08/18 09/09/18 06:39 13:43 07:03 WBC RBC Hgb Hct RDW Plt Count Lymph % (Auto) [place] % (Auto) Lymph # Seg Neutrophils % Seg Neuts % (Manual) Lymphocytes % (Manual) Monocytes % (Manual) Nucleated RBC % Seg Neutrophils # Man Lymphocytes # (Manual) PT Sodium Potassium 3.2 L 3.5 L Chloride 111.9 H 108.6 H Carbon Dioxide 13 L 15 L BUN 6 L 4 L Creatinine Glucose 118 H Lactic Acid Calcium 7.5 L 7.5 L Iron TIBC Ferritin AST 117 H 130 H ALT 87 H 86 H Alkaline Phosphatase Ammonia Total Protein 5.6 L 6.0 L Albumin 2.6 L 2.6 L Vitamin B12 09/09/18 09/10/18 09/10/18 07:31 04:26 04:26 WBC 3.5 L 2.1 L RBC 2.82 L 3.10 L Hgb 8.2 L 9.0 L Hct 24.6 L 27.1 L RDW 18.8 H 18.6 H Plt Count 136 L 139 L Lymph % (Auto) [place] % (Auto) Lymph # Seg Neutrophils % Seg Neuts % (Manual) 77.0 H Lymphocytes % (Manual) 11.0 L Monocytes % (Manual) 11.0 H Nucleated RBC % Seg Neutrophils # Man 1.6 L Lymphocytes # (Manual) 0.2 L PT Sodium Potassium Chloride 112.7 H Carbon Dioxide 14 L BUN 5 L Creatinine Glucose 109 H Lactic Acid Calcium 7.7 L Iron TIBC Ferritin AST 110 H ALT 76 H Alkaline Phosphatase Ammonia Total Protein 6.0 L Albumin 2.8 L Vitamin B12 09/11/18 09/12/18 09/13/18 05:22 12:28 07:23 WBC 1.1 L* RBC 2.82 L Hgb 8.2 L Hct 25.5 L RDW 19.5 H Plt Count 103 L Lymph % (Auto) [place] % (Auto) Lymph # Seg Neutrophils % Seg Neuts % (Manual) Lymphocytes % (Manual) Monocytes % (Manual) 18.0 H Nucleated RBC % Seg Neutrophils # Man 0.6 L Lymphocytes # (Manual) 0.3 L PT 15.1 H Sodium 133 L Potassium 3.5 L Chloride 108.8 H Carbon Dioxide 14 L BUN 6 L Creatinine Glucose 123 H Lactic Acid Calcium 7.4 L Iron TIBC Ferritin AST 126 H ALT 77 H Alkaline Phosphatase Ammonia Total Protein 5.7 L Albumin 2.6 L Vitamin B12 09/15/18 09/15/18 09/17/18 00:51 04:31 10:52 WBC 1.2 L* 1.2 L* RBC 3.38 L 3.03 L Hgb 9.7 L 8.9 L Hct 29.5 L 27.2 L RDW 19.0 H 19.5 H Plt Count 95 L 59 L Lymph % (Auto) [place] % (Auto) Lymph # Seg Neutrophils % Seg Neuts % (Manual) Lymphocytes % (Manual) Monocytes % (Manual) 24.0 H 14.0 H Nucleated RBC % 2.0 H Seg Neutrophils # Man 0.6 L 0.8 L Lymphocytes # (Manual) 0.3 L 0.2 L PT Sodium Potassium Chloride 112.0 H Carbon Dioxide 13 L BUN Creatinine Glucose 65 L Lactic Acid Calcium Iron TIBC Ferritin AST ALT Alkaline Phosphatase Ammonia Total Protein Albumin Vitamin B12 09/21/18 09/24/18 09/26/18 15:26 00:33 07:54 WBC 1.6 L* 0.7 L* RBC 2.94 L 2.67 L Hgb 8.8 L 7.8 L Hct 26.3 L 23.8 L RDW 20.0 H 20.3 H Plt Count 26 L 28 L Lymph % (Auto) [place] % (Auto) Lymph # Seg Neutrophils % Seg Neuts % (Manual) Lymphocytes % (Manual) Monocytes % (Manual) 12.0 H 10.0 H Nucleated RBC % Seg Neutrophils # Man 1.0 L 0.4 L Lymphocytes # (Manual) 0.4 L 0.1 L PT Sodium Potassium Chloride Carbon Dioxide BUN Creatinine Glucose Lactic Acid Calcium Iron TIBC Ferritin AST ALT Alkaline Phosphatase Ammonia Total Protein Albumin Vitamin B12 1010 H 09/26/18 09/26/18 09/27/18 14:59 14:59 06:28 WBC 2.0 L 2.0 L RBC 2.85 L 2.88 L Hgb 8.3 L 8.4 L Hct 25.6 L 25.5 L RDW 20.2 H 19.4 H Plt Count 83 L D 84 L Lymph % (Auto) [place] % (Auto) Lymph # Seg Neutrophils % Seg Neuts % (Manual) 72.0 H Lymphocytes % (Manual) 11.0 L Monocytes % (Manual) 19.0 H 10.0 H Nucleated RBC % Seg Neutrophils # Man 1.3 L 1.4 L Lymphocytes # (Manual) 0.2 L 0.3 L PT Sodium Potassium Chloride 108.0 H Carbon Dioxide BUN Creatinine Glucose 102 H Lactic Acid Calcium Iron TIBC Ferritin AST 364 H ALT 128 H Alkaline Phosphatase 311 H Ammonia Total Protein Albumin 3.1 L Vitamin B12 09/27/18 09/28/18 09/28/18 06:28 06:03 06:03 WBC 2.1 L RBC 2.74 L Hgb 8.1 L Hct 24.6 L RDW 20.3 H Plt Count 117 L Lymph % (Auto) [place] % (Auto) Lymph # Seg Neutrophils % Seg Neuts % (Manual) 78.0 H Lymphocytes % (Manual) Monocytes % (Manual) 8.0 H Nucleated RBC % Seg Neutrophils # Man 1.6 L Lymphocytes # (Manual) 0.3 L PT Sodium Potassium Chloride 110.5 H 108.4 H Carbon Dioxide BUN 23 H 27 H Creatinine Glucose Lactic Acid Calcium Iron TIBC Ferritin AST ALT Alkaline Phosphatase Ammonia Total Protein Albumin Vitamin B12 09/28/18 09/29/18 09/29/18 06:03 07:04 07:04 WBC 1.5 L* RBC 2.90 L Hgb 8.6 L Hct 26.6 L RDW 20.4 H Plt Count 132 L Lymph % (Auto) [place] % (Auto) Lymph # Seg Neutrophils % Seg Neuts % (Manual) Lymphocytes % (Manual) Monocytes % (Manual) 16.0 H Nucleated RBC % 3.0 H Seg Neutrophils # Man 0.8 L Lymphocytes # (Manual) 0.4 L PT Sodium Potassium Chloride Carbon Dioxide BUN 26 H Creatinine Glucose Lactic Acid Calcium Iron TIBC Ferritin AST 380 H 304 H ALT 138 H 130 H Alkaline Phosphatase 317 H 306 H Ammonia Total Protein Albumin 3.4 L 3.5 L Vitamin B12 10/01/18 10/01/18 10/01/18 00:10 07:30 07:30 WBC 2.1 L 1.4 L* RBC 2.93 L 3.02 L Hgb 8.9 L 9.0 L Hct 27.0 L 27.8 L RDW 20.3 H 20.6 H Plt Count Lymph % (Auto) [place] % (Auto) Lymph # Seg Neutrophils % Seg Neuts % (Manual) Lymphocytes % (Manual) Monocytes % (Manual) 15.0 H 18.0 H Nucleated RBC % 1.0 H Seg Neutrophils # Man 1.3 L 0.7 L Lymphocytes # (Manual) 0.4 L 0.5 L PT Sodium Potassium Chloride 110.0 H Carbon Dioxide BUN 31 H Creatinine Glucose Lactic Acid Calcium Iron TIBC Ferritin AST ALT Alkaline Phosphatase Ammonia Total Protein Albumin Vitamin B12 10/02/18 10/02/18 06:00 06:00 WBC 1.3 L* RBC 2.85 L Hgb 8.6 L Hct 26.6 L RDW 20.3 H Plt Count Lymph % (Auto) [place] % (Auto) Lymph # Seg Neutrophils % Seg Neuts % (Manual) Lymphocytes % (Manual) Monocytes % (Manual) 11.0 H Nucleated RBC % Seg Neutrophils # Man 0.8 L Lymphocytes # (Manual) 0.3 L PT Sodium Potassium Chloride 110.8 H Carbon Dioxide BUN Creatinine Glucose Lactic Acid Calcium Iron TIBC Ferritin AST 189 H ALT 105 H Alkaline Phosphatase 230 H Ammonia Total Protein Albumin 3.2 L Vitamin B12 Chest x-ray: image reviewed Allied health notes reviewed: nursing
[2018-10-02] MEDS: PEPCID PO SCH ×2 (14:08→22:51)
[2018-10-02] MEDS: MYCAMINE 100 MG in NACL 0.9% 100 ML IV SCH (14:08)
[2018-10-02] MEDS: MEPRON PO SCH ×2 (16:14→22:51)
[2018-10-02] MEDS: MEGACE PO SCH (16:14)
[2018-10-02] MEDS: PROAMATINE PO SCH ×3 (16:14→16:16)
[2018-10-02] MEDS: TIVICAY PO SCH (16:15)
[2018-10-02] MEDS: VIREAD PO SCH (16:15)
[2018-10-02] MEDS: EMTRIVA PO SCH (16:15)
[2018-10-03 06:38] LABS: Hematocrit 26.5 % (35.5-45.6); Hemoglobin 8.5 gm/dl (11.8-15.2); Mean Corpuscular HGB Conc 32 % (32-34); Mean Corpuscular Volume 92 fl (84-94); Platelet Count 206 K/mm3 (140-440); Red Blood Count 2.87 M/mm3 (3.65-5.03)
[2018-10-03 06:47] LABS: Red Cell Distribution Width 21.3 % (13.2-15.2)
[2018-10-03] MEDS: NYSTATIN PO SCH ×3 (08:38→20:50)
[2018-10-03] MEDS: PROAMATINE PO SCH ×3 (08:38→16:48)
[2018-10-03] MEDS: TYLENOL PO PRN ×2 (08:38→14:25)
--- NOTE | 2018-10-03 08:41 | Progress Note ---
Assessment and Plan Assessment and plan: --Pancytopenia; severe neutropenia ,platelets slightly improved, hematology following, discussed with Dr. Radford No indication for bone marrow biopsy at this point, due to underlying HIV AIDS -- HIV/ AIDS: Management per ID, Last admission in June CD4 count 11. Viral load high. Prognosis is poor. Agreed to go to SNF. HIV therapy started 09/20/18 with Truvada + Tivicay. Continue Bactrim DS daily. 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 + chronic maxillary and ethmoid sinusitis. MRI images showing brain atrophy, no focal lesions to suggest toxoplasma, PML, ventriculitis, DOORSHAKER lymphoma or other space occupying lesions. Crypto Ag is negative. TTE shows no valvular vegetation, EF 30-35 %. -Fungitell: negative, -CMV DNR - <200 --Chronic hypertension: Multifactorial Fluid boluses, supportive care --Sinus bradycardia. Resolved ,Cardiology evaluated ,conservative management --Oral candidiasis: h/o resistant Carolann. improved. Continue Nystatin and micafungin per ID --Severe protein calorie malnutrition related to HIV AIDS., Nutritional supplements and supportive care --Transaminitis; Abdominal ultrasound unremarkable. CT abdomen showing possible enteritis and somewhat inhomogenous liver. may be due to ischemic hepatitis, HIV/AIDS hepatopathy, infectious etiology with viral hepatitis, vs drug toxicity- GI following. Stable to improving. Evaluating for disseminated MAC, fungal/mycolytic blood cultures in process. 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 Bronchiectatic changes in left lower lobe noted also. Scattered blebs in the left lung. Fungitell negative, so PCP quite less likely. bilateral ground glass opacities could be fluid given cardiomyopathy and low EF. --Disposition: awaiting SNF placement. Cardiology and ID recommend Hospice, but patient refuses. Consults and recommendations noted and appreciated DC planning. Case management, processing SNF placement Plan of care is reviewed with the patient and his nurse History Interval history: Patient seen and examined medical records reviewed Patient feels slightly better No new complaints Vital signs noted, mild hypotension systolic and 90s Hospitalist Physical - Constitutional Vitals: Temp Pulse Resp BP Pulse Ox 98.6 F 83 18 95/71 98 10/03/18 06:33 10/03/18 06:33 10/03/18 06:33 10/03/18 06:33 10/03/18 06:33 General appearance: Present: no acute distress, well-nourished - EENT Eyes: Present: PERRL, EOM intact - Neck Neck: Present: supple, normal ROM - Respiratory Respiratory effort: normal Respiratory: bilateral: diminished, rhonchi, negative: rales, wheezing - Cardiovascular Rhythm: regular Heart Sounds: Present: S1 & S2 - Extremities Extremities: no ischemia, No edema - Abdominal General gastrointestinal: soft, non-tender, non-distended, normal bowel sounds - Integumentary Integumentary: Present: clear, warm - Psychiatric Psychiatric: appropriate mood/affect, cooperative - Neurologic Neurologic: CNII-XII intact, moves all extremities Results - Labs CBC & Chem 7: 10/03/18 05:58 10/02/18 06:00 Labs: Laboratory Last Values WBC 1.7 K/mm3 (4.5-11.0) L* 10/03/18 05:58 RBC 2.87 M/mm3 (3.65-5.03) L 10/03/18 05:58 Hgb 8.5 gm/dl (11.8-15.2) L 10/03/18 05:58 Hct 26.5 % (35.5-45.6) L 10/03/18 05:58 MCV 92 fl (84-94) 10/03/18 05:58 MCH 30 pg (28-32) 10/03/18 05:58 MCHC 32 % (32-34) 10/03/18 05:58 RDW 21.3 % (13.2-15.2) H 10/03/18 05:58 Plt Count 206 K/mm3 (140-440) 10/03/18 05:58 Lymph % (Auto) 6.1 % (13.4-35.0) L 09/08/18 06:39 [place] % (Auto) Health Commissioner 10/03/18 05:58 Eos % (Auto) 0.0 % (0.0-4.3) 09/08/18 06:39 Baso % (Auto) 0.2 % (0.0-1.8) 09/08/18 06:39 Lymph # 0.3 K/mm3 (1.2-5.4) L 09/08/18 06:39 [place] # 0.3 K/mm3 (0.0-0.8) 09/08/18 06:39 Eos # 0.0 K/mm3 (0.0-0.4) 09/08/18 06:39 Baso # 0.0 K/mm3 (0.0-0.1) 09/08/18 06:39 Add Manual Diff Complete 10/02/18 06:00 Total Counted 100 10/02/18 06:00 Seg Neutrophils % 87.3 % (40.0-70.0) H 09/08/18 06:39 Seg Neuts % (Manual) 61.0 % (40.0-70.0) 10/02/18 06:00 Band Neutrophils % 5.0 % 10/02/18 06:00 Lymphocytes % (Manual) 23.0 % (13.4-35.0) 10/02/18 06:00 Reactive Lymphs % (Man) 0 % 10/02/18 06:00 Monocytes % (Manual) 11.0 % (0.0-7.3) H 10/02/18 06:00 Eosinophils % (Manual) 0 % (0.0-4.3) 10/01/18 07:30 Basophils % (Manual) 0 % (0.0-1.8) 10/02/18 06:00 Metamyelocytes % 0 % 10/02/18 06:00 Myelocytes % 0 % 10/02/18 06:00 Promyelocytes % 0 % 10/02/18 06:00 Blast Cells % 0 % 10/02/18 06:00 Nucleated RBC % Not Reportable 10/02/18 06:00 Seg Neutrophils # 4.5 K/mm3 (1.8-7.7) 09/08/18 06:39 Seg Neutrophils # Man 0.8 K/mm3 (1.8-7.7) L 10/02/18 06:00 Band Neutrophils # 0.1 K/mm3 10/02/18 06:00 Lymphocytes # (Manual) 0.3 K/mm3 (1.2-5.4) L 10/02/18 06:00 Abs React Lymphs (Man) 0.0 K/mm3 10/02/18 06:00 Monocytes # (Manual) 0.1 K/mm3 (0.0-0.8) 10/02/18 06:00 Eosinophils # (Manual) 0.0 K/mm3 (0.0-0.4) 10/02/18 06:00 Basophils # (Manual) 0.0 K/mm3 (0.0-0.1) 10/02/18 06:00 Metamyelocytes # 0.0 K/mm3 10/02/18 06:00 Myelocytes # 0.0 K/mm3 10/02/18 06:00 Promyelocytes # 0.0 K/mm3 10/02/18 06:00 Blast Cells # 0.0 K/mm3 10/02/18 06:00 Pathologist Review 09/24/18 00:33 WBC Morphology Not Reportable 10/02/18 06:00 Hypersegmented Neuts Not Reportable 10/02/18 06:00 Hyposegmented Neuts Not Reportable 10/02/18 06:00 Hypogranular Neuts Not Reportable 10/02/18 06:00 Smudge Cells Not Reportable 10/02/18 06:00 Toxic Granulation Not Reportable 10/02/18 06:00 Toxic Vacuolation Not Reportable 10/02/18 06:00 Dohle Bodies Not Reportable 10/02/18 06:00 Pelger-Huet Anomaly Not Reportable 10/02/18 06:00 Giovanni Rods Not Reportable 10/02/18 06:00 Platelet Estimate Consistent w auto 10/02/18 06:00 Clumped Platelets Not Reportable 10/02/18 06:00 Plt Clumps, EDTA Not Reportable 10/02/18 06:00 Large Platelets Not Reportable 10/02/18 06:00 Giant Platelets Not Reportable 10/02/18 06:00 Platelet Satelliting Not Reportable 10/02/18 06:00 Plt Morphology Comment Not Reportable 10/02/18 06:00 RBC Morphology Not Reportable 10/02/18 06:00 Dimorphic RBCs Not Reportable 10/02/18 06:00 Polychromasia Not Reportable 10/02/18 06:00 Hypochromasia Not Reportable 10/02/18 06:00 Poikilocytosis Not Reportable 10/02/18 06:00 Anisocytosis 1+ 10/02/18 06:00 Microcytosis Not Reportable 10/02/18 06:00 Macrocytosis Not Reportable 10/02/18 06:00 Spherocytes Not Reportable 10/02/18 06:00 Pappenheimer Bodies Not Reportable 10/02/18 06:00 Sickle Cells Not Reportable 10/02/18 06:00 Target Cells Not Reportable 10/02/18 06:00 Tear Drop Cells Not Reportable 10/02/18 06:00 Ovalocytes Not Reportable 10/02/18 06:00 Helmet Cells Not Reportable 10/02/18 06:00 [place] Bodies Not Reportable 10/02/18 06:00 [place] Rings Not Reportable 10/02/18 06:00 [place] Cells Not Reportable 10/02/18 06:00 Bite Cells Not Reportable 10/02/18 06:00 Crenated Cell Not Reportable 10/02/18 06:00 Elliptocytes 1+ 10/02/18 06:00 Acanthocytes (Spur) Not Reportable 10/02/18 06:00 Rouleaux Not Reportable 10/02/18 06:00 Hemoglobin C Crystals Not Reportable 10/02/18 06:00 Schistocytes Not Reportable 10/02/18 06:00 Malaria parasites Not Reportable 10/02/18 06:00 Carlos A Bodies Not Reportable 10/02/18 06:00 Hem Pathologist Commnt No 10/02/18 06:00 PT 12.8 Sec. (12.2-14.9) 09/27/18 10:21 INR 0.91 (0.87-1.13) 09/27/18 10:21 APTT 30.4 Sec. (24.2-36.6) 09/27/18 10:21 Heparin Anti-Xa, Unfract Negative (Negative) 09/24/18 10:14 Sodium 143 mmol/L (137-145) 10/02/18 06:00 Potassium 4.3 mmol/L (3.6-5.0) 10/02/18 06:00 Chloride 110.8 mmol/L (98-107) H 10/02/18 06:00 Carbon Dioxide 22 mmol/L (22-30) 10/02/18 06:00 Anion Gap 15 mmol/L 10/02/18 06:00 BUN 20 mg/dL (9-20) 10/02/18 06:00 Creatinine 0.8 mg/dL (0.8-1.5) 10/02/18 06:00 Estimated GFR > 60 ml/min 10/02/18 06:00 BUN/Creatinine Ratio 25 % 10/02/18 06:00 Glucose 82 mg/dL (75-100) 10/02/18 06:00 POC Glucose 91 (70-105) 09/09/18 07:18 Lactic Acid 1.30 mmol/L (0.7-2.0) 09/05/18 03:50 Calcium 8.8 mg/dL (8.4-10.2) 10/02/18 06:00 Magnesium 2.30 mg/dL (1.7-2.3) 10/01/18 07:30 Iron 26 ug/dL (49-181) L 09/07/18 10:38 TIBC 212 mcg/dL (250-450) L 09/07/18 10:38 Ferritin 2762.0 ng/mL (13.0-400.0) H 09/07/18 10:38 Total Bilirubin 0.20 mg/dL (0.1-1.2) 10/02/18 06:00 Direct Bilirubin < 0.2 mg/dL (0-0.2) 09/28/18 06:03 Indirect Bilirubin 0.1 mg/dL 09/28/18 06:03 AST 189 units/L (5-40) H 10/02/18 06:00 ALT 105 units/L (7-56) H 10/02/18 06:00 Alkaline Phosphatase 230 units/L (35-129) H 10/02/18 06:00 Ammonia 51.0 umol/L (25-60) 09/12/18 12:28 Total Creatine Kinase 101 units/L (55-170) 09/04/18 21:00 Troponin T < 0.010 ng/mL (0.00-0.029) 09/10/18 12:14 C-Reactive Protein 0.30 mg/dL (0.00-1.30) 09/27/18 15:56 Total Protein 7.1 g/dL (6.3-8.2) 10/02/18 06:00 Albumin 3.2 g/dL (3.9-5) L 10/02/18 06:00 Albumin/Globulin Ratio 0.8 % 10/02/18 06:00 Serotonin Release Assay See scanned results 09/24/18 10:14 Vitamin B12 1010 pg/mL (211-911) H 09/26/18 07:54 Folate 7.69 ng/mL (7.3-26.0) 09/26/18 07:54 TSH 0.960 mlU/mL (0.270-4.200) 09/04/18 21:00 Urine Color Yellow (Yellow) 09/04/18 23:30 Urine Turbidity Clear (Clear) 09/04/18 23:30 Urine pH 6.0 (5.0-7.0) 09/04/18 23:30 Ur Specific Combs 1.012 (1.003-1.030) 09/04/18 23:30 Urine Protein <15 mg/dl mg/dL (Negative) 09/04/18 23:30 Urine Glucose (UA) Neg mg/dL (Negative) 09/04/18 23:30 Urine Ketones Neg mg/dL (Negative) 09/04/18 23:30 Urine Blood Neg (Negative) 09/04/18 23:30 Urine Nitrite Neg (Negative) 09/04/18 23:30 Urine Bilirubin Neg (Negative) 09/04/18 23:30 Urine Urobilinogen < 2.0 mg/dL (<2.0) 09/04/18 23:30 Ur Leukocyte Esterase Neg (Negative) 09/04/18 23:30 Urine WBC (Auto) 1.0 /HPF (0.0-6.0) 09/04/18 23:30 Urine RBC (Auto) 2.0 /HPF (0.0-6.0) 09/04/18 23:30 Urine Bacteria (Auto) 1+ /HPF (Negative) 09/04/18 23:30 Urine Mucus Few /HPF 09/04/18 23:30 Urine Opiates Screen Presumptive negative 09/04/18 23:30 Urine Methadone Screen Presumptive negative 09/04/18 23:30 Ur Barbiturates Screen Presumptive negative 09/04/18 23:30 Ur Phencyclidine Scrn Presumptive negative 09/04/18 23:30 Ur Amphetamines Screen Presumptive negative 09/04/18 23:30 U Benzodiazepines Scrn Presumptive negative 09/04/18 23:30 Urine Cocaine Screen Presumptive negative 09/04/18 23:30 U Marijuana (THC) Screen Presumptive negative 09/04/18 23:30 Drugs of Abuse Note Disclamer 09/04/18 23:30 Plasma/Serum Alcohol < 0.01 % (0-0.07) 09/04/18 21:00 JAMEEL Screen Negative (Negative) 09/05/18 16:19 Sm ([place]) Antibody <1.0 AI (<1.0) 09/05/18 16:19 Mitochondria M2 Ab <=20.0 U (<=20.0) 09/05/18 16:19 Heparin-induced Plt Ab Negative (Negative) 09/24/18 10:14 UF Heparin High Dose 0 % Release 09/24/18 10:14 KIERAN UFH Low Dose 0.1 0 % Release 09/24/18 10:14 KIERAN UFH Low Dose 0.5 0 % Release 09/24/18 10:14 CMV DNA PCR log photocopying equipment mechanic/mL See scanned results 09/24/18 10:24 Hepatitis A IgM Ab Non-reactive (NonReactive) 09/27/18 15:56 Hep Bs Antigen Non-reactive (Negative) 09/27/18 15:56 Hep B Core IgM Ab Non-reactive (NonReactive) 09/27/18 15:56 Hepatitis C Antibody Non-reactive (NonReactive) 09/27/18 15:56 Miscellaneous Test Flexitest 1 09/28/18 06:03 Active Medications - Current Medications Current Medications: Generic Name Dose Route Start Last Admin Trade Name Freq PRN Reason Stop Dose Admin Acetaminophen 650 mg 09/05/18 02:48 10/03/18 08:38 Tylenol PO 650 mg Q4H PRN Administration Pain MILD(1-3)/Fever >100.5/VILLAREAL Atovaquone 750 mg 09/28/18 13:00 10/02/18 22:51 Mepron PO 750 mg BID GLEN Administration Emtricitabine 200 mg 09/20/18 14:00 10/02/18 16:15 Emtriva PO 200 mg QDAY GLEN Administration Famotidine 10 mg 09/22/18 22:00 10/02/18 22:51 Pepcid PO 10 mg BID GLEN Administration Sodium Chloride 1,000 mls @ 100 mls/hr 09/16/18 08:00 10/02/18 22:51 Nacl 0.9% 1000 Ml IV 100 mls/hr DIRECT GLEN Administration Micafungin Sodium 100 mg/ 100 mls @ 100 mls/hr 09/24/18 14:00 10/02/18 14:08 Sodium Chloride IV 100 mls/hr QDAY GLEN Administration Protocol Megestrol Acetate 400 mg 09/24/18 10:00 10/02/18 16:14 Megace PO 400 mg QDAY GLEN Administration Midodrine 10 mg 09/05/18 19:00 10/03/18 08:38 Proamatine PO 10 mg TID@0800,1200,1600 GLEN Administration Nystatin 500,000 unit 09/10/18 20:00 10/03/18 08:38 Nystatin PO 500,000 unit TID GLEN Administration Ondansetron HCl 4 mg 09/05/18 02:48 09/10/18 13:06 Zofran IV 4 mg Q8H PRN Administration Nausea And Vomiting Sodium Chloride 10 ml 09/05/18 10:00 10/02/18 22:51 Sodium Chloride Flush Syringe 10 Ml IV 10 ml BID GLEN Administration Sodium Chloride 10 ml 09/05/18 02:48 Sodium Chloride Flush Syringe 10 Ml IV PRN PRN LINE FLUSH Tenofovir Disoproxil Fumarate 300 mg 09/20/18 14:00 10/02/18 16:15 Viread PO 300 mg QDAY GLEN Administration Nutrition/Malnutrition Assess - Dietary Evaluation Nutrition/Malnutrition Findings: Nutrition Notes Start: 09/06/18 15:57 Freq: Status: Active Protocol: Document 09/30/18 14:55 RM (Rec: 09/30/18 14:59 RM [id number]) Nutrition Notes Initial or Follow up Reassessment Other Pertinent Diagnosis HIV/AIDS, noncompliance, oral candidiasis, Pneu, AMS Current Diet Regular + Ensure Enlive TID Labs/Tests Reviewed Pertinent Medications Reviewed Height 5 ft 3 in Weight 48.1 kg [place] Body Weight (kg) 56.36 BMI 18.8 Subjective/Other Information Pt eating breakfast at time of visit. Pt stated that he eats 50% of his meals. Also stated that he drinks the Ensure Enlive. Percent of energy/protein needs met: 100%/100% Burn Absent Trauma Absent #1 Nutrition Diagnosis Malnutrition Diagnosis Progress(for reassessment Continues documentation) Is patient on ventilator? No Is Patient Ambulatory and/or Out of Bed No REE-([place]-St. Jeor-confined to bed) [phone] Calculation Used for Recommendations [place]-St Jeor Additional Notes Pro needs 1.2-1.5g/k-69 g /day Fluid needs 1ml/kcal Nutrition Intervention Change Diet Order: Continue current Add Supplement/Snack (indicate name/kcal Ensure Enlive TID /protein ) Provides kCal: 1,050 Provides Protein (gm) 60 Goal #1 Continue to meet at least 75% of calorie and protein needs Anticipated Discharge Needs: Regular diet Follow-Up By: 10/07/18 Additional Comments Follow for PO and ONS intakes
[2018-10-03 10:00] LABS: Basophils % (Manual) 0 % (0.0-1.8); Eosinophils % (Manual) 0 % (0.0-4.3); Total Cells Counted 100
[2018-10-03 10:01] LABS: Platelet Estimate Consistent w Auto; Tear Drop Cells 2+
[2018-10-03] MEDS: PEPCID PO SCH ×2 (11:23→22:19)
[2018-10-03] MEDS: MYCAMINE 100 MG in NACL 0.9% 100 ML IV SCH (11:23)
[2018-10-03] MEDS: MEGACE PO SCH (11:27)
[2018-10-03] MEDS: EMTRIVA PO SCH (11:27)
[2018-10-03] MEDS: MEPRON PO SCH ×2 (11:27→22:19)
[2018-10-03] MEDS: TIVICAY PO SCH (11:27)
[2018-10-03] MEDS: VIREAD PO SCH (11:28)
[2018-10-03] MEDS: SODIUM CHLORIDE FLUSH SYRINGE 10 ML IV SCH ×2 (11:28→22:19)
--- NOTE | 2018-10-03 14:06 | Progress Note ---
Assessment and Plan Severe sepsis on background of chronic hypotension AMS due to acute metabolic encephalopathy: HIV/AIDS Panycytopenia Severe protein calorie malnutrition Transaminitis - may be due to ischemic hepatitis, HIV/AIDs hepatopathy, infectious etiology with viral hepatitis, vs drug toxicity. Anemia of chronic disease Acute Renal Failure, resolved Oral Candidiasis Non-adherence to medical therapy Hyperammonemia Metabolic acidosis - continue ART therapy for HIV status - continue megace to stimulate appetite - continue aspiration precautions - gentle volume resuscitation prn re: hypotension while continuing midodrine - complete anti-infective per ID service (on Micafungin) - continue nutritional support, discussed possibility of nutritional supplements - SCDs for VTE prophylaxis, patient declines pharmacologic prophylaxis - continue PT/OT/ increase ambulation as tolerated - Limit blood draws, in view of anemia - continue other care per attending ... re-evaluate in am & prn Subjective Date of service: 10/03/18 Principal diagnosis: severe sepsis, hypotension, acute encephaloapthy, HIV-AIDS Interval history: Patient is seen today for: severe sepsis, hypotension, acute encephaloapthy, HIV-AIDS Seen and examined at bedside; 24-hour events reviewed; nursing and respiratory care staff consulted; no adverse overnight events reported to me; resting in bed; Objective Vital Signs - 12hr 10/03/18 06:33 Temperature 98.6 F Pulse Rate 83 Respiratory 18 Rate Blood Pressure 95/71 O2 Sat by Pulse 98 Oximetry Constitutional: no acute distress, alert, other (Weak) Eyes: non-icteric ENT: oropharynx moist Neck: supple, no lymphadenopathy Effort: normal Ascultation: Bilateral: clear, diminished breath sounds, other (Prolonged expiratory phase.) Percussion: Bilateral: not dull Cardiovascular: regular rate and rhythm Gastrointestinal: normoactive bowel sounds, soft, non-tender, non-distended Integumentary: other (poor turgor) Extremities: no cyanosis, no edema, pulses normal, no ischemia or petechiae Neurologic: non-focal exam (grossly), pupils equal and round, CN II-XII normal, other (very weak) Psychiatric: other (flat affect) CBC and BMP: 10/03/18 05:58 10/02/18 06:00 ABG, PT/INR, D-dimer: PT/INR, D-dimer PT 12.8 Sec. (12.2-14.9) 09/27/18 10:21 INR 0.91 (0.87-1.13) 09/27/18 10:21 Abnormal lab findings: Abnormal Labs 09/04/18 09/04/18 09/04/18 21:00 21:00 22:32 WBC RBC 3.23 L Hgb 9.6 L Hct 28.9 L RDW 18.8 H Plt Count Lymph % (Auto) [place] % (Auto) 12.5 H Lymph # 0.7 L Seg Neutrophils % 72.4 H Seg Neuts % (Manual) Lymphocytes % (Manual) Monocytes % (Manual) Nucleated RBC % Seg Neutrophils # Man Lymphocytes # (Manual) PT Sodium Potassium Chloride 109.9 H Carbon Dioxide 21 L BUN 31 H Creatinine Glucose Lactic Acid 2.40 H* Calcium 8.2 L Iron TIBC Ferritin AST 200 H ALT 136 H Alkaline Phosphatase 138 H Ammonia Total Protein Albumin 3.5 L Vitamin B12 09/04/18 09/05/18 09/05/18 22:32 16:19 16:19 WBC RBC Hgb Hct RDW Plt Count Lymph % (Auto) [place] % (Auto) Lymph # Seg Neutrophils % Seg Neuts % (Manual) Lymphocytes % (Manual) Monocytes % (Manual) Nucleated RBC % Seg Neutrophils # Man Lymphocytes # (Manual) PT Sodium Potassium Chloride 112.4 H Carbon Dioxide 19 L BUN Creatinine Glucose Lactic Acid Calcium 8.1 L Iron TIBC 223 L Ferritin AST 241 H ALT 138 H Alkaline Phosphatase Ammonia 64.0 H Total Protein Albumin 3.1 L Vitamin B12 09/05/18 09/06/18 09/06/18 16:19 10:40 10:40 WBC 2.4 L RBC 2.67 L Hgb 7.7 L Hct 23.7 L RDW 18.7 H Plt Count 135 L Lymph % (Auto) 10.0 L [place] % (Auto) 8.4 H Lymph # 0.2 L Seg Neutrophils % 81.1 H Seg Neuts % (Manual) Lymphocytes % (Manual) Monocytes % (Manual) Nucleated RBC % Seg Neutrophils # Man Lymphocytes # (Manual) PT Sodium Potassium Chloride 112.1 H Carbon Dioxide 19 L BUN Creatinine 0.7 L Glucose Lactic Acid Calcium 7.8 L Iron TIBC Ferritin 2880.0 H AST 263 H ALT 143 H Alkaline Phosphatase Ammonia Total Protein 6.1 L Albumin 2.8 L Vitamin B12 09/07/18 09/07/18 09/08/18 10:38 10:38 06:39 WBC RBC 2.86 L Hgb 8.3 L Hct 25.2 L RDW 18.3 H Plt Count 123 L Lymph % (Auto) 6.1 L [place] % (Auto) Lymph # 0.3 L Seg Neutrophils % 87.3 H Seg Neuts % (Manual) Lymphocytes % (Manual) Monocytes % (Manual) Nucleated RBC % Seg Neutrophils # Man Lymphocytes # (Manual) PT Sodium Potassium Chloride Carbon Dioxide BUN Creatinine Glucose Lactic Acid Calcium Iron 26 L TIBC 212 L Ferritin 2762.0 H AST ALT Alkaline Phosphatase Ammonia Total Protein Albumin Vitamin B12 09/08/18 09/08/18 09/09/18 06:39 13:43 07:03 WBC RBC Hgb Hct RDW Plt Count Lymph % (Auto) [place] % (Auto) Lymph # Seg Neutrophils % Seg Neuts % (Manual) Lymphocytes % (Manual) Monocytes % (Manual) Nucleated RBC % Seg Neutrophils # Man Lymphocytes # (Manual) PT Sodium Potassium 3.2 L 3.5 L Chloride 111.9 H 108.6 H Carbon Dioxide 13 L 15 L BUN 6 L 4 L Creatinine Glucose 118 H Lactic Acid Calcium 7.5 L 7.5 L Iron TIBC Ferritin AST 117 H 130 H ALT 87 H 86 H Alkaline Phosphatase Ammonia Total Protein 5.6 L 6.0 L Albumin 2.6 L 2.6 L Vitamin B12 09/09/18 09/10/18 09/10/18 07:31 04:26 04:26 WBC 3.5 L 2.1 L RBC 2.82 L 3.10 L Hgb 8.2 L 9.0 L Hct 24.6 L 27.1 L RDW 18.8 H 18.6 H Plt Count 136 L 139 L Lymph % (Auto) [place] % (Auto) Lymph # Seg Neutrophils % Seg Neuts % (Manual) 77.0 H Lymphocytes % (Manual) 11.0 L Monocytes % (Manual) 11.0 H Nucleated RBC % Seg Neutrophils # Man 1.6 L Lymphocytes # (Manual) 0.2 L PT Sodium Potassium Chloride 112.7 H Carbon Dioxide 14 L BUN 5 L Creatinine Glucose 109 H Lactic Acid Calcium 7.7 L Iron TIBC Ferritin AST 110 H ALT 76 H Alkaline Phosphatase Ammonia Total Protein 6.0 L Albumin 2.8 L Vitamin B12 09/11/18 09/12/18 09/13/18 05:22 12:28 07:23 WBC 1.1 L* RBC 2.82 L Hgb 8.2 L Hct 25.5 L RDW 19.5 H Plt Count 103 L Lymph % (Auto) [place] % (Auto) Lymph # Seg Neutrophils % Seg Neuts % (Manual) Lymphocytes % (Manual) Monocytes % (Manual) 18.0 H Nucleated RBC % Seg Neutrophils # Man 0.6 L Lymphocytes # (Manual) 0.3 L PT 15.1 H Sodium 133 L Potassium 3.5 L Chloride 108.8 H Carbon Dioxide 14 L BUN 6 L Creatinine Glucose 123 H Lactic Acid Calcium 7.4 L Iron TIBC Ferritin AST 126 H ALT 77 H Alkaline Phosphatase Ammonia Total Protein 5.7 L Albumin 2.6 L Vitamin B12 09/15/18 09/15/18 09/17/18 00:51 04:31 10:52 WBC 1.2 L* 1.2 L* RBC 3.38 L 3.03 L Hgb 9.7 L 8.9 L Hct 29.5 L 27.2 L RDW 19.0 H 19.5 H Plt Count 95 L 59 L Lymph % (Auto) [place] % (Auto) Lymph # Seg Neutrophils % Seg Neuts % (Manual) Lymphocytes % (Manual) Monocytes % (Manual) 24.0 H 14.0 H Nucleated RBC % 2.0 H Seg Neutrophils # Man 0.6 L 0.8 L Lymphocytes # (Manual) 0.3 L 0.2 L PT Sodium Potassium Chloride 112.0 H Carbon Dioxide 13 L BUN Creatinine Glucose 65 L Lactic Acid Calcium Iron TIBC Ferritin AST ALT Alkaline Phosphatase Ammonia Total Protein Albumin Vitamin B12 09/21/18 09/24/18 09/26/18 15:26 00:33 07:54 WBC 1.6 L* 0.7 L* RBC 2.94 L 2.67 L Hgb 8.8 L 7.8 L Hct 26.3 L 23.8 L RDW 20.0 H 20.3 H Plt Count 26 L 28 L Lymph % (Auto) [place] % (Auto) Lymph # Seg Neutrophils % Seg Neuts % (Manual) Lymphocytes % (Manual) Monocytes % (Manual) 12.0 H 10.0 H Nucleated RBC % Seg Neutrophils # Man 1.0 L 0.4 L Lymphocytes # (Manual) 0.4 L 0.1 L PT Sodium Potassium Chloride Carbon Dioxide BUN Creatinine Glucose Lactic Acid Calcium Iron TIBC Ferritin AST ALT Alkaline Phosphatase Ammonia Total Protein Albumin Vitamin B12 1010 H 09/26/18 09/26/18 09/27/18 14:59 14:59 06:28 WBC 2.0 L 2.0 L RBC 2.85 L 2.88 L Hgb 8.3 L 8.4 L Hct 25.6 L 25.5 L RDW 20.2 H 19.4 H Plt Count 83 L D 84 L Lymph % (Auto) [place] % (Auto) Lymph # Seg Neutrophils % Seg Neuts % (Manual) 72.0 H Lymphocytes % (Manual) 11.0 L Monocytes % (Manual) 19.0 H 10.0 H Nucleated RBC % Seg Neutrophils # Man 1.3 L 1.4 L Lymphocytes # (Manual) 0.2 L 0.3 L PT Sodium Potassium Chloride 108.0 H Carbon Dioxide BUN Creatinine Glucose 102 H Lactic Acid Calcium Iron TIBC Ferritin AST 364 H ALT 128 H Alkaline Phosphatase 311 H Ammonia Total Protein Albumin 3.1 L Vitamin B12 09/27/18 09/28/18 09/28/18 06:28 06:03 06:03 WBC 2.1 L RBC 2.74 L Hgb 8.1 L Hct 24.6 L RDW 20.3 H Plt Count 117 L Lymph % (Auto) [place] % (Auto) Lymph # Seg Neutrophils % Seg Neuts % (Manual) 78.0 H Lymphocytes % (Manual) Monocytes % (Manual) 8.0 H Nucleated RBC % Seg Neutrophils # Man 1.6 L Lymphocytes # (Manual) 0.3 L PT Sodium Potassium Chloride 110.5 H 108.4 H Carbon Dioxide BUN 23 H 27 H Creatinine Glucose Lactic Acid Calcium Iron TIBC Ferritin AST ALT Alkaline Phosphatase Ammonia Total Protein Albumin Vitamin B12 09/28/18 09/29/18 09/29/18 06:03 07:04 07:04 WBC 1.5 L* RBC 2.90 L Hgb 8.6 L Hct 26.6 L RDW 20.4 H Plt Count 132 L Lymph % (Auto) [place] % (Auto) Lymph # Seg Neutrophils % Seg Neuts % (Manual) Lymphocytes % (Manual) Monocytes % (Manual) 16.0 H Nucleated RBC % 3.0 H Seg Neutrophils # Man 0.8 L Lymphocytes # (Manual) 0.4 L PT Sodium Potassium Chloride Carbon Dioxide BUN 26 H Creatinine Glucose Lactic Acid Calcium Iron TIBC Ferritin AST 380 H 304 H ALT 138 H 130 H Alkaline Phosphatase 317 H 306 H Ammonia Total Protein Albumin 3.4 L 3.5 L Vitamin B12 10/01/18 10/01/18 10/01/18 00:10 07:30 07:30 WBC 2.1 L 1.4 L* RBC 2.93 L 3.02 L Hgb 8.9 L 9.0 L Hct 27.0 L 27.8 L RDW 20.3 H 20.6 H Plt Count Lymph % (Auto) [place] % (Auto) Lymph # Seg Neutrophils % Seg Neuts % (Manual) Lymphocytes % (Manual) Monocytes % (Manual) 15.0 H 18.0 H Nucleated RBC % 1.0 H Seg Neutrophils # Man 1.3 L 0.7 L Lymphocytes # (Manual) 0.4 L 0.5 L PT Sodium Potassium Chloride 110.0 H Carbon Dioxide BUN 31 H Creatinine Glucose Lactic Acid Calcium Iron TIBC Ferritin AST ALT Alkaline Phosphatase Ammonia Total Protein Albumin Vitamin B12 10/02/18 10/02/18 10/03/18 06:00 06:00 05:58 WBC 1.3 L* 1.7 L* RBC 2.85 L 2.87 L Hgb 8.6 L 8.5 L Hct 26.6 L 26.5 L RDW 20.3 H 21.3 H Plt Count Lymph % (Auto) [place] % (Auto) Lymph # Seg Neutrophils % Seg Neuts % (Manual) 74.0 H Lymphocytes % (Manual) Monocytes % (Manual) 11.0 H 8.0 H Nucleated RBC % Seg Neutrophils # Man 0.8 L 1.3 L Lymphocytes # (Manual) 0.3 L 0.2 L PT Sodium Potassium Chloride 110.8 H Carbon Dioxide BUN Creatinine Glucose Lactic Acid Calcium Iron TIBC Ferritin AST 189 H ALT 105 H Alkaline Phosphatase 230 H Ammonia Total Protein Albumin 3.2 L Vitamin B12 Allied health notes reviewed: nursing
[2018-10-03] MEDS: NACL 0.9% 1000 ML 1,000 ML IV SCH (16:46)
[2018-10-04 07:06] LABS: BUN/Creatinine Ratio 18; Blood Urea Nitrogen 14 mg/dL (9-20); Calcium 8.3 mg/dL (8.4-10.2); Hemolysis Index 5
--- NOTE | 2018-10-04 07:41 | Hem/Onc Progress Note ---
Assessment and Plan 1. Anemia, leukopenia, thrombocytopenia. The question arises if this is HIV related, medication related, or infection related. deficiency Ix. bone marrow aspiration biopsy including culture was evaluated - but then as plt improved - this was cancelled. 2. smear evaluation. 3. Abnormal liver function test. 4. Iron is low, but ferritin is high, may be inflammatory etiology. 5. Human immunodeficiency virus. 6. The ID team following. 7. Micafungin. I had spoken with the pharmacy, based on the timing of the episodes. The patient was on IV Bactrim and then oral Bactrim, micafungin was used for a few days and stopped and restarted. 8. History of Carolann. 9. History of being treated for pneumonia. 10. Malnutrition. I will follow the patient during inpatient stay. 10/04 - plt normal path smear - schistocytes - but plt better [id number] ordered cause of low plt unclear as plt improved before oral bactrim could be stopped micafungin vs oral bactrim vs other causes low wbc - ANC >1 pt not in isolation - ct follow up - Patient Problems (1) Pancytopenia Current Visit: Yes Status: Acute Subjective Date of service: 10/04/18 Principal diagnosis: low wbc Interval history: says pt doing ok Objective - Constitutional Vitals: Last Vital Signs Temp 98.5 F 10/03/18 22:44 Pulse 68 10/03/18 22:44 Resp 18 10/03/18 22:44 BP 94/57 10/03/18 22:44 Pulse Ox 98 10/03/18 22:44 Pain Intensity (0-10): denies any pain General appearance: no acute distress Performance status: 3-limited selfcare - EENT Eyes: EOM intact ENT: hearing intact Lymph node exam: negative cervical - Respiratory Respiratory effort: Positive: normal Respiratory: bilateral: CTA - Cardiovascular Heart Sounds: Present: S1 & S2 Extremities: No edema - Gastrointestinal General gastrointestinal: Present: soft, non-tender Rectal Exam: deferred - Genitourinary Male genitourinary: Present: deferred - Integumentary Integumentary: warm - Musculoskeletal Musculoskeletal: generalized weakness - Neurologic Neurologic: moves all extremities - Labs Lab Results: Laboratory Results - last 24 hr 10/03/18 10/04/18 05:58 06:31 Add Manual Diff Complete Total Counted 100 Seg Neuts % (Manual) 74.0 H Band Neutrophils % 0 Lymphocytes % (Manual) 14.0 Reactive Lymphs % (Man) 4.0 Monocytes % (Manual) 8.0 H Eosinophils % (Manual) 0 Basophils % (Manual) 0 Metamyelocytes % 0 Myelocytes % 0 Promyelocytes % 0 Blast Cells % 0 Nucleated RBC % Not Reportable Seg Neutrophils # Man 1.3 L Band Neutrophils # 0.0 Lymphocytes # (Manual) 0.2 L Abs React Lymphs (Man) 0.1 Monocytes # (Manual) 0.1 Eosinophils # (Manual) 0.0 Basophils # (Manual) 0.0 Metamyelocytes # 0.0 Myelocytes # 0.0 Promyelocytes # 0.0 Blast Cells # 0.0 WBC Morphology Not Reportable Hypersegmented Neuts Not Reportable Hyposegmented Neuts Not Reportable Hypogranular Neuts Not Reportable Smudge Cells Not Reportable Toxic Granulation Not Reportable Toxic Vacuolation Not Reportable Dohle Bodies Not Reportable Pelger-Huet Anomaly Not Reportable Giovanni Rods Not Reportable Platelet Estimate Consistent w auto Clumped Platelets Not Reportable Plt Clumps, EDTA Not Reportable Large Platelets Not Reportable Giant Platelets Not Reportable Platelet Satelliting Not Reportable Plt Morphology Comment Not Reportable RBC Morphology Not Reportable Dimorphic RBCs Not Reportable Polychromasia Not Reportable Hypochromasia Not Reportable Poikilocytosis Not Reportable Anisocytosis Not Reportable Microcytosis Not Reportable Macrocytosis Not Reportable Spherocytes Not Reportable Pappenheimer Bodies Not Reportable Sickle Cells Not Reportable Target Cells Not Reportable Tear Drop Cells 2+ Ovalocytes Not Reportable Helmet Cells Not Reportable [place] Bodies Not Reportable [place] Rings Not Reportable [place] Cells Not Reportable Bite Cells Not Reportable Crenated Cell Not Reportable Elliptocytes 2+ Acanthocytes (Spur) Not Reportable Rouleaux Not Reportable Hemoglobin C Crystals Not Reportable Schistocytes Not Reportable Malaria parasites Not Reportable Carlos A Bodies Not Reportable Hem Pathologist Commnt No Sodium 146 H Potassium 3.4 L D Chloride 119.2 H Carbon Dioxide 18 L Anion Gap 12 BUN 14 Creatinine 0.8 Estimated GFR > 60 BUN/Creatinine Ratio 18 Glucose 88 Calcium 8.3 L Medications & Allergies - Medications Allergies/Adverse Reactions: Allergies No Known Allergies Allergy (Verified 07/18/18 14:08) Home Medications: Home Medications Medication Instructions Recorded Confirmed Last Taken Type Azithromycin [Zithromax TAB] 1,200 mg PO QWEEK #4 tablet 06/18/18 09/14/18 Unknown Rx Pantoprazole [Protonix TAB] 40 mg PO DAILY #30 tablet 06/19/18 09/14/18 Unknown Rx Nystas/Diphen/Xyl Visc/Mylanta 15 ml PO TID 14 Days oral.liqd 07/18/18 09/14/18 Unknown Rx [Magic Mouthwash] Nystas/Diphen/Xyl Visc/Mylanta 15 ml PO TID 30 Days #1 udc 07/23/18 09/14/18 Unknown Rx [Magic Mouthwash] Sulfamethoxazole/Trimethoprim 1 each PO QDAY 30 Days #30 tablet 07/23/18 09/14/18 Unknown Rx [Bactrim DS TAB] Posaconazole [Noxafil] 300 mg PO BID 1 Days #6 tablet. 08/03/18 09/14/18 Unknown Rx Posaconazole [Noxafil] 300 mg PO QDAY 13 Days #39 08/03/18 09/14/18 Unknown Rx tablet. Acyclovir [Zovirax Tab] 400 mg PO Q8H 30 Days #90 tab 08/04/18 09/14/18 Unknown Rx Azithromycin [Zithromax TAB] 1,200 mg PO QDAY 30 Days #8 tablet 08/04/18 09/14/18 Unknown Rx Loperamide [Imodium] 2 mg PO Q2H PRN #30 capsule 08/04/18 09/14/18 Unknown Rx Midodrine HCl 2.5 mg PO DAILY #30 tablet 08/04/18 09/14/18 Unknown Rx Active Medications: Generic Name Dose Route Start Last Admin Trade Name Freq PRN Reason Stop Dose Admin Acetaminophen 650 mg 09/05/18 02:48 10/03/18 14:25 Tylenol PO 650 mg Q4H PRN Administration Pain MILD(1-3)/Fever >100.5/VILLAREAL Atovaquone 750 mg 09/28/18 13:00 10/03/18 22:19 Mepron PO 750 mg BID GLEN Administration Emtricitabine 200 mg 09/20/18 14:00 10/03/18 11:27 Emtriva PO 200 mg QDAY GLEN Administration Famotidine 10 mg 04/17/19 22:00 10/03/18 22:19 Pepcid PO 10 mg BID GLEN Administration Sodium Chloride 1,000 mls @ 100 mls/hr 09/16/18 08:00 10/03/18 16:46 Nacl 0.9% 1000 Ml IV 100 mls/hr DIRECT GLEN Administration Micafungin Sodium 100 mg/ 100 mls @ 100 mls/hr 09/24/18 14:00 10/03/18 11:23 Sodium Chloride IV 100 mls/hr QDAY GLEN Administration Protocol Megestrol Acetate 400 mg 09/24/18 10:00 10/03/18 11:27 Megace PO 400 mg QDAY GLEN Administration Midodrine 10 mg 09/05/18 19:00 10/03/18 16:48 Proamatine PO 10 mg TID@0800,1200,1600 GLEN Administration Nystatin 500,000 unit 09/10/18 20:00 10/03/18 20:50 Nystatin PO 500,000 unit TID GLEN Administration Ondansetron HCl 4 mg 09/05/18 02:48 09/10/18 13:06 Zofran IV 4 mg Q8H PRN Administration Nausea And Vomiting Sodium Chloride 10 ml 09/05/18 10:00 10/03/18 22:19 Sodium Chloride Flush Syringe 10 Ml IV 10 ml BID GLEN Administration Sodium Chloride 10 ml 09/05/18 02:48 Sodium Chloride Flush Syringe 10 Ml IV PRN PRN LINE FLUSH Tenofovir Disoproxil Fumarate 300 mg 09/20/18 14:00 10/03/18 11:28 Viread PO 300 mg QDAY GLEN Administration
[2018-10-04 08:54] LABS: Hematocrit 25.2 % (35.5-45.6); Hemoglobin 8.2 gm/dl (11.8-15.2); Mean Corpuscular HGB Conc 32 % (32-34); Mean Corpuscular Volume 93 fl (84-94); Red Blood Count 2.71 M/mm3 (3.65-5.03)
[2018-10-04 08:55] LABS: Platelet Count 225 K/mm3 (140-440); Red Cell Distribution Width 20.9 % (13.2-15.2)
[2018-10-04] MEDS ORDERED: K-DUR PO ONE ×2 (09:00→13:00)
[2018-10-04] MEDS: SODIUM CHLORIDE FLUSH SYRINGE 10 ML IV SCH ×2 (10:00→21:43)
--- NOTE | 2018-10-04 10:34 | Progress Note ---
Assessment and Plan Culture 09/08/2018 Blood culture: no growth 09/08/2018 Serum Cr Ag: negative 09/09/2018 Blood culture: no growth thus far 09/09/2018 urine culture no growth 09/08/2018 :Fungal blood: no fungus isolated A/P: 42 year old male, know to ID from previous admissions on 06/23/18-06/19/18 and 07/18/18- 08/04/18 for pneumonia, HIV/AIDS, severe oral candidiasis and diarrhea. CD4 count 11. Viral Load [id number]. HIV genotype 06/18/2018 with few resistance mutations. CMV negative. Patient remains noncompliant with his HAART therapy. Now admitted with: 1. Altered Mental Status/Acute Encephalopathy: Back to baseline. . 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 CT head shows no acute intracranial abnormality. + chronic maxillary and ethmoid sinusitis. MRI images showing brain atrophy, no focal lesions to suggest toxoplasma, PML, ventriculitis, W[employer]IST lymphoma or other space occupying lesions. Crypto Ag is negative. TTE shows no valvular vegetation, EF 30-35 %.Fungitell: negative. CMV DNR - <200 2. Oral Candidiasis: better on micafungin; White plaque on the oropharynx, tongue and inner and outer portion of the lips. h/o resistant Carolann. Continue Nystatin. 3. HIV/AIDS: Last admission in June CD4 count 11. Viral load high. Prognosis is poor.HIV therapy started 09/20/18 with Truvada + Tivicay. Currently compliant with medication regimen at hospital. 4. Severe Malnutrition: related to HIV AIDS 5. Transaminitis: worsening ? unclear etiology. Abdominal ultrasound u nremarkable. CT abdomen showing possible enteritis and somewhat inhomogenous liver. may be due to ischemic hepatitis, HIV/AIDS hepatopathy, infectious etiology with viral hepatitis, vs drug toxicity- GI following. Stable to improving. Evaluating for disseminated MAC, fungal/mycolytic blood cultures in process. HAV, HBV, HCV - nonreactive x2 6. New Fevers : Resolved. 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 CAP vs PCP: Chest CT shows Bilateral pneumonia with findings most prominent in the left lower lobe as described. Bronchiectatic changes in left lower lobe noted also. Scattered blebs in the left lung. Fungitell negative, so PCP quite less likely. bilateral ground glass opacities could be fluid given cardiomyopathy and low EF. 8. Pancytopenia: better today, throbocytopenia resolved; likely from untreated HIV and AIDS. Antiretroviral treatment started 09/20/18. HHV-8 negative, repeat CMV PCR on 09/24 negative. Plan: -continue mepron 750 mg PO BID for PJP prophylaxis - add azithromycin 1200 mg po qweek -continue nystatin swish and swallow -Continue Truvada + Tivicay started 09/20/18 -f/u AFB fungal blood culture -ok to d/c with ID clinic in [address] Carranza, please send him on Truvada (200mg/300mg) 1 tab q day + Tivicay 50 mg PO qday (1 month 1 refill), nystatin SS BID, mepron 750 mg PO BID (1 month 1 refill) and azithromyicn 1200 mg PO qweek. ID is signing off [facility] M: [id number] O:[phone] Subjective Date of service: 10/04/18 Principal diagnosis: low wbc Interval history: Patient seen and examined. Awake. Alert. Reports no generalized pain or weakness. Answering questions appropriately. Objective - Exam Narrative Exam: Constitutional: Awake. Alert. No acute distress. Head, Ears, Nose: Normocephalic, atraumatic. External ears, nose normal Eyes: Conjunctivae/corneas clear. No icterus. No ptosis. Neck: Supple, no meningeal signs Oral: dentition poor. ,Oral candidiasis- improved Cardiovascular: S1, S2 normal. Respiratory: Good air entry, clear to auscultation bilaterally GI: Soft,, no tenderness on exam, bowel sounds normal. 2 loose stools Musculoskeletal: No pedal edema, no cyanosis. Skin: No rash or abscess. Hem/Lymphatic: No palpable cervical or supraclavicular nodes. No lymphangitis Psych: Mood ok. Affect flat, Neurological: Awake. Alert. oriented. - Constitutional Vitals: Vital Signs Temp Pulse Resp BP Pulse Ox 98.5 F 68 18 94/57 98 10/03/18 22:44 10/03/18 22:44 10/03/18 22:44 10/03/18 22:44 10/03/18 22:44 Temperature -Last 24 Hours Temperature 98.5 F Temperature 97.9 F Temperature 97.8 F - Labs CBC & Chem 7: 10/04/18 06:31 10/04/18 06:31 Labs: Abnormal lab results 10/04/18 10/04/18 Range/Units 06:31 06:31 WBC 1.4 L* (4.5-11.0) K/mm3 RBC 2.71 L (3.65-5.03) M/mm3 Hgb 8.2 L (11.8-15.2) gm/dl Hct 25.2 L (35.5-45.6) % RDW 20.9 H (13.2-15.2) % Sodium 146 H (137-145) mmol/L Potassium 3.4 L D (3.6-5.0) mmol/L Chloride 119.2 H (98-107) mmol/L Carbon Dioxide 18 L (22-30) mmol/L Calcium 8.3 L (8.4-10.2) mg/dL
[2018-10-04] MEDS ORDERED: ZITHROMAX PO SCH (12:00)
[2018-10-04] MEDS: PROAMATINE PO SCH ×3 (12:00→18:23)
[2018-10-04] MEDS: VIREAD PO SCH (12:10)
[2018-10-04] MEDS: EMTRIVA PO SCH (12:11)
[2018-10-04] MEDS: TIVICAY PO SCH (12:13)
[2018-10-04] MEDS: MEGACE PO SCH (12:13)
[2018-10-04] MEDS: MEPRON PO SCH ×2 (12:14→21:42)
[2018-10-04] MEDS: PEPCID PO SCH ×2 (12:16→21:42)
[2018-10-04] MEDS: NYSTATIN PO SCH ×3 (12:22→21:42)
[2018-10-04] MEDS: MYCAMINE 100 MG in NACL 0.9% 100 ML IV SCH (12:22)
--- NOTE | 2018-10-04 14:29 | Progress Note ---
Assessment and Plan Patient awake and resting on room air . No acute respiratory distress. O2 saturation 98%. Patient aferbile and has leukopenia.Not much change in patients condition. - Patient Problems (1) Pneumonia Current Visit: Yes Status: Acute Qualifiers: Pneumonia type: due to unspecified organism Laterality: left Lung location: lower lobe of lung Qualified Code(s): J18.1 - Lobar pneumonia, unspecified organism Plan to address problem: Patient is on zithromax. (2) AIDS Current Visit: Yes Status: Chronic Plan to address problem: Management as per infectious diseases. (3) Altered mental status Current Visit: Yes Status: Acute Plan to address problem: Management as per primary care and neurology. (4) Oral candidiasis Current Visit: Yes Status: Acute Plan to address problem: Patient getting nystatin. Subjective Date of service: 10/04/18 Principal diagnosis: low wbc Interval history: Patient awake and resting on room air . No acute respiratory distress. O2 saturation 98%. Patient aferbile and has leukopenia.Not much change in patien ts condition. Objective Vital Signs - 12hr 10/04/18 10/04/18 05:58 12:12 Temperature 98.1 F 98.6 F Pulse Rate 82 89 Respiratory 18 20 Rate Blood Pressure 103/68 102/63 O2 Sat by Pulse 85 98 Oximetry Constitutional: no acute distress, alert, other (Weak) Eyes: non-icteric ENT: oropharynx moist Neck: supple, no lymphadenopathy Effort: normal Ascultation: Bilateral: diminished breath sounds, other (Prolonged expiratory phase.) Percussion: Bilateral: not dull Cardiovascular: regular rate and rhythm Gastrointestinal: normoactive bowel sounds, soft, non-tender, non-distended Integumentary: other (poor turgor) Extremities: no cyanosis, no edema, pulses normal, no ischemia or petechiae Neurologic: non-focal exam (grossly), pupils equal and round, CN II-XII normal, other (very weak) Psychiatric: other (flat affect) CBC and BMP: 10/04/18 06:31 10/04/18 06:31 ABG, PT/INR, D-dimer: PT/INR, D-dimer PT 12.8 Sec. (12.2-14.9) 09/27/18 10:21 INR 0.91 (0.87-1.13) 09/27/18 10:21 Abnormal lab findings: Abnormal Labs 09/04/18 09/04/18 09/04/18 21:00 21:00 22:32 WBC RBC 3.23 L Hgb 9.6 L Hct 28.9 L RDW 18.8 H Plt Count Lymph % (Auto) [place] % (Auto) 12.5 H Lymph # 0.7 L Seg Neutrophils % 72.4 H Seg Neuts % (Manual) Lymphocytes % (Manual) Monocytes % (Manual) Nucleated RBC % Seg Neutrophils # Man Lymphocytes # (Manual) PT Sodium Potassium Chloride 109.9 H Carbon Dioxide 21 L BUN 31 H Creatinine Glucose Lactic Acid 2.40 H* Calcium 8.2 L Iron TIBC Ferritin AST 200 H ALT 136 H Alkaline Phosphatase 138 H Ammonia Total Protein Albumin 3.5 L Vitamin B12 09/04/18 09/05/18 09/05/18 22:32 16:19 16:19 WBC RBC Hgb Hct RDW Plt Count Lymph % (Auto) [place] % (Auto) Lymph # Seg Neutrophils % Seg Neuts % (Manual) Lymphocytes % (Manual) Monocytes % (Manual) Nucleated RBC % Seg Neutrophils # Man Lymphocytes # (Manual) PT Sodium Potassium Chloride 112.4 H Carbon Dioxide 19 L BUN Creatinine Glucose Lactic Acid Calcium 8.1 L Iron TIBC 223 L Ferritin AST 241 H ALT 138 H Alkaline Phosphatase Ammonia 64.0 H Total Protein Albumin 3.1 L Vitamin B12 09/05/18 09/06/18 09/06/18 16:19 10:40 10:40 WBC 2.4 L RBC 2.67 L Hgb 7.7 L Hct 23.7 L RDW 18.7 H Plt Count 135 L Lymph % (Auto) 10.0 L [place] % (Auto) 8.4 H Lymph # 0.2 L Seg Neutrophils % 81.1 H Seg Neuts % (Manual) Lymphocytes % (Manual) Monocytes % (Manual) Nucleated RBC % Seg Neutrophils # Man Lymphocytes # (Manual) PT Sodium Potassium Chloride 112.1 H Carbon Dioxide 19 L BUN Creatinine 0.7 L Glucose Lactic Acid Calcium 7.8 L Iron TIBC Ferritin 2880.0 H AST 263 H ALT 143 H Alkaline Phosphatase Ammonia Total Protein 6.1 L Albumin 2.8 L Vitamin B12 09/07/18 09/07/18 09/08/18 10:38 10:38 06:39 WBC RBC 2.86 L Hgb 8.3 L Hct 25.2 L RDW 18.3 H Plt Count 123 L Lymph % (Auto) 6.1 L [place] % (Auto) Lymph # 0.3 L Seg Neutrophils % 87.3 H Seg Neuts % (Manual) Lymphocytes % (Manual) Monocytes % (Manual) Nucleated RBC % Seg Neutrophils # Man Lymphocytes # (Manual) PT Sodium Potassium Chloride Carbon Dioxide BUN Creatinine Glucose Lactic Acid Calcium Iron 26 L TIBC 212 L Ferritin 2762.0 H AST ALT Alkaline Phosphatase Ammonia Total Protein Albumin Vitamin B12 09/08/18 09/08/18 09/09/18 06:39 13:43 07:03 WBC RBC Hgb Hct RDW Plt Count Lymph % (Auto) [place] % (Auto) Lymph # Seg Neutrophils % Seg Neuts % (Manual) Lymphocytes % (Manual) Monocytes % (Manual) Nucleated RBC % Seg Neutrophils # Man Lymphocytes # (Manual) PT Sodium Potassium 3.2 L 3.5 L Chloride 111.9 H 108.6 H Carbon Dioxide 13 L 15 L BUN 6 L 4 L Creatinine Glucose 118 H Lactic Acid Calcium 7.5 L 7.5 L Iron TIBC Ferritin AST 117 H 130 H ALT 87 H 86 H Alkaline Phosphatase Ammonia Total Protein 5.6 L 6.0 L Albumin 2.6 L 2.6 L Vitamin B12 09/09/18 09/10/18 09/10/18 07:31 04:26 04:26 WBC 3.5 L 2.1 L RBC 2.82 L 3.10 L Hgb 8.2 L 9.0 L Hct 24.6 L 27.1 L RDW 18.8 H 18.6 H Plt Count 136 L 139 L Lymph % (Auto) [place] % (Auto) Lymph # Seg Neutrophils % Seg Neuts % (Manual) 77.0 H Lymphocytes % (Manual) 11.0 L Monocytes % (Manual) 11.0 H Nucleated RBC % Seg Neutrophils # Man 1.6 L Lymphocytes # (Manual) 0.2 L PT Sodium Potassium Chloride 112.7 H Carbon Dioxide 14 L BUN 5 L Creatinine Glucose 109 H Lactic Acid Calcium 7.7 L Iron TIBC Ferritin AST 110 H ALT 76 H Alkaline Phosphatase Ammonia Total Protein 6.0 L Albumin 2.8 L Vitamin B12 09/11/18 09/12/18 09/13/18 05:22 12:28 07:23 WBC 1.1 L* RBC 2.82 L Hgb 8.2 L Hct 25.5 L RDW 19.5 H Plt Count 103 L Lymph % (Auto) [place] % (Auto) Lymph # Seg Neutrophils % Seg Neuts % (Manual) Lymphocytes % (Manual) Monocytes % (Manual) 18.0 H Nucleated RBC % Seg Neutrophils # Man 0.6 L Lymphocytes # (Manual) 0.3 L PT 15.1 H Sodium 133 L Potassium 3.5 L Chloride 108.8 H Carbon Dioxide 14 L BUN 6 L Creatinine Glucose 123 H Lactic Acid Calcium 7.4 L Iron TIBC Ferritin AST 126 H ALT 77 H Alkaline Phosphatase Ammonia Total Protein 5.7 L Albumin 2.6 L Vitamin B12 09/15/18 09/15/18 09/17/18 00:51 04:31 10:52 WBC 1.2 L* 1.2 L* RBC 3.38 L 3.03 L Hgb 9.7 L 8.9 L Hct 29.5 L 27.2 L RDW 19.0 H 19.5 H Plt Count 95 L 59 L Lymph % (Auto) [place] % (Auto) Lymph # Seg Neutrophils % Seg Neuts % (Manual) Lymphocytes % (Manual) Monocytes % (Manual) 24.0 H 14.0 H Nucleated RBC % 2.0 H Seg Neutrophils # Man 0.6 L 0.8 L Lymphocytes # (Manual) 0.3 L 0.2 L PT Sodium Potassium Chloride 112.0 H Carbon Dioxide 13 L BUN Creatinine Glucose 65 L Lactic Acid Calcium Iron TIBC Ferritin AST ALT Alkaline Phosphatase Ammonia Total Protein Albumin Vitamin B12 09/21/18 09/24/18 09/26/18 15:26 00:33 07:54 WBC 1.6 L* 0.7 L* RBC 2.94 L 2.67 L Hgb 8.8 L 7.8 L Hct 26.3 L 23.8 L RDW 20.0 H 20.3 H Plt Count 26 L 28 L Lymph % (Auto) [place] % (Auto) Lymph # Seg Neutrophils % Seg Neuts % (Manual) Lymphocytes % (Manual) Monocytes % (Manual) 12.0 H 10.0 H Nucleated RBC % Seg Neutrophils # Man 1.0 L 0.4 L Lymphocytes # (Manual) 0.4 L 0.1 L PT Sodium Potassium Chloride Carbon Dioxide BUN Creatinine Glucose Lactic Acid Calcium Iron TIBC Ferritin AST ALT Alkaline Phosphatase Ammonia Total Protein Albumin Vitamin B12 1010 H 09/26/18 09/26/18 09/27/18 14:59 14:59 06:28 WBC 2.0 L 2.0 L RBC 2.85 L 2.88 L Hgb 8.3 L 8.4 L Hct 25.6 L 25.5 L RDW 20.2 H 19.4 H Plt Count 83 L D 84 L Lymph % (Auto) [place] % (Auto) Lymph # Seg Neutrophils % Seg Neuts % (Manual) 72.0 H Lymphocytes % (Manual) 11.0 L Monocytes % (Manual) 19.0 H 10.0 H Nucleated RBC % Seg Neutrophils # Man 1.3 L 1.4 L Lymphocytes # (Manual) 0.2 L 0.3 L PT Sodium Potassium Chloride 108.0 H Carbon Dioxide BUN Creatinine Glucose 102 H Lactic Acid Calcium Iron TIBC Ferritin AST 364 H ALT 128 H Alkaline Phosphatase 311 H Ammonia Total Protein Albumin 3.1 L Vitamin B12 09/27/18 09/28/18 09/28/18 06:28 06:03 06:03 WBC 2.1 L RBC 2.74 L Hgb 8.1 L Hct 24.6 L RDW 20.3 H Plt Count 117 L Lymph % (Auto) [place] % (Auto) Lymph # Seg Neutrophils % Seg Neuts % (Manual) 78.0 H Lymphocytes % (Manual) Monocytes % (Manual) 8.0 H Nucleated RBC % Seg Neutrophils # Man 1.6 L Lymphocytes # (Manual) 0.3 L PT Sodium Potassium Chloride 110.5 H 108.4 H Carbon Dioxide BUN 23 H 27 H Creatinine Glucose Lactic Acid Calcium Iron TIBC Ferritin AST ALT Alkaline Phosphatase Ammonia Total Protein Albumin Vitamin B12 09/28/18 09/29/18 09/29/18 06:03 07:04 07:04 WBC 1.5 L* RBC 2.90 L Hgb 8.6 L Hct 26.6 L RDW 20.4 H Plt Count 132 L Lymph % (Auto) [place] % (Auto) Lymph # Seg Neutrophils % Seg Neuts % (Manual) Lymphocytes % (Manual) Monocytes % (Manual) 16.0 H Nucleated RBC % 3.0 H Seg Neutrophils # Man 0.8 L Lymphocytes # (Manual) 0.4 L PT Sodium Potassium Chloride Carbon Dioxide BUN 26 H Creatinine Glucose Lactic Acid Calcium Iron TIBC Ferritin AST 380 H 304 H ALT 138 H 130 H Alkaline Phosphatase 317 H 306 H Ammonia Total Protein Albumin 3.4 L 3.5 L Vitamin B12 10/01/18 10/01/18 10/01/18 00:10 07:30 07:30 WBC 2.1 L 1.4 L* RBC 2.93 L 3.02 L Hgb 8.9 L 9.0 L Hct 27.0 L 27.8 L RDW 20.3 H 20.6 H Plt Count Lymph % (Auto) [place] % (Auto) Lymph # Seg Neutrophils % Seg Neuts % (Manual) Lymphocytes % (Manual) Monocytes % (Manual) 15.0 H 18.0 H Nucleated RBC % 1.0 H Seg Neutrophils # Man 1.3 L 0.7 L Lymphocytes # (Manual) 0.4 L 0.5 L PT Sodium Potassium Chloride 110.0 H Carbon Dioxide BUN 31 H Creatinine Glucose Lactic Acid Calcium Iron TIBC Ferritin AST ALT Alkaline Phosphatase Ammonia Total Protein Albumin Vitamin B12 10/02/18 10/02/18 10/03/18 06:00 06:00 05:58 WBC 1.3 L* 1.7 L* RBC 2.85 L 2.87 L Hgb 8.6 L 8.5 L Hct 26.6 L 26.5 L RDW 20.3 H 21.3 H Plt Count Lymph % (Auto) [place] % (Auto) Lymph # Seg Neutrophils % Seg Neuts % (Manual) 74.0 H Lymphocytes % (Manual) Monocytes % (Manual) 11.0 H 8.0 H Nucleated RBC % Seg Neutrophils # Man 0.8 L 1.3 L Lymphocytes # (Manual) 0.3 L 0.2 L PT Sodium Potassium Chloride 110.8 H Carbon Dioxide BUN Creatinine Glucose Lactic Acid Calcium Iron TIBC Ferritin AST 189 H ALT 105 H Alkaline Phosphatase 230 H Ammonia Total Protein Albumin 3.2 L Vitamin B12 10/04/18 10/04/18 06:31 06:31 WBC 1.4 L* RBC 2.71 L Hgb 8.2 L Hct 25.2 L RDW 20.9 H Plt Count Lymph % (Auto) [place] % (Auto) Lymph # Seg Neutrophils % Seg Neuts % (Manual) Lymphocytes % (Manual) Monocytes % (Manual) Nucleated RBC % Seg Neutrophils # Man Lymphocytes # (Manual) PT Sodium 146 H Potassium 3.4 L D Chloride 119.2 H Carbon Dioxide 18 L BUN Creatinine Glucose Lactic Acid Calcium 8.3 L Iron TIBC Ferritin AST ALT Alkaline Phosphatase Ammonia Total Protein Albumin Vitamin B12 Allied health notes reviewed: nursing
--- NOTE | 2018-10-04 15:32 | Progress Note ---
Assessment and Plan Assessment and plan: 42 yo male patient history of HIV/AIDs and anemia was admitted through emergency room with AMS on 09/04/18. Patient was just discharged from here on 08/04/2018 for sepsis, LLL, lingula pneumonia and severe oral candidiasis. Encephalopathy was attributed to acute metabolic encephalopathy from HIV encephalopathy/FTT/malnutrition, which has resolved. The patient has noted to have hypotension which is felt to be acute on chronic and not sepsis related. His effective circulatory volume is low due to his malnutrition from severe HIV/AIDS. Patient also noted to have other complications related to this including pancytopenia and oral candidiasis which has been treated. Patient is being followed by ID and hematology oncology Patient is stabilized now is cleared for discharge, awaiting SNF placement -- HIV/ AIDS: Management per ID, Last admission in June CD4 count 11. Viral load high. Prognosis is poor. Agreed to go to SNF. HIV therapy started 09/20/18 with Truvada + Tivicay. Tomi nue Bactrim DS daily. --Pancytopenia; severe neutropenia ,platelets slightly improved, hematology f milan, discussed with Dr. Radford No indication for bone marrow biopsy at this point, pancytopenia due to underlying HIV AIDS --Acute encephalopathy ; probably HIV encephalopathy CT head negative abnormality. + chronic maxillary and ethmoid sinusitis. MRI images showing brain atrophy, no focal lesions to suggest toxoplasma, PML, ventriculitis, ACROBATIC DANCER lymphoma or other space occupying lesions. Crypto Ag is negative. TTE shows no valvular vegetation, EF 30-35 %. --Fungitell: negative, -CMV --Chronic hypotension: Multifactorial Fluid boluses, supportive care --Sinus bradycardia. Resolved ,Cardiology evaluated ,conservative management --Oral candidiasis: h/o resistant Carolann. improved. Continue Nystatin and s/p 10 days micafungin per ID --Severe protein calorie malnutrition related to HIV AIDS., Nutritional supplements and supportive care --Transaminitis; Abdominal ultrasound unremarkable. CT abdomen showing possible enteritis and somewhat inhomogenous liver. may be due to ischemic hepatitis, HIV/AIDS hepatopathy, infectious etiology with viral hepatitis, vs drug toxicity- GI following. Stable to improving. Evaluating for disseminated MAC, fungal/mycolytic blood cultures in process. Hepatitis panel negative --Cardiomyopathy /probably HIV related ,TTE no valvular vegetation, EF 30-35% on anti-failure medications --Bilateral pneumonia: Chest CT shows Bilateral pneumonia with findings most prominent in the left lower lobe as described. Bronchiectatic changes in left lower lobe noted also. Scattered blebs in the left lung. Fungitell negative, so PCP quite less likely. bilateral ground glass opacities could be fluid ,given cardiomyopathy and low EF. --Disposition: awaiting SNF placement. Cardiology and ID recommend Hospice, but patient refuses. Plan of care is reviewed with the patient has not been the case management History Interval history: Patient seen and examined medical records reviewed Clinically no change, patient is chronically ill looking cachectic No new complaints, awaiting placement Vital signs noted Hospitalist Physical - Constitutional Vitals: Temp Pulse Resp BP Pulse Ox 98.6 F 89 20 102/63 98 10/04/18 12:12 10/04/18 12:12 10/04/18 12:12 10/04/18 12:12 10/04/18 12:12 General appearance: Present: no acute distress, well-nourished - EENT Eyes: Present: PERRL, EOM intact - Neck Neck: Present: supple, normal ROM - Respiratory Respiratory effort: normal Respiratory: bilateral: diminished, negative: rales, rhonchi, wheezing - Cardiovascular Rhythm: regular Heart Sounds: Present: S1 & S2 - Extremities Extremities: no ischemia, No edema - Abdominal General gastrointestinal: soft, non-tender, non-distended, normal bowel sounds - Integumentary Integumentary: Present: clear, warm - Psychiatric Psychiatric: appropriate mood/affect, cooperative - Neurologic Neurologic: CNII-XII intact, moves all extremities Results - Labs CBC & Chem 7: 10/04/18 06:31 10/04/18 06:31 Labs: Laboratory Last Values WBC 1.4 K/mm3 (4.5-11.0) L* 10/04/18 06:31 RBC 2.71 M/mm3 (3.65-5.03) L 10/04/18 06:31 Hgb 8.2 gm/dl (11.8-15.2) L 10/04/18 06:31 Hct 25.2 % (35.5-45.6) L 10/04/18 06:31 MCV 93 fl (84-94) 10/04/18 06:31 MCH 30 pg (28-32) 10/04/18 06:31 MCHC 32 % (32-34) 10/04/18 06:31 RDW 20.9 % (13.2-15.2) H 10/04/18 06:31 Plt Count 225 K/mm3 (140-440) 10/04/18 06:31 Lymph % (Auto) Not Reportable 10/04/18 06:31 [place] % (Auto) Not Reportable 10/04/18 06:31 Eos % (Auto) Not Reportable 10/04/18 06:31 Baso % (Auto) Not Reportable 10/04/18 06:31 Lymph # Not Reportable 10/04/18 06:31 [place] # Not Reportable 10/04/18 06:31 Eos # Not Reportable 10/04/18 06:31 Baso # Not Reportable 10/04/18 06:31 Add Manual Diff Complete 10/03/18 05:58 Total Counted 100 10/03/18 05:58 Seg Neutrophils % 87.3 % (40.0-70.0) H 09/08/18 06:39 Seg Neuts % (Manual) 74.0 % (40.0-70.0) H 10/03/18 05:58 Band Neutrophils % 0 % 10/03/18 05:58 Lymphocytes % (Manual) 14.0 % (13.4-35.0) 10/03/18 05:58 Reactive Lymphs % (Man) 4.0 % 10/03/18 05:58 Monocytes % (Manual) 8.0 % (0.0-7.3) H 10/03/18 05:58 Eosinophils % (Manual) 0 % (0.0-4.3) 10/03/18 05:58 Basophils % (Manual) 0 % (0.0-1.8) 10/03/18 05:58 Metamyelocytes % 0 % 10/03/18 05:58 Myelocytes % 0 % 10/03/18 05:58 Promyelocytes % 0 % 10/03/18 05:58 Blast Cells % 0 % 10/03/18 05:58 Nucleated RBC % Not Reportable 10/03/18 05:58 Seg Neutrophils # Not Reportable 10/04/18 06:31 Seg Neutrophils # Man 1.3 K/mm3 (1.8-7.7) L 10/03/18 05:58 Band Neutrophils # 0.0 K/mm3 10/03/18 05:58 Lymphocytes # (Manual) 0.2 K/mm3 (1.2-5.4) L 10/03/18 05:58 Abs React Lymphs (Man) 0.1 K/mm3 10/03/18 05:58 Monocytes # (Manual) 0.1 K/mm3 (0.0-0.8) 10/03/18 05:58 Eosinophils # (Manual) 0.0 K/mm3 (0.0-0.4) 10/03/18 05:58 Basophils # (Manual) 0.0 K/mm3 (0.0-0.1) 10/03/18 05:58 Metamyelocytes # 0.0 K/mm3 10/03/18 05:58 Myelocytes # 0.0 K/mm3 10/03/18 05:58 Promyelocytes # 0.0 K/mm3 10/03/18 05:58 Blast Cells # 0.0 K/mm3 10/03/18 05:58 Pathologist Review 09/24/18 00:33 WBC Morphology Not Reportable 10/03/18 05:58 Hypersegmented Neuts Not Reportable 10/03/18 05:58 Hyposegmented Neuts Not Reportable 10/03/18 05:58 Hypogranular Neuts Not Reportable 10/03/18 05:58 Smudge Cells Not Reportable 10/03/18 05:58 Toxic Granulation Not Reportable 10/03/18 05:58 Toxic Vacuolation Not Reportable 10/03/18 05:58 Dohle Bodies Not Reportable 10/03/18 05:58 Pelger-Huet Anomaly Not Reportable 10/03/18 05:58 Giovanni Rods Not Reportable 10/03/18 05:58 Platelet Estimate Consistent w auto 10/03/18 05:58 Clumped Platelets Not Reportable 10/03/18 05:58 Plt Clumps, EDTA Not Reportable 10/03/18 05:58 Large Platelets Not Reportable 10/03/18 05:58 Giant Platelets Not Reportable 10/03/18 05:58 Platelet Satelliting Not Reportable 10/03/18 05:58 Plt Morphology Comment Not Reportable 10/03/18 05:58 RBC Morphology Not Reportable 10/03/18 05:58 Dimorphic RBCs Not Reportable 10/03/18 05:58 Polychromasia Not Reportable 10/03/18 05:58 Hypochromasia Not Reportable 10/03/18 05:58 Poikilocytosis Not Reportable 10/03/18 05:58 Anisocytosis Not Reportable 10/03/18 05:58 Microcytosis Not Reportable 10/03/18 05:58 Macrocytosis Not Reportable 10/03/18 05:58 Spherocytes Not Reportable 10/03/18 05:58 Pappenheimer Bodies Not Reportable 10/03/18 05:58 Sickle Cells Not Reportable 10/03/18 05:58 Target Cells Not Reportable 10/03/18 05:58 Tear Drop Cells 2+ 10/03/18 05:58 Ovalocytes Not Reportable 10/03/18 05:58 Helmet Cells Not Reportable 10/03/18 05:58 [place] Bodies Not Reportable 10/03/18 05:58 [place] Rings Not Reportable 10/03/18 05:58 [place] Cells Not Reportable 10/03/18 05:58 Bite Cells Not Reportable 10/03/18 05:58 Crenated Cell Not Reportable 10/03/18 05:58 Elliptocytes 2+ 10/03/18 05:58 Acanthocytes (Spur) Not Reportable 10/03/18 05:58 Rouleaux Not Reportable 10/03/18 05:58 Hemoglobin C Crystals Not Reportable 10/03/18 05:58 Schistocytes Not Reportable 10/03/18 05:58 Malaria parasites Not Reportable 10/03/18 05:58 Carlos A Bodies Not Reportable 10/03/18 05:58 Hem Pathologist Commnt No 10/03/18 05:58 PT 12.8 Sec. (12.2-14.9) 09/27/18 10:21 INR 0.91 (0.87-1.13) 09/27/18 10:21 APTT 30.4 Sec. (24.2-36.6) 09/27/18 10:21 Heparin Anti-Xa, Unfract Negative (Negative) 09/24/18 10:14 Sodium 146 mmol/L (137-145) H 10/04/18 06:31 Potassium 3.4 mmol/L (3.6-5.0) L D 10/04/18 06:31 Chloride 119.2 mmol/L (98-107) H 10/04/18 06:31 Carbon Dioxide 18 mmol/L (22-30) L 10/04/18 06:31 Anion Gap 12 mmol/L 10/04/18 06:31 BUN 14 mg/dL (9-20) 10/04/18 06:31 Creatinine 0.8 mg/dL (0.8-1.5) 10/04/18 06:31 Estimated GFR > 60 ml/min 10/04/18 06:31 BUN/Creatinine Ratio 18 % 10/04/18 06:31 Glucose 88 mg/dL (75-100) 10/04/18 06:31 POC Glucose 91 (70-105) 09/09/18 07:18 Lactic Acid 1.30 mmol/L (0.7-2.0) 09/05/18 03:50 Calcium 8.3 mg/dL (8.4-10.2) L 10/04/18 06:31 Magnesium 2.30 mg/dL (1.7-2.3) 10/01/18 07:30 Iron 26 ug/dL (49-181) L 09/07/18 10:38 TIBC 212 mcg/dL (250-450) L 09/07/18 10:38 Ferritin 2762.0 ng/mL (13.0-400.0) H 09/07/18 10:38 Total Bilirubin 0.20 mg/dL (0.1-1.2) 10/02/18 06:00 Direct Bilirubin < 0.2 mg/dL (0-0.2) 09/28/18 06:03 Indirect Bilirubin 0.1 mg/dL 09/28/18 06:03 AST 189 units/L (5-40) H 10/02/18 06:00 ALT 105 units/L (7-56) H 10/02/18 06:00 Alkaline Phosphatase 230 units/L (35-129) H 10/02/18 06:00 Ammonia 51.0 umol/L (25-60) 09/12/18 12:28 Total Creatine Kinase 101 units/L (55-170) 09/04/18 21:00 Troponin T < 0.010 ng/mL (0.00-0.029) 09/10/18 12:14 C-Reactive Protein 0.30 mg/dL (0.00-1.30) 09/27/18 15:56 Total Protein 7.1 g/dL (6.3-8.2) 10/02/18 06:00 Albumin 3.2 g/dL (3.9-5) L 10/02/18 06:00 Albumin/Globulin Ratio 0.8 % 10/02/18 06:00 Serotonin Release Assay See scanned results 09/24/18 10:14 Vitamin B12 1010 pg/mL (211-911) H 09/26/18 07:54 Folate 7.69 ng/mL (7.3-26.0) 09/26/18 07:54 TSH 0.960 mlU/mL (0.270-4.200) 09/04/18 21:00 Urine Color Yellow (Yellow) 09/04/18 23:30 Urine Turbidity Clear (Clear) 09/04/18 23:30 Urine pH 6.0 (5.0-7.0) 09/04/18 23:[address] 1.012 (1.003-1.030) 09/04/18 23:30 Urine Protein <15 mg/dl mg/dL (Negative) 09/04/18 23:30 Urine Glucose (UA) Neg mg/dL (Negative) 09/04/18 23:30 Urine Ketones Neg mg/dL (Negative) 09/04/18 23:30 Urine Blood Neg (Negative) 09/04/18 23:30 Urine Nitrite Neg (Negative) 09/04/18 23:30 Urine Bilirubin Neg (Negative) 09/04/18 23:30 Urine Urobilinogen < 2.0 mg/dL (<2.0) 09/04/18 23:30 Ur Leukocyte Esterase Neg (Negative) 09/04/18 23:30 Urine WBC (Auto) 1.0 /HPF (0.0-6.0) 09/04/18 23:30 Urine RBC (Auto) 2.0 /HPF (0.0-6.0) 09/04/18 23:30 Urine Bacteria (Auto) 1+ /HPF (Negative) 09/04/18 23:30 Urine Mucus Few /HPF 09/04/18 23:30 Urine Opiates Screen Presumptive negative 09/04/18 23:30 Urine Methadone Screen Presumptive negative 09/04/18 23:30 Ur Barbiturates Screen Presumptive negative 09/04/18 23:30 Ur Phencyclidine Scrn Presumptive negative 09/04/18 23:30 Ur Amphetamines Screen Presumptive negative 09/04/18 23:30 U Benzodiazepines Scrn Presumptive negative 09/04/18 23:30 Urine Cocaine Screen Presumptive negative 09/04/18 23:30 U Marijuana (THC) Screen Presumptive negative 09/04/18 23:30 Drugs of Abuse Note Disclamer 09/04/18 23:30 Plasma/Serum Alcohol < 0.01 % (0-0.07) 09/04/18 21:00 JAMEEL Screen Negative (Negative) 09/05/18 16:19 Sm ([place]) Antibody <1.0 AI (<1.0) 09/05/18 16:19 Mitochondria M2 Ab <=20.0 U (<=20.0) 09/05/18 16:19 Heparin-induced Plt Ab Negative (Negative) 09/24/18 10:14 UF Heparin High Dose 0 % Release 09/24/18 10:14 KIERAN UFH Low Dose 0.1 0 % Release 09/24/18 10:14 KIERAN UFH Low Dose 0.5 0 % Release 09/24/18 10:14 CMV DNA PCR log newspaper copy editor/mL See scanned results 09/24/18 10:24 Hepatitis A IgM Ab Non-reactive (NonReactive) 09/27/18 15:56 Hep Bs Antigen Non-reactive (Negative) 09/27/18 15:56 Hep B Core IgM Ab Non-reactive (NonReactive) 09/27/18 15:56 Hepatitis C Antibody Non-reactive (NonReactive) 09/27/18 15:56 Miscellaneous Test Flexitest 1 09/28/18 06:03 Active Medications - Current Medications Current Medications: Generic Name Dose Route Start Last Admin Trade Name Freq PRN Reason Stop Dose Admin Acetaminophen 650 mg 09/05/18 02:48 10/03/18 14:25 Tylenol PO 650 mg Q4H PRN Administration Pain MILD(1-3)/Fever >100.5/VILLAREAL Atovaquone 750 mg 09/28/18 13:00 10/04/18 12:14 Mepron PO 750 mg BID GLEN Administration Azithromycin 1,200 mg 10/04/18 12:00 10/04/18 12:15 Zithromax PO 1,200 mg QWEEK GLEN Administration Emtricitabine 200 mg 09/20/18 14:00 10/04/18 12:11 Emtriva PO 200 mg QDAY GLEN Administration Famotidine 10 mg 09/22/18 22:00 10/04/18 12:16 Pepcid PO 10 mg BID GLEN Administration Sodium Chloride 1,000 mls @ 100 mls/hr 09/16/18 08:00 10/03/18 16:46 Nacl 0.9% 1000 Ml IV 100 mls/hr DIRECT GLEN Administration Megestrol Acetate 400 mg 09/24/18 10:00 10/04/18 12:13 Megace PO 400 mg QDAY GLEN Administration Midodrine 10 mg 09/05/18 19:00 10/04/18 12:12 Proamatine PO 10 mg TID@0800,1200,1600 GLEN Administration Nystatin 500,000 unit 09/10/18 20:00 10/04/18 12:22 Nystatin PO 500,000 unit TID GLEN Administration Ondansetron HCl 4 mg 09/05/18 02:48 09/10/18 13:06 Zofran IV 4 mg Q8H PRN Administration Nausea And Vomiting Sodium Chloride 10 ml 09/05/18 10:00 10/03/18 22:19 Sodium Chloride Flush Syringe 10 Ml IV 10 ml BID GLEN Administration Sodium Chloride 10 ml 09/05/18 02:48 Sodium Chloride Flush Syringe 10 Ml IV PRN PRN LINE FLUSH Tenofovir Disoproxil Fumarate 300 mg 09/20/18 14:00 10/04/18 12:10 Viread PO 300 mg QDAY GLEN Administration Nutrition/Malnutrition Assess - Dietary Evaluation Nutrition/Malnutrition Findings: Nutrition Notes Start: 09/06/18 15:57 Freq: Status: Active Protocol: Document 09/30/18 14:55 RM (Rec: 09/30/18 14:59 RM [id number]) Nutrition Notes Initial or Follow up Reassessment Other Pertinent Diagnosis HIV/AIDS, noncompliance, oral candidiasis, Pneu, AMS Current Diet Regular + Ensure Enlive TID Labs/Tests Reviewed Pertinent Medications Reviewed Height 5 ft 3 in Weight 48.1 kg [place] Body Weight (kg) 56.36 BMI 18.8 Subjective/Other Information Pt eating breakfast at time of visit. Pt stated that he eats 50% of his meals. Also stated that he drinks the Ensure Enlive. Percent of energy/protein needs met: 100%/100% Burn Absent Trauma Absent #1 Nutrition Diagnosis Malnutrition Diagnosis Progress(for reassessment Continues documentation) Is patient on ventilator? No Is Patient Ambulatory and/or Out of Bed No REE-([facility]-confined to bed) [phone] Calculation Used for Recommendations [facility] Additional Notes Pro needs 1.2-1.5g/k-69 g /day Fluid needs 1ml/kcal Nutrition Intervention Change Diet Order: Continue current Add Supplement/Snack (indicate name/kcal Ensure Enlive TID /protein ) Provides kCal: 1,050 Provides Protein (gm) 60 Goal #1 Continue to meet at least 75% of calorie and protein needs Anticipated Discharge Needs: Regular diet Follow-Up By: 10/07/18 Additional Comments Follow for PO and ONS intakes
--- NOTE | 2018-10-05 04:50 | Hem/Onc Progress Note ---
Assessment and Plan 1. Anemia, leukopenia, thrombocytopenia. The question arises if this is HIV related, medication related, or infection related. deficiency Ix. bone marrow aspiration biopsy including culture was evaluated - but then as plt improved - this was cancelled. 2. smear evaluation. 3. Abnormal liver function test. 4. Iron is low, but ferritin is high, may be inflammatory etiology. 5. Human immunodeficiency virus. 6. The ID team following. 7. Micafungin. I had spoken with the pharmacy, based on the timing of the episodes. The patient was on IV Bactrim and then oral Bactrim, micafungin was used for a few days and stopped and restarted. 8. History of Carolann. 9. History of being treated for pneumonia. 10. Malnutrition. I will follow the patient during inpatient stay. 10/05 - plt normal path smear - schistocytes - but plt better [id number] - not available - as plt better - will observe cause of low plt unclear - as plt improved before oral bactrim could be stopped micafungin vs oral bactrim vs other causes low wbc - ANC pt hb is low - likely HIv or meds related - Patient Problems (1) Pancytopenia Current Visit: Yes Status: Acute Subjective Date of service: 10/05/18 Principal diagnosis: low wbc - anemia Interval history: feeling better Objective - Constitutional Vitals: Last Vital Signs Temp 99.2 F 10/04/18 23:26 Pulse 95 H 10/04/18 23:26 Resp 18 10/04/18 23:26 BP 103/67 10/04/18 23:26 Pulse Ox 99 10/04/18 23:26 Pain Intensity (0-10): denies any pain General appearance: no acute distress Performance status: 3-limited selfcare - EENT Eyes: EOM intact ENT: hearing intact, clear oral mucosa Lymph node exam: negative cervical - Neck Neck: normal ROM - Respiratory Respiratory effort: Positive: normal Respiratory: negative: CTA - Cardiovascular Heart Sounds: Present: S1 & S2 Extremities: No edema - Gastrointestinal General gastrointestinal: Present: soft, non-tender Rectal Exam: deferred - Genitourinary Male genitourinary: Present: deferred - Integumentary Integumentary: warm - Musculoskeletal Musculoskeletal: strength equal bilaterally - Neurologic Neurologic: moves all extremities - Labs Lab Results: Laboratory Results - last 24 hr 10/04/18 10/04/18 06:31 06:31 WBC 1.4 L* RBC 2.71 L Hgb 8.2 L Hct 25.2 L MCV 93 MCH 30 MCHC 32 RDW 20.9 H Plt Count 225 Lymph % (Auto) Not Reportable [place] % (Auto) Not Reportable Eos % (Auto) Not Reportable Baso % (Auto) Not Reportable Lymph # Not Reportable [place] # Not Reportable Eos # Not Reportable Baso # Not Reportable Seg Neutrophils # Not Reportable Sodium 146 H Potassium 3.4 L D Chloride 119.2 H Carbon Dioxide 18 L Anion Gap 12 BUN 14 Creatinine 0.8 Estimated GFR > 60 BUN/Creatinine Ratio 18 Glucose 88 Calcium 8.3 L Medications & Allergies - Medications Allergies/Adverse Reactions: Allergies No Known Allergies Allergy (Verified 07/18/18 14:08) Home Medications: Home Medications Medication Instructions Recorded Confirmed Last Taken Type Azithromycin [Zithromax TAB] 1,200 mg PO QWEEK #4 tablet 06/18/18 09/14/18 Unknown Rx Pantoprazole [Protonix TAB] 40 mg PO DAILY #30 tablet 06/19/18 09/14/18 Unknown Rx Nystas/Diphen/Xyl Visc/Mylanta 15 ml PO TID 14 Days oral.liqd 07/18/18 09/14/18 Unknown Rx [Magic Mouthwash] Nystas/Diphen/Xyl Visc/Mylanta 15 ml PO TID 30 Days #1 udc 07/23/18 09/14/18 Unknown Rx [Magic Mouthwash] Sulfamethoxazole/Trimethoprim 1 each PO QDAY 30 Days #30 tablet 07/23/1809/14 Unknown Rx [Bactrim DS TAB] Posaconazole [Noxafil] 300 mg PO BID 1 Days #6 tablet. 08/03/18 09/14/18 Unknown Rx Posaconazole [Noxafil] 300 mg PO QDAY 13 Days #39 08/03/18 09/14/18 Unknown Rx tablet. Acyclovir [Zovirax Tab] 400 mg PO Q8H 30 Days #90 tab 08/04/18 09/14/18 Unknown Rx Azithromycin [Zithromax TAB] 1,200 mg PO QDAY 30 Days #8 tablet 08/04/18 09/14/18 Unknown Rx Loperamide [Imodium] 2 mg PO Q2H PRN #30 capsule 08/04/18 09/14/18 Unknown Rx Midodrine HCl 2.5 mg PO DAILY #30 tablet 08/04/18 09/14/18 Unknown Rx Active Medications: Generic Name Dose Route Start Last Admin Trade Name Freq PRN Reason Stop Dose Admin Acetaminophen 650 mg 09/05/18 02:48 10/03/18 14:25 Tylenol PO 650 mg Q4H PRN Administration Pain MILD(1-3)/Fever >100.5/VILLAREAL Atovaquone 750 mg 09/28/18 13:00 10/04/18 21:42 Mepron PO 750 mg BID GLEN Administration Azithromycin 1,200 mg 10/04/18 12:00 10/04/18 12:15 Zithromax PO 1,200 mg QWEEK GLEN Administration Emtricitabine 200 mg 09/20/18 14:00 10/04/18 12:11 Emtriva PO 200 mg QDAY GLEN Administration Famotidine 10 mg 09/22/18 22:00 10/04/18 21:42 Pepcid PO 10 mg BID GLEN Administration Sodium Chloride 1,000 mls @ 100 mls/hr 09/16/18 08:00 10/03/18 16:46 Nacl 0.9% 1000 Ml IV 100 mls/hr DIRECT GLEN Administration Megestrol Acetate 400 mg 09/24/18 10:00 10/04/18 12:13 Megace PO 400 mg QDAY GLEN Administration Midodrine 10 mg 09/05/18 19:00 10/04/18 18:23 Proamatine PO Not Given TID@0800,1200,1600 GLEN Nystatin 500,000 unit 09/10/18 20:00 10/04/18 21:42 Nystatin PO 500,000 unit TID GLEN Administration Ondansetron HCl 4 mg 09/05/18 02:48 09/10/18 13:06 Zofran IV 4 mg Q8H PRN Administration Nausea And Vomiting Sodium Chloride 10 ml 09/05/18 10:00 10/04/18 21:43 Sodium Chloride Flush Syringe 10 Ml IV 10 ml BID GLEN Administration Sodium Chloride 10 ml 09/05/18 02:48 Sodium Chloride Flush Syringe 10 Ml IV PRN PRN LINE FLUSH Tenofovir Disoproxil Fumarate 300 mg 09/20/18 14:10/04/18 12:10 Viread PO 300 mg QDAY GLEN Administration
[2018-10-05] MEDS: NACL 0.9% 1000 ML 1,000 ML IV SCH ×2 (05:49→14:08)
[2018-10-05 06:07] LABS: Hematocrit 22.5 % (35.5-45.6); Hemoglobin 7.3 gm/dl (11.8-15.2); Mean Corpuscular HGB Conc 32 % (32-34); Mean Corpuscular Volume 92 fl (84-94); Platelet Count 236 K/mm3 (140-440); Red Blood Count 2.44 M/mm3 (3.65-5.03)
[2018-10-05 06:12] LABS: Red Cell Distribution Width 20.5 % (13.2-15.2)
[2018-10-05 06:27] LABS: Alanine Aminotransferase 74 units/L (7-56); Albumin 2.9 g/dL (3.9-5); BUN/Creatinine Ratio 23; Blood Urea Nitrogen 16 mg/dL (9-20); Calcium 8.2 mg/dL (8.4-10.2); Hemolysis Index 5
[2018-10-05 07:24] LABS: Basophils % (Manual) 0 % (0.0-1.8); Eosinophils % (Manual) 0 % (0.0-4.3); Total Cells Counted 100
[2018-10-05 07:26] LABS: Anisocytosis 1+
[2018-10-05 07:27] LABS: Ovalocytes 2+
[2018-10-05] MEDS: EMTRIVA PO SCH (11:03)
[2018-10-05] MEDS: NYSTATIN PO SCH ×4 (11:03→21:36)
[2018-10-05] MEDS: PROAMATINE PO SCH ×3 (11:04→18:56)
[2018-10-05] MEDS: VIREAD PO SCH (11:04)
[2018-10-05] MEDS: PEPCID PO SCH ×2 (11:05→21:36)
[2018-10-05] MEDS: TIVICAY PO SCH (11:06)
[2018-10-05] MEDS: SODIUM CHLORIDE FLUSH SYRINGE 10 ML IV SCH ×2 (11:07→21:37)
[2018-10-05] MEDS: MEGACE PO SCH (11:07)
[2018-10-05] MEDS: MEPRON PO SCH ×3 (11:07→21:36)
--- NOTE | 2018-10-05 11:48 | Progress Note ---
Assessment and Plan Assessment and plan: 42 yo male patient history of HIV/AIDs and anemia was admitted through emergency room with AMS on 09/04/18. Patient was just discharged from here on 08/04/2018 for sepsis, LLL, lingula pneumonia and severe oral candidiasis. Encephalopathy was attributed to acute metabolic encephalopathy from HIV encephalopathy/FTT/malnutrition, which has resolved. The patient has noted to have hypotension which is felt to be acute on chronic and not sepsis related. His effective circulatory volume is low due to his malnutrition from severe HIV/AIDS. Patient also noted to have other complications related to this including pancytopenia and oral candidiasis which has been treated. 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 + chronic maxillary and ethmoid sinusitis. MRI images showing brain atrophy, no focal lesions to suggest toxoplasma, PML, ventriculitis, F[employer] CLE[employer]ER HAND lymphoma or other space occupying lesions. Crypto Ag is negative. TTE shows no valvular vegetation, EF 30-35 %. --Pancytopenia; severe neutropenia ,platelets slightly improved, hematology following, discussed with Dr. Radford No indication for bone marrow biopsy at this point, pancytopenia due to underlying HIV AIDS -- HIV/ AIDS: Management per ID, Last admission in June CD4 count 11. Viral load high. Prognosis is poor. Agreed to go to SNF. HIV therapy started 09/20/18 with Truvada + Tivicay. Continue Bactrim DS daily. --Fungitell: negative, -CMV --Chronic hypotension: Multifactorial Fluid boluses, supportive care --Sinus bradycardia. Resolved ,Cardiology evaluated ,conservative management --Oral candidiasis: h/o resistant Carolann. improved. Continue Nystatin and s/p 10 days micafungin per ID --Severe protein calorie malnutrition related to HIV AIDS., Nutritional supplements and supportive care --Transaminitis; Abdominal ultrasound unremarkable. CT abdomen showing possible enteritis and somewhat inhomogenous liver. may be due to ischemic hepatitis, HIV/AIDS hepatopathy, GI evaluated the patient --Cardiomyopathy /probably HIV related ,TTE no valvular vegetation, EF 30-35% on anti-failure medications --Bilateral pneumonia: Chest CT shows Bilateral pneumonia with findings most prominent in the left lower lobe as described. Bronchiectatic changes in left lower lobe noted also. Scattered blebs in the left lung. Fungitell negative, so PCP quite less likely. bilateral ground glass opacities could be fluid ,given cardiomyopathy and low EF. Plan of care is reviewed with the patient his nurse and the case management --Disposition: awaiting SNF placement. Cardiology and ID recommend Hospice, but patient refuses. History Interval history: Patient seen and examined medical records reviewed Mild hypotension, received fluid bolus with mild improvement Vital signs noted Hospitalist Physical - Constitutional Vitals: Temp Pulse Resp BP Pulse Ox 98.8 F 83 20 85/53 99 10/05/18 11:33 10/05/18 11:33 10/05/18 11:33 10/05/18 11:33 10/05/18 11:33 General appearance: Present: no acute distress, cachectic, disheveled - EENT Eyes: Present: PERRL, EOM intact - Neck Neck: Present: supple, normal ROM - Respiratory Respiratory effort: normal - Cardiovascular Rhythm: regular Heart Sounds: Present: S1 & S2 - Extremities Extremities: no ischemia, No edema - Abdominal General gastrointestinal: soft, non-tender, non-distended, normal bowel sounds - Integumentary Integumentary: Present: clear, warm - Psychiatric Psychiatric: appropriate mood/affect, cooperative - Neurologic Neurologic: CNII-XII intact, moves all extremities Results - Labs CBC & Chem 7: 10/05/18 04:22 10/05/18 04:22 Labs: Laboratory Last Values WBC 1.7 K/mm3 (4.5-11.0) L* 10/05/18 04:22 RBC 2.44 M/mm3 (3.65-5.03) L 10/05/18 04:22 Hgb 7.3 gm/dl (11.8-15.2) L 10/05/18 04:22 Hct 22.5 % (35.5-45.6) L 10/05/18 04:22 MCV 92 fl (84-94) 10/05/18 04:22 MCH 30 pg (28-32) 10/05/18 04:22 MCHC 32 % (32-34) 10/05/18 04:22 RDW 20.5 % (13.2-15.2) H 10/05/18 04:22 Plt Count 236 K/mm3 (140-440) 10/05/18 04:22 Lymph % (Auto) Not Reportable 10/04/18 06:31 Carroll % (Auto) Human Service Worker 10/05/18 04:22 Eos % (Auto) Not Reportable 10/04/18 06:31 Baso % (Auto) Not Reportable 10/04/18 06:31 Lymph # Not Reportable 10/04/18 06:31 Carroll # Not Reportable 10/04/18 06:31 Eos # Not Reportable 10/04/18 06:31 Baso # Not Reportable 10/04/18 06:31 Add Manual Diff Complete 10/05/18 04:22 Total Counted 100 10/05/18 04:22 Seg Neutrophils % 87.3 % (40.0-70.0) H 09/08/18 06:39 Seg Neuts % (Manual) 71.0 % (40.0-70.0) H 10/05/18 04:22 Band Neutrophils % 2.0 % 10/05/18 04:22 Lymphocytes % (Manual) 19.0 % (13.4-35.0) 10/05/18 04:22 Reactive Lymphs % (Man) 0 % 10/05/18 04:22 Monocytes % (Manual) 8.0 % (0.0-7.3) H 10/05/18 04:22 Eosinophils % (Manual) 0 % (0.0-4.3) 10/05/18 04:22 Basophils % (Manual) 0 % (0.0-1.8) 10/05/18 04:22 Metamyelocytes % 0 % 10/05/18 04:22 Myelocytes % 0 % 10/05/18 04:22 Promyelocytes % 0 % 10/05/18 04:22 Blast Cells % 0 % 10/05/18 04:22 Nucleated RBC % Not Reportable 10/05/18 04:22 Seg Neutrophils # Not Reportable 10/04/18 06:31 Seg Neutrophils # Man 1.2 K/mm3 (1.8-7.7) L 10/05/18 04:22 Band Neutrophils # 0.0 K/mm3 10/05/18 04:22 Lymphocytes # (Manual) 0.3 K/mm3 (1.2-5.4) L 10/05/18 04:22 Abs React Lymphs (Man) 0.0 K/mm3 10/05/18 04:22 Monocytes # (Manual) 0.1 K/mm3 (0.0-0.8) 10/05/18 04:22 Eosinophils # (Manual) 0.0 K/mm3 (0.0-0.4) 10/05/18 04:22 Basophils # (Manual) 0.0 K/mm3 (0.0-0.1) 10/05/18 04:22 Metamyelocytes # 0.0 K/mm3 10/05/18 04:22 Myelocytes # 0.0 K/mm3 10/05/18 04:22 Promyelocytes # 0.0 K/mm3 10/05/18 04:22 Blast Cells # 0.0 K/mm3 10/05/18 04:22 Pathologist Review 09/24/18 00:33 WBC Morphology Not Reportable 10/05/18 04:22 Hypersegmented Neuts Not Reportable 10/05/18 04:22 Hyposegmented Neuts Not Reportable 10/05/18 04:22 Hypogranular Neuts Not Reportable 10/05/18 04:22 Smudge Cells Not Reportable 10/05/18 04:22 Toxic Granulation Not Reportable 10/05/18 04:22 Toxic Vacuolation Not Reportable 10/05/18 04:22 Dohle Bodies Not Reportable 10/05/18 04:22 Pelger-Huet Anomaly Not Reportable 10/05/18 04:22 Giovanni Rods Not Reportable 10/05/18 04:22 Platelet Estimate Appears normal 10/05/18 04:22 Clumped Platelets Not Reportable 10/05/18 04:22 Plt Clumps, EDTA Not Reportable 10/05/18 04:22 Large Platelets Not Reportable 10/05/18 04:22 Giant Platelets Not Reportable 10/05/18 04:22 Platelet Satelliting Not Reportable 10/05/18 04:22 Plt Morphology Comment Not Reportable 10/05/18 04:22 RBC Morphology Not Reportable 10/05/18 04:22 Dimorphic RBCs Not Reportable 10/05/18 04:22 Polychromasia Not Reportable 10/05/18 04:22 Hypochromasia Not Reportable 10/05/18 04:22 Poikilocytosis Not Reportable 10/05/18 04:22 Anisocytosis 1+ 10/05/18 04:22 Microcytosis Not Reportable 10/05/18 04:22 Macrocytosis Not Reportable 10/05/18 04:22 Spherocytes Not Reportable 10/05/18 04:22 Pappenheimer Bodies Not Reportable 10/05/18 04:22 Sickle Cells Not Reportable 10/05/18 04:22 Target Cells Not Reportable 10/05/18 04:22 Tear Drop Cells Not Reportable 10/05/18 04:22 Ovalocytes 2+ 10/05/18 04:22 Helmet Cells Not Reportable 10/05/18 04:22 [place] Bodies Not Reportable 10/05/18 04:22 [place] Rings Not Reportable 10/05/18 04:22 Cinthya Cells Not Reportable 10/05/18 04:22 Bite Cells Not Reportable 10/05/18 04:22 Crenated Cell Not Reportable 10/05/18 04:22 Elliptocytes 1+ 10/05/18 04:22 Acanthocytes (Spur) Not Reportable 10/05/18 04:22 Rouleaux Not Reportable 10/05/18 04:22 Hemoglobin C Crystals Not Reportable 10/05/18 04:22 Schistocytes Not Reportable 10/05/18 04:22 Malaria parasites Not Reportable 10/05/18 04:22 Carlos A Bodies Not Reportable 10/05/18 04:22 Hem Pathologist Commnt No 10/05/18 04:22 PT 12.8 Sec. (12.2-14.9) 09/27/18 10:21 INR 0.91 (0.87-1.13) 09/27/18 10:21 APTT 30.4 Sec. (24.2-36.6) 09/27/18 10:21 Heparin Anti-Xa, Unfract Negative (Negative) 09/24/18 10:14 Sodium 144 mmol/L (137-145) 10/05/18 04:22 Potassium 3.5 mmol/L (3.6-5.0) L 10/05/18 04:22 Chloride 114.2 mmol/L (98-107) H 10/05/18 04:22 Carbon Dioxide 19 mmol/L (22-30) L 10/05/18 04:22 Anion Gap 14 mmol/L 10/05/18 04:22 BUN 16 mg/dL (9-20) 10/05/18 04:22 Creatinine 0.7 mg/dL (0.8-1.5) L 10/05/18 04:22 Estimated GFR > 60 ml/min 10/05/18 04:22 BUN/Creatinine Ratio 23 % 10/05/18 04:22 Glucose 94 mg/dL (75-100) 10/05/18 04:22 POC Glucose 91 (70-105) 09/09/18 07:18 Lactic Acid 1.30 mmol/L (0.7-2.0) 09/05/18 03:50 Calcium 8.2 mg/dL (8.4-10.2) L 10/05/18 04:22 Magnesium 2.30 mg/dL (1.7-2.3) 10/01/18 07:30 Iron 26 ug/dL (49-181) L 09/07/18 10:38 TIBC 212 mcg/dL (250-450) L 09/07/18 10:38 Ferritin 2762.0 ng/mL (13.0-400.0) H 09/07/18 10:38 Total Bilirubin < 0.20 mg/dL (0.1-1.2) 10/05/18 04:22 Direct Bilirubin < 0.2 mg/dL (0-0.2) 09/28/18 06:03 Indirect Bilirubin 0.1 mg/dL 09/28/18 06:03 AST 75 units/L (5-40) H 10/05/18 04:22 ALT 74 units/L (7-56) H 10/05/18 04:22 Alkaline Phosphatase 172 units/L (35-129) H 10/05/18 04:22 Ammonia 51.0 umol/L (25-60) 09/12/18 12:28 Total Creatine Kinase 101 units/L (55-170) 09/04/18 21:00 Troponin T < 0.010 ng/mL (0.00-0.029) 09/10/18 12:14 C-Reactive Protein 0.30 mg/dL (0.00-1.30) 09/27/18 15:56 Total Protein 6.1 g/dL (6.3-8.2) L 10/05/18 04:22 Albumin 2.9 g/dL (3.9-5) L 10/05/18 04:22 Albumin/Globulin Ratio 0.9 % 10/05/18 04:22 Serotonin Release Assay See scanned results 09/24/18 10:14 Vitamin B12 1010 pg/mL (211-911) H 09/26/18 07:54 Folate 7.69 ng/mL (7.3-26.0) 09/26/18 07:54 TSH 0.960 mlU/mL (0.270-4.200) 09/04/18 21:00 Urine Color Yellow (Yellow) 09/04/18 23:30 Urine Turbidity Clear (Clear) 09/04/18 23:30 Urine pH 6.0 (5.0-7.0) 09/04/18 23:30 Ur Specific Flushing 1.012 (1.003-1.030) 09/04/18 23:30 Urine Protein <15 mg/dl mg/dL (Negative) 09/04/18 23:30 Urine Glucose (UA) Neg mg/dL (Negative) 09/04/18 23:30 Urine Ketones Neg mg/dL (Negative) 09/04/18 23:30 Urine Blood Neg (Negative) 09/04/18 23:30 Urine Nitrite Neg (Negative) 09/04/18 23:30 Urine Bilirubin Neg (Negative) 09/04/18 23:30 Urine Urobilinogen < 2.0 mg/dL (<2.0) 09/04/18 23:30 Ur Leukocyte Esterase Neg (Negative) 09/04/18 23:30 Urine WBC (Auto) 1.0 /HPF (0.0-6.0) 09/04/18 23:30 Urine RBC (Auto) 2.0 /HPF (0.0-6.0) 09/04/18 23:30 Urine Bacteria (Auto) 1+ /HPF (Negative) 09/04/18 23:30 Urine Mucus Few /HPF 09/04/18 23:30 Urine Opiates Screen Presumptive negative 09/04/18 23:30 Urine Methadone Screen Presumptive negative 09/04/18 23:30 Ur Barbiturates Screen Presumptive negative 09/04/18 23:30 Ur Phencyclidine Scrn Presumptive negative 09/04/18 23:30 Ur Amphetamines Screen Presumptive negative 09/04/18 23:30 U Benzodiazepines Scrn Presumptive negative 09/04/18 23:30 Urine Cocaine Screen Presumptive negative 09/04/18 23:30 U Marijuana (THC) Screen Presumptive negative 09/04/18 23:30 Drugs of Abuse Note Disclamer 09/04/18 23:30 Plasma/Serum Alcohol < 0.01 % (0-0.07) 09/04/18 21:00 JAMEEL Screen Negative (Negative) 09/05/18 16:19 Sm ([place]) Antibody <1.0 AI (<1.0) 09/05/18 16:19 Mitochondria M2 Ab <=20.0 U (<=20.0) 09/05/18 16:19 Heparin-induced Plt Ab Negative (Negative) 09/24/18 10:14 UF Heparin High Dose 0 % Release 09/24/18 10:14 KIERAN UFH Low Dose 0.1 0 % Release 09/24/18 10:14 KIERAN UFH Low Dose 0.5 0 % Release 09/24/18 10:14 CMV DNA PCR log photocopier technician/mL See scanned results 09/24/18 10:24 Hepatitis A IgM Ab Non-reactive (NonReactive) 09/27/18 15:56 Hep Bs Antigen Non-reactive (Negative) 09/27/18 15:56 Hep B Core IgM Ab Non-reactive (NonReactive) 09/27/18 15:56 Hepatitis C Antibody Non-reactive (NonReactive) 09/27/18 15:56 Miscellaneous Test Flexitest 1 09/28/18 06:03 Active Medications - Current Medications Current Medications: Generic Name Dose Route Start Last Admin Trade Name Freq PRN Reason Stop Dose Admin Acetaminophen 650 mg 09/05/18 02:48 10/03/18 14:25 Tylenol PO 650 mg Q4H PRN Administration Pain MILD(1-3)/Fever >100.5/VILLAREAL Atovaquone 750 mg 09/28/18 13:00 10/05/18 11:12 Mepron PO Not Given BID GLEN Azithromycin 1,200 mg 10/04/18 12:00 10/04/18 12:15 Zithromax PO 1,200 mg QWEEK GLEN Administration Emtricitabine 200 mg 09/20/18 14:00 10/05/18 11:03 Emtriva PO 200 mg QDAY GLEN Administration Famotidine 10 mg 09/22/18 22:00 10/05/18 11:05 Pepcid PO 10 mg BID GLEN Administration Sodium Chloride 1,000 mls @ 100 mls/hr 09/16/18 08:00 10/05/18 05:49 Nacl 0.9% 1000 Ml IV 100 mls/hr DIRECT GLEN Administration Megestrol Acetate 400 mg 09/24/18 10:00 10/05/18 11:07 Megace PO 400 mg QDAY GLEN Administration Midodrine 10 mg 09/05/18 19:00 10/05/18 11:05 Proamatine PO Not Given TID@0800,1200,1600 [facility] Nystatin 500,000 unit 09/10/18 20:00 10/05/18 11:10 Nystatin PO Not Given TID GLEN Ondansetron HCl 4 mg 09/05/18 02:48 09/10/18 13:06 Zofran IV 4 mg Q8H PRN Administration Nausea And Vomiting Sodium Chloride 10 ml 09/05/18 10:00 10/05/18 11:07 Sodium Chloride Flush Syringe 10 Ml IV 10 ml BID GLEN Administration Sodium Chloride 10 ml 09/05/18 02:48 Sodium Chloride Flush Syringe 10 Ml IV PRN PRN LINE FLUSH Tenofovir Disoproxil Fumarate 300 mg 09/20/18 14:00 10/05/18 11:04 Viread PO 300 mg QDAY GLEN Administration Nutrition/Malnutrition Assess - Dietary Evaluation Nutrition/Malnutrition Findings: Nutrition Notes Start: 09/06/18 15:57 Freq: Status: Active Protocol: Document 09/30/18 14:55 RM (Rec: 09/30/18 14:59 RM [email or web address]) Nutrition Notes Initial or Follow up Reassessment Other Pertinent Diagnosis HIV/AIDS, noncompliance, oral candidiasis, Pneu, AMS Current Diet Regular + Ensure Enlive TID Labs/Tests Reviewed Pertinent Medications Reviewed Height 5 ft 3 in Weight 48.1 kg Roby Body Weight (kg) 56.36 BMI 18.8 Subjective/Other Information Pt eating breakfast at time of visit. Pt stated that he eats 50% of his meals. Also stated that he drinks the Ensure Enlive. Percent of energy/protein needs met: 100%/100% Burn Absent Trauma Absent #1 Nutrition Diagnosis Malnutrition Diagnosis Progress(for reassessment Continues documentation) Is patient on ventilator? No Is Patient Ambulatory and/or Out of Bed No REE-([place]-confined to bed) [phone] Calculation Used for Recommendations Kirti Jasso Additional Notes Pro needs 1.2-1.5g/k-69 g /day Fluid needs 1ml/kcal Nutrition Intervention Change Diet Order: Continue current Add Supplement/Snack (indicate name/kcal Ensure Enlive TID /protein ) Provides kCal: 1,050 Provides Protein (gm) 60 Goal #1 Continue to meet at least 75% of calorie and protein needs Anticipated Discharge Needs: Regular diet Follow-Up By: 10/07/18 Additional Comments Follow for PO and ONS intakes
[2018-10-05] MEDS ORDERED: NACL 0.9% 250ML 250 ML IV ONE (13:00)
--- NOTE | 2018-10-05 14:39 | Progress Note ---
Assessment and Plan Patient awake and resting on room air . No acute respiratory distress. O2 saturation 93%. Patient aferbile and has leukopenia. - Patient Problems (1) Pneumonia Current Visit: Yes Status: Acute Qualifiers: Pneumonia type: due to unspecified organism Laterality: left Lung location: lower lobe of lung Qualified Code(s): J18.1 - Lobar pneumonia, u nspecified organism Plan to address problem: Patient is on zithromax. (2) AIDS Current Visit: Yes Status: Chronic Plan to address problem: Management as per infectious diseases. (3) Altered mental status Current Visit: Yes Status: Acute Plan to address problem: Management as per primary care and neurology. (4) Oral candidiasis Current Visit: Yes Status: Acute Plan to address problem: Patient getting nystatin. Subjective Date of service: 10/05/18 Principal diagnosis: low wbc - anemia Interval history: Patient awake and resting on room air . No acute respiratory distress. O2 saturation 93%. Patient aferbile and has leukopenia. Objective Vital Signs - 12hr 10/05/18 10/05/18 05:34 11:33 Temperature 98.8 F 98.8 F Pulse Rate 80 83 Respiratory 18 20 Rate Blood Pressure 94/52 85/53 O2 Sat by Pulse 98 99 Oximetry Constitutional: no acute distress, alert, other (Weak) Eyes: non-icteric ENT: oropharynx moist Neck: supple, no lymphadenopathy Effort: normal Ascultation: Bilateral: diminished breath sounds, other (Prolonged expiratory phase.) Percussion: Bilateral: not dull Cardiovascular: regular rate and rhythm Gastrointestinal: normoactive bowel sounds, soft, non-tender, non-distended Integumentary: other (poor turgor) Extremities: no cyanosis, no edema, pulses normal, no ischemia or petechiae Neurologic: non-focal exam (grossly), pupils equal and round, CN II-XII normal, other (very weak) Psychiatric: other (flat affect) CBC and BMP: 10/05/18 04:22 10/05/18 04:22 ABG, PT/INR, D-dimer: PT/INR, D-dimer PT 12.8 Sec. (12.2-14.9) 09/27/18 10:21 INR 0.91 (0.87-1.13) 09/27/18 10:21 Abnormal lab findings: Abnormal Labs 09/04/18 09/04/18 09/04/18 21:00 21:00 22:32 WBC RBC 3.23 L Hgb 9.6 L Hct 28.9 L RDW 18.8 H Plt Count Lymph % (Auto) [place] % (Auto) 12.5 H Lymph # 0.7 L Seg Neutrophils % 72.4 H Seg Neuts % (Manual) Lymphocytes % (Manual) Monocytes % (Manual) Nucleated RBC % Seg Neutrophils # Man Lymphocytes # (Manual) PT Sodium Potassium Chloride 109.9 H Carbon Dioxide 21 L BUN 31 H Creatinine Glucose Lactic Acid 2.40 H* Calcium 8.2 L Iron TIBC Ferritin AST 200 H ALT 136 H Alkaline Phosphatase 138 H Ammonia Total Protein Albumin 3.5 L Vitamin B12 09/04/18 09/05/18 09/05/18 22:32 16:19 16:19 WBC RBC Hgb Hct RDW Plt Count Lymph % (Auto) [place] % (Auto) Lymph # Seg Neutrophils % Seg Neuts % (Manual) Lymphocytes % (Manual) Monocytes % (Manual) Nucleated RBC % Seg Neutrophils # Man Lymphocytes # (Manual) PT Sodium Potassium Chloride 112.4 H Carbon Dioxide 19 L BUN Creatinine Glucose Lactic Acid Calcium 8.1 L Iron TIBC 223 L Ferritin AST 241 H ALT 138 H Alkaline Phosphatase Ammonia 64.0 H Total Protein Albumin 3.1 L Vitamin B12 09/05/18 09/06/18 09/06/18 16:19 10:40 10:40 WBC 2.4 L RBC 2.67 L Hgb 7.7 L Hct 23.7 L RDW 18.7 H Plt Count 135 L Lymph % (Auto) 10.0 L [place] % (Auto) 8.4 H Lymph # 0.2 L Seg Neutrophils % 81.1 H Seg Neuts % (Manual) Lymphocytes % (Manual) Monocytes % (Manual) Nucleated RBC % Seg Neutrophils # Man Lymphocytes # (Manual) PT Sodium Potassium Chloride 112.1 H Carbon Dioxide 19 L BUN Creatinine 0.7 L Glucose Lactic Acid Calcium 7.8 L Iron TIBC Ferritin 2880.0 H AST 263 H ALT 143 H Alkaline Phosphatase Ammonia Total Protein 6.1 L Albumin 2.8 L Vitamin B12 09/07/18 09/07/18 09/08/18 10:38 10:38 06:39 WBC RBC 2.86 L Hgb 8.3 L Hct 25.2 L RDW 18.3 H Plt Count 123 L Lymph % (Auto) 6.1 L [place] % (Auto) Lymph # 0.3 L Seg Neutrophils % 87.3 H Seg Neuts % (Manual) Lymphocytes % (Manual) Monocytes % (Manual) Nucleated RBC % Seg Neutrophils # Man Lymphocytes # (Manual) PT Sodium Potassium Chloride Carbon Dioxide BUN Creatinine Glucose Lactic Acid Calcium Iron 26 L TIBC 212 L Ferritin 2762.0 H AST ALT Alkaline Phosphatase Ammonia Total Protein Albumin Vitamin B12 09/08/18 09/08/18 09/09/18 06:39 13:43 07:03 WBC RBC Hgb Hct RDW Plt Count Lymph % (Auto) [place] % (Auto) Lymph # Seg Neutrophils % Seg Neuts % (Manual) Lymphocytes % (Manual) Monocytes % (Manual) Nucleated RBC % Seg Neutrophils # Man Lymphocytes # (Manual) PT Sodium Potassium 3.2 L 3.5 L Chloride 111.9 H 108.6 H Carbon Dioxide 13 L 15 L BUN 6 L 4 L Creatinine Glucose 118 H Lactic Acid Calcium 7.5 L 7.5 L Iron TIBC Ferritin AST 117 H 130 H ALT 87 H 86 H Alkaline Phosphatase Ammonia Total Protein 5.6 L 6.0 L Albumin 2.6 L 2.6 L Vitamin B12 09/09/18 09/10/18 09/10/18 07:31 04:26 04:26 WBC 3.5 L 2.1 L RBC 2.82 L 3.10 L Hgb 8.2 L 9.0 L Hct 24.6 L 27.1 L RDW 18.8 H 18.6 H Plt Count 136 L 139 L Lymph % (Auto) [place] % (Auto) Lymph # Seg Neutrophils % Seg Neuts % (Manual) 77.0 H Lymphocytes % (Manual) 11.0 L Monocytes % (Manual) 11.0 H Nucleated RBC % Seg Neutrophils # Man 1.6 L Lymphocytes # (Manual) 0.2 L PT Sodium Potassium Chloride 112.7 H Carbon Dioxide 14 L BUN 5 L Creatinine Glucose 109 H Lactic Acid Calcium 7.7 L Iron TIBC Ferritin AST 110 H ALT 76 H Alkaline Phosphatase Ammonia Total Protein 6.0 L Albumin 2.8 L Vitamin B12 09/11/18 09/12/18 09/13/18 05:22 12:28 07:23 WBC 1.1 L* RBC 2.82 L Hgb 8.2 L Hct 25.5 L RDW 19.5 H Plt Count 103 L Lymph % (Auto) [place] % (Auto) Lymph # Seg Neutrophils % Seg Neuts % (Manual) Lymphocytes % (Manual) Monocytes % (Manual) 18.0 H Nucleated RBC % Seg Neutrophils # Man 0.6 L Lymphocytes # (Manual) 0.3 L PT 15.1 H Sodium 133 L Potassium 3.5 L Chloride 108.8 H Carbon Dioxide 14 L BUN 6 L Creatinine Glucose 123 H Lactic Acid Calcium 7.4 L Iron TIBC Ferritin AST 126 H ALT 77 H Alkaline Phosphatase Ammonia Total Protein 5.7 L Albumin 2.6 L Vitamin B12 09/15/18 09/15/18 09/17/18 00:51 04:31 10:52 WBC 1.2 L* 1.2 L* RBC 3.38 L 3.03 L Hgb 9.7 L 8.9 L Hct 29.5 L 27.2 L RDW 19.0 H 19.5 H Plt Count 95 L 59 L Lymph % (Auto) [place] % (Auto) Lymph # Seg Neutrophils % Seg Neuts % (Manual) Lymphocytes % (Manual) Monocytes % (Manual) 24.0 H 14.0 H Nucleated RBC % 2.0 H Seg Neutrophils # Man 0.6 L 0.8 L Lymphocytes # (Manual) 0.3 L 0.2 L PT Sodium Potassium Chloride 112.0 H Carbon Dioxide 13 L BUN Creatinine Glucose 65 L Lactic Acid Calcium Iron TIBC Ferritin AST ALT Alkaline Phosphatase Ammonia Total Protein Albumin Vitamin B12 09/21/18 09/24/18 09/26/18 15:26 00:33 07:54 WBC 1.6 L* 0.7 L* RBC 2.94 L 2.67 L Hgb 8.8 L 7.8 L Hct 26.3 L 23.8 L RDW 20.0 H 20.3 H Plt Count 26 L 28 L Lymph % (Auto) [place] % (Auto) Lymph # Seg Neutrophils % Seg Neuts % (Manual) Lymphocytes % (Manual) Monocytes % (Manual) 12.0 H 10.0 H Nucleated RBC % Seg Neutrophils # Man 1.0 L 0.4 L Lymphocytes # (Manual) 0.4 L 0.1 L PT Sodium Potassium Chloride Carbon Dioxide BUN Creatinine Glucose Lactic Acid Calcium Iron TIBC Ferritin AST ALT Alkaline Phosphatase Ammonia Total Protein Albumin Vitamin B12 1010 H 09/26/18 09/26/18 09/27/18 14:59 14:59 06:28 WBC 2.0 L 2.0 L RBC 2.85 L 2.88 L Hgb 8.3 L 8.4 L Hct 25.6 L 25.5 L RDW 20.2 H 19.4 H Plt Count 83 L D 84 L Lymph % (Auto) [place] % (Auto) Lymph # Seg Neutrophils % Seg Neuts % (Manual) 72.0 H Lymphocytes % (Manual) 11.0 L Monocytes % (Manual) 19.0 H 10.0 H Nucleated RBC % Seg Neutrophils # Man 1.3 L 1.4 L Lymphocytes # (Manual) 0.2 L 0.3 L PT Sodium Potassium Chloride 108.0 H Carbon Dioxide BUN Creatinine Glucose 102 H Lactic Acid Calcium Iron TIBC Ferritin AST 364 H ALT 128 H Alkaline Phosphatase 311 H Ammonia Total Protein Albumin 3.1 L Vitamin B12 09/27/18 09/28/18 09/28/18 06:28 06:03 06:03 WBC 2.1 L RBC 2.74 L Hgb 8.1 L Hct 24.6 L RDW 20.3 H Plt Count 117 L Lymph % (Auto) [place] % (Auto) Lymph # Seg Neutrophils % Seg Neuts % (Manual) 78.0 H Lymphocytes % (Manual) Monocytes % (Manual) 8.0 H Nucleated RBC % Seg Neutrophils # Man 1.6 L Lymphocytes # (Manual) 0.3 L PT Sodium Potassium Chloride 110.5 H 108.4 H Carbon Dioxide BUN 23 H 27 H Creatinine Glucose Lactic Acid Calcium Iron TIBC Ferritin AST ALT Alkaline Phosphatase Ammonia Total Protein Albumin Vitamin B12 09/28/18 09/29/18 09/29/18 06:03 07:04 07:04 WBC 1.5 L* RBC 2.90 L Hgb 8.6 L Hct 26.6 L RDW 20.4 H Plt Count 132 L Lymph % (Auto) [place] % (Auto) Lymph # Seg Neutrophils % Seg Neuts % (Manual) Lymphocytes % (Manual) Monocytes % (Manual) 16.0 H Nucleated RBC % 3.0 H Seg Neutrophils # Man 0.8 L Lymphocytes # (Manual) 0.4 L PT Sodium Potassium Chloride Carbon Dioxide BUN 26 H Creatinine Glucose Lactic Acid Calcium Iron TIBC Ferritin AST 380 H 304 H ALT 138 H 130 H Alkaline Phosphatase 317 H 306 H Ammonia Total Protein Albumin 3.4 L 3.5 L Vitamin B12 10/01/18 10/01/18 10/01/18 00:10 07:30 07:30 WBC 2.1 L 1.4 L* RBC 2.93 L 3.02 L Hgb 8.9 L 9.0 L Hct 27.0 L 27.8 L RDW 20.3 H 20.6 H Plt Count Lymph % (Auto) [place] % (Auto) Lymph # Seg Neutrophils % Seg Neuts % (Manual) Lymphocytes % (Manual) Monocytes % (Manual) 15.0 H 18.0 H Nucleated RBC % 1.0 H Seg Neutrophils # Man 1.3 L 0.7 L Lymphocytes # (Manual) 0.4 L 0.5 L PT Sodium Potassium Chloride 110.0 H Carbon Dioxide BUN 31 H Creatinine Glucose Lactic Acid Calcium Iron TIBC Ferritin AST ALT Alkaline Phosphatase Ammonia Total Protein Albumin Vitamin B12 10/02/18 10/02/18 10/03/18 06:00 06:00 05:58 WBC 1.3 L* 1.7 L* RBC 2.85 L 2.87 L Hgb 8.6 L 8.5 L Hct 26.6 L 26.5 L RDW 20.3 H 21.3 H Plt Count Lymph % (Auto) [place] % (Auto) Lymph # Seg Neutrophils % Seg Neuts % (Manual) 74.0 H Lymphocytes % (Manual) Monocytes % (Manual) 11.0 H 8.0 H Nucleated RBC % Seg Neutrophils # Man 0.8 L 1.3 L Lymphocytes # (Manual) 0.3 L 0.2 L PT Sodium Potassium Chloride 110.8 H Carbon Dioxide BUN Creatinine Glucose Lactic Acid Calcium Iron TIBC Ferritin AST 189 H ALT 105 H Alkaline Phosphatase 230 H Ammonia Total Protein Albumin 3.2 L Vitamin B12 10/04/18 10/04/18 10/05/18 06:31 06:31 04:22 WBC 1.4 L* 1.7 L* RBC 2.71 L 2.44 L Hgb 8.2 L 7.3 L Hct 25.2 L 22.5 L RDW 20.9 H 20.5 H Plt Count Lymph % (Auto) [place] % (Auto) Lymph # Seg Neutrophils % Seg Neuts % (Manual) 71.0 H Lymphocytes % (Manual) Monocytes % (Manual) 8.0 H Nucleated RBC % Seg Neutrophils # Man 1.2 L Lymphocytes # (Manual) 0.3 L PT Sodium 146 H Potassium 3.4 L D Chloride 119.2 H Carbon Dioxide 18 L BUN Creatinine Glucose Lactic Acid Calcium 8.3 L Iron TIBC Ferritin AST ALT Alkaline Phosphatase Ammonia Total Protein Albumin Vitamin B12 10/05/18 04:22 WBC RBC Hgb Hct RDW Plt Count Lymph % (Auto) [place] % (Auto) Lymph # Seg Neutrophils % Seg Neuts % (Manual) Lymphocytes % (Manual) Monocytes % (Manual) Nucleated RBC % Seg Neutrophils # Man Lymphocytes # (Manual) PT Sodium Potassium 3.5 L Chloride 114.2 H Carbon Dioxide 19 L BUN Creatinine 0.7 L Glucose Lactic Acid Calcium 8.2 L Iron TIBC Ferritin AST 75 H ALT 74 H Alkaline Phosphatase 172 H Ammonia Total Protein 6.1 L Albumin 2.9 L Vitamin B12 Allied health notes reviewed: nursing
[2018-10-05] MEDS: TYLENOL PO PRN (15:32)
[2018-10-06] MEDS: NACL 0.9% 1000 ML 1,000 ML IV SCH (02:48)
[2018-10-06 06:47] LABS: Basophils % (Auto) 0.2 % (0.0-1.8); Hematocrit 23.3 % (35.5-45.6); Hemoglobin 7.7 gm/dl (11.8-15.2); Lymphocytes # (Auto) 0.4 K/mm3 (1.2-5.4); Lymphocytes % (Auto) 14.4 % (13.4-35.0); Mean Corpuscular HGB Conc 33 % (32-34); Mean Corpuscular Volume 93 fl (84-94); Monocytes # (Auto) 0.3 K/mm3 (0.0-0.8); Monocytes % (Auto) 10.2 % (0.0-7.3); Platelet Count 251 K/mm3 (140-440); Red Blood Count 2.51 M/mm3 (3.65-5.03)
[2018-10-06 06:48] LABS: Red Cell Distribution Width 20.8 % (13.2-15.2)
[2018-10-06 07:07] LABS: Alanine Aminotransferase 57 units/L (7-56); Albumin 2.7 g/dL (3.9-5); BUN/Creatinine Ratio 17; Blood Urea Nitrogen 12 mg/dL (9-20); Calcium 7.9 mg/dL (8.4-10.2); Hemolysis Index 10
--- NOTE | 2018-10-06 09:23 | Hem/Onc Progress Note ---
Assessment and Plan 1. Anemia, leukopenia, thrombocytopenia. The question arises if this is HIV related, medication related, or infection related. deficiency Ix. bone marrow aspiration biopsy including culture was evaluated - but then as plt improved - this was cancelled. 2. smear evaluation. 3. Abnormal liver function test. 4. Iron is low, but ferritin is high, may be inflammatory etiology. 5. Human immunodeficiency virus. 6. The ID team following. 7. Micafungin. I had spoken with the pharmacy, based on the timing of the episodes. The patient was on IV Bactrim and then oral Bactrim, micafungin was used for a few days and stopped and restarted. 8. History of Carolann. 9. History of being treated for pneumonia. 10. Malnutrition. I will follow the patient during inpatient stay. 10/06 - plt normal low wbc - ANC pt hb is low - likely HIv or meds related OP follow up an option - Patient Problems (1) Pancytopenia Status: Acute Subjective Date of service: 10/06/18 Principal diagnosis: low wbc Interval history: better - eating more Objective - Constitutional Vitals: Last Vital Signs Temp 97.9 F 10/06/18 05:55 Pulse 79 10/06/18 05:55 Resp 16 10/06/18 05:55 BP 105/54 10/06/18 05:55 Pulse Ox 98 10/06/18 05:55 Pain Intensity (0-10): denies any pain General appearance: no acute distress Performance status: 3-limited selfcare - EENT Eyes: EOM intact ENT: hearing intact Lymph node exam: negative cervical - Neck Neck: normal ROM - Respiratory Respiratory effort: Positive: normal Respiratory: bilateral: CTA - Cardiovascular Heart Sounds: Present: S1 & S2 Extremities: No edema - Gastrointestinal General gastrointestinal: Present: soft, non-tender Rectal Exam: deferred - Genitourinary Male genitourinary: Present: deferred - Integumentary Integumentary: warm - Musculoskeletal Musculoskeletal: generalized weakness - Labs Lab Results: Laboratory Results - last 24 hr 10/06/18 10/06/18 06:23 06:23 WBC 2.7 L RBC 2.51 L Hgb 7.7 L Hct 23.3 L MCV 93 MCH 31 MCHC 33 RDW 20.8 H Plt Count 251 Lymph % (Auto) 14.4 [place] % (Auto) 10.2 H Eos % (Auto) 0.0 Baso % (Auto) 0.2 Lymph # 0.4 L [place] # 0.3 Eos # 0.0 Baso # 0.0 Seg Neutrophils % 75.2 H Seg Neutrophils # 2.0 Sodium 144 Potassium 3.4 L Chloride 116.4 H Carbon Dioxide 19 L Anion Gap 12 BUN 12 Creatinine 0.7 L Estimated GFR > 60 BUN/Creatinine Ratio 17 Glucose 95 Calcium 7.9 L Total Bilirubin < 0.20 AST 55 H ALT 57 H Alkaline Phosphatase 161 H Total Protein 6.0 L Albumin 2.7 L Albumin/Globulin Ratio 0.8 Medications & Allergies - Medications Allergies/Adverse Reactions: Allergies No Known Allergies Allergy (Verified 07/18/18 14:08) Home Medications: Home Medications Medication Instructions Recorded Confirmed Last Taken Type Azithromycin [Zithromax TAB] 1,200 mg PO QWEEK #4 tablet 06/18/18 09/14/18 Unknown Rx Pantoprazole [Protonix TAB] 40 mg PO DAILY #30 tablet 06/19/18 09/14/18 Unknown Rx Nystas/Diphen/Xyl Visc/Mylanta 15 ml PO TID 14 Days oral.liqd 07/18/18 09/14/18 Unknown Rx [Magic Mouthwash] Nystas/Diphen/Xyl Visc/Mylanta 15 ml PO TID 30 Days #1 udc 07/23/18 09/14/18 Unknown Rx [Magic Mouthwash] Sulfamethoxazole/Trimethoprim 1 each PO QDAY 30 Days #30 tablet 07/23/18 09/14/18 Unknown Rx [Bactrim DS TAB] Posaconazole [Noxafil] 300 mg PO BID 1 Days #6 tablet. 08/03/18 09/14/18 Unknown Rx Posaconazole [Noxafil] 300 mg PO QDAY 13 Days #39 08/03/18 09/14/18 Unknown Rx tablet. Acyclovir [Zovirax Tab] 400 mg PO Q8H 30 Days #90 tab 08/04/18 09/14/18 Unknown Rx Azithromycin [Zithromax TAB] 1,200 mg PO QDAY 30 Days #8 tablet 08/04/18 09/14/18 Unknown Rx Loperamide [Imodium] 2 mg PO Q2H PRN #30 capsule 08/04/18 09/14/18 Unknown Rx Midodrine HCl 2.5 mg PO DAILY #30 tablet 08/04/18 09/14/18 Unknown Rx Atovaquone [Mepron] 750 mg PO BID 30 Days #60 ml 10/05/18 Unknown Rx Azithromycin [Zithromax TAB] 1,200 mg PO QWEEK 30 Days #8 tablet 10/05/18 Unknown Rx Dolutegravir [Tivicay] 50 mg PO DAILY 30 Days #30 tablet 10/05/18 Unknown Rx Emtricitabine/Tenofovir (Tdf) 2 each PO QDAY 30 Days #60 tablet 10/05/18 U nknown Rx [Truvada 100 mg-150 mg Tablet] Nystatin [Nystatin SUSP] 10 ml PO BID 30 Days #1 ml 10/05/18 Unknown Rx Active Medications: Generic Name Dose Route Start Last Admin Trade Name Freq PRN Reason Stop Dose Admin Acetaminophen 650 mg 09/05/18 02:48 10/05/18 15:32 Tylenol PO 650 mg Q4H PRN Administration Pain MILD(1-3)/Fever >100.5/VILLAREAL Atovaquone 750 mg 09/28/18 13:00 10/05/18 21:36 Mepron PO 750 mg BID GLEN Administration Azithromycin 1,200 mg 10/04/18 12:00 10/04/18 12:15 Zithromax PO 1,200 mg QWEEK GLEN Administration Emtricitabine 200 mg 09/20/18 14:00 10/05/18 11:03 Emtriva PO 200 mg QDAY GLEN Administration Famotidine 10 mg 09/22/18 22:00 10/05/18 21:36 Pepcid PO 10 mg BID GLEN Administration Sodium Chloride 1,000 mls @ 100 mls/hr 09/16/18 08:00 10/06/18 02:48 Nacl 0.9% 1000 Ml IV 100 mls/hr DIRECT GLEN Administration Megestrol Acetate 400 mg 09/24/18 10:00 10/05/18 11:07 Megace PO 400 mg QDAY GLEN Administration Midodrine 10 mg 09/05/18 19:00 10/05/18 18:56 Proamatine PO 10 mg TID@0800,1200,1600 GLEN Administration Nystatin 500,000 unit 09/10/18 20:00 10/05/18 21:36 Nystatin PO 500,000 unit TID GLEN Administration Ondansetron HCl 4 mg 09/05/18 02:48 09/10/18 13:06 Zofran IV 4 mg Q8H PRN Administration Nausea And Vomiting Sodium Chloride 10 ml 09/05/18 10:00 10/05/18 21:37 Sodium Chloride Flush Syringe 10 Ml IV 10 ml BID GLEN Administration Sodium Chloride 10 ml 09/05/18 02:48 Sodium Chloride Flush Syringe 10 Ml IV PRN PRN LINE FLUSH Tenofovir Disoproxil Fumarate 300 mg 09/20/18 14:00 10/05/18 11:04 Viread PO 300 mg QDAY GLEN Administration
[2018-10-06] MEDS: NYSTATIN PO SCH ×3 (09:35→16:50)
[2018-10-06] MEDS: PROAMATINE PO SCH ×3 (09:35→16:50)
[2018-10-06] MEDS: PEPCID PO SCH (09:36)
[2018-10-06] MEDS: VIREAD PO SCH (09:36)
[2018-10-06] MEDS: EMTRIVA PO SCH (09:36)
[2018-10-06] MEDS: MEGACE PO SCH ×2 (09:37→09:48)
[2018-10-06] MEDS: TIVICAY PO SCH (09:37)
[2018-10-06] MEDS: MEPRON PO SCH (09:37)
[2018-10-06] MEDS: SODIUM CHLORIDE FLUSH SYRINGE 10 ML IV SCH (09:38)
[2018-10-06 12:25] VITALS: BP 104/65
--- NOTE | 2018-10-06 12:29 | Discharge Summary ---
Providers - Providers Date of Admission: 09/05/18 02:48 Date of discharge: 10/06/18 Attending physician: YADIRA DUNBAR 09/05/18 04:28 Consult to Physician [CONS] Routine Comment: Consulting Provider: KAMLA HICKS Physician Instructions: Reason For Exam: HIV/AIDS 09/05/18 04:41 Consult to Dietitian/Nutrition [CONS] Routine Physician Instructions: Reason For Exam: Reason for Consult: Malnutrition 09/05/18 11:53 Consult to Physician [CONS] Routine Comment: Consulting Provider: SIMEON PEREZ Physician Instructions: Reason For Exam: Worsening AST/ALT, oral mehnaz, elevated NH4 09/07/18 13:35 Consult to Physician [CONS] Routine Comment: Consulting Provider: HAILEY MARTINEZ Physician Instructions: Reason For Exam: HIV/AIDS 09/09/18 08:43 Consult to Physician [CONS] Routine Comment: Consulting Provider: ELA ARZOLA Physician Instructions: Reason For Exam: critical care management 09/09/18 08:58 Consult to PICC Line RN [CONS] Stat Reason For Exam: need levophed Type Line:: PICC 09/15/18 17:52 Consult to Mental Health [CONS] Urgent Reason For Exam: psych Place consult to:: care partner rn radiation Notified:: awaiting call back Comment:: fax to [phone] 09/22/18 12:37 Physical Therapy Evaluation and Treat [CONS] Routine Comment: Reason For Exam: generalized weakness 09/24/18 12:35 Consult to Physician [CONS] Routine Comment: Consulting Provider: HUSAM VALLADARES Physician Instructions: Reason For Exam: pancytopenia 10/01/18 14:32 Consult to Case Management [CONS] Stat Services Needed at Discharge: Other Notified:: rn radiation Additional Physician Instructions: ok to d/c with ID clinic in [address] Hicks, please send him on Truvada (200mg/300mg) 1 tab q day + Tivicay 50 mg PO qday (1 month 1 refill), nystatin SS BID, mepron 750 mg PO BID (1 month 1 refill) and azithromyicn 1200 mg PO qweek. Primary care physician: CREW LEAD Hospitalization Condition: Fair Hospital course: Patient is a 42 yo man with a history of HIV/AIDs and anemia who presented to [facility] ED with AMS on 3/30/19. Patient was just discharged from here on 08/04/2018 for sepsis, LLL, lingula pneumonia and severe oral candidiasis * CT chest wo contrast IMPRESSION: Bilateral pneumonia with findings most prominent in the left lower lobe as described. Bronchiectatic changes in left lower lobe noted also. Scattered blebs in the left lung.. * GB Ultrasound IMPRESSION: The gallbladder lumen is contracted. The common bile duct is normal measuring 2 mm. * CT head without contrast Impression: No acute intracranial abnormality, chronic maxillary and ethmoid sinusitis -Hypotension, acute on chronic, bp has been low since Jun 2018 (as far as our records go), so I don't believe the chronic hypotension is sepsis related, his effective circulatory volume is low due to his malnutrition from severe HIV/AIDs which causing the pancytopenia, severe malnutrition, oral thrush, etc... and Cardiomyopathy: Cardiology and ID recommends Hospice, but patient refuses. Continue present management -AMS due to acute metabolic encephalopathy from HIV encephalopathy/FTT/malnutrition, -HIV/AIDs with pancytopenia/bone marrow failure most likely: -Transaminitis -AOCD: -Severe Malnutrition: -Acute Renal Failure, vasomotor nephropathy, poa, -Oral Candidiasis, treated, tolerating a diet, will monitor, GI evaluated, input noted -Non-adherence to medical therapy: counseling done -Lactic acidosis, -Metabolic acidosis: -Hyperammonemia-Lactulose ordered but patient refuses Disposition: [facility] Disposition: [id number] ANOTHER TYPE [facility] Time spent for discharge: 35 minutes Core Measure Documentation - Palliative Care Palliative Care/ Comfort Measures: Not Applicable - Core Measures Any of the following diagnoses?: none - VTE Discharge Requirements Deep Vein Thrombosis/Pulmonary Embolism Present on Admission: No Has pt received <5 days of overlap therapy or INR<2.0: No Anticoagulant overlap therapy prescribed at discharge: No Contraindication No Overlap Therapy order at DC: Not Indicated Exam - Physical Exam Narrative exam: Gen: cachetic, unkempt, NAD, Awake, Alert, Orientated x 3 HEENT: NCAT, EOMI, PERRL, OP dry and crusty, whitish Neck: supple, no adenopathy, no thyromegaly, no JVD CVS/Heart: RRR, normal S1S2, pulses present bilaterally Chest/Lungs: CTA B, Symmetrical chest expansion, good air entry bilaterally GI/Abdomen: soft, NTND, good bowel sounds, no guarding or rebound /Bladder: no suprapubic tenderness, no CVA or paraspinal tenderness Extermity/Skin: no c/c/e, no obvious rash MSK: FROM x 4 Neuro: CN 2-12 grossly intact, no new focal deficits Psych: calm - Constitutional Vitals: Temp Pulse Resp BP Pulse Ox 98.3 F 79 16 104/65 99 10/06/18 12:23 10/06/18 12:23 10/06/18 12:23 10/06/18 12:23 10/06/18 12:23 Plan Activity: other (no strenous activity) Diet: regular Additional Instructions: Recommend Hospice at home Follow up with: PRIMARY CARE, [Primary Care Provider] - 3-5 Days Prescriptions: Atovaquone [Mepron] 750 mg PO BID 30 Days #60 ml Nystatin [Nystatin SUSP] 10 ml PO BID 30 Days #1 ml Dolutegravir [Tivicay] 50 mg PO DAILY 30 Days #30 tablet Emtricitabine/Tenofovir (Tdf) [Truvada 100 mg-150 mg Tablet] 2 each PO QDAY 30 Days #60 tablet Azithromycin [Zithromax TAB] 1,200 mg PO QWEEK 30 Days #8 tablet
== END 2018-10-06 17:20 | disposition home or self-care (01) | DRG 974 ==
LOC: ED 19:05 → 3A 09-05 02:48 → CC1 09-09 08:25 → 4A 09-10 19:42 → 3A 09-20 13:42 → 4A 09-24 01:32 → 3A 09-29 13:28
PROVIDERS: ADMIT Internal Medicine; ATTEND Internal Medicine
DX: B20 Human immunodeficiency virus [HIV] disease (principal); G93.41 Metabolic encephalopathy; E43 Unspecified severe protein-calorie malnutrition; N17.0 Acute kidney failure with tubular necrosis; A41.9 Sepsis, unspecified organism; R65.20 Severe sepsis without septic shock; J18.1 Lobar pneumonia, unspecified organism; R62.7 Adult failure to thrive; D63.8 Anemia in other chronic diseases classified elsewhere; E72.20 Disorder of urea cycle metabolism, unspecified; B37.0 Candidal stomatitis; E86.0 Dehydration; R74.0 Nonspecific elevation of levels of transaminase and lactic acid dehydrogenase [LDH]; E87.2 Acidosis; Z68.22 Body mass index [BMI] 22.0-22.9, adult; Z79.899 Other long term (current) drug therapy; Z79.2 Long term (current) use of antibiotics; Z91.19 Patient's noncompliance with other medical treatment and regimen
CPT/HCPCS: 36415; 70450; 70553; 71045; 71250; 74160; 76705; 80048; 80053; 80074; 80076; 80307; 80320; 81001; 82140; 82550; 82607; 82728; 82747; 82962; 83520; 83550; 83735; 84443; 84484; 85007; 85025; 85027; 85610; 85730; 86022; 86038; 86140; 86235; 86403; 87040; 87086; 87103; 87177; 87497; 93005; 93010; 93306; 96360; G0378; A9577; G0480; J0461; J0692; J1450; J1650; J2248; J2405; J7030; J7040; J7042; J7050; J7060; J7070

== ENCOUNTER 2019-01-28 08:18 | Inpatient (IN) | payer MEDICAID ==
[2019-01-28] MEDS ORDERED: ATIVAN IV PRN (08:50)
--- NOTE | 2019-01-28 08:52 | Emergency Department Report ---
ED Seizure HPI - General Chief Complaint: Seizure Stated Complaint: CONVULSIONS Time Seen by Provider: 01/28/19 08:37 Source: patient, EMS Mode of arrival: Stretcher Limitations: Other - History of Present Illness Initial Comments: This is a 43-year-old male who I am told has been here before and is essentially nonverbal per staff that knows him. He is HIV positive. I am uncertain if he has a history of seizures. He had a generalized seizure prior to arrival per report. The patient is non-verbal at this point and unable to provide any historical information. He is awake however. He does not follow commands. Last admission in August 2018: Severe sepsis on background of chronic hypotension AMS due to acute metabolic encephalopathy: HIV/AIDS Panycytopenia Severe protein calorie malnutrition Transaminitis - may be due to ischemic hepatitis, HIV/AIDs hepatopathy, infectious etiology with viral hepatitis, vs drug toxicity. Anemia of chronic disease Acute Renal Failure, resolved Oral Candidiasis Non-adherence to medical therapy Hyperammonemia Metabolic acidosis - continue ART therapy for HIV status - continue megace to stimulate appetite - continue aspiration precautions - gentle volume resuscitation prn re: hypotension while continuing midodrine - complete anti-infective per ID service (on Micafungin) - continue nutritional support, discussed possibility of nutritional supplements - SCDs for VTE prophylaxis, patient declines pharmacologic prophylaxis - continue PT/OT/ increase ambulation as tolerated - Limit blood draws, in view of anemia - continue other care per attending MD Complaint: seizure - Related Data Home Medications Medication Instructions Recorded Confirmed Last Taken Darunavir/Cobicistat (Nf) 1 each PO DAILY 01/28/19 01/28/19 Unknown [Prezcobix 800 mg-150 mg (Nf)] Emtricitabine/Tenofov Alafenam 1 each PO DAILY 01/28/19 01/28/19 Unknown [Descovy 200-25 mg (Nf)] Flaxseed Oil 1,000 mg PO DAILY 01/28/19 01/28/19 Unknown Rilpivirine (Nf) [Edurant (Nf)] 25 mg PO QDAY 01/28/19 01/28/19 Unknown Voriconazole [Vfend] 200 mg PO Q12H 01/28/19 01/28/19 Unknown Previous Rx's Medication Instructions Recorded Last Taken Type Sulfamethoxazole/Trimethoprim 1 each PO QDAY 30 Days #30 tablet 07/23/18 Unknown Rx [Bactrim DS TAB] Allergies Allergy/AdvReac Type Severity Reaction Status Date / Time No Known Allergies Allergy Verified 07/18/18 14:08 ED Review of Systems ROS: Stated complaint: CONVULSIONS Other details as noted in HPI Comment: Unobtainable due to pts medical conditions ED Past Medical Hx - Past Medical History Previous Medical History?: Yes Hx Congestive Heart Failure: No Hx Diabetes: No Hx Deep Vein Thrombosis: No Hx Seizures: Yes Hx Asthma: No Hx COPD: No Hx Tuberculosis: No Hx HIV: Yes - Surgical History Past Surgical History?: No Hx Pacemaker: No Hx Internal Defibrillator: No - Social History Smoking Status: Unknown if ever smoked - Medications Home Medications: Home Medications Medication Instructions Recorded Confirmed Last Taken Type Sulfamethoxazole/Trimethoprim 1 each PO QDAY 30 Days #30 tablet 07/23/18 01/28/19 Unknown Rx [Bactrim DS TAB] Darunavir/Cobicistat (Nf) 1 each PO DAILY 01/28/19 01/28/19 Unknown History [Prezcobix 800 mg-150 mg (Nf)] Emtricitabine/Tenofov Alafenam 1 each PO DAILY 01/28/19 01/28/19 Unknown History [Descovy 200-25 mg (Nf)] Flaxseed Oil 1,000 mg PO DAILY 01/28/19 01/28/19 Unknown History Rilpivirine (Nf) [Edurant (Nf)] 25 mg PO QDAY 01/28/19 01/28/19 Unknown History Voriconazole [Vfend] 200 mg PO Q12H 01/28/19 01/28/19 Unknown History ED Physical Exam - General Limitations: Other General appearance: alert, in no apparent distress - Head Head exam: Present: atraumatic, normocephalic - Eye Eye exam: Present: normal appearance. Absent: scleral icterus - ENT ENT exam: Present: mucous membranes moist - Neck Neck exam: Present: normal inspection - Respiratory Respiratory exam: Present: normal lung sounds bilaterally. Absent: respiratory distress - Cardiovascular Cardiovascular Exam: Present: regular rate, normal rhythm. Absent: systolic murmur, diastolic murmur, rubs, gallop - GI/Abdominal GI/Abdominal exam: Present: soft, normal bowel sounds. Absent: distended, tenderness, guarding, rebound - Rectal Rectal exam: Present: deferred - Extremities Exam Extremities exam: Present: normal inspection - Back Exam Back exam: Present: normal inspection - Neurological Exam Neurological exam: Present: altered, CN II-XII intact (Limited as testable) - Psychiatric Psychiatric exam: Present: agitated (was agitated now not), flat affect - Skin Skin exam: Present: warm, dry, intact, normal color. Absent: rash ED Course Vital Signs 01/28/19 01/28/19 01/28/19 08:24 08:26 08:30 Temperature Pulse Rate 103 H 108 H 103 H Respiratory 12 15 15 Rate Blood Pressure O2 Sat by Pulse Oximetry 01/28/19 01/28/19 01/28/19 08:32 08:36 08:41 Temperature 98.4 F Pulse Rate 98 H 99 H 84 Respiratory 13 10 L 20 Rate Blood Pressure 124/52 124/52 O2 Sat by Pulse 94 96 98 Oximetry 01/28/19 01/28/19 01/28/19 08:45 08:51 08:56 Temperature Pulse Rate 87 108 H Respiratory 15 17 17 Rate Blood Pressure 124/52 O2 Sat by Pulse 95 94 94 Oximetry 01/28/19 01/28/19 01/28/19 09:00 09:15 09:36 Temperature Pulse Rate 93 H 100 H Respiratory 22 14 Rate Blood Pressure 128/65 128/65 125/85 O2 Sat by Pulse 97 97 98 Oximetry 01/28/19 01/28/19 01/28/19 09:45 10:00 10:15 Temperature Pulse Rate 100 H 92 H 110 H Respiratory 23 26 H 19 Rate Blood Pressure 121/79 124/82 121/79 O2 Sat by Pulse 98 99 98 Oximetry 01/28/19 01/28/19 10:30 12:05 Temperature 100.6 F H Pulse Rate 101 H Respiratory 18 Rate Blood Pressure 107/74 O2 Sat by Pulse 99 Oximetry - Reevaluation(s) Reevaluation #1: Patient remains apparently post ictal/altered. CT head showed nothing acute. He now has a heart rate of 120. I've suspecting the possibility of aspiration. We will get blood cultures and lactic acid level which will likely be elevated considering recurrent seizures. Patient is protecting his airway fine and adequately oxygenated. He will be admitted to the hospitalist service for care and evaluation. I will begin appearing antibiotics. 01/28/19 11:41 Reevaluation #2: The patient is now awake. He can tell me his name. I told him that a spinal tap was necessary. He told me he did not want to have that test. He appears to have ample mental capacity to refuse. He would have to be heavily sedated to overcome his refusal to have that test. At this juncture I do not think this would be appropriate. I discussed this with the admitting hospitalist. There are puncture was recommended in the face of low-grade fever, recurrent seizures and HIV positive patient. However, it cannot be performed at this time. 01/28/19 13:04 ED Medical Decision Making - Lab Data Result diagrams: 01/28/19 08:45 01/28/19 08:45 Laboratory Results - last 24 hr 01/28/19 01/28/19 01/28/19 08:45 08:45 08:48 WBC 4.4 L RBC 3.71 Hgb 10.9 L Hct 32.9 L MCV 89 MCH 29 MCHC 33 RDW 15.8 H Plt Count 246 PT INR APTT Sodium 141 Potassium 3.7 Chloride 106.1 Carbon Dioxide 24 Anion Gap 15 BUN 10 Creatinine 0.9 Estimated GFR > 60 BUN/Creatinine Ratio 11 Glucose 110 H POC Glucose 115 H Calcium 9.0 Magnesium Total Bilirubin Direct Bilirubin Indirect Bilirubin AST ALT Alkaline Phosphatase Ammonia Total Creatine Kinase CK-MB (CK-2) CK-MB (CK-2) Rel Index Troponin T NT-Pro-B Natriuret Pep Total Protein Albumin Albumin/Globulin Ratio 01/28/19 01/28/19 01/28/19 09:02 09:02 09:02 WBC RBC Hgb Hct MCV MCH MCHC RDW Plt Count PT 13.3 INR 1.04 APTT 26.7 Sodium Potassium Chloride Carbon Dioxide Anion Gap BUN Creatinine Estimated GFR BUN/Creatinine Ratio Glucose POC Glucose Calcium Magnesium 1.80 Total Bilirubin < 0.20 Direct Bilirubin < 0.2 Indirect Bilirubin 0.0 AST 42 H ALT 29 Alkaline Phosphatase 107 Ammonia 78.0 H Total Creatine Kinase 215 H CK-MB (CK-2) 2.9 CK-MB (CK-2) Rel Index 1.3 Troponin T < 0.010 NT-Pro-B Natriuret Pep Total Protein 8.1 Albumin 3.8 L Albumin/Globulin Ratio 0.9 01/28/19 09:08 WBC RBC Hgb Hct MCV MCH MCHC RDW Plt Count PT INR APTT Sodium Potassium Chloride Carbon Dioxide Anion Gap BUN Creatinine Estimated GFR BUN/Creatinine Ratio Glucose POC Glucose Calcium Magnesium Total Bilirubin Direct Bilirubin Indirect Bilirubin AST ALT Alkaline Phosphatase Ammonia Total Creatine Kinase CK-MB (CK-2) CK-MB (CK-2) Rel Index Troponin T NT-Pro-B Natriuret Pep 41.80 Total Protein Albumin Albumin/Globulin Ratio Critical care attestation.: If time is entered above; I have spent that time in minutes in the direct care of this critically ill patient, excluding procedure time. ED Disposition Clinical Impression: Recurrent seizures, HIV positive, SIRS (systemic inflammatory response syndrome) Disposition: 09 OP ADMIT IP TO THIS HOSP Is pt being admited?: Yes Does the pt Need Aspirin: Yes Condition: Stable Referrals: PRIMARY CARE, [Primary Care Provider] - 3-5 Days Time of Disposition: 11:42
[2019-01-28] MEDS ORDERED: KEPPRA 1,000 MG/NS 0.75% 100ML 1,000 MG/100 ML BAG IV ONE (08:53)
[2019-01-28 08:58] LABS: Hematocrit 32.9 % (35.5-45.6); Hemoglobin 10.9 gm/dl (11.8-15.2); Mean Corpuscular HGB Conc 33 % (32-34); Mean Corpuscular Volume 89 fl (84-94); Platelet Count 246 K/mm3 (140-440); Red Blood Count 3.71 M/mm3 (3.65-5.03); Red Cell Distribution Width 15.8 % (13.2-15.2)
[2019-01-28 09:17] LABS: BUN/Creatinine Ratio 11; Blood Urea Nitrogen 10 mg/dL (9-20); Hemolysis Index 9
[2019-01-28] MEDS ORDERED: ATIVAN IM ONE (09:23)
[2019-01-28] MEDS ORDERED: ATIVAN IV ONE (09:23)
[2019-01-28 09:30] LABS: INR 1.04 (0.87-1.13); Partial Thromboplastin Time 26.7 Sec. (24.2-36.6)
[2019-01-28 09:35] LABS: Creatine Kinase MB 2.9 ng/mL (0.0-4.0)
[2019-01-28 09:37] LABS: Alanine Aminotransferase 29 units/L (7-56); Albumin 3.8 g/dL (3.9-5)
[2019-01-28 09:44] LABS: Bilirubin,Direct < 0.2 mg/dL (0-0.2)
--- NOTE | 2019-01-28 09:54 | XRay Report ---
CHEST 1 VIEW INDICATION: cough. Unresponsive patient. COMPARISON: FINDINGS: Support devices: None. Heart: Within normal limits. Lungs/Pleura: No acute air space or interstitial disease. Minor linear scarring is noted at the left lung base. No pleural effusion or pneumothorax. Additional findings: None. IMPRESSION: No acute findings. Signer Name: Daren Chowdhury Jr, MD Signed: 01/28/2019 9:50 AM Workstation Name: [id number]
--- NOTE | 2019-01-28 10:02 | Cat Scan Report ---
CT HEAD WITHOUT CONTRAST HISTORY: Altered mental status, post ictal patient, seizure. HIV-positive TECHNIQUE: Axial imaging performed from the skull apex through the skull base without the use of con trast. All CT scans at this location are performed using CT dose reduction for ALARA by means of aut omated exposure control. COMPARISON: 09/04/2018 FINDINGS: Parenchyma: No acute intracranial hemorrhage or parenchymal abnormality.. Mild hypoattenuation thro ughout the white matter is noted and consistent with chronic microvascular ischemic disease. Ventricles: Within normal limits. Soft tissues: Soft tissues including the orbits appear normal. Bones: No acute osseous abnormality. Sinuses: Sinuses and mastoid air cells are clear. IMPRESSION: No acute abnormality. Mild nonspecific chronic white matter changes. Signer Name: Daren Chowdhury Jr, MD Signed: 01/28/2019 9:58 AM Workstation Name: [id number]
[2019-01-28] MEDS ORDERED: BABY ASPIRIN PO ONE (11:43)
[2019-01-28] MEDS ORDERED: NACL 0.9% 1000 ML 1,000 ML IV ONE (11:43)
[2019-01-28] MEDS ORDERED: ROCEPHIN/NS 1 GM/50 ML 1 GM/50 ML BAG IV ONE (11:43)
--- NOTE | 2019-01-28 12:58 | History and Physical Report ---
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 Pt is lethargic and unable to provide detailed history. Pt history taken from ED staff, EMS, and [facility] staff. As per staff, the patient experienced a generalized seizure today. EMS was subsequently notified ant the patient transported to [facility]. Pt seen and evaluated in ED and found to have Encephalopathy, HIV Syndrome, Severe Malnutrition, and New onset seizures. Pt admitted to medical floor. No reports of fever, chills, CP, Palpitations, NVD, Trauma, skin rash, hemoptysis, productive cough, medication noncompliance, or recent ill contacts. No further history obtainable. Prior admission on 09/05/18 reviewed. All listed medication reconciled at time of admission. MRI brain ordered and pending at time of evaluation. Past History Past Medical History: HIV/AIDS, seizures, other (Malnutrition) Past Surgical History: No surgical history, Other (reviewed) Social history: single. denies: smoking, alcohol abuse, prescription drug abuse Family history: hypertension Medications and Allergies Allergies Allergy/AdvReac Type Severity Reaction Status Date / Time No Known Allergies Allergy Verified 07/18/18 14:08 Home Medications Medication Instructions Recorded Confirmed Last Taken Type Sulfamethoxazole/Trimethoprim 1 each PO QDAY 30 Days #30 tablet 07/23/18 Unknown Rx [Bactrim DS TAB] Darunavir/Cobicistat (Nf) 1 each PO DAILY 01/28/19 01/28/19 Unknown History [Prezcobix 800 mg-150 mg (Nf)] Emtricitabine/Tenofov Alafenam 1 each PO DAILY 01/28/19 01/28/19 Unknown History [Descovy 200-25 mg (Nf)] Flaxseed Oil 1,000 mg PO DAILY 01/28/19 01/28/19 Unknown History Rilpivirine (Nf) [Edurant (Nf)] 25 mg PO QDAY 01/28/19 01/28/19 Unknown History Voriconazole [Vfend] 200 mg PO Q12H 01/28/19 01/28/19 Unknown History Active Meds: Active Medications Lorazepam (Ativan) 1 mg IV ONCE PRN PRN Reason: Agitation Review of Systems ROS unobtainable: due to mental status Exam - Constitutional Vitals: Temp Pulse Resp BP Pulse Ox 100.6 F H 101 H 18 107/74 99 01/28/19 12:05 01/28/19 10:30 01/28/19 10:30 01/28/19 10:30 01/28/19 10:30 General appearance: Present: mild distress, cachectic - EENT Eyes: Present: PERRL ENT: hearing intact, clear oral mucosa - Neck Neck: Present: supple, normal ROM - Respiratory Respiratory effort: normal Respiratory: bilateral: CTA - Cardiovascular Heart Sounds: Present: S1 & S2. Absent: rub, click - Extremities Extremities: pulses symmetrical, No edema Peripheral Pulses: within normal limits - Abdominal General gastrointestinal: Present: soft, non-tender, non-distended, normal bowel sounds Male genitourinary: Present: normal - Integumentary Integumentary: Present: warm, clammy, decreased turgor - Musculoskeletal Musculoskeletal: generalized weakness - Psychiatric Psychiatric: no appropriate mood/affect, no intact judgment & insight, no memory intact - Neurologic Neurologic: CNII-XII intact, moves all extremities, no gait normal Results - Labs CBC & Chem 7: 01/28/19 08:45 01/28/19 08:45 Labs: Abnormal lab results 01/28/19 01/28/19 01/28/19 Range/Units 08:45 08:45 08:48 WBC 4.4 L (4.5-11.0) K/mm3 Hgb 10.9 L (11.8-15.2) gm/dl Hct 32.9 L (35.5-45.6) % RDW 15.8 H (13.2-15.2) % Glucose 110 H (75-100) mg/dL POC Glucose 115 H (70-105) AST (5-40) units/L Ammonia (25-60) umol/L Total Creatine Kinase (55-170) units/L Albumin (3.9-5) g/dL 01/28/19 01/28/19 Range/Units 09:02 09:02 WBC (4.5-11.0) K/mm3 Hgb (11.8-15.2) gm/dl Hct (35.5-45.6) % RDW (13.2-15.2) % Glucose (75-100) mg/dL POC Glucose (70-105) AST 42 H (5-40) units/L Ammonia 78.0 H (25-60) umol/L Total Creatine Kinase 215 H (55-170) units/L Albumin 3.8 L (3.9-5) g/dL Assessment and Plan - Patient Problems (1) Encephalopathy Current Visit: Yes Status: Acute Plan to address problem: CT head, neuro check, seizure precautions, aspiration precautions, MR Brain, (2) Severe malnutrition Current Visit: Yes Status: Acute Plan to address problem: increased protein intake, dietary supplementation (3) HIV (human immunodeficiency virus infection) Current Visit: No Status: Chronic Qualifiers: HIV symptom status: symptomatic Qualified Code(s): B20 - Human immunodeficiency virus [HIV] disease Plan to address problem: ID team consulted, continue antiretroviral therapy, MAC prophylaxis, (4) Seizure Current Visit: Yes Status: Acute Plan to address problem: supportive care, CT Head, MR brain, supportive care, Keterryra (5) Hyperammonemia Current Visit: Yes Status: Acute Plan to address problem: repeat ammonia level, supportive care (6) DVT prophylaxis Current Visit: No Status: Acute Plan to address problem: SCD to BLE while inbed, prophylactic lovenox
[2019-01-28] MEDS ORDERED: TYLENOL PO PRN (13:01)
[2019-01-28] MEDS ORDERED: SODIUM CHLORIDE FLUSH SYRINGE 10 ML IV PRN (13:01)
[2019-01-28] MEDS ORDERED: ZOFRAN IV PRN (13:01)
[2019-01-28] MEDS ORDERED: PROVENTIL IH PRN (13:01)
[2019-01-28] MEDS ORDERED: PERCOCET 5/325 PO PRN (13:01)
[2019-01-28] MEDS ORDERED: BABY ASPIRIN ONE (14:07)
[2019-01-28] MEDS: VORICONAZOLE PO SCH (21:51)
[2019-01-28] MEDS: KEPPRA 500 MG in D5W 100 ML IV SCH (21:51)
[2019-01-28] MEDS: SODIUM CHLORIDE FLUSH SYRINGE 10 ML IV SCH (21:52)
[2019-01-29 05:37] LABS: Alanine Aminotransferase 22 units/L (7-56); Albumin 3.7 g/dL (3.9-5); BUN/Creatinine Ratio 11; Blood Urea Nitrogen 10 mg/dL (9-20); Calcium 9.2 mg/dL (8.4-10.2); Hemolysis Index 1
[2019-01-29 06:59] LABS: Basophils % (Auto) 0.4 % (0.0-1.8); Eosinophils % (Auto) 0.8 % (0.0-4.3); Hematocrit 30.5 % (35.5-45.6); Hemoglobin 10.5 gm/dl (11.8-15.2); Lymphocytes # (Auto) 0.9 K/mm3 (1.2-5.4); Lymphocytes % (Auto) 18.6 % (13.4-35.0); Mean Corpuscular HGB Conc 35 % (32-34); Mean Corpuscular Volume 87 fl (84-94); Monocytes # (Auto) 0.3 K/mm3 (0.0-0.8); Monocytes % (Auto) 7.2 % (0.0-7.3); Platelet Count 222 K/mm3 (140-440); Red Cell Distribution Width 15.3 % (13.2-15.2)
--- NOTE | 2019-01-29 09:49 | Progress Note ---
Assessment and Plan Assessment and plan: Acute encephalopathy. Resolved. Etiology likely secondary to post ictal state versus hepatic encephalopathy.. Patient appears back to his baseline. New onset seizure. Patient denies any history of seizure activity. Follow-up MRI of brain. Continue Keppra. Check EEG. Hyperammonemia. Follow-up ammonia levels. Lactulose. HIV. Continue antiretroviral therapy and PCP/MAC prophylaxis. ID consult. Severe protein calorie malnutrition. Nutritional support. History Interval history: No new seizure activity since admission. Hospitalist Physical - Constitutional Vitals: Temp Pulse Resp BP Pulse Ox 99.5 F 77 20 112/77 99 01/28/19 22:44 01/28/19 22:44 01/28/19 22:44 01/28/19 22:44 01/28/19 22:44 General appearance: Present: no acute distress, cachectic - EENT Eyes: Present: PERRL, EOM intact ENT: hearing intact, clear oral mucosa, dentition normal - Neck Neck: Present: supple, normal ROM - Respiratory Respiratory effort: normal Respiratory: bilateral: CTA - Cardiovascular Rhythm: regular Heart Sounds: Present: S1 & S2. Absent: gallop, rub - Extremities Extremities: no ischemia, No edema, Full ROM - Abdominal General gastrointestinal: soft, non-tender, non-distended, normal bowel sounds - Integumentary Integumentary: Present: clear, warm, dry - Neurologic Neurologic: CNII-XII intact, moves all extremities Results - Labs CBC & Chem 7: 01/29/19 04:44 01/29/19 04:44 Labs: Laboratory Last Values WBC 4.7 K/mm3 (4.5-11.0) 01/29/19 04:44 RBC 3.50 M/mm3 (3.65-5.03) L 01/29/19 04:44 Hgb 10.5 gm/dl (11.8-15.2) L 01/29/19 04:44 Hct 30.5 % (35.5-45.6) L 01/29/19 04:44 MCV 87 fl (84-94) 01/29/19 04:44 MCH 30 pg (28-32) 01/29/19 04:44 MCHC 35 % (32-34) H 01/29/19 04:44 RDW 15.3 % (13.2-15.2) H 01/29/19 04:44 Plt Count 222 K/mm3 (140-440) 01/29/19 04:44 Lymph % (Auto) 18.6 % (13.4-35.0) 01/29/19 04:44 Davis % (Auto) 7.2 % (0.0-7.3) 01/29/19 04:44 Eos % (Auto) 0.8 % (0.0-4.3) 01/29/19 04:44 Baso % (Auto) 0.4 % (0.0-1.8) 01/29/19 04:44 Lymph # 0.9 K/mm3 (1.2-5.4) L 01/29/19 04:44 Davis # 0.3 K/mm3 (0.0-0.8) 01/29/19 04:44 Eos # 0.0 K/mm3 (0.0-0.4) 01/29/19 04:44 Baso # 0.0 K/mm3 (0.0-0.1) 01/29/19 04:44 Seg Neutrophils % 73.0 % (40.0-70.0) H 01/29/19 04:44 Seg Neutrophils # 3.4 K/mm3 (1.8-7.7) 01/29/19 04:44 PT 13.3 Sec. (12.2-14.9) 01/28/19 09:02 INR 1.04 (0.87-1.13) 01/28/19 09:02 APTT 26.7 Sec. (24.2-36.6) 01/28/19 09:02 Sodium 142 mmol/L (137-145) 01/29/19 04:44 Potassium 3.4 mmol/L (3.6-5.0) L 01/29/19 04:44 Chloride 106.0 mmol/L (98-107) 01/29/19 04:44 Carbon Dioxide 25 mmol/L (22-30) 01/29/19 04:44 14 mmol/L 01/29/19 04:44 BUN 10 mg/dL (9-20) 01/29/19 04:44 0.9 mg/dL (0.8-1.5) 01/29/19 04:44 Estimated GFR > 60 ml/min 01/29/19 04:44 11 % 01/29/19 04:44 Glucose 82 mg/dL (75-100) 01/29/19 04:44 POC Glucose 115 (70-105) H 01/28/19 08:48 Lactic Acid 1.30 mmol/L (0.7-2.0) 01/28/19 12:15 Calcium 9.2 mg/dL (8.4-10.2) 01/29/19 04:44 Magnesium 1.80 mg/dL (1.7-2.3) 01/28/19 09:02 0.20 mg/dL (0.1-1.2) 01/29/19 04:44 < 0.2 mg/dL (0-0.2) 01/28/19 09:02 0.0 mg/dL 01/28/19 09:02 AST 26 units/L (5-40) 01/29/19 04:44 ALT 22 units/L (7-56) 01/29/19 04:44 99 units/L (35-129) 01/29/19 04:44 48.0 umol/L (25-60) 01/29/19 07:02 215 units/L (55-170) H 01/28/19 09:02 CK-MB (CK-2) 2.9 ng/mL (0.0-4.0) 01/28/19 09:02 CK-MB (CK-2) Rel Index 1.3 (0-4) 01/28/19 09:02 < 0.010 ng/mL (0.00-0.029) 01/28/19 09:02 NT-Pro-B Natriuret Pep 41.80 pg/mL (0-450) 01/28/19 09:08 7.6 g/dL (6.3-8.2) 01/29/19 04:44 3.7 g/dL (3.9-5) L 01/29/19 04:44 0.9 % 01/29/19 04:44 Active Medications - Current Medications Current Medications: Generic Name Dose Route Start Last Admin Trade Name Freq PRN Reason Stop Dose Admin Acetaminophen 650 mg 01/28/19 13:01 Tylenol PO Q4H PRN Pain MILD(1-3)/Fever >100.5/VILLAREAL Albuterol 2.5 mg 01/28/19 13:01 Proventil IH Q4HRT PRN Shortness Of Breath Levetiracetam 500 mg/ Dextrose 105 mls @ 400 mls/hr 01/28/19 22:00 01/28/19 21:51 IV 400 mls/hr Q12HR GLEN Administration Lorazepam 1 mg 01/28/19 08:50 Ativan IV ONCE PRN Agitation Miscellaneous Medication 1 each 01/29/19 10:00 Darunavir/Cobicistat (Nf) PO DAILY GLEN Miscellaneous Medication 1 each 01/29/19 10:00 Emtricitabine/Tenofov Alafenam PO DAILY GLEN Miscellaneous Medication 25 mg 01/29/19 10:00 Rilpivirine (Nf) PO QDAY GLEN Ondansetron HCl 4 mg 01/28/19 13:01 Zofran IV Q8H PRN Nausea And Vomiting Oxycodone/Acetaminophen 1 tab 01/28/19 13:01 Percocet 5/325 PO Q6H PRN Pain, Moderate (4-6) Sodium Chloride 10 ml 01/28/19 22:00 01/28/19 21:52 Sodium Chloride Flush Syringe 10 Ml IV 10 ml BID GLEN Administration Sodium Chloride 10 ml 01/28/19 13:01 Sodium Chloride Flush Syringe 10 Ml IV PRN PRN LINE FLUSH Trimethoprim/Sulfamethoxazole 1 each 01/29/19 10:00 Bactrim Ds PO QDAY GLEN Voriconazole 200 mg 01/28/19 22:00 01/28/19 21:51 Voriconazole PO 200 mg Q12HR GLEN Administration
[2019-01-29] MEDS ORDERED: FLAXSEED OIL 1000 MG PO SCH (10:00)
[2019-01-29] MEDS: VORICONAZOLE PO SCH ×2 (10:43→21:38)
[2019-01-29] MEDS: KEPPRA 500 MG in D5W 100 ML IV SCH ×2 (10:43→22:05)
[2019-01-29] MEDS: BACTRIM DS PO SCH (10:44)
[2019-01-29] MEDS: RILPIVIRINE 25 MG PO SCH (10:55)
[2019-01-29] MEDS: EMTRICITABINE PO SCH (10:56)
[2019-01-29] MEDS: TENOFOV ALAFENAM PO SCH (10:56)
[2019-01-29] MEDS: NON-FORMULARY (Darunavir/Cobicistat (Nf) 1 EACH) PO SCH (10:56)
--- NOTE | 2019-01-29 12:38 | Consultation ---
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 He has otherwise been afebrile here. Infectious diseases was consulted for additional evaluation. Currently, patient is awake, alert. He denies any complaints and is back to his baseline. He reports compliance with his medications, has been following up at the IDP clinic in [place]: His current medications include Descovy, Prezcobix, Rilpivirine for HAART and on Bactrim SS daily, Azithromycin weekly for prophylaxis. Also on PO Voriconazole + Nystatin for his resistant mehnaz / oral thrush. Tmax here was 100.6F. Review of Systems: General: no fevers,chills or rigors HEENT: no new visual disturbance Respiratory: No cough, sputum, hemoptysis or shortness of breath Cardiovascular: No chest pain, syncope Gastrointestinal: No nausea, vomiting or diarrhea Genitourinary: No dysuria or hematuria Musculoskeletal: No new or worsening neck pain or back pain Neurologic: No headaches, seizures Hematologic: No easy bruising or bleeding Endocrine: No night sweats or acute weight loss Skin: negative for rash, jaundice Psychiatric: No suicidal or homicidal ideation Past History Past Medical History: HIV/AIDS, seizures, other (Malnutrition) Past Surgical History: No surgical history, Other (reviewed) Social history: single. denies: smoking, alcohol abuse, prescription drug abuse Family history: hypertension Medications and Allergies Allergies Allergy/AdvReac Type Severity Reaction Status Date / Time No Known Allergies Allergy Verified 07/18/18 14:08 Home Medications Medication Instructions Recorded Confirmed Last Taken Type Sulfamethoxazole/Trimethoprim 1 each PO QDAY 30 Days #30 tablet 07/23/18 01/28/19 Unknown Rx [Bactrim DS TAB] Darunavir/Cobicistat (Nf) 1 each PO DAILY 01/28/19 01/28/19 Unknown History [Prezcobix 800 mg-150 mg (Nf)] Emtricitabine/Tenofov Alafenam 1 each PO DAILY 01/28/19 01/28/19 Unknown History [Descovy 200-25 mg (Nf)] Flaxseed Oil 1,000 mg PO DAILY 01/28/19 01/28/19 Unknown History Rilpivirine (Nf) [Edurant (Nf)] 25 mg PO QDAY 01/28/19 01/28/19 Unknown History Voriconazole [Vfend] 200 mg PO Q12H 01/28/19 01/28/19 Unknown History Active Meds: Active Medications Acetaminophen (Tylenol) 650 mg PO Q4H PRN PRN Reason: Pain MILD(1-3)/Fever >100.5/VILLAREAL Albuterol (Proventil) 2.5 mg IH Q4HRT PRN PRN Reason: Shortness Of Breath Levetiracetam 500 mg/ Dextrose 105 mls @ 400 mls/hr IV Q12HR [facility] Last Admin: 01/29/19 10:43 Dose: 400 mls/hr Documented by: Lorazepam (Ativan) 1 mg IV ONCE PRN PRN Reason: Agitation Miscellaneous Medication (Darunavir/Cobicistat (Nf)) 1 each PO DAILY [facility] Last Admin: 01/29/19 10:56 Dose: 1 each Documented by: Miscellaneous Medication (Emtricitabine/Tenofov Alafenam) 1 each PO DAILY [facility] Last Admin: 01/29/19 10:56 Dose: 1 each Documented by: Miscellaneous Medication (Rilpivirine (Nf)) 25 mg PO QDAY [facility] Last Admin: 01/29/19 10:55 Dose: 25 mg Documented by: Ondansetron HCl (Zofran) 4 mg IV Q8H PRN PRN Reason: Nausea And Vomiting Oxycodone/Acetaminophen (Percocet 5/325) 1 tab PO Q6H PRN PRN Reason: Pain, Moderate (4-6) Sodium Chloride (Sodium Chloride Flush Syringe 10 Ml) 10 ml IV BID [facility] Last Admin: 01/28/19 21:52 Dose: 10 ml Documented by: Sodium Chloride (Sodium Chloride Flush Syringe 10 Ml) 10 ml IV PRN PRN PRN Reason: LINE FLUSH Trimethoprim/Sulfamethoxazole (Bactrim Ds) 1 each PO QDAY [facility] Last Admin: 01/29/19 10:44 Dose: 1 each Documented by: Voriconazole (Voriconazole) 200 mg PO Q12HR [facility] Last Admin: 01/29/19 10:43 Dose: 200 mg Documented by: Physical Examination - Physical Exam Narrative exam: Physical Exam: Constitutional: Alert, cooperative. No acute distress. Cachexia + Head, Ears, Nose: Normocephalic, atraumatic. External ears, nose normal Eyes: Conjunctivae/corneas clear. No icterus. No ptosis. Neck: Supple, no meningeal signs Oral: dentition fair, no thrush Cardiovascular: S1, S2 normal. Respiratory: Good air entry, clear to auscultation bilaterally GI: Soft, non-tender; bowel sounds normal. No peritoneal signs Musculoskeletal: No pedal edema, no cyanosis. Skin: No rash or abscess Hem/Lymphatic: No palpable cervical or supraclavicular nodes. No lymphangitis Psych: Mood ok. Affect normal Neurological: Awake, alert, oriented. No gross abnormality - Constitutional Vitals: Vital Signs Temp Pulse Resp BP Pulse Ox 99.6 F 85 16 104/74 98 01/29/19 11:56 01/29/19 12:33 01/29/19 11:56 01/29/19 11:56 01/29/19 11:56 Temperature -Last 24 Hours Temperature 99.6 F Temperature 98.2 F Temperature 99.5 F Temperature 99.5 F Results - Labs CBC & Chem 7: 01/29/19 04:44 01/29/19 04:44 Labs: Abnormal lab results 01/29/19 01/29/19 Range/Units 04:44 04:44 RBC 3.50 L (3.65-5.03) M/mm3 Hgb 10.5 L (11.8-15.2) gm/dl Hct 30.5 L (35.5-45.6) % MCHC 35 H (32-34) % RDW 15.3 H (13.2-15.2) % Lymph # 0.9 L (1.2-5.4) K/mm3 Seg Neutrophils % 73.0 H (40.0-70.0) % Potassium 3.4 L (3.6-5.0) mmol/L Albumin 3.7 L (3.9-5) g/dL - Imaging and Cardiology Chest x-ray: report reviewed, image reviewed (Chest x-ray reviewed and shows no evidence of pneumonia ) CT Scan - head: report reviewed, image reviewed (CT head reviewed and shows no acute intracranial abnormality) Assessment and Plan Cultures: 01/28/2019 blood culture: In progress A/P: 43-year-old male with known HIV, AIDS, resistant oral candidiasis, non- compliance in the past, know to ID from previous admissions in 06/2018 and 07/2018, again in 09/2018 with acute encephalopathy, work up was negative, 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 Currently, he seems back to his baseline. Agree with MRI. No need for empiric antibiotics at this time. 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 Was started on Keppra. 2) HIV/AIDS: Finally compliant and on medication since September 2018. Current re gimen includes Descovy, Prezcobix, Rilpivirine, will continue. Continue OI prophylaxis with azithromycin and Bactrim. Update HIV RNA PCR and CD4 count monitor response to therapy. 3) Resistant mehnaz, refractory oral thrush: Seems to have responded well. We'll continue voriconazole and nystatin. 4) His previous pancytopenia has also resolved, suggestive of compliance with his HIV regimen. Recs: No need for abx Agree with MRI with and without contrast Continue home regiment: Descovy, Prezcobix, Rilpivirine Continue OI prophylaxis with azithromycin and Bactrim Ordered HIV RNA PCR and CD4 count Continue voriconazole and nystatin Chanel Ryder MD, FACP [facility] C: [phone] O: [phone] F: [phone]
[2019-01-29] MEDS: SODIUM CHLORIDE FLUSH SYRINGE 10 ML IV SCH ×2 (18:52→21:38)
[2019-01-30 06:05] LABS: Hematocrit 30.4 % (35.5-45.6); Hemoglobin 10.2 gm/dl (11.8-15.2); Mean Corpuscular HGB Conc 34 % (32-34); Mean Corpuscular Volume 87 fl (84-94); Platelet Count 205 K/mm3 (140-440); Red Cell Distribution Width 15.1 % (13.2-15.2)
[2019-01-30 06:09] LABS: BUN/Creatinine Ratio 12; Blood Urea Nitrogen 13 mg/dL (9-20); Calcium 9.3 mg/dL (8.4-10.2); Hemolysis Index 0
[2019-01-30 07:08] LABS: Hematocrit 30.2 % (35.5-45.6); Hemoglobin 10.2 gm/dl (11.8-15.2); Mean Corpuscular HGB Conc 34 % (32-34); Mean Corpuscular Volume 87 fl (84-94); Platelet Count 201 K/mm3 (140-440); Red Blood Count 3.46 M/mm3 (3.65-5.03); Red Cell Distribution Width 15.2 % (13.2-15.2)
[2019-01-30 07:09] LABS: Anisocytosis Few; Basophils % (Manual) 0 % (0.0-1.8); Total Cells Counted 100
[2019-01-30 07:10] LABS: Platelet Estimate Consistent w Auto
--- NOTE | 2019-01-30 09:22 | Progress Note ---
Assessment and Plan Assessment and plan: Acute encephalopathy. Resolved. Etiology likely secondary to post ictal state versus hepatic encephalopathy.. Patient appears back to his baseline. New onset seizure. Patient denies any history of seizure activity. Follow-up MRI of brain and EEG. Continue Keppra. No new seizure activity since ad mission. Consider neurology consultation. Hyperammonemia. Follow-up ammonia levels. Lactulose. Hypokalemia. Replete potassium. HIV. Continue antiretroviral therapy and PCP/MAC prophylaxis. ID following. Severe protein calorie malnutrition. Nutritional support. History Interval history: No new seizure activity since admission. Hospitalist Physical - Constitutional Vitals: Temp Pulse Resp BP Pulse Ox 99.1 F 74 18 96/63 99 01/29/19 23:23 01/29/19 23:23 01/29/19 23:23 01/29/19 23:23 01/29/19 23:23 General appearance: Present: no acute distress, cachectic - EENT Eyes: Present: PERRL, EOM intact ENT: hearing intact, clear oral mucosa, dentition normal - Neck Neck: Present: supple, normal ROM - Respiratory Respiratory effort: normal Respiratory: bilateral: CTA - Cardiovascular Rhythm: regular Heart Sounds: Present: S1 & S2. Absent: gallop, rub - Extremities Extremities: no ischemia, No edema, Full ROM - Abdominal General gastrointestinal: soft, non-tender, non-distended, normal bowel sounds - Integumentary Integumentary: Present: clear, warm, dry - Neurologic Neurologic: CNII-XII intact, moves all extremities Results - Labs CBC & Chem 7: 01/30/19 06:51 01/30/19 05:29 Labs: Laboratory Last Values WBC 1.8 K/mm3 (4.5-11.0) L* 01/30/19 06:51 RBC 3.46 M/mm3 (3.65-5.03) L 01/30/19 06:51 Hgb 10.2 gm/dl (11.8-15.2) L 01/30/19 06:51 Hct 30.2 % (35.5-45.6) L 01/30/19 06:51 MCV 87 fl (84-94) 01/30/19 06:51 MCH 30 pg (28-32) 01/30/19 06:51 MCHC 34 % (32-34) 01/30/19 06:51 RDW 15.2 % (13.2-15.2) 01/30/19 06:51 Plt Count 201 K/mm3 (140-440) 01/30/19 06:51 Lymph % (Auto) 18.6 % (13.4-35.0) 01/29/19 04:44 Falls % (Auto) 7.2 % (0.0-7.3) 01/29/19 04:44 Eos % (Auto) 0.8 % (0.0-4.3) 01/29/19 04:44 Baso % (Auto) 0.4 % (0.0-1.8) 01/29/19 04:44 Lymph # 0.9 K/mm3 (1.2-5.4) L 01/29/19 04:44 Falls # 0.3 K/mm3 (0.0-0.8) 01/29/19 04:44 Eos # 0.0 K/mm3 (0.0-0.4) 01/29/19 04:44 Baso # 0.0 K/mm3 (0.0-0.1) 01/29/19 04:44 Add Manual Diff Complete 01/30/19 05:29 Total Counted 100 01/30/19 05:29 Seg Neutrophils % 73.0 % (40.0-70.0) H 01/29/19 04:44 Seg Neuts % (Manual) 71.0 % (40.0-70.0) H 01/30/19 05:29 0 % 01/30/19 05:29 26.0 % (13.4-35.0) 01/30/19 05:29 Reactive Lymphs % (Man) 0 % 01/30/19 05:29 2.0 % (0.0-7.3) 01/30/19 05:29 1.0 % (0.0-4.3) 01/30/19 05:29 0 % (0.0-1.8) 01/30/19 05:29 0 % 01/30/19 05:29 0 % 01/30/19 05:29 0 % 01/30/19 05:29 0 % 01/30/19 05:29 Nucleated RBC % Not Reportable 01/30/19 05:29 Seg Neutrophils # 3.4 K/mm3 (1.8-7.7) 01/29/19 04:44 Seg Neutrophils # Man 1.1 K/mm3 (1.8-7.7) L 01/30/19 05:29 Band Neutrophils # 0.0 K/mm3 01/30/19 05:29 0.4 K/mm3 (1.2-5.4) L 01/30/19 05:29 Abs React Lymphs (Man) 0.0 K/mm3 01/30/19 05:29 0.0 K/mm3 (0.0-0.8) 01/30/19 05:29 0.0 K/mm3 (0.0-0.4) 01/30/19 05:29 0.0 K/mm3 (0.0-0.1) 01/30/19 05:29 0.0 K/mm3 01/30/19 05:29 0.0 K/mm3 01/30/19 05:29 0.0 K/mm3 01/30/19 05:29 Blast Cells # 0.0 K/mm3 01/30/19 05:29 WBC Morphology Not Reportable 01/30/19 05:29 Hypersegmented Neuts Not Reportable 01/30/19 05:29 Hyposegmented Neuts Not Reportable 01/30/19 05:29 Hypogranular Neuts Not Reportable 01/30/19 05:29 Not Reportable 01/30/19 05:29 Not Reportable 01/30/19 05:29 Not Reportable 01/30/19 05:29 Not Reportable 01/30/19 05:29 Not Reportable 01/30/19 05:29 Not Reportable 01/30/19 05:29 Consistent w auto 01/30/19 05:29 Not Reportable 01/30/19 05:29 Plt Clumps, EDTA Not Reportable 01/30/19 05:29 Not Reportable 01/30/19 05:29 Not Reportable 01/30/19 05:29 Not Reportable 01/30/19 05:29 Plt Morphology Comment Not Reportable 01/30/19 05:29 RBC Morphology Not Reportable 01/30/19 05:29 Dimorphic RBCs Not Reportable 01/30/19 05:29 Not Reportable 01/30/19 05:29 Not Reportable 01/30/19 05:29 Not Reportable 01/30/19 05:29 Few 01/30/19 05:29 Not Reportable 01/30/19 05:29 Not Reportable 01/30/19 05:29 Not Reportable 01/30/19 05:29 Not Reportable 01/30/19 05:29 Not Reportable 01/30/19 05:29 Not Reportable 01/30/19 05:29 Not Reportable 01/30/19 05:29 Not Reportable 01/30/19 05:29 Not Reportable 01/30/19 05:29 Not Reportable 01/30/19 05:29 Not Reportable 01/30/19 05:29 Not Reportable 01/30/19 05:29 Not Reportable 01/30/19 05:29 Not Reportable 01/30/19 05:29 Few 01/30/19 05:29 Acanthocytes (Spur) Not Reportable 01/30/19 05:29 Rouleaux Not Reportable 01/30/19 05:29 Not Reportable 01/30/19 05:29 Not Reportable 01/30/19 05:29 Not Reportable 01/30/19 05:29 Not Reportable 01/30/19 05:29 Hem Pathologist Commnt No 01/30/19 05:29 PT 13.3 Sec. (12.2-14.9) 01/28/19 09:02 INR 1.04 (0.87-1.13) 01/28/19 09:02 APTT 26.7 Sec. (24.2-36.6) 01/28/19 09:02 Sodium 141 mmol/L (137-145) 01/30/19 05:29 Potassium 3.2 mmol/L (3.6-5.0) L 01/30/19 05:29 Chloride 104.9 mmol/L (98-107) 01/30/19 05:29 Carbon Dioxide 24 mmol/L (22-30) 01/30/19 05:29 15 mmol/L 01/30/19 05:29 BUN 13 mg/dL (9-20) 01/30/19 05:29 1.1 mg/dL (0.8-1.5) 01/30/19 05:29 Estimated GFR > 60 ml/min 01/30/19 05:29 12 % 01/30/19 05:29 Glucose 80 mg/dL (75-100) 01/30/19 05:29 POC Glucose 93 (70-105) 01/29/19 21:02 Lactic Acid 1.30 mmol/L (0.7-2.0) 01/28/19 12:15 Calcium 9.3 mg/dL (8.4-10.2) 01/30/19 05:29 Magnesium 1.80 mg/dL (1.7-2.3) 01/28/19 09:02 0.20 mg/dL (0.1-1.2) 01/29/19 04:44 < 0.2 mg/dL (0-0.2) 01/28/19 09:02 0.0 mg/dL 01/28/19 09:02 AST 26 units/L (5-40) 01/29/19 04:44 ALT 22 units/L (7-56) 01/29/19 04:44 99 units/L (35-129) 01/29/19 04:44 48.0 umol/L (25-60) 01/29/19 07:02 215 units/L (55-170) H 01/28/19 09:02 CK-MB (CK-2) 2.9 ng/mL (0.0-4.0) 01/28/19 09:02 CK-MB (CK-2) Rel Index 1.3 (0-4) 01/28/19 09:02 < 0.010 ng/mL (0.00-0.029) 01/28/19 09:02 NT-Pro-B Natriuret Pep 41.80 pg/mL (0-450) 01/28/19 09:08 7.6 g/dL (6.3-8.2) 01/29/19 04:44 3.7 g/dL (3.9-5) L 01/29/19 04:44 0.9 % 01/29/19 04:44 Active Medications - Current Medications Current Medications: Generic Name Dose Route Start Last Admin Trade Name Freq PRN Reason Stop Dose Admin Acetaminophen 650 mg 01/28/19 13:01 Tylenol PO Q4H PRN Pain MILD(1-3)/Fever >100.5/VILLAREAL Albuterol 2.5 mg 01/28/19 13:01 Proventil IH Q4HRT PRN Shortness Of Breath Levetiracetam 500 mg/ Dextrose 105 mls @ 400 mls/hr 01/28/19 22:00 01/29/19 22:05 IV 400 mls/hr Q12HR [facility] Administration Lorazepam 1 mg 01/28/19 08:50 Ativan IV ONCE PRN Agitation Miscellaneous Medication 1 each 01/29/19 10:00 01/29/19 10:56 Darunavir/Cobicistat (Nf) PO 1 each DAILY [facility] Administration Miscellaneous Medication 1 each 01/29/19 10:00 01/29/19 10:56 Emtricitabine/Tenofov Alafenam PO 1 each DAILY [facility] Administration Miscellaneous Medication 25 mg 01/29/19 10:00 01/29/19 10:55 Rilpivirine (Nf) PO 25 mg QDAY [facility] Administration Ondansetron HCl 4 mg 01/28/19 13:01 Zofran IV Q8H PRN Nausea And Vomiting Oxycodone/Acetaminophen 1 tab 01/28/19 13:01 Percocet 5/325 PO Q6H PRN Pain, Moderate (4-6) Sodium Chloride 10 ml 01/28/19 22:00 01/29/19 21:38 Sodium Chloride Flush Syringe 10 Ml IV 10 ml BID [facility] Administration Sodium Chloride 10 ml 01/28/19 13:01 Sodium Chloride Flush Syringe 10 Ml IV PRN PRN LINE FLUSH Trimethoprim/Sulfamethoxazole 1 each 01/29/19 10:00 01/29/19 10:44 Bactrim Ds PO 1 each QDAY [facility] Administration Voriconazole 200 mg 01/28/19 22:00 01/29/19 21:38 Voriconazole PO 200 mg Q12HR [facility] Administration
[2019-01-30] MEDS: VORICONAZOLE PO SCH ×2 (09:49→22:02)
[2019-01-30] MEDS: KEPPRA 500 MG in D5W 100 ML IV SCH ×2 (09:49→22:53)
[2019-01-30] MEDS: NON-FORMULARY (Darunavir/Cobicistat (Nf) 1 EACH) PO SCH (09:50)
[2019-01-30] MEDS: BACTRIM DS PO SCH (09:50)
[2019-01-30] MEDS: TENOFOV ALAFENAM PO SCH (09:53)
[2019-01-30] MEDS: EMTRICITABINE PO SCH (09:53)
[2019-01-30] MEDS: RILPIVIRINE 25 MG PO SCH (10:00)
--- NOTE | 2019-01-30 12:20 | Progress Note ---
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 Currently, he seems back to his b aseline. Agree with MRI. No need for empiric antibiotics at this time. 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 Was started on Keppra. 2) HIV/AIDS: Finally compliant and on medication since September 2018. Current regimen includes Descovy, Prezcobix, Rilpivirine, will continue. Continue OI p rophylaxis with azithromycin and Bactrim. Update HIV RNA PCR and CD4 count monitor response to therapy. 3) Resistant mehnaz, refractory oral thrush: Seems to have responded well. We'll continue voriconazole and nystatin. 4) His previous pancytopenia has also resolved, suggestive of compliance with his HIV regimen. Recs: Folow-up MRI with and without contrast Continue home regiment: Descovy, Prezcobix, Rilpivirine Continue OI prophylaxis with azithromycin and Bactrim Follow-up HIV RNA PCR and CD4 count Continue voriconazole and nystatin [facility] M: [phone] O:[phone] Subjective Date of service: 01/30/19 Interval history: Patient seen and examined. Sitting up in bed eating. Able to answer simple questions and following command. No fevers. Objective - Exam Narrative Exam: Constitutional: Alert, cooperative. No acute distress. Cachexia + Head, Ears, Nose: Normocephalic, atraumatic. External ears, nose normal Eyes: Conjunctivae/corneas clear. No icterus. No ptosis. Neck: Supple, no meningeal signs Oral: dentition fair, no thrush Cardiovascular: S1, S2 normal. Respiratory: Good air entry, clear to auscultation bilaterally GI: Soft, non-tender; bowel sounds normal. No peritoneal signs Musculoskeletal: No pedal edema, no cyanosis. Skin: No rash or abscess Hem/Lymphatic: No palpable cervical or supraclavicular nodes. No lymphangitis Psych: Mood ok. Affect normal Neurological: Awake, alert, oriented. No gross abnormality - Constitutional Vitals: Vital Signs Temp Pulse Resp BP Pulse Ox 98.1 F 65 16 77/43 96 01/30/19 11:43 01/30/19 11:43 01/30/19 11:43 01/30/19 11:43 01/30/19 11:43 Temperature -Last 24 Hours Temperature 98.1 F Temperature 99.1 F Temperature 99.1 F Temperature 98.8 F - Labs CBC & Chem 7: 01/30/19 06:51 01/30/19 05:29 Labs: Abnormal lab results 01/30/19 01/30/19 01/30/19 Range/Units 05:29 05:29 06:51 WBC 1.6 L* 1.8 L* (4.5-11.0) K/mm3 RBC 3.50 L 3.46 L (3.65-5.03) M/mm3 Hgb 10.2 L 10.2 L (11.8-15.2) gm/dl Hct 30.4 L 30.2 L (35.5-45.6) % Seg Neuts % (Manual) 71.0 H (40.0-70.0) % Seg Neutrophils # Man 1.1 L (1.8-7.7) K/mm3 Lymphocytes # (Manual) 0.4 L (1.2-5.4) K/mm3 Potassium 3.2 L (3.6-5.0) mmol/L
[2019-01-30] MEDS: SODIUM CHLORIDE FLUSH SYRINGE 10 ML IV SCH ×2 (19:40→22:02)
[2019-01-31 05:35] LABS: Hematocrit 30.2 % (35.5-45.6); Hemoglobin 10.2 gm/dl (11.8-15.2); Mean Corpuscular HGB Conc 34 % (32-34); Mean Corpuscular Volume 88 fl (84-94); Platelet Count 189 K/mm3 (140-440); Red Blood Count 3.46 M/mm3 (3.65-5.03)
[2019-01-31 05:59] LABS: BUN/Creatinine Ratio 14; Blood Urea Nitrogen 15 mg/dL (9-20); Calcium 8.8 mg/dL (8.4-10.2); Hemolysis Index 0
[2019-01-31 07:45] LABS: Anisocytosis 1+; Basophils % (Manual) 0 % (0.0-1.8); Total Cells Counted 100
[2019-01-31 07:46] LABS: Ovalocytes 1+; Platelet Estimate Consistent w Auto; Smudge Cells Few
[2019-01-31] MEDS: KEPPRA 500 MG in D5W 100 ML IV SCH ×2 (09:51→22:29)
[2019-01-31] MEDS: RILPIVIRINE 25 MG PO SCH (09:53)
[2019-01-31] MEDS: BACTRIM DS PO SCH (09:53)
[2019-01-31] MEDS: VORICONAZOLE PO SCH ×2 (09:53→22:06)
[2019-01-31] MEDS: NON-FORMULARY (Darunavir/Cobicistat (Nf) 1 EACH) PO SCH (09:54)
[2019-01-31] MEDS: TENOFOV ALAFENAM PO SCH (09:55)
[2019-01-31] MEDS: EMTRICITABINE PO SCH (09:55)
[2019-01-31] MEDS: SODIUM CHLORIDE FLUSH SYRINGE 10 ML IV SCH ×2 (09:56→22:07)
--- NOTE | 2019-01-31 10:13 | Progress Note ---
Assessment and Plan Assessment and plan: Acute encephalopathy. Resolved. Etiology likely secondary to post ictal state +/- HIV encephalopathy. Patient appears back to his baseline. New onset seizure. Patient denies any history of seizure activity. Follow-up MRI of brain and EEG. Continue Keppra. No new seizure activity since admission. Neurology consultation. Hyperammonemia. Follow-up ammonia levels. Lactulose. Hypokalemia. Replete potassium. HIV. Continue antiretroviral therapy and PCP/MAC prophylaxis. ID following. Resistant mehnaz, refractory oral thrush: Seems to have responded well. We'll continue voriconazole and nystatin. Severe protein calorie malnutrition. Nutritional support. History Interval history: No new seizure activity since admission. Hospitalist Physical - Constitutional Vitals: Temp Pulse Resp BP Pulse Ox 99.1 F 67 20 86/54 96 01/30/19 19:12 01/31/19 04:40 01/30/19 19:12 01/31/19 03:54 01/31/19 03:54 General appearance: Present: no acute distress, cachectic - EENT Eyes: Present: PERRL, EOM intact ENT: hearing intact, clear oral mucosa, dentition normal - Neck Neck: Present: supple, normal ROM - Respiratory Respiratory effort: normal Respiratory: bilateral: CTA - Cardiovascular Rhythm: regular Heart Sounds: Present: S1 & S2. Absent: gallop, rub - Extremities Extremities: no ischemia, No edema, Full ROM - Abdominal General gastrointestinal: soft, non-tender, non-distended, normal bowel sounds - Integumentary Integumentary: Present: clear, warm, dry - Neurologic Neurologic: CNII-XII intact, moves all extremities Results - Labs CBC & Chem 7: 01/31/19 05:20 01/31/19 05:20 Labs: Laboratory Last Values WBC 1.7 K/mm3 (4.5-11.0) L* 01/31/19 05:20 RBC 3.46 M/mm3 (3.65-5.03) L 01/31/19 05:20 Hgb 10.2 gm/dl (11.8-15.2) L 01/31/19 05:20 Hct 30.2 % (35.5-45.6) L 01/31/19 05:20 MCV 88 fl (84-94) 01/31/19 05:20 MCH 30 pg (28-32) 01/31/19 05:20 MCHC 34 % (32-34) 01/31/19 05:20 RDW 15.0 % (13.2-15.2) 01/31/19 05:20 Plt Count 189 K/mm3 (140-440) 01/31/19 05:20 Lymph % (Auto) 18.6 % (13.4-35.0) 01/29/19 04:44 Sampson % (Auto) 7.2 % (0.0-7.3) 01/29/19 04:44 Eos % (Auto) 0.8 % (0.0-4.3) 01/29/19 04:44 Baso % (Auto) 0.4 % (0.0-1.8) 01/29/19 04:44 Lymph # 0.9 K/mm3 (1.2-5.4) L 01/29/19 04:44 Sampson # 0.3 K/mm3 (0.0-0.8) 01/29/19 04:44 Eos # 0.0 K/mm3 (0.0-0.4) 01/29/19 04:44 Baso # 0.0 K/mm3 (0.0-0.1) 01/29/19 04:44 Add Manual Diff Complete 01/31/19 05:20 Total Counted 100 01/31/19 05:20 Seg Neutrophils % 73.0 % (40.0-70.0) H 01/29/19 04:44 Seg Neuts % (Manual) 65.0 % (40.0-70.0) 01/31/19 05:20 0 % 01/31/19 05:20 21.0 % (13.4-35.0) 01/31/19 05:20 Reactive Lymphs % (Man) 6.0 % 01/31/19 05:20 7.0 % (0.0-7.3) 01/31/19 05:20 1.0 % (0.0-4.3) 01/31/19 05:20 0 % (0.0-1.8) 01/31/19 05:20 0 % 01/31/19 05:20 0 % 01/31/19 05:20 0 % 01/31/19 05:20 0 % 01/31/19 05:20 Nucleated RBC % Not Reportable 01/31/19 05:20 Seg Neutrophils # 3.4 K/mm3 (1.8-7.7) 01/29/19 04:44 Seg Neutrophils # Man 1.1 K/mm3 (1.8-7.7) L 01/31/19 05:20 Band Neutrophils # 0.0 K/mm3 01/31/19 05:20 0.4 K/mm3 (1.2-5.4) L 01/31/19 05:20 Abs React Lymphs (Man) 0.1 K/mm3 01/31/19 05:20 0.1 K/mm3 (0.0-0.8) 01/31/19 05:20 0.0 K/mm3 (0.0-0.4) 01/31/19 05:20 0.0 K/mm3 (0.0-0.1) 01/31/19 05:20 0.0 K/mm3 01/31/19 05:20 0.0 K/mm3 01/31/19 05:20 0.0 K/mm3 01/31/19 05:20 Blast Cells # 0.0 K/mm3 01/31/19 05:20 WBC Morphology Not Reportable 01/31/19 05:20 Hypersegmented Neuts Not Reportable 01/31/19 05:20 Hyposegmented Neuts Not Reportable 01/31/19 05:20 Hypogranular Neuts Not Reportable 01/31/19 05:20 Few 01/31/19 05:20 Not Reportable 01/31/19 05:20 Not Reportable 01/31/19 05:20 Not Reportable 01/31/19 05:20 Not Reportable 01/31/19 05:20 Not Reportable 01/31/19 05:20 Consistent w auto 01/31/19 05:20 Not Reportable 01/31/19 05:20 Plt Clumps, EDTA Not Reportable 01/31/19 05:20 Not Reportable 01/31/19 05:20 Not Reportable 01/31/19 05:20 Not Reportable 01/31/19 05:20 Plt Morphology Comment Not Reportable 01/31/19 05:20 RBC Morphology Not Reportable 01/31/19 05:20 Dimorphic RBCs Not Reportable 01/31/19 05:20 Few 01/31/19 05:20 Not Reportable 01/31/19 05:20 Not Reportable 01/31/19 05:20 1+ 01/31/19 05:20 Not Reportable 01/31/19 05:20 Not Reportable 01/31/19 05:20 Not Reportable 01/31/19 05:20 Not Reportable 01/31/19 05:20 Not Reportable 01/31/19 05:20 Not Reportable 01/31/19 05:20 Not Reportable 01/31/19 05:20 1+ 01/31/19 05:20 Not Reportable 01/31/19 05:20 Not Reportable 01/31/19 05:20 Not Reportable 01/31/19 05:20 Not Reportable 01/31/19 05:20 Not Reportable 01/31/19 05:20 Not Reportable 01/31/19 05:20 1+ 01/31/19 05:20 Acanthocytes (Spur) Not Reportable 01/31/19 05:20 Rouleaux Not Reportable 01/31/19 05:20 Not Reportable 01/31/19 05:20 Not Reportable 01/31/19 05:20 Not Reportable 01/31/19 05:20 Not Reportable 01/31/19 05:20 Hem Pathologist Commnt No 01/31/19 05:20 PT 13.3 Sec. (12.2-14.9) 01/28/19 09:02 INR 1.04 (0.87-1.13) 01/28/19 09:02 APTT 26.7 Sec. (24.2-36.6) 01/28/19 09:02 Sodium 139 mmol/L (137-145) 01/31/19 05:20 Potassium 3.4 mmol/L (3.6-5.0) L 01/31/19 05:20 Chloride 105.1 mmol/L (98-107) 01/31/19 05:20 Carbon Dioxide 22 mmol/L (22-30) 01/31/19 05:20 15 mmol/L 01/31/19 05:20 BUN 15 mg/dL (9-20) 01/31/19 05:20 1.1 mg/dL (0.8-1.5) 01/31/19 05:20 Estimated GFR > 60 ml/min 01/31/19 05:20 14 % 01/31/19 05:20 Glucose 105 mg/dL (75-100) H 01/31/19 05:20 POC Glucose 93 (70-105) 01/29/19 21:02 Lactic Acid 1.30 mmol/L (0.7-2.0) 01/28/19 12:15 Calcium 8.8 mg/dL (8.4-10.2) 01/31/19 05:20 Magnesium 1.80 mg/dL (1.7-2.3) 01/28/19 09:02 0.20 mg/dL (0.1-1.2) 01/29/19 04:44 < 0.2 mg/dL (0-0.2) 01/28/19 09:02 0.0 mg/dL 01/28/19 09:02 AST 26 units/L (5-40) 01/29/19 04:44 ALT 22 units/L (7-56) 01/29/19 04:44 99 units/L (35-129) 01/29/19 04:44 51.0 umol/L (25-60) 01/31/19 05:20 215 units/L (55-170) H 01/28/19 09:02 CK-MB (CK-2) 2.9 ng/mL (0.0-4.0) 01/28/19 09:02 CK-MB (CK-2) Rel Index 1.3 (0-4) 01/28/19 09:02 < 0.010 ng/mL (0.00-0.029) 01/28/19 09:02 NT-Pro-B Natriuret Pep 41.80 pg/mL (0-450) 01/28/19 09:08 7.6 g/dL (6.3-8.2) 01/29/19 04:44 3.7 g/dL (3.9-5) L 01/29/19 04:44 0.9 % 01/29/19 04:44 Active Medications - Current Medications Current Medications: Generic Name Dose Route Start Last Admin Trade Name Freq PRN Reason Stop Dose Admin Acetaminophen 650 mg 01/28/19 13:01 Tylenol PO Q4H PRN Pain MILD(1-3)/Fever >100.5/VILLAREAL Albuterol 2.5 mg 01/28/19 13:01 Proventil IH Q4HRT PRN Shortness Of Breath Levetiracetam 500 mg/ Dextrose 105 mls @ 400 mls/hr 01/28/19 22:00 01/31/19 09:51 IV 400 mls/hr Q12HR GLEN Administration Lorazepam 1 mg 01/28/19 08:50 Ativan IV ONCE PRN Agitation Miscellaneous Medication 1 each 01/29/19 10:00 01/31/19 09:54 Darunavir/Cobicistat (Nf) PO 1 each DAILY [facility] Administration Miscellaneous Medication 1 each 01/29/19 10:00 01/31/19 09:55 Emtricitabine/Tenofov Alafenam PO 1 each DAILY [facility] Administration Miscellaneous Medication 25 mg 01/29/19 10:00 01/31/19 09:53 Rilpivirine (Nf) PO 25 mg QDAY [facility] Administration Ondansetron HCl 4 mg 01/28/19 13:01 Zofran IV Q8H PRN Nausea And Vomiting Oxycodone/Acetaminophen 1 tab 01/28/19 13:01 Percocet 5/325 PO Q6H PRN Pain, Moderate (4-6) Sodium Chloride 10 ml 01/28/19 22:00 01/31/19 09:56 Sodium Chloride Flush Syringe 10 Ml IV 10 ml BID [facility] Administration Sodium Chloride 10 ml 01/28/19 13:01 01/30/19 10:00 Sodium Chloride Flush Syringe 10 Ml IV 10 ml PRN PRN Administration LINE FLUSH Trimethoprim/Sulfamethoxazole 1 each 01/29/19 10:00 01/31/19 09:53 Bactrim Ds PO 1 each QDAY [facility] Administration Voriconazole 200 mg 01/28/19 22:00 01/31/19 09:53 Voriconazole PO 200 mg Q12HR GLEN Administration
--- NOTE | 2019-01-31 10:27 | Progress Note ---
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 Transient, possibly postictal given report of generalized seizure prior to admission. Currently, he seems back to his baseline. Agree with MRI. No need for empiric antibiotics at this time. 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 Was started on Keppra. 2) HIV/AIDS: Finally compliant and on medication since September 2018. Current regimen includes Descovy, Prezcobix, Rilpivirine, will continue. Continue OI prophylaxis with azithromycin and Bactrim. Update HIV RNA PCR and CD4 count monitor response to therapy. 3) Resistant mehnaz, refractory oral thrush: Seems to have responded well. We'll continue voriconazole and nystatin. 4) His previous pancytopenia has also resolved, suggestive of compliance with his HIV regimen. 5) Leukopenia: Recs: Follow-up MRI with and without contrast - report pending Continue home regiment: Descovy, Prezcobix, Rilpivirine Continue OI prophylaxis with azithromycin and Bactrim Follow-up HIV RNA PCR and CD4 count Continue voriconazole and nystatin [facility] M: [phone] O:[phone] Subjective Date of service: 01/31/19 Interval history: Patient seen and examined. Sitting up in bed. Reports no acute distress or generalized weakness. Following commands. No fevers. Objective - Exam Narrative Exam: Constitutional: Alert, cooperative. No acute distress. Cachexia + Head, Ears, Nose: Normocephalic, atraumatic. External ears, nose normal Eyes: Conjunctivae/corneas clear. No icterus. No ptosis. Neck: Supple, no meningeal signs Oral: dentition fair, no thrush Cardiovascular: S1, S2 normal. Respiratory: Good air entry, clear to auscultation bilaterally GI: Soft, non-tender; bowel sounds normal. No peritoneal signs Musculoskeletal: No pedal edema, no cyanosis. Skin: No rash or abscess Hem/Lymphatic: No palpable cervical or supraclavicular nodes. No lymphangitis Psych: Mood ok. Affect normal Neurological: Awake, alert, oriented. No gross abnormality - Constitutional Vitals: Vital Signs Temp Pulse Resp BP Pulse Ox 99.1 F 67 20 86/54 96 01/30/19 19:12 01/31/19 04:40 01/30/19 19:12 01/31/19 03:54 01/31/19 03:54 Temperature -Last 24 Hours Temperature 99.1 F Temperature 97.6 F Temperature 97.6 F Temperature 98.1 F - Labs CBC & Chem 7: 01/31/19 05:20 01/31/19 05:20 Labs: Abnormal lab results 01/31/19 01/31/19 Range/Units 05:20 05:20 WBC 1.7 L* (4.5-11.0) K/mm3 RBC 3.46 L (3.65-5.03) M/mm3 Hgb 10.2 L (11.8-15.2) gm/dl Hct 30.2 L (35.5-45.6) % Seg Neutrophils # Man 1.1 L (1.8-7.7) K/mm3 Lymphocytes # (Manual) 0.4 L (1.2-5.4) K/mm3 Potassium 3.4 L (3.6-5.0) mmol/L Glucose 105 H (75-100) mg/dL
--- NOTE | 2019-01-31 15:33 | Magnetic Resonance Report ---
MRI BRAIN with and without IV contrast. INDICATION / CLINICAL INFORMATION: Seizure, memory loss.. TECHNIQUE: Multiplanar, multisequence MR images of the brain were obtained. COMPARISON: The study is compared to the previous MRI of 09/08/2018. FINDINGS: BRAIN / INTRACRANIAL CONTENTS: There is continued extensive cerebral white matter disease, most notab ly involving posterior left cerebrum. Findings are nonspecific though may reflect microvascular angio myrna, advanced for the patient's age. There has been no significant interval change at. The diffusio n imaging reveals no evidence of acute infarction. There is mild cerebral atrophy with associated prominence of the ventricular system. No extra-axial f luid collections or significant mass effect is identified. The motion degrades the image quality desp ite repeat imaging, particularly on the postcontrast sequences. However, no definitive intracranial e nhancing lesions are appreciated. CRANIOCERVICAL JUNCTION: No significant abnormality. VASCULAR FLOW-VOIDS: No significant abnormality. ORBITS: No significant abnormality of visualized orbits. SINUSES / MASTOIDS: Small mucosal thickening involving ethmoid and inferior maxillary sinuses. Mild f ocal inflammatory changes are also seen along the inferior left mastoid air cells. ADDITIONAL FINDINGS: None. IMPRESSION: 1. The motion degrades image quality. However, there is continued extensive cerebral white matter dis ease as described without evidence of acute infarction or significant interval change from 09/08/2018 Signer Name: Martir Akhtar MD Signed: 01/31/2019 3:28 PM Workstation Name: [id number]
--- NOTE | 2019-01-31 19:04 | Consultation ---
History of Present Illness Consult date: 01/31/19 Reason for Consult: Seizure Chief complaint: Seizure History of present illness: Patient is a 43 y/o man w/ a h/o HIV. He presented on 01/29/19 with what was described as a new onset seizure. Patient states that he is unaware of having any seizures in the past. He currently lives at a retirement. Patient was last at [facility] in September,, and MRI was done at that time as well. He was previously non-compliant with HIV medications, however since last admission, has reportedly become compliant. Patient was reportedly post-ictal after seizure, however returned to baseline mental status since then. Past History Past Medical History: HIV/AIDS, other (Malnutrition) Past Surgical History: No surgical history, Other (reviewed) Social history: single. denies: smoking, alcohol abuse, prescription drug abuse Family history: hypertension Medications and Allergies Allergies Allergy/AdvReac Type Severity Reaction Status Date / Time No Known Allergies Allergy Verified 07/18/18 14:08 Home Medications Medication Instructions Recorded Confirmed Last Taken Type Sulfamethoxazole/Trimethoprim 1 each PO QDAY 30 Days #30 tablet 07/23/18 01/28/19 Unknown Rx [Bactrim DS TAB] Darunavir/Cobicistat (Nf) 1 each PO DAILY 01/28/19 01/28/19 Unknown History [Prezcobix 800 mg-150 mg (Nf)] Emtricitabine/Tenofov Alafenam 1 each PO DAILY 01/28/19 01/28/19 Unknown History [Descovy 200-25 mg (Nf)] Flaxseed Oil 1,000 mg PO DAILY 01/28/19 01/28/19 Unknown History Rilpivirine (Nf) [Edurant (Nf)] 25 mg PO QDAY 01/28/19 01/28/19 Unknown History Voriconazole [Vfend] 200 mg PO Q12H 01/28/19 01/28/19 Unknown History Active Meds: Active Medications Acetaminophen (Tylenol) 650 mg PO Q4H PRN PRN Reason: Pain MILD(1-3)/Fever >100.5/VILLAREAL Albuterol (Proventil) 2.5 mg IH Q4HRT PRN PRN Reason: Shortness Of Breath Levetiracetam 500 mg/ Dextrose 105 mls @ 400 mls/hr IV Q12HR GLEN Stop: 01/31/19 23:59 Last Admin: 01/31/19 09:51 Dose: 400 mls/hr Documented by: Levetiracetam (Keppra) 500 mg PO BID [facility] Lorazepam (Ativan) 1 mg IV ONCE PRN PRN Reason: Agitation Miscellaneous Medication (Darunavir/Cobicistat (Nf)) 1 each PO DAILY [facility] Last Admin: 01/31/19 09:54 Dose: 1 each Documented by: Miscellaneous Medication (Emtricitabine/Tenofov Alafenam) 1 each PO DAILY [facility] Last Admin: 01/31/19 09:55 Dose: 1 each Documented by: Miscellaneous Medication (Rilpivirine (Nf)) 25 mg PO QDAY [facility] Last Admin: 01/31/19 09:53 Dose: 25 mg Documented by: Ondansetron HCl (Zofran) 4 mg IV Q8H PRN PRN Reason: Nausea And Vomiting Oxycodone/Acetaminophen (Percocet 5/325) 1 tab PO Q6H PRN PRN Reason: Pain, Moderate (4-6) Sodium Chloride (Sodium Chloride Flush Syringe 10 Ml) 10 ml IV BID [facility] Last Admin: 01/31/19 09:56 Dose: 10 ml Documented by: Sodium Chloride (Sodium Chloride Flush Syringe 10 Ml) 10 ml IV PRN PRN PRN Reason: LINE FLUSH Last Admin: 01/30/19 10:00 Dose: 10 ml Documented by: Trimethoprim/Sulfamethoxazole (Bactrim Ds) 1 each PO QDAY [facility] Last Admin: 01/31/19 09:53 Dose: 1 each Documented by: Voriconazole (Voriconazole) 200 mg PO Q12HR [facility] Last Admin: 01/31/19 09:53 Dose: 200 mg Documented by: Review of Systems All systems: negative Neurological: seizures Physical Examination - Vital Signs Vital Signs: Vital Signs Pulse Resp 103 H 12 01/28/19 08:24 01/28/19 08:24 - Constitutional General appearance: comfortable - EENT EENT: Present: ATNC, PERRL, mucous membranes moist, hearing intact, vision intact - Respiratory Respiratory: Present: lungs clear, normal breath sounds - Cardiovascular Cardiovascular: Present: regular rate, normal S1, normal S2 Extremities: Present: no peripheral edema bilatateraly, no clubbing, cyanosis, no inflammation - Gastrointestinal Gastrointestinal: Present: normoactive bowel sounds, soft, non-tender - Integumentary Integumentary: Present: normal - Neurologic Cranial nerve examination: PERRL, EOMI, VFF, V1/V2/V3 grossly intact, face symmetric, intact shoulder shrug Speech examination: intact Sensorimotor examination: intact Detailed motor examination: full strength in all jaylan Motor examination - right side: 5/5: biceps, triceps, wrist flexion, wrist extension, 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 ) Results - Laboratory Findings CBC and BMP: 01/31/19 05:20 01/31/19 05:20 Abnormal Lab Findings: Abnormal Labs 01/28/19 01/28/19 01/28/19 08:45 08:45 08:48 WBC 4.4 L RBC Hgb 10.9 L Hct 32.9 L MCHC RDW 15.8 H Lymph # Seg Neutrophils % Seg Neuts % (Manual) Seg Neutrophils # Man Lymphocytes # (Manual) Potassium Glucose 110 H POC Glucose 115 H AST Ammonia Total Creatine Kinase Albumin 01/28/19 01/28/19 01/29/19 09:02 09:02 04:44 WBC RBC 3.50 L Hgb 10.5 L Hct 30.5 L MCHC 35 H RDW 15.3 H Lymph # 0.9 L Seg Neutrophils % 73.0 H Seg Neuts % (Manual) Seg Neutrophils # Man Lymphocytes # (Manual) Potassium Glucose POC Glucose AST 42 H Ammonia 78.0 H Total Creatine Kinase 215 H Albumin 3.8 L 01/29/19 01/30/19 01/30/19 04:44 05:29 05:29 WBC 1.6 L* RBC 3.50 L Hgb 10.2 L Hct 30.4 L MCHC RDW Lymph # Seg Neutrophils % Seg Neuts % (Manual) 71.0 H Seg Neutrophils # Man 1.1 L Lymphocytes # (Manual) 0.4 L Potassium 3.4 L 3.2 L Glucose POC Glucose AST Ammonia Total Creatine Kinase Albumin 3.7 L 01/30/19 01/31/19 01/31/19 06:51 05:20 05:20 WBC 1.8 L* 1.7 L* RBC 3.46 L 3.46 L Hgb 10.2 L 10.2 L Hct 30.2 L 30.2 L MCHC RDW Lymph # Seg Neutrophils % Seg Neuts % (Manual) Seg Neutrophils # Man 1.1 L Lymphocytes # (Manual) 0.4 L Potassium 3.4 L Glucose 105 H POC Glucose AST Ammonia Total Creatine Kinase Albumin Assessment and Plan Patient is a 43 y/o man w/ a h/o HIV. He presented on 01/29/19 with what was described as a new onset seizure. According to the patient's clinical findings, it is possible that he has had a seizure. Supporting this diagnosis is the fact that he has underlying significant white matter disease L>R on MRI. This has been unchanged since his last MRI in 09/2018. Further, patient has previously had a low CD4 count of 11, and is at risk of having PML-IRIS. Plan: 1. Seizure: - MRI revealed L>R white matter disease in left parietal region, which is not significantly worsened since last MRI in 09/2018. 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 - ID following. Appreciate for ID to comment on MRI. - Discussed with patient regarding taking keppra long-term for seizure prophylaxis, and also discussed side effects, and patient agreed to this. - Informed patient regarding no driving until cleared by DMV/DPS according to his local driving laws, and he agreed to this and accepted it. Also discussed other seizure precautions. - EEG pending - If ID feels it may be PML, will consider LP with virus titers/PCR. 2. HIV: - Continue to treat per ID team. Will continue to follow. Maxim Novak MD Neurology
[2019-01-31] MEDS ORDERED: ATIVAN IV PRN (19:14)
[2019-02-01 05:33] LABS: Hematocrit 27.2 % (35.5-45.6); Hemoglobin 8.8 gm/dl (11.8-15.2); Mean Corpuscular HGB Conc 32 % (32-34); Mean Corpuscular Volume 91 fl (84-94); Platelet Count 204 K/mm3 (140-440); Red Cell Distribution Width 15.8 % (13.2-15.2)
[2019-02-01 05:46] LABS: BUN/Creatinine Ratio 15; Blood Urea Nitrogen 16 mg/dL (9-20); Calcium 8.8 mg/dL (8.4-10.2); Hemolysis Index 5
[2019-02-01] MEDS: K-DUR PO SCH ×2 (08:00→13:27)
[2019-02-01 08:54] LABS: Total Cells Counted 100
[2019-02-01 08:58] LABS: Basophils % (Manual) 0 % (0.0-1.8)
--- NOTE | 2019-02-01 09:29 | Progress Note ---
Assessment and Plan Assessment and plan: Acute encephalopathy. Resolved. Etiology likely secondary to post ictal state +/- HIV encephalopathy. Patient appears back to his baseline. New onset seizure. Patient denies any history of seizure activity. EEG final report pending. Continue Keppra. No new seizure activity since admission. Neurology following. Hyperammonemia. Follow-up ammonia levels. Lactulose. Hypokalemia. Replete potassium. HIV. Continue antiretroviral therapy and PCP/MAC prophylaxis. ID following. Resistant mehnaz, refractory oral thrush: Seems to have responded well. We'll continue voriconazole and nystatin. Severe protein calorie malnutrition. Nutritional support. Hypotension. NS bolus followed by iv fluids Poss dc tomorrow if BP stable. History Interval history: Asking when he can go home confusion resolved Hospitalist Physical - Physical exam Narrative exam: Gen: Not in acute distress, lying in bed HEENT: Normocephalic, atraumatic Neck: supple, no JVD Heart: S1 and S2 reg, no murmurs, rubs or gallop Lungs: Clear to auscultation, no rhonchi, no wheeze Abd: soft, non tender, non distended, normal BS, Ext: No edema, no clubbing, no cyanosis Neuro: Awake, alert, oriented X 3, no focal neurological signs - Constitutional Vitals: Temp Pulse Resp BP Pulse Ox 98.1 F 55 L 14 93/59 99 02/01/19 05:50 02/01/19 05:50 02/01/19 05:50 02/01/19 05:50 02/01/19 05:50 General appearance: Present: no acute distress, cachectic Results - Labs CBC & Chem 7: 02/01/19 05:08 02/01/19 05:08 Labs: Laboratory Last Values WBC 1.8 K/mm3 (4.5-11.0) L* 02/01/19 05:08 RBC 3.00 M/mm3 (3.65-5.03) L 02/01/19 05:08 Hgb 8.8 gm/dl (11.8-15.2) L 02/01/19 05:08 Hct 27.2 % (35.5-45.6) L 02/01/19 05:08 MCV 91 fl (84-94) 02/01/19 05:08 MCH 30 pg (28-32) 02/01/19 05:08 MCHC 32 % (32-34) 02/01/19 05:08 RDW 15.8 % (13.2-15.2) H 02/01/19 05:08 Plt Count 204 K/mm3 (140-440) 02/01/19 05:08 Lymph % (Auto) 18.6 % (13.4-35.0) 01/29/19 04:44 Garden % (Auto) 7.2 % (0.0-7.3) 01/29/19 04:44 Eos % (Auto) 0.8 % (0.0-4.3) 01/29/19 04:44 Baso % (Auto) 0.4 % (0.0-1.8) 01/29/19 04:44 Lymph # 0.9 K/mm3 (1.2-5.4) L 01/29/19 04:44 Garden # 0.3 K/mm3 (0.0-0.8) 01/29/19 04:44 Eos # 0.0 K/mm3 (0.0-0.4) 01/29/19 04:44 Baso # 0.0 K/mm3 (0.0-0.1) 01/29/19 04:44 Add Manual Diff Complete 01/31/19 05:20 Total Counted 100 01/31/19 05:20 Seg Neutrophils % 73.0 % (40.0-70.0) H 01/29/19 04:44 Seg Neuts % (Manual) 65.0 % (40.0-70.0) 01/31/19 05:20 0 % 01/31/19 05:20 21.0 % (13.4-35.0) 01/31/19 05:20 Reactive Lymphs % (Man) 6.0 % 01/31/19 05:20 7.0 % (0.0-7.3) 01/31/19 05:20 1.0 % (0.0-4.3) 01/31/19 05:20 0 % (0.0-1.8) 01/31/19 05:20 0 % 01/31/19 05:20 0 % 01/31/19 05:20 0 % 01/31/19 05:20 0 % 01/31/19 05:20 Nucleated RBC % Not Reportable 01/31/19 05:20 Seg Neutrophils # 3.4 K/mm3 (1.8-7.7) 01/29/19 04:44 Seg Neutrophils # Man 1.1 K/mm3 (1.8-7.7) L 01/31/19 05:20 Band Neutrophils # 0.0 K/mm3 01/31/19 05:20 0.4 K/mm3 (1.2-5.4) L 01/31/19 05:20 Abs React Lymphs (Man) 0.1 K/mm3 01/31/19 05:20 0.1 K/mm3 (0.0-0.8) 01/31/19 05:20 0.0 K/mm3 (0.0-0.4) 01/31/19 05:20 0.0 K/mm3 (0.0-0.1) 01/31/19 05:20 0.0 K/mm3 01/31/19 05:20 0.0 K/mm3 01/31/19 05:20 0.0 K/mm3 01/31/19 05:20 Blast Cells # 0.0 K/mm3 01/31/19 05:20 WBC Morphology Not Reportable 01/31/19 05:20 Hypersegmented Neuts Not Reportable 01/31/19 05:20 Hyposegmented Neuts Not Reportable 01/31/19 05:20 Hypogranular Neuts Not Reportable 01/31/19 05:20 Few 01/31/19 05:20 Not Reportable 01/31/19 05:20 Not Reportable 01/31/19 05:20 Not Reportable 01/31/19 05:20 Not Reportable 01/31/19 05:20 Not Reportable 01/31/19 05:20 Consistent w auto 01/31/19 05:20 Not Reportable 01/31/19 05:20 Plt Clumps, EDTA Not Reportable 01/31/19 05:20 Not Reportable 01/31/19 05:20 Not Reportable 01/31/19 05:20 Not Reportable 01/31/19 05:20 Plt Morphology Comment Not Reportable 01/31/19 05:20 RBC Morphology Not Reportable 01/31/19 05:20 Dimorphic RBCs Not Reportable 01/31/19 05:20 Few 01/31/19 05:20 Not Reportable 01/31/19 05:20 Not Reportable 01/31/19 05:20 1+ 01/31/19 05:20 Not Reportable 01/31/19 05:20 Not Reportable 01/31/19 05:20 Not Reportable 01/31/19 05:20 Not Reportable 01/31/19 05:20 Not Reportable 01/31/19 05:20 Not Reportable 01/31/19 05:20 Not Reportable 01/31/19 05:20 1+ 01/31/19 05:20 Not Reportable 01/31/19 05:20 Not Reportable 01/31/19 05:20 Not Reportable 01/31/19 05:20 Not Reportable 01/31/19 05:20 Not Reportable 01/31/19 05:20 Not Reportable 01/31/19 05:20 1+ 01/31/19 05:20 Acanthocytes (Spur) Not Reportable 01/31/19 05:20 Rouleaux Not Reportable 01/31/19 05:20 Not Reportable 01/31/19 05:20 Not Reportable 01/31/19 05:20 Not Reportable 01/31/19 05:20 Not Reportable 01/31/19 05:20 Hem Pathologist Commnt No 01/31/19 05:20 PT 13.3 Sec. (12.2-14.9) 01/28/19 09:02 INR 1.04 (0.87-1.13) 01/28/19 09:02 APTT 26.7 Sec. (24.2-36.6) 01/28/19 09:02 Sodium 141 mmol/L (137-145) 02/01/19 05:08 Potassium 3.4 mmol/L (3.6-5.0) L 02/01/19 05:08 Chloride 107.4 mmol/L (98-107) H 02/01/19 05:08 Carbon Dioxide 22 mmol/L (22-30) 02/01/19 05:08 15 mmol/L 02/01/19 05:08 BUN 16 mg/dL (9-20) 02/01/19 05:08 1.1 mg/dL (0.8-1.5) 02/01/19 05:08 Estimated GFR > 60 ml/min 02/01/19 05:08 15 % 02/01/19 05:08 Glucose 87 mg/dL (75-100) 02/01/19 05:08 POC Glucose 93 (70-105) 01/29/19 21:02 Lactic Acid 1.30 mmol/L (0.7-2.0) 01/28/19 12:15 Calcium 8.8 mg/dL (8.4-10.2) 02/01/19 05:08 Magnesium 1.80 mg/dL (1.7-2.3) 01/28/19 09:02 0.20 mg/dL (0.1-1.2) 01/29/19 04:44 < 0.2 mg/dL (0-0.2) 01/28/19 09:02 0.0 mg/dL 01/28/19 09:02 AST 26 units/L (5-40) 01/29/19 04:44 ALT 22 units/L (7-56) 01/29/19 04:44 99 units/L (35-129) 01/29/19 04:44 62.0 umol/L (25-60) H 02/01/19 05:08 215 units/L (55-170) H 01/28/19 09:02 CK-MB (CK-2) 2.9 ng/mL (0.0-4.0) 01/28/19 09:02 CK-MB (CK-2) Rel Index 1.3 (0-4) 01/28/19 09:02 < 0.010 ng/mL (0.00-0.029) 01/28/19 09:02 NT-Pro-B Natriuret Pep 41.80 pg/mL (0-450) 01/28/19 09:08 7.6 g/dL (6.3-8.2) 01/29/19 04:44 3.7 g/dL (3.9-5) L 01/29/19 04:44 0.9 % 01/29/19 04:44 Active Medications - Current Medications Current Medications: Generic Name Dose Route Start Last Admin Trade Name Freq PRN Reason Stop Dose Admin Acetaminophen 650 mg 01/28/19 13:01 Tylenol PO Q4H PRN Pain MILD(1-3)/Fever >100.5/VILLAREAL Albuterol 2.5 mg 01/28/19 13:01 Proventil IH Q4HRT PRN Shortness Of Breath Levetiracetam 500 mg 02/01/19 10:00 Keppra PO BID GLEN Lorazepam 1 mg 01/31/19 19:14 Ativan IV ONCE PRN Seizures Miscellaneous Medication 1 each 01/29/19 10:00 01/31/19 09:54 Darunavir/Cobicistat (Nf) PO 1 each DAILY GLEN Administration Miscellaneous Medication 1 each 01/29/19 10:00 01/31/19 09:55 Emtricitabine/Tenofov Alafenam PO 1 each DAILY GLEN Administration Miscellaneous Medication 25 mg 01/29/19 10:00 01/31/19 09:53 Rilpivirine (Nf) PO 25 mg QDAY GLEN Administration Ondansetron HCl 4 mg 01/28/19 13:01 Zofran IV Q8H PRN Nausea And Vomiting Oxycodone/Acetaminophen 1 tab 01/28/19 13:01 Percocet 5/325 PO Q6H PRN Pain, Moderate (4-6) Potassium Chloride 40 meq 02/01/19 08:00 K-Dur PO 02/01/19 14:01 Q6H GLEN Sodium Chloride 10 ml 01/28/19 22:00 01/31/19 22:07 Sodium Chloride Flush Syringe 10 Ml IV 10 ml BID GLEN Administration Sodium Chloride 10 ml 01/28/19 13:01 01/30/19 10:00 Sodium Chloride Flush Syringe 10 Ml IV 10 ml PRN PRN Administration LINE FLUSH Trimethoprim/Sulfamethoxazole 1 each 01/29/19 10:00 01/31/19 09:53 Bactrim Ds PO 1 each QDAY GLEN Administration Voriconazole 200 mg 01/28/19 22:00 01/31/19 22:06 Voriconazole PO 200 mg Q12HR GLEN Administration
--- NOTE | 2019-02-01 09:55 | Progress Note ---
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 Transient, possibly postictal given report of generalized seizure prior to admission. Currently, he seems back to his baseline. Agree with MRI. No need for empiric antibiotics at this time. 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 Was started on Keppra. MRI brain shows continued extensive cerebral white matter disease w/o evidence of acute infarction or significant interval change from 09/08/2018 . 2) HIV/AIDS: Finally compliant and on medication since September 2018. Current regimen includes Descovy, Prezcobix, Rilpivirine, will continue. Continue OI prophylaxis with azithromycin and Bactrim. Update HIV RNA PCR and CD4 count monitor response to therapy. 3) Resistant mhenaz, refractory oral thrush: Improved. Seems to have responded well. We'll continue voriconazole and nystatin. 4) His previous pancytopenia has also resolved, suggestive of compliance with his HIV regimen. 5) Leukopenia: Recs: Continue home regimend: Descovy, Prezcobix, Rilpivirine Continue OI prophylaxis with azithromycin and Bactrim Follow-up HIV RNA PCR and CD4 count Continue voriconazole and nystatin Anticipate discharge on Bactrim 1 DS PO q day, Azithromycin 1200mg PO qweek, Nystatin SS BID and Voriconazole 200 mg PO q 12 (30 days) (Prescriptions on the chart) Clinically stable- Ok to discharge from ID standpoint Follow-up with [facility] Dee Vyas NP [facility] M: [phone] O:[phone] Subjective Date of service: 02/01/19 Interval history: Patient seen and examined. Sitting up in bed. Reports no acute distress or generalized weakness. Following commands. No fevers. Objective - Exam Narrative Exam: Constitutional: Alert, cooperative. No acute distress. Cachexia + Head, Ears, Nose: Normocephalic, atraumatic. External ears, nose normal Eyes: Conjunctivae/corneas clear. No icterus. No ptosis. Neck: Supple, no meningeal signs Oral: dentition fair, no thrush Cardiovascular: S1, S2 normal. Respiratory: Good air entry, clear to auscultation bilaterally GI: Soft, non-tender; bowel sounds normal. No peritoneal signs Musculoskeletal: No pedal edema, no cyanosis. Skin: No rash or abscess Hem/Lymphatic: No palpable cervical or supraclavicular nodes. No lymphangitis Psych: Mood ok. Affect normal Neurological: Awake, alert, oriented. No gross abnormality - Constitutional Vitals: Vital Signs Temp Pulse Resp BP Pulse Ox 98.1 F 55 L 14 93/59 99 02/01/19 05:50 02/01/19 05:50 02/01/19 05:50 02/01/19 05:50 02/01/19 05:50 Temperature -Last 24 Hours Temperature 98.1 F Temperature 98.8 F Temperature 98.4 F - Labs CBC & Chem 7: 02/01/19 05:08 02/01/19 05:08 Labs: Abnormal lab results 02/01/19 02/01/19 02/01/19 Range/Units 05:08 05:08 05:08 WBC 1.8 L* (4.5-11.0) K/mm3 RBC 3.00 L (3.65-5.03) M/mm3 Hgb 8.8 L (11.8-15.2) gm/dl Hct 27.2 L (35.5-45.6) % RDW 15.8 H (13.2-15.2) % Potassium 3.4 L (3.6-5.0) mmol/L Chloride 107.4 H (98-107) mmol/L Ammonia 62.0 H (25-60) umol/L
[2019-02-01] MEDS: TENOFOV ALAFENAM PO SCH (10:00)
[2019-02-01] MEDS: KEPPRA PO SCH ×2 (10:00→22:25)
[2019-02-01] MEDS: EMTRICITABINE PO SCH (10:00)
[2019-02-01] MEDS: SODIUM CHLORIDE FLUSH SYRINGE 10 ML IV SCH ×2 (10:00→22:26)
[2019-02-01] MEDS: BACTRIM DS PO SCH (10:00)
[2019-02-01] MEDS: RILPIVIRINE 25 MG PO SCH (10:00)
[2019-02-01] MEDS: NON-FORMULARY (Darunavir/Cobicistat (Nf) 1 EACH) PO SCH (10:00)
[2019-02-01] MEDS: VORICONAZOLE PO SCH ×2 (10:00→22:26)
[2019-02-01 10:31] LABS: Anisocytosis 1+; Ovalocytes 1+; Platelet Estimate Consistent w Auto
--- NOTE | 2019-02-01 13:57 | Progress Note ---
Assessment and Plan Patient is a 43 y/o man w/ a h/o HIV. He presented on 01/29/19 with what was described as a new onset seizure. According to the patient's clinical findings, it is possible that he has had a seizure. Supporting this diagnosis is the fact that he has underlying significant white matter disease L>R on MRI. This has been unchanged since his last MRI in 09/2018. Plan: 1. Seizure: - MRI revealed L>R white matter disease in left parietal region, which is not significantly worsened since last MRI in 09/2018. 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 - ID following. - Discussed with patient regarding taking keppra long-term for seizure prophylaxis, and also discussed side effects, and patient agreed to this. - Informed patient regarding no driving until cleared by DMV/DPS according to his local driving laws, and he agreed to this and accepted it. Also discussed other seizure precautions. - EEG final report pending- initial review did not show any epileptiform activity. - If ID feels it may be PML, will consider LP with virus titers/PCR. 2. HIV: - Continue to treat per ID team. Will sign off. Please call with any questions. Maxim Novak MD Neurology Subjective Date of service: 02/01/19 Principal diagnosis: Seizure Interval history: No acute events overnight. Objective - Vital Sign Vital Signs - 12hr 02/01/19 05:50 Temperature 98.1 F Pulse Rate 55 L Respiratory 14 Rate Blood Pressure 93/59 O2 Sat by Pulse 99 Oximetry - General Apperance Constitutional: comfortable - EENT EENT: ATNC, PERRL, mucous membranes moist, hearing intact, vision intact - Respiratory Respiratory: lungs clear, normal breath sounds - Cardiovascular Cardiovascular: regular rate, normal S1, normal S2 Extremities: no peripheral edema bilat, no clubbing, cyanosis - Gastrointestinal Gastrointestinal: normoactive bowel sounds, soft, non-tender - Integumentary Integumentary: normal - Neurologic Cranial nerve examination: PERRL, EOMI, VFF, V1/V2/V3 grossly intact, face symmetric, tongue midline, intact shoulder shrug Speech examination: intact Detailed motor examination: full strength in all jaylan Motor examination - right side: 5/5: biceps, triceps, wrist flexion, wrist extension, java engineer, hip flexors, knee extensors, dorsiflexion, toe extension (EHL), plantarflexion Motor examination - left side: 5/5: biceps, triceps, wrist flexion, wrist extension, java engineer, hip flexors, knee extensors, dorsiflexion, toe extension (EHL), plantarflexion Detailed sensory examination: intact, light touch Reflexes: 2+: ankle, bicep, knee, tricep Cerebellar examination: other (b/l intact to FTN and HTS) - Musculoskeletal Musculoskeletal: no fluid collection, no pain - Psychiatric Psychiatric: mood/affect appropriate - Laboratory Findings CBC and BMP: 02/01/19 05:08 02/01/19 05:08 Abnormal Lab Findings: Abnormal Labs 01/28/19 01/28/19 01/28/19 08:45 08:45 08:48 WBC 4.4 L RBC Hgb 10.9 L Hct 32.9 L MCHC RDW 15.8 H Lymph # Seg Neutrophils % Seg Neuts % (Manual) Lymphocytes % (Manual) Monocytes % (Manual) Seg Neutrophils # Man Lymphocytes # (Manual) Potassium Chloride Glucose 110 H POC Glucose 115 H AST Ammonia Total Creatine Kinase Albumin 01/28/19 01/28/19 01/29/19 09:02 09:02 04:44 WBC RBC 3.50 L Hgb 10.5 L Hct 30.5 L MCHC 35 H RDW 15.3 H Lymph # 0.9 L Seg Neutrophils % 73.0 H Seg Neuts % (Manual) Lymphocytes % (Manual) Monocytes % (Manual) Seg Neutrophils # Man Lymphocytes # (Manual) Potassium Chloride Glucose POC Glucose AST 42 H Ammonia 78.0 H Total Creatine Kinase 215 H Albumin 3.8 L 01/29/19 01/30/19 01/30/19 04:44 05:29 05:29 WBC 1.6 L* RBC 3.50 L Hgb 10.2 L Hct 30.4 L MCHC RDW Lymph # Seg Neutrophils % Seg Neuts % (Manual) 71.0 H Lymphocytes % (Manual) Monocytes % (Manual) Seg Neutrophils # Man 1.1 L Lymphocytes # (Manual) 0.4 L Potassium 3.4 L 3.2 L Chloride Glucose POC Glucose AST Ammonia Total Creatine Kinase Albumin 3.7 L 01/30/19 01/31/19 01/31/19 06:51 05:20 05:20 WBC 1.8 L* 1.7 L* RBC 3.46 L 3.46 L Hgb 10.2 L 10.2 L Hct 30.2 L 30.2 L MCHC RDW Lymph # Seg Neutrophils % Seg Neuts % (Manual) Lymphocytes % (Manual) Monocytes % (Manual) Seg Neutrophils # Man 1.1 L Lymphocytes # (Manual) 0.4 L Potassium 3.4 L Chloride Glucose 105 H POC Glucose AST Ammonia Total Creatine Kinase Albumin 02/01/19 02/01/19 02/01/19 05:08 05:08 05:08 WBC 1.8 L* RBC 3.00 L Hgb 8.8 L Hct 27.2 L MCHC RDW 15.8 H Lymph # Seg Neutrophils % Seg Neuts % (Manual) Lymphocytes % (Manual) 41.0 H Monocytes % (Manual) 8.0 H Seg Neutrophils # Man 0.9 L Lymphocytes # (Manual) 0.7 L Potassium 3.4 L Chloride 107.4 H Glucose POC Glucose AST Ammonia 62.0 H Total Creatine Kinase Albumin
[2019-02-01] MEDS ORDERED: NACL 0.9% 1000 ML 1,000 ML IV ONE (15:00)
--- NOTE | 2019-02-01 23:24 | Electroencephalogram Report ---
Electroencephalogram EEG Date of exam: 02/01/19 History: Patient is a 43 y/o man w/ a h/o HIV. He presented on 01/29/19 with what was described as a new onset seizure. Impression: Impression: Normal waking and sleep EEG. Description: The waking background shows an appropriate organization with well-defined anterior posterior voltage and frequency gradients. Posteriorly, there is a well-developed alpha rhythm of [9] Hz which is symmetrical and bilaterally reactive. Anteriorly, there is a pattern of lower voltage theta and beta range frequencies. During drowsiness, there is attenuation of the background rhythms. The sleep background shows normal organization. Photic stimulation not done. Throughout, the recording there are no epileptiform abnormalities, focal or lateralizing features, or significant interhemispheric findings. Interpretation: A normal EEG does not rule out seizures. Clinical correlation required.
[2019-02-02] MEDS ORDERED: NACL 0.9% 1000 ML 1,000 ML IV ONE ×2 (07:30→16:23)
[2019-02-02] MEDS: BACTRIM DS PO SCH (09:49)
[2019-02-02] MEDS: KEPPRA PO SCH ×2 (09:49→22:02)
[2019-02-02] MEDS: NON-FORMULARY (Darunavir/Cobicistat (Nf) 1 EACH) PO SCH (09:52)
[2019-02-02] MEDS: RILPIVIRINE 25 MG PO SCH (09:53)
[2019-02-02] MEDS: SODIUM CHLORIDE FLUSH SYRINGE 10 ML IV SCH ×2 (09:54→22:02)
[2019-02-02] MEDS: VORICONAZOLE PO SCH ×2 (11:12→22:03)
[2019-02-02] MEDS: TENOFOV ALAFENAM PO SCH (11:25)
[2019-02-02] MEDS: EMTRICITABINE PO SCH (11:25)
--- NOTE | 2019-02-02 14:10 | Progress Note ---
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 Transient, possibly postictal given report of generalized seizure prior to admission. Currently, he seems back to his baseline. Agree with MRI. No need for empiric antibiotics at this time. 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 Was started on Keppra. MRI brain shows continued extensive cerebral white matter disease w/o evidence of acute infarction or significant interval change from 09/08/2018 . 2) HIV/AIDS: Finally compliant and on medication since September 2018. Current regimen includes Descovy, Prezcobix, Rilpivirine, will continue. Continue OI prophylaxis with azithromycin and Bactrim. Update HIV RNA PCR and CD4 count monitor response to therapy. 3) Resistant mehnaz, refractory oral thrush: Improved. Seems to have responded well. We'll continue voriconazole and nystatin. 4) His previous pancytopenia has also resolved, suggestive of compliance with his HIV regimen. 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 Workup could be obtained as an outpatient as there is no effective therapy. Will encourage ART compliance to improve his CD4 counts. Recs: Continue home regimend: Descovy, Prezcobix, Rilpivirine Continue OI prophylaxis with azithromycin and Bactrim Follow-up HIV RNA PCR and CD4 count Continue voriconazole and nystatin Anticipate discharge on Bactrim 1 DS PO q day, Azithromycin 1200mg PO qweek, Nystatin SS BID and Voriconazole 200 mg PO q 12 (30 days) (Prescriptions on the chart) Clinically stable- Ok to discharge from ID standpoint Follow-up with [facility] ID is signing off, please call for questions [facility] M: [phone] O:[phone] Subjective Date of service: 02/02/19 Principal diagnosis: Seizure Interval history: Patient seen and examined. Sitting up in bed. Reports no acute distress or generalized weakness. Following commands. No fevers. Objective - Exam Narrative Exam: Constitutional: Alert, cooperative. No acute distress. Cachexia + Head, Ears, Nose: Normocephalic, atraumatic. External ears, nose normal Eyes: Conjunctivae/corneas clear. No icterus. No ptosis. Neck: Supple, no meningeal signs Oral: dentition fair, no thrush Cardiovascular: S1, S2 normal. Respiratory: Good air entry, clear to auscultation bilaterally GI: Soft, non-tender; bowel sounds normal. No peritoneal signs Musculoskeletal: No pedal edema, no cyanosis. Skin: No rash or abscess Hem/Lymphatic: No palpable cervical or supraclavicular nodes. No lymphangitis Psych: Mood ok. Affect normal Neurological: Awake, alert, oriented. No gross abnormality - Constitutional Vitals: Vital Signs Temp Pulse Resp BP Pulse Ox 97.0 F L 69 18 91/61 99 02/02/19 12:40 02/02/19 12:41 02/02/19 12:40 02/02/19 12:40 02/02/19 12:41 Temperature -Last 24 Hours Temperature 97.0 F Temperature 98.7 F Temperature 98.1 F Temperature 98.3 F - Labs CBC & Chem 7: 02/01/19 05:08 02/02/19 05:06
[2019-02-02] MEDS: NACL 0.9% 1000 ML 1,000 ML IV SCH ×2 (14:36→22:03)
[2019-02-02 14:42] LABS: HIV-1 RNA QN PCR 5.82 Log cps/mL
--- NOTE | 2019-02-02 17:02 | Progress Note ---
Assessment and Plan Assessment and plan: Acute encephalopathy. Resolved. Etiology likely secondary to post ictal state +/- HIV encephalopathy. Patient appears back to his baseline. New onset seizure. Patient denies any history of seizure activity. EEG final report pending. Continue Keppra. No new seizure activity since admission. Neurology following. Hyperammonemia. Follow-up ammonia levels. Lactulose. Hypokalemia. Replete potassium. HIV. Continue antiretroviral therapy and PCP/MAC prophylaxis. ID following. Resistant mehnaz, refractory oral thrush: Seems to have responded well. We'll continue voriconazole and nystatin. Severe protein calorie malnutrition. Nutritional support. Hypotension. NS bolus followed by iv fluids Not stable for discharge because BP still low. Give another NS bolus start midodrine 5mg tid Poss dc tomorrow if BP stable. History Interval history: Asking when he can go home confusion resolved BP has been low Hospitalist Physical - Physical exam Narrative exam: Gen: Not in acute distress, lying in bed HEENT: Normocephalic, atraumatic Neck: supple, no JVD Heart: S1 and S2 reg, no murmurs, rubs or gallop Lungs: Clear to auscultation, no rhonchi, no wheeze Abd: soft, non tender, non distended, normal BS, Ext: No edema, no clubbing, no cyanosis Neuro: Awake, alert, oriented X 3, no focal neurological signs - Constitutional Vitals: Temp Pulse Resp BP Pulse Ox 98.0 F 69 59 H 96/47 99 02/02/19 15:47 02/02/19 12:41 02/02/19 15:47 02/02/19 15:47 02/02/19 12:41 General appearance: Present: no acute distress, cachectic Results - Labs CBC & Chem 7: 02/01/19 05:08 02/02/19 05:06 Labs: Laboratory Last Values WBC 1.8 K/mm3 (4.5-11.0) L* 02/01/19 05:08 RBC 3.00 M/mm3 (3.65-5.03) L 02/01/19 05:08 Hgb 8.8 gm/dl (11.8-15.2) L 02/01/19 05:08 Hct 27.2 % (35.5-45.6) L 02/01/19 05:08 MCV 91 fl (84-94) 02/01/19 05:08 MCH 30 pg (28-32) 02/01/19 05:08 MCHC 32 % (32-34) 02/01/19 05:08 RDW 15.8 % (13.2-15.2) H 02/01/19 05:08 Plt Count 204 K/mm3 (140-440) 02/01/19 05:08 Lymph % (Auto) 18.6 % (13.4-35.0) 01/29/19 04:44 Bledsoe % (Auto) 7.2 % (0.0-7.3) 01/29/19 04:44 Eos % (Auto) 0.8 % (0.0-4.3) 01/29/19 04:44 Baso % (Auto) 0.4 % (0.0-1.8) 01/29/19 04:44 Lymph # 0.9 K/mm3 (1.2-5.4) L 01/29/19 04:44 Bledsoe # 0.3 K/mm3 (0.0-0.8) 01/29/19 04:44 Eos # 0.0 K/mm3 (0.0-0.4) 01/29/19 04:44 Baso # 0.0 K/mm3 (0.0-0.1) 01/29/19 04:44 Add Manual Diff Complete 02/01/19 05:08 Total Counted 100 02/01/19 05:08 Seg Neutrophils % 73.0 % (40.0-70.0) H 01/29/19 04:44 Seg Neuts % (Manual) 49.0 % (40.0-70.0) 02/01/19 05:08 1.0 % 02/01/19 05:08 41.0 % (13.4-35.0) H 02/01/19 05:08 Reactive Lymphs % (Man) 0 % 02/01/19 05:08 8.0 % (0.0-7.3) H 02/01/19 05:08 1.0 % (0.0-4.3) 02/01/19 05:08 0 % (0.0-1.8) 02/01/19 05:08 0 % 02/01/19 05:08 0 % 02/01/19 05:08 0 % 02/01/19 05:08 0 % 02/01/19 05:08 Nucleated RBC % Not Reportable 02/01/19 05:08 Seg Neutrophils # 3.4 K/mm3 (1.8-7.7) 01/29/19 04:44 Seg Neutrophils # Man 0.9 K/mm3 (1.8-7.7) L 02/01/19 05:08 Band Neutrophils # 0.0 K/mm3 02/01/19 05:08 0.7 K/mm3 (1.2-5.4) L 02/01/19 05:08 Abs React Lymphs (Man) 0.0 K/mm3 02/01/19 05:08 0.1 K/mm3 (0.0-0.8) 02/01/19 05:08 0.0 K/mm3 (0.0-0.4) 02/01/19 05:08 0.0 K/mm3 (0.0-0.1) 02/01/19 05:08 0.0 K/mm3 02/01/19 05:08 0.0 K/mm3 02/01/19 05:08 0.0 K/mm3 02/01/19 05:08 Blast Cells # 0.0 K/mm3 02/01/19 05:08 WBC Morphology Not Reportable 02/01/19 05:08 Hypersegmented Neuts Not Reportable 02/01/19 05:08 Hyposegmented Neuts Not Reportable 02/01/19 05:08 Hypogranular Neuts Not Reportable 02/01/19 05:08 Not Reportable 02/01/19 05:08 Not Reportable 02/01/19 05:08 Not Reportable 02/01/19 05:08 Not Reportable 02/01/19 05:08 Not Reportable 02/01/19 05:08 Not Reportable 02/01/19 05:08 Consistent w auto 02/01/19 05:08 Not Reportable 02/01/19 05:08 Plt Clumps, EDTA Not Reportable 02/01/19 05:08 Not Reportable 02/01/19 05:08 Not Reportable 02/01/19 05:08 Not Reportable 02/01/19 05:08 Plt Morphology Comment Not Reportable 02/01/19 05:08 RBC Morphology Not Reportable 02/01/19 05:08 Dimorphic RBCs Not Reportable 02/01/19 05:08 Few 02/01/19 05:08 Not Reportable 02/01/19 05:08 Not Reportable 02/01/19 05:08 1+ 02/01/19 05:08 Not Reportable 02/01/19 05:08 Not Reportable 02/01/19 05:08 Not Reportable 02/01/19 05:08 Not Reportable 02/01/19 05:08 Not Reportable 02/01/19 05:08 Not Reportable 02/01/19 05:08 Not Reportable 02/01/19 05:08 1+ 02/01/19 05:08 Not Reportable 02/01/19 05:08 Not Reportable 02/01/19 05:08 Not Reportable 02/01/19 05:08 Not Reportable 02/01/19 05:08 Not Reportable 02/01/19 05:08 Not Reportable 02/01/19 05:08 2+ 02/01/19 05:08 Acanthocytes (Spur) Not Reportable 02/01/19 05:08 Rouleaux Not Reportable 02/01/19 05:08 Not Reportable 02/01/19 05:08 Not Reportable 02/01/19 05:08 Not Reportable 02/01/19 05:08 Not Reportable 02/01/19 05:08 Hem Pathologist Commnt No 02/01/19 05:08 PT 13.3 Sec. (12.2-14.9) 01/28/19 09:02 INR 1.04 (0.87-1.13) 01/28/19 09:02 APTT 26.7 Sec. (24.2-36.6) 01/28/19 09:02 Sodium 141 mmol/L (137-145) 02/01/19 05:08 Potassium 4.4 mmol/L (3.6-5.0) D 02/02/19 05:06 Chloride 107.4 mmol/L (98-107) H 02/01/19 05:08 Carbon Dioxide 22 mmol/L (22-30) 02/01/19 05:08 15 mmol/L 02/01/19 05:08 BUN 16 mg/dL (9-20) 02/01/19 05:08 1.1 mg/dL (0.8-1.5) 02/01/19 05:08 Estimated GFR > 60 ml/min 02/01/19 05:08 15 % 02/01/19 05:08 Glucose 87 mg/dL (75-100) 02/01/19 05:08 POC Glucose 93 (70-105) 01/29/19 21:02 Lactic Acid 1.30 mmol/L (0.7-2.0) 01/28/19 12:15 Calcium 8.8 mg/dL (8.4-10.2) 02/01/19 05:08 Magnesium 1.80 mg/dL (1.7-2.3) 01/28/19 09:02 0.20 mg/dL (0.1-1.2) 01/29/19 04:44 < 0.2 mg/dL (0-0.2) 01/28/19 09:02 0.0 mg/dL 01/28/19 09:02 AST 26 units/L (5-40) 01/29/19 04:44 ALT 22 units/L (7-56) 01/29/19 04:44 99 units/L (35-129) 01/29/19 04:44 56.0 umol/L (25-60) 02/02/19 05:06 215 units/L (55-170) H 01/28/19 09:02 CK-MB (CK-2) 2.9 ng/mL (0.0-4.0) 01/28/19 09:02 CK-MB (CK-2) Rel Index 1.3 (0-4) 01/28/19 09:02 < 0.010 ng/mL (0.00-0.029) 01/28/19 09:02 NT-Pro-B Natriuret Pep 41.80 pg/mL (0-450) 01/28/19 09:08 7.6 g/dL (6.3-8.2) 01/29/19 04:44 3.7 g/dL (3.9-5) L 01/29/19 04:44 0.9 % 01/29/19 04:44 HIV-1 RNA PCR copies/ml [id number] Copies/mL H 01/30/19 05:29 5.82 Log cps/mL H 01/30/19 05:29 Active Medications - Current Medications Current Medications: Generic Name Dose Route Start Last Admin Trade Name Freq PRN Reason Stop Dose Admin Acetaminophen 650 mg 01/28/19 13:01 Tylenol PO Q4H PRN Pain MILD(1-3)/Fever >100.5/VILLAREAL Albuterol 2.5 mg 01/28/19 13:01 Proventil IH Q4HRT PRN Shortness Of Breath Sodium Chloride 1,000 mls @ 100 mls/hr 02/01/19 17:00 02/02/19 14:36 Nacl 0.9% 1000 Ml IV 100 mls/hr DIRECT LGEN Administration Sodium Chloride 1,000 mls @ 999 mls/hr 02/02/19 16:23 02/02/19 16:43 Nacl 0.9% 1000 Ml IV 02/02/19 17:23 999 mls/hr BOLUS ONE Administration Levetiracetam 500 mg 02/01/19 10:00 02/02/19 09:49 Keppra PO 500 mg BID GLEN Administration Lorazepam 1 mg 01/31/19 19:14 Ativan IV ONCE PRN Seizures Midodrine 5 mg 02/02/19 17:00 Proamatine PO TID GLEN Miscellaneous Medication 1 each 01/29/19 10:00 02/02/19 09:52 Darunavir/Cobicistat (Nf) PO 1 each DAILY GLEN Administration Miscellaneous Medication 1 each 01/29/19 10:00 02/02/19 11:25 Emtricitabine/Tenofov Alafenam PO 1 each DAILY GLEN Administration Miscellaneous Medication 25 mg 01/29/19 10:00 02/02/19 09:53 Rilpivirine (Nf) PO 25 mg QDAY GLEN Administration Ondansetron HCl 4 mg 01/28/19 13:01 Zofran IV Q8H PRN Nausea And Vomiting Oxycodone/Acetaminophen 1 tab 01/28/19 13:01 Percocet 5/325 PO Q6H PRN Pain, Moderate (4-6) Sodium Chloride 10 ml 01/28/19 22:00 02/02/19 09:54 Sodium Chloride Flush Syringe 10 Ml IV 10 ml BID GLEN Administration Sodium Chloride 10 ml 01/28/19 13:01 01/30/19 10:00 Sodium Chloride Flush Syringe 10 Ml IV 10 ml PRN PRN Administration LINE FLUSH Trimethoprim/Sulfamethoxazole 1 each 01/29/19 10:00 02/02/19 09:49 Bactrim Ds PO 1 each QDAY GLEN Administration Voriconazole 200 mg 01/28/19 22:00 02/02/19 11:12 Voriconazole PO 200 mg Q12HR GLEN Administration
[2019-02-02] MEDS: PROAMATINE PO SCH ×2 (17:50→22:03)
--- NOTE | 2019-02-02 19:08 | Progress Note ---
Assessment and Plan Patient is a 43 y/o man w/ a h/o HIV. He presented on 01/29/19 with what was described as a new onset seizure. According to the patient's clinical findings, it is possible that he has had a seizure. Supporting this diagnosis is the fact that he has underlying significant white matter disease L>R on MRI. This has been unchanged since his last MRI in 09/2018. Plan: 1. Seizure: - MRI revealed L>R white matter disease in left parietal region, which is not significantly worsened since last MRI in 09/2018. 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 - ID following. - Discussed with patient regarding taking keppra long-term for seizure prophylaxis, and also discussed side effects, and patient agreed to this. - Informed patient regarding no driving until cleared by DMV/DPS according to his local driving laws, and he agreed to this and accepted it. Also discussed other seizure precautions. - EEG - did not show any epileptiform activity. - Recommend outpatient follow up with neurology for monitoring of seizures and possible PML. 2. HIV: - Continue to treat per ID team. Will sign off. Please call with any questions. Maxim Novak MD Neurology Subjective Date of service: 02/02/19 Principal diagnosis: Seizure Interval history: No acute events overnight. No seizures reported. Objective - Vital Sign Vital Signs - 12hr 02/02/19 02/02/19 02/02/19 12:40 12:41 15:47 Temperature 97.0 F L 98.0 F Pulse Rate 141 H 69 Respiratory 18 59 H Rate Blood Pressure 91/61 96/47 Blood Pressure [Left] O2 Sat by Pulse 92 99 Oximetry 02/02/19 02/02/19 16:46 17:00 Temperature 98.0 F Pulse Rate 59 L Respiratory 18 Rate Blood Pressure Blood Pressure 93/45 92/54 [Left] O2 Sat by Pulse 99 Oximetry - General Apperance Constitutional: comfortable - EENT EENT: ATNC, PERRL, mucous membranes moist, hearing intact, vision intact - Respiratory Respiratory: lungs clear, normal breath sounds - Cardiovascular Cardiovascular: regular rate, normal S1, normal S2 Extremities: no peripheral edema bilat, no clubbing, cyanosis - Gastrointestinal Gastrointestinal: normoactive bowel sounds, soft, non-tender - Integumentary Integumentary: normal - Neurologic Cranial nerve examination: PERRL, EOMI, VFF, V1/V2/V3 grossly intact, face symmetric, tongue midline Speech examination: intact Detailed motor examination: full strength in all jaylan Motor examination - right side: 5/5: biceps, triceps, wrist flexion, wrist extension, apparel cutter, hip flexors, knee extensors, dorsiflexion, toe extension (EHL), plantarflexion Motor examination - left side: 55: biceps, triceps, wrist flexion, wrist extension, apparel cutter, hip flexors, knee extensors, dorsiflexion, toe extension (EHL), plantarflexion Detailed sensory examination: intact, light touch Reflex and gait examination: intact - Musculoskeletal Musculoskeletal: no fluid collection, no pain - Psychiatric Psychiatric: mood/affect appropriate - Laboratory Findings CBC and BMP: 02/01/19 05:08 02/02/19 05:06 Abnormal Lab Findings: Abnormal Labs 01/28/19 01/28/19 01/28/19 08:45 08:45 08:48 WBC 4.4 L RBC Hgb 10.9 L Hct 32.9 L MCHC RDW 15.8 H Lymph # Seg Neutrophils % Seg Neuts % (Manual) Lymphocytes % (Manual) Monocytes % (Manual) Seg Neutrophils # Man Lymphocytes # (Manual) Potassium Chloride Glucose 110 H POC Glucose 115 H AST Ammonia Total Creatine Kinase Albumin HIV-1 RNA PCR copies/ml HIV-1 RNA (PCR) log 01/28/19 01/28/19 01/29/19 09:02 09:02 04:44 WBC RBC 3.50 L Hgb 10.5 L Hct 30.5 L MCHC 35 H RDW 15.3 H Lymph # 0.9 L Seg Neutrophils % 73.0 H Seg Neuts % (Manual) Lymphocytes % (Manual) Monocytes % (Manual) Seg Neutrophils # Man Lymphocytes # (Manual) Potassium Chloride Glucose POC Glucose AST 42 H Ammonia 78.0 H Total Creatine Kinase 215 H Albumin 3.8 L HIV-1 RNA PCR copies/ml HIV-1 RNA (PCR) log 01/29/19 01/30/19 01/30/19 04:44 05:29 05:29 WBC 1.6 L* RBC 3.50 L Hgb 10.2 L Hct 30.4 L MCHC RDW Lymph # Seg Neutrophils % Seg Neuts % (Manual) 71.0 H Lymphocytes % (Manual) Monocytes % (Manual) Seg Neutrophils # Man 1.1 L Lymphocytes # (Manual) 0.4 L Potassium 3.4 L 3.2 L Chloride Glucose POC Glucose AST Ammonia Total Creatine Kinase Albumin 3.7 L HIV-1 RNA PCR copies/ml HIV-1 RNA (PCR) log 01/30/19 01/30/19 01/31/19 05:29 06:51 05:20 WBC 1.8 L* 1.7 L* RBC 3.46 L 3.46 L Hgb 10.2 L 10.2 L Hct 30.2 L 30.2 L MCHC RDW Lymph # Seg Neutrophils % Seg Neuts % (Manual) Lymphocytes % (Manual) Monocytes % (Manual) Seg Neutrophils # Man 1.1 L Lymphocytes # (Manual) 0.4 L Potassium Chloride Glucose POC Glucose AST Ammonia Total Creatine Kinase Albumin HIV-1 RNA PCR copies/ml 142732 H HIV-1 RNA (PCR) log 5.82 H 01/31/19 02/01/19 02/01/19 05:20 05:08 05:08 WBC 1.8 L* RBC 3.00 L Hgb 8.8 L Hct 27.2 L MCHC RDW 15.8 H Lymph # Seg Neutrophils % Seg Neuts % (Manual) Lymphocytes % (Manual) 41.0 H Monocytes % (Manual) 8.0 H Seg Neutrophils # Man 0.9 L Lymphocytes # (Manual) 0.7 L Potassium 3.4 L Chloride Glucose 105 H POC Glucose AST Ammonia 62.0 H Total Creatine Kinase Albumin HIV-1 RNA PCR copies/ml HIV-1 RNA (PCR) log 02/01/19 05:08 WBC RBC Hgb Hct MCHC RDW Lymph # Seg Neutrophils % Seg Neuts % (Manual) Lymphocytes % (Manual) Monocytes % (Manual) Seg Neutrophils # Man Lymphocytes # (Manual) Potassium 3.4 L Chloride 107.4 H Glucose POC Glucose AST Ammonia Total Creatine Kinase Albumin HIV-1 RNA PCR copies/ml HIV-1 RNA (PCR) log
[2019-02-03 06:54] LABS: CD19, Absolute SEE SCANNED RESULT; CD3, Absolute SEE SCANNED RESULT; CD3, Percentage SEE SCANNED RESULT; CD4, Absolute SEE SCANNED RESULT; CD4, Percentage SEE SCANNED RESULT; CD8, Absolute SEE SCANNED RESULT; CD8, Percentage SEE SCANNED RESULT; Lymphocytes, Absolute SEE SCANNED RESULT
[2019-02-03 06:55] LABS: CD4/CD8 Ratio SEE SCANNED RESULT
[2019-02-03] MEDS ORDERED: NACL 0.9% 1000 ML 1,000 ML IV ONE (08:30)
[2019-02-03] MEDS: KEPPRA PO SCH (09:36)
[2019-02-03] MEDS: PROAMATINE PO SCH ×2 (09:36→14:31)
[2019-02-03] MEDS: BACTRIM DS PO SCH (09:37)
[2019-02-03] MEDS: NON-FORMULARY (Darunavir/Cobicistat (Nf) 1 EACH) PO SCH (09:40)
[2019-02-03] MEDS: TENOFOV ALAFENAM PO SCH (09:41)
[2019-02-03] MEDS: RILPIVIRINE 25 MG PO SCH (09:41)
[2019-02-03] MEDS: EMTRICITABINE PO SCH (09:41)
[2019-02-03] MEDS: SODIUM CHLORIDE FLUSH SYRINGE 10 ML IV SCH (09:42)
[2019-02-03] MEDS: VORICONAZOLE PO SCH (09:43)
--- NOTE | 2019-02-03 16:53 | Discharge Summary ---
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 2.Follow up with Neurologist in 1 week 3.Follow up with [facility] in 1 week. Follow up with: PRIMARY CARE, [Primary Care Provider] - 3-5 Days Prescriptions: Sulfamethoxazole/Trimethoprim [Bactrim DS TAB] 1 each PO QDAY 30 Days #30 tablet levETIRAcetam [Keppra TAB] 500 mg PO BID #60 tablet Nystatin [Nystatin SUSP] 10 ml PO BID 30 Days #120 ml Midodrine [Proamatine] 5 mg PO TID #90 tablet Voriconazole 200 mg PO BID 30 Days #60 tablet Azithromycin [Zithromax TAB] 1,200 mg PO QWEEK 30 Days #4 tablet
[2019-02-03 19:04] VITALS: BP 128/85
[2019-02-03] MEDS ORDERED: NYSTATIN PO SCH (22:00)
[2019-02-04] MEDS ORDERED: ZITHROMAX PO SCH (10:00)
== END 2019-02-03 19:42 | disposition home or self-care (01) | DRG 974 ==
LOC: ED 08:18 → 3A 13:01
PROVIDERS: ADMIT Internal Medicine; ATTEND Internal Medicine
DX: B20 Human immunodeficiency virus [HIV] disease (principal); G93.40 Encephalopathy, unspecified; E43 Unspecified severe protein-calorie malnutrition; G40.909 Epilepsy, unspecified, not intractable, without status epilepticus; R65.10 Systemic inflammatory response syndrome (SIRS) of non-infectious origin without acute organ dysfunction; B37.0 Candidal stomatitis; D63.8 Anemia in other chronic diseases classified elsewhere; E72.20 Disorder of urea cycle metabolism, unspecified; E87.6 Hypokalemia; I95.9 Hypotension, unspecified; Z68.27 Body mass index [BMI] 27.0-27.9, adult
CPT/HCPCS: 36415; 70450; 70553; 71045; 80048; 80053; 80076; 82024; 82140; 82550; 82553; 82962; 83735; 83880; 84132; 84484; 85007; 85025; 85027; 85610; 85730; 87040; 87536; 93005; 93010; 95819; 96365; 96368; 96375; G0378; J0696; J1953; J2060; J7030

== ENCOUNTER 2019-03-09 15:17 | Inpatient (IN) | payer MEDICAID ==
--- NOTE | 2019-03-09 15:29 | Emergency Department Report ---
ED Seizure HPI - General Stated Complaint: SYNCOPY/UNRESPONSIVE Time Seen by Provider: 03/09/19 15:17 Source: EMS Mode of arrival: Stretcher Limitations: Altered Mental Status - History of Present Illness Initial Comments: Patient is a 43-year-old male patient presents emergency room unresponsive and seizure activity. Patient is ahistory of seizure. Report received from EMS. EMS states the patient was walking in front of [place] and started feeling sick and began having a seizure. Patient fell and hit his head and sustained a abrasion to his temporal region. Patient started seizing again in the presence of EMS and EMS gave the patient 2.5 mg of Versed. Therefore 5 mg of Versed stop the patient from seizing. MD Complaint: seizure -: Sudden Description of Episode: loss of consciousness, tonic-clonic movement -: second(s) Witnessed:: Yes Trauma: Yes Seizure History: known seizure disorder Place: street/outdoors Possible Precipitating Event: none Treatments Prior to Arrival: benzodiazepines - Related Data Home Medications Medication Instructions Recorded Confirmed Last Taken Darunavir/Cobicistat (Nf) 1 each PO DAILY 01/28/19 01/28/19 Unknown [Prezcobix 800 mg-150 mg (Nf)] Emtricitabine/Tenofov Alafenam 1 each PO DAILY 01/28/19 01/28/19 Unknown [Descovy 200-25 mg (Nf)] Flaxseed Oil 1,000 mg PO DAILY 01/28/19 01/28/19 Unknown Rilpivirine (Nf) [Edurant (Nf)] 25 mg PO QDAY 01/28/19 01/28/19 Unknown Voriconazole [Vfend] 200 mg PO Q12H 01/28/19 01/28/19 Unknown Previous Rx's Medication Instructions Recorded Last Taken Type Sulfamethoxazole/Trimethoprim 1 each PO QDAY 30 Days #30 tablet 07/23/18 Unknown Rx [Bactrim DS TAB] Azithromycin [Zithromax TAB] 1,200 mg PO QWEEK 30 Days #4 tablet 02/01/19 Unknown Rx Nystatin [Nystatin SUSP] 10 ml PO BID 30 Days #120 ml 02/01/19 Unknown Rx Sulfamethoxazole/Trimethoprim 1 each PO QDAY 30 Days #30 tablet 02/01/19 Unknown Rx [Bactrim DS TAB] Voriconazole 200 mg PO BID 30 Days #60 tablet 02/01/19 Unknown Rx Midodrine [Proamatine] 5 mg PO TID #90 tablet 02/03/19 Unknown Rx levETIRAcetam [Keppra TAB] 500 mg PO BID #60 tablet 02/03/19 Unknown Rx Allergies Allergy/AdvReac Type Severity Reaction Status Date / Time No Known Allergies Allergy Verified 07/18/18 14:08 ED Review of Systems ROS: Stated complaint: SYNCOPY/UNRESPONSIVE Other details as noted in HPI Comment: Unobtainable due to pts medical conditions ED Past Medical Hx - Past Medical History Previous Medical History?: Yes Hx Congestive Heart Failure: No Hx Diabetes: No Hx Deep Vein Thrombosis: No Hx Seizures: Yes Hx Asthma: No Hx COPD: No Hx Tuberculosis: No Hx HIV: Yes - Surgical History Past Surgical History?: No Hx Pacemaker: No Hx Internal Defibrillator: No - Family History Family history: no significant - Social History Smoking Status: Never Smoker Substance Use Type: None - Medications Home Medications: Home Medications Medication Instructions Recorded Confirmed Last Taken Type Sulfamethoxazole/Trimethoprim 1 each PO QDAY 30 Days #30 tablet 07/23/1801/28 Unknown Rx [Bactrim DS TAB] Darunavir/Cobicistat (Nf) 1 each PO DAILY 01/28/19 01/28/19 Unknown History [Prezcobix 800 mg-150 mg (Nf)] Emtricitabine/Tenofov Alafenam 1 each PO DAILY 01/28/19 01/28/19 Unknown History [Descovy 200-25 mg (Nf)] Flaxseed Oil 1,000 mg PO DAILY 01/28/19 01/28/19 Unknown History Rilpivirine (Nf) [Edurant (Nf)] 25 mg PO QDAY 01/28/19 01/28/19 Unknown History Voriconazole [Vfend] 200 mg PO Q12H 01/28/19 01/28/19 Unknown History Azithromycin [Zithromax TAB] 1,200 mg PO QWEEK 30 Days #4 tablet 02/01/19 Unknown Rx Nystatin [Nystatin SUSP] 10 ml PO BID 30 Days #120 ml 02/01/19 Unknown Rx Sulfamethoxazole/Trimethoprim 1 each PO QDAY 30 Days #30 tablet 02/01/19 Unknown Rx [Bactrim DS TAB] Voriconazole 200 mg PO BID 30 Days #60 tablet 02/01/19 Unknown Rx Midodrine [Proamatine] 5 mg PO TID #90 tablet 02/03/19 Unknown Rx levETIRAcetam [Keppra TAB] 500 mg PO BID #60 tablet 02/03/19 Unknown Rx ED Physical Exam - General Limitations: Altered Mental Status General appearance: lethargic - Head Head exam: Present: other (right temporal abrasion.) - Eye Eye exam: Present: normal appearance, PERRL Pupils: Present: normal accommodation - ENT ENT exam: Present: mucous membranes dry - Neck Neck exam: Present: normal inspection. Absent: tenderness - Respiratory Respiratory exam: Present: normal lung sounds bilaterally. Absent: respiratory distress, wheezes, rales - Cardiovascular Cardiovascular Exam: Present: regular rate, normal rhythm. Absent: systolic murmur, diastolic murmur, rubs, gallop - GI/Abdominal GI/Abdominal exam: Present: soft, normal bowel sounds - Rectal Rectal exam: Present: deferred - Extremities Exam Extremities exam: Present: normal inspection - Back Exam Back exam: Present: normal inspection - Neurological Exam Neurological exam: Present: altered - Expanded Neurological Exam Expanded Best Eye Response (Shiloh): (3) open to voice Best Motor Response (Ignacio): (5) localizes to pain Best Verbal Response (Ignacio): (2) incomprehsible sounds [place] Total: 10 - Skin Skin exam: Present: warm, dry, normal color, abrasion. Absent: rash ED Course Vital Signs 03/09/19 03/09/19 03/09/19 15:17 17:10 20:00 Temperature 99.9 F H Pulse Rate 105 H 85 104 H Respiratory 14 18 18 Rate Blood Pressure 121/72 Blood Pressure 119/75 117/72 [Left] O2 Sat by Pulse 97 99 99 Oximetry 03/09/19 03/09/19 03/09/19 20:10 20:20 21:00 Temperature Pulse Rate 83 78 Respiratory 22 16 20 Rate Blood Pressure 102/67 117/72 Blood Pressure [Left] O2 Sat by Pulse 99 97 Oximetry 03/09/19 03/09/19 03/09/19 22:00 22:52 23:00 Temperature 100.1 F H Pulse Rate 90 81 Respiratory 13 23 Rate Blood Pressure 112/69 100/63 Blood Pressure [Left] O2 Sat by Pulse 96 96 Oximetry 03/10/19 00:31 Temperature 100.1 F H Pulse Rate 77 Respiratory 14 Rate Blood Pressure Blood Pressure 106/77 [Left] O2 Sat by Pulse 97 Oximetry - Reevaluation(s) Reevaluation #1: Initial evaluation done. Patient found to have abrasions and possible head injury. Patient will have a CT of the head done. Patient will have labs done. 03/09/19 15:05 Reevaluation #2: Patient awake alert and oriented. Patient answering questions appropriately. Patient's mother is at bedside. Patient's CT is pending 03/09/19 18:23 Reevaluation #3: I discussed all results with patient. I discussed plan of care with patient. Patient will be admitted to the hospitalist service. Patient agrees with plan of care. 03/09/19 20:24 - Consultations Consultation #1: Hospitalist consult for admission. Hospitalist to admit patient. 03/09/19 20:24 ED Medical Decision Making - Lab Data Result diagrams: 03/09/19 15:37 03/09/19 15:37 - EKG Data -: EKG Interpreted by Ny EKG shows normal: sinus rhythm, axis, intervals, QRS complexes, ST-T waves Rate: tachycardia - Radiology Data Radiology results: report reviewed CT MAXILLOFACIAL WITHOUT CONTRAST INDICATION / CLINICAL INFORMATION: sz. facial trauma. head injury. TECHNIQUE: All CT scans at this location are performed using CT dose reduction for ALARA by means of automated exposure control. COMPARISON: None available. FINDINGS: Limitations: Patient was scanned in an oblique position with the patient's head turned to the left. FACIAL BONES: No fracture or other significant abnormality. PARANASAL SINUSES: Mild mucosal thickening is present within several ethmoid air cells as well as in both maxillary sinuses. Retention cyst or polyp may be present in a hypoplastic left sphenoid sinus. No air-fluid levels are seen. Frontal and right sphenoid sinuses appear clear. NASAL CAVITY:No abnormality. ORBITS: No significant abnormality. TEMPORAL BONES: Abnormal soft tissue attenuation is present in the external auditory canals bilaterally. This could be secondary to cerumen. Correlation with otoscopic evaluation is suggested to exclude the presence of cerumen versus foreign bodies in the external auditory canals. ORAL CAVITY: Multiple dental caries are demonstrated. SUPRAHYOID NECK : Ossification of the stylohyoid ligaments is noted bilaterally. VISUALIZED INTRACRANIAL STRUCTURES: No significant abnormality. IMPRESSION: 1. No indication of facial fracture. CT HEAD WITHOUT CONTRAST INDICATION / CLINICAL INFORMATION: Seizure. TECHNIQUE: All CT scans at this location are performed using CT dose reduction for ALARA by means of automated exposure control. COMPARISON: Head CT examinations dated 01/28/2019 and 09/04/2018. MRI brain 01/31/2019. FINDINGS: HEMORRHAGE: No evidence of intracranial hemorrhage or extra-axial fluid collecti on. EXTRA-AXIAL SPACES: Cortical sulci and sylvian fissures are enlarged reflecting a degree of parenchymal volume loss which is greater than expected for the patient's age of 43 years. Basilar cisterns have an unremarkable appearance. VENTRICULAR SYSTEM: The third and lateral ventricles are enlarged reflecting the presence of parenchymal volume loss which is greater than expected for the patient's age of 43 years. CEREBRAL PARENCHYMA: Periventricular and deep white matter lucency is observed. This is most pronounced adjacent to the lateral aspect of the atria and occipital horn of the left lateral ventricle. These findings may reflect premature microvascular ischemic change. Similar findings were present on previous studies. MIDLINE SHIFT OR HERNIATION: There is no mass effect. CEREBELLUM / BRAINSTEM: Brainstem and cerebellum have an unremarkable appearance. INTRACRANIAL VESSELS:Calcified atherosclerotic plaque is present along the course of the cavernous segments of both internal carotid arteries. Similar findings are seen at the distal vertebral arteries. ORBITS: visualized portions of the orbits have an unremarkable appearance. SOFT TISSUES of HEAD: No significant abnormality. CALVARIUM: Evaluation of bone windows reveals no abnormalities. PARANASAL SINUSES / MASTOID AIR CELLS: Paranasal sinuses are free from inflammatory mucosal disease. Mastoid air cells are predominantly pneumatized with only mild inflammatory change in the air cells the left mastoid tip.. IMPRESSION: 1. Parenchymal volume loss greater than expected for age 43 years. 2. No acute intracranial abnormality. No interval change. CT CERVICAL SPINE WITHOUT CONTRAST INDICATION / CLINICAL INFORMATION: Seizure. Neck injury. TECHNIQUE: Axial CT images were obtained through the cervical spine. Sagittal and coronal reformatted images were produced. All CT scans at this location are performed using CT dose reduction for ALARA by means of automated exposure control. COMPARISON: None available. FINDINGS: ALIGNMENT: Patient's head is tilted towards the right of the time of this study. No additional abnormalities of alignment are identified. There is no indication of traumatic subluxation. VERTEBRAE: No indication of fracture. DISC SPACES: Loss of disc height is noted at the C5-6 level. Disc height is fairly well maintained elsewhere. INDIVIDUAL LEVEL ANALYSIS: C2-3: No abnormality. C3-4: No abnormality. C4-5: No abnormality. C5-6: Loss of disc height is noted. Anterior osteophyte formation is observed. Small left paracentral disc protrusion is noted. Central spinal canal and neuroforamina are adequately maintained. C6-7: No abnormality. C7-T1: No abnormality. CRANIOCERVICAL JUNCTION:No significant abnormality. SPINAL CANAL: No significant abnormality. PARASPINAL SOFT TISSUES: A small pocket of gas situated between the piriform sinus and sphenoid bone on the right may represent a small pharyngeal seal. LUNG APICES: No significant abnormality of visualized lungs. IMPRESSION: 1. No indication of fracture or traumatic subluxation. 2. Mild degenerative changes C5-6. - Medical Decision Making Patient is a 43-year-old male that presents emergency room with a fall, patient and head trauma and multiple seizures. Patient was given Versed by EMS to stop the seizures. Patient was lethargic but able to answer some questions on initi al evaluation. Patient improved over time. Patient will be admitted to the hospitalist service. Patient's labs unremarkable except for anemia and hypokalemia. Patient's had a head CT, face spiral CT due to the patient's clinical situation and the fall and trauma. All the CTs were negative for acute findings. Patient will require further neurologic workup and EEG as an inpatient. Patient given Keppra 1 gram IV. - Differential Diagnosis seizure. Uncontrolled seizures. Head injury. Facial trauma. Abrasion. Critical Care Time: Yes Critical care attestation.: If time is entered above; I have spent that time in minutes in the direct care of this critically ill patient, excluding procedure time. Critical Care Time: 35 minutes ED Disposition Clinical Impression: New onset seizure, Seizure, Cocaine use, Status epilepticus Head injury Qualifiers: Encounter type: initial encounter Qualified Code(s): S09.90XA - Unspecified injury of head, initial encounter Facial trauma Qualifiers: Encounter type: initial encounter Qualified Code(s): S09.93XA - Unspecified injury of face, initial encounter Facial abrasion Qualifiers: Encounter type: initial encounter Qualified Code(s): S00.81XA - Abrasion of other part of head, initial encounter Uncontrolled seizures Qualifiers: Convulsion type: unspecified Qualified Code(s): R56.9 - Unspecified convulsions Disposition: DC-09 OP ADMIT IP TO THIS HOSP Is pt being admited?: Yes Does the pt Need Aspirin: No Condition: Critical Time of Disposition: 20:26
[2019-03-09] MEDS ORDERED: SODIUM CHLORIDE 0.9% 1000 ML 1,000 ML IV ONE (15:30)
[2019-03-09] MEDS ORDERED: levETIRAcetam 1000 MG/NS 0.75% 1,000 MG/100 ML BAG IV ONE (15:30)
[2019-03-09 15:49] LABS: Basophils % (Auto) 0.2 % (0.0-1.8); Eosinophils % (Auto) 0.5 % (0.0-4.3); Hematocrit 29.8 % (35.5-45.6); Hemoglobin 9.6 gm/dl (11.8-15.2); Lymphocytes # (Auto) 0.7 K/mm3 (1.2-5.4); Lymphocytes % (Auto) 23.4 % (13.4-35.0); Mean Corpuscular HGB Conc 32 % (32-34); Mean Corpuscular Volume 89 fl (84-94); Monocytes # (Auto) 0.3 K/mm3 (0.0-0.8); Monocytes % (Auto) 8.4 % (0.0-7.3); Platelet Count 247 K/mm3 (140-440); Red Blood Count 3.36 M/mm3 (3.65-5.03); Red Cell Distribution Width 16.9 % (13.2-15.2)
[2019-03-09 16:08] LABS: Alanine Aminotransferase 18 units/L (7-56); Albumin 3.7 g/dL (3.9-5); BUN/Creatinine Ratio 5; Blood Urea Nitrogen 6 mg/dL (9-20); Calcium 8.2 mg/dL (8.4-10.2); Hemolysis Index 15
[2019-03-09 16:19] LABS: Amphetamine Screen,Urine PRESUMPTIVE NEGATIVE; Cannabinoid Screen,Urine PRESUMPTIVE NEGATIVE; Methadone Screen,Urine PRESUMPTIVE NEGATIVE; Opiate Screen,Urine PRESUMPTIVE NEGATIVE
[2019-03-09 16:33] LABS: Bilirubin,Urine Negative (Negative); Blood,Urine Negative (Negative); Color,Urine Straw (Yellow); Urobilinogen,Urine < 2.0 mg/dL (<2.0)
[2019-03-09 16:34] LABS: Mucus,Urine Few /HPF; WBC,Urine < 1.0 /HPF (0.0-6.0)
[2019-03-09 16:36] LABS: Benzodiazepines Screen,Urine PRESUMPTIVE POSITIVE; Cocaine Screen,Urine PRESUMPTIVE POSITIVE
--- NOTE | 2019-03-09 19:02 | Cat Scan Report ---
CT HEAD WITHOUT CONTRAST INDICATION / CLINICAL INFORMATION: Seizure. TECHNIQUE: All CT scans at this location are performed using CT dose reduction for ALARA by means of automated e xposure control. COMPARISON: Head CT examinations dated 01/28/2019 and 09/04/2018. MRI brain 01/31/2019. FINDINGS: HEMORRHAGE: No evidence of intracranial hemorrhage or extra-axial fluid collection. EXTRA-AXIAL SPACES: Cortical sulci and sylvian fissures are enlarged reflecting a degree of parenchym al volume loss which is greater than expected for the patient's age of 43 years. Basilar cisterns hav e an unremarkable appearance. VENTRICULAR SYSTEM: The third and lateral ventricles are enlarged reflecting the presence of parenchy mal volume loss which is greater than expected for the patient's age of 43 years. CEREBRAL PARENCHYMA: Periventricular and deep white matter lucency is observed. This is most pronounc ed adjacent to the lateral aspect of the atria and occipital horn of the left lateral ventricle. Thes e findings may reflect premature microvascular ischemic change. Similar findings were present on prev ious studies. MIDLINE SHIFT OR HERNIATION: There is no mass effect. CEREBELLUM / BRAINSTEM: Brainstem and cerebellum have an unremarkable appearance. INTRACRANIAL VESSELS:Calcified atherosclerotic plaque is present along the course of the cavernous se gments of both internal carotid arteries. Similar findings are seen at the distal vertebral arteries. ORBITS: visualized portions of the orbits have an unremarkable appearance. SOFT TISSUES of HEAD: No significant abnormality. CALVARIUM: Evaluation of bone windows reveals no abnormalities. PARANASAL SINUSES / MASTOID AIR CELLS: Paranasal sinuses are free from inflammatory mucosal disease. Mastoid air cells are predominantly pneumatized with only mild inflammatory change in the air cells t he left mastoid tip.. IMPRESSION: 1. Parenchymal volume loss greater than expected for age 43 years. 2. No acute intracranial abnormality. No interval change. Signer Name: Ari Mathwes MD Signed: 03/09/2019 6:58 PM Workstation Name: [id number]
--- NOTE | 2019-03-09 19:39 | Cat Scan Report ---
CT MAXILLOFACIAL WITHOUT CONTRAST INDICATION / CLINICAL INFORMATION: sz. facial trauma. head injury. TECHNIQUE: All CT scans at this location are performed using CT dose reduction for ALARA by means of automated e xposure control. COMPARISON: None available. FINDINGS: Limitations: Patient was scanned in an oblique position with the patient's head turned to the left. FACIAL BONES: No fracture or other significant abnormality. PARANASAL SINUSES: Mild mucosal thickening is present within several ethmoid air cells as well as in both maxillary sinuses. Retention cyst or polyp may be present in a hypoplastic left sphenoid sinus. No air-fluid levels are seen. Frontal and right sphenoid sinuses appear clear. NASAL CAVITY:No abnormality. ORBITS: No significant abnormality. TEMPORAL BONES: Abnormal soft tissue attenuation is present in the external auditory canals bilateral ly. This could be secondary to cerumen. Correlation with otoscopic evaluation is suggested to exclude the presence of cerumen versus foreign bodies in the external auditory canals. ORAL CAVITY: Multiple dental caries are demonstrated. SUPRAHYOID NECK : Ossification of the stylohyoid ligaments is noted bilaterally. VISUALIZED INTRACRANIAL STRUCTURES: No significant abnormality. IMPRESSION: 1. No indication of facial fracture. Signer Name: Ari Mathews MD Signed: 03/09/2019 7:34 PM Workstation Name: [id number]
--- NOTE | 2019-03-09 19:44 | Cat Scan Report ---
CT CERVICAL SPINE WITHOUT CONTRAST INDICATION / CLINICAL INFORMATION: Seizure. Neck injury. TECHNIQUE: Axial CT images were obtained through the cervical spine. Sagittal and coronal reformatted images wer e produced. All CT scans at this location are performed using CT dose reduction for ALARA by means of automated exposure control. COMPARISON: None available. FINDINGS: ALIGNMENT: Patient's head is tilted towards the right of the time of this study. No additional abnorm alities of alignment are identified. There is no indication of traumatic subluxation. VERTEBRAE: No indication of fracture. DISC SPACES: Loss of disc height is noted at the C5-6 level. Disc height is fairly well maintained el sewhere. INDIVIDUAL LEVEL ANALYSIS: C2-3: No abnormality. C3-4: No abnormality. C4-5: No abnormality. C5-6: Loss of disc height is noted. Anterior osteophyte formation is observed. Small left paracentral disc protrusion is noted. Central spinal canal and neuroforamina are adequately maintained. C6-7: No abnormality. C7-T1: No abnormality. CRANIOCERVICAL JUNCTION:No significant abnormality. SPINAL CANAL: No significant abnormality. PARASPINAL SOFT TISSUES: A small pocket of gas situated between the piriform sinus and sphenoid bone on the right may represent a small pharyngeal seal. LUNG APICES: No significant abnormality of visualized lungs. IMPRESSION: 1. No indication of fracture or traumatic subluxation. 2. Mild degenerative changes C5-6. Signer Name: rAi Mathews MD Signed: 03/09/2019 7:40 PM Workstation Name: [id number]
--- NOTE | 2019-03-09 23:55 | History and Physical Report ---
History of Present Illness Date of examination: 03/09/19 History of present illness: 43-year-old man with a history of seizure, HIV on HAART but only takes his HAART medicines sometimes this emergency room because he had a seizure, hit his head. He was brought to the emergency room where he had another seizure the emergency room which was aborted with versed. Develop a fever while he was here. He was admitted last month for new onset seizures started on Keppra eieview Of Systems: Constitutional: no weight loss, chills Ears, eyes, nose, mouth and throat: no nasal congestion, no nasal discharge, no sinus pressure, blurry vision, diplopia Neck: No neck pain or rigidity. Cardiovascular: No palpitations, chest pain Respiratory: No shortness of breath, cough Gastrointestinal: No hematochezia, abdominal pain Genitourinary : no dysuria, frequency , hematuria Musculoskeletal: no muscle ache , joint pain Integumentary: no rash, no pruritis Neurological: no parathesias, focal weakness Endocrine: no cold or heat intolerance, no polyuria or polydipsia Hematologic/Lymphatic: no easy bruising, no easy bleeding, no gland swelling Allergic/Immunologic: no urticaria, no angioedema PAST MEDICAL HISTORY:seizure, HIV PAST SURGICAL HISTORY: None FAMILY HISTORY:hypertension, diabetes SOCIAL HISTORY: + tobacco, urine positive for cocaine, alcohol Medications and Allergies Allergies Allergy/AdvReac Type Severity Reaction Status Date / Time No Known Allergies Allergy Verified 07/18/18 14:08 Home Medications Medication Instructions Recorded Confirmed Last Taken Type Sulfamethoxazole/Trimethoprim 1 each PO QDAY 30 Days #30 tablet 07/23/18 01/28/19 Unknown Rx [Bactrim DS TAB] Darunavir/Cobicistat (Nf) 1 each PO DAILY 01/28/19 01/28/19 Unknown History [Prezcobix 800 mg-150 mg (Nf)] Emtricitabine/Tenofov Alafenam 1 each PO DAILY 01/28/19 01/28/19 Unknown History [Descovy 200-25 mg (Nf)] Flaxseed Oil 1,000 mg PO DAILY 01/28/19 01/28/19 Unknown History Rilpivirine (Nf) [Edurant (Nf)] 25 mg PO QDAY 01/28/19 01/28/19 Unknown History Voriconazole [Vfend] 200 mg PO Q12H 01/28/19 01/28/19 Unknown History Azithromycin [Zithromax TAB] 1,200 mg PO QWEEK 30 Days #4 tablet 02/01/19 Unknown Rx Nystatin [Nystatin SUSP] 10 ml PO BID 30 Days #120 ml 02/01/19 Unknown Rx Sulfamethoxazole/Trimethoprim 1 each PO QDAY 30 Days #30 tablet 02/01/19 Unknown Rx [Bactrim DS TAB] Voriconazole 200 mg PO BID 30 Days #60 tablet 02/01/19 Unknown Rx Midodrine [Proamatine] 5 mg PO TID #90 tablet 02/03/19 Unknown Rx levETIRAcetam [Keppra TAB] 500 mg PO BID #60 tablet 02/03/19 Unknown Rx Exam - Physical Exam Narrative exam: General Apperance: The patient sitting in bed no acute distress HEENT: Normocephalic, abrasion on face. Pupils equally round and reactive to light, extraocular movement intact, and no sclericterus or JVD or thyromegaly or nodule. Neck supple, no carotid bruit, mucous membranes moist, no exudate or erythema Heart: S1-S2, regular is rhythm Lungs: Clear to auscultation bilaterally, breathing comfortable Abdomen: Positive bowel sounds, soft, nontender, nondistended, no organomegaly Extremities: No edema cyanosis clubbing Skin: no rash, nodule, warm and dry Neuro:CN 2 -12 intact, motor/sensory intact, speech is fluent - Constitutional Vitals: Temp Pulse Resp BP Pulse Ox 100.1 F H 104 H 16 117/72 99 03/09/19 22:52 03/09/19 20:00 03/09/19 20:20 03/09/19 20:00 03/09/19 20:20 Results - Labs CBC & Chem 7: 03/09/19 15:37 03/09/19 15:37 Labs: Abnormal lab results 03/09/19 03/09/19 Range/Units 15:37 15:37 WBC 3.1 L (4.5-11.0) K/mm3 RBC 3.36 L (3.65-5.03) M/mm3 Hgb 9.6 L (11.8-15.2) gm/dl Hct 29.8 L (35.5-45.6) % RDW 16.9 H (13.2-15.2) % [place] % (Auto) 8.4 H (0.0-7.3) % Lymph # 0.7 L (1.2-5.4) K/mm3 Potassium 3.5 L (3.6-5.0) mmol/L Chloride 108.2 H (98-107) mmol/L BUN 6 L (9-20) mg/dL Glucose 136 H (75-100) mg/dL Calcium 8.2 L (8.4-10.2) mg/dL Albumin 3.7 L (3.9-5) g/dL - Imaging and Cardiology CT Scan - head: report reviewed Assessment and Plan CT face and C-spine to reviewed Assessment Acute on chronic seizure SIRS hiv Plan Admit to medicine Status post loading dose of Keppra, continue Keppra IV Ativan as needed for breakthrough seizure Obtain blood cultures, chest x-ray, start Rocephin Neurology, infectious disease consult DVT prophylaxis
--- NOTE | 2019-03-10 00:22 | XRay Report ---
CHEST 1 VIEW 03/10/2019 12:09 AM INDICATION / CLINICAL INFORMATION: fever, hiv. COMPARISON: 01/28/19 FINDINGS: SUPPORT DEVICES: None. HEART / MEDIASTINUM: No significant abnormality. LUNGS / PLEURA: Scarring at the left lung base is unchanged. No acute airspace disease. No pneumothor ax. ADDITIONAL FINDINGS: No significant additional findings. IMPRESSION: 1. No acute findings. No significant change. Signer Name: Samy Huerta MD Signed: 03/10/2019 12:18 AM Workstation Name: [id number]
[2019-03-10] MEDS ORDERED: ONDANSETRON 4 MG/2 ML INJ IV PRN (01:12)
[2019-03-10] MEDS ORDERED: ACETAMINOPHEN 325 MG TAB PO PRN (01:12)
[2019-03-10] MEDS: cefTRIAXone/NS 2 GM/100 ML 2 GM/100 ML BAG IV SCH (02:56)
[2019-03-10] MEDS: SODIUM CHLORIDE 0.9% 1000 ML 1,000 ML IV SCH ×2 (02:56→18:17)
[2019-03-10] MEDS ORDERED: LORazepam 2 MG/ML VIAL IV PRN (04:40)
[2019-03-10 05:22] LABS: Basophils % (Auto) 0.1 % (0.0-1.8); Eosinophils % (Auto) 0.1 % (0.0-4.3); Hematocrit 29.3 % (35.5-45.6); Hemoglobin 9.6 gm/dl (11.8-15.2); Lymphocytes # (Auto) 0.9 K/mm3 (1.2-5.4); Lymphocytes % (Auto) 12.8 % (13.4-35.0); Mean Corpuscular HGB Conc 33 % (32-34); Mean Corpuscular Volume 87 fl (84-94); Monocytes # (Auto) 0.4 K/mm3 (0.0-0.8); Monocytes % (Auto) 5.7 % (0.0-7.3); Platelet Count 236 K/mm3 (140-440); Red Blood Count 3.36 M/mm3 (3.65-5.03); Red Cell Distribution Width 16.5 % (13.2-15.2)
[2019-03-10 05:35] LABS: BUN/Creatinine Ratio 7; Blood Urea Nitrogen 8 mg/dL (9-20); Calcium 8.5 mg/dL (8.4-10.2); Hemolysis Index 1
--- NOTE | 2019-03-10 07:44 | Progress Note ---
Assessment and Plan Assessment and plan: 43-year-old man with past medical history of seizure disorder, HIV on retroviral's, admits to poor adherence to retroviral medications. . Patient was walking from [place], started feeling sick and having some prodrome after which she had a seizure and hit his head had an abrasion to the temporal region. He was found seizing by the EMS, he received Versed by EMS after which the seizures stopped. CT head; parenchymal volume loss greater than expected for age, no acute findings CT C-spine, no fracture subluxation new Chest x-ray negative Face CT negative Labs, mild anemia, hemoglobin 9.6, U tox positive for cocaine, UA negative Diagnosis Status epilepticus HIV Nonadherence to medications Cocaine abuse Plan EEG, neurology consult, continue Keppra, doubt patient is adherent to his AED Obtain an viral load and see CD4 count, continue retroviral meds and meds for prophylaxis for opportunistic organisms Preventative health counseling performed for 17 minutes, counseled about drug cessation DVT prophylaxis early ambulation History Interval history: Review of systems Constitutional: No fevers, no malaise, no joint pains CVS: No chest pain, no orthopnea, no pedal edema GI: No abdominal pain, no diarrhea, no vomiting, no constipation Respiratory: No shortness of breath, no wheezing, no coughing Hospitalist Physical - Physical exam Narrative exam: General.: Appears well, no distress, nontoxic HEENT: Moist mucous membranes, extraocular muscles intact, no lymphadenopathy Neck: supple Cardiac: S1-S2 heard Lungs: clear to auscultation bilaterally Abdomen: soft , nontender, nondistended, bowel sounds positive Extremities: no edema clubbing or cyanosis Skin: no rash or lesions Neurologic: no gross focal deficits Psych: calm, and cooperative - Constitutional Vitals: Temp Pulse Resp BP Pulse Ox 99.5 F 66 16 106/71 96 03/10/19 05:15 03/10/19 05:15 03/10/19 05:15 03/10/19 05:15 03/10/19 05:15 Results - Labs CBC & Chem 7: 03/10/19 04:35 03/10/19 04:35 Labs: Laboratory Last Values WBC 7.0 K/mm3 (4.5-11.0) 03/10/19 04:35 RBC 3.36 M/mm3 (3.65-5.03) L 03/10/19 04:35 Hgb 9.6 gm/dl (11.8-15.2) L 03/10/19 04:35 Hct 29.3 % (35.5-45.6) L 03/10/19 04:35 MCV 87 fl (84-94) 03/10/19 04:35 MCH 29 pg (28-32) 03/10/19 04:35 MCHC 33 % (32-34) 03/10/19 04:35 RDW 16.5 % (13.2-15.2) H 03/10/19 04:35 Plt Count 236 K/mm3 (140-440) 03/10/19 04:35 Lymph % (Auto) 12.8 % (13.4-35.0) L 03/10/19 04:35 [place] % (Auto) 5.7 % (0.0-7.3) 03/10/19 04:35 Eos % (Auto) 0.1 % (0.0-4.3) 03/10/19 04:35 Baso % (Auto) 0.1 % (0.0-1.8) 03/10/19 04:35 Lymph # 0.9 K/mm3 (1.2-5.4) L 03/10/19 04:35 [place] # 0.4 K/mm3 (0.0-0.8) 03/10/19 04:35 Eos # 0.0 K/mm3 (0.0-0.4) 03/10/19 04:35 Baso # 0.0 K/mm3 (0.0-0.1) 03/10/19 04:35 Seg Neutrophils % 81.3 % (40.0-70.0) H 03/10/19 04:35 Seg Neutrophils # 5.7 K/mm3 (1.8-7.7) 03/10/19 04:35 Sodium 142 mmol/L (137-145) 03/10/19 04:35 Potassium 3.8 mmol/L (3.6-5.0) 03/10/19 04:35 Chloride 105.5 mmol/L (98-107) 03/10/19 04:35 Carbon Dioxide 25 mmol/L (22-30) 03/10/19 04:35 Anion Gap 15 mmol/L 03/10/19 04:35 BUN 8 mg/dL (9-20) L 03/10/19 04:35 Creatinine 1.2 mg/dL (0.8-1.5) 03/10/19 04:35 Estimated GFR > 60 ml/min 03/10/19 04:35 BUN/Creatinine Ratio 7 % 03/10/19 04:35 Glucose 85 mg/dL (75-100) 03/10/19 04:35 Calcium 8.5 mg/dL (8.4-10.2) 03/10/19 04:35 Total Bilirubin 0.20 mg/dL (0.1-1.2) 03/09/19 15:37 AST 28 units/L (5-40) 03/09/19 15:37 ALT 18 units/L (7-56) 03/09/19 15:37 Alkaline Phosphatase 114 units/L (35-129) 03/09/19 15:37 Total Protein 7.3 g/dL (6.3-8.2) 03/09/19 15:37 Albumin 3.7 g/dL (3.9-5) L 03/09/19 15:37 Albumin/Globulin Ratio 1.0 % 03/09/19 15:37 Urine Color Straw (Yellow) 03/09/19 15:52 Urine Turbidity Clear (Clear) 03/09/19 15:52 Urine pH 6.0 (5.0-7.0) 03/09/19 15:52 Ur Specific [place] 1.010 (1.003-1.030) 03/09/19 15:52 Urine Protein 30 mg/dl mg/dL (Negative) 03/09/19 15:52 Urine Glucose (UA) Negative mg/dL (Negative) 03/09/19 15:52 Urine Ketones Negative mg/dL (Negative) 03/09/19 15:52 Urine Blood Negative (Negative) 03/09/19 15:52 Urine Nitrite Negative (Negative) 03/09/19 15:52 Urine Bilirubin Negative (Negative) 03/09/19 15:52 Urine Urobilinogen < 2.0 mg/dL (<2.0) 03/09/19 15:52 Ur Leukocyte Esterase Negative (Negative) 03/09/19 15:52 Urine WBC (Auto) < 1.0 /HPF (0.0-6.0) 03/09/19 15:52 Urine RBC (Auto) 3.0 /HPF (0.0-6.0) 03/09/19 15:52 U Epithel Cells (Auto) 3.0 /HPF (0-13.0) 03/09/19 15:52 Urine Mucus Few /HPF 03/09/19 15:52 Urine Opiates Screen Presumptive negative 03/09/19 15:52 Urine Methadone Screen Presumptive negative 03/09/19 15:52 Ur Barbiturates Screen Presumptive negative 03/09/19 15:52 Ur Phencyclidine Scrn Presumptive negative 03/09/19 15:52 Ur Amphetamines Screen Presumptive negative 03/09/19 15:52 U Benzodiazepines Scrn Presumptive positive 03/09/19 15:52 Urine Cocaine Screen Presumptive positive 03/09/19 15:52 U Marijuana (THC) Screen Presumptive negative 03/09/19 15:52 Drugs of Abuse Note Disclamer 03/09/19 15:52 Plasma/Serum Alcohol < 0.01 % (0-0.07) 03/09/19 15:37 Active Medications - Current Medications Current Medications: Generic Name Dose Route Start Last Admin Trade Name Freq PRN Reason Stop Dose Admin Acetaminophen 650 mg 03/10/19 01:12 Tylenol PO Q4H PRN Pain MILD(1-3)/Fever >100.5/VILLAREAL Azithromycin 1,200 mg 03/10/19 10:00 Zithromax PO QWEEK GLEN Enoxaparin Sodium 40 mg 03/10/19 10:00 Lovenox SUB-Q QDAY@1000 GLEN Sodium Chloride 1,000 mls @ 125 mls/hr 03/10/19 02:00 03/10/19 02:56 Nacl 0.9% 1000 Ml IV 125 mls/hr DIRECT GLEN Administration Ceftriaxone Sodium 2 gm in 100 mls @ 200 mls/hr 03/10/19 02:00 03/10/19 02:56 Rocephin/Ns 2 Gm/100 Ml IV 200 mls/hr Q24H GLEN Administration Protocol Levetiracetam 500 mg 03/10/19 10:00 Keppra PO BID GLEN Levetiracetam 500 mg 03/10/19 10:00 Keppra PO BID GLEN Lorazepam 1 mg 03/10/19 04:40 Ativan IV Q4H PRN Seizures Miscellaneous Medication 1 each 03/10/19 10:00 Darunavir/Cobicistat (Nf) PO DAILY [facility] Miscellaneous Medication 1 each 03/10/19 10:00 Emtricitabine/Tenofov Alafenam PO DAILY [facility] Miscellaneous Medication 1,000 mg 03/10/19 10:00 Flaxseed Oil [Flaxseed Oil] PO DAILY [facility] Miscellaneous Medication 25 mg 03/10/19 10:00 Rilpivirine (Nf) PO QDAY [facility] Nystatin unit 03/10/19 10:00 Nystatin PO BID [facility] Ondansetron HCl 4 mg 03/10/19 01:12 Zofran IV Q8H PRN Nausea And Vomiting Sodium Chloride 10 ml 03/10/19 10:00 Sodium Chloride Flush Syringe 10 Ml IV BID [facility] Sodium Chloride 10 ml 03/10/19 01:12 Sodium Chloride Flush Syringe 10 Ml IV PRN PRN LINE FLUSH Trimethoprim/Sulfamethoxazole 1 each 03/10/19 10:00 Bactrim Ds PO QDAY [facility] Voriconazole 200 mg 03/10/19 08:00 Voriconazole PO Q12H [facility]
[2019-03-10] MEDS ORDERED: VORICONAZOLE 200 MG TAB PO SCH (08:00)
[2019-03-10] MEDS: NYSTATIN 500,000 UNIT/5 ML ORAL LIQD PO SCH ×2 (09:58→23:17)
[2019-03-10] MEDS: SULFAMETHOXAZOLE/TRIMETHOPRIM 800/160MG DS TAB PO SCH (09:58)
[2019-03-10] MEDS: ENOXAPARIN 40 MG/0.4 ML INJ SUB-Q SCH (09:58)
[2019-03-10] MEDS ORDERED: RILPIVIRINE 25 MG PO SCH (10:00)
[2019-03-10] MEDS ORDERED: FLAXSEED OIL 1000 MG PO SCH (10:00)
[2019-03-10] MEDS ORDERED: EMTRICITABINE PO SCH (10:00)
[2019-03-10] MEDS ORDERED: COBICISTAT PO SCH (10:00)
[2019-03-10] MEDS ORDERED: TENOFOV ALAFENAM PO SCH (10:00)
[2019-03-10] MEDS ORDERED: ENOXAPARIN 30 MG/0.3 ML INJ SUB-Q SCH (10:00)
[2019-03-10] MEDS ORDERED: levETIRAcetam 500 MG TAB PO SCH (10:00)
[2019-03-10] MEDS ORDERED: DARUNAVIR PO SCH (10:00)
[2019-03-10] MEDS: levETIRAcetam 500 MG TAB PO SCH ×2 (11:26→23:16)
--- NOTE | 2019-03-10 11:49 | Consultation ---
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 Patient is not the best historian but per EMS there was a report that he was walking and started feeling sick and began having a seizure. Patient fell and hit his head and sustained a abrasion to his temporal region. Patient started seizing again in the presence of EMS. Received 2.5 mg of Versed. Patient states he started using cocaine again. He reports he was seen by HIV clinic 2 weeks ago. States he has missed some doses of his ART. Denies headaches, fever, N/V/D, cough, SOB. He is supposed to be on Bactrim 1 DS PO q day, Azithromycin 1200mg PO qweek but he does not know. Last admission acute encephalopathy was felt to be possibly postictal given report of generalized seizure prior to admission. He also has underlying HIV encephalopathy. Was started on Keppra. MRI brain shows continued extensive cerebral white matter disease w/o evidence of acute infarction or significant interval change from 09/08/2018. h ereports he has gained weight. In the ED, temp 99.9-100.1, HR 9.6, R 14, BP 121/72. WBC 3.1. Creat 1.1. UA negative. Blood culture 03/10/[address] head +parenchimal volume loss. CT cervical and face no acute abnormalities. ID consulted for management of HIV and seizures. Review of Systems: limited Medications and Allergies Allergies Allergy/AdvReac Type Severity Reaction Status Date / Time No Known Allergies Allergy Verified 07/18/18 14:08 Home Medications Medication Instructions Recorded Confirmed Last Taken Type Sulfamethoxazole/Trimethoprim 1 each PO QDAY 30 Days #30 tablet 07/23/18 01/28/19 Unknown Rx [Bactrim DS TAB] Darunavir/Cobicistat (Nf) 1 each PO DAILY 01/28/19 01/28/19 Unknown History [Prezcobix 800 mg-150 mg (Nf)] Emtricitabine/Tenofov Alafenam 1 each PO DAILY 01/28/19 01/28/19 Unknown History [Descovy 200-25 mg (Nf)] Flaxseed Oil 1,000 mg PO DAILY 01/28/19 01/28/19 Unknown History Rilpivirine (Nf) [Edurant (Nf)] 25 mg PO QDAY 01/28/19 01/28/19 Unknown History Voriconazole [Vfend] 200 mg PO Q12H 01/28/19 01/28/19 Unknown History Azithromycin [Zithromax TAB] 1,200 mg PO QWEEK 30 Days #4 tablet 02/01/19 Unknown Rx Nystatin [Nystatin SUSP] 10 ml PO BID 30 Days #120 ml 02/01/19 Unknown Rx Sulfamethoxazole/Trimethoprim 1 each PO QDAY 30 Days #30 tablet 02/01/19 Unknown Rx [Bactrim DS TAB] Voriconazole 200 mg PO BID 30 Days #60 tablet 02/01/19 Unknown Rx Midodrine [Proamatine] 5 mg PO TID #90 tablet 02/03/19 Unknown Rx levETIRAcetam [Keppra TAB] 500 mg PO BID #60 tablet 02/03/19 Unknown Rx Active Meds: Active Medications Acetaminophen (Tylenol) 650 mg PO Q4H PRN PRN Reason: Pain MILD(1-3)/Fever >100.5/VILLAREAL Azithromycin (Zithromax) 1,200 mg PO QWEEK GLEN Enoxaparin Sodium (Lovenox) 40 mg SUB-Q QDAY@1000 GLEN Last Admin: 03/10/19 09:58 Dose: 40 mg Documented by: Sodium Chloride (Nacl 0.9% 1000 Ml) 1,000 mls @ 125 mls/hr IV DIRECT GLEN Last Admin: 03/10/19 02:56 Dose: 125 mls/hr Documented by: Ceftriaxone Sodium (Rocephin/Ns 2 Gm/100 Ml) 2 gm in 100 mls @ 200 mls/hr IV Q24H [facility]; Protocol Last Admin: 03/10/19 02:56 Dose: 200 mls/hr Documented by: Levetiracetam (Keppra) 500 mg PO BID [facility] Last Admin: 03/10/19 11:26 Dose: 500 mg Documented by: Lorazepam (Ativan) 1 mg IV Q4H PRN PRN Reason: Seizures Miscellaneous Medication (Darunavir/Cobicistat (Nf)) 1 each PO DAILY [facility] Miscellaneous Medication (Emtricitabine/Tenofov Alafenam) 1 each PO DAILY [facility] Miscellaneous Medication (Flaxseed Oil [Flaxseed Oil]) 1,000 mg PO DAILY [facility] Miscellaneous Medication (Rilpivirine (Nf)) 25 mg PO QDAY [facility] Nystatin (Nystatin) 500,000 unit PO BID [facility] Last Admin: 03/10/19 09:58 Dose: 500,000 unit Documented by: Ondansetron HCl (Zofran) 4 mg IV Q8H PRN PRN Reason: Nausea And Vomiting Sodium Chloride (Sodium Chloride Flush Syringe 10 Ml) 10 ml IV BID [facility] Last Admin: 03/10/19 11:26 Dose: 10 ml Documented by: Sodium Chloride (Sodium Chloride Flush Syringe 10 Ml) 10 ml IV PRN PRN PRN Reason: LINE FLUSH Trimethoprim/Sulfamethoxazole (Bactrim Ds) 1 each PO QDAY [facility] Last Admin: 03/10/19 09:58 Dose: 1 each Documented by: Voriconazole (Voriconazole) 200 mg PO Q12H [facility] Physical Examination - Physical Exam Narrative exam: General appearance: Alert in NAD Eyes: anicteric sclerae, moist conjunctivae; no lid-lag; PERRLA HENT: Atraumatic; oropharynx clear with moist mucous membranes and no mucosal ulcerations/no oral thrush; normal hard and soft palate. Lungs: CTA, with normal respiratory effort and no intercostal retractions CV: RRR no murmur Abdomen: Soft, non-tender; no masses or hepatosplenomegaly Extremities: no edema, no cyanosis Skin: No rash. Psych: low affect Neuro: alert and oriented x 3. Moving all extermities - Constitutional Vitals: Vital Signs Temp Pulse Resp BP Pulse Ox 99.5 F 66 16 106/71 95 10/03/19 05:15 03/10/19 05:15 03/10/19 05:15 03/10/19 05:15 03/10/19 09:48 Temperature -Last 24 Hours Temperature 99.5 F Temperature 100.1 F Temperature 100.1 F Temperature 99.9 F Results - Labs CBC & Chem 7: 03/10/19 04:35 03/10/19 04:35 Labs: Abnormal lab results 03/09/19 03/09/19 03/10/19 Range/Units 15:37 15:37 04:35 WBC 3.1 L (4.5-11.0) K/mm3 RBC 3.36 L 3.36 L (3.65-5.03) M/mm3 Hgb 9.6 L 9.6 L (11.8-15.2) gm/dl Hct 29.8 L 29.3 L (35.5-45.6) % RDW 16.9 H 16.5 H (13.2-15.2) % Lymph % (Auto) 12.8 L (13.4-35.0) % [place] % (Auto) 8.4 H (0.0-7.3) % Lymph # 0.7 L 0.9 L (1.2-5.4) K/mm3 Seg Neutrophils % 81.3 H (40.0-70.0) % Potassium 3.5 L (3.6-5.0) mmol/L Chloride 108.2 H (98-107) mmol/L BUN 6 L (9-20) mg/dL Glucose 136 H (75-100) mg/dL Calcium 8.2 L (8.4-10.2) mg/dL Albumin 3.7 L (3.9-5) g/dL 03/10/19 Range/Units 04:35 WBC (4.5-11.0) K/mm3 RBC (3.65-5.03) M/mm3 Hgb (11.8-15.2) gm/dl Hct (35.5-45.6) % RDW (13.2-15.2) % Lymph % (Auto) (13.4-35.0) % [place] % (Auto) (0.0-7.3) % Lymph # (1.2-5.4) K/mm3 Seg Neutrophils % (40.0-70.0) % Potassium (3.6-5.0) mmol/L Chloride (98-107) mmol/L BUN 8 L (9-20) mg/dL Glucose (75-100) mg/dL Calcium (8.4-10.2) mg/dL Albumin (3.9-5) g/dL Assessment and Plan Cultures: Blood culture 03/10/2019 pending. 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 Likely cocaine intoxication. Doubt bacterial or viral infections as he was fine, denies headaches or recent fever. Restarted snoring cocaine recently after quitting. 2) Fever: after seizures? should r/o aspiration. Initial CXR negative. 3) HIV/AIDS: on Descovy, Prezcobix, Rilpivirine (poor compliance), last CD4=14, VL= 668,000 on 02/02/2019 (previous CD4=11, VL= 8 millions in Jun 2018 ). Poor compliance on ART. Follows up with [place] [facility]. 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 CT head +parenchimal volume loss. Recommendations: Neuro consult Follow up blood cultures If fever continues will recheck CXR Continue home regimen Descovy, Prezcobix, Rilpivirine Continue OI prophylaxis with azithromycin and Bactrim OK to stop voriconazole as no evidence of thrush currently Follow-up HIV RNA PCR and CD4 count Anticipate discharge on Bactrim 1 DS PO q day, Azithromycin 1200mg PO qweek and Descovy, Prezcobix, Rilpivirine Follow-up with [facility] Will follow. Sofia Landrum MD Infectious Diseases [employer] Coordinator [facility] M [phone] O [phone]
[2019-03-10] MEDS ORDERED: AZITHROMYCIN 600 MG TAB PO SCH (13:00)
[2019-03-10] MEDS ORDERED: DARUNAVIR 800 MG TAB PO SCH (14:00)
[2019-03-10] MEDS: EMTRICITABINE/TENOFOVIR ALAFENAMIDE (NF) TAB PO SCH (15:36)
[2019-03-10] MEDS: RILPIVIRINE 25 MG PO SCH (15:37)
[2019-03-11] MEDS: cefTRIAXone/NS 2 GM/100 ML 2 GM/100 ML BAG IV SCH (01:50)
--- NOTE | 2019-03-11 10:21 | Discharge Summary ---
Providers - Providers Date of Admission: 03/09/19 23:53 Attending physician: GAVINO AQUINO MD 03/10/19 01:15 Consult to Physician [CONS] Routine Comment: calledoffice/ deejay Consulting Provider: DILLON BORDEN Physician Instructions: Reason For Exam: hiv, sz [facility] Hospital[facility] Condition: Fair Hospital course: 43-year-old man with past medical history of seizure disorder, HIV on retroviral's, admits to poor adherence to retroviral medications. . Patient was walking from [place], started feeling sick and having some prodrome after which she had a seizure and hit his head had an abrasion to the temporal region. He was found seizing by the EMS, he received Versed by EMS after which the seizures stopped. CT head; parenchymal volume loss greater than expected for age, no acute findings CT C-spine, no fracture subluxation new Chest x-ray negative Face CT negative Labs, mild anemia, hemoglobin 9.6, U tox positive for cocaine, UA negative Diagnosis Status epilepticus HIV/AIDS Nonadherence to medications Cocaine abuse Plan admitted non adherence to his AED at home, and his retrovirals he was restarted on all his meds, and advised to adhere to them Preventative health counseling performed for 17 minutes, counseled about drug cessation DVT prophylaxis early ambulation Disposition: - TO HOME OR SELFCARE Time spent for discharge: 33 mins Core Measure Documentation - Palliative Care Palliative Care/ Comfort Measures: Not Applicable - Core Measures Any of the following diagnoses?: none Exam - Constitutional Vitals: Temp Pulse Resp BP Pulse Ox 97.0 F L 55 L 16 102/69 99 03/11/19 05:38 03/11/19 05:38 03/11/19 05:38 03/11/19 05:38 03/11/19 05:38 General appearance: Present: no acute distress, well-nourished - EENT Eyes: Present: PERRL ENT: hearing intact, clear oral mucosa - Neck Neck: Present: supple, normal ROM - Respiratory Respiratory effort: normal Respiratory: bilateral: CTA - Cardiovascular Heart Sounds: Present: S1 & S2. Absent: rub, click - Extremities Extremities: pulses symmetrical, No edema Peripheral Pulses: within normal limits - Abdominal General gastrointestinal: Present: soft, non-tender, non-distended, normal bowel sounds Male genitourinary: Present: normal - Integumentary Integumentary: Present: clear, warm, dry - Musculoskeletal Musculoskeletal: gait normal, strength equal bilaterally - Psychiatric Psychiatric: appropriate mood/affect, intact judgment & insight - Neurologic Neurologic: CNII-XII intact, moves all extremities Plan Follow up with: RITA KENNEDYASHTON MD RUMA [Primary Care Provider] - 3-5 Days Prescriptions: Sulfamethoxazole/Trimethoprim [Bactrim DS TAB] 1 each PO QDAY 30 Days #30 tablet Emtricitabine/Tenofov Alafenam [Descovy 200-25 mg (Nf)] 1 each PO DAILY #30 tablet Rilpivirine (Nf) [Edurant (Nf)] 25 mg PO QDAY #30 levETIRAcetam [Keppra TAB] 500 mg PO BID #60 tablet Darunavir/Cobicistat (Nf) [Prezcobix 800 mg-150 mg (Nf)] 1 each PO DAILY #30 Darunavir [Prezista] 800 mg PO QDAY #30 tablet Azithromycin [Zithromax TAB] 1,200 mg PO QWEEK 30 Days #4 tablet
[2019-03-11] MEDS: levETIRAcetam 500 MG TAB PO SCH (10:36)
[2019-03-11] MEDS: NYSTATIN 500,000 UNIT/5 ML ORAL LIQD PO SCH (10:36)
[2019-03-11] MEDS: ENOXAPARIN 40 MG/0.4 ML INJ SUB-Q SCH (10:37)
[2019-03-11] MEDS: RILPIVIRINE 25 MG PO SCH (10:37)
[2019-03-11] MEDS: SULFAMETHOXAZOLE/TRIMETHOPRIM 800/160MG DS TAB PO SCH (10:38)
[2019-03-11] MEDS: EMTRICITABINE/TENOFOVIR ALAFENAMIDE (NF) TAB PO SCH (10:39)
[2019-03-11] MEDS ORDERED: DARUNAVIR 800 MG TAB PO SCH (11:00)
[2019-03-11] MEDS ORDERED: COBICISTAT 150 MG PO SCH (11:00)
[2019-03-11 12:53] VITALS: BP 103/69
--- NOTE | 2019-03-11 13:05 | Progress Note ---
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 Likely cocaine intoxication. Resolved. Doubt bacterial or viral infections as he was fine, denies headaches or recent fever. Restarted snoring cocaine recently after quitting. 2) Fever: after seizures? resolved; should r/o aspiration. Initial CXR negative. 3) HIV/AIDS: on Descovy, Prezcobix, Rilpivirine (poor compliance), last CD4=14, VL= 668,000 on 02/02/2019 (previous CD4=11, VL= 8 millions in Jun 2018 ). Poor compliance on ART. Follows up with [place] [facility]. 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 CT head +parenchimal volume loss. Recommendations: Neuro consult monitor fever Continue home regimen Descovy, Prezcobix, Rilpivirine Continue OI prophylaxis with azithromycin and Bactrim as per [facility] recommendations Follow-up HIV RNA PCR and CD4 count Anticipate discharge on Bactrim 1 DS PO q day, Azithromycin 1200mg PO qweek and Descovy, Prezcobix, Rilpivirine Follow-up with [facility] Ok to d/c from ID stand point Will follow. Sofia Ladnrum MD Infectious Diseases [employer] Vice President [facility] M [phone] O [phone] Subjective Date of service: 03/11/19 Principal diagnosis: HIV, seizures Interval history: Patient feels good, no fever, no headaches, no new seizures. Objective - Exam Narrative Exam: General appearance: Alert in NAD Eyes: anicteric sclerae, moist conjunctivae; no lid-lag; PERRLA HENT: Atraumatic; oropharynx clear with moist mucous membranes and no mucosal ulcerations/no oral thrush; normal hard and soft palate. Lungs: CTA, with normal respiratory effort and no intercostal retractions CV: RRR no murmur Abdomen: Soft, non-tender; no masses or hepatosplenomegaly Extremities: no edema, no cyanosis Skin: No rash. Psych: low affect Neuro: alert and oriented x 3. Moving all extermities - Constitutional Vitals: Vital Signs Temp Pulse Resp BP Pulse Ox 97.3 F L 66 18 103/69 98 03/11/19 11:55 03/11/19 11:55 03/11/19 11:55 03/11/19 11:55 03/11/19 11:55 Temperature -Last 24 Hours Temperature 97.3 F Temperature 97.0 F Temperature 97.0 F Temperature 98.8 F - Labs CBC & Chem 7: 03/10/19 04:35 03/10/19 04:35
[2019-03-15 13:20] LABS: HIV-1 RNA QN PCR 5.9 Log cps/mL
[2019-03-23 12:02] LABS: CD19, Absolute SEE SCANNED RESULT; CD3, Absolute SEE SCANNED RESULT; CD3, Percentage SEE SCANNED RESULT; CD4, Absolute SEE SCANNED RESULT; CD4, Percentage SEE SCANNED RESULT; CD4/CD8 Ratio SEE SCANNED RESULT; CD8, Absolute SEE SCANNED RESULT; CD8, Percentage SEE SCANNED RESULT; Lymphocytes, Absolute SEE SCANNED RESULT
== END 2019-03-11 15:38 | disposition home or self-care (01) | DRG 100 ==
LOC: ED 15:17 → 3A 23:53
PROVIDERS: ADMIT Internal Medicine; ATTEND Internal Medicine
DX: G40.901 Epilepsy, unspecified, not intractable, with status epilepticus (principal); B20 Human immunodeficiency virus [HIV] disease; R65.10 Systemic inflammatory response syndrome (SIRS) of non-infectious origin without acute organ dysfunction; F14.10 Cocaine abuse, uncomplicated; F17.200 Nicotine dependence, unspecified, uncomplicated; S09.90XA Unspecified injury of head, initial encounter; S09.93XA Unspecified injury of face, initial encounter; S00.81XA Abrasion of other part of head, initial encounter; Z91.14 Patient's other noncompliance with medication regimen; Z79.899 Other long term (current) drug therapy; Z82.49 Family history of ischemic heart disease and other diseases of the circulatory system; Z83.3 Family history of diabetes mellitus; Y93.89 Activity, other specified; Y92.89 Other specified places as the place of occurrence of the external cause; Y99.8 Other external cause status
CPT/HCPCS: 36415; 70450; 70486; 71045; 72125; 80048; 80053; 80307; 80320; 81001; 82024; 85025; 87040; 87116; 87536; 93005; 93010; 95819; 99406; G0378; G0480; J0696; J1650; J1953; J3246; J7030

== ENCOUNTER 2020-10-08 01:27 | Emergency (ER) | payer MEDICAID ==
[2020-10-08 01:43] VITALS: BP 118/70
--- NOTE | 2020-10-08 05:49 | Emergency Department Report ---
Chief Complaint: Medical Clearance Stated Complaint: SEEKING ADDICTION HELP - HPI History of Present Illness: 44-year-old -[place] male presents to the emergency room stating that he was kicked out of his place told to come here. - Exam Vital Signs: Vital Signs 10/08/20 01:37 Temperature 98.4 F Pulse Rate 102 H Respiratory 18 Rate Blood Pressure 118/70 O2 Sat by Pulse 97 Oximetry Physical Exam: General: Awake, appropriately interactive, no acute distress. Neck: Supple. Full range of motion intact. Cardiovascular: Normal peripheral perfusion. Pulmonary: No respiratory distress. Patient is speaking normally without use of accessory muscles. Skin: No apparent rashes or lesions. Neurological: No facial asymmetry. Speech is clear. Follows commands. Patient is alert and oriented. Musculoskeletal: Full range of motion, no crepitus. No tenderness to palpate nonerythematous no edema test appreciated. Able to bear weight and ambulate without difficulty. Distal neurovascular and motor/sensory function is intact. Psych: Cooperative. Appropriate mood and affect. MSE screening note: Focused history and physical exam performed. Due to findings the following was ordered: Patient is given number to [place]. ED Disposition for MSE Condition: Stable
--- NOTE | 2020-10-08 06:01 | Emergency Department Report ---
ED Medical Clearance HPI - General Chief complaint: Medical Clearance Stated complaint: SEEKING ADDICTION HELP Source: patient Mode of arrival: Wheelchair - History of Present Illness Initial comments: 44-year-old -Finnish male presents to the emergency room stating that he was kicked out of his place told to come here. Patient reports that he drinks alcohol smokes weed. Denies any suicidal homicidal ideation. Patient denies any pain. MD Complaint: medical clearance request Home medications: Previous Rx's Medication Instructions Recorded Last Taken Type Azithromycin [Zithromax TAB] 1,200 mg PO QWEEK 30 Days #4 tablet 03/11/19 Unknown Rx Darunavir [Prezista] 800 mg PO QDAY #30 tablet 03/11/19 Unknown Rx Darunavir/Cobicistat (Nf) 1 each PO DAILY #30 03/11/19 Unknown Rx [Prezcobix 800 mg-150 mg (Nf)] Emtricitabine/Tenofov Alafenam 1 each PO DAILY #30 tablet 03/11/19 Unknown Rx [Descovy 200-25 mg (Nf)] Rilpivirine (Nf) [Edurant (Nf)] 25 mg PO QDAY #30 03/11/19 Unknown Rx Sulfamethoxazole/Trimethoprim 1 each PO QDAY 30 Days #30 tablet 03/11/19 Unknown Rx [Bactrim DS TAB] levETIRAcetam [Keppra TAB] 500 mg PO BID #60 tablet 03/11/19 Unknown Rx Ibuprofen [Motrin 800 MG tab] 800 mg PO Q8HR PRN #15 tablet 10/13/20 Unknown Rx Allergies/Adverse reactions: Allergies Allergy/AdvReac Type Severity Reaction Status Date / Time No Known Allergies Allergy Verified 07/18/18 14:08 ED Review of Systems ROS: Stated complaint: SEEKING ADDICTION HELP Other details as noted in HPI Comment: All other systems reviewed and negative ED Past Medical Hx - Past Medical History Previous Medical History?: Yes Hx Congestive Heart Failure: No Hx Diabetes: No Hx Deep Vein Thrombosis: No Hx Seizures: Yes Hx Asthma: No Hx COPD: No Hx Tuberculosis: No Hx HIV: Yes - Surgical History Past Surgical History?: No Hx Pacemaker: No Hx Internal Defibrillator: No - Social History Smoking Status: Current Every Day Smoker Substance Use Type: Alcohol - Medications Home Medications: Home Medications Medication Instructions Recorded Confirmed Last Taken Type Azithromycin [Zithromax TAB] 1,200 mg PO QWEEK 30 Days #4 tablet 03/11/19 Unknown Rx Darunavir [Prezista] 800 mg PO QDAY #30 tablet 03/11/19 Unknown Rx Darunavir/Cobicistat (Nf) 1 each PO DAILY #30 03/11/19 Unknown Rx [Prezcobix 800 mg-150 mg (Nf)] Emtricitabine/Tenofov Alafenam 1 each PO DAILY #30 tablet 03/11/19 Unknown Rx [Descovy 200-25 mg (Nf)] Rilpivirine (Nf) [Edurant (Nf)] 25 mg PO QDAY #30 03/11/19 Unknown Rx Sulfamethoxazole/Trimethoprim 1 each PO QDAY 30 Days #30 tablet 03/11/19 Unknown Rx [Bactrim DS TAB] levETIRAcetam [Keppra TAB] 500 mg PO BID #60 tablet 03/11/19 Unknown Rx Ibuprofen [Motrin 800 MG tab] 800 mg PO Q8HR PRN #15 tablet 10/13/20 Unknown Rx ED Physical Exam - General Limitations: No Limitations, Physical Limitation (Is using a Rollator walker) General appearance: alert, in no apparent distress - Head Head exam: Present: atraumatic, normocephalic - Eye Eye exam: Present: normal appearance - ENT ENT exam: Present: mucous membranes moist - Neck Neck exam: Present: normal inspection - Respiratory Respiratory exam: Present: normal lung sounds bilaterally. Absent: respiratory distress - Cardiovascular Cardiovascular Exam: Present: regular rate, normal rhythm. Absent: systolic mu rmur, diastolic murmur, rubs, gallop - GI/Abdominal GI/Abdominal exam: Present: soft, normal bowel sounds - Rectal Rectal exam: Present: deferred - Extremities Exam Extremities exam: Present: normal inspection - Back Exam Back exam: Present: normal inspection - Neurological Exam Neurological exam: Present: alert, oriented X3 - Psychiatric Psychiatric exam: Present: normal affect, normal mood - Skin Skin exam: Present: warm, dry, intact, normal color. Absent: rash ED Course Vital Signs 10/08/20 01:37 Temperature 98.4 F Pulse Rate 102 H Respiratory 18 Rate Blood Pressure 118/70 O2 Sat by Pulse 97 Oximetry ED Medical Decision Making - Lab Data Result diagrams: 10/08/20 06:00 10/08/20 06:00 - Medical Decision Making 44-year-old -Finnish male presents to the emergency room stating that he was kicked out of his place told to come here. Patient reports that he drinks alcohol smokes weed. Denies any suicidal homicidal ideation. Patient denies any pain. ED Disposition Clinical Impression: Medical clearance for psychiatric admission Disposition: DC-01 TO HOME OR SELFCARE Is pt being admited?: No Does the pt Need Aspirin: No Condition: Stable Additional Instructions: You are medically cleared for psychiatric admission/detox admission Referrals: MD DANYEL [Other] - 3-5 Days
[2020-10-08 06:29] LABS: Hematocrit 29.2 % (35.5-45.6); Hemoglobin 9.3 gm/dl (11.8-15.2); Mean Corpuscular HGB Conc 32 % (32-34); Mean Corpuscular Volume 105 fl (84-94); Platelet Count 241 K/mm3 (140-440); Red Blood Count 2.78 M/mm3 (3.65-5.03); Red Cell Distribution Width 14.3 % (13.2-15.2)
[2020-10-08 06:43] LABS: Alanine Aminotransferase 16 units/L (7-56); Albumin 3.6 g/dL (3.9-5); BUN/Creatinine Ratio 10; Blood Urea Nitrogen 12 mg/dL (9-20); Calcium 8.2 mg/dL (8.4-10.2); Hemolysis Index 1
[2020-10-08 07:13] LABS: Smudge Cells Few; Total Cells Counted 100
[2020-10-08 07:14] LABS: Anisocytosis 1+; Platelet Estimate Consistent w Auto
[2020-10-08 11:26] LABS: Bilirubin,Urine SM (Negative); Blood,Urine NEG (Negative); Color,Urine Amber (Yellow); Mucus,Urine FEW /HPF
[2020-10-08 11:32] LABS: Amphetamine Screen,Urine Negative; Benzodiazepines Screen,Urine Negative; Methadone Screen,Urine Negative; Opiate Screen,Urine Negative
[2020-10-08 11:44] LABS: Ictotest,Urine Negative (Negative)
[2020-10-08 11:57] LABS: Cannabinoid Screen,Urine PRESUMPTIVE POSITIVE; Cocaine Screen,Urine PRESUMPTIVE POSITIVE
== END 2020-10-08 15:01 | disposition home or self-care (01) ==
LOC: ED 01:27
DX: F10.20 Alcohol dependence, uncomplicated (principal); F17.200 Nicotine dependence, unspecified, uncomplicated; R56.9 Unspecified convulsions; Z71.51 Drug abuse counseling and surveillance of drug abuser; Z79.899 Other long term (current) drug therapy
CPT/HCPCS: 36415; 80053; 80307; 80320; 81001; 85007; 85025; G0480

== ENCOUNTER 2020-10-13 03:01 | Emergency (ER) | payer MEDICAID ==
[2020-10-13 03:10] VITALS: BP 119/70
[2020-10-13] MEDS ORDERED: IBUPROFEN 800 MG TAB PO ONE (05:30)
[2020-10-13] MEDS ORDERED: ACETAMINOPHEN 500 MG TAB PO STA (05:30)
--- NOTE | 2020-10-13 05:34 | Emergency Department Report ---
ED General Adult HPI - General Chief complaint: Extremity Injury, Lower Stated complaint: BILATERAL KNEE PAIN Time Seen by Provider: 10/13/20 05:06 Source: patient Mode of arrival: Ambulatory Limitations: No Limitations - History of Present Illness Initial comments: 44-year-old -[place] male patient presents with complaints of right knee pain after a fall injury today. He reports an abrasion to his knee and rates his pain as a 7/10 in severity. Pain worsens with ambulation per patient. He states he has been ambulating with a walker. No numbness/tingling or weakness in his knee or difficulty moving the knee per patient. He reports his tetanus vaccine is up-to-date within the last 5 years -: Sudden - Related Data Previous Rx's Medication Instructions Recorded Last Taken Type Azithromycin [Zithromax TAB] 1,200 mg PO QWEEK 30 Days #4 tablet 03/11/19 Unknown Rx Darunavir [Prezista] 800 mg PO QDAY #30 tablet 03/11/19 Unknown Rx Darunavir/Cobicistat (Nf) 1 each PO DAILY #30 03/11/19 Unknown Rx [Prezcobix 800 mg-150 mg (Nf)] Emtricitabine/Tenofov Alafenam 1 each PO DAILY #30 tablet 03/11/19 Unknown Rx [Descovy 200-25 mg (Nf)] Rilpivirine (Nf) [Edurant (Nf)] 25 mg PO QDAY #30 03/11/19 Unknown Rx Sulfamethoxazole/Trimethoprim 1 each PO QDAY 30 Days #30 tablet 03/11/19 Unknown Rx [Bactrim DS TAB] levETIRAcetam [Keppra TAB] 500 mg PO BID #60 tablet 03/11/19 Unknown Rx Ibuprofen [Motrin 800 MG tab] 800 mg PO Q8HR PRN #15 tablet 10/13/20 Unknown Rx Allergies Allergy/AdvReac Type Severity Reaction Status Date / Time No Known Allergies Allergy Verified 07/18/18 14:08 ED Review of Systems ROS: Stated complaint: BILATERAL KNEE PAIN Other details as noted in HPI Musculoskeletal: arthralgia. denies: joint swelling Skin: as per HPI. denies: change in color Neurological: denies: numbness, paresthesias ED Past Medical Hx - Past Medical History Previous Medical History?: Yes Hx Congestive Heart Failure: No Hx Diabetes: No Hx Deep Vein Thrombosis: No Hx Seizures: Yes Hx Asthma: No Hx COPD: No Hx Tuberculosis: No Hx HIV: Yes - Surgical History Past Surgical History?: No Hx Pacemaker: No Hx Internal Defibrillator: No - Social History Smoking Status: Current Every Day Smoker Substance Use Type: None - Medications Home Medications: Home Medications Medication Instructions Recorded Confirmed Last Taken Type Azithromycin [Zithromax TAB] 1,200 mg PO QWEEK 30 Days #4 tablet 03/11/19 Unknown Rx Darunavir [Prezista] 800 mg PO QDAY #30 tablet 03/11/19 Unknown Rx Darunavir/Cobicistat (Nf) 1 each PO DAILY #30 03/11/19 Unknown Rx [Prezcobix 800 mg-150 mg (Nf)] Emtricitabine/Tenofov Alafenam 1 each PO DAILY #30 tablet 03/11/19 Unknown Rx [Descovy 200-25 mg (Nf)] Rilpivirine (Nf) [Edurant (Nf)] 25 mg PO QDAY #30 03/11/19 Unknown Rx Sulfamethoxazole/Trimethoprim 1 each PO QDAY 30 Days #30 tablet 03/11/19 Unknown Rx [Bactrim DS TAB] levETIRAcetam [Keppra TAB] 500 mg PO BID #60 tablet 03/11/19 Unknown Rx Ibuprofen [Motrin 800 MG tab] 800 mg PO Q8HR PRN #15 tablet 10/13/20 Unknown Rx ED Physical Exam - General Limitations: No Limitations General appearance: alert, in no apparent distress - Head Head exam: Present: atraumatic, normocephalic - Eye Eye exam: Absent: scleral icterus - Respiratory Respiratory exam: Absent: respiratory distress - Cardiovascular Cardiovascular Exam: Present: regular rate - Expanded Lower Extremity Exam Right Knee exam: Present: full ROM, tenderness (Anterior), abrasion. Absent: laceration, ecchymosis, deformity, crepidus, dislocation, erythema, effusion Lower Leg exam: Present: normal inspection Ankle exam: Present: normal inspection Neuro vascular tendon exam: Present: no vascular compromise Gait: Positive: antalgic - Neurological Exam Neurological exam: Present: alert, oriented X3 - Psychiatric Psychiatric exam: Present: normal affect, normal mood - Skin Skin exam: Present: warm, dry, intact, normal color. Absent: rash ED Course Vital Signs 10/13/20 03:08 Temperature 97.7 F Pulse Rate 93 H Respiratory 20 Rate Blood Pressure 119/70 O2 Sat by Pulse 98 Oximetry ED Medical Decision Making - Radiology Data Radiology results: report reviewed RIGHT KNEE 3 VIEWS INDICATION / CLINICAL INFORMATION: anterior pain after fall COMPARISON: None available. FINDINGS: BONES / JOINT(S): No acute fracture or subluxation. No significant arthritis. SOFT TISSUES: No significant abnormality. ADDITIONAL FINDINGS: None. - Medical Decision Making Knee x-rays negative for any acute bony abnormalities. Will treat for knee sprain with NSAIDs and rice method. Recommend follow-up with primary care as needed. Strict return precautions discussed in detail with patient who verbalizes understanding peer Critical care attestation.: If time is entered above; I have spent that time in minutes in the direct care of this critically ill patient, excluding procedure time. ED Disposition Clinical Impression: Right knee injury Qualifiers: Encounter type: initial encounter Qualified Code(s): S89.91XA - Unspecified injury of right lower leg, initial encounter Disposition: DC- TO HOME OR SELFCARE Is pt being admited?: No Does the pt Need Aspirin: No Condition: Stable Instructions: Knee Sprain, Adult, [id number] Prescriptions: Ibuprofen [Motrin 800 MG tab] 800 mg PO Q8HR PRN #15 tablet PRN Reason: pain Referrals: PRIMARY CARE, [Primary Care Provider] - 3-5 Days
--- NOTE | 2020-10-13 06:15 | XRay Report ---
RIGHT KNEE 3 VIEWS INDICATION / CLINICAL INFORMATION: anterior pain after fall COMPARISON: None available. FINDINGS: BONES / JOINT(S): No acute fracture or subluxation. No significant arthritis. SOFT TISSUES: No significant abnormality. ADDITIONAL FINDINGS: None. Signer Name: David Zhou MD Signed: 10/13/2020 6:11 AM Workstation Name: [id number]
== END 2020-10-13 06:41 | disposition home or self-care (01) ==
LOC: ED 03:01
DX: S89.91XA Unspecified injury of right lower leg, initial encounter (principal); R56.9 Unspecified convulsions; F17.200 Nicotine dependence, unspecified, uncomplicated; Z79.899 Other long term (current) drug therapy; Z79.1 Long term (current) use of non-steroidal anti-inflammatories (NSAID); Z79.2 Long term (current) use of antibiotics; X58.XXXA Exposure to other specified factors, initial encounter; Y93.89 Activity, other specified; Y92.89 Other specified places as the place of occurrence of the external cause; Y99.8 Other external cause status

== ENCOUNTER 2020-10-14 14:17 | Emergency (ER) | payer MEDICAID ==
[2020-10-14 15:04] VITALS: BP 124/69
--- NOTE | 2020-10-14 15:04 | Emergency Department Report ---
Blank Doc - Documentation Documentation: 44-year-old male that was sent by mother for alcohol and drug abuse. Patient otherwise denies any SI or HI. 1- This initial assessment/diagnostic orders/clinical plan/ treatment(s) is/are subject to change based on pt's health status, clinical progression and re- assessment by fellow clinical providers in the ED. Further treatment and workup at subsequent clinical provers discretion. Patient/guardians urged not to elope from ED as their condition may be serious if not clinically assessed and managed. 2-psych eval
[2020-10-14 16:09] LABS: Hematocrit 28.1 % (35.5-45.6); Hemoglobin 9.2 gm/dl (11.8-15.2); Mean Corpuscular HGB Conc 33 % (32-34); Mean Corpuscular Volume 104 fl (84-94); Platelet Count 244 K/mm3 (140-440); Red Cell Distribution Width 14.3 % (13.2-15.2)
[2020-10-14 16:49] LABS: BUN/Creatinine Ratio 13; Blood Urea Nitrogen 15 mg/dL (9-20); Calcium 8.2 mg/dL (8.4-10.2); Hemolysis Index 4
[2020-10-14 17:22] LABS: Total Cells Counted 100
[2020-10-14 17:23] LABS: Anisocytosis 1+; Smudge Cells Few
== END 2020-10-14 22:28 | disposition left against medical advice (07) ==
LOC: ED 14:17
DX: F10.10 Alcohol abuse, uncomplicated (principal); Z53.21 Procedure and treatment not carried out due to patient leaving prior to being seen by health care provider; Y90.9 Presence of alcohol in blood, level not specified
CPT/HCPCS: 36415; 80048; 80320; 85007; 85025; G0480

== ENCOUNTER 2020-10-24 23:52 | Emergency (ER) | payer MEDICAID | END 2020-10-25 06:00 | disposition left against medical advice (07) | LOC: ED 23:52 ==

== ENCOUNTER 2020-10-25 21:43 | Emergency (ER) | payer MEDICAID ==
[2020-10-25 23:37] VITALS: BP 124/67
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
== END 2020-10-26 16:30 | disposition home or self-care (01) ==
LOC: ED 21:43
DX: Z13.9 Encounter for screening, unspecified (principal); Z71.89 Other specified counseling; Z79.899 Other long term (current) drug therapy; Z21 Asymptomatic human immunodeficiency virus [HIV] infection status; Z86.69 Personal history of other diseases of the nervous system and sense organs
CPT/HCPCS: 99282